=== PATIENT | male | born 1955 | race African-American/Black ===

== ENCOUNTER 2016-05-05 13:28 | Inpatient (IN) | payer OTHER ==
[2016-05-05] VITALS (7 sets, daily range): BP systolic 146–219; BP diastolic 79–135; PULSE 62–128; RESP 16–22; TEMP 97.2–98.2; O2SAT 96–100
[~2016-05-05] VITALS: Ht 180.3 cm; Wt 131.5 kg
[~2016-05-05 13:28] MED LIST: 1-ME1LIQ PO; ALDA100T PO; CEPH500T PO; CLOP75 PO; COZA100T PO; GLUCTAB PO; HYDR10SO PO; HYDR25TA35 PO; HYDR50TA15 PO; NAPR220T95 PO; OMEP20TA PO
[2016-05-05] MEDS ORDERED: AMLO5 PO (13:53)
[2016-05-05] MEDS ORDERED: HYDR25TA5 PO (13:53)
[2016-05-05] MEDS ORDERED: SPIR50TA PO (13:53)
[2016-05-05] MEDS ORDERED: METF500T PO (13:54)
--- NOTE | 2016-05-05 13:55 | PD ---
HPI Chief Complaint: Chest Pain Time Seen by Provider: 13:52 Travel History International Travel<30 days: No Contact w/Intl Traveler<30days: No Traveled to known affect area: No History of Present Illness HPI This report is in ERROR Please disregard this report and all prior copies ! This report is in ERROR Please disregard this report and all prior copies ! This report is in ERROR Please disregard this report and all prior copies ! PFSH Past Medical History Blood Disorders: No Cancer: No Cardiovascular Problems: Yes Congestive Heart Failure: Yes Diabetes: Yes Endocrine: Yes Genitourinary: No Hypertension: Yes Immune Disorder: No Musculoskeletal: No Neurologic: No Psychiatric: No Reproductive: No Respiratory: No Social History Alcohol Use: No Tobacco Use: No Substance Use: No Allergies-Medications (Allergen,Severity, Reaction): Coded Allergies: Penicillin (Verified Allergy, Mild, "I GO CRAZY", 09/01/15) Reported Meds & Prescriptions Reported Meds & Active Scripts Active Reported Plavix (Clopidogrel Bisulfate) 75 Mg Tab 75 Mg PO DAILY Metformin (Metformin HCl) 500 Mg Tab 500 Mg PO TIDPC With meals Spironolactone 50 Mg Tab Unknown Dose PO BIDPC Hydrochlorothiazide 25 Mg Tab 25 Mg PO DAILY Norvasc (Amlodipine Besylate) 5 Mg Tab Unknown Dose PO DAILY Review of Systems Except as stated in HPI: all other systems reviewed are Neg Physical Exam Narrative This report is in ERROR Please disregard this report and all prior copies ! This report is in ERROR Please disregard this report and all prior copies ! This report is in ERROR Please disregard this report and all prior copies ! Data Data Last Documented VS Vital Signs Date Time Temp Pulse Resp B/P Pulse Ox O2 Delivery O2 Flow Rate FiO2 05/05/16 14:00 97 Nasal Cannula 2 05/05/16 13:31 98.2 128 22 219/135 Orders Electrocardiogram (05/05/16 13:34) Complete Blood Count With Diff (05/05/16 13:34) Basic Metabolic Panel (Bmp) (05/05/16 13:34) Ckmb (Isoenzyme) Profile (05/05/16 13:34) Troponin I (05/05/16 13:34) Prothrombin Time / Inr (Pt) (05/05/16 13:46) Act Partial Throm Time (Ptt) (05/05/16 13:46) D-Dimer (05/05/16 13:46) Thyroid Stimulating Hormone (05/05/16 13:46) Chest, Single Ap (05/05/16 13:46) Aspirin (Aspirin) (05/05/16 14:00) B-Type Natriuretic Peptide (05/05/16 13:51) Ecg Monitoring (05/05/16 13:51) Bilateral Bp Monitoring (05/05/16 13:51) Iv Access Insert/Monitor (05/05/16 13:51) Oximetry (05/05/16 13:51) Oxygen Administration (05/05/16 13:51) Nitroglycerin Sl (Nitrostat Sl) (05/05/16 14:00) Heparin Inj (Heparin Inj) (05/05/16 13:57) Heparin Inj (Heparin Inj) (05/05/16 14:00) Heparin-Ns/Pf Inj (Heparin-Ns/Pf Inj) (05/05/16 14:06) Admit Order (Ed Use Only) (05/05/16 14:07) MDM Medical Decision Making Medical Screen Exam Complete: Yes Emergency Medical Condition: Yes Medical Record Reviewed: Yes Differential Diagnosis This report is in ERROR Please disregard this report and all prior copies ! This report is in ERROR Please disregard this report and all prior copies ! This report is in ERROR Please disregard this report and all prior copies ! Narrative Course This report is in ERROR Please disregard this report and all prior copies ! This report is in ERROR Please disregard this report and all prior copies ! This report is in ERROR Please disregard this report and all prior copies ! Geo Mullen May 05, 2016 13:55
[2016-05-05] MEDS ORDERED: HEPARIN SODIUM - IV 10,000 UNITS/10 ML VIAL ONE ×3 (13:57→15:54)
[2016-05-05] MEDS ORDERED: PLAV75TA29 PO (13:59)
[2016-05-05] MEDS ORDERED: HEPARIN SODIUM - IV 10,000 UNITS/10 ML VIAL IV ONE (14:00)
[2016-05-05] MEDS ORDERED: ASPIRIN 325 MG TAB PO ONE (14:00)
[2016-05-05] MEDS ORDERED: NITROGLYCERIN 0.4 MG SL 25 TABS/BTL SL ONE (14:00)
[2016-05-05] MEDS ORDERED: HEPARIN-NS/PF INJ 500 ML ONE (14:06)
--- NOTE | 2016-05-05 14:18 | RADRPT ---
EXAM DATE/TIME: 05/05/2016 14:02 [facility] COMPARISON: No previous studies available for comparison. INDICATIONS : STEMI ALERT. Chest pain. MEDICAL HISTORY : Diabetic SURGICAL HISTORY : Lumbar surgery. ENCOUNTER: Initial ACUITY: 1 day PAIN SCORE: 7/10 LOCATION: Bilateral chest FINDINGS: The cardiac silhouette is enlarged in transverse diameter. The lungs are free of acute parenchymal op acity. No effusions are identified. Osseous structures are intact. CONCLUSION: Cardiomegaly. No acute cardiopulmonary disease. Bobby Lamas MD on May 05, 2016 at 14:16 Board Certified Radiologist. This report was verified electronically.
[2016-05-05] MEDS ORDERED: IOHEXOL 350 MG/ML 100 ML BTL (for Cath Lab) OTHER ONE (14:20)
[2016-05-05] MEDS ORDERED: IOHEXOL 350 MG/ML 50 ML BTL (for Cath Lab) OTHER ONE (14:20)
[2016-05-05 14:28] LABS: AUTOMATED NEUTROPHIL # 4.8 TH/MM3 (1.8-7.7); BASOPHIL % 0.2 % (0.0-2.0); EOSINOPHIL # 0.1 TH/MM3 (0-0.4); EOSINOPHIL % 1.1 % (0.0-4.0); HEMATOCRIT 44.8 % (39.0-51.0); HEMO FLAGS DIFF FINAL; LYMPH % 22.8 % (9.0-44.0); LYMPHOCYTE # 1.6 TH/MM3 (1.0-4.8); MEAN CELL VOLUME 87.6 FL (80.0-100.0); MEAN CORPUSCULAR HEMOGLOBIN 29.1 PG (27.0-34.0); MEAN CORPUSCULAR HGB CONC 33.2 % (32.0-36.0); MONO % 5.8 % (0.0-8.0); NEUT % 70.1 % (16.0-70.0); PLATELET COUNT 225 TH/MM3 (150-450); RED BLOOD COUNT 5.12 MIL/MM3 (4.50-5.90); RED CELL DISTRIBUTION WIDTH 14.8 % (11.6-17.2); WHITE BLOOD COUNT 6.9 TH/MM3 (4.0-11.0)
--- NOTE | 2016-05-05 14:29 | PD ---
HPI Chief Complaint: Chest Pain Time Seen by Provider: 13:46 Travel History International Travel<30 days: No Contact w/Intl Traveler<30days: No Traveled to known affect area: No History of Present Illness HPI 61-year-old male came to the emergency room brought by his with history of chest pressure, syncopal episode, diaphoresis that's been going on since this morning. Patient says that he had the chest pain starting this morning along with shortness of breath. The chest pain was getting worse and at one point he passed out. Currently he has a chest pain like a pressure and it is 7 out of 10. Patient has history of coronary artery disease and says that he had a cardiac catheterization done 7 years ago. He says it was done by Dr. Morales. He is not sure whether he had a stent put in. Patient's blood pressure here is 180/95. Heart rate is in 120s. PFSH Past Medical History Narrative Medical List of his past medical history as reviewed from the nursing note. Blood Disorders: No Cancer: No Cardiovascular Problems: Yes Congestive Heart Failure: Yes Diabetes: Yes Patient Takes Glucophage: Yes Endocrine: Yes Genitourinary: No Hypertension: Yes Immune Disorder: No Musculoskeletal: No Neurologic: No Psychiatric: No Reproductive: No Respiratory: No Myocardial Infarction: Yes Past Surgical History Other Surgery: Yes (meniscus fix, back surgery) Social History Alcohol Use: No Tobacco Use: No Substance Use: No Allergies-Medications (Allergen,Severity, Reaction): Coded Allergies: Penicillin (Verified Allergy, Mild, "I GO CRAZY", 09/01/15) Comments List of his allergies reviewed from the nursing note. Reported Meds & Prescriptions Reported Meds & Active Scripts Active Reported Plavix (Clopidogrel Bisulfate) 75 Mg Tab 75 Mg PO DAILY Metformin (Metformin HCl) 500 Mg Tab 500 Mg PO TIDPC With meals Spironolactone 50 Mg Tab Unknown Dose PO BIDPC Hydrochlorothiazide 25 Mg Tab 25 Mg PO DAILY Norvasc (Amlodipine Besylate) 5 Mg Tab Unknown Dose PO DAILY Narrative Medication List of his home medications reviewed from the nursing note. Review of Systems Except as stated in HPI: all other systems reviewed are Neg Physical Exam Narrative GENERAL: Awake, alert, anxious, moderate distress, morbidly obese SKIN: Warm and dry. HEAD: Atraumatic. Normocephalic. EYES: Pupils equal and round. No scleral icterus. No injection or drainage. ENT: No nasal bleeding or discharge. Mucous membranes pink and moist. NECK: Trachea midline. No JVD. CARDIOVASCULAR: Regular rate and rhythm. Tachycardia. No murmur appreciated. RESPIRATORY: No accessory muscle use. Clear to auscultation. Breath sounds equal bilaterally. GASTROINTESTINAL: Abdomen soft, non-tender, nondistended. Hepatic and splenic margins not palpable. MUSCULOSKELETAL: No obvious deformities. No clubbing. No cyanosis. No edema. NEUROLOGICAL: Awake and alert. No obvious cranial nerve deficits. Motor grossly within normal limits. Normal speech. PSYCHIATRIC: Appropriate mood and affect; insight and judgment normal. Data Data Last Documented VS Vital Signs Date Time Temp Pulse Resp B/P Pulse Ox O2 Delivery O2 Flow Rate FiO2 05/05/16 14:00 97 Nasal Cannula 2 05/05/16 13:31 98.2 128 22 219/135 Orders Electrocardiogram (05/05/16 13:34) Complete Blood Count With Diff (05/05/16 13:34) Basic Metabolic Panel (Bmp) (05/05/16 13:34) Ckmb (Isoenzyme) Profile (05/05/16 13:34) Troponin I (05/05/16 13:34) Prothrombin Time / Inr (Pt) (05/05/16 13:46) Act Partial Throm Time (Ptt) (05/05/16 13:46) D-Dimer (05/05/16 13:46) Thyroid Stimulating Hormone (05/05/16 13:46) Chest, Single Ap (05/05/16 13:46) Aspirin (Aspirin) (05/05/16 14:00) B-Type Natriuretic Peptide (05/05/16 13:51) Ecg Monitoring (05/05/16 13:51) Bilateral Bp Monitoring (05/05/16 13:51) Iv Access Insert/Monitor (05/05/16 13:51) Oximetry (05/05/16 13:51) Oxygen Administration (05/05/16 13:51) Nitroglycerin Sl (Nitrostat Sl) (05/05/16 14:00) Heparin Inj (Heparin Inj) (05/05/16 13:57) Heparin Inj (Heparin Inj) (05/05/16 14:00) Heparin-Ns/Pf Inj (Heparin-Ns/Pf Inj) (05/05/16 14:06) Admit Order (Ed Use Only) (05/05/16 14:07) I-Stat Creatinine (05/05/16 13:46) I-Stat Profile (05/05/16 13:46) CKMB (05/05/16 13:35) CKMB% (05/05/16 13:35) Labs Laboratory Tests Test 05/05/16 13:35 White Blood Count 6.9 TH/MM3 Red Blood Count 5.12 MIL/MM3 Hemoglobin 14.9 GM/DL Bedside Hemoglobin 15.6 G/DL Hematocrit 44.8 % Bedside Hematocrit 46.0 % Mean Corpuscular Volume 87.6 FL Mean Corpuscular Hemoglobin 29.1 PG Mean Corpuscular Hemoglobin 33.2 % Concent Red Cell Distribution Width 14.8 % Platelet Count 225 TH/MM3 Mean Platelet Volume 8.6 FL Neutrophils (%) (Auto) 70.1 % Lymphocytes (%) (Auto) 22.8 % Monocytes (%) (Auto) 5.8 % Eosinophils (%) (Auto) 1.1 % Basophils (%) (Auto) 0.2 % Neutrophils # (Auto) 4.8 TH/MM3 Lymphocytes # (Auto) 1.6 TH/MM3 Monocytes # (Auto) 0.4 TH/MM3 Eosinophils # (Auto) 0.1 TH/MM3 Basophils # (Auto) 0.0 TH/MM3 CBC Comment DIFF FINAL Differential Comment Prothrombin Time 10.6 SEC Prothromb Time International 1.0 RATIO Ratio Activated Partial 26.1 SEC Thromboplast Time D-Dimer Quantitative (PE/DVT) 0.35 MG/L FEU Bedside Sodium 141 MMOL/L Sodium Level 141 MEQ/L Bedside Potassium 3.5 MMOL/L Potassium Level 3.6 MEQ/L Bedside Chloride 102 MMOL/L Chloride Level 105 MEQ/L Carbon Dioxide Level 28.7 MEQ/L Anion Gap 7 MEQ/L Bedside Blood Urea Nitrogen 13 MG/DL Blood Urea Nitrogen 13 MG/DL Creatinine 1.04 MG/DL Bedside Creatinine 0.9 MG/DL Estimat Glomerular Filtration 88 ML/MIN Rate Bedside Glucose 207 MG/DL Random Glucose 211 MG/DL Calcium Level 8.6 MG/DL Total Creatine Kinase 289 U/L Creatine Kinase MB 1.8 NG/ML Troponin I 0.05 NG/ML B-Type Natriuretic Peptide 105 PG/ML Thyroid Stimulating Hormone 1.340 uIU/ML 3rd Gen [facility] Medical Decision Making Medical Screen Exam Complete: Yes Emergency Medical Condition: Yes Medical Record Reviewed: Yes Interpretation(s) 12-lead was reviewed by me. Normal sinus rhythm, old anterior RI with ST elevations in V1 and V2 which is new since his last EKG which was from 2009. Heart rate of 115 bpm. Differential Diagnosis STEMI Narrative Course 2:25 PM given the changes noticed in the EKG and the chest pain being extremely typical for coronary artery disease I called a STEMI alert. I called for Dr. Morales since patient mentioned his name as his nanotechnology technician who had done the catheterization in 2009. Patient did mention that he did not see any nanotechnology technician since then and I mentioned this to Dr. Morales over the phone. Eventually he accepted the patient and asked for the patient to be sent up to the catheter lab. I was called by the catheter lab nurse 20 minutes ago and she let me note that according to the records they have, the catheter was done by Dr. Cruz and not Dr. Morales. They wanted the on-call STEMI doctor to be notified. Dr. Marcano was called and he mentioned that he was already aware of this change and he was heading to his the catheter lab. Patient meanwhile before leaving for the catheter lab had received 5000 units of heparin bolus and one aspirin. Critical Care Narrative Aggregate critical care time was 30 minutes. Time to perform other separately billable procedures was not included in the critical care time. My time did not include minutes spent treating any other patients simultaneously or on activities that did not directly contribute to the patient's treatment. The services I provided to this patient were to treat and/or prevent clinically significant deterioration that could result in: STEMI, hypertension I provided critical care services requiring my management, as noted below: Chart data review, documentation time, medication orders and management, vital sign assessments/reviewing monitor data, ordering and reviewing lab tests, ordering and interpreting/reviewing x-rays and diagnostic studies, care of the patient and discussion of the patient with the admitting physicians. Procedures EKG Prior to Arrival: Yes Physician Communication Physician Communication Dr. Jeet Maria Diagnosis Primary Impression: Subsequent ST elevation (STEMI) myocardial infarction of anterior wall Admitting Information Admitting Physician Requests: Admit Vitor Wilhelm MD May 05, 2016 14:29
[2016-05-05] MEDS ORDERED: MIDAZOLAM HCL 2 MG/2 ML VIAL ONE ×2 (14:30→16:29)
[2016-05-05] MEDS ORDERED: VERAPAMIL HCL 5 MG/2 ML VIAL ONE (14:31)
[2016-05-05 14:35] LABS: I-STAT POTASSIUM 3.5 MMOL/L (3.5-4.9)
[2016-05-05] MEDS ORDERED: hydrALAZINE HCL 20 MG/ML VIAL ONE (14:42)
[2016-05-05 14:51] LABS: APTT (PATIENT) 26.1 SEC (24.3-30.1); PROTHROMBIN TIME - PATIENT 10.6 SEC (9.8-11.6)
[2016-05-05 14:55] LABS: ANION GAP 7 MEQ/L (5-15); BICARBONATE 28.7 MEQ/L (21.0-32.0); BLOOD UREA NITROGEN 13 MG/DL (7-18); CHLORIDE 105 MEQ/L (98-107); GLOMERULAR FILTRATION RATE 88 ML/MIN (>89); POTASSIUM 3.6 MEQ/L (3.5-5.1); SODIUM (NA) 141 MEQ/L (136-145)
[2016-05-05 14:59] LABS: CREATINE KINASE 289 U/L (39-308)
[2016-05-05 15:11] LABS: CKMB 1.8 NG/ML (0.5-3.6)
[2016-05-05] MEDS ORDERED: ADENOSINE STRESS TEST INJ 90 MG/30 ML VIAL ONE (16:01)
[2016-05-05] MEDS ORDERED: ONDANSETRON HCL 4 MG/2 ML VIAL ONE (16:10)
[2016-05-05] MEDS ORDERED: MIDAZOLAM HCL 5 MG/5 ML VIAL ONE ×2 (16:15→16:30)
[2016-05-05] MEDS ORDERED: LABETALOL HCL 100 MG/20 ML VIAL ONE (16:30)
[2016-05-05] MEDS ORDERED: fentaNYL CITRATE 250 MCG/5 ML AMP ONE (16:31)
[2016-05-05] MEDS ORDERED: ATROPINE SULFATE 1 MG/10 ML SYRINGE ONE (16:40)
[2016-05-05 17:06] LABS: BLOOD GAS BASE EXCESS -2.1 mmol/L (-2-2); BLOOD GAS CARBOXYHEMOGLOBIN 1.2 % (0-4); BLOOD GAS HCO3 24 mmol/L (22-26); BLOOD GAS METHEMOGLOBIN 1.1 % (0-2); BLOOD GAS O2 HGB SATURATION 89 % (90-100); BLOOD GAS OXYGEN CONTENT 17.4 Vol % (12.0-20.0); BLOOD GAS PCO2 56 mmHg (38-42); BLOOD GAS PO2 70 mmHg (61-120); BLOOD GAS TOTAL HGB 13.9 G/DL (12.0-16.0); CRITICAL VALUE YES; TEMP CORR TO 98.6
[2016-05-05 17:07] LABS: DRAW SITE ALINE; FIO2 100 %; OXYGEN DEVICE VENTILATOR; STAT YES; VENT SETTINGS SEE COMMENTS
[2016-05-05] MEDS: SODIUM CHLOR 0.9% 1000 ML INJ 1,000 ML IV SCH (17:13)
[2016-05-05] MEDS ORDERED: MAGNESIUM SULFATE INJ 4 GM in SODIUM CHLORIDE 0.9% INJ 92 ML IV PRN (17:15)
[2016-05-05] MEDS ORDERED: MAGNESIUM SULFATE INJ 2 GM in SODIUM CHLORIDE 0.9% INJ 96 ML IV PRN (17:15)
[2016-05-05] MEDS ORDERED: POTASSIUM PHOSPHATE INJ 30 MMOL in SODIUM CHLOR 0.9% 250 ML INJ 250 ML IV PRN (17:15)
[2016-05-05] MEDS ORDERED: CHLORHEXIDINE GLUCONATE 2 % 1 PACK (2 CLOTHS) TOP PRN (17:15)
[2016-05-05] MEDS ORDERED: SODIUM PHOSPHATE INJ 30 MMOL in SODIUM CHLOR 0.9% 250 ML INJ 240 ML IV PRN (17:15)
[2016-05-05] MEDS ORDERED: MISCELLANEOUS NURSING INFORMATION XX SCH (17:15)
[2016-05-05] MEDS ORDERED: POTASSIUM CHLOR 40 MEQ PREMIX 100 ML IV PRN (17:15)
[2016-05-05] MEDS ORDERED: POTASSIUM PHOSPHATE MONOBASIC 500 MG TAB PO/TUBE PRN (17:15)
[2016-05-05] MEDS ORDERED: POTASSIUM PHOSPHATE MONOBASIC 500 MG TAB PO PRN (17:15)
[2016-05-05] MEDS ORDERED: POTASSIUM CL 40 MEQ/30 ML LIQ UDC PO/TUBE PRN ×2 (17:15)
[2016-05-05] MEDS ORDERED: MAGNESIUM OXIDE 400 MG TAB PO PRN (17:15)
[2016-05-05] MEDS ORDERED: POTASSIUM CHLOR 20 MEQ PREMIX 100 ML IV PRN (17:15)
[2016-05-05] MEDS ORDERED: SENNOSIDES 8.6 MG TAB PO PRN (17:15)
[2016-05-05] MEDS ORDERED: GLUCAGON 1 MG/ML VIAL OTHER PRN (17:15)
[2016-05-05] MEDS ORDERED: DEXTROSE 50% IN WATER 50 ML VIAL(D50) IV PUSH PRN (17:15)
[2016-05-05] MEDS ORDERED: MISC INFORMATION XX ONE ×2 (17:30)
[2016-05-05] MEDS ORDERED: SODIUM CHLORIDE 0.9% FLUSH 5 ML FLUSH IVF PRN ×2 (17:30)
--- NOTE | 2016-05-05 17:30 | PD.CONS ---
[facility] Service Critical Care Medicine Consult Requested By Dr. Marcano Reason for Consult Hypertensive crisis/acute hypoxemia Primary Care Physician Bobby Olivera MD History of Present Illness 61-year-old AA male. Date of admission 05/05/2016. Date of consultation 2016. Past medical history includes hypertensive heart disease, hypertension, diabetes mellitus type 2 and spinal stenosis. He presented to [facility] today with history of acute onset of diaphoresis, chest pain and syncope. Her documentation, Chest pain was 7 out of 10 without radiation. Later in the hospital physician, patient did have ST elevation anterior septal leads. I he had a cardiac catheterization in 2009 which revealed moderate coronary disease which documented 50-60% stenosis in the LAD diagonals 1 and 2. Recommended medical management at that time. Dr. Marcano was notified and proceed to the cardiac catheter lab. Patient sees heparin and one aspirin prior to cardiac catheterization. During heart catheterization,, patient became hypertensive, tachypneic, hypoxic and agitated including abdominal pain with nausea and vomiting. Patient was intubated by Dr. Simon and dispensed transferred to room 505a. Currently hemodynamic stable on a propofol drip. 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 No history of alcohol tobacco or IV drug use. Physical Exam Vital Signs Vital Signs Date Time Temp Pulse Resp B/P Pulse Ox O2 Delivery O2 Flow Rate FiO2 05/05/16 16:55 100 100 05/05/16 14:00 97 Nasal Cannula 2 05/05/16 13:31 98.2 128 22 219/135 96 Physical Exam GENERAL: 61-year-old AA male, critically ill currently in bed in no acute distress SKIN: Warm and dry. No rash HEAD: Atraumatic. Normocephalic. EYES: Pupils equal and round around 2 mm bilaterally and reactive. No scleral icterus. No injection or drainage. ENT: No nasal bleeding or discharge. Mucous membranes pink and moist. NECK: Trachea midline. No JVD. CARDIOVASCULAR: Distant due to body habitus. Regular rate and rhythm. S1, S2. No S4. Without murmur RESPIRATORY: Diminished breath sounds bilaterally due to body habitus. Breath sounds equal bilaterally. GASTROINTESTINAL: Abdomen obese, non-tender, protuberant. Hypoactive bowel sounds are appreciated MUSCULOSKELETAL: Extremities without significant peripheral edema. He has a femoral sheath in the right inguinal region No obvious deformities. NEUROLOGICAL: Sedated on the ventilator currently. Was arousable moving all 4 extremities spontaneously however became hypoxic Laboratory Laboratory Tests Test 05/05/16 05/05/16 13:35 16:55 White Blood Count 6.9 Red Blood Count 5.12 Hemoglobin 14.9 Bedside Hemoglobin 15.6 Hematocrit 44.8 Bedside Hematocrit 46.0 Mean Corpuscular Volume 87.6 Mean Corpuscular Hemoglobin 29.1 Mean Corpuscular Hemoglobin 33.2 Concent Red Cell Distribution Width 14.8 Platelet Count 225 Mean Platelet Volume 8.6 Neutrophils (%) (Auto) 70.1 Lymphocytes (%) (Auto) 22.8 Monocytes (%) (Auto) 5.8 Eosinophils (%) (Auto) 1.1 Basophils (%) (Auto) 0.2 Neutrophils # (Auto) 4.8 Lymphocytes # (Auto) 1.6 Monocytes # (Auto) 0.4 Eosinophils # (Auto) 0.1 Basophils # (Auto) 0.0 CBC Comment DIFF FINAL Differential Comment Prothrombin Time 10.6 Prothromb Time International 1.0 Ratio Activated Partial 26.1 Thromboplast Time D-Dimer Quantitative (PE/DVT) 0.35 Bedside Sodium 141 Sodium Level 141 Bedside Potassium 3.5 Potassium Level 3.6 Bedside Chloride 102 Chloride Level 105 Carbon Dioxide Level 28.7 Anion Gap 7 Bedside Blood Urea Nitrogen 13 Blood Urea Nitrogen 13 Creatinine 1.04 Bedside Creatinine 0.9 Estimat Glomerular Filtration 88 Rate Bedside Glucose 207 Random Glucose 211 Calcium Level 8.6 Total Creatine Kinase 289 Creatine Kinase MB 1.8 Troponin I 0.05 B-Type Natriuretic Peptide 105 Thyroid Stimulating Hormone 1.340 3rd Gen Blood Gas Puncture Site AILEEN Blood Gas Patient Temperature 98.6 Blood Gas HCO3 24 Blood Gas Base Excess -2.1 Blood Gas Oxygen Saturation 89 Arterial Blood pH 7.26 Arterial Blood Partial 56 Pressure CO2 Arterial Blood Partial 70 Pressure O2 Arterial Blood Oxygen Content 17.4 Arterial Blood 1.2 Carboxyhemoglobin Arterial Blood Methemoglobin 1.1 Blood Gas Hemoglobin 13.9 Oxygen Delivery Device VENTILATOR Blood Gas Ventilator Setting SEE COMMENTS Blood Gas Inspired Oxygen 100 Result Diagram: 05/05/16 1335 05/05/16 1335 Imaging Last Impressions Chest X-Ray 05/05/16 1346 Signed Impressions: Service Date/Time: Thursday, May 05, 2016 14:02 - CONCLUSION: Cardiomegaly. No acute cardiopulmonary disease. 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 Moy. No intervention performed. Known coronary artery artery disease to the first and second diagonals the LAD. Resume aspirin 81 mg daily and Plavix 75 mg daily. Start Lipitor 20 mg a night. Check lipid panel in a.m. Currently holding home medications of hydrochlorothiazide 25 mg daily, spironolactone 50 mg twice a day and Norvasc 5 mg by mouth in light of blood pressures currently in the 100s. Patient's baseline blood pressures in the 170s and do not want to induce ischemia. Resp: Acute hypoxemic respiratory failure ACV 14/700/5/100 Ventilator bundle As needed bronchodilator therapy Chest x-ray reveals cardiomegaly but no other acute cardio pulmonary findings GI: Patient is currently nothing by mouth OG tube will be placed Protonix for GI prophylaxis Colace for bowel regimen : Chaudhry will be placed for accurate I's and O's in a critically ill patient Endo: Diabetes mellitus type 2 Holding metformin 500 mg by mouth 3 times a day light of recent diet 48 hours. Sliding-scale insulin Accu-Cheks to maintain euglycemia. Low regimen every 6 hours Renal: Creatinine currently within normal limits. Currently normal saline 84 cc an hour. Monitor BMP in a.m. Heme: CBC currently within normal limits. Serial hemoglobins every 6 hours rule out RP bleed per cardiology request. ID: Monitor for infection FEN: Electrolyte protocol initiated. Replace as clinically indicated MSK: History of spinal stenosis/laminectomy/left total knee replacement and left ring finger amputation PT evaluate and treat Access - Utilize peripheral IV./Central line if indicated Prophylaxis - GI - Protonix - DVT - SCD/pharmacological prophylaxis possible RP bleed Critical Care: The total critical care time was 65 minutes. Time to perform other separately billable procedures was not included in the critical care time. Code Status Full code Discussed Condition With Dr. Marcano/cardiology. He discussed with family directly. 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 Care plan discussed. All questions answered. Brett Abrams MD May 05, 2016 17:30
[2016-05-05] MEDS: ARTIFICIAL TEARS OPTH SOLN 15 ML BTL EACH EYE SCH (18:00)
[2016-05-05] MEDS: INSULIN NovoLIN REGULAR SUPPLEMENTAL SCALE SQ SCH (18:00)
[2016-05-05 18:11] LABS: BLOOD GAS BASE EXCESS -1.3 mmol/L (-2-2); BLOOD GAS CARBOXYHEMOGLOBIN 1.4 % (0-4); BLOOD GAS HCO3 23 mmol/L (22-26); BLOOD GAS METHEMOGLOBIN 1.1 % (0-2); BLOOD GAS O2 HGB SATURATION 95 % (90-100); BLOOD GAS OXYGEN CONTENT 18.9 Vol % (12.0-20.0); BLOOD GAS PCO2 40 mmHg (38-42); BLOOD GAS PO2 102 mmHg (61-120); TEMP CORR TO 98.6
[2016-05-05 18:12] LABS: CRITICAL VALUE NO; DRAW SITE ALINE; FIO2 100 %; OXYGEN DEVICE VENTILATOR; STAT NO; VENT SETTINGS A/C700/16/PEEP5
[2016-05-05 20:48] LABS: HEMATOCRIT 40.9 % (39.0-51.0); REVIEW FLAG FINAL
[2016-05-05] MEDS ORDERED: SODIUM CHLORIDE 0.9% FLUSH 5 ML FLUSH IVF SCH ×2 (21:00)
[2016-05-05] MEDS: DOCUSATE SODIUM 100 MG CAP PO SCH (21:00)
[2016-05-05] MEDS: PROPOFOL 1000 MG/100 ML INJ 100 ML IV SCH ×2 (21:20→23:48)
[2016-05-05] MEDS: fentaNYL DRIP 250 ML IV SCH (21:21)
[2016-05-05] MEDS: SODIUM CHLORIDE 0.9% FLUSH 5 ML FLUSH IV FLUSH SCH (21:21)
--- NOTE | 2016-05-05 21:51 | RADRPT ---
EXAM DATE/TIME: 05/05/2016 17:23 [facility] COMPARISON: CHEST SINGLE AP, May 05, 2016, 14:02. INDICATIONS : Stemi alert. Intubation. MEDICAL HISTORY : None. SURGICAL HISTORY : None. ENCOUNTER: Initial ACUITY: 1 day PAIN SCORE: Non-responsive. LOCATION: Bilateral chest FINDINGS: Endotracheal tube tip in satisfactory position. Mild perihilar and basilar airspace disease. Heart si ze mildly enlarged. No pneumothorax. CONCLUSION: 1. Endotracheal tube in satisfactory position. Marek Bowers MD on May 05, 2016 at 21:50 Board Certified Radiologist. This report was verified electronically.
[2016-05-06] VITALS (19 sets, daily range): BP systolic 118–137; BP diastolic 69–84; PULSE 54–91; RESP 16–22; TEMP 97.5–98.8; O2SAT 97–100
[2016-05-06] MEDS: PROPOFOL 1000 MG/100 ML INJ 100 ML IV SCH ×4 (02:21→20:56)
[2016-05-06 03:45] LABS: AUTOMATED NEUTROPHIL # 3.8 TH/MM3 (1.8-7.7); BASOPHIL % 0.6 % (0.0-2.0); EOSINOPHIL # 0.1 TH/MM3 (0-0.4); EOSINOPHIL % 1.5 % (0.0-4.0); HEMATOCRIT 40.6 % (39.0-51.0); HEMO FLAGS DIFF FINAL; LYMPHOCYTE # 1.7 TH/MM3 (1.0-4.8); MEAN CELL VOLUME 87.5 FL (80.0-100.0); MEAN CORPUSCULAR HEMOGLOBIN 29.3 PG (27.0-34.0); MEAN CORPUSCULAR HGB CONC 33.5 % (32.0-36.0); MONO % 7.4 % (0.0-8.0); NEUT % 62.5 % (16.0-70.0); PLATELET COUNT 190 TH/MM3 (150-450); RED BLOOD COUNT 4.64 MIL/MM3 (4.50-5.90); RED CELL DISTRIBUTION WIDTH 14.9 % (11.6-17.2)
[2016-05-06 03:55] LABS: APTT (PATIENT) 25.1 SEC (24.3-30.1); PROTHROMBIN TIME - PATIENT 11.4 SEC (9.8-11.6)
[2016-05-06] MEDS: CHLORHEXIDINE GLUCONATE 2 % 1 PACK (2 CLOTHS) TOP SCH (04:00)
[2016-05-06 04:28] LABS: ALKALINE PHOSPHATASE 60 U/L (45-117); ALT (GPT) 17 U/L (12-78); ANION GAP 9 MEQ/L (5-15); AST (GOT) 15 U/L (15-37); BICARBONATE 25.9 MEQ/L (21.0-32.0); BLOOD UREA NITROGEN 13 MG/DL (7-18); CHLORIDE 108 MEQ/L (98-107); GLOMERULAR FILTRATION RATE 99 ML/MIN (>89); HDL CHOLESTEROL 48.9 MG/DL (40.0-60.0); LDL CHOLESTEROL 68 MG/DL (0-99); MAGNESIUM 1.6 MG/DL (1.5-2.5); POTASSIUM 3.1 MEQ/L (3.5-5.1); SODIUM (NA) 143 MEQ/L (136-145); TOTAL BILIRUBIN ADULT 0.3 MG/DL (0.2-1.0)
[2016-05-06] MEDS ORDERED: EPINEPHrine HCL (1:10,000) 1 MG/10 ML SYRINGE IV ONE (05:00)
[2016-05-06] MEDS: POTASSIUM CHLOR 20 MEQ PREMIX 100 ML IV PRN ×3 (05:04→09:00)
[2016-05-06] MEDS: SODIUM CHLOR 0.9% 1000 ML INJ 1,000 ML IV SCH ×2 (05:10→17:03)
[2016-05-06] MEDS: INSULIN NovoLIN REGULAR SUPPLEMENTAL SCALE SQ SCH ×4 (06:00→18:00)
[2016-05-06] MEDS: DOCUSATE SODIUM 100 MG CAP PO SCH ×2 (09:00→20:07)
[2016-05-06] MEDS: SODIUM CHLORIDE 0.9% FLUSH 5 ML FLUSH IV FLUSH SCH ×2 (09:00→20:07)
[2016-05-06] MEDS: ARTIFICIAL TEARS OPTH SOLN 15 ML BTL EACH EYE SCH ×3 (09:00→18:00)
[2016-05-06] MEDS: CLOPIDOGREL 75 MG TAB PO SCH (09:00)
[2016-05-06] MEDS: ATORVASTATIN 20 MG TAB PO SCH (09:00)
[2016-05-06] MEDS: PANTOPRAZOLE SODIUM 40 MG VIAL IV SCH (09:00)
[2016-05-06] MEDS: ASPIRIN 81 MG CHEW TAB CHEW SCH (09:00)
--- NOTE | 2016-05-06 09:03 | PD.CARD.PN ---
Subjective Subjective Remarks Stable over night on the vent, when sedation decreased moving all extremities Objective Medications Current Medications Medications (Trade) Dose Ordered Sig/Isabelle Route Start Time Stop Time Status Last Admin (NS 1000 ml Inj) 1,000 ml @ 84 mls/hr [id number] IV 05/05/16 17:13 05/06/16 05:10 (Tylenol) 650 mg Q6H PRN PO 05/05/16 17:15 (Protonix Inj) 40 mg DAILY IV 05/06/16 09:00 (Tears Naturale Opth Soln) 1 drop TID EACH EYE 05/05/16 18:00 05/05/16 18:00 (Zofran Inj) 4 mg Q6H PRN IV 05/05/16 17:15 (Colace) 100 mg BID PO 05/05/16 21:00 (Senokot) 17.2 mg Q12H PRN PO 05/05/16 17:15 Miscellaneous Information 1 Q361D XX 05/05/16 17:15 05/05/16 17:15 (Chlorhexidine 2% Cloth) 3 pack Taper DAILY@04 TOP 05/06/16 04:00 05/02/17 03:59 05/06/16 04:00 Chlorhexidine Gluconate 3 pack 3 pack UNSCH PRN TOP 05/05/16 17:15 Propofol 100 ml @ 0 mls/hr TITRATE IV 05/05/16 17:15 05/06/16 06:08 Fentanyl Citrate 250 ml @ 0 mls/hr TITRATE IV 05/05/16 17:15 05/05/16 21:21 Potassium Chloride 100 ml @ 50 mls/hr Q2H PRN IV 05/05/16 17:15 (KCl 20 Meq Premix Inj) 100 ml @ 50 mls/hr Q2H PRN IV 05/05/16 17:15 05/06/16 07:09 Potassium Chloride 40 meq 40 meq UNSCH PRN PO/TUBE 05/05/16 17:15 Potassium Chloride 100 ml @ 25 mls/hr UNSCH PRN IV 05/05/16 17:15 Potassium Chloride 100 ml @ 50 mls/hr Q2H PRN IV 05/05/16 17:15 (Magnesium Sulfate Inj/NS Inj) 100 ml @ 50 mls/hr UNSCH PRN IV 05/05/16 17:15 Magnesium Oxide 800 mg 800 mg UNSCH PRN PO 05/05/16 17:15 05/06/16 05:25 (Magnesium Sulfate Inj/NS Inj) 100 ml @ 50 mls/hr UNSCH PRN IV 05/05/16 17:15 Potassium Phosphate 2000 mg 2,000 mg Q4H PRN PO 05/05/16 17:15 (Sodium Phosphate Inj/NS 250 ml Inj) 250 ml @ 42 mls/hr UNSCH PRN IV 05/05/16 17:15 (KCl 40 Meq/30 ml Liq) 40 meq UNSCH PRN PO/TUBE 05/05/16 17:15 Potassium Phosphate 2000 mg 2,000 mg UNSCH PRN PO/TUBE 05/05/16 17:15 (Potassium Phosphate Inj/NS 250 ml Inj) 260 ml @ 42 mls/hr UNSCH PRN IV 05/05/16 17:15 (D50w (Vial) Inj) 25 ml UNSCH PRN IV PUSH 05/05/16 17:15 (Glucagon Inj) 1 mg UNSCH PRN OTHER 05/05/16 17:15 (NovoLIN R SUPPLEMENTAL SCALE) 1 Q6HR SQ 05/05/16 18:00 (Aspirin Chew) 81 mg DAILY CHEW 05/06/16 09:00 (Plavix) 75 mg DAILY PO 05/06/16 09:00 (Lipitor) 20 mg DAILY PO 05/06/16 09:00 Vital Signs / I&O Vital Signs Date Time Temp Pulse Resp B/P Pulse Ox O2 Delivery O2 Flow Rate FiO2 05/06/16 08:00 57 05/06/16 08:00 60 05/06/16 08:00 98.4 54 16 118/73 97 05/06/16 07:35 99 45 05/06/16 06:00 57 05/06/16 04:06 97 60 05/06/16 04:00 57 05/06/16 04:00 98.2 57 16 135/84 97 05/06/16 04:00 60 05/06/16 02:00 59 05/06/16 01:08 99 70 05/06/16 00:00 97.5 57 16 123/75 99 05/06/16 00:00 100 05/06/16 00:00 57 05/05/16 22:08 100 100 05/05/16 22:00 62 05/05/16 20:00 64 05/05/16 20:00 100 05/05/16 20:00 97.2 64 16 146/79 99 05/05/16 18:00 66 05/05/16 16:56 97 100 05/05/16 16:55 100 100 05/05/16 14:00 97 Nasal Cannula 2 05/05/16 13:31 98.2 128 22 219/135 96 I/O 05/05/16 05/05/16 05/05/16 05/06/16 05/06/16 05/06/16 07:00 15:00 23:00 07:00 15:00 23:00 Intake Total 452 ml 1176 ml Output Total 750 ml 250 ml Balance -298 ml 926 ml Intake IV Total 452 ml 1116 ml Other 60 ml Output Urine Total 750 ml 250 ml Physical Exam GENERAL: Sedated on the vent SKIN: Warm and dry. HEAD: Atraumatic. Normocephalic. EYES: Pupils equal and round. No scleral icterus. No injection or drainage. ENT: No nasal bleeding or discharge. Mucous membranes pink and moist. NECK: Trachea midline. No JVD. CARDIOVASCULAR: Regular rate and rhythm. RESPIRATORY: No accessory muscle use. Decreased breath sounds bilaterally GASTROINTESTINAL: Abdomen soft, non-tender, nondistended. Hepatic and splenic margins not palpable. MUSCULOSKELETAL: Extremities without clubbing, cyanosis, or edema. No obvious deformities. Right radial no hematoma. Right femoral no hematoma/bruit noted NEUROLOGICAL: Awake and alert. No obvious cranial nerve deficits. Motor grossly within normal limits. Five out of 5 muscle strength in the arms and legs. Normal speech. PSYCHIATRIC: Appropriate mood and affect; insight and judgment normal. Laboratory Laboratory Tests Test 05/05/16 05/05/16 05/05/16 05/05/16 13:35 16:55 18:00 18:01 White Blood Count 6.9 TH/MM3 Red Blood Count 5.12 MIL/MM3 Hemoglobin 14.9 GM/DL Bedside Hemoglobin 15.6 G/DL Hematocrit 44.8 % Bedside Hematocrit 46.0 % Mean Corpuscular Volume 87.6 FL Mean Corpuscular Hemoglobin 29.1 PG Mean Corpuscular Hemoglobin 33.2 % Concent Red Cell Distribution Width 14.8 % Platelet Count 225 TH/MM3 Mean Platelet Volume 8.6 FL Neutrophils (%) (Auto) 70.1 % Lymphocytes (%) (Auto) 22.8 % Monocytes (%) (Auto) 5.8 % Eosinophils (%) (Auto) 1.1 % Basophils (%) (Auto) 0.2 % Neutrophils # (Auto) 4.8 TH/MM3 Lymphocytes # (Auto) 1.6 TH/MM3 Monocytes # (Auto) 0.4 TH/MM3 Eosinophils # (Auto) 0.1 TH/MM3 Basophils # (Auto) 0.0 TH/MM3 CBC Comment DIFF FINAL Differential Comment Prothrombin Time 10.6 SEC Prothromb Time International 1.0 RATIO Ratio Activated Partial 26.1 SEC Thromboplast Time D-Dimer Quantitative (PE/DVT) 0.35 MG/L FEU Bedside Sodium 141 MMOL/L Sodium Level 141 MEQ/L Bedside Potassium 3.5 MMOL/L Potassium Level 3.6 MEQ/L Bedside Chloride 102 MMOL/L Chloride Level 105 MEQ/L Carbon Dioxide Level 28.7 MEQ/L Anion Gap 7 MEQ/L Bedside Blood Urea Nitrogen 13 MG/DL Blood Urea Nitrogen 13 MG/DL Creatinine 1.04 MG/DL Bedside Creatinine 0.9 MG/DL Estimat Glomerular Filtration 88 ML/MIN Rate Bedside Glucose 207 MG/DL Random Glucose 211 MG/DL Calcium Level 8.6 MG/DL Total Creatine Kinase 289 U/L Creatine Kinase MB 1.8 NG/ML Troponin I 0.05 NG/ML B-Type Natriuretic Peptide 105 PG/ML Thyroid Stimulating Hormone 1.340 uIU/ML 3rd Gen Blood Gas Puncture Site [facility] Blood Gas Patient Temperature 98.6 98.6 Blood Gas HCO3 24 mmol/L 23 mmol/L Blood Gas Base Excess -2.1 mmol/L -1.3 mmol/L Blood Gas Oxygen Saturation 89 % 95 % Arterial Blood pH 7.26 7.38 Arterial Blood Partial 56 mmHg 40 mmHg Pressure CO2 Arterial Blood Partial 70 mmHg 102 mmHg Pressure O2 Arterial Blood Oxygen Content 17.4 Vol % 18.9 Vol % Arterial Blood 1.2 % 1.4 % Carboxyhemoglobin Arterial Blood Methemoglobin 1.1 % 1.1 % Blood Gas Hemoglobin 13.9 G/DL 14.0 G/DL Oxygen Delivery Device VENTILATOR VENTILATOR Blood Gas Ventilator Setting SEE COMMENTS A/C700/16/[id number] Blood Gas Inspired Oxygen 100 % 100 % Nasal Screen MRSA (PCR) NEGATIVE Test 05/05/16 05/05/16 05/06/1617 18:20 20:37 01:08 03:26 Hemoglobin 13.8 GM/DL 13.6 GM/DL Hematocrit 40.9 % 40.6 % Troponin I 0.06 NG/ML 0.06 NG/ML White Blood Count 6.0 TH/MM3 Red Blood Count 4.64 MIL/MM3 Mean Corpuscular Volume 87.5 FL Mean Corpuscular Hemoglobin 29.3 PG Mean Corpuscular Hemoglobin 33.5 % Concent Red Cell Distribution Width 14.9 % Platelet Count 190 TH/MM3 Mean Platelet Volume 8.0 FL Neutrophils (%) (Auto) 62.5 % Lymphocytes (%) (Auto) 28.0 % Monocytes (%) (Auto) 7.4 % Eosinophils (%) (Auto) 1.5 % Basophils (%) (Auto) 0.6 % Neutrophils # (Auto) 3.8 TH/MM3 Lymphocytes # (Auto) 1.7 TH/MM3 Monocytes # (Auto) 0.4 TH/MM3 Eosinophils # (Auto) 0.1 TH/MM3 Basophils # (Auto) 0.0 TH/MM3 CBC Comment DIFF FINAL Differential Comment Prothrombin Time 11.4 SEC Prothromb Time International 1.0 RATIO Ratio Activated Partial 25.1 SEC Thromboplast Time Sodium Level 143 MEQ/L Potassium Level 3.1 MEQ/L Chloride Level 108 MEQ/L Carbon Dioxide Level 25.9 MEQ/L Anion Gap 9 MEQ/L Blood Urea Nitrogen 13 MG/DL Creatinine 0.94 MG/DL Estimat Glomerular Filtration 99 ML/MIN Rate Random Glucose 99 MG/DL Lactic Acid Level 2.2 mmol/L Calcium Level 8.1 MG/DL Phosphorus Level 3.6 MG/DL Magnesium Level 1.6 MG/DL Total Bilirubin 0.3 MG/DL Aspartate Amino Transf 15 U/L (AST/SGOT) Alanine Aminotransferase 17 U/L (ALT/SGPT) Alkaline Phosphatase 60 U/L Total Protein 5.7 GM/DL Albumin 3.1 GM/DL Triglycerides Level 124 MG/DL Cholesterol Level 142 MG/DL LDL Cholesterol 68 MG/DL HDL Cholesterol 48.9 MG/DL Cholesterol/HDL Ratio 2.90 RATIO Assessment and Plan Problem List: (1) Hypertensive emergency (2) Acute hypoxemic respiratory failure (3) Diabetes mellitus (4) CAD (coronary artery disease) Assessment and Plan 1) HTN emergency, concern for possible STEMI 2) Cardiac cath showing mild to moderate CAD 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
[2016-05-06 16:18] LABS: BLOOD GAS BASE EXCESS -3.2 mmol/L (-2-2); BLOOD GAS CARBOXYHEMOGLOBIN 1.1 % (0-4); BLOOD GAS HCO3 22 mmol/L (22-26); BLOOD GAS METHEMOGLOBIN 1.2 % (0-2); BLOOD GAS O2 HGB SATURATION 97 % (90-100); BLOOD GAS PCO2 41 mmHg (38-42); BLOOD GAS PO2 168 mmHg (61-120); BLOOD GAS TOTAL HGB 15.2 G/DL (12.0-16.0); CRITICAL VALUE NO; OXYGEN DEVICE VENTILATOR; TEMP CORR TO 98.6
[2016-05-06 16:19] LABS: DRAW SITE RT RADIAL; FIO2 100 %; NUMBER OF ARTERIAL PUNCTURES 1; STAT YES; ULNAR PULSE PRESENT; VENT SETTINGS A/C16/700/8PEEP
--- NOTE | 2016-05-06 16:42 | RADRPT ---
EXAM DATE/TIME: 05/06/2016 16:15 [facility] COMPARISON: CHEST SINGLE AP, May 05, 2016, 17:23. INDICATIONS : Respiratory failure. MEDICAL HISTORY : None. SURGICAL HISTORY : None. ENCOUNTER: Subsequent ACUITY: 2 days PAIN SCORE: Non-responsive. LOCATION: Bilateral chest FINDINGS: The ET tube and NG tube are well placed. The heart size is borderline enlarged. There is increased density at the left base with silhouetting of the left hemidiaphragm. The right lung appears grossly clear. CONCLUSION: 1. Left base consolidation or atelectasis. 2. Borderline cardiomegaly. Low Salas MD on May 06, 2016 at 16:37 Board Certified Radiologist. This report was verified electronically.
[2016-05-06 17:04] LABS: HEMATOCRIT 40.2 % (39.0-51.0); MEAN CORPUSCULAR HEMOGLOBIN 29.2 PG (27.0-34.0); MEAN CORPUSCULAR HGB CONC 33.2 % (32.0-36.0); PLATELET COUNT 184 TH/MM3 (150-450); RED BLOOD COUNT 4.56 MIL/MM3 (4.50-5.90); RED CELL DISTRIBUTION WIDTH 14.8 % (11.6-17.2); REVIEW FLAG FINAL; WHITE BLOOD COUNT 9.1 TH/MM3 (4.0-11.0)
--- NOTE | 2016-05-06 17:05 | HHI.CCPN ---
Subjective Remarks/Hospital Course 61-year-old AA male. Date of admission 05/05/2016. Date of consultation 2016. Past medical history includes hypertensive heart disease, hypertension, diabetes mellitus type 2 and spinal stenosis. He presented to [facility] today with history of acute onset of diaphoresis, chest pain and syncope. Her documentation, Chest pain was 7 out of 10 without radiation. Later in the hospital physician, patient did have ST elevation anterior septal leads. I he had a cardiac catheterization in 2009 which revealed moderate coronary disease which documented 50-60% stenosis in the LAD diagonals 1 and 2. Recommended medical management at that time. Dr. Marcano was notified and proceed to the cardiac catheter lab. Patient sees heparin and one aspirin prior to cardiac catheterization. During heart catheterization,, patient became hypertensive, tachypneic, hypoxic and agitated including abdominal pain with nausea and vomiting. Patient was intubated by Dr. Simon and dispensed transferred to room 505a. Currently hemodynamic stable on a propofol drip. Subjective 05/06: Patient required additional sedation overnight. Was moving all 4 extremity spontaneously and strongly. Potassium is replaced overnight along with magnesium. This afternoon approximate 4 PM, patient went into a sinus bradycardia in the 40s. RN cannot locate pulse and possibly went into a PEA arrest. Patient received CPR for approximately 2 minutes. ROSC return immediately. Received 1 mg of epinephrine IV. Blood pressure was 240 systolic. Saturations were above 90% the entire time. Dr. Marcano was made aware. No new recommendations at this time. Electrolytes currently pending. Patient is currently hemodynamic stable and an arterial line/left radial has been placed Objective Vital Signs Date Time Temp Pulse Resp B/P Pulse Ox O2 Delivery O2 Flow Rate FiO2 05/06/16 14:18 99 45 05/06/16 14:00 57 05/06/16 12:00 98.2 16 121/73 05/05/16 14:00 Nasal Cannula 2 Intake and Output 05/05/16 05/05/16 05/06/16 08:00 16:00 00:00 Intake Total 452 ml Output Total 750 ml Balance -298 ml Result Diagram: 05/06/16 0326 05/06/16 0326 Imaging Last Impressions Chest X-Ray 05/05/16 1346 Signed Impressions: Service Date/Time: Thursday, May 05, 2016 14:02 - CONCLUSION: Cardiomegaly. No acute cardiopulmonary disease. Bobby Lamas MD Objective Remarks GENERAL: 61-year-old AA male, critically ill currently in bed in no acute distress SKIN: Warm and dry. No rash HEAD: Atraumatic. Normocephalic. EYES: Pupils equal and round around 2 mm bilaterally and reactive. No scleral icterus. No injection or drainage. ENT: No nasal bleeding or discharge. Mucous membranes pink and moist. NECK: Trachea midline. No JVD. CARDIOVASCULAR: Distant due to body habitus. Regular rate and rhythm. S1, S2. No S4. Without murmur RESPIRATORY: Diminished breath sounds bilaterally due to body habitus. Breath sounds equal bilaterally. GASTROINTESTINAL: Abdomen obese, non-tender, protuberant. Hypoactive bowel sounds are appreciated MUSCULOSKELETAL: Extremities without significant peripheral edema. He has a femoral sheath in the right inguinal region No obvious deformities. NEUROLOGICAL: Sedated on the ventilator currently. Urinary Catheter: Yes Assessment to: Continue Chaudhry insert reason: Prolonged Immobilization Vascular Central Line Catheter: No Assessment to: Continue A/P Assessment and Plan Neuro/psych: Currently ordered for a Propofol drip and currently on fentanyl drip at 100 g an hour for sedation/analgesia while intubated Goal of RASS -2 Daily sedation vacation Patient was arousable and moving all 4 extremities spontaneously strongly yesterday on propofol weaned off. Was agitated overnight requiring additional sedation. Monitor neuro status closely post code. If unarousable check CT head tonight. CV: Coronary artery disease Nonischemic cardiomyopathy secondary to hypertensive heart disease Hypertensive emergency Status post cardiac catheterization by Dr. Moy. No intervention performed. Known coronary artery artery disease to the first and second diagonals the LAD. Resume aspirin 81 mg daily and Plavix 75 mg daily. Continue Lipitor 20 mg a night. 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 Currently holding home medications of hydrochlorothiazide 25 mg daily, spironolactone 50 mg twice a day and Norvasc 5 mg by mouth in light of blood pressures currently in the 100s. Patient's baseline blood pressures in the 170s and do not want to induce ischemia. Resp: Acute hypoxemic respiratory failure ACV 14/800/5/100 Ventilator bundle As needed bronchodilator therapy Chest x-ray post code reveals possible left lower lobe infiltrate. Cardio megaly. No other acute cardio pulmonic findings. Follow-up ABG revealed adequate oxygenation. GI: Hypoalbuminemia Patient is ordered Jevity 1.5 goal 55 cc an hour OG tube will be placed Protonix for GI prophylaxis Colace/Senokot twice a day for bowel regimen : Chaudhry will be placed for accurate I's and O's in a critically ill patient Endo: Diabetes mellitus type 2 Holding metformin 500 mg by mouth 3 times a day light of recent diet 48 hours. Sliding-scale insulin Accu-Cheks to maintain euglycemia. Low regimen every 6 hours Renal: Creatinine currently within normal limits. Currently on normal saline 84 cc an hour. Monitor BMP in a.m. Heme: CBC currently within normal limits. Serial hemoglobins every 6 hours rule out RP bleed per cardiology request. ID: Monitor for infection FEN: Hypokalemia Hypo-magnesium Received 80 mEq KCl IV and 800 mg Mag-Ox. Recheck now post code Electrolyte protocol initiated. Replace as clinically indicated MSK: History of spinal stenosis/laminectomy/left total knee replacement and left ring finger amputation PT evaluate and treat Access - Utilize peripheral IV./Central line if indicated Prophylaxis - GI - Protonix - DVT - SCD/pharmacological prophylaxis possible RP bleed Critical Care: The total critical care time was 35 minutes. Time to perform other separately billable procedures was not included in the critical care time. Discussed with , mother and extended family. Care plan discussed and all questions answered. Discussed with Dr. Marcano on the phone. No interventions at this time. Brett Abrams MD May 06, 2016 17:05 FEN: Electrolyte protocol initiated. Replace as clinically indicated MSK: History of spinal stenosis/laminectomy/left total knee replacement and left ring finger amputation PT evaluate and treat Access - Utilize peripheral IV./Central line if indicated Prophylaxis - GI - Protonix - DVT - SCD/pharmacological prophylaxis possible RP bleed Critical Care: The total critical care time was 65 minutes. Time to perform other separately billable procedures was not included in the critical care time. Brett Abrams MD May 06, 2016 17:05
[2016-05-06 17:38] LABS: BICARBONATE 23.7 MEQ/L (21.0-32.0); MAGNESIUM 1.6 MG/DL (1.5-2.5)
[2016-05-06 17:39] LABS: POTASSIUM 3.6 MEQ/L (3.5-5.1)
[2016-05-06] MEDS ORDERED: SODIUM CHLOR 0.9% 1000 ML INJ 1,000 ML IV ONE (17:45)
[2016-05-06] MEDS: MAGNESIUM SULFATE 1 GM PREMIX 100 ML IV SCH ×2 (18:00→20:06)
[2016-05-06] MEDS ORDERED: POTASSIUM CL 40 MEQ/30 ML LIQ UDC PO ONE (18:00)
[2016-05-06] MEDS: SENNOSIDES 8.6 MG TAB PO SCH (18:00)
--- NOTE | 2016-05-06 18:56 | RADRPT ---
EXAM DATE/TIME: 05/06/2016 17:54 [facility] COMPARISON: No previous studies available for comparison. INDICATIONS : Bilateral leg edema. MEDICAL HISTORY : Hypertension. Myocardial infarction. Congestive heart failure. Diabetes. SURGICAL HISTORY : Meniscus surgery. Back surgery. ENCOUNTER: Initial ACUITY: 1 day PAIN SCORE: Non-responsive LOCATION: Bilateral leg. TECHNIQUE: Venous ultrasound of the left and right leg was performed from the inguinal ligament to the proximal calf. Real-time, color Doppler and spectral tracing, compression and augmentation techniques were us ed. FINDINGS: RIGHT LEG: The right common femoral vein was not examined secondary to dressing from prior coronary artery angio gram. There is limited visualization of the popliteal and posterior tibial veins secondary to patient being uncooperative. There is normal compressibility of the deep venous system from the inguinal reg ion to the proximal calf. No echogenic clot is seen in the lumen of the femoral. There is a normal response of the venous system to proximal and distal augmentation and respiration. LEFT LEG: There is normal compressibility of the deep venous system from the inguinal region to the proximal ca lf. No echogenic clot is seen in the lumen of the common femoral, femoral, popliteal, and posterior tibial veins. There is a normal response of the venous system to proximal and distal augmentation an d respiration. CONCLUSION: No DVT is seen. No visualization is obtained at the right femoral vein site secondary to an overlying dressing and the right popliteal and posterior tibial veins could not be fully characterized. Low Salas MD on May 06, 2016 at 18:52 Board Certified Radiologist. This report was verified electronically.
[2016-05-06] MEDS: RESP: ALBUTEROL 2.5 MG/IPRATROPIUM 0.5 MG NEB (PRN) INH (19:37)
[2016-05-06] MEDS: ACETYLCYSTEINE 20% 6,000 MG/30 ML ORAL SOLN VIAL PO SCH (20:19)
[2016-05-06] MEDS ORDERED: ACETYLCYSTEINE 20% ORAL SOLN 4 ML VIAL PO SCH (21:00)
--- NOTE | 2016-05-06 23:02 | MB ---
cc: MAURIZIO HUERTA DO DATE OF CONSULTATION 05/06/16 CHIEF COMPLAINT Chest pain, syncopal episode with acute onset of diaphoresis HISTORY OF CHIEF COMPLAINT Low Short is a pleasant 61-year-old -[place] male who presented to [facility] on May 05, 2016 after having chest pain, a presyncopal episode and diaphoresis. He states that the chest pain was 7/10 without radiation. He also felt like he was getting lightheaded but never fully passed out and he was feeling diaphoretic. When seen in the emergency room by the ER physician there was a question of ST elevations anteriorly and as the patient was having chest pain a STEMI alert was called. The patient previously had a cardiac catheterization and he thought it was from Dr. Morales so Dr. Morales was originally called. The patient made his way up to the catheterization lab. I was called by Dr. Morales who states that Dr. Cruz had done the original cardiac catheterization and that was not his patient, as the senior automation engineer physician I then took over the case from Dr. Morales. PAST MEDICAL HISTORY 1. Hypertension. 2. Mild to moderate coronary artery disease by cardiac catheterization (2009). 3. Nonischemic cardiomyopathy secondary to hypertensive heart disease. 4. Diabetes mellitus type 2. PAST SURGICAL HISTORY 1. Cardiac catheterization (2009). 2. Laminectomy. 3. Left ring finger amputation. 4. Left total knee arthroplasty. ALLERGIES PENICILLIN. MEDICATIONS 1. Metformin 500 milligrams three times a day. 2. Spironolactone 25 milligrams twice a day. 3. Norvasc 5 milligrams daily. 4. Hydrochlorothiazide 25 milligrams daily. 5. Plavix 75 milligrams daily. FAMILY HISTORY Mother and father both had hypertension. 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 He denies tobacco, alcohol or drug abuse. REVIEW OF SYSTEMS 14 systems were reviewed in the emergency room records and above pertinent positives and negatives above, otherwise negative. PHYSICAL EXAMINATION VITAL SIGNS: Temperature 98.2, heart rate 128, blood pressure 219/135, respirations 22, pulse ox 96% on 2 liters. GENERAL: In general the patient appears in moderate distress due to pain and shortness of breath. HEENT: Extraocular muscles intact. Mucous membranes moist. NECK: Supple. No JVD at 45 degrees. No carotid bruits heard bilaterally. Carotid upstroke is brisk in nature. HEART: Heart is tachycardiac. Positive first and second heart sounds with no noted murmurs, gallops or rubs. LUNGS: Have decreased breath sounds at bilateral bases but no overt wheezes, rales or rhonchi. ABDOMEN: Soft, nontender, nondistended. No organomegaly noted. EXTREMITIES: Show trace edema bilaterally. Femoral and distal pulses intact bilaterally. NEUROLOGICALLY: No focal deficits. SKIN: Skin is warm, diaphoretic and intact. OSTEOPATHIC: Mild lordosis. No kyphoscoliosis or paraspinal tender points. LABORATORY FINDINGS Hemoglobin 14.9, hematocrit 44.8, platelets 225. D-dimer 0.35. Potassium 3.8, BUN 13, creatinine 1.04. Troponin 0.05. Electrocardiogram (May 05, 2016 at 13:41) sinus tachycardia, left atrial enlargement, possible old anterior septal myocardial infarction with no significant change from June 11, 2009. IMPRESSION 1. STEMI alert for continued chest pain with possible ST elevations anteriorly. 2. Possible hypertensive emergency. 3. Syncopal episode. 4. Mild to moderate coronary artery disease by cardiac catheterization (2009) 5. Nonischemic cardiomyopathy secondary to hypertensive heart disease. 6. Type 2 diabetes mellitus. RECOMMENDATIONS 1. Because of Mr. Short' symptoms and concern for possible ST elevations of the anterior leads of his EKG a STEMI alert was called and he will be brought to the cardiac catheterization lab. 2. He understands the risks, benefits and alternatives and signed consent as such. 3. 2D echo will be obtained to look at his overall left ventricular function, cardiac structure and possible valvulopathies. 4. Further recommendations will be made after coronary visualization. Thank you for allowing me to see Low Short. If there are any questions please do not hesitate to call. Maurizio Huerta DO VGP/EO /5:47 PM /10:31 PM MTDD
[2016-05-06] MEDS ORDERED: LORazepam 2 MG/ML VIAL IV PUSH PRN (23:45)
[2016-05-06] MEDS ORDERED: ATROPINE SULFATE 1 MG/10 ML SYRINGE ONE (23:48)
[2016-05-07] VITALS (19 sets, daily range): BP systolic 107–141; BP diastolic 65–79; PULSE 75–97; RESP 16–24; TEMP 97.9–100; O2SAT 95–100
[2016-05-07] MEDS ORDERED: IOHEXOL 350 MG/ML 10 ML VIAL (for RAD DIAG) IV ONE (00:11)
--- NOTE | 2016-05-07 00:24 | RADRPT ---
EXAM DATE/TIME: 05/07/2016 00:04 [facility] COMPARISON: No previous studies available for comparison. INDICATIONS : Respiratory distress. IV CONTRAST: 79 cc Omnipaque 350 (iohexol) IV RADIATION DOSE: 25.48 CTDIvol (mGy) MEDICAL HISTORY : Hypertension. Congestive heart failure. Diabetes mellitus type 2. SURGICAL HISTORY : None. ENCOUNTER: Subsequent ACUITY: 1 week PAIN SCALE: Non-responsive LOCATION: chest TECHNIQUE: Volumetric scanning of the chest was performed using a pulmonary embolism protocol MIP images were re constructed. Using automated exposure control and adjustment of the mA and/or kV according to patien t size, radiation dose was kept as low as reasonably achievable to obtain optimal diagnostic quality images. FINDINGS: PULMONARY ARTERIES: There is suboptimal contrast delivery to the pulmonary vessels with equal contrast enhancement in bot h the aorta and pulmonary arteries. No filling defects are seen in the pulmonary arteries through th e segmental level. LUNGS: Bilateral lobar consolidation with air bronchograms in the lower lungs. There is also patchy consoli dative infiltrates in the left perihilar region. PLEURAE: There is no pleural thickening or pleural effusion. MEDIASTINUM: There is good visualization of the great vessels of the middle mediastinum. No evidence of mediastin al or hilar adenopathy/mass. MISCELLANEOUS: Gastric tube tip is in the antrum. CONCLUSION: 1. Lobar consolidation bilaterally in the lower lobes. 2. Negative for pulmonary embolism. Michael Colbert MD on May 07, 2016 at 0:19 Board Certified Radiologist. This report was verified electronically.
[2016-05-07] MEDS: PROPOFOL 1000 MG/100 ML INJ 100 ML IV SCH ×6 (00:54→22:02)
[2016-05-07] MEDS: CHLORHEXIDINE GLUCONATE 2 % 1 PACK (2 CLOTHS) TOP SCH (02:21)
[2016-05-07 03:47] LABS: AUTOMATED NEUTROPHIL # 6.6 TH/MM3 (1.8-7.7); BASOPHIL % 0.3 % (0.0-2.0); EOSINOPHIL # 0.1 TH/MM3 (0-0.4); EOSINOPHIL % 0.7 % (0.0-4.0); HEMATOCRIT 39.9 % (39.0-51.0); HEMO FLAGS DIFF FINAL; LYMPH % 11.6 % (9.0-44.0); LYMPHOCYTE # 0.9 TH/MM3 (1.0-4.8); MEAN CELL VOLUME 88.5 FL (80.0-100.0); MEAN CORPUSCULAR HEMOGLOBIN 29.2 PG (27.0-34.0); MONO % 6.3 % (0.0-8.0); NEUT % 81.1 % (16.0-70.0); PLATELET COUNT 172 TH/MM3 (150-450); WHITE BLOOD COUNT 8.1 TH/MM3 (4.0-11.0)
[2016-05-07 04:13] LABS: APTT (PATIENT) 26.6 SEC (24.3-30.1); PROTHROMBIN TIME - PATIENT 11.1 SEC (9.8-11.6)
[2016-05-07 04:27] LABS: ALKALINE PHOSPHATASE 58 U/L (45-117); ALT (GPT) 17 U/L (12-78); ANION GAP 9 MEQ/L (5-15); AST (GOT) 16 U/L (15-37); BICARBONATE 22.6 MEQ/L (21.0-32.0); BLOOD UREA NITROGEN 16 MG/DL (7-18); CHLORIDE 110 MEQ/L (98-107); CREATINE KINASE 262 U/L (39-308); GLOMERULAR FILTRATION RATE 66 ML/MIN (>89); POTASSIUM 4.1 MEQ/L (3.5-5.1); SODIUM (NA) 142 MEQ/L (136-145); TOTAL BILIRUBIN ADULT 0.3 MG/DL (0.2-1.0)
[2016-05-07] MEDS: SENNOSIDES 8.6 MG TAB PO SCH ×2 (04:46→18:26)
[2016-05-07] MEDS: SODIUM CHLOR 0.9% 1000 ML INJ 1,000 ML IV SCH (04:46)
[2016-05-07] MEDS: INSULIN NovoLIN REGULAR SUPPLEMENTAL SCALE SQ SCH ×4 (04:47→18:00)
[2016-05-07] MEDS: fentaNYL DRIP 250 ML IV SCH ×2 (04:52→16:55)
[2016-05-07] MEDS: ARTIFICIAL TEARS OPTH SOLN 15 ML BTL EACH EYE SCH ×3 (09:00→18:26)
[2016-05-07] MEDS: ASPIRIN 81 MG CHEW TAB CHEW SCH (09:00)
[2016-05-07] MEDS: ACETYLCYSTEINE 20% 6,000 MG/30 ML ORAL SOLN VIAL PO SCH ×2 (09:00→19:44)
[2016-05-07] MEDS: DOCUSATE SODIUM 100 MG CAP PO SCH ×2 (09:25→19:45)
[2016-05-07] MEDS: CLOPIDOGREL 75 MG TAB PO SCH (09:25)
[2016-05-07] MEDS: PANTOPRAZOLE SODIUM 40 MG VIAL IV SCH (09:26)
[2016-05-07] MEDS: ATORVASTATIN 20 MG TAB PO SCH (09:27)
[2016-05-07] MEDS: SODIUM CHLORIDE 0.9% FLUSH 5 ML FLUSH IV FLUSH SCH ×2 (09:31→19:45)
[2016-05-07 09:50] LABS: HEMOGLOBIN A1b 2.1 %; HEMOGLOBIN Ao 83.2 %; HEMOGLOBIN LA1C 1.9 %; HEMOGLOBIN P3 4.2 %
--- NOTE | 2016-05-07 10:21 | PD.CARD.PN ---
Subjective Subjective Remarks Event noted, appears that he had a bradycardiac event with possible PEA, brief chest compressions with resolution Objective Medications Current Medications Medications (Trade) Dose Ordered Sig/Isabelle Route Start Time Stop Time Status Last Admin (NS 1000 ml Inj) 1,000 ml @ 84 mls/hr [id number] IV 05/05/16 17:13 05/07/16 04:46 (NS Flush) 2 ml UNSCH PRN IV FLUSH 05/05/16 17:15 (NS Flush) 2 ml BID IV FLUSH 05/05/16 21:00 05/07/16 09:31 (Tylenol) 650 mg Q6H PRN PO 05/05/16 17:15 (Protonix Inj) 40 mg DAILY IV 05/06/16 09:00 05/07/16 09:26 (Tears Naturale Opth Soln) 1 drop TID EACH EYE 05/05/16 18:00 05/06/16 18:00 (Zofran Inj) 4 mg Q6H PRN IV 05/05/16 17:15 (Colace) 100 mg BID PO 05/05/16 21:00 05/07/16 09:25 Miscellaneous Information 1 [id number] XX 05/05/16 17:15 05/05/16 17:15 (Chlorhexidine 2% Cloth) 3 pack Taper DAILY@04 TOP 05/06/16 04:00 05/02/17 03:59 05/07/16 02:21 Chlorhexidine Gluconate 3 pack 3 pack UNSCH PRN TOP 05/05/16 17:15 Propofol 100 ml @ 0 mls/hr TITRATE IV 05/05/16 17:15 05/07/16 09:31 Fentanyl Citrate 250 ml @ 0 mls/hr TITRATE IV 05/05/16 17:15 05/07/16 04:52 Potassium Chloride 100 ml @ 50 mls/hr Q2H PRN IV 05/05/16 17:15 (KCl 20 Meq Premix Inj) 100 ml @ 50 mls/hr Q2H PRN IV 05/05/16 17:15 05/06/16 09:00 Potassium Chloride 40 meq 40 meq UNSCH PRN PO/TUBE 05/05/16 17:15 Potassium Chloride 100 ml @ 25 mls/hr UNSCH PRN IV 05/05/16 17:15 Potassium Chloride 100 ml @ 50 mls/hr Q2H PRN IV 05/05/16 17:15 (Magnesium Sulfate Inj/NS Inj) 100 ml @ 50 mls/hr UNSCH PRN IV 05/05/16 17:15 Magnesium Oxide 800 mg 800 mg UNSCH PRN PO 05/05/16 17:15 05/06/16 05:25 (Magnesium Sulfate Inj/NS Inj) 100 ml @ 50 mls/hr UNSCH PRN IV 05/05/16 17:15 Potassium Phosphate 2000 mg 2,000 mg Q4H PRN PO 05/05/16 17:15 (Sodium Phosphate Inj/NS 250 ml Inj) 250 ml @ 42 mls/hr UNSCH PRN IV 05/05/16 17:15 (KCl 40 Meq/30 ml Liq) 40 meq UNSCH PRN PO/TUBE 05/05/16 17:15 Potassium Phosphate 2000 mg 2,000 mg UNSCH PRN PO/TUBE 05/05/16 17:15 (Potassium Phosphate Inj/NS 250 ml Inj) 260 ml @ 42 mls/hr UNSCH PRN IV 05/05/16 17:15 (D50w (Vial) Inj) 25 ml UNSCH PRN IV PUSH 05/05/16 17:15 (Glucagon Inj) 1 mg UNSCH PRN OTHER 05/05/16 17:15 (NovoLIN R SUPPLEMENTAL SCALE) 1 Q6HR SQ 05/05/16 18:00 (Aspirin Chew) 81 mg DAILY CHEW 05/06/16 09:00 05/07/16 09:00 (Plavix) 75 mg DAILY PO 05/06/16 09:00 05/07/16 09:25 (Lipitor) 20 mg DAILY PO 05/06/16 09:00 05/07/16 09:27 (Senokot) 17.2 mg Q12H PO 05/06/16 18:00 05/07/16 04:46 Acetylcysteine 3 mg 3 mg BID PO 05/06/16 21:00 05/06/16 20:19 (Cardene Inj/NS 250 ml Inj) 260 ml @ 0 mls/hr TITRATE IV 05/06/16 23:30 (Trandate Inj) 20 mg Q2HR PRN IV PUSH 05/06/16 23:30 (Ativan Inj) 2 mg Q4H PRN IV PUSH 05/06/16 23:45 05/07/16 00:54 (Morphine Inj) 4 mg Q3H PRN IV PUSH 05/06/16 23:45 Vital Signs / I&O Vital Signs Date Time Temp Pulse Resp B/P Pulse Ox O2 Delivery O2 Flow Rate FiO2 05/07/16 08:00 100.0 75 22 123/75 97 05/07/16 08:00 100 05/07/16 07:55 95 100 05/07/16 06:00 93 05/07/16 04:12 98 100 05/07/16 04:00 100 05/07/16 04:00 95 05/07/16 04:00 97.9 95 22 140/68 100 05/07/16 02:00 90 05/07/16 01:20 97 100 05/07/16 00:00 100 05/07/16 00:00 98.9 97 22 129/66 97 05/07/16 00:00 84 05/06/16 23:30 98 100 05/06/16 22:06 100 100 05/06/16 22:00 60 05/06/16 20:00 100 05/06/16 20:00 91 05/06/16 20:00 98.6 91 22 120/79 97 05/06/16 19:03 100 100 05/06/16 18:00 57 05/06/16 16:00 98.8 66 16 137/69 97 05/06/16 16:00 45 05/06/16 16:00 57 05/06/16 14:18 99 45 05/06/16 14:00 57 05/06/16 12:00 98.2 54 16 121/73 97 05/06/16 12:00 57 05/06/16 12:00 45 I/O 05/06/16 05/06/16 05/06/16 05/07/16 05/07/16 05/07/16 07:00 15:00 23:00 07:00 15:00 23:00 Intake Total 1176 ml 1375 ml 535 ml 1145 ml Output Total 250 ml 485 ml 750 ml 300 ml Balance 926 ml 890 ml -215 ml 845 ml Intake IV Total 1116 ml 1375 ml 470 ml 965 ml Tube Feeding 25 ml 140 ml Tube Irrigant 40 ml 40 ml Other 60 ml Output Urine Total 250 ml 485 ml 750 ml 300 ml Stool Total 0 ml 0 ml Physical Exam GENERAL: Sedated on the vent SKIN: Warm and dry. HEAD: Atraumatic. Normocephalic. EYES: Pupils equal and round. No scleral icterus. No injection or drainage. ENT: No nasal bleeding or discharge. Mucous membranes pink and moist. NECK: Trachea midline. No JVD. CARDIOVASCULAR: Regular rate and rhythm. RESPIRATORY: No accessory muscle use. Decreased breath sounds bilaterally GASTROINTESTINAL: Abdomen soft, non-tender, nondistended. Hepatic and splenic margins not palpable. MUSCULOSKELETAL: Extremities without clubbing, cyanosis, or edema. No obvious deformities. Right radial no hematoma. Right femoral no hematoma/bruit noted NEUROLOGICAL: Awake and alert. No obvious cranial nerve deficits. Motor grossly within normal limits. Five out of 5 muscle strength in the arms and legs. Normal speech. PSYCHIATRIC: Appropriate mood and affect; insight and judgment normal. Laboratory Laboratory Tests Test 05/06/16 05/06/16 05/06/16 05/07/16 16:04 16:50 22:35 03:30 Blood Gas Puncture Site RT RADIAL Blood Gas Patient Temperature 98.6 Blood Gas HCO3 22 mmol/L Blood Gas Base Excess -3.2 mmol/L Blood Gas Oxygen Saturation 97 % Arterial Blood pH 7.34 Arterial Blood Partial 41 mmHg Pressure CO2 Arterial Blood Partial 168 mmHg Pressure O2 Arterial Blood Oxygen Content 21.0 Vol % Arterial Blood 1.1 % Carboxyhemoglobin Arterial Blood Methemoglobin 1.2 % Blood Gas Hemoglobin 15.2 G/DL Oxygen Delivery Device VENTILATOR Blood Gas Ventilator Setting A/C16/700/8PEEP Blood Gas Inspired Oxygen 100 % White Blood Count 9.1 TH/MM3 8.1 TH/MM3 Red Blood Count 4.56 MIL/MM3 4.50 MIL/MM3 Hemoglobin 13.3 GM/DL 13.2 GM/DL Hematocrit 40.2 % 39.9 % Mean Corpuscular Volume 88.0 FL 88.5 FL Mean Corpuscular Hemoglobin 29.2 PG 29.2 PG Mean Corpuscular Hemoglobin 33.2 % 33.0 % Concent Red Cell Distribution Width 14.8 % 15.0 % Platelet Count 184 TH/MM3 172 TH/MM3 Mean Platelet Volume 8.7 FL 8.3 FL Sodium Level 143 MEQ/L 142 MEQ/L Potassium Level 3.6 MEQ/L 4.1 MEQ/L Chloride Level 109 MEQ/L 110 MEQ/L Carbon Dioxide Level 23.7 MEQ/L 22.6 MEQ/L Anion Gap 10 MEQ/L 9 MEQ/L Blood Urea Nitrogen 15 MG/DL 16 MG/DL Creatinine 1.32 MG/DL 1.33 MG/DL Estimat Glomerular Filtration 67 ML/MIN 66 ML/MIN Rate Random Glucose 166 MG/DL 145 MG/DL Lactic Acid Level 3.3 mmol/L 1.9 mmol/L 1.7 mmol/L Calcium Level 7.7 MG/DL 7.7 MG/DL Phosphorus Level 3.5 MG/DL 2.9 MG/DL Magnesium Level 1.6 MG/DL 2.0 MG/DL Troponin I 0.16 NG/ML 0.21 NG/ML 0.22 NG/ML Neutrophils (%) (Auto) 81.1 % Lymphocytes (%) (Auto) 11.6 % Monocytes (%) (Auto) 6.3 % Eosinophils (%) (Auto) 0.7 % Basophils (%) (Auto) 0.3 % Neutrophils # (Auto) 6.6 TH/MM3 Lymphocytes # (Auto) 0.9 TH/MM3 Monocytes # (Auto) 0.5 TH/MM3 Eosinophils # (Auto) 0.1 TH/MM3 Basophils # (Auto) 0.0 TH/MM3 CBC Comment DIFF FINAL Differential Comment Prothrombin Time 11.1 SEC Prothromb Time International 1.0 RATIO Ratio Activated Partial 26.6 SEC Thromboplast Time Fibrinogen 280 mg/dL Total Bilirubin 0.3 MG/DL Aspartate Amino Transf 16 U/L (AST/SGOT) Alanine Aminotransferase 17 U/L (ALT/SGPT) Alkaline Phosphatase 58 U/L Total Creatine Kinase 262 U/L Total Protein 5.7 GM/DL Albumin 3.0 GM/DL Assessment and Plan Problem List: (1) Hypertensive emergency (2) Acute hypoxemic respiratory failure (3) Diabetes mellitus (4) CAD (coronary artery disease) Assessment and Plan 1) HTN emergency, concern for possible STEMI, most like EKG changes from Emergent HTN 2) Cardiac cath showing mild to moderate CAD 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 possible hypokalemia? unsure of cause 7) Air bronchograms on CT, possible PNA/possible aspiration Maurizio Marcano DO May 07, 2016 10:21
--- NOTE | 2016-05-07 10:38 | EC ---
Study Study Date:05/06/2016 STUDY CONCLUSIONS SUMMARY - Left ventricle: The cavity size was normal. Wall thickness was normal. Systolic function was normal. The estimated ejection fraction was in the range of 55% to 60%. Wall motion was normal; there were no regional wall motion abnormalities. - Aortic valve: Valve area: 1.75cm^2(VTI). Valve area: 1.95cm^2 (Vmax). - Mitral valve: Valve area by continuity equation (using LVOT flow): 1.73cm^2. - Left atrium: The atrium was mildly dilated. If LV function is below 40, please consider prescribing an ACEI or ARB or document rationale for non-use. PROCEDURE DATA STUDY STATUS: Elective. Procedure: Transthoracic echocardiography. Image quality was poor. Scanning was performed from the parasternal, apical, and subcostal acoustic windows. Study completion: The patient tolerated the procedure well. Transthoracic echocardiography. M-mode, complete 2D, complete spectral Doppler, and color Doppler. Height: Height: 71in. Weight: Weight: 304.4lb. Body mass index: BMI: 42.5kg/m^2. Body surface area: BSA: 2.52m^2. Patient status: Inpatient. CARDIAC ANATOMY LEFT VENTRICLE: The cavity size was normal. Wall thickness was normal. Systolic function was normal. The estimated ejection fraction was in the range of 55% to 60%. Wall motion was normal; there were no regional wall motion abnormalities. AORTIC VALVE: Trileaflet; mildly thickened, mildly calcified leaflets. Doppler: Transvalvular velocity was within the normal range. There was no stenosis. No regurgitation. Valve area: 1.75cm^2(VTI). Indexed valve area: 0.69cm^2/m^2 (VTI). Valve area: 1.95cm^2 (Vmax). Indexed valve area: 0.77cm^2/m^2 (Vmax). Mean gradient: 5mm Hg (S). AORTA: Aortic root: The aortic root was normal in size. MITRAL VALVE: Mildly thickened leaflets, . Doppler: Transvalvular velocity was within the normal range. There was no evidence for stenosis. No regurgitation. Valve area by continuity equation (using LVOT flow): 1.73cm^2. Indexed valve area by continuity equation (using LVOT flow): 0.69cm^2/m^2. Mean gradient: 2mm Hg (D). LEFT ATRIUM: The atrium was mildly dilated. RIGHT VENTRICLE: The cavity size was normal. Wall thickness was normal. PULMONIC VALVE: Doppler: Transvalvular velocity was within the normal range. There was no evidence for stenosis. No regurgitation. TRICUSPID VALVE: Structurally normal valve. Doppler: Transvalvular velocity was within the normal range. No regurgitation. PULMONARY ARTERY: The main pulmonary artery was normal-sized. Systolic pressure was within the normal range. RIGHT ATRIUM: The atrium was normal in size. PERICARDIUM: There was no pericardial effusion. SYSTEMIC VEINS: Inferior vena cava: The vessel was normal in size. Patient weight: 304.4lb _Ejection fraction:_ 65-75% _Fractional shortening:_ 32% up to 5Kg 5-11.5Kg 11.6-22.9Kg 23-45Kg 45-57Kg Aortic Root 7-13 <17 13-22 17-27 17-27 LA diam 6-13 <23 24-38 33-47 37-40 RVID 10-17 7-15 7-15 7-18 8-17 LVIDd 12-22 <32 24-38 33-47 37-40 LVPW 2-4 3-6 5-7 6-8 7-8 IVS 2-4 3-6 5-7 6-8 7-8 BASIC MEASUREMENTS ADULT NORMAL Left ventricle LV internal dimension, ED, chordal *56.5 mm 43-52 level, PLAX LV internal dimension, ES, chordal *41.3 mm 23-38 level, PLAX Fractional shortening, chordal level, *27 % >29 PLAX LV posterior wall thickness, ED 11.9 mm IVS/LVPW ratio, ED 1 <1.3 Ventricular septum Septal thickness, ED 11.9 mm Aortic valve Leaflet separation 23 mm 15-26 Aorta Root diameter, ED 33 mm Left atrium Anterior-posterior dimension 42 mm Anterior-posterior dimension index 1.67 cm/m^2 <2.2 BASIC MEASUREMENTS ADULT NORMAL Aortic valve Leaflet separation 23 mm 15-26 DOPPLER MEASUREMENTS ADULT NORMAL Main pulmonary artery Pressure, S 26 mm Hg =30 Aortic valve Peak velocity, S 136 cm/s Mean velocity, S 109 cm/s VTI, S 33 cm Mean gradient, S 5 mm Hg Valve area, VTI 1.75 cm^2 Valve area index, VTI 0.69 cm^2/m^2 Valve area, Vmax 1.95 cm^2 Valve area index, Vmax 0.77 cm^2/m^2 Mitral valve Peak E-wave velocity 70.6 cm/s Peak A-wave velocity 73.1 cm/s Mean velocity, D 58.1 cm/s Deceleration time *299 ms 150-230 Mean gradient, D 2 mm Hg Peak E/A ratio 1 Valve area, LVOT continuity 1.73 cm^2 Valve area index, LVOT continuity 0.69 cm^2/m^2 Tricuspid valve Regurgitant peak velocity 211 cm/s Peak RV-RA gradient, S 18 mm Hg Maximal regurgitant velocity 211 cm/s Systemic veins Estimated CVP 5 mm Hg Right ventricle RV pressure, S 28 mm Hg <30 Pulmonic valve Peak velocity, S 75.9 cm/s LEGEND: Mean values are shown as u=mean value. Asterisk (*) parsons values outside specified normal range. Prepared and signed by Manuel Tello [id number]
--- NOTE | 2016-05-07 11:57 | MB ---
cc: MAURIZIO HUERTA DO DATE OF CONSULTATION 05/06/16 CHIEF COMPLAINT Chest pain, syncopal episode with acute onset of diaphoresis HISTORY OF CHIEF COMPLAINT Low Short is a pleasant 61-year-old -[place] male who presented to [facility] on May 05, 2016 after having chest pain, a presyncopal episode and diaphoresis. He states that the chest pain was 7/10 without radiation. He also felt like he was getting lightheaded but never fully passed out and he was feeling diaphoretic. When seen in the emergency room by the ER physician there was a question of ST elevations anteriorly and as the patient was having chest pain a STEMI alert was called. The patient previously had a cardiac catheterization and he thought it was from Dr. Morales so Dr. Morales was originally called. The patient made his way up to the catheterization lab. I was called by Dr. Morales who states that Dr. Cruz had done the original cardiac catheterization and that was not his patient, as the electrical subcontractor physician I then took over the case from Dr. Morales. PAST MEDICAL HISTORY 1. Hypertension. 2. Mild to moderate coronary artery disease by cardiac catheterization (2009). 3. Nonischemic cardiomyopathy secondary to hypertensive heart disease. 4. Diabetes mellitus type 2. PAST SURGICAL HISTORY 1. Cardiac catheterization (2009). 2. Laminectomy. 3. Left ring finger amputation. 4. Left total knee arthroplasty. ALLERGIES PENICILLIN. MEDICATIONS 1. Metformin 500 milligrams three times a day. 2. Spironolactone 25 milligrams twice a day. 3. Norvasc 5 milligrams daily. 4. Hydrochlorothiazide 25 milligrams daily. 5. Plavix 75 milligrams daily. FAMILY HISTORY Mother and father both had hypertension. 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 He denies tobacco, alcohol or drug abuse. REVIEW OF SYSTEMS 14 systems were reviewed in the emergency room records and above pertinent positives and negatives above, otherwise negative. PHYSICAL EXAMINATION VITAL SIGNS: Temperature 98.2, heart rate 128, blood pressure 219/135, respirations 22, pulse ox 96% on 2 liters. GENERAL: In general the patient appears in moderate distress due to pain and shortness of breath. HEENT: Extraocular muscles intact. Mucous membranes moist. NECK: Supple. No JVD at 45 degrees. No carotid bruits heard bilaterally. Carotid upstroke is brisk in nature. HEART: Heart is tachycardiac. Positive first and second heart sounds with no noted murmurs, gallops or rubs. LUNGS: Have decreased breath sounds at bilateral bases but no overt wheezes, rales or rhonchi. ABDOMEN: Soft, nontender, nondistended. No organomegaly noted. EXTREMITIES: Show trace edema bilaterally. Femoral and distal pulses intact bilaterally. NEUROLOGICALLY: No focal deficits. SKIN: Skin is warm, diaphoretic and intact. OSTEOPATHIC: Mild lordosis. No kyphoscoliosis or paraspinal tender points. LABORATORY FINDINGS Hemoglobin 14.9, hematocrit 44.8, platelets 225. D-dimer 0.35. Potassium 3.8, BUN 13, creatinine 1.04. Troponin 0.05. Electrocardiogram (May 05, 2016 at 13:41) sinus tachycardia, left atrial enlargement, possible old anterior septal myocardial infarction with no significant change from June 11, 2009. IMPRESSION 1. SEMI alert for continued chest pain with possible ST elevations anteriorly. 2. Possible hypertensive emergency. 3. Syncopal episode. 4. Mild to moderate coronary artery disease by cardiac catheterization (2009) 5. Nonischemic cardiomyopathy secondary to hypertensive heart disease. 6. Type 2 diabetes mellitus. RECOMMENDATIONS 1. Because of Mr. Short' symptoms and concern for possible ST elevations of the anterior leads of his EKG a STEMI alert was called and he will be brought to the cardiac catheterization lab. 2. He understands the risks, benefits and alternatives and signed consent as such. 3. 2D echo will be obtained to look at his overall left ventricular function, cardiac structure and possible valvulopathies. 4. Further recommendations will be made after coronary visualization. Thank you for allowing me to see Low Short. If there are any questions please do not hesitate to call. Maurizio Huerta DO VGP/EO /5:47 PM /10:31 PM
[2016-05-07] MEDS ORDERED: FUROSEMIDE 40 MG/4 ML VIAL IV PUSH ONE (16:30)
--- NOTE | 2016-05-07 16:49 | HHI.CCPN ---
Subjective Remarks/Hospital Course 61-year-old AA male. Date of admission 05/05/2016. Date of consultation 2016. Past medical history includes hypertensive heart disease, hypertension, diabetes mellitus type 2 and spinal stenosis. He presented to [facility] today with history of acute onset of diaphoresis, chest pain and syncope. Her documentation, Chest pain was 7 out of 10 without radiation. Later in the hospital physician, patient did have ST elevation anterior septal leads. I he had a cardiac catheterization in 2009 which revealed moderate coronary disease which documented 50-60% stenosis in the LAD diagonals 1 and 2. Recommended medical management at that time. Dr. Marcano was notified and proceed to the cardiac catheter lab. Patient sees heparin and one aspirin prior to cardiac catheterization. During heart catheterization,, patient became hypertensive, tachypneic, hypoxic and agitated including abdominal pain with nausea and vomiting. Patient was intubated by Dr. Simon and dispensed transferred to room 505a. Currently hemodynamic stable on a propofol drip. Subjective 05/06: Patient required additional sedation overnight. Was moving all 4 extremity spontaneously and strongly. Potassium is replaced overnight along with magnesium. This afternoon approximate 4 PM, patient went into a sinus bradycardia in the 40s. RN cannot locate pulse and possibly went into a PEA arrest. Patient received CPR for approximately 2 minutes. ROSC return immediately. Received 1 mg of epinephrine IV. Blood pressure was 240 systolic. Saturations were above 90% the entire time. Dr. Marcano was made aware. No new recommendations at this time. Electrolytes currently pending. Patient is currently hemodynamic stable and an arterial line/left radial has been placed 05/07: no improvement in delirium or mental status. spiking low grade fevers. 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 CT surgery consulted and declined to operate here: he will need referral once stabilized. fio2 requirements still high. CT chest also with evidence of bibasilar consolidation which may be aspiration pneumonitis vs. pneumonia now that we are 48h out from initial presentation and now spiking fevers. Objective Vital Signs Date Time Temp Pulse Resp B/P Pulse Ox O2 Delivery O2 Flow Rate FiO2 05/07/16 16:00 81 05/07/16 16:00 98.9 16 107/72 98 05/07/16 15:49 100 05/05/16 14:00 Nasal Cannula 2 Intake and Output 05/06/16 05/06/16 05/07/16 08:00 16:00 00:00 Intake Total 1176 ml 1375 ml 535 ml Output Total 250 ml 485 ml 750 ml Balance 926 ml 890 ml -215 ml Result Diagram: 05/07/16 0330 05/07/16 0330 Imaging Last Impressions Chest X-Ray 05/05/16 1346 Signed Impressions: Service Date/Time: Thursday, May 05, 2016 14:02 - CONCLUSION: Cardiomegaly. No acute cardiopulmonary disease. Bobby Lamas MD Objective Remarks GENERAL: 61-year-old AA male, morbidly obese, critically ill currently in bed in no acute distress SKIN: Warm and dry. No rash HEAD: Atraumatic. Normocephalic. EYES: Pupils equal and round around 2 mm bilaterally and reactive. No scleral icterus. No injection or drainage. ENT: No nasal bleeding or discharge. Mucous membranes pink and moist. NECK: Trachea midline. JVD difficult to assess due to body habitus. CARDIOVASCULAR: Distant due to body habitus. Regular rate and rhythm. S1, S2. Without murmur RESPIRATORY: Diminished breath sounds bilaterally due to body habitus. Breath sounds equal bilaterally. GASTROINTESTINAL: Abdomen obese, non-tender, protuberant. no guarding. MUSCULOSKELETAL: Extremities without significant peripheral edema. He has a femoral sheath in the right inguinal region No obvious deformities. NEUROLOGICAL: Sedated on the ventilator currently. RASS -3. agitated on sedation vacation. A/P Assessment and Plan Assessment: 61yM with h/o htn now with bradycardic arrest and found to have aberrant RCA off left coronary cusp. Likely respiratory failure is secondary to aspiration pneumonitis/pneumonia. given that he is 48h out from presentation and now spiking fevers and remains critically ill, I will start empiric coverage for aspiration pneumonia with Zosyn and jolly culture the patient. his wbc is normal. I will also attempt gentle diuresis since the patient remains hemodynamically stable to attempt to improve ventilatory requirements. for his severe agitation, we will start scheduled seroquel and prn haldol and we will attempt to use these to decrease his sedation requirements and attempt to wean to SBT in the AM. For now, he remains critically ill with multiple organ systems which are life-threatening. Neuro/psych: agitated delirium Currently ordered for a Propofol drip and currently on fentanyl drip at 250 g an hour for sedation/analgesia while intubated Goal of RASS -2 Daily sedation vacation Seroquel 100mg po q8h haldol 5mg iv q4h prn agitation. CV: Coronary artery disease Nonischemic cardiomyopathy secondary to hypertensive heart disease Hypertensive emergency Status post cardiac catheterization by Dr. Moy. No intervention performed. Known coronary artery artery disease to the first and second diagonals the LAD. Aberrant RCA off left coronary cups. Dr. Pendleton consulted: Resume aspirin 81 mg daily and Plavix 75 mg daily. Continue Lipitor 20 mg a night. 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 Currently holding home medications of hydrochlorothiazide 25 mg daily, spironolactone 50 mg twice a day and Norvasc 5 mg by mouth in light of blood pressures currently in the 100s. Patient's baseline blood pressures in the 170s and do not want to induce ischemia. Resp: Acute hypoxemic respiratory failure ACV 14/800/5/100 Ventilator bundle As needed bronchodilator therapy Chest x-ray post code reveals possible left lower lobe infiltrate. Cardio megaly. No other acute cardio pulmonic findings. wean fio2 for goal spo2 > 90%. --increase PEEP to 10. -- AM CXR GI: Hypoalbuminemia Patient is ordered Jevity 1.5 goal 55 cc an hour OG tube will be placed Protonix for GI prophylaxis Colace/Senokot twice a day for bowel regimen : Isidoro for accurate I's and O's in a critically ill patient Endo: Diabetes mellitus type 2 Holding metformin 500 mg by mouth 3 times a day light of recent diet 48 hours. Sliding-scale insulin Accu-Cheks to maintain euglycemia. Low regimen every 6 hours Renal: intravascular hypervolemia Acute kidney injury Creatinine currently within normal limits. d/c MIVF. Monitor BMP in a.m. Lasix 40mg iv x 1 Heme: CBC currently within normal limits. Serial hemoglobins every 6 hours rule out RP bleed per cardiology request. ID: Aspiration pneumonia Monitor for infection --start Zosyn 3.375gm iv q8h --blood and sputum cultures. FEN: Hypokalemia Hypo-magnesium Received 80 mEq KCl IV and 800 mg Mag-Ox. Recheck now post code Electrolyte protocol initiated. Replace as clinically indicated MSK: History of spinal stenosis/laminectomy/left total knee replacement and left ring finger amputation PT evaluate and treat Access - Utilize peripheral IV./Central line if indicated Prophylaxis - GI - Protonix - DVT - SCD/pharmacological prophylaxis possible RP bleed Critical Care: The total critical care time was 32 minutes. Time to perform other separately billable procedures was not included in the critical care time. Discussed with , mother and extended family. Care plan discussed and all questions answered. Discussed with Dr. Marcano on the phone. No interventions at this time. Eloy Aguila MD May 07, 2016 16:48
[2016-05-07] MEDS: QUEtiapine FUMARATE 100 MG TAB PO SCH ×2 (19:44→22:48)
[2016-05-07] MEDS: PIPERACIL-TAZO 3.375 GM PREMIX 50 ML IV SCH ×2 (19:44→22:48)
[2016-05-07] MEDS: HALOPERIDOL LACTATE 5 MG/ML AMP IV PUSH PRN (22:47)
[2016-05-07] MEDS: RESP: ALBUTEROL 2.5 MG/IPRATROPIUM 0.5 MG NEB (PRN) INH (23:09)
[2016-05-07] MEDS ORDERED: LORazepam 2 MG/ML VIAL IV SCH (23:15)
[2016-05-08] VITALS (20 sets, daily range): BP systolic 115–159; BP diastolic 57–91; PULSE 80–118; RESP 22; TEMP 99.4–103.2; O2SAT 93–99
[2016-05-08] MEDS: ACETAMINOPHEN 325 MG TAB PO PRN ×2 (00:50→12:05)
[2016-05-08] MEDS: INSULIN NovoLIN REGULAR SUPPLEMENTAL SCALE SQ SCH ×4 (00:51→18:30)
[2016-05-08] MEDS ORDERED: MIDAZOLAM 100 MG/NS 100 ML DRIP Premix IV SCH (01:15)
[2016-05-08] MEDS: LABETALOL HCL 100 MG/20 ML VIAL IV PUSH PRN ×4 (01:18→16:04)
[2016-05-08] MEDS: PROPOFOL 1000 MG/100 ML INJ 100 ML IV SCH ×3 (01:30→05:49)
[2016-05-08] MEDS: fentaNYL DRIP 250 ML IV SCH ×2 (01:30→05:49)
[2016-05-08] MEDS: RESP: ALBUTEROL 2.5 MG/IPRATROPIUM 0.5 MG NEB (PRN) INH ×2 (03:09→09:31)
[2016-05-08] MEDS: CHLORHEXIDINE GLUCONATE 2 % 1 PACK (2 CLOTHS) TOP SCH (04:00)
[2016-05-08] MEDS: PIPERACIL-TAZO 3.375 GM PREMIX 50 ML IV SCH ×4 (04:38→23:08)
[2016-05-08 04:54] LABS: HEMATOCRIT 41.1 % (39.0-51.0); MEAN CELL VOLUME 88.6 FL (80.0-100.0); MEAN CORPUSCULAR HEMOGLOBIN 29.4 PG (27.0-34.0); MEAN CORPUSCULAR HGB CONC 33.2 % (32.0-36.0); PLATELET COUNT 154 TH/MM3 (150-450); RED BLOOD COUNT 4.64 MIL/MM3 (4.50-5.90); REVIEW FLAG FINAL; WHITE BLOOD COUNT 9.2 TH/MM3 (4.0-11.0)
[2016-05-08 05:17] LABS: BICARBONATE 22.6 MEQ/L (21.0-32.0); POTASSIUM 4.1 MEQ/L (3.5-5.1)
--- NOTE | 2016-05-08 05:23 | RADRPT ---
EXAM DATE/TIME: 05/08/2016 04:44 [facility] COMPARISON: CHEST SINGLE AP, May 06, 2016, 16:15. INDICATIONS : Shortness of breath, possible pulmonary disease. MEDICAL HISTORY : Hypertension. Congestive heart failure. Diabetes mellitus type II. SURGICAL HISTORY : None. ENCOUNTER: Subsequent ACUITY: 1 week PAIN SCORE: Non-responsive. LOCATION: Bilateral chest FINDINGS: The support devices remain in place further no pneumothorax. The right lung remains clear and well-ae rated. There is no consolidation the left lung base which is stable. Heart size is stable. No new fin dings are demonstrated. CONCLUSION: No significant change. Tyrell Kennedy MD on May 08, 2016 at 5:21 Board Certified Radiologist. This report was verified electronically.
[2016-05-08] MEDS: SENNOSIDES 8.6 MG TAB PO SCH ×2 (05:47→18:30)
[2016-05-08] MEDS: QUEtiapine FUMARATE 100 MG TAB PO SCH ×3 (05:47→20:52)
[2016-05-08] MEDS: CLOPIDOGREL 75 MG TAB PO SCH (07:57)
[2016-05-08] MEDS: SODIUM CHLORIDE 0.9% FLUSH 5 ML FLUSH IV FLUSH SCH ×2 (07:58→20:43)
[2016-05-08] MEDS: DOCUSATE SODIUM 100 MG CAP PO SCH ×2 (07:58→20:51)
[2016-05-08] MEDS: ATORVASTATIN 20 MG TAB PO SCH (07:58)
[2016-05-08] MEDS: ASPIRIN 81 MG CHEW TAB CHEW SCH (07:58)
[2016-05-08] MEDS: PANTOPRAZOLE SODIUM 40 MG VIAL IV SCH (07:58)
[2016-05-08] MEDS: ARTIFICIAL TEARS OPTH SOLN 15 ML BTL EACH EYE SCH ×3 (07:59→18:31)
[2016-05-08] MEDS: ACETYLCYSTEINE 20% 6,000 MG/30 ML ORAL SOLN VIAL PO SCH ×2 (08:00→21:00)
--- NOTE | 2016-05-08 08:32 | MA ---
cc: MAURIZIO HUERTA DO DATE May 05, 2016 PROCEDURE Left heart catheterization, coronary angiogram. PREPROCEDURE DIAGNOSIS STEMI Alert, unstable angina, EKG changes, chest pain at rest. POSTPROCEDURE DIAGNOSIS Hypertensive episode/emergency, moderate coronary artery disease, abnormal SRCA off left coronary cusp. MEDICATIONS 1. Verapamil 2.5 mg. 2. Nitroglycerin 200 mcg. 3. Versed 1.5 mg. 4. Fentanyl 75 mcg. 5. Hydralazine 10 mg. 6. Heparin 10,000 units. 7. Zofran 4 mg. 8. During the intubation of the patient, he received Versed 5 mg. 9. Labetalol 20 mg. 10. Fentanyl 200 mcg. 11. Succinylcholine 200 mg. 12. Contrast 250 cc. FLUOROSCOPY 34.6 minutes ESTIMATED BLOOD LOSS 20 cc. PROCEDURAL SUMMARY Low Short is a pleasant 61-year-old male who presented to the emergency room and at that time had EKG changes concerning for ST-elevation with chest pain. STEMI Alert was called. The patient was brought to the lab on an emergent basis. The risks, benefits and alternatives were explained to him and he consented as such. PROCEDURE PERFORMED Right radial access was done using a modified Seldinger technique and placement of a 5/6 slender sheath. The port was aspirated and flushed with ease. JR-4 was used to cross the aortic valve and measurement of left ventricular pressures. LV gram was done which is difficult to determine but appears to have overall normal function with an ejection fraction of 50%. JR-4 was then pulled back across the aortic valve showing no gradient of aortic stenosis. The right coronary ostium was unable to be found in the right coronary cusp, and due to the emergent basis of his EKG changes anteriorly, it was felt that this should be abandoned for left coronary angiogram. At about this time the patient states that he was no longer having chest pain. JR-4 was then exchanged for a JL-3.5. This was used for left coronary angiogram. The left main appears to have no significant disease, it gives off an LAD and left circumflex. The LAD has diffuse 50% disease in the proximal to middle portion. The distal part of the LAD has diffuse 60% disease. The LAD gives off two major diagonals which have 40% stenosis of the ostia. The left circumflex has 30% in the middle portion. The circumflex gives off three to four obtuse marginals which all have mild disease throughout the proximal portions. The JL-3.5 was then exchanged for a 3DRC catheter. Nonselective angiogram from the right coronary cusp shows no ostium noted. At this time the patient was having significant radial spasm and I was unable to torque the catheters to allow for finding the right coronary ostium. At this time it was felt that femoral approach should be attempted. The right femoral artery was accessed using a modified Seldinger technique with a micropuncture needle and placement of a 6-Honduran sheath. The sheath was easily aspirated and flushed. An AL-1 catheter was then advanced over a J-wire to the ascending aorta with the thought of the right coronary artery being anomalous off the left coronary cusp. The right coronary artery appears to come off high anterior on the left coronary cusp about the left main. Nonselective angiography of it shows that it is a dominant vessel with a mid lesion of 40-50%. As the patient had ST changes anteriorly, it was felt that the mid-LAD lesion should be evaluated further with IFR. The AL catheter was then exchanged for an EBU guide and this was engaged in the left main. The patient was given 10,000 units of heparin. A BitePal FFR wire was then advanced to the mid to distal LAD. Multiple IFR measurements were taken at 0.93. At this point it was felt that the LAD could be considered for additional evaluation using adenosine as it is borderline normal vs. testing zone. As the adenosine was being mixed but before it was given to Mr. Short, he started shivering and dry heaving. He was not having chest pain at the time or shortness of breath. He just felt that something was wrong. There was a concern for possible pulmonary edema with his extensive hypertensive episodes on arrival to the emergency room. I asked Dr. Peguero from Critical Care to come down and evaluate him at that time. Decision was made that he should be intubated. He was given 5 mg of Versed by Dr. Peguero and this calmed down his shivering and dry heaving. At that time he was intubated by Dr. Peguero. It was felt at that time that, because of the current situation, that the patient should not receive adenosine and the FFR wire was removed. EBU catheter was then removed over a J-wire. A TR band was placed over the radial sheath with 12 cc of air and the radial sheath was removed. The femoral sheath was sewn in with the plan to take it out later in the ICU. The patient left the catheterization lab guarded but stable. IMPRESSION 1. Mild to moderate coronary artery disease which appears similar to the previous cardiac catheterization in 2009. 2. Anomalous RCA from the left coronary cusp which may take an intraarterial route between the pulmonary artery and aorta which needs to be further evaluated. 3. Hypertensive emergency causing chest pain and EKG changes. 4. Intubated for protection of airway. RECOMMENDATIONS 1. Mr. Short will go to the ICU to be watched by the critical care team. 2. EKG changes appear to be due to hypertensive episode on arrival to the emergency room. 3. 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 Further evaluation should be done with consideration of CT angiogram of his coronaries. 4. Further recommendations based on hospital course. Thank you for allowing me to see Low Short. If there are any questions, please do not hesitate to call. Maurizio Huerta DO VGP/SSB /9:42 PM /8:09 AM MTDD
--- NOTE | 2016-05-08 09:26 | PD.CARD.PN ---
Subjective Subjective Remarks No events over night, bradycardia with decreasing sedation Noted arrhythmia on telemetry, appears to be PACs that don't Objective Medications Current Medications Medications (Trade) Dose Ordered Sig/Isabelle Route Start Time Stop Time Status Last Admin (Tylenol) 650 mg Q6H PRN PO 05/05/16 17:15 05/08/16 00:50 (Protonix Inj) 40 mg DAILY IV 05/06/16 09:00 05/08/16 07:58 (Tears Naturale Opth Soln) 1 drop TID EACH EYE 05/05/16 18:00 05/08/16 07:59 (Zofran Inj) 4 mg Q6H PRN IV 05/05/16 17:15 (Colace) 100 mg BID PO 05/05/16 21:00 05/08/16 07:58 Miscellaneous Information 1 Q361D XX 05/05/16 17:15 05/05/16 17:15 (Chlorhexidine 2% Cloth) 3 pack Taper DAILY@04 TOP 05/06/16 04:00 05/02/17 03:59 05/08/16 04:00 Chlorhexidine Gluconate 3 pack 3 pack UNSCH PRN TOP 05/05/16 17:15 Propofol 100 ml @ 0 mls/hr TITRATE IV 05/05/16 17:15 05/08/16 05:49 Fentanyl Citrate 250 ml @ 0 mls/hr TITRATE IV 05/05/16 17:15 05/08/16 05:49 Potassium Chloride 100 ml @ 50 mls/hr Q2H PRN IV 05/05/16 17:15 (KCl 20 Meq Premix Inj) 100 ml @ 50 mls/hr Q2H PRN IV 05/05/16 17:15 05/06/16 09:00 Potassium Chloride 40 meq 40 meq UNSCH PRN PO/TUBE 05/05/16 17:15 Potassium Chloride 100 ml @ 25 mls/hr UNSCH PRN IV 05/05/16 17:15 Potassium Chloride 100 ml @ 50 mls/hr Q2H PRN IV 05/05/16 17:15 (Magnesium Sulfate Inj/NS Inj) 100 ml @ 50 mls/hr UNSCH PRN IV 05/05/16 17:15 Magnesium Oxide 800 mg 800 mg UNSCH PRN PO 05/05/16 17:15 05/06/16 05:25 (Magnesium Sulfate Inj/NS Inj) 100 ml @ 50 mls/hr UNSCH PRN IV 05/05/16 17:15 Potassium Phosphate 2000 mg 2,000 mg Q4H PRN PO 05/05/16 17:15 (Sodium Phosphate Inj/NS 250 ml Inj) 250 ml @ 42 mls/hr UNSCH PRN IV 05/05/16 17:15 (KCl 40 Meq/30 ml Liq) 40 meq UNSCH PRN PO/TUBE 05/05/16 17:15 Potassium Phosphate 2000 mg 2,000 mg UNSCH PRN PO/TUBE 05/05/16 17:15 (Potassium Phosphate Inj/NS 250 ml Inj) 260 ml @ 42 mls/hr UNSCH PRN IV 05/05/16 17:15 (D50w (Vial) Inj) 25 ml UNSCH PRN IV PUSH 05/05/16 17:15 (Glucagon Inj) 1 mg UNSCH PRN OTHER 05/05/16 17:15 (NovoLIN R SUPPLEMENTAL SCALE) 1 Q6HR SQ 05/05/16 18:00 05/08/16 00:51 (Aspirin Chew) 81 mg DAILY CHEW 05/06/16 09:00 05/08/16 07:58 (Plavix) 75 mg DAILY PO 05/06/16 09:00 05/08/16 07:57 (Lipitor) 20 mg DAILY PO 05/06/16 09:00 05/08/16 07:58 (Senokot) 17.2 mg Q12H PO 05/06/16 18:00 05/08/16 05:47 Acetylcysteine 3 mg 3 mg BID PO 05/06/16 21:00 05/08/16 08:00 (Cardene Inj/NS 250 ml Inj) 260 ml @ 0 mls/hr TITRATE IV 05/06/16 23:30 (Trandate Inj) 20 mg Q2HR PRN IV PUSH 05/06/16 23:30 05/08/16 01:18 Morphine Sulfate 4 mg 4 mg Q3H PRN IV PUSH 05/06/16 23:45 (Zosyn 3.375 Gm Premix) 50 ml @ 100 mls/hr Q6H IV 05/07/16 17:00 05/08/16 04:38 (SEROquel) 100 mg Q8HR PO 05/07/16 17:00 05/08/16 05:47 Haloperidol Lactate 5 mg 5 mg Q4H PRN IV PUSH 05/07/16 16:30 05/07/16 22:47 (Versed Inj) 100 ml @ 0 mls/hr TITRATE IV 05/08/16 01:15 05/08/16 01:19 Vital Signs / I&O Vital Signs Date Time Temp Pulse Resp B/P Pulse Ox O2 Delivery O2 Flow Rate FiO2 05/08/16 06:00 111 05/08/16 05:35 99 60 05/08/16 04:04 94 65 05/08/16 04:00 80 05/08/16 04:00 103.2 83 22 115/57 98 05/08/16 04:00 85 05/08/16 02:00 91 05/08/16 01:10 99 70 05/08/16 00:00 101.2 110 22 124/69 98 05/08/16 00:00 80 05/08/16 00:00 110 05/07/16 23:09 96 70 05/07/16 22:05 100 70 05/07/16 22:00 86 05/07/16 20:54 97 80 05/07/16 20:00 81 05/07/16 20:00 80 05/07/16 20:00 98.9 85 22 141/79 97 05/07/16 16:00 100 05/07/16 16:00 81 05/07/16 16:00 98.9 77 16 107/72 98 05/07/16 15:49 95 100 05/07/16 14:00 81 05/07/16 12:00 99.7 81 24 113/65 95 05/07/16 12:00 100 05/07/16 12:00 81 05/07/16 11:53 95 100 05/07/16 10:00 90 I/O 05/07/16 05/07/16 05/07/16 05/08/16 05/08/16 05/08/16 07:00 15:00 23:00 07:00 15:00 23:00 Intake Total 1145 ml 1411 ml 1215 ml 1121 ml Output Total 300 ml 275 ml 600 ml 350 ml Balance 845 ml 1136 ml 615 ml 771 ml Intake IV Total 965 ml 1411 ml 825 ml 610 ml Tube Feeding 140 ml 350 ml 471 ml Tube Irrigant 40 ml 40 ml 40 ml Output Urine Total 300 ml 275 ml 600 ml 350 ml Stool Total 0 ml 0 ml 0 ml Physical Exam GENERAL: Sedated on the vent SKIN: Warm and dry. HEAD: Atraumatic. Normocephalic. EYES: Pupils equal and round. No scleral icterus. No injection or drainage. ENT: No nasal bleeding or discharge. Mucous membranes pink and moist. NECK: Trachea midline. No JVD. CARDIOVASCULAR: Regular rate and rhythm. RESPIRATORY: No accessory muscle use. Decreased breath sounds bilaterally GASTROINTESTINAL: Abdomen soft, non-tender, nondistended. Hepatic and splenic margins not palpable. MUSCULOSKELETAL: Extremities without clubbing, cyanosis, or edema. No obvious deformities. Right radial no hematoma. Right femoral no hematoma/bruit noted NEUROLOGICAL: Awake and alert. No obvious cranial nerve deficits. Motor grossly within normal limits. Five out of 5 muscle strength in the arms and legs. Normal speech. PSYCHIATRIC: Appropriate mood and affect; insight and judgment normal. Laboratory Laboratory Tests Test 05/08/16 03:50 White Blood Count 9.2 TH/MM3 Red Blood Count 4.64 MIL/MM3 Hemoglobin 13.6 GM/DL Hematocrit 41.1 % Mean Corpuscular Volume 88.6 FL Mean Corpuscular Hemoglobin 29.4 PG Mean Corpuscular Hemoglobin 33.2 % Concent Red Cell Distribution Width 15.0 % Platelet Count 154 TH/MM3 Mean Platelet Volume 8.8 FL Sodium Level 141 MEQ/L Potassium Level 4.1 MEQ/L Chloride Level 108 MEQ/L Carbon Dioxide Level 22.6 MEQ/L Anion Gap 10 MEQ/L Blood Urea Nitrogen 20 MG/DL Creatinine 1.86 MG/DL Estimat Glomerular Filtration 45 ML/MIN Rate Random Glucose 140 MG/DL Calcium Level 7.9 MG/DL Assessment and Plan Problem List: (1) Hypertensive emergency (2) Acute hypoxemic respiratory failure (3) Diabetes mellitus (4) CAD (coronary artery disease) Assessment and Plan 1) HTN emergency, concern for possible STEMI on admission, most like EKG changes from Emergent HTN 2) Cardiac cath showing mild to moderate CAD 3) Anomalous RCA off Left Coronary Cusp, will need CTA of coronaries to define pathway of RCA to make sure not intra-arterial (between PA and Aorta) especially with chest pain/pre-syncopal episodes... but CT done shows that RCA most likely takes an intra-arterial route 4) Blood pressure controlled currently 5) Vent per critical care 6) Bradycardia/possible PEA, possible mucus plug leading to hypoxia? possible hypokalemia? possible squeeze of the RCA if intra-arterial? 7) Air bronchograms on CT, possible PNA/possible aspiration 8) Appears on telemetry to be NSR, occasional blocked PACs Maurziio Marcano DO May 08, 2016 09:26
[2016-05-08] MEDS: niCARdipine INJ 25 MG in SODIUM CHLOR 0.9% 250 ML INJ 250 ML IV SCH ×5 (09:47→23:08)
--- NOTE | 2016-05-08 17:58 | RADRPT ---
EXAM DATE/TIME: 05/08/2016 17:42 [facility] COMPARISON: No previous studies available for comparison. INDICATIONS : Altered mental status not waking up. RADIATION DOSE: 71.33 CTDIvol (mGy) MEDICAL HISTORY : Hypertension. Cardiovascular disease Da[place] SURGICAL HISTORY : None. ENCOUNTER: Initial ACUITY: 1 day PAIN SCALE: Non-responsive LOCATION: cranial TECHNIQUE: Multiple contiguous axial images were obtained of the head. Using automated exposure control and adj ustment of the mA and/or kV according to patient size, radiation dose was kept as low as reasonably a chievable to obtain optimal diagnostic quality images. FINDINGS: CEREBRUM: The ventricles are normal for age. No evidence of midline shift, mass lesion, hemorrhage or acute in farction. No extra-axial fluid collections are seen. POSTERIOR FOSSA: The cerebellum and brainstem are intact. The 4th ventricle is midline. The cerebellopontine angle i s unremarkable. EXTRACRANIAL: The visualized portion of the orbits is intact. There is mucosal thickening in the ethmoid air cells and small posterior air-fluid level left maxillary sinus SKULL: The calvaria is intact. No evidence of skull fracture. CONCLUSION: Intracranially negative. Ethmoid and left maxillary sinus disease includes air-fluid level left maxil mini sinus. Shahid Sin MD on May 08, 2016 at 17:53 Board Certified Radiologist. This report was verified electronically.
--- NOTE | 2016-05-08 20:49 | HHI.CCPN ---
Subjective Remarks/Hospital Course 61-year-old AA male. Date of admission 05/05/2016. Date of consultation 2016. Past medical history includes hypertensive heart disease, hypertension, diabetes mellitus type 2 and spinal stenosis. He presented to [facility] today with history of acute onset of diaphoresis, chest pain and syncope. Her documentation, Chest pain was 7 out of 10 without radiation. Later in the hospital physician, patient did have ST elevation anterior septal leads. I he had a cardiac catheterization in 2009 which revealed moderate coronary disease which documented 50-60% stenosis in the LAD diagonals 1 and 2. Recommended medical management at that time. Dr. Marcano was notified and proceed to the cardiac catheter lab. Patient sees heparin and one aspirin prior to cardiac catheterization. During heart catheterization,, patient became hypertensive, tachypneic, hypoxic and agitated including abdominal pain with nausea and vomiting. Patient was intubated by Dr. Simon and dispensed transferred to room 505a. Currently hemodynamic stable on a propofol drip. Subjective 05/06: Patient required additional sedation overnight. Was moving all 4 extremity spontaneously and strongly. Potassium is replaced overnight along with magnesium. This afternoon approximate 4 PM, patient went into a sinus bradycardia in the 40s. RN cannot locate pulse and possibly went into a PEA arrest. Patient received CPR for approximately 2 minutes. ROSC return immediately. Received 1 mg of epinephrine IV. Blood pressure was 240 systolic. Saturations were above 90% the entire time. Dr. Marcano was made aware. No new recommendations at this time. Electrolytes currently pending. Patient is currently hemodynamic stable and an arterial line/left radial has been placed 05/07: no improvement in delirium or mental status. spiking low grade fevers. 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 CT surgery consulted and declined to operate here: he will need referral once stabilized. fio2 requirements still high. CT chest also with evidence of bibasilar consolidation which may be aspiration pneumonitis vs. pneumonia now that we are 48h out from initial presentation and now spiking fevers. 05/08: delirium persists. continues to spike fevers. jolly cultured yesterday without results yet. holding sedation today. Objective Vital Signs Date Time Temp Pulse Resp B/P Pulse Ox O2 Delivery O2 Flow Rate FiO2 05/08/16 18:00 107 05/08/16 16:30 96 55 05/08/16 16:00 99.4 22 148/91 05/05/16 14:00 Nasal Cannula 2 Intake and Output 05/07/16 05/07/16 05/08/16 08:00 16:00 00:00 Intake Total 1145 ml 1411 ml 1215 ml Output Total 300 ml 275 ml 600 ml Balance 845 ml 1136 ml 615 ml Result Diagram: 05/08/16 0350 05/08/16 0350 Imaging Last Impressions Chest X-Ray 05/05/16 1346 Signed Impressions: Service Date/Time: Thursday, May 05, 2016 14:02 - CONCLUSION: Cardiomegaly. No acute cardiopulmonary disease. Bobyb Lamas MD Objective Remarks GENERAL: 61-year-old AA male, morbidly obese, critically ill currently in bed in no acute distress SKIN: Warm and dry. No rash HEAD: Atraumatic. Normocephalic. EYES: Pupils equal and round around 2 mm bilaterally and reactive. No scleral icterus. No injection or drainage. ENT: No nasal bleeding or discharge. Mucous membranes pink and moist. NECK: Trachea midline. JVD difficult to assess due to body habitus. CARDIOVASCULAR: Distant due to body habitus. Regular rate and rhythm. S1, S2. Without murmur RESPIRATORY: Diminished breath sounds bilaterally due to body habitus. Breath sounds equal bilaterally. GASTROINTESTINAL: Abdomen obese, non-tender, protuberant. no guarding. MUSCULOSKELETAL: Extremities without significant peripheral edema. NEUROLOGICAL: Sedated on the ventilator currently. RASS -3. only minimally responsive to deep painful stimuli. does move all extremities, though not to command. A/P Assessment and Plan Assessment: 61yM with h/o htn now with bradycardic arrest and found to have aberrant RCA off left coronary cusp. Likely respiratory failure is secondary to aspiration pneumonitis/pneumonia. fevers persist, although he remains with normal wbc. delirium persists now with 2 doses of seroquel. will plan to wean sedation and attempt to improve neuro exam. will obtain head CT later this afternoon if no improvement. only mild fio2 improvements on vent. SARAH likely multifactorial, including from contrast and shock state. not on pathway. For now, he remains critically ill with multiple organ systems which are life- threatening. Neuro/psych: agitated delirium metabolic encephalopathy wean prop and fentanyl, sedation holiday. Goal of RASS -2 Daily sedation vacation Seroquel 100mg po q8h haldol 5mg iv q4h prn agitation. head CT this afternoon if no improvements. CV: Coronary artery disease Nonischemic cardiomyopathy secondary to hypertensive heart disease Hypertensive emergency Status post cardiac catheterization by Dr. Moy. No intervention performed. Known coronary artery artery disease to the first and second diagonals the LAD. Aberrant RCA off left coronary cups. Dr. Pendleton consulted: need referral when stable. Resume aspirin 81 mg daily and Plavix 75 mg daily. Continue Lipitor 20 mg a night. Currently holding home medications of hydrochlorothiazide 25 mg daily, spironolactone 50 mg twice a day and Norvasc 5 mg by mouth in light of blood pressures Patient's baseline blood pressures in the 170s and do not want to induce ischemia. Cardene and labetalol as needed for sbp < 180. Resp: Acute hypoxemic respiratory failure Ventilator bundle As needed bronchodilator therapy Chest x-ray post code reveals possible left lower lobe infiltrate. Cardio megaly. No other acute cardio pulmonic findings. wean fio2 for goal spo2 > 90%. --keep PEEP at 10. -- does not meet SBT criteria today given mental status. GI: Hypoalbuminemia Patient is ordered Jevity 1.5 goal 55 cc an hour OG tube will be placed Protonix for GI prophylaxis Colace/Senokot twice a day for bowel regimen : Isidoro for accurate I's and O's in a critically ill patient Endo: Diabetes mellitus type 2 Holding metformin 500 mg by mouth 3 times a day light of recent diet 48 hours. Sliding-scale insulin Accu-Cheks to maintain euglycemia. increase to medium regimen every 6 hours Renal: intravascular hypervolemia Acute kidney injury Creatinine elevated slightly, likely multifactorial, including prerenal from shock and contrast nephropathy continue to hold mivf. Monitor BMP in a.m. will not pursue forced diuresis today given slight rise in cr. Heme: CBC currently within normal limits. daily cbc. ID: Aspiration pneumonia --continue Zosyn 3.375gm iv q8h --blood and sputum cultures NGTD. FEN: Hypokalemia Hypo-magnesium Electrolyte protocol initiated. Replace as clinically indicated MSK: History of spinal stenosis/laminectomy/left total knee replacement and left ring finger amputation PT evaluate and treat Access - Utilize peripheral IV./Central line if indicated Prophylaxis - GI - Protonix - DVT - SCD/hgb stable, will slowly re-introduce pharmacologic dvt prophy with q12h heparin SQ. Critical Care: The total critical care time was 33 minutes. Time to perform other separately billable procedures was not included in the critical care time. Discussed with Dr. Marcano at bedside. Eloy Aguila MD May 08, 2016 20:49
--- NOTE | 2016-05-08 20:58 | EKG ---
Date Performed: 05/06/2016 Time Performed: 17:39:01 PTAGE: 61 years EKG: Sinus rhythm WITH POSSIBLE BLOCKED PAC POSSIBLE ANTERIOR MYOCARDIAL INFARCTION , OF INDETERMINATE AGE ABNORMAL EC G PREVIOUS TRACING : 05/05/2016 21.04 Compared to the previous tracing, non-specific ST/T wave ch anges are no longer noted DOCTOR: Maurizio Marcano Interpretating Date/Time 05/08/2016 20:57:05
[2016-05-08] MEDS ORDERED: DEXTROSE 50% IN WATER 50 ML VIAL(D50) IV PUSH PRN (21:00)
[2016-05-08] MEDS: HEPARIN SODIUM - SQ 10,000 UNITS/ML VIAL SQ SCH (21:30)
--- NOTE | 2016-05-08 22:37 | EKG ---
Date Performed: 05/05/2016 Time Performed: 21:04:02 PTAGE: 61 years EKG: Sinus rhythm WITH FIRST DEGREE AV BLOCK NONSPECIFIC T-WAVE ABNORMALITY ABNORMAL ECG PREVIOUS TRACING : 05/05/2016 13.41 Compared to the previous tracing, rate has decreased DOCTOR: Maurizio Marcano Interpretating Date/Time 05/08/2016 22:36:35
--- NOTE | 2016-05-08 23:46 | EKG ---
Date Performed: 05/05/2016 Time Performed: 13:41:17 PTAGE: 61 years EKG: SINUS TACHYCARDIA LEFT ATRIAL ENLARGEMENT MARKED LEFT AXIS DEVIATION ANTEROSEPTAL MYOCARDIA L INFARCTION ABNORMAL ECG INTERPRETATION BASED ON A DEFAULT AGE OF 40 YEARS PREVIOUS TRACING : 06/11/2009 10.18 Compared to prior tracing no significant change DOCTOR: Maurizio Marcano Interpretating Date/Time 05/08/2016 23:44:51
[2016-05-09] VITALS (23 sets, daily range): BP systolic 133–177; BP diastolic 73–118; PULSE 91–109; RESP 22–25; TEMP 97.6–101.3; O2SAT 90–99
[2016-05-09] MEDS: niCARdipine INJ 25 MG in SODIUM CHLOR 0.9% 250 ML INJ 250 ML IV SCH ×3 (00:43→05:23)
[2016-05-09] MEDS: CHLORHEXIDINE GLUCONATE 2 % 1 PACK (2 CLOTHS) TOP SCH (04:00)
[2016-05-09] MEDS: PIPERACIL-TAZO 3.375 GM PREMIX 50 ML IV SCH ×4 (04:35→23:29)
[2016-05-09] MEDS: SENNOSIDES 8.6 MG TAB PO SCH ×2 (05:19→17:33)
[2016-05-09] MEDS: QUEtiapine FUMARATE 100 MG TAB PO SCH ×3 (05:19→20:12)
[2016-05-09] MEDS: INSULIN NovoLIN REGULAR SUPPLEMENTAL SCALE SQ SCH ×5 (05:28→23:39)
[2016-05-09 06:07] LABS: HEMATOCRIT 38.7 % (39.0-51.0); MEAN CELL VOLUME 88.1 FL (80.0-100.0); MEAN CORPUSCULAR HEMOGLOBIN 29.4 PG (27.0-34.0); MEAN CORPUSCULAR HGB CONC 33.4 % (32.0-36.0); PLATELET COUNT 118 TH/MM3 (150-450); RED CELL DISTRIBUTION WIDTH 14.9 % (11.6-17.2); REVIEW FLAG FINAL; WHITE BLOOD COUNT 10.8 TH/MM3 (4.0-11.0)
[2016-05-09 06:48] LABS: BICARBONATE 21.7 MEQ/L (21.0-32.0)
[2016-05-09 06:50] LABS: POTASSIUM 4.6 MEQ/L (3.5-5.1)
[2016-05-09] MEDS: HEPARIN SODIUM - SQ 10,000 UNITS/ML VIAL SQ SCH ×2 (07:39→20:11)
[2016-05-09] MEDS: ATORVASTATIN 20 MG TAB PO SCH (07:39)
[2016-05-09] MEDS: DOCUSATE SODIUM 100 MG CAP PO SCH ×2 (07:39→20:12)
[2016-05-09] MEDS: PANTOPRAZOLE SODIUM 40 MG VIAL IV SCH (07:39)
[2016-05-09] MEDS: CLOPIDOGREL 75 MG TAB PO SCH (07:40)
[2016-05-09] MEDS: ARTIFICIAL TEARS OPTH SOLN 15 ML BTL EACH EYE SCH ×3 (07:40→17:33)
[2016-05-09] MEDS: ACETYLCYSTEINE 20% 6,000 MG/30 ML ORAL SOLN VIAL PO SCH ×2 (07:40→20:11)
[2016-05-09] MEDS: ASPIRIN 81 MG CHEW TAB CHEW SCH (07:40)
[2016-05-09] MEDS: SODIUM CHLORIDE 0.9% FLUSH 5 ML FLUSH IV FLUSH SCH ×2 (07:42→19:57)
[2016-05-09] MEDS: ACETAMINOPHEN 325 MG TAB PO PRN (07:52)
--- NOTE | 2016-05-09 08:37 | MB ---
cc: NATALIA GOYAL MD DATE OF CONSULTATION: 05/08/2016 DATE OF : 1955 HISTORY OF PRESENT ILLNESS A 61-year-old male who apparently presented to the emergency room with history of acute onset diaphoresis, chest pain and syncope. The chest pain was 7/10. They called a STEMI Alert. He has prior history of heart catheterization in 2009 which revealed moderate coronary artery disease with documented 50-60% in the LAD, diagonals 1 and 2. Medical management at that time. The patient underwent heart catheterization for the STEMI Alert and found to have mild to moderate coronary artery disease similar to his cardiac cath in 2009. Incidentally found an anomalous RCA with left coronary cusp which may take an intra-arterial route between the pulmonary artery and aorta, needing to have further investigation. We were consulted to evaluate for this diagnosis. Also, hypertensive emergency causing the chest pain and EKG. During the heart catheterization he apparently became hypertensive, tachypneic, hypoxic and agitated. He required immediate intubation and transfer thereafter to room [facility] where he still remains intubated and lightly sedated. Per the at the bedside he does groan, does move his lower and upper extremities with noxious stimulation at this time. PAST MEDICAL HISTORY 1. Hypertension. 2. Coronary artery disease. 3. Non-ischemic cardiomyopathy secondary to hypertensive disease. 4. Diabetes mellitus type 2. PAST SURGICAL HISTORY 1. Laminectomy. 2. Left ring finger amputation. 3. Left total knee arthroplasty. 4. Cardiac cath 2009. ALLERGIES PENICILLIN. MEDICATIONS Home meds include: 1. Metformin. 2. Spironolactone. 3. Norvasc. 4. HCTZ. 5. Plavix 75 mg daily. FAMILY HISTORY Both parents had hypertension. 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 No history of alcohol or IV drug use. REVIEW OF SYSTEMS Unobtainable. PHYSICAL EXAMINATION VITAL SIGNS: Blood pressure at this time is 148/90, heart rate 90, temperature max 99.4. GENERAL: The patient is lightly sedated and intubated on a ventilator, PRVC mode at 55% FIO2. HEENT: Pupils are approximately 2-3 mm, midline, sluggish. He is orally intubated with a bite block in place. NECK: Supple. No JVD. HEART: Heart sounds S1, S2. Regular rate and rhythm. No audible rubs or gallops. LUNGS: Coarse bilateral breath sounds equal bilaterally. Trachea is midline. ABDOMEN: Obese, soft, nontender. No masses or organomegaly. : Chaudhry catheter in place. EXTREMITIES: No cyanosis, clubbing or edema. LABORATORY DATA Lab work shows hemoglobin 13, hematocrit 41, white cell count 9.2, platelet count 154. Sodium 141, potassium 4.1, BUN 20. Creatinine 1.86; on admission 1.33. Troponin 0.22. INR 1.08. MRSA screen negative. Micro shows negative blood cultures in 24 hours. Sputum is pending. Urine is pending. Current medications include: 1. Versed. 2. Zosyn. 3. Plavix; last dose this morning. 4. Aspirin. 5. Lipitor. 6. Propofol. IMPRESSION This is a 61-year-old male with STEMI Alert, prior history of coronary artery disease treated medically, now found per cath to have mild to moderate disease which appears to be similar to the previous cath in 2009. Per the cath the right coronary ostium was unable to be found in the right coronary cusp and due to the emergent basis of his EKG changes anteriorly, it was felt that this should be abandoned for left coronary angiogram. The LAD had diffuse to 50% disease in the proximal to middle portion. The distal had diffuse disease of 60%. The LAD gives off two major diagonals with a 40% stenosis of the ostium. The left circumflex has 30%. They went in through the groin after that. The right coronary artery appeared to come off high anterior on the left coronary cusp above the left main. There was a mid lesion of 40-50%. Again, we were consulted to evaluate for the anomalous RCA. At this time recommend the patient recover from his intubation to be safely extubated and then evaluated for possible unroofing of the RCA which would need to be evaluated at a later date at [facility] in [place]. Further planning as per Dr. Natalia Goyal. Dictated by: BECCA Guerra Natalia FITZGERALD/DESEAN /5:11 PM /8:34 AM
--- NOTE | 2016-05-09 10:53 | PD.CAR.PN ---
CVT Progress Note Subjective/Hospital Course: 61-year-old AA male. admit date 05/05/2016. Presented to [facility] today with history of acute onset of diaphoresis, chest pain and syncope. Her documentation, Chest pain was 7 out of 10 without radiation. Later in the hospital physician, patient did have ST elevation anterior septal leads. I he had a cardiac catheterization in 2009 which revealed moderate coronary disease which documented 50-60% stenosis in the LAD diagonals 1 and 2. Recommended medical management at that time. STEMI alert called , Dr. Marcano was notified and proceed to the cardiac catheter lab. Past medical history includes hypertensive heart disease, hypertension, diabetes mellitus type 2 and spinal stenosis. During heart catheterization,, patient became hypertensive, tachypneic, hypoxic and agitated including abdominal pain with nausea and vomiting. PT was intubated and transferred to [facility] 05/06 pt had sinus bradycardia in the 40s. RN cannot locate pulse and possibly went into a PEA arrest. Patient received CPR for approximately 2 minutes. ROSC return immediately. Received 1 mg of epinephrine IV. Blood pressure was 240 systolic. Saturations were above 90% the entire time. 05/07:. 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 05/08 consultation completed : will need referral to [facility], once stabilized and extubated 05/09 pt remains on vent, off sedation, localizes to pain, grimaces, pupils 2mm equal and sluggish remain on 50% fi02, +12 peep Objective: GENERAL: orally intubated on vent PRVC mode SKIN: Warm and dry. HEAD: Normocephalic. EYES: pupils 2mm equal and sluggish No scleral icterus. No injection or drainage. NECK: Supple, trachea midline. No JVD or lymphadenopathy. CARDIOVASCULAR: irregular rate and rhythm Regular rate and rhythm without murmurs, gallops, or rubs. RESPIRATORY: Breath sounds equal bilaterally. No accessory muscle use. GASTROINTESTINAL: obese , OG tube in place, on tube feeds Abdomen soft, + bowel sounds MUSCULOSKELETAL: No cyanosis, or edema. BACK: Nontender without obvious deformity. No CVA tenderness. Vital Signs Date Time Temp Pulse Resp B/P Pulse Ox O2 Delivery O2 Flow Rate FiO2 05/09/16 10:26 96 50 05/09/16 10:00 107 05/09/16 08:00 109 05/09/16 08:00 80 05/09/16 08:00 101.3 109 22 133/73 95 05/09/16 07:54 96 55 05/09/16 06:00 108 05/09/16 05:45 94 55 05/09/16 04:00 98.8 91 22 137/73 95 05/09/16 04:00 80 05/09/16 04:00 91 05/09/16 03:16 95 55 05/09/16 02:00 95 05/09/16 01:14 95 55 05/09/16 00:00 80 05/09/16 00:00 94 05/09/16 00:00 99.0 94 22 168/84 94 05/08/16 23:31 93 55 05/08/16 22:00 89 05/08/16 21:00 96 55 05/08/16 20:00 80 05/08/16 20:00 99.8 80 22 158/84 93 05/08/16 20:00 80 05/08/16 18:00 107 05/08/16 16:30 96 55 05/08/16 16:00 80 05/08/16 16:00 99.4 95 22 148/91 94 05/08/16 16:00 95 05/08/16 14:23 99.9 05/08/16 14:00 93 05/08/16 12:00 118 05/08/16 12:00 80 05/08/16 12:00 102.0 118 22 159/82 99 Labs: Laboratory Tests Test 05/09/16 05:40 White Blood Count 10.8 TH/MM3 (4.0-11.0) Red Blood Count 4.40 MIL/MM3 (4.50-5.90) Hemoglobin 12.9 GM/DL (13.0-17.0) Hematocrit 38.7 % (39.0-51.0) Mean Corpuscular Volume 88.1 FL (80.0-100.0) Mean Corpuscular Hemoglobin 29.4 PG (27.0-34.0) Mean Corpuscular Hemoglobin 33.4 % Concent (32.0-36.0) Red Cell Distribution Width 14.9 % (11.6-17.2) Platelet Count 118 TH/MM3 (150-450) Mean Platelet Volume 8.6 FL (7.0-11.0) Sodium Level 143 MEQ/L (136-145) Potassium Level 4.6 MEQ/L (3.5-5.1) Chloride Level 111 MEQ/L (98-107) Carbon Dioxide Level 21.7 MEQ/L (21.0-32.0) Anion Gap 10 MEQ/L (5-15) Blood Urea Nitrogen 21 MG/DL (7-18) Creatinine 1.58 MG/DL (0.60-1.30) Estimat Glomerular Filtration 54 ML/MIN (>89) Rate Random Glucose 233 MG/DL (74-106) Calcium Level 8.1 MG/DL (8.5-10.1) Result Diagram: 05/09/16 0540 05/09/16 0540 (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 Plan: will need to referral to [facility] once extubated and stable (2) Hypertensive emergency (3) Acute hypoxemic respiratory failure (4) Diabetes mellitus (5) CAD (coronary artery disease) Zoya Laura May 09, 2016 10:53
--- NOTE | 2016-05-09 11:08 | HHI.CCPN ---
Subjective Remarks/Hospital Course 61-year-old AA male. Date of admission 05/05/2016. Date of consultation 2016. Past medical history includes hypertensive heart disease, hypertension, diabetes mellitus type 2 and spinal stenosis. He presented to [facility] today with history of acute onset of diaphoresis, chest pain and syncope. Her documentation, Chest pain was 7 out of 10 without radiation. Later in the hospital physician, patient did have ST elevation anterior septal leads. I he had a cardiac catheterization in 2009 which revealed moderate coronary disease which documented 50-60% stenosis in the LAD diagonals 1 and 2. Recommended medical management at that time. Dr. Marcano was notified and proceed to the cardiac catheter lab. Patient sees heparin and one aspirin prior to cardiac catheterization. During heart catheterization,, patient became hypertensive, tachypneic, hypoxic and agitated including abdominal pain with nausea and vomiting. Patient was intubated by Dr. Simon and dispensed transferred to room 505a. Currently hemodynamic stable on a propofol drip. Subjective 05/06: Patient required additional sedation overnight. Was moving all 4 extremity spontaneously and strongly. Potassium is replaced overnight along with magnesium. This afternoon approximate 4 PM, patient went into a sinus bradycardia in the 40s. RN cannot locate pulse and possibly went into a PEA arrest. Patient received CPR for approximately 2 minutes. ROSC return immediately. Received 1 mg of epinephrine IV. Blood pressure was 240 systolic. Saturations were above 90% the entire time. Dr. Marcano was made aware. No new recommendations at this time. Electrolytes currently pending. Patient is currently hemodynamic stable and an arterial line/left radial has been placed 05/07: no improvement in delirium or mental status. spiking low grade fevers. 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 CT surgery consulted and declined to operate here: he will need referral once stabilized. fio2 requirements still high. CT chest also with evidence of bibasilar consolidation which may be aspiration pneumonitis vs. pneumonia now that we are 48h out from initial presentation and now spiking fevers. 05/08: delirium persists. continues to spike fevers. jolly cultured yesterday without results yet. holding sedation today. 05/09: delirium slightly improved. waking up on SAT, weakly following commands. cultures still NGTD. hypoxia slightly improved. Objective Vital Signs Date Time Temp Pulse Resp B/P Pulse Ox O2 Delivery O2 Flow Rate FiO2 1/24/17 10:26 96 50 05/09/16 10:00 107 05/09/16 08:00 101.3 22 133/73 05/05/16 14:00 Nasal Cannula 2 Intake and Output 05/08/16 05/08/16 05/09/16 08:00 16:00 00:00 Intake Total 1121 ml 1262 ml 1350 ml Output Total 350 ml 500 ml 800 ml Balance 771 ml 762 ml 550 ml Result Diagram: 05/09/16 0540 05/09/16 0540 Imaging Last Impressions Chest X-Ray 05/05/16 1346 Signed Impressions: Service Date/Time: Thursday, May 05, 2016 14:02 - CONCLUSION: Cardiomegaly. No acute cardiopulmonary disease. Bobby Lamas MD Objective Remarks GENERAL: 61-year-old AA male, morbidly obese, critically ill currently in bed SKIN: Warm and dry. No rash HEAD: Atraumatic. Normocephalic. EYES: Pupils equal and round around 2 mm bilaterally and reactive. No scleral icterus. No injection or drainage. ENT: No nasal bleeding or discharge. Mucous membranes pink and moist. NECK: Trachea midline. JVD difficult to assess due to body habitus. CARDIOVASCULAR: Distant due to body habitus. Regular rate and rhythm. S1, S2. Without murmur RESPIRATORY: Diminished breath sounds bilaterally due to body habitus. Breath sounds equal bilaterally. GASTROINTESTINAL: Abdomen obese, non-tender, protuberant. no guarding. MUSCULOSKELETAL: Extremities without significant peripheral edema. NEUROLOGICAL: Sedated on the ventilator currently. RASS -2. weakly follows commands. moves all extremities spontaneously. A/P Assessment and Plan Assessment: 61yM with h/o htn now with bradycardic arrest and found to have aberrant RCA off left coronary cusp. Likely respiratory failure is secondary to aspiration pneumonitis/pneumonia. fevers persist, although he remains with normal wbc. improving mentation slowly. SARAH likely multifactorial, including from contrast and shock state, slightly improved. not on pathway. For now, he remains critically ill with multiple organ systems which are life-threatening. Neuro/psych: agitated delirium metabolic encephalopathy wean prop and fentanyl, sedation holiday. Goal of RASS -2 Daily sedation vacation Seroquel 100mg po q8h haldol 5mg iv q4h prn agitation. head CT 05/08: negative acute. CV: Coronary artery disease Nonischemic cardiomyopathy secondary to hypertensive heart disease Hypertensive emergency Status post cardiac catheterization by Dr. Moy. No intervention performed. Known coronary artery artery disease to the first and second diagonals the LAD. Aberrant RCA off left coronary cups. Dr. Pendleton consulted: need referral when stable. Resume aspirin 81 mg daily and Plavix 75 mg daily. Continue Lipitor 20 mg a night. Currently holding home medications of hydrochlorothiazide 25 mg daily, spironolactone 50 mg twice a day restart Norvasc 10 mg by mouth in light of blood pressures Patient's baseline blood pressures in the 170s and do not want to induce ischemia. Cardene and labetalol as needed for sbp < 180. Resp: Acute hypoxemic respiratory failure Ventilator bundle As needed bronchodilator therapy Chest x-ray post code reveals possible left lower lobe infiltrate. Cardiomegaly. No other acute cardio pulmonic findings. wean fio2 for goal spo2 > 90%. --keep PEEP at 12, will consider weaning to 10 later today. -- does not meet SBT criteria today given high vent support. GI: Hypoalbuminemia Constipation Patient is ordered Jevity 1.5 goal 55 cc an hour OG tube Protonix for GI prophylaxis Colace/Senokot twice a day for bowel regimen, increase to add MiraLAX bid and lactulose daily. : Isidoro for accurate I's and O's in a critically ill patient Endo: Diabetes mellitus type 2 Holding metformin 500 mg by mouth 3 times a day light of recent diet 48 hours. Sliding-scale insulin Accu-Cheks to maintain euglycemia. medium regimen every 6 hours Renal: intravascular hypervolemia Acute kidney injury Creatinine elevated slightly, likely multifactorial, including prerenal from shock and contrast nephropathy continue to hold mivf. Monitor BMP in a.m. will again attempt forced diuresis with lasix 40mg iv x 1. Heme: CBC currently within normal limits. daily cbc. ID: Aspiration pneumonia --continue Zosyn 3.375gm iv q8h --blood and sputum cultures NGTD. FEN: Hypokalemia Hypo-magnesium Electrolyte protocol initiated. Replace as clinically indicated MSK: History of spinal stenosis/laminectomy/left total knee replacement and left ring finger amputation PT evaluate and treat Access - Utilize peripheral IV./Central line if indicated Prophylaxis - GI - Protonix - DVT - SCD/hgb stable, will slowly re-introduce pharmacologic dvt prophy with q12h heparin SQ. Critical Care: The total critical care time was 39 minutes. Time to perform other separately billable procedures was not included in the critical care time. Discussed with Dr. Marcano at bedside. Eloy Aguila MD May 09, 2016 11:08
[2016-05-09] MEDS: HALOPERIDOL LACTATE 5 MG/ML AMP IV PUSH PRN ×2 (11:49→16:11)
[2016-05-09] MEDS ORDERED: FUROSEMIDE 40 MG/4 ML VIAL IV PUSH ONE ×2 (11:50→17:00)
[2016-05-09] MEDS: POLYETHYLENE GLYCOL 17 GM PKG PO SCH ×2 (11:59→20:12)
[2016-05-09] MEDS: LACTULOSE SYRUP 20 GM/30 ML CUP PO SCH (11:59)
[2016-05-09] MEDS: LABETALOL HCL 100 MG/20 ML VIAL IV PUSH PRN ×3 (12:17→23:50)
[2016-05-09] MEDS: MORPHINE SULFATE 4 MG/ML INJ IV PUSH PRN (13:58)
--- NOTE | 2016-05-09 16:50 | EKG ---
Date Performed: 05/08/2016 Time Performed: 09:20:08 PTAGE: 61 years EKG: Sinus rhythm with 1st degree A-V block. Possible anterior infarct - age undetermined Lateral T wave changes Nghia red to prior tracing no significant change Abnormal ECG PREVIOUS TRACING 05/06/2016 @17.39.01 DOCTOR: Alycia Pool Interpretating Date/Time 05/09/2016 16:49:42
--- NOTE | 2016-05-09 17:23 | PD.CARD.PN ---
Subjective Subjective Remarks Currently on the vent, no sedation, reacting to pain somewhat Patient seen this morning Objective Medications Current Medications Medications (Trade) Dose Ordered Sig/Isabelle Route Start Time Stop Time Status Last Admin (NS Flush) 2 ml UNSCH PRN IV FLUSH 05/05/16 17:15 (NS Flush) 2 ml BID IV FLUSH 05/05/16 21:00 05/09/16 07:42 (Tylenol) 650 mg Q6H PRN PO 05/05/16 17:15 05/09/16 07:52 (Protonix Inj) 40 mg DAILY IV 05/06/16 09:00 05/09/16 07:39 (Tears Naturale Opth Soln) 1 drop TID EACH EYE 05/05/16 18:00 05/09/16 11:59 (Zofran Inj) 4 mg Q6H PRN IV 05/05/16 17:15 (Colace) 100 mg BID PO 05/05/16 21:00 05/09/16 07:39 Miscellaneous Information 1 Q361D XX 05/05/16 17:15 05/05/16 17:15 (Chlorhexidine 2% Cloth) 3 pack Taper DAILY@04 TOP 05/06/16 04:00 05/02/17 03:59 05/09/16 04:00 Chlorhexidine Gluconate 3 pack 3 pack UNSCH PRN TOP 05/05/16 17:15 Propofol 100 ml @ 0 mls/hr TITRATE IV 05/05/16 17:15 05/08/16 05:49 Fentanyl Citrate 250 ml @ 0 mls/hr TITRATE IV 05/05/16 17:15 05/08/16 05:49 Potassium Chloride 100 ml @ 50 mls/hr Q2H PRN IV 05/05/16 17:15 (KCl 20 Meq Premix Inj) 100 ml @ 50 mls/hr Q2H PRN IV 05/05/16 17:15 05/06/16 09:00 Potassium Chloride 40 meq 40 meq UNSCH PRN PO/TUBE 05/05/16 17:15 Potassium Chloride 100 ml @ 25 mls/hr UNSCH PRN IV 05/05/16 17:15 Potassium Chloride 100 ml @ 50 mls/hr Q2H PRN IV 05/05/16 17:15 (Magnesium Sulfate Inj/NS Inj) 100 ml @ 50 mls/hr UNSCH PRN IV 05/05/16 17:15 Magnesium Oxide 800 mg 800 mg UNSCH PRN PO 05/05/16 17:15 05/06/16 05:25 (Magnesium Sulfate Inj/NS Inj) 100 ml @ 50 mls/hr UNSCH PRN IV 05/05/16 17:15 Potassium Phosphate 2000 mg 2,000 mg Q4H PRN PO 05/05/16 17:15 (Sodium Phosphate Inj/NS 250 ml Inj) 250 ml @ 42 mls/hr UNSCH PRN IV 05/05/16 17:15 (KCl 40 Meq/30 ml Liq) 40 meq UNSCH PRN PO/TUBE 05/05/16 17:15 Potassium Phosphate 2000 mg 2,000 mg UNSCH PRN PO/TUBE 05/05/16 17:15 (Potassium Phosphate Inj/NS 250 ml Inj) 260 ml @ 42 mls/hr UNSCH PRN IV 05/05/16 17:15 (Glucagon Inj) 1 mg UNSCH PRN OTHER 05/05/16 17:15 (Aspirin Chew) 81 mg DAILY CHEW 05/06/16 09:00 05/09/16 07:40 (Plavix) 75 mg DAILY PO 05/06/16 09:00 05/09/16 07:40 (Lipitor) 20 mg DAILY PO 05/06/16 09:00 05/09/16 07:39 (Senokot) 17.2 mg Q12H PO 05/06/16 18:00 05/09/16 05:19 Acetylcysteine 3 mg 3 mg BID PO 05/06/16 21:00 05/09/16 07:40 (Cardene Inj/NS 250 ml Inj) 260 ml @ 0 mls/hr TITRATE IV 05/06/16 23:30 05/09/16 05:23 (Trandate Inj) 20 mg Q2HR PRN IV PUSH 05/06/16 23:30 05/09/16 16:49 Morphine Sulfate 4 mg 4 mg Q3H PRN IV PUSH 05/06/16 23:45 05/09/16 13:58 (Zosyn 3.375 Gm Premix) 50 ml @ 100 mls/hr Q6H IV 05/07/16 17:00 05/09/16 16:26 (SEROquel) 100 mg Q8HR PO 05/07/16 17:00 05/09/16 13:48 Haloperidol Lactate 5 mg 5 mg Q4H PRN IV PUSH 05/07/16 16:30 05/09/16 16:11 (Versed Inj) 100 ml @ 0 mls/hr TITRATE IV 05/08/16 01:15 05/08/16 01:19 (D50w (Vial) Inj) 25 ml UNSCH PRN IV PUSH 05/08/16 21:00 (NovoLIN R SUPPLEMENTAL SCALE) 1 Q6HR SQ 05/09/16 00:00 05/09/16 11:50 (Heparin Inj) 5,000 units Q12HR SQ 05/08/16 21:00 05/09/16 07:39 (Norvasc) 10 mg DAILY PO 05/09/16 11:04 05/09/16 11:59 (Miralax) 17 gm BID PO 05/09/16 11:04 05/09/16 11:59 (Lactulose Liq) 30 ml DAILY PO 05/09/16 11:04 05/09/16 11:59 Vital Signs / I&O Vital Signs Date Time Temp Pulse Resp B/P Pulse Ox O2 Delivery O2 Flow Rate FiO2 05/09/16 17:09 95 40 05/09/16 16:00 40 05/09/16 16:00 104 05/09/16 16:00 99.4 104 22 167/118 90 05/09/16 15:08 93 40 05/09/16 14:00 100 05/09/16 13:03 91 40 05/09/16 12:00 40 05/09/16 12:00 99.1 109 22 177/92 95 05/09/16 12:00 107 05/09/16 10:26 96 50 05/09/16 10:00 107 05/09/16 08:00 109 05/09/16 08:00 55 05/09/16 08:00 101.3 109 22 133/73 95 05/09/16 07:54 96 55 05/09/16 06:00 108 05/09/16 05:45 94 55 05/09/16 04:00 98.8 91 22 137/73 95 05/09/16 04:00 80 05/09/16 04:00 91 05/09/16 03:16 95 55 05/09/16 02:00 95 05/09/16 01:14 95 55 05/09/16 00:00 80 05/09/16 00:00 94 05/09/16 00:00 99.0 94 22 168/84 94 05/08/16 23:31 93 55 05/08/16 22:00 89 05/08/16 21:00 96 55 05/08/16 20:00 80 05/08/16 20:00 99.8 80 22 158/84 93 05/08/16 20:00 80 05/08/16 18:00 107 I/O 05/08/16 05/08/16 05/08/16 05/09/16 05/09/16 05/09/16 07:00 15:00 23:00 07:00 15:00 23:00 Intake Total 1121 ml 1262 ml 1350 ml 1530 ml 764 ml Output Total 350 ml 500 ml 800 ml 450 ml 1200 ml Balance 771 ml 762 ml 550 ml 1080 ml -436 ml Intake Oral 0 ml 0 ml IV Total 610 ml 576 ml 990 ml 1120 ml 160 ml Tube Feeding 471 ml 486 ml 300 ml 350 ml 504 ml Tube Irrigant 40 ml 200 ml Other 60 ml 60 ml 100 ml Output Urine Total 350 ml 500 ml 800 ml 450 ml 1200 ml Stool Total 0 ml 0 ml 0 ml 0 ml 0 ml Physical Exam GENERAL: Off sedation, withdraws from pain SKIN: Warm and dry. HEAD: Atraumatic. Normocephalic. EYES: Pupils equal and round. No scleral icterus. No injection or drainage. ENT: No nasal bleeding or discharge. Mucous membranes pink and moist. NECK: Trachea midline. No JVD. CARDIOVASCULAR: Regular rate and rhythm. RESPIRATORY: No accessory muscle use. Decreased breath sounds bilaterally GASTROINTESTINAL: Abdomen soft, non-tender, nondistended. Hepatic and splenic margins not palpable. MUSCULOSKELETAL: Extremities without clubbing, cyanosis, or edema. No obvious deformities. Right radial no hematoma. Right femoral no hematoma/bruit noted NEUROLOGICAL: Off sedation, withdraws from pain Laboratory Laboratory Tests Test 05/09/16 05:40 White Blood Count 10.8 TH/MM3 Red Blood Count 4.40 MIL/MM3 Hemoglobin 12.9 GM/DL Hematocrit 38.7 % Mean Corpuscular Volume 88.1 FL Mean Corpuscular Hemoglobin 29.4 PG Mean Corpuscular Hemoglobin 33.4 % Concent Red Cell Distribution Width 14.9 % Platelet Count 118 TH/MM3 Mean Platelet Volume 8.6 FL Sodium Level 143 MEQ/L Potassium Level 4.6 MEQ/L Chloride Level 111 MEQ/L Carbon Dioxide Level 21.7 MEQ/L Anion Gap 10 MEQ/L Blood Urea Nitrogen 21 MG/DL Creatinine 1.58 MG/DL Estimat Glomerular Filtration 54 ML/MIN Rate Random Glucose 233 MG/DL Calcium Level 8.1 MG/DL Assessment and Plan Problem List: (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 (2) Hypertensive emergency (3) Acute hypoxemic respiratory failure (4) Diabetes mellitus (5) CAD (coronary artery disease) Assessment and Plan 1) HTN emergency, concern for possible STEMI on admission, most like EKG changes from Emergent HTN 2) Cardiac cath showing mild to moderate CAD 3) Anomalous RCA off Left Coronary Cusp, will need CTA of coronaries to define pathway of RCA to make sure not intra-arterial (between PA and Aorta) especially with chest pain/pre-syncopal episodes... but CT done shows that RCA most likely takes an intra-arterial route 4) Blood pressure elevated, currently on Cardene drip 5) Vent per critical care 6) Bradycardia/possible PEA, possible mucus plug leading to hypoxia? possible hypokalemia? possible squeeze of the RCA if intra-arterial? 7) Air bronchograms on CT, possible PNA/possible aspiration 8) Appears on telemetry to be NSR, occasional blocked PACs 9) Sedation off, slow neurologic progression Maurizio Marcano DO May 09, 2016 17:23
[2016-05-09] MEDS: PROPOFOL 1000 MG/100 ML INJ 100 ML IV SCH ×3 (19:05→22:16)
[2016-05-09] MEDS: RESP: ALBUTEROL 2.5 MG/IPRATROPIUM 0.5 MG NEB (PRN) INH (20:03)
[2016-05-09 23:41] LABS: BICARBONATE 22.7 MEQ/L (21.0-32.0); POTASSIUM 4.8 MEQ/L (3.5-5.1)
[2016-05-10] VITALS (21 sets, daily range): BP systolic 133–176; BP diastolic 80–106; PULSE 96–100; RESP 22–25; TEMP 98.8–99.9; O2SAT 91–98
[2016-05-10] MEDS: PROPOFOL 1000 MG/100 ML INJ 100 ML IV SCH ×8 (01:35→22:34)
[2016-05-10] MEDS: RESP: ALBUTEROL 2.5 MG/IPRATROPIUM 0.5 MG NEB (PRN) INH ×3 (02:20→20:12)
[2016-05-10] MEDS: LABETALOL HCL 100 MG/20 ML VIAL IV PUSH PRN ×6 (02:30→23:14)
[2016-05-10] MEDS: CHLORHEXIDINE GLUCONATE 2 % 1 PACK (2 CLOTHS) TOP SCH (04:00)
[2016-05-10] MEDS: PIPERACIL-TAZO 3.375 GM PREMIX 50 ML IV SCH ×4 (05:22→22:35)
[2016-05-10] MEDS: SENNOSIDES 8.6 MG TAB PO SCH ×3 (05:22→21:43)
[2016-05-10] MEDS: QUEtiapine FUMARATE 100 MG TAB PO SCH ×3 (05:22→21:01)
[2016-05-10 05:27] LABS: HEMATOCRIT 39.9 % (39.0-51.0); MEAN CORPUSCULAR HGB CONC 32.2 % (32.0-36.0); PLATELET COUNT 131 TH/MM3 (150-450); RED BLOOD COUNT 4.44 MIL/MM3 (4.50-5.90); RED CELL DISTRIBUTION WIDTH 14.9 % (11.6-17.2); REVIEW FLAG FINAL
[2016-05-10 05:50] LABS: BICARBONATE 21.5 MEQ/L (21.0-32.0); POTASSIUM 4.1 MEQ/L (3.5-5.1)
[2016-05-10] MEDS: INSULIN NovoLIN REGULAR SUPPLEMENTAL SCALE SQ SCH ×4 (06:36→23:19)
--- NOTE | 2016-05-10 08:43 | HHI.CCPN ---
Subjective Remarks/Hospital Course 61-year-old AA male. Date of admission 05/05/2016. Date of consultation 2016. Past medical history includes hypertensive heart disease, hypertension, diabetes mellitus type 2 and spinal stenosis. He presented to [facility] today with history of acute onset of diaphoresis, chest pain and syncope. Her documentation, Chest pain was 7 out of 10 without radiation. Later in the hospital physician, patient did have ST elevation anterior septal leads. I he had a cardiac catheterization in 2009 which revealed moderate coronary disease which documented 50-60% stenosis in the LAD diagonals 1 and 2. Recommended medical management at that time. Dr. Marcano was notified and proceed to the cardiac catheter lab. Patient sees heparin and one aspirin prior to cardiac catheterization. During heart catheterization,, patient became hypertensive, tachypneic, hypoxic and agitated including abdominal pain with nausea and vomiting. Patient was intubated by Dr. Simon and dispensed transferred to room 505a. Currently hemodynamic stable on a propofol drip. Subjective 05/06: Patient required additional sedation overnight. Was moving all 4 extremity spontaneously and strongly. Potassium is replaced overnight along with magnesium. This afternoon approximate 4 PM, patient went into a sinus bradycardia in the 40s. RN cannot locate pulse and possibly went into a PEA arrest. Patient received CPR for approximately 2 minutes. ROSC return immediately. Received 1 mg of epinephrine IV. Blood pressure was 240 systolic. Saturations were above 90% the entire time. Dr. Marcano was made aware. No new recommendations at this time. Electrolytes currently pending. Patient is currently hemodynamic stable and an arterial line/left radial has been placed 05/07: no improvement in delirium or mental status. spiking low grade fevers. 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 CT surgery consulted and declined to operate here: he will need referral once stabilized. fio2 requirements still high. CT chest also with evidence of bibasilar consolidation which may be aspiration pneumonitis vs. pneumonia now that we are 48h out from initial presentation and now spiking fevers. 05/08: delirium persists. continues to spike fevers. jolly cultured yesterday without results yet. holding sedation today. 05/09: delirium slightly improved. waking up on SAT, weakly following commands. cultures still NGTD. hypoxia slightly improved. 05/10: delirium improving. weakly following commands still. cultures still NGTD. fevers persist, although fever curve appears to be improving. hypoxia continues to improve. still remains very critically ill. Objective Vital Signs Date Time Temp Pulse Resp B/P Pulse Ox O2 Delivery O2 Flow Rate FiO2 05/10/16 08:01 95 45 05/10/16 06:00 96 05/10/16 04:15 133/86 05/10/16 04:00 98.8 23 Intake and Output 05/09/16 05/09/16 05/10/16 08:00 16:00 00:00 Intake Total 1530 ml 764 ml 872 ml Output Total 450 ml 1200 ml 1750 ml Balance 1080 ml -436 ml -878 ml Result Diagram: 05/10/16 0340 05/10/16 0340 Other Results Microbiology Date/Time Procedure Status Source Growth 05/08/16 03:50 Urine Culture - Final Complete Urine Catheterized Urine NO GROWTH IN 48 HOURS. Imaging Last Impressions Chest X-Ray 05/05/16 1346 Signed Impressions: Service Date/Time: Thursday, May 05, 2016 14:02 - CONCLUSION: Cardiomegaly. No acute cardiopulmonary disease. Bobby Lamas MD Objective Remarks GENERAL: 61-year-old AA male, morbidly obese, critically ill currently in bed SKIN: Warm and dry. No rash HEAD: Atraumatic. Normocephalic. EYES: Pupils equal and round around 2 mm bilaterally and reactive. No scleral icterus. No injection or drainage. ENT: No nasal bleeding or discharge. Mucous membranes pink and moist. NECK: Trachea midline. JVD difficult to assess due to body habitus. CARDIOVASCULAR: Distant due to body habitus. Regular rate and rhythm. S1, S2. Without murmur RESPIRATORY: Diminished breath sounds bilaterally due to body habitus. Breath sounds equal bilaterally. GASTROINTESTINAL: Abdomen obese, non-tender, protuberant. no guarding. MUSCULOSKELETAL: Extremities without significant peripheral edema. NEUROLOGICAL: Sedated on the ventilator currently. RASS -2. weakly follows commands. moves all extremities spontaneously. A/P Assessment and Plan Assessment: 61yM with h/o htn now with bradycardic arrest and found to have aberrant RCA off left coronary cusp. Likely respiratory failure is secondary to aspiration pneumonitis/pneumonia. fevers persist, although he remains with normal wbc. improving mentation slowly. SARAH likely multifactorial, including from contrast and shock state, slightly improved. not on pathway. For now, he remains critically ill with multiple organ systems which are life-threatening. Neuro/psych: agitated delirium metabolic encephalopathy wean prop and fentanyl, sedation holiday. Goal of RASS -2 Daily sedation vacation Seroquel 100mg po q8h haldol 5mg iv q4h prn agitation. head CT 05/08: negative acute. CV: Coronary artery disease Nonischemic cardiomyopathy secondary to hypertensive heart disease Hypertensive emergency Status post cardiac catheterization by Dr. Moy. No intervention performed. Known coronary artery artery disease to the first and second diagonals the LAD. Aberrant RCA off left coronary cups. Dr. Pendleton consulted: need referral when stable. Resume aspirin 81 mg daily and Plavix 75 mg daily. Continue Lipitor 20 mg a night. Currently holding home medications of hydrochlorothiazide 25 mg daily, spironolactone 50 mg twice a day -- Norvasc 10 mg by mouth -- Patient's baseline blood pressures in the 170s and do not want to induce ischemia. Cardene and labetalol as needed for sbp < 180. Resp: Acute hypoxemic respiratory failure Ventilator bundle As needed bronchodilator therapy Chest x-ray post code reveals possible left lower lobe infiltrate. Cardiomegaly. No other acute cardio pulmonic findings. wean fio2 for goal spo2 > 90%. -- PEEP at 10. may be able to wean this further to 8 today. -- does not meet SBT criteria today given high vent support. GI: Hypoalbuminemia Constipation- resolved. Patient is ordered Jevity 1.5 goal 55 cc an hour OG tube Protonix for GI prophylaxis Colace/Senokot twice a day for bowel regimen, + BM yesterday with added lactulose and miralax. can hold bowel reg for diarrhea. : Chaudhry for accurate I's and O's in a critically ill patient Endo: Diabetes mellitus type 2 Holding metformin 500 mg by mouth 3 times a day light of recent diet 48 hours. Sliding-scale insulin Accu-Cheks to maintain euglycemia. medium regimen every 6 hours Renal: intravascular hypervolemia Acute kidney injury Creatinine elevated slightly, likely multifactorial, including prerenal from shock and contrast nephropathy continue to hold mivf. Monitor BMP in a.m. good diuresis yesterday. will continue with lasix 40mg iv q12h. afternoon bmp. Heme: CBC currently within normal limits. daily cbc. ID: Aspiration pneumonia --continue Zosyn 3.375gm iv q8h --blood and sputum cultures NGTD. -- fevers continue to be a problem. will order 4 extremity dopplers. blood cultures sent again. patient is clinically improving and non-toxic. will continue to monitor conservatively. FEN: Hypokalemia Hypo-magnesium Electrolyte protocol initiated. Replace as clinically indicated MSK: History of spinal stenosis/laminectomy/left total knee replacement and left ring finger amputation PT evaluate and treat Access - Utilize peripheral IV./Central line if indicated Prophylaxis - GI - Protonix - DVT - SCD/hgb stable, will slowly re-introduce pharmacologic dvt prophy with q12h heparin SQ. Critical Care: The total critical care time was 44 minutes. Time to perform other separately billable procedures was not included in the critical care time. Discussed with Dr. Marcano at bedside. Eloy Aguila MD May 10, 2016 08:43
[2016-05-10] MEDS ORDERED: FUROSEMIDE 40 MG/4 ML VIAL IV PUSH ONE (08:45)
[2016-05-10] MEDS: DOCUSATE SODIUM 100 MG CAP PO SCH ×2 (09:00→21:00)
[2016-05-10] MEDS: POLYETHYLENE GLYCOL 17 GM PKG PO SCH ×2 (09:00→21:00)
[2016-05-10] MEDS: LACTULOSE SYRUP 20 GM/30 ML CUP PO SCH (09:00)
[2016-05-10] MEDS: PANTOPRAZOLE SODIUM 40 MG VIAL IV SCH (09:13)
[2016-05-10] MEDS: HEPARIN SODIUM - SQ 10,000 UNITS/ML VIAL SQ SCH (09:14)
[2016-05-10] MEDS: ATORVASTATIN 20 MG TAB PO SCH (09:14)
[2016-05-10] MEDS: ASPIRIN 81 MG CHEW TAB CHEW SCH (09:14)
[2016-05-10] MEDS: CLOPIDOGREL 75 MG TAB PO SCH (09:15)
[2016-05-10] MEDS: SODIUM CHLORIDE 0.9% FLUSH 5 ML FLUSH IV FLUSH SCH ×2 (09:15→21:00)
[2016-05-10] MEDS: ACETYLCYSTEINE 20% 6,000 MG/30 ML ORAL SOLN VIAL PO SCH ×2 (09:35→21:00)
[2016-05-10] MEDS: ARTIFICIAL TEARS OPTH SOLN 15 ML BTL EACH EYE SCH ×3 (10:25→18:14)
--- NOTE | 2016-05-10 11:54 | RADRPT ---
EXAM DATE/TIME: 05/10/2016 09:20 [facility] COMPARISON: No previous studies available for comparison. INDICATIONS : Bilateral leg swelling. MEDICAL HISTORY : Myocardial infarction. Hypertension. Congestive heart failure. Diabetes. Morbid ly obese. SURGICAL HISTORY : Unable to assess. ENCOUNTER: Initial ACUITY: 1 day PAIN SCORE: Non-responsive LOCATION: Bilateral legs. TECHNIQUE: Venous ultrasound of the left and right leg was performed from the inguinal ligament t o the proximal calf. Real-time, color Doppler and spectral tracing, compression and augmentation rachael hniques were used. FINDINGS: RIGHT LEG: There is normal compressibility of the deep venous system from the inguinal region to the proximal calf. No echogenic clot is seen in the lumen of the common femoral, femoral, popliteal, . There is a normal response of the venous system to proximal and distal augmentation and respirati on. There is occlusive thrombus in the right posterior tibial vein LEFT LEG: There is normal compressibility of the deep venous system from the inguinal region to t he proximal calf. No echogenic clot is seen in the lumen of the common femoral, femoral, popliteal, and posterior tibial veins. There is a normal response of the venous system to proximal and distal a ugmentation and respiration. CONCLUSION: Occlusive thrombus right posterior tibial vein. Otherwise negative with negative left lower extremity Shahid Sin MD on May 10, 2016 at 11:51 Board Certified Radiologist. This report was verified electronically.
--- NOTE | 2016-05-10 11:56 | RADRPT ---
EXAM DATE/TIME: 05/10/2016 09:44 [facility] COMPARISON: CT PULMONARY ANGIOGRAM, May 07, 2016, 0:04. INDICATIONS : Bilateral arm swelling. MEDICAL HISTORY : Myocardial infarction. Congestive heart failure. Hypertension. Diabetes. Morbidly obese. SURGICAL HISTORY : Unable to assess. ENCOUNTER: Initial ACUITY: 1 day PAIN SCORE: Non-responsive LOCATION: Bilateral arms. FINDINGS: RIGHT UPPER EXTREMITY: There is spontaneous flow documented in the brachial, basilic, axillary, and subclavian veins. The v essels are compressible and augmentation response is documented. No filling defects are seen. The f low is phasic with respiration. Direction of flow in the jugular vein is caudal. Thrombus noted in the right cephalic vein LEFT UPPER EXTREMITY: There is spontaneous flow documented in the brachial, basilic, cephalic, axillary, and subclavian vei ns. The vessels are compressible and augmentation response is documented. No filling defects are se en. The flow is phasic with respiration. Direction of flow in the jugular vein is caudal. CONCLUSION: Occlusive thrombus in the right cephalic vein. Otherwise negative Shahid Sin MD on May 10, 2016 at 11:53 Board Certified Radiologist. This report was verified electronically.
--- NOTE | 2016-05-10 16:21 | PD.CARD.PN ---
Subjective Subjective Remarks No events over night noted Objective Medications Current Medications Medications (Trade) Dose Ordered Sig/Isabelle Route Start Time Stop Time Status Last Admin (NS Flush) 2 ml UNSCH PRN IV FLUSH 05/05/16 17:15 (NS Flush) 2 ml BID IV FLUSH 05/05/16 21:00 05/10/16 09:15 (Tylenol) 650 mg Q6H PRN PO 05/05/16 17:15 05/09/16 07:52 (Protonix Inj) 40 mg DAILY IV 05/06/16 09:00 05/10/16 09:13 (Tears Naturale Opth Soln) 1 drop TID EACH EYE 05/05/16 18:00 05/10/16 14:28 (Zofran Inj) 4 mg Q6H PRN IV 05/05/16 17:15 (Colace) 100 mg BID PO 05/05/16 21:00 05/09/16 20:12 Miscellaneous Information 1 Q361D XX 05/05/16 17:15 05/05/16 17:15 (Chlorhexidine 2% Cloth) 3 pack Taper DAILY@04 TOP 05/06/16 04:00 05/02/17 03:59 05/10/16 04:00 Chlorhexidine Gluconate 3 pack 3 pack UNSCH PRN TOP 05/05/16 17:15 Propofol 100 ml @ 0 mls/hr TITRATE IV 05/05/16 17:15 05/10/16 14:27 Fentanyl Citrate 250 ml @ 0 mls/hr TITRATE IV 05/05/16 17:15 05/08/16 05:49 Potassium Chloride 100 ml @ 50 mls/hr Q2H PRN IV 05/05/16 17:15 (KCl 20 Meq Premix Inj) 100 ml @ 50 mls/hr Q2H PRN IV 05/05/16 17:15 05/06/16 09:00 Potassium Chloride 40 meq 40 meq UNSCH PRN PO/TUBE 05/05/16 17:15 Potassium Chloride 100 ml @ 25 mls/hr UNSCH PRN IV 05/05/16 17:15 Potassium Chloride 100 ml @ 50 mls/hr Q2H PRN IV 05/05/16 17:15 (Magnesium Sulfate Inj/NS Inj) 100 ml @ 50 mls/hr UNSCH PRN IV 05/05/16 17:15 Magnesium Oxide 800 mg 800 mg UNSCH PRN PO 05/05/16 17:15 05/06/16 05:25 (Magnesium Sulfate Inj/NS Inj) 100 ml @ 50 mls/hr UNSCH PRN IV 05/05/16 17:15 Potassium Phosphate 2000 mg 2,000 mg Q4H PRN PO 05/05/16 17:15 (Sodium Phosphate Inj/NS 250 ml Inj) 250 ml @ 42 mls/hr UNSCH PRN IV 05/05/16 17:15 (KCl 40 Meq/30 ml Liq) 40 meq UNSCH PRN PO/TUBE 05/05/16 17:15 Potassium Phosphate 2000 mg 2,000 mg UNSCH PRN PO/TUBE 05/05/16 17:15 (Potassium Phosphate Inj/NS 250 ml Inj) 260 ml @ 42 mls/hr UNSCH PRN IV 05/05/16 17:15 (Glucagon Inj) 1 mg UNSCH PRN OTHER 05/05/16 17:15 (Aspirin Chew) 81 mg DAILY CHEW 05/06/16 09:00 05/10/16 09:14 (Plavix) 75 mg DAILY PO 05/06/16 09:00 05/10/16 09:15 (Lipitor) 20 mg DAILY PO 05/06/16 09:00 05/10/16 09:14 (Senokot) 17.2 mg Q12H PO 05/06/16 18:00 05/10/16 05:22 Acetylcysteine 3 mg 3 mg BID PO 05/06/16 21:00 05/10/16 09:35 (Cardene Inj/NS 250 ml Inj) 260 ml @ 0 mls/hr TITRATE IV 05/06/16 23:30 05/09/16 05:23 (Trandate Inj) 20 mg Q2HR PRN IV PUSH 05/06/16 23:30 05/10/16 10:49 Morphine Sulfate 4 mg 4 mg Q3H PRN IV PUSH 05/06/16 23:45 05/09/16 13:58 (Zosyn 3.375 Gm Premix) 50 ml @ 100 mls/hr Q6H IV 05/07/16 17:00 05/10/16 11:12 (SEROquel) 100 mg Q8HR PO 05/07/16 17:00 05/10/16 14:27 Haloperidol Lactate 5 mg 5 mg Q4H PRN IV PUSH 05/07/16 16:30 05/09/16 16:11 (Versed Inj) 100 ml @ 0 mls/hr TITRATE IV 05/08/16 01:15 05/08/16 01:19 (D50w (Vial) Inj) 25 ml UNSCH PRN IV PUSH 05/08/16 21:00 (NovoLIN R SUPPLEMENTAL SCALE) 1 Q6HR SQ 05/09/16 00:00 05/10/16 12:46 (Heparin Inj) 5,000 units Q12HR SQ 05/08/16 21:00 05/10/16 09:14 (Norvasc) 10 mg DAILY PO 05/09/16 11:04 05/10/16 09:14 (Miralax) 17 gm BID PO 05/09/16 11:04 05/09/16 20:12 (Lactulose Liq) 30 ml DAILY PO 05/09/16 11:04 05/09/16 11:59 Vital Signs / I&O Vital Signs Date Time Temp Pulse Resp B/P Pulse Ox O2 Delivery O2 Flow Rate FiO2 05/10/16 15:45 96 45 05/10/16 14:00 45 05/10/16 14:00 100 05/10/16 14:00 99.9 97 22 150/90 95 05/10/16 12:00 97 05/10/16 11:17 95 45 05/10/16 10:00 100 05/10/16 08:01 95 45 05/10/16 08:00 99.9 97 25 166/94 94 05/10/16 08:00 45 05/10/16 08:00 96 05/10/16 06:00 96 05/10/16 04:15 133/86 05/10/16 04:10 94 45 05/10/16 04:00 98.8 99 23 176/106 91 05/10/16 04:00 40 05/10/16 04:00 99 05/10/16 02:00 97 05/10/16 01:15 97 40 05/10/16 00:00 96 05/10/16 00:00 40 05/10/16 00:00 99.1 96 22 144/80 94 05/09/16 22:30 93 40 05/09/16 22:00 100 05/09/16 20:25 93 40 05/09/16 20:03 94 40 05/09/16 20:00 100 05/09/16 20:00 40 05/09/16 20:00 99.0 100 25 149/93 99 05/09/16 18:00 100 05/09/16 17:09 95 40 I/O 05/09/16 05/09/16 05/09/16 05/10/16 05/10/16 05/10/16 07:00 15:00 23:00 07:00 15:00 23:00 Intake Total 1530 ml 764 ml 872 ml 912 ml Output Total 450 ml 1200 ml 1750 ml 550 ml Balance 1080 ml -436 ml -878 ml 362 ml Intake Oral 0 ml 0 ml 0 ml IV Total 1120 ml 160 ml 331 ml 430 ml Tube Feeding 350 ml 504 ml 481 ml 422 ml Other 60 ml 100 ml 60 ml 60 ml Output Urine Total 450 ml 1200 ml 1750 ml 550 ml Stool Total 0 ml 0 ml # Bowel Movements 1 1 Physical Exam GENERAL: Sedation restarted, low level SKIN: Warm and dry. HEAD: Atraumatic. Normocephalic. EYES: Pupils equal and round. No scleral icterus. No injection or drainage. ENT: No nasal bleeding or discharge. Mucous membranes pink and moist. NECK: Trachea midline. No JVD. CARDIOVASCULAR: Regular rate and rhythm. RESPIRATORY: No accessory muscle use. Decreased breath sounds bilaterally GASTROINTESTINAL: Abdomen soft, non-tender, nondistended. Hepatic and splenic margins not palpable. MUSCULOSKELETAL: Extremities without clubbing, cyanosis, or edema. No obvious deformities. Right radial no hematoma. Right femoral no hematoma/bruit noted NEUROLOGICAL: Sedation restarted, low level Laboratory Laboratory Tests Test 05/09/16 05/10/16 22:28 03:40 Sodium Level 146 MEQ/L 145 MEQ/L Potassium Level 4.8 MEQ/L 4.1 MEQ/L Chloride Level 113 MEQ/L 110 MEQ/L Carbon Dioxide Level 22.7 MEQ/L 21.5 MEQ/L Anion Gap 10 MEQ/L 14 MEQ/L Blood Urea Nitrogen 22 MG/DL 24 MG/DL Creatinine 1.70 MG/DL 1.59 MG/DL Estimat Glomerular Filtration 50 ML/MIN 54 ML/MIN Rate Random Glucose 225 MG/DL 190 MG/DL Calcium Level 8.1 MG/DL 8.5 MG/DL White Blood Count 11.0 TH/MM3 Red Blood Count 4.44 MIL/MM3 Hemoglobin 12.9 GM/DL Hematocrit 39.9 % Mean Corpuscular Volume 90.0 FL Mean Corpuscular Hemoglobin 29.0 PG Mean Corpuscular Hemoglobin 32.2 % Concent Red Cell Distribution Width 14.9 % Platelet Count 131 TH/MM3 Mean Platelet Volume 9.0 FL Assessment and Plan Problem List: (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 (2) Hypertensive emergency (3) Acute hypoxemic respiratory failure (4) Diabetes mellitus (5) CAD (coronary artery disease) Assessment and Plan 1) HTN emergency, concern for possible STEMI on admission, most like EKG changes from Emergent HTN 2) Cardiac cath showing mild to moderate CAD 3) Anomalous RCA off Left Coronary Cusp, will need CTA of coronaries to define pathway of RCA to make sure not intra-arterial (between PA and Aorta) especially with chest pain/pre-syncopal episodes... but CT done shows that RCA most likely takes an intra-arterial route 4) Blood pressure elevated, currently on Cardene drip 5) Vent per critical care 6) Bradycardia/possible PEA, possible mucus plug leading to hypoxia? possible hypokalemia? possible squeeze of the RCA if intra-arterial? 7) Air bronchograms on CT, possible PNA/possible aspiration 8) Appears on telemetry to be NSR, occasional blocked PACs 9) Sedation off, neurologically started to follow commands, back on sedation currently 10) DVT, on heparin gtt Maurizio Marcano DO May 10, 2016 16:21
[2016-05-10 17:35] LABS: BICARBONATE 24.6 MEQ/L (21.0-32.0); POTASSIUM 4.7 MEQ/L (3.5-5.1)
[2016-05-10] MEDS: ENOXAPARIN SODIUM 150 MG/ML SYRINGE SQ SCH (21:00)
[2016-05-11] VITALS (19 sets, daily range): BP systolic 122–175; BP diastolic 58–98; PULSE 73–108; RESP 22–23; TEMP 97.2–99.1; O2SAT 88–100
[2016-05-11] MEDS: NIFEdipine 10 MG CAP PO SCH ×4 (01:48→18:35)
[2016-05-11] MEDS: CHLORHEXIDINE GLUCONATE 2 % 1 PACK (2 CLOTHS) TOP SCH (04:00)
[2016-05-11] MEDS: PIPERACIL-TAZO 3.375 GM PREMIX 50 ML IV SCH ×4 (04:01→22:43)
[2016-05-11] MEDS: PROPOFOL 1000 MG/100 ML INJ 100 ML IV SCH ×8 (04:01→22:42)
[2016-05-11] MEDS: QUEtiapine FUMARATE 100 MG TAB PO SCH ×2 (05:15→22:41)
--- NOTE | 2016-05-11 05:18 | RADRPT ---
EXAM DATE/TIME: 05/11/2016 03:53 [facility] COMPARISON: CHEST SINGLE AP, May 08, 2016, 4:44. INDICATIONS : Shortness of breath, possible pulmonary disease. MEDICAL HISTORY : Hypertension. Congestive heart failure. Diabetes mellitus type II. SURGICAL HISTORY : None. ENCOUNTER: Subsequent ACUITY: 1 week PAIN SCORE: Non-responsive. LOCATION: Bilateral chest FINDINGS: The support devices remain in place. There are some scattered bibasilar infiltrates. The left lung ba se is stable. There is a mild increase in the right lower lung infiltrate. The heart size is enlarged but stable. There is no pneumothorax. CONCLUSION: Mild scattered bibasilar infiltrates. Tyrell Kennedy MD on May 11, 2016 at 5:16 Board Certified Radiologist. This report was verified electronically.
[2016-05-11] MEDS: INSULIN NovoLIN REGULAR SUPPLEMENTAL SCALE SQ SCH ×3 (05:21→18:20)
[2016-05-11 06:10] LABS: HEMATOCRIT 35.9 % (39.0-51.0); MEAN CELL VOLUME 88.6 FL (80.0-100.0); MEAN CORPUSCULAR HEMOGLOBIN 29.1 PG (27.0-34.0); MEAN CORPUSCULAR HGB CONC 32.9 % (32.0-36.0); PLATELET COUNT 163 TH/MM3 (150-450); RED BLOOD COUNT 4.05 MIL/MM3 (4.50-5.90); RED CELL DISTRIBUTION WIDTH 14.9 % (11.6-17.2); REVIEW FLAG FINAL; WHITE BLOOD COUNT 7.7 TH/MM3 (4.0-11.0)
[2016-05-11 06:38] LABS: POTASSIUM 3.7 MEQ/L (3.5-5.1)
[2016-05-11] MEDS: ENOXAPARIN SODIUM 150 MG/ML SYRINGE SQ SCH ×2 (08:00→20:39)
[2016-05-11] MEDS: LACTULOSE SYRUP 20 GM/30 ML CUP PO SCH ×2 (09:00→09:27)
[2016-05-11] MEDS: POLYETHYLENE GLYCOL 17 GM PKG PO SCH ×2 (09:00→09:28)
[2016-05-11] MEDS: DOCUSATE SODIUM 100 MG CAP PO SCH ×2 (09:00→09:27)
[2016-05-11] MEDS: PANTOPRAZOLE SODIUM 40 MG VIAL IV SCH (09:27)
[2016-05-11] MEDS: ATORVASTATIN 20 MG TAB PO SCH (09:27)
[2016-05-11] MEDS: ASPIRIN 81 MG CHEW TAB CHEW SCH (09:27)
--- NOTE | 2016-05-11 09:28 | PD.CARD.PN ---
Subjective Subjective Remarks Stable on the vent, no events over night Objective Medications Current Medications Medications (Trade) Dose Ordered Sig/Isabelle Route Start Time Stop Time Status Last Admin (NS Flush) 2 ml UNSCH PRN IV FLUSH 05/05/16 17:15 (NS Flush) 2 ml BID IV FLUSH 05/05/16 21:00 05/10/16 09:15 (Tylenol) 650 mg Q6H PRN PO 05/05/16 17:15 05/09/16 07:52 (Protonix Inj) 40 mg DAILY IV 05/06/16 09:00 05/10/16 09:13 (Tears Naturale Opth Soln) 1 drop TID EACH EYE 05/05/16 18:00 05/10/16 18:14 (Zofran Inj) 4 mg Q6H PRN IV 05/05/16 17:15 (Colace) 100 mg BID PO 05/05/16 21:00 05/09/16 20:12 Miscellaneous Information 1 Q361D XX 05/05/16 17:15 05/05/16 17:15 (Chlorhexidine 2% Cloth) Taper DAILY@04 TOP 05/06/16 04:00 05/02/17 03:59 05/11/16 04:00 Chlorhexidine Gluconate 3 pack 3 pack UNSCH PRN TOP 05/05/16 17:15 Propofol 100 ml @ 0 mls/hr TITRATE IV 05/05/16 17:15 05/11/16 08:15 Fentanyl Citrate 250 ml @ 0 mls/hr TITRATE IV 05/05/16 17:15 05/08/16 05:49 Potassium Chloride 100 ml @ 50 mls/hr Q2H PRN IV 05/05/16 17:15 (KCl 20 Meq Premix Inj) 100 ml @ 50 mls/hr Q2H PRN IV 05/05/16 17:15 05/06/16 09:00 Potassium Chloride 40 meq 40 meq UNSCH PRN PO/TUBE 05/05/16 17:15 Potassium Chloride 100 ml @ 25 mls/hr UNSCH PRN IV 05/05/16 17:15 Potassium Chloride 100 ml @ 50 mls/hr Q2H PRN IV 05/05/16 17:15 (Magnesium Sulfate Inj/NS Inj) 100 ml @ 50 mls/hr UNSCH PRN IV 05/05/16 17:15 Magnesium Oxide 800 mg 800 mg UNSCH PRN PO 05/05/16 17:15 05/06/16 05:25 (Magnesium Sulfate Inj/NS Inj) 100 ml @ 50 mls/hr UNSCH PRN IV 05/05/16 17:15 Potassium Phosphate 2000 mg 2,000 mg Q4H PRN PO 05/05/16 17:15 (Sodium Phosphate Inj/NS 250 ml Inj) 250 ml @ 42 mls/hr UNSCH PRN IV 05/05/16 17:15 (KCl 40 Meq/30 ml Liq) 40 meq UNSCH PRN PO/TUBE 05/05/16 17:15 Potassium Phosphate 2000 mg 2,000 mg UNSCH PRN PO/TUBE 05/05/16 17:15 (Potassium Phosphate Inj/NS 250 ml Inj) 260 ml @ 42 mls/hr UNSCH PRN IV 05/05/16 17:15 (Glucagon Inj) 1 mg UNSCH PRN OTHER 05/05/16 17:15 (Aspirin Chew) 81 mg DAILY CHEW 05/06/16 09:00 05/10/16 09:14 (Plavix) 75 mg DAILY PO 05/06/16 09:00 05/10/16 09:15 (Lipitor) 20 mg DAILY PO 05/06/16 09:00 05/10/16 09:14 (Senokot) 17.2 mg Q12H PO 05/06/16 18:00 05/10/16 05:22 Acetylcysteine 3 mg 3 mg BID PO 05/06/16 21:00 05/10/16 09:35 (Cardene Inj/NS 250 ml Inj) 260 ml @ 0 mls/hr TITRATE IV 05/06/16 23:30 05/09/16 05:23 (Trandate Inj) 20 mg Q2HR PRN IV PUSH 05/06/16 23:30 05/10/16 23:14 Morphine Sulfate 4 mg 4 mg Q3H PRN IV PUSH 05/06/16 23:45 05/09/16 13:58 (Zosyn 3.375 Gm Premix) 50 ml @ 100 mls/hr Q6H IV 05/07/16 17:00 05/11/16 04:01 (SEROquel) 100 mg Q8HR PO 05/07/16 17:00 05/11/16 05:15 Haloperidol Lactate 5 mg 5 mg Q4H PRN IV PUSH 05/07/16 16:30 05/09/16 16:11 (Versed Inj) 100 ml @ 0 mls/hr TITRATE IV 05/08/16 01:15 05/08/16 01:19 (D50w (Vial) Inj) 25 ml UNSCH PRN IV PUSH 05/08/16 21:00 (NovoLIN R SUPPLEMENTAL SCALE) 1 Q6HR SQ 05/09/16 00:00 05/11/16 05:21 (Miralax) 17 gm BID PO 05/09/16 11:04 05/09/16 20:12 (Lactulose Liq) 30 ml DAILY PO 05/09/16 11:04 05/09/16 11:59 (Lovenox Inj) 150 mg Q12H SQ 05/10/16 20:00 05/10/16 21:00 (Procardia) 10 mg Q6HR PO 05/11/16 01:00 05/11/16 05:15 Vital Signs / I&O Vital Signs Date Time Temp Pulse Resp B/P Pulse Ox O2 Delivery O2 Flow Rate FiO2 05/11/16 08:00 99 05/11/16 08:00 45 05/11/16 08:00 99.1 99 22 148/86 91 05/11/16 07:34 100 40 05/11/16 06:00 45 05/11/16 06:00 100 05/11/16 04:06 92 45 05/11/16 04:00 98.9 103 22 128/58 88 05/11/16 04:00 103 05/11/16 02:00 101 05/11/16 01:08 93 45 05/11/16 00:00 99.0 101 22 175/96 95 05/11/16 00:00 45 05/11/16 00:00 101 05/10/16 23:10 95 45 05/10/16 22:09 93 45 05/10/16 22:00 100 05/10/16 20:09 98 45 05/10/16 20:00 100 05/10/16 20:00 99.2 100 22 165/92 95 05/10/16 20:00 45 05/10/16 18:37 100 05/10/16 16:00 45 1/25/17 16:00 100 05/10/16 16:00 99.4 100 24 154/86 93 05/10/16 15:45 96 45 05/10/16 14:00 45 05/10/16 14:00 100 05/10/16 14:00 99.9 97 22 150/90 95 05/10/16 12:00 97 05/10/16 11:17 95 45 05/10/16 10:00 100 I/O 05/10/16 05/10/16 05/10/16 05/11/16 05/11/16 05/11/16 07:00 15:00 23:00 07:00 15:00 23:00 Intake Total 912 ml 1017 ml 855 ml 788 ml Output Total 550 ml 2100 ml 1100 ml 400 ml Balance 362 ml -1083 ml -245 ml 388 ml Intake Oral 0 ml 0 ml 0 ml 0 ml IV Total 430 ml 465 ml 360 ml 350 ml Tube Feeding 422 ml 492 ml 435 ml 378 ml Other 60 ml 60 ml 60 ml 60 ml Output Urine Total 550 ml 2100 ml 1100 ml 400 ml # Bowel Movements 1 1 0 0 Physical Exam GENERAL: Sedation restarted, low level SKIN: Warm and dry. HEAD: Atraumatic. Normocephalic. EYES: Pupils equal and round. No scleral icterus. No injection or drainage. ENT: No nasal bleeding or discharge. Mucous membranes pink and moist. NECK: Trachea midline. No JVD. CARDIOVASCULAR: Regular rate and rhythm. RESPIRATORY: No accessory muscle use. Decreased breath sounds bilaterally GASTROINTESTINAL: Abdomen soft, non-tender, nondistended. Hepatic and splenic margins not palpable. MUSCULOSKELETAL: Extremities without clubbing, cyanosis, or edema. No obvious deformities. Right radial no hematoma. Right femoral no hematoma/bruit noted NEUROLOGICAL: Sedation restarted, low level Laboratory Laboratory Tests Test 05/10/16 05/11/16 15:30 05:34 Sodium Level 145 MEQ/L 147 MEQ/L Potassium Level 4.7 MEQ/L 3.7 MEQ/L Chloride Level 110 MEQ/L 111 MEQ/L Carbon Dioxide Level 24.6 MEQ/L 28.0 MEQ/L Anion Gap 10 MEQ/L 8 MEQ/L Blood Urea Nitrogen 25 MG/DL 25 MG/DL Creatinine 1.37 MG/DL 1.29 MG/DL Estimat Glomerular Filtration 64 ML/MIN 69 ML/MIN Rate Random Glucose 219 MG/DL 195 MG/DL Calcium Level 8.2 MG/DL 8.4 MG/DL White Blood Count 7.7 TH/MM3 Red Blood Count 4.05 MIL/MM3 Hemoglobin 11.8 GM/DL Hematocrit 35.9 % Mean Corpuscular Volume 88.6 FL Mean Corpuscular Hemoglobin 29.1 PG Mean Corpuscular Hemoglobin 32.9 % Concent Red Cell Distribution Width 14.9 % Platelet Count 163 TH/MM3 Mean Platelet Volume 8.7 FL Assessment and Plan Problem List: (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 (2) Hypertensive emergency (3) Acute hypoxemic respiratory failure (4) Diabetes mellitus (5) CAD (coronary artery disease) Assessment and Plan 1) HTN emergency, concern for possible STEMI on admission, most like EKG changes from Emergent HTN 2) Cardiac cath showing mild to moderate CAD 3) Anomalous RCA off Left Coronary Cusp, will need CTA of coronaries to define pathway of RCA to make sure not intra-arterial (between PA and Aorta) especially with chest pain/pre-syncopal episodes... but CT done shows that RCA most likely takes an intra-arterial route 4) Blood pressure elevated, Norvasc changed to Procardia... if still elevated can increase to 20mgQ8 5) Vent per critical care 6) Bradycardia/possible PEA, possible mucus plug leading to hypoxia? possible hypokalemia? possible squeeze of the RCA if intra-arterial? 7) Air bronchograms on CT, possible PNA/possible aspiration 8) Appears on telemetry to be NSR, occasional blocked PACs 9) Sedation off, neurologically started to follow commands, back on sedation currently 10) DVT, on heparin gtt Maurizio Marcano DO May 11, 2016 09:28
[2016-05-11] MEDS: ARTIFICIAL TEARS OPTH SOLN 15 ML BTL EACH EYE SCH ×3 (09:29→18:35)
[2016-05-11] MEDS: SODIUM CHLORIDE 0.9% FLUSH 5 ML FLUSH IV FLUSH SCH ×2 (09:29→20:40)
[2016-05-11] MEDS: RESP: ALBUTEROL 2.5 MG/IPRATROPIUM 0.5 MG NEB (PRN) INH ×2 (10:53→19:34)
[2016-05-11] MEDS: CLOPIDOGREL 75 MG TAB PO SCH (12:30)
--- NOTE | 2016-05-11 14:31 | HHI.CCPN ---
Subjective Remarks/Hospital Course 61-year-old AA male. Date of admission 05/05/2016. Date of consultation 2016. Past medical history includes hypertensive heart disease, hypertension, diabetes mellitus type 2 and spinal stenosis. He presented to [facility] today with history of acute onset of diaphoresis, chest pain and syncope. Her documentation, Chest pain was 7 out of 10 without radiation. Later in the hospital physician, patient did have ST elevation anterior septal leads. I he had a cardiac catheterization in 2009 which revealed moderate coronary disease which documented 50-60% stenosis in the LAD diagonals 1 and 2. Recommended medical management at that time. Dr. Marcano was notified and proceed to the cardiac catheter lab. Patient sees heparin and one aspirin prior to cardiac catheterization. During heart catheterization,, patient became hypertensive, tachypneic, hypoxic and agitated including abdominal pain with nausea and vomiting. Patient was intubated by Dr. Simon and dispensed transferred to room 505a. Currently hemodynamic stable on a propofol drip. 05/06: Patient required additional sedation overnight. Was moving all 4 extremity spontaneously and strongly. Potassium is replaced overnight along with magnesium. This afternoon approximate 4 PM, patient went into a sinus bradycardia in the 40s. RN cannot locate pulse and possibly went into a PEA arrest. Patient received CPR for approximately 2 minutes. ROSC return immediately. Received 1 mg of epinephrine IV. Blood pressure was 240 systolic. Saturations were above 90% the entire time. Dr. Marcano was made aware. No new recommendations at this time. Electrolytes currently pending. Patient is currently hemodynamic stable and an arterial line/left radial has been placed 05/07: no improvement in delirium or mental status. spiking low grade fevers. 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 CT surgery consulted and declined to operate here: he will need referral once stabilized. fio2 requirements still high. CT chest also with evidence of bibasilar consolidation which may be aspiration pneumonitis vs. pneumonia now that we are 48h out from initial presentation and now spiking fevers. 05/08: delirium persists. continues to spike fevers. jolly cultured yesterday without results yet. holding sedation today. 05/09: delirium slightly improved. waking up on SAT, weakly following commands. cultures still NGTD. hypoxia slightly improved. 05/10: delirium improving. weakly following commands still. cultures still NGTD. fevers persist, although fever curve appears to be improving. hypoxia continues to improve. still remains very critically ill. Subjective 05/11: Tmax 99.9. Currently 99.1. Tolerating tube feeding. One bowel movement. Continues to have difficulty weaning ventilator. Objective Vital Signs Date Time Temp Pulse Resp B/P Pulse Ox O2 Delivery O2 Flow Rate FiO2 05/11/16 12:00 45 05/11/16 12:00 99 05/11/16 12:00 99.1 22 160/97 94 Intake and Output 05/10/16 05/10/16 05/11/16 08:00 16:00 00:00 Intake Total 912 ml 1017 ml 855 ml Output Total 550 ml 2100 ml 1100 ml Balance 362 ml -1083 ml -245 ml Result Diagram: 05/11/16 0534 05/11/16 0534 Other Results Microbiology Date/Time Procedure Status Source Growth 05/08/16 04:32 Aerobic Blood Culture - Preliminary Resulted Blood Peripheral NO GROWTH IN 3 DAYS 05/08/16 04:32 Anaerobic Blood Culture - Preliminary Resulted Blood Peripheral NO GROWTH IN 3 DAYS 05/08/16 03:50 Urine Culture - Final Complete Urine Catheterized Urine NO GROWTH IN 48 HOURS. 05/08/16 03:50 Gram Stain - Final Complete Sputum Endotracheal 05/08/16 03:50 Sputum Culture - Final Complete Sputum Endotracheal RARE GROWTH NORMAL RESPIRATORY JOSESITO Imaging Last Impressions Chest X-Ray 05/11/16 0600 Signed Impressions: Service Date/Time: April 03:53 - CONCLUSION: Mild scattered bibasilar infiltrates. Tyrell Kennedy MD Upper Extremity Ultrasound 05/10/16 0000 Signed Impressions: Service Date/Time: Tuesday, May 10, 2016 09:44 - CONCLUSION: Occlusive thrombus in the right cephalic vein. Otherwise negative Shahid Sin MD Lower Extremity Ultrasound 05/10/16 0000 Signed Impressions: Service Date/Time: Tuesday, May 10, 2016 09:20 - CONCLUSION: Occlusive thrombus right posterior tibial vein. Otherwise negative with negative left lower extremity Shahid Sin MD Head CT 05/08/16 0000 Signed Impressions: Service Date/Time: Sunday, May 08, 2016 17:42 - CONCLUSION: Intracranially negative. Ethmoid and left maxillary sinus disease includes air-fluid level left maxillary sinus. Shahid Sin MD CT Angiography 05/06/16 0000 Signed Impressions: Service Date/Time: Saturday, May 07, 2016 00:04 - CONCLUSION: 1. Lobar consolidation bilaterally in the lower lobes. 2. Negative for pulmonary embolism. Michael Colbert MD Objective Remarks GENERAL: 61-year-old AA male, morbidly obese, critically ill currently in bed SKIN: Warm and dry. No rash HEAD: Atraumatic. Normocephalic. EYES: Pupils equal and round around 2 mm bilaterally and reactive. No scleral icterus. No injection or drainage. ENT: No nasal bleeding or discharge. Mucous membranes pink and moist. NECK: Trachea midline. JVD difficult to assess due to body habitus. CARDIOVASCULAR: Distant due to body habitus. Regular rate and rhythm. S1, S2. Without murmur RESPIRATORY: Diminished breath sounds bilaterally due to body habitus. Breath sounds equal bilaterally. GASTROINTESTINAL: Abdomen obese, non-tender, protuberant. no guarding. MUSCULOSKELETAL: Extremities without significant peripheral edema. NEUROLOGICAL: Sedated on the ventilator currently. RASS -2. weakly follows commands. moves all extremities spontaneously. Urinary Catheter: Yes Assessment to: Continue Chaudhry insert reason: Prolonged Immobilization Vascular Central Line Catheter: No Assessment to: Continue A/P Assessment and Plan Neuro/Psych: Acute toxic metabolic encephalopathy Currently on propofol/fentanyl drips for sedation/analgesia while intubated Goal of RASS -2 Daily sedation vacation Seroquel 50mg po q8h Added oxycodone liquid 5 every 6 and attempt to wean haldol 5mg iv q4h prn agitation. head CT 05/08: negative acute. Check EEG CV: Coronary artery disease Nonischemic cardiomyopathy secondary to hypertensive heart disease Hypertensive emergency Aberrant RCA off LCC Status post cardiac catheterization by Dr. Moy. No intervention performed. Known coronary artery artery disease to the first and second diagonals the LAD. Aberrant RCA off left coronary cups. Dr. Pendleton consulted: need referral when stable. Resume aspirin 81 mg daily and Plavix 75 mg daily. Continue Lipitor 20 mg a night. Currently holding home medications of hydrochlorothiazide 25 mg daily, spironolactone 50 mg twice a day --Nifedipine 10 mg 3 times a day. Off Cardene drip Pulm: Acute hypoxemic respiratory failure Likely underlying STU PRVC 22/550/0.8/845 Ventilator bundle Bronchodilator therapy as needed -- does not meet SBT criteria today given high vent support. Follow-up chest x-ray in a.m. GI: Hypoalbuminemia Constipation- resolved. Patient is ordered Jevity 1.5 goal 55 cc an hour OG tube Protonix for GI prophylaxis Colace/Senokot twice a day for bowel regimen, : Chaudhry for accurate I's and O's in a critically ill patient Endo: Diabetes mellitus type 2 Holding metformin 500 mg by mouth 3 times a day light of recent diet 48 hours. Sliding-scale insulin Accu-Cheks to maintain euglycemia. medium regimen every 6 hours Renal: Acute kidney injury - resolving Creatinine elevated slightly, likely multifactorial, including prerenal from shock and contrast nephropathy continue to hold mivf. Monitor BMP in a.m. good diuresis yesterday. Carefully diuresis Lasix 20 IV every 12 Heme: Right cephalic superficial thrombus/right PT DVT Normocytic anemia CBC daily. Monitor trends. No active bleeding. Lovenox 150 mg subcutaneous twice a day ID: Aspiration pneumonia --continue Zosyn 3.375gm iv q8h Pertinent cultures 05/07 - blood cultures 2 - negative 05/08 - sputum - negative 05/08 - urine - negative 05/08 - blood cultures - negative FEN: Hypernatremia Hypokalemia Electrolyte protocol initiated. Replace as clinically indicated MSK: History of spinal stenosis/laminectomy/left total knee replacement and left ring finger amputation PT evaluate and treat Access - Utilize peripheral IV./Central line if indicated Prophylaxis - GI - Protonix - DVT - SCD/hgb stable, will slowly re-introduce pharmacologic dvt prophy with q12h heparin SQ. Critical Care: The total critical care time was 36 minutes. Time to perform other separately billable procedures was not included in the critical care time. Brett Abrams MD May 11, 2016 14:31
[2016-05-11] MEDS ORDERED: PILL SPLITTER OTHER PRN (15:15)
[2016-05-11] MEDS ORDERED: POTASSIUM CHLORIDE 20 MEQ PWD PACKET PO ONE (15:30)
[2016-05-11] MEDS: oxyCODONE HCL ORAL CONC 20 MG/ML SYRINGE PO SCH ×2 (15:56→22:41)
[2016-05-11] MEDS: SENNOSIDES 8.6 MG TAB PO SCH (18:00)
[2016-05-12] VITALS (17 sets, daily range): BP systolic 125–184; BP diastolic 66–110; PULSE 76–108; RESP 16–25; TEMP 98.4–99; O2SAT 93–98
[2016-05-12] MEDS: PROPOFOL 1000 MG/100 ML INJ 100 ML IV SCH ×12 (00:22→22:26)
[2016-05-12] MEDS: LABETALOL HCL 100 MG/20 ML VIAL IV PUSH PRN ×2 (00:22→05:37)
[2016-05-12] MEDS: NIFEdipine 10 MG CAP PO SCH ×5 (00:22→23:51)
[2016-05-12] MEDS: INSULIN NovoLIN REGULAR SUPPLEMENTAL SCALE SQ SCH ×5 (00:33→23:51)
[2016-05-12] MEDS: CHLORHEXIDINE GLUCONATE 2 % 1 PACK (2 CLOTHS) TOP SCH (04:00)
[2016-05-12] MEDS: oxyCODONE HCL ORAL CONC 20 MG/ML SYRINGE PO SCH ×4 (04:16→22:11)
[2016-05-12] MEDS: PIPERACIL-TAZO 3.375 GM PREMIX 50 ML IV SCH ×4 (04:17→22:12)
--- NOTE | 2016-05-12 05:04 | RADRPT ---
EXAM DATE/TIME: 05/12/2016 03:30 [facility] COMPARISON: CHEST SINGLE AP, May 11, 2016, 3:53. INDICATIONS : Shortness of breath. MEDICAL HISTORY : Hypertension. Congestive heart failure. Diabetes mellitus type II. SURGICAL HISTORY : None. ENCOUNTER: Subsequent ACUITY: 1 week PAIN SCORE: Non-responsive. LOCATION: Bilateral chest FINDINGS: Endotracheal tube and NG tube again seen. Bilateral effusions are suspected and cardiomegaly with [place] ateral consolidation increased bilaterally. CONCLUSION: Worsening appearance of the chest. Ronald Tinsley MD on May 12, 2016 at 5:02 Board Certified Radiologist. This report was verified electronically.
[2016-05-12] MEDS: QUEtiapine FUMARATE 100 MG TAB PO SCH ×3 (05:37→22:11)
[2016-05-12] MEDS: SENNOSIDES 8.6 MG TAB PO SCH ×2 (05:37→18:19)
--- NOTE | 2016-05-12 06:03 | MG ---
cc: NENA GAMING M.D. Lab No: Date: 05/11/2016 Age: Sex: M Race: REQUESTING PHYSICIAN Dr. Abrams, Dr. Garrett INDICATIONS EEG was obtained on this 61-year-old patient being evaluated for encephalopathy. The patient is status post PE arrest, agitated. MEDICATIONS 1. Nifedipine. 2. Trandate. 3. Plavix sleepy. 4. Lipitor. 5. Diprivan. The patient is intubated and off Diprivan was turned off at the start of the EEG. The patient is not following commands. The EEG shows sleep features. There is possible slower rhythms on the right in comparison to the left. There are some sleep spindles and beta activity. There are theta and delta rhythms. The background appears poorly reactive. As the EEG study goes on, some artifact starts appearing, probably due to the fact that the Diprivan is wearing off. Then the background is more obviously showing theta and delta rhythms and the lack of alpha activity. Photic stimulation showed some possible minimal driving response. INTERPRETATION This EEG is abnormal with diffuse slowing, possibly right more than left. Clinical and imaging correlation. No epileptiform features present. MD DELGADO Hagan/JAMIL /7:36 PM /5:57 AM
[2016-05-12 07:28] LABS: BICARBONATE 29.1 MEQ/L (21.0-32.0); MAGNESIUM 2.4 MG/DL (1.5-2.5); POTASSIUM 4.5 MEQ/L (3.5-5.1)
[2016-05-12 07:33] LABS: HEMATOCRIT 39.8 % (39.0-51.0); MEAN CORPUSCULAR HGB CONC 34.1 % (32.0-36.0); PLATELET COUNT 169 TH/MM3 (150-450); RED BLOOD COUNT 4.52 MIL/MM3 (4.50-5.90); REVIEW FLAG FINAL; WHITE BLOOD COUNT 8.3 TH/MM3 (4.0-11.0)
[2016-05-12] MEDS: DOCUSATE SODIUM 100 MG CAP PO SCH ×2 (08:07→19:49)
[2016-05-12] MEDS: ATORVASTATIN 20 MG TAB PO SCH (08:07)
[2016-05-12] MEDS: ASPIRIN 81 MG CHEW TAB CHEW SCH (08:07)
[2016-05-12] MEDS: CLOPIDOGREL 75 MG TAB PO SCH (08:07)
[2016-05-12] MEDS: ENOXAPARIN SODIUM 150 MG/ML SYRINGE SQ SCH ×2 (08:07→19:49)
[2016-05-12] MEDS: SODIUM CHLORIDE 0.9% FLUSH 5 ML FLUSH IV FLUSH SCH ×2 (08:08→19:49)
[2016-05-12] MEDS: ARTIFICIAL TEARS OPTH SOLN 15 ML BTL EACH EYE SCH ×3 (08:08→18:00)
[2016-05-12] MEDS: PANTOPRAZOLE SODIUM 40 MG VIAL IV SCH (08:08)
[2016-05-12] MEDS ORDERED: FUROSEMIDE 20 MG/2 ML VIAL IV PUSH SCH (09:00)
--- NOTE | 2016-05-12 12:36 | HHI.CCPN ---
Subjective Remarks/Hospital Course 61-year-old AA male. Date of admission 05/05/2016. Date of consultation 2016. Past medical history includes hypertensive heart disease, hypertension, diabetes mellitus type 2 and spinal stenosis. He presented to [facility] today with history of acute onset of diaphoresis, chest pain and syncope. Her documentation, Chest pain was 7 out of 10 without radiation. Later in the hospital physician, patient did have ST elevation anterior septal leads. I he had a cardiac catheterization in 2009 which revealed moderate coronary disease which documented 50-60% stenosis in the LAD diagonals 1 and 2. Recommended medical management at that time. Dr. Marcano was notified and proceed to the cardiac catheter lab. Patient sees heparin and one aspirin prior to cardiac catheterization. During heart catheterization,, patient became hypertensive, tachypneic, hypoxic and agitated including abdominal pain with nausea and vomiting. Patient was intubated by Dr. Simon and dispensed transferred to room 505a. Currently hemodynamic stable on a propofol drip. 05/06: Patient required additional sedation overnight. Was moving all 4 extremity spontaneously and strongly. Potassium is replaced overnight along with magnesium. This afternoon approximate 4 PM, patient went into a sinus bradycardia in the 40s. RN cannot locate pulse and possibly went into a PEA arrest. Patient received CPR for approximately 2 minutes. ROSC return immediately. Received 1 mg of epinephrine IV. Blood pressure was 240 systolic. Saturations were above 90% the entire time. Dr. Marcano was made aware. No new recommendations at this time. Electrolytes currently pending. Patient is currently hemodynamic stable and an arterial line/left radial has been placed 05/07: no improvement in delirium or mental status. spiking low grade fevers. 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 CT surgery consulted and declined to operate here: he will need referral once stabilized. fio2 requirements still high. CT chest also with evidence of bibasilar consolidation which may be aspiration pneumonitis vs. pneumonia now that we are 48h out from initial presentation and now spiking fevers. 05/08: delirium persists. continues to spike fevers. jolly cultured yesterday without results yet. holding sedation today. 05/09: delirium slightly improved. waking up on SAT, weakly following commands. cultures still NGTD. hypoxia slightly improved. 05/10: delirium improving. weakly following commands still. cultures still NGTD. fevers persist, although fever curve appears to be improving. hypoxia continues to improve. still remains very critically ill. 05/11: Tmax 99.9. Currently 99.1. Tolerating tube feeding. One bowel movement. Continues to have difficulty weaning ventilator. Subjective 05/12: Currently afebrile. Tolerating tube feeding. Positive BM. Increased FiO2 from 45-60%. +1 L. Arousable on sedation vacation and weakly follows commands. Objective Vital Signs Date Time Temp Pulse Resp B/P Pulse Ox O2 Delivery O2 Flow Rate FiO2 05/12/16 10:05 95 60 05/12/16 10:00 101 05/12/16 04:00 98.7 22 167/107 Intake and Output 05/11/16 05/11/16 05/12/16 08:00 16:00 00:00 Intake Total 788 ml 819 ml 1324 ml Output Total 400 ml 600 ml 600 ml Balance 388 ml 219 ml 724 ml Result Diagram: 05/12/16 0549 05/12/16 0549 Other Results Microbiology Date/Time Procedure Status Source Growth 05/08/16 04:32 Aerobic Blood Culture - Preliminary Resulted Blood Peripheral NO GROWTH IN 4 DAYS 05/08/16 04:32 Anaerobic Blood Culture - Preliminary Resulted Blood Peripheral NO GROWTH IN 4 DAYS 05/08/16 03:50 Urine Culture - Final Complete Urine Catheterized Urine NO GROWTH IN 48 HOURS. 05/08/16 03:50 Gram Stain - Final Complete Sputum Endotracheal 05/08/16 03:50 Sputum Culture - Final Complete Sputum Endotracheal RARE GROWTH NORMAL RESPIRATORY JOSESITO 05/07/16 19:05 Aerobic Blood Culture - Final Complete Blood Peripheral NO GROWTH IN 5 DAYS 05/07/16 19:05 Anaerobic Blood Culture - Final Complete Blood Peripheral NO GROWTH IN 5 DAYS Imaging Last Impressions Chest X-Ray 05/12/16 0600 Signed Impressions: Service Date/Time: Thursday, May 12, 2016 03:30 - CONCLUSION: Worsening appearance of the chest. Ronald Tinsley MD Upper Extremity Ultrasound 05/10/16 0000 Signed Impressions: Service Date/Time: Tuesday, May 10, 2016 09:44 - CONCLUSION: Occlusive thrombus in the right cephalic vein. Otherwise negative Shahid Sin MD Lower Extremity Ultrasound 05/10/16 0000 Signed Impressions: Service Date/Time: Tuesday, May 10, 2016 09:20 - CONCLUSION: Occlusive thrombus right posterior tibial vein. Otherwise negative with negative left lower extremity Shahid Sin MD Head CT 05/08/16 0000 Signed Impressions: Service Date/Time: Sunday, May 08, 2016 17:42 - CONCLUSION: Intracranially negative. Ethmoid and left maxillary sinus disease includes air-fluid level left maxillary sinus. Shahid Sin MD CT Angiography 05/06/16 0000 Signed Impressions: Service Date/Time: Saturday, May 07, 2016 00:04 - CONCLUSION: 1. Lobar consolidation bilaterally in the lower lobes. 2. Negative for pulmonary embolism. Michael Colbert MD Objective Remarks GENERAL: 61-year-old AA male, morbidly obese, critically ill currently in bed SKIN: Warm and dry. No rash HEAD: Atraumatic. Normocephalic. EYES: Pupils equal and round around 2 mm bilaterally and reactive. No scleral icterus. No injection or drainage. ENT: No nasal bleeding or discharge. Mucous membranes pink and moist. NECK: Trachea midline. JVD difficult to assess due to body habitus. CARDIOVASCULAR: Distant due to body habitus. Regular rate and rhythm. S1, S2. Without murmur RESPIRATORY: Diminished breath sounds bilaterally due to body habitus. Breath sounds equal bilaterally. GASTROINTESTINAL: Abdomen obese, non-tender, protuberant. no guarding. MUSCULOSKELETAL: Extremities without significant peripheral edema. NEUROLOGICAL: Sedated on the ventilator currently. RASS -2. weakly follows commands. moves all extremities spontaneously. A/P Assessment and Plan Neuro/Psych: Acute toxic metabolic encephalopathy Currently on propofol/fentanyl drips for sedation/analgesia while intubated Goal of RASS -2 Daily sedation vacation Seroquel 50mg po q8h 05/11 added oxycodone liquid 5 milligrams every 6 in attempt to wean Haldol 5mg iv q4h prn agitation. Head CT 05/08: negative acute. EEG 05/12 revealed generalized slowing right greater than left. Clinical correlation recommended. No epileptiform activity. CV: Coronary artery disease Nonischemic cardiomyopathy secondary to hypertensive heart disease Hypertensive emergency Aberrant RCA off LCC Status post cardiac catheterization by Dr. Moy. No intervention performed. Known coronary artery artery disease to the first and second diagonals the LAD. Aberrant RCA off left coronary cups. Dr. Pendleton consulted: need referral when stable. Resume aspirin 81 mg daily and Plavix 75 mg daily. Continue Lipitor 20 mg a night. Currently holding home medications of hydrochlorothiazide 25 mg daily, spironolactone 50 mg twice a day --Nifedipine 10 mg 3 times a day. Off Cardene drip Pulm: Acute hypoxemic respiratory failure Likely underlying STU PRVC 22/550/0.8/8/60 Ventilator bundle Bronchodilator therapy as needed -- does not meet SBT criteria today given high vent support. Follow-up chest x-ray in a.m. 05/05. Appeared worsening on 05/12 GI: Hypoalbuminemia Constipation- resolved. Patient is ordered Jevity 1.5 goal 55 cc an hour OG tube Protonix for GI prophylaxis Colace/Senokot twice a day for bowel regimen, : Chaudhry for accurate I's and O's in a critically ill patient Endo: Diabetes mellitus type 2 Holding metformin 500 mg by mouth 3 times a day light of recent diet 48 hours. Sliding-scale insulin Accu-Cheks to maintain euglycemia. Medium regimen every 6 hours Renal: Acute kidney injury - resolving Creatinine elevated slightly, likely multifactorial, including prerenal from shock and contrast nephropathy continue to hold mivf. Monitor BMP in a.m. Carefully diurese with Lasix 40 IV every 12 Heme: Right cephalic superficial thrombus/right PT DVT Normocytic anemia CBC daily. Monitor trends. No active bleeding. Lovenox 150 mg subcutaneous twice a day ID: Aspiration pneumonia --continue Zosyn 3.375gm iv q8h Pertinent cultures 05/07 - blood cultures 2 - negative 05/08 - sputum - negative 05/08 - urine - negative 05/08 - blood cultures - negative FEN: Hypernatremia Electrolyte protocol initiated. Replace as clinically indicated MSK: History of spinal stenosis/laminectomy/left total knee replacement and left ring finger amputation PT evaluate and treat Access - Utilize peripheral IV./Central line if indicated Prophylaxis - GI - Protonix - DVT - SCD/Lovenox Critical Care: The total critical care time was 36 minutes. Time to perform other separately billable procedures was not included in the critical care time. Brett Abrams MD May 12, 2016 12:36 Brett Abrams MD May 12, 2016 12:36
--- NOTE | 2016-05-12 16:20 | PD.CARD.PN ---
Subjective Subjective Remarks No events over night, difficult weaning vent Objective Medications Current Medications Medications (Trade) Dose Ordered Sig/Isabelle Route Start Time Stop Time Status Last Admin (NS Flush) 2 ml UNSCH PRN IV FLUSH 05/05/16 17:15 (NS Flush) 2 ml BID IV FLUSH 05/05/16 21:00 05/12/16 08:08 (Tylenol) 650 mg Q6H PRN PO 05/05/16 17:15 05/09/16 07:52 (Protonix Inj) 40 mg DAILY IV 05/06/16 09:00 05/12/16 08:08 (Tears Naturale Opth Soln) 1 drop TID EACH EYE 05/05/16 18:00 05/12/16 08:08 (Zofran Inj) 4 mg Q6H PRN IV 05/05/16 17:15 (Colace) 100 mg BID PO 05/05/16 21:00 05/12/16 08:07 Miscellaneous Information 1 Q361D XX 05/05/16 17:15 05/05/16 17:15 (Chlorhexidine 2% Cloth) Taper DAILY@04 TOP 05/06/16 04:00 05/02/17 03:59 05/12/16 04:00 Chlorhexidine Gluconate 3 pack 3 pack UNSCH PRN TOP 05/05/16 17:15 Propofol 100 ml @ 0 mls/hr TITRATE IV 05/05/16 17:15 05/12/16 13:08 Fentanyl Citrate 250 ml @ 0 mls/hr TITRATE IV 05/05/16 17:15 05/08/16 05:49 Potassium Chloride 100 ml @ 50 mls/hr Q2H PRN IV 05/05/16 17:15 (KCl 20 Meq Premix Inj) 100 ml @ 50 mls/hr Q2H PRN IV 05/05/16 17:15 05/06/16 09:00 Potassium Chloride 40 meq 40 meq UNSCH PRN PO/TUBE 05/05/16 17:15 Potassium Chloride 100 ml @ 25 mls/hr UNSCH PRN IV 05/05/16 17:15 Potassium Chloride 100 ml @ 50 mls/hr Q2H PRN IV 05/05/16 17:15 (Magnesium Sulfate Inj/NS Inj) 100 ml @ 50 mls/hr UNSCH PRN IV 05/05/16 17:15 Magnesium Oxide 800 mg 800 mg UNSCH PRN PO 05/05/16 17:15 05/06/16 05:25 (Magnesium Sulfate Inj/NS Inj) 100 ml @ 50 mls/hr UNSCH PRN IV 05/05/16 17:15 Potassium Phosphate 2000 mg 2,000 mg Q4H PRN PO 05/05/16 17:15 (Sodium Phosphate Inj/NS 250 ml Inj) 250 ml @ 42 mls/hr UNSCH PRN IV 05/05/16 17:15 (KCl 40 Meq/30 ml Liq) 40 meq UNSCH PRN PO/TUBE 05/05/16 17:15 Potassium Phosphate 2000 mg 2,000 mg UNSCH PRN PO/TUBE 05/05/16 17:15 (Potassium Phosphate Inj/NS 250 ml Inj) 260 ml @ 42 mls/hr UNSCH PRN IV 05/05/16 17:15 (Glucagon Inj) 1 mg UNSCH PRN OTHER 05/05/16 17:15 (Aspirin Chew) 81 mg DAILY CHEW 05/06/16 09:00 05/12/16 08:07 (Plavix) 75 mg DAILY PO 05/06/16 09:00 05/12/16 08:07 (Lipitor) 20 mg DAILY PO 05/06/16 09:00 05/12/16 08:07 Sennosides 17.2 mg 17.2 mg Q12H PO 05/06/16 18:00 05/12/16 05:37 (Cardene Inj/NS 250 ml Inj) 260 ml @ 0 mls/hr TITRATE IV 05/06/16 23:30 05/09/16 05:23 (Trandate Inj) 20 mg Q2HR PRN IV PUSH 05/06/16 23:30 05/12/16 05:37 Morphine Sulfate 4 mg 4 mg Q3H PRN IV PUSH 05/06/16 23:45 05/09/16 13:58 (Zosyn 3.375 Gm Premix) 50 ml @ 100 mls/hr Q6H IV 05/07/16 17:00 05/12/16 11:18 Haloperidol Lactate 5 mg 5 mg Q4H PRN IV PUSH 05/07/16 16:30 05/09/16 16:11 (Versed Inj) 100 ml @ 0 mls/hr TITRATE IV 05/08/16 01:15 05/08/16 01:19 (D50w (Vial) Inj) 25 ml UNSCH PRN IV PUSH 05/08/16 21:00 (NovoLIN R SUPPLEMENTAL SCALE) 1 Q6HR SQ 05/09/16 00:00 05/12/16 13:08 (Lovenox Inj) 150 mg Q12H SQ 05/10/16 20:00 05/12/16 08:07 (Procardia) 10 mg Q6HR PO 05/11/16 01:00 05/12/16 11:17 (SEROquel) 50 mg Q8HR PO 05/11/16 22:00 05/12/16 05:37 (Roxicodone Intensol Liq) 5 mg Q6H PO 05/11/16 16:00 05/12/16 11:18 (Pill Splitter) 1 ea UNSCH PRN OTHER 05/11/16 15:15 (Lasix Inj) 40 mg BID@09,18 IV PUSH 05/12/16 18:00 Vital Signs / I&O Vital Signs Date Time Temp Pulse Resp B/P Pulse Ox O2 Delivery O2 Flow Rate FiO2 05/12/16 14:00 90 05/12/16 12:41 95 60 05/12/16 12:00 102 05/12/16 12:00 98.6 104 17 125/75 94 05/12/16 12:00 60 05/12/16 10:05 95 60 05/12/16 10:00 101 05/12/16 08:00 98.5 108 18 129/73 93 05/12/16 08:00 60 05/12/16 08:00 106 05/12/16 06:00 103 05/12/16 04:34 94 45 05/12/16 04:00 60 05/12/16 04:00 103 05/12/16 04:00 98.7 103 22 167/107 94 05/12/16 02:00 103 05/12/16 01:41 94 70 05/12/16 00:00 55 05/12/16 00:00 98.4 104 25 184/110 94 05/12/16 00:00 104 05/11/16 22:00 104 05/11/16 20:00 55 05/11/16 20:00 97.2 108 23 167/98 95 05/11/16 20:00 108 05/11/16 19:16 93 100 05/11/16 18:28 104 05/11/16 18:12 98.8 73 22 122/75 94 05/11/16 17:06 22 05/11/16 16:37 93 45 I/O 05/11/16 05/11/16 05/11/16 05/12/16 05/12/16 05/12/16 07:00 15:00 23:00 07:00 15:00 23:00 Intake Total 788 ml 819 ml 1324 ml 630 ml Output Total 400 ml 600 ml 600 ml 450 ml Balance 388 ml 219 ml 724 ml 180 ml Intake Oral 0 ml 0 ml 0 ml 0 ml IV Total 350 ml 350 ml 593 ml 334 ml Tube Feeding 378 ml 379 ml 671 ml 236 ml Tube Irrigant 60 ml 60 ml Other 60 ml 90 ml Output Urine Total 400 ml 600 ml 600 ml 450 ml # Bowel Movements 0 1 0 0 Physical Exam GENERAL: Sedation restarted, low level SKIN: Warm and dry. HEAD: Atraumatic. Normocephalic. EYES: Pupils equal and round. No scleral icterus. No injection or drainage. ENT: No nasal bleeding or discharge. Mucous membranes pink and moist. NECK: Trachea midline. No JVD. CARDIOVASCULAR: Regular rate and rhythm. RESPIRATORY: No accessory muscle use. Decreased breath sounds bilaterally GASTROINTESTINAL: Abdomen soft, non-tender, nondistended. Hepatic and splenic margins not palpable. MUSCULOSKELETAL: Extremities without clubbing, cyanosis, or edema. No obvious deformities. Right radial no hematoma. Right femoral no hematoma/bruit noted NEUROLOGICAL: Sedation restarted, low level Laboratory Laboratory Tests Test 05/12/16 05:49 White Blood Count 8.3 TH/MM3 Red Blood Count 4.52 MIL/MM3 Hemoglobin 13.6 GM/DL Hematocrit 39.8 % Mean Corpuscular Volume 88.0 FL Mean Corpuscular Hemoglobin 30.0 PG Mean Corpuscular Hemoglobin 34.1 % Concent Red Cell Distribution Width 15.0 % Platelet Count 169 TH/MM3 Mean Platelet Volume 9.2 FL Hematology Comments Sodium Level 146 MEQ/L Potassium Level 4.5 MEQ/L Chloride Level 108 MEQ/L Carbon Dioxide Level 29.1 MEQ/L Anion Gap 9 MEQ/L Blood Urea Nitrogen 27 MG/DL Creatinine 1.30 MG/DL Estimat Glomerular Filtration 68 ML/MIN Rate Random Glucose 173 MG/DL Calcium Level 8.5 MG/DL Phosphorus Level 3.7 MG/DL Magnesium Level 2.4 MG/DL Assessment and Plan Problem List: (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 (2) Hypertensive emergency (3) Acute hypoxemic respiratory failure (4) Diabetes mellitus (5) CAD (coronary artery disease) Assessment and Plan 1) HTN emergency, concern for possible STEMI on admission, most like EKG changes from Emergent HTN 2) Cardiac cath showing mild to moderate CAD 3) Anomalous RCA off Left Coronary Cusp, will need CTA of coronaries to define pathway of RCA to make sure not intra-arterial (between PA and Aorta) especially with chest pain/pre-syncopal episodes... but CT done shows that RCA most likely takes an intra-arterial route 4) Blood pressure elevated, Norvasc changed to Procardia... if still elevated can increase to 20mgQ8, currently controlled 5) Vent per critical care 6) Bradycardia/possible PEA, possible mucus plug leading to hypoxia? possible hypokalemia? possible squeeze of the RCA if intra-arterial? 7) Air bronchograms on CT, possible PNA/possible aspiration 8) Appears on telemetry to be NSR, occasional blocked PACs 9) Sedation off, neurologically started to follow commands, back on sedation currently 10) DVT, on heparin gtt Maurizio Marcano DO May 12, 2016 16:20
[2016-05-12] MEDS: FUROSEMIDE 40 MG/4 ML VIAL IV PUSH SCH (18:20)
[2016-05-13] VITALS (21 sets, daily range): BP systolic 115–194; BP diastolic 69–107; PULSE 72–120; RESP 20–28; TEMP 98.7–102.1; O2SAT 92–100
[2016-05-13] MEDS: PROPOFOL 1000 MG/100 ML INJ 100 ML IV SCH ×5 (00:04→07:59)
[2016-05-13] MEDS: CHLORHEXIDINE GLUCONATE 2 % 1 PACK (2 CLOTHS) TOP SCH (01:47)
[2016-05-13] MEDS: PIPERACIL-TAZO 3.375 GM PREMIX 50 ML IV SCH ×4 (03:41→23:22)
[2016-05-13] MEDS: oxyCODONE HCL ORAL CONC 20 MG/ML SYRINGE PO SCH ×4 (03:41→20:21)
[2016-05-13 04:09] LABS: HEMATOCRIT 33.6 % (39.0-51.0); MEAN CELL VOLUME 87.7 FL (80.0-100.0); MEAN CORPUSCULAR HEMOGLOBIN 29.8 PG (27.0-34.0); PLATELET COUNT 208 TH/MM3 (150-450); RED BLOOD COUNT 3.83 MIL/MM3 (4.50-5.90); RED CELL DISTRIBUTION WIDTH 14.7 % (11.6-17.2); REVIEW FLAG FINAL; WHITE BLOOD COUNT 7.1 TH/MM3 (4.0-11.0)
[2016-05-13 04:30] LABS: BICARBONATE 28.2 MEQ/L (21.0-32.0); POTASSIUM 3.3 MEQ/L (3.5-5.1)
--- NOTE | 2016-05-13 04:30 | RADRPT ---
EXAM DATE/TIME: 05/13/2016 02:46 [facility] COMPARISON: CHEST SINGLE AP, May 12, 2016, 3:30. INDICATIONS : Shortness of breath, possible pulmonary disease. MEDICAL HISTORY : Hypertension. Congestive heart failure. Diabetes mellitus type II. SURGICAL HISTORY : None. ENCOUNTER: Subsequent ACUITY: 1 week PAIN SCORE: Non-responsive. LOCATION: Bilateral chest FINDINGS: There are bilateral effusions, cardiomegaly and lower lobe consolidation. Endotracheal tube tip at th e superior margin of the clavicles. NG tube courses beneath the diaphragm. EKG leads are present. CONCLUSION: No significant change has occurred. Ronald Tinsley MD on May 13, 2016 at 4:28 Board Certified Radiologist. This report was verified electronically.
[2016-05-13] MEDS: INSULIN NovoLIN REGULAR SUPPLEMENTAL SCALE SQ SCH ×4 (05:17→23:25)
[2016-05-13] MEDS: NIFEdipine 10 MG CAP PO SCH ×4 (05:17→23:22)
[2016-05-13] MEDS: QUEtiapine FUMARATE 100 MG TAB PO SCH ×3 (05:17→20:22)
[2016-05-13] MEDS: SENNOSIDES 8.6 MG TAB PO SCH ×2 (05:17→18:00)
[2016-05-13] MEDS ORDERED: DEXMEDETOMIDINE 200 MCG/50 ML NS IV SCH (09:00)
[2016-05-13] MEDS: ASPIRIN 81 MG CHEW TAB CHEW SCH (09:00)
[2016-05-13] MEDS: PANTOPRAZOLE SODIUM 40 MG VIAL IV SCH (09:00)
[2016-05-13] MEDS: DOCUSATE SODIUM 100 MG CAP PO SCH ×2 (09:00→20:20)
[2016-05-13] MEDS: ATORVASTATIN 20 MG TAB PO SCH (09:01)
[2016-05-13] MEDS: ENOXAPARIN SODIUM 150 MG/ML SYRINGE SQ SCH ×2 (09:01→20:20)
[2016-05-13] MEDS: CLOPIDOGREL 75 MG TAB PO SCH (09:01)
[2016-05-13] MEDS: FUROSEMIDE 40 MG/4 ML VIAL IV PUSH SCH ×2 (09:02→18:18)
[2016-05-13] MEDS: SODIUM CHLORIDE 0.9% FLUSH 5 ML FLUSH IV FLUSH SCH ×2 (09:02→20:20)
[2016-05-13] MEDS: ARTIFICIAL TEARS OPTH SOLN 15 ML BTL EACH EYE SCH ×3 (09:03→18:17)
[2016-05-13] MEDS ORDERED: FUROSEMIDE 20 MG/2 ML VIAL IV PUSH ONE (09:30)
[2016-05-13] MEDS ORDERED: POTASSIUM CL 40 MEQ/30 ML LIQ UDC PO ONE (09:30)
--- NOTE | 2016-05-13 09:52 | HHI.CCPN ---
Subjective Remarks/Hospital Course 61-year-old AA male. Date of admission 05/05/2016. Date of consultation 2016. Past medical history includes hypertensive heart disease, hypertension, diabetes mellitus type 2 and spinal stenosis. He presented to [facility] today with history of acute onset of diaphoresis, chest pain and syncope. Her documentation, Chest pain was 7 out of 10 without radiation. Later in the hospital physician, patient did have ST elevation anterior septal leads. I he had a cardiac catheterization in 2009 which revealed moderate coronary disease which documented 50-60% stenosis in the LAD diagonals 1 and 2. Recommended medical management at that time. Dr. Marcano was notified and proceed to the cardiac catheter lab. Patient sees heparin and one aspirin prior to cardiac catheterization. During heart catheterization,, patient became hypertensive, tachypneic, hypoxic and agitated including abdominal pain with nausea and vomiting. Patient was intubated by Dr. Simon and dispensed transferred to room 505a. Currently hemodynamic stable on a propofol drip. 05/06: Patient required additional sedation overnight. Was moving all 4 extremity spontaneously and strongly. Potassium is replaced overnight along with magnesium. This afternoon approximate 4 PM, patient went into a sinus bradycardia in the 40s. RN cannot locate pulse and possibly went into a PEA arrest. Patient received CPR for approximately 2 minutes. ROSC return immediately. Received 1 mg of epinephrine IV. Blood pressure was 240 systolic. Saturations were above 90% the entire time. Dr. Marcano was made aware. No new recommendations at this time. Electrolytes currently pending. Patient is currently hemodynamic stable and an arterial line/left radial has been placed 05/07: no improvement in delirium or mental status. spiking low grade fevers. 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 CT surgery consulted and declined to operate here: he will need referral once stabilized. fio2 requirements still high. CT chest also with evidence of bibasilar consolidation which may be aspiration pneumonitis vs. pneumonia now that we are 48h out from initial presentation and now spiking fevers. 05/08: delirium persists. continues to spike fevers. jolly cultured yesterday without results yet. holding sedation today. 05/09: delirium slightly improved. waking up on SAT, weakly following commands. cultures still NGTD. hypoxia slightly improved. 05/10: delirium improving. weakly following commands still. cultures still NGTD. fevers persist, although fever curve appears to be improving. hypoxia continues to improve. still remains very critically ill. 05/11: Tmax 99.9. Currently 99.1. Tolerating tube feeding. One bowel movement. Continues to have difficulty weaning ventilator. Subjective 05/12: Currently afebrile. Tolerating tube feeding. Positive BM. Increased FiO2 from 45-60%. +1 L. Arousable on sedation vacation and weakly follows commands. 05/13: Remains intubated, sedated. FiO2 now reduced to 45% (was 55% today am). Start weaning trials after starting Precedex. To control BP May use Cardene, given anomalous RCA Objective Vital Signs Date Time Temp Pulse Resp B/P Pulse Ox O2 Delivery O2 Flow Rate FiO2 05/13/16 08:30 45 05/13/16 08:00 99.9 72 22 118/71 96 Intake and Output 05/12/16 05/12/16 05/13/16 08:00 16:00 00:00 Intake Total 630 ml 1378 ml 775 ml Output Total 450 ml 1000 ml 1500 ml Balance 180 ml 378 ml -725 ml Result Diagram: 05/13/16 0343 05/13/16 0343 Imaging Last Impressions Chest X-Ray 05/12/16 0600 Signed Impressions: Service Date/Time: Thursday, May 12, 2016 03:30 - CONCLUSION: Worsening appearance of the chest. Ronald Tinsley MD Upper Extremity Ultrasound 05/10/16 0000 Signed Impressions: Service Date/Time: Tuesday, May 10, 2016 09:44 - CONCLUSION: Occlusive thrombus in the right cephalic vein. Otherwise negative Shahid Sin MD Lower Extremity Ultrasound 05/10/16 0000 Signed Impressions: Service Date/Time: Tuesday, May 10, 2016 09:20 - CONCLUSION: Occlusive thrombus right posterior tibial vein. Otherwise negative with negative left lower extremity Shahid Sin MD Head CT 05/08/16 0000 Signed Impressions: Service Date/Time: Sunday, May 08, 2016 17:42 - CONCLUSION: Intracranially negative. Ethmoid and left maxillary sinus disease includes air-fluid level left maxillary sinus. Shahid Sin MD CT Angiography 05/06/16 0000 Signed Impressions: Service Date/Time: Saturday, May 07, 2016 00:04 - CONCLUSION: 1. Lobar consolidation bilaterally in the lower lobes. 2. Negative for pulmonary embolism. Michael Colbert MD Objective Remarks GENERAL: 61-year-old AA male, morbidly obese, critically ill currently in bed SKIN: Warm and dry. No rash HEAD: Atraumatic. Normocephalic. EYES: Pupils equal and round around 2 mm bilaterally and reactive. No scleral icterus. No injection or drainage. ENT: No nasal bleeding or discharge. Mucous membranes pink and moist. NECK: Trachea midline. JVD difficult to assess due to body habitus. CARDIOVASCULAR: Distant due to body habitus. Regular rate and rhythm. S1, S2. Without murmur RESPIRATORY: Diminished breath sounds bilaterally due to body habitus. Breath sounds equal bilaterally. GASTROINTESTINAL: Abdomen obese, non-tender, protuberant. no guarding. MUSCULOSKELETAL: Extremities without significant peripheral edema. NEUROLOGICAL: Sedated on the ventilator currently. RASS -2. weakly follows commands. moves all extremities spontaneously. Urinary Catheter: Yes Assessment to: Continue A/P Assessment and Plan Neuro/Psych: Acute toxic metabolic encephalopathy Currently on propofol/fentanyl drips for sedation/analgesia while intubated. Goal of RASS -2 Start Precedex to facilitate ventilator weaning Daily sedation vacation Seroquel 50mg po q8h. Haldol 5mg iv q4h prn agitation. 05/11 added oxycodone liquid 5 milligrams every 6 in attempt to wean Head CT 05/08: negative acute. EEG 05/12 revealed generalized slowing right greater than left. No epileptiform activity. CV: Aberrant RCA off LCC Diastolic heart failure Coronary artery disease Nonischemic cardiomyopathy secondary to hypertensive heart disease Hypertensive emergency Status post cardiac catheterization by Dr. Moy. No intervention performed. Known coronary artery artery disease to the first and second diagonals the LAD. Aberrant RCA off left coronary cups. Dr. Pendleton consulted: need referral when stable for RCA unroofing Aspirin 81 mg daily and Plavix 75 mg daily. Continue Lipitor 20 mg a night. Currently holding home medications of hydrochlorothiazide 25 mg daily, spironolactone 50 mg twice a day --Nifedipine 10 mg 3 times a day. May need Cardene drip to control hypertension with weaning Pulm: Acute hypoxemic respiratory failure Likely underlying STU Bilateral pleural effusion PRVC 22/550/0.8/8/60 Ventilator bundle Bronchodilator therapy as needed Resume SBT after reducing FiO2 to 45% and PEEP to 8 Follow-up chest x-ray in a.m. 05/05. Appeared worsening on 05/12, stable today GI: Hypoalbuminemia Constipation- resolved. Patient is ordered Jevity 1.5 goal 55 cc an hour. OG tube Protonix for GI prophylaxis Colace/Senokot twice a day for bowel regimen, : Chaudhry for accurate I's and O's in a critically ill patient Endo: Diabetes mellitus type 2 Holding metformin Sliding-scale insulin Accu-Cheks to maintain euglycemia. Medium regimen every 6 hours Renal: Acute kidney injury - resolving Creatinine elevated slightly, likely multifactorial, including prerenal from shock and contrast nephropathy continue to hold mivf. Monitor BMP in a.m. Carefully diurese with Lasix 40 IV every 12, additional 40 mg 1 today Heme: Right cephalic superficial thrombus/right PT DVT Normocytic anemia CBC daily. Monitor trends. No active bleeding. Lovenox 150 mg subcutaneous twice a day ID: Aspiration pneumonia --continue Zosyn 3.375gm iv q8h Pertinent cultures 05/07 - blood cultures 2 - negative 05/08 - sputum - negative 05/08 - urine - negative 05/08 - blood cultures - negative FEN: Hypernatremia Electrolyte protocol initiated. Replace as clinically indicated MSK: History of spinal stenosis/laminectomy/left total knee replacement and left ring finger amputation PT evaluate and treat Access - Utilize peripheral IV./Central line if indicated Prophylaxis - GI - Protonix - DVT - SCD/Lovenox Critical Care: The total critical care time was 35 minutes. Time to perform other separately billable procedures was not included in the critical care time. Tahmina Kelsey MD May 13, 2016 09:51
[2016-05-13] MEDS: DEXMEDETOMIDINE INJ 1,000 MCG in SODIUM CHLOR 0.9% 250 ML INJ 240 ML IV SCH ×2 (11:34→23:27)
--- NOTE | 2016-05-13 11:52 | PD.CARD.PN ---
Subjective Subjective Remarks episode on NSVT Critically ill Sedated Intubated Objective Medications Current Medications Medications (Trade) Dose Ordered Sig/Isabelle Route Start Time Stop Time Status Last Admin (NS Flush) 2 ml UNSCH PRN IV FLUSH 05/05/16 17:15 (NS Flush) 2 ml BID IV FLUSH 05/05/16 21:00 05/13/16 09:02 (Tylenol) 650 mg Q6H PRN PO 05/05/16 17:15 05/09/16 07:52 (Protonix Inj) 40 mg DAILY IV 05/06/16 09:00 05/13/16 09:00 (Tears Naturale Opth Soln) 1 drop TID EACH EYE 05/05/16 18:00 05/13/16 09:03 (Zofran Inj) 4 mg Q6H PRN IV 05/05/16 17:15 (Colace) 100 mg BID PO 05/05/16 21:00 05/12/16 19:49 Miscellaneous Information 1 Q361D XX 05/05/16 17:15 05/05/16 17:15 (Chlorhexidine 2% Cloth) Taper DAILY@04 TOP 05/06/16 04:00 05/02/17 03:59 05/12/16 04:00 Chlorhexidine Gluconate 3 pack 3 pack UNSCH PRN TOP 05/05/16 17:15 Propofol 100 ml @ 0 mls/hr TITRATE IV 05/05/16 17:15 05/13/16 07:59 Fentanyl Citrate 250 ml @ 0 mls/hr TITRATE IV 05/05/16 17:15 05/08/16 05:49 Potassium Chloride 100 ml @ 50 mls/hr Q2H PRN IV 05/05/16 17:15 (KCl 20 Meq Premix Inj) 100 ml @ 50 mls/hr Q2H PRN IV 05/05/16 17:15 05/06/16 09:00 Potassium Chloride 40 meq 40 meq UNSCH PRN PO/TUBE 05/05/16 17:15 05/13/16 04:42 Potassium Chloride 100 ml @ 25 mls/hr UNSCH PRN IV 05/05/16 17:15 Potassium Chloride 100 ml @ 50 mls/hr Q2H PRN IV 05/05/16 17:15 (Magnesium Sulfate Inj/NS Inj) 100 ml @ 50 mls/hr UNSCH PRN IV 05/05/16 17:15 Magnesium Oxide 800 mg 800 mg UNSCH PRN PO 05/05/16 17:15 05/06/16 05:25 (Magnesium Sulfate Inj/NS Inj) 100 ml @ 50 mls/hr UNSCH PRN IV 05/05/16 17:15 Potassium Phosphate 2000 mg 2,000 mg Q4H PRN PO 05/05/16 17:15 (Sodium Phosphate Inj/NS 250 ml Inj) 250 ml @ 42 mls/hr UNSCH PRN IV 05/05/16 17:15 (KCl 40 Meq/30 ml Liq) 40 meq UNSCH PRN PO/TUBE 05/05/16 17:15 Potassium Phosphate 2000 mg 2,000 mg UNSCH PRN PO/TUBE 05/05/16 17:15 (Potassium Phosphate Inj/NS 250 ml Inj) 260 ml @ 42 mls/hr UNSCH PRN IV 05/05/16 17:15 (Glucagon Inj) 1 mg UNSCH PRN OTHER 05/05/16 17:15 (Aspirin Chew) 81 mg DAILY CHEW 05/06/16 09:00 05/13/16 09:00 (Plavix) 75 mg DAILY PO 05/06/16 09:00 05/13/16 09:01 (Lipitor) 20 mg DAILY PO 05/06/16 09:00 05/13/16 09:01 Sennosides 17.2 mg 17.2 mg Q12H PO 05/06/16 18:00 05/12/16 18:19 (Cardene Inj/NS 250 ml Inj) 260 ml @ 0 mls/hr TITRATE IV 05/06/16 23:30 05/09/16 05:23 (Trandate Inj) 20 mg Q2HR PRN IV PUSH 05/06/16 23:30 05/12/16 05:37 Morphine Sulfate 4 mg 4 mg Q3H PRN IV PUSH 05/06/16 23:45 05/09/16 13:58 (Zosyn 3.375 Gm Premix) 50 ml @ 100 mls/hr Q6H IV 05/07/16 17:00 05/13/16 10:12 (Haldol Inj) 5 mg Q4H PRN IV PUSH 05/07/16 16:30 05/09/16 16:11 (D50w (Vial) Inj) 25 ml UNSCH PRN IV PUSH 05/08/16 21:00 (NovoLIN R SUPPLEMENTAL SCALE) 1 Q6HR SQ 05/09/16 00:00 05/13/16 11:35 (Lovenox Inj) 150 mg Q12H SQ 05/10/16 20:00 05/13/16 09:01 (Procardia) 10 mg Q6HR PO 05/11/16 01:00 05/13/16 11:34 (SEROquel) 50 mg Q8HR PO 05/11/16 22:00 05/13/16 05:17 (Roxicodone Intensol Liq) 5 mg Q6H PO 05/11/16 16:00 05/13/16 09:01 (Pill Splitter) 1 ea UNSCH PRN OTHER 05/11/16 15:15 Furosemide 40 mg 40 mg BID@09,18 IV PUSH 05/12/16 18:00 05/13/16 09:02 (Precedex Inj/NS 250 ml Inj) 250 ml @ 0 mls/hr TITRATE IV 05/13/16 09:08 05/13/16 11:34 Vital Signs / I&O Vital Signs Date Time Temp Pulse Resp B/P Pulse Ox O2 Delivery O2 Flow Rate FiO2 05/13/16 10:15 45 05/13/16 10:00 109 05/13/16 08:30 45 05/13/16 08:00 99.9 72 22 118/71 96 05/13/16 08:00 72 05/13/16 07:36 97 45 05/13/16 06:00 76 05/13/16 04:39 96 55 05/13/16 04:00 98.7 75 22 115/69 96 05/13/16 04:00 55 05/13/16 04:00 75 05/13/16 02:00 108 05/13/16 01:29 98 55 05/13/16 00:00 55 05/13/16 00:00 80 05/13/16 00:00 98.9 80 22 161/92 99 05/12/16 22:00 76 05/12/16 20:23 98 55 05/12/16 20:00 76 05/12/16 20:00 55 05/12/16 20:00 99.0 76 22 125/66 98 05/12/16 18:00 92 05/12/16 16:00 60 05/12/16 16:00 95 05/12/16 16:00 98.4 108 16 139/81 95 05/12/16 14:00 90 05/12/16 12:41 95 60 05/12/16 12:18 16 05/12/16 12:00 102 05/12/16 12:00 98.6 104 17 125/75 94 05/12/16 12:00 60 I/O 05/12/16 05/12/16 05/12/16 05/13/16 05/13/16 05/13/16 07:00 15:00 23:00 07:00 15:00 23:00 Intake Total 630 ml 1378 ml 775 ml 992 ml Output Total 450 ml 1000 ml 1500 ml 400 ml Balance 180 ml 378 ml -725 ml 592 ml Intake Oral 0 ml IV Total 334 ml 646 ml 348 ml 468 ml Tube Feeding 236 ml 732 ml 367 ml 404 ml Tube Irrigant 60 ml 60 ml 120 ml Output Urine Total 450 ml 1000 ml 1500 ml 400 ml # Bowel Movements 0 0 0 1 Physical Exam GENERAL: Sedated , intubated SKIN: Warm and dry. HEAD: Normocephalic. NECK: ET tube in place. Supple, trachea midline. No JVD or lymphadenopathy. CARDIOVASCULAR: Regular rate and rhythm without murmurs, gallops, or rubs. RESPIRATORY: Breath sounds equal bilaterally. No accessory muscle use. GASTROINTESTINAL: Abdomen soft, non-tender, nondistended. EXTREMITIES: No cyanosis Laboratory Laboratory Tests Test 05/13/16 03:43 White Blood Count 7.1 TH/MM3 Red Blood Count 3.83 MIL/MM3 Hemoglobin 11.4 GM/DL Hematocrit 33.6 % Mean Corpuscular Volume 87.7 FL Mean Corpuscular Hemoglobin 29.8 PG Mean Corpuscular Hemoglobin 34.0 % Concent Red Cell Distribution Width 14.7 % Platelet Count 208 TH/MM3 Mean Platelet Volume 8.9 FL Sodium Level 145 MEQ/L Potassium Level 3.3 MEQ/L Chloride Level 108 MEQ/L Carbon Dioxide Level 28.2 MEQ/L Anion Gap 9 MEQ/L Blood Urea Nitrogen 29 MG/DL Creatinine 1.42 MG/DL Estimat Glomerular Filtration 62 ML/MIN Rate Random Glucose 237 MG/DL Calcium Level 8.4 MG/DL Phosphorus Level 2.9 MG/DL Magnesium Level 2.0 MG/DL Imaging Last Impressions Chest X-Ray 05/13/16 0600 Signed Impressions: Service Date/Time: Friday, May 13, 2016 02:46 - CONCLUSION: No significant change has occurred. Ronald Tinsley MD Upper Extremity Ultrasound 05/10/16 0000 Signed Impressions: Service Date/Time: Tuesday, May 10, 2016 09:44 - CONCLUSION: Occlusive thrombus in the right cephalic vein. Otherwise negative Shahid Sin MD Lower Extremity Ultrasound 05/10/16 0000 Signed Impressions: Service Date/Time: Tuesday, May 10, 2016 09:20 - CONCLUSION: Occlusive thrombus right posterior tibial vein. Otherwise negative with negative left lower extremity Shahid Sin MD Head CT 05/08/16 0000 Signed Impressions: Service Date/Time: Sunday, May 08, 2016 17:42 - CONCLUSION: Intracranially negative. Ethmoid and left maxillary sinus disease includes air-fluid level left maxillary sinus. Shahid Sin MD CT Angiography 05/06/16 0000 Signed Impressions: Service Date/Time: Saturday, May 07, 2016 00:04 - CONCLUSION: 1. Lobar consolidation bilaterally in the lower lobes. 2. Negative for pulmonary embolism. 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 Assessment and Plan: Cont aggressive medical management for CAD Start Lopressor and optimize as tolerated by HR and BP (2) Hypertensive emergency (3) Acute hypoxemic respiratory failure (4) Diabetes mellitus (5) CAD (coronary artery disease) Musa Jones MD May 13, 2016 11:52
[2016-05-13] MEDS ORDERED: METOPROLOL TARTRATE 25 MG TAB PO SCH (12:00)
[2016-05-13 12:30] LABS: BLOOD GAS BASE EXCESS 3.4 mmol/L (-2-2); BLOOD GAS CARBOXYHEMOGLOBIN 1.6 % (0-4); BLOOD GAS HCO3 28 mmol/L (22-26); BLOOD GAS METHEMOGLOBIN 1.1 % (0-2); BLOOD GAS O2 HGB SATURATION 91 % (90-100); BLOOD GAS OXYGEN CONTENT 15.7 Vol % (12.0-20.0); BLOOD GAS PCO2 42 mmHg (38-42); BLOOD GAS PO2 69 mmHg (61-120); BLOOD GAS TOTAL HGB 12.3 G/DL (12.0-16.0); TEMP CORR TO 98.6
[2016-05-13 12:31] LABS: CRITICAL VALUE NO; DRAW SITE LT RADIAL; FIO2 45 %; NUMBER OF ARTERIAL PUNCTURES 1; OXYGEN DEVICE VENTILATOR; STAT NO; ULNAR PULSE PRESENT; VENT SETTINGS CPAP/PS5/PEEP5
[2016-05-13] MEDS: LABETALOL HCL 100 MG/20 ML VIAL IV PUSH PRN ×3 (12:34→16:49)
[2016-05-13] MEDS ORDERED: RESP: RACEPINEPHRINE 2.25% 0.5 ML NEB ONE (13:15)
[2016-05-13] MEDS: RESP: ALBUTEROL 2.5 MG/IPRATROPIUM 0.5 MG NEB (PRN) INH ×2 (13:35→20:47)
[2016-05-13] MEDS: niCARdipine INJ 25 MG in SODIUM CHLOR 0.9% 250 ML INJ 250 ML IV SCH ×5 (16:13→23:26)
[2016-05-13] MEDS ORDERED: hydrALAZINE HCL 20 MG/ML VIAL IV PUSH PRN (16:15)
[2016-05-13] MEDS: cloNIDine HCL 0.2 MG TAB PO SCH ×2 (16:15→20:21)
[2016-05-13] MEDS: HALOPERIDOL LACTATE 5 MG/ML AMP IV PUSH PRN (16:49)
[2016-05-13] MEDS: ACETAMINOPHEN 1000 MG/100 ML VIAL IV PRN (19:23)
[2016-05-13] MEDS: METOPROLOL TARTRATE 25 MG TAB PO SCH (20:21)
[2016-05-14] VITALS (17 sets, daily range): BP systolic 130–170; BP diastolic 79–110; PULSE 65–114; RESP 18–24; TEMP 99.4–101.3; O2SAT 96–100
[2016-05-14] MEDS: niCARdipine INJ 25 MG in SODIUM CHLOR 0.9% 250 ML INJ 250 ML IV SCH ×2 (02:08→04:43)
[2016-05-14] MEDS: CHLORHEXIDINE GLUCONATE 2 % 1 PACK (2 CLOTHS) TOP SCH (04:00)
[2016-05-14] MEDS: oxyCODONE HCL ORAL CONC 20 MG/ML SYRINGE PO SCH ×4 (04:00→20:39)
[2016-05-14 04:36] LABS: AUTOMATED NEUTROPHIL # 8.9 TH/MM3 (1.8-7.7); BASOPHIL # 0.1 TH/MM3 (0-0.2); BASOPHIL % 0.9 % (0.0-2.0); EOSINOPHIL # 0.1 TH/MM3 (0-0.4); HEMO FLAGS DIFF FINAL; LYMPH % 9.7 % (9.0-44.0); LYMPHOCYTE # 1.1 TH/MM3 (1.0-4.8); MEAN CELL VOLUME 87.9 FL (80.0-100.0); MEAN CORPUSCULAR HEMOGLOBIN 28.7 PG (27.0-34.0); MEAN CORPUSCULAR HGB CONC 32.6 % (32.0-36.0); MONO % 10.7 % (0.0-8.0); NEUT % 77.7 % (16.0-70.0); PLATELET COUNT 257 TH/MM3 (150-450); RED BLOOD COUNT 4.21 MIL/MM3 (4.50-5.90); RED CELL DISTRIBUTION WIDTH 14.4 % (11.6-17.2); WHITE BLOOD COUNT 11.4 TH/MM3 (4.0-11.0)
[2016-05-14] MEDS: METOPROLOL TARTRATE 25 MG TAB PO SCH ×3 (04:39→20:38)
[2016-05-14] MEDS: PIPERACIL-TAZO 3.375 GM PREMIX 50 ML IV SCH ×4 (04:39→23:09)
[2016-05-14] MEDS: NIFEdipine 10 MG CAP PO SCH (04:39)
[2016-05-14] MEDS: SENNOSIDES 8.6 MG TAB PO SCH ×2 (04:39→16:58)
[2016-05-14] MEDS: cloNIDine HCL 0.2 MG TAB PO SCH ×3 (04:39→20:38)
[2016-05-14] MEDS: QUEtiapine FUMARATE 100 MG TAB PO SCH (04:40)
--- NOTE | 2016-05-14 04:44 | RADRPT ---
EXAM DATE/TIME: 05/14/2016 03:04 [facility] COMPARISON: CHEST SINGLE AP, May 13, 2016, 2:46. INDICATIONS : Shortness of breath, possible pulmonary disease. MEDICAL HISTORY : Hypertension. Congestive heart failure. Diabetes mellitus type II. SURGICAL HISTORY : None. ENCOUNTER: Subsequent ACUITY: 1 week PAIN SCORE: Non-responsive. LOCATION: Bilateral chest FINDINGS: Slight improved aeration. No definite effusions on the current study. Cardiomegaly and aortic calcifi cation. Minimal left basilar airspace disease suspected. CONCLUSION: Improved appearance of the chest. Ronald Tinsley MD on May 14, 2016 at 4:42 Board Certified Radiologist. This report was verified electronically.
[2016-05-14 04:57] LABS: ALT (GPT) 76 U/L (12-78); ANION GAP 7 MEQ/L (5-15); AST (GOT) 77 U/L (15-37); BICARBONATE 29.8 MEQ/L (21.0-32.0); BLOOD UREA NITROGEN 32 MG/DL (7-18); CHLORIDE 109 MEQ/L (98-107); GLOMERULAR FILTRATION RATE 69 ML/MIN (>89); POTASSIUM 3.5 MEQ/L (3.5-5.1); SODIUM (NA) 146 MEQ/L (136-145)
[2016-05-14 04:59] LABS: ALKALINE PHOSPHATASE 90 U/L (45-117); TOTAL BILIRUBIN ADULT 0.5 MG/DL (0.2-1.0)
[2016-05-14] MEDS: INSULIN NovoLIN REGULAR SUPPLEMENTAL SCALE SQ SCH ×4 (06:00→23:47)
[2016-05-14] MEDS: RESP: ALBUTEROL 2.5 MG/IPRATROPIUM 0.5 MG NEB (PRN) INH (07:38)
[2016-05-14] MEDS ORDERED: LORazepam 2 MG/ML VIAL IV PUSH PRN (08:30)
--- NOTE | 2016-05-14 08:33 | HHI.CCPN ---
Subjective Remarks/Hospital Course 61-year-old AA male. Date of admission 05/05/2016. Date of consultation 2016. Past medical history includes hypertensive heart disease, hypertension, diabetes mellitus type 2 and spinal stenosis. He presented to [place] [facility] today with history of acute onset of diaphoresis, chest pain and syncope. Her documentation, Chest pain was 7 out of 10 without radiation. Later in the hospital physician, patient did have ST elevation anterior septal leads. I he had a cardiac catheterization in 2009 which revealed moderate coronary disease which documented 50-60% stenosis in the LAD diagonals 1 and 2. Recommended medical management at that time. Dr. Marcano was notified and proceed to the cardiac catheter lab. Patient sees heparin and one aspirin prior to cardiac catheterization. During heart catheterization,, patient became hypertensive, tachypneic, hypoxic and agitated including abdominal pain with nausea and vomiting. Patient was intubated by Dr. Simon and dispensed transferred to room 505a. Currently hemodynamic stable on a propofol drip. 05/06: Patient required additional sedation overnight. Was moving all 4 extremity spontaneously and strongly. Potassium is replaced overnight along with magnesium. This afternoon approximate 4 PM, patient went into a sinus bradycardia in the 40s. RN cannot locate pulse and possibly went into a PEA arrest. Patient received CPR for approximately 2 minutes. ROSC return immediately. Received 1 mg of epinephrine IV. Blood pressure was 240 systolic. Saturations were above 90% the entire time. Dr. Marcano was made aware. No new recommendations at this time. Electrolytes currently pending. Patient is currently hemodynamic stable and an arterial line/left radial has been placed 05/07: no improvement in delirium or mental status. spiking low grade fevers. 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 CT surgery consulted and declined to operate here: he will need referral once stabilized. fio2 requirements still high. CT chest also with evidence of bibasilar consolidation which may be aspiration pneumonitis vs. pneumonia now that we are 48h out from initial presentation and now spiking fevers. 05/08: delirium persists. continues to spike fevers. jolly cultured yesterday without results yet. holding sedation today. 05/09: delirium slightly improved. waking up on SAT, weakly following commands. cultures still NGTD. hypoxia slightly improved. 05/10: delirium improving. weakly following commands still. cultures still NGTD. fevers persist, although fever curve appears to be improving. hypoxia continues to improve. still remains very critically ill. 05/11: Tmax 99.9. Currently 99.1. Tolerating tube feeding. One bowel movement. Continues to have difficulty weaning ventilator. Subjective 05/12: Currently afebrile. Tolerating tube feeding. Positive BM. Increased FiO2 from 45-60%. +1 L. Arousable on sedation vacation and weakly follows commands. 05/13: Remains intubated, sedated. FiO2 now reduced to 45% (was 55% today am). Start weaning trials after starting Precedex. To control BP May use Cardene, given anomalous RCA 05/14: Extubated yesterday, remained on BiPAP overnight. Intermittently agitated. Following commands to me today, while on BiPAP. Remains on Cardene infusion for uncontrolled hypertension. Urine output 4.7 L in 24 hours Objective Vital Signs Date Time Temp Pulse Resp B/P Pulse Ox O2 Delivery O2 Flow Rate FiO2 05/14/16 06:00 65 05/14/16 04:12 98 35 05/14/16 04:00 99.6 24 133/79 05/13/16 22:00 Bi-Pap Intake and Output 05/13/16 05/13/16 05/14/16 08:00 16:00 00:00 Intake Total 992 ml 772 ml 1020 ml Output Total 400 ml 1750 ml 1900 ml Balance 592 ml -978 ml -880 ml Result Diagram: 05/14/16 0356 05/14/16 0356 Other Results Laboratory Tests Test 05/13/16 12:20 Blood Gas Puncture Site LT RADIAL Blood Gas Patient Temperature 98.6 Blood Gas HCO3 28 mmol/L (22-26) Blood Gas Base Excess 3.4 mmol/L (-2-2) Blood Gas Oxygen Saturation 91 % (90-100) Arterial Blood pH 7.43 (7.380-7.420) Arterial Blood Partial 42 mmHg (38-42) Pressure CO2 Arterial Blood Partial 69 mmHg Pressure O2 (61-120) Arterial Blood Oxygen Content 15.7 Vol % (12.0-20.0) Arterial Blood 1.6 % (0-4) Carboxyhemoglobin Arterial Blood Methemoglobin 1.1 % (0-2) Blood Gas Hemoglobin 12.3 G/DL (12.0-16.0) Oxygen Delivery Device VENTILATOR Blood Gas Ventilator Setting CPAP/PS5/PEEP5 Blood Gas Inspired Oxygen 45 % Imaging Last Impressions Chest X-Ray 05/12/16 0600 Signed Impressions: Service Date/Time: Thursday, May 12, 2016 03:30 - CONCLUSION: Worsening appearance of the chest. Ronald Tinsley MD Upper Extremity Ultrasound 05/10/16 0000 Signed Impressions: Service Date/Time: Tuesday, May 10, 2016 09:44 - CONCLUSION: Occlusive thrombus in the right cephalic vein. Otherwise negative Shahid Sin MD Lower Extremity Ultrasound 05/10/16 0000 Signed Impressions: Service Date/Time: Tuesday, May 10, 2016 09:20 - CONCLUSION: Occlusive thrombus right posterior tibial vein. Otherwise negative with negative left lower extremity Shahid Sin MD Head CT 05/08/16 0000 Signed Impressions: Service Date/Time: Sunday, May 08, 2016 17:42 - CONCLUSION: Intracranially negative. Ethmoid and left maxillary sinus disease includes air-fluid level left maxillary sinus. Shahid Sin MD CT Angiography 05/06/16 0000 Signed Impressions: Service Date/Time: Saturday, May 07, 2016 00:04 - CONCLUSION: 1. Lobar consolidation bilaterally in the lower lobes. 2. Negative for pulmonary embolism. Michael Colbert MD Objective Remarks GENERAL: 61-year-old AA male, morbidly obese, critically ill currently on BiPAP SKIN: Warm and dry. No rash HEAD: Atraumatic. Normocephalic. EYES: Pupils equal and round around 2 mm bilaterally and reactive. No scleral icterus. No injection or drainage. ENT: No nasal bleeding or discharge. Mucous membranes pink and moist. NECK: Trachea midline. JVD difficult to assess due to body habitus. CARDIOVASCULAR: Distant due to body habitus. Regular rate and rhythm. S1, S2. Without murmur RESPIRATORY: Diminished breath sounds bilaterally due to body habitus. Breath sounds equal bilaterally. GASTROINTESTINAL: Abdomen obese, non-tender, protuberant. no guarding. MUSCULOSKELETAL: Extremities without significant peripheral edema. NEUROLOGICAL: Drowsy on BiPAP, currently on Precedex 0.2 g per KG per hour. follows commands. moves all extremities spontaneously. A/P Assessment and Plan Neuro/Psych: Acute toxic metabolic encephalopathy Wean to DC Precedex Discontinue Seroquel and Haldol due to nonsustained V. tach Ativan IV 0.5 mg every 3 hours when necessary for agitation, morphine IV for pain and agitation 05/11 added oxycodone liquid 5 milligrams every 6 in attempt to wean Head CT 05/08: negative acute. EEG 05/12 revealed generalized slowing right greater than left. No epileptiform activity. CV: Aberrant RCA off LCC Nonsustained V. tach Diastolic heart failure Coronary artery disease Nonischemic cardiomyopathy secondary to hypertensive heart disease Hypertensive emergency Status post cardiac catheterization by Dr. Moy. No intervention performed. Known coronary artery artery disease to the first and second diagonals the LAD. Aberrant RCA off left coronary cups. Dr. Pendleton consulted: need referral when stable for RCA unroofing Aspirin 81 mg daily and Plavix 75 mg daily. Continue Lipitor 20 mg a night. Currently holding home medications of hydrochlorothiazide 25 mg daily, spironolactone 50 mg twice a day Continue Cardene infusion to keep systolic blood pressure less than 160 Nifedipine 10 mg 4 times a day-changed to Procardia XL 90 mg daily on 05/14/16. Continue metoprolol 25 mg by mouth every 8 hours, continue clonidine 0.2 mg by mouth every 8 hours Continue IV Lasix 40 mg every 12 Pulm: Acute hypoxemic respiratory failure-extubated 05/13/16 Likely underlying STU Bilateral pleural effusion Extubated yesterday 05/13/16 Use BiPAP when necessary and daily at bedtime Bronchodilator therapy continue easy Pap, a cappella and incentive spirometry Aggressive pulmonary toilet Chest x-ray today shows improving aeration in infiltrates GI: Hypoalbuminemia Constipation- resolved. Nothing by mouth except meds until cleared by speech/swallow eval Protonix for GI prophylaxis Colace/Senokot twice a day for bowel regimen, : Chaudhry for accurate I's and O's in a critically ill patient Continue IV Lasix 40 mg every 12, with scheduled potassium Endo: Diabetes mellitus type 2 Holding metformin Sliding-scale insulin Accu-Cheks to maintain euglycemia. Medium regimen every 6 hours Renal: Acute kidney injury - resolving Creatinine elevated slightly, likely multifactorial, including prerenal from shock and contrast nephropathy Monitor BMP in a.m. Carefully diurese with Lasix 40 IV every 12 Heme: Right cephalic superficial thrombus/right PT DVT Normocytic anemia CBC daily. Monitor trends. No active bleeding. Lovenox 150 mg subcutaneous twice a day ID: Aspiration pneumonia --continue Zosyn 3.375gm iv q8h Pertinent cultures 05/07 - blood cultures 2 - negative 05/08 - sputum - negative 05/08 - urine - negative 05/08 - blood cultures - negative FEN: Hypernatremia Electrolyte protocol initiated. Replace as clinically indicated MSK: History of spinal stenosis/laminectomy/left total knee replacement and left ring finger amputation PT evaluate and treat Access - Utilize peripheral IV./Central line if indicated Prophylaxis - GI - Protonix - DVT - SCD/Lovenox Critical Care: The total critical care time was 35 minutes. Time to perform other separately billable procedures was not included in the critical care time. PT OOB to chair today Tahmina Kelsey MD May 14, 2016 08:32
[2016-05-14] MEDS: PANTOPRAZOLE SODIUM 40 MG VIAL IV SCH (08:34)
[2016-05-14] MEDS: FUROSEMIDE 40 MG/4 ML VIAL IV PUSH SCH ×2 (08:34→17:27)
[2016-05-14] MEDS: ARTIFICIAL TEARS OPTH SOLN 15 ML BTL EACH EYE SCH ×3 (08:35→18:00)
[2016-05-14] MEDS: ENOXAPARIN SODIUM 150 MG/ML SYRINGE SQ SCH ×2 (08:35→20:00)
[2016-05-14] MEDS: SODIUM CHLORIDE 0.9% FLUSH 5 ML FLUSH IV FLUSH SCH ×2 (08:35→20:37)
[2016-05-14] MEDS: DOCUSATE SODIUM 100 MG CAP PO SCH ×2 (08:45→20:37)
[2016-05-14] MEDS: ASPIRIN 81 MG CHEW TAB CHEW SCH (08:46)
[2016-05-14] MEDS: CLOPIDOGREL 75 MG TAB PO SCH (08:46)
[2016-05-14] MEDS: ATORVASTATIN 20 MG TAB PO SCH (08:46)
[2016-05-14] MEDS: NIFEdipine 90 MG SUSTAINED RELEASE TAB PO SCH (09:19)
[2016-05-14] MEDS: ACETAMINOPHEN 325 MG TAB PO PRN (23:10)
[2016-05-15] VITALS (15 sets, daily range): BP systolic 92–177; BP diastolic 52–96; PULSE 80–138; RESP 20–32; TEMP 98.4–99.9; O2SAT 94–100
[2016-05-15] MEDS: niCARdipine INJ 25 MG in SODIUM CHLOR 0.9% 250 ML INJ 250 ML IV SCH ×4 (00:23→08:31)
[2016-05-15] MEDS: MORPHINE SULFATE 4 MG/ML INJ IV PUSH PRN ×3 (02:40→15:56)
[2016-05-15] MEDS: oxyCODONE HCL ORAL CONC 20 MG/ML SYRINGE PO SCH ×4 (03:41→20:54)
[2016-05-15] MEDS: CHLORHEXIDINE GLUCONATE 2 % 1 PACK (2 CLOTHS) TOP SCH (03:41)
[2016-05-15] MEDS: PIPERACIL-TAZO 3.375 GM PREMIX 50 ML IV SCH ×3 (04:26→15:56)
--- NOTE | 2016-05-15 04:38 | RADRPT ---
EXAM DATE/TIME: 05/15/2016 02:48 [place] COMPARISON: CHEST SINGLE AP, May 14, 2016, 3:04. INDICATIONS : Shortness of breath, possible pulmonary disease. MEDICAL HISTORY : Hypertension. Congestive heart failure. Diabetes mellitus type II. SURGICAL HISTORY : None. ENCOUNTER: Subsequent ACUITY: 1 week PAIN SCORE: Non-responsive. LOCATION: Bilateral chest FINDINGS: Mild perihilar infiltrates are slightly worse compared to yesterday. No large effusion. No pneumothor ax. Mild cardiomegaly is stable. CONCLUSION: Mild bilateral perihilar infiltrates worsening and mild cardiomegaly. Low Johnson MD on May 15, 2016 at 4:35 Board Certified Radiologist. This report was verified electronically.
[2016-05-15] MEDS: METOPROLOL TARTRATE 25 MG TAB PO SCH ×3 (05:27→22:00)
[2016-05-15] MEDS: cloNIDine HCL 0.2 MG TAB PO SCH ×3 (05:27→22:00)
[2016-05-15] MEDS: INSULIN NovoLIN REGULAR SUPPLEMENTAL SCALE SQ SCH ×3 (05:28→17:22)
[2016-05-15] MEDS: SENNOSIDES 8.6 MG TAB PO SCH ×2 (05:28→17:22)
[2016-05-15 06:50] LABS: BASOPHIL # 0.1 TH/MM3 (0-0.2); BASOPHIL % 0.6 % (0.0-2.0); EOSINOPHIL # 0.1 TH/MM3 (0-0.4); EOSINOPHIL % 1.1 % (0.0-4.0); HEMATOCRIT 33.9 % (39.0-51.0); HEMO FLAGS DIFF FINAL; LYMPH % 16.4 % (9.0-44.0); MEAN CELL VOLUME 88.9 FL (80.0-100.0); MEAN CORPUSCULAR HEMOGLOBIN 28.6 PG (27.0-34.0); MEAN CORPUSCULAR HGB CONC 32.2 % (32.0-36.0); MONO % 9.2 % (0.0-8.0); NEUT % 72.7 % (16.0-70.0); PLATELET COUNT 290 TH/MM3 (150-450); RED BLOOD COUNT 3.82 MIL/MM3 (4.50-5.90); RED CELL DISTRIBUTION WIDTH 14.3 % (11.6-17.2); WHITE BLOOD COUNT 12.4 TH/MM3 (4.0-11.0)
[2016-05-15 07:11] LABS: ALKALINE PHOSPHATASE 83 U/L (45-117); ALT (GPT) 90 U/L (12-78); ANION GAP 7 MEQ/L (5-15); AST (GOT) 93 U/L (15-37); BICARBONATE 30.9 MEQ/L (21.0-32.0); BLOOD UREA NITROGEN 27 MG/DL (7-18); CHLORIDE 110 MEQ/L (98-107); GLOMERULAR FILTRATION RATE 73 ML/MIN (>89); MAGNESIUM 2.1 MG/DL (1.5-2.5); POTASSIUM 3.1 MEQ/L (3.5-5.1); SODIUM (NA) 148 MEQ/L (136-145); TOTAL BILIRUBIN ADULT 0.6 MG/DL (0.2-1.0)
[2016-05-15] MEDS: NIFEdipine 90 MG SUSTAINED RELEASE TAB PO SCH (08:30)
[2016-05-15] MEDS: ENOXAPARIN SODIUM 150 MG/ML SYRINGE SQ SCH ×2 (08:30→20:42)
[2016-05-15] MEDS: DOCUSATE SODIUM 100 MG CAP PO SCH ×2 (08:30→20:42)
[2016-05-15] MEDS: SODIUM CHLORIDE 0.9% FLUSH 5 ML FLUSH IV FLUSH SCH ×2 (08:30→20:42)
[2016-05-15] MEDS: CLOPIDOGREL 75 MG TAB PO SCH (08:30)
[2016-05-15] MEDS: FUROSEMIDE 40 MG/4 ML VIAL IV PUSH SCH (08:30)
[2016-05-15] MEDS: ASPIRIN 81 MG CHEW TAB CHEW SCH (08:30)
[2016-05-15] MEDS: ARTIFICIAL TEARS OPTH SOLN 15 ML BTL EACH EYE SCH ×3 (08:31→18:00)
[2016-05-15] MEDS: PANTOPRAZOLE SODIUM 40 MG VIAL IV SCH (08:31)
[2016-05-15] MEDS: ATORVASTATIN 20 MG TAB PO SCH (08:32)
[2016-05-15] MEDS: POTASSIUM CHLOR 40 MEQ PREMIX 100 ML IV PRN ×2 (08:45→11:54)
--- NOTE | 2016-05-15 09:41 | PD.CARD.PN ---
Subjective Subjective Remarks Awake and alert on NC, no chest pain, no shortness of breath Objective Medications Current Medications Medications (Trade) Dose Ordered Sig/Isabelle Route Start Time Stop Time Status Last Admin (NS Flush) 2 ml UNSCH PRN IV FLUSH 05/05/16 17:15 (NS Flush) 2 ml BID IV FLUSH 05/05/16 21:00 05/15/16 08:30 (Tylenol) 650 mg Q6H PRN PO 05/05/16 17:15 05/14/16 23:10 (Protonix Inj) 40 mg DAILY IV 05/06/16 09:00 05/15/16 08:31 (Tears Naturale Opth Soln) 1 drop TID EACH EYE 05/05/16 18:00 05/15/16 08:31 (Zofran Inj) 4 mg Q6H PRN IV 05/05/16 17:15 (Colace) 100 mg BID PO 05/05/16 21:00 05/15/16 08:30 Miscellaneous Information 1 Q361D XX 05/05/16 17:15 05/05/16 17:15 (Chlorhexidine 2% Cloth) Taper DAILY@04 TOP 05/06/16 04:00 05/02/17 03:59 05/15/16 03:41 Chlorhexidine Gluconate 3 pack 3 pack UNSCH PRN TOP 05/05/16 17:15 Potassium Chloride 100 ml @ 50 mls/hr Q2H PRN IV 05/05/16 17:15 05/15/16 08:45 (KCl 20 Meq Premix Inj) 100 ml @ 50 mls/hr Q2H PRN IV 05/05/16 17:15 05/06/16 09:00 Potassium Chloride 40 meq 40 meq UNSCH PRN PO/TUBE 05/05/16 17:15 05/13/16 04:42 Potassium Chloride 100 ml @ 25 mls/hr UNSCH PRN IV 05/05/16 17:15 Potassium Chloride 100 ml @ 50 mls/hr Q2H PRN IV 05/05/16 17:15 05/14/16 09:19 (Magnesium Sulfate Inj/NS Inj) 100 ml @ 50 mls/hr UNSCH PRN IV 05/05/16 17:15 Magnesium Oxide 800 mg 800 mg UNSCH PRN PO 05/05/16 17:15 05/06/16 05:25 (Magnesium Sulfate Inj/NS Inj) 100 ml @ 50 mls/hr UNSCH PRN IV 05/05/16 17:15 Potassium Phosphate 2000 mg 2,000 mg Q4H PRN PO 05/05/16 17:15 (Sodium Phosphate Inj/NS 250 ml Inj) 250 ml @ 42 mls/hr UNSCH PRN IV 05/05/16 17:15 (KCl 40 Meq/30 ml Liq) 40 meq UNSCH PRN PO/TUBE 05/05/16 17:15 Potassium Phosphate 2000 mg 2,000 mg UNSCH PRN PO/TUBE 05/05/16 17:15 (Potassium Phosphate Inj/NS 250 ml Inj) 260 ml @ 42 mls/hr UNSCH PRN IV 05/05/16 17:15 (Glucagon Inj) 1 mg UNSCH PRN OTHER 05/05/16 17:15 (Aspirin Chew) 81 mg DAILY CHEW 05/06/16 09:00 05/15/16 08:30 (Plavix) 75 mg DAILY PO 05/06/16 09:00 05/15/16 08:30 (Lipitor) 20 mg DAILY PO 05/06/16 09:00 05/15/16 08:32 Sennosides 17.2 mg 17.2 mg Q12H PO 05/06/16 18:00 05/12/16 18:19 (Cardene Inj/NS 250 ml Inj) 260 ml @ 0 mls/hr TITRATE IV 05/06/16 23:30 05/15/16 08:31 (Trandate Inj) 20 mg Q2HR PRN IV PUSH 05/06/16 23:30 05/13/16 16:49 Morphine Sulfate 4 mg 4 mg Q3H PRN IV PUSH 05/06/16 23:45 05/15/16 02:40 (Zosyn 3.375 Gm Premix) 50 ml @ 100 mls/hr Q6H IV 05/07/16 17:00 05/15/16 04:26 (D50w (Vial) Inj) 25 ml UNSCH PRN IV PUSH 05/08/16 21:00 (NovoLIN R SUPPLEMENTAL SCALE) 1 Q6HR SQ 05/09/16 00:00 05/15/16 05:28 (Lovenox Inj) 150 mg Q12H SQ 05/10/16 20:00 05/15/16 08:30 (Roxicodone Intensol Liq) 5 mg Q6H PO 05/11/16 16:00 05/15/16 08:30 (Pill Splitter) 1 ea UNSCH PRN OTHER 05/11/16 15:15 (Lasix Inj) 40 mg BID@09,18 IV PUSH 05/12/16 18:00 05/15/16 08:30 (Apresoline Inj) 20 mg Q4H PRN IV PUSH 05/13/16 16:15 (Lopressor) 25 mg Q8HR PO 05/13/16 22:00 05/15/16 05:27 (Catapres) 0.2 mg Q8HR PO 05/13/16 16:15 05/15/16 05:27 (Ofirmev Inj) 1,000 mg Q6H PRN IV 05/13/16 18:30 05/13/16 19:23 (Ativan Inj) 0.5 mg Q2H PRN IV PUSH 05/14/16 08:30 (Procardia Xl) 90 mg DAILY PO 05/14/16 09:00 05/15/16 08:30 Vital Signs / I&O Vital Signs Date Time Temp Pulse Resp B/P Pulse Ox O2 Delivery O2 Flow Rate FiO2 05/15/16 08:20 94 Nasal Cannula 3.00 05/15/16 07:00 100 Nasal Cannula 4.00 05/15/16 06:00 112 05/15/16 04:00 110 05/15/16 04:00 99.0 109 20 109/70 95 05/15/16 02:00 112 05/15/16 02:00 112 20 177/84 94 05/15/16 00:00 99.1 108 20 160/91 97 05/15/16 00:00 108 05/14/16 23:00 97 Nasal Cannula 4.00 05/14/16 22:00 100.8 104 20 170/110 98 05/14/16 22:00 110 05/14/16 21:02 98 35 05/14/16 20:00 114 05/14/16 19:00 100 Bi-Pap 35 05/14/16 18:00 104 05/14/16 16:00 100.1 104 20 165/105 97 05/14/16 16:00 104 05/14/16 14:00 112 05/14/16 12:00 101.3 109 18 151/96 96 05/14/16 12:00 109 05/14/16 10:00 111 I/O 05/14/16 05/14/16 05/14/16 05/15/16 05/15/16 05/15/16 07:00 15:00 23:00 07:00 15:00 23:00 Intake Total 1189 ml 1180 ml 841 ml 1091 ml Output Total 1050 ml 1750 ml 1900 ml 1300 ml Balance 139 ml -570 ml -1059 ml -209 ml Intake Oral 480 ml 420 ml 360 ml IV Total 1189 ml 700 ml 421 ml 731 ml Output Urine Total 1050 ml 1750 ml 1900 ml 1300 ml # Bowel Movements 0 4 1 0 Physical Exam GENERAL: Awake and alert on NC SKIN: Warm and dry. HEAD: Atraumatic. Normocephalic. EYES: Pupils equal and round. No scleral icterus. No injection or drainage. ENT: No nasal bleeding or discharge. Mucous membranes pink and moist. NECK: Trachea midline. No JVD. CARDIOVASCULAR: Regular rhythm. Mildly tachycardic RESPIRATORY: No accessory muscle use. Decreased breath sounds bilaterally GASTROINTESTINAL: Abdomen soft, non-tender, nondistended. Hepatic and splenic margins not palpable. MUSCULOSKELETAL: Extremities without clubbing, cyanosis, or edema. No obvious deformities. Right radial no hematoma. Right femoral no hematoma/bruit noted NEUROLOGICAL: No focal deficits Laboratory Laboratory Tests Test 05/15/16 05:36 White Blood Count 12.4 TH/MM3 Red Blood Count 3.82 MIL/MM3 Hemoglobin 10.9 GM/DL Hematocrit 33.9 % Mean Corpuscular Volume 88.9 FL Mean Corpuscular Hemoglobin 28.6 PG Mean Corpuscular Hemoglobin 32.2 % Concent Red Cell Distribution Width 14.3 % Platelet Count 290 TH/MM3 Mean Platelet Volume 8.7 FL Neutrophils (%) (Auto) 72.7 % Lymphocytes (%) (Auto) 16.4 % Monocytes (%) (Auto) 9.2 % Eosinophils (%) (Auto) 1.1 % Basophils (%) (Auto) 0.6 % Neutrophils # (Auto) 9.0 TH/MM3 Lymphocytes # (Auto) 2.0 TH/MM3 Monocytes # (Auto) 1.1 TH/MM3 Eosinophils # (Auto) 0.1 TH/MM3 Basophils # (Auto) 0.1 TH/MM3 CBC Comment DIFF FINAL Differential Comment Sodium Level 148 MEQ/L Potassium Level 3.1 MEQ/L Chloride Level 110 MEQ/L Carbon Dioxide Level 30.9 MEQ/L Anion Gap 7 MEQ/L Blood Urea Nitrogen 27 MG/DL Creatinine 1.23 MG/DL Estimat Glomerular Filtration 73 ML/MIN Rate Random Glucose 172 MG/DL Calcium Level 8.5 MG/DL Magnesium Level 2.1 MG/DL Total Bilirubin 0.6 MG/DL Aspartate Amino Transf 93 U/L (AST/SGOT) Alanine Aminotransferase 90 U/L (ALT/SGPT) Alkaline Phosphatase 83 U/L Total Protein 7.0 GM/DL Albumin 2.5 GM/DL Assessment and Plan Problem List: (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 (2) Hypertensive emergency (3) Acute hypoxemic respiratory failure (4) Diabetes mellitus (5) CAD (coronary artery disease) (6) NSVT (nonsustained ventricular tachycardia) Assessment and Plan 1) HTN emergency, concern for possible STEMI on admission, most like EKG changes from Emergent HTN 2) Cardiac cath showing mild to moderate CAD 3) Anomalous RCA off Left Coronary Cusp, will need CTA of coronaries to define pathway of RCA to make sure not intra-arterial (between PA and Aorta) especially with chest pain/pre-syncopal episodes... but CT done shows that RCA most likely takes an intra-arterial route 4) Blood pressure elevated, Norvasc changed to Procardia... currently controlled... try to keep SBP lowered due to intra-arterial anomalous RCA route 5) DVT, on heparin gtt 6) NSVT, potassium noted to be low, will replace 7) Will discuss with CT Surgery about possible transfer for unroofing of RCA Maurizio Marcano DO May 15, 2016 09:41
[2016-05-15] MEDS: RESP: ALBUTEROL 2.5 MG/IPRATROPIUM 0.5 MG NEB (SCH) NEB ×3 (10:30→22:00)
--- NOTE | 2016-05-15 10:48 | HHI.CCPN ---
Subjective Remarks/Hospital Course 61-year-old AA male. Date of admission 05/05/2016. Date of consultation 2016. Past medical history includes hypertensive heart disease, hypertension, diabetes mellitus type 2 and spinal stenosis. He presented to [facility] today with history of acute onset of diaphoresis, chest pain and syncope. Her documentation, Chest pain was 7 out of 10 without radiation. Later in the hospital physician, patient did have ST elevation anterior septal leads. I he had a cardiac catheterization in 2009 which revealed moderate coronary disease which documented 50-60% stenosis in the LAD diagonals 1 and 2. Recommended medical management at that time. Dr. Marcano was notified and proceed to the cardiac catheter lab. Patient sees heparin and one aspirin prior to cardiac catheterization. During heart catheterization,, patient became hypertensive, tachypneic, hypoxic and agitated including abdominal pain with nausea and vomiting. Patient was intubated by Dr. Simon and dispensed transferred to room 505a. Currently hemodynamic stable on a propofol drip. 05/06: Patient required additional sedation overnight. Was moving all 4 extremity spontaneously and strongly. Potassium is replaced overnight along with magnesium. This afternoon approximate 4 PM, patient went into a sinus bradycardia in the 40s. RN cannot locate pulse and possibly went into a PEA arrest. Patient received CPR for approximately 2 minutes. ROSC return immediately. Received 1 mg of epinephrine IV. Blood pressure was 240 systolic. Saturations were above 90% the entire time. Dr. Marcano was made aware. No new recommendations at this time. Electrolytes currently pending. Patient is currently hemodynamic stable and an arterial line/left radial has been placed 05/07: no improvement in delirium or mental status. spiking low grade fevers. 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 CT surgery consulted and declined to operate here: he will need referral once stabilized. fio2 requirements still high. CT chest also with evidence of bibasilar consolidation which may be aspiration pneumonitis vs. pneumonia now that we are 48h out from initial presentation and now spiking fevers. 05/08: delirium persists. continues to spike fevers. jolly cultured yesterday without results yet. holding sedation today. 05/09: delirium slightly improved. waking up on SAT, weakly following commands. cultures still NGTD. hypoxia slightly improved. 05/10: delirium improving. weakly following commands still. cultures still NGTD. fevers persist, although fever curve appears to be improving. hypoxia continues to improve. still remains very critically ill. 05/11: Tmax 99.9. Currently 99.1. Tolerating tube feeding. One bowel movement. Continues to have difficulty weaning ventilator. Subjective 05/12: Currently afebrile. Tolerating tube feeding. Positive BM. Increased FiO2 from 45-60%. +1 L. Arousable on sedation vacation and weakly follows commands. 05/13: Remains intubated, sedated. FiO2 now reduced to 45% (was 55% today am). Start weaning trials after starting Precedex. To control BP May use Cardene, given anomalous RCA 05/14: Extubated yesterday, remained on BiPAP overnight. Intermittently agitated. Following commands to me today, while on BiPAP. Remains on Cardene infusion for uncontrolled hypertension. Urine output 4.7 L in 24 hours 05/15: On 3 L nasal cannula. Fever trending down, breathing more comfortably. Able to communicate. Discussed with Dr. Marcano. Dr. Pendleton will be available tomorrow, will probably need transfer to [facility] for RCA unroofing Objective Vital Signs Date Time Temp Pulse Resp B/P Pulse Ox O2 Delivery O2 Flow Rate FiO2 05/15/16 08:20 94 Nasal Cannula 3.00 05/15/16 06:00 112 05/15/16 04:00 99.0 20 109/70 05/14/16 21:02 35 Intake and Output 05/14/16 05/14/16 05/15/16 08:00 16:00 00:00 Intake Total 1189 ml 1180 ml 841 ml Output Total 1050 ml 1750 ml 1900 ml Balance 139 ml -570 ml -1059 ml Result Diagram: 05/15/16 0536 05/15/16 0536 Other Results Microbiology Date/Time Procedure Status Source Growth 05/13/16 18:40 Urine Culture - Final Complete Urine Catheterized Urine NO GROWTH IN 48 HOURS. Imaging Last Impressions Chest X-Ray 05/12/16 0600 Signed Impressions: Service Date/Time: Thursday, May 12, 2016 03:30 - CONCLUSION: Worsening appearance of the chest. Ronald Tinsley MD Upper Extremity Ultrasound 05/10/16 0000 Signed Impressions: Service Date/Time: Tuesday, May 10, 2016 09:44 - CONCLUSION: Occlusive thrombus in the right cephalic vein. Otherwise negative Shahid Sin MD Lower Extremity Ultrasound 05/10/16 0000 Signed Impressions: Service Date/Time: Tuesday, May 10, 2016 09:20 - CONCLUSION: Occlusive thrombus right posterior tibial vein. Otherwise negative with negative left lower extremity Shahid Sin MD Head CT 05/08/16 0000 Signed Impressions: Service Date/Time: Sunday, May 08, 2016 17:42 - CONCLUSION: Intracranially negative. Ethmoid and left maxillary sinus disease includes air-fluid level left maxillary sinus. Shahid Sin MD CT Angiography 05/06/16 0000 Signed Impressions: Service Date/Time: Saturday, May 07, 2016 00:04 - CONCLUSION: 1. Lobar consolidation bilaterally in the lower lobes. 2. Negative for pulmonary embolism. Michael Colbert MD Objective Remarks GENERAL: 61-year-old AA male, morbidly obese, on NC SKIN: Warm and dry. No rash HEAD: Atraumatic. Normocephalic. EYES: Pupils equal and round around 2 mm bilaterally and reactive. No scleral icterus. No injection or drainage. ENT: No nasal bleeding or discharge. Mucous membranes pink and moist. NECK: Trachea midline. JVD difficult to assess due to body habitus. CARDIOVASCULAR: Distant due to body habitus. Regular rate and rhythm. S1, S2. Without murmur RESPIRATORY: Diminished breath sounds bilaterally due to body habitus. Breath sounds equal bilaterally. GASTROINTESTINAL: Abdomen obese, non-tender, protuberant. no guarding. MUSCULOSKELETAL: Extremities without significant peripheral edema. NEUROLOGICAL: Alert awake, more communicative today, no focal deficits Urinary Catheter: Yes Assessment to: Continue A/P Assessment and Plan Neuro/Psych: Acute toxic metabolic encephalopathy-resolved Off Seroquel and Haldol due to nonsustained V. tach Ativan IV 0.5 mg every 3 hours when necessary for agitation, morphine IV for pain and agitation Oxycodone liquid 5 milligrams every [address] 05/08: negative acute. EEG 05/12 revealed generalized slowing right greater than left. No epileptiform activity. CV: Aberrant RCA off LCC Nonsustained V. tach single episode Diastolic heart failure Coronary artery disease Nonischemic cardiomyopathy secondary to hypertensive heart disease Hypertensive emergency Status post cardiac catheterization by Dr. Moy. No intervention performed. Known coronary artery artery disease to the first and second diagonals the LAD. Aberrant RCA off left coronary cups. Dr. Pendleton will be back tomorrow and Dr. Marcano will discuss transfer to fo RCA unroofing Aspirin 81 mg daily and Plavix 75 mg daily. (Plavix DC d today by Dr. Marcano in anticipation of probable unroofing surgery) Continue Lipitor 20 mg a night. DC Cardene infusion to keep systolic blood pressure less than 160 Continue Procardia XL 90 mg. Continue metoprolol 25 mg by mouth every 8 hours, continue clonidine 0.2 mg by mouth every 8 hours On IV Lasix 40 mg every 12. Change to Lasix 20 mg po BID (Holding home medications of hydrochlorothiazide 25 mg daily, spironolactone 50 mg twice a day) Pulm: Acute hypoxemic respiratory failure-extubated 05/13/16 Likely underlying STU Bilateral pleural effusion Extubated 05/13/16. Use BiPAP when necessary and daily at bedtime Bronchodilator therapy continue easy Pap, a cappella and incentive spirometry Aggressive pulmonary toilet Chest x-ray today shows improving aeration in infiltrates GI: Hypoalbuminemia Constipation- resolved. Diet per speech recommendation-1800 ADA Protonix for GI prophylaxis Colace/Senokot twice a day for bowel regimen, : Chaudhry for accurate I's and O's in a critically ill patient Lasix as above, with scheduled potassium Endo: Diabetes mellitus type 2 Holding metformin Sliding-scale insulin Accu-Cheks to maintain euglycemia. Medium regimen every 6 hours Renal: Acute kidney injury - resolving Creatinine elevation, likely multifactorial, including prerenal from shock and contrast nephropathy Monitor BMP in a.m. Heme: Right cephalic superficial thrombus/right PT DVT Normocytic anemia CBC daily. Monitor trends. No active bleeding. Lovenox 150 mg subcutaneous twice a day ID: Aspiration pneumonia --continue Zosyn 3.375gm iv [id number] 10-12 days Pertinent cultures 05/07 - blood cultures 2 - negative 05/08 - sputum - negative 05/08 - urine - negative 05/08 - blood cultures - negative 05/13 - blood cx negative 05/13 - urine cx negative FEN: Hypernatremia Electrolyte protocol initiated. Replace as clinically indicated MSK: History of spinal stenosis/laminectomy/left total knee replacement and left ring finger amputation PT evaluate and treat Access - Utilize peripheral IV./Central line if indicated Prophylaxis - GI - Protonix - DVT - SCD/Lovenox therapeutic Critical Care: Level 3. [facility] Dr. Lopez to assume care in am PT OOB to chair daily Tahmina Kelsey MD May 15, 2016 10:48
[2016-05-15] MEDS: ACETAMINOPHEN 325 MG TAB PO PRN (11:55)
[2016-05-15] MEDS: LABETALOL HCL 100 MG/20 ML VIAL IV PUSH PRN (14:41)
[2016-05-15] MEDS ORDERED: FUROSEMIDE 20 MG TAB PO SCH (18:00)
[2016-05-15] MEDS ORDERED: AMIODARONE INJ 150 MG in DEXTROSE 5% IN WATER 100ML INJ 97 ML IV ONE ×2 (22:15)
[2016-05-15] MEDS ORDERED: ALBUMIN HUMAN 5% 25 GM/500 ML BOTTLE IV ONE (22:15)
[2016-05-15] MEDS: AMIODARONE INJ 450 MG in DEXTROSE 5% IN WATE(EXCEL) INJ 241 ML IV SCH ×2 (22:33)
[2016-05-16] VITALS (21 sets, daily range): BP systolic 88–123; BP diastolic 53–91; PULSE 84–138; RESP 23–34; TEMP 98–99.3; O2SAT 97–100
[2016-05-16] MEDS: INSULIN NovoLIN REGULAR SUPPLEMENTAL SCALE SQ SCH ×4 (00:12→17:53)
[2016-05-16] MEDS: PIPERACIL-TAZO 3.375 GM PREMIX 50 ML IV SCH ×2 (00:13→05:19)
[2016-05-16] MEDS: oxyCODONE HCL ORAL CONC 20 MG/ML SYRINGE PO SCH (04:00)
[2016-05-16] MEDS: CHLORHEXIDINE GLUCONATE 2 % 1 PACK (2 CLOTHS) TOP SCH (04:00)
[2016-05-16] MEDS: RESP: ALBUTEROL 2.5 MG/IPRATROPIUM 0.5 MG NEB (SCH) NEB ×4 (04:00→19:56)
[2016-05-16 04:22] LABS: AUTOMATED NEUTROPHIL # 16.6 TH/MM3 (1.8-7.7); BASOPHIL # 0.1 TH/MM3 (0-0.2); BASOPHIL % 0.4 % (0.0-2.0); EOSINOPHIL % 0.1 % (0.0-4.0); HEMATOCRIT 24.4 % (39.0-51.0); LYMPH % 11.3 % (9.0-44.0); LYMPHOCYTE # 2.3 TH/MM3 (1.0-4.8); MEAN CELL VOLUME 92.2 FL (80.0-100.0); MEAN CORPUSCULAR HEMOGLOBIN 29.4 PG (27.0-34.0); MEAN CORPUSCULAR HGB CONC 31.9 % (32.0-36.0); MONO % 7.7 % (0.0-8.0); NEUT % 80.5 % (16.0-70.0); PLATELET COUNT 298 TH/MM3 (150-450); RED BLOOD COUNT 2.64 MIL/MM3 (4.50-5.90); RED CELL DISTRIBUTION WIDTH 14.4 % (11.6-17.2); WHITE BLOOD COUNT 20.6 TH/MM3 (4.0-11.0)
[2016-05-16] MEDS: METOPROLOL TARTRATE 25 MG TAB PO SCH (04:32)
[2016-05-16] MEDS: cloNIDine HCL 0.2 MG TAB PO SCH (04:32)
[2016-05-16 04:58] LABS: HEMO FLAGS AUTO DIFF
[2016-05-16 05:00] LABS: ALKALINE PHOSPHATASE 52 U/L (45-117); ALT (GPT) 189 U/L (12-78); ANION GAP 16 MEQ/L (5-15); AST (GOT) 334 U/L (15-37); BICARBONATE 20.6 MEQ/L (21.0-32.0); BLOOD UREA NITROGEN 45 MG/DL (7-18); CHLORIDE 109 MEQ/L (98-107); GLOMERULAR FILTRATION RATE 32 ML/MIN (>89); MAGNESIUM 2.2 MG/DL (1.5-2.5); POTASSIUM 4.5 MEQ/L (3.5-5.1); SODIUM (NA) 146 MEQ/L (136-145)
[2016-05-16] MEDS: SENNOSIDES 8.6 MG TAB PO SCH ×2 (05:20→17:55)
[2016-05-16] MEDS: AMIODARONE INJ 450 MG in DEXTROSE 5% IN WATE(EXCEL) INJ 241 ML IV SCH ×2 (05:40)
--- NOTE | 2016-05-16 06:18 | RADRPT ---
EXAM DATE/TIME: 05/16/2016 04:40 [place] COMPARISON: CHEST SINGLE AP, May 15, 2016, 2:48. INDICATIONS : Respiratory distress. MEDICAL HISTORY : Hypertension. Congestive heart failure. Diabetes mellitus type II. SURGICAL HISTORY : None. ENCOUNTER: Subsequent ACUITY: 1 week PAIN SCORE: Non-responsive. LOCATION: Bilateral chest FINDINGS: Decreased bilateral perihilar infiltrates. Tiny left pleural effusion suspected, probably not signifi cantly changed. No pneumothorax. Mild cardiomegaly is stable. CONCLUSION: Stable to slightly improved as above. Low Johnson MD on May 16, 2016 at 6:16 Board Certified Radiologist. This report was verified electronically.
[2016-05-16] MEDS ORDERED: SODIUM CHLORID 0.9% 500 ML INJ 500 ML IV ONE (06:45)
[2016-05-16 06:57] LABS: BLOOD GAS BASE EXCESS -5.9 mmol/L (-2-2); BLOOD GAS HCO3 18 mmol/L (22-26); BLOOD GAS METHEMOGLOBIN 1.3 % (0-2); BLOOD GAS O2 HGB SATURATION 95 % (90-100); BLOOD GAS OXYGEN CONTENT 9.4 Vol % (12.0-20.0); BLOOD GAS PCO2 26 mmHg (38-42); BLOOD GAS PO2 107 mmHg (61-120); BLOOD GAS TOTAL HGB 6.9 G/DL (12.0-16.0); TEMP CORR TO 98.6
[2016-05-16 06:58] LABS: CRITICAL VALUE YES; DRAW SITE LT RADIAL; FIO2 35 %; NUMBER OF ARTERIAL PUNCTURES 2; OXYGEN DEVICE BiPAP; STAT YES; ULNAR PULSE PRESENT
[2016-05-16] MEDS ORDERED: VANCOMYCIN INJ 2,250 MG in SODIUM CHLORID 0.9% 500 ML INJ 500 ML IV ONE (07:00)
--- NOTE | 2016-05-16 07:00 | HHI.CCPN ---
Subjective Remarks/Hospital Course 61-year-old AA male. Date of admission 05/05/2016. Date of consultation 2016. Past medical history includes hypertensive heart disease, hypertension, diabetes mellitus type 2 and spinal stenosis. He presented to [facility] today with history of acute onset of diaphoresis, chest pain and syncope. Her documentation, Chest pain was 7 out of 10 without radiation. Later in the hospital physician, patient did have ST elevation anterior septal leads. I he had a cardiac catheterization in 2009 which revealed moderate coronary disease which documented 50-60% stenosis in the LAD diagonals 1 and 2. Recommended medical management at that time. Dr. Marcano was notified and proceed to the cardiac catheter lab. Patient sees heparin and one aspirin prior to cardiac catheterization. During heart catheterization,, patient became hypertensive, tachypneic, hypoxic and agitated including abdominal pain with nausea and vomiting. Patient was intubated by Dr. Simon and dispensed transferred to room 505a. Currently hemodynamic stable on a propofol drip. 05/06: Patient required additional sedation overnight. Was moving all 4 extremity spontaneously and strongly. Potassium is replaced overnight along with magnesium. This afternoon approximate 4 PM, patient went into a sinus bradycardia in the 40s. RN cannot locate pulse and possibly went into a PEA arrest. Patient received CPR for approximately 2 minutes. ROSC return immediately. Received 1 mg of epinephrine IV. Blood pressure was 240 systolic. Saturations were above 90% the entire time. Dr. Marcano was made aware. No new recommendations at this time. Electrolytes currently pending. Patient is currently hemodynamic stable and an arterial line/left radial has been placed 05/07: no improvement in delirium or mental status. spiking low grade fevers. 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 CT surgery consulted and declined to operate here: he will need referral once stabilized. fio2 requirements still high. CT chest also with evidence of bibasilar consolidation which may be aspiration pneumonitis vs. pneumonia now that we are 48h out from initial presentation and now spiking fevers. 05/08: delirium persists. continues to spike fevers. jolly cultured yesterday without results yet. holding sedation today. 05/09: delirium slightly improved. waking up on SAT, weakly following commands. cultures still NGTD. hypoxia slightly improved. 05/10: delirium improving. weakly following commands still. cultures still NGTD. fevers persist, although fever curve appears to be improving. hypoxia continues to improve. still remains very critically ill. 05/11: Tmax 99.9. Currently 99.1. Tolerating tube feeding. One bowel movement. Continues to have difficulty weaning ventilator. Subjective 05/12: Currently afebrile. Tolerating tube feeding. Positive BM. Increased FiO2 from 45-60%. +1 L. Arousable on sedation vacation and weakly follows commands. 05/13: Remains intubated, sedated. FiO2 now reduced to 45% (was 55% today am). Start weaning trials after starting Precedex. To control BP May use Cardene, given anomalous RCA 05/14: Extubated yesterday, remained on BiPAP overnight. Intermittently agitated. Following commands to me today, while on BiPAP. Remains on Cardene infusion for uncontrolled hypertension. Urine output 4.7 L in 24 hours 05/15: On 3 L nasal cannula. Fever trending down, breathing more comfortably. Able to communicate. Discussed with Dr. Marcano. Dr. Pendleton will be available tomorrow, will probably need transfer to [email or web address] for RCA unroofing 05/16: Acutely hypotensive overnight with tachycardia. MAP was 55 with greater than 130s. Received 3.5 L of normal saline bolus with improvement in blood pressure and heart rate. Lethargic on BiPAP. ABG pending, HB dropped from 10.9 to 7.8. No obvious source of bleeding. STAT 2U PRBC. STAT CT head and CT abd pelvis. R/O ICH or RP bleed. Patient received only 5mg Nicci at 2100 yesterday, no other sedation. Last dose of Lovenox was at 211, held now Objective Vital Signs Date Time Temp Pulse Resp B/P Pulse Ox O2 Delivery O2 Flow Rate FiO2 05/16/16 06:00 100 05/16/16 04:13 100 35 05/16/16 04:00 98.0 25 88/53 05/15/16 20:59 Nasal Cannula 3.00 Intake and Output 05/15/16 05/15/16 05/16/16 08:00 16:00 00:00 Intake Total 1091 ml 840 ml 1575 ml Output Total 1300 ml 2000 ml 650 ml Balance -209 ml -1160 ml 925 ml Result Diagram: 05/16/16 0358 05/16/16 0358 Other Results Microbiology Date/Time Procedure Status Source Growth 05/13/16 18:40 Urine Culture - Final Complete Urine Catheterized Urine NO GROWTH IN 48 HOURS. Imaging Last Impressions Chest X-Ray 05/12/16 0600 Signed Impressions: Service Date/Time: Thursday, May 12, 2016 03:30 - CONCLUSION: Worsening appearance of the chest. Ronald Tinsley MD Upper Extremity Ultrasound 05/10/16 0000 Signed Impressions: Service Date/Time: Tuesday, May 10, 2016 09:44 - CONCLUSION: Occlusive thrombus in the right cephalic vein. Otherwise negative Shahid Sin MD Lower Extremity Ultrasound 05/10/16 0000 Signed Impressions: Service Date/Time: Tuesday, May 10, 2016 09:20 - CONCLUSION: Occlusive thrombus right posterior tibial vein. Otherwise negative with negative left lower extremity Shahid Sin MD Head CT 05/08/16 0000 Signed Impressions: Service Date/Time: Sunday, May 08, 2016 17:42 - CONCLUSION: Intracranially negative. Ethmoid and left maxillary sinus disease includes air-fluid level left maxillary sinus. Shahid Sin MD CT Angiography 05/06/16 0000 Signed Impressions: Service Date/Time: Saturday, May 07, 2016 00:04 - CONCLUSION: 1. Lobar consolidation bilaterally in the lower lobes. 2. Negative for pulmonary embolism. Michael Colbert MD Objective Remarks GENERAL: 61-year-old AA male, morbidly obese, on BiPAP, very lethargic SKIN: Warm and dry. No rash HEAD: Atraumatic. Normocephalic. EYES: Pupils equal and round around 2 mm bilaterally and slightly reactive. No scleral icterus. No injection or drainage. ENT: No nasal bleeding or discharge. Mucous membranes pink. BiPAP mask limits exam NECK: Trachea midline. JVD difficult to assess due to body habitus. CARDIOVASCULAR: Distant due to body habitus. Regular rate and rhythm. S1, S2. Without murmur RESPIRATORY: Diminished breath sounds bilaterally due to body habitus. Breath sounds equal bilaterally. GASTROINTESTINAL: Abdomen obese, non-tender, protuberant. no guarding. MUSCULOSKELETAL: Extremities without significant peripheral edema. NEUROLOGICAL: Patient is lethargic, pupils are equal and reactive. Only sluggish withdrawal to pain Urinary Catheter: Yes Assessment to: Continue A/P Assessment and Plan Neuro/Psych: Acute toxic metabolic encephalopathy DC Ativan, Morphine and Roxycodone due to acute change in mental status CT of the head to rule out intracranial hemorrhage as the patient is on therapeutic Lovenox-protamine 75 mg IV stat ordered Off Seroquel and Haldol due to nonsustained V. tach Head CT 05/08: negative acute. EEG 05/12 revealed generalized slowing right greater than left. No epileptiform activity. CV: Acute hypotension and tachycardia most likely secondary to blood loss anemia Aberrant RCA off LCC Nonsustained V. tach single episode Diastolic heart failure Coronary artery disease Nonischemic cardiomyopathy secondary to hypertensive heart disease Hypertensive emergency Patient is volume responsive, received 3.5 L normal saline 2 units PRBC and protamine ordered CT abdomen and pelvis and CT head pending Status post cardiac catheterization by Dr. Moy. No intervention performed. Known coronary artery artery disease to the first and second diagonals the LAD. Aberrant RCA off left coronary cups. Transfer to fo RCA unroofing once clinically stable Aspirin 81 mg daily-hold due to anemia. (Plavix DC d 05/15/[address] Marcano in anticipation of probable unroofing surgery) Hold Lipitor 20 mg a night. Hold Procardia XL 90 mg,metoprolol 25 mg by mouth every 8 hours, clonidine 0.2 mg by mouth every 8 hours ALL held due to hypotension shock Hold Lasix 20 mg po BID (Holding home medications of hydrochlorothiazide 25 mg daily, spironolactone 50 mg twice a day) Pulm: Acute hypoxemic respiratory failure-extubated 05/13/16 Likely underlying STU Bilateral pleural effusion Extubated 05/13/16. On BIPAP If mental status not improving will need intubations for airway protection Bronchodilator therapy continue easy Pap, a cappella and incentive spirometry Aggressive pulmonary toilet Chest x-ray shows improving aeration in infiltrates GI: Hypoalbuminemia Constipation- resolved. NPO due to acute change in mental status Continue Protonix for GI prophylaxis Colace/Senokot twice a day for bowel regimen, : Chaudhry for accurate I's and O's in a critically ill patient Lasix as above, with scheduled potassium Endo: Diabetes mellitus type 2 Holding metformin Sliding-scale insulin Accu-Cheks to maintain euglycemia. Medium regimen every 6 hours Renal: Acute kidney injury Acute kidney injury most likely secondary to ATN/hypotension Continue aggressive hydration, received total 4 L boluses and continue maintenance fluid at 75 ml per hour Creatinine elevation, likely multifactorial, including prerenal from shock and contrast nephropathy Monitor CMP Heme: Acute blood loss anemia with shock Right cephalic superficial thrombus/right PT DVT Normocytic anemia Transfuse 2 units PRBC stat Attempt reversal of Lovenox with 75 mg IV protamine slow infusion (D/W with Dr. grimes) Discontinue therapeutic Lovenox. Consult hematology for recommendations CBC daily. Monitor trends. No active bleeding. Lovenox 150 mg subcutaneous twice a day-DCd 05/16/16 ID: Aspiration pneumonia --DC Zosyn and start cefepime and Flagyl on 05/16/16. A single dose of vancomycin given --Repeat jolly cultures. No fever today Pertinent cultures 05/07 - blood cultures 2 - negative 05/08 - sputum - negative 05/08 - urine - negative 05/08 - blood cultures - negative 05/13 - blood cx negative 05/13 - urine cx negative FEN: Electrolyte protocol. Replace as clinically indicated MSK: History of spinal stenosis/laminectomy/left total knee replacement and left ring finger amputation PT evaluate and treat Access - Utilize peripheral IV/Central line if indicated Prophylaxis - GI - Protonix - DVT -DC Lovenox. Consider IVC filter. Await hematology recommendations Critical Care: CCT 90 MIN Tahmina Kelsey MD May 16, 2016 07:00
[2016-05-16 07:05] LABS: BANDS 6 % (0-6); METAMYELOCYTES 1 % (0-1); MYELOCYTES 1 % (0-0); NEUTROPHIL # MANUAL DIFF 18.3 TH/MM3 (1.8-7.7); PLATELET ESTIMATE SMEAR NORMAL (NORMAL); PLATELET MORPHOLOGY NORMAL (NORMAL); POLYS (SEG NEUTROPHILS) 81 % (16-70); SCAN/DIFF FINAL DIFF MANUAL; WBC DIFF SAMPLE 100
[2016-05-16 07:07] LABS: KERATOCYTES OCC (NORMAL)
[2016-05-16] MEDS ORDERED: PROTAMINE SULFATE 50 MG/5 ML VIAL IV PUSH STA (07:18)
--- NOTE | 2016-05-16 08:00 | PD.ID.CON ---
History of Present Illness Service Infectious disease Consult Requested By Dr. Tahmina Kelsey Reason for Consult Evaluation and management of possible sepsis. Primary Care Physician Bobby Olivera MD Diagnoses: History of Present Illness Most of the history was obtained by review of medical records. Mr. Short is a 61-year-old male who was admitted on May 05, 2016. Patient's past medical history significant for hypertensive heart disease, hypertension, type 2 diabetes and spinal stenosis. Patient presented to [facility] on the day of admission with history of acute onset of diaphoresis chest pain and syncope. Due to ST elevation in the anterior septal leads Dr. Marcano was notified and patient was taken for cardiac catheter. Patient received heparin and one aspirin prior to cardiac catheterization. During cardiac catheterization patient became hypertensive, tachypnea, hypoxic and agitated and ordered abdominal pain with nausea and vomiting. Patient seen by critical care Dr. Simon and transferred to [facility]. On May 06, 2016 patient went into sinus bradycardia with heart rate in the 40s and RN could not locate the pulse and there was possible PEA arrest. Patient received CPR for approximately 2 minutes with return of pulse spontaneously. During ICU stay patient's hemodynamics remained stable. Patient continued to be delirious and on May 07 started spiking low-grade fevers. 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 Cardiothoracic surgery was consulted and it was determined that patient should be transferred to [facility] after being stabilized. CT chest also showed evidence of bibasilar consolidation concerning for aspiration pneumonitis. Hsu cultures were obtained and patient started on Zosyn IV for aspiration pneumonia. Patient had high-grade fevers on May 13. Vision is delirious and there was concern for seizures but EEG was not suggestive of that. Due to ongoing delirium patient is currently on BiPAP. On May 16 patient became acutely hypotensive with tachycardia. Patient received 3.5 L of normal saline bolus with improvement in blood pressure and heart rate. There is also a drop in his hemoglobin noted with no obvious source of bleeding. Patient received 2 units PRBC. Intensive as ordered a stat CT of the head as well as CT abdomen pelvis to rule out intracranial bleed as well as retroperitoneal bleed. Lovenox and sedatives are on hold now. Infectious disease is consulted for evaluation and management of possible sepsis , aspiration pneumonia. Review of Systems ROS Limitations: Altered Mental Status (on BiPAP) Past Family Social History Allergies: Coded Allergies: Penicillin (Verified Allergy, Mild, "I GO CRAZY", 09/01/15) Past Medical History Hypertension Coronary artery disease Nonischemic cardiopathy secondary to hypertensive heart disease Diabetes mellitus type 2 Past Surgical History Laminectomy Left ring finger amputation Left total knee arthroplasty Cardiac catheterization 2009 Reported Medications Reported Meds & Active Scripts Active Reported Plavix (Clopidogrel Bisulfate) 75 Mg Tab 75 Mg PO DAILY Metformin (Metformin HCl) 500 Mg Tab 500 Mg PO TIDPC With meals Spironolactone 50 Mg Tab Unknown Dose PO BIDPC Hydrochlorothiazide 25 Mg Tab 25 Mg PO DAILY Norvasc (Amlodipine Besylate) 5 Mg Tab Unknown Dose PO DAILY Active Ordered Medications Current Medications Medications (Trade) Dose Ordered Sig/Isabelle Route Start Time Stop Time Status Last Admin (NS Flush) 2 ml UNSCH PRN IV FLUSH 05/05/16 17:15 (NS Flush) 2 ml BID IV FLUSH 05/05/16 21:00 05/16/16 09:44 (Tylenol) 650 mg Q6H PRN PO 05/05/16 17:15 05/15/16 11:55 (Tears Naturale Opth Soln) 1 drop TID EACH EYE 05/05/16 18:00 05/16/16 09:44 (Zofran Inj) 4 mg Q6H PRN IV 05/05/16 17:15 (Colace) 100 mg BID PO 05/05/16 21:00 05/15/16 20:42 Miscellaneous Information 1 Q361D XX 05/05/16 17:15 05/05/16 17:15 (Chlorhexidine 2% Cloth) Taper DAILY@04 TOP 05/06/16 04:00 05/02/17 03:59 05/15/16 03:41 Chlorhexidine Gluconate 3 pack 3 pack UNSCH PRN TOP 05/05/16 17:15 Potassium Chloride 100 ml @ 50 mls/hr Q2H PRN IV 05/05/16 17:15 05/15/16 11:54 (KCl 20 Meq Premix Inj) 100 ml @ 50 mls/hr Q2H PRN IV 05/05/16 17:15 05/06/16 09:00 Potassium Chloride 40 meq 40 meq UNSCH PRN PO/TUBE 05/05/16 17:15 05/13/16 04:42 Potassium Chloride 100 ml @ 25 mls/hr UNSCH PRN IV 05/05/16 17:15 Potassium Chloride 100 ml @ 50 mls/hr Q2H PRN IV 05/05/16 17:15 05/14/16 09:19 (Magnesium Sulfate Inj/NS Inj) 100 ml @ 50 mls/hr UNSCH PRN IV 05/05/16 17:15 Magnesium Oxide 800 mg 800 mg UNSCH PRN PO 05/05/16 17:15 05/06/16 05:25 (Magnesium Sulfate Inj/NS Inj) 100 ml @ 50 mls/hr UNSCH PRN IV 05/05/16 17:15 Potassium Phosphate 2000 mg 2,000 mg Q4H PRN PO 05/05/16 17:15 (Sodium Phosphate Inj/NS 250 ml Inj) 250 ml @ 42 mls/hr UNSCH PRN IV 05/05/16 17:15 (KCl 40 Meq/30 ml Liq) 40 meq UNSCH PRN PO/TUBE 05/05/16 17:15 Potassium Phosphate 2000 mg 2,000 mg UNSCH PRN PO/TUBE 05/05/16 17:15 (Potassium Phosphate Inj/NS 250 ml Inj) 260 ml @ 42 mls/hr UNSCH PRN IV 05/05/16 17:15 (Glucagon Inj) 1 mg UNSCH PRN OTHER 05/05/16 17:15 (Aspirin Chew) 81 mg DAILY CHEW 05/06/16 09:00 Hold 05/15/16 08:30 (Lipitor) 20 mg DAILY PO 05/06/16 09:00 Hold 05/15/16 08:32 (Senokot) 17.2 mg Q12H PO 05/06/16 18:00 05/16/16 05:20 (Trandate Inj) 20 mg Q2HR PRN IV PUSH 05/06/16 23:30 05/15/16 14:41 (D50w (Vial) Inj) 25 ml UNSCH PRN IV PUSH 05/08/16 21:00 (NovoLIN R SUPPLEMENTAL SCALE) 1 Q6HR SQ 05/09/16 00:00 05/16/16 05:20 (Pill Splitter) 1 ea UNSCH PRN OTHER 05/11/16 15:15 (Apresoline Inj) 20 mg Q4H PRN IV PUSH 05/13/16 16:15 (Lopressor) 25 mg Q8HR PO 05/13/16 22:00 Hold 05/15/16 14:44 (Ofirmev Inj) 1,000 mg Q6H PRN IV 05/13/16 18:30 05/13/16 19:23 (Procardia Xl) 90 mg DAILY PO 05/14/16 09:00 Hold 05/15/16 08:30 Furosemide 20 mg 20 mg BID@09,18 PO 05/15/16 18:00 Hold 05/15/16 17:22 Sodium Chloride 1,000 ml @ 75 mls/hr [id number] IV 05/16/16 07:00 05/16/16 09:45 Cefepime HCl 2000 mg/Sodium Chloride 100 ml @ 200 mls/hr Q12H IV 05/16/16 08:00 05/16/16 09:43 (Flagyl 500 Mg Inj) 100 ml @ 100 mls/hr Q8H IV 05/16/16 08:00 05/16/16 09:45 Family History Mother and father both with hypertension. 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 No history of alcohol tobacco or IV drug use. Physical Exam Vital Signs Vital Signs Date Time Temp Pulse Resp B/P Pulse Ox O2 Delivery O2 Flow Rate FiO2 05/16/16 06:00 100 05/16/16 04:13 100 35 05/16/16 04:00 98.0 101 25 88/53 100 05/16/16 04:00 101 05/16/16 02:00 102 05/16/16 00:46 97 35 05/16/16 00:00 138 05/16/16 00:00 98.0 138 34 88/58 97 05/15/16 22:05 99 35 05/15/16 22:00 138 05/15/16 20:59 95 Nasal Cannula 3.00 05/15/16 20:00 135 05/15/16 20:00 98.4 135 32 92/52 100 05/15/16 19:00 Nasal Cannula 3.00 35 05/15/16 18:00 90 05/15/16 16:00 116 05/15/16 16:00 98.6 116 27 173/83 95 05/15/16 14:00 117 05/15/16 12:00 113 05/15/16 12:00 98.8 113 22 163/96 100 05/15/16 10:00 80 05/15/16 08:20 94 Nasal Cannula 3.00 Physical Exam GENERAL: Obese AAM patient, in no apparent distress. SKIN: No rashes, ecchymoses or lesions. Cool and dry. HEAD: Atraumatic. Normocephalic. No temporal or scalp tenderness. EYES: Pupils equal round and reactive. Extraocular motions intact. No scleral icterus. No injection or drainage. ENT: Large neck, no LNpathy. BiPAP mask on. NECK: Trachea midline. Supple, nontender, no meningeal signs. CARDIOVASCULAR: HS audible. RESPIRATORY: Breath sounds equal bilaterally decreased in the bases. GASTROINTESTINAL: Abdomen soft, non-tender, nondistended. Obese MUSCULOSKELETAL: Extremities without clubbing, cyanosis, or edema. NEUROLOGICAL: Lethargic, Could not be aroused. Psych: could not be assessed IV line sites with no e/o infection. Laboratory Laboratory Tests Test 05/15/16 05/16/16 05/16/16 19:10 03:58 06:47 Potassium Level 4.2 4.5 White Blood Count 20.6 Red Blood Count 2.64 Hemoglobin 7.8 Hematocrit 24.4 Mean Corpuscular Volume 92.2 Mean Corpuscular Hemoglobin 29.4 Mean Corpuscular Hemoglobin 31.9 Concent Red Cell Distribution Width 14.4 Platelet Count 298 Mean Platelet Volume 8.9 Neutrophils (%) (Auto) 80.5 Lymphocytes (%) (Auto) 11.3 Monocytes (%) (Auto) 7.7 Eosinophils (%) (Auto) 0.1 Basophils (%) (Auto) 0.4 Neutrophils # (Auto) 16.6 Lymphocytes # (Auto) 2.3 Monocytes # (Auto) 1.6 Eosinophils # (Auto) 0.0 Basophils # (Auto) 0.1 CBC Comment AUTO DIFF Differential Total Cells 100 Counted Neutrophils % (Manual) 81 Band Neutrophils % 6 Lymphocytes % 6 Monocytes % 5 Neutrophils # (Manual) 18.3 Metamyelocytes 1 Myelocytes 1 Differential Comment FINAL DIFF MANUAL Platelet Estimate NORMAL Platelet Morphology Comment NORMAL Keratocytes OCC Sodium Level 146 Chloride Level 109 Carbon Dioxide Level 20.6 Anion Gap 16 Blood Urea Nitrogen 45 Creatinine 2.48 Estimat Glomerular Filtration 32 Rate Random Glucose 199 Calcium Level 8.1 Magnesium Level 2.2 Total Bilirubin 1.0 Aspartate Amino Transf 334 (AST/SGOT) Alanine Aminotransferase 189 (ALT/SGPT) Alkaline Phosphatase 52 Total Protein 5.7 Albumin 2.5 Blood Gas Puncture Site LT RADIAL Blood Gas Patient Temperature 98.6 Blood Gas HCO3 18 Blood Gas Base Excess -5.9 Blood Gas Oxygen Saturation 95 Arterial Blood pH 7.44 Arterial Blood Partial 26 Pressure CO2 Arterial Blood Partial 107 Pressure O2 Arterial Blood Oxygen Content 9.4 Arterial Blood 2.0 Carboxyhemoglobin Arterial Blood Methemoglobin 1.3 Blood Gas Hemoglobin 6.9 Oxygen Delivery Device BiPAP Blood Gas Ventilator Setting 12/5 Blood Gas Inspired Oxygen 35 Date/Time Procedure Status Source Growth 05/13/16 20:57 Aerobic Blood Culture - Preliminary Resulted Blood Peripheral NO GROWTH IN 2 DAYS 05/13/16 20:57 Anaerobic Blood Culture - Preliminary Resulted Blood Peripheral NO GROWTH IN 2 DAYS 05/13/16 18:40 Urine Culture - Final Complete Urine Catheterized Urine NO GROWTH IN 48 HOURS. Result Diagram: 05/16/16 0358 05/16/16 0358 Imaging Last Impressions Chest X-Ray 05/16/16 0600 Signed Impressions: Service Date/Time: Monday, May 16, 2016 04:40 - CONCLUSION: Stable to slightly improved as above. Low Johnson MD Head CT 05/16/16 0000 Signed Impressions: Service Date/Time: Monday, May 16, 2016 08:30 - CONCLUSION: Suspected bilateral basal ganglia calcifications are unchanged. No evidence of hemorrhage, edema, mass or mass effect. Stephen Quintanilla MD Upper Extremity Ultrasound 05/10/16 0000 Signed Impressions: Service Date/Time: Tuesday, May 10, 2016 09:44 - CONCLUSION: Occlusive thrombus in the right cephalic vein. Otherwise negative Shahid Sin MD Lower Extremity Ultrasound 05/10/16 0000 Signed Impressions: Service Date/Time: Tuesday, May 10, 2016 09:20 - CONCLUSION: Occlusive thrombus right posterior tibial vein. Otherwise negative with negative left lower extremity Shahid Sin MD CT Angiography 05/06/16 0000 Signed Impressions: Service Date/Time: Saturday, May 07, 2016 00:04 - CONCLUSION: 1. Lobar consolidation bilaterally in the lower lobes. 2. Negative for pulmonary embolism. Michael Colbert MD Assessment and Plan Assessment and Plan SIRS possible Sepsis (fever, tachycardia, hypotension). Given CT findings and clinical picture Retroperitoneal hematoma with reactive changes and hemorrhagic shock related hypotension are more likely. Aspiration Pneumonia Acute metabolic encephalopathy Acute resp failure on BiPAP, component of STU Acute kidney injury: prerenal from hemodynamic changes, chronic HTN related. DM2 uncontrolled: stress as additional factor. CAD non ischemic cardiomyopathy Anemia: acute due to Retroperitoneal bleed. Receiving blood transfusions. Recs: Continue Cefepime IV Continue Flagyl IV for now Follow cultures Follow clinically CT A/P images reviewed by me. d/w Tracy Portillo MD May 16, 2016 08:00
[2016-05-16] MEDS: DOCUSATE SODIUM 100 MG CAP PO SCH ×2 (09:00→21:00)
--- NOTE | 2016-05-16 09:06 | RADRPT ---
EXAM DATE/TIME: 05/16/2016 08:30 [facility] COMPARISON: Prior study of 05/08/16 used for comparison. INDICATIONS : Altered mental status. RADIATION DOSE: 46.69 CTDIvol (mGy) MEDICAL HISTORY : Cardiovascular disease. Hypertension. Diabetes mellitus type 2. SURGICAL HISTORY : None. ENCOUNTER: Subsequent ACUITY: 1 week PAIN SCALE: Non-responsive LOCATION: cranial TECHNIQUE: Multiple contiguous axial images were obtained of the head. Using automated exposure control and adj ustment of the mA and/or kV according to patient size, radiation dose was kept as low as reasonably a chievable to obtain optimal diagnostic quality images. FINDINGS: Noncontrast head CT demonstrates that there are subtle areas of higher density in the basal ganglia bilaterally which I suspect are calcifications. They were also present on 05/08. No subarachnoid or subdural hematoma is identified. There is no mass or mass effect. The ventricles are nor mal in size. There is some fluid in both mastoid air cells. The paranasal sinuses are clear. CONCLUSION: Suspected bilateral basal ganglia calcifications are unchanged. No evidence of hemorrhage, edema, ma ss or mass effect. Stephen Quintanilla MD on May 16, 2016 at 8:47 Board Certified Radiologist. This report was verified electronically.
--- NOTE | 2016-05-16 09:22 | PD.CARD.PN ---
Subjective Subjective Remarks Events over night noted, minimally responsive, seen in CT scan Objective Medications Current Medications Medications (Trade) Dose Ordered Sig/Isabelle Route Start Time Stop Time Status Last Admin (NS Flush) 2 ml UNSCH PRN IV FLUSH 05/05/16 17:15 (NS Flush) 2 ml BID IV FLUSH 05/05/16 21:00 05/15/16 20:42 (Tylenol) 650 mg Q6H PRN PO 05/05/16 17:15 05/15/16 11:55 (Tears Naturale Opth Soln) 1 drop TID EACH EYE 05/05/16 18:00 05/15/16 18:00 (Zofran Inj) 4 mg Q6H PRN IV 05/05/16 17:15 (Colace) 100 mg BID PO 05/05/16 21:00 05/15/16 20:42 Miscellaneous Information 1 Q361D XX 05/05/16 17:15 05/05/16 17:15 (Chlorhexidine 2% Cloth) Taper DAILY@04 TOP 05/06/16 04:00 05/02/17 03:59 05/15/16 03:41 Chlorhexidine Gluconate 3 pack 3 pack UNSCH PRN TOP 05/05/16 17:15 Potassium Chloride 100 ml @ 50 mls/hr Q2H PRN IV 05/05/16 17:15 05/15/16 11:54 (KCl 20 Meq Premix Inj) 100 ml @ 50 mls/hr Q2H PRN IV 05/05/16 17:15 05/06/16 09:00 Potassium Chloride 40 meq 40 meq UNSCH PRN PO/TUBE 05/05/16 17:15 05/13/16 04:42 Potassium Chloride 100 ml @ 25 mls/hr UNSCH PRN IV 05/05/16 17:15 Potassium Chloride 100 ml @ 50 mls/hr Q2H PRN IV 05/05/16 17:15 05/14/16 09:19 (Magnesium Sulfate Inj/NS Inj) 100 ml @ 50 mls/hr UNSCH PRN IV 05/05/16 17:15 Magnesium Oxide 800 mg 800 mg UNSCH PRN PO 05/05/16 17:15 05/06/16 05:25 (Magnesium Sulfate Inj/NS Inj) 100 ml @ 50 mls/hr UNSCH PRN IV 05/05/16 17:15 Potassium Phosphate 2000 mg 2,000 mg Q4H PRN PO 05/05/16 17:15 (Sodium Phosphate Inj/NS 250 ml Inj) 250 ml @ 42 mls/hr UNSCH PRN IV 05/05/16 17:15 (KCl 40 Meq/30 ml Liq) 40 meq UNSCH PRN PO/TUBE 05/05/16 17:15 Potassium Phosphate 2000 mg 2,000 mg UNSCH PRN PO/TUBE 05/05/16 17:15 (Potassium Phosphate Inj/NS 250 ml Inj) 260 ml @ 42 mls/hr UNSCH PRN IV 05/05/16 17:15 (Glucagon Inj) 1 mg UNSCH PRN OTHER 05/05/16 17:15 (Aspirin Chew) 81 mg DAILY CHEW 05/06/16 09:00 Hold 05/15/16 08:30 (Lipitor) 20 mg DAILY PO 05/06/16 09:00 Hold 05/15/16 08:32 (Senokot) 17.2 mg Q12H PO 05/06/16 18:00 05/16/16 05:20 (Trandate Inj) 20 mg Q2HR PRN IV PUSH 05/06/16 23:30 05/15/16 14:41 (D50w (Vial) Inj) 25 ml UNSCH PRN IV PUSH 05/08/16 21:00 (NovoLIN R SUPPLEMENTAL SCALE) 1 Q6HR SQ 05/09/16 00:00 05/16/16 05:20 (Pill Splitter) 1 ea UNSCH PRN OTHER 05/11/16 15:15 (Apresoline Inj) 20 mg Q4H PRN IV PUSH 05/13/16 16:15 (Lopressor) 25 mg Q8HR PO 05/13/16 22:00 Hold 05/15/16 14:44 (Ofirmev Inj) 1,000 mg Q6H PRN IV 05/13/16 18:30 05/13/16 19:23 (Procardia Xl) 90 mg DAILY PO 05/14/16 09:00 Hold 05/15/16 08:30 Furosemide 20 mg 20 mg BID@09,18 PO 05/15/16 18:00 Hold 05/15/16 17:22 Sodium Chloride 1,000 ml @ 75 mls/hr [id number] IV 05/16/16 07:00 Cefepime HCl 2000 mg/Sodium Chloride 100 ml @ 200 mls/hr Q12H IV 05/16/16 08:00 (Flagyl 500 Mg Inj) 100 ml @ 100 mls/hr Q8H IV 05/16/16 08:00 Vital Signs / I&O Vital Signs Date Time Temp Pulse Resp B/P Pulse Ox O2 Delivery O2 Flow Rate FiO2 05/16/16 06:00 100 05/16/16 04:13 100 35 05/16/16 04:00 98.0 101 25 88/53 100 05/16/16 04:00 101 05/16/16 02:00 102 05/16/16 00:46 97 35 05/16/16 00:00 138 05/16/16 00:00 98.0 138 34 88/58 97 05/15/16 22:05 99 35 05/15/16 22:00 138 05/15/16 20:59 95 Nasal Cannula 3.00 05/15/16 20:00 135 05/15/16 20:00 98.4 135 32 92/52 100 05/15/16 19:00 Nasal Cannula 3.00 35 05/15/16 18:00 90 05/15/16 16:00 116 05/15/16 16:00 98.6 116 27 173/83 95 05/15/16 14:00 117 05/15/16 12:00 113 05/15/16 12:00 98.8 113 22 163/96 100 05/15/16 10:00 80 I/O 05/15/16 05/15/16 05/15/16 05/16/16 05/16/16 05/16/16 07:00 15:00 23:00 07:00 15:00 23:00 Intake Total 1091 ml 840 ml 1575 ml 2300 ml Output Total 1300 ml 2000 ml 650 ml 50 ml Balance -209 ml -1160 ml 925 ml 2250 ml Intake Oral 360 ml 240 ml 480 ml IV Total 731 ml 600 ml 1095 ml 2300 ml Output Urine Total 1300 ml 2000 ml 650 ml 50 ml Stool Total 0 ml 0 ml # Bowel Movements 0 0 Physical Exam GENERAL: Minimally responsive SKIN: Warm and dry. HEAD: Atraumatic. Normocephalic. EYES: Pupils equal and round. No scleral icterus. No injection or drainage. ENT: No nasal bleeding or discharge. Mucous membranes pink and moist. NECK: Trachea midline. No JVD. CARDIOVASCULAR: Regular rhythm. Tachycardic RESPIRATORY: No accessory muscle use. Decreased breath sounds bilaterally GASTROINTESTINAL: Abdomen soft, non-tender, nondistended. Hepatic and splenic margins not palpable. MUSCULOSKELETAL: Extremities without clubbing, cyanosis, or edema. No obvious deformities. Right radial no hematoma. Right femoral no hematoma/bruit noted NEUROLOGICAL: Lethargic Laboratory Laboratory Tests Test 05/15/16 05/16/16 05/16/16 05/16/16 19:10 03:58 06:47 07:40 Potassium Level 4.2 MEQ/L 4.5 MEQ/L White Blood Count 20.6 TH/MM3 Red Blood Count 2.64 MIL/MM3 Hemoglobin 7.8 GM/DL Hematocrit 24.4 % Mean Corpuscular Volume 92.2 FL Mean Corpuscular Hemoglobin 29.4 PG Mean Corpuscular Hemoglobin 31.9 % Concent Red Cell Distribution Width 14.4 % Platelet Count 298 TH/MM3 Mean Platelet Volume 8.9 FL Neutrophils (%) (Auto) 80.5 % Lymphocytes (%) (Auto) 11.3 % Monocytes (%) (Auto) 7.7 % Eosinophils (%) (Auto) 0.1 % Basophils (%) (Auto) 0.4 % Neutrophils # (Auto) 16.6 TH/MM3 Lymphocytes # (Auto) 2.3 TH/MM3 Monocytes # (Auto) 1.6 TH/MM3 Eosinophils # (Auto) 0.0 TH/MM3 Basophils # (Auto) 0.1 TH/MM3 CBC Comment AUTO DIFF Differential Total Cells 100 Counted Neutrophils % (Manual) 81 % Band Neutrophils % 6 % Lymphocytes % 6 % Monocytes % 5 % Neutrophils # (Manual) 18.3 TH/MM3 Metamyelocytes 1 % Myelocytes 1 % Differential Comment FINAL DIFF MANUAL Platelet Estimate NORMAL Platelet Morphology Comment NORMAL Keratocytes OCC Sodium Level 146 MEQ/L Chloride Level 109 MEQ/L Carbon Dioxide Level 20.6 MEQ/L Anion Gap 16 MEQ/L Blood Urea Nitrogen 45 MG/DL Creatinine 2.48 MG/DL Estimat Glomerular Filtration 32 ML/MIN Rate Random Glucose 199 MG/DL Calcium Level 8.1 MG/DL Magnesium Level 2.2 MG/DL Total Bilirubin 1.0 MG/DL Aspartate Amino Transf 334 U/L (AST/SGOT) Alanine Aminotransferase 189 U/L (ALT/SGPT) Alkaline Phosphatase 52 U/L Total Protein 5.7 GM/DL Albumin 2.5 GM/DL Blood Gas Puncture Site LT RADIAL Blood Gas Patient Temperature 98.6 Blood Gas HCO3 18 mmol/L Blood Gas Base Excess -5.9 mmol/L Blood Gas Oxygen Saturation 95 % Arterial Blood pH 7.44 Arterial Blood Partial 26 mmHg Pressure CO2 Arterial Blood Partial 107 mmHg Pressure O2 Arterial Blood Oxygen Content 9.4 Vol % Arterial Blood 2.0 % Carboxyhemoglobin Arterial Blood Methemoglobin 1.3 % Blood Gas Hemoglobin 6.9 G/DL Oxygen Delivery Device BiPAP Blood Gas Ventilator Setting 12/5 Blood Gas Inspired Oxygen 35 % Blood Type B POSITIVE Test 05/16/16 08:10 Blood Type B POSITIVE Assessment and Plan Problem List: (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 (2) Hypertensive emergency (3) Acute hypoxemic respiratory failure (4) Diabetes mellitus (5) CAD (coronary artery disease) (6) NSVT (nonsustained ventricular tachycardia) Assessment and Plan 1) Cardiac cath showing mild to moderate CAD 2) Anomalous RCA off Left Coronary Cusp, will need CTA of coronaries to define pathway of RCA to make sure not intra-arterial (between PA and Aorta) especially with chest pain/pre-syncopal episodes... but CT done shows that RCA most likely takes an intra-arterial route, discussed with radiology 3) Blood pressure elevated throughout hospital course, Norvasc changed to Procardia...try to keep SBP lowered due to intra-arterial anomalous RCA route 4) Occlusive thrombus noted in right PT and right cephalic veins 5) NSVT, potassium noted to be low, replaced 6) Will discuss with CT Surgery about possible transfer for unroofing of RCA once stable 7) Acute blood loss, CT not officially read, but appears to be a left retro- peritoneal bleed, Lovenox held Maurizio Marcano DO May 16, 2016 09:22
--- NOTE | 2016-05-16 09:33 | RADRPT ---
EXAM DATE/TIME: 05/16/2016 08:39 [facility] COMPARISON: No previous studies available for comparison. INDICATIONS : Tachycardia, chest pain, anticoagulant hematocrit drop. ORAL CONTRAST: No oral contrast ingested. RADIATION DOSE: 29.95 CTDIvol (mGy) MEDICAL HISTORY : Cardiovascular disease. Diabetes mellitus type 2. Hypertension. SURGICAL HISTORY : None. ENCOUNTER: Initial ACUITY: 1 day PAIN SCALE: Non-responsive LOCATION: Abdomen. TECHNIQUE: Volumetric scanning of the abdomen and pelvis was performed. Using automated exposure control and ad justment of the mA and/or kV according to patient size, radiation dose was kept as low as reasonably achievable to obtain optimal diagnostic quality images. FINDINGS: CT scan of the abdomen and pelvis was performed without contrast. In the left retroperitoneum, there is a large multi-loculated retroperitoneal hemorrhage. The area measures 9.1 x 9.3 cm across. It a nteriorly displaces the left kidney. It has mixed densities suggesting significant hemorrhage mostly lateral to the psoas muscle. There is some increased size to the right psoas muscle with mixed dens ity suggesting a right psoas hemorrhage as well. In the region of the left external iliac artery, there is a small 2 cm focal hemorrhagic collection a s the vessel enters the pelvis. I don't believe this communicates with the rest of the large left re troperitoneal hemorrhage. There is a mass within the mesentery with mixed density. I suspect that it is a large interperitonea l hemorrhage. That area measures 10.7 x 3.3 cm across. The patient had the catheterization but I see of the internal iliacs and abdominal aorta, there is no evidence of any surrounding hemorrhage. There is some fluid around the liver. The liver, gallbladder, right kidney and adrenal glands are un remarkable. The pancreas is unremarkable. Bone windows are negative. There is some atelectasis in the left lower lobe. The heart is enlarged. CONCLUSION: There are large areas of hemorrhage including the left retroperitoneum and psoas muscle, within the m esentery and a smaller area in the right psoas muscle. They don't appear to be related to the abdomi nal aorta or the internal iliac arteries. There is a small focal collection hemorrhage adjacent to t he left external iliac artery as it enters the pelvis, but I don't believe that is related to the lar ge amount of hemorrhage seen elsewhere. The areas of hemorrhage are large and multi-focal. Stehpen Quintanilla MD on May 16, 2016 at 9:12 Board Certified Radiologist. This report was verified electronically.
[2016-05-16] MEDS: CEFEPIME INJ 2,000 MG in SODIUM CHLORIDE 0.9% INJ 100 ML IV SCH ×2 (09:43→21:00)
[2016-05-16] MEDS: SODIUM CHLORIDE 0.9% FLUSH 5 ML FLUSH IV FLUSH SCH ×2 (09:44→21:01)
[2016-05-16] MEDS: ARTIFICIAL TEARS OPTH SOLN 15 ML BTL EACH EYE SCH ×3 (09:44→17:56)
[2016-05-16] MEDS: metroNIDAZOLE 500 MG INJ 100 ML IV SCH ×2 (09:45→16:26)
[2016-05-16] MEDS: SODIUM CHLOR 0.9% 1000 ML INJ 1,000 ML IV SCH ×2 (09:45→21:03)
[2016-05-16] MEDS ORDERED: FLUMAZENIL 0.5 MG/5 ML VIAL IV PUSH ONE (10:30)
[2016-05-16] MEDS ORDERED: NALOXONE HCL 0.4 MG/ML AMP IV PUSH ONE (10:30)
--- NOTE | 2016-05-16 15:18 | MG ---
cc: MIHAELA BATRES M.D. Lab No: [id number] Date: 05/16/2016 Age: Sex: M TECHNIQUE 17-channel EEG. DESCRIPTION The background rhythm shows generalized slowing in the delta frequency at roughly 3-5 Hz. The amplitude is roughly 10-20 microvolts. There are no lateralizing features seen. There are no epileptiform discharges present. Occasional muscle artifact is identified. Activation was not done. INTERPRETATION Abnormal study on the basis of generalized slowing consistent with a severe encephalopathy. No epileptiform features seen. MD YONIS Price/DESEAN /3:07 PM /3:15 PM
--- NOTE | 2016-05-16 16:25 | RADRPT ---
EXAM DATE/TIME: 05/16/2016 15:46 [facility] COMPARISON: CT BRAIN W/O,CONTRAST, May 16, 2016, 8:30. CT ABDOMEN & PELVIS W/O CONTRAST, May 16, 2016, 8 :39. INDICATIONS : Altered mental status. Hemorrhage. MEDICAL HISTORY : Hypertension. Diabetes. SURGICAL HISTORY : Cardiac cath. Lumbar surgery. ENCOUNTER: Subsequent ACUITY: 2 day PAIN SCORE: Nonresponsive. LOCATION: cranial TECHNIQUE: Multiplanar, multisequence MRI of the brain was performed without contrast. FINDINGS: The craniocervical junction and midline structures are unremarkable. There is no evidence of acute co rtical infarction, acute hemorrhage, mass effect or midline shift. There are focal areas of infarctio n in a symmetric fashion involving the globus pallidus bilaterally. There punctate is restricted diff usion in the payan radiata bilaterally which may reflect small areas of punctate white matter infarc t all measuring less than 1 cm in diameter with more focal areas on the right and 3 on the left. Post erior fossa structures are unremarkable. CONCLUSION: 1. Small punctate areas of white matter infarction without cortical extension or hemorrhage. There is no significant mass effect. 2. Bilateral basal ganglia infarcts measuring 1 cm Bobby Lamas MD on May 16, 2016 at 16:17 Board Certified Radiologist. This report was verified electronically.
[2016-05-16 16:40] LABS: AUTOMATED NEUTROPHIL # 16.7 TH/MM3 (1.8-7.7); BASOPHIL # 0.1 TH/MM3 (0-0.2); BASOPHIL % 0.3 % (0.0-2.0); LYMPH % 12.8 % (9.0-44.0); LYMPHOCYTE # 2.6 TH/MM3 (1.0-4.8); MEAN CELL VOLUME 86.9 FL (80.0-100.0); MEAN CORPUSCULAR HEMOGLOBIN 28.5 PG (27.0-34.0); MEAN CORPUSCULAR HGB CONC 32.7 % (32.0-36.0); MONO % 5.7 % (0.0-8.0); NEUT % 81.2 % (16.0-70.0); PLATELET COUNT 317 TH/MM3 (150-450); RED CELL DISTRIBUTION WIDTH 16.1 % (11.6-17.2); WHITE BLOOD COUNT 20.6 TH/MM3 (4.0-11.0)
[2016-05-16 16:42] LABS: HEMO FLAGS AUTO DIFF
[2016-05-16] MEDS ORDERED: ETOMIDATE 20 MG/10 ML VIAL ONE (16:44)
[2016-05-16] MEDS ORDERED: ROCURONIUM INJ 50 MG/5 ML VIAL ONE (16:44)
[2016-05-16] MEDS ORDERED: MIDAZOLAM HCL 5 MG/ML VIAL (1 ML) ONE ×2 (16:44→16:45)
[2016-05-16 16:47] LABS: APTT (PATIENT) 34.9 SEC (24.3-30.1); INTERNATIONAL NORMALIZED RATIO 1.3 RATIO; PROTHROMBIN TIME - PATIENT 14.5 SEC (9.8-11.6)
--- NOTE | 2016-05-16 17:04 | PD.PROCEDR ---
Procedure Note Procedure After the risks and benefits were discussed the following procedure was performed: INTUBATION: The patient was put in optimal position for the procedure. Rapid sequence intubation was initiated by me using 20 milligrams of etomidate IV, 5 mg IV Versed and 50 milligrams of Rocuronium IV. DL with Mac 4 blade Grade 1 view with Cricoid pressure, single attempt. The patient was intubated with a 8.0 cuffed endotracheal tube. Tube placement was confirmed by visualization of the tube and balloon passing through the cords, capnometry and subsequent chest x-ray. Breath sounds were equal and well aerated bilaterally postintubation. No breath sounds over stomach. Patient tolerated procedure well. Tahmina Kelsey MD May 16, 2016 17:04
[2016-05-16 17:11] LABS: ALKALINE PHOSPHATASE 55 U/L (45-117); ALT (GPT) 1086 U/L (12-78); ANION GAP 14 MEQ/L (5-15); AST (GOT) 2953 U/L (15-37); BICARBONATE 21.3 MEQ/L (21.0-32.0); BLOOD UREA NITROGEN 68 MG/DL (7-18); CHLORIDE 110 MEQ/L (98-107); GLOMERULAR FILTRATION RATE 19 ML/MIN (>89); POTASSIUM 4.4 MEQ/L (3.5-5.1); SODIUM (NA) 145 MEQ/L (136-145); TOTAL BILIRUBIN ADULT 0.7 MG/DL (0.2-1.0)
[2016-05-16 17:12] LABS: BANDS 6 % (0-6); BASOPHILS 1 % (0-2); METAMYELOCYTES 2 % (0-1); NEUTROPHIL # MANUAL DIFF 17.1 TH/MM3 (1.8-7.7); PLATELET ESTIMATE SMEAR NORMAL (NORMAL); PLATELET MORPHOLOGY NORMAL (NORMAL); POLYS (SEG NEUTROPHILS) 75 % (16-70); SCAN/DIFF FINAL DIFF MANUAL; WBC DIFF SAMPLE 100
--- NOTE | 2016-05-16 17:53 | RADRPT ---
EXAM DATE/TIME: 05/16/2016 17:13 [facility] COMPARISON: CHEST SINGLE AP, May 16, 2016, 4:40. INDICATIONS : Post intubation. MEDICAL HISTORY : Hypertension. Congestive heart failure. Diabetes mellitus type II. SURGICAL HISTORY : None. ENCOUNTER: Initial ACUITY: 1 day PAIN SCORE: Non-responsive. LOCATION: Bilateral chest FINDINGS: Endotracheal tube is present with tip 2 cm above the kendal. A nasogastric tube tip terminates in the stomach with sidehole in the distal esophagus. Lungs are symmetrically aerated and grossly clear. Ca rdiomediastinal contours are satisfactory for technique and projection. CONCLUSION: NG tube should ideally be advanced an additional 7-8 cm. ET tube in good position. Low Blood MD Board Certified Radiologist. This report was verified electronically.
[2016-05-16 18:11] LABS: BLOOD GAS BASE EXCESS -5.7 mmol/L (-2-2); BLOOD GAS CARBOXYHEMOGLOBIN 1.8 % (0-4); BLOOD GAS HCO3 18 mmol/L (22-26); BLOOD GAS METHEMOGLOBIN 1.3 % (0-2); BLOOD GAS O2 HGB SATURATION 92 % (90-100); BLOOD GAS OXYGEN CONTENT 11.5 Vol % (12.0-20.0); BLOOD GAS PCO2 31 mmHg (38-42); BLOOD GAS PO2 79 mmHg (61-120); BLOOD GAS TOTAL HGB 8.9 G/DL (12.0-16.0); CRITICAL VALUE NO; OXYGEN DEVICE VENTILATOR; TEMP CORR TO 98.6
[2016-05-16 18:12] LABS: DRAW SITE RT RADIAL; FIO2 60 %; NUMBER OF ARTERIAL PUNCTURES 1; STAT NO; ULNAR PULSE PRESENT
[2016-05-16] MEDS: PROPOFOL 1000 MG/100 ML INJ 100 ML IV SCH (21:01)
--- NOTE | 2016-05-16 21:01 | MB ---
cc: DAVID SANDERS DATE OF CONSULTATION: 05/16/2016 Date of : 1955 REASON FOR CONSULTATION Patient with diagnosis of occlusive thrombus in the right posterior tibial vein, who was on anticoagulation and now has intra-abdominal bleed. Consulted for further recommendations regarding anticoagulation. CHIEF COMPLAINT: The patient is acutely ill. He is in the Intensive Care Unit. HISTORY OF PRESENT ILLNESS: Mr. Short is a 61-year-old male who has a history of coronary artery disease, hypertension, diabetes type 2 and spinal stenosis. He was brought to the [facility] emergency department with acute onset diaphoresis, chest pain and syncope. He had ST elevation in the anterior septal leads and the patient underwent cardiac catheterization. During his cardiac catheterization he became hypotensive, tachypneic, and hypoxic. He subsequently became bradycardic with a heart rate in the 40s and had PEA. He received CPR for 2 minutes with return of his pulse. He remained altered and was spiking low grade fevers. 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 CT surgery has seen the patient and there are plans to transfer this patient to [facility]. During the course of his hospitalization a Doppler ultrasound was completed on 05/10/2016 which showed an occlusive thrombus in the right posterior tibial vein. The patient was started on full-dose Lovenox, however, he had an acute drop in hemoglobin and he was transfused 2 units of packed red blood cells. He underwent CT scan of his brain as well as CT of the abdomen and pelvis. The CT scan of the abdomen and pelvis showed a large area of hemorrhage involving the left retroperitoneum and psoas muscle within the mesentery and small area in the right psoas muscle. The areas of hemorrhage are large and multifocal. There was also a small focal collection of hemorrhage adjacent to the left external iliac artery. The patient had an MRI of the brain which showed small punctate areas of white matter infarction without cortical extension or hemorrhage. There was no significant mass effect. There are bilateral basal ganglia infarcts measuring 1 cm. The patient was given protamine to reverse the effects of the Lovenox. I have been consulted to make recommendations in this patient who has lower extremity thrombosis. REVIEW OF SYSTEMS The patient is currently encephalopathic, unable to obtain review of systems. PAST MEDICAL HISTORY 1. Hypertension 2. Coronary artery disease 3. Nonischemic cardiomyopathy secondary to hypertensive heart disease. 4. Diabetes type 2. PAST SURGICAL HISTORY 1. Laminectomy 2. Left ring finger amputation 3. Left total knee arthroplasty 4. Cardiac cath in 2009. MEDICATIONS 1. Plavix 75 mg daily. 2. Metformin 500 mg p.o. t.i.d. 3. Spirolactone 50 milligrams one tablet p.o. b.i.d. 4. Hydrochlorothiazide 25 mg 1 tablet p.o. daily. 5. Norvasc 5 mg one tablet daily. 6. His Plavix and aspirin have been stopped. 7. He is currently on cefepime two grams IV q12 hours. 8. Flagyl q8 hours IV. 9. DuoNeb 10. Hydralazine 20 mg q.4 h p.r.n. 11. Sliding scale insulin. 12. Labetalol 20 mg IV q.2 h p.r.n. 13. Senna. 14. Docusate. 15. Artificial tears. 16. Zofran 4 mg IV q.6 h p.r.n. ALLERGIES He is allergic to penicillin. FAMILY HISTORY AND SOCIAL HISTORY Unable to be obtained due to the patient's mental status, he is currently encephalopathic LABORATORY DATA WBC is 20.6. Hemoglobin is 8.8, MCV 86.9, platelet count is 317. Serum chemistries showed sodium 145, potassium 4.4, chloride 110, anion gap is 14, BUN is 68, creatinine is 3.88, AST is 2953, ALT is 1086, alk phos is 55, ammonia is 32, total protein is 6.1, albumin is 2.5. His coags show PT of 14.5, INR is 1.3 and PTT 34.9. IMAGING STUDIES Reviewed in the EMR ASSESSMENT/PLAN This is a 61-year-old male with a history of coronary artery disease, hypertension, type 2 diabetes and spinal stenosis who now has an acute ST elevation [place]. He is acutely ill with multi-system organ failure. 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 The patient has been seen by cardiothoracic surgery and the plans are to transfer him to [facility]. I have been consulted to evaluate this patient who had lower extremity posterior tibial thrombosis who was on anticoagulation and then developed intraperitoneal hemorrhage. 1. Left lower extremity superficial thrombosis involving the right posterior tibial vein. The patient was on anticoagulation with Lovenox. He had an acute drop in his hemoglobin and there are large areas of hemorrhage involving the left peritoneum psoas muscle, the mesentery as well as area adjacent to the left external iliac artery. Lovenox has been reversed with protamine. Anticoagulation has been stopped. At this time I would not recommend any further anticoagulation since this patient is at a high-risk of bleeding. The patient was previously on aspirin and plavix and these have been discontinued. I believe that this bleeding has occurred in the setting of being on Lovenox, asprin, plavix and depletion of coagulation factors in the setting of fulminant Hepatic failure. At this time, I would not recommend placing an IVC filter since this is a distal superficial thrombosis. We will closely monitor him. Should his lower extremity edema worsens, we will repeat ultrasound and will make a decision whether an IVC is needed. I have discussed this case with Dr. Kelsey. 2. Acute anemia due to intra-abdominal bleeding. I would recommend checking CBC, q12 hours, transfuse to keep hemoglobin greater than 8. Check daily coags. 3. Acute respiratory failure, currently on BiPAP. 4. Acute kidney injury. 5. Transaminitis and Fulminant liver failure. 6. Diabetes type 2. 7. Septic shock. He is currently on antibiotics. 8. Acute metabolic encephalopathy. Thank you for allowing me to participate in the care of this patient. I will continue to follow this patient along. MD BECCA Aguiar/GALILEO /7:44 PM /8:40 PM ADRIEL
[2016-05-16] MEDS: CHLORHEXIDINE 0.12% (ORAL KIT) 15 ML CUP MT SCH (21:02)
[2016-05-16] MEDS ORDERED: SODIUM CHLOR 0.9% 1000 ML INJ 3,000 ML IV ONE (22:45)
[2016-05-17] VITALS (22 sets, daily range): BP systolic 70–136; BP diastolic 31–71; PULSE 60–146; RESP 25–31; TEMP 98.6–102.5; O2SAT 94–100
[2016-05-17] MEDS: PROPOFOL 1000 MG/100 ML INJ 100 ML IV SCH ×3 (00:09→11:10)
[2016-05-17] MEDS: metroNIDAZOLE 500 MG INJ 100 ML IV SCH ×2 (00:11→08:03)
[2016-05-17] MEDS: INSULIN NovoLIN REGULAR SUPPLEMENTAL SCALE SQ SCH ×4 (00:11→18:00)
[2016-05-17 02:55] LABS: AUTOMATED NEUTROPHIL # 19.8 TH/MM3 (1.8-7.7); BASOPHIL # 0.1 TH/MM3 (0-0.2); BASOPHIL % 0.5 % (0.0-2.0); EOSINOPHIL # 0.1 TH/MM3 (0-0.4); EOSINOPHIL % 0.2 % (0.0-4.0); HEMATOCRIT 27.9 % (39.0-51.0); LYMPH % 9.6 % (9.0-44.0); LYMPHOCYTE # 2.4 TH/MM3 (1.0-4.8); MEAN CELL VOLUME 91.1 FL (80.0-100.0); MEAN CORPUSCULAR HEMOGLOBIN 28.5 PG (27.0-34.0); MEAN CORPUSCULAR HGB CONC 31.3 % (32.0-36.0); MONO % 10.9 % (0.0-8.0); NEUT % 78.8 % (16.0-70.0); PLATELET COUNT 273 TH/MM3 (150-450); RED BLOOD COUNT 3.06 MIL/MM3 (4.50-5.90); RED CELL DISTRIBUTION WIDTH 16.8 % (11.6-17.2); WHITE BLOOD COUNT 25.2 TH/MM3 (4.0-11.0)
[2016-05-17 02:59] LABS: HEMO FLAGS AUTO DIFF
[2016-05-17 03:29] LABS: BANDS 14 % (0-6); CORRECTED NUCLEATED RBC 1 /100 WBC (0-0); METAMYELOCYTES 6 % (0-1); NEUTROPHIL # MANUAL DIFF 21.4 TH/MM3 (1.8-7.7); POLYS (SEG NEUTROPHILS) 65 % (16-70); WBC DIFF SAMPLE 100
[2016-05-17 03:30] LABS: PLATELET ESTIMATE SMEAR NORMAL (NORMAL); PLATELET MORPHOLOGY NORMAL (NORMAL); SCAN/DIFF FINAL DIFF MANUAL
[2016-05-17 03:31] LABS: TOXIC GRANULATION 1+ (NORMAL)
[2016-05-17] MEDS ORDERED: METOPROLOL TARTRATE 5 MG/5 ML VIAL IV PUSH ONE (03:45)
[2016-05-17 03:54] LABS: INTERNATIONAL NORMALIZED RATIO 1.2 RATIO; PROTHROMBIN TIME - PATIENT 13.9 SEC (9.8-11.6)
[2016-05-17] MEDS: RESP: ALBUTEROL 2.5 MG/IPRATROPIUM 0.5 MG NEB (SCH) NEB ×4 (03:56→21:24)
[2016-05-17] MEDS: CHLORHEXIDINE GLUCONATE 2 % 1 PACK (2 CLOTHS) TOP SCH (04:00)
[2016-05-17 04:12] LABS: MAGNESIUM 2.3 MG/DL (1.5-2.5); POTASSIUM 4.2 MEQ/L (3.5-5.1); TOTAL BILIRUBIN ADULT 0.6 MG/DL (0.2-1.0)
[2016-05-17 04:16] LABS: CALCIUM-PROTEIN CORRECTED 8.2 MG/DL (8.5-10.1)
[2016-05-17] MEDS ORDERED: SODIUM BICARBONATE 8.4% INJ 50 MEQ/50 ML SYR IV ONE (05:00)
[2016-05-17] MEDS ORDERED: EPINEPHrine HCL (1:10,000) 1 MG/10 ML SYRINGE IV ONE (05:00)
[2016-05-17] MEDS: SENNOSIDES 8.6 MG TAB PO SCH ×2 (05:28→18:00)
--- NOTE | 2016-05-17 06:34 | RADRPT ---
EXAM DATE/TIME: 05/17/2016 04:05 [facility] COMPARISON: No previous studies available for comparison. INDICATIONS : Shortness of breath. MEDICAL HISTORY : Hypertension. Congestive heart failure. Diabetes mellitus type II. SURGICAL HISTORY : None. ENCOUNTER: Subsequent ACUITY: 1 week PAIN SCORE: Non-responsive. LOCATION: Bilateral chest FINDINGS: Small lung volumes with trace basilar atelectasis. No large effusion seen. No pneumothorax. Endotracheal tube tip is about 4 cm above the kendal. Nasogastric tube courses into the stomach. CONCLUSION: No significant change. Minimal basilar atelectasis. Low Johnson MD on May 17, 2016 at 6:30 Board Certified Radiologist. This report was verified electronically.
[2016-05-17] MEDS ORDERED: SODIUM CHLOR 0.9% 1000 ML INJ 1,000 ML IV ONE (06:45)
--- NOTE | 2016-05-17 07:22 | HHI.CCPN ---
Subjective Remarks/Hospital Course 61-year-old AA male. Date of admission 05/05/2016. Date of consultation 2016. Past medical history includes hypertensive heart disease, hypertension, diabetes mellitus type 2 and spinal stenosis. He presented to [facility] today with history of acute onset of diaphoresis, chest pain and syncope. Her documentation, Chest pain was 7 out of 10 without radiation. Later in the hospital physician, patient did have ST elevation anterior septal leads. I he had a cardiac catheterization in 2009 which revealed moderate coronary disease which documented 50-60% stenosis in the LAD diagonals 1 and 2. Recommended medical management at that time. Dr. Marcano was notified and proceed to the cardiac catheter lab. Patient sees heparin and one aspirin prior to cardiac catheterization. During heart catheterization,, patient became hypertensive, tachypneic, hypoxic and agitated including abdominal pain with nausea and vomiting. Patient was intubated by Dr. Simon and dispensed transferred to room 505a. Currently hemodynamic stable on a propofol drip. 05/06: Patient required additional sedation overnight. Was moving all 4 extremity spontaneously and strongly. Potassium is replaced overnight along with magnesium. This afternoon approximate 4 PM, patient went into a sinus bradycardia in the 40s. RN cannot locate pulse and possibly went into a PEA arrest. Patient received CPR for approximately 2 minutes. ROSC return immediately. Received 1 mg of epinephrine IV. Blood pressure was 240 systolic. Saturations were above 90% the entire time. Dr. Marcano was made aware. No new recommendations at this time. Electrolytes currently pending. Patient is currently hemodynamic stable and an arterial line/left radial has been placed 05/07: no improvement in delirium or mental status. spiking low grade fevers. 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 CT surgery consulted and declined to operate here: he will need referral once stabilized. fio2 requirements still high. CT chest also with evidence of bibasilar consolidation which may be aspiration pneumonitis vs. pneumonia now that we are 48h out from initial presentation and now spiking fevers. 05/08: delirium persists. continues to spike fevers. jolly cultured yesterday without results yet. holding sedation today. 05/09: delirium slightly improved. waking up on SAT, weakly following commands. cultures still NGTD. hypoxia slightly improved. 05/10: delirium improving. weakly following commands still. cultures still NGTD. fevers persist, although fever curve appears to be improving. hypoxia continues to improve. still remains very critically ill. 05/11: Tmax 99.9. Currently 99.1. Tolerating tube feeding. One bowel movement. Continues to have difficulty weaning ventilator. Subjective 05/12: Currently afebrile. Tolerating tube feeding. Positive BM. Increased FiO2 from 45-60%. +1 L. Arousable on sedation vacation and weakly follows commands. 05/13: Remains intubated, sedated. FiO2 now reduced to 45% (was 55% today am). Start weaning trials after starting Precedex. To control BP May use Cardene, given anomalous RCA 05/14: Extubated yesterday, remained on BiPAP overnight. Intermittently agitated. Following commands to me today, while on BiPAP. Remains on Cardene infusion for uncontrolled hypertension. Urine output 4.7 L in 24 hours 05/15: On 3 L nasal cannula. Fever trending down, breathing more comfortably. Able to communicate. Discussed with Dr. Marcano. Dr. Pendleton will be available tomorrow, will probably need transfer to [facility] for RCA unroofing 05/16: Acutely hypotensive overnight with tachycardia. MAP was 55 with greater than 130s. Received 3.5 L of normal saline bolus with improvement in blood pressure and heart rate. Lethargic on BiPAP. ABG pending, HB dropped from 10.9 to 7.8. No obvious source of bleeding. STAT 2U PRBC. STAT CT head and CT abd pelvis. R/O ICH or RP bleed. Patient received only 5mg Nicci at 2100 yesterday, no other sedation. Last dose of Lovenox was at 211, held now 05/17: Developed Hemorrhagic shock from large retroperitoneal hemorrhage night to 05/15/16. Stabilized after 3 units of PRBC and protamine. Hemoglobin 8.7 today. Remain encephalopathy and unresponsive yesterday. MRI 05/16/16 shows small punctate white matter infarcts, bilateral basal ganglia infarcts. Urology consult pending. Antiplatelet drugs on hold. Now with anuria from ATN secondary to shock. Nephrology consult pending Objective Vital Signs Date Time Temp Pulse Resp B/P Pulse Ox O2 Delivery O2 Flow Rate FiO2 05/17/16 06:00 129 05/17/16 04:00 98.9 25 115/63 100 05/17/16 04:00 60 05/16/16 19:00 Mechanical Ventilator 05/15/16 20:59 3.00 Intake and Output 05/16/16 05/16/16 05/17/16 08:00 16:00 00:00 Intake Total 2300 ml 3395 ml 180 ml Output Total 50 ml 400 ml 325 ml Balance 2250 ml 2995 ml -145 ml Result Diagram: 05/17/16 0240 05/17/16 0323 Other Results Laboratory Tests Test 05/16/16 18:06 Blood Gas Puncture Site RT RADIAL Blood Gas Patient Temperature 98.6 Blood Gas HCO3 18 mmol/L (22-26) Blood Gas Base Excess -5.7 mmol/L (-2-2) Blood Gas Oxygen Saturation 92 % (90-100) Arterial Blood pH 7.39 (7.380-7.420) Arterial Blood Partial 31 mmHg (38-42) Pressure CO2 Arterial Blood Partial 79 mmHg Pressure O2 (61-120) Arterial Blood Oxygen Content 11.5 Vol % (12.0-20.0) Arterial Blood 1.8 % (0-4) Carboxyhemoglobin Arterial Blood Methemoglobin 1.3 % (0-2) Blood Gas Hemoglobin 8.9 G/DL (12.0-16.0) Oxygen Delivery Device VENTILATOR Blood Gas Ventilator Setting A/C 650/16/12 PEEP Blood Gas Inspired Oxygen 60 % Imaging Last Impressions Chest X-Ray 05/12/16 0600 Signed Impressions: Service Date/Time: Thursday, May 12, 2016 03:30 - CONCLUSION: Worsening appearance of the chest. Ronald Tinsley MD Upper Extremity Ultrasound 05/10/16 0000 Signed Impressions: Service Date/Time: Tuesday, May 10, 2016 09:44 - CONCLUSION: Occlusive thrombus in the right cephalic vein. Otherwise negative Shahid Sin MD Lower Extremity Ultrasound 05/10/16 0000 Signed Impressions: Service Date/Time: Tuesday, May 10, 2016 09:20 - CONCLUSION: Occlusive thrombus right posterior tibial vein. Otherwise negative with negative left lower extremity Shahid Sin MD Head CT 05/08/16 0000 Signed Impressions: Service Date/Time: Sunday, May 08, 2016 17:42 - CONCLUSION: Intracranially negative. Ethmoid and left maxillary sinus disease includes air-fluid level left maxillary sinus. Shahid Sin MD CT Angiography 05/06/16 0000 Signed Impressions: Service Date/Time: Saturday, May 07, 2016 00:04 - CONCLUSION: 1. Lobar consolidation bilaterally in the lower lobes. 2. Negative for pulmonary embolism. Michael Colbert MD Objective Remarks GENERAL: 61-year-old AA male, morbidly obese, intubated sedated with propofol, critically ill SKIN: Warm and dry. No rash HEAD: Atraumatic. Normocephalic. EYES: Pupils equal and round around 2-3 mm bilaterally and slightly reactive. No scleral icterus. No injection or drainage. ENT: No nasal bleeding or discharge. Mucous membranes pink. NECK: Trachea midline. JVD difficult to assess due to body habitus. CARDIOVASCULAR: Distant due to body habitus. Regular rate and rhythm. S1, S2. Without murmur RESPIRATORY: Diminished breath sounds bilaterally due to body habitus. Breath sounds equal bilaterally. On ACV GASTROINTESTINAL: Abdomen obese, non-tender, protuberant. no guarding. MUSCULOSKELETAL: Extremities without significant peripheral edema. NEUROLOGICAL: Patient is on 20 mcg/kg/m of propofol. On sedation hold slightly withdraws upper and lower extremity to deep pain. No eye opening, no spontaneous movements A/P Assessment and Plan Neuro/Psych: Bilateral basal ganglia infarcts, small punctate white matter infarcts on MRI Acute toxic metabolic encephalopathy Propofol for ventilator synchrony. Daily sedation vacation Neurology consult is pending at this time MRI of the brain done 05/16/16 shows small punctate white matter infarcts, bilateral basal ganglia infarcts Off Seroquel and Haldol due to nonsustained V. tach Head CT 05/08, 05/16: negative acute. EEG 05/12 revealed generalized slowing right greater than left. No epileptiform activity. EEG 05/16: No seizure, severe encephalopathy CV: Hemorrhagic shock due to left retroperitoneal hemorrhage-shock resolved Aberrant RCA off LCC Nonsustained V. tach single episode Diastolic heart failure Coronary artery disease Nonischemic cardiomyopathy secondary to hypertensive heart disease Hypertensive emergency On 05/16/16 patient received 4 L normal saline boluses, 3 units PRBC Currently blood pressure is stable but patient remains tachycardic Received 5 mg IV metoprolol, resume metoprolol at 5 mg IV every 6 hours with holding parameters Status post cardiac catheterization by Dr. Moy. No intervention performed. Known coronary artery artery disease to the first and second diagonals the LAD. Aberrant RCA off left coronary cups. Transfer to fo RCA unroofing once clinically stable Aspirin 81 mg on hold due to RP hemorrhage. (Plavix DC d 05/15/[address] Marcano in anticipation of probable unroofing surgery) Hold Lipitor 20 mg a night. Hold Procardia XL 90 mg,metoprolol 25 mg by mouth every 8 hours, clonidine 0.2 mg by mouth every 8 hours ALL held due to hypotension shock Holding Lasix 20 mg po BID (Holding home medications of hydrochlorothiazide 25 mg daily, spironolactone 50 mg twice a day) Pulm: Acute hypoxemic respiratory failure-extubated 05/13/16, re intubated 05/16/16 for airway protection Likely underlying STU Extubated 05/13/16. Reintubated 05/16/16 for airway protection due to severe encephalopathy Start daily sedation vacation, C Pap trial. Mental status will not permit extubation Chest x-ray shows bibasilar atelectasis Empiric antibiotics, sputum culture pending GI: Acute large left retroperitoneal hemorrhage Hypoalbuminemia Constipation- resolved. Start tube feeds with Nepro Supportive care with blood transfusion and correction of coagulopathy Continue Protonix for GI prophylaxis Colace/Senokot twice a day for bowel regimen, /Renal: Acute kidney failure due to ATN Anuria Chaudhry for accurate I's and O's in a critically ill patient Nephrology consult pending No response to fluid challenge, placed on Bumex 2 mg 1 and Bumex infusion No indication for emergency dialysis at this time Endo: Diabetes mellitus type 2 Sliding-scale insulin Accu-Cheks to maintain euglycemia. Medium regimen every 6 hours Holding metformin Heme: Acute blood loss anemia with shock Large left retroperitoneal hemorrhage Right cephalic superficial thrombus/right PT DVT Normocytic anemia Transfused 3 units PRBC stat on 05/16/16 Therapeutic Lovenox discontinued, aspirin placed on hold 75 mg IV protamine slow infusion (D/W with Dr. grimes) on 05/16/16. Coagulation profile is acceptable Hematology consulted, recommends against anticoagulation and IVC filter CBC daily. Monitor trends. No active bleeding. Was on Lovenox 150 mg subcutaneous twice a day-DCd 05/16/16 ID: Aspiration pneumonia --Started cefepime and Flagyl on 05/16/16. A single dose of vancomycin given --Repeat jolly cultures. No fever today Pertinent cultures 05/07 - blood cultures 2 - negative 05/08 - sputum - negative 05/08 - urine - negative 05/08 - blood cultures - negative 05/13 - blood cx negative 05/13 - urine cx negative 05/16 - sputum P 05/16 - urine P 131 - blood cultures P MSK: History of spinal stenosis/laminectomy/left total knee replacement and left ring finger amputation PT evaluate and treat Access - Utilize peripheral IV/Central line if indicated Prophylaxis - GI - Protonix - DVT -DC Lovenox. SCD on L leg - Check venous doppler Critical Care: CCT 60 MIN Tahmina Kelsey MD May 17, 2016 07:22
[2016-05-17] MEDS ORDERED: BUMETANIDE INJ 1 MG/4 ML VIAL IV PUSH ONE (07:30)
[2016-05-17] MEDS: ALBUMIN HUMAN 25% 25 GM/100 ML BAGP IV SCH ×2 (07:41→20:13)
[2016-05-17] MEDS: SODIUM CHLORIDE 0.9% FLUSH 5 ML FLUSH IV FLUSH SCH ×2 (07:41→20:12)
[2016-05-17] MEDS: CHLORHEXIDINE 0.12% (ORAL KIT) 15 ML CUP MT SCH ×2 (08:00→20:00)
[2016-05-17] MEDS: METOPROLOL TARTRATE 5 MG/5 ML VIAL IV PUSH SCH ×3 (08:03→18:59)
[2016-05-17] MEDS: DOCUSATE SODIUM 100 MG CAP PO SCH ×2 (09:00→20:13)
[2016-05-17] MEDS: ARTIFICIAL TEARS OPTH SOLN 15 ML BTL EACH EYE SCH ×2 (09:00→13:00)
[2016-05-17] MEDS ORDERED: BUMETANIDE INJ 100 ML IV SCH (09:30)
--- NOTE | 2016-05-17 09:43 | PD.CARD.PN ---
Subjective Subjective Remarks Events over night noted, currently stable on vent Objective Medications Current Medications Medications (Trade) Dose Ordered Sig/Isabelle Route Start Time Stop Time Status Last Admin (NS Flush) 2 ml UNSCH PRN IV FLUSH 05/05/16 17:15 (NS Flush) 2 ml BID IV FLUSH 05/05/16 21:00 05/17/16 07:41 (Tylenol) 650 mg Q6H PRN PO 05/05/16 17:15 05/15/16 11:55 (Tears Naturale Opth Soln) 1 drop TID EACH EYE 05/05/16 18:00 05/16/16 17:56 (Zofran Inj) 4 mg Q6H PRN IV 05/05/16 17:15 (Colace) 100 mg BID PO 05/05/16 21:00 05/16/16 21:00 Miscellaneous Information 1 Q361D XX 05/05/16 17:15 05/05/16 17:15 (Chlorhexidine 2% Cloth) Taper DAILY@04 TOP 05/06/16 04:00 05/02/17 03:59 05/17/16 04:00 (Chlorhexidine 2% Cloth) 3 pack UNSCH PRN TOP 05/05/16 17:15 (Glucagon Inj) 1 mg UNSCH PRN OTHER 05/05/16 17:15 (Aspirin Chew) 81 mg DAILY CHEW 05/06/16 09:00 Hold 05/15/16 08:30 (Lipitor) 20 mg DAILY PO 05/06/16 09:00 Hold 05/15/16 08:32 (Senokot) 17.2 mg Q12H PO 05/06/16 18:00 05/17/16 05:28 (Trandate Inj) 20 mg Q2HR PRN IV PUSH 05/06/16 23:30 05/15/16 14:41 (D50w (Vial) Inj) 25 ml UNSCH PRN IV PUSH 05/08/16 21:00 (NovoLIN R SUPPLEMENTAL SCALE) 1 Q6HR SQ 05/09/16 00:00 05/17/16 00:11 (Pill Splitter) 1 ea UNSCH PRN OTHER 05/11/16 15:15 (Apresoline Inj) 20 mg Q4H PRN IV PUSH 05/13/16 16:15 (Lopressor) 25 mg Q8HR PO 05/13/16 22:00 Hold 05/15/16 14:44 (Ofirmev Inj) 1,000 mg Q6H PRN IV 05/13/16 18:30 05/13/16 19:23 (Procardia Xl) 90 mg DAILY PO 05/14/16 09:00 Hold 05/15/16 08:30 Furosemide 20 mg 20 mg BID@09,18 PO 05/15/16 18:00 Hold 05/15/16 17:22 Cefepime HCl 2000 mg/Sodium Chloride 100 ml @ 200 mls/hr Q12H IV 05/16/16 08:00 05/16/16 21:00 (Flagyl 500 Mg Inj) 100 ml @ 100 mls/hr Q8H IV 05/16/16 08:00 05/17/16 08:03 Chlorhexidine Gluconate 15 ml 15 ml BID@08,20 MT 05/16/16 20:00 05/16/16 21:02 (Diprivan 1000 Mg/100ml Inj) 100 ml @ 0 mls/hr TITRATE IV 05/16/16 17:00 05/17/16 05:28 (Lopressor Inj) 5 mg Q6H IV PUSH 05/17/16 07:00 05/17/16 08:03 Albumin Human 25 gm 25 gm Q12H IV 05/17/16 08:00 05/17/16 07:41 (Bumex Inj) 100 ml @ 2 mls/hr CONTINUOUS IV 05/17/16 09:30 Vital Signs / I&O Vital Signs Date Time Temp Pulse Resp B/P Pulse Ox O2 Delivery O2 Flow Rate FiO2 05/17/16 07:58 99.6 05/17/16 07:34 100 50 05/17/16 07:00 100 Mechanical Ventilator 50 05/17/16 06:00 129 05/17/16 04:00 98.9 123 25 115/63 100 05/17/16 04:00 123 05/17/16 04:00 60 05/17/16 03:50 100 50 05/17/16 02:00 125 05/17/16 00:35 100 60 05/17/16 00:00 87 05/17/16 00:00 98.6 87 30 108/52 100 05/17/16 00:00 60 05/16/16 22:06 100 60 05/16/16 22:00 104 05/16/16 20:02 99 60 05/16/16 20:00 60 05/16/16 20:00 98.6 84 29 123/91 100 05/16/16 20:00 84 05/16/16 19:00 94 Mechanical Ventilator 60 05/16/16 18:00 109 05/16/16 18:00 60 05/16/16 17:21 100 100 05/16/16 16:00 99.3 105 24 116/58 100 05/16/16 16:00 90 05/16/16 14:00 90 05/16/16 12:00 99.3 88 24 114/65 99 05/16/16 12:00 88 05/16/16 11:46 100 35 05/16/16 10:45 98.3 133 30 113/64 99 05/16/16 10:00 107 05/16/16 09:40 98.9 108 28 99 I/O 05/16/16 05/16/16 05/16/16 05/17/16 05/17/16 05/17/16 07:00 15:00 23:00 07:00 15:00 23:00 Intake Total 2300 ml 3395 ml 180 ml 3100 ml Output Total 50 ml 400 ml 325 ml 0 ml Balance 2250 ml 2995 ml -145 ml 3100 ml Intake Oral 0 ml IV Total 2300 ml 2312 ml 180 ml 3100 ml Packed Cells 1083 ml Output Urine Total 50 ml 400 ml 300 ml 0 ml Stool Total 0 ml 0 ml 0 ml Gastric Drainage Total 25 ml # Bowel Movements 1 Physical Exam GENERAL: Sedated on the vent SKIN: Warm and dry. HEAD: Atraumatic. Normocephalic. EYES: Pupils equal and round. No scleral icterus. No injection or drainage. ENT: No nasal bleeding or discharge. Mucous membranes pink and moist. NECK: Trachea midline. No JVD. CARDIOVASCULAR: Regular rhythm. Tachycardic RESPIRATORY: No accessory muscle use. Decreased breath sounds bilaterally GASTROINTESTINAL: Abdomen soft, non-tender, nondistended. Hepatic and splenic margins not palpable. MUSCULOSKELETAL: Extremities without clubbing, cyanosis, or edema. No obvious deformities. Right radial no hematoma. Right femoral no hematoma/bruit noted NEUROLOGICAL: Sedated on the vent Laboratory Laboratory Tests Test 05/16/16 05/16/16 05/16/16 2/1/17 09:50 16:25 18:06 02:40 Crossmatch Leukocyte-Reduced Red Blood Cells Blood Bank Comment White Blood Count 20.6 TH/MM3 25.2 TH/MM3 Red Blood Count 3.10 MIL/MM3 3.06 MIL/MM3 Hemoglobin 8.8 GM/DL 8.7 GM/DL Hematocrit 27.0 % 27.9 % Mean Corpuscular Volume 86.9 FL 91.1 FL Mean Corpuscular Hemoglobin 28.5 PG 28.5 PG Mean Corpuscular Hemoglobin 32.7 % 31.3 % Concent Red Cell Distribution Width 16.1 % 16.8 % Platelet Count 317 TH/MM3 273 TH/MM3 Mean Platelet Volume 9.4 FL 9.4 FL Neutrophils (%) (Auto) 81.2 % 78.8 % Lymphocytes (%) (Auto) 12.8 % 9.6 % Monocytes (%) (Auto) 5.7 % 10.9 % Eosinophils (%) (Auto) 0.0 % 0.2 % Basophils (%) (Auto) 0.3 % 0.5 % Neutrophils # (Auto) 16.7 TH/MM3 19.8 TH/MM3 Lymphocytes # (Auto) 2.6 TH/MM3 2.4 TH/MM3 Monocytes # (Auto) 1.2 TH/MM3 2.7 TH/MM3 Eosinophils # (Auto) 0.0 TH/MM3 0.1 TH/MM3 Basophils # (Auto) 0.1 TH/MM3 0.1 TH/MM3 CBC Comment AUTO DIFF AUTO DIFF Differential Total Cells 100 100 Counted Neutrophils % (Manual) 75 % 65 % Band Neutrophils % 6 % 14 % Lymphocytes % 11 % 11 % Monocytes % 5 % 4 % Basophils % 1 % Neutrophils # (Manual) 17.1 TH/MM3 21.4 TH/MM3 Metamyelocytes 2 % 6 % Differential Comment FINAL DIFF FINAL DIFF MANUAL MANUAL Platelet Estimate NORMAL NORMAL Platelet Morphology Comment NORMAL NORMAL Prothrombin Time 14.5 SEC Prothromb Time International 1.3 RATIO Ratio Activated Partial 34.9 SEC Thromboplast Time Sodium Level 145 MEQ/L Potassium Level 4.4 MEQ/L Chloride Level 110 MEQ/L Carbon Dioxide Level 21.3 MEQ/L Anion Gap 14 MEQ/L Blood Urea Nitrogen 68 MG/DL Creatinine 3.88 MG/DL Estimat Glomerular Filtration 19 ML/MIN Rate Random Glucose 243 MG/DL Calcium Level 7.6 MG/DL Total Bilirubin 0.7 MG/DL Aspartate Amino Transf 2953 U/L (AST/SGOT) Alanine Aminotransferase 1086 U/L (ALT/SGPT) Alkaline Phosphatase 55 U/L Ammonia 32 MCMOL/L Total Protein 6.1 GM/DL Albumin 2.5 GM/DL Blood Gas Puncture Site RT RADIAL Blood Gas Patient Temperature 98.6 Blood Gas HCO3 18 mmol/L Blood Gas Base Excess -5.7 mmol/L Blood Gas Oxygen Saturation 92 % Arterial Blood pH 7.39 Arterial Blood Partial 31 mmHg Pressure CO2 Arterial Blood Partial 79 mmHg Pressure O2 Arterial Blood Oxygen Content 11.5 Vol % Arterial Blood 1.8 % Carboxyhemoglobin Arterial Blood Methemoglobin 1.3 % Blood Gas Hemoglobin 8.9 G/DL Oxygen Delivery Device VENTILATOR Blood Gas Ventilator Setting A/C 650/16/12 PEEP Blood Gas Inspired Oxygen 60 % Nucleated Red Blood Cells 1 /100 WBC Toxic Granulation 1+ Test 05/17/16 05/17/16 03:23 03:35 Sodium Level 148 MEQ/L Potassium Level 4.2 MEQ/L Chloride Level 112 MEQ/L Carbon Dioxide Level 22.0 MEQ/L Anion Gap 14 MEQ/L Blood Urea Nitrogen 78 MG/DL Creatinine 4.80 MG/DL Estimat Glomerular Filtration 15 ML/MIN Rate Random Glucose 179 MG/DL Calcium Level 7.3 MG/DL Protein Corrected Calcium 8.2 MG/DL Magnesium Level 2.3 MG/DL Total Bilirubin 0.6 MG/DL Aspartate Amino Transf 1869 U/L (AST/SGOT) Alanine Aminotransferase 998 U/L (ALT/SGPT) Alkaline Phosphatase 48 U/L Total Protein 5.4 GM/DL Albumin 2.2 GM/DL Prothrombin Time 13.9 SEC Prothromb Time International 1.2 RATIO Ratio Assessment and Plan Problem List: (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 (2) Hypertensive emergency (3) Acute hypoxemic respiratory failure (4) Diabetes mellitus (5) CAD (coronary artery disease) (6) NSVT (nonsustained ventricular tachycardia) (7) Retroperitoneal bleed Assessment and Plan 1) Cardiac cath showing mild to moderate CAD 2) Anomalous RCA off Left Coronary Cusp, will need CTA of coronaries to define pathway of RCA between PA and Aorta especially with chest pain/pre-syncopal episodes... but CT done shows that RCA most likely takes an intra-arterial route , discussed with radiology 3) Occlusive thrombus noted in right PT and right cephalic veins 4) Will discuss with CT Surgery about possible transfer for unroofing of RCA once stable 5) Retroperitoneal bleeds, Lovenox held... watch H/H 6) ATN from hypotension, await nephrology consult Maurizio Mracano DO May 17, 2016 09:43
[2016-05-17] MEDS: CEFEPIME INJ 2,000 MG in SODIUM CHLORIDE 0.9% INJ 100 ML IV SCH (09:55)
[2016-05-17] MEDS ORDERED: HEPARIN SODIUM - IV 10,000 UNITS/10 ML VIAL ONE (10:50)
--- NOTE | 2016-05-17 10:56 | PD.PROCEDR ---
Central Line Procedure REASON FOR PROCEDURE Central venous access PROCEDURE PERFORMED Central line placement: LIJ central line, US guided CONSENT Informed consent for procedure was obtained. The risks and benefits of the procedure were discussed to include but limited to bleeding, clot formation, infection, and even . ANESTHESIA Local injection of 1% Lidocaine DESCRIPTION OF THE PROCEDURE The patient was placed in supine, mild Trendelenburg position. The area was exposed and cleansed with ChloraPrep, times two. Large sterile drape was used to cover the patient, with the site exposed, under sterile conditions including cap, face mask, sterile gown, and sterile gloves. On single attempt, the introducer needle was inserted with negative pressure in syringe and venous flash was obtained. The guide wire was then advanced without any restriction and the needle was removed. The dilator was used without any complications. Using Seldinger technique the 20 CM triple lumen ABX coated catheter was advanced over the guide wire to a depth of 19 centimeters. The guide wire was removed. All ports were aspirated with dark venous blood return and flushed easily with sterile saline. All ports were capped. Antibiotic disc was placed around central line at puncture site. The central line was secured to the skin with two interrupted 2.0 silk sutures. The area was bandaged with sterile see- through central line bandage. RADIOLOGICAL DATA Ultrasound guidance was used to locate LIJ. Doppler/color flow was used to confirm venous flow. COMPLICATIONS: No apparent complications ESTIMATED BLOOD LOSS: Less than 1 cc. Tahmina Kelsey MD May 17, 2016 10:56
--- NOTE | 2016-05-17 11:01 | PD.PROCEDR ---
Central Line Procedure REASON FOR PROCEDURE Central venous access PROCEDURE PERFORMED [facility]: [facility] CONSENT Informed consent for procedure was obtained and time out performed. The risks and benefits of the procedure were discussed to include but limited to bleeding , clot formation, infection, and even . ANESTHESIA Local injection of 1% Lidocaine DESCRIPTION OF THE PROCEDURE The patient was placed in supine, mild Trendelenburg position. The area was exposed and cleansed with ChloraPrep, times two. Large sterile drape was used to cover the patient, with the site exposed, under sterile conditions including cap, face mask, sterile gown, and sterile gloves. On single attempt, the introducer needle was inserted with negative pressure in syringe and venous flash was obtained. The guide wire was then advanced without any restriction and the needle was removed. The dilator was used without any complications. Using Seldinger technique the 20CM 14 f two lumen vascular catheter was advanced over the guide wire to a depth of 17 centimeters. The guide wire was removed. All ports were aspirated with dark venous blood return and flushed easily with sterile saline. All ports were capped. Antibiotic disc was placed around central line at puncture site. The central line was secured to the skin with two interrupted 2.0 silk sutures. The area was bandaged with sterile see- through central line bandage. RADIOLOGICAL DATA Ultrasound guidance was used to locate RIJ. Doppler/color flow was used to confirm venous flow. COMPLICATIONS: No apparent complications ESTIMATED BLOOD LOSS: Less than 2 cc. Tahmina Kelsey MD May 17, 2016 11:01
--- NOTE | 2016-05-17 11:21 | PD.CONS ---
HPI Service Nephrology Consult Requested By Dr. Kelsey Reason for Consult Acute renal failure Primary Care Physician Bobby Olivera MD History of Present Illness Patient is 61 year-old -Serbian male M with history of diabetes, hypertension, morbid obesity who has the being admitted with shortness of breath and coronary syndrome he underwent CT angiogram of the chest and heart catheterization he has hypertensive emergency which required intubation and patient has complications including retroperitoneal bleed and has been hypotensive and developed acute renal failure with oliguria, despite giving him diuretics his urine output remains poor, he is intubated on ventilator requiring more oxygen Review of Systems ROS Limitations: Clinical Condition Past Family Social History Allergies: Coded Allergies: Penicillin (Verified Allergy, Mild, "I GO CRAZY", 09/01/15) Past Medical History Hypertension Coronary artery disease 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 Diabetes mellitus type 2 Past Surgical History Cardiac catheterization 2009 Laminectomy Left ring finger amputation Left total knee arthroplasty Reported Medications Reported Meds & Active Scripts Active Reported Plavix (Clopidogrel Bisulfate) 75 Mg Tab 75 Mg PO DAILY Metformin (Metformin HCl) 500 Mg Tab 500 Mg PO TIDPC With meals Spironolactone 50 Mg Tab Unknown Dose PO BIDPC Hydrochlorothiazide 25 Mg Tab 25 Mg PO DAILY Norvasc (Amlodipine Besylate) 5 Mg Tab Unknown Dose PO DAILY Active Ordered Medications Current Medications Medications (Trade) Dose Ordered Sig/Isabelle Route Start Time Stop Time Status Last Admin (NS Flush) 2 ml UNSCH PRN IV FLUSH 05/05/16 17:15 (NS Flush) 2 ml BID IV FLUSH 05/05/16 21:00 05/17/16 07:41 (Tylenol) 650 mg Q6H PRN PO 05/05/16 17:15 05/15/16 11:55 (Tears Naturale Opth Soln) 1 drop TID EACH EYE 05/05/16 18:00 05/16/16 17:56 (Zofran Inj) 4 mg Q6H PRN IV 05/05/16 17:15 (Colace) 100 mg BID PO 05/05/16 21:00 05/16/16 21:00 Miscellaneous Information 1 Q361D XX 05/05/16 17:15 05/05/16 17:15 (Chlorhexidine 2% Cloth) Taper DAILY@04 TOP 05/06/16 04:00 05/02/17 03:59 05/17/16 04:00 (Chlorhexidine 2% Cloth) 3 pack UNSCH PRN TOP 05/05/16 17:15 (Glucagon Inj) 1 mg UNSCH PRN OTHER 05/05/16 17:15 (Aspirin Chew) 81 mg DAILY CHEW 05/06/16 09:00 Hold 05/15/16 08:30 (Lipitor) 20 mg DAILY PO 05/06/16 09:00 Hold 05/15/16 08:32 (Senokot) 17.2 mg Q12H PO 05/06/16 18:00 05/17/16 05:28 (Trandate Inj) 20 mg Q2HR PRN IV PUSH 05/06/16 23:30 05/15/16 14:41 (D50w (Vial) Inj) 25 ml UNSCH PRN IV PUSH 05/08/16 21:00 (NovoLIN R SUPPLEMENTAL SCALE) 1 Q6HR SQ 05/09/16 00:00 05/17/16 00:11 (Pill Splitter) 1 ea UNSCH PRN OTHER 05/11/16 15:15 (Apresoline Inj) 20 mg Q4H PRN IV PUSH 05/13/16 16:15 (Lopressor) 25 mg Q8HR PO 05/13/16 22:00 Hold 05/15/16 14:44 (Ofirmev Inj) 1,000 mg Q6H PRN IV 05/13/16 18:30 05/13/16 19:23 (Procardia Xl) 90 mg DAILY PO 05/14/16 09:00 Hold 05/15/16 08:30 Furosemide 20 mg 20 mg BID@09,18 PO 05/15/16 18:00 Hold 05/15/16 17:22 Cefepime HCl 2000 mg/Sodium Chloride 100 ml @ 200 mls/hr Q12H IV 05/16/16 08:00 05/17/16 09:55 (Flagyl 500 Mg Inj) 100 ml @ 100 mls/hr Q8H IV 05/16/16 08:00 05/17/16 08:03 Chlorhexidine Gluconate 15 ml 15 ml BID@08,20 MT 05/16/16 20:00 05/16/16 21:02 (Diprivan 1000 Mg/100ml Inj) 100 ml @ 0 mls/hr TITRATE IV 05/16/16 17:00 05/17/16 05:28 (Lopressor Inj) 5 mg Q6H IV PUSH 05/17/16 07:00 05/17/16 08:03 Albumin Human 25 gm 25 gm Q12H IV 05/17/16 08:00 05/17/16 07:41 (Bumex Inj) 100 ml @ 2 mls/hr CONTINUOUS IV 05/17/16 09:30 Family History Noncontributory Social History Denies smoking or alcohol Physical Exam Vital Signs Vital Signs Date Time Temp Pulse Resp B/P Pulse Ox O2 Delivery O2 Flow Rate FiO2 05/17/16 07:58 99.6 05/17/16 07:34 100 50 05/17/16 07:00 100 Mechanical Ventilator 50 05/17/16 06:00 129 05/17/16 04:00 98.9 123 25 115/63 100 05/17/16 04:00 123 05/17/16 04:00 60 05/17/16 03:50 100 50 05/17/16 02:00 125 05/17/16 00:35 100 60 05/17/16 00:00 87 05/17/16 00:00 98.6 87 30 108/52 100 05/17/16 00:00 60 05/16/16 22:06 100 60 05/16/16 22:00 104 05/16/16 20:02 99 60 05/16/16 20:00 60 05/16/16 20:00 98.6 84 29 123/91 100 05/16/16 20:00 84 05/16/16 19:00 94 Mechanical Ventilator 60 05/16/16 18:00 109 05/16/16 18:00 60 05/16/16 17:21 100 100 05/16/16 16:00 99.3 105 24 116/58 100 05/16/16 16:00 90 05/16/16 14:00 90 05/16/16 12:00 99.3 88 24 114/65 99 05/16/16 12:00 88 05/16/16 11:46 100 35 Physical Exam GENERAL: Well-nourished, well-developed morbidly obese patient. SKIN: Warm and dry. HEAD: Normocephalic. EYES: No scleral icterus. No injection or drainage. NECK: Supple, trachea midline. No JVD or lymphadenopathy. CARDIOVASCULAR: Regular rate and rhythm without murmurs, gallops, or rubs. RESPIRATORY: Breath sounds equal bilaterally. No accessory muscle use. GASTROINTESTINAL: Abdomen soft, non-tender, distended. EXTREMITIES: No cyanosis, 2+ edema. NEUROLOGICAL: Intubated under sedation Laboratory Laboratory Tests Test 05/16/16 05/16/16 05/17/16 05/17/16 16:25 18:06 02:40 03:23 White Blood Count 20.6 25.2 Red Blood Count 3.10 3.06 Hemoglobin 8.8 8.7 Hematocrit 27.0 27.9 Mean Corpuscular Volume 86.9 91.1 Mean Corpuscular Hemoglobin 28.5 28.5 Mean Corpuscular Hemoglobin 32.7 31.3 Concent Red Cell Distribution Width 16.1 16.8 Platelet Count 317 273 Mean Platelet Volume 9.4 9.4 Neutrophils (%) (Auto) 81.2 78.8 Lymphocytes (%) (Auto) 12.8 9.6 Monocytes (%) (Auto) 5.7 10.9 Eosinophils (%) (Auto) 0.0 0.2 Basophils (%) (Auto) 0.3 0.5 Neutrophils # (Auto) 16.7 19.8 Lymphocytes # (Auto) 2.6 2.4 Monocytes # (Auto) 1.2 2.7 Eosinophils # (Auto) 0.0 0.1 Basophils # (Auto) 0.1 0.1 CBC Comment AUTO DIFF AUTO DIFF Differential Total Cells 100 100 Counted Neutrophils % (Manual) 75 65 Band Neutrophils % 6 14 Lymphocytes % 11 11 Monocytes % 5 4 Basophils % 1 Neutrophils # (Manual) 17.1 21.4 Metamyelocytes 2 6 Differential Comment FINAL DIFF FINAL DIFF MANUAL MANUAL Platelet Estimate NORMAL NORMAL Platelet Morphology Comment NORMAL NORMAL Prothrombin Time 14.5 Prothromb Time International 1.3 Ratio Activated Partial 34.9 Thromboplast Time Sodium Level 145 148 Potassium Level 4.4 4.2 Chloride Level 110 112 Carbon Dioxide Level 21.3 22.0 Anion Gap 14 14 Blood Urea Nitrogen 68 78 Creatinine 3.88 4.80 Estimat Glomerular Filtration 19 15 Rate Random Glucose 243 179 Calcium Level 7.6 7.3 Total Bilirubin 0.7 0.6 Aspartate Amino Transf 2953 1869 (AST/SGOT) Alanine Aminotransferase 1086 998 (ALT/SGPT) Alkaline Phosphatase 55 48 Ammonia 32 Total Protein 6.1 5.4 Albumin 2.5 2.2 Blood Gas Puncture Site RT RADIAL Blood Gas Patient Temperature 98.6 Blood Gas HCO3 18 Blood Gas Base Excess -5.7 Blood Gas Oxygen Saturation 92 Arterial Blood pH 7.39 Arterial Blood Partial 31 Pressure CO2 Arterial Blood Partial 79 Pressure O2 Arterial Blood Oxygen Content 11.5 Arterial Blood 1.8 Carboxyhemoglobin Arterial Blood Methemoglobin 1.3 Blood Gas Hemoglobin 8.9 Oxygen Delivery Device VENTILATOR Blood Gas Ventilator Setting A/C 650/16/12 PEEP Blood Gas Inspired Oxygen 60 Nucleated Red Blood Cells 1 Toxic Granulation 1+ Protein Corrected Calcium 8.2 Magnesium Level 2.3 Test 05/17/16 03:35 Prothrombin Time 13.9 Prothromb Time International 1.2 Ratio Date/Time Procedure Status Source Growth 05/16/16 17:20 Gram Stain - Final Resulted Sputum Endotracheal 05/16/16 17:20 Sputum Culture Resulted Sputum Endotracheal Pending 05/16/16 16:25 Aerobic Blood Culture Received Blood Peripheral Pending 05/16/16 16:25 Anaerobic Blood Culture Received Blood Peripheral Pending 05/16/16 07:40 Urine Culture Received Urine Catheterized Urine Pending 05/13/16 20:57 Aerobic Blood Culture - Preliminary Resulted Blood Peripheral NO GROWTH IN 4 DAYS 05/13/16 20:57 Anaerobic Blood Culture - Preliminary Resulted Blood Peripheral NO GROWTH IN 4 DAYS 05/13/16 18:40 Urine Culture - Final Complete Urine Catheterized Urine NO GROWTH IN 48 HOURS. Result Diagram: 05/17/16 0240 05/17/16 0323 Imaging Last Impressions Chest X-Ray 05/17/16 0600 Signed Impressions: Service Date/Time: Tuesday, May 17, 2016 04:05 - CONCLUSION: No significant change. Minimal basilar atelectasis. Low Johnson MD Head CT 05/16/16 0000 Signed Impressions: Service Date/Time: Monday, May 16, 2016 08:30 - CONCLUSION: Suspected bilateral basal ganglia calcifications are unchanged. No evidence of hemorrhage, edema, mass or mass effect. Stephen Quintanilla MD Brain MRI 05/16/16 0000 Signed Impressions: Service Date/Time: Monday, May 16, 2016 15:46 - CONCLUSION: 1. Small punctate areas of white matter infarction without cortical extension or hemorrhage. There is no significant mass effect. 2. Bilateral basal ganglia infarcts measuring 1 cm Bobby Lamas MD Abdomen/Pelvis CT 05/16/16 0000 Signed Impressions: Service Date/Time: Monday, May 16, 2016 08:39 - CONCLUSION: There are large areas of hemorrhage including the left retroperitoneum and psoas muscle, within the mesentery and a smaller area in the right psoas muscle. They don't appear to be related to the abdominal aorta or the internal iliac arteries. There is a small focal collection hemorrhage adjacent to the left external iliac artery as it enters the pelvis, but I don't believe that is related to the large amount of hemorrhage seen elsewhere. The areas of hemorrhage are large and multi-focal. Stephen Quintanilla MD Upper Extremity Ultrasound 05/10/16 0000 Signed Impressions: Service Date/Time: Tuesday, May 10, 2016 09:44 - CONCLUSION: Occlusive thrombus in the right cephalic vein. Otherwise negative Shahid Sin MD Lower Extremity Ultrasound 05/10/16 0000 Signed Impressions: Service Date/Time: Tuesday, May 10, 2016 09:20 - CONCLUSION: Occlusive thrombus right posterior tibial vein. Otherwise negative with negative left lower extremity Shahid Sin MD CT Angiography 05/06/16 0000 Signed Impressions: Service Date/Time: Saturday, May 07, 2016 00:04 - CONCLUSION: 1. Lobar consolidation bilaterally in the lower lobes. 2. Negative for pulmonary embolism. Michael Colbert MD Assessment and Plan Problem List: (1) Acute renal failure Plan: Patient is well oliguric acute renal failure and has low urine output despite diuretics, he has received dye studies and he has retroperitoneal bleed due to hypotension contributing to worse acute tubular necrosis admission creatinine was 0.9 and it does trended upwards to 4.8 today He will require hemodialysis and a Vas-Cath has been inserted Case is discussed with Dr. 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 Plan: Cardiology following (4) Acute hypoxemic respiratory failure Plan: On ventilator (5) Hypertensive emergency Plan: Patient has hypotension at time (6) Diabetes mellitus Plan: Continue monitor blood glucose (7) CAD (coronary artery disease) (8) Subsequent ST elevation (STEMI) myocardial infarction of anterior wall Problem Qualifiers (1) Acute renal failure: Qualified Code: N17.0 - Acute renal failure with tubular necrosis Linda Mcintosh MD May 17, 2016 11:21
--- NOTE | 2016-05-17 12:03 | RADRPT ---
EXAM DATE/TIME: 05/17/2016 11:14 This report includes an Addendum and supersedes previous reports for this exam. [facility] COMPARISON: CHEST SINGLE AP, May 17, 2016, 4:05. INDICATIONS : Evaluate central line and vascath placement. MEDICAL HISTORY : Hypertension. Diabetes mellitus type II. Cardiovascular disease. SURGICAL HISTORY : None. ENCOUNTER: Subsequent ACUITY: 1 week PAIN SCORE: Non-responsive. LOCATION: chest FINDINGS: A single view of the chest demonstrates endotracheal tube in satisfactory position. NG tube traverses esophagus. Right Vas-Cath present extending into right atrium. No pneumothorax. Basal airspace disea se. CONCLUSION: 1. Right Vas-Cath present. Tip not visualized but appears to pass into right atrium. Basal airspace d isease. Marek Bowers MD on May 17, 2016 at 11:59 Board Certified Radiologist. This report was verified electronically. ADDENDUM: There is also a left central line which is seen in satisfactory position traversing the left brachioc ephalic vein and just into the superior vena cava. Marek Bowers MD on May 17, 2016 at 12:27 Board Certified Radiologist. This report was verified electronically.
[2016-05-17] MEDS ORDERED: SODIUM CHLOR 0.9% 1000 ML INJ 1,000 ML IV PRN (12:13)
[2016-05-17] MEDS ORDERED: NITROGLYCERIN 0.4 MG SL 25 TABS/BTL SL PRN (12:15)
[2016-05-17] MEDS ORDERED: diphenhydrAMINE HCL 25 MG CAP PO PRN (12:15)
[2016-05-17] MEDS ORDERED: cloNIDine HCL 0.1 MG TAB PO PRN (12:15)
[2016-05-17] MEDS ORDERED: GELATIN 12 MM/7 MM FOAM TOP PRN (12:15)
[2016-05-17] MEDS ORDERED: ONDANSETRON HCL 4 MG/2 ML VIAL IV PRN (12:15)
[2016-05-17] MEDS ORDERED: ACETAMINOPHEN 325 MG TAB PO PRN (12:15)
[2016-05-17] MEDS ORDERED: HEPARIN SODIUM - IV 10,000 UNITS/10 ML VIAL IVF PRN (12:15)
[2016-05-17] MEDS: SODIUM CHLOR 0.9% 1000 ML INJ 1,000 ML IV PRN ×2 (12:27→12:28)
[2016-05-17] MEDS: GENTAMICIN SULFATE (DIALYSIS USE ONLY) 20 MG/2 ML VIAL IV PRN (12:28)
[2016-05-17] MEDS: HEPARIN SODIUM - IV 10,000 UNITS/10 ML VIAL PRN (12:28)
[2016-05-17] MEDS: SODIUM CHLORIDE 0.9% FLUSH 5 ML FLUSH IVF PRN (12:29)
--- NOTE | 2016-05-17 13:08 | HHI.IDPN ---
Subjective Subjective Remarks Mr. Short is a 61-year-old male who was admitted on May 05, 2016. Patient's past medical history significant for hypertensive heart disease, hypertension, type 2 diabetes and spinal stenosis. Patient presented to [facility] on the day of admission with history of acute onset of diaphoresis chest pain and syncope. Patient now has retroperitoneal hematoma, IC bleed. ID following for possible sepsis. Overnight events reviewed. Intubated for resp distress and AMS. Now on Hemodialysis 1st session just started Low grade temp 99.7 F No rash No diarrhea Antibiotics Cefepime IV Flagyl IV Lines Line sites with no e/o infection Past Medical History reviewed Allergies: Coded Allergies: Penicillin (Verified Allergy, Mild, "I GO CRAZY", 09/01/15) Objective . Vital Signs Date Time Temp Pulse Resp B/P Pulse Ox O2 Delivery O2 Flow Rate FiO2 05/17/16 11:12 94 50 05/17/16 10:00 134 05/17/16 08:00 125 05/17/16 08:00 99.7 125 27 116/71 100 05/17/16 08:00 50 05/17/16 07:58 99.6 05/17/16 07:34 100 50 05/17/16 07:00 100 Mechanical Ventilator 50 05/17/16 06:00 129 05/17/16 04:00 98.9 123 25 115/63 100 05/17/16 04:00 123 05/17/16 04:00 60 05/17/16 03:50 100 50 05/17/16 02:00 125 05/17/16 00:35 100 60 05/17/16 00:00 87 05/17/16 00:00 98.6 87 30 108/52 100 05/17/16 00:00 60 05/16/16 22:06 100 60 05/16/16 22:00 104 05/16/16 20:02 99 60 05/16/16 20:00 60 05/16/16 20:00 98.6 84 29 123/91 100 05/16/16 20:00 84 05/16/16 19:00 94 Mechanical Ventilator 60 05/16/16 18:00 109 05/16/16 18:00 60 05/16/16 17:21 100 100 05/16/16 16:00 99.3 105 24 116/58 100 05/16/16 16:00 90 05/16/16 14:00 90 05/16/16 05/16/16 05/17/16 15:00 23:00 07:00 Intake Total 3395 ml 180 ml 3100 ml Output Total 400 ml 325 ml 0 ml Balance 2995 ml -145 ml 3100 ml Intake Oral 0 ml IV Total 2312 ml 180 ml 3100 ml Packed Cells 1083 ml Output Urine Total 400 ml 300 ml 0 ml Stool Total 0 ml 0 ml Gastric Drainage Total 25 ml # Bowel Movements 1 . Laboratory Tests Test 05/16/16 05/16/16 05/17/16 03:58 16:25 02:40 White Blood Count 20.6 TH/MM3 20.6 TH/MM3 25.2 TH/MM3 Red Blood Count 2.64 MIL/MM3 3.10 MIL/MM3 3.06 MIL/MM3 Hemoglobin 7.8 GM/DL 8.8 GM/DL 8.7 GM/DL Hematocrit 24.4 % 27.0 % 27.9 % Mean Corpuscular Volume 92.2 FL 86.9 FL 91.1 FL Mean Corpuscular Hemoglobin 29.4 PG 28.5 PG 28.5 PG Mean Corpuscular Hemoglobin 31.9 % 32.7 % 31.3 % Concent Red Cell Distribution Width 14.4 % 16.1 % 16.8 % Platelet Count 298 TH/MM3 317 TH/MM3 273 TH/MM3 Mean Platelet Volume 8.9 FL 9.4 FL 9.4 FL Neutrophils (%) (Auto) 80.5 % 81.2 % 78.8 % Lymphocytes (%) (Auto) 11.3 % 12.8 % 9.6 % Monocytes (%) (Auto) 7.7 % 5.7 % 10.9 % Eosinophils (%) (Auto) 0.1 % 0.0 % 0.2 % Basophils (%) (Auto) 0.4 % 0.3 % 0.5 % Neutrophils # (Auto) 16.6 TH/MM3 16.7 TH/MM3 19.8 TH/MM3 Lymphocytes # (Auto) 2.3 TH/MM3 2.6 TH/MM3 2.4 TH/MM3 Monocytes # (Auto) 1.6 TH/MM3 1.2 TH/MM3 2.7 TH/MM3 Eosinophils # (Auto) 0.0 TH/MM3 0.0 TH/MM3 0.1 TH/MM3 Basophils # (Auto) 0.1 TH/MM3 0.1 TH/MM3 0.1 TH/MM3 CBC Comment AUTO DIFF AUTO DIFF AUTO DIFF Differential Total Cells 100 100 100 Counted Neutrophils % (Manual) 81 % 75 % 65 % Band Neutrophils % 6 % 6 % 14 % Lymphocytes % 6 % 11 % 11 % Monocytes % 5 % 5 % 4 % Neutrophils # (Manual) 18.3 TH/MM3 17.1 TH/MM3 21.4 TH/MM3 Metamyelocytes 1 % 2 % 6 % Myelocytes 1 % Differential Comment FINAL DIFF FINAL DIFF FINAL DIFF MANUAL MANUAL MANUAL Platelet Estimate NORMAL NORMAL NORMAL Platelet Morphology Comment NORMAL NORMAL NORMAL Keratocytes OCC Basophils % 1 % Nucleated Red Blood Cells 1 /100 WBC Toxic Granulation 1+ Laboratory Tests Test 05/15/16 05/16/16 05/16/16 05/17/16 19:10 03:58 16:25 03:23 Potassium Level 4.2 MEQ/L 4.5 MEQ/L 4.4 MEQ/L 4.2 MEQ/L Sodium Level 146 MEQ/L 145 MEQ/L 148 MEQ/L Chloride Level 109 MEQ/L 110 MEQ/L 112 MEQ/L Carbon Dioxide Level 20.6 MEQ/L 21.3 MEQ/L 22.0 MEQ/L Anion Gap 16 MEQ/L 14 MEQ/L 14 MEQ/L Blood Urea Nitrogen 45 MG/DL 68 MG/DL 78 MG/DL Creatinine 2.48 MG/DL 3.88 MG/DL 4.80 MG/DL Estimat Glomerular Filtration 32 ML/MIN 19 ML/MIN 15 ML/MIN Rate Random Glucose 199 MG/DL 243 MG/DL 179 MG/DL Calcium Level 8.1 MG/DL 7.6 MG/DL 7.3 MG/DL Magnesium Level 2.2 MG/DL 2.3 MG/DL Total Bilirubin 1.0 MG/DL 0.7 MG/DL 0.6 MG/DL Aspartate Amino Transf 334 U/L 2953 U/L 1869 U/L (AST/SGOT) Alanine Aminotransferase 189 U/L 1086 U/L 998 U/L (ALT/SGPT) Alkaline Phosphatase 52 U/L 55 U/L 48 U/L Total Protein 5.7 GM/DL 6.1 GM/DL 5.4 GM/DL Albumin 2.5 GM/DL 2.5 GM/DL 2.2 GM/DL Ammonia 32 MCMOL/L Protein Corrected Calcium 8.2 MG/DL Microbiology Date/Time Procedure Status Source Growth 05/16/16 07:40 Urine Culture - Preliminary Resulted Urine Catheterized Urine NO GROWTH IN 24 HOURS. 05/16/16 16:20 Aerobic Blood Culture - Preliminary Resulted Blood Peripheral NO GROWTH IN 1 DAY 05/16/16 16:20 Anaerobic Blood Culture - Preliminary Resulted Blood Peripheral NO GROWTH IN 1 DAY 05/16/16 16:25 Aerobic Blood Culture - Preliminary Resulted Blood Peripheral NO GROWTH IN 1 DAY 05/16/16 16:25 Anaerobic Blood Culture - Preliminary Resulted Blood Peripheral NO GROWTH IN 1 DAY 05/16/16 17:20 Gram Stain - Final Resulted Sputum Endotracheal 05/16/16 17:20 Sputum Culture Resulted Sputum Endotracheal Pending Imaging Last Impressions Chest X-Ray 05/17/16 0600 Signed Impressions: Service Date/Time: Tuesday, May 17, 2016 04:05 - CONCLUSION: No significant change. Minimal basilar atelectasis. Low Johnson MD Head CT 05/16/16 0000 Signed Impressions: Service Date/Time: Monday, May 16, 2016 08:30 - CONCLUSION: Suspected bilateral basal ganglia calcifications are unchanged. No evidence of hemorrhage, edema, mass or mass effect. Stephen Quintanilla MD Brain MRI 05/16/16 0000 Signed Impressions: Service Date/Time: Monday, May 16, 2016 15:46 - CONCLUSION: 1. Small punctate areas of white matter infarction without cortical extension or hemorrhage. There is no significant mass effect. 2. Bilateral basal ganglia infarcts measuring 1 cm Bobby Lamas MD Abdomen/Pelvis CT 05/16/16 0000 Signed Impressions: Service Date/Time: Monday, May 16, 2016 08:39 - CONCLUSION: There are large areas of hemorrhage including the left retroperitoneum and psoas muscle, within the mesentery and a smaller area in the right psoas muscle. They don't appear to be related to the abdominal aorta or the internal iliac arteries. There is a small focal collection hemorrhage adjacent to the left external iliac artery as it enters the pelvis, but I don't believe that is related to the large amount of hemorrhage seen elsewhere. The areas of hemorrhage are large and multi-focal. Stephen Quintanilla MD Upper Extremity Ultrasound 05/10/16 0000 Signed Impressions: Service Date/Time: Tuesday, May 10, 2016 09:44 - CONCLUSION: Occlusive thrombus in the right cephalic vein. Otherwise negative Shahid Sin MD Lower Extremity Ultrasound 05/10/16 0000 Signed Impressions: Service Date/Time: Tuesday, May 10, 2016 09:20 - CONCLUSION: Occlusive thrombus right posterior tibial vein. Otherwise negative with negative left lower extremity Shahid Sin MD CT Angiography 05/06/16 0000 Signed Impressions: Service Date/Time: Saturday, May 07, 2016 00:04 - CONCLUSION: 1. Lobar consolidation bilaterally in the lower lobes. 2. Negative for pulmonary embolism. Michael Colbert MD Physical Exam GENERAL: Obese AAM patient, in no apparent distress. SKIN: No rashes, ecchymoses or lesions. Cool and dry. HEAD: Atraumatic. Normocephalic. No temporal or scalp tenderness. EYES: Pupils equal round and reactive. Extraocular motions intact. No scleral icterus. No injection or drainage. ENT: Large neck, Intubated NECK: Trachea midline. Supple, nontender, no meningeal signs. CARDIOVASCULAR: HS audible. RESPIRATORY: Breath sounds equal bilaterally decreased in the bases. GASTROINTESTINAL: Abdomen soft, non-tender, nondistended. Obese MUSCULOSKELETAL: Extremities without clubbing, cyanosis, or edema. NEUROLOGICAL: Sedated Psych: could not be assessed IV line sites with no e/o infection. Assessment & Plan Remarks SIRS possible Sepsis (fever, tachycardia, hypotension). Given CT findings and clinical picture Retroperitoneal hematoma with reactive changes and hemorrhagic shock related hypotension are more likely. Aspiration Pneumonia Acute metabolic encephalopathy Acute resp failure on BiPAP, component of STU Acute kidney injury: prerenal from hemodynamic changes, chronic HTN related. DM2 uncontrolled: stress as additional factor. CAD non ischemic cardiomyopathy Anemia: acute due to Retroperitoneal bleed. Receiving blood transfusions. Recs: Continue Cefepime IV (dose changed to HD dose by me) Continue Flagyl change to oral. Follow cultures Follow clinically CT A/P images reviewed by me. d/w Tracy Carter MD May 17, 2016 13:08
[2016-05-17] MEDS ORDERED: DILTIAZEM HCL 25 MG/5 ML VIAL IVP ONE (13:45)
[2016-05-17] MEDS ORDERED: TERBUTALINE INJ 1 MG/ML AMP SQ PRN (13:45)
[2016-05-17] MEDS: metroNIDAZOLE 500 MG TAB PO/NG SCH ×2 (14:00→21:59)
[2016-05-17] MEDS ORDERED: DILTIAZEM INJ 125 MG in SODIUM CHLORIDE 0.9% INJ 100 ML IV SCH (14:00)
[2016-05-17] MEDS ORDERED: CALCIUM CHLORIDE 10% SOLN 1 GRAM/10 ML SYR ONE ×2 (17:02→17:57)
[2016-05-17] MEDS ORDERED: SODIUM BICARBONATE 8.4% INJ 50 ML ONE ×2 (17:02→17:42)
[2016-05-17] MEDS ORDERED: EPINEPHrine HCL (1:10,000) 1 MG/10 ML SYRINGE ONE (17:03)
[2016-05-17] MEDS ORDERED: DOPamine INJ PREMIX 500 ML ONE (17:03)
[2016-05-17] MEDS ORDERED: EPINEPHrine 2 MG/D5W 250 ML IV SCH ×4 (17:04→19:30)
[2016-05-17 17:28] LABS: ANION GAP 12 MEQ/L (5-15); BICARBONATE 22.1 MEQ/L (21.0-32.0); BLOOD UREA NITROGEN 70 MG/DL (7-18); CHLORIDE 110 MEQ/L (98-107); GLOMERULAR FILTRATION RATE 14 ML/MIN (>89); POTASSIUM 4.5 MEQ/L (3.5-5.1); SODIUM (NA) 144 MEQ/L (136-145)
[2016-05-17 17:34] LABS: BLOOD GAS BASE EXCESS -12.8 mmol/L (-2-2); BLOOD GAS CARBOXYHEMOGLOBIN 1.1 % (0-4); BLOOD GAS HCO3 14 mmol/L (22-26); BLOOD GAS METHEMOGLOBIN 1.9 % (0-2); BLOOD GAS O2 HGB SATURATION 95 % (90-100); BLOOD GAS OXYGEN CONTENT 9.9 Vol % (12.0-20.0); BLOOD GAS PCO2 41 mmHg (38-42); BLOOD GAS PO2 144 mmHg (61-120); BLOOD GAS TOTAL HGB 7.2 G/DL (12.0-16.0); CRITICAL VALUE YES; DRAW SITE ART LINE; FIO2 100 %; OXYGEN DEVICE VENTILATOR; STAT YES; TEMP CORR TO 98.6; VENT SETTINGS AC/16/650/PEEP8
[2016-05-17 17:35] LABS: ALKALINE PHOSPHATASE 72 U/L (45-117); ALT (GPT) 1074 U/L (12-78); AST (GOT) 1379 U/L (15-37); TOTAL BILIRUBIN ADULT 0.9 MG/DL (0.2-1.0)
[2016-05-17] MEDS ORDERED: SODIUM BICARBONATE 8.4% INJ 50 MEQ/50 ML SYR ONE (17:44)
--- NOTE | 2016-05-17 17:45 | PD.PROCEDR ---
Procedure Note Procedure REASON FOR PROCEDURE Invasive blood pressure monitoring PROCEDURE PERFORMED Right femoral artery line CONSENT Emergency procedure ARTERIAL LINE PROCEDURE The patient was placed in supine, The area was exposed and cleansed with ChloraPrep, times two. The site exposed, under sterile conditions including cap , face mask, sterile gown, and sterile gloves. On single attempt, the introducer needle was inserted with negative pressure in syringe and arterial flash was obtained. The guide wire was then advanced without any restriction and the needle was removed. The dilator was used without any complications. Using Seldinger technique the arterial catheter was advanced over the guide wire and guide wire was removed. Good arterial wave form observed. Arterial line was secured to the skin with two interrupted 2.0 silk sutures. The area was bandaged with sterile see-through central line bandage. RADIOLOGICAL DATA Ultrasound guidance was used to locate R femoral artery COMPLICATIONS: No apparent complications ESTIMATED BLOOD LOSS: Less than 5 cc. Tahmina Kelsey MD May 17, 2016 17:45
[2016-05-17 17:48] LABS: AUTOMATED NEUTROPHIL # 26.7 TH/MM3 (1.8-7.7); BASOPHIL # 0.2 TH/MM3 (0-0.2); BASOPHIL % 0.7 % (0.0-2.0); EOSINOPHIL % 0.1 % (0.0-4.0); LYMPH % 19.9 % (9.0-44.0); LYMPHOCYTE # 7.1 TH/MM3 (1.0-4.8); MEAN CELL VOLUME 88.7 FL (80.0-100.0); MEAN CORPUSCULAR HEMOGLOBIN 28.5 PG (27.0-34.0); MEAN CORPUSCULAR HGB CONC 32.2 % (32.0-36.0); MONO % 4.6 % (0.0-8.0); NEUT % 74.7 % (16.0-70.0); PLATELET COUNT 342 TH/MM3 (150-450); RED CELL DISTRIBUTION WIDTH 16.1 % (11.6-17.2); WHITE BLOOD COUNT 35.7 TH/MM3 (4.0-11.0)
[2016-05-17 17:57] LABS: APTT (PATIENT) 39.5 SEC (24.3-30.1); INTERNATIONAL NORMALIZED RATIO 1.3 RATIO; PROTHROMBIN TIME - PATIENT 14.8 SEC (9.8-11.6)
[2016-05-17 17:58] LABS: BLOOD GAS CARBOXYHEMOGLOBIN 1.4 % (0-4); BLOOD GAS HCO3 19 mmol/L (22-26); BLOOD GAS METHEMOGLOBIN 1.7 % (0-2); BLOOD GAS O2 HGB SATURATION 86 % (90-100); BLOOD GAS OXYGEN CONTENT 8.2 Vol % (12.0-20.0); BLOOD GAS PCO2 40 mmHg (38-42); BLOOD GAS PO2 69 mmHg (61-120); BLOOD GAS TOTAL HGB 6.7 G/DL (12.0-16.0); CRITICAL VALUE YES; FIO2 100 %; OXYGEN DEVICE VENTILATOR; TEMP CORR TO 98.6; VENT SETTINGS AC/20/650/PEEP8
[2016-05-17 17:59] LABS: DRAW SITE ART LINE; STAT YES
[2016-05-17] MEDS ORDERED: MIDAZOLAM HCL 5 MG/ML VIAL (1 ML) ONE (17:59)
[2016-05-17] MEDS ORDERED: SODIUM BICARBONATE 8.4% INJ 100 MEQ in DEXTROSE 5% IN WATE 1000ML INJ 1,000 ML IV SCH ×2 (18:00)
[2016-05-17 18:03] LABS: HEMO FLAGS AUTO DIFF
[2016-05-17 18:05] LABS: HEMATOCRIT 21.2 % (39.0-51.0)
--- NOTE | 2016-05-17 18:18 | PD.ONC.PN ---
Subjective Subjective Remarks Afebrile overnight. Pt currently intubated, supported with vasopressive medications. He was noted to be bradycardic in the 40's and hypotensive with a MAP of low 60's. He is currently getting 3 units of PRBC's infused. His hgb dropped by 1 gram per dL in the past [address] Kelsey at bedside. There is concern for more bleeding. Objective Data Date Time Temp Pulse Resp B/P Pulse Ox O2 Delivery O2 Flow Rate FiO2 05/17/16 14:57 97 50 05/17/16 12:00 50 05/17/16 12:00 140 05/17/16 12:00 99.0 140 31 123/60 95 05/17/16 11:12 94 50 05/17/16 10:00 134 05/17/16 08:00 125 05/17/16 08:00 99.7 125 27 116/71 100 05/17/16 08:00 50 05/17/16 07:58 99.6 05/17/16 07:34 100 50 05/17/16 07:00 100 Mechanical Ventilator 50 05/17/16 06:00 129 05/17/16 04:00 98.9 123 25 115/63 100 05/17/16 04:00 123 05/17/16 04:00 60 05/17/16 03:50 100 50 05/17/16 02:00 125 05/17/16 00:35 100 60 05/17/16 00:00 87 05/17/16 00:00 98.6 87 30 108/52 100 05/17/16 00:00 60 05/16/16 22:06 100 60 05/16/16 22:00 104 05/16/16 20:02 99 60 05/16/16 20:00 60 05/16/16 20:00 98.6 84 29 123/91 100 05/16/16 20:00 84 05/16/16 19:00 94 Mechanical Ventilator 60 05/16/16 18:00 109 05/16/16 18:00 60 05/17/16 05/17/16 05/17/16 07:00 15:00 23:00 Intake Total 3100 ml Output Total 0 ml 3000 ml Balance 3100 ml -3000 ml Result Diagram: 05/17/16 1600 05/17/16 1600 Laboratory Results Laboratory Tests Test 05/16/16 05/17/16 05/17/16 05/17/16 18:06 02:40 03:23 03:35 Blood Gas Puncture Site RT RADIAL Blood Gas Patient Temperature 98.6 Blood Gas HCO3 18 mmol/L Blood Gas Base Excess -5.7 mmol/L Blood Gas Oxygen Saturation 92 % Arterial Blood pH 7.39 Arterial Blood Partial 31 mmHg Pressure CO2 Arterial Blood Partial 79 mmHg Pressure O2 Arterial Blood Oxygen Content 11.5 Vol % Arterial Blood 1.8 % Carboxyhemoglobin Arterial Blood Methemoglobin 1.3 % Blood Gas Hemoglobin 8.9 G/DL Oxygen Delivery Device VENTILATOR Blood Gas Ventilator Setting A/C 650/16/12 PEEP Blood Gas Inspired Oxygen 60 % White Blood Count 25.2 TH/MM3 Red Blood Count 3.06 MIL/MM3 Hemoglobin 8.7 GM/DL Hematocrit 27.9 % Mean Corpuscular Volume 91.1 FL Mean Corpuscular Hemoglobin 28.5 PG Mean Corpuscular Hemoglobin 31.3 % Concent Red Cell Distribution Width 16.8 % Platelet Count 273 TH/MM3 Mean Platelet Volume 9.4 FL Neutrophils (%) (Auto) 78.8 % Lymphocytes (%) (Auto) 9.6 % Monocytes (%) (Auto) 10.9 % Eosinophils (%) (Auto) 0.2 % Basophils (%) (Auto) 0.5 % Neutrophils # (Auto) 19.8 TH/MM3 Lymphocytes # (Auto) 2.4 TH/MM3 Monocytes # (Auto) 2.7 TH/MM3 Eosinophils # (Auto) 0.1 TH/MM3 Basophils # (Auto) 0.1 TH/MM3 CBC Comment AUTO DIFF Differential Total Cells 100 Counted Neutrophils % (Manual) 65 % Band Neutrophils % 14 % Lymphocytes % 11 % Monocytes % 4 % Neutrophils # (Manual) 21.4 TH/MM3 Metamyelocytes 6 % Nucleated Red Blood Cells 1 /100 WBC Differential Comment FINAL DIFF MANUAL Toxic Granulation 1+ Platelet Estimate NORMAL Platelet Morphology Comment NORMAL Sodium Level 148 MEQ/L Potassium Level 4.2 MEQ/L Chloride Level 112 MEQ/L Carbon Dioxide Level 22.0 MEQ/L Anion Gap 14 MEQ/L Blood Urea Nitrogen 78 MG/DL Creatinine 4.80 MG/DL Estimat Glomerular Filtration 15 ML/MIN Rate Random Glucose 179 MG/DL Calcium Level 7.3 MG/DL Protein Corrected Calcium 8.2 MG/DL Magnesium Level 2.3 MG/DL Total Bilirubin 0.6 MG/DL Aspartate Amino Transf 1869 U/L (AST/SGOT) Alanine Aminotransferase 998 U/L (ALT/SGPT) Alkaline Phosphatase 48 U/L Total Protein 5.4 GM/DL Albumin 2.2 GM/DL Prothrombin Time 13.9 SEC Prothromb Time International 1.2 RATIO Ratio Test 05/17/16 05/17/16 05/17/16 16:00 17:20 17:31 Hemoglobin 7.2 GM/DL Sodium Level 144 MEQ/L Potassium Level 4.5 MEQ/L Chloride Level 110 MEQ/L Carbon Dioxide Level 22.1 MEQ/L Anion Gap 12 MEQ/L Blood Urea Nitrogen 70 MG/DL Creatinine 5.05 MG/DL Estimat Glomerular Filtration 14 ML/MIN Rate Random Glucose 212 MG/DL Calcium Level 7.5 MG/DL Total Bilirubin 0.9 MG/DL Aspartate Amino Transf 1379 U/L (AST/SGOT) Alanine Aminotransferase 1074 U/L (ALT/SGPT) Alkaline Phosphatase 72 U/L Total Protein 5.7 GM/DL Albumin 2.5 GM/DL Blood Gas Puncture Site ART LINE Blood Gas Patient Temperature 98.6 Blood Gas HCO3 14 mmol/L Blood Gas Base Excess -12.8 mmol/L Blood Gas Oxygen Saturation 95 % Arterial Blood pH 7.17 Arterial Blood Partial 41 mmHg Pressure CO2 Arterial Blood Partial 144 mmHg Pressure O2 Arterial Blood Oxygen Content 9.9 Vol % Arterial Blood 1.1 % Carboxyhemoglobin Arterial Blood Methemoglobin 1.9 % Blood Gas Hemoglobin 7.2 G/DL Oxygen Delivery Device VENTILATOR Blood Gas Ventilator Setting AC/16/650/PEEP8 Blood Gas Inspired Oxygen 100 % Blood Type B POSITIVE Crossmatch Leukocyte-Reduced Red Blood Cells Blood Bank Comment Culture Results Microbiology Date/Time Procedure Status Source Growth 05/16/16 07:40 Urine Culture - Preliminary Resulted Urine Catheterized Urine NO GROWTH IN 24 HOURS. 05/16/16 16:20 Aerobic Blood Culture - Preliminary Resulted Blood Peripheral NO GROWTH IN 1 DAY 05/16/16 16:20 Anaerobic Blood Culture - Preliminary Resulted Blood Peripheral NO GROWTH IN 1 DAY 05/16/16 16:25 Aerobic Blood Culture - Preliminary Resulted Blood Peripheral NO GROWTH IN 1 DAY 05/16/16 16:25 Anaerobic Blood Culture - Preliminary Resulted Blood Peripheral NO GROWTH IN 1 DAY 05/16/16 17:20 Gram Stain - Final Resulted Sputum Endotracheal 05/16/16 17:20 Sputum Culture - Preliminary Resulted Gram Negative Oswaldo Imaging Studies Last 24 hours Impressions Chest X-Ray 05/17/16 0600 Signed Impressions: Service Date/Time: Tuesday, May 17, 2016 04:05 - CONCLUSION: No significant change. Minimal basilar atelectasis. Low Johnson MD Chest X-Ray 05/17/16 0000 Signed Impressions: Service Date/Time: Tuesday, May 17, 2016 11:14 - CONCLUSION: 1. Right Vas-Cath present. Tip not visualized but appears to pass into right atrium. Basal airspace disease. Marek Bowers MD ADDENDUM: There is also a left central line which is seen in satisfactory position traversing the left brachiocephalic vein and just into the superior vena cava. Marek Bowers MD Administered Medications Medications (Trade) Dose Ordered Sig/Isabelle Route PRN Reason Start Time Stop Time Status Last Admin Dose Admin IV Flush (NS Flush) 2 ml BID IV FLUSH 05/05/16 21:00 05/17/16 07:41 Acetaminophen (Tylenol) 650 mg Q6H PRN PO PAIN 1-10 AND/OR FEVER >101F 05/05/16 17:15 05/15/16 11:55 Artificial Tears (Tears Naturale Opth Soln) 1 drop TID EACH EYE 05/05/16 18:00 05/17/16 09:00 Docusate Sodium (Colace) 100 mg BID PO 05/05/16 21:00 05/17/16 09:00 Miscellaneous Information 1 Q361D XX 05/05/16 17:15 05/05/16 17:15 Chlorhexidine Gluconate (Chlorhexidine 2% Cloth) Taper DAILY@04 TOP 05/06/16 04:00 05/02/17 03:59 05/17/16 04:00 Aspirin (Aspirin Chew) 81 mg DAILY CHEW 05/06/16 09:00 Hold 05/15/16 08:30 Atorvastatin Calcium (Lipitor) 20 mg DAILY PO 05/06/16 09:00 Hold 05/15/16 08:32 Sennosides (Senokot) 17.2 mg Q12H PO 05/06/16 18:00 05/17/16 05:28 Labetalol HCl (Trandate Inj) 20 mg Q2HR PRN IV PUSH SBP greater 160 mm Hg 05/06/16 23:30 05/15/16 14:41 Insulin Human Regular (NovoLIN R SUPPLEMENTAL SCALE) 1 Q6HR SQ 05/09/16 00:00 05/17/16 12:45 Metoprolol Tartrate (Lopressor) 25 mg Q8HR PO 05/13/16 22:00 Hold 05/15/16 14:44 Acetaminophen (Ofirmev Inj) 1,000 mg Q6H PRN IV fever 05/13/16 18:30 05/13/16 19:23 Nifedipine (Procardia Xl) 90 mg DAILY PO 05/14/16 09:00 Hold 05/15/16 08:30 Furosemide (Lasix) 20 mg BID@09,18 PO 05/15/16 18:00 Hold 05/15/16 17:22 Chlorhexidine Gluconate 15 ml 15 ml BID@08,20 MT 05/16/16 20:00 05/16/16 21:02 Propofol (Diprivan 1000 Mg/100ml Inj) 100 ml @ 0 mls/hr TITRATE IV 05/16/16 17:00 05/17/16 11:10 Metoprolol Tartrate (Lopressor Inj) 5 mg Q6H IV PUSH 05/17/16 07:00 05/17/16 12:44 Albumin Human 25 gm 25 gm Q12H IV 05/17/16 08:00 05/17/16 07:41 Sodium Chloride 1,000 ml @ 0 mls/hr Q0M PRN IV For Prime & Rinse Back 05/17/16 12:13 05/17/16 12:27 Sodium Chloride (NS 1000 ml Inj) 1,000 ml @ 200 mls/hr Q5H PRN IV WITH DIALYSIS 05/17/16 12:13 05/17/16 12:28 IV Flush (NS Flush) 5 ml UNSCH PRN IVF WITH DIALYSIS 05/17/16 12:15 05/17/16 12:29 Heparin Sodium (Porcine) (Heparin Inj) UNSCH PRN .XX WITH DIALYSIS 05/17/16 12:15 05/17/16 12:28 Gentamicin Sulfate (Gentamicin (Dialysis) Inj) 20 mg UNSCH PRN IV WITH DIALYSIS 05/17/16 12:15 05/17/16 12:28 Objective Remarks GENERAL: Older male, lying in bed on the ventilator. He is acutely ill and is currently receiving PRBC's, fluids, on levophed. SKIN: Warm and dry. HEAD: Normocephalic. EYES: No injection or drainage. NECK: Supple, trachea midline. No JVD or lymphadenopathy. CARDIOVASCULAR: +S1/S2. RESPIRATORY: Mechanically ventilated. GASTROINTESTINAL: Abdomen soft, non-tender, nondistended. EXTREMITIES: 2+ edema. SCD's in place. NEUROLOGICAL: Difficult to assess. Pt intubated. Sedation recently stopped post hypotensive episode. Assessment/Plan Problem List: (1) Retroperitoneal bleed Status: Acute Plan: -- Lg areas of hemorrhage involving the left peritoneum psoas muscle, the mesentery as well as area adjacent to the left external iliac artery. -- Concern that pt continues to bleed. (2) Anemia Status: Acute Plan: -- Due to intra-abdominal bleeding. -- Check CBC q12h. -- Transfuse to keep Hgb greater than 8. -- Daily coags. (3) Superficial thrombosis of right lower extremity Status: Acute Plan: -- No IVC filter since this is superficial. -- No anticoagulation due to high risk of bleeding. Assessment 62 y/o male who presented to the ED with chest pain and was found to be in acute STEMI. Plan 1. Continue CBC q12h. 2. Agree with likelihood of acute bleeding. Recommend transfuse to keep Hgb greater than 8. 3. Once he is stable we can determine if he would be a candidate for IVC filter. 4. Daily coags. 5. Supportive care. Attending Statement The exam, history, and the medical decision-making described in the above note were completed with the assistance of the mid-level provider. I reviewed and agree with the findings presented. I attest that I had a [id number] encounter with the patient on the same day, and personally performed and documented my assessment and findings in the medical record. Transfuse pRBC. continue supportive care. check daily coags and fibrinogen. check CBC q8h. Problem Qualifiers (1) Anemia: Jessica Canas May 17, 2016 18:18 Carmelo Veras MD May 18, 2016 00:11
[2016-05-17 18:49] LABS: BANDS 3 % (0-6); CORRECTED NUCLEATED RBC 4 /100 WBC (0-0); METAMYELOCYTES 3 % (0-1); MYELOCYTES 1 % (0-0); NEUTROPHIL # MANUAL DIFF 28.6 TH/MM3 (1.8-7.7); POLYS (SEG NEUTROPHILS) 73 % (16-70); WBC DIFF SAMPLE 100
[2016-05-17 18:50] LABS: OVALOCYTES 1+ (NORMAL); PLATELET ESTIMATE SMEAR NORMAL (NORMAL); PLATELET MORPHOLOGY NORMAL (NORMAL); SCAN/DIFF FINAL DIFF MANUAL
[2016-05-17] MEDS ORDERED: CALCIUM CHLORIDE INJ 2 GM in DEXTROSE 5% IN WATER 100ML INJ 100 ML IV ONE ×2 (20:00)
[2016-05-17] MEDS: DOPamine 800 MG/D5W PREMIX 500 ML IV SCH (21:57)
[2016-05-17] MEDS: MIDAZOLAM 100 MG/NS 100 ML DRIP Premix IV SCH (21:58)
[2016-05-17] MEDS: NOREPINEPHRINE 4 MG/D5W 250 ML IV SCH (23:16)
[2016-05-18] VITALS (20 sets, daily range): BP systolic 128–162; BP diastolic 70–93; PULSE 108–135; RESP 24–34; TEMP 99.1–103; O2SAT 93–98
[2016-05-18] MEDS: INSULIN NovoLIN REGULAR SUPPLEMENTAL SCALE SQ SCH ×4 (00:20→18:30)
[2016-05-18] MEDS: METOPROLOL TARTRATE 5 MG/5 ML VIAL IV PUSH SCH ×2 (01:00→07:00)
[2016-05-18] MEDS: NOREPINEPHRINE 4 MG/D5W 250 ML IV SCH (01:23)
[2016-05-18] MEDS: DOPamine 800 MG/D5W PREMIX 500 ML IV SCH (02:20)
[2016-05-18 03:15] LABS: AUTOMATED NEUTROPHIL # 23.9 TH/MM3 (1.8-7.7); BASOPHIL # 0.3 TH/MM3 (0-0.2); EOSINOPHIL % 0.1 % (0.0-4.0); HEMATOCRIT 27.6 % (39.0-51.0); LYMPH % 8.9 % (9.0-44.0); LYMPHOCYTE # 2.5 TH/MM3 (1.0-4.8); MEAN CELL VOLUME 85.5 FL (80.0-100.0); MEAN CORPUSCULAR HEMOGLOBIN 28.2 PG (27.0-34.0); MONO % 5.3 % (0.0-8.0); NEUT % 84.7 % (16.0-70.0); PLATELET COUNT 330 TH/MM3 (150-450); RED BLOOD COUNT 3.23 MIL/MM3 (4.50-5.90); RED CELL DISTRIBUTION WIDTH 16.6 % (11.6-17.2); WHITE BLOOD COUNT 28.3 TH/MM3 (4.0-11.0)
[2016-05-18 03:24] LABS: HEMO FLAGS AUTO DIFF
[2016-05-18] MEDS: RESP: ALBUTEROL 2.5 MG/IPRATROPIUM 0.5 MG NEB (SCH) NEB ×4 (04:00→20:09)
[2016-05-18] MEDS: CHLORHEXIDINE GLUCONATE 2 % 1 PACK (2 CLOTHS) TOP SCH (04:00)
[2016-05-18 04:18] LABS: ALKALINE PHOSPHATASE 77 U/L (45-117); ALT (GPT) 1472 U/L (12-78); ANION GAP 15 MEQ/L (5-15); AST (GOT) 2711 U/L (15-37); BICARBONATE 22.1 MEQ/L (21.0-32.0); BLOOD UREA NITROGEN 85 MG/DL (7-18); CHLORIDE 105 MEQ/L (98-107); GLOMERULAR FILTRATION RATE 12 ML/MIN (>89); POTASSIUM 4.6 MEQ/L (3.5-5.1); SODIUM (NA) 142 MEQ/L (136-145)
--- NOTE | 2016-05-18 05:28 | RADRPT ---
EXAM DATE/TIME: 05/18/2016 02:51 [facility] COMPARISON: CHEST SINGLE AP, May 17, 2016, 11:14. INDICATIONS : Shortness of breath, possible pulmonary disease. MEDICAL HISTORY : Hypertension. Diabetes mellitus type II. Cardiovascular disease. SURGICAL HISTORY : None. ENCOUNTER: Subsequent ACUITY: 2 weeks PAIN SCORE: Non-responsive. LOCATION: Bilateral chest FINDINGS: Effusions and basilar consolidation have decreased considerably. However, there is some new consolida tion in the right upper lobe. No pneumothorax seen. Heart size stable, mildly enlarged. Endotracheal tube tip is about 4 cm above the kendal. There is a nasogastric tube coursing into the s tomach. There is a left internal jugular central venous catheter with tip in the superior vena cava, new. Right IJ cordis remains in place, tip at atriocaval junction. CONCLUSION: 1. Decreasing basilar consolidation and effusions. 2. Developing infiltrate in the right upper lobe. 3. New left IJ central venous catheter with tip in the superior vena cava. No pneumothorax. Other maria siabel es and tubes unchanged as above. Low Johnson MD on May 18, 2016 at 5:24 Board Certified Radiologist. This report was verified electronically.
[2016-05-18] MEDS: SENNOSIDES 8.6 MG TAB PO SCH ×2 (06:09→18:30)
[2016-05-18] MEDS: metroNIDAZOLE 500 MG TAB PO/NG SCH (06:09)
[2016-05-18] MEDS ORDERED: DOPAMINE IV SCH (07:00)
[2016-05-18] MEDS ORDERED: SODIUM CHLORID 0.9% IV SCH (07:00)
[2016-05-18] MEDS: SODIUM BICARBONATE 8.4% INJ 100 MEQ in WATER STERILE FOR INJ 1,000 ML IV SCH ×2 (07:00→20:31)
[2016-05-18] MEDS: NOREPINEPHRINE INJ 4 MG in SODIUM CHLOR 0.9% 250 ML INJ 246 ML IV SCH ×6 (07:00→20:31)
[2016-05-18] MEDS ORDERED: VANCOMYCIN INJ 1,200 MG in SODIUM CHLOR 0.9% 250 ML INJ 250 ML IV SCH (07:00)
[2016-05-18 07:01] LABS: BANDS 9 % (0-6); CORRECTED NUCLEATED RBC 3 /100 WBC (0-0); METAMYELOCYTES 1 % (0-1); MYELOCYTES 4 % (0-0); NEUTROPHIL # MANUAL DIFF 25.8 TH/MM3 (1.8-7.7); PLATELET ESTIMATE SMEAR NORMAL (NORMAL); POLYS (SEG NEUTROPHILS) 77 % (16-70); WBC DIFF SAMPLE 100
[2016-05-18 07:02] LABS: PLATELET MORPHOLOGY NORMAL (NORMAL); SCAN/DIFF FINAL DIFF MANUAL
[2016-05-18] MEDS: ALBUMIN HUMAN 25% 25 GM/100 ML BAGP IV SCH ×2 (08:00→20:30)
[2016-05-18] MEDS ORDERED: VANCOMYCIN INJ 1,750 MG in SODIUM CHLORID 0.9% 500 ML INJ 500 ML IV STA (08:00)
[2016-05-18] MEDS ORDERED: MISCELLANEOUS PHARMACY INFORMATION XX PRN (08:15)
[2016-05-18] MEDS ORDERED: ASP: Other exception documentation: ( ) XX PRN (08:15)
--- NOTE | 2016-05-18 08:19 | HHI.IDPN ---
Subjective Subjective Remarks Mr. Short is a 61-year-old male who was admitted on May 05, 2016. Patient's past medical history significant for hypertensive heart disease, hypertension, type 2 diabetes and spinal stenosis. Patient presented to [facility] on the day of admission with history of acute onset of diaphoresis chest pain and syncope. Post Cardiac cath a few days later patient now has retroperitoneal hematoma, IC bleed. ID following for possible sepsis. Overnight events reviewed. Bradycardia yesterday. Fevers Temp 103 F Line changed yday. Left IJ, Right IJ Vascath sites ok. Right femoral arterial line (placed in code). No rash No diarrhea On high doses of Levophed and Vasopressin. Undergoing HD. Oliguric Antibiotics Cefepime IV Flagyl IV Lines Line sites with no e/o infection Past Medical History reviewed Allergies: Coded Allergies: Penicillin (Verified Allergy, Mild, "I GO CRAZY", 09/01/15) Objective . Vital Signs Date Time Temp Pulse Resp B/P Pulse Ox O2 Delivery O2 Flow Rate FiO2 05/18/16 06:00 119 05/18/16 04:02 93 100 05/18/16 04:00 124 05/18/16 04:00 101.2 124 24 133/75 97 153/82 05/18/16 04:00 100 05/18/16 02:00 129 05/18/16 01:06 93 100 05/18/16 00:00 103.0 135 32 162/70 94 147/81 05/18/16 00:00 100 05/18/16 00:00 135 05/17/16 22:08 95 100 05/17/16 22:00 140 05/17/16 20:00 100 05/17/16 20:00 102.5 122 28 136/69 96 05/17/16 20:00 132 05/17/16 19:25 96 100 05/17/16 19:00 99 Mechanical Ventilator 100 05/17/16 19:00 127 05/17/16 18:00 121 05/17/16 17:30 100 05/17/16 17:00 70/31 05/17/16 17:00 60 05/17/16 16:00 50 05/17/16 16:00 98.7 122 27 99/56 99 05/17/16 16:00 122 05/17/16 14:57 97 50 05/17/16 14:00 146 05/17/16 12:00 50 05/17/16 12:00 140 05/17/16 12:00 99.0 140 31 123/60 95 05/17/16 11:12 94 50 05/17/16 10:00 134 05/17/16 05/17/16 05/18/16 15:00 23:00 07:00 Intake Total 4510 ml 1864 ml Output Total 3000 ml 100 ml 175 ml Balance -3000 ml 4410 ml 1689 ml IV Total 3110 ml 1864 ml Albumin 100 ml Packed Cells 750 ml FFP 550 ml Output Urine Total 100 ml 175 ml Hemodialysis 3000 ml . Laboratory Tests Test 05/16/16 05/17/16 05/17/16 05/17/16 16:25 02:40 16:00 17:20 White Blood Count 20.6 TH/MM3 25.2 TH/MM3 35.7 TH/MM3 Red Blood Count 3.10 MIL/MM3 3.06 MIL/MM3 2.40 MIL/MM3 Hemoglobin 8.8 GM/DL 8.7 GM/DL 7.2 GM/DL 6.8 GM/DL Hematocrit 27.0 % 27.9 % 21.2 % Mean Corpuscular Volume 86.9 FL 91.1 FL 88.7 FL Mean Corpuscular Hemoglobin 28.5 PG 28.5 PG 28.5 PG Mean Corpuscular Hemoglobin 32.7 % 31.3 % 32.2 % Concent Red Cell Distribution Width 16.1 % 16.8 % 16.1 % Platelet Count 317 TH/MM3 273 TH/MM3 342 TH/MM3 Mean Platelet Volume 9.4 FL 9.4 FL 9.1 FL Neutrophils (%) (Auto) 81.2 % 78.8 % 74.7 % Lymphocytes (%) (Auto) 12.8 % 9.6 % 19.9 % Monocytes (%) (Auto) 5.7 % 10.9 % 4.6 % Eosinophils (%) (Auto) 0.0 % 0.2 % 0.1 % Basophils (%) (Auto) 0.3 % 0.5 % 0.7 % Neutrophils # (Auto) 16.7 TH/MM3 19.8 TH/MM3 26.7 TH/MM3 Lymphocytes # (Auto) 2.6 TH/MM3 2.4 TH/MM3 7.1 TH/MM3 Monocytes # (Auto) 1.2 TH/MM3 2.7 TH/MM3 1.6 TH/MM3 Eosinophils # (Auto) 0.0 TH/MM3 0.1 TH/MM3 0.0 TH/MM3 Basophils # (Auto) 0.1 TH/MM3 0.1 TH/MM3 0.2 TH/MM3 CBC Comment AUTO DIFF AUTO DIFF AUTO DIFF Differential Total Cells 100 100 100 Counted Neutrophils % (Manual) 75 % 65 % 73 % Band Neutrophils % 6 % 14 % 3 % Lymphocytes % 11 % 11 % 12 % Monocytes % 5 % 4 % 8 % Basophils % 1 % Neutrophils # (Manual) 17.1 TH/MM3 21.4 TH/MM3 28.6 TH/MM3 Metamyelocytes 2 % 6 % 3 % Differential Comment FINAL DIFF FINAL DIFF FINAL DIFF MANUAL MANUAL MANUAL Platelet Estimate NORMAL NORMAL NORMAL Platelet Morphology Comment NORMAL NORMAL NORMAL Nucleated Red Blood Cells 1 /100 WBC 4 /100 WBC Toxic Granulation 1+ Myelocytes 1 % Ovalocytes 1+ Test 05/18/16 03:08 White Blood Count 28.3 TH/MM3 Red Blood Count 3.23 MIL/MM3 Hemoglobin 9.1 GM/DL Hematocrit 27.6 % Mean Corpuscular Volume 85.5 FL Mean Corpuscular Hemoglobin 28.2 PG Mean Corpuscular Hemoglobin 33.0 % Concent Red Cell Distribution Width 16.6 % Platelet Count 330 TH/MM3 Mean Platelet Volume 8.8 FL Neutrophils (%) (Auto) 84.7 % Lymphocytes (%) (Auto) 8.9 % Monocytes (%) (Auto) 5.3 % Eosinophils (%) (Auto) 0.1 % Basophils (%) (Auto) 1.0 % Neutrophils # (Auto) 23.9 TH/MM3 Lymphocytes # (Auto) 2.5 TH/MM3 Monocytes # (Auto) 1.5 TH/MM3 Eosinophils # (Auto) 0.0 TH/MM3 Basophils # (Auto) 0.3 TH/MM3 CBC Comment AUTO DIFF Differential Total Cells 100 Counted Neutrophils % (Manual) 77 % Band Neutrophils % 9 % Lymphocytes % 5 % Monocytes % 4 % Neutrophils # (Manual) 25.8 TH/MM3 Metamyelocytes 1 % Myelocytes 4 % Nucleated Red Blood Cells 3 /100 WBC Differential Comment FINAL DIFF MANUAL Platelet Estimate NORMAL Platelet Morphology Comment NORMAL Laboratory Tests Test 05/16/16 05/17/16 05/17/16 05/17/16 16:25 03:23 16:00 17:20 Sodium Level 145 MEQ/L 148 MEQ/L 144 MEQ/L Potassium Level 4.4 MEQ/L 4.2 MEQ/L 4.5 MEQ/L Chloride Level 110 MEQ/L 112 MEQ/L 110 MEQ/L Carbon Dioxide Level 21.3 MEQ/L 22.0 MEQ/L 22.1 MEQ/L Anion Gap 14 MEQ/L 14 MEQ/L 12 MEQ/L Blood Urea Nitrogen 68 MG/DL 78 MG/DL 70 MG/DL Creatinine 3.88 MG/DL 4.80 MG/DL 5.05 MG/DL Estimat Glomerular Filtration 19 ML/MIN 15 ML/MIN 14 ML/MIN Rate Random Glucose 243 MG/DL 179 MG/DL 212 MG/DL Calcium Level 7.6 MG/DL 7.3 MG/DL 7.5 MG/DL Total Bilirubin 0.7 MG/DL 0.6 MG/DL 0.9 MG/DL Aspartate Amino Transf 2953 U/L 1869 U/L 1379 U/L (AST/SGOT) Alanine Aminotransferase 1086 U/L 998 U/L 1074 U/L (ALT/SGPT) Alkaline Phosphatase 55 U/L 48 U/L 72 U/L Ammonia 32 MCMOL/L Total Protein 6.1 GM/DL 5.4 GM/DL 5.7 GM/DL Albumin 2.5 GM/DL 2.2 GM/DL 2.5 GM/DL Protein Corrected Calcium 8.2 MG/DL Magnesium Level 2.3 MG/DL Troponin I 0.28 NG/ML Test 05/18/16 05/18/16 03:08 06:45 Sodium Level 142 MEQ/L Potassium Level 4.6 MEQ/L Chloride Level 105 MEQ/L Carbon Dioxide Level 22.1 MEQ/L Anion Gap 15 MEQ/L Blood Urea Nitrogen 85 MG/DL Creatinine 5.96 MG/DL Estimat Glomerular Filtration 12 ML/MIN Rate Random Glucose 442 MG/DL Calcium Level 8.5 MG/DL Magnesium Level 2.0 MG/DL Total Bilirubin 1.0 MG/DL Aspartate Amino Transf 2711 U/L (AST/SGOT) Alanine Aminotransferase 1472 U/L (ALT/SGPT) Alkaline Phosphatase 77 U/L Total Protein 5.8 GM/DL Albumin 2.5 GM/DL Lactic Acid Level 1.9 mmol/L Microbiology Date/Time Procedure Status Source Growth 05/16/16 07:40 Urine Culture - Preliminary Resulted Urine Catheterized Urine NO GROWTH IN 24 HOURS. 05/16/16 16:20 Aerobic Blood Culture - Preliminary Resulted Blood Peripheral NO GROWTH IN 1 DAY 05/16/16 16:20 Anaerobic Blood Culture - Preliminary Resulted Blood Peripheral NO GROWTH IN 1 DAY 05/16/16 16:25 Aerobic Blood Culture - Preliminary Resulted Blood Peripheral NO GROWTH IN 1 DAY 05/16/16 16:25 Anaerobic Blood Culture - Preliminary Resulted Blood Peripheral NO GROWTH IN 1 DAY 05/16/16 17:20 Gram Stain - Final Resulted Sputum Endotracheal 05/16/16 17:20 Sputum Culture - Preliminary Resulted Gram Negative [facility] Last Impressions Chest X-Ray 05/17/16 0600 Signed Impressions: Service Date/Time: Tuesday, May 17, 2016 04:05 - CONCLUSION: No significant change. Minimal basilar atelectasis. Low Johnson MD Head CT 05/16/16 0000 Signed Impressions: Service Date/Time: Monday, May 16, 2016 08:30 - CONCLUSION: Suspected bilateral basal ganglia calcifications are unchanged. No evidence of hemorrhage, edema, mass or mass effect. Stephen Quintanilla MD Brain MRI 05/16/16 0000 Signed Impressions: Service Date/Time: Monday, May 16, 2016 15:46 - CONCLUSION: 1. Small punctate areas of white matter infarction without cortical extension or hemorrhage. There is no significant mass effect. 2. Bilateral basal ganglia infarcts measuring 1 cm Bobby Lamas MD Abdomen/Pelvis CT 05/16/16 0000 Signed Impressions: Service Date/Time: Monday, May 16, 2016 08:39 - CONCLUSION: There are large areas of hemorrhage including the left retroperitoneum and psoas muscle, within the mesentery and a smaller area in the right psoas muscle. They don't appear to be related to the abdominal aorta or the internal iliac arteries. There is a small focal collection hemorrhage adjacent to the left external iliac artery as it enters the pelvis, but I don't believe that is related to the large amount of hemorrhage seen elsewhere. The areas of hemorrhage are large and multi-focal. Stephen Quintanilla MD Upper Extremity Ultrasound 05/10/16 0000 Signed Impressions: Service Date/Time: Tuesday, May 10, 2016 09:44 - CONCLUSION: Occlusive thrombus in the right cephalic vein. Otherwise negative Shahid Sin MD Lower Extremity Ultrasound 05/10/16 0000 Signed Impressions: Service Date/Time: Tuesday, May 10, 2016 09:20 - CONCLUSION: Occlusive thrombus right posterior tibial vein. Otherwise negative with negative left lower extremity Shahid Sin MD CT Angiography 05/06/16 0000 Signed Impressions: Service Date/Time: Saturday, May 07, 2016 00:04 - CONCLUSION: 1. Lobar consolidation bilaterally in the lower lobes. 2. Negative for pulmonary embolism. Michael Colbert MD Physical Exam GENERAL: Obese AAM patient, in no apparent distress. SKIN: No rashes, ecchymoses or lesions. Cool and dry. HEAD: Atraumatic. Normocephalic. No temporal or scalp tenderness. EYES: Pupils equal round and reactive. Extraocular motions intact. No scleral icterus. No injection or drainage. ENT: Large neck, Intubated NECK: Trachea midline. Supple, nontender, no meningeal signs. CARDIOVASCULAR: HS audible. RESPIRATORY: Breath sounds equal bilaterally decreased in the bases. GASTROINTESTINAL: Abdomen soft, non-tender, nondistended. Obese MUSCULOSKELETAL: Extremities without clubbing, cyanosis, or edema. NEUROLOGICAL: Sedated Psych: could not be assessed IV line sites with no e/o infection. Assessment & Plan Remarks SIRS possible Sepsis (fever, tachycardia, hypotension). Given CT findings and clinical picture Retroperitoneal hematoma with reactive changes and hemorrhagic shock related hypotension are more likely. Aspiration Pneumonia: GNR Pneumonia. Possible Central line associated Blood Stream Infection. Acute metabolic encephalopathy Acute resp failure on BiPAP, component of TSU Acute kidney injury: prerenal from hemodynamic changes, chronic HTN related. DM2 uncontrolled: stress as additional factor. CAD non ischemic cardiomyopathy Anemia: acute due to Retroperitoneal bleed. Receiving blood transfusions. Recs: DC Cefepime IV DC Flagyl oral. Start Meropenem IV (ASP: Worsening septic shock on broad spectrum antibiotics) 1st dose stat Stat one dose Vanco IV (then redose based on levels) Start Micafungin IV (on BSA and lines placed in code in femoral area, high risk for fungemia and fungal central line infection) Follow cultures Follow clinically d/w RN and Tracy Portillo MD May 18, 2016 08:19
--- NOTE | 2016-05-18 08:37 | HHI.NPPN ---
Subjective History of Present Illness 61 year old with ARF, CHF, Respiratory failure Objective Data Data 05/17/16 05/18/16 19:00 07:00 Intake Total 6374 ml Output Total 3000 ml 275 ml Balance -3000 ml 6099 ml IV Total 4974 ml Albumin 100 ml Packed Cells 750 ml FFP 550 ml Output Urine Total 275 ml Hemodialysis 3000 ml Vital Signs Date Time Temp Pulse Resp B/P Pulse Ox O2 Delivery O2 Flow Rate FiO2 05/18/16 06:00 119 05/18/16 04:02 93 100 05/18/16 04:00 124 05/18/16 04:00 101.2 124 24 133/75 97 153/82 05/18/16 04:00 100 05/18/16 02:00 129 05/18/16 01:06 93 100 05/18/16 00:00 103.0 135 32 162/70 94 147/81 05/18/16 00:00 100 05/18/16 00:00 135 05/17/16 22:08 95 100 05/17/16 22:00 140 05/17/16 20:00 100 05/17/16 20:00 102.5 122 28 136/69 96 05/17/16 20:00 132 05/17/16 19:25 96 100 05/17/16 19:00 99 Mechanical Ventilator 100 05/17/16 19:00 127 05/17/16 18:00 121 05/17/16 17:30 100 05/17/16 17:00 70/31 05/17/16 17:00 60 05/17/16 16:00 50 05/17/16 16:00 98.7 122 27 99/56 99 05/17/16 16:00 122 05/17/16 14:57 97 50 05/17/16 14:00 146 05/17/16 12:00 50 05/17/16 12:00 140 05/17/16 12:00 99.0 140 31 123/60 95 05/17/16 11:12 94 50 05/17/16 10:00 134 -: 05/18/16 0308 05/18/16 0308 Physical Exam General Appearance: Well Developed, Obese Neck Neck Exam: Neck Supple Pulmonary Resp Exam: Decreased Bases Cardiology CV Exam: Tachycardia Gastrointestinal/Abdomen GI Exam: Soft, Non-Tender, Distended Extremeties Extremities Exam: Moderate Edema Assessment/Plan Problem List: (1) Acute renal failure Plan: Patient is well oliguric acute renal failure ATN Seen during hemodialysis 3K/HCO3, 3 L Off today continue supportive care FiO2 100% Continue HD for tomorrow. 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 Plan: Cardiology following (4) Acute hypoxemic respiratory failure Plan: On ventilator (5) Hypertensive emergency Plan: Patient BP stable (6) Diabetes mellitus Plan: Continue monitor blood glucose (7) CAD (coronary artery disease) (8) Subsequent ST elevation (STEMI) myocardial infarction of anterior wall Problem Qualifiers (1) Acute renal failure: Qualified Code: N17.0 - Acute renal failure with tubular necrosis Linda Mcintosh MD May 18, 2016 08:37
--- NOTE | 2016-05-18 08:43 | HHI.CCPN ---
Subjective Remarks/Hospital Course 61-year-old AA male. Date of admission 05/05/2016. Date of consultation 2016. Past medical history includes hypertensive heart disease, hypertension, diabetes mellitus type 2 and spinal stenosis. He presented to [facility] today with history of acute onset of diaphoresis, chest pain and syncope. Her documentation, Chest pain was 7 out of 10 without radiation. Later in the hospital physician, patient did have ST elevation anterior septal leads. I he had a cardiac catheterization in 2009 which revealed moderate coronary disease which documented 50-60% stenosis in the LAD diagonals 1 and 2. Recommended medical management at that time. Dr. Marcano was notified and proceed to the cardiac catheter lab. Patient sees heparin and one aspirin prior to cardiac catheterization. During heart catheterization,, patient became hypertensive, tachypneic, hypoxic and agitated including abdominal pain with nausea and vomiting. Patient was intubated by Dr. Simon and dispensed transferred to room 505a. Currently hemodynamic stable on a propofol drip. 05/06: Patient required additional sedation overnight. Was moving all 4 extremity spontaneously and strongly. Potassium is replaced overnight along with magnesium. This afternoon approximate 4 PM, patient went into a sinus bradycardia in the 40s. RN cannot locate pulse and possibly went into a PEA arrest. Patient received CPR for approximately 2 minutes. ROSC return immediately. Received 1 mg of epinephrine IV. Blood pressure was 240 systolic. Saturations were above 90% the entire time. Dr. Marcano was made aware. No new recommendations at this time. Electrolytes currently pending. Patient is currently hemodynamic stable and an arterial line/left radial has been placed 05/07: no improvement in delirium or mental status. spiking low grade fevers. 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 CT surgery consulted and declined to operate here: he will need referral once stabilized. fio2 requirements still high. CT chest also with evidence of bibasilar consolidation which may be aspiration pneumonitis vs. pneumonia now that we are 48h out from initial presentation and now spiking fevers. 05/08: delirium persists. continues to spike fevers. jolly cultured yesterday without results yet. holding sedation today. 05/09: delirium slightly improved. waking up on SAT, weakly following commands. cultures still NGTD. hypoxia slightly improved. 05/10: delirium improving. weakly following commands still. cultures still NGTD. fevers persist, although fever curve appears to be improving. hypoxia continues to improve. still remains very critically ill. 05/11: Tmax 99.9. Currently 99.1. Tolerating tube feeding. One bowel movement. Continues to have difficulty weaning ventilator. Subjective 05/12: Currently afebrile. Tolerating tube feeding. Positive BM. Increased FiO2 from 45-60%. +1 L. Arousable on sedation vacation and weakly follows commands. 05/13: Remains intubated, sedated. FiO2 now reduced to 45% (was 55% today am). Start weaning trials after starting Precedex. To control BP May use Cardene, given anomalous RCA 05/14: Extubated yesterday, remained on BiPAP overnight. Intermittently agitated. Following commands to me today, while on BiPAP. Remains on Cardene infusion for uncontrolled hypertension. Urine output 4.7 L in 24 hours 05/15: On 3 L nasal cannula. Fever trending down, breathing more comfortably. Able to communicate. Discussed with Dr. Marcano. Dr. Pendleton will be available tomorrow, will probably need transfer to [facility] for RCA unroofing 05/16: Acutely hypotensive overnight with tachycardia. MAP was 55 with greater than 130s. Received 3.5 L of normal saline bolus with improvement in blood pressure and heart rate. Lethargic on BiPAP. ABG pending, HB dropped from 10.9 to 7.8. No obvious source of bleeding. STAT 2U PRBC. STAT CT head and CT abd pelvis. R/O ICH or RP bleed. Patient received only 5mg Nicci at 2100 yesterday, no other sedation. Last dose of Lovenox was at 211, held now 05/17: Developed Hemorrhagic shock from large retroperitoneal hemorrhage night to 05/15/16. Stabilized after 3 units of PRBC and protamine. Hemoglobin 8.7 today. Remain encephalopathy and unresponsive yesterday. MRI 05/16/16 shows small punctate white matter infarcts, bilateral basal ganglia infarcts. Urology consult pending. Antiplatelet drugs on hold. Now with anuria from ATN secondary to shock. Nephrology consult pending 05/18: Developed sudden onset bradycardia in 40s, with acute hypotension yesterday evening around 5 PM. ACLS protocol initiated (did not arrest or lose pulse). Received multiple epinephrine, bicarbonate calcium and fluid boluses. Patient was placed on dopamine 20 mics per KG per minute, Levophed 20 mics per KG per minute, epinephrine 2.5 mics per minute and eventually stabilized with systolic blood pressure reading 120s. Hemoglobin on ABG was 7 and emergently transfused 3 units PRBC and 2 units FFP. Lab hemoglobin came back at 6.8. Patient also was profoundly acidemic with pH of 7.16. Patient received total 3 A of bicarbonate and bicarbonate infusion was started, minute ventilation was also increased. Today patient appears to have slightly more stabilized but he remains on 24 mics of Levophed and 20 mics of dopamine. Tmax 103. ID following ingesting antibiotics, single dose of vancomycin given and ID will start Zyvox Objective Vital Signs Date Time Temp Pulse Resp B/P Pulse Ox O2 Delivery O2 Flow Rate FiO2 05/18/16 08:23 97 100 05/18/16 06:00 119 05/18/16 04:00 101.2 24 133/75 153/82 05/17/16 19:00 Mechanical Ventilator 05/15/16 20:59 3.00 Intake and Output 05/17/16 05/17/16 05/18/16 08:00 16:00 00:00 Intake Total 3100 ml 4510 ml Output Total 0 ml 3000 ml 100 ml Balance 3100 ml -3000 ml 4410 ml Result Diagram: 05/18/16 0308 05/18/16 0308 Other Results Laboratory Tests Test 05/17/16 05/17/16 17:20 17:47 Blood Gas Puncture Site ART LINE ART LINE Blood Gas Patient Temperature 98.6 98.6 Blood Gas HCO3 14 mmol/L 19 mmol/L (22-26) (22-26) Blood Gas Base Excess -12.8 mmol/L -6.0 mmol/L (-2-2) (-2-2) Blood Gas Oxygen Saturation 95 % (90-100) 86 % (90-100) Arterial Blood pH 7.17 7.31 (7.380-7.420) (7.380-7.420) Arterial Blood Partial 41 mmHg (38-42) 40 mmHg (38-42) Pressure CO2 Arterial Blood Partial 144 mmHg 69 mmHg Pressure O2 (61-120) (61-120) Arterial Blood Oxygen Content 9.9 Vol % 8.2 Vol % (12.0-20.0) (12.0-20.0) Arterial Blood 1.1 % (0-4) 1.4 % (0-4) Carboxyhemoglobin Arterial Blood Methemoglobin 1.9 % (0-2) 1.7 % (0-2) Blood Gas Hemoglobin 7.2 G/DL 6.7 G/DL (12.0-16.0) (12.0-16.0) Oxygen Delivery Device VENTILATOR VENTILATOR Blood Gas Ventilator Setting AC/16/650/PEEP8 AC/20/650/PEEP8 Blood Gas Inspired Oxygen 100 % 100 % Imaging Last Impressions Chest X-Ray 05/12/16 0600 Signed Impressions: Service Date/Time: Thursday, May 12, 2016 03:30 - CONCLUSION: Worsening appearance of the chest. Ronald Tinsley MD Upper Extremity Ultrasound 05/10/16 0000 Signed Impressions: Service Date/Time: Tuesday, May 10, 2016 09:44 - CONCLUSION: Occlusive thrombus in the right cephalic vein. Otherwise negative Shahid Sin MD Lower Extremity Ultrasound 05/10/16 0000 Signed Impressions: Service Date/Time: Tuesday, May 10, 2016 09:20 - CONCLUSION: Occlusive thrombus right posterior tibial vein. Otherwise negative with negative left lower extremity Shahid Sin MD Head CT 05/08/16 0000 Signed Impressions: Service Date/Time: Sunday, May 08, 2016 17:42 - CONCLUSION: Intracranially negative. Ethmoid and left maxillary sinus disease includes air-fluid level left maxillary sinus. Shahid Sin MD CT Angiography 05/06/16 0000 Signed Impressions: Service Date/Time: Saturday, May 07, 2016 00:04 - CONCLUSION: 1. Lobar consolidation bilaterally in the lower lobes. 2. Negative for pulmonary embolism. Michael Colbert MD Objective Remarks GENERAL: 61-year-old AA male, morbidly obese, intubated sedated with versed, critically ill SKIN: Warm and dry. No rash HEAD: Atraumatic. Normocephalic. EYES: Pupils equal and round around 2-3 mm bilaterally and slightly reactive. No scleral icterus. No injection or drainage. ENT: No nasal bleeding or discharge. Orotracheally intubated NECK: Trachea midline. JVD difficult to assess due to body habitus. Left IJ triple-lumen, right IJ Vas-Cath CARDIOVASCULAR: Distant due to body habitus. Regular rate and rhythm. S1, S2. Without murmur RESPIRATORY: Diminished breath sounds bilaterally due to body habitus. Breath sounds equal bilaterally. On ACV GASTROINTESTINAL: Abdomen obese, non-tender, protuberant, distended. no guarding. MUSCULOSKELETAL: Extremities without significant peripheral edema. Right femoral arterial line NEUROLOGICAL: Patient is sedated on Versed infusion. Pupils are sluggishly reactive. No withdrawal to pain today. Urinary Catheter: Yes Assessment to: Continue Vascular Central Line Catheter: Yes Assessment to: Continue A/P Assessment and Plan Neuro/Psych: Bilateral basal ganglia infarcts, small punctate white matter infarcts on MRI Acute toxic metabolic encephalopathy Versed for ventilator synchrony. Daily sedation vacation Neurology consulted Dr. Felix MRI of the brain done 05/16/16 shows small punctate white matter infarcts, bilateral basal ganglia infarcts Off Seroquel and Haldol due to nonsustained V. tach Head CT 05/08, 05/16: negative acute. EEG 05/12 revealed generalized slowing right greater than left. No epileptiform activity. EEG 05/16: No seizure, severe encephalopathy CV: Hemorrhagic shock due to left retroperitoneal hemorrhage-shock resolved Severe bradycardia and hypotension 05/17/16 most likely secondary to recurrent bleed Aberrant RCA off LCC Nonsustained V. tach single episode Diastolic heart failure Coronary artery disease Nonischemic cardiomyopathy secondary to hypertensive heart disease Hypertensive emergency On 05/17/16: Developed sudden onset bradycardia in 40s, with acute hypotension yesterday evening around 5 PM. ACLS protocol initiated Received multiple epinephrine, bicarbonate calcium and fluid boluses. Placed on dopamine 20 mics per KG per minute, Levophed 20 mics per KG per minute, epinephrine 2.5 mics per minute and eventually stabilized with systolic blood pressure reading 120s. Hemoglobin came back at 6.8-3U prbc and 2U FFP given . Patient also was profoundly acidemic with pH of 7.16, received total 3 A of bicarbonate and bicarbonate infusion was started, minute ventilation was also increased. On 05/16/16 patient received 4 L normal saline boluses, 3 units PRBC Currently remains on 24 mcg/m of Levophed, 20 g per KG per minute of dopamine Discontinue all antihypertensives and beta blockers Status post cardiac catheterization by Dr. Moy. No intervention performed. Known coronary artery artery disease to the first and second diagonals the LAD. Aberrant RCA off left coronary cups. Transfer to fo RCA unroofing once clinically stable Aspirin 81 mg on hold due to RP hemorrhage. (Plavix DC d 05/15/[address] Marcano in anticipation of probable unroofing surgery) Hold Lipitor 20 mg a night. Hold Procardia XL 90 mg,metoprolol 25 mg by mouth every 8 hours, clonidine 0.2 mg by mouth every 8 hours ALL held due to hypotension shock Holding Lasix 20 mg po BID (Holding home medications of hydrochlorothiazide 25 mg daily, spironolactone 50 mg twice a day) Pulm: Acute hypoxemic respiratory failure-extubated 05/13/16, re intubated 05/16/16 for airway protection Likely underlying STU Extubated 05/13/16. Reintubated 05/16/16 for airway protection due to severe encephalopathy No spontaneous breathing trials due to severe shock and severe encephalopathy Chest x-ray shows new infiltrate right upper lobe Sputum culture with gram-negative rods. ID changed antibiotics to meropenem and Zyvox after 1 dose of vancomycin GI: Acute large left retroperitoneal hemorrhage Hypoalbuminemia Constipation- resolved. Hold tube feeds with Nepro Supportive care with blood transfusion and correction of coagulopathy Continue Protonix for GI prophylaxis Colace/Senokot twice a day for bowel regimen, /Renal: Acute kidney failure due to ATN Anuria Chaudhry for accurate I's and O's in a critically ill patient Nephrology consulted, HD started 05/17/16 DCd Bumex infusion Endo: Diabetes mellitus type 2 Sliding-scale insulin Accu-Cheks to maintain euglycemia. Medium regimen every 6 hours Holding metformin Heme: Acute blood loss anemia with shock Large left retroperitoneal hemorrhage Right cephalic superficial thrombus/right PT DVT Normocytic anemia Transfused 3 units PRBC stat on 05/16/16 Transfused 3 units PRBC and 2 units FFP on to 117 Therapeutic Lovenox discontinued, aspirin placed on hold 75 mg IV protamine slow infusion (D/W with Dr. grimes) on 05/16/16. Continues to bleed consult IR for possible embolization Hematology consulted, recommends against anticoagulation and IVC filter CBC daily. Monitor trends. No active bleeding. Was on Lovenox 150 mg subcutaneous twice a day-DCd 05/16/16 ID: Aspiration pneumonia/GNR in sputum --2/2 Sputum culture with gram-negative rods. ID changed antibiotics to meropenem and Zyvox after 1 dose of vancomycin --(Started cefepime and Flagyl on 05/16/16. A single dose of vancomycin given. Cefepime DCd) --Tmax 103 Pertinent cultures 05/07 - blood cultures 2 - negative 05/08 - sputum - negative 05/08 - urine - negative 05/08 - blood cultures - negative 05/13 - blood cx negative 05/13 - urine cx negative 05/16 - sputum GNR 05/16 - urine neg 131 - blood cultures neg MSK: History of spinal stenosis/laminectomy/left total knee replacement and left ring finger amputation PT evaluate and treat Access - Utilize peripheral IV/Central line if indicated Prophylaxis - GI - Protonix - DVT -DCd Lovenox. SCD on L leg - Check venous doppler if clinically indicated Critical Care: CCT 80 MIN Tahmina Kelsey MD May 18, 2016 08:43
[2016-05-18] MEDS: MICAFUNGIN INJ 150 MG in SODIUM CHLORIDE 0.9% INJ 100 ML IV SCH (08:45)
[2016-05-18] MEDS: CHLORHEXIDINE 0.12% (ORAL KIT) 15 ML CUP MT SCH ×2 (08:46→20:30)
[2016-05-18] MEDS ORDERED: CEFEPIME INJ 1,000 MG in SODIUM CHLORIDE 0.9% INJ 100 ML IV SCH (09:00)
[2016-05-18] MEDS ORDERED: MEROPENEM INJ 500 MG in SODIUM CHLORIDE 0.9% INJ 100 ML IV SCH (09:00)
[2016-05-18 09:09] LABS: BLOOD GAS BASE EXCESS -3.1 mmol/L (-2-2); BLOOD GAS CARBOXYHEMOGLOBIN 1.2 % (0-4); BLOOD GAS HCO3 21 mmol/L (22-26); BLOOD GAS METHEMOGLOBIN 0.8 % (0-2); BLOOD GAS O2 HGB SATURATION 97 % (90-100); BLOOD GAS OXYGEN CONTENT 13.3 Vol % (12.0-20.0); BLOOD GAS PCO2 34 mmHg (38-42); BLOOD GAS PO2 127 mmHg (61-120); BLOOD GAS TOTAL HGB 9.6 G/DL (12.0-16.0); CRITICAL VALUE NO; DRAW SITE ART LINE; FIO2 100 %; OXYGEN DEVICE VENTILATOR; STAT NO; TEMP CORR TO 98.6; VENT SETTINGS 600/20/PEEP8
[2016-05-18 10:31] LABS: APTT (PATIENT) 32.9 SEC (24.3-30.1); INTERNATIONAL NORMALIZED RATIO 1.4 RATIO; PROTHROMBIN TIME - PATIENT 15.4 SEC (9.8-11.6)
[2016-05-18 10:46] LABS: AUTOMATED NEUTROPHIL # 23.7 TH/MM3 (1.8-7.7); BASOPHIL # 0.3 TH/MM3 (0-0.2); BASOPHIL % 1.2 % (0.0-2.0); HEMATOCRIT 26.9 % (39.0-51.0); LYMPH % 6.4 % (9.0-44.0); LYMPHOCYTE # 1.7 TH/MM3 (1.0-4.8); MEAN CELL VOLUME 85.2 FL (80.0-100.0); MEAN CORPUSCULAR HEMOGLOBIN 28.4 PG (27.0-34.0); MEAN CORPUSCULAR HGB CONC 33.4 % (32.0-36.0); MONO % 4.6 % (0.0-8.0); NEUT % 87.8 % (16.0-70.0); PLATELET COUNT 278 TH/MM3 (150-450); RED BLOOD COUNT 3.16 MIL/MM3 (4.50-5.90); RED CELL DISTRIBUTION WIDTH 16.7 % (11.6-17.2)
[2016-05-18 10:47] LABS: HEMO FLAGS AUTO DIFF
--- NOTE | 2016-05-18 11:20 | PD.CARD.PN ---
Subjective Subjective Remarks Events over night noted, currently critical but stable, pressors being decreased Objective Medications Current Medications Medications (Trade) Dose Ordered Sig/Isabelle Route Start Time Stop Time Status Last Admin (NS Flush) 2 ml UNSCH PRN IV FLUSH 05/05/16 17:15 (NS Flush) 2 ml BID IV FLUSH 05/05/16 21:00 05/17/16 20:12 (Tylenol) 650 mg Q6H PRN PO 05/05/16 17:15 05/15/16 11:55 (Tears Naturale Opth Soln) 1 drop TID EACH EYE 05/05/16 18:00 05/17/16 13:00 (Zofran Inj) 4 mg Q6H PRN IV 05/05/16 17:15 (Colace) 100 mg BID PO 05/05/16 21:00 05/17/16 09:00 Miscellaneous Information 1 [id number] XX 05/05/16 17:15 05/05/16 17:15 (Chlorhexidine 2% Cloth) Taper DAILY@04 TOP 05/06/16 04:00 05/02/17 03:59 05/17/16 04:00 (Chlorhexidine 2% Cloth) 3 pack UNSCH PRN TOP 05/05/16 17:15 (Glucagon Inj) 1 mg UNSCH PRN OTHER 05/05/16 17:15 (Aspirin Chew) 81 mg DAILY CHEW 05/06/16 09:00 Hold 05/15/16 08:30 (Lipitor) 20 mg DAILY PO 05/06/16 09:00 Hold 05/15/16 08:32 (Senokot) 17.2 mg Q12H PO 05/06/16 18:00 05/18/16 06:09 (D50w (Vial) Inj) 25 ml UNSCH PRN IV PUSH 05/08/16 21:00 (NovoLIN R SUPPLEMENTAL SCALE) 1 Q6HR SQ 05/09/16 00:00 05/18/16 06:09 (Pill Splitter) 1 ea UNSCH PRN OTHER 05/11/16 15:15 (Lopressor) 25 mg Q8HR PO 05/13/16 22:00 Hold 05/15/16 14:44 (Ofirmev Inj) 1,000 mg Q6H PRN IV 05/13/16 18:30 05/13/16 19:23 (Procardia Xl) 90 mg DAILY PO 05/14/16 09:00 Hold 05/15/16 08:30 (Lasix) 20 mg BID@09,18 PO 05/15/16 18:00 Hold 05/15/16 17:22 (Peridex 0.12% Liq) 15 ml BID@08,20 MT 05/16/16 20:00 05/18/16 08:46 Albumin Human 25 gm 25 gm Q12H IV 05/17/16 08:00 05/18/16 08:00 (NS 1000 ml Inj) 1,000 ml @ 0 mls/hr Q0M PRN IV 05/17/16 12:13 05/17/16 12:27 Heparin Sodium (Porcine) 8000 units 8,000 units UNSCH PRN IVF 05/17/16 12:15 Sodium Chloride 1,000 ml @ 200 mls/hr Q5H PRN IV 05/17/16 12:13 05/17/16 12:28 (NS 1000 ml Inj) 1,000 ml @ 0 mls/hr Q0M PRN IV 05/17/16 12:13 (Mannitol Inj) 12.5 gm UNSCH PRN IV 05/17/16 12:15 (Albumin 25% Inj) 25 gm UNSCH PRN IV 05/17/16 12:15 (NS Flush) 5 ml UNSCH PRN IVF 05/17/16 12:15 05/17/16 12:29 (Heparin Inj) UNSCH PRN .XX 05/17/16 12:15 05/17/16 12:28 (Gentamicin (Dialysis) Inj) 20 mg UNSCH PRN IV 05/17/16 12:15 05/17/16 12:28 (Zofran Inj) 4 mg UNSCH PRN IV 05/17/16 12:15 (Tylenol) 650 mg UNSCH PRN PO 05/17/16 12:15 (Benadryl) 25 mg UNSCH PRN PO 05/17/16 12:15 (Gelfoam 12 Mm/7 Mm Top) 1 foam UNSCH PRN TOP 05/17/16 12:15 (Epogen Inj) 10,000 units UNSCH PRN IV 05/17/16 12:15 Terbutaline Sulfate 1 mg 1 mg UNSCH PRN SQ 05/17/16 13:45 Midazolam HCl 100 ml @ 0 mls/hr TITRATE IV 05/17/16 21:45 05/17/16 21:58 Dopamine HCl 800 mg/Sodium Chloride 505 ml @ 0 mls/hr TITRATE IV 05/18/16 07:00 05/18/16 07:00 Norepinephrine Bitartrate 4 mg/ Sodium Chloride 250 ml @ 0 mls/hr TITRATE IV 05/18/16 07:00 05/18/16 09:37 Sodium Bicarbonate 100 meq/Sterile Water 1,100 ml @ 75 mls/hr [id number] IV 05/18/16 07:00 05/18/16 07:00 Micafungin Sodium 150 mg/Sodium Chloride 100 ml @ 100 mls/hr Q24H IV 05/18/16 08:00 05/18/16 08:45 (Merrem Inj/NS Inj) 100 ml @ 200 mls/hr Q12H IV 05/18/16 21:00 Vital Signs / I&O Vital Signs Date Time Temp Pulse Resp B/P Pulse Ox O2 Delivery O2 Flow Rate FiO2 05/18/16 10:46 96 80 05/18/16 10:35 98 100 05/18/16 08:23 97 100 05/18/16 06:00 119 05/18/16 04:02 93 100 05/18/16 04:00 124 05/18/16 04:00 101.2 124 24 133/75 97 153/82 05/18/16 04:00 100 05/18/16 02:00 129 05/18/16 01:06 93 100 05/18/16 00:00 103.0 135 32 162/70 94 147/81 05/18/16 00:00 100 05/18/16 00:00 135 05/17/16 22:08 95 100 05/17/16 22:00 140 05/17/16 20:00 100 05/17/16 20:00 102.5 122 28 136/69 96 05/17/16 20:00 132 05/17/16 19:25 96 100 05/17/16 19:00 99 Mechanical Ventilator 100 05/17/16 19:00 127 05/17/16 18:00 121 05/17/16 17:30 100 05/17/16 17:00 70/31 05/17/16 17:00 60 05/17/16 16:00 50 05/17/16 16:00 98.7 122 27 99/56 99 05/17/16 16:00 122 05/17/16 14:57 97 50 05/17/16 14:00 146 05/17/16 12:00 50 05/17/16 12:00 140 05/17/16 12:00 99.0 140 31 123/60 95 I/O 05/17/16 05/17/16 05/17/16 05/18/16 05/18/16 05/18/16 07:00 15:00 23:00 07:00 15:00 23:00 Intake Total 3100 ml 4510 ml 1864 ml Output Total 0 ml 3000 ml 100 ml 175 ml 3000 ml Balance 3100 ml -3000 ml 4410 ml 1689 ml -3000 ml IV Total 3100 ml 3110 ml 1864 ml Albumin 100 ml Packed Cells 750 ml FFP 550 ml Output Urine Total 0 ml 100 ml 175 ml Stool Total 0 ml Hemodialysis 3000 ml 3000 ml Physical Exam GENERAL: Sedated on the vent SKIN: Warm and dry. HEAD: Atraumatic. Normocephalic. EYES: Pupils equal and round. No scleral icterus. No injection or drainage. ENT: No nasal bleeding or discharge. Mucous membranes pink and moist. NECK: Trachea midline. No JVD. CARDIOVASCULAR: Regular rhythm. Tachycardic RESPIRATORY: No accessory muscle use. Decreased breath sounds bilaterally GASTROINTESTINAL: Abdomen soft, non-tender, nondistended. Hepatic and splenic margins not palpable. MUSCULOSKELETAL: Extremities without clubbing, cyanosis, or edema. No obvious deformities. Right radial no hematoma. Right femoral no hematoma/bruit noted NEUROLOGICAL: Sedated on the vent Laboratory Laboratory Tests Test 05/17/16 05/17/16 05/17/16 05/17/16 16:00 17:20 17:31 17:45 Hemoglobin 7.2 GM/DL 6.8 GM/DL Sodium Level 144 MEQ/L Potassium Level 4.5 MEQ/L Chloride Level 110 MEQ/L Carbon Dioxide Level 22.1 MEQ/L Anion Gap 12 MEQ/L Blood Urea Nitrogen 70 MG/DL Creatinine 5.05 MG/DL Estimat Glomerular Filtration 14 ML/MIN Rate Random Glucose 212 MG/DL Calcium Level 7.5 MG/DL Total Bilirubin 0.9 MG/DL Aspartate Amino Transf 1379 U/L (AST/SGOT) Alanine Aminotransferase 1074 U/L (ALT/SGPT) Alkaline Phosphatase 72 U/L Total Protein 5.7 GM/DL Albumin 2.5 GM/DL White Blood Count 35.7 TH/MM3 Red Blood Count 2.40 MIL/MM3 Hematocrit 21.2 % Mean Corpuscular Volume 88.7 FL Mean Corpuscular Hemoglobin 28.5 PG Mean Corpuscular Hemoglobin 32.2 % Concent Red Cell Distribution Width 16.1 % Platelet Count 342 TH/MM3 Mean Platelet Volume 9.1 FL Neutrophils (%) (Auto) 74.7 % Lymphocytes (%) (Auto) 19.9 % Monocytes (%) (Auto) 4.6 % Eosinophils (%) (Auto) 0.1 % Basophils (%) (Auto) 0.7 % Neutrophils # (Auto) 26.7 TH/MM3 Lymphocytes # (Auto) 7.1 TH/MM3 Monocytes # (Auto) 1.6 TH/MM3 Eosinophils # (Auto) 0.0 TH/MM3 Basophils # (Auto) 0.2 TH/MM3 CBC Comment AUTO DIFF Differential Total Cells 100 Counted Neutrophils % (Manual) 73 % Band Neutrophils % 3 % Lymphocytes % 12 % Monocytes % 8 % Neutrophils # (Manual) 28.6 TH/MM3 Metamyelocytes 3 % Myelocytes 1 % Nucleated Red Blood Cells 4 /100 WBC Differential Comment FINAL DIFF MANUAL Platelet Estimate NORMAL Platelet Morphology Comment NORMAL Ovalocytes 1+ Prothrombin Time 14.8 SEC Prothromb Time International 1.3 RATIO Ratio Activated Partial 39.5 SEC Thromboplast Time Blood Gas Puncture Site ART LINE Blood Gas Patient Temperature 98.6 Blood Gas HCO3 14 mmol/L Blood Gas Base Excess -12.8 mmol/L Blood Gas Oxygen Saturation 95 % Arterial Blood pH 7.17 Arterial Blood Partial 41 mmHg Pressure CO2 Arterial Blood Partial 144 mmHg Pressure O2 Arterial Blood Oxygen Content 9.9 Vol % Arterial Blood 1.1 % Carboxyhemoglobin Arterial Blood Methemoglobin 1.9 % Blood Gas Hemoglobin 7.2 G/DL Oxygen Delivery Device VENTILATOR Blood Gas Ventilator Setting AC/16/650/PEEP8 Blood Gas Inspired Oxygen 100 % Troponin I 0.28 NG/ML Blood Type B POSITIVE Crossmatch Leukocyte-Reduced Red Blood Cells Blood Bank Comment Test 05/17/16 05/17/16 05/18/16 05/18/16 17:47 18:02 03:08 06:45 Blood Gas Puncture Site ART LINE Blood Gas Patient Temperature 98.6 Blood Gas HCO3 19 mmol/L Blood Gas Base Excess -6.0 mmol/L Blood Gas Oxygen Saturation 86 % Arterial Blood pH 7.31 Arterial Blood Partial 40 mmHg Pressure CO2 Arterial Blood Partial 69 mmHg Pressure O2 Arterial Blood Oxygen Content 8.2 Vol % Arterial Blood 1.4 % Carboxyhemoglobin Arterial Blood Methemoglobin 1.7 % Blood Gas Hemoglobin 6.7 G/DL Oxygen Delivery Device VENTILATOR Blood Gas Ventilator Setting AC/20/650/PEEP8 Blood Gas Inspired Oxygen 100 % Crossmatch Leukocyte-Reduced Red Blood Cells Blood Bank Comment White Blood Count 28.3 TH/MM3 Red Blood Count 3.23 MIL/MM3 Hemoglobin 9.1 GM/DL Hematocrit 27.6 % Mean Corpuscular Volume 85.5 FL Mean Corpuscular Hemoglobin 28.2 PG Mean Corpuscular Hemoglobin 33.0 % Concent Red Cell Distribution Width 16.6 % Platelet Count 330 TH/MM3 Mean Platelet Volume 8.8 FL Neutrophils (%) (Auto) 84.7 % Lymphocytes (%) (Auto) 8.9 % Monocytes (%) (Auto) 5.3 % Eosinophils (%) (Auto) 0.1 % Basophils (%) (Auto) 1.0 % Neutrophils # (Auto) 23.9 TH/MM3 Lymphocytes # (Auto) 2.5 TH/MM3 Monocytes # (Auto) 1.5 TH/MM3 Eosinophils # (Auto) 0.0 TH/MM3 Basophils # (Auto) 0.3 TH/MM3 CBC Comment AUTO DIFF Differential Total Cells 100 Counted Neutrophils % (Manual) 77 % Band Neutrophils % 9 % Lymphocytes % 5 % Monocytes % 4 % Neutrophils # (Manual) 25.8 TH/MM3 Metamyelocytes 1 % Myelocytes 4 % Nucleated Red Blood Cells 3 /100 WBC Differential Comment FINAL DIFF MANUAL Platelet Estimate NORMAL Platelet Morphology Comment NORMAL Sodium Level 142 MEQ/L Potassium Level 4.6 MEQ/L Chloride Level 105 MEQ/L Carbon Dioxide Level 22.1 MEQ/L Anion Gap 15 MEQ/L Blood Urea Nitrogen 85 MG/DL Creatinine 5.96 MG/DL Estimat Glomerular Filtration 12 ML/MIN Rate Random Glucose 442 MG/DL Calcium Level 8.5 MG/DL Magnesium Level 2.0 MG/DL Total Bilirubin 1.0 MG/DL Aspartate Amino Transf 2711 U/L (AST/SGOT) Alanine Aminotransferase 1472 U/L (ALT/SGPT) Alkaline Phosphatase 77 U/L Total Protein 5.8 GM/DL Albumin 2.5 GM/DL Lactic Acid Level 1.9 mmol/L Test 05/18/16 05/18/16 05/18/16 09:00 09:36 10:32 Blood Gas Puncture Site ART LINE Blood Gas Patient Temperature 98.6 Blood Gas HCO3 21 mmol/L Blood Gas Base Excess -3.1 mmol/L Blood Gas Oxygen Saturation 97 % Arterial Blood pH 7.40 Arterial Blood Partial 34 mmHg Pressure CO2 Arterial Blood Partial 127 mmHg Pressure O2 Arterial Blood Oxygen Content 13.3 Vol % Arterial Blood 1.2 % Carboxyhemoglobin Arterial Blood Methemoglobin 0.8 % Blood Gas Hemoglobin 9.6 G/DL Oxygen Delivery Device VENTILATOR Blood Gas Ventilator Setting 600/20/PEEP8 Blood Gas Inspired Oxygen 100 % Prothrombin Time 15.4 SEC Prothromb Time International 1.4 RATIO Ratio Activated Partial 32.9 SEC Thromboplast Time Fibrinogen 432 mg/dL White Blood Count 27.0 TH/MM3 Red Blood Count 3.16 MIL/MM3 Hemoglobin 9.0 GM/DL Hematocrit 26.9 % Mean Corpuscular Volume 85.2 FL Mean Corpuscular Hemoglobin 28.4 PG Mean Corpuscular Hemoglobin 33.4 % Concent Red Cell Distribution Width 16.7 % Platelet Count 278 TH/MM3 Mean Platelet Volume 8.5 FL Neutrophils (%) (Auto) 87.8 % Lymphocytes (%) (Auto) 6.4 % Monocytes (%) (Auto) 4.6 % Eosinophils (%) (Auto) 0.0 % Basophils (%) (Auto) 1.2 % Neutrophils # (Auto) 23.7 TH/MM3 Lymphocytes # (Auto) 1.7 TH/MM3 Monocytes # (Auto) 1.2 TH/MM3 Eosinophils # (Auto) 0.0 TH/MM3 Basophils # (Auto) 0.3 TH/MM3 CBC Comment AUTO DIFF Assessment and Plan Problem List: (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 (2) Hypertensive emergency (3) Acute hypoxemic respiratory failure (4) Diabetes mellitus (5) CAD (coronary artery disease) (6) NSVT (nonsustained ventricular tachycardia) (7) Retroperitoneal bleed Assessment and Plan 1) Cardiac cath showing mild to moderate CAD 2) Anomalous RCA off Left Coronary Cusp, will need CTA of coronaries to define pathway of RCA between PA and Aorta especially with chest pain/pre-syncopal episodes... but CT done shows that RCA most likely takes an intra-arterial route , discussed with radiology 3) Occlusive thrombus noted in right PT and right cephalic veins 4) Will discuss with CT Surgery about possible transfer for unroofing of RCA once stable 5) Retroperitoneal bleeds most likely from ASA/Plavix/Lovenox, Lovenox held... watch H/H... 3 units given last night, Hgb currently stable 6) ATN from hypotension, started on HD 7) Pressors continue to be weaned after hemorrhagic shock Maurizio Marcano DO May 18, 2016 11:20
[2016-05-18 11:44] LABS: BANDS 9 % (0-6); BASOPHILS 1 % (0-2); CORRECTED NUCLEATED RBC 2 /100 WBC (0-0); MYELOCYTES 2 % (0-0); POLYS (SEG NEUTROPHILS) 78 % (16-70); WBC DIFF SAMPLE 100
[2016-05-18 11:45] LABS: PLATELET ESTIMATE SMEAR NORMAL (NORMAL)
[2016-05-18 11:46] LABS: PLATELET MORPHOLOGY NORMAL (NORMAL); SCAN/DIFF FINAL DIFF MANUAL
[2016-05-18] MEDS: ARTIFICIAL TEARS OPTH SOLN 15 ML BTL EACH EYE SCH ×3 (12:05→18:31)
[2016-05-18] MEDS: DOCUSATE SODIUM 100 MG CAP PO SCH ×2 (12:06→20:30)
[2016-05-18] MEDS: SODIUM CHLORIDE 0.9% FLUSH 5 ML FLUSH IV FLUSH SCH ×2 (12:06→20:30)
--- NOTE | 2016-05-18 13:56 | RADRPT ---
EXAM DATE/TIME: 05/18/2016 13:17 [facility] COMPARISON: No previous studies available for comparison. INDICATIONS : Right leg swelling. MEDICAL HISTORY : Myocardial infarction. Congestive heart failure. Hypertension. Diabetes. SURGICAL HISTORY : Back surgery. Meniscus fix. ENCOUNTER: Subsequent ACUITY: 1 day PAIN SCORE: Non-responsive LOCATION: Right leg. TECHNIQUE: Venous ultrasound of the leg was performed from the inguinal ligament to the proximal calf. Real-pablo e, color Doppler and spectral tracing, compression and augmentation techniques were used. FINDINGS: There is normal compressibility of the deep venous system from the inguinal region to the proximal ca lf. No echogenic clot is seen in the lumen of the common femoral, femoral and popliteal veins. Ther e is nonocclusive thrombus in the posterior tibial vein. CONCLUSION: Nonocclusive thrombus in the right posterior tibial vein. Remaining veins are otherwise patent. Carlitos Aguirre MD on May 18, 2016 at 13:53 Board Certified Radiologist. This report was verified electronically.
[2016-05-18] MEDS: MIDAZOLAM 100 MG/NS 100 ML DRIP Premix IV SCH (14:28)
--- NOTE | 2016-05-18 15:02 | PD.ONC.PN ---
Subjective Subjective Remarks Tmax 103.0 overnight. Pt resting in bed mechanically ventilated. Pt's son at bedside. Per RN he stabilized somewhat overnight after receiving 3 units PRBC's yesterday evening. He continues to be critically ill supported with vasopressive medications. Objective Data Date Time Temp Pulse Resp B/P Pulse Ox O2 Delivery O2 Flow Rate FiO2 05/18/16 12:51 95 70 05/18/16 10:46 96 80 05/18/16 10:35 98 100 05/18/16 08:23 97 100 05/18/16 07:00 99 Mechanical Ventilator 100 05/18/16 06:00 119 05/18/16 04:02 93 100 05/18/16 04:00 124 05/18/16 04:00 101.2 124 24 133/75 97 153/82 05/18/16 04:00 100 05/18/16 02:00 129 05/18/16 01:06 93 100 05/18/16 00:00 103.0 135 32 162/70 94 147/81 05/18/16 00:00 100 05/18/16 00:00 135 05/17/16 22:08 95 100 05/17/16 22:00 140 05/17/16 20:00 100 05/17/16 20:00 102.5 122 28 136/69 96 05/17/16 20:00 132 05/17/16 19:25 96 100 05/17/16 19:00 99 Mechanical Ventilator 100 05/17/16 19:00 127 05/17/16 18:00 121 05/17/16 17:30 100 05/17/16 17:00 70/31 05/17/16 17:00 60 05/17/16 16:00 50 05/17/16 16:00 98.7 122 27 99/56 99 05/17/16 16:00 122 05/17/16 14:57 97 50 05/18/16 05/18/16 05/18/16 07:00 15:00 23:00 Intake Total 1864 ml Output Total 175 ml 3000 ml Balance 1689 ml -3000 ml Result Diagram: 05/18/16 1032 05/18/16 0308 Laboratory Results Laboratory Tests Test 05/17/16 05/17/16 05/17/16 05/17/16 16:00 17:20 17:31 17:45 Hemoglobin 7.2 GM/DL 6.8 GM/DL Sodium Level 144 MEQ/L Potassium Level 4.5 MEQ/L Chloride Level 110 MEQ/L Carbon Dioxide Level 22.1 MEQ/L Anion Gap 12 MEQ/L Blood Urea Nitrogen 70 MG/DL Creatinine 5.05 MG/DL Estimat Glomerular Filtration 14 ML/MIN Rate Random Glucose 212 MG/DL Calcium Level 7.5 MG/DL Total Bilirubin 0.9 MG/DL Aspartate Amino Transf 1379 U/L (AST/SGOT) Alanine Aminotransferase 1074 U/L (ALT/SGPT) Alkaline Phosphatase 72 U/L Total Protein 5.7 GM/DL Albumin 2.5 GM/DL White Blood Count 35.7 TH/MM3 Red Blood Count 2.40 MIL/MM3 Hematocrit 21.2 % Mean Corpuscular Volume 88.7 FL Mean Corpuscular Hemoglobin 28.5 PG Mean Corpuscular Hemoglobin 32.2 % Concent Red Cell Distribution Width 16.1 % Platelet Count 342 TH/MM3 Mean Platelet Volume 9.1 FL Neutrophils (%) (Auto) 74.7 % Lymphocytes (%) (Auto) 19.9 % Monocytes (%) (Auto) 4.6 % Eosinophils (%) (Auto) 0.1 % Basophils (%) (Auto) 0.7 % Neutrophils # (Auto) 26.7 TH/MM3 Lymphocytes # (Auto) 7.1 TH/MM3 Monocytes # (Auto) 1.6 TH/MM3 Eosinophils # (Auto) 0.0 TH/MM3 Basophils # (Auto) 0.2 TH/MM3 CBC Comment AUTO DIFF Differential Total Cells 100 Counted Neutrophils % (Manual) 73 % Band Neutrophils % 3 % Lymphocytes % 12 % Monocytes % 8 % Neutrophils # (Manual) 28.6 TH/MM3 Metamyelocytes 3 % Myelocytes 1 % Nucleated Red Blood Cells 4 /100 WBC Differential Comment FINAL DIFF MANUAL Platelet Estimate NORMAL Platelet Morphology Comment NORMAL Ovalocytes 1+ Prothrombin Time 14.8 SEC Prothromb Time International 1.3 RATIO Ratio Activated Partial 39.5 SEC Thromboplast Time Blood Gas Puncture Site ART LINE Blood Gas Patient Temperature 98.6 Blood Gas HCO3 14 mmol/L Blood Gas Base Excess -12.8 mmol/L Blood Gas Oxygen Saturation 95 % Arterial Blood pH 7.17 Arterial Blood Partial 41 mmHg Pressure CO2 Arterial Blood Partial 144 mmHg Pressure O2 Arterial Blood Oxygen Content 9.9 Vol % Arterial Blood 1.1 % Carboxyhemoglobin Arterial Blood Methemoglobin 1.9 % Blood Gas Hemoglobin 7.2 G/DL Oxygen Delivery Device VENTILATOR Blood Gas Ventilator Setting AC/16/650/PEEP8 Blood Gas Inspired Oxygen 100 % Troponin I 0.28 NG/ML Blood Type B POSITIVE Crossmatch Leukocyte-Reduced Red Blood Cells Blood Bank Comment Test 05/17/16 05/17/16 05/18/16 05/18/16 17:47 18:02 03:08 06:45 Blood Gas Puncture Site ART LINE Blood Gas Patient Temperature 98.6 Blood Gas HCO3 19 mmol/L Blood Gas Base Excess -6.0 mmol/L Blood Gas Oxygen Saturation 86 % Arterial Blood pH 7.31 Arterial Blood Partial 40 mmHg Pressure CO2 Arterial Blood Partial 69 mmHg Pressure O2 Arterial Blood Oxygen Content 8.2 Vol % Arterial Blood 1.4 % Carboxyhemoglobin Arterial Blood Methemoglobin 1.7 % Blood Gas Hemoglobin 6.7 G/DL Oxygen Delivery Device VENTILATOR Blood Gas Ventilator Setting AC/20/650/PEEP8 Blood Gas Inspired Oxygen 100 % Crossmatch Leukocyte-Reduced Red Blood Cells Blood Bank Comment White Blood Count 28.3 TH/MM3 Red Blood Count 3.23 MIL/MM3 Hemoglobin 9.1 GM/DL Hematocrit 27.6 % Mean Corpuscular Volume 85.5 FL Mean Corpuscular Hemoglobin 28.2 PG Mean Corpuscular Hemoglobin 33.0 % Concent Red Cell Distribution Width 16.6 % Platelet Count 330 TH/MM3 Mean Platelet Volume 8.8 FL Neutrophils (%) (Auto) 84.7 % Lymphocytes (%) (Auto) 8.9 % Monocytes (%) (Auto) 5.3 % Eosinophils (%) (Auto) 0.1 % Basophils (%) (Auto) 1.0 % Neutrophils # (Auto) 23.9 TH/MM3 Lymphocytes # (Auto) 2.5 TH/MM3 Monocytes # (Auto) 1.5 TH/MM3 Eosinophils # (Auto) 0.0 TH/MM3 Basophils # (Auto) 0.3 TH/MM3 CBC Comment AUTO DIFF Differential Total Cells 100 Counted Neutrophils % (Manual) 77 % Band Neutrophils % 9 % Lymphocytes % 5 % Monocytes % 4 % Neutrophils # (Manual) 25.8 TH/MM3 Metamyelocytes 1 % Myelocytes 4 % Nucleated Red Blood Cells 3 /100 WBC Differential Comment FINAL DIFF MANUAL Platelet Estimate NORMAL Platelet Morphology Comment NORMAL Sodium Level 142 MEQ/L Potassium Level 4.6 MEQ/L Chloride Level 105 MEQ/L Carbon Dioxide Level 22.1 MEQ/L Anion Gap 15 MEQ/L Blood Urea Nitrogen 85 MG/DL Creatinine 5.96 MG/DL Estimat Glomerular Filtration 12 ML/MIN Rate Random Glucose 442 MG/DL Calcium Level 8.5 MG/DL Magnesium Level 2.0 MG/DL Total Bilirubin 1.0 MG/DL Aspartate Amino Transf 2711 U/L (AST/SGOT) Alanine Aminotransferase 1472 U/L (ALT/SGPT) Alkaline Phosphatase 77 U/L Total Protein 5.8 GM/DL Albumin 2.5 GM/DL Lactic Acid Level 1.9 mmol/L Test 05/18/16 05/18/16 05/18/16 09:00 09:36 10:32 Blood Gas Puncture Site ART LINE Blood Gas Patient Temperature 98.6 Blood Gas HCO3 21 mmol/L Blood Gas Base Excess -3.1 mmol/L Blood Gas Oxygen Saturation 97 % Arterial Blood pH 7.40 Arterial Blood Partial 34 mmHg Pressure CO2 Arterial Blood Partial 127 mmHg Pressure O2 Arterial Blood Oxygen Content 13.3 Vol % Arterial Blood 1.2 % Carboxyhemoglobin Arterial Blood Methemoglobin 0.8 % Blood Gas Hemoglobin 9.6 G/DL Oxygen Delivery Device VENTILATOR Blood Gas Ventilator Setting 600/20/PEEP8 Blood Gas Inspired Oxygen 100 % Prothrombin Time 15.4 SEC Prothromb Time International 1.4 RATIO Ratio Activated Partial 32.9 SEC Thromboplast Time Fibrinogen 432 mg/dL White Blood Count 27.0 TH/MM3 Red Blood Count 3.16 MIL/MM3 Hemoglobin 9.0 GM/DL Hematocrit 26.9 % Mean Corpuscular Volume 85.2 FL Mean Corpuscular Hemoglobin 28.4 PG Mean Corpuscular Hemoglobin 33.4 % Concent Red Cell Distribution Width 16.7 % Platelet Count 278 TH/MM3 Mean Platelet Volume 8.5 FL Neutrophils (%) (Auto) 87.8 % Lymphocytes (%) (Auto) 6.4 % Monocytes (%) (Auto) 4.6 % Eosinophils (%) (Auto) 0.0 % Basophils (%) (Auto) 1.2 % Neutrophils # (Auto) 23.7 TH/MM3 Lymphocytes # (Auto) 1.7 TH/MM3 Monocytes # (Auto) 1.2 TH/MM3 Eosinophils # (Auto) 0.0 TH/MM3 Basophils # (Auto) 0.3 TH/MM3 CBC Comment AUTO DIFF Differential Total Cells 100 Counted Neutrophils % (Manual) 78 % Band Neutrophils % 9 % Lymphocytes % 7 % Monocytes % 3 % Basophils % 1 % Neutrophils # (Manual) 24.0 TH/MM3 Myelocytes 2 % Nucleated Red Blood Cells 2 /100 WBC Differential Comment FINAL DIFF MANUAL Platelet Estimate NORMAL Platelet Morphology Comment NORMAL Culture Results Microbiology Date/Time Procedure Status Source Growth 05/16/16 07:40 Urine Culture - Final Complete Urine Catheterized Urine NO GROWTH IN 48 HOURS. 05/16/16 16:20 Aerobic Blood Culture - Preliminary Resulted Blood Peripheral NO GROWTH IN 2 DAYS 05/16/16 16:20 Anaerobic Blood Culture - Preliminary Resulted Blood Peripheral NO GROWTH IN 2 DAYS 05/16/16 16:25 Aerobic Blood Culture - Preliminary Resulted Blood Peripheral NO GROWTH IN 2 DAYS 05/16/16 16:25 Anaerobic Blood Culture - Preliminary Resulted Blood Peripheral NO GROWTH IN 2 DAYS 05/16/16 17:20 Gram Stain - Final Complete Sputum Endotracheal 05/16/16 17:20 Sputum Culture - Final Complete Enterobacter Aerogenes 05/18/16 07:50 Aerobic Blood Culture Received Blood Peripheral Pending 05/18/16 07:50 Anaerobic Blood Culture Received Blood Peripheral Pending Imaging Studies Last 24 hours Impressions Chest X-Ray 05/18/16 0600 Signed Impressions: Service Date/Time: May 02:51 - CONCLUSION: 1. Decreasing basilar consolidation and effusions. 2. Developing infiltrate in the right upper lobe. 3. New left IJ central venous catheter with tip in the superior vena cava. No pneumothorax. Other lines and tubes unchanged as above. Low Johnson MD Lower Extremity Ultrasound 05/18/16 0000 Signed Impressions: Service Date/Time: May 13:17 - CONCLUSION: Nonocclusive thrombus in the right posterior tibial vein. Remaining veins are otherwise patent. Carlitos Aguirre MD Administered Medications Medications (Trade) Dose Ordered Sig/Isabelle Route PRN Reason Start Time Stop Time Status Last Admin Dose Admin IV Flush (NS Flush) 2 ml BID IV FLUSH 05/05/16 21:00 05/18/16 12:06 Acetaminophen (Tylenol) 650 mg Q6H PRN PO PAIN 1-10 AND/OR FEVER >101F 05/05/16 17:15 05/15/16 11:55 Artificial Tears (Tears Naturale Opth Soln) 1 drop TID EACH EYE 05/05/16 18:00 05/18/16 12:30 Docusate Sodium (Colace) 100 mg BID PO 05/05/16 21:00 05/18/16 12:06 Miscellaneous Information 1 [id number] XX 05/05/16 17:15 05/05/16 17:15 Chlorhexidine Gluconate (Chlorhexidine 2% Cloth) Taper DAILY@04 TOP 05/06/16 04:00 05/02/17 03:59 05/17/16 04:00 Aspirin (Aspirin Chew) 81 mg DAILY CHEW 05/06/16 09:00 Hold 05/15/16 08:30 Atorvastatin Calcium (Lipitor) 20 mg DAILY PO 05/06/16 09:00 Hold 05/15/16 08:32 Sennosides (Senokot) 17.2 mg Q12H PO 05/06/16 18:00 05/18/16 06:09 Insulin Human Regular (NovoLIN R SUPPLEMENTAL SCALE) 1 Q6HR SQ 05/09/16 00:00 05/18/16 12:05 Metoprolol Tartrate (Lopressor) 25 mg Q8HR PO 05/13/16 22:00 Hold 05/15/16 14:44 Acetaminophen (Ofirmev Inj) 1,000 mg Q6H PRN IV fever 05/13/16 18:30 05/13/16 19:23 Nifedipine (Procardia Xl) 90 mg DAILY PO 05/14/16 09:00 Hold 05/15/16 08:30 Furosemide (Lasix) 20 mg BID@09,18 PO 05/15/16 18:00 Hold 05/15/16 17:22 Chlorhexidine Gluconate (Peridex 0.12% Liq) 15 ml BID@08,20 MT 05/16/16 20:00 05/18/16 08:46 Albumin Human 25 gm 25 gm Q12H IV 05/17/16 08:00 05/18/16 08:00 Sodium Chloride 1,000 ml @ 0 mls/hr Q0M PRN IV For Prime & Rinse Back 05/17/16 12:13 05/17/16 12:27 Sodium Chloride (NS 1000 ml Inj) 1,000 ml @ 200 mls/hr Q5H PRN IV WITH DIALYSIS 05/17/16 12:13 05/17/16 12:28 IV Flush (NS Flush) 5 ml UNSCH PRN IVF WITH DIALYSIS 05/17/16 12:15 05/17/16 12:29 Heparin Sodium (Porcine) (Heparin Inj) UNSCH PRN .XX WITH DIALYSIS 05/17/16 12:15 05/17/16 12:28 Gentamicin Sulfate 20 mg 20 mg UNSCH PRN IV WITH DIALYSIS 05/17/16 12:15 05/17/16 12:28 Midazolam HCl 100 ml @ 0 mls/hr TITRATE IV 05/17/16 21:45 05/18/16 14:28 Dopamine HCl 800 mg/Sodium Chloride 505 ml @ 0 mls/hr TITRATE IV 05/18/16 07:00 05/18/16 07:00 Norepinephrine Bitartrate 4 mg/ Sodium Chloride 250 ml @ 0 mls/hr TITRATE IV 05/18/16 07:00 05/18/16 13:12 Sodium Bicarbonate 100 meq/Sterile Water 1,100 ml @ 75 mls/hr [id number] IV 05/18/16 07:00 05/18/16 07:00 Micafungin Sodium/ Sodium Chloride (Mycamine Inj/NS Inj) 100 ml @ 100 mls/hr Q24H IV 05/18/16 08:00 05/18/16 08:45 Objective Remarks GENERAL: Well-nourished, well-developed patient. GENERAL: Older obese male. Critically ill in the ICU on mechanical ventilation and vasopressive medications. SKIN: Warm and dry. HEAD: Normocephalic. EYES: No injection or drainage. NECK: Supple, trachea midline. No JVD or lymphadenopathy. CARDIOVASCULAR: +S1/S2. RESPIRATORY: Mechanically ventilated. GASTROINTESTINAL: Abdomen soft, non-tender, nondistended. EXTREMITIES: 2+ edema. SCD's in place. R leg slightly more edematous. NEUROLOGICAL: Pt sedated on versed. Unable to assess. Assessment/Plan Problem List: (1) Retroperitoneal bleed Status: Acute Plan: -- Lg areas of hemorrhage involving the left peritoneum psoas muscle, the mesentery as well as area adjacent to the left external iliac artery. -- Hgb stable overnight after receiving 3 units PRBC's. (2) Anemia Status: Acute Plan: -- Due to intra-abdominal bleeding. -- Check CBC q8h. -- Transfuse to keep Hgb greater than 8. -- Daily coags. (3) Superficial thrombosis of right lower extremity Status: Acute Plan: -- US on 05/18 shows nonocclusive clot to R posterior tibial vein -- No IVC filter since this is superficial. -- No anticoagulation due to high risk of bleeding. Assessment 62 y/o male who presented to the ED with chest pain and was found to be in acute STEMI. Plan 1. CBC q8h. Transfuse to keep hgb greater than 8. 2. Daily coags and fibrinogen. 3. Pt remains critically ill. Continue supportive medications/ treatments. 4. We can discuss possibility of IVC filter once he has stabilized. Attending Statement The exam, history, and the medical decision-making described in the above note were completed with the assistance of the mid-level provider. I reviewed and agree with the findings presented. I attest that I had a [id number] encounter with the patient on the same day, and personally performed and documented my assessment and findings in the medical record. Patient with multiorgan failure. RLE swelling is stable. Repeat U/S shows improvement in the RLE thrombus --now it's non-occlusive thrombus. Hold off on IVC filter placement. Discussed with patient's family. Overall prognosis is poor. Discussed with RN Problem Qualifiers (1) Anemia: Jessica Canas May 18, 2016 15:02 Carmelo Veras MD May 18, 2016 20:33
[2016-05-18] MEDS: MEROPENEM INJ 500 MG in SODIUM CHLORIDE 0.9% INJ 100 ML IV SCH (20:30)
[2016-05-18] MEDS: fentaNYL 2,500 MCG/NS 250 ML IV SCH (20:32)
--- NOTE | 2016-05-18 22:13 | MB ---
cc: MIHAELA BATRES M.D. DATE OF CONSULTATION: 05/18/2016 REASON FOR CONSULTATION Stroke. HISTORY OF PRESENT ILLNESS Mr. Short is a 61-year-old -Serbian man who presented to the hospital on 05/05/16 with diaphoresis, chest pain and syncope. A STEMI alert was called as the patient had ST elevation. 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 The patient was intubated for respiratory insufficiency and airway protection. He also had an echocardiogram showing an ejection fraction of 55-60%, normal wall motion, mildly dilated left atrium, right ventricle cavity size normal, pulmonic valve was normal, tricuspid valve normal, pulmonary artery was normal, right atrial size was normal, the aorta was normal. The patient's course was also complicated with renal failure. Also found to have a retroperitoneal bleed. Due to a persistent depressed mental status, he was evaluated with a CT scan of the brain on 05/16/16 showing bilateral basal ganglia calcifications, no hemorrhage. He had an MRI of the brain performed and this is reviewed showing evidence of bilateral basal ganglia infarctions, small punctate areas in the white matter bilaterally consistent with acute infarcts, no hemorrhage is identified. NEUROLOGIC EXAMINATION VITAL SIGNS: His blood pressure is 151/89, pulse is 113, temperature is 99.5 degrees. Higher cortical functions: Currently sedated, nonresponsive. Cranial nerves: The pupils are miotic at 1 mm symmetric, minimally reactive. The extraocular movements are minimal to doll's eyes maneuver. Gag is intact. There is no facial asymmetry. On motor exam there is no posturing. No focal deficit noted. IMPRESSION Bilateral strokes in the basal ganglia and white matter probably embolic in nature. He does have a retroperitoneal hematoma and is therefore not a candidate for full anticoagulation at this time. I would like to get a carotid ultrasound to rule out any potentially significant stenotic lesions. MD YONIS Price/SHARI /8:43 PM /9:56 PM
[2016-05-19] VITALS (19 sets, daily range): BP systolic 101–131; BP diastolic 66–82; PULSE 98–111; RESP 20–27; TEMP 99.2–100.3; O2SAT 92–100
[2016-05-19] MEDS: NOREPINEPHRINE INJ 4 MG in SODIUM CHLOR 0.9% 250 ML INJ 246 ML IV SCH ×3 (00:32→17:18)
[2016-05-19] MEDS: INSULIN NovoLIN REGULAR SUPPLEMENTAL SCALE SQ SCH ×5 (00:32→23:46)
[2016-05-19 02:06] LABS: HEMATOCRIT 24.3 % (39.0-51.0); MEAN CELL VOLUME 84.7 FL (80.0-100.0); MEAN CORPUSCULAR HEMOGLOBIN 29.1 PG (27.0-34.0); MEAN CORPUSCULAR HGB CONC 34.3 % (32.0-36.0); PLATELET COUNT 274 TH/MM3 (150-450); RED BLOOD COUNT 2.86 MIL/MM3 (4.50-5.90); RED CELL DISTRIBUTION WIDTH 16.5 % (11.6-17.2); REVIEW FLAG FINAL; WHITE BLOOD COUNT 23.3 TH/MM3 (4.0-11.0)
[2016-05-19] MEDS: RESP: ALBUTEROL 2.5 MG/IPRATROPIUM 0.5 MG NEB (SCH) NEB ×3 (03:34→23:51)
[2016-05-19] MEDS: CHLORHEXIDINE GLUCONATE 2 % 1 PACK (2 CLOTHS) TOP SCH (04:00)
[2016-05-19 04:01] LABS: HEMATOCRIT 24.8 % (39.0-51.0); MEAN CELL VOLUME 85.3 FL (80.0-100.0); MEAN CORPUSCULAR HEMOGLOBIN 28.8 PG (27.0-34.0); MEAN CORPUSCULAR HGB CONC 33.8 % (32.0-36.0); PLATELET COUNT 273 TH/MM3 (150-450); RED CELL DISTRIBUTION WIDTH 16.7 % (11.6-17.2); REVIEW FLAG FINAL; WHITE BLOOD COUNT 23.4 TH/MM3 (4.0-11.0)
[2016-05-19 04:07] LABS: INTERNATIONAL NORMALIZED RATIO 1.3 RATIO; PROTHROMBIN TIME - PATIENT 14.8 SEC (9.8-11.6)
[2016-05-19] MEDS: SENNOSIDES 8.6 MG TAB PO SCH ×2 (05:25→17:03)
[2016-05-19] MEDS: ACETAMINOPHEN 1000 MG/100 ML VIAL IV PRN (05:31)
--- NOTE | 2016-05-19 07:03 | EKG ---
Date Performed: 05/17/2016 Time Performed: 17:03:14 PTAGE: 61 years EKG: Atrial fibrillation with slow ventricular response. Possible septal infarct - age undetermi nicol Lateral ST-T changes may be due to myocardial ischemia Generalized low QRS voltages Abnormal ECG NO PREVIOUS TRACING DOCTOR: Leonardo De Oliveira Interpretating Date/Time 05/19/2016 07:00:58
--- NOTE | 2016-05-19 08:31 | HHI.IDPN ---
Subjective Subjective Remarks Mr. Short is a 61-year-old male who was admitted on May 05, 2016. Patient's past medical history significant for hypertensive heart disease, hypertension, type 2 diabetes and spinal stenosis. Patient presented to [facility] on the day of admission with history of acute onset of diaphoresis chest pain and syncope. Patient now has retroperitoneal hematoma, IC bleed. ID following for possible sepsis. Overnight events reviewed. Low grade fevers. WBC still high but stable. Underwent HD yday. UO only 30 cc. On Levophed 8 mics weaned down from 3 pressors. On Fentanyl for sedation. No rash No diarrhea Antibiotics Meropenem IV Micafungin IV Vanco last dose 1750 cc on 05/18/2016. Lines Line sites with no e/o infection Past Medical History reviewed Allergies: Coded Allergies: Penicillin (Verified Allergy, Mild, "I GO CRAZY", 09/01/15) Objective . Vital Signs Date Time Temp Pulse Resp B/P Pulse Ox O2 Delivery O2 Flow Rate FiO2 05/19/16 07:49 98 50 05/19/16 06:00 100 05/19/16 04:50 99 60 05/19/16 04:00 100.3 100 20 114/71 98 129/78 05/19/16 04:00 100 05/19/16 04:00 60 05/19/16 02:00 103 05/19/16 01:22 98 70 05/19/16 00:00 111 05/19/16 00:00 100.3 111 27 118/75 98 130/82 05/19/16 00:00 70 05/18/16 22:00 115 05/18/16 20:13 98 70 05/18/16 20:00 99.1 115 33 147/85 98 155/93 05/18/16 20:00 115 05/18/16 20:00 70 05/18/16 18:00 108 05/18/16 16:00 113 05/18/16 16:00 70 05/18/16 16:00 99.5 113 34 151/89 97 151/87 05/18/16 15:54 94 70 05/18/16 14:00 117 05/18/16 12:51 95 70 05/18/16 12:00 116 05/18/16 12:00 80 05/18/16 12:00 99.6 115 25 140/84 96 151/85 05/18/16 10:46 96 80 05/18/16 10:35 98 100 05/18/16 10:00 116 05/18/16 05/18/16 05/19/16 15:00 23:00 07:00 Intake Total 2363 ml 1176 ml 1185 ml Output Total 3030 ml 20 ml 10 ml Balance -667 ml 1156 ml 1175 ml IV Total 2363 ml 1076 ml 1125 ml Albumin 100 ml Other 60 ml Output Urine Total 30 ml 20 ml 10 ml Hemodialysis 3000 ml # Bowel Movements 0 0 . Laboratory Tests Test 05/17/16 05/17/16 05/18/16 05/18/16 16:00 17:20 03:08 10:32 Hemoglobin 7.2 GM/DL 6.8 GM/DL 9.1 GM/DL 9.0 GM/DL White Blood Count 35.7 TH/MM3 28.3 TH/MM3 27.0 TH/MM3 Red Blood Count 2.40 MIL/MM3 3.23 MIL/MM3 3.16 MIL/MM3 Hematocrit 21.2 % 27.6 % 26.9 % Mean Corpuscular Volume 88.7 FL 85.5 FL 85.2 FL Mean Corpuscular Hemoglobin 28.5 PG 28.2 PG 28.4 PG Mean Corpuscular Hemoglobin 32.2 % 33.0 % 33.4 % Concent Red Cell Distribution Width 16.1 % 16.6 % 16.7 % Platelet Count 342 TH/MM3 330 TH/MM3 278 TH/MM3 Mean Platelet Volume 9.1 FL 8.8 FL 8.5 FL Neutrophils (%) (Auto) 74.7 % 84.7 % 87.8 % Lymphocytes (%) (Auto) 19.9 % 8.9 % 6.4 % Monocytes (%) (Auto) 4.6 % 5.3 % 4.6 % Eosinophils (%) (Auto) 0.1 % 0.1 % 0.0 % Basophils (%) (Auto) 0.7 % 1.0 % 1.2 % Neutrophils # (Auto) 26.7 TH/MM3 23.9 TH/MM3 23.7 TH/MM3 Lymphocytes # (Auto) 7.1 TH/MM3 2.5 TH/MM3 1.7 TH/MM3 Monocytes # (Auto) 1.6 TH/MM3 1.5 TH/MM3 1.2 TH/MM3 Eosinophils # (Auto) 0.0 TH/MM3 0.0 TH/MM3 0.0 TH/MM3 Basophils # (Auto) 0.2 TH/MM3 0.3 TH/MM3 0.3 TH/MM3 CBC Comment AUTO DIFF AUTO DIFF AUTO DIFF Differential Total Cells 100 100 100 Counted Neutrophils % (Manual) 73 % 77 % 78 % Band Neutrophils % 3 % 9 % 9 % Lymphocytes % 12 % 5 % 7 % Monocytes % 8 % 4 % 3 % Neutrophils # (Manual) 28.6 TH/MM3 25.8 TH/MM3 24.0 TH/MM3 Metamyelocytes 3 % 1 % Myelocytes 1 % 4 % 2 % Nucleated Red Blood Cells 4 /100 WBC 3 /100 WBC 2 /100 WBC Differential Comment FINAL DIFF FINAL DIFF FINAL DIFF MANUAL MANUAL MANUAL Platelet Estimate NORMAL NORMAL NORMAL Platelet Morphology Comment NORMAL NORMAL NORMAL Ovalocytes 1+ Basophils % 1 % Test 05/19/16 05/19/16 01:30 03:15 White Blood Count 23.3 TH/MM3 23.4 TH/MM3 Red Blood Count 2.86 MIL/MM3 2.90 MIL/MM3 Hemoglobin 8.3 GM/DL 8.4 GM/DL Hematocrit 24.3 % 24.8 % Mean Corpuscular Volume 84.7 FL 85.3 FL Mean Corpuscular Hemoglobin 29.1 PG 28.8 PG Mean Corpuscular Hemoglobin 34.3 % 33.8 % Concent Red Cell Distribution Width 16.5 % 16.7 % Platelet Count 274 TH/MM3 273 TH/MM3 Mean Platelet Volume 8.8 FL 8.9 FL Laboratory Tests Test 05/17/16 05/17/16 05/18/16 05/18/16 16:00 17:20 03:08 06:45 Sodium Level 144 MEQ/L 142 MEQ/L Potassium Level 4.5 MEQ/L 4.6 MEQ/L Chloride Level 110 MEQ/L 105 MEQ/L Carbon Dioxide Level 22.1 MEQ/L 22.1 MEQ/L Anion Gap 12 MEQ/L 15 MEQ/L Blood Urea Nitrogen 70 MG/DL 85 MG/DL Creatinine 5.05 MG/DL 5.96 MG/DL Estimat Glomerular Filtration 14 ML/MIN 12 ML/MIN Rate Random Glucose 212 MG/DL 442 MG/DL Calcium Level 7.5 MG/DL 8.5 MG/DL Total Bilirubin 0.9 MG/DL 1.0 MG/DL Aspartate Amino Transf 1379 U/L 2711 U/L (AST/SGOT) Alanine Aminotransferase 1074 U/L 1472 U/L (ALT/SGPT) Alkaline Phosphatase 72 U/L 77 U/L Total Protein 5.7 GM/DL 5.8 GM/DL Albumin 2.5 GM/DL 2.5 GM/DL Troponin I 0.28 NG/ML Magnesium Level 2.0 MG/DL Lactic Acid Level 1.9 mmol/L Microbiology Date/Time Procedure Status Source Growth 05/16/16 16:20 Aerobic Blood Culture - Preliminary Resulted Blood Peripheral NO GROWTH IN 2 DAYS 05/16/16 16:20 Anaerobic Blood Culture - Preliminary Resulted Blood Peripheral NO GROWTH IN 2 DAYS 05/16/16 16:25 Aerobic Blood Culture - Preliminary Resulted Blood Peripheral NO GROWTH IN 2 DAYS 05/16/16 16:25 Anaerobic Blood Culture - Preliminary Resulted Blood Peripheral NO GROWTH IN 2 DAYS 05/16/16 17:20 Gram Stain - Final Complete Sputum Endotracheal 05/16/16 17:20 Sputum Culture - Final Complete Enterobacter Aerogenes 05/18/16 07:50 Aerobic Blood Culture Received Blood Peripheral Pending 05/18/16 07:50 Anaerobic Blood Culture Received Blood Peripheral Pending Imaging Last Impressions Chest X-Ray 05/17/16 0600 Signed Impressions: Service Date/Time: Tuesday, May 17, 2016 04:05 - CONCLUSION: No significant change. Minimal basilar atelectasis. Low Johnson MD Head CT 05/16/16 0000 Signed Impressions: Service Date/Time: Monday, May 16, 2016 08:30 - CONCLUSION: Suspected bilateral basal ganglia calcifications are unchanged. No evidence of hemorrhage, edema, mass or mass effect. Stephen Quintanilla MD Brain MRI 05/16/16 0000 Signed Impressions: Service Date/Time: Monday, May 16, 2016 15:46 - CONCLUSION: 1. Small punctate areas of white matter infarction without cortical extension or hemorrhage. There is no significant mass effect. 2. Bilateral basal ganglia infarcts measuring 1 cm Bobby Lamas MD Abdomen/Pelvis CT 05/16/16 0000 Signed Impressions: Service Date/Time: Monday, May 16, 2016 08:39 - CONCLUSION: There are large areas of hemorrhage including the left retroperitoneum and psoas muscle, within the mesentery and a smaller area in the right psoas muscle. They don't appear to be related to the abdominal aorta or the internal iliac arteries. There is a small focal collection hemorrhage adjacent to the left external iliac artery as it enters the pelvis, but I don't believe that is related to the large amount of hemorrhage seen elsewhere. The areas of hemorrhage are large and multi-focal. Stephen Quintanilla MD Upper Extremity Ultrasound 05/10/16 0000 Signed Impressions: Service Date/Time: Tuesday, May 10, 2016 09:44 - CONCLUSION: Occlusive thrombus in the right cephalic vein. Otherwise negative hSahid Sin MD Lower Extremity Ultrasound 05/10/16 0000 Signed Impressions: Service Date/Time: Tuesday, May 10, 2016 09:20 - CONCLUSION: Occlusive thrombus right posterior tibial vein. Otherwise negative with negative left lower extremity Shahid Sin MD CT Angiography 05/06/16 0000 Signed Impressions: Service Date/Time: Saturday, May 07, 2016 00:04 - CONCLUSION: 1. Lobar consolidation bilaterally in the lower lobes. 2. Negative for pulmonary embolism. Michael Colbert MD Physical Exam GENERAL: Obese AAM patient, in no apparent distress. SKIN: No rashes, ecchymoses or lesions. Cool and dry. HEAD: Atraumatic. Normocephalic. No temporal or scalp tenderness. EYES: Pupils equal round and reactive. Extraocular motions intact. No scleral icterus. No injection or drainage. ENT: Large neck, Intubated NECK: Trachea midline. Supple, nontender, no meningeal signs. CARDIOVASCULAR: HS audible. RESPIRATORY: Breath sounds equal bilaterally decreased in the bases. GASTROINTESTINAL: Abdomen soft, non-tender, nondistended. Obese MUSCULOSKELETAL: Extremities without clubbing, cyanosis, or edema. NEUROLOGICAL: Sedated Psych: could not be assessed IV line sites with no e/o infection. Assessment & Plan Remarks SIRS possible Sepsis (fever, tachycardia, hypotension). Given CT findings and clinical picture Retroperitoneal hematoma with reactive changes and hemorrhagic shock related hypotension are more likely. Aspiration Pneumonia: Enterobacter cloacae Pneumonia. Possible Central line associated Blood Stream Infection. Acute metabolic encephalopathy Acute resp failure on BiPAP, component of STU Acute kidney injury: prerenal from hemodynamic changes, chronic HTN related. DM2 uncontrolled: stress as additional factor. CAD non ischemic cardiomyopathy Anemia: acute due to Retroperitoneal bleed. Receiving blood transfusions. Recs: Continue Meropenem IV (ASP: Worsening septic shock on broad spectrum antibiotics ) 1st dose stat s/p 1750 mg Vanco IV on 05/18/16. Will redose based on levels if need be. Continue Micafungin IV (on BSA and lines placed in code in femoral area, high risk for fungemia and fungal central line infection) Follow cultures Follow clinically d/w RN to cover for me this weekend. Tracy Mariee MD May 19, 2016 08:31
[2016-05-19] MEDS: ALBUMIN HUMAN 25% 25 GM/100 ML BAGP IV SCH ×2 (09:15→21:29)
[2016-05-19] MEDS: DOCUSATE SODIUM 100 MG CAP PO SCH ×2 (09:15→21:30)
[2016-05-19] MEDS: MEROPENEM INJ 500 MG in SODIUM CHLORIDE 0.9% INJ 100 ML IV SCH ×2 (09:15→21:30)
[2016-05-19] MEDS: fentaNYL 2,500 MCG/NS 250 ML IV SCH ×2 (09:15→21:30)
[2016-05-19] MEDS: MICAFUNGIN INJ 150 MG in SODIUM CHLORIDE 0.9% INJ 100 ML IV SCH (09:15)
[2016-05-19] MEDS: CHLORHEXIDINE 0.12% (ORAL KIT) 15 ML CUP MT SCH ×2 (09:16→20:01)
[2016-05-19] MEDS: ARTIFICIAL TEARS OPTH SOLN 15 ML BTL EACH EYE SCH ×3 (09:16→17:03)
[2016-05-19] MEDS: SODIUM CHLORIDE 0.9% FLUSH 5 ML FLUSH IV FLUSH SCH ×2 (09:17→21:30)
--- NOTE | 2016-05-19 09:32 | PD.CARD.PN ---
Subjective Subjective Remarks No events over night, Dopamine off, Levophed decreased Objective Medications Current Medications Medications (Trade) Dose Ordered Sig/Isabelle Route Start Time Stop Time Status Last Admin (NS Flush) 2 ml UNSCH PRN IV FLUSH 05/05/16 17:15 (NS Flush) 2 ml BID IV FLUSH 05/05/16 21:00 05/19/16 09:17 (Tylenol) 650 mg Q6H PRN PO 05/05/16 17:15 05/15/16 11:55 (Tears Naturale Opth Soln) 1 drop TID EACH EYE 05/05/16 18:00 05/19/16 09:16 (Zofran Inj) 4 mg Q6H PRN IV 05/05/16 17:15 (Colace) 100 mg BID PO 05/05/16 21:00 05/19/16 09:15 Miscellaneous Information 1 Q361D XX 05/05/16 17:15 05/05/16 17:15 (Chlorhexidine 2% Cloth) Taper DAILY@04 TOP 05/06/16 04:00 05/02/17 03:59 05/17/16 04:00 (Chlorhexidine 2% Cloth) 3 pack UNSCH PRN TOP 05/05/16 17:15 (Glucagon Inj) 1 mg UNSCH PRN OTHER 05/05/16 17:15 (Aspirin Chew) 81 mg DAILY CHEW 05/06/16 09:00 Hold 05/15/16 08:30 (Lipitor) 20 mg DAILY PO 05/06/16 09:00 Hold 05/15/16 08:32 (Senokot) 17.2 mg Q12H PO 05/06/16 18:00 05/19/16 05:25 (D50w (Vial) Inj) 25 ml UNSCH PRN IV PUSH 05/08/16 21:00 (NovoLIN R SUPPLEMENTAL SCALE) 1 Q6HR SQ 05/09/16 00:00 05/19/16 05:37 (Pill Splitter) 1 ea UNSCH PRN OTHER 05/11/16 15:15 (Lopressor) 25 mg Q8HR PO 05/13/16 22:00 Hold 05/15/16 14:44 (Ofirmev Inj) 1,000 mg Q6H PRN IV 05/13/16 18:30 05/19/16 05:31 (Procardia Xl) 90 mg DAILY PO 05/14/16 09:00 Hold 05/15/16 08:30 (Lasix) 20 mg BID@09,18 PO 05/15/16 18:00 Hold 05/15/16 17:22 (Peridex 0.12% Liq) 15 ml BID@08,20 MT 05/16/16 20:00 05/19/16 09:16 Albumin Human 25 gm 25 gm Q12H IV 05/17/16 08:00 05/19/16 09:15 (NS 1000 ml Inj) 1,000 ml @ 0 mls/hr Q0M PRN IV 05/17/16 12:13 05/17/16 12:27 Heparin Sodium (Porcine) 8000 units 8,000 units UNSCH PRN IVF 05/17/16 12:15 Sodium Chloride 1,000 ml @ 200 mls/hr Q5H PRN IV 05/17/16 12:13 05/17/16 12:28 (NS 1000 ml Inj) 1,000 ml @ 0 mls/hr Q0M PRN IV 05/17/16 12:13 (Mannitol Inj) 12.5 gm UNSCH PRN IV 05/17/16 12:15 (Albumin 25% Inj) 25 gm UNSCH PRN IV 05/17/16 12:15 (NS Flush) 5 ml UNSCH PRN IVF 05/17/16 12:15 05/17/16 12:29 (Heparin Inj) UNSCH PRN .XX 05/17/16 12:15 05/17/16 12:28 (Gentamicin (Dialysis) Inj) 20 mg UNSCH PRN IV 05/17/16 12:15 05/17/16 12:28 (Zofran Inj) 4 mg UNSCH PRN IV 05/17/16 12:15 (Tylenol) 650 mg UNSCH PRN PO 05/17/16 12:15 (Benadryl) 25 mg UNSCH PRN PO 05/17/16 12:15 (Gelfoam 12 Mm/7 Mm Top) 1 foam UNSCH PRN TOP 05/17/16 12:15 (Epogen Inj) 10,000 units UNSCH PRN IV 05/17/16 12:15 Terbutaline Sulfate 1 mg 1 mg UNSCH PRN SQ 05/17/16 13:45 Midazolam HCl 100 ml @ 0 mls/hr TITRATE IV 05/17/16 21:45 05/18/16 14:28 Dopamine HCl 800 mg/Sodium Chloride 505 ml @ 0 mls/hr TITRATE IV 05/18/16 07:00 05/18/16 07:00 Norepinephrine Bitartrate 4 mg/ Sodium Chloride 250 ml @ 0 mls/hr TITRATE IV 05/18/16 07:00 05/19/16 04:57 Sodium Bicarbonate 100 meq/Sterile Water 1,100 ml @ 75 mls/hr [id number] IV 05/18/16 07:00 05/18/16 20:31 Micafungin Sodium 150 mg/Sodium Chloride 100 ml @ 100 mls/hr Q24H IV 05/18/16 08:00 05/19/16 09:15 Meropenem 500 mg/ Sodium Chloride 100 ml @ 200 mls/hr Q12H IV 05/18/16 21:00 05/19/16 09:15 (fentaNYL DRIP) 250 ml @ 0 mls/hr TITRATE IV 05/18/16 20:00 05/19/16 09:15 Vital Signs / I&O Vital Signs Date Time Temp Pulse Resp B/P Pulse Ox O2 Delivery O2 Flow Rate FiO2 05/19/16 07:49 98 50 05/19/16 06:00 100 05/19/16 04:50 99 60 05/19/16 04:00 100.3 100 20 114/71 98 129/78 05/19/16 04:00 100 05/19/16 04:00 60 05/19/16 02:00 103 05/19/16 01:22 98 70 05/19/16 00:00 111 05/19/16 00:00 100.3 111 27 118/75 98 130/82 05/19/16 00:00 70 05/18/16 22:00 115 05/18/16 20:13 98 70 05/18/16 20:00 99.1 115 33 147/85 98 155/93 05/18/16 20:00 115 05/18/16 20:00 70 05/18/16 18:00 108 05/18/16 16:00 113 05/18/16 16:00 70 05/18/16 16:00 99.5 113 34 151/89 97 151/87 05/18/16 15:54 94 70 05/18/16 14:00 117 05/18/16 12:51 95 70 05/18/16 12:00 116 05/18/16 12:00 80 05/18/16 12:00 99.6 115 25 140/84 96 151/85 05/18/16 10:46 96 80 05/18/16 10:35 98 100 05/18/16 10:00 116 I/O 05/18/16 05/18/16 05/18/16 05/19/16 05/19/16 05/19/16 07:00 15:00 23:00 07:00 15:00 23:00 Intake Total 1864 ml 2363 ml 1176 ml 1185 ml Output Total 175 ml 3030 ml 20 ml 10 ml Balance 1689 ml -667 ml 1156 ml 1175 ml IV Total 1864 ml 2363 ml 1076 ml 1125 ml Albumin 100 ml Other 60 ml Output Urine Total 175 ml 30 ml 20 ml 10 ml Hemodialysis 3000 ml # Bowel Movements 0 0 Physical Exam GENERAL: Sedated on the vent SKIN: Warm and dry. HEAD: Atraumatic. Normocephalic. EYES: Pupils equal and round. No scleral icterus. No injection or drainage. ENT: No nasal bleeding or discharge. Mucous membranes pink and moist. NECK: Trachea midline. No JVD. CARDIOVASCULAR: Regular rhythm. Tachycardic RESPIRATORY: No accessory muscle use. Decreased breath sounds bilaterally GASTROINTESTINAL: Abdomen soft, non-tender, nondistended. Hepatic and splenic margins not palpable. MUSCULOSKELETAL: Extremities without clubbing, cyanosis, or edema. No obvious deformities. NEUROLOGICAL: Sedated on the vent Laboratory Laboratory Tests Test 05/18/16 05/18/16 05/19/16 05/19/16 09:36 10:32 01:30 03:15 Prothrombin Time 15.4 SEC 14.8 SEC Prothromb Time International 1.4 RATIO 1.3 RATIO Ratio Activated Partial 32.9 SEC 32.0 SEC Thromboplast Time Fibrinogen 432 mg/dL 408 mg/dL White Blood Count 27.0 TH/MM3 23.3 TH/MM3 23.4 TH/MM3 Red Blood Count 3.16 MIL/MM3 2.86 MIL/MM3 2.90 MIL/MM3 Hemoglobin 9.0 GM/DL 8.3 GM/DL 8.4 GM/DL Hematocrit 26.9 % 24.3 % 24.8 % Mean Corpuscular Volume 85.2 FL 84.7 FL 85.3 FL Mean Corpuscular Hemoglobin 28.4 PG 29.1 PG 28.8 PG Mean Corpuscular Hemoglobin 33.4 % 34.3 % 33.8 % Concent Red Cell Distribution Width 16.7 % 16.5 % 16.7 % Platelet Count 278 TH/MM3 274 TH/MM3 273 TH/MM3 Mean Platelet Volume 8.5 FL 8.8 FL 8.9 FL Neutrophils (%) (Auto) 87.8 % Lymphocytes (%) (Auto) 6.4 % Monocytes (%) (Auto) 4.6 % Eosinophils (%) (Auto) 0.0 % Basophils (%) (Auto) 1.2 % Neutrophils # (Auto) 23.7 TH/MM3 Lymphocytes # (Auto) 1.7 TH/MM3 Monocytes # (Auto) 1.2 TH/MM3 Eosinophils # (Auto) 0.0 TH/MM3 Basophils # (Auto) 0.3 TH/MM3 CBC Comment AUTO DIFF Differential Total Cells 100 Counted Neutrophils % (Manual) 78 % Band Neutrophils % 9 % Lymphocytes % 7 % Monocytes % 3 % Basophils % 1 % Neutrophils # (Manual) 24.0 TH/MM3 Myelocytes 2 % Nucleated Red Blood Cells 2 /100 WBC Differential Comment FINAL DIFF MANUAL Platelet Estimate NORMAL Platelet Morphology Comment NORMAL Assessment and Plan Problem List: (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 (2) Hypertensive emergency (3) Acute hypoxemic respiratory failure (4) Diabetes mellitus (5) CAD (coronary artery disease) (6) NSVT (nonsustained ventricular tachycardia) (7) Retroperitoneal bleed Assessment and Plan 1) Cardiac cath showing mild to moderate CAD 2) Anomalous RCA off Left Coronary Cusp, will need CTA of coronaries to define pathway of RCA between PA and Aorta especially with chest pain/pre-syncopal episodes... but CT done shows that RCA most likely takes an intra-arterial route , discussed with radiology 3) Occlusive thrombus noted in right PT and right cephalic veins 4) Will discuss with CT Surgery about possible transfer for unroofing of RCA once stable 5) Retroperitoneal bleeds most likely from ASA/Plavix/Lovenox, not felt to be due to cardiac cath as it's left-sided, Lovenox held... watch H/H... Hgb currently stable 6) ATN from hypotension, started on HD 7) Pressors continue to be weaned after hemorrhagic shock 8) Multi-organ failure due to hemorrhagic shock Maurizio Marcano DO May 19, 2016 09:32
--- NOTE | 2016-05-19 11:47 | HHI.NPPN ---
Subjective History of Present Illness 61 year old with ARF, CHF, Respiratory failure Objective Data Data 05/18/16 05/19/16 19:00 07:00 Intake Total 2363 ml 2361 ml Output Total 3030 ml 30 ml Balance -667 ml 2331 ml IV Total 2363 ml 2201 ml Albumin 100 ml Other 60 ml Output Urine Total 30 ml 30 ml Hemodialysis 3000 ml # Bowel Movements 0 Vital Signs Date Time Temp Pulse Resp B/P Pulse Ox O2 Delivery O2 Flow Rate FiO2 05/19/16 10:08 97 50 05/19/16 07:49 98 50 05/19/16 06:00 100 05/19/16 04:50 99 60 05/19/16 04:00 100.3 100 20 114/71 98 129/78 05/19/16 04:00 100 05/19/16 04:00 60 05/19/16 02:00 103 05/19/16 01:22 98 70 05/19/16 00:00 111 05/19/16 00:00 100.3 111 27 118/75 98 130/82 05/19/16 00:00 70 05/18/16 22:00 115 05/18/16 20:13 98 70 05/18/16 20:00 99.1 115 33 147/85 98 155/93 05/18/16 20:00 115 05/18/16 20:00 70 05/18/16 18:00 108 05/18/16 16:00 113 05/18/16 16:00 70 05/18/16 16:00 99.5 113 34 151/89 97 151/87 05/18/16 15:54 94 70 05/18/16 14:00 117 05/18/16 12:51 95 70 05/18/16 12:00 116 05/18/16 12:00 80 05/18/16 12:00 99.6 115 25 140/84 96 151/85 -: 05/19/16 0315 05/18/16 0308 Physical Exam General Appearance: Well Developed, Obese Neck Neck Exam: Neck Supple Pulmonary Resp Exam: Decreased Bases Cardiology CV Exam: Tachycardia Gastrointestinal/Abdomen GI Exam: Soft, Non-Tender, Distended Extremeties Extremities Exam: Moderate Edema Assessment/Plan Problem List: (1) Acute renal failure Plan: Patient is well oliguric acute renal failure and it does trended upwards to creatinine of 5.9 today He is going to have 3rd session of dialysis (2) Retroperitoneal bleed Plan: continue to observe (3) 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 Plan: Cardiology following (4) Acute hypoxemic respiratory failure Plan: On ventilator (5) Hypertensive emergency Plan: BP improved (6) Diabetes mellitus Plan: Continue monitor blood glucose (7) CAD (coronary artery disease) (8) Subsequent ST elevation (STEMI) myocardial infarction of anterior wall Problem Qualifiers (1) Acute renal failure: Qualified Code: N17.0 - Acute renal failure with tubular necrosis Linda Mcintosh MD May 19, 2016 11:46
[2016-05-19] MEDS: SODIUM BICARBONATE 8.4% INJ 100 MEQ in WATER STERILE FOR INJ 1,000 ML IV SCH (11:59)
--- NOTE | 2016-05-19 12:19 | PD.ONC.PN ---
Subjective Subjective Remarks Tmax 100.3 overnight. Pt lying in bed. He remains sedated and mechanically ventilated. Per the RN they have been able to completely stop the dopamine and they are weaning down the levophed. No bleeding. Objective Data Date Time Temp Pulse Resp B/P Pulse Ox O2 Delivery O2 Flow Rate FiO2 05/19/16 10:08 97 50 05/19/16 07:49 98 50 05/19/16 06:00 100 05/19/16 04:50 99 60 05/19/16 04:00 100.3 100 20 114/71 98 129/78 05/19/16 04:00 100 05/19/16 04:00 60 05/19/16 02:00 103 05/19/16 01:22 98 70 05/19/16 00:00 111 05/19/16 00:00 100.3 111 27 118/75 98 130/82 05/19/16 00:00 70 05/18/16 22:00 115 05/18/16 20:13 98 70 05/18/16 20:00 99.1 115 33 147/85 98 155/93 05/18/16 20:00 115 05/18/16 20:00 70 05/18/16 18:00 108 05/18/16 16:00 113 05/18/16 16:00 70 05/18/16 16:00 99.5 113 34 151/89 97 151/87 05/18/16 15:54 94 70 05/18/16 14:00 117 05/18/16 12:51 95 70 Result Diagram: 05/19/16 0315 05/18/16 0308 Laboratory Results Laboratory Tests Test 05/19/16 05/19/16 01:30 03:15 White Blood Count 23.3 TH/MM3 23.4 TH/MM3 Red Blood Count 2.86 MIL/MM3 2.90 MIL/MM3 Hemoglobin 8.3 GM/DL 8.4 GM/DL Hematocrit 24.3 % 24.8 % Mean Corpuscular Volume 84.7 FL 85.3 FL Mean Corpuscular Hemoglobin 29.1 PG 28.8 PG Mean Corpuscular Hemoglobin 34.3 % 33.8 % Concent Red Cell Distribution Width 16.5 % 16.7 % Platelet Count 274 TH/MM3 273 TH/MM3 Mean Platelet Volume 8.8 FL 8.9 FL Prothrombin Time 14.8 SEC Prothromb Time International 1.3 RATIO Ratio Activated Partial 32.0 SEC Thromboplast Time Fibrinogen 408 mg/dL Culture Results Microbiology Date/Time Procedure Status Source Growth 05/16/16 16:20 Aerobic Blood Culture - Preliminary Resulted Blood Peripheral NO GROWTH IN 3 DAYS 05/16/16 16:20 Anaerobic Blood Culture - Preliminary Resulted Blood Peripheral NO GROWTH IN 3 DAYS 05/16/16 16:25 Aerobic Blood Culture - Preliminary Resulted Blood Peripheral NO GROWTH IN 3 DAYS 05/16/16 16:25 Anaerobic Blood Culture - Preliminary Resulted Blood Peripheral NO GROWTH IN 3 DAYS 05/16/16 17:20 Gram Stain - Final Complete Sputum Endotracheal 05/16/16 17:20 Sputum Culture - Final Complete Enterobacter Aerogenes 05/18/16 07:50 Aerobic Blood Culture - Preliminary Resulted Blood Peripheral NO GROWTH IN 1 DAY 05/18/16 07:50 Anaerobic Blood Culture - Preliminary Resulted Blood Peripheral NO GROWTH IN 1 DAY Imaging Studies Last 48 hours Impressions Chest X-Ray 05/18/16 0600 Signed Impressions: Service Date/Time: May 02:51 - CONCLUSION: 1. Decreasing basilar consolidation and effusions. 2. Developing infiltrate in the right upper lobe. 3. New left IJ central venous catheter with tip in the superior vena cava. No pneumothorax. Other lines and tubes unchanged as above. Low Johnson MD Lower Extremity Ultrasound 05/18/16 0000 Signed Impressions: Service Date/Time: May 13:17 - CONCLUSION: Nonocclusive thrombus in the right posterior tibial vein. Remaining veins are otherwise patent. Carlitos Aguirre MD Administered Medications Medications (Trade) Dose Ordered Sig/Isabelle Route PRN Reason Start Time Stop Time Status Last Admin Dose Admin IV Flush (NS Flush) 2 ml BID IV FLUSH 05/05/16 21:00 05/19/16 09:17 Acetaminophen (Tylenol) 650 mg Q6H PRN PO PAIN 1-10 AND/OR FEVER >101F 05/05/16 17:15 05/15/16 11:55 Artificial Tears (Tears Naturale Opth Soln) 1 drop TID EACH EYE 05/05/16 18:00 05/19/16 09:16 Docusate Sodium (Colace) 100 mg BID PO 05/05/16 21:00 05/19/16 09:15 Miscellaneous Information 1 Q361D XX 05/05/16 17:15 05/05/16 17:15 Chlorhexidine Gluconate (Chlorhexidine 2% Cloth) Taper DAILY@04 TOP 05/06/16 04:00 05/02/17 03:59 05/17/16 04:00 Aspirin (Aspirin Chew) 81 mg DAILY CHEW 05/06/16 09:00 Hold 05/15/16 08:30 Atorvastatin Calcium (Lipitor) 20 mg DAILY PO 05/06/16 09:00 Hold 05/15/16 08:32 Sennosides (Senokot) 17.2 mg Q12H PO 05/06/16 18:00 05/19/16 05:25 Insulin Human Regular (NovoLIN R SUPPLEMENTAL SCALE) 1 Q6HR SQ 05/09/16 00:00 05/19/16 05:37 Metoprolol Tartrate (Lopressor) 25 mg Q8HR PO 05/13/16 22:00 Hold 05/15/16 14:44 Acetaminophen (Ofirmev Inj) 1,000 mg Q6H PRN IV fever 05/13/16 18:30 05/19/16 05:31 Nifedipine (Procardia Xl) 90 mg DAILY PO 05/14/16 09:00 Hold 05/15/16 08:30 Furosemide (Lasix) 20 mg BID@09,18 PO 05/15/16 18:00 Hold 05/15/16 17:22 Chlorhexidine Gluconate (Peridex 0.12% Liq) 15 ml BID@08,20 MT 05/16/16 20:00 05/19/16 09:16 Albumin Human 25 gm 25 gm Q12H IV 05/17/16 08:00 05/19/16 09:15 Sodium Chloride 1,000 ml @ 0 mls/hr Q0M PRN IV For Prime & Rinse Back 05/17/16 12:13 05/17/16 12:27 Sodium Chloride (NS 1000 ml Inj) 1,000 ml @ 200 mls/hr Q5H PRN IV WITH DIALYSIS 05/17/16 12:13 05/17/16 12:28 IV Flush (NS Flush) 5 ml UNSCH PRN IVF WITH DIALYSIS 05/17/16 12:15 05/17/16 12:29 Heparin Sodium (Porcine) (Heparin Inj) UNSCH PRN .XX WITH DIALYSIS 05/17/16 12:15 05/17/16 12:28 Gentamicin Sulfate 20 mg 20 mg UNSCH PRN IV WITH DIALYSIS 05/17/16 12:15 05/17/16 12:28 Midazolam HCl 100 ml @ 0 mls/hr TITRATE IV 05/17/16 21:45 05/18/16 14:28 Dopamine HCl 800 mg/Sodium Chloride 505 ml @ 0 mls/hr TITRATE IV 05/18/16 07:00 05/18/16 07:00 Norepinephrine Bitartrate 4 mg/ Sodium Chloride 250 ml @ 0 mls/hr TITRATE IV 05/18/16 07:00 05/19/16 04:57 Sodium Bicarbonate 100 meq/Sterile Water 1,100 ml @ 75 mls/hr [id number] IV 05/18/16 07:00 05/19/16 11:59 Micafungin Sodium 150 mg/Sodium Chloride 100 ml @ 100 mls/hr Q24H IV 05/18/16 08:00 05/19/16 09:15 Meropenem 500 mg/ Sodium Chloride 100 ml @ 200 mls/hr Q12H IV 05/18/16 21:00 05/19/16 09:15 Fentanyl Citrate (fentaNYL DRIP) 250 ml @ 0 mls/hr TITRATE IV 05/18/16 20:00 05/19/16 09:15 Objective Remarks GENERAL: Older obese male. Critically ill in the ICU on mechanical ventilation and vasopressive medications. SKIN: Warm and dry. No oozing from lines. HEAD: Normocephalic. EYES: No injection or drainage. NECK: Supple, trachea midline. CARDIOVASCULAR: +S1/S2. RESPIRATORY: Mechanically ventilated. Lungs clear anteriorly. GASTROINTESTINAL: Abdomen protuberant. EXTREMITIES: 2+ edema. SCD's in place. R leg more edematous. NEUROLOGICAL: Pt sedated on versed and fentanyl. Per RN he does not follow commands when sedation paused. Assessment/Plan Problem List: (1) Retroperitoneal bleed Status: Acute Plan: -- Lg areas of hemorrhage involving the left peritoneum psoas muscle, the mesentery as well as area adjacent to the left external iliac artery. -- Hgb stable -- CBC q8h to assess for bleed through today. (2) Anemia Status: Acute Plan: -- Due to intra-abdominal bleeding. -- Check CBC q8h. -- Transfuse to keep Hgb greater than 8. -- Daily coags. (3) Superficial thrombosis of right lower extremity Status: Acute Plan: -- US on 05/18 shows nonocclusive clot to R posterior tibial vein -- No IVC filter since this is superficial. -- No anticoagulation due to high risk of bleeding. Assessment 62 y/o male who presented to the ED with chest pain and was found to be in acute STEMI. Plan 1. Will continue CBC Q12h for today; hgb has been stable. 2. Daily coags and fibrinogen. 3. Pt remains critically ill. Overall poor prognosis. 4. Hold off on IVC filter at this time. Problem Qualifiers (1) Anemia: Jessica Canas May 19, 2016 12:19
[2016-05-19 14:18] LABS: HEMATOCRIT 22.5 % (39.0-51.0); MEAN CELL VOLUME 86.8 FL (80.0-100.0); MEAN CORPUSCULAR HEMOGLOBIN 28.4 PG (27.0-34.0); MEAN CORPUSCULAR HGB CONC 32.7 % (32.0-36.0); PLATELET COUNT 230 TH/MM3 (150-450); RED BLOOD COUNT 2.59 MIL/MM3 (4.50-5.90); RED CELL DISTRIBUTION WIDTH 16.4 % (11.6-17.2); REVIEW FLAG FINAL; WHITE BLOOD COUNT 20.3 TH/MM3 (4.0-11.0)
[2016-05-19] MEDS: GENTAMICIN SULFATE (DIALYSIS USE ONLY) 20 MG/2 ML VIAL IV PRN (16:08)
[2016-05-19] MEDS: HEPARIN SODIUM - IV 10,000 UNITS/10 ML VIAL PRN (16:08)
[2016-05-19] MEDS: MIDAZOLAM 100 MG/NS 100 ML DRIP Premix IV SCH (17:02)
--- NOTE | 2016-05-19 17:28 | HHI.PR ---
Review/Management Diagnosis bilateral basal ganglia strokes--embolic vs hypotensive Diagnosis/Plan: Subjective Subjective Comments No acute events reported bp more stable Active Medications Current Medications Medications (Trade) Dose Ordered Sig/Isabelle Route Start Time Stop Time Status Last Admin (NS Flush) 2 ml UNSCH PRN IV FLUSH 05/05/16 17:15 (NS Flush) 2 ml BID IV FLUSH 05/05/16 21:00 05/19/16 09:17 (Tylenol) 650 mg Q6H PRN PO 05/05/16 17:15 05/15/16 11:55 (Tears Naturale Opth Soln) 1 drop TID EACH EYE 05/05/16 18:00 05/19/16 17:03 (Zofran Inj) 4 mg Q6H PRN IV 05/05/16 17:15 (Colace) 100 mg BID PO 05/05/16 21:00 05/19/16 09:15 Miscellaneous Information 1 Q361D XX 05/05/16 17:15 05/05/16 17:15 (Chlorhexidine 2% Cloth) Taper DAILY@04 TOP 05/06/16 04:00 05/02/17 03:59 05/17/16 04:00 (Chlorhexidine 2% Cloth) 3 pack UNSCH PRN TOP 05/05/16 17:15 (Glucagon Inj) 1 mg UNSCH PRN OTHER 05/05/16 17:15 (Aspirin Chew) 81 mg DAILY CHEW 05/06/16 09:00 Hold 05/15/16 08:30 (Lipitor) 20 mg DAILY PO 05/06/16 09:00 Hold 05/15/16 08:32 (Senokot) 17.2 mg Q12H PO 05/06/16 18:00 05/19/16 17:03 (D50w (Vial) Inj) 25 ml UNSCH PRN IV PUSH 05/08/16 21:00 (NovoLIN R SUPPLEMENTAL SCALE) 1 Q6HR SQ 05/09/16 00:00 05/19/16 17:04 (Pill Splitter) 1 ea UNSCH PRN OTHER 05/11/16 15:15 (Lopressor) 25 mg Q8HR PO 05/13/16 22:00 Hold 05/15/16 14:44 (Ofirmev Inj) 1,000 mg Q6H PRN IV 05/13/16 18:30 05/19/16 05:31 (Procardia Xl) 90 mg DAILY PO 05/14/16 09:00 Hold 05/15/16 08:30 (Lasix) 20 mg BID@09,18 PO 05/15/16 18:00 Hold 05/15/16 17:22 (Peridex 0.12% Liq) 15 ml BID@08,20 MT 05/16/16 20:00 05/19/16 09:16 Albumin Human 25 gm 25 gm Q12H IV 05/17/16 08:00 05/19/16 09:15 (NS 1000 ml Inj) 1,000 ml @ 0 mls/hr Q0M PRN IV 05/17/16 12:13 05/17/16 12:27 Heparin Sodium (Porcine) 8000 units 8,000 units UNSCH PRN IVF 05/17/16 12:15 Sodium Chloride 1,000 ml @ 200 mls/hr Q5H PRN IV 05/17/16 12:13 05/17/16 12:28 (NS 1000 ml Inj) 1,000 ml @ 0 mls/hr Q0M PRN IV 05/17/16 12:13 (Mannitol Inj) 12.5 gm UNSCH PRN IV 05/17/16 12:15 (Albumin 25% Inj) 25 gm UNSCH PRN IV 05/17/16 12:15 (NS Flush) 5 ml UNSCH PRN IVF 05/17/16 12:15 05/17/16 12:29 (Heparin Inj) UNSCH PRN .XX 05/17/16 12:15 05/19/16 16:08 (Gentamicin (Dialysis) Inj) 20 mg UNSCH PRN IV 05/17/16 12:15 05/19/16 16:08 (Zofran Inj) 4 mg UNSCH PRN IV 05/17/16 12:15 (Tylenol) 650 mg UNSCH PRN PO 05/17/16 12:15 (Benadryl) 25 mg UNSCH PRN PO 05/17/16 12:15 (Gelfoam 12 Mm/7 Mm Top) 1 foam UNSCH PRN TOP 05/17/16 12:15 (Epogen Inj) 10,000 units UNSCH PRN IV 05/17/16 12:15 Terbutaline Sulfate 1 mg 1 mg UNSCH PRN SQ 05/17/16 13:45 Midazolam HCl 100 ml @ 0 mls/hr TITRATE IV 05/17/16 21:45 05/19/16 17:02 Dopamine HCl 800 mg/Sodium Chloride 505 ml @ 0 mls/hr TITRATE IV 05/18/16 07:00 05/18/16 07:00 Norepinephrine Bitartrate 4 mg/ Sodium Chloride 250 ml @ 0 mls/hr TITRATE IV 05/18/16 07:00 05/19/16 17:18 Sodium Bicarbonate 100 meq/Sterile Water 1,100 ml @ 75 mls/hr [id number] IV 05/18/16 07:00 05/19/16 11:59 Micafungin Sodium 150 mg/Sodium Chloride 100 ml @ 100 mls/hr Q24H IV 05/18/16 08:00 05/19/16 09:15 Meropenem 500 mg/ Sodium Chloride 100 ml @ 200 mls/hr Q12H IV 05/18/16 21:00 05/19/16 09:15 (fentaNYL DRIP) 250 ml @ 0 mls/hr TITRATE IV 05/18/16 20:00 05/19/16 09:15 Allergies Allergies Coded Allergies Penicillin (Verified Allergy, Mild, "I GO CRAZY", 09/01/15) Exam I&O / VS 05/18/16 05/18/16 05/19/16 15:00 23:00 07:00 Intake Total 2363 ml 1176 ml 1185 ml Output Total 3030 ml 20 ml 10 ml Balance -667 ml 1156 ml 1175 ml IV Total 2363 ml 1076 ml 1125 ml Albumin 100 ml Other 60 ml Output Urine Total 30 ml 20 ml 10 ml Hemodialysis 3000 ml # Bowel Movements 0 0 Vital Signs Date Time Temp Pulse Resp B/P Pulse Ox O2 Delivery O2 Flow Rate FiO2 05/19/16 16:00 50 05/19/16 16:00 110 05/19/16 16:00 99.5 110 20 108/66 97 111/71 05/19/16 14:00 101 05/19/16 12:00 99.2 101 20 111/71 100 122/73 05/19/16 12:00 101 05/19/16 12:00 50 05/19/16 10:08 97 50 05/19/16 10:00 103 05/19/16 08:00 99.6 98 20 114/75 98 131/77 05/19/16 08:00 98 05/19/16 08:00 50 05/19/16 07:49 98 50 05/19/16 06:00 100 05/19/16 04:50 99 60 05/19/16 04:00 100.3 100 20 114/71 98 129/78 05/19/16 04:00 100 05/19/16 04:00 60 05/19/16 02:00 103 05/19/16 01:22 98 70 05/19/16 00:00 111 05/19/16 00:00 100.3 111 27 118/75 98 130/82 05/19/16 00:00 70 05/18/16 22:00 115 05/18/16 20:13 98 70 05/18/16 20:00 99.1 115 33 147/85 98 155/93 05/18/16 20:00 115 05/18/16 20:00 70 05/18/16 18:00 108 Exam Comments sedated, nonresponsive perrl no spontaneous limb movement, no posturing Objective Micro and Labs Laboratory Tests Test 05/19/16 05/19/16 05/19/16 01:30 03:15 13:15 White Blood Count 23.3 23.4 20.3 Red Blood Count 2.86 2.90 2.59 Hemoglobin 8.3 8.4 7.4 Hematocrit 24.3 24.8 22.5 Mean Corpuscular Volume 84.7 85.3 86.8 Mean Corpuscular Hemoglobin 29.1 28.8 28.4 Mean Corpuscular Hemoglobin 34.3 33.8 32.7 Concent Red Cell Distribution Width 16.5 16.7 16.4 Platelet Count 274 273 230 Mean Platelet Volume 8.8 8.9 8.7 Prothrombin Time 14.8 Prothromb Time International 1.3 Ratio Activated Partial 32.0 Thromboplast Time Fibrinogen 408 Date/Time Procedure Status Source Growth 05/18/16 07:50 Aerobic Blood Culture - Preliminary Resulted Blood Peripheral NO GROWTH IN 1 DAY 05/18/16 07:50 Anaerobic Blood Culture - Preliminary Resulted Blood Peripheral NO GROWTH IN 1 DAY 05/16/16 17:20 Gram Stain - Final Complete Sputum Endotracheal 05/16/16 17:20 Sputum Culture - Final Complete Enterobacter Aerogenes 05/16/16 07:40 Urine Culture - Final Complete Urine Catheterized Urine NO GROWTH IN 48 HOURS. Jatinder Felix PhD May 19, 2016 17:28
--- NOTE | 2016-05-19 17:33 | HHI.CCPN ---
Subjective Remarks/Hospital Course 61-year-old AA male. Date of admission 05/05/2016. Date of consultation 2016. Past medical history includes hypertensive heart disease, hypertension, diabetes mellitus type 2 and spinal stenosis. He presented to [facility] today with history of acute onset of diaphoresis, chest pain and syncope. Her documentation, Chest pain was 7 out of 10 without radiation. Later in the hospital physician, patient did have ST elevation anterior septal leads. I he had a cardiac catheterization in 2009 which revealed moderate coronary disease which documented 50-60% stenosis in the LAD diagonals 1 and 2. Recommended medical management at that time. Dr. Marcano was notified and proceed to the cardiac catheter lab. Patient sees heparin and one aspirin prior to cardiac catheterization. During heart catheterization,, patient became hypertensive, tachypneic, hypoxic and agitated including abdominal pain with nausea and vomiting. Patient was intubated by Dr. Simon and dispensed transferred to room 505a. Currently hemodynamic stable on a propofol drip. 05/06: Patient required additional sedation overnight. Was moving all 4 extremity spontaneously and strongly. Potassium is replaced overnight along with magnesium. This afternoon approximate 4 PM, patient went into a sinus bradycardia in the 40s. RN cannot locate pulse and possibly went into a PEA arrest. Patient received CPR for approximately 2 minutes. ROSC return immediately. Received 1 mg of epinephrine IV. Blood pressure was 240 systolic. Saturations were above 90% the entire time. Dr. Marcano was made aware. No new recommendations at this time. Electrolytes currently pending. Patient is currently hemodynamic stable and an arterial line/left radial has been placed 05/07: no improvement in delirium or mental status. spiking low grade fevers. 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 CT surgery consulted and declined to operate here: he will need referral once stabilized. fio2 requirements still high. CT chest also with evidence of bibasilar consolidation which may be aspiration pneumonitis vs. pneumonia now that we are 48h out from initial presentation and now spiking fevers. 05/08: delirium persists. continues to spike fevers. jolly cultured yesterday without results yet. holding sedation today. 05/09: delirium slightly improved. waking up on SAT, weakly following commands. cultures still NGTD. hypoxia slightly improved. 05/10: delirium improving. weakly following commands still. cultures still NGTD. fevers persist, although fever curve appears to be improving. hypoxia continues to improve. still remains very critically ill. 05/11: Tmax 99.9. Currently 99.1. Tolerating tube feeding. One bowel movement. Continues to have difficulty weaning ventilator. 05/12: Currently afebrile. Tolerating tube feeding. Positive BM. Increased FiO2 from 45-60%. +1 L. Arousable on sedation vacation and weakly follows commands. 05/13: Remains intubated, sedated. FiO2 now reduced to 45% (was 55% today am). Start weaning trials after starting Precedex. To control BP May use Cardene, given anomalous RCA 05/14: Extubated yesterday, remained on BiPAP overnight. Intermittently agitated. Following commands to me today, while on BiPAP. Remains on Cardene infusion for uncontrolled hypertension. Urine output 4.7 L in 24 hours 05/15: On 3 L nasal cannula. Fever trending down, breathing more comfortably. Able to communicate. Discussed with Dr. Marcano. Dr. Pendleton will be available tomorrow, will probably need transfer to [facility] for RCA unroofing 05/16: Acutely hypotensive overnight with tachycardia. MAP was 55 with greater than 130s. Received 3.5 L of normal saline bolus with improvement in blood pressure and heart rate. Lethargic on BiPAP. ABG pending, HB dropped from 10.9 to 7.8. No obvious source of bleeding. STAT 2U PRBC. STAT CT head and CT abd pelvis. R/O ICH or RP bleed. Patient received only 5mg Nicci at 2100 yesterday, no other sedation. Last dose of Lovenox was at 211, held now 05/17: Developed Hemorrhagic shock from large retroperitoneal hemorrhage night to 05/15/16. Stabilized after 3 units of PRBC and protamine. Hemoglobin 8.7 today. Remain encephalopathy and unresponsive yesterday. MRI 05/16/16 shows small punctate white matter infarcts, bilateral basal ganglia infarcts. Urology consult pending. Antiplatelet drugs on hold. Now with anuria from ATN secondary to shock. Nephrology consult pending 05/18: Developed sudden onset bradycardia in 40s, with acute hypotension yesterday evening around 5 PM. ACLS protocol initiated (did not arrest or lose pulse). Received multiple epinephrine, bicarbonate calcium and fluid boluses. Patient was placed on dopamine 20 mics per KG per minute, Levophed 20 mics per KG per minute, epinephrine 2.5 mics per minute and eventually stabilized with systolic blood pressure reading 120s. Hemoglobin on ABG was 7 and emergently transfused 3 units PRBC and 2 units FFP. Lab hemoglobin came back at 6.8. Patient also was profoundly acidemic with pH of 7.16. Patient received total 3 A of bicarbonate and bicarbonate infusion was started, minute ventilation was also increased. Subjective 05/19: MAXIMUM TEMPERATURE 100.3. Currently 99.5. No bowel movement. Tube feeds were restarted. FiO2 50%. PEEP at 8. Objective Vital Signs Date Time Temp Pulse Resp B/P Pulse Ox O2 Delivery O2 Flow Rate FiO2 05/19/16 16:00 50 05/19/16 16:00 110 05/19/16 16:00 99.5 20 108/66 97 111/71 05/18/16 07:00 Mechanical Ventilator 05/15/16 20:59 3.00 Intake and Output 05/18/16 05/18/16 05/19/16 08:00 16:00 00:00 Intake Total 1864 ml 2363 ml 1176 ml Output Total 175 ml 3030 ml 20 ml Balance 1689 ml -667 ml 1156 ml Result Diagram: 05/19/16 1315 05/18/16 0308 Other Results Microbiology Date/Time Procedure Status Source Growth 05/18/16 07:50 Aerobic Blood Culture - Preliminary Resulted Blood Peripheral NO GROWTH IN 1 DAY 05/18/16 07:50 Anaerobic Blood Culture - Preliminary Resulted Blood Peripheral NO GROWTH IN 1 DAY 05/16/16 17:20 Gram Stain - Final Complete Sputum Endotracheal 05/16/16 17:20 Sputum Culture - Final Complete Enterobacter Aerogenes 05/16/16 07:40 Urine Culture - Final Complete Urine Catheterized Urine NO GROWTH IN 48 HOURS. Imaging Last Impressions Chest X-Ray 05/18/16 0600 Signed Impressions: Service Date/Time: May 02:51 - CONCLUSION: 1. Decreasing basilar consolidation and effusions. 2. Developing infiltrate in the right upper lobe. 3. New left IJ central venous catheter with tip in the superior vena cava. No pneumothorax. Other lines and tubes unchanged as above. Low Johnson MD Lower Extremity Ultrasound 05/18/16 0000 Signed Impressions: Service Date/Time: May 13:17 - CONCLUSION: Nonocclusive thrombus in the right posterior tibial vein. Remaining veins are otherwise patent. Carlitos Aguirre MD Head CT 05/16/16 0000 Signed Impressions: Service Date/Time: Monday, May 16, 2016 08:30 - CONCLUSION: Suspected bilateral basal ganglia calcifications are unchanged. No evidence of hemorrhage, edema, mass or mass effect. Stephen Quintanilla MD Brain MRI 05/16/16 0000 Signed Impressions: Service Date/Time: Monday, May 16, 2016 15:46 - CONCLUSION: 1. Small punctate areas of white matter infarction without cortical extension or hemorrhage. There is no significant mass effect. 2. Bilateral basal ganglia infarcts measuring 1 cm Bobby Lamas MD Abdomen/Pelvis CT 05/16/16 0000 Signed Impressions: Service Date/Time: Monday, May 16, 2016 08:39 - CONCLUSION: There are large areas of hemorrhage including the left retroperitoneum and psoas muscle, within the mesentery and a smaller area in the right psoas muscle. They don't appear to be related to the abdominal aorta or the internal iliac arteries. There is a small focal collection hemorrhage adjacent to the left external iliac artery as it enters the pelvis, but I don't believe that is related to the large amount of hemorrhage seen elsewhere. The areas of hemorrhage are large and multi-focal. Stephen Quintanilla MD Upper Extremity Ultrasound 05/10/16 0000 Signed Impressions: Service Date/Time: Tuesday, May 10, 2016 09:44 - CONCLUSION: Occlusive thrombus in the right cephalic vein. Otherwise negative Shahid Sin MD CT Angiography 05/06/16 0000 Signed Impressions: Service Date/Time: Saturday, May 07, 2016 00:04 - CONCLUSION: 1. Lobar consolidation bilaterally in the lower lobes. 2. Negative for pulmonary embolism. Michael Colbert MD Objective Remarks GENERAL: 61-year-old AA male, morbidly obese, intubated sedated with versed, critically ill SKIN: Warm and dry. No rash HEAD: Atraumatic. Normocephalic. EYES: Pupils equal and round around 2-3 mm bilaterally and slightly reactive. No scleral icterus. No injection or drainage. ENT: No nasal bleeding or discharge. Orotracheally intubated NECK: Trachea midline. JVD difficult to assess due to body habitus. Left IJ triple-lumen, right IJ Vas-Cath CARDIOVASCULAR: Distant due to body habitus. Regular rate and rhythm. S1, S2. Without murmur RESPIRATORY: Diminished breath sounds bilaterally due to body habitus. Breath sounds equal bilaterally. On ACV GASTROINTESTINAL: Abdomen obese, non-tender, protuberant, distended. no guarding. MUSCULOSKELETAL: Extremities without significant peripheral edema. Right femoral arterial line NEUROLOGICAL: Patient is sedated on Versed infusion. Pupils are sluggishly reactive. No withdrawal to pain today. A/P Assessment and Plan Neuro/Psych: Bilateral basal ganglia infarcts, small punctate white matter infarcts on MRI Acute toxic metabolic encephalopathy Versed at 2 mg an hour/fentanyl at 150 g a minute hour for sedation/analgesia while intubated Goal of RASS -2 Daily sedation vacation Neurology consulted Dr. Felix MRI of the brain done 05/16/16 shows small punctate white matter infarcts, bilateral basal ganglia infarcts Off Seroquel and Haldol due to nonsustained V. tach Head CT 05/08, 05/16: negative acute. EEG 05/12 revealed generalized slowing right greater than left. No epileptiform activity. EEG 05/16: No seizure, severe encephalopathy CV: Hemorrhagic shock due to left retroperitoneal hemorrhage-shock resolved Severe bradycardia and hypotension 05/17/16 most likely secondary to recurrent bleed Aberrant RCA off LCC Nonsustained V. tach single episode Diastolic heart failure Coronary artery disease Nonischemic cardiomyopathy secondary to hypertensive heart disease Hypertensive emergency On 05/17/16: Developed sudden onset bradycardia in 40s, with acute hypotension yesterday evening around 5 PM. ACLS protocol initiated Received multiple epinephrine, bicarbonate calcium and fluid boluses. Placed on dopamine 20 mics per KG per minute, Levophed 20 mics per KG per minute, epinephrine 2.5 mics per minute and eventually stabilized with systolic blood pressure reading 120s. Hemoglobin came back at 6.8-3U prbc and 2U FFP given . Patient also was profoundly acidemic with pH of 7.16, received total 3 A of bicarbonate and bicarbonate infusion was started, minute ventilation was also increased. On 05/16/16 patient received 4 L normal saline boluses, 3 units PRBC Currently remains on 2 mcg/kg per minute of Levophed Discontinue all antihypertensives and beta blockers Status post cardiac catheterization by Dr. Moy. No intervention performed. Known coronary artery artery disease to the first and second diagonals the LAD. Aberrant RCA off left coronary cups. Transfer to fo RCA unroofing once clinically stable Aspirin 81 mg on hold due to RP hemorrhage. (Plavix DC d 05/15/[address] Marcano in anticipation of probable unroofing surgery) Hold Lipitor 20 mg a night. Hold Procardia XL 90 mg,metoprolol 25 mg by mouth every 8 hours, clonidine 0.2 mg by mouth every 8 hours ALL held due to hypotension shock Holding Lasix 20 mg po BID (Holding home medications of hydrochlorothiazide 25 mg daily, spironolactone 50 mg twice a day) Pulm: Acute hypoxemic respiratory failure-extubated 05/13/16, re intubated 05/16/16 for airway protection Likely underlying STU Extubated 05/13/16. Reintubated 05/16/16 for airway protection due to severe encephalopathy No spontaneous breathing trials today due to severe shock and severe encephalopathy. Reassess in a.m. Chest x-ray shows new infiltrate right upper lobe ACV 20/600/8/50 Ventilator bundle Bronchodilator therapy every 6 hours and as needed. Follow up chest x-ray/ABG in a.m. GI: Acute large left retroperitoneal hemorrhage Hypoalbuminemia Constipation- resolved. Resume Nepro at 50 cc an hour Supportive care with blood transfusion and correction of coagulopathy Continue Protonix for GI prophylaxis Colace/Senokot twice a day for bowel regimen, /Renal: Acute kidney failure due to ATN Anuria Chaudhry for accurate I's and O's in a critically ill patient Nephrology consulted, HD started 05/17/16 Currently on bicarbonate drip at 75 cc an hour Endo: Diabetes mellitus type 2 Hyperglycemia Sliding-scale insulin Accu-Cheks to maintain euglycemia. Medium regimen every 6 hours per last blood sugar 201 Heme: Acute blood loss anemia with shock Large left retroperitoneal hemorrhage Right cephalic superficial thrombus/right PT DVT Normocytic anemia Transfused 3 units PRBC stat on 05/16/16 Transfused 3 units PRBC and 2 units FFP Transfuse 1 unit PRBCs today. Check hemoglobin at 1999 Therapeutic Lovenox discontinued, aspirin placed on hold 75 mg IV protamine slow infusion (D/W with Dr. grimes) on 05/16/16. Continues to bleed consult IR for possible embolization Hematology consulted, recommends against anticoagulation and IVC filter CBC daily. Monitor trends. No active bleeding. Was on Lovenox 150 mg subcutaneous twice a day-DCd 05/16/16 ID: Aspiration pneumonia/Enterobacter aerogenes in sputum --2/2 Sputum culture with Enterobacter. ID changed antibiotics to meropenem, micafungin and vancomycin --(Started cefepime and Flagyl on 05/16/16. A single dose of vancomycin given. Cefepime DCd) --Tmax 100.5 Pertinent cultures 05/07 - blood cultures 2 - negative 05/08 - sputum - negative 05/08 - urine - negative 05/08 - blood cultures - negative 05/13 - blood cx negative 05/13 - urine cx negative 05/16 - sputum Enterobacter aerogenes 05/16 - urine neg 131 - blood cultures neg MSK: History of spinal stenosis/laminectomy/left total knee replacement and left ring finger amputation PT evaluate and treat Access - Prophylaxis - GI - Protonix - DVT -DCd Lovenox. SCD on L leg - Check venous doppler if clinically indicated Critical Care: The total critical care time was 55 minutes. Time to perform other separately billable procedures was not included in the critical care time. Brett Abrams MD May 19, 2016 17:33
[2016-05-19] MEDS ORDERED: MIDAZOLAM HCL 5 MG/5 ML VIAL IV PUSH ONE (19:15)
[2016-05-19] MEDS ORDERED: ROCURONIUM INJ 100 MG/10 ML VIAL IV ONE (19:15)
[2016-05-19] MEDS ORDERED: MIDAZOLAM HCL 5 MG/ML VIAL (1 ML) ONE (19:28)
--- NOTE | 2016-05-19 19:50 | PD.PROCEDR ---
Procedure Note Procedure Procedure: Fiberoptic Bronchoscopy Diagnosis/Indication: Respiratory failure, unable to wean off the ventilator Consent: Informed consent obtained and a time out performed Anesthesia: Continuos sedation with propofol. Sedated with 10 mg iv Versed and on versed/fentanyl gtt for sedation. Neuromuscular paralysis with rocuronium 50mg IV once Description of the Procedure: The patient was sedated and mechanically ventilated, was placed on 100% FIO2 and a volume control mode of ventilation. The fiberoptic bronchoscopy was inserted via endotracheal tube The endobronchial anatomy and mucosa was normal, large amount of thick yellow secretions removed from RUL after copious lavage with 30 cc sterile water. BAL sent. The remainder of RML, RLL, KATE and LLL were evaluated and without significant secretions. The patient tolerated the procedure well with no hemodynamic instability or hypoxia. There were no immediate complications noted. EBL for bronchoscopy have was negligible. Brett Abrams MD May 19, 2016 19:50
[2016-05-19 19:53] LABS: BLOOD GAS BASE EXCESS 2.2 mmol/L (-2-2); BLOOD GAS HCO3 27 mmol/L (22-26); BLOOD GAS METHEMOGLOBIN 1.3 % (0-2); BLOOD GAS O2 HGB SATURATION 94 % (90-100); BLOOD GAS OXYGEN CONTENT 10.7 Vol % (12.0-20.0); BLOOD GAS PCO2 43 mmHg (38-42); BLOOD GAS PO2 92 mmHg (61-120); BLOOD GAS TOTAL HGB 8.1 G/DL (12.0-16.0); TEMP CORR TO 98.6
[2016-05-19 19:54] LABS: CRITICAL VALUE NO; FIO2 100 %; OXYGEN DEVICE VENTILATOR
[2016-05-19 19:55] LABS: DRAW SITE ART LINE; STAT NO; VENT SETTINGS SEE COMMENTS
--- NOTE | 2016-05-19 19:59 | RADRPT ---
EXAM DATE/TIME: 05/19/2016 19:00 [facility] COMPARISON: CHEST SINGLE AP, May 17, 2016, 11:14. CHEST SINGLE AP, May 18, 2016, 2:51. INDICATIONS : Shortness of breath MEDICAL HISTORY : Hypertension. Diabetes mellitus type II. Cardiovascular disease. SURGICAL HISTORY : None. ENCOUNTER: Subsequent ACUITY: 1 week PAIN SCORE: Non-responsive. LOCATION: Bilateral chest FINDINGS: Worsening right upper lobe opacity characteristic of collapsed lung. Lines and tubes are present not significantly changed. There is perivascular haziness mainly on the left side not changed may represe nt pulmonary edema. CONCLUSION: No change in pulmonary edema and worsening right upper lung opacity characteristic of collapsed lung and possibility of mucous plugging should be entertained. Rose Mary Frances MD on May 19, 2016 at 19:55 Board Certified Radiologist. This report was verified electronically.
--- NOTE | 2016-05-19 20:49 | RADRPT ---
EXAM DATE/TIME: 05/19/2016 19:52 [facility] COMPARISON: CHEST SINGLE AP, May 18, 2016, 2:51. CHEST SINGLE AP, May 19, 2016, 19:00. INDICATIONS : Status Post Bronchoscopy. MEDICAL HISTORY : Hypertension. Diabetes mellitus type II. Cardiovascular disease. SURGICAL HISTORY : None. ENCOUNTER: Initial ACUITY: 1 day PAIN SCORE: Non-responsive. LOCATION: Bilateral chest FINDINGS: Lines and tubes are present not significantly changed. There is significant improvement in aeration o f right upper lobe with mild haziness remaining. Perivascular haziness most likely pulmonary edema is again seen appears questionably slightly worse with worsening bibasilar opacities. CONCLUSION: Significant improvement in aeration right upper lobe and basically complete resolution of previously seen collapse. There is however worsening perivascular opacities and bibasilar opacities since the pr ior study. Rose Mary Frances MD on May 19, 2016 at 20:45 Board Certified Radiologist. This report was verified electronically.
[2016-05-19] MEDS: RESP: ALBUTEROL 2.5 MG/IPRATROPIUM 0.5 MG NEB (PRN) INH (21:14)
[2016-05-19] MEDS ORDERED: RESP: ALBUTEROL 2.5 MG/IPRATROPIUM 0.5 MG NEB (SCH) NEB (22:00)
[2016-05-19] MEDS ORDERED: RESP: SODIUM CHLORIDE 3% 4 ML NEB NEB SCH (22:00)
[2016-05-19 22:47] LABS: BRONCHOALVEOLAR LAVAGE RBC 66 /MM3; BRONCHOALVEOLAR LAVAGE WBC 1790 /MM3; LAVAGE TOTAL WBC COUNT 12.5 MILLION (4.7-7.1)
[2016-05-19 22:53] LABS: HEMATOCRIT 23.3 % (39.0-51.0); MEAN CORPUSCULAR HEMOGLOBIN 28.9 PG (27.0-34.0); PLATELET COUNT 212 TH/MM3 (150-450); RED BLOOD COUNT 2.74 MIL/MM3 (4.50-5.90); REVIEW FLAG FINAL; WHITE BLOOD COUNT 17.7 TH/MM3 (4.0-11.0)
[2016-05-19 22:59] LABS: BRONCHOAVEOLAR LYMPHOCYTES 0 %; BRONCHOAVEOLAR NEUTROPHILS 100 %
[2016-05-19] MEDS: RESP: SODIUM CHLORIDE 3% 4 ML NEB NEB SCH (23:51)
[2016-05-20] VITALS (20 sets, daily range): BP systolic 109–133; BP diastolic 68–87; PULSE 102–109; RESP 20–21; TEMP 97.6–100.9; O2SAT 92–100
[2016-05-20] MEDS ORDERED: SODIUM CHLOR 0.9% 250 ML INJ 250 ML IV ONE
[2016-05-20] MEDS: SODIUM BICARBONATE 8.4% INJ 100 MEQ in WATER STERILE FOR INJ 1,000 ML IV SCH (02:50)
[2016-05-20] MEDS: CHLORHEXIDINE GLUCONATE 2 % 1 PACK (2 CLOTHS) TOP SCH (02:50)
[2016-05-20] MEDS: RESP: ALBUTEROL 2.5 MG/IPRATROPIUM 0.5 MG NEB (SCH) NEB ×5 (03:18→19:59)
[2016-05-20] MEDS: RESP: SODIUM CHLORIDE 3% 4 ML NEB NEB SCH ×5 (03:19→19:58)
--- NOTE | 2016-05-20 04:12 | RADRPT ---
EXAM DATE/TIME: 05/20/2016 02:52 [facility] COMPARISON: CHEST SINGLE AP, May 19, 2016, 19:52. INDICATIONS : Shortness of breath, possible pulmonary disease. MEDICAL HISTORY : Hypertension. Diabetes mellitus type II. Cardiovascular disease. SURGICAL HISTORY : None. ENCOUNTER: Subsequent ACUITY: 1 week PAIN SCORE: Non-responsive. LOCATION: Bilateral chest FINDINGS: Portable AP view of the chest demonstrates a normal-sized cardiac silhouette. Right IJ line, left IJ line, ETT, and nasogastric tube remain present. Lungs are underinflated and there is bibasilar opacit y. No pneumothorax is visualized. CONCLUSION: Stable chest x-ray with underinflation and bibasilar opacity which could represent effusion, consoli dation, and/or atelectasis. Low Narvaez MD on May 20, 2016 at 4:10 Board Certified Radiologist. This report was verified electronically.
[2016-05-20 05:10] LABS: AUTOMATED NEUTROPHIL # 14.4 TH/MM3 (1.8-7.7); BASOPHIL # 0.1 TH/MM3 (0-0.2); BASOPHIL % 0.5 % (0.0-2.0); EOSINOPHIL # 0.3 TH/MM3 (0-0.4); EOSINOPHIL % 1.8 % (0.0-4.0); HEMATOCRIT 25.5 % (39.0-51.0); LYMPHOCYTE # 1.4 TH/MM3 (1.0-4.8); MEAN CELL VOLUME 86.2 FL (80.0-100.0); MEAN CORPUSCULAR HEMOGLOBIN 28.9 PG (27.0-34.0); MEAN CORPUSCULAR HGB CONC 33.5 % (32.0-36.0); MONO % 5.5 % (0.0-8.0); NEUT % 84.2 % (16.0-70.0); PLATELET COUNT 200 TH/MM3 (150-450); RED BLOOD COUNT 2.95 MIL/MM3 (4.50-5.90); RED CELL DISTRIBUTION WIDTH 16.1 % (11.6-17.2); WHITE BLOOD COUNT 17.1 TH/MM3 (4.0-11.0)
[2016-05-20 05:12] LABS: HEMO FLAGS AUTO DIFF
[2016-05-20 05:29] LABS: APTT (PATIENT) 31.1 SEC (24.3-30.1); INTERNATIONAL NORMALIZED RATIO 1.1 RATIO; PROTHROMBIN TIME - PATIENT 12.6 SEC (9.8-11.6)
[2016-05-20 05:41] LABS: BLOOD GAS BASE EXCESS 1.1 mmol/L (-2-2); BLOOD GAS CARBOXYHEMOGLOBIN 1.3 % (0-4); BLOOD GAS HCO3 26 mmol/L (22-26); BLOOD GAS METHEMOGLOBIN 1.1 % (0-2); BLOOD GAS O2 HGB SATURATION 96 % (90-100); BLOOD GAS PCO2 51 mmHg (38-42); BLOOD GAS PO2 121 mmHg (61-120); TEMP CORR TO 98.6
[2016-05-20 05:43] LABS: CRITICAL VALUE YES
[2016-05-20 05:44] LABS: OXYGEN DEVICE VENTILATOR
[2016-05-20 05:44] LABS: ALKALINE PHOSPHATASE 70 U/L (45-117); ALT (GPT) 952 U/L (12-78); ANION GAP 12 MEQ/L (5-15); AST (GOT) 1113 U/L (15-37); BICARBONATE 28.5 MEQ/L (21.0-32.0); BLOOD UREA NITROGEN 72 MG/DL (7-18); CHLORIDE 102 MEQ/L (98-107); GLOMERULAR FILTRATION RATE 11 ML/MIN (>89); POTASSIUM 4.2 MEQ/L (3.5-5.1); SODIUM (NA) 142 MEQ/L (136-145)
[2016-05-20 05:45] LABS: DRAW SITE ART LINE; FIO2 100 %; STAT NO; VENT SETTINGS SEE COMMENTS
[2016-05-20] MEDS: INSULIN NovoLIN REGULAR SUPPLEMENTAL SCALE SQ SCH ×3 (06:00→17:50)
[2016-05-20] MEDS: SENNOSIDES 8.6 MG TAB PO SCH ×2 (06:13→18:01)
[2016-05-20] MEDS: ALBUMIN HUMAN 25% 25 GM/100 ML BAGP IV SCH ×2 (08:05→20:49)
[2016-05-20] MEDS: MICAFUNGIN INJ 150 MG in SODIUM CHLORIDE 0.9% INJ 100 ML IV SCH (08:05)
[2016-05-20] MEDS: CHLORHEXIDINE 0.12% (ORAL KIT) 15 ML CUP MT SCH ×2 (08:06→20:49)
[2016-05-20] MEDS: SODIUM CHLORIDE 0.9% FLUSH 5 ML FLUSH IV FLUSH SCH ×2 (08:06→20:49)
[2016-05-20] MEDS: DOCUSATE SODIUM 100 MG CAP PO SCH ×2 (08:06→20:49)
[2016-05-20] MEDS: MEROPENEM INJ 500 MG in SODIUM CHLORIDE 0.9% INJ 100 ML IV SCH ×2 (08:06→20:49)
[2016-05-20] MEDS: ARTIFICIAL TEARS OPTH SOLN 15 ML BTL EACH EYE SCH ×3 (08:07→17:49)
[2016-05-20] MEDS: fentaNYL 2,500 MCG/NS 250 ML IV SCH (09:22)
[2016-05-20 10:49] LABS: BANDS 10 % (0-6); BASOPHILS 1 % (0-2); EOSINOPHILS 2 % (0-4); METAMYELOCYTES 2 % (0-1); MYELOCYTES 1 % (0-0); NEUTROPHIL # MANUAL DIFF 13.2 TH/MM3 (1.8-7.7); POLYS (SEG NEUTROPHILS) 64 % (16-70); WBC DIFF SAMPLE 100
[2016-05-20 10:50] LABS: PLATELET ESTIMATE SMEAR NORMAL (NORMAL); PLATELET MORPHOLOGY NORMAL (NORMAL); POLYCHROMASIA 2.7 % (0.0-1.9); SCAN/DIFF FINAL DIFF MANUAL
--- NOTE | 2016-05-20 11:45 | HHI.NPPN ---
Subjective History of Present Illness 61 year old with ARF, CHF, Respiratory failure Additional Remarks Patient intubated, tolerated HD yesterday Objective Data Data 05/19/16 05/20/16 19:00 07:00 Intake Total 2050 ml 2356 ml Output Total 3020 ml 30 ml Balance -970 ml 2326 ml IV Total 1990 ml 1556 ml Albumin 60 ml 100 ml Packed Cells 580 ml Other 120 ml Output Urine Total 20 ml 30 ml Hemodialysis 3000 ml # Bowel Movements 1 0 Vital Signs Date Time Temp Pulse Resp B/P Pulse Ox O2 Delivery O2 Flow Rate FiO2 05/20/16 11:30 93 85 05/20/16 10:00 105 05/20/16 08:00 108 05/20/16 08:00 85 05/20/16 08:00 100.9 108 20 114/72 97 118/74 05/20/16 07:36 96 90 05/20/16 06:24 92 100 05/20/16 06:01 95 90 05/20/16 06:00 108 05/20/16 04:40 97 100 05/20/16 04:00 99.3 109 20 109/68 97 123/76 05/20/16 04:00 109 05/20/16 04:00 100 05/20/16 02:00 109 05/20/16 01:09 97 100 05/20/16 00:00 103 05/20/16 00:00 99.7 103 20 113/68 97 117/77 05/20/16 00:00 100 05/19/16 22:00 102 05/19/16 21:14 92 100 05/19/16 20:00 100 05/19/16 20:00 109 05/19/16 20:00 99.7 109 20 101/67 98 108/72 05/19/16 19:49 95 100 05/19/16 18:50 96 100 05/19/16 16:00 50 05/19/16 16:00 110 05/19/16 16:00 99.5 110 20 108/66 97 111/71 05/19/16 14:47 96 50 05/19/16 14:00 101 05/19/16 12:00 99.2 101 20 111/71 100 122/73 05/19/16 12:00 101 05/19/16 12:00 50 -: 05/20/16 0455 05/20/16 0455 Microbiology 05/19/16 Gram Stain - Final, Resulted 05/19/16 Bronchial Culture, Resulted Pending 05/19/16 Acid Fast Stain, Received Pending 05/19/16 Mycobacterial Culture, Received Pending 05/19/16 Fungal Smear - Final, Resulted NO FUNGAL ELEMENTS SEEN. 05/19/16 Fungal Culture, Resulted Pending Physical Exam General Appearance: Well Developed, Obese Neck Neck Exam: Neck Supple Pulmonary Resp Exam: Decreased Bases Cardiology CV Exam: Tachycardia Gastrointestinal/Abdomen GI Exam: Soft, Non-Tender, Distended Extremeties Extremities Exam: Moderate Edema Assessment/Plan Problem List: (1) Acute renal failure Plan: Patient is well oliguric acute renal failure and remains essentially anuric. HD done yesterday with 3L UF, plan next HD Sunday. Continue renal dosing medications and antibiotics. 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 Plan: Cardiology following (4) Acute hypoxemic respiratory failure Plan: On ventilator (5) Hypertensive emergency Plan: BP improved (6) Diabetes mellitus Plan: Continue monitor blood glucose (7) CAD (coronary artery disease) Plan: Presented with STEMI, follow with cardiology (8) Subsequent ST elevation (STEMI) myocardial infarction of anterior wall Plan: Planned transfer to [facility] when stable. No intervention performed here. Problem Qualifiers (1) Acute renal failure: Qualified Code: N17.0 - Acute renal failure with tubular necrosis (2) Diabetes mellitus: Qualified Code: E13.8 - Diabetes mellitus of other type with complication, unspecified care home insulin use status Mahin Kim MD May 20, 2016 11:45
--- NOTE | 2016-05-20 13:18 | HHI.CCPN ---
Subjective Remarks/Hospital Course 61-year-old AA male. Date of admission 05/05/2016. Date of consultation 2016. Past medical history includes hypertensive heart disease, hypertension, diabetes mellitus type 2 and spinal stenosis. He presented to [facility] today with history of acute onset of diaphoresis, chest pain and syncope. Her documentation, Chest pain was 7 out of 10 without radiation. Later in the hospital physician, patient did have ST elevation anterior septal leads. I he had a cardiac catheterization in 2009 which revealed moderate coronary disease which documented 50-60% stenosis in the LAD diagonals 1 and 2. Recommended medical management at that time. Dr. Marcano was notified and proceed to the cardiac catheter lab. Patient sees heparin and one aspirin prior to cardiac catheterization. During heart catheterization,, patient became hypertensive, tachypneic, hypoxic and agitated including abdominal pain with nausea and vomiting. Patient was intubated by Dr. Simon and dispensed transferred to room 505a. Currently hemodynamic stable on a propofol drip. 05/06: Patient required additional sedation overnight. Was moving all 4 extremity spontaneously and strongly. Potassium is replaced overnight along with magnesium. This afternoon approximate 4 PM, patient went into a sinus bradycardia in the 40s. RN cannot locate pulse and possibly went into a PEA arrest. Patient received CPR for approximately 2 minutes. ROSC return immediately. Received 1 mg of epinephrine IV. Blood pressure was 240 systolic. Saturations were above 90% the entire time. Dr. Marcano was made aware. No new recommendations at this time. Electrolytes currently pending. Patient is currently hemodynamic stable and an arterial line/left radial has been placed 05/07: no improvement in delirium or mental status. spiking low grade fevers. 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 CT surgery consulted and declined to operate here: he will need referral once stabilized. fio2 requirements still high. CT chest also with evidence of bibasilar consolidation which may be aspiration pneumonitis vs. pneumonia now that we are 48h out from initial presentation and now spiking fevers. 05/08: delirium persists. continues to spike fevers. jolly cultured yesterday without results yet. holding sedation today. 05/09: delirium slightly improved. waking up on SAT, weakly following commands. cultures still NGTD. hypoxia slightly improved. 05/10: delirium improving. weakly following commands still. cultures still NGTD. fevers persist, although fever curve appears to be improving. hypoxia continues to improve. still remains very critically ill. 05/11: Tmax 99.9. Currently 99.1. Tolerating tube feeding. One bowel movement. Continues to have difficulty weaning ventilator. 05/12: Currently afebrile. Tolerating tube feeding. Positive BM. Increased FiO2 from 45-60%. +1 L. Arousable on sedation vacation and weakly follows commands. 05/13: Remains intubated, sedated. FiO2 now reduced to 45% (was 55% today am). Start weaning trials after starting Precedex. To control BP May use Cardene, given anomalous RCA 05/14: Extubated yesterday, remained on BiPAP overnight. Intermittently agitated. Following commands to me today, while on BiPAP. Remains on Cardene infusion for uncontrolled hypertension. Urine output 4.7 L in 24 hours 05/15: On 3 L nasal cannula. Fever trending down, breathing more comfortably. Able to communicate. Discussed with Dr. Marcano. Dr. Pendleton will be available tomorrow, will probably need transfer to [facility] for RCA unroofing 05/16: Acutely hypotensive overnight with tachycardia. MAP was 55 with greater than 130s. Received 3.5 L of normal saline bolus with improvement in blood pressure and heart rate. Lethargic on BiPAP. ABG pending, HB dropped from 10.9 to 7.8. No obvious source of bleeding. STAT 2U PRBC. STAT CT head and CT abd pelvis. R/O ICH or RP bleed. Patient received only 5mg Nicci at 2100 yesterday, no other sedation. Last dose of Lovenox was at 211, held now 05/17: Developed Hemorrhagic shock from large retroperitoneal hemorrhage night to 05/15/16. Stabilized after 3 units of PRBC and protamine. Hemoglobin 8.7 today. Remain encephalopathy and unresponsive yesterday. MRI 05/16/16 shows small punctate white matter infarcts, bilateral basal ganglia infarcts. Urology consult pending. Antiplatelet drugs on hold. Now with anuria from ATN secondary to shock. Nephrology consult pending 05/18: Developed sudden onset bradycardia in 40s, with acute hypotension yesterday evening around 5 PM. ACLS protocol initiated (did not arrest or lose pulse). Received multiple epinephrine, bicarbonate calcium and fluid boluses. Patient was placed on dopamine 20 mics per KG per minute, Levophed 20 mics per KG per minute, epinephrine 2.5 mics per minute and eventually stabilized with systolic blood pressure reading 120s. Hemoglobin on ABG was 7 and emergently transfused 3 units PRBC and 2 units FFP. Lab hemoglobin came back at 6.8. Patient also was profoundly acidemic with pH of 7.16. Patient received total 3 A of bicarbonate and bicarbonate infusion was started, minute ventilation was also increased. 05/19: MAXIMUM TEMPERATURE 100.3. Currently 99.5. No bowel movement. Tube feeds were restarted. FiO2 50%. PEEP at 8. Subjective 05/20: MAXIMUM TEMPERATURE 100.9. Positive BM. Tube feeds were restarted today. PT plateau. FiO2 down to 85%. Semiemergent bronchoscopy yesterday for right upper lobe airway obstruction. Resolved Objective Vital Signs Date Time Temp Pulse Resp B/P Pulse Ox O2 Delivery O2 Flow Rate FiO2 05/20/16 12:00 85 05/20/16 12:00 103 05/20/16 12:00 97.9 20 133/86 93 121/77 05/18/16 07:00 Mechanical Ventilator Intake and Output 05/19/16 05/19/16 05/20/16 08:00 16:00 00:00 Intake Total 1185 ml 2050 ml 1168 ml Output Total 10 ml 20 ml 3020 ml Balance 1175 ml 2030 ml -1852 ml Result Diagram: 05/20/16 0455 05/20/16 0455 Other Results Microbiology Date/Time Procedure Status Source Growth 05/19/16 19:42 Gram Stain - Final Resulted Bronchial Washings Right Upper Lobe 05/19/16 19:42 Bronchial Culture Resulted Bronchial Washings Right Upper Lobe Pending 05/19/16 19:42 Fungal Smear - Final Resulted Bronchial Washings Right Upper Lobe NO FUNGAL ELEMENTS SEEN. 05/19/16 19:42 Fungal Culture Resulted Bronchial Washings Right Upper Lobe Pending 05/19/16 19:42 Acid Fast Stain Received Bronchial Washings Right Upper Lobe Pending 05/19/16 19:42 Mycobacterial Culture Received Bronchial Washings Right Upper Lobe Pending 05/18/16 07:50 Aerobic Blood Culture - Preliminary Resulted Blood Peripheral NO GROWTH IN 2 DAYS 05/18/16 07:50 Anaerobic Blood Culture - Preliminary Resulted Blood Peripheral NO GROWTH IN 2 DAYS 05/16/16 07:40 Urine Culture - Final Complete Urine Catheterized Urine NO GROWTH IN 48 HOURS. Imaging Last Impressions Chest X-Ray 05/20/16 0600 Signed Impressions: Service Date/Time: Friday, May 20, 2016 02:52 - CONCLUSION: Stable chest x-ray with underinflation and bibasilar opacity which could represent effusion , consolidation, and/or atelectasis. Low Narvaez MD Lower Extremity Ultrasound 05/18/16 0000 Signed Impressions: Service Date/Time: May 13:17 - CONCLUSION: Nonocclusive thrombus in the right posterior tibial vein. Remaining veins are otherwise patent. Carlitos Aguirre MD Head CT 05/16/16 0000 Signed Impressions: Service Date/Time: Monday, May 16, 2016 08:30 - CONCLUSION: Suspected bilateral basal ganglia calcifications are unchanged. No evidence of hemorrhage, edema, mass or mass effect. Stephen Quintanilla MD Brain MRI 05/16/16 0000 Signed Impressions: Service Date/Time: Monday, May 16, 2016 15:46 - CONCLUSION: 1. Small punctate areas of white matter infarction without cortical extension or hemorrhage. There is no significant mass effect. 2. Bilateral basal ganglia infarcts measuring 1 cm Bobby Lamas MD Abdomen/Pelvis CT 05/16/16 0000 Signed Impressions: Service Date/Time: Monday, May 16, 2016 08:39 - CONCLUSION: There are large areas of hemorrhage including the left retroperitoneum and psoas muscle, within the mesentery and a smaller area in the right psoas muscle. They don't appear to be related to the abdominal aorta or the internal iliac arteries. There is a small focal collection hemorrhage adjacent to the left external iliac artery as it enters the pelvis, but I don't believe that is related to the large amount of hemorrhage seen elsewhere. The areas of hemorrhage are large and multi-focal. Stephen Quintanilla MD Upper Extremity Ultrasound 05/10/16 0000 Signed Impressions: Service Date/Time: Tuesday, May 10, 2016 09:44 - CONCLUSION: Occlusive thrombus in the right cephalic vein. Otherwise negative Shahid Sin MD CT Angiography 05/06/16 0000 Signed Impressions: Service Date/Time: Saturday, May 07, 2016 00:04 - CONCLUSION: 1. Lobar consolidation bilaterally in the lower lobes. 2. Negative for pulmonary embolism. Michael Colbert MD Objective Remarks GENERAL: 61-year-old AA male, morbidly obese, intubated sedated with versed, critically ill SKIN: Warm and dry. No rash HEAD: Atraumatic. Normocephalic. EYES: Pupils equal and round around 2-3 mm bilaterally and slightly reactive. No scleral icterus. No injection or drainage. ENT: No nasal bleeding or discharge. Orotracheally intubated NECK: Trachea midline. JVD difficult to assess due to body habitus. Left IJ triple-lumen, right IJ Vas-Cath CARDIOVASCULAR: Distant due to body habitus. Regular rate and rhythm. S1, S2. Without murmur RESPIRATORY: Diminished breath sounds bilaterally due to body habitus. Breath sounds equal bilaterally. On ACV GASTROINTESTINAL: Abdomen obese, non-tender, protuberant, distended. no guarding. MUSCULOSKELETAL: Extremities without significant peripheral edema. Right femoral arterial line NEUROLOGICAL: Patient is sedated on Versed infusion. Pupils are sluggishly reactive. No withdrawal to pain today. A/P Assessment and Plan Neuro/Psych: Bilateral basal ganglia infarcts, small punctate white matter infarcts on MRI Acute toxic metabolic encephalopathy Versed at 2 mg an hour/fentanyl at 150 g a minute hour for sedation/analgesia while intubated Goal of RASS -2 Daily sedation vacation Neurology consulted Dr. Felix MRI of the brain done 05/16/16 shows small punctate white matter infarcts, bilateral basal ganglia infarcts Off Seroquel and Haldol due to nonsustained V. tach Head CT 05/08, 05/16: negative acute. EEG 05/12 revealed generalized slowing right greater than left. No epileptiform activity. EEG 05/16: No seizure, severe encephalopathy CV: Hemorrhagic shock due to left retroperitoneal hemorrhage-shock resolved Severe bradycardia and hypotension 05/17/16 most likely secondary to recurrent bleed Aberrant RCA off LCC Nonsustained V. tach single episode Diastolic heart failure Coronary artery disease Nonischemic cardiomyopathy secondary to hypertensive heart disease Hypertensive emergency On 05/17/16: Developed sudden onset bradycardia in 40s, with acute hypotension yesterday evening around 5 PM. ACLS protocol initiated received multiple epinephrine, bicarbonate calcium and fluid boluses. Placed on dopamine 20 mics per KG per minute, Levophed 20 mics per KG per minute, epinephrine 2.5 mics per minute and eventually stabilized with systolic blood pressure reading 120s. Hemoglobin came back at 6.8-3U prbc and 2U FFP given . Patient also was profoundly acidemic with pH of 7.16, received total 3 A of bicarbonate and bicarbonate infusion was started, minute ventilation was also increased. On 05/16/16 patient received 4 L normal saline boluses, 3 units PRBC Currently off of Levophed Discontinue all antihypertensives and beta blockers Status post cardiac catheterization by Dr. Moy. No intervention performed. Known coronary artery artery disease to the first and second diagonals the LAD. Aberrant RCA off left coronary cups. Transfer to fo RCA unroofing once clinically stable Aspirin 81 mg on hold due to RP hemorrhage. (Plavix DC d 05/15/[address] Marcano in anticipation of probable unroofing surgery) Hold Lipitor 20 mg a night. Hold Procardia XL 90 mg,metoprolol 25 mg by mouth every 8 hours, clonidine 0.2 mg by mouth every 8 hours ALL held due to hypotension shock Holding Lasix 20 mg po BID (Holding home medications of hydrochlorothiazide 25 mg daily, spironolactone 50 mg twice a day) Pulm: Acute hypoxemic respiratory failure-extubated 05/13/16, re intubated 05/16/16 for airway protection Likely underlying STU Right upper lobe mucus plugging Extubated 05/13/16. Reintubated 05/16/16 for airway protection due to severe encephalopathy No spontaneous breathing trials today due to severe shock and severe encephalopathy. Reassess in a.m. Chest x-ray shows new infiltrate right upper lobe ACV 20/600/12/85 Ventilator bundle Bronchodilator therapy every 6 hours and as needed. Follow up chest x-ray/ABG in a.m. GI: Acute large left retroperitoneal hemorrhage Hypoalbuminemia Constipation- resolved. Resume Nepro at 50 cc an hour Supportive care with blood transfusion and correction of coagulopathy Continue Protonix for GI prophylaxis Colace/Senokot twice a day for bowel regimen, /Renal: Acute kidney failure due to ATN Anuria Isidoro for accurate I's and O's in a critically ill patient Nephrology consulted, HD started 05/17/16 Currently on bicarbonate drip at 75 cc an hour Endo: Diabetes mellitus type 2 Hyperglycemia Sliding-scale insulin Accu-Cheks to maintain euglycemia. Medium regimen every 6 hours per last blood sugar 201 Heme: Acute blood loss anemia with shock Large left retroperitoneal hemorrhage Right cephalic superficial thrombus/right PT DVT Normocytic anemia Transfused 3 units PRBC stat on 05/16/16 Transfused 3 units PRBC and 2 units FFP Transfuse 1 unit PRBCs today. Check hemoglobin at 2000 Therapeutic Lovenox discontinued, aspirin placed on hold 75 mg IV protamine slow infusion (D/W with Dr. grimes) on 05/16/16. Continues to bleed consult IR for possible embolization Hematology consulted, recommends against anticoagulation and IVC filter CBC daily. Monitor trends. No active bleeding. Was on Lovenox 150 mg subcutaneous twice a day-DCd 05/16/16 ID: Aspiration pneumonia/Enterobacter aerogenes in sputum --2/2 Sputum culture with Enterobacter. ID changed antibiotics to meropenem, micafungin and vancomycin --(Started cefepime and Flagyl on 05/16/16. A single dose of vancomycin given. Cefepime DCd) --Tmax 100.5 Pertinent cultures 05/07 - blood cultures 2 - negative 05/08 - sputum - negative 05/08 - urine - negative 05/08 - blood cultures - negative 05/13 - blood cx negative 05/13 - urine cx negative 05/16 - sputum Enterobacter aerogenes 05/16 - urine neg 131 - blood cultures neg MSK: History of spinal stenosis/laminectomy/left total knee replacement and left ring finger amputation PT evaluate and treat Access - Prophylaxis - GI - Protonix - DVT -DCd Lovenox. SCD on L leg - Check venous doppler if clinically indicated Critical Care: The total critical care time was 35 minutes. Time to perform other separately billable procedures was not included in the critical care time. Brett Abrams MD May 20, 2016 13:17
[2016-05-20] MEDS: SODIUM CHLOR 0.9% 1000 ML INJ 1,000 ML IV SCH ×2 (13:45→20:50)
[2016-05-20 16:56] LABS: MEAN CELL VOLUME 87.5 FL (80.0-100.0); MEAN CORPUSCULAR HEMOGLOBIN 29.5 PG (27.0-34.0); MEAN CORPUSCULAR HGB CONC 33.7 % (32.0-36.0); PLATELET COUNT 168 TH/MM3 (150-450); RED BLOOD COUNT 2.86 MIL/MM3 (4.50-5.90); RED CELL DISTRIBUTION WIDTH 16.3 % (11.6-17.2); REVIEW FLAG FINAL; WHITE BLOOD COUNT 14.2 TH/MM3 (4.0-11.0)
[2016-05-20] MEDS: MIDAZOLAM 100 MG/NS 100 ML DRIP Premix IV SCH (20:51)
[2016-05-21] VITALS (20 sets, daily range): BP systolic 117–159; BP diastolic 74–90; PULSE 90–109; RESP 14–21; TEMP 99.1–100.3; O2SAT 95–100
[2016-05-21] MEDS: RESP: ALBUTEROL 2.5 MG/IPRATROPIUM 0.5 MG NEB (SCH) NEB ×6 (00:04→20:11)
[2016-05-21] MEDS: RESP: SODIUM CHLORIDE 3% 4 ML NEB NEB SCH ×6 (00:04→20:11)
[2016-05-21] MEDS: fentaNYL 2,500 MCG/NS 250 ML IV SCH ×2 (00:53→16:08)
[2016-05-21] MEDS: CHLORHEXIDINE GLUCONATE 2 % 1 PACK (2 CLOTHS) TOP SCH (04:00)
--- NOTE | 2016-05-21 04:03 | RADRPT ---
EXAM DATE/TIME: 05/21/2016 03:03 [facility] COMPARISON: CHEST SINGLE AP, May 20, 2016, 2:52. INDICATIONS : Shortness of breath, possible pulmonary disease. MEDICAL HISTORY : Hypertension. Diabetes mellitus type II. Cardiovascular disease. SURGICAL HISTORY : None. ENCOUNTER: Subsequent ACUITY: 2 weeks PAIN SCORE: Non-responsive. LOCATION: Bilateral chest FINDINGS: Portable AP view of the chest demonstrates cardiac silhouette size at the upper limits for normal. Le ft internal jugular line, right internal jugular line, ETT, and nasogastric tube remain present. Lung s are underinflated with bibasilar pleural-parenchymal opacities, stable from the prior study. No pne umothorax is visualized. CONCLUSION: Stable chest x-ray with likely bilateral pleural effusions with associated volume loss and/or airspac e consolidation. Low Narvaez MD on May 21, 2016 at 4:00 Board Certified Radiologist. This report was verified electronically.
[2016-05-21] MEDS: SENNOSIDES 8.6 MG TAB PO SCH ×2 (04:29→17:18)
[2016-05-21] MEDS: INSULIN NovoLIN REGULAR SUPPLEMENTAL SCALE SQ SCH ×5 (04:30→17:18)
[2016-05-21 05:38] LABS: APTT (PATIENT) 31.7 SEC (24.3-30.1); INTERNATIONAL NORMALIZED RATIO 1.1 RATIO; PROTHROMBIN TIME - PATIENT 12.2 SEC (9.8-11.6)
[2016-05-21] MEDS: CHLORHEXIDINE 0.12% (ORAL KIT) 15 ML CUP MT SCH ×2 (07:34→20:26)
[2016-05-21] MEDS: MICAFUNGIN INJ 150 MG in SODIUM CHLORIDE 0.9% INJ 100 ML IV SCH (07:34)
[2016-05-21] MEDS: ALBUMIN HUMAN 25% 25 GM/100 ML BAGP IV SCH (07:35)
[2016-05-21] MEDS: MEROPENEM INJ 500 MG in SODIUM CHLORIDE 0.9% INJ 100 ML IV SCH ×2 (08:29→20:26)
[2016-05-21] MEDS: DOCUSATE SODIUM 100 MG CAP PO SCH ×2 (08:30→20:27)
[2016-05-21] MEDS: SODIUM CHLORIDE 0.9% FLUSH 5 ML FLUSH IV FLUSH SCH ×2 (08:30→20:26)
[2016-05-21] MEDS: ARTIFICIAL TEARS OPTH SOLN 15 ML BTL EACH EYE SCH ×3 (08:30→17:18)
--- NOTE | 2016-05-21 11:19 | HHI.NPPN ---
Subjective History of Present Illness 61 year old with ARF, CHF, Respiratory failure Additional Remarks Patient intubated, tolerated HD Sunday Objective Data Data 05/20/16 05/21/16 19:00 07:00 Intake Total 880 ml 1750 ml Output Total 45 ml Balance 880 ml 1705 ml Intake Oral 0 ml IV Total 820 ml 1415 ml Tube Feeding 335 ml Tube Irrigant 60 ml Output Urine Total 45 ml # Bowel Movements 1 1 Vital Signs Date Time Temp Pulse Resp B/P Pulse Ox O2 Delivery O2 Flow Rate FiO2 05/21/16 10:00 90 05/21/16 08:03 95 70 05/21/16 08:00 99.7 93 20 132/82 95 139/79 05/21/16 08:00 93 05/21/16 08:00 65 05/21/16 06:00 104 05/21/16 04:05 98 70 05/21/16 04:00 103 05/21/16 04:00 99.1 103 14 133/74 99 05/21/16 04:00 85 05/21/16 02:00 96 05/21/16 00:04 98 85 05/21/16 00:00 85 05/21/16 00:00 99.1 103 20 133/84 98 05/21/16 00:00 103 05/20/16 22:00 103 05/20/16 20:03 96 85 05/20/16 20:00 85 05/20/16 20:00 102 05/20/16 20:00 98.3 102 21 127/87 100 119/72 05/20/16 18:00 106 05/20/16 16:00 97.6 103 20 128/86 96 119/80 05/20/16 16:00 103 05/20/16 16:00 85 05/20/16 15:25 96 85 05/20/16 14:00 102 05/20/16 12:00 85 05/20/16 12:00 103 05/20/16 12:00 97.9 103 20 133/86 93 121/77 05/20/16 11:30 93 85 -: 05/20/16 1545 05/20/16 0455 Physical Exam General Appearance: Well Developed, Obese Neck Neck Exam: Neck Supple Pulmonary Resp Exam: Decreased Bases Cardiology CV Exam: Tachycardia Gastrointestinal/Abdomen GI Exam: Soft, Non-Tender, Distended Extremeties Extremities Exam: Moderate Edema Assessment/Plan Problem List: (1) Acute renal failure Plan: Patient is well oliguric acute renal failure and remains essentially anuric. HD done yesterday with 3L [facility], plan next HD tomorrow. Continue MWF HD for now No new labs today - will check in AM Continue renal dosing medications and antibiotics. 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 Plan: Cardiology following (4) Acute hypoxemic respiratory failure Plan: On ventilator (5) Hypertensive emergency Plan: BP improved (6) Diabetes mellitus Plan: Continue monitor blood glucose (7) CAD (coronary artery disease) Plan: Presented with STEMI, follow with cardiology (8) Subsequent ST elevation (STEMI) myocardial infarction of anterior wall Plan: Planned transfer to [facility] when stable. No intervention performed here. Problem Qualifiers (1) Acute renal failure: Qualified Code: N17.0 - Acute renal failure with tubular necrosis (2) Diabetes mellitus: Qualified Code: E13.8 - Diabetes mellitus of other type with complication, unspecified mcfp insulin use status (3) CAD (coronary artery disease): Qualified Code: I25.10 - Coronary artery disease, angina presence unspecified, unspecified vessel or lesion type, unspecified whether [place] or transplanted heart Mahin Kim MD May 21, 2016 11:19
--- NOTE | 2016-05-21 14:37 | HHI.CCPN ---
Subjective Remarks/Hospital Course 61-year-old AA male. Date of admission 05/05/2016. Date of consultation 2016. Past medical history includes hypertensive heart disease, hypertension, diabetes mellitus type 2 and spinal stenosis. He presented to [facility] today with history of acute onset of diaphoresis, chest pain and syncope. Her documentation, Chest pain was 7 out of 10 without radiation. Later in the hospital physician, patient did have ST elevation anterior septal leads. I he had a cardiac catheterization in 2009 which revealed moderate coronary disease which documented 50-60% stenosis in the LAD diagonals 1 and 2. Recommended medical management at that time. Dr. Marcano was notified and proceed to the cardiac catheter lab. Patient sees heparin and one aspirin prior to cardiac catheterization. During heart catheterization,, patient became hypertensive, tachypneic, hypoxic and agitated including abdominal pain with nausea and vomiting. Patient was intubated by Dr. Simon and dispensed transferred to room 505a. Currently hemodynamic stable on a propofol drip. 05/06: Patient required additional sedation overnight. Was moving all 4 extremity spontaneously and strongly. Potassium is replaced overnight along with magnesium. This afternoon approximate 4 PM, patient went into a sinus bradycardia in the 40s. RN cannot locate pulse and possibly went into a PEA arrest. Patient received CPR for approximately 2 minutes. ROSC return immediately. Received 1 mg of epinephrine IV. Blood pressure was 240 systolic. Saturations were above 90% the entire time. Dr. Marcano was made aware. No new recommendations at this time. Electrolytes currently pending. Patient is currently hemodynamic stable and an arterial line/left radial has been placed 05/07: no improvement in delirium or mental status. spiking low grade fevers. 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 CT surgery consulted and declined to operate here: he will need referral once stabilized. fio2 requirements still high. CT chest also with evidence of bibasilar consolidation which may be aspiration pneumonitis vs. pneumonia now that we are 48h out from initial presentation and now spiking fevers. 05/08: delirium persists. continues to spike fevers. jolly cultured yesterday without results yet. holding sedation today. 05/09: delirium slightly improved. waking up on SAT, weakly following commands. cultures still NGTD. hypoxia slightly improved. 05/10: delirium improving. weakly following commands still. cultures still NGTD. fevers persist, although fever curve appears to be improving. hypoxia continues to improve. still remains very critically ill. 05/11: Tmax 99.9. Currently 99.1. Tolerating tube feeding. One bowel movement. Continues to have difficulty weaning ventilator. 05/12: Currently afebrile. Tolerating tube feeding. Positive BM. Increased FiO2 from 45-60%. +1 L. Arousable on sedation vacation and weakly follows commands. 05/13: Remains intubated, sedated. FiO2 now reduced to 45% (was 55% today am). Start weaning trials after starting Precedex. To control BP May use Cardene, given anomalous RCA 05/14: Extubated yesterday, remained on BiPAP overnight. Intermittently agitated. Following commands to me today, while on BiPAP. Remains on Cardene infusion for uncontrolled hypertension. Urine output 4.7 L in 24 hours 05/15: On 3 L nasal cannula. Fever trending down, breathing more comfortably. Able to communicate. Discussed with Dr. Marcano. Dr. Pendleton will be available tomorrow, will probably need transfer to [facility] for RCA unroofing 05/16: Acutely hypotensive overnight with tachycardia. MAP was 55 with greater than 130s. Received 3.5 L of normal saline bolus with improvement in blood pressure and heart rate. Lethargic on BiPAP. ABG pending, HB dropped from 10.9 to 7.8. No obvious source of bleeding. STAT 2U PRBC. STAT CT head and CT abd pelvis. R/O ICH or RP bleed. Patient received only 5mg Nicci at 2100 yesterday, no other sedation. Last dose of Lovenox was at 211, held now 05/17: Developed Hemorrhagic shock from large retroperitoneal hemorrhage night to 05/15/16. Stabilized after 3 units of PRBC and protamine. Hemoglobin 8.7 today. Remain encephalopathy and unresponsive yesterday. MRI 05/16/16 shows small punctate white matter infarcts, bilateral basal ganglia infarcts. Urology consult pending. Antiplatelet drugs on hold. Now with anuria from ATN secondary to shock. Nephrology consult pending 05/18: Developed sudden onset bradycardia in 40s, with acute hypotension yesterday evening around 5 PM. ACLS protocol initiated (did not arrest or lose pulse). Received multiple epinephrine, bicarbonate calcium and fluid boluses. Patient was placed on dopamine 20 mics per KG per minute, Levophed 20 mics per KG per minute, epinephrine 2.5 mics per minute and eventually stabilized with systolic blood pressure reading 120s. Hemoglobin on ABG was 7 and emergently transfused 3 units PRBC and 2 units FFP. Lab hemoglobin came back at 6.8. Patient also was profoundly acidemic with pH of 7.16. Patient received total 3 A of bicarbonate and bicarbonate infusion was started, minute ventilation was also increased. 05/19: MAXIMUM TEMPERATURE 100.3. Currently 99.5. No bowel movement. Tube feeds were restarted. FiO2 50%. PEEP at 8. 05/20: MAXIMUM TEMPERATURE 100.9. Positive BM. Tube feeds were restarted today. PT plateau. FiO2 down to 85%. Semiemergent bronchoscopy yesterday for right upper lobe airway obstruction. Resolved Subjective 05/21: MAXIMUM TEMPERATURE 100.7. Currently 99.6. Somewhat tachycardic. 2 bowel movements overnight. Tolerating tube feeds at 30 cc an hour. Had episode of emesis overnight. Objective Vital Signs Date Time Temp Pulse Resp B/P Pulse Ox O2 Delivery O2 Flow Rate FiO2 05/21/16 12:00 99.6 105 20 117/75 96 135/78 05/21/16 12:00 60 05/18/16 07:00 Mechanical Ventilator Intake and Output 05/20/16 05/20/16 05/21/16 08:00 16:00 00:00 Intake Total 1188 ml 880 ml 1118 ml Output Total 10 ml 30 ml Balance 1178 ml 880 ml 1088 ml Result Diagram: 05/20/16 1545 05/20/16 0455 Other Results Microbiology Date/Time Procedure Status Source Growth 05/19/16 19:42 Gram Stain - Final Complete Bronchial Washings Right Upper Lobe 05/19/16 19:42 Bronchial Culture - Final Complete Bronchial Washings Right Upper Lobe RARE GROWTH NORMAL RESPIRATORY JOSESITO 05/19/16 19:42 Fungal Smear - Final Resulted Bronchial Washings Right Upper Lobe NO FUNGAL ELEMENTS SEEN. 05/19/16 19:42 Fungal Culture Resulted Bronchial Washings Right Upper Lobe Pending 05/19/16 19:42 Acid Fast Stain Received Bronchial Washings Right Upper Lobe Pending 05/19/16 19:42 Mycobacterial Culture Received Bronchial Washings Right Upper Lobe Pending 05/18/16 07:50 Aerobic Blood Culture - Preliminary Resulted Blood Peripheral NO GROWTH IN 3 DAYS 05/18/16 07:50 Anaerobic Blood Culture - Preliminary Resulted Blood Peripheral NO GROWTH IN 3 DAYS 05/16/16 16:25 Aerobic Blood Culture - Final Complete Blood Peripheral NO GROWTH IN 5 DAYS 05/16/16 16:25 Anaerobic Blood Culture - Final Complete Blood Peripheral NO GROWTH IN 5 DAYS Imaging Last Impressions Chest X-Ray 05/21/16 0000 Signed Impressions: Service Date/Time: Saturday, May 21, 2016 03:03 - CONCLUSION: Stable chest x-ray with likely bilateral pleural effusions with associated volume loss and/ or airspace consolidation. Low Narvaez MD Lower Extremity Ultrasound 05/18/16 0000 Signed Impressions: Service Date/Time: May 13:17 - CONCLUSION: Nonocclusive thrombus in the right posterior tibial vein. Remaining veins are otherwise patent. Carlitos Aguirre MD Head CT 05/16/16 0000 Signed Impressions: Service Date/Time: Monday, May 16, 2016 08:30 - CONCLUSION: Suspected bilateral basal ganglia calcifications are unchanged. No evidence of hemorrhage, edema, mass or mass effect. Stephen Quintanilla MD Brain MRI 05/16/16 0000 Signed Impressions: Service Date/Time: Monday, May 16, 2016 15:46 - CONCLUSION: 1. Small punctate areas of white matter infarction without cortical extension or hemorrhage. There is no significant mass effect. 2. Bilateral basal ganglia infarcts measuring 1 cm Bobby Lamas MD Abdomen/Pelvis CT 05/16/16 0000 Signed Impressions: Service Date/Time: Monday, May 16, 2016 08:39 - CONCLUSION: There are large areas of hemorrhage including the left retroperitoneum and psoas muscle, within the mesentery and a smaller area in the right psoas muscle. They don't appear to be related to the abdominal aorta or the internal iliac arteries. There is a small focal collection hemorrhage adjacent to the left external iliac artery as it enters the pelvis, but I don't believe that is related to the large amount of hemorrhage seen elsewhere. The areas of hemorrhage are large and multi-focal. Stephen Quintanilla MD Upper Extremity Ultrasound 05/10/16 0000 Signed Impressions: Service Date/Time: Tuesday, May 10, 2016 09:44 - CONCLUSION: Occlusive thrombus in the right cephalic vein. Otherwise negative Shahid Sin MD CT Angiography 05/06/16 0000 Signed Impressions: Service Date/Time: Saturday, May 07, 2016 00:04 - CONCLUSION: 1. Lobar consolidation bilaterally in the lower lobes. 2. Negative for pulmonary embolism. Michael Colbert MD Objective Remarks GENERAL: 61-year-old AA male, morbidly obese, intubated sedated with versed and fentanyl drips, critically ill SKIN: Warm and dry. No rash HEAD: Atraumatic. Normocephalic. EYES: Pupils equal and round around 2-3 mm bilaterally and slightly reactive. No scleral icterus. No injection or drainage. ENT: No nasal bleeding or discharge. Orotracheally intubated NECK: Trachea midline. JVD difficult to assess due to body habitus. Left IJ triple-lumen, right IJ Vas-Cath CARDIOVASCULAR: Distant due to body habitus. Regular rate and rhythm. S1, S2. Without murmur RESPIRATORY: Diminished breath sounds bilaterally due to body habitus. Breath sounds equal bilaterally. On ACV GASTROINTESTINAL: Abdomen obese, non-tender, protuberant, distended. no guarding. MUSCULOSKELETAL: Extremities without significant peripheral edema. Right femoral arterial line NEUROLOGICAL: Patient is sedated on Versed infusion. Pupils are sluggishly reactive. Slight bilateral lower extremity withdrawal to pain today. Urinary Catheter: Yes Assessment to: Continue Chaudhry insert reason: Prolonged Immobilization Vascular Central Line Catheter: Yes Assessment to: Continue A/P Assessment and Plan Neuro/Psych: Bilateral basal ganglia infarcts, small punctate white matter infarcts on MRI Acute toxic metabolic encephalopathy Versed at 3 mg an hour/fentanyl at 150 g a minute hour for sedation/analgesia while intubated Goal of RASS -2 Daily sedation vacation Neurology consulted Dr. Felix MRI of the brain done 05/16/16 shows small punctate white matter infarcts, bilateral basal ganglia infarcts Off Seroquel and Haldol due to nonsustained V. tach Head CT 05/08, 05/16: negative acute. EEG 05/12 revealed generalized slowing right greater than left. No epileptiform activity. EEG 05/16: No seizure, severe encephalopathy Once patient is more stable from a respiratory standpoint will wean off sedation to evaluate neurological status CV: Hemorrhagic shock due to left retroperitoneal hemorrhage-shock resolved Severe bradycardia and hypotension 05/17/16 most likely secondary to recurrent bleed Aberrant RCA off LCC Nonsustained V. tach single episode Diastolic heart failure Coronary artery disease Nonischemic cardiomyopathy secondary to hypertensive heart disease Hypertensive emergency On 05/17/16: Developed sudden onset bradycardia in 40s, with acute hypotension yesterday evening around 5 PM. ACLS protocol initiated received multiple epinephrine, bicarbonate calcium and fluid boluses. Placed on dopamine 20 mics per KG per minute, Levophed 20 mics per KG per minute, epinephrine 2.5 mics per minute and eventually stabilized with systolic blood pressure reading 120s. Hemoglobin came back at 6.8-3U prbc and 2U FFP given . Patient also was profoundly acidemic with pH of 7.16, received total 3 A of bicarbonate and bicarbonate infusion was started, minute ventilation was also increased. On 05/16/16 patient received 4 L normal saline boluses, 3 units PRBC Currently off of Levophed Discontinue all antihypertensives and beta blockers Status post cardiac catheterization by Dr. Moy. No intervention performed. Known coronary artery artery disease to the first and second diagonals the LAD. Aberrant RCA off left coronary cups. Transfer to fo RCA unroofing once clinically stable Aspirin 81 mg on hold due to RP hemorrhage. (Plavix DC d 05/15/[address] Marcano in anticipation of probable unroofing surgery) Hold Lipitor 20 mg a night. Hold Procardia XL 90 mg,metoprolol 25 mg by mouth every 8 hours, clonidine 0.2 mg by mouth every 8 hours ALL held due to hypotension shock Holding Lasix 20 mg po BID (Holding home medications of hydrochlorothiazide 25 mg daily, spironolactone 50 mg twice a day) Pulm: Acute hypoxemic respiratory failure-extubated 05/13/16, re intubated 05/16/16 for airway protection Likely underlying STU Right upper lobe mucus plugging Extubated 05/13/16. Reintubated 05/16/16 for airway protection due to severe encephalopathy No spontaneous breathing trials today due to severe shock and severe encephalopathy. Reassess in a.m. Chest x-ray shows new infiltrate right upper lobe ACV 20/600/12/85 Ventilator bundle Bronchodilator therapy every 4 hours and as needed. Follow up chest x-ray in a.m. GI: Acute large left retroperitoneal hemorrhage Hypoalbuminemia Constipation- resolved. Resume Nepro at 50 cc an hour currently at 30 cc an hour Supportive care with blood transfusion and correction of coagulopathy Continue Protonix for GI prophylaxis Colace/Senokot twice a day for bowel regimen, /Renal: Acute kidney failure due to ATN Anuria Chaudhry for accurate I's and O's in a critically ill patient Nephrology consulted, HD started 05/17/16 Plan for hemodialysis tomorrow. Endo: Diabetes mellitus type 2 Hyperglycemia Sliding-scale insulin Accu-Cheks to maintain euglycemia. Medium regimen every 6 hours per last blood sugar 201 Heme: Acute blood loss anemia with shock Large left retroperitoneal hemorrhage Right cephalic superficial thrombus/right PT DVT Normocytic anemia Leukocytosis Transfused 3 units PRBC stat on 05/16/16 Transfused 3 units PRBC and 2 units FFP Transfuse 1 unit PRBCs 05/19. Therapeutic Lovenox discontinued, aspirin placed on hold 75 mg IV protamine slow infusion (D/W with Dr. grimes) on 05/16/16. If patient continues to bleed consult IR for possible embolization Hematology consulted, recommends against anticoagulation and IVC filter CBC daily. Monitor trends. No active bleeding. Was on Lovenox 150 mg subcutaneous twice a day-DCd 05/16/16 ID: Aspiration pneumonia/Enterobacter aerogenes in sputum --05/18 Sputum culture with Enterobacter. ID changed antibiotics to meropenem, micafungin and vancomycin --(Started cefepime and Flagyl on 05/16/16. A single dose of vancomycin given. Cefepime DCd) Pertinent cultures 05/07 - blood cultures 2 - negative 05/08 - sputum - negative 05/08 - urine - negative 05/08 - blood cultures - negative 05/13 - blood cx negative 05/13 - urine cx negative 05/16 - sputum Enterobacter aerogenes 05/16 - urine neg 131 - blood cultures neg MSK: History of spinal stenosis/laminectomy/left total knee replacement and left ring finger amputation PT evaluate and treat Access - Left IJ CVL 05/17. Right IJ venous catheter 05/17. Right femoral art line 05/17 Prophylaxis - GI - Protonix - DVT -DCd Lovenox. SCD on L leg - Check venous doppler if clinically indicated Critical Care: The total critical care time was 35 minutes. Time to perform other separately billable procedures was not included in the critical care time. Brett Abrams MD May 21, 2016 14:37
[2016-05-21 15:18] LABS: HEMATOCRIT 26.6 % (39.0-51.0); MEAN CELL VOLUME 87.5 FL (80.0-100.0); MEAN CORPUSCULAR HEMOGLOBIN 28.7 PG (27.0-34.0); MEAN CORPUSCULAR HGB CONC 32.8 % (32.0-36.0); PLATELET COUNT 184 TH/MM3 (150-450); RED BLOOD COUNT 3.04 MIL/MM3 (4.50-5.90); RED CELL DISTRIBUTION WIDTH 16.4 % (11.6-17.2); REVIEW FLAG FINAL; WHITE BLOOD COUNT 12.3 TH/MM3 (4.0-11.0)
[2016-05-21 15:45] LABS: BICARBONATE 27.1 MEQ/L (21.0-32.0); POTASSIUM 4.8 MEQ/L (3.5-5.1)
[2016-05-21 16:03] LABS: CALCIUM-PROTEIN CORRECTED 8.1 MG/DL (8.5-10.1)
[2016-05-21] MEDS: ONDANSETRON HCL 4 MG/2 ML VIAL IV PRN (20:27)
[2016-05-22] VITALS (18 sets, daily range): BP systolic 121–138; BP diastolic 72–91; PULSE 104–123; RESP 16–20; TEMP 98.5–99.2; O2SAT 97–100
[2016-05-22] MEDS: RESP: ALBUTEROL 2.5 MG/IPRATROPIUM 0.5 MG NEB (SCH) NEB ×7 (00:01→23:52)
[2016-05-22] MEDS: RESP: SODIUM CHLORIDE 3% 4 ML NEB NEB SCH ×7 (00:01→23:54)
[2016-05-22] MEDS: INSULIN NovoLIN REGULAR SUPPLEMENTAL SCALE SQ SCH ×4 (00:42→17:08)
[2016-05-22] MEDS: CHLORHEXIDINE GLUCONATE 2 % 1 PACK (2 CLOTHS) TOP SCH (04:00)
--- NOTE | 2016-05-22 04:24 | RADRPT ---
EXAM DATE/TIME: 05/22/2016 03:45 [facility] COMPARISON: CHEST SINGLE AP, May 21, 2016, 3:03. INDICATIONS : Respiratory failure. MEDICAL HISTORY : Myocardial infarction. Congestive heart failure. Hypertension. Diabetes. SURGICAL HISTORY : Back surgery. Meniscus repair. ENCOUNTER: Subsequent ACUITY: 3 weeks PAIN SCORE: Non-responsive. LOCATION: Bilateral chest FINDINGS: Cardiomegaly and bilateral basilar airspace disease and probable effusions again seen. Endotracheal t ube, left jugular line and enteric tube again present. Right jugular line tip overlies the SVC. CONCLUSION: No significant change has occurred. Ronald Tinsley MD on May 22, 2016 at 4:22 Board Certified Radiologist. This report was verified electronically.
[2016-05-22] MEDS: SENNOSIDES 8.6 MG TAB PO SCH ×2 (04:33→17:08)
[2016-05-22] MEDS: fentaNYL 2,500 MCG/NS 250 ML IV SCH ×2 (05:29→16:06)
[2016-05-22] MEDS: MIDAZOLAM 100 MG/NS 100 ML DRIP Premix IV SCH (05:30)
[2016-05-22 05:59] LABS: AUTOMATED NEUTROPHIL # 11.1 TH/MM3 (1.8-7.7); BASOPHIL % 0.2 % (0.0-2.0); EOSINOPHIL # 0.3 TH/MM3 (0-0.4); EOSINOPHIL % 2.1 % (0.0-4.0); HEMATOCRIT 26.9 % (39.0-51.0); LYMPH % 4.8 % (9.0-44.0); LYMPHOCYTE # 0.6 TH/MM3 (1.0-4.8); MEAN CELL VOLUME 88.2 FL (80.0-100.0); MEAN CORPUSCULAR HEMOGLOBIN 29.1 PG (27.0-34.0); MONO % 8.8 % (0.0-8.0); NEUT % 84.1 % (16.0-70.0); PLATELET COUNT 208 TH/MM3 (150-450); RED BLOOD COUNT 3.05 MIL/MM3 (4.50-5.90); RED CELL DISTRIBUTION WIDTH 16.2 % (11.6-17.2); WHITE BLOOD COUNT 13.2 TH/MM3 (4.0-11.0)
[2016-05-22 06:29] LABS: BICARBONATE 24.7 MEQ/L (21.0-32.0)
[2016-05-22 06:37] LABS: HEMO FLAGS AUTO DIFF
[2016-05-22 08:05] LABS: BANDS 4 % (0-6); EOSINOPHILS 1 % (0-4); MYELOCYTES 3 % (0-0); NEUTROPHIL # MANUAL DIFF 12.1 TH/MM3 (1.8-7.7); PLATELET ESTIMATE SMEAR NORMAL (NORMAL); PLATELET MORPHOLOGY NORMAL (NORMAL); POLYS (SEG NEUTROPHILS) 85 % (16-70); SCAN/DIFF FINAL DIFF MANUAL; WBC DIFF SAMPLE 100
--- NOTE | 2016-05-22 08:21 | HHI.IDPN ---
Subjective Subjective Remarks Mr. Short is a 61-year-old male who was admitted on May 05, 2016. Patient's past medical history significant for hypertensive heart disease, hypertension, type 2 diabetes and spinal stenosis. Patient presented to [facility] on the day of admission with history of acute onset of diaphoresis chest pain and syncope. Patient now has retroperitoneal hematoma, IC bleed. ID following for possible sepsis. Overnight events reviewed. Low grade fevers. Tmax 100.3 F. Undergoes HD. UO still low. Not on pressors. No rash No diarrhea Antibiotics Meropenem IV Micafungin IV Vanco last dose 1750 cc on 05/18/2016. Lines Line sites with no e/o infection Past Medical History reviewed Allergies: Coded Allergies: Penicillin (Verified Allergy, Mild, "I GO CRAZY", 09/01/15) Objective . Vital Signs Date Time Temp Pulse Resp B/P Pulse Ox O2 Delivery O2 Flow Rate FiO2 05/22/16 08:00 55 05/22/16 08:00 99.2 110 20 138/91 100 133/79 05/22/16 07:48 100 55 05/22/16 06:00 110 05/22/16 04:10 100 55 05/22/16 04:00 55 05/22/16 04:00 99.0 110 20 134/86 100 05/22/16 04:00 110 05/22/16 02:00 104 05/22/16 00:00 99.2 107 20 138/81 100 05/22/16 00:00 55 05/22/16 00:00 107 05/21/16 23:58 100 55 05/21/16 22:00 109 05/21/16 20:09 100 55 05/21/16 20:00 108 05/21/16 20:00 55 05/21/16 20:00 99.4 108 19 159/90 100 05/21/16 18:00 103 05/21/16 17:59 97 55 05/21/16 16:00 55 05/21/16 16:00 100.3 108 21 143/88 97 143/82 05/21/16 16:00 108 05/21/16 14:49 98 55 05/21/16 14:00 109 05/21/16 12:00 99.6 105 20 117/75 96 135/78 05/21/16 12:00 60 05/21/16 12:00 105 05/21/16 11:16 100 60 05/21/16 10:00 90 05/21/16 05/21/16 05/22/16 15:00 23:00 07:00 Intake Total 1320 ml 779 ml 911 ml Output Total 20 ml 10 ml 20 ml Balance 1300 ml 769 ml 891 ml Intake Oral 0 ml 0 ml IV Total 1042 ml 779 ml 825 ml Tube Feeding 218 ml 0 ml 86 ml Tube Irrigant 60 ml Output Urine Total 20 ml 10 ml 20 ml # Bowel Movements 1 0 0 . Laboratory Tests Test 05/20/16 05/21/16 05/22/16 15:45 14:50 05:30 White Blood Count 14.2 TH/MM3 12.3 TH/MM3 13.2 TH/MM3 Red Blood Count 2.86 MIL/MM3 3.04 MIL/MM3 3.05 MIL/MM3 Hemoglobin 8.4 GM/DL 8.7 GM/DL 8.9 GM/DL Hematocrit 25.0 % 26.6 % 26.9 % Mean Corpuscular Volume 87.5 FL 87.5 FL 88.2 FL Mean Corpuscular Hemoglobin 29.5 PG 28.7 PG 29.1 PG Mean Corpuscular Hemoglobin 33.7 % 32.8 % 33.0 % Concent Red Cell Distribution Width 16.3 % 16.4 % 16.2 % Platelet Count 168 TH/MM3 184 TH/MM3 208 TH/MM3 Mean Platelet Volume 8.7 FL 8.9 FL 8.8 FL Neutrophils (%) (Auto) 84.1 % Lymphocytes (%) (Auto) 4.8 % Monocytes (%) (Auto) 8.8 % Eosinophils (%) (Auto) 2.1 % Basophils (%) (Auto) 0.2 % Neutrophils # (Auto) 11.1 TH/MM3 Lymphocytes # (Auto) 0.6 TH/MM3 Monocytes # (Auto) 1.2 TH/MM3 Eosinophils # (Auto) 0.3 TH/MM3 Basophils # (Auto) 0.0 TH/MM3 CBC Comment AUTO DIFF Differential Total Cells 100 Counted Neutrophils % (Manual) 85 % Band Neutrophils % 4 % Lymphocytes % 4 % Monocytes % 3 % Eosinophils % 1 % Neutrophils # (Manual) 12.1 TH/MM3 Myelocytes 3 % Differential Comment FINAL DIFF MANUAL Platelet Estimate NORMAL Platelet Morphology Comment NORMAL Basophilic Stippling FAINT Red Cell Morphology Comment NORMAL Laboratory Tests Test 05/21/16 05/22/16 14:50 05:30 Sodium Level 141 MEQ/L 142 MEQ/L Potassium Level 4.8 MEQ/L 5.0 MEQ/L Chloride Level 102 MEQ/L 102 MEQ/L Carbon Dioxide Level 27.1 MEQ/L 24.7 MEQ/L Anion Gap 12 MEQ/L 15 MEQ/L Blood Urea Nitrogen 104 MG/DL 119 MG/DL Creatinine 7.87 MG/DL 8.43 MG/DL Estimat Glomerular Filtration 9 ML/MIN 8 ML/MIN Rate Random Glucose 165 MG/DL 152 MG/DL Calcium Level 7.4 MG/DL 7.3 MG/DL Protein Corrected Calcium 8.1 MG/DL Total Protein 5.9 GM/DL Lactic Acid Level 1.0 mmol/L Phosphorus Level 9.7 MG/DL Albumin 2.6 GM/DL Microbiology Date/Time Procedure Status Source Growth 05/19/16 19:42 Gram Stain - Final Complete Bronchial Washings Right Upper Lobe 05/19/16 19:42 Bronchial Culture - Final Complete Bronchial Washings Right Upper Lobe RARE GROWTH NORMAL RESPIRATORY JOSESITO 05/19/16 19:42 Acid Fast Stain - Final Resulted Bronchial Washings Right Upper Lobe NO ACID FAST BACILLI SEEN 05/19/16 19:42 Mycobacterial Culture Resulted Bronchial Washings Right Upper Lobe Pending 05/19/16 19:42 Fungal Smear - Final Resulted Bronchial Washings Right Upper Lobe NO FUNGAL ELEMENTS SEEN. 05/19/16 19:42 Fungal Culture Resulted Bronchial Washings Right Upper Lobe Pending Imaging Last Impressions Chest X-Ray 05/17/16 0600 Signed Impressions: Service Date/Time: Tuesday, May 17, 2016 04:05 - CONCLUSION: No significant change. Minimal basilar atelectasis. Low Johnson MD Head CT 05/16/16 0000 Signed Impressions: Service Date/Time: Monday, May 16, 2016 08:30 - CONCLUSION: Suspected bilateral basal ganglia calcifications are unchanged. No evidence of hemorrhage, edema, mass or mass effect. Stephen Quintanilla MD Brain MRI 05/16/16 0000 Signed Impressions: Service Date/Time: Monday, May 16, 2016 15:46 - CONCLUSION: 1. Small punctate areas of white matter infarction without cortical extension or hemorrhage. There is no significant mass effect. 2. Bilateral basal ganglia infarcts measuring 1 cm Bobby Lamas MD Abdomen/Pelvis CT 05/16/16 0000 Signed Impressions: Service Date/Time: Monday, May 16, 2016 08:39 - CONCLUSION: There are large areas of hemorrhage including the left retroperitoneum and psoas muscle, within the mesentery and a smaller area in the right psoas muscle. They don't appear to be related to the abdominal aorta or the internal iliac arteries. There is a small focal collection hemorrhage adjacent to the left external iliac artery as it enters the pelvis, but I don't believe that is related to the large amount of hemorrhage seen elsewhere. The areas of hemorrhage are large and multi-focal. Stephen Quintanilla MD Upper Extremity Ultrasound 05/10/16 0000 Signed Impressions: Service Date/Time: Tuesday, May 10, 2016 09:44 - CONCLUSION: Occlusive thrombus in the right cephalic vein. Otherwise negative Shahid Sin MD Lower Extremity Ultrasound 05/10/16 0000 Signed Impressions: Service Date/Time: Tuesday, May 10, 2016 09:20 - CONCLUSION: Occlusive thrombus right posterior tibial vein. Otherwise negative with negative left lower extremity Shahid Sin MD CT Angiography 05/06/16 0000 Signed Impressions: Service Date/Time: Saturday, May 07, 2016 00:04 - CONCLUSION: 1. Lobar consolidation bilaterally in the lower lobes. 2. Negative for pulmonary embolism. Michael Colbert MD Physical Exam GENERAL: Obese AAM patient, in no apparent distress. SKIN: No rashes, ecchymoses or lesions. Cool and dry. HEAD: Atraumatic. Normocephalic. No temporal or scalp tenderness. EYES: Pupils equal round and reactive. Extraocular motions intact. No scleral icterus. No injection or drainage. ENT: Large neck, Intubated NECK: Trachea midline. Supple, nontender, no meningeal signs. CARDIOVASCULAR: HS audible. RESPIRATORY: Breath sounds equal bilaterally decreased in the bases. GASTROINTESTINAL: Abdomen soft, non-tender, nondistended. Obese MUSCULOSKELETAL: Extremities without clubbing, cyanosis, or edema. NEUROLOGICAL: Sedated Psych: could not be assessed IV line sites with no e/o infection. Assessment & Plan Remarks SIRS possible Sepsis (fever, tachycardia, hypotension). Given CT findings and clinical picture Retroperitoneal hematoma with reactive changes and hemorrhagic shock related hypotension are more likely. Aspiration Pneumonia: Enterobacter cloacae Pneumonia. Possible Central line associated Blood Stream Infection. Acute metabolic encephalopathy Acute resp failure on BiPAP, component of STU Acute kidney injury: prerenal from hemodynamic changes, chronic HTN related. DM2 uncontrolled: stress as additional factor. CAD non ischemic cardiomyopathy Anemia: acute due to Retroperitoneal bleed. Receiving blood transfusions. Recs: DC Meropenem IV DC Micafungin IV Start Cefepime IV (covers Enterobacter aerogenes) Start Flagyl oral/NGT (vomiting/aspiration in last 2 days.) Follow cultures Follow clinically d/w RN Tracy Mariee MD May 22, 2016 08:21 Tracy Mariee MD May 22, 2016 08:21
[2016-05-22] MEDS: DOCUSATE SODIUM 100 MG CAP PO SCH ×2 (08:35→19:59)
[2016-05-22] MEDS: ARTIFICIAL TEARS OPTH SOLN 15 ML BTL EACH EYE SCH ×3 (08:36→17:59)
[2016-05-22] MEDS: SODIUM CHLORIDE 0.9% FLUSH 5 ML FLUSH IV FLUSH SCH ×2 (08:37→20:00)
[2016-05-22] MEDS: CHLORHEXIDINE 0.12% (ORAL KIT) 15 ML CUP MT SCH ×2 (08:37→20:00)
[2016-05-22] MEDS: metroNIDAZOLE 500 MG TAB PO SCH ×3 (08:45→20:02)
--- NOTE | 2016-05-22 08:51 | PD.CARD.PN ---
Subjective Subjective Remarks No events over night noted, off pressors Objective Medications Current Medications Medications (Trade) Dose Ordered Sig/Isabelle Route Start Time Stop Time Status Last Admin (NS Flush) 2 ml UNSCH PRN IV FLUSH 05/05/16 17:15 (NS Flush) 2 ml BID IV FLUSH 05/05/16 21:00 05/22/16 08:37 (Tears Naturale Opth Soln) 1 drop TID EACH EYE 05/05/16 18:00 05/22/16 08:36 (Zofran Inj) 4 mg Q6H PRN IV 05/05/16 17:15 05/21/16 20:27 (Colace) 100 mg BID PO 05/05/16 21:00 05/22/16 08:35 Miscellaneous Information 1 Q361D XX 05/05/16 17:15 05/05/16 17:15 (Chlorhexidine 2% Cloth) Taper DAILY@04 TOP 05/06/16 04:00 05/02/17 03:59 05/22/16 04:00 (Chlorhexidine 2% Cloth) 3 pack UNSCH PRN TOP 05/05/16 17:15 (Glucagon Inj) 1 mg UNSCH PRN OTHER 05/05/16 17:15 (Aspirin Chew) 81 mg DAILY CHEW 05/06/16 09:00 Hold 05/15/16 08:30 (Lipitor) 20 mg DAILY PO 05/06/16 09:00 Hold 05/15/16 08:32 (Senokot) 17.2 mg Q12H PO 05/06/16 18:00 05/21/16 17:18 (D50w (Vial) Inj) 25 ml UNSCH PRN IV PUSH 05/08/16 21:00 (NovoLIN R SUPPLEMENTAL SCALE) 1 Q6HR SQ 05/09/16 00:00 05/22/16 05:29 (Pill Splitter) 1 ea UNSCH PRN OTHER 05/11/16 15:15 (Lopressor) 25 mg Q8HR PO 05/13/16 22:00 Hold 05/15/16 14:44 (Procardia Xl) 90 mg DAILY PO 05/14/16 09:00 Hold 05/15/16 08:30 (Lasix) 20 mg BID@09,18 PO 05/15/16 18:00 Hold 05/15/16 17:22 Chlorhexidine Gluconate 15 ml 15 ml BID@08,20 MT 05/16/16 20:00 05/22/16 08:37 (NS 1000 ml Inj) 1,000 ml @ 0 mls/hr Q0M PRN IV 05/17/16 12:13 05/17/16 12:27 Heparin Sodium (Porcine) 8000 units 8,000 units UNSCH PRN IVF 05/17/16 12:15 Sodium Chloride 1,000 ml @ 200 mls/hr Q5H PRN IV 05/17/16 12:13 05/17/16 12:28 (NS 1000 ml Inj) 1,000 ml @ 0 mls/hr Q0M PRN IV 05/17/16 12:13 (Mannitol Inj) 12.5 gm UNSCH PRN IV 05/17/16 12:15 (Albumin 25% Inj) 25 gm UNSCH PRN IV 05/17/16 12:15 (NS Flush) 5 ml UNSCH PRN IVF 05/17/16 12:15 05/17/16 12:29 (Heparin Inj) UNSCH PRN .XX 05/17/16 12:15 05/19/16 16:08 (Gentamicin (Dialysis) Inj) 20 mg UNSCH PRN IV 05/17/16 12:15 05/19/16 16:08 (Zofran Inj) 4 mg UNSCH PRN IV 05/17/16 12:15 (Benadryl) 25 mg UNSCH PRN PO 05/17/16 12:15 (Gelfoam 12 Mm/7 Mm Top) 1 foam UNSCH PRN TOP 05/17/16 12:15 (Epogen Inj) 10,000 units UNSCH PRN IV 05/17/16 12:15 Terbutaline Sulfate 1 mg 1 mg UNSCH PRN SQ 05/17/16 13:45 Midazolam HCl 100 ml @ 0 mls/hr TITRATE IV 05/17/16 21:45 05/22/16 05:30 Norepinephrine Bitartrate 4 mg/ Sodium Chloride 250 ml @ 0 mls/hr TITRATE IV 05/18/16 07:00 05/19/16 17:18 Fentanyl Citrate 250 ml @ 0 mls/hr TITRATE IV 05/18/16 20:00 05/22/16 05:29 (Maxipime Inj/NS Inj) 100 ml @ 200 mls/hr Q8H IV 05/22/16 09:00 05/22/16 08:45 (Flagyl) 500 mg Q8HR PO 05/22/16 09:00 05/22/16 08:45 Vital Signs / I&O Vital Signs Date Time Temp Pulse Resp B/P Pulse Ox O2 Delivery O2 Flow Rate FiO2 05/22/16 08:00 55 05/22/16 08:00 99.2 110 20 138/91 100 133/79 05/22/16 07:48 100 55 05/22/16 06:00 110 05/22/16 04:10 100 55 05/22/16 04:00 55 05/22/16 04:00 99.0 110 20 134/86 100 05/22/16 04:00 110 05/22/16 02:00 104 05/22/16 00:00 99.2 107 20 138/81 100 05/22/16 00:00 55 05/22/16 00:00 107 05/21/16 23:58 100 55 05/21/16 22:00 109 05/21/16 20:09 100 55 05/21/16 20:00 108 05/21/16 20:00 55 05/21/16 20:00 99.4 108 19 159/90 100 05/21/16 18:00 103 05/21/16 17:59 97 55 05/21/16 16:00 55 05/21/16 16:00 100.3 108 21 143/88 97 143/82 05/21/16 16:00 108 05/21/16 14:49 98 55 05/21/16 14:00 109 05/21/16 12:00 99.6 105 20 117/75 96 135/78 05/21/16 12:00 60 05/21/16 12:00 105 05/21/16 11:16 100 60 05/21/16 10:00 90 I/O 05/21/16 05/21/16 05/21/16 05/22/16 05/22/16 05/22/16 07:00 15:00 23:00 07:00 15:00 23:00 Intake Total 632 ml 1320 ml 779 ml 911 ml Output Total 15 ml 20 ml 10 ml 20 ml 60.0 ml Balance 617 ml 1300 ml 769 ml 891 ml -60.0 ml Intake Oral 0 ml 0 ml 0 ml IV Total 554 ml 1042 ml 779 ml 825 ml Tube Feeding 78 ml 218 ml 0 ml 86 ml Tube Irrigant 60 ml Output Urine Total 15 ml 20 ml 10 ml 20 ml Tube Feeding Residual Discard 60.0 ml # Bowel Movements 1 1 0 0 Physical Exam GENERAL: Sedated on the vent SKIN: Warm and dry. HEAD: Atraumatic. Normocephalic. EYES: Pupils equal and round. No scleral icterus. No injection or drainage. ENT: No nasal bleeding or discharge. Mucous membranes pink and moist. NECK: Trachea midline. No JVD. CARDIOVASCULAR: Regular rhythm. Tachycardic RESPIRATORY: No accessory muscle use. Decreased breath sounds bilaterally GASTROINTESTINAL: Abdomen soft, non-tender, nondistended. Hepatic and splenic margins not palpable. MUSCULOSKELETAL: Extremities without clubbing, cyanosis, or edema. No obvious deformities. NEUROLOGICAL: Sedated on the vent Laboratory Laboratory Tests Test 05/21/16 05/22/16 14:50 05:30 White Blood Count 12.3 TH/MM3 13.2 TH/MM3 Red Blood Count 3.04 MIL/MM3 3.05 MIL/MM3 Hemoglobin 8.7 GM/DL 8.9 GM/DL Hematocrit 26.6 % 26.9 % Mean Corpuscular Volume 87.5 FL 88.2 FL Mean Corpuscular Hemoglobin 28.7 PG 29.1 PG Mean Corpuscular Hemoglobin 32.8 % 33.0 % Concent Red Cell Distribution Width 16.4 % 16.2 % Platelet Count 184 TH/MM3 208 TH/MM3 Mean Platelet Volume 8.9 FL 8.8 FL Sodium Level 141 MEQ/L 142 MEQ/L Potassium Level 4.8 MEQ/L 5.0 MEQ/L Chloride Level 102 MEQ/L 102 MEQ/L Carbon Dioxide Level 27.1 MEQ/L 24.7 MEQ/L Anion Gap 12 MEQ/L 15 MEQ/L Blood Urea Nitrogen 104 MG/DL 119 MG/DL Creatinine 7.87 MG/DL 8.43 MG/DL Estimat Glomerular Filtration 9 ML/MIN 8 ML/MIN Rate Random Glucose 165 MG/DL 152 MG/DL Calcium Level 7.4 MG/DL 7.3 MG/DL Protein Corrected Calcium 8.1 MG/DL Total Protein 5.9 GM/DL Neutrophils (%) (Auto) 84.1 % Lymphocytes (%) (Auto) 4.8 % Monocytes (%) (Auto) 8.8 % Eosinophils (%) (Auto) 2.1 % Basophils (%) (Auto) 0.2 % Neutrophils # (Auto) 11.1 TH/MM3 Lymphocytes # (Auto) 0.6 TH/MM3 Monocytes # (Auto) 1.2 TH/MM3 Eosinophils # (Auto) 0.3 TH/MM3 Basophils # (Auto) 0.0 TH/MM3 CBC Comment AUTO DIFF Differential Total Cells 100 Counted Neutrophils % (Manual) 85 % Band Neutrophils % 4 % Lymphocytes % 4 % Monocytes % 3 % Eosinophils % 1 % Neutrophils # (Manual) 12.1 TH/MM3 Myelocytes 3 % Differential Comment FINAL DIFF MANUAL Platelet Estimate NORMAL Platelet Morphology Comment NORMAL Basophilic Stippling FAINT Red Cell Morphology Comment NORMAL Lactic Acid Level 1.0 mmol/L Phosphorus Level 9.7 MG/DL Albumin 2.6 GM/DL Assessment and Plan Problem List: (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 (2) Hypertensive emergency (3) Acute hypoxemic respiratory failure (4) Diabetes mellitus (5) CAD (coronary artery disease) (6) NSVT (nonsustained ventricular tachycardia) (7) Retroperitoneal bleed Assessment and Plan 1) Cardiac cath showing mild to moderate CAD 2) Anomalous RCA off Left Coronary Cusp, will need CTA of coronaries to define pathway of RCA between PA and Aorta especially with chest pain/pre-syncopal episodes... but CT done shows that RCA most likely takes an intra-arterial route , discussed with radiology 3) Occlusive thrombus noted in right PT and right cephalic veins 4) Will discuss with CT Surgery about possible transfer for unroofing of RCA once stable and neurologic status confirmed 5) Retroperitoneal bleeds most likely from ASA/Plavix/Lovenox, not felt to be due to cardiac cath as it's left-sided, Lovenox held... watch H/H... Hgb currently stable 6) ATN from hypotension, started on HD 7) Pressors off, blood pressure stable, continue to wean vent FIO2 as possible Problem Qualifiers (1) Diabetes mellitus: Qualified Code: E13.8 - Diabetes mellitus of other type with complication, unspecified care home insulin use status (2) CAD (coronary artery disease): Qualified Code: I25.10 - Coronary artery disease, angina presence unspecified, unspecified vessel or lesion type, unspecified whether [place] or transplanted heart Maurizio Marcano DO May 22, 2016 08:51
[2016-05-22] MEDS ORDERED: CEFEPIME INJ 2,000 MG in SODIUM CHLORIDE 0.9% INJ 100 ML IV SCH (09:00)
--- NOTE | 2016-05-22 09:13 | PD.ONC.PN ---
Subjective Subjective Remarks Tmax 99.2 overnight. Pt lying supine in bed mechanically ventilated. He remains sedated on fentanyl and versed. Per RN when sedation is weaned he becomes hypertensive and bucks the vent. He does not follow commands. He was recently started on TF but this is on hold at this time as he has not been tolerating. No bleeding noted. Objective Data Date Time Temp Pulse Resp B/P Pulse Ox O2 Delivery O2 Flow Rate FiO2 05/22/16 08:00 55 05/22/16 08:00 99.2 110 20 138/91 100 133/79 05/22/16 07:48 100 55 05/22/16 06:00 110 05/22/16 04:10 100 55 05/22/16 04:00 55 05/22/16 04:00 99.0 110 20 134/86 100 05/22/16 04:00 110 05/22/16 02:00 104 05/22/16 00:00 99.2 107 20 138/81 100 05/22/16 00:00 55 05/22/16 00:00 107 05/21/16 23:58 100 55 05/21/16 22:00 109 05/21/16 20:09 100 55 05/21/16 20:00 108 05/21/16 20:00 55 05/21/16 20:00 99.4 108 19 159/90 100 05/21/16 18:00 103 05/21/16 17:59 97 55 05/21/16 16:00 55 05/21/16 16:00 100.3 108 21 143/88 97 143/82 05/21/16 16:00 108 05/21/16 14:49 98 55 05/21/16 14:00 109 05/21/16 12:00 99.6 105 20 117/75 96 135/78 05/21/16 12:00 60 05/21/16 12:00 105 05/21/16 11:16 100 60 05/21/16 10:00 90 05/22/16 05/22/16 05/22/16 07:00 15:00 23:00 Intake Total 911 ml Output Total 20 ml 60.0 ml Balance 891 ml -60.0 ml Result Diagram: 05/22/1630 05/22/1630 Laboratory Results Laboratory Tests Test 05/21/16 05/22/16 14:50 05:30 White Blood Count 12.3 TH/MM3 13.2 TH/MM3 Red Blood Count 3.04 MIL/MM3 3.05 MIL/MM3 Hemoglobin 8.7 GM/DL 8.9 GM/DL Hematocrit 26.6 % 26.9 % Mean Corpuscular Volume 87.5 FL 88.2 FL Mean Corpuscular Hemoglobin 28.7 PG 29.1 PG Mean Corpuscular Hemoglobin 32.8 % 33.0 % Concent Red Cell Distribution Width 16.4 % 16.2 % Platelet Count 184 TH/MM3 208 TH/MM3 Mean Platelet Volume 8.9 FL 8.8 FL Sodium Level 141 MEQ/L 142 MEQ/L Potassium Level 4.8 MEQ/L 5.0 MEQ/L Chloride Level 102 MEQ/L 102 MEQ/L Carbon Dioxide Level 27.1 MEQ/L 24.7 MEQ/L Anion Gap 12 MEQ/L 15 MEQ/L Blood Urea Nitrogen 104 MG/DL 119 MG/DL Creatinine 7.87 MG/DL 8.43 MG/DL Estimat Glomerular Filtration 9 ML/MIN 8 ML/MIN Rate Random Glucose 165 MG/DL 152 MG/DL Calcium Level 7.4 MG/DL 7.3 MG/DL Protein Corrected Calcium 8.1 MG/DL Total Protein 5.9 GM/DL Neutrophils (%) (Auto) 84.1 % Lymphocytes (%) (Auto) 4.8 % Monocytes (%) (Auto) 8.8 % Eosinophils (%) (Auto) 2.1 % Basophils (%) (Auto) 0.2 % Neutrophils # (Auto) 11.1 TH/MM3 Lymphocytes # (Auto) 0.6 TH/MM3 Monocytes # (Auto) 1.2 TH/MM3 Eosinophils # (Auto) 0.3 TH/MM3 Basophils # (Auto) 0.0 TH/MM3 CBC Comment AUTO DIFF Differential Total Cells 100 Counted Neutrophils % (Manual) 85 % Band Neutrophils % 4 % Lymphocytes % 4 % Monocytes % 3 % Eosinophils % 1 % Neutrophils # (Manual) 12.1 TH/MM3 Myelocytes 3 % Differential Comment FINAL DIFF MANUAL Platelet Estimate NORMAL Platelet Morphology Comment NORMAL Basophilic Stippling FAINT Red Cell Morphology Comment NORMAL Lactic Acid Level 1.0 mmol/L Phosphorus Level 9.7 MG/DL Albumin 2.6 GM/DL Culture Results Microbiology Date/Time Procedure Status Source Growth 05/19/16 19:42 Gram Stain - Final Complete Bronchial Washings Right Upper Lobe 05/19/16 19:42 Bronchial Culture - Final Complete Bronchial Washings Right Upper Lobe RARE GROWTH NORMAL RESPIRATORY JOSESITO 05/19/16 19:42 Acid Fast Stain - Final Resulted Bronchial Washings Right Upper Lobe NO ACID FAST BACILLI SEEN 05/19/16 19:42 Mycobacterial Culture Resulted Bronchial Washings Right Upper Lobe Pending 05/19/16 19:42 Fungal Smear - Final Resulted Bronchial Washings Right Upper Lobe NO FUNGAL ELEMENTS SEEN. 05/19/16 19:42 Fungal Culture Resulted Bronchial Washings Right Upper Lobe Pending Imaging Studies Last 24 hours Impressions Chest X-Ray 05/22/16 0600 Signed Impressions: Service Date/Time: Sunday, May 22, 2016 03:45 - CONCLUSION: No significant change has occurred. Ronald Tinsley MD Administered Medications Medications (Trade) Dose Ordered Sig/Isabelle Route PRN Reason Start Time Stop Time Status Last Admin Dose Admin IV Flush (NS Flush) 2 ml BID IV FLUSH 05/05/16 21:00 05/22/16 08:37 Artificial Tears (Tears Naturale Opth Soln) 1 drop TID EACH EYE 05/05/16 18:00 05/22/16 08:36 Ondansetron HCl (Zofran Inj) 4 mg Q6H PRN IV NAUSEA OR VOMITING 05/05/16 17:15 05/21/16 20:27 Docusate Sodium (Colace) 100 mg BID PO 05/05/16 21:00 05/22/16 08:35 Miscellaneous Information 1 Q361D XX 05/05/16 17:15 05/05/16 17:15 Chlorhexidine Gluconate (Chlorhexidine 2% Cloth) Taper DAILY@04 TOP 05/06/16 04:00 05/02/17 03:59 05/22/16 04:00 Aspirin (Aspirin Chew) 81 mg DAILY CHEW 05/06/16 09:00 Hold 05/15/16 08:30 Atorvastatin Calcium (Lipitor) 20 mg DAILY PO 05/06/16 09:00 Hold 05/15/16 08:32 Sennosides (Senokot) 17.2 mg Q12H PO 05/06/16 18:00 05/21/16 17:18 Insulin Human Regular (NovoLIN R SUPPLEMENTAL SCALE) 1 Q6HR SQ 05/09/16 00:00 05/22/16 05:29 Metoprolol Tartrate (Lopressor) 25 mg Q8HR PO 05/13/16 22:00 Hold 05/15/16 14:44 Nifedipine (Procardia Xl) 90 mg DAILY PO 05/14/16 09:00 Hold 05/15/16 08:30 Furosemide (Lasix) 20 mg BID@09,18 PO 05/15/16 18:00 Hold 05/15/16 17:22 Chlorhexidine Gluconate 15 ml 15 ml BID@08,20 MT 05/16/16 20:00 05/22/16 08:37 Sodium Chloride 1,000 ml @ 0 mls/hr Q0M PRN IV For Prime & Rinse Back 05/17/16 12:13 05/17/16 12:27 Sodium Chloride (NS 1000 ml Inj) 1,000 ml @ 200 mls/hr Q5H PRN IV WITH DIALYSIS 05/17/16 12:13 05/17/16 12:28 IV Flush (NS Flush) 5 ml UNSCH PRN IVF WITH DIALYSIS 05/17/16 12:15 05/17/16 12:29 Heparin Sodium (Porcine) (Heparin Inj) UNSCH PRN .XX WITH DIALYSIS 05/17/16 12:15 05/19/16 16:08 Gentamicin Sulfate 20 mg 20 mg UNSCH PRN IV WITH DIALYSIS 05/17/16 12:15 05/19/16 16:08 Midazolam HCl 100 ml @ 0 mls/hr TITRATE IV 05/17/16 21:45 05/22/16 05:30 Norepinephrine Bitartrate 4 mg/ Sodium Chloride 250 ml @ 0 mls/hr TITRATE IV 05/18/16 07:00 05/19/16 17:18 Fentanyl Citrate 250 ml @ 0 mls/hr TITRATE IV 05/18/16 20:00 05/22/16 05:29 Cefepime HCl/ Sodium Chloride (Maxipime Inj/NS Inj) 100 ml @ 200 mls/hr Q8H IV 05/22/16 09:00 05/22/16 08:45 Metronidazole (Flagyl) 500 mg Q8HR PO 05/22/16 09:00 05/22/16 08:45 Objective Remarks GENERAL: Older obese male. Critically ill in the ICU on mechanical ventilation. SKIN: Warm and dry. No oozing from lines. HEAD: Normocephalic. NECK: Supple, trachea midline. CARDIOVASCULAR: +S1/S2. Slightly tachycardic at 109. RESPIRATORY: Mechanically ventilated. Lungs clear anteriorly. On 55% FiO2. GASTROINTESTINAL: Abdomen protuberant. NG tube in place. EXTREMITIES: Generalized edema. NEUROLOGICAL: Pt sedated on versed and fentanyl. Per RN he does not follow commands when sedation paused. Assessment/Plan Problem List: (1) Retroperitoneal bleed Status: Acute Plan: -- Lg areas of hemorrhage involving the left peritoneum psoas muscle, the mesentery as well as area adjacent to the left external iliac artery. -- Hgb stable -- Daily CBC (2) Anemia Status: Acute Plan: -- Transfuse to keep Hgb greater than 8. -- Due to intra-abdominal bleeding. -- Daily CBC and coags. (3) Superficial thrombosis of right lower extremity Status: Acute Plan: -- US on 05/18 shows nonocclusive clot to R posterior tibial vein -- No IVC filter since this is superficial. -- No anticoagulation due to high risk of bleeding. Assessment 62 y/o male who presented to the ED with chest pain and was found to be in acute STEMI. Plan 1. Hgb has been stable; no evidence of bleeding. Will check daily CBC at this point. 2. Once stable we may get a repeat CT abdomen to assess previous retroperitoneal bleed. 3. Supportive care. 4. No IVC filter at this time. Attending Statement The exam, history, and the medical decision-making described in the above note were completed with the assistance of the mid-level provider. I reviewed and agree with the findings presented. I attest that I had a [id number] encounter with the patient on the same day, and personally performed and documented my assessment and findings in the medical record. Hb stable. Repeat CT scan of abdomen once stable. continue supportive care. Problem Qualifiers (1) Anemia: Jessica Canas May 22, 2016 09:13 Carmelo Veras MD May 22, 2016 23:53
--- NOTE | 2016-05-22 13:48 | HHI.CCPN ---
Subjective Remarks/Hospital Course 61-year-old AA male. Date of admission 05/05/2016. Date of consultation 2016. Past medical history includes hypertensive heart disease, hypertension, diabetes mellitus type 2 and spinal stenosis. He presented to [facility] today with history of acute onset of diaphoresis, chest pain and syncope. Her documentation, Chest pain was 7 out of 10 without radiation. Later in the hospital physician, patient did have ST elevation anterior septal leads. I he had a cardiac catheterization in 2009 which revealed moderate coronary disease which documented 50-60% stenosis in the LAD diagonals 1 and 2. Recommended medical management at that time. Dr. Marcano was notified and proceed to the cardiac catheter lab. Patient sees heparin and one aspirin prior to cardiac catheterization. During heart catheterization,, patient became hypertensive, tachypneic, hypoxic and agitated including abdominal pain with nausea and vomiting. Patient was intubated by Dr. Simon and dispensed transferred to room 505a. Currently hemodynamic stable on a propofol drip. 05/06: Patient required additional sedation overnight. Was moving all 4 extremity spontaneously and strongly. Potassium is replaced overnight along with magnesium. This afternoon approximate 4 PM, patient went into a sinus bradycardia in the 40s. RN cannot locate pulse and possibly went into a PEA arrest. Patient received CPR for approximately 2 minutes. ROSC return immediately. Received 1 mg of epinephrine IV. Blood pressure was 240 systolic. Saturations were above 90% the entire time. Dr. Marcano was made aware. No new recommendations at this time. Electrolytes currently pending. Patient is currently hemodynamic stable and an arterial line/left radial has been placed 05/07: no improvement in delirium or mental status. spiking low grade fevers. 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 CT surgery consulted and declined to operate here: he will need referral once stabilized. fio2 requirements still high. CT chest also with evidence of bibasilar consolidation which may be aspiration pneumonitis vs. pneumonia now that we are 48h out from initial presentation and now spiking fevers. 05/08: delirium persists. continues to spike fevers. jolly cultured yesterday without results yet. holding sedation today. 05/09: delirium slightly improved. waking up on SAT, weakly following commands. cultures still NGTD. hypoxia slightly improved. 05/10: delirium improving. weakly following commands still. cultures still NGTD. fevers persist, although fever curve appears to be improving. hypoxia continues to improve. still remains very critically ill. 05/11: Tmax 99.9. Currently 99.1. Tolerating tube feeding. One bowel movement. Continues to have difficulty weaning ventilator. 05/12: Currently afebrile. Tolerating tube feeding. Positive BM. Increased FiO2 from 45-60%. +1 L. Arousable on sedation vacation and weakly follows commands. 05/13: Remains intubated, sedated. FiO2 now reduced to 45% (was 55% today am). Start weaning trials after starting Precedex. To control BP May use Cardene, given anomalous RCA 05/14: Extubated yesterday, remained on BiPAP overnight. Intermittently agitated. Following commands to me today, while on BiPAP. Remains on Cardene infusion for uncontrolled hypertension. Urine output 4.7 L in 24 hours 05/15: On 3 L nasal cannula. Fever trending down, breathing more comfortably. Able to communicate. Discussed with Dr. Marcano. Dr. Pendleton will be available tomorrow, will probably need transfer to [facility] for RCA unroofing 05/16: Acutely hypotensive overnight with tachycardia. MAP was 55 with greater than 130s. Received 3.5 L of normal saline bolus with improvement in blood pressure and heart rate. Lethargic on BiPAP. ABG pending, HB dropped from 10.9 to 7.8. No obvious source of bleeding. STAT 2U PRBC. STAT CT head and CT abd pelvis. R/O ICH or RP bleed. Patient received only 5mg Nicci at 2100 yesterday, no other sedation. Last dose of Lovenox was at 211, held now 05/17: Developed Hemorrhagic shock from large retroperitoneal hemorrhage night to 05/15/16. Stabilized after 3 units of PRBC and protamine. Hemoglobin 8.7 today. Remain encephalopathy and unresponsive yesterday. MRI 05/16/16 shows small punctate white matter infarcts, bilateral basal ganglia infarcts. Urology consult pending. Antiplatelet drugs on hold. Now with anuria from ATN secondary to shock. Nephrology consult pending 05/18: Developed sudden onset bradycardia in 40s, with acute hypotension yesterday evening around 5 PM. ACLS protocol initiated (did not arrest or lose pulse). Received multiple epinephrine, bicarbonate calcium and fluid boluses. Patient was placed on dopamine 20 mics per KG per minute, Levophed 20 mics per KG per minute, epinephrine 2.5 mics per minute and eventually stabilized with systolic blood pressure reading 120s. Hemoglobin on ABG was 7 and emergently transfused 3 units PRBC and 2 units FFP. Lab hemoglobin came back at 6.8. Patient also was profoundly acidemic with pH of 7.16. Patient received total 3 A of bicarbonate and bicarbonate infusion was started, minute ventilation was also increased. 05/19: MAXIMUM TEMPERATURE 100.3. Currently 99.5. No bowel movement. Tube feeds were restarted. FiO2 50%. PEEP at 8. 05/20: MAXIMUM TEMPERATURE 100.9. Positive BM. Tube feeds were restarted today. PT plateau. FiO2 down to 85%. Semiemergent bronchoscopy yesterday for right upper lobe airway obstruction. Resolved Subjective 05/21: MAXIMUM TEMPERATURE 100.7. Currently 99.6. Somewhat tachycardic. 2 bowel movements overnight. Tolerating tube feeds at 30 cc an hour. Had episode of emesis overnight. 05/22: Remains sedated, orally intubated on mechanical ventilation Objective Vital Signs Date Time Temp Pulse Resp B/P Pulse Ox O2 Delivery O2 Flow Rate FiO2 05/22/16 12:00 98.5 109 20 129/84 100 126/75 05/22/16 12:00 55 05/18/16 07:00 Mechanical Ventilator Intake and Output 05/21/16 05/21/16 05/22/16 08:00 16:00 00:00 Intake Total 632 ml 1320 ml 779 ml Output Total 15 ml 20 ml 10 ml Balance 617 ml 1300 ml 769 ml Result Diagram: 05/22/16 0530 05/22/16 0530 Other Results Microbiology Date/Time Procedure Status Source Growth 05/19/16 19:42 Gram Stain - Final Complete Bronchial Washings Right Upper Lobe 05/19/16 19:42 Bronchial Culture - Final Complete Bronchial Washings Right Upper Lobe RARE GROWTH NORMAL RESPIRATORY [facility]ES[facility]O Imaging Last Impressions Chest X-Ray 05/21/16 0000 Signed Impressions: Service Date/Time: Saturday, May 21, 2016 03:03 - CONCLUSION: Stable chest x-ray with likely bilateral pleural effusions with associated volume loss and/ or airspace consolidation. Low Narvaez MD Lower Extremity Ultrasound 05/18/16 0000 Signed Impressions: Service Date/Time: May 13:17 - CONCLUSION: Nonocclusive thrombus in the right posterior tibial vein. Remaining veins are otherwise patent. Carlitos Aguirre MD Head CT 05/16/16 0000 Signed Impressions: Service Date/Time: Monday, May 16, 2016 08:30 - CONCLUSION: Suspected bilateral basal ganglia calcifications are unchanged. No evidence of hemorrhage, edema, mass or mass effect. Stephen Quintanilla MD Brain MRI 05/16/16 0000 Signed Impressions: Service Date/Time: Monday, May 16, 2016 15:46 - CONCLUSION: 1. Small punctate areas of white matter infarction without cortical extension or hemorrhage. There is no significant mass effect. 2. Bilateral basal ganglia infarcts measuring 1 cm Bobby Lamas MD Abdomen/Pelvis CT 05/16/16 0000 Signed Impressions: Service Date/Time: Monday, May 16, 2016 08:39 - CONCLUSION: There are large areas of hemorrhage including the left retroperitoneum and psoas muscle, within the mesentery and a smaller area in the right psoas muscle. They don't appear to be related to the abdominal aorta or the internal iliac arteries. There is a small focal collection hemorrhage adjacent to the left external iliac artery as it enters the pelvis, but I don't believe that is related to the large amount of hemorrhage seen elsewhere. The areas of hemorrhage are large and multi-focal. Stephen Quintanilla MD Upper Extremity Ultrasound 05/10/16 0000 Signed Impressions: Service Date/Time: Tuesday, May 10, 2016 09:44 - CONCLUSION: Occlusive thrombus in the right cephalic vein. Otherwise negative Shahid Sin MD CT Angiography 05/06/16 0000 Signed Impressions: Service Date/Time: Saturday, May 07, 2016 00:04 - CONCLUSION: 1. Lobar consolidation bilaterally in the lower lobes. 2. Negative for pulmonary embolism. Michael Colbert MD Objective Remarks GENERAL: 61-year-old AA male, morbidly obese, intubated sedated with versed and fentanyl drips, critically ill SKIN: Warm and dry. No rash HEAD: Atraumatic. Normocephalic. EYES: Pupils equal and round around 2-3 mm bilaterally and slightly reactive. No scleral icterus. No injection or drainage. ENT: No nasal bleeding or discharge. Orotracheally intubated NECK: Trachea midline. JVD difficult to assess due to body habitus. Left IJ triple-lumen, right IJ Vas-Cath CARDIOVASCULAR: Distant due to body habitus. Regular rate and rhythm. S1, S2. Without murmur RESPIRATORY: Diminished breath sounds bilaterally due to body habitus. Breath sounds equal bilaterally. On ACV GASTROINTESTINAL: Abdomen obese, non-tender, protuberant, distended. no guarding. MUSCULOSKELETAL: Extremities without significant peripheral edema. Right femoral arterial line NEUROLOGICAL: Patient is sedated on Versed infusion. Pupils are sluggishly reactive. Slight bilateral lower extremity withdrawal to pain today. A/P Assessment and Plan Neuro/Psych: Bilateral basal ganglia infarcts, small punctate white matter infarcts on MRI Acute toxic metabolic encephalopathy Versed at 3 mg an hour/fentanyl at 150 g a minute hour for sedation/analgesia while intubated Goal of RASS -2 Daily sedation vacation Neurology consulted Dr. Felix MRI of the brain done 05/16/16 shows small punctate white matter infarcts, bilateral basal ganglia infarcts Off Seroquel and Haldol due to nonsustained V. tach Head CT 05/08, 05/16: negative acute. EEG 05/12 revealed generalized slowing right greater than left. No epileptiform activity. EEG 05/16: No seizure, severe encephalopathy Once patient is more stable from a respiratory standpoint will wean off sedation to evaluate neurological status CV: Hemorrhagic shock due to left retroperitoneal hemorrhage-shock resolved Severe bradycardia and hypotension 05/17/16 most likely secondary to recurrent bleed Aberrant RCA off LCC Nonsustained V. tach single episode Diastolic heart failure Coronary artery disease Nonischemic cardiomyopathy secondary to hypertensive heart disease Hypertensive emergency On 05/17/16: Developed sudden onset bradycardia in 40s, with acute hypotension around 5 PM. ACLS protocol initiated received multiple epinephrine, bicarbonate calcium and fluid boluses. Placed on dopamine 20 mics per KG per minute, Levophed 20 mics per KG per minute, epinephrine 2.5 mics per minute and eventually stabilized with systolic blood pressure reading 120s. Hemoglobin came back at 6.8-3U prbc and 2U FFP given . Patient also was profoundly acidemic with pH of 7.16, received total 3 A of bicarbonate and bicarbonate infusion was started, minute ventilation was also increased. On 05/16/16 patient received 4 L normal saline boluses, 3 units PRBC Currently off of Levophed Discontinue all antihypertensives and beta blockers Status post cardiac catheterization by Dr. Moy. No intervention performed. Known coronary artery artery disease to the first and second diagonals the LAD. Aberrant RCA off left coronary cups. Transfer to fo RCA unroofing once clinically stable Aspirin 81 mg on hold due to RP hemorrhage. (Plavix DC d 05/15/[address] Marcano in anticipation of probable unroofing surgery) Hold Lipitor 20 mg a night. Hold Procardia XL 90 mg,metoprolol 25 mg by mouth every 8 hours, clonidine 0.2 mg by mouth every 8 hours ALL held due to hypotension shock Holding Lasix 20 mg po BID (Holding home medications of hydrochlorothiazide 25 mg daily, spironolactone 50 mg twice a day) Pulm: Acute hypoxemic respiratory failure-extubated 05/13/16, re intubated 05/16/16 for airway protection Likely underlying STU Right upper lobe mucus plugging Extubated 05/13/16. Reintubated 05/16/16 for airway protection due to severe encephalopathy daily C Pap trials as tolerated Chest x-ray shows new infiltrate right upper lobe ACV 20/600/12/85 Ventilator bundle Bronchodilator therapy every 4 hours and as needed. GI: Acute large left retroperitoneal hemorrhage Hypoalbuminemia Constipation- resolved. Resume Nepro at 50 cc an hour currently at 30 cc an hour Supportive care with blood transfusion and correction of coagulopathy Continue Protonix for GI prophylaxis Colace/Senokot twice a day for bowel regimen, /Renal: Acute kidney failure due to ATN Anuria Chaudhry for accurate I's and O's in a critically ill patient Nephrology consulted, HD started 05/17/16 Dialyzed on 05/22 Endo: Diabetes mellitus type 2 Hyperglycemia Sliding-scale insulin Accu-Cheks to maintain euglycemia. Medium regimen every 6 hours Heme: Acute blood loss anemia with shock Large left retroperitoneal hemorrhage Right cephalic superficial thrombus/right PT DVT Normocytic anemia Leukocytosis Transfused 3 units PRBC stat on 05/16/16 Transfused 3 units PRBC and 2 units FFP Transfuse 1 unit PRBCs 05/19. Therapeutic Lovenox discontinued, aspirin placed on hold 75 mg IV protamine slow infusion (D/W with Dr. grimes) on 05/16/16. If patient continues to bleed consult IR for possible embolization Hematology consulted, recommends against anticoagulation and IVC filter CBC daily. Monitor trends. No active bleeding. Was on Lovenox 150 mg subcutaneous twice a day-DCd 05/16/16 ID: Aspiration pneumonia/Enterobacter aerogenes in sputum --2 Sputum culture with Enterobacter. ID changed antibiotics from meropenem, micafungin to cefepime and Flagyl. Off vancomycin Pertinent cultures 05/07 - blood cultures 2 - negative 05/08 - sputum - negative 05/08 - urine - negative 05/08 - blood cultures - negative 05/13 - blood cx negative 05/13 - urine cx negative 05/16 - sputum Enterobacter aerogenes 05/16 - urine neg 131 - blood cultures neg MSK: History of spinal stenosis/laminectomy/left total knee replacement and left ring finger amputation PT evaluate and treat Access - Left IJ CVL 05/17. Right IJ venous catheter 05/17. Right femoral art line 05/17 Prophylaxis - GI - Protonix - DVT -DCd Lovenox. SCD on L leg - Check venous doppler if clinically indicated Critical Care: The total critical care time was 35 minutes. Time to perform other separately billable procedures was not included in the critical care time. Sj Mariee MD May 22, 2016 13:48
--- NOTE | 2016-05-22 16:28 | HHI.NPPN ---
Subjective History of Present Illness 61 year old with ARF, CHF, Respiratory failure Additional Remarks Patient remain intubated and sedated. Objective Data Data 05/21/16 05/22/16 19:00 07:00 Intake Total 1320 ml 1690 ml Output Total 20 ml 30 ml Balance 1300 ml 1660 ml Intake Oral 0 ml IV Total 1042 ml 1604 ml Tube Feeding 218 ml 86 ml Tube Irrigant 60 ml Output Urine Total 20 ml 30 ml # Bowel Movements 1 0 Vital Signs Date Time Temp Pulse Resp B/P Pulse Ox O2 Delivery O2 Flow Rate FiO2 05/22/16 16:00 123 05/22/16 16:00 98.7 123 20 121/74 100 122/72 05/22/16 16:00 55 05/22/16 14:00 112 05/22/16 12:00 98.5 109 20 129/84 100 126/75 05/22/16 12:00 55 05/22/16 12:00 109 05/22/16 10:21 100 55 05/22/16 10:00 108 05/22/16 08:00 111 05/22/16 08:00 55 05/22/16 08:00 99.2 110 20 138/91 100 133/79 05/22/16 07:48 100 55 05/22/16 06:00 110 05/22/16 04:10 100 55 05/22/16 04:00 55 05/22/16 04:00 99.0 110 20 134/86 100 05/22/16 04:00 110 05/22/16 02:00 104 05/22/16 00:00 99.2 107 20 138/81 100 05/22/16 00:00 55 05/22/16 00:00 107 05/21/16 23:58 100 55 05/21/16 22:00 109 05/21/16 20:09 100 55 05/21/16 20:00 108 05/21/16 20:00 55 05/21/16 20:00 99.4 108 19 159/90 100 05/21/16 18:00 103 05/21/16 17:59 97 55 -: 05/22/16 0530 05/22/16 0530 Physical Exam General Appearance: Obese Appearance Remarks Intubated and sedated. Neck Neck Exam: Neck Supple Pulmonary Resp Exam: Rhonchi, Decreased Bases, Diminished Breath Sounds, Poor Inspiratory Effort Cardiology CV Exam: Tachycardia Gastrointestinal/Abdomen GI Exam: Soft, Non-Tender, Distended Extremeties Extremities Exam: Moderate Edema, Pitting Edema, Dependent Edema Neurologic Neuro Exam: Sedated Assessment/Plan Problem List: (1) Acute renal failure Plan: Patient has oliguric acute renal failure and remains essentially anuric. Continue MWF HD for now. BUN and Creatinine remain elevated. Follow urine out put and BMP. HD as needed. 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 Plan: Cardiology following (4) Acute hypoxemic respiratory failure Plan: On ventilator (5) Hypertensive emergency Plan: BP improved (6) Diabetes mellitus Plan: Continue monitor blood glucose (7) CAD (coronary artery disease) Plan: Presented with STEMI, follow with cardiology (8) Subsequent ST elevation (STEMI) myocardial infarction of anterior wall Plan: Planned transfer to when stable. No intervention performed here. Problem Qualifiers (1) Acute renal failure: Qualified Code: N17.0 - Acute renal failure with tubular necrosis (2) Diabetes mellitus: Qualified Code: E13.8 - Diabetes mellitus of other type with complication, unspecified alf insulin use status (3) CAD (coronary artery disease): Qualified Code: I25.10 - Coronary artery disease, angina presence unspecified, unspecified vessel or lesion type, unspecified whether [place] or transplanted heart Renee Bhat MD May 22, 2016 16:28
[2016-05-22] MEDS: HEPARIN SODIUM - IV 10,000 UNITS/10 ML VIAL PRN (16:57)
[2016-05-22] MEDS: EPOETIN ALFA 10,000 UNITS/ML VIAL IV PRN (16:57)
[2016-05-22] MEDS: GENTAMICIN SULFATE (DIALYSIS USE ONLY) 20 MG/2 ML VIAL IV PRN (16:58)
[2016-05-22] MEDS: CEFEPIME INJ 2,000 MG in SODIUM CHLORIDE 0.9% INJ 100 ML IV SCH (19:59)
[2016-05-23] VITALS (16 sets, daily range): BP systolic 117–167; BP diastolic 69–110; PULSE 110–124; RESP 20–27; TEMP 98–100.3; O2SAT 93–98
[2016-05-23] MEDS: INSULIN NovoLIN REGULAR SUPPLEMENTAL SCALE SQ SCH ×4 (00:13→18:00)
[2016-05-23] MEDS: MIDAZOLAM 100 MG/NS 100 ML DRIP Premix IV SCH (00:27)
[2016-05-23] MEDS: fentaNYL 2,500 MCG/NS 250 ML IV SCH (00:27)
[2016-05-23] MEDS: RESP: ALBUTEROL 2.5 MG/IPRATROPIUM 0.5 MG NEB (SCH) NEB ×6 (03:38→23:55)
[2016-05-23] MEDS: RESP: SODIUM CHLORIDE 3% 4 ML NEB NEB SCH ×6 (03:38→23:55)
[2016-05-23] MEDS: CHLORHEXIDINE GLUCONATE 2 % 1 PACK (2 CLOTHS) TOP SCH (04:00)
[2016-05-23] MEDS: metroNIDAZOLE 500 MG TAB PO SCH ×3 (05:59→19:42)
[2016-05-23] MEDS: SENNOSIDES 8.6 MG TAB PO SCH ×2 (05:59→18:00)
[2016-05-23 06:59] LABS: ALKALINE PHOSPHATASE 94 U/L (45-117); ALT (GPT) 356 U/L (12-78); ANION GAP 14 MEQ/L (5-15); AST (GOT) 182 U/L (15-37); BICARBONATE 25.4 MEQ/L (21.0-32.0); BLOOD UREA NITROGEN 101 MG/DL (7-18); CHLORIDE 103 MEQ/L (98-107); GLOMERULAR FILTRATION RATE 9 ML/MIN (>89); POTASSIUM 4.7 MEQ/L (3.5-5.1); SODIUM (NA) 142 MEQ/L (136-145); TOTAL BILIRUBIN ADULT 1.1 MG/DL (0.2-1.0)
[2016-05-23 07:17] LABS: AUTOMATED NEUTROPHIL # 11.2 TH/MM3 (1.8-7.7); BASOPHIL % 0.3 % (0.0-2.0); EOSINOPHIL # 0.3 TH/MM3 (0-0.4); EOSINOPHIL % 2.2 % (0.0-4.0); HEMATOCRIT 27.3 % (39.0-51.0); LYMPH % 4.7 % (9.0-44.0); LYMPHOCYTE # 0.6 TH/MM3 (1.0-4.8); MEAN CELL VOLUME 88.1 FL (80.0-100.0); MEAN CORPUSCULAR HEMOGLOBIN 29.4 PG (27.0-34.0); MEAN CORPUSCULAR HGB CONC 33.4 % (32.0-36.0); MONO % 10.8 % (0.0-8.0); PLATELET COUNT 254 TH/MM3 (150-450); RED BLOOD COUNT 3.09 MIL/MM3 (4.50-5.90); RED CELL DISTRIBUTION WIDTH 16.5 % (11.6-17.2); WHITE BLOOD COUNT 13.7 TH/MM3 (4.0-11.0)
[2016-05-23 07:24] LABS: HEMO FLAGS AUTO DIFF
[2016-05-23 08:10] LABS: BANDS 3 % (0-6); EOSINOPHILS 1 % (0-4); NEUTROPHIL # MANUAL DIFF 11.8 TH/MM3 (1.8-7.7); POLYS (SEG NEUTROPHILS) 83 % (16-70); SCAN/DIFF FINAL DIFF MANUAL; WBC DIFF SAMPLE 100
[2016-05-23 08:12] LABS: PLATELET ESTIMATE SMEAR NORMAL (NORMAL); PLATELET MORPHOLOGY NORMAL (NORMAL)
--- NOTE | 2016-05-23 09:32 | HHI.IDPN ---
Subjective Subjective Remarks Mr. Short is a 61-year-old male who was admitted on May 05, 2016. Patient's past medical history significant for hypertensive heart disease, hypertension, type 2 diabetes and spinal stenosis. Patient presented to [facility] on the day of admission with history of acute onset of diaphoresis chest pain and syncope. Patient now has retroperitoneal hematoma, IC bleed. ID following for possible sepsis. Overnight events reviewed. Low grade fevers. Tmax 100.2 F. Undergoes HD. UO still low. Not on pressors. No rash No diarrhea Antibiotics Cefepime IV Flagyl Lines Line sites with no e/o infection Past Medical History reviewed Allergies: Coded Allergies: Penicillin (Verified Allergy, Mild, "I GO CRAZY", 09/01/15) Objective . Vital Signs Date Time Temp Pulse Resp B/P Pulse Ox O2 Delivery O2 Flow Rate FiO2 05/23/16 08:30 95 55 05/23/16 06:00 118 05/23/16 04:12 96 55 05/23/16 04:00 55 05/23/16 04:00 123 05/23/16 04:00 99.2 123 20 131/95 94 139/78 05/23/16 02:00 120 05/23/16 01:09 96 55 05/23/16 00:00 100.2 121 20 126/76 97 117/69 05/23/16 00:00 121 05/23/16 00:00 55 05/22/16 22:02 97 55 05/22/16 22:00 122 05/22/16 20:00 122 05/22/16 20:00 55 05/22/16 20:00 99.1 122 16 124/84 99 128/76 05/22/16 19:16 98 55 05/22/16 19:16 98 55 05/22/16 18:00 123 05/22/16 16:44 100 55 05/22/16 16:00 123 05/22/16 16:00 98.7 123 20 121/74 100 122/72 05/22/16 16:00 55 05/22/16 14:00 112 05/22/16 12:00 98.5 109 20 129/84 100 126/75 05/22/16 12:00 55 05/22/16 12:00 109 05/22/16 10:21 100 55 05/22/16 10:00 108 05/22/16 05/22/16 05/23/16 15:00 23:00 07:00 Intake Total 1155 ml 1161 ml 1020 ml Output Total 80.0 ml 4030 ml 25 ml Balance 1075.0 ml -2869 ml 995 ml Intake Oral 0 ml IV Total 1008 ml 947 ml 700 ml Tube Feeding 87 ml 94 ml 200 ml Other 60 ml 120 ml 120 ml Output Urine Total 20 ml 30 ml 25 ml Tube Feeding Residual Discard 60.0 ml Hemodialysis 4000 ml # Bowel Movements 1 0 0 . Laboratory Tests Test 05/21/16 05/22/16 05/23/16 14:50 05:30 05:45 White Blood Count 12.3 TH/MM3 13.2 TH/MM3 13.7 TH/MM3 Red Blood Count 3.04 MIL/MM3 3.05 MIL/MM3 3.09 MIL/MM3 Hemoglobin 8.7 GM/DL 8.9 GM/DL 9.1 GM/DL Hematocrit 26.6 % 26.9 % 27.3 % Mean Corpuscular Volume 87.5 FL 88.2 FL 88.1 FL Mean Corpuscular Hemoglobin 28.7 PG 29.1 PG 29.4 PG Mean Corpuscular Hemoglobin 32.8 % 33.0 % 33.4 % Concent Red Cell Distribution Width 16.4 % 16.2 % 16.5 % Platelet Count 184 TH/MM3 208 TH/MM3 254 TH/MM3 Mean Platelet Volume 8.9 FL 8.8 FL 9.0 FL Neutrophils (%) (Auto) 84.1 % 82.0 % Lymphocytes (%) (Auto) 4.8 % 4.7 % Monocytes (%) (Auto) 8.8 % 10.8 % Eosinophils (%) (Auto) 2.1 % 2.2 % Basophils (%) (Auto) 0.2 % 0.3 % Neutrophils # (Auto) 11.1 TH/MM3 11.2 TH/MM3 Lymphocytes # (Auto) 0.6 TH/MM3 0.6 TH/MM3 Monocytes # (Auto) 1.2 TH/MM3 1.5 TH/MM3 Eosinophils # (Auto) 0.3 TH/MM3 0.3 TH/MM3 Basophils # (Auto) 0.0 TH/MM3 0.0 TH/MM3 CBC Comment AUTO DIFF AUTO DIFF Differential Total Cells 100 100 Counted Neutrophils % (Manual) 85 % 83 % Band Neutrophils % 4 % 3 % Lymphocytes % 4 % 4 % Monocytes % 3 % 9 % Eosinophils % 1 % 1 % Neutrophils # (Manual) 12.1 TH/MM3 11.8 TH/MM3 Myelocytes 3 % Differential Comment FINAL DIFF FINAL DIFF MANUAL MANUAL Platelet Estimate NORMAL NORMAL Platelet Morphology Comment NORMAL NORMAL Basophilic Stippling FAINT MOD Red Cell Morphology Comment NORMAL Laboratory Tests Test 05/21/16 05/22/16 05/23/16 14:50 05:30 05:45 Sodium Level 141 MEQ/L 142 MEQ/L 142 MEQ/L Potassium Level 4.8 MEQ/L 5.0 MEQ/L 4.7 MEQ/L Chloride Level 102 MEQ/L 102 MEQ/L 103 MEQ/L Carbon Dioxide Level 27.1 MEQ/L 24.7 MEQ/L 25.4 MEQ/L Anion Gap 12 MEQ/L 15 MEQ/L 14 MEQ/L Blood Urea Nitrogen 104 MG/DL 119 MG/DL 101 MG/DL Creatinine 7.87 MG/DL 8.43 MG/DL 7.28 MG/DL Estimat Glomerular Filtration 9 ML/MIN 8 ML/MIN 9 ML/MIN Rate Random Glucose 165 MG/DL 152 MG/DL 174 MG/DL Calcium Level 7.4 MG/DL 7.3 MG/DL 7.6 MG/DL Protein Corrected Calcium 8.1 MG/DL Total Protein 5.9 GM/DL 5.7 GM/DL Lactic Acid Level 1.0 mmol/L Phosphorus Level 9.7 MG/DL Albumin 2.6 GM/DL 2.4 GM/DL Total Bilirubin 1.1 MG/DL Aspartate Amino Transf 182 U/L (AST/SGOT) Alanine Aminotransferase 356 U/L (ALT/SGPT) Alkaline Phosphatase 94 U/L Imaging Last Impressions Chest X-Ray 05/17/16 0600 Signed Impressions: Service Date/Time: Tuesday, May 17, 2016 04:05 - CONCLUSION: No significant change. Minimal basilar atelectasis. Low Johnson MD Head CT 05/16/16 0000 Signed Impressions: Service Date/Time: Monday, May 16, 2016 08:30 - CONCLUSION: Suspected bilateral basal ganglia calcifications are unchanged. No evidence of hemorrhage, edema, mass or mass effect. Stephen Quintanilla MD Brain MRI 05/16/16 0000 Signed Impressions: Service Date/Time: Monday, May 16, 2016 15:46 - CONCLUSION: 1. Small punctate areas of white matter infarction without cortical extension or hemorrhage. There is no significant mass effect. 2. Bilateral basal ganglia infarcts measuring 1 cm Bobby Lamas MD Abdomen/Pelvis CT 05/16/16 0000 Signed Impressions: Service Date/Time: Monday, May 16, 2016 08:39 - CONCLUSION: There are large areas of hemorrhage including the left retroperitoneum and psoas muscle, within the mesentery and a smaller area in the right psoas muscle. They don't appear to be related to the abdominal aorta or the internal iliac arteries. There is a small focal collection hemorrhage adjacent to the left external iliac artery as it enters the pelvis, but I don't believe that is related to the large amount of hemorrhage seen elsewhere. The areas of hemorrhage are large and multi-focal. Stephen Quintanilla MD Upper Extremity Ultrasound 05/10/16 0000 Signed Impressions: Service Date/Time: Tuesday, May 10, 2016 09:44 - CONCLUSION: Occlusive thrombus in the right cephalic vein. Otherwise negative Shahid Sin MD Lower Extremity Ultrasound 05/10/16 0000 Signed Impressions: Service Date/Time: Tuesday, May 10, 2016 09:20 - CONCLUSION: Occlusive thrombus right posterior tibial vein. Otherwise negative with negative left lower extremity Shahid Sin MD CT Angiography 05/06/16 0000 Signed Impressions: Service Date/Time: Saturday, May 07, 2016 00:04 - CONCLUSION: 1. Lobar consolidation bilaterally in the lower lobes. 2. Negative for pulmonary embolism. Michael Colbert MD Physical Exam GENERAL: Obese AAM patient, in no apparent distress. SKIN: No rashes, ecchymoses or lesions. Cool and dry. HEAD: Atraumatic. Normocephalic. No temporal or scalp tenderness. EYES: Pupils equal round and reactive. Extraocular motions intact. No scleral icterus. No injection or drainage. ENT: Large neck, Intubated NECK: Trachea midline. Supple, nontender, no meningeal signs. CARDIOVASCULAR: HS audible. RESPIRATORY: Breath sounds equal bilaterally decreased in the bases. GASTROINTESTINAL: Abdomen soft, non-tender, nondistended. Obese MUSCULOSKELETAL: Extremities without clubbing, cyanosis, or edema. NEUROLOGICAL: Sedated Psych: could not be assessed IV line sites with no e/o infection. Assessment & Plan Remarks SIRS possible Sepsis (fever, tachycardia, hypotension). Given CT findings and clinical picture Retroperitoneal hematoma with reactive changes and hemorrhagic shock related hypotension are more likely. Aspiration Pneumonia: Enterobacter cloacae Pneumonia. Possible Central line associated Blood Stream Infection. Acute metabolic encephalopathy Acute resp failure on BiPAP, component of STU Acute kidney injury: prerenal from hemodynamic changes, chronic HTN related. DM2 uncontrolled: stress as additional factor. CAD non ischemic cardiomyopathy Anemia: acute due to Retroperitoneal bleed. Receiving blood transfusions. Recs: Continue Cefepime IV (covers Enterobacter aerogenes) Continue Flagyl oral/NGT (vomiting/aspiration recently) Follow cultures Follow clinically d/w Tracy Carter MD May 23, 2016 09:32
[2016-05-23] MEDS: SODIUM CHLORIDE 0.9% FLUSH 5 ML FLUSH IV FLUSH SCH ×2 (09:58→19:43)
[2016-05-23] MEDS: DOCUSATE SODIUM 100 MG CAP PO SCH ×2 (09:58→19:42)
[2016-05-23] MEDS: ARTIFICIAL TEARS OPTH SOLN 15 ML BTL EACH EYE SCH ×3 (09:58→18:00)
[2016-05-23] MEDS: CEFEPIME INJ 2,000 MG in SODIUM CHLORIDE 0.9% INJ 100 ML IV SCH ×2 (09:58→19:42)
--- NOTE | 2016-05-23 09:58 | PD.CARD.PN ---
Subjective Subjective Remarks No events noted over night Objective Medications Current Medications Medications (Trade) Dose Ordered Sig/Isabelle Route Start Time Stop Time Status Last Admin (Tears Naturale Opth Soln) 1 drop TID EACH EYE 05/05/16 18:00 05/22/16 17:59 (Zofran Inj) 4 mg Q6H PRN IV 05/05/16 17:15 05/21/16 20:27 (Colace) 100 mg BID PO 05/05/16 21:00 05/22/16 19:59 Miscellaneous Information 1 Q361D XX 05/05/16 17:15 05/05/16 17:15 (Chlorhexidine 2% Cloth) Taper DAILY@04 TOP 05/06/16 04:00 05/02/17 03:59 05/22/16 04:00 (Chlorhexidine 2% Cloth) 3 pack UNSCH PRN TOP 05/05/16 17:15 (Glucagon Inj) 1 mg UNSCH PRN OTHER 05/05/16 17:15 (Aspirin Chew) 81 mg DAILY CHEW 05/06/16 09:00 Hold 05/15/16 08:30 (Lipitor) 20 mg DAILY PO 05/06/16 09:00 Hold 05/15/16 08:32 (Senokot) 17.2 mg Q12H PO 05/06/16 18:00 05/23/16 05:59 (D50w (Vial) Inj) 25 ml UNSCH PRN IV PUSH 05/08/16 21:00 (NovoLIN R SUPPLEMENTAL SCALE) 1 Q6HR SQ 05/09/16 00:00 05/23/16 05:59 (Pill Splitter) 1 ea UNSCH PRN OTHER 05/11/16 15:15 (Lopressor) 25 mg Q8HR PO 05/13/16 22:00 Hold 05/15/16 14:44 (Procardia Xl) 90 mg DAILY PO 05/14/16 09:00 Hold 05/15/16 08:30 (Lasix) 20 mg BID@09,18 PO 05/15/16 18:00 Hold 05/15/16 17:22 Chlorhexidine Gluconate 15 ml 15 ml BID@08,20 MT 05/16/16 20:00 05/22/16 20:00 (NS 1000 ml Inj) 1,000 ml @ 0 mls/hr Q0M PRN IV 05/17/16 12:13 05/17/16 12:27 Heparin Sodium (Porcine) 8000 units 8,000 units UNSCH PRN IVF 05/17/16 12:15 Sodium Chloride 1,000 ml @ 200 mls/hr Q5H PRN IV 05/17/16 12:13 05/17/16 12:28 (NS 1000 ml Inj) 1,000 ml @ 0 mls/hr Q0M PRN IV 05/17/16 12:13 (Mannitol Inj) 12.5 gm UNSCH PRN IV 05/17/16 12:15 (Albumin 25% Inj) 25 gm UNSCH PRN IV 05/17/16 12:15 (NS Flush) 5 ml UNSCH PRN IVF 05/17/16 12:15 05/17/16 12:29 (Heparin Inj) UNSCH PRN .XX 05/17/16 12:15 05/22/16 16:57 (Gentamicin (Dialysis) Inj) 20 mg UNSCH PRN IV 05/17/16 12:15 05/22/16 16:58 (Zofran Inj) 4 mg UNSCH PRN IV 05/17/16 12:15 (Benadryl) 25 mg UNSCH PRN PO 05/17/16 12:15 (Gelfoam 12 Mm/7 Mm Top) 1 foam UNSCH PRN TOP 05/17/16 12:15 (Epogen Inj) 10,000 units UNSCH PRN IV 05/17/16 12:15 05/22/16 16:57 Terbutaline Sulfate 1 mg 1 mg UNSCH PRN SQ 05/17/16 13:45 Midazolam HCl 100 ml @ 0 mls/hr TITRATE IV 05/17/16 21:45 05/23/16 00:27 Norepinephrine Bitartrate 4 mg/ Sodium Chloride 250 ml @ 0 mls/hr TITRATE IV 05/18/16 07:00 05/19/16 17:18 (fentaNYL DRIP) 250 ml @ 0 mls/hr TITRATE IV 05/18/16 20:00 05/23/16 00:27 Metronidazole 500 mg 500 mg Q8HR PO 05/22/16 09:00 05/23/16 05:59 (Maxipime Inj/NS Inj) 100 ml @ 200 mls/hr Q12H IV 05/22/16 21:00 05/22/16 19:59 Vital Signs / I&O Vital Signs Date Time Temp Pulse Resp B/P Pulse Ox O2 Delivery O2 Flow Rate FiO2 05/23/16 08:30 95 55 05/23/16 06:00 118 05/23/16 04:12 96 55 05/23/16 04:00 55 05/23/16 04:00 123 05/23/16 04:00 99.2 123 20 131/95 94 139/78 05/23/16 02:00 120 05/23/16 01:09 96 55 05/23/16 00:00 100.2 121 20 126/76 97 117/69 05/23/16 00:00 121 05/23/16 00:00 55 05/22/16 22:02 97 55 05/22/16 22:00 122 05/22/16 20:00 122 05/22/16 20:00 55 05/22/16 20:00 99.1 122 16 124/84 99 128/76 05/22/16 19:16 98 55 05/22/16 19:16 98 55 05/22/16 18:00 123 05/22/16 16:44 100 55 05/22/16 16:00 123 05/22/16 16:00 98.7 123 20 121/74 100 122/72 05/22/16 16:00 55 05/22/16 14:00 112 05/22/16 12:00 98.5 109 20 129/84 100 126/75 05/22/16 12:00 55 05/22/16 12:00 109 05/22/16 10:21 100 55 05/22/16 10:00 108 I/O 05/22/16 05/22/16 05/22/16 05/23/16 05/23/16 05/23/16 07:00 15:00 23:00 07:00 15:00 23:00 Intake Total 911 ml 1155 ml 1161 ml 1020 ml Output Total 20 ml 80.0 ml 4030 ml 25 ml 386 ml Balance 891 ml 1075.0 ml -2869 ml 995 ml -386 ml Intake Oral 0 ml 0 ml IV Total 825 ml 1008 ml 947 ml 700 ml Tube Feeding 86 ml 87 ml 94 ml 200 ml Other 60 ml 120 ml 120 ml Output Urine Total 20 ml 20 ml 30 ml 25 ml Tube Feeding Residual Discard 60.0 ml Peritoneal Fluid 386 ml Hemodialysis 4000 ml # Bowel Movements 0 1 0 0 Physical Exam GENERAL: Sedated on the vent SKIN: Warm and dry. HEAD: Atraumatic. Normocephalic. EYES: Pupils equal and round. No scleral icterus. No injection or drainage. ENT: No nasal bleeding or discharge. Mucous membranes pink and moist. NECK: Trachea midline. No JVD. CARDIOVASCULAR: Regular rhythm. Tachycardic RESPIRATORY: No accessory muscle use. Decreased breath sounds bilaterally GASTROINTESTINAL: Abdomen soft, non-tender, nondistended. Hepatic and splenic margins not palpable. MUSCULOSKELETAL: Extremities without clubbing, cyanosis, or edema. No obvious deformities. NEUROLOGICAL: Sedated on the vent Laboratory Laboratory Tests Test 05/23/16 05:45 White Blood Count 13.7 TH/MM3 Red Blood Count 3.09 MIL/MM3 Hemoglobin 9.1 GM/DL Hematocrit 27.3 % Mean Corpuscular Volume 88.1 FL Mean Corpuscular Hemoglobin 29.4 PG Mean Corpuscular Hemoglobin 33.4 % Concent Red Cell Distribution Width 16.5 % Platelet Count 254 TH/MM3 Mean Platelet Volume 9.0 FL Neutrophils (%) (Auto) 82.0 % Lymphocytes (%) (Auto) 4.7 % Monocytes (%) (Auto) 10.8 % Eosinophils (%) (Auto) 2.2 % Basophils (%) (Auto) 0.3 % Neutrophils # (Auto) 11.2 TH/MM3 Lymphocytes # (Auto) 0.6 TH/MM3 Monocytes # (Auto) 1.5 TH/MM3 Eosinophils # (Auto) 0.3 TH/MM3 Basophils # (Auto) 0.0 TH/MM3 CBC Comment AUTO DIFF Differential Total Cells 100 Counted Neutrophils % (Manual) 83 % Band Neutrophils % 3 % Lymphocytes % 4 % Monocytes % 9 % Eosinophils % 1 % Neutrophils # (Manual) 11.8 TH/MM3 Differential Comment FINAL DIFF MANUAL Platelet Estimate NORMAL Platelet Morphology Comment NORMAL Basophilic Stippling MOD Sodium Level 142 MEQ/L Potassium Level 4.7 MEQ/L Chloride Level 103 MEQ/L Carbon Dioxide Level 25.4 MEQ/L Anion Gap 14 MEQ/L Blood Urea Nitrogen 101 MG/DL Creatinine 7.28 MG/DL Estimat Glomerular Filtration 9 ML/MIN Rate Random Glucose 174 MG/DL Calcium Level 7.6 MG/DL Total Bilirubin 1.1 MG/DL Aspartate Amino Transf 182 U/L (AST/SGOT) Alanine Aminotransferase 356 U/L (ALT/SGPT) Alkaline Phosphatase 94 U/L Total Protein 5.7 GM/DL Albumin 2.4 GM/DL Assessment and Plan Problem List: (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 (2) Hypertensive emergency (3) Acute hypoxemic respiratory failure (4) Diabetes mellitus (5) CAD (coronary artery disease) (6) NSVT (nonsustained ventricular tachycardia) (7) Retroperitoneal bleed Assessment and Plan 1) Cardiac cath showing mild to moderate CAD 2) Anomalous RCA off Left Coronary Cusp, will need CTA of coronaries to define pathway of RCA between PA and Aorta especially with chest pain/pre-syncopal episodes... but CT done shows that RCA most likely takes an intra-arterial route , discussed with radiology 3) Occlusive thrombus noted in right PT and right cephalic veins 4) Will discuss with CT Surgery about possible transfer for unroofing of RCA once stable and neurologic status confirmed 5) Retroperitoneal bleeds most likely from ASA/Plavix/Lovenox, not felt to be due to cardiac cath as it's left-sided, Lovenox held... watch H/H... Hgb currently stable 6) ATN from hypotension, started on HD 7) Pressors off, blood pressure stable, continue to wean vent FIO2 as possible 8) Off of all cardiac medications at this time, due to previous hemorrhagic shock Problem Qualifiers (1) Diabetes mellitus: Qualified Code: E13.8 - Diabetes mellitus of other type with complication, unspecified retirement insulin use status (2) CAD (coronary artery disease): Qualified Code: I25.10 - Coronary artery disease, angina presence unspecified, unspecified vessel or lesion type, unspecified whether [place] or transplanted heart Maurizio Marcano DO May 23, 2016 09:58
[2016-05-23] MEDS: CHLORHEXIDINE 0.12% (ORAL KIT) 15 ML CUP MT SCH ×2 (09:59→19:43)
--- NOTE | 2016-05-23 15:28 | HHI.NPPN ---
Subjective History of Present Illness 61 year old with ARF, CHF, Respiratory failure Additional Remarks Patient remain intubated and sedated, clinically same. Objective Data Data 05/22/16 05/23/16 19:00 07:00 Intake Total 1155 ml 2181 ml Output Total 4080.0 ml 55 ml Balance -2925.0 ml 2126 ml Intake Oral 0 ml IV Total 1008 ml 1647 ml Tube Feeding 87 ml 294 ml Other 60 ml 240 ml Output Urine Total 20 ml 55 ml Tube Feeding Residual Discard 60.0 ml Hemodialysis 4000 ml # Bowel Movements 1 0 Vital Signs Date Time Temp Pulse Resp B/P Pulse Ox O2 Delivery O2 Flow Rate FiO2 05/23/16 12:00 98 55 05/23/16 08:30 95 55 05/23/16 06:00 118 05/23/16 04:12 96 55 05/23/16 04:00 55 05/23/16 04:00 123 05/23/16 04:00 99.2 123 20 131/95 94 139/78 05/23/16 02:00 120 05/23/16 01:09 96 55 05/23/16 00:00 100.2 121 20 126/76 97 117/69 05/23/16 00:00 121 05/23/16 00:00 55 05/22/16 22:02 97 55 05/22/16 22:00 122 05/22/16 20:00 122 05/22/16 20:00 55 05/22/16 20:00 99.1 122 16 124/84 99 128/76 05/22/16 19:16 98 55 05/22/16 19:16 98 55 05/22/16 18:00 123 05/22/16 16:44 100 55 05/22/16 16:00 123 05/22/16 16:00 98.7 123 20 121/74 100 122/72 05/22/16 16:00 55 -: 05/23/16 0545 05/23/16 0545 Physical Exam General Appearance: Obese Appearance Remarks Intubated and sedated. Neck Neck Exam: Neck Supple Pulmonary Resp Exam: Rhonchi, Decreased Bases, Diminished Breath Sounds, Poor Inspiratory Effort Cardiology CV Exam: Tachycardia Gastrointestinal/Abdomen GI Exam: Soft, Non-Tender, Distended Extremeties Extremities Exam: Moderate Edema, Pitting Edema, Dependent Edema Neurologic Neuro Exam: Sedated Assessment/Plan Problem List: (1) Acute renal failure Plan: Patient has oliguric acute renal failure and remains essentially anuric. Continue MWF HD for now. BUN and Creatinine remain elevated. HD done yesterday. Still need to remove more fluid with HD tomorrow. Urine out put is minimal. 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 Plan: Cardiology following (4) Acute hypoxemic respiratory failure Plan: On ventilator (5) Hypertensive emergency Plan: BP improved (6) Diabetes mellitus Plan: Continue monitor blood glucose (7) CAD (coronary artery disease) Plan: Presented with STEMI, follow with cardiology (8) Subsequent ST elevation (STEMI) myocardial infarction of anterior wall Plan: Planned transfer to when stable. No intervention performed here. Problem Qualifiers (1) Acute renal failure: Qualified Code: N17.0 - Acute renal failure with tubular necrosis (2) Diabetes mellitus: Qualified Code: E13.8 - Diabetes mellitus of other type with complication, unspecified care home insulin use status (3) CAD (coronary artery disease): Qualified Code: I25.10 - Coronary artery disease, angina presence unspecified, unspecified vessel or lesion type, unspecified whether caht[place] or transplanted heart Renee Bhat MD May 23, 2016 15:28
--- NOTE | 2016-05-23 15:50 | HHI.CCPN ---
Subjective Remarks/Hospital Course 61-year-old AA male. Date of admission 05/05/2016. Date of consultation 2016. Past medical history includes hypertensive heart disease, hypertension, diabetes mellitus type 2 and spinal stenosis. He presented to [facility] today with history of acute onset of diaphoresis, chest pain and syncope. Her documentation, Chest pain was 7 out of 10 without radiation. Later in the hospital physician, patient did have ST elevation anterior septal leads. I he had a cardiac catheterization in 2009 which revealed moderate coronary disease which documented 50-60% stenosis in the LAD diagonals 1 and 2. Recommended medical management at that time. Dr. Marcano was notified and proceed to the cardiac catheter lab. Patient sees heparin and one aspirin prior to cardiac catheterization. During heart catheterization,, patient became hypertensive, tachypneic, hypoxic and agitated including abdominal pain with nausea and vomiting. Patient was intubated by Dr. Simon and dispensed transferred to room 505a. Currently hemodynamic stable on a propofol drip. 05/06: Patient required additional sedation overnight. Was moving all 4 extremity spontaneously and strongly. Potassium is replaced overnight along with magnesium. This afternoon approximate 4 PM, patient went into a sinus bradycardia in the 40s. RN cannot locate pulse and possibly went into a PEA arrest. Patient received CPR for approximately 2 minutes. ROSC return immediately. Received 1 mg of epinephrine IV. Blood pressure was 240 systolic. Saturations were above 90% the entire time. Dr. Marcano was made aware. No new recommendations at this time. Electrolytes currently pending. Patient is currently hemodynamic stable and an arterial line/left radial has been placed 05/07: no improvement in delirium or mental status. spiking low grade fevers. 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 CT surgery consulted and declined to operate here: he will need referral once stabilized. fio2 requirements still high. CT chest also with evidence of bibasilar consolidation which may be aspiration pneumonitis vs. pneumonia now that we are 48h out from initial presentation and now spiking fevers. 05/08: delirium persists. continues to spike fevers. jolly cultured yesterday without results yet. holding sedation today. 05/09: delirium slightly improved. waking up on SAT, weakly following commands. cultures still NGTD. hypoxia slightly improved. 05/10: delirium improving. weakly following commands still. cultures still NGTD. fevers persist, although fever curve appears to be improving. hypoxia continues to improve. still remains very critically ill. 05/11: Tmax 99.9. Currently 99.1. Tolerating tube feeding. One bowel movement. Continues to have difficulty weaning ventilator. 05/12: Currently afebrile. Tolerating tube feeding. Positive BM. Increased FiO2 from 45-60%. +1 L. Arousable on sedation vacation and weakly follows commands. 05/13: Remains intubated, sedated. FiO2 now reduced to 45% (was 55% today am). Start weaning trials after starting Precedex. To control BP May use Cardene, given anomalous RCA 05/14: Extubated yesterday, remained on BiPAP overnight. Intermittently agitated. Following commands to me today, while on BiPAP. Remains on Cardene infusion for uncontrolled hypertension. Urine output 4.7 L in 24 hours 05/15: On 3 L nasal cannula. Fever trending down, breathing more comfortably. Able to communicate. Discussed with Dr. Marcano. Dr. Pendleton will be available tomorrow, will probably need transfer to [facility] for RCA unroofing 05/16: Acutely hypotensive overnight with tachycardia. MAP was 55 with greater than 130s. Received 3.5 L of normal saline bolus with improvement in blood pressure and heart rate. Lethargic on BiPAP. ABG pending, HB dropped from 10.9 to 7.8. No obvious source of bleeding. STAT 2U PRBC. STAT CT head and CT abd pelvis. R/O ICH or RP bleed. Patient received only 5mg Nicci at 2100 yesterday, no other sedation. Last dose of Lovenox was at 211, held now 05/17: Developed Hemorrhagic shock from large retroperitoneal hemorrhage night to 05/15/16. Stabilized after 3 units of PRBC and protamine. Hemoglobin 8.7 today. Remain encephalopathy and unresponsive yesterday. MRI 05/16/16 shows small punctate white matter infarcts, bilateral basal ganglia infarcts. Urology consult pending. Antiplatelet drugs on hold. Now with anuria from ATN secondary to shock. Nephrology consult pending 05/18: Developed sudden onset bradycardia in 40s, with acute hypotension yesterday evening around 5 PM. ACLS protocol initiated (did not arrest or lose pulse). Received multiple epinephrine, bicarbonate calcium and fluid boluses. Patient was placed on dopamine 20 mics per KG per minute, Levophed 20 mics per KG per minute, epinephrine 2.5 mics per minute and eventually stabilized with systolic blood pressure reading 120s. Hemoglobin on ABG was 7 and emergently transfused 3 units PRBC and 2 units FFP. Lab hemoglobin came back at 6.8. Patient also was profoundly acidemic with pH of 7.16. Patient received total 3 A of bicarbonate and bicarbonate infusion was started, minute ventilation was also increased. 05/19: MAXIMUM TEMPERATURE 100.3. Currently 99.5. No bowel movement. Tube feeds were restarted. FiO2 50%. PEEP at 8. 05/20: MAXIMUM TEMPERATURE 100.9. Positive BM. Tube feeds were restarted today. PT plateau. FiO2 down to 85%. Semiemergent bronchoscopy yesterday for right upper lobe airway obstruction. Resolved 05/21: MAXIMUM TEMPERATURE 100.7. Currently 99.6. Somewhat tachycardic. 2 bowel movements overnight. Tolerating tube feeds at 30 cc an hour. Had episode of emesis overnight. 05/22: Remains sedated, orally intubated on mechanical ventilation. 05/23: Remains sedated, orally intubated on mechanical ventilation. Dialyzed yesterday. Objective Vital Signs Date Time Temp Pulse Resp B/P Pulse Ox O2 Delivery O2 Flow Rate FiO2 05/23/16 12:00 98 55 05/23/16 06:00 118 05/23/16 04:00 99.2 20 131/95 139/78 Intake and Output 05/22/16 05/22/16 05/23/16 08:00 16:00 00:00 Intake Total 911 ml 1155 ml 1161 ml Output Total 80.0 ml 20 ml 4030 ml Balance 831.0 ml 1135 ml -2869 ml Result Diagram: 05/23/16 0545 05/23/16 0545 Imaging Last Impressions Chest X-Ray 05/21/16 0000 Signed Impressions: Service Date/Time: Saturday, May 21, 2016 03:03 - CONCLUSION: Stable chest x-ray with likely bilateral pleural effusions with associated volume loss and/ or airspace consolidation. Low Narvaez MD Lower Extremity Ultrasound 05/18/16 0000 Signed Impressions: Service Date/Time: May 13:17 - CONCLUSION: Nonocclusive thrombus in the right posterior tibial vein. Remaining veins are otherwise patent. Carlitos Aguirre MD Head CT 05/16/16 0000 Signed Impressions: Service Date/Time: Monday, May 16, 2016 08:30 - CONCLUSION: Suspected bilateral basal ganglia calcifications are unchanged. No evidence of hemorrhage, edema, mass or mass effect. Stephen Quintanilla MD Brain MRI 05/16/16 Signed Impressions: Service Date/Time: Monday, May 16, 2016 15:46 - CONCLUSION: 1. Small punctate areas of white matter infarction without cortical extension or hemorrhage. There is no significant mass effect. 2. Bilateral basal ganglia infarcts measuring 1 cm Bobby Lamas MD Abdomen/Pelvis CT 05/16/16 Signed Impressions: Service Date/Time: Monday, May 16, 2016 08:39 - CONCLUSION: There are large areas of hemorrhage including the left retroperitoneum and psoas muscle, within the mesentery and a smaller area in the right psoas muscle. They don't appear to be related to the abdominal aorta or the internal iliac arteries. There is a small focal collection hemorrhage adjacent to the left external iliac artery as it enters the pelvis, but I don't believe that is related to the large amount of hemorrhage seen elsewhere. The areas of hemorrhage are large and multi-focal. Stephen Quintanilla MD Upper Extremity Ultrasound 05/10/16 0000 Signed Impressions: Service Date/Time: Tuesday, May 10, 2016 09:44 - CONCLUSION: Occlusive thrombus in the right cephalic vein. Otherwise negative Shahid Sin MD CT Angiography 05/06/16 0000 Signed Impressions: Service Date/Time: Saturday, May 07, 2016 00:04 - CONCLUSION: 1. Lobar consolidation bilaterally in the lower lobes. 2. Negative for pulmonary embolism. Michael Colbert MD Objective Remarks GENERAL: 61-year-old AA male, morbidly obese, intubated, critically ill SKIN: Warm and dry. No rash HEAD: Atraumatic. Normocephalic. EYES: Pupils equal and round around 2-3 mm bilaterally and slightly reactive. No scleral icterus. No injection or drainage. ENT: No nasal bleeding or discharge. Orotracheally intubated NECK: Trachea midline. JVD difficult to assess due to body habitus. Left IJ triple-lumen, right IJ Vas-Cath CARDIOVASCULAR: Distant due to body habitus. Regular rate and rhythm. S1, S2. Without murmur RESPIRATORY: Diminished breath sounds bilaterally due to body habitus. Breath sounds equal bilaterally. On ACV GASTROINTESTINAL: Abdomen obese, non-tender, protuberant, distended. no guarding. MUSCULOSKELETAL: Extremities without significant peripheral edema. Right femoral arterial line NEUROLOGICAL: Patient is encephalopathic, off sedation since morning of 05/23. Pupils are sluggishly reactive. Slight bilateral lower extremity withdrawal to pain A/P Assessment and Plan Neuro/Psych: Bilateral basal ganglia infarcts, small punctate white matter infarcts on MRI Acute toxic metabolic encephalopathy Versed/ Fentanyl for sedation/analgesia while intubated. Goal of RASS -2 Daily sedation vacation Neurology consulted Dr. Felix MRI of the brain done 05/16/16 shows small punctate white matter infarcts, bilateral basal ganglia infarcts Off Seroquel and Haldol due to nonsustained V. tach Head CT 05/08, 05/16: negative acute. EEG 05/12 revealed generalized slowing right greater than left. No epileptiform activity. EEG 05/16: No seizure, severe encephalopathy. CV: Hemorrhagic shock due to left retroperitoneal hemorrhage-shock resolved Severe bradycardia and hypotension 05/17/16 most likely secondary to recurrent bleed Aberrant RCA off LCC Nonsustained V. tach single episode Diastolic heart failure Coronary artery disease Nonischemic cardiomyopathy secondary to hypertensive heart disease Hypertensive emergency On 05/17/16: Developed sudden onset bradycardia in 40s, with acute hypotension around 5 PM. ACLS protocol initiated received multiple epinephrine, bicarbonate calcium and fluid boluses. Placed on dopamine 20 mics per KG per minute, Levophed 20 mics per KG per minute, epinephrine 2.5 mics per minute and eventually stabilized with systolic blood pressure reading 120s. Hemoglobin came back at 6.8-3U prbc and 2U FFP given . Patient also was profoundly acidemic with pH of 7.16, received total 3 A of bicarbonate and bicarbonate infusion was started, minute ventilation was also increased. On 05/16/16 patient received 4 L normal saline boluses, 3 units PRBC Currently off of Levophed Off all antihypertensives and beta blockers Status post cardiac catheterization by Dr. Moy. No intervention performed. Known coronary artery artery disease to the first and second diagonals the LAD. Aberrant RCA off left coronary cups. Transfer to fo RCA unroofing once clinically stable Aspirin 81 mg on hold due to RP hemorrhage. (Plavix DC d 05/15/[address] Marcano in anticipation of probable unroofing surgery) Hold Lipitor 20 mg a night. Hold Procardia XL 90 mg,metoprolol 25 mg by mouth every 8 hours, clonidine 0.2 mg by mouth every 8 hours ALL held due to hypotension shock Holding Lasix 20 mg po BID. On dialysis for fluid removal. (Holding home medications of hydrochlorothiazide 25 mg daily, spironolactone 50 mg twice a day) Pulm: Acute hypoxemic respiratory failure-extubated 05/13/16, re intubated 05/16/16 for airway protection Likely underlying STU Right upper lobe mucus plugging Extubated 05/13/16. Reintubated 05/16/16 for airway protection due to severe encephalopathy daily C Pap trials as tolerated Chest x-ray shows new infiltrate right upper lobe ACV 20/600/PEEP decreased to10/FiO2 decreased to 45% Ventilator bundle Bronchodilator therapy every 4 hours and as needed. GI: Acute large left retroperitoneal hemorrhage Hypoalbuminemia Constipation- resolved. Continue Nepro at 50 cc an hour Supportive care with blood transfusion and correction of coagulopathy Continue Protonix for GI prophylaxis Colace/Senokot twice a day for bowel regimen, /Renal: Acute kidney failure due to ATN Anuria Chaudhry for accurate I's and O's in a critically ill patient Nephrology consulted, HD started 05/17/16 Dialyzed on 05/22 Endo: Diabetes mellitus type 2 Hyperglycemia Sliding-scale insulin Accu-Cheks to maintain euglycemia. Medium regimen every 6 hours Heme: Acute blood loss anemia with shock Large left retroperitoneal hemorrhage Right cephalic superficial thrombus/right PT DVT Normocytic anemia Leukocytosis Transfused 3 units PRBC stat on 05/16/16 Transfused 3 units PRBC and 2 units FFP Transfuse 1 unit PRBCs 05/19. Therapeutic Lovenox discontinued, aspirin placed on hold 75 mg IV protamine slow infusion (D/W with Dr. grimes) on 05/16/16. If patient continues to bleed consult IR for possible embolization Hematology consulted, recommends against anticoagulation and IVC filter CBC daily. Monitor trends. No active bleeding. Was on Lovenox 150 mg subcutaneous twice a day-DCd 05/16/16 ID: Aspiration pneumonia/Enterobacter aerogenes in sputum --05/18 Sputum culture with Enterobacter. ID changed antibiotics from meropenem, micafungin to cefepime and Flagyl. Off vancomycin Pertinent cultures 05/07 - blood cultures 2 - negative 05/08 - sputum - negative 05/08 - urine - negative 05/08 - blood cultures - negative 05/13 - blood cx negative 05/13 - urine cx negative 05/16 - sputum Enterobacter aerogenes 05/16 - urine neg 131 - blood cultures neg MSK: History of spinal stenosis/laminectomy/left total knee replacement and left ring finger amputation PT evaluate and treat Access - Left IJ CVL 05/17. Right IJ venous catheter 05/17. Right femoral art line 05/17 Prophylaxis - GI - Protonix - DVT -DCd Lovenox. SCD on L leg - Check venous doppler if clinically indicated D/W Dr. Marcano, D/W patient's at bedside and updated re plan of care and she voiced understanding. Critical Care: The total critical care time was 45 minutes. Time to perform other separately billable procedures was not included in the critical care time. Sj Mariee MD May 23, 2016 15:50
[2016-05-23] MEDS: METOPROLOL TARTRATE 25 MG TAB PO SCH (21:45)
[2016-05-23] MEDS: NIFEdipine 10 MG CAP PO SCH (21:45)
[2016-05-23] MEDS ORDERED: NITROGLYCERIN 2% OINT 1 GM PACKET TOPICAL PRN (22:00)
[2016-05-24] VITALS (18 sets, daily range): BP systolic 143–170; BP diastolic 79–110; PULSE 91–121; RESP 20; TEMP 98.4–100.3; O2SAT 93–100
[2016-05-24] MEDS: INSULIN NovoLIN REGULAR SUPPLEMENTAL SCALE SQ SCH ×5 (00:59→23:52)
[2016-05-24] MEDS: SODIUM CHLORIDE 0.9% FLUSH 5 ML FLUSH IV FLUSH PRN (00:59)
[2016-05-24] MEDS: hydrALAZINE HCL 20 MG/ML VIAL IV PUSH PRN (00:59)
[2016-05-24] MEDS: LABETALOL HCL 100 MG/20 ML VIAL IV PUSH PRN ×4 (02:42→19:44)
[2016-05-24] MEDS: RESP: ALBUTEROL 2.5 MG/IPRATROPIUM 0.5 MG NEB (SCH) NEB ×6 (02:55→23:23)
[2016-05-24] MEDS: RESP: SODIUM CHLORIDE 3% 4 ML NEB NEB SCH ×6 (02:55→23:23)
[2016-05-24] MEDS: CHLORHEXIDINE GLUCONATE 2 % 1 PACK (2 CLOTHS) TOP SCH (04:00)
[2016-05-24] MEDS: metroNIDAZOLE 500 MG TAB PO SCH ×3 (04:08→19:43)
[2016-05-24] MEDS: METOPROLOL TARTRATE 25 MG TAB PO SCH ×3 (04:08→19:46)
[2016-05-24] MEDS: SENNOSIDES 8.6 MG TAB PO SCH ×2 (04:08→18:00)
[2016-05-24] MEDS: NIFEdipine 10 MG CAP PO SCH ×3 (04:09→19:46)
[2016-05-24] MEDS: CHLORHEXIDINE 0.12% (ORAL KIT) 15 ML CUP MT SCH ×2 (08:00→19:44)
[2016-05-24] MEDS: ARTIFICIAL TEARS OPTH SOLN 15 ML BTL EACH EYE SCH ×3 (09:00→18:00)
[2016-05-24] MEDS: DOCUSATE SODIUM 100 MG CAP PO SCH ×2 (09:00→19:43)
[2016-05-24] MEDS: SODIUM CHLORIDE 0.9% FLUSH 5 ML FLUSH IV FLUSH SCH ×2 (09:00→19:43)
[2016-05-24] MEDS: CEFEPIME INJ 2,000 MG in SODIUM CHLORIDE 0.9% INJ 100 ML IV SCH ×2 (09:00→19:43)
--- NOTE | 2016-05-24 11:04 | HHI.CCPN ---
Subjective Remarks/Hospital Course 61-year-old AA male. Date of admission 05/05/2016. Date of consultation 2016. Past medical history includes hypertensive heart disease, hypertension, diabetes mellitus type 2 and spinal stenosis. He presented to [facility] today with history of acute onset of diaphoresis, chest pain and syncope. Her documentation, Chest pain was 7 out of 10 without radiation. Later in the hospital physician, patient did have ST elevation anterior septal leads. I he had a cardiac catheterization in 2009 which revealed moderate coronary disease which documented 50-60% stenosis in the LAD diagonals 1 and 2. Recommended medical management at that time. Dr. Marcano was notified and proceed to the cardiac catheter lab. Patient sees heparin and one aspirin prior to cardiac catheterization. During heart catheterization,, patient became hypertensive, tachypneic, hypoxic and agitated including abdominal pain with nausea and vomiting. Patient was intubated by Dr. Simon and dispensed transferred to room 505a. Currently hemodynamic stable on a propofol drip. 05/06: Patient required additional sedation overnight. Was moving all 4 extremity spontaneously and strongly. Potassium is replaced overnight along with magnesium. This afternoon approximate 4 PM, patient went into a sinus bradycardia in the 40s. RN cannot locate pulse and possibly went into a PEA arrest. Patient received CPR for approximately 2 minutes. ROSC return immediately. Received 1 mg of epinephrine IV. Blood pressure was 240 systolic. Saturations were above 90% the entire time. Dr. Marcano was made aware. No new recommendations at this time. Electrolytes currently pending. Patient is currently hemodynamic stable and an arterial line/left radial has been placed 05/07: no improvement in delirium or mental status. spiking low grade fevers. 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 CT surgery consulted and declined to operate here: he will need referral once stabilized. fio2 requirements still high. CT chest also with evidence of bibasilar consolidation which may be aspiration pneumonitis vs. pneumonia now that we are 48h out from initial presentation and now spiking fevers. 05/08: delirium persists. continues to spike fevers. jolly cultured yesterday without results yet. holding sedation today. 05/09: delirium slightly improved. waking up on SAT, weakly following commands. cultures still NGTD. hypoxia slightly improved. 05/10: delirium improving. weakly following commands still. cultures still NGTD. fevers persist, although fever curve appears to be improving. hypoxia continues to improve. still remains very critically ill. 05/11: Tmax 99.9. Currently 99.1. Tolerating tube feeding. One bowel movement. Continues to have difficulty weaning ventilator. 05/12: Currently afebrile. Tolerating tube feeding. Positive BM. Increased FiO2 from 45-60%. +1 L. Arousable on sedation vacation and weakly follows commands. 05/13: Remains intubated, sedated. FiO2 now reduced to 45% (was 55% today am). Start weaning trials after starting Precedex. To control BP May use Cardene, given anomalous RCA 05/14: Extubated yesterday, remained on BiPAP overnight. Intermittently agitated. Following commands to me today, while on BiPAP. Remains on Cardene infusion for uncontrolled hypertension. Urine output 4.7 L in 24 hours 05/15: On 3 L nasal cannula. Fever trending down, breathing more comfortably. Able to communicate. Discussed with Dr. Marcano. Dr. Pendleton will be available tomorrow, will probably need transfer to [facility] for RCA unroofing 05/16: Acutely hypotensive overnight with tachycardia. MAP was 55 with greater than 130s. Received 3.5 L of normal saline bolus with improvement in blood pressure and heart rate. Lethargic on BiPAP. ABG pending, HB dropped from 10.9 to 7.8. No obvious source of bleeding. STAT 2U PRBC. STAT CT head and CT abd pelvis. R/O ICH or RP bleed. Patient received only 5mg Nicci at 2100 yesterday, no other sedation. Last dose of Lovenox was at 211, held now 05/17: Developed Hemorrhagic shock from large retroperitoneal hemorrhage night to 05/15/16. Stabilized after 3 units of PRBC and protamine. Hemoglobin 8.7 today. Remain encephalopathy and unresponsive yesterday. MRI 05/16/16 shows small punctate white matter infarcts, bilateral basal ganglia infarcts. Urology consult pending. Antiplatelet drugs on hold. Now with anuria from ATN secondary to shock. Nephrology consult pending 05/18: Developed sudden onset bradycardia in 40s, with acute hypotension yesterday evening around 5 PM. ACLS protocol initiated (did not arrest or lose pulse). Received multiple epinephrine, bicarbonate calcium and fluid boluses. Patient was placed on dopamine 20 mics per KG per minute, Levophed 20 mics per KG per minute, epinephrine 2.5 mics per minute and eventually stabilized with systolic blood pressure reading 120s. Hemoglobin on ABG was 7 and emergently transfused 3 units PRBC and 2 units FFP. Lab hemoglobin came back at 6.8. Patient also was profoundly acidemic with pH of 7.16. Patient received total 3 A of bicarbonate and bicarbonate infusion was started, minute ventilation was also increased. 05/19: MAXIMUM TEMPERATURE 100.3. Currently 99.5. No bowel movement. Tube feeds were restarted. FiO2 50%. PEEP at 8. 05/20: MAXIMUM TEMPERATURE 100.9. Positive BM. Tube feeds were restarted today. PT plateau. FiO2 down to 85%. Semiemergent bronchoscopy yesterday for right upper lobe airway obstruction. Resolved 05/21: MAXIMUM TEMPERATURE 100.7. Currently 99.6. Somewhat tachycardic. 2 bowel movements overnight. Tolerating tube feeds at 30 cc an hour. Had episode of emesis overnight. 05/22: Remains sedated, orally intubated on mechanical ventilation. 05/23: Remains sedated, orally intubated on mechanical ventilation. Dialyzed yesterday. 05/24: Remains sedated, orally intubated on mechanical ventilation. Tolerating tube feeds. Awaiting dialysis Objective Vital Signs Date Time Temp Pulse Resp B/P Pulse Ox O2 Delivery O2 Flow Rate FiO2 05/24/16 07:24 95 40 05/24/16 06:00 117 05/24/16 04:00 100.0 20 165/95 143/85 Intake and Output 05/23/16 05/23/16 05/24/16 08:00 16:00 00:00 Intake Total 1020 ml 910 ml 2595 ml Output Total 25 ml 486 ml 60 ml Balance 995 ml 424 ml 2535 ml Result Diagram: 05/23/16 0545 05/23/16 0545 Imaging Last Impressions Chest X-Ray 05/21/16 0000 Signed Impressions: Service Date/Time: Saturday, May 21, 2016 03:03 - CONCLUSION: Stable chest x-ray with likely bilateral pleural effusions with associated volume loss and/ or airspace consolidation. Low Narvaez MD Lower Extremity Ultrasound 05/18/16 0000 Signed Impressions: Service Date/Time: May 13:17 - CONCLUSION: Nonocclusive thrombus in the right posterior tibial vein. Remaining veins are otherwise patent. Carlitos Aguirre MD Head CT 05/16/16 0000 Signed Impressions: Service Date/Time: Monday, May 16, 2016 08:30 - CONCLUSION: Suspected bilateral basal ganglia calcifications are unchanged. No evidence of hemorrhage, edema, mass or mass effect. Stephen Quintanilla MD Brain MRI 05/16/16 0000 Signed Impressions: Service Date/Time: Monday, May 16, 2016 15:46 - CONCLUSION: 1. Small punctate areas of white matter infarction without cortical extension or hemorrhage. There is no significant mass effect. 2. Bilateral basal ganglia infarcts measuring 1 cm Bobby Lamas MD Abdomen/Pelvis CT 05/16/16 0000 Signed Impressions: Service Date/Time: Monday, May 16, 2016 08:39 - CONCLUSION: There are large areas of hemorrhage including the left retroperitoneum and psoas muscle, within the mesentery and a smaller area in the right psoas muscle. They don't appear to be related to the abdominal aorta or the internal iliac arteries. There is a small focal collection hemorrhage adjacent to the left external iliac artery as it enters the pelvis, but I don't believe that is related to the large amount of hemorrhage seen elsewhere. The areas of hemorrhage are large and multi-focal. Stephen Quintanilla MD Upper Extremity Ultrasound 05/10/16 0000 Signed Impressions: Service Date/Time: Tuesday, May 10, 2016 09:44 - CONCLUSION: Occlusive thrombus in the right cephalic vein. Otherwise negative Shahid Sin MD CT Angiography 05/06/16 0000 Signed Impressions: Service Date/Time: Saturday, May 07, 2016 00:04 - CONCLUSION: 1. Lobar consolidation bilaterally in the lower lobes. 2. Negative for pulmonary embolism. Michael Colbert MD Objective Remarks GENERAL: 61-year-old AA male, morbidly obese, intubated, critically ill SKIN: Warm and dry. No rash HEAD: Atraumatic. Normocephalic. EYES: Pupils equal and round around 2-3 mm bilaterally and slightly reactive. No scleral icterus. No injection or drainage. ENT: No nasal bleeding or discharge. Orotracheally intubated NECK: Trachea midline. JVD difficult to assess due to body habitus. Left IJ triple-lumen, right IJ Vas-Cath CARDIOVASCULAR: Distant due to body habitus. Regular rate and rhythm. S1, S2. Without murmur RESPIRATORY: Diminished breath sounds bilaterally due to body habitus. Breath sounds equal bilaterally. On ACV GASTROINTESTINAL: Abdomen obese, non-tender, protuberant, distended. no guarding. MUSCULOSKELETAL: Extremities without significant peripheral edema. Right femoral arterial line NEUROLOGICAL: Patient is encephalopathic, off sedation since morning of 05/23. Pupils are sluggishly reactive. Slight bilateral lower extremity withdrawal to pain A/P Assessment and Plan Neuro/Psych: Bilateral basal ganglia infarcts, small punctate white matter infarcts on MRI Acute toxic metabolic encephalopathy Versed/ Fentanyl for sedation/analgesia while intubated if needed. Goal of RASS -2 Daily sedation vacation Neurology consulted Dr. Felix MRI of the brain done 05/16/16 shows small punctate white matter infarcts, bilateral basal ganglia infarcts Off Seroquel and Haldol due to nonsustained V. tach Head CT 05/08, 05/16: negative acute. EEG 05/12 revealed generalized slowing right greater than left. No epileptiform activity. EEG 05/16: No seizure, severe encephalopathy. CV: Hemorrhagic shock due to left retroperitoneal hemorrhage-shock resolved Severe bradycardia and hypotension 05/17/16 most likely secondary to recurrent bleed Aberrant RCA off LCC Nonsustained V. tach single episode Diastolic heart failure Coronary artery disease Nonischemic cardiomyopathy secondary to hypertensive heart disease Hypertensive emergency On 05/17/16: Developed sudden onset bradycardia in 40s, with acute hypotension around 5 PM. ACLS protocol initiated received multiple epinephrine, bicarbonate calcium and fluid boluses. Placed on dopamine 20 mics per KG per minute, Levophed 20 mics per KG per minute, epinephrine 2.5 mics per minute and eventually stabilized with systolic blood pressure reading 120s. Hemoglobin came back at 6.8-3U prbc and 2U FFP given . Patient also was profoundly acidemic with pH of 7.16, received total 3 A of bicarbonate and bicarbonate infusion was started, minute ventilation was also increased. On 05/16/16 patient received 4 L normal saline boluses, 3 units PRBC Currently off of Levophed Off all antihypertensives and beta blockers Status post cardiac catheterization by Dr. Moy. No intervention performed. Known coronary artery artery disease to the first and second diagonals the LAD. Aberrant RCA off left coronary cups. Transfer to fo RCA unroofing once clinically stable Aspirin 81 mg on hold due to RP hemorrhage. (Plavix DC d 05/15/[address] Marcano in anticipation of probable unroofing surgery) Hold Lipitor 20 mg a night. Hold Procardia XL 90 mg,metoprolol 25 mg by mouth every 8 hours, clonidine 0.2 mg by mouth every 8 hours ALL held due to hypotension shock Holding Lasix 20 mg po BID. On dialysis for fluid removal. (Holding home medications of hydrochlorothiazide 25 mg daily, spironolactone 50 mg twice a day) Pulm: Acute hypoxemic respiratory failure-extubated 05/13/16, re intubated 05/16/16 for airway protection Likely underlying STU Right upper lobe mucus plugging Extubated 05/13/16. Reintubated 05/16/16 for airway protection due to severe encephalopathy daily C Pap trials as tolerated Chest x-ray shows new infiltrate right upper lobe ACV 20/600/PEEP decreased to10/FiO2 decreased to 45% Ventilator bundle Bronchodilator therapy every 4 hours and as needed. GI: Acute large left retroperitoneal hemorrhage Hypoalbuminemia Constipation- resolved. Continue Nepro at 50 cc an hour Supportive care with blood transfusion and correction of coagulopathy Continue Protonix for GI prophylaxis Colace/Senokot twice a day for bowel regimen, /Renal: Acute kidney failure due to ATN Anuria Chaudhry for accurate I's and O's in a critically ill patient Nephrology consulted, HD started 05/17/16 Dialyzed on 05/22 Endo: Diabetes mellitus type 2 Hyperglycemia Sliding-scale insulin Accu-Cheks to maintain euglycemia. Medium regimen every 6 hours Heme: Acute blood loss anemia with shock Large left retroperitoneal hemorrhage Right cephalic superficial thrombus/right PT DVT Normocytic anemia Leukocytosis Transfused 3 units PRBC stat on 05/16/16 Transfused 3 units PRBC and 2 units FFP Transfuse 1 unit PRBCs 05/19. Therapeutic Lovenox discontinued, aspirin placed on hold 75 mg IV protamine slow infusion (D/W with Dr. grimes) on 05/16/16. If patient continues to bleed consult IR for possible embolization Hematology consulted, recommends against anticoagulation and IVC filter CBC daily. Monitor trends. No active bleeding. Was on Lovenox 150 mg subcutaneous twice a day-DCd 05/16/16 ID: Aspiration pneumonia/Enterobacter aerogenes in sputum --05/18 Sputum culture with Enterobacter. ID changed antibiotics from meropenem, micafungin to cefepime and Flagyl. Off vancomycin Pertinent cultures 05/07 - blood cultures 2 - negative 05/08 - sputum - negative 05/08 - urine - negative 05/08 - blood cultures - negative 05/13 - blood cx negative 05/13 - urine cx negative 05/16 - sputum Enterobacter aerogenes 05/16 - urine neg 131 - blood cultures neg MSK: History of spinal stenosis/laminectomy/left total knee replacement and left ring finger amputation PT evaluate and treat Access - Left IJ CVL 05/17. Right IJ venous catheter 05/17. Right femoral art line 05/17 Prophylaxis - GI - Protonix - DVT -DCd Lovenox. SCD on L leg - Check venous doppler if clinically indicated on 05/23 I D/W Dr. Marcano, D/W patient's at bedside and updated re plan of care and she voiced understanding. Critical Care: The total critical care time was 45 minutes. Time to perform other separately billable procedures was not included in the critical care time. Sj Mariee MD May 24, 2016 11:04
--- NOTE | 2016-05-24 12:33 | PD.ONC.PN ---
Subjective Subjective Remarks Tmax 100.3 overnight. Remains intubated, sedated. Objective Data Date Time Temp Pulse Resp B/P Pulse Ox O2 Delivery O2 Flow Rate FiO2 05/24/16 11:35 100 40 05/24/16 07:24 95 40 05/24/16 06:00 117 05/24/16 04:38 99 40 05/24/16 04:00 118 05/24/16 04:00 40 05/24/16 04:00 100.0 117 20 165/95 97 143/85 05/24/16 02:00 120 05/24/16 00:31 94 40 05/24/16 00:00 116 05/24/16 00:00 100.3 114 20 165/95 94 168/87 05/24/16 00:00 40 05/23/16 22:00 124 05/23/16 20:00 117 05/23/16 20:00 40 05/23/16 20:00 100.0 117 20 167/86 93 155/110 05/23/16 19:36 96 40 05/23/16 18:00 123 05/23/16 16:50 95 40 05/23/16 16:00 98.0 110 20 144/94 94 145/99 05/23/16 16:00 122 05/23/16 16:00 55 05/23/16 14:00 123 05/24/16 05/24/16 05/24/16 07:00 15:00 23:00 Intake Total 976 ml Output Total 40 ml Balance 936 ml Result Diagram: 05/23/16 0545 05/23/16 0545 Administered Medications Medications (Trade) Dose Ordered Sig/Isabelle Route PRN Reason Start Time Stop Time Status Last Admin Dose Admin IV Flush (NS Flush) 2 ml UNSCH PRN IV FLUSH FLUSH AFTER USING IV ACCESS 05/05/16 17:15 05/24/16 00:59 IV Flush (NS Flush) 2 ml BID IV FLUSH 05/05/16 21:00 05/24/16 09:00 Artificial Tears (Tears Naturale Opth Soln) 1 drop TID EACH EYE 05/05/16 18:00 05/24/16 09:00 Ondansetron HCl (Zofran Inj) 4 mg Q6H PRN IV NAUSEA OR VOMITING 05/05/16 17:15 05/21/16 20:27 Docusate Sodium (Colace) 100 mg BID PO 05/05/16 21:00 05/23/16 19:42 Miscellaneous Information 1 Q361D XX 05/05/16 17:15 05/05/16 17:15 Chlorhexidine Gluconate (Chlorhexidine 2% Cloth) Taper DAILY@04 TOP 05/06/16 04:00 05/02/17 03:59 05/22/16 04:00 Aspirin (Aspirin Chew) 81 mg DAILY CHEW 05/06/16 09:00 Hold 05/15/16 08:30 Atorvastatin Calcium (Lipitor) 20 mg DAILY PO 05/06/16 09:00 Hold 05/15/16 08:32 Sennosides (Senokot) 17.2 mg Q12H PO 05/06/16 18:00 05/24/16 04:08 Insulin Human Regular (NovoLIN R SUPPLEMENTAL SCALE) 1 Q6HR SQ 05/09/16 00:00 05/24/16 04:10 Metoprolol Tartrate (Lopressor) 25 mg Q8HR PO 05/13/16 22:00 Hold 05/15/16 14:44 Nifedipine (Procardia Xl) 90 mg DAILY PO 05/14/16 09:00 Hold 05/15/16 08:30 Furosemide (Lasix) 20 mg BID@09,18 PO 05/15/16 18:00 Hold 05/15/16 17:22 Chlorhexidine Gluconate 15 ml 15 ml BID@08,20 MT 05/16/16 20:00 05/24/16 08:00 Sodium Chloride 1,000 ml @ 0 mls/hr Q0M PRN IV For Prime & Rinse Back 05/17/16 12:13 05/17/16 12:27 Sodium Chloride (NS 1000 ml Inj) 1,000 ml @ 200 mls/hr Q5H PRN IV WITH DIALYSIS 05/17/16 12:13 05/17/16 12:28 IV Flush (NS Flush) 5 ml UNSCH PRN IVF WITH DIALYSIS 05/17/16 12:15 05/17/16 12:29 Heparin Sodium (Porcine) (Heparin Inj) UNSCH PRN .XX WITH DIALYSIS 05/17/16 12:15 05/22/16 16:57 Gentamicin Sulfate (Gentamicin (Dialysis) Inj) 20 mg UNSCH PRN IV WITH DIALYSIS 05/17/16 12:15 05/22/16 16:58 Epoetin Adonay 91291 units 10,000 units UNSCH PRN IV WITH DIALYSIS 05/17/16 12:15 05/22/16 16:57 Midazolam HCl 100 ml @ 0 mls/hr TITRATE IV 05/17/16 21:45 05/23/16 00:27 Norepinephrine Bitartrate 4 mg/ Sodium Chloride 250 ml @ 0 mls/hr TITRATE IV 05/18/16 07:00 05/19/16 17:18 Fentanyl Citrate (fentaNYL DRIP) 250 ml @ 0 mls/hr TITRATE IV 05/18/16 20:00 05/23/16 00:27 Metronidazole 500 mg 500 mg Q8HR PO 05/22/16 09:00 05/24/16 04:08 Cefepime HCl/ Sodium Chloride (Maxipime Inj/NS Inj) 100 ml @ 200 mls/hr Q12H IV 05/22/16 21:00 05/24/16 09:00 Labetalol HCl (Trandate Inj) 10 mg Q1HR PRN IV PUSH SBP>160, DBP>90, HR>65 05/23/16 21:15 05/24/16 11:01 Nifedipine (Procardia) 10 mg Q8HR PO 05/23/16 22:00 05/24/16 04:09 Metoprolol Tartrate (Lopressor) 25 mg Q8HR PO 05/23/16 22:00 05/24/16 04:08 Hydralazine HCl (Apresoline Inj) 20 mg Q4H PRN IV PUSH SBP>160, DBP>90 05/23/16 21:15 05/24/16 00:59 Objective Remarks GENERAL: Intubated sedated chronically ill appearing male SKIN: Warm and dry. No oozing from lines. HEAD: Normocephalic. NECK: Supple, trachea midline. CARDIOVASCULAR: +S1/S2. RESPIRATORY: anterior ye clear. on mechanical ventilation GASTROINTESTINAL: Abdomen distended. EXTREMITIES: Generalized edema. NEUROLOGICAL: intubated, sedated. Assessment/Plan Problem List: (1) Retroperitoneal bleed Status: Acute Plan: -- Lg areas of hemorrhage involving the left peritoneum psoas muscle, the mesentery as well as area adjacent to the left external iliac artery -- Daily CBC (2) Anemia Status: Acute Plan: -- Transfuse to keep Hgb greater than 8. -- Due to intra-abdominal bleeding. (3) Superficial thrombosis of right lower extremity Status: Acute Plan: -- US on 05/18 shows nonocclusive clot to R posterior tibial vein -- No IVC filter since this is superficial. -- No anticoagulation due to high risk of bleeding. Assessment 62 y/o male who presented to the ED with chest pain and was found to be in acute STEMI. Plan 1. monitor CBC-await H/H today 2. supportive care Attending Statement The exam, history, and the medical decision-making described in the above note were completed with the assistance of the mid-level provider. I reviewed and agree with the findings presented. I attest that I had a [id number] encounter with the patient on the same day, and personally performed and documented my assessment and findings in the medical record. Hb stable. LE swelling stable. Repeat doppler U/S in am to make sure thrombus is stable. Problem Qualifiers (1) Anemia: Cindy Perrin May 24, 2016 12:32 Carmelo Veras MD May 24, 2016 21:50
[2016-05-24] MEDS: SODIUM CHLOR 0.9% 1000 ML INJ 1,000 ML IV PRN (13:07)
[2016-05-24] MEDS: HEPARIN SODIUM - IV 10,000 UNITS/10 ML VIAL PRN (13:08)
[2016-05-24] MEDS: EPOETIN ALFA 10,000 UNITS/ML VIAL IV PRN (13:08)
[2016-05-24] MEDS: GENTAMICIN SULFATE (DIALYSIS USE ONLY) 20 MG/2 ML VIAL IV PRN (13:08)
--- NOTE | 2016-05-24 14:52 | PD.CARD.PN ---
Subjective Subjective Remarks No events over night Objective Medications Current Medications Medications (Trade) Dose Ordered Sig/Isabelle Route Start Time Stop Time Status Last Admin (NS Flush) 2 ml UNSCH PRN IV FLUSH 05/05/16 17:15 05/24/16 00:59 (NS Flush) 2 ml BID IV FLUSH 05/05/16 21:00 05/24/16 09:00 (Tears Naturale Opth Soln) 1 drop TID EACH EYE 05/05/16 18:00 05/24/16 13:00 (Zofran Inj) 4 mg Q6H PRN IV 05/05/16 17:15 05/21/16 20:27 (Colace) 100 mg BID PO 05/05/16 21:00 05/23/16 19:42 Miscellaneous Information 1 Q361D XX 05/05/16 17:15 05/05/16 17:15 (Chlorhexidine 2% Cloth) Taper DAILY@04 TOP 05/06/16 04:00 05/02/17 03:59 05/22/16 04:00 (Chlorhexidine 2% Cloth) 3 pack UNSCH PRN TOP 05/05/16 17:15 (Glucagon Inj) 1 mg UNSCH PRN OTHER 05/05/16 17:15 (Aspirin Chew) 81 mg DAILY CHEW 05/06/16 09:00 Hold 05/15/16 08:30 (Lipitor) 20 mg DAILY PO 05/06/16 09:00 Hold 05/15/16 08:32 (Senokot) 17.2 mg Q12H PO 05/06/16 18:00 05/24/16 04:08 (D50w (Vial) Inj) 25 ml UNSCH PRN IV PUSH 05/08/16 21:00 (NovoLIN R SUPPLEMENTAL SCALE) 1 Q6HR SQ 05/09/16 00:00 05/24/16 04:10 (Pill Splitter) 1 ea UNSCH PRN OTHER 05/11/16 15:15 (Lopressor) 25 mg Q8HR PO 05/13/16 22:00 Hold 05/15/16 14:44 (Procardia Xl) 90 mg DAILY PO 05/14/16 09:00 Hold 05/15/16 08:30 (Lasix) 20 mg BID@,18 PO 05/15/16 18:00 Hold 05/15/16 17:22 Chlorhexidine Gluconate 15 ml 15 ml BID@08,20 MT 05/16/16 20:00 05/24/16 08:00 (NS 1000 ml Inj) 1,000 ml @ 0 mls/hr Q0M PRN IV 05/17/16 12:13 05/24/16 13:07 Heparin Sodium (Porcine) 8000 units 8,000 units UNSCH PRN IVF 05/17/16 12:15 Sodium Chloride 1,000 ml @ 200 mls/hr Q5H PRN IV 05/17/16 12:13 05/17/16 12:28 (NS 1000 ml Inj) 1,000 ml @ 0 mls/hr Q0M PRN IV 05/17/16 12:13 (Mannitol Inj) 12.5 gm UNSCH PRN IV 05/17/16 12:15 (Albumin 25% Inj) 25 gm UNSCH PRN IV 05/17/16 12:15 (NS Flush) 5 ml UNSCH PRN IVF 05/17/16 12:15 05/17/16 12:29 (Heparin Inj) UNSCH PRN .XX 05/17/16 12:15 05/24/16 13:08 (Gentamicin (Dialysis) Inj) 20 mg UNSCH PRN IV 05/17/16 12:15 05/24/16 13:08 (Zofran Inj) 4 mg UNSCH PRN IV 05/17/16 12:15 (Benadryl) 25 mg UNSCH PRN PO 05/17/16 12:15 (Gelfoam 12 Mm/7 Mm Top) 1 foam UNSCH PRN TOP 05/17/16 12:15 (Epogen Inj) 10,000 units UNSCH PRN IV 05/17/16 12:15 05/24/16 13:08 Terbutaline Sulfate 1 mg 1 mg UNSCH PRN SQ 05/17/16 13:45 Midazolam HCl 100 ml @ 0 mls/hr TITRATE IV 05/17/16 21:45 05/23/16 00:27 Norepinephrine Bitartrate 4 mg/ Sodium Chloride 250 ml @ 0 mls/hr TITRATE IV 05/18/16 07:00 05/19/16 17:18 (fentaNYL DRIP) 250 ml @ 0 mls/hr TITRATE IV 05/18/16 20:00 05/23/16 00:27 Metronidazole 500 mg 500 mg Q8HR PO 05/22/16 09:00 05/24/16 04:08 (Maxipime Inj/NS Inj) 100 ml @ 200 mls/hr Q12H IV 05/22/16 21:00 05/24/16 09:00 (Trandate Inj) 10 mg Q1HR PRN IV PUSH 05/23/16 21:15 05/24/16 11:01 (Procardia) 10 mg Q8HR PO 05/23/16 22:00 05/24/16 04:09 (Nitroglycerin 2% Oint) 2 inch Q6HR PRN TOPICAL 05/23/16 22:00 (Lopressor) 25 mg Q8HR PO 05/23/16 22:00 05/24/16 04:08 (Apresoline Inj) 20 mg Q4H PRN IV PUSH 05/23/16 21:15 05/24/16 00:59 Vital Signs / I&O Vital Signs Date Time Temp Pulse Resp B/P Pulse Ox O2 Delivery O2 Flow Rate FiO2 05/24/16 11:35 100 40 05/24/16 08:00 40 05/24/16 08:00 116 05/24/16 07:24 95 40 05/24/16 06:00 117 05/24/16 04:38 99 40 05/24/16 04:00 118 05/24/16 04:00 40 05/24/16 04:00 100.0 117 20 165/95 97 143/85 05/24/16 02:00 120 05/24/16 00:31 94 40 05/24/16 00:00 116 05/24/16 00:00 100.3 114 20 165/95 94 168/87 05/24/16 00:00 40 05/23/16 22:00 124 05/23/16 20:00 117 05/23/16 20:00 40 05/23/16 20:00 100.0 117 20 167/86 93 155/110 05/23/16 19:36 96 40 05/23/16 18:00 123 05/23/16 16:50 95 40 05/23/16 16:00 98.0 110 20 144/94 94 145/99 05/23/16 16:00 122 05/23/16 16:00 55 I/O 05/23/16 05/23/16 05/23/16 05/24/16 05/24/16 05/24/16 07:00 15:00 23:00 07:00 15:00 23:00 Intake Total 1020 ml 910 ml 2595 ml 976 ml Output Total 25 ml 486 ml 60 ml 40 ml Balance 995 ml 424 ml 2535 ml 936 ml Intake Oral 0 ml IV Total 700 ml 650 ml 1639 ml 517 ml Tube Feeding 200 ml 200 ml 836 ml 339 ml Other 120 ml 60 ml 120 ml 120 ml Output Urine Total 25 ml 100 ml 60 ml 40 ml Peritoneal Fluid 386 ml # Bowel Movements 0 0 1 Physical Exam GENERAL: Sedated on the vent SKIN: Warm and dry. HEAD: Atraumatic. Normocephalic. EYES: Pupils equal and round. No scleral icterus. No injection or drainage. ENT: No nasal bleeding or discharge. Mucous membranes pink and moist. NECK: Trachea midline. No JVD. CARDIOVASCULAR: Regular rhythm. Tachycardic RESPIRATORY: No accessory muscle use. Decreased breath sounds bilaterally GASTROINTESTINAL: Abdomen soft, non-tender, nondistended. Hepatic and splenic margins not palpable. MUSCULOSKELETAL: Extremities without clubbing, cyanosis, or edema. No obvious deformities. 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 (2) Hypertensive emergency (3) Acute hypoxemic respiratory failure (4) Diabetes mellitus (5) CAD (coronary artery disease) (6) NSVT (nonsustained ventricular tachycardia) (7) Retroperitoneal bleed Assessment and Plan 1) Cardiac cath showing mild to moderate CAD 2) Anomalous RCA off Left Coronary Cusp, will need CTA of coronaries to define pathway of RCA between PA and Aorta especially with chest pain/pre-syncopal episodes... but CT done shows that RCA most likely takes an intra-arterial route , discussed with radiology 3) Occlusive thrombus noted in right PT and right cephalic veins 4) Will discuss with CT Surgery about possible transfer for unroofing of RCA once stable and neurologic status confirmed 5) Retroperitoneal bleeds most likely from ASA/Plavix/Lovenox, not felt to be due to cardiac cath as it's left-sided, Lovenox held... watch H/H... Hgb currently stable 6) ATN from hypotension, started on HD 7) Pressors off, blood pressure stable, continue to wean vent FIO2 as possible 8) Off of all cardiac medications at this time, due to previous hemorrhagic shock 9) Awaiting neurologic status Problem Qualifiers (1) Diabetes mellitus: Qualified Code: E13.8 - Diabetes mellitus of other type with complication, unspecified long-term insulin use status (2) CAD (coronary artery disease): Qualified Code: I25.10 - Coronary artery disease, angina presence unspecified, unspecified vessel or lesion type, unspecified whether [place] or transplanted heart Maurizio Marcano DO May 24, 2016 14:52
--- NOTE | 2016-05-24 16:21 | HHI.NPPN ---
Subjective History of Present Illness 61 year old with ARF, CHF, Respiratory failure Additional Remarks Patient remain intubated and sedated, seen during HD. Objective Data Data 05/23/16 05/24/16 19:00 07:00 Intake Total 910 ml 3571 ml Output Total 486 ml 100 ml Balance 424 ml 3471 ml Intake Oral 0 ml IV Total 650 ml 2156 ml Tube Feeding 200 ml 1175 ml Other 60 ml 240 ml Output Urine Total 100 ml 100 ml Peritoneal Fluid 386 ml # Bowel Movements 1 Vital Signs Date Time Temp Pulse Resp B/P Pulse Ox O2 Delivery O2 Flow Rate FiO2 05/24/16 15:59 100 40 05/24/16 14:00 92 05/24/16 12:00 98.4 118 20 153/101 97 143/85 05/24/16 12:00 116 05/24/16 12:00 40 05/24/16 11:35 100 40 05/24/16 10:00 119 05/24/16 08:00 40 05/24/16 08:00 98.7 116 20 168/97 97 143/85 05/24/16 08:00 116 05/24/16 07:24 95 40 05/24/16 06:00 117 05/24/16 04:38 99 40 05/24/16 04:00 118 05/24/16 04:00 40 05/24/16 04:00 100.0 117 20 165/95 97 143/85 05/24/16 02:00 120 05/24/16 00:31 94 40 05/24/16 00:00 116 05/24/16 00:00 100.3 114 20 165/95 94 168/87 05/24/16 00:00 40 05/23/16 22:00 124 05/23/16 20:00 117 05/23/16 20:00 40 05/23/16 20:00 100.0 117 20 167/86 93 155/110 05/23/16 19:36 96 40 05/23/16 18:00 123 05/23/16 16:50 95 40 -: 05/23/16 0545 05/23/16 0545 Physical Exam General Appearance: Obese Appearance Remarks Intubated and sedated. Neck Neck Exam: Neck Supple Pulmonary Resp Exam: Rhonchi, Decreased Bases, Diminished Breath Sounds, Poor Inspiratory Effort Cardiology CV Exam: Tachycardia Gastrointestinal/Abdomen GI Exam: Soft, Non-Tender, Distended Extremeties Extremities Exam: Moderate Edema, Pitting Edema, Dependent Edema Neurologic Neuro Exam: Sedated Assessment/Plan Problem List: (1) Acute renal failure Plan: Patient has oliguric acute renal failure and remains essentially anuric. Continue MWF HD for now. BUN and Creatinine remain elevated. HD now, removing 5 liters. BP[ was elevated and tolerating so far. No signs of renal recovery. Weaning as per CCM. 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 Plan: Cardiology following (4) Acute hypoxemic respiratory failure Plan: On ventilator (5) Hypertensive emergency Plan: BP improved (6) Diabetes mellitus Plan: Continue monitor blood glucose (7) CAD (coronary artery disease) Plan: Presented with STEMI, follow with cardiology (8) Subsequent ST elevation (STEMI) myocardial infarction of anterior wall Plan: Planned transfer to when stable. No intervention performed here. Problem Qualifiers (1) Acute renal failure: Qualified Code: N17.0 - Acute renal failure with tubular necrosis (2) Diabetes mellitus: Qualified Code: E13.8 - Diabetes mellitus of other type with complication, unspecified group home insulin use status (3) CAD (coronary artery disease): Qualified Code: I25.10 - Coronary artery disease, angina presence unspecified, unspecified vessel or lesion type, unspecified whether [place] or transplanted heart Renee Bhat MD May 24, 2016 16:21
[2016-05-24 21:59] LABS: AUTOMATED NEUTROPHIL # 11.5 TH/MM3 (1.8-7.7); BASOPHIL # 0.1 TH/MM3 (0-0.2); BASOPHIL % 0.5 % (0.0-2.0); EOSINOPHIL # 0.3 TH/MM3 (0-0.4); HEMATOCRIT 28.4 % (39.0-51.0); LYMPH % 5.6 % (9.0-44.0); LYMPHOCYTE # 0.8 TH/MM3 (1.0-4.8); MEAN CELL VOLUME 86.9 FL (80.0-100.0); MEAN CORPUSCULAR HEMOGLOBIN 28.8 PG (27.0-34.0); MEAN CORPUSCULAR HGB CONC 33.2 % (32.0-36.0); MONO % 11.3 % (0.0-8.0); NEUT % 80.6 % (16.0-70.0); PLATELET COUNT 313 TH/MM3 (150-450); RED BLOOD COUNT 3.27 MIL/MM3 (4.50-5.90); RED CELL DISTRIBUTION WIDTH 16.4 % (11.6-17.2); WHITE BLOOD COUNT 14.3 TH/MM3 (4.0-11.0)
[2016-05-24 22:02] LABS: HEMO FLAGS AUTO DIFF
[2016-05-24 22:25] LABS: BICARBONATE 25.6 MEQ/L (21.0-32.0); CALCIUM-PROTEIN CORRECTED 7.9 MG/DL (8.5-10.1); TOTAL BILIRUBIN ADULT 0.9 MG/DL (0.2-1.0)
[2016-05-24 22:28] LABS: POTASSIUM 4.1 MEQ/L (3.5-5.1)
[2016-05-24 22:44] LABS: BANDS 4 % (0-6); EOSINOPHILS 1 % (0-4); METAMYELOCYTES 2 % (0-1); MYELOCYTES 1 % (0-0); NEUTROPHIL # MANUAL DIFF 12.3 TH/MM3 (1.8-7.7); POLYS (SEG NEUTROPHILS) 79 % (16-70); WBC DIFF SAMPLE 100
[2016-05-24 22:45] LABS: ACANTHOCYTES OCC (NORMAL); OVALOCYTES 1+ (NORMAL); PLATELET ESTIMATE SMEAR NORMAL (NORMAL); PLATELET MORPHOLOGY NORMAL (NORMAL); SCAN/DIFF FINAL DIFF MANUAL
[2016-05-25] VITALS (20 sets, daily range): BP systolic 118–170; BP diastolic 66–109; PULSE 84–127; RESP 20–28; TEMP 98.7–99.9; O2SAT 98–100
[2016-05-25] MEDS: LABETALOL HCL 100 MG/20 ML VIAL IV PUSH PRN ×2 (00:49→02:43)
[2016-05-25] MEDS: CHLORHEXIDINE GLUCONATE 2 % 1 PACK (2 CLOTHS) TOP SCH (02:43)
[2016-05-25] MEDS: RESP: SODIUM CHLORIDE 3% 4 ML NEB NEB SCH ×6 (04:04→22:54)
[2016-05-25] MEDS: RESP: ALBUTEROL 2.5 MG/IPRATROPIUM 0.5 MG NEB (SCH) NEB ×6 (04:04→22:54)
[2016-05-25] MEDS: NIFEdipine 10 MG CAP PO SCH ×3 (04:15→22:16)
[2016-05-25] MEDS: SENNOSIDES 8.6 MG TAB PO SCH ×2 (04:15→17:04)
[2016-05-25] MEDS: metroNIDAZOLE 500 MG TAB PO SCH ×3 (04:15→21:55)
[2016-05-25] MEDS: METOPROLOL TARTRATE 25 MG TAB PO SCH ×3 (04:15→22:16)
[2016-05-25] MEDS: INSULIN NovoLIN REGULAR SUPPLEMENTAL SCALE SQ SCH ×3 (04:16→18:00)
[2016-05-25] MEDS: CHLORHEXIDINE 0.12% (ORAL KIT) 15 ML CUP MT SCH ×2 (08:00→20:00)
[2016-05-25 08:47] LABS: AUTOMATED NEUTROPHIL # 12.4 TH/MM3 (1.8-7.7); BASOPHIL # 0.1 TH/MM3 (0-0.2); BASOPHIL % 0.5 % (0.0-2.0); EOSINOPHIL # 0.3 TH/MM3 (0-0.4); HEMATOCRIT 30.5 % (39.0-51.0); LYMPH % 5.9 % (9.0-44.0); LYMPHOCYTE # 0.9 TH/MM3 (1.0-4.8); MEAN CELL VOLUME 87.9 FL (80.0-100.0); MEAN CORPUSCULAR HEMOGLOBIN 28.5 PG (27.0-34.0); MEAN CORPUSCULAR HGB CONC 32.4 % (32.0-36.0); MONO % 12.4 % (0.0-8.0); NEUT % 79.2 % (16.0-70.0); PLATELET COUNT 343 TH/MM3 (150-450); RED BLOOD COUNT 3.47 MIL/MM3 (4.50-5.90); RED CELL DISTRIBUTION WIDTH 16.4 % (11.6-17.2); WHITE BLOOD COUNT 15.7 TH/MM3 (4.0-11.0)
--- NOTE | 2016-05-25 08:48 | RADRPT ---
EXAM DATE/TIME: 05/25/2016 07:33 [facility] COMPARISON: CHEST SINGLE AP, May 22, 2016, 3:45. INDICATIONS: Evaluate for pneumonia MEDICAL HISTORY: Myocardial infarction. Congestive heart failure. Hypertension. Diabetes. SURGICAL HISTORY: Back surgery. Meniscus repair ENCOUNTER: Subsequent ACUITY: 3 weeks PAIN SCORE: Non-responsive. LOCATION: Bilateral chest FINDINGS: The endotracheal tube has its tip approximately 4 cm above the kendal. A nasogastric tube has its ti p below the diaphragm. A right internal jugular vas cath has its tip in the superior vena cava. A l eft internal jugular central line has its tip in the superior vena cava also. There is no pneumothor ax. The heart is enlarged. Mild pulmonary vascular congestion is noted. CONCLUSION: 1. Multiple tubes and lines are stable. 2. Cardiomegaly. 3. Mild pulmonary vascular congestion Yifan Chowdary MD on May 25, 2016 at 8:29 Board Certified Radiologist. This report was verified electronically.
[2016-05-25] MEDS: SODIUM CHLORIDE 0.9% FLUSH 5 ML FLUSH IV FLUSH SCH ×2 (09:00→21:54)
[2016-05-25] MEDS: DOCUSATE SODIUM 100 MG CAP PO SCH ×2 (09:00→21:54)
[2016-05-25] MEDS: CEFEPIME INJ 2,000 MG in SODIUM CHLORIDE 0.9% INJ 100 ML IV SCH ×2 (09:00→21:54)
[2016-05-25] MEDS: ARTIFICIAL TEARS OPTH SOLN 15 ML BTL EACH EYE SCH ×3 (09:00→17:04)
[2016-05-25 09:04] LABS: HEMO FLAGS AUTO DIFF
[2016-05-25 09:09] LABS: ALKALINE PHOSPHATASE 189 U/L (45-117); ALT (GPT) 230 U/L (12-78); ANION GAP 14 MEQ/L (5-15); AST (GOT) 197 U/L (15-37); BICARBONATE 24.2 MEQ/L (21.0-32.0); BLOOD UREA NITROGEN 122 MG/DL (7-18); CHLORIDE 102 MEQ/L (98-107); GLOMERULAR FILTRATION RATE 9 ML/MIN (>89); SODIUM (NA) 140 MEQ/L (136-145); TOTAL BILIRUBIN ADULT 0.8 MG/DL (0.2-1.0)
[2016-05-25 09:10] LABS: POTASSIUM 4.4 MEQ/L (3.5-5.1)
[2016-05-25 09:36] LABS: BANDS 8 % (0-6); BASOPHILS 1 % (0-2); EOSINOPHILS 2 % (0-4); MYELOCYTES 3 % (0-0); NEUTROPHIL # MANUAL DIFF 12.4 TH/MM3 (1.8-7.7); PLASMA CELLS 1 % (0-0); POLYS (SEG NEUTROPHILS) 68 % (16-70); WBC DIFF SAMPLE 100
[2016-05-25 09:38] LABS: KERATOCYTES OCC (NORMAL); PLATELET ESTIMATE SMEAR NORMAL (NORMAL); PLATELET MORPHOLOGY NORMAL (NORMAL); SCAN/DIFF FINAL DIFF MANUAL
--- NOTE | 2016-05-25 09:56 | RADRPT ---
EXAM DATE/TIME: 05/25/2016 08:56 [facility] COMPARISON: US ARM BILATERAL VENOUS DOPPLER, May 10, 2016, 9:44. INDICATIONS : Bilateral arm swelling. MEDICAL HISTORY : Myocardial infarction. Congestive heart failure. Hypertension. Diabetes. SURGICAL HISTORY : Back surgery. Meniscus fix. ENCOUNTER: Initial ACUITY: 1 day PAIN SCORE: Non-responsive LOCATION: Bilateral arms. FINDINGS: RIGHT UPPER EXTREMITY: There is occlusive thrombus in the right distal cephalic vein at the level of the mid forearm. No oth er vessels are patent and compressible. This includes the brachial, basilic, axillary and subclavian veins. LEFT UPPER EXTREMITY: There is nonocclusive thrombus in left mid and distal basilic vein CONCLUSION: 1. Occlusive thrombus in the right distal cephalic vein. 2. Nonocclusive thrombus in the left mid and distal basilic veins. Sammy Duran MD on May 25, 2016 at 9:53 Board Certified Radiologist. This report was verified electronically.
--- NOTE | 2016-05-25 11:08 | HHI.NPPN ---
Subjective History of Present Illness 61 year old with ARF, CHF, Respiratory failure Additional Remarks Patient remain intubated and sedated, and has high BP, clinically same. Objective Data Data 05/24/16 05/25/16 19:00 07:00 Intake Total 200 ml 2746 ml Output Total 5050 ml 150 ml Balance -4850 ml 2596 ml Intake Oral 0 ml IV Total 200 ml 1083 ml Tube Feeding 0 ml 1423 ml Other 0 ml 240 ml Output Urine Total 50 ml 150 ml Hemodialysis 5000 ml # Bowel Movements 0 2 Vital Signs Date Time Temp Pulse Resp B/P Pulse Ox O2 Delivery O2 Flow Rate FiO2 05/25/16 08:28 100 35 05/25/16 08:00 99.4 122 20 169/109 05/25/16 08:00 124 05/25/16 08:00 40 05/25/16 06:00 120 05/25/16 04:04 100 35 05/25/16 04:00 127 05/25/16 04:00 99.8 127 20 163/96 100 05/25/16 04:00 40 05/25/16 02:00 123 05/25/16 01:06 100 35 05/25/16 00:00 99.9 123 28 169/97 100 170/94 05/25/16 00:00 40 05/25/16 00:00 124 05/24/16 22:00 121 05/24/16 20:00 100 35 05/24/16 20:00 40 05/24/16 20:00 99.5 91 20 159/83 100 158/79 05/24/16 20:00 91 05/24/16 18:00 92 05/24/16 16:00 100.0 117 20 170/87 93 155/110 05/24/16 16:00 116 05/24/16 16:00 40 05/24/16 15:59 100 40 05/24/16 14:00 92 05/24/16 12:00 98.4 118 20 153/101 97 143/85 05/24/16 12:00 116 05/24/16 12:00 40 05/24/16 11:35 100 40 -: 05/25/16 0810 05/25/16 0810 Physical Exam General Appearance: Obese Appearance Remarks Intubated and sedated. Neck Neck Exam: Neck Supple Pulmonary Resp Exam: Rhonchi, Decreased Bases, Diminished Breath Sounds, Poor Inspiratory Effort Cardiology CV Exam: Tachycardia Gastrointestinal/Abdomen GI Exam: Soft, Non-Tender, Distended Extremeties Extremities Exam: Moderate Edema, Pitting Edema, Dependent Edema Neurologic Neuro Exam: Sedated Assessment/Plan Problem List: (1) Acute renal failure Plan: Patient has oliguric acute renal failure and remains essentially anuric. Continue MWF HD for now. BUN and Creatinine remain elevated. HD done yesterday and 5 liters removed. BP still remain elevated , will increase Nifedipine . Also start Labetalol instead on Metoprolol. HD will be in AM, remove fluid as tolerated. 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 Plan: Cardiology following (4) Acute hypoxemic respiratory failure Plan: On ventilator (5) Hypertensive emergency Plan: BP improved (6) Diabetes mellitus Plan: Continue monitor blood glucose (7) CAD (coronary artery disease) Plan: Presented with STEMI, follow with cardiology (8) Subsequent ST elevation (STEMI) myocardial infarction of anterior wall Plan: Planned transfer to when stable. No intervention performed here. Problem Qualifiers (1) Acute renal failure: Qualified Code: N17.0 - Acute renal failure with tubular necrosis (2) Diabetes mellitus: Qualified Code: E13.8 - Diabetes mellitus of other type with complication, unspecified oyst[place] insulin use status (3) CAD (coronary artery disease): Qualified Code: I25.10 - Coronary artery disease, angina presence unspecified, unspecified vessel or lesion type, unspecified whether [place] or transplanted heart Renee Bhat MD May 25, 2016 11:08
[2016-05-25] MEDS: LABETALOL HCL 200 MG TAB PO SCH ×2 (11:15→21:56)
--- NOTE | 2016-05-25 13:38 | PD.ONC.PN ---
Subjective Subjective Remarks Tmax 100F overnight. Patient remains intubated, has been off sedation and non- responsive per nurse. No bleeding. Objective Data Date Time Temp Pulse Resp B/P Pulse Ox O2 Delivery O2 Flow Rate FiO2 05/25/16 11:39 98 35 05/25/16 10:00 122 05/25/16 08:28 100 35 05/25/16 08:00 99.4 122 20 169/109 05/25/16 08:00 124 05/25/16 08:00 40 05/25/16 06:00 120 05/25/16 04:04 100 35 05/25/16 04:00 127 05/25/16 04:00 99.8 127 20 163/96 100 05/25/16 04:00 40 05/25/16 02:00 123 05/25/16 01:06 100 35 05/25/16 00:00 99.9 123 28 169/97 100 170/94 05/25/16 00:00 40 05/25/16 00:00 124 05/24/16 22:00 121 05/24/16 20:00 100 35 05/24/16 20:00 40 05/24/16 20:00 99.5 91 20 159/83 100 158/79 05/24/16 20:00 91 05/24/16 18:00 92 05/24/16 16:00 100.0 117 20 170/87 93 155/110 05/24/16 16:00 116 05/24/16 16:00 40 05/24/16 15:59 100 40 05/24/16 14:00 92 05/25/16 05/25/16 05/25/16 07:00 15:00 23:00 Intake Total 630 ml Output Total 70 ml Balance 560 ml Result Diagram: 05/25/16 0810 05/25/16 0810 Laboratory Results Laboratory Tests Test 05/24/16 05/25/16 20:55 08:10 White Blood Count 14.3 TH/MM3 15.7 TH/MM3 Red Blood Count 3.27 MIL/MM3 3.47 MIL/MM3 Hemoglobin 9.4 GM/DL 9.9 GM/DL Hematocrit 28.4 % 30.5 % Mean Corpuscular Volume 86.9 FL 87.9 FL Mean Corpuscular Hemoglobin 28.8 PG 28.5 PG Mean Corpuscular Hemoglobin 33.2 % 32.4 % Concent Red Cell Distribution Width 16.4 % 16.4 % Platelet Count 313 TH/MM3 343 TH/MM3 Mean Platelet Volume 8.9 FL 8.7 FL Neutrophils (%) (Auto) 80.6 % 79.2 % Lymphocytes (%) (Auto) 5.6 % 5.9 % Monocytes (%) (Auto) 11.3 % 12.4 % Eosinophils (%) (Auto) 2.0 % 2.0 % Basophils (%) (Auto) 0.5 % 0.5 % Neutrophils # (Auto) 11.5 TH/MM3 12.4 TH/MM3 Lymphocytes # (Auto) 0.8 TH/MM3 0.9 TH/MM3 Monocytes # (Auto) 1.6 TH/MM3 1.9 TH/MM3 Eosinophils # (Auto) 0.3 TH/MM3 0.3 TH/MM3 Basophils # (Auto) 0.1 TH/MM3 0.1 TH/MM3 CBC Comment AUTO DIFF AUTO DIFF Differential Total Cells 100 100 Counted Neutrophils % (Manual) 79 % 68 % Band Neutrophils % 4 % 8 % Lymphocytes % 6 % 6 % Monocytes % 7 % 11 % Eosinophils % 1 % 2 % Neutrophils # (Manual) 12.3 TH/MM3 12.4 TH/MM3 Metamyelocytes 2 % Myelocytes 1 % 3 % Differential Comment FINAL DIFF FINAL DIFF MANUAL MANUAL Platelet Estimate NORMAL NORMAL Platelet Morphology Comment NORMAL NORMAL Ovalocytes 1+ Acanthocytes OCC Sodium Level 142 MEQ/L 140 MEQ/L Potassium Level 4.1 MEQ/L 4.4 MEQ/L Chloride Level 102 MEQ/L 102 MEQ/L Carbon Dioxide Level 25.6 MEQ/L 24.2 MEQ/L Anion Gap 14 MEQ/L 14 MEQ/L Blood Urea Nitrogen 105 MG/DL 122 MG/DL Creatinine 7.09 MG/DL 7.84 MG/DL Estimat Glomerular Filtration 10 ML/MIN 9 ML/MIN Rate Random Glucose 237 MG/DL 230 MG/DL Calcium Level 7.3 MG/DL 7.5 MG/DL Protein Corrected Calcium 7.9 MG/DL Total Bilirubin 0.9 MG/DL 0.8 MG/DL Aspartate Amino Transf 214 U/L 197 U/L (AST/SGOT) Alanine Aminotransferase 258 U/L 230 U/L (ALT/SGPT) Alkaline Phosphatase 185 U/L 189 U/L Total Protein 5.9 GM/DL 6.1 GM/DL Albumin 2.2 GM/DL 2.2 GM/DL Basophils % 1 % Plasma Cells 1 % Keratocytes OCC Imaging Studies Last 24 hours Impressions Upper Extremity Ultrasound 05/25/16 0000 Signed Impressions: Service Date/Time: May 08:56 - CONCLUSION: 1. Occlusive thrombus in the right distal cephalic vein. 2. Nonocclusive thrombus in the left mid and distal basilic veins. Sammy Duran MD Chest X-Ray 05/25/16 0000 Signed Impressions: Service Date/Time: May 07:33 - CONCLUSION: 1. Multiple tubes and lines are stable. 2. Cardiomegaly. 3. Mild pulmonary vascular congestion Yifan Chowdary MD Administered Medications Medications (Trade) Dose Ordered Sig/Isabelle Route PRN Reason Start Time Stop Time Status Last Admin Dose Admin IV Flush (NS Flush) 2 ml UNSCH PRN IV FLUSH FLUSH AFTER USING IV ACCESS 05/05/16 17:15 05/24/16 00:59 IV Flush (NS Flush) 2 ml BID IV FLUSH 05/05/16 21:00 05/24/16 19:43 Artificial Tears (Tears Naturale Opth Soln) 1 drop TID EACH EYE 05/05/16 18:00 05/25/16 09:00 Ondansetron HCl (Zofran Inj) 4 mg Q6H PRN IV NAUSEA OR VOMITING 05/05/16 17:15 05/21/16 20:27 Docusate Sodium (Colace) 100 mg BID PO 05/05/16 21:00 05/24/16 19:43 Miscellaneous Information 1 Q361D XX 05/05/16 17:15 05/05/16 17:15 Chlorhexidine Gluconate (Chlorhexidine 2% Cloth) 3 pack Taper DAILY@04 TOP 05/06/16 04:00 05/02/17 03:59 05/25/16 02:43 Aspirin (Aspirin Chew) 81 mg DAILY CHEW 05/06/16 09:00 Hold 05/15/16 08:30 Atorvastatin Calcium (Lipitor) 20 mg DAILY PO 05/06/16 09:00 Hold 05/15/16 08:32 Sennosides (Senokot) 17.2 mg Q12H PO 05/06/16 18:00 05/25/16 04:15 Insulin Human Regular (NovoLIN R SUPPLEMENTAL SCALE) 1 Q6HR SQ 05/09/16 00:00 05/25/16 12:00 Furosemide (Lasix) 20 mg BID@09,18 PO 05/15/16 18:00 Hold 05/15/16 17:22 Chlorhexidine Gluconate 15 ml 15 ml BID@08,20 MT 05/16/16 20:00 05/24/16 19:44 Sodium Chloride 1,000 ml @ 0 mls/hr Q0M PRN IV For Prime & Rinse Back 05/17/16 12:13 05/24/16 13:07 Sodium Chloride (NS 1000 ml Inj) 1,000 ml @ 200 mls/hr Q5H PRN IV WITH DIALYSIS 05/17/16 12:13 05/17/16 12:28 IV Flush (NS Flush) 5 ml UNSCH PRN IVF WITH DIALYSIS 05/17/16 12:15 05/17/16 12:29 Heparin Sodium (Porcine) (Heparin Inj) UNSCH PRN .XX WITH DIALYSIS 05/17/16 12:15 05/24/16 13:08 Gentamicin Sulfate (Gentamicin (Dialysis) Inj) 20 mg UNSCH PRN IV WITH DIALYSIS 05/17/16 12:15 05/24/16 13:08 Epoetin Adonay 21417 units 10,000 units UNSCH PRN IV WITH DIALYSIS 05/17/16 12:15 05/24/16 13:08 Midazolam HCl 100 ml @ 0 mls/hr TITRATE IV 05/17/16 21:45 05/23/16 00:27 Norepinephrine Bitartrate 4 mg/ Sodium Chloride 250 ml @ 0 mls/hr TITRATE IV 05/18/16 07:00 05/19/16 17:18 Fentanyl Citrate (fentaNYL DRIP) 250 ml @ 0 mls/hr TITRATE IV 05/18/16 20:00 05/23/16 00:27 Metronidazole 500 mg 500 mg Q8HR PO 05/22/16 09:00 05/25/16 04:15 Cefepime HCl/ Sodium Chloride (Maxipime Inj/NS Inj) 100 ml @ 200 mls/hr Q12H IV 05/22/16 21:00 05/25/16 09:00 Labetalol HCl (Trandate Inj) 10 mg Q1HR PRN IV PUSH SBP>160, DBP>90, HR>65 05/23/16 21:15 05/25/16 02:43 Metoprolol Tartrate (Lopressor) 25 mg Q8HR PO 05/23/16 22:00 05/25/16 04:15 Hydralazine HCl (Apresoline Inj) 20 mg Q4H PRN IV PUSH SBP>160, DBP>90 05/23/16 21:15 05/24/16 00:59 Objective Remarks GENERAL: Obese male, intubated, unresponsive. at bedside. SKIN: Warm and dry. lines without bleeding. HEAD: Normocephalic. NECK: Supple, trachea midline. CARDIOVASCULAR: +S1/S2. RESPIRATORY: OT intubated on mechanical ventilation. anterior ye clear. GASTROINTESTINAL: Abdomen distended. EXTREMITIES: Generalized edema. NEUROLOGICAL: intubated. off sedation. does not withdraw from pain. does not open eyes. Assessment/Plan Problem List: (1) Retroperitoneal bleed Status: Acute Plan: -- Lg areas of hemorrhage involving the left peritoneum psoas muscle, the mesentery as well as area adjacent to the left external iliac artery -- Daily CBC (2) Anemia Status: Acute Plan: -- Transfuse to keep Hgb greater than 8. -- Due to intra-abdominal bleeding. (3) Superficial thrombosis of right lower extremity Status: Acute Plan: -- US on 05/18 shows nonocclusive clot to R posterior tibial vein -- No IVC filter since this is superficial. -- No anticoagulation due to high risk of bleeding. Assessment 62 y/o male who presented to the ED with chest pain and was found to be in acute STEMI. Plan 1. hemoglobin stable-monitor CBC 2. supportive care Attending Statement The exam, history, and the medical decision-making described in the above note were completed with the assistance of the mid-level provider. I reviewed and agree with the findings presented. I attest that I had a [id number] encounter with the patient on the same day, and personally performed and documented my assessment and findings in the medical record. Problem Qualifiers (1) Anemia: Cindy Perrin May 25, 2016 13:38 Carmelo Veras MD May 29, 2016 23:56
--- NOTE | 2016-05-25 15:39 | HHI.CCPN ---
Subjective Remarks/Hospital Course 61-year-old AA male. Date of admission 05/05/2016. Date of consultation 2016. Past medical history includes hypertensive heart disease, hypertension, diabetes mellitus type 2 and spinal stenosis. He presented to [facility] today with history of acute onset of diaphoresis, chest pain and syncope. Her documentation, Chest pain was 7 out of 10 without radiation. Later in the hospital physician, patient did have ST elevation anterior septal leads. I he had a cardiac catheterization in 2009 which revealed moderate coronary disease which documented 50-60% stenosis in the LAD diagonals 1 and 2. Recommended medical management at that time. Dr. Marcano was notified and proceed to the cardiac catheter lab. Patient sees heparin and one aspirin prior to cardiac catheterization. During heart catheterization,, patient became hypertensive, tachypneic, hypoxic and agitated including abdominal pain with nausea and vomiting. Patient was intubated by Dr. Simon and dispensed transferred to room 505a. Currently hemodynamic stable on a propofol drip. 05/06: Patient required additional sedation overnight. Was moving all 4 extremity spontaneously and strongly. Potassium is replaced overnight along with magnesium. This afternoon approximate 4 PM, patient went into a sinus bradycardia in the 40s. RN cannot locate pulse and possibly went into a PEA arrest. Patient received CPR for approximately 2 minutes. ROSC return immediately. Received 1 mg of epinephrine IV. Blood pressure was 240 systolic. Saturations were above 90% the entire time. Dr. Marcano was made aware. No new recommendations at this time. Electrolytes currently pending. Patient is currently hemodynamic stable and an arterial line/left radial has been placed 05/07: no improvement in delirium or mental status. spiking low grade fevers. 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 CT surgery consulted and declined to operate here: he will need referral once stabilized. fio2 requirements still high. CT chest also with evidence of bibasilar consolidation which may be aspiration pneumonitis vs. pneumonia now that we are 48h out from initial presentation and now spiking fevers. 05/08: delirium persists. continues to spike fevers. jolly cultured yesterday without results yet. holding sedation today. 05/09: delirium slightly improved. waking up on SAT, weakly following commands. cultures still NGTD. hypoxia slightly improved. 05/10: delirium improving. weakly following commands still. cultures still NGTD. fevers persist, although fever curve appears to be improving. hypoxia continues to improve. still remains very critically ill. 05/11: Tmax 99.9. Currently 99.1. Tolerating tube feeding. One bowel movement. Continues to have difficulty weaning ventilator. 05/12: Currently afebrile. Tolerating tube feeding. Positive BM. Increased FiO2 from 45-60%. +1 L. Arousable on sedation vacation and weakly follows commands. 05/13: Remains intubated, sedated. FiO2 now reduced to 45% (was 55% today am). Start weaning trials after starting Precedex. To control BP May use Cardene, given anomalous RCA 05/14: Extubated yesterday, remained on BiPAP overnight. Intermittently agitated. Following commands to me today, while on BiPAP. Remains on Cardene infusion for uncontrolled hypertension. Urine output 4.7 L in 24 hours 05/15: On 3 L nasal cannula. Fever trending down, breathing more comfortably. Able to communicate. Discussed with Dr. Marcano. Dr. Pendleton will be available tomorrow, will probably need transfer to [facility] for RCA unroofing 05/16: Acutely hypotensive overnight with tachycardia. MAP was 55 with greater than 130s. Received 3.5 L of normal saline bolus with improvement in blood pressure and heart rate. Lethargic on BiPAP. ABG pending, HB dropped from 10.9 to 7.8. No obvious source of bleeding. STAT 2U PRBC. STAT CT head and CT abd pelvis. R/O ICH or RP bleed. Patient received only 5mg Nicci at 2100 yesterday, no other sedation. Last dose of Lovenox was at 211, held now 05/17: Developed Hemorrhagic shock from large retroperitoneal hemorrhage night to 05/15/16. Stabilized after 3 units of PRBC and protamine. Hemoglobin 8.7 today. Remain encephalopathy and unresponsive yesterday. MRI 05/16/16 shows small punctate white matter infarcts, bilateral basal ganglia infarcts. Urology consult pending. Antiplatelet drugs on hold. Now with anuria from ATN secondary to shock. Nephrology consult pending 05/18: Developed sudden onset bradycardia in 40s, with acute hypotension yesterday evening around 5 PM. ACLS protocol initiated (did not arrest or lose pulse). Received multiple epinephrine, bicarbonate calcium and fluid boluses. Patient was placed on dopamine 20 mics per KG per minute, Levophed 20 mics per KG per minute, epinephrine 2.5 mics per minute and eventually stabilized with systolic blood pressure reading 120s. Hemoglobin on ABG was 7 and emergently transfused 3 units PRBC and 2 units FFP. Lab hemoglobin came back at 6.8. Patient also was profoundly acidemic with pH of 7.16. Patient received total 3 A of bicarbonate and bicarbonate infusion was started, minute ventilation was also increased. 2: MAXIMUM TEMPERATURE 100.3. Currently 99.5. No bowel movement. Tube feeds were restarted. FiO2 50%. PEEP at 8. 2: MAXIMUM TEMPERATURE 100.9. Positive BM. Tube feeds were restarted today. PT plateau. FiO2 down to 85%. Semiemergent bronchoscopy yesterday for right upper lobe airway obstruction. Resolved 05/21: MAXIMUM TEMPERATURE 100.7. Currently 99.6. Somewhat tachycardic. 2 bowel movements overnight. Tolerating tube feeds at 30 cc an hour. Had episode of emesis overnight. 05/22: Remains sedated, orally intubated on mechanical ventilation. 05/23: Remains sedated, orally intubated on mechanical ventilation. Dialyzed yesterday. 05/24: Remains sedated/encephalopathic, orally intubated on mechanical ventilation. Tolerating tube feeds. Awaiting dialysis 05/25: Remains encephalopathic, orally intubated on mechanical ventilation. Off sedation for 2 days now. PEEP decreased to to +7 Objective Vital Signs Date Time Temp Pulse Resp B/P Pulse Ox O2 Delivery O2 Flow Rate FiO2 05/25/16 11:39 98 35 05/25/16 10:00 122 05/25/16 08:00 99.4 20 169/109 Intake and Output 05/24/16 05/24/16 05/25/16 08:00 16:00 00:00 Intake Total 976 ml 200 ml 2116 ml Output Total 40 ml 5050 ml 80 ml Balance 936 ml -4850 ml 2036 ml Result Diagram: 05/25/16 0810 05/25/16 0810 Imaging Last Impressions Chest X-Ray 05/21/16 0000 Signed Impressions: Service Date/Time: Saturday, May 21, 2016 03:03 - CONCLUSION: Stable chest x-ray with likely bilateral pleural effusions with associated volume loss and/ or airspace consolidation. Low Narvaez MD Lower Extremity Ultrasound 05/18/16 0000 Signed Impressions: Service Date/Time: May 13:17 - CONCLUSION: Nonocclusive thrombus in the right posterior tibial vein. Remaining veins are otherwise patent. Carlitos Aguirre MD Head CT 05/16/16 0000 Signed Impressions: Service Date/Time: Monday, May 16, 2016 08:30 - CONCLUSION: Suspected bilateral basal ganglia calcifications are unchanged. No evidence of hemorrhage, edema, mass or mass effect. Stephen Quintanilla MD Brain MRI 05/16/16 0000 Signed Impressions: Service Date/Time: Monday, May 16, 2016 15:46 - CONCLUSION: 1. Small punctate areas of white matter infarction without cortical extension or hemorrhage. There is no significant mass effect. 2. Bilateral basal ganglia infarcts measuring 1 cm Bobby Lamas MD Abdomen/Pelvis CT 05/16/16 0000 Signed Impressions: Service Date/Time: Monday, May 16, 2016 08:39 - CONCLUSION: There are large areas of hemorrhage including the left retroperitoneum and psoas muscle, within the mesentery and a smaller area in the right psoas muscle. They don't appear to be related to the abdominal aorta or the internal iliac arteries. There is a small focal collection hemorrhage adjacent to the left external iliac artery as it enters the pelvis, but I don't believe that is related to the large amount of hemorrhage seen elsewhere. The areas of hemorrhage are large and multi-focal. Stephen Quintanilla MD Upper Extremity Ultrasound 05/10/16 0000 Signed Impressions: Service Date/Time: Tuesday, May 10, 2016 09:44 - CONCLUSION: Occlusive thrombus in the right cephalic vein. Otherwise negative Shahid Sin MD CT Angiography 05/06/16 0000 Signed Impressions: Service Date/Time: Saturday, May 07, 2016 00:04 - CONCLUSION: 1. Lobar consolidation bilaterally in the lower lobes. 2. Negative for pulmonary embolism. Michael Colbert MD Objective Remarks GENERAL: 61-year-old AA male, morbidly obese, intubated, critically ill SKIN: Warm and dry. No rash HEAD: Atraumatic. Normocephalic. EYES: Pupils equal and round around 2-3 mm bilaterally and slightly reactive. No scleral icterus. No injection or drainage. ENT: No nasal bleeding or discharge. Orotracheally intubated NECK: Trachea midline. JVD difficult to assess due to body habitus. Left IJ triple-lumen, right IJ Vas-Cath CARDIOVASCULAR: Distant due to body habitus. Regular rate and rhythm. S1, S2. Without murmur RESPIRATORY: Diminished breath sounds bilaterally due to body habitus. Breath sounds equal bilaterally. On ACV GASTROINTESTINAL: Abdomen obese, non-tender, protuberant, distended. no guarding. MUSCULOSKELETAL: Extremities without significant peripheral edema. Right femoral arterial line NEUROLOGICAL: Patient is encephalopathic, off sedation since morning of 05/23. Pupils are sluggishly reactive. Slight bilateral lower extremity withdrawal to pain A/P Assessment and Plan Neuro/Psych: Bilateral basal ganglia infarcts, small punctate white matter infarcts on MRI Acute toxic metabolic encephalopathy Versed/ Fentanyl off since 2 days, patient remains encephalopathic. Neurology Dr. Felix MRI of the brain done 05/16/16 shows small punctate white matter infarcts, bilateral basal ganglia infarcts Off Seroquel and Haldol due to nonsustained V. tach Head CT 05/08, 05/16: negative acute. EEG 05/12 revealed generalized slowing right greater than left. No epileptiform activity. EEG 05/16: No seizure, severe encephalopathy. CV: Hemorrhagic shock due to left retroperitoneal hemorrhage-shock resolved Severe bradycardia and hypotension 05/17/16 most likely secondary to recurrent bleed Aberrant RCA off LCC Nonsustained V. tach single episode Diastolic heart failure Coronary artery disease Nonischemic cardiomyopathy secondary to hypertensive heart disease Hypertensive emergency On 05/17/16: Developed sudden onset bradycardia in 40s, with acute hypotension around 5 PM. ACLS protocol initiated received multiple epinephrine, bicarbonate calcium and fluid boluses. Placed on dopamine 20 mics per KG per minute, Levophed 20 mics per KG per minute, epinephrine 2.5 mics per minute and eventually stabilized with systolic blood pressure reading 120s. Hemoglobin came back at 6.8-3U prbc and 2U FFP given . Patient also was profoundly acidemic with pH of 7.16, received total 3 A of bicarbonate and bicarbonate infusion was started, minute ventilation was also increased. On 05/16/16 patient received 4 L normal saline boluses, 3 units PRBC Currently off of Levophed Off all antihypertensives and beta blockers Status post cardiac catheterization by Dr. Moy. No intervention performed. Known coronary artery artery disease to the first and second diagonals the LAD. Aberrant RCA off left coronary cups. Transfer to fo RCA unroofing once clinically stable Aspirin 81 mg on hold due to RP hemorrhage. (Plavix DC d 05/15/[address] Marcano in anticipation of probable unroofing surgery) Hold Lipitor 20 mg a night. Hold Procardia XL 90 mg,metoprolol 25 mg by mouth every 8 hours, clonidine 0.2 mg by mouth every 8 hours ALL held due to hypotension shock Holding Lasix 20 mg po BID. On dialysis for fluid removal. (Holding home medications of hydrochlorothiazide 25 mg daily, spironolactone 50 mg twice a day) Pulm: Acute hypoxemic respiratory failure-extubated 05/13/16, re intubated 05/16/16 for airway protection Likely underlying STU Right upper lobe mucus plugging Extubated 05/13/16. Reintubated 05/16/16 for airway protection due to severe encephalopathy daily C Pap trials as tolerated Chest x-ray shows new infiltrate right upper lobe ACV 20/600/PEEP decreased to+7/FiO2 decreased to 35% Ventilator bundle Bronchodilator therapy every 4 hours and as needed. GI: Acute large left retroperitoneal hemorrhage Hypoalbuminemia Constipation- resolved. Continue Nepro at 50 cc an hour Supportive care with blood transfusion and correction of coagulopathy Continue Protonix for GI prophylaxis Colace/Senokot twice a day for bowel regimen, /Renal: Acute kidney failure due to ATN Anuria Chaudhry for accurate I's and O's in a critically ill patient Nephrology consulted, HD started 05/17/16 Dialyzed on 05/22 Endo: Diabetes mellitus type 2 Hyperglycemia Sliding-scale insulin Accu-Cheks to maintain euglycemia. Medium regimen every 6 hours Heme: Acute blood loss anemia with shock Large left retroperitoneal hemorrhage Right cephalic superficial thrombus/right PT DVT Normocytic anemia Leukocytosis Transfused 3 units PRBC stat on 05/16/16 Transfused 3 units PRBC and 2 units FFP Transfuse 1 unit PRBCs 05/19. Therapeutic Lovenox discontinued, aspirin placed on hold 75 mg IV protamine slow infusion (D/W with Dr. grimes) on 05/16/16. If patient continues to bleed consult IR for possible embolization Hematology consulted, recommends against anticoagulation and IVC filter CBC daily. Monitor trends. No active bleeding. Was on Lovenox 150 mg subcutaneous twice a day-DCd 05/16/16 ID: Aspiration pneumonia/Enterobacter aerogenes in sputum --2 Sputum culture with Enterobacter. ID changed antibiotics from meropenem, micafungin to cefepime and Flagyl. Off vancomycin Pertinent cultures 05/07 - blood cultures 2 - negative 05/08 - sputum - negative 05/08 - urine - negative 05/08 - blood cultures - negative 05/13 - blood cx negative 05/13 - urine cx negative 05/16 - sputum Enterobacter aerogenes 05/16 - urine neg 131 - blood cultures neg MSK: History of spinal stenosis/laminectomy/left total knee replacement and left ring finger amputation PT evaluate and treat Access - Left IJ CVL 05/17. Right IJ venous catheter 05/17. Right femoral art line 05/17 Prophylaxis - GI - Protonix - DVT -DCd Lovenox. SCD on L leg - Check venous doppler if clinically indicated D/W patient's at bedside and updated re plan of care and she voiced understanding. Explained that Patient may require tracheostomy Critical Care: The total critical care time was 45 minutes. Time to perform other separately billable procedures was not included in the critical care time. Sj Mariee MD May 25, 2016 15:39
[2016-05-26] VITALS (17 sets, daily range): BP systolic 115–162; BP diastolic 64–89; PULSE 71–93; RESP 20–27; TEMP 98.9–99.8; O2SAT 96–100
[2016-05-26] MEDS: ONDANSETRON HCL 4 MG/2 ML VIAL IV PRN (01:34)
[2016-05-26] MEDS: RESP: SODIUM CHLORIDE 3% 4 ML NEB NEB SCH ×6 (03:33→23:09)
[2016-05-26] MEDS: RESP: ALBUTEROL 2.5 MG/IPRATROPIUM 0.5 MG NEB (SCH) NEB ×6 (03:33→23:09)
[2016-05-26] MEDS: CHLORHEXIDINE GLUCONATE 2 % 1 PACK (2 CLOTHS) TOP SCH (04:00)
[2016-05-26] MEDS: SENNOSIDES 8.6 MG TAB PO SCH ×2 (05:37→18:00)
[2016-05-26] MEDS: metroNIDAZOLE 500 MG TAB PO SCH ×3 (05:37→22:28)
[2016-05-26] MEDS: METOPROLOL TARTRATE 25 MG TAB PO SCH (05:37)
[2016-05-26] MEDS: NIFEdipine 10 MG CAP PO SCH ×3 (05:38→22:28)
[2016-05-26] MEDS: INSULIN NovoLIN REGULAR SUPPLEMENTAL SCALE SQ SCH ×4 (06:00→18:00)
[2016-05-26 07:31] LABS: AUTOMATED NEUTROPHIL # 12.2 TH/MM3 (1.8-7.7); BASOPHIL # 0.2 TH/MM3 (0-0.2); EOSINOPHIL # 0.2 TH/MM3 (0-0.4); EOSINOPHIL % 1.4 % (0.0-4.0); LYMPH % 6.5 % (9.0-44.0); MEAN CELL VOLUME 87.3 FL (80.0-100.0); MEAN CORPUSCULAR HEMOGLOBIN 29.1 PG (27.0-34.0); MEAN CORPUSCULAR HGB CONC 33.3 % (32.0-36.0); MONO % 11.9 % (0.0-8.0); NEUT % 79.2 % (16.0-70.0); PLATELET COUNT 338 TH/MM3 (150-450); RED BLOOD COUNT 3.32 MIL/MM3 (4.50-5.90); RED CELL DISTRIBUTION WIDTH 16.7 % (11.6-17.2); WHITE BLOOD COUNT 15.4 TH/MM3 (4.0-11.0)
[2016-05-26 07:43] LABS: HEMO FLAGS AUTO DIFF
[2016-05-26 07:46] LABS: ALKALINE PHOSPHATASE 159 U/L (45-117); ALT (GPT) 184 U/L (12-78); ANION GAP 15 MEQ/L (5-15); AST (GOT) 118 U/L (15-37); BICARBONATE 25.2 MEQ/L (21.0-32.0); BLOOD UREA NITROGEN 144 MG/DL (7-18); CHLORIDE 101 MEQ/L (98-107); GLOMERULAR FILTRATION RATE 7 ML/MIN (>89); SODIUM (NA) 141 MEQ/L (136-145); TOTAL BILIRUBIN ADULT 0.8 MG/DL (0.2-1.0)
[2016-05-26 07:47] LABS: POTASSIUM 4.4 MEQ/L (3.5-5.1)
[2016-05-26] MEDS: CHLORHEXIDINE 0.12% (ORAL KIT) 15 ML CUP MT SCH ×2 (08:00→20:01)
[2016-05-26] MEDS: SODIUM CHLOR 0.9% 1000 ML INJ 1,000 ML IV PRN (08:12)
[2016-05-26] MEDS: EPOETIN ALFA 10,000 UNITS/ML VIAL IV PRN (08:13)
[2016-05-26] MEDS: HEPARIN SODIUM - IV 10,000 UNITS/10 ML VIAL PRN (08:13)
[2016-05-26] MEDS: GENTAMICIN SULFATE (DIALYSIS USE ONLY) 20 MG/2 ML VIAL IV PRN (08:13)
--- NOTE | 2016-05-26 08:25 | HHI.CCPN ---
Subjective Remarks/Hospital Course 61-year-old AA male. Date of admission 05/05/2016. Date of consultation 2016. Past medical history includes hypertensive heart disease, hypertension, diabetes mellitus type 2 and spinal stenosis. He presented to [facility] today with history of acute onset of diaphoresis, chest pain and syncope. Her documentation, Chest pain was 7 out of 10 without radiation. Later in the hospital physician, patient did have ST elevation anterior septal leads. I he had a cardiac catheterization in 2009 which revealed moderate coronary disease which documented 50-60% stenosis in the LAD diagonals 1 and 2. Recommended medical management at that time. Dr. Marcano was notified and proceed to the cardiac catheter lab. Patient sees heparin and one aspirin prior to cardiac catheterization. During heart catheterization,, patient became hypertensive, tachypneic, hypoxic and agitated including abdominal pain with nausea and vomiting. Patient was intubated by Dr. Simon and dispensed transferred to room 505a. Currently hemodynamic stable on a propofol drip. 05/06: Patient required additional sedation overnight. Was moving all 4 extremity spontaneously and strongly. Potassium is replaced overnight along with magnesium. This afternoon approximate 4 PM, patient went into a sinus bradycardia in the 40s. RN cannot locate pulse and possibly went into a PEA arrest. Patient received CPR for approximately 2 minutes. ROSC return immediately. Received 1 mg of epinephrine IV. Blood pressure was 240 systolic. Saturations were above 90% the entire time. Dr. Marcano was made aware. No new recommendations at this time. Electrolytes currently pending. Patient is currently hemodynamic stable and an arterial line/left radial has been placed 05/07: no improvement in delirium or mental status. spiking low grade fevers. 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 CT surgery consulted and declined to operate here: he will need referral once stabilized. fio2 requirements still high. CT chest also with evidence of bibasilar consolidation which may be aspiration pneumonitis vs. pneumonia now that we are 48h out from initial presentation and now spiking fevers. 05/08: delirium persists. continues to spike fevers. jolly cultured yesterday without results yet. holding sedation today. 05/09: delirium slightly improved. waking up on SAT, weakly following commands. cultures still NGTD. hypoxia slightly improved. 05/10: delirium improving. weakly following commands still. cultures still NGTD. fevers persist, although fever curve appears to be improving. hypoxia continues to improve. still remains very critically ill. 05/11: Tmax 99.9. Currently 99.1. Tolerating tube feeding. One bowel movement. Continues to have difficulty weaning ventilator. 05/12: Currently afebrile. Tolerating tube feeding. Positive BM. Increased FiO2 from 45-60%. +1 L. Arousable on sedation vacation and weakly follows commands. 05/13: Remains intubated, sedated. FiO2 now reduced to 45% (was 55% today am). Start weaning trials after starting Precedex. To control BP May use Cardene, given anomalous RCA 05/14: Extubated yesterday, remained on BiPAP overnight. Intermittently agitated. Following commands to me today, while on BiPAP. Remains on Cardene infusion for uncontrolled hypertension. Urine output 4.7 L in 24 hours 05/15: On 3 L nasal cannula. Fever trending down, breathing more comfortably. Able to communicate. Discussed with Dr. Marcano. Dr. Pendleton will be available tomorrow, will probably need transfer to [facility] for RCA unroofing 05/16: Acutely hypotensive overnight with tachycardia. MAP was 55 with greater than 130s. Received 3.5 L of normal saline bolus with improvement in blood pressure and heart rate. Lethargic on BiPAP. ABG pending, HB dropped from 10.9 to 7.8. No obvious source of bleeding. STAT 2U PRBC. STAT CT head and CT abd pelvis. R/O ICH or RP bleed. Patient received only 5mg Nicci at 2100 yesterday, no other sedation. Last dose of Lovenox was at 211, held now 05/17: Developed Hemorrhagic shock from large retroperitoneal hemorrhage night to 05/15/16. Stabilized after 3 units of PRBC and protamine. Hemoglobin 8.7 today. Remain encephalopathy and unresponsive yesterday. MRI 05/16/16 shows small punctate white matter infarcts, bilateral basal ganglia infarcts. Urology consult pending. Antiplatelet drugs on hold. Now with anuria from ATN secondary to shock. Nephrology consult pending 05/18: Developed sudden onset bradycardia in 40s, with acute hypotension yesterday evening around 5 PM. ACLS protocol initiated (did not arrest or lose pulse). Received multiple epinephrine, bicarbonate calcium and fluid boluses. Patient was placed on dopamine 20 mics per KG per minute, Levophed 20 mics per KG per minute, epinephrine 2.5 mics per minute and eventually stabilized with systolic blood pressure reading 120s. Hemoglobin on ABG was 7 and emergently transfused 3 units PRBC and 2 units FFP. Lab hemoglobin came back at 6.8. Patient also was profoundly acidemic with pH of 7.16. Patient received total 3 A of bicarbonate and bicarbonate infusion was started, minute ventilation was also increased. 2: MAXIMUM TEMPERATURE 100.3. Currently 99.5. No bowel movement. Tube feeds were restarted. FiO2 50%. PEEP at 8. 05/20: MAXIMUM TEMPERATURE 100.9. Positive BM. Tube feeds were restarted today. PT plateau. FiO2 down to 85%. Semiemergent bronchoscopy yesterday for right upper lobe airway obstruction. Resolved 05/21: MAXIMUM TEMPERATURE 100.7. Currently 99.6. Somewhat tachycardic. 2 bowel movements overnight. Tolerating tube feeds at 30 cc an hour. Had episode of emesis overnight. 05/22: Remains sedated, orally intubated on mechanical ventilation. 05/23: Remains sedated, orally intubated on mechanical ventilation. Dialyzed yesterday. 05/24: Remains sedated/encephalopathic, orally intubated on mechanical ventilation. Tolerating tube feeds. Awaiting dialysis 05/25: Remains encephalopathic, orally intubated on mechanical ventilation. Off sedation for 2 days now. PEEP decreased to to +7 /10 No acute events overnight. For HD today. Afebrile. On PRVC/AC 20, TV 550, PEEP: 6, IT: 1.2 and FIO2 35%. On no sedation. Tolerating tube feeds. Objective Vital Signs Date Time Temp Pulse Resp B/P Pulse Ox O2 Delivery O2 Flow Rate FiO2 05/26/16 06:18 80 05/26/16 04:02 100 55 05/26/16 04:00 99.0 21 154/89 Intake and Output 05/25/16 05/25/16 05/26/16 08:00 16:00 00:00 Intake Total 630 ml 725 ml 1112 ml Output Total 70 ml 65 ml 100 ml Balance 560 ml 660 ml 1012 ml Result Diagram: 05/26/16 0546 05/26/16 0546 Other Results Laboratory Tests Test 05/25/16 05/25/16 05/26/16 08:10 17:30 05:46 White Blood Count 15.7 TH/MM3 15.4 TH/MM3 Red Blood Count 3.47 MIL/MM3 3.32 MIL/MM3 Hemoglobin 9.9 GM/DL 9.6 GM/DL Hematocrit 30.5 % 29.0 % Mean Corpuscular Volume 87.9 FL 87.3 FL Mean Corpuscular Hemoglobin 28.5 PG 29.1 PG Mean Corpuscular Hemoglobin 32.4 % 33.3 % Concent Red Cell Distribution Width 16.4 % 16.7 % Platelet Count 343 TH/MM3 338 TH/MM3 Mean Platelet Volume 8.7 FL 8.8 FL Neutrophils (%) (Auto) 79.2 % 79.2 % Lymphocytes (%) (Auto) 5.9 % 6.5 % Monocytes (%) (Auto) 12.4 % 11.9 % Eosinophils (%) (Auto) 2.0 % 1.4 % Basophils (%) (Auto) 0.5 % 1.0 % Neutrophils # (Auto) 12.4 TH/MM3 12.2 TH/MM3 Lymphocytes # (Auto) 0.9 TH/MM3 1.0 TH/MM3 Monocytes # (Auto) 1.9 TH/MM3 1.8 TH/MM3 Eosinophils # (Auto) 0.3 TH/MM3 0.2 TH/MM3 Basophils # (Auto) 0.1 TH/MM3 0.2 TH/MM3 CBC Comment AUTO DIFF AUTO DIFF Differential Total Cells 100 Counted Neutrophils % (Manual) 68 % Band Neutrophils % 8 % Lymphocytes % 6 % Monocytes % 11 % Eosinophils % 2 % Basophils % 1 % Neutrophils # (Manual) 12.4 TH/MM3 Myelocytes 3 % Differential Comment FINAL DIFF MANUAL Plasma Cells 1 % Platelet Estimate NORMAL Platelet Morphology Comment NORMAL Keratocytes OCC Sodium Level 140 MEQ/L 141 MEQ/L Potassium Level 4.4 MEQ/L 4.4 MEQ/L Chloride Level 102 MEQ/L 101 MEQ/L Carbon Dioxide Level 24.2 MEQ/L 25.2 MEQ/L Anion Gap 14 MEQ/L 15 MEQ/L Blood Urea Nitrogen 122 MG/DL 144 MG/DL Creatinine 7.84 MG/DL 8.90 MG/DL Estimat Glomerular Filtration 9 ML/MIN 7 ML/MIN Rate Random Glucose 230 MG/DL 245 MG/DL Calcium Level 7.5 MG/DL 7.6 MG/DL Total Bilirubin 0.8 MG/DL 0.8 MG/DL Aspartate Amino Transf 197 U/L 118 U/L (AST/SGOT) Alanine Aminotransferase 230 U/L 184 U/L (ALT/SGPT) Alkaline Phosphatase 189 U/L 159 U/L Total Protein 6.1 GM/DL 6.0 GM/DL Albumin 2.2 GM/DL 2.2 GM/DL Magnesium Level 2.4 MG/DL Imaging Last Impressions Upper Extremity Ultrasound 05/25/16 0000 Signed Impressions: Service Date/Time: May 08:56 - CONCLUSION: 1. Occlusive thrombus in the right distal cephalic vein. 2. Nonocclusive thrombus in the left mid and distal basilic veins. Sammy Duran MD Chest X-Ray 05/25/16 0000 Signed Impressions: Service Date/Time: May 07:33 - CONCLUSION: 1. Multiple tubes and lines are stable. 2. Cardiomegaly. 3. Mild pulmonary vascular congestion Yifan Chowdary MD Lower Extremity Ultrasound 05/18/16 0000 Signed Impressions: Service Date/Time: May 13:17 - CONCLUSION: Nonocclusive thrombus in the right posterior tibial vein. Remaining veins are otherwise patent. Carlitos Aguirre MD Head CT 05/16/16 0000 Signed Impressions: Service Date/Time: Monday, May 16, 2016 08:30 - CONCLUSION: Suspected bilateral basal ganglia calcifications are unchanged. No evidence of hemorrhage, edema, mass or mass effect. Stephen Quintanilla MD Brain MRI 05/16/16 0000 Signed Impressions: Service Date/Time: Monday, May 16, 2016 15:46 - CONCLUSION: 1. Small punctate areas of white matter infarction without cortical extension or hemorrhage. There is no significant mass effect. 2. Bilateral basal ganglia infarcts measuring 1 cm Bobby Lamas MD Abdomen/Pelvis CT 05/16/16 0000 Signed Impressions: Service Date/Time: Monday, May 16, 2016 08:39 - CONCLUSION: There are large areas of hemorrhage including the left retroperitoneum and psoas muscle, within the mesentery and a smaller area in the right psoas muscle. They don't appear to be related to the abdominal aorta or the internal iliac arteries. There is a small focal collection hemorrhage adjacent to the left external iliac artery as it enters the pelvis, but I don't believe that is related to the large amount of hemorrhage seen elsewhere. The areas of hemorrhage are large and multi-focal. Stephen Quintanilla MD CT Angiography 05/06/16 0000 Signed Impressions: Service Date/Time: Saturday, May 07, 2016 00:04 - CONCLUSION: 1. Lobar consolidation bilaterally in the lower lobes. 2. Negative for pulmonary embolism. Michael Colbert MD Objective Remarks GENERAL: 61-year-old AA male, morbidly obese, intubated, critically ill SKIN: Warm and dry. No rash HEAD: Atraumatic. Normocephalic. EYES: Pupils equal and round around 2-3 mm bilaterally and slightly reactive. No scleral icterus. No injection or drainage. ENT: No nasal bleeding or discharge. Orotracheally intubated NECK: Trachea midline. JVD difficult to assess due to body habitus. Left IJ triple-lumen, right IJ Vas-Cath CARDIOVASCULAR: Distant due to body habitus. Regular rate and rhythm. S1, S2. Without murmur RESPIRATORY: Diminished breath sounds bilaterally due to body habitus. Breath sounds equal bilaterally. On ACV GASTROINTESTINAL: Abdomen obese, non-tender, protuberant, distended. no guarding. MUSCULOSKELETAL: Extremities without significant peripheral edema. Right femoral arterial line NEUROLOGICAL: Patient is encephalopathic, off sedation since morning of 05/23. Pupils are sluggishly reactive. Slight bilateral lower extremity withdrawal to pain A/P Assessment and Plan Neuro/Psych: Bilateral basal ganglia infarcts, small punctate white matter infarcts on MRI Acute toxic metabolic encephalopathy Patient remains encephalopathic. Has been off sedation > 2 days Neuro follow up. Neurology Dr. Felix MRI of the brain done 05/16/16 shows small punctate white matter infarcts, bilateral basal ganglia infarcts Off Seroquel and Haldol due to nonsustained V. tach Head CT 05/08, 05/16: negative acute. EEG 05/12 revealed generalized slowing right greater than left. No epileptiform activity. EEG 05/16: No seizure, severe encephalopathy. CV: Hemorrhagic shock due to left retroperitoneal hemorrhage-shock resolved Severe bradycardia and hypotension 05/17/16 most likely secondary to recurrent bleed Aberrant RCA off LCC Nonsustained V. tach single episode Diastolic heart failure Coronary artery disease Nonischemic cardiomyopathy secondary to hypertensive heart disease Hypertensive emergency Monitor HR and BP keep MAP>65mmHg On Procardia 30mg Q8, Labetalol 200mg 12, d/c Lopressor Status post cardiac catheterization by Dr. Moy. No intervention performed. Known coronary artery artery disease to the first and second diagonals the LAD. Aberrant RCA off left coronary cups. Transfer to fo RCA unroofing once clinically stable Aspirin 81 mg on hold due to RP hemorrhage. (Plavix DC d 05/15/[address] Marcano in anticipation of probable unroofing surgery) Pulm: Acute hypoxemic respiratory failure-extubated 05/13/16, re intubated 05/16/16 for airway protection Likely underlying STU Right upper lobe mucus plugging On PRVC/AC RR 20, TV 550, IT 1.2, PEEP:6, FIO2 35% Extubated 05/13/16. Reintubated 05/16/16 for airway protection due to severe encephalopathy Continue with vent support keep sat >92% Ventilator bundle Bronchodilator therapy every 4 hours and as needed. SBT daily as reinaldo GI: s/p large left retroperitoneal hemorrhage Hypoalbuminemia Elevated LFT's Continue Nepro at 50 cc an hour Continue Protonix for GI prophylaxis Colace/Senokot twice a day for bowel regimen, Monitor LFT's..trending down /Renal: Acute kidney failure due to ATN Anuria Chaudhry for accurate I's and O's in a critically ill patient HD started 05/17/16 for HD today Endo: Diabetes mellitus type 2 Hyperglycemia Sliding-scale insulin Accu-Cheks to maintain euglycemia. Medium regimen every 6 hours Heme: s/p Acute blood loss anemia with shock Large left retroperitoneal hemorrhage Right cephalic superficial thrombus/right PT DVT Normocytic anemia Leukocytosis Monitor CBC, Heme is following Hematology consulted, recommends against anticoagulation and IVC filter Transfused 3 units PRBC stat on 05/16/16 Transfused 3 units PRBC and 2 units FFP Transfuse 1 unit PRBCs 2/3. Therapeutic Lovenox discontinued, aspirin placed on hold 75 mg IV protamine slow infusion (D/W with Dr. grimes) on 05/16/16. If patient continues to bleed consult IR for possible embolization Was on Lovenox 150 mg subcutaneous twice a day-DCd 05/16/16 ID: Aspiration pneumonia/Enterobacter aerogenes in sputum --2/ Sputum culture with Enterobacter. Continue with abx per ID (cefepime and Flagyl) Monitor for signs of infections ( Fever, WBC). Pertinent cultures 05/07 - blood cultures 2 - negative 05/08 - sputum - negative 05/08 - urine - negative 05/08 - blood cultures - negative 05/13 - blood cx negative 05/13 - urine cx negative 05/16 - sputum Enterobacter aerogenes 05/16 - urine neg 131 - blood cultures neg MSK: History of spinal stenosis/laminectomy/left total knee replacement and left ring finger amputation PT evaluate and treat Access - Left IJ CVL 05/17. Right IJ venous catheter 05/17. Prophylaxis - GI - Protonix - DVT -DCd Lovenox. SCD on L leg - Doppler US UE: Occlusive thrombus in the right distal cephalic vein. Nonocclusive thrombus in the left mid and distal basilic veins. -Not on AC due to high risk of bleeding Per Dr. Mariee- D/W patient's at bedside and updated re plan of care and she voiced understanding. Explained that Patient may require tracheostomy Critical Care: The total critical care time was 30 minutes. Time to perform other separately billable procedures was not included in the critical care time. Adryan Augustine MD May 26, 2016 08:25
[2016-05-26] MEDS: LABETALOL HCL 200 MG TAB PO SCH ×3 (09:00→20:01)
[2016-05-26] MEDS: SODIUM CHLORIDE 0.9% FLUSH 5 ML FLUSH IV FLUSH SCH ×2 (09:00→20:02)
[2016-05-26] MEDS: DOCUSATE SODIUM 100 MG CAP PO SCH ×2 (09:00→20:02)
[2016-05-26] MEDS: CEFEPIME INJ 2,000 MG in SODIUM CHLORIDE 0.9% INJ 100 ML IV SCH ×2 (09:00→11:44)
[2016-05-26] MEDS: ARTIFICIAL TEARS OPTH SOLN 15 ML BTL EACH EYE SCH ×3 (09:00→18:00)
[2016-05-26 09:21] LABS: BANDS 1 % (0-6); BASOPHILS 1 % (0-2); EOSINOPHILS 2 % (0-4); METAMYELOCYTES 1 % (0-1); NEUTROPHIL # MANUAL DIFF 12.8 TH/MM3 (1.8-7.7); POLYS (SEG NEUTROPHILS) 81 % (16-70); WBC DIFF SAMPLE 100
[2016-05-26 09:22] LABS: ACANTHOCYTES OCC (NORMAL); PLATELET ESTIMATE SMEAR NORMAL (NORMAL); PLATELET MORPHOLOGY NORMAL (NORMAL); SCAN/DIFF FINAL DIFF MANUAL
--- NOTE | 2016-05-26 09:28 | PD.ONC.PN ---
Subjective Subjective Remarks Afebrile overnight. Patient currently getting hemodialysis. He remains mechanically ventilated. Per RN, he does not respond to verbal commands. There is a neurology consult in place. No bleeding. Objective Data Date Time Temp Pulse Resp B/P Pulse Ox O2 Delivery O2 Flow Rate FiO2 05/26/16 08:48 100 35 05/26/16 06:18 80 05/26/16 04:02 100 55 05/26/16 04:00 81 05/26/16 04:00 99.0 78 21 154/89 100 05/26/16 04:00 35 05/26/16 02:00 78 05/26/16 01:06 98 55 05/26/16 00:01 98.9 77 20 115/67 100 05/26/16 00:01 77 05/26/16 00:00 35 05/25/16 22:00 87 05/25/16 20:05 98.7 120 22 139/80 100 Arterial Line 05/25/16 20:00 40 05/25/16 20:00 120 05/25/16 19:45 100 35 05/25/16 18:00 114 05/25/16 16:00 85 05/25/16 16:00 40 05/25/16 16:00 99.6 85 20 118/66 05/25/16 15:56 99 35 05/25/16 15:54 35 05/25/16 15:51 98 35 05/25/16 15:49 100 35 05/25/16 14:00 84 05/25/16 12:00 40 05/25/16 11:39 98 35 05/25/16 10:00 122 05/26/16 05/26/16 05/26/16 07:00 15:00 23:00 Intake Total 546 ml Output Total 100 ml Balance 446 ml Result Diagram: 05/26/16 0546 05/26/16 0546 Laboratory Results Laboratory Tests Test 05/25/16 05/26/16 17:30 05:46 Magnesium Level 2.4 MG/DL White Blood Count 15.4 TH/MM3 Red Blood Count 3.32 MIL/MM3 Hemoglobin 9.6 GM/DL Hematocrit 29.0 % Mean Corpuscular Volume 87.3 FL Mean Corpuscular Hemoglobin 29.1 PG Mean Corpuscular Hemoglobin 33.3 % Concent Red Cell Distribution Width 16.7 % Platelet Count 338 TH/MM3 Mean Platelet Volume 8.8 FL Neutrophils (%) (Auto) 79.2 % Lymphocytes (%) (Auto) 6.5 % Monocytes (%) (Auto) 11.9 % Eosinophils (%) (Auto) 1.4 % Basophils (%) (Auto) 1.0 % Neutrophils # (Auto) 12.2 TH/MM3 Lymphocytes # (Auto) 1.0 TH/MM3 Monocytes # (Auto) 1.8 TH/MM3 Eosinophils # (Auto) 0.2 TH/MM3 Basophils # (Auto) 0.2 TH/MM3 CBC Comment AUTO DIFF Sodium Level 141 MEQ/L Potassium Level 4.4 MEQ/L Chloride Level 101 MEQ/L Carbon Dioxide Level 25.2 MEQ/L Anion Gap 15 MEQ/L Blood Urea Nitrogen 144 MG/DL Creatinine 8.90 MG/DL Estimat Glomerular Filtration 7 ML/MIN Rate Random Glucose 245 MG/DL Calcium Level 7.6 MG/DL Total Bilirubin 0.8 MG/DL Aspartate Amino Transf 118 U/L (AST/SGOT) Alanine Aminotransferase 184 U/L (ALT/SGPT) Alkaline Phosphatase 159 U/L Total Protein 6.0 GM/DL Albumin 2.2 GM/DL Administered Medications Medications (Trade) Dose Ordered Sig/Isabelle Route PRN Reason Start Time Stop Time Status Last Admin Dose Admin IV Flush (NS Flush) 2 ml UNSCH PRN IV FLUSH FLUSH AFTER USING IV ACCESS 05/05/16 17:15 05/24/16 00:59 IV Flush (NS Flush) 2 ml BID IV FLUSH 05/05/16 21:00 05/25/16 21:54 Artificial Tears (Tears Naturale Opth Soln) 1 drop TID EACH EYE 05/05/16 18:00 05/25/16 17:04 Ondansetron HCl (Zofran Inj) 4 mg Q6H PRN IV NAUSEA OR VOMITING 05/05/16 17:15 05/26/16 01:34 Docusate Sodium (Colace) 100 mg BID PO 05/05/16 21:00 05/25/16 21:54 Miscellaneous Information 1 Q361D XX 05/05/16 17:15 05/05/16 17:15 Chlorhexidine Gluconate (Chlorhexidine 2% Cloth) 3 pack Taper DAILY@04 TOP 05/06/16 04:00 05/02/17 03:59 05/26/16 04:00 Aspirin (Aspirin Chew) 81 mg DAILY CHEW 05/06/16 09:00 Hold 05/15/16 08:30 Atorvastatin Calcium (Lipitor) 20 mg DAILY PO 05/06/16 09:00 Hold 05/15/16 08:32 Sennosides (Senokot) 17.2 mg Q12H PO 05/06/16 18:00 05/26/16 05:37 Insulin Human Regular (NovoLIN R SUPPLEMENTAL SCALE) 1 Q6HR SQ 05/09/16 00:00 05/26/16 06:00 Furosemide (Lasix) 20 mg BID@09,18 PO 05/15/16 18:00 Hold 05/15/16 17:22 Chlorhexidine Gluconate 15 ml 15 ml BID@08,20 MT 05/16/16 20:00 05/25/16 20:00 Sodium Chloride 1,000 ml @ 0 mls/hr Q0M PRN IV For Prime & Rinse Back 05/17/16 12:13 05/26/16 08:12 Sodium Chloride (NS 1000 ml Inj) 1,000 ml @ 200 mls/hr Q5H PRN IV WITH DIALYSIS 05/17/16 12:13 05/17/16 12:28 IV Flush (NS Flush) 5 ml UNSCH PRN IVF WITH DIALYSIS 05/17/16 12:15 05/17/16 12:29 Heparin Sodium (Porcine) (Heparin Inj) UNSCH PRN .XX WITH DIALYSIS 05/17/16 12:15 05/26/16 08:13 Gentamicin Sulfate (Gentamicin (Dialysis) Inj) 20 mg UNSCH PRN IV WITH DIALYSIS 05/17/16 12:15 05/26/16 08:13 Epoetin Adonay 36875 units 10,000 units UNSCH PRN IV WITH DIALYSIS 05/17/16 12:15 05/26/16 08:13 Midazolam HCl 100 ml @ 0 mls/hr TITRATE IV 05/17/16 21:45 05/23/16 00:27 Norepinephrine Bitartrate 4 mg/ Sodium Chloride 250 ml @ 0 mls/hr TITRATE IV 05/18/16 07:00 05/19/16 17:18 Fentanyl Citrate (fentaNYL DRIP) 250 ml @ 0 mls/hr TITRATE IV 05/18/16 20:00 05/23/16 00:27 Metronidazole 500 mg 500 mg Q8HR PO 05/22/16 09:00 05/26/16 05:37 Cefepime HCl/ Sodium Chloride (Maxipime Inj/NS Inj) 100 ml @ 200 mls/hr Q12H IV 05/22/16 21:00 05/25/16 21:54 Labetalol HCl (Trandate Inj) 10 mg Q1HR PRN IV PUSH SBP>160, DBP>90, HR>65 05/23/16 21:15 05/25/16 02:43 Hydralazine HCl (Apresoline Inj) 20 mg Q4H PRN IV PUSH SBP>160, DBP>90 05/23/16 21:15 05/24/16 00:59 Nifedipine (Procardia) 30 mg Q8HR PO 05/25/16 14:00 05/26/16 05:38 Labetalol HCl (Trandate) 200 mg Q12HR PO 05/25/16 11:15 05/25/16 21:56 Objective Remarks GENERAL: Obese male, intubated, unresponsive. SKIN: Warm and dry. No oozing from lines. HEAD: Normocephalic. NECK: Supple, trachea midline. CARDIOVASCULAR: +S1/S2. RESPIRATORY: OT intubated on mechanical ventilation. Clear anteriorly. GASTROINTESTINAL: Abdomen distended. EXTREMITIES: Generalized edema. NEUROLOGICAL: Intubated on no sedation. He is not responding to commands. He coughs when suctioned. Assessment/Plan Problem List: (1) Retroperitoneal bleed Status: Acute Plan: -- Lg areas of hemorrhage involving the left peritoneum psoas muscle, the mesentery as well as area adjacent to the left external iliac artery -- Daily CBC -- Repeat CT Abdomen once stable (2) Anemia Status: Acute Plan: -- Transfuse to keep Hgb greater than 8. -- Due to intra-abdominal bleeding. (3) Superficial thrombosis of right lower extremity Status: Acute Plan: -- Repeat U/S today -- US on 05/18 shows nonocclusive clot to R posterior tibial vein -- No IVC filter since this is superficial. -- No anticoagulation due to high risk of bleeding. (4) Occlusive thrombus Status: Acute Plan: -- US on 05/25/16 shows occlusive thrombus to R distal cephalic vein -- This is superficial -- No treatment at this time Assessment 62 y/o male who presented to the ED with chest pain and was found to be in acute STEMI. Plan 1. Daily CBC 2. Repeat US of BLE to assess thrombus. 3. Reassess retroperitoneal bleed once stable 4. Supportive care Problem Qualifiers (1) Anemia: Jessica Canas May 26, 2016 09:28
--- NOTE | 2016-05-26 11:00 | HHI.NPPN ---
Subjective History of Present Illness 61 year old with ARF, CHF, Respiratory failure Additional Remarks Patient remain intubated and now off sedation, on HD. Objective Data Data 05/25/16 05/26/16 19:00 07:00 Intake Total 725 ml 1658 ml Output Total 65 ml 200 ml Balance 660 ml 1458 ml IV Total 250 ml 328 ml Tube Feeding 375 ml 1230 ml Other 100 ml 100 ml Output Urine Total 65 ml 200 ml # Bowel Movements 1 3 Vital Signs Date Time Temp Pulse Resp B/P Pulse Ox O2 Delivery O2 Flow Rate FiO2 05/26/16 08:48 100 35 05/26/16 06:18 80 05/26/16 04:02 100 55 05/26/16 04:00 81 05/26/16 04:00 99.0 78 21 154/89 100 05/26/16 04:00 35 05/26/16 02:00 78 05/26/16 01:06 98 55 05/26/16 00:01 98.9 77 20 115/67 100 05/26/16 00:01 77 05/26/16 00:00 35 05/25/16 22:00 87 05/25/16 20:05 98.7 120 22 139/80 100 Arterial Line 05/25/16 20:00 40 05/25/16 20:00 120 05/25/16 19:45 100 35 05/25/16 18:00 114 05/25/16 16:00 85 05/25/16 16:00 40 05/25/16 16:00 99.6 85 20 118/66 05/25/16 15:56 99 35 05/25/16 15:54 35 05/25/16 15:51 98 35 05/25/16 15:49 100 35 05/25/16 14:00 84 05/25/16 12:00 40 05/25/16 11:39 98 35 -: 05/26/16 0546 05/26/16 0546 Physical Exam General Appearance: Obese Appearance Remarks Intubated and off sedation. Neck Neck Exam: Neck Supple Pulmonary Resp Exam: Rhonchi, Decreased Bases, Diminished Breath Sounds, Poor Inspiratory Effort Cardiology CV Exam: Tachycardia Gastrointestinal/Abdomen GI Exam: Soft, Non-Tender, Distended Extremeties Extremities Exam: Moderate Edema, Pitting Edema, Dependent Edema Neurologic Neuro Exam: Unresponsive Assessment/Plan Problem List: (1) Acute renal failure Plan: Patient has oliguric acute renal failure and remains essentially anuric. Continue MWF HD for now. BUN and Creatinine remain elevated. HD done yesterday and 5 liters removed. On Labetalol also. HD now removing 5 liters. Neurology consulted for no improvement in mental status. 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 Plan: Cardiology following (4) Acute hypoxemic respiratory failure Plan: On ventilator (5) Hypertensive emergency Plan: BP improved (6) Diabetes mellitus Plan: Continue monitor blood glucose (7) CAD (coronary artery disease) Plan: Presented with STEMI, follow with cardiology (8) Subsequent ST elevation (STEMI) myocardial infarction of anterior wall Plan: Planned transfer to when stable. No intervention performed here. Problem Qualifiers (1) Acute renal failure: Qualified Code: N17.0 - Acute renal failure with tubular necrosis (2) Diabetes mellitus: Qualified Code: E13.8 - Diabetes mellitus of other type with complication, unspecified moth exterminator insulin use status (3) CAD (coronary artery disease): Qualified Code: I25.10 - Coronary artery disease, angina presence unspecified, unspecified vessel or lesion type, unspecified whether [place] or transplanted heart Renee Bhat MD May 26, 2016 11:00
--- NOTE | 2016-05-26 14:06 | PD.CARD.PN ---
Subjective Subjective Remarks No events over night Objective Medications Current Medications Medications (Trade) Dose Ordered Sig/Isabelle Route Start Time Stop Time Status Last Admin (NS Flush) 2 ml UNSCH PRN IV FLUSH 05/05/16 17:15 05/24/16 00:59 (NS Flush) 2 ml BID IV FLUSH 05/05/16 21:00 05/25/16 21:54 (Tears Naturale Opth Soln) 1 drop TID EACH EYE 05/05/16 18:00 05/26/16 09:00 (Zofran Inj) 4 mg Q6H PRN IV 05/05/16 17:15 05/26/16 01:34 (Colace) 100 mg BID PO 05/05/16 21:00 05/25/16 21:54 Miscellaneous Information 1 Q361D XX 05/05/16 17:15 05/05/16 17:15 (Chlorhexidine 2% Cloth) 3 pack Taper DAILY@04 TOP 05/06/16 04:00 05/02/17 03:59 05/26/16 04:00 (Chlorhexidine 2% Cloth) 3 pack UNSCH PRN TOP 05/05/16 17:15 (Glucagon Inj) 1 mg UNSCH PRN OTHER 05/05/16 17:15 (Aspirin Chew) 81 mg DAILY CHEW 05/06/16 09:00 Hold 05/15/16 08:30 (Lipitor) 20 mg DAILY PO 05/06/16 09:00 Hold 05/15/16 08:32 (Senokot) 17.2 mg Q12H PO 05/06/16 18:00 05/26/16 05:37 (D50w (Vial) Inj) 25 ml UNSCH PRN IV PUSH 05/08/16 21:00 (NovoLIN R SUPPLEMENTAL SCALE) 1 Q6HR SQ 05/09/16 00:00 05/26/16 06:00 (Pill Splitter) 1 ea UNSCH PRN OTHER 05/11/16 15:15 (Lasix) 20 mg BID@09,18 PO 05/15/16 18:00 Hold 05/15/16 17:22 Chlorhexidine Gluconate 15 ml 15 ml BID@08,20 MT 05/16/16 20:00 05/26/16 08:00 (NS 1000 ml Inj) 1,000 ml @ 0 mls/hr Q0M PRN IV 05/17/16 12:13 05/26/16 08:12 Heparin Sodium (Porcine) 8000 units 8,000 units UNSCH PRN IVF 05/17/16 12:15 Sodium Chloride 1,000 ml @ 200 mls/hr Q5H PRN IV 05/17/16 12:13 05/17/16 12:28 (NS 1000 ml Inj) 1,000 ml @ 0 mls/hr Q0M PRN IV 05/17/16 12:13 (Mannitol Inj) 12.5 gm UNSCH PRN IV 05/17/16 12:15 (Albumin 25% Inj) 25 gm UNSCH PRN IV 05/17/16 12:15 (NS Flush) 5 ml UNSCH PRN IVF 05/17/16 12:15 05/17/16 12:29 (Heparin Inj) UNSCH PRN .XX 05/17/16 12:15 05/26/16 08:13 (Gentamicin (Dialysis) Inj) 20 mg UNSCH PRN IV 05/17/16 12:15 05/26/16 08:13 (Zofran Inj) 4 mg UNSCH PRN IV 05/17/16 12:15 (Benadryl) 25 mg UNSCH PRN PO 05/17/16 12:15 (Gelfoam 12 Mm/7 Mm Top) 1 foam UNSCH PRN TOP 05/17/16 12:15 (Epogen Inj) 10,000 units UNSCH PRN IV 05/17/16 12:15 05/26/16 08:13 Terbutaline Sulfate 1 mg 1 mg UNSCH PRN SQ 05/17/16 13:45 Midazolam HCl 100 ml @ 0 mls/hr TITRATE IV 05/17/16 21:45 05/23/16 00:27 Norepinephrine Bitartrate 4 mg/ Sodium Chloride 250 ml @ 0 mls/hr TITRATE IV 05/18/16 07:00 05/19/16 17:18 (fentaNYL DRIP) 250 ml @ 0 mls/hr TITRATE IV 05/18/16 20:00 05/23/16 00:27 Metronidazole 500 mg 500 mg Q8HR PO 05/22/16 09:00 05/26/16 11:43 (Maxipime Inj/NS Inj) 100 ml @ 200 mls/hr Q12H IV 05/22/16 21:00 05/26/16 11:44 (Trandate Inj) 10 mg Q1HR PRN IV PUSH 05/23/16 21:15 05/25/16 02:43 (Nitroglycerin 2% Oint) 2 inch Q6HR PRN TOPICAL 05/23/16 22:00 (Apresoline Inj) 20 mg Q4H PRN IV PUSH 05/23/16 21:15 05/24/16 00:59 (Procardia) 30 mg Q8HR PO 05/25/16 14:00 05/26/16 11:42 (Trandate) 200 mg Q12HR PO 05/25/16 11:15 05/26/16 11:43 Vital Signs / I&O Vital Signs Date Time Temp Pulse Resp B/P Pulse Ox O2 Delivery O2 Flow Rate FiO2 05/26/16 12:17 99.3 87 21 162/74 100 05/26/16 12:14 87 05/26/16 12:13 35 05/26/16 11:52 96 35 05/26/16 08:48 100 35 05/26/16 06:18 80 05/26/16 04:02 100 55 05/26/16 04:00 81 05/26/16 04:00 99.0 78 21 154/89 100 05/26/16 04:00 35 05/26/16 02:00 78 05/26/16 01:06 98 55 05/26/16 00:01 98.9 77 20 115/67 100 05/26/16 00:01 77 05/26/16 00:00 35 05/25/16 22:00 87 05/25/16 20:05 98.7 120 22 139/80 100 Arterial Line 05/25/16 20:00 40 05/25/16 20:00 120 05/25/16 19:45 100 35 05/25/16 18:00 114 05/25/16 16:00 85 05/25/16 16:00 40 05/25/16 16:00 99.6 85 20 118/66 05/25/16 15:56 99 35 05/25/16 15:54 35 05/25/16 15:51 98 35 05/25/16 15:49 100 35 I/O 05/25/16 05/25/16 05/25/16 05/26/1610/17 2/10/17 07:00 15:00 23:00 07:00 15:00 23:00 Intake Total 630 ml 725 ml 1112 ml 546 ml Output Total 70 ml 65 ml 100 ml 100 ml 5000 ml Balance 560 ml 660 ml 1012 ml 446 ml -5000 ml IV Total 79 ml 250 ml 224 ml 104 ml Tube Feeding 431 ml 375 ml 888 ml 342 ml Other 120 ml 100 ml 100 ml Output Urine Total 70 ml 65 ml 100 ml 100 ml Hemodialysis 5000 ml # Bowel Movements 2 1 1 2 Physical Exam GENERAL: On vent, no sedation SKIN: Warm and dry. HEAD: Atraumatic. Normocephalic. EYES: Pupils equal and round. No scleral icterus. No injection or drainage. ENT: No nasal bleeding or discharge. Mucous membranes pink and moist. NECK: Trachea midline. No JVD. CARDIOVASCULAR: Regular rhythm. Tachycardic RESPIRATORY: No accessory muscle use. Decreased breath sounds bilaterally GASTROINTESTINAL: Abdomen soft, non-tender, nondistended. Hepatic and splenic margins not palpable. MUSCULOSKELETAL: Extremities without clubbing, cyanosis, or edema. No obvious deformities. NEUROLOGICAL: On vent, no sedation Laboratory Laboratory Tests Test 05/25/16 05/26/16 17:30 05:46 Magnesium Level 2.4 MG/DL White Blood Count 15.4 TH/MM3 Red Blood Count 3.32 MIL/MM3 Hemoglobin 9.6 GM/DL Hematocrit 29.0 % Mean Corpuscular Volume 87.3 FL Mean Corpuscular Hemoglobin 29.1 PG Mean Corpuscular Hemoglobin 33.3 % Concent Red Cell Distribution Width 16.7 % Platelet Count 338 TH/MM3 Mean Platelet Volume 8.8 FL Neutrophils (%) (Auto) 79.2 % Lymphocytes (%) (Auto) 6.5 % Monocytes (%) (Auto) 11.9 % Eosinophils (%) (Auto) 1.4 % Basophils (%) (Auto) 1.0 % Neutrophils # (Auto) 12.2 TH/MM3 Lymphocytes # (Auto) 1.0 TH/MM3 Monocytes # (Auto) 1.8 TH/MM3 Eosinophils # (Auto) 0.2 TH/MM3 Basophils # (Auto) 0.2 TH/MM3 CBC Comment AUTO DIFF Differential Total Cells 100 Counted Neutrophils % (Manual) 81 % Band Neutrophils % 1 % Lymphocytes % 7 % Monocytes % 7 % Eosinophils % 2 % Basophils % 1 % Neutrophils # (Manual) 12.8 TH/MM3 Metamyelocytes 1 % Differential Comment FINAL DIFF MANUAL Platelet Estimate NORMAL Platelet Morphology Comment NORMAL Acanthocytes OCC Sodium Level 141 MEQ/L Potassium Level 4.4 MEQ/L Chloride Level 101 MEQ/L Carbon Dioxide Level 25.2 MEQ/L Anion Gap 15 MEQ/L Blood Urea Nitrogen 144 MG/DL Creatinine 8.90 MG/DL Estimat Glomerular Filtration 7 ML/MIN Rate Random Glucose 245 MG/DL Calcium Level 7.6 MG/DL Total Bilirubin 0.8 MG/DL Aspartate Amino Transf 118 U/L (AST/SGOT) Alanine Aminotransferase 184 U/L (ALT/SGPT) Alkaline Phosphatase 159 U/L Total Protein 6.0 GM/DL Albumin 2.2 GM/DL Assessment and Plan Problem List: (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 (2) Hypertensive emergency (3) Acute hypoxemic respiratory failure (4) Diabetes mellitus (5) CAD (coronary artery disease) (6) NSVT (nonsustained ventricular tachycardia) (7) Retroperitoneal bleed Assessment and Plan 1) Cardiac cath showing mild to moderate CAD 2) Anomalous RCA off Left Coronary Cusp, will need CTA of coronaries to define pathway of RCA between PA and Aorta especially with chest pain/pre-syncopal episodes... but CT done shows that RCA most likely takes an intra-arterial route , discussed with radiology 3) Occlusive thrombus noted in right PT and right cephalic veins 4) Will discuss with CT Surgery about possible transfer for unroofing of RCA once stable and neurologic status confirmed 5) Retroperitoneal bleeds most likely from ASA/Plavix/Lovenox, not felt to be due to cardiac cath as it's left-sided, Lovenox held... watch H/H... Hgb currently stable 6) ATN from hypotension, started on HD 7) Pressors off, blood pressure stable, continue to wean vent FIO2 as possible 8) Off of all cardiac medications at this time, due to previous hemorrhagic shock 9) Awaiting neurologic status, will see PRN, call with questions Problem Qualifiers (1) Diabetes mellitus: Qualified Code: E13.8 - Diabetes mellitus of other type with complication, unspecified long term care administrator insulin use status (2) CAD (coronary artery disease): Qualified Code: I25.10 - Coronary artery disease, angina presence unspecified, unspecified vessel or lesion type, unspecified whether [place] or transplanted heart Maurizio Marcano DO May 26, 2016 14:06
--- NOTE | 2016-05-26 15:59 | RADRPT ---
EXAM DATE/TIME: 05/26/2016 13:51 [facility] COMPARISON: US LEG BILATERAL VENOUS DOPPLER, May 10, 2016, 9:20. INDICATIONS : Bilateral leg swelling. MEDICAL HISTORY : Myocardial infarction. Congestive heart failure. Hypertension. Diabetes. SURGICAL HISTORY : Back surgery. Meniscus repair. ENCOUNTER: Subsequent ACUITY: 2 weeks PAIN SCORE: Non-responsive LOCATION: Bilateral legs. TECHNIQUE: Venous ultrasound of the left and right leg was performed from the inguinal ligament to the proximal calf. Real-time, color Doppler and spectral tracing, compression and augmentation techniques were us ed. FINDINGS: RIGHT LEG: There is previous thrombosis in the right posterior tibial vein extending just above the knee. LEFT LEG: There is normal compressibility of the deep venous system from the inguinal region to the proximal ca lf. No echogenic clot is seen in the lumen of the common femoral, femoral, popliteal, and posterior tibial veins. There is a normal response of the venous system to proximal and distal augmentation an d respiration. CONCLUSION: New thrombosed right posterior tibial vein. Jonathon Peters MD FACR on May 26, 2016 at 15:56 Board Certified Radiologist. This report was verified electronically.
--- NOTE | 2016-05-26 19:44 | HHI.PR ---
Review/Management Diagnosis bilateral basal ganglia strokes--embolic vs hypotensive Plan repeat MRI brain tomorrow to r/o new cva since he is still obtunded Diagnosis/Plan: Subjective Subjective Comments Pt still very obtunded off sedation Active Medications Current Medications Medications (Trade) Dose Ordered Sig/[place] Route Start Time Stop Time Status Last Admin (NS Flush) 2 ml UNSCH PRN IV FLUSH 05/05/16 17:15 05/24/16 00:59 (NS Flush) 2 ml BID IV FLUSH 05/05/16 21:00 05/25/16 21:54 (Tears Naturale Opth Soln) 1 drop TID EACH EYE 05/05/16 18:00 05/26/16 18:00 (Zofran Inj) 4 mg Q6H PRN IV 05/05/16 17:15 05/26/16 01:34 (Colace) 100 mg BID PO 05/05/16 21:00 05/25/16 21:54 Miscellaneous Information 1 Q361D XX 05/05/16 17:15 05/05/16 17:15 (Chlorhexidine 2% Cloth) 3 pack Taper DAILY@04 TOP 05/06/16 04:00 05/02/17 03:59 05/26/16 04:00 (Chlorhexidine 2% Cloth) 3 pack UNSCH PRN TOP 05/05/16 17:15 (Glucagon Inj) 1 mg UNSCH PRN OTHER 05/05/16 17:15 (Aspirin Chew) 81 mg DAILY CHEW 05/06/16 09:00 Hold 05/15/16 08:30 (Lipitor) 20 mg DAILY PO 05/06/16 09:00 Hold 05/15/16 08:32 (Senokot) 17.2 mg Q12H PO 05/06/16 18:00 05/26/16 05:37 (D50w (Vial) Inj) 25 ml UNSCH PRN IV PUSH 05/08/16 21:00 (NovoLIN R SUPPLEMENTAL SCALE) 1 Q6HR SQ 05/09/16 00:00 05/26/16 18:00 (Pill Splitter) 1 ea UNSCH PRN OTHER 05/11/16 15:15 (Lasix) 20 mg BID@09,18 PO 05/15/16 18:00 Hold 05/15/16 17:22 Chlorhexidine Gluconate 15 ml 15 ml BID@08,20 MT 05/16/16 20:00 05/26/16 08:00 (NS 1000 ml Inj) 1,000 ml @ 0 mls/hr Q0M PRN IV 05/17/16 12:13 05/26/16 08:12 Heparin Sodium (Porcine) 8000 units 8,000 units UNSCH PRN IVF 05/17/16 12:15 Sodium Chloride 1,000 ml @ 200 mls/hr Q5H PRN IV 05/17/16 12:13 05/17/16 12:28 (NS 1000 ml Inj) 1,000 ml @ 0 mls/hr Q0M PRN IV 05/17/16 12:13 (Mannitol Inj) 12.5 gm UNSCH PRN IV 05/17/16 12:15 (Albumin 25% Inj) 25 gm UNSCH PRN IV 05/17/16 12:15 (NS Flush) 5 ml UNSCH PRN IVF 05/17/16 12:15 05/17/16 12:29 (Heparin Inj) UNSCH PRN .XX 05/17/16 12:15 05/26/16 08:13 (Gentamicin (Dialysis) Inj) 20 mg UNSCH PRN IV 05/17/16 12:15 05/26/16 08:13 (Zofran Inj) 4 mg UNSCH PRN IV 05/17/16 12:15 (Benadryl) 25 mg UNSCH PRN PO 05/17/16 12:15 (Gelfoam 12 Mm/7 Mm Top) 1 foam UNSCH PRN TOP 05/17/16 12:15 (Epogen Inj) 10,000 units UNSCH PRN IV 05/17/16 12:15 05/26/16 08:13 Terbutaline Sulfate 1 mg 1 mg UNSCH PRN SQ 05/17/16 13:45 Midazolam HCl 100 ml @ 0 mls/hr TITRATE IV 05/17/16 21:45 05/23/16 00:27 Norepinephrine Bitartrate 4 mg/ Sodium Chloride 250 ml @ 0 mls/hr TITRATE IV 05/18/16 07:00 05/19/16 17:18 (fentaNYL DRIP) 250 ml @ 0 mls/hr TITRATE IV 05/18/16 20:00 05/23/16 00:27 Metronidazole 500 mg 500 mg Q8HR PO 05/22/16 09:00 05/26/16 11:43 (Maxipime Inj/NS Inj) 100 ml @ 200 mls/hr Q12H IV 05/22/16 21:00 05/26/16 11:44 (Trandate Inj) 10 mg Q1HR PRN IV PUSH 05/23/16 21:15 05/25/16 02:43 (Nitroglycerin 2% Oint) 2 inch Q6HR PRN TOPICAL 05/23/16 22:00 (Apresoline Inj) 20 mg Q4H PRN IV PUSH 05/23/16 21:15 05/24/16 00:59 (Procardia) 30 mg Q8HR PO 05/25/16 14:00 05/26/16 11:42 (Trandate) 200 mg Q12HR PO 05/25/16 11:15 05/26/16 11:43 Allergies Allergies Coded Allergies Penicillin (Verified Allergy, Mild, "I GO CRAZY", 09/01/15) Exam I&O / VS 05/25/16 05/25/16 05/26/16 15:00 23:00 07:00 Intake Total 725 ml 1112 ml 546 ml Output Total 65 ml 100 ml 100 ml Balance 660 ml 1012 ml 446 ml IV Total 250 ml 224 ml 104 ml Tube Feeding 375 ml 888 ml 342 ml Other 100 ml 100 ml Output Urine Total 65 ml 100 ml 100 ml # Bowel Movements 1 1 2 Vital Signs Date Time Temp Pulse Resp B/P Pulse Ox O2 Delivery O2 Flow Rate FiO2 05/26/16 18:37 90 05/26/16 16:00 71 05/26/16 16:00 99.0 92 21 134/64 100 05/26/16 16:00 35 05/26/16 15:58 98 35 05/26/16 14:58 97 35 05/26/16 12:17 99.3 87 21 162/74 100 05/26/16 12:14 87 05/26/16 12:13 35 05/26/16 11:52 96 35 05/26/16 08:48 100 35 05/26/16 06:18 80 05/26/16 04:02 100 55 05/26/16 04:00 81 05/26/16 04:00 99.0 78 21 154/89 100 05/26/16 04:00 35 05/26/16 02:00 78 05/26/16 01:06 98 55 05/26/16 00:01 98.9 77 20 115/67 100 05/26/16 00:01 77 05/26/16 00:00 35 05/25/16 22:00 87 05/25/16 20:05 98.7 120 22 139/80 100 Arterial Line 05/25/16 20:00 40 05/25/16 20:00 120 05/25/16 19:45 100 35 Exam Comments minimally responsive perrl, has a left gaze which is conjugate no spontaneous limb movement, no posturing Objective Micro and Labs Laboratory Tests Test 05/26/16 05:46 White Blood Count 15.4 Red Blood Count 3.32 Hemoglobin 9.6 Hematocrit 29.0 Mean Corpuscular Volume 87.3 Mean Corpuscular Hemoglobin 29.1 Mean Corpuscular Hemoglobin 33.3 Concent Red Cell Distribution Width 16.7 Platelet Count 338 Mean Platelet Volume 8.8 Neutrophils (%) (Auto) 79.2 Lymphocytes (%) (Auto) 6.5 Monocytes (%) (Auto) 11.9 Eosinophils (%) (Auto) 1.4 Basophils (%) (Auto) 1.0 Neutrophils # (Auto) 12.2 Lymphocytes # (Auto) 1.0 Monocytes # (Auto) 1.8 Eosinophils # (Auto) 0.2 Basophils # (Auto) 0.2 CBC Comment AUTO DIFF Differential Total Cells 100 Counted Neutrophils % (Manual) 81 Band Neutrophils % 1 Lymphocytes % 7 Monocytes % 7 Eosinophils % 2 Basophils % 1 Neutrophils # (Manual) 12.8 Metamyelocytes 1 Differential Comment FINAL DIFF MANUAL Platelet Estimate NORMAL Platelet Morphology Comment NORMAL Acanthocytes OCC Sodium Level 141 Potassium Level 4.4 Chloride Level 101 Carbon Dioxide Level 25.2 Anion Gap 15 Blood Urea Nitrogen 144 Creatinine 8.90 Estimat Glomerular Filtration 7 Rate Random Glucose 245 Calcium Level 7.6 Total Bilirubin 0.8 Aspartate Amino Transf 118 (AST/SGOT) Alanine Aminotransferase 184 (ALT/SGPT) Alkaline Phosphatase 159 Total Protein 6.0 Albumin 2.2 Jatinder Felix PhD May 26, 2016 19:44
--- NOTE | 2016-05-26 20:08 | HHI.IDPN ---
Subjective Subjective Remarks Mr. Short is a 61-year-old male who was admitted on May 05, 2016. Patient's past medical history significant for hypertensive heart disease, hypertension, type 2 diabetes and spinal stenosis. Patient presented to [facility] on the day of admission with history of acute onset of diaphoresis chest pain and syncope. Patient now has retroperitoneal hematoma, IC bleed. ID following for possible sepsis. Overnight events reviewed. Low grade fevers. Tmax 99.9 Undergoes HD. UO still low. Not on pressors. No rash No diarrhea Antibiotics Cefepime IV Flagyl Lines Line sites with no e/o infection Past Medical History reviewed Allergies: Coded Allergies: Penicillin (Verified Allergy, Mild, "I GO CRAZY", 09/01/15) Objective . Vital Signs Date Time Temp Pulse Resp B/P Pulse Ox O2 Delivery O2 Flow Rate FiO2 05/26/16 18:37 90 05/26/16 16:00 71 05/26/16 16:00 99.0 92 21 134/64 100 05/26/16 16:00 35 05/26/16 15:58 98 35 05/26/16 14:58 97 35 05/26/16 12:17 99.3 87 21 162/74 100 05/26/16 12:14 87 05/26/16 12:13 35 05/26/16 11:52 96 35 05/26/16 08:48 100 35 05/26/16 06:18 80 05/26/16 04:02 100 55 05/26/16 04:00 81 05/26/16 04:00 99.0 78 21 154/89 100 05/26/16 04:00 35 05/26/16 02:00 78 05/26/16 01:06 98 55 05/26/16 00:01 98.9 77 20 115/67 100 05/26/16 00:01 77 05/26/16 00:00 35 05/25/16 22:00 87 05/25/16 05/25/16 05/26/16 15:00 23:00 07:00 Intake Total 725 ml 1112 ml 546 ml Output Total 65 ml 100 ml 100 ml Balance 660 ml 1012 ml 446 ml IV Total 250 ml 224 ml 104 ml Tube Feeding 375 ml 888 ml 342 ml Other 100 ml 100 ml Output Urine Total 65 ml 100 ml 100 ml # Bowel Movements 1 1 2 . Laboratory Tests Test 05/24/16 05/25/16 05/26/16 20:55 08:10 05:46 White Blood Count 14.3 TH/MM3 15.7 TH/MM3 15.4 TH/MM3 Red Blood Count 3.27 MIL/MM3 3.47 MIL/MM3 3.32 MIL/MM3 Hemoglobin 9.4 GM/DL 9.9 GM/DL 9.6 GM/DL Hematocrit 28.4 % 30.5 % 29.0 % Mean Corpuscular Volume 86.9 FL 87.9 FL 87.3 FL Mean Corpuscular Hemoglobin 28.8 PG 28.5 PG 29.1 PG Mean Corpuscular Hemoglobin 33.2 % 32.4 % 33.3 % Concent Red Cell Distribution Width 16.4 % 16.4 % 16.7 % Platelet Count 313 TH/MM3 343 TH/MM3 338 TH/MM3 Mean Platelet Volume 8.9 FL 8.7 FL 8.8 FL Neutrophils (%) (Auto) 80.6 % 79.2 % 79.2 % Lymphocytes (%) (Auto) 5.6 % 5.9 % 6.5 % Monocytes (%) (Auto) 11.3 % 12.4 % 11.9 % Eosinophils (%) (Auto) 2.0 % 2.0 % 1.4 % Basophils (%) (Auto) 0.5 % 0.5 % 1.0 % Neutrophils # (Auto) 11.5 TH/MM3 12.4 TH/MM3 12.2 TH/MM3 Lymphocytes # (Auto) 0.8 TH/MM3 0.9 TH/MM3 1.0 TH/MM3 Monocytes # (Auto) 1.6 TH/MM3 1.9 TH/MM3 1.8 TH/MM3 Eosinophils # (Auto) 0.3 TH/MM3 0.3 TH/MM3 0.2 TH/MM3 Basophils # (Auto) 0.1 TH/MM3 0.1 TH/MM3 0.2 TH/MM3 CBC Comment AUTO DIFF AUTO DIFF AUTO DIFF Differential Total Cells 100 100 100 Counted Neutrophils % (Manual) 79 % 68 % 81 % Band Neutrophils % 4 % 8 % 1 % Lymphocytes % 6 % 6 % 7 % Monocytes % 7 % 11 % 7 % Eosinophils % 1 % 2 % 2 % Neutrophils # (Manual) 12.3 TH/MM3 12.4 TH/MM3 12.8 TH/MM3 Metamyelocytes 2 % 1 % Myelocytes 1 % 3 % Differential Comment FINAL DIFF FINAL DIFF FINAL DIFF MANUAL MANUAL MANUAL Platelet Estimate NORMAL NORMAL NORMAL Platelet Morphology Comment NORMAL NORMAL NORMAL Ovalocytes 1+ Acanthocytes OCC OCC Basophils % 1 % 1 % Plasma Cells 1 % Keratocytes OCC Laboratory Tests Test 05/24/16 05/25/16 05/25/16 05/26/16 20:55 08:10 17:30 05:46 Sodium Level 142 MEQ/L 140 MEQ/L 141 MEQ/L Potassium Level 4.1 MEQ/L 4.4 MEQ/L 4.4 MEQ/L Chloride Level 102 MEQ/L 102 MEQ/L 101 MEQ/L Carbon Dioxide Level 25.6 MEQ/L 24.2 MEQ/L 25.2 MEQ/L Anion Gap 14 MEQ/L 14 MEQ/L 15 MEQ/L Blood Urea Nitrogen 105 MG/DL 122 MG/DL 144 MG/DL Creatinine 7.09 MG/DL 7.84 MG/DL 8.90 MG/DL Estimat Glomerular Filtration 10 ML/MIN 9 ML/MIN 7 ML/MIN Rate Random Glucose 237 MG/DL 230 MG/DL 245 MG/DL Calcium Level 7.3 MG/DL 7.5 MG/DL 7.6 MG/DL Protein Corrected Calcium 7.9 MG/DL Total Bilirubin 0.9 MG/DL 0.8 MG/DL 0.8 MG/DL Aspartate Amino Transf 214 U/L 197 U/L 118 U/L (AST/SGOT) Alanine Aminotransferase 258 U/L 230 U/L 184 U/L (ALT/SGPT) Alkaline Phosphatase 185 U/L 189 U/L 159 U/L Total Protein 5.9 GM/DL 6.1 GM/DL 6.0 GM/DL Albumin 2.2 GM/DL 2.2 GM/DL 2.2 GM/DL Magnesium Level 2.4 MG/DL Imaging Last Impressions Chest X-Ray 05/17/16 0600 Signed Impressions: Service Date/Time: Tuesday, May 17, 2016 04:05 - CONCLUSION: No significant change. Minimal basilar atelectasis. Low Johnson MD Head CT 05/16/16 0000 Signed Impressions: Service Date/Time: Monday, May 16, 2016 08:30 - CONCLUSION: Suspected bilateral basal ganglia calcifications are unchanged. No evidence of hemorrhage, edema, mass or mass effect. Stephen Quintanilla MD Brain MRI 05/16/16 0000 Signed Impressions: Service Date/Time: Monday, May 16, 2016 15:46 - CONCLUSION: 1. Small punctate areas of white matter infarction without cortical extension or hemorrhage. There is no significant mass effect. 2. Bilateral basal ganglia infarcts measuring 1 cm Bobby Lamas MD Abdomen/Pelvis CT 05/16/16 0000 Signed Impressions: Service Date/Time: Monday, May 16, 2016 08:39 - CONCLUSION: There are large areas of hemorrhage including the left retroperitoneum and psoas muscle, within the mesentery and a smaller area in the right psoas muscle. They don't appear to be related to the abdominal aorta or the internal iliac arteries. There is a small focal collection hemorrhage adjacent to the left external iliac artery as it enters the pelvis, but I don't believe that is related to the large amount of hemorrhage seen elsewhere. The areas of hemorrhage are large and multi-focal. Stephen Quintanilla MD Upper Extremity Ultrasound 05/10/16 0000 Signed Impressions: Service Date/Time: Tuesday, May 10, 2016 09:44 - CONCLUSION: Occlusive thrombus in the right cephalic vein. Otherwise negative Shahid Sin MD Lower Extremity Ultrasound 05/10/16 0000 Signed Impressions: Service Date/Time: Tuesday, May 10, 2016 09:20 - CONCLUSION: Occlusive thrombus right posterior tibial vein. Otherwise negative with negative left lower extremity Shahid Sin MD CT Angiography 05/06/16 0000 Signed Impressions: Service Date/Time: Saturday, May 07, 2016 00:04 - CONCLUSION: 1. Lobar consolidation bilaterally in the lower lobes. 2. Negative for pulmonary embolism. Michael Colbert MD Physical Exam GENERAL: Obese AAM patient, in no apparent distress. SKIN: No rashes, ecchymoses or lesions. Cool and dry. HEAD: Atraumatic. Normocephalic. No temporal or scalp tenderness. EYES: Pupils equal round and reactive. Extraocular motions intact. No scleral icterus. No injection or drainage. ENT: Large neck, Intubated NECK: Trachea midline. Supple, nontender, no meningeal signs. CARDIOVASCULAR: HS audible. RESPIRATORY: Breath sounds equal bilaterally decreased in the bases. GASTROINTESTINAL: Abdomen soft, non-tender, nondistended. Obese MUSCULOSKELETAL: Extremities without clubbing, cyanosis, or edema. NEUROLOGICAL: Sedated Psych: could not be assessed IV line sites with no e/o infection. Assessment & Plan Remarks Aspiration Pneumonia: Enterobacter cloacae Pneumonia. Possible Central line associated Blood Stream Infection. Acute metabolic encephalopathy Acute resp failure on BiPAP, component of STU Acute kidney injury: prerenal from hemodynamic changes, chronic HTN related. DM2 uncontrolled: stress as additional factor. CAD non ischemic cardiomyopathy Anemia: acute due to Retroperitoneal bleed. Receiving blood transfusions. Recs: Continue Cefepime IV (covers Enterobacter aerogenes) Continue Flagyl oral/NGT (vomiting/aspiration recently) Follow cultures Follow clinically d/w RN covering for me this weekend. Tracy Mariee MD May 26, 2016 20:08
[2016-05-27] VITALS (19 sets, daily range): BP systolic 134–175; BP diastolic 65–106; PULSE 89–122; RESP 20–27; TEMP 90–99.8; O2SAT 93–100
[2016-05-27] MEDS: INSULIN NovoLIN REGULAR SUPPLEMENTAL SCALE SQ SCH ×4 (01:04→18:00)
[2016-05-27] MEDS: CHLORHEXIDINE GLUCONATE 2 % 1 PACK (2 CLOTHS) TOP SCH (03:19)
[2016-05-27] MEDS: hydrALAZINE HCL 20 MG/ML VIAL IV PUSH PRN (03:19)
[2016-05-27] MEDS: SODIUM CHLORIDE 0.9% FLUSH 5 ML FLUSH IV FLUSH SCH ×2 (03:19→20:25)
[2016-05-27] MEDS: RESP: ALBUTEROL 2.5 MG/IPRATROPIUM 0.5 MG NEB (SCH) NEB ×6 (03:24→23:25)
[2016-05-27] MEDS: RESP: SODIUM CHLORIDE 3% 4 ML NEB NEB SCH ×6 (03:25→23:25)
--- NOTE | 2016-05-27 04:32 | RADRPT ---
EXAM DATE/TIME: 05/27/2016 02:19 [facility] COMPARISON: CHEST SINGLE AP, May 25, 2016, 7:33. INDICATIONS : Shortness of breath, possible pulmonary disease. MEDICAL HISTORY : Myocardial infarction. Congestive heart failure. Hypertension. SURGICAL HISTORY : None. ENCOUNTER: Subsequent ACUITY: 3 weeks PAIN SCORE: Non-responsive. LOCATION: Bilateral chest FINDINGS: Mild left base consolidation again noted, not significantly changed. No large effusion seen. No pneum othorax. Mild cardiomegaly is stable. Endotracheal tube tip unchanged, about 4 cm above the kendal. There is a left internal jugular centra l venous catheter with tip in the superior vena cava and a nasogastric tube coursing into the stomach . Right IJ cordis with tip in the right atrium also unchanged. CONCLUSION: No significant change mild left base consolidation or the lines/tubes as above.. Low Johnson MD on May 27, 2016 at 4:29 Board Certified Radiologist. This report was verified electronically.
[2016-05-27] MEDS: LABETALOL HCL 100 MG/20 ML VIAL IV PUSH PRN ×2 (05:30→20:26)
[2016-05-27] MEDS: SENNOSIDES 8.6 MG TAB PO SCH (05:46)
[2016-05-27] MEDS: metroNIDAZOLE 500 MG TAB PO SCH ×3 (05:46→22:32)
[2016-05-27] MEDS: NIFEdipine 10 MG CAP PO SCH ×3 (05:46→22:32)
[2016-05-27 06:30] LABS: AUTOMATED NEUTROPHIL # 13.5 TH/MM3 (1.8-7.7); BASOPHIL # 0.1 TH/MM3 (0-0.2); BASOPHIL % 0.5 % (0.0-2.0); EOSINOPHIL # 0.3 TH/MM3 (0-0.4); EOSINOPHIL % 1.6 % (0.0-4.0); HEMATOCRIT 31.5 % (39.0-51.0); MEAN CELL VOLUME 87.7 FL (80.0-100.0); MEAN CORPUSCULAR HEMOGLOBIN 28.9 PG (27.0-34.0); MONO % 10.6 % (0.0-8.0); NEUT % 81.3 % (16.0-70.0); PLATELET COUNT 350 TH/MM3 (150-450); RED BLOOD COUNT 3.59 MIL/MM3 (4.50-5.90); RED CELL DISTRIBUTION WIDTH 16.9 % (11.6-17.2); WHITE BLOOD COUNT 16.6 TH/MM3 (4.0-11.0)
[2016-05-27 06:37] LABS: HEMO FLAGS AUTO DIFF
[2016-05-27 07:19] LABS: ALKALINE PHOSPHATASE 198 U/L (45-117); ALT (GPT) 155 U/L (12-78); ANION GAP 17 MEQ/L (5-15); AST (GOT) 109 U/L (15-37); BICARBONATE 25.5 MEQ/L (21.0-32.0); BLOOD UREA NITROGEN 123 MG/DL (7-18); CHLORIDE 100 MEQ/L (98-107); GLOMERULAR FILTRATION RATE 9 ML/MIN (>89); POTASSIUM 4.2 MEQ/L (3.5-5.1); SODIUM (NA) 142 MEQ/L (136-145); TOTAL BILIRUBIN ADULT 0.8 MG/DL (0.2-1.0)
[2016-05-27 07:44] LABS: BANDS 7 % (0-6); BASOPHILS 1 % (0-2); EOSINOPHILS 1 % (0-4); METAMYELOCYTES 2 % (0-1); MYELOCYTES 3 % (0-0); NEUTROPHIL # MANUAL DIFF 14.4 TH/MM3 (1.8-7.7); POLYS (SEG NEUTROPHILS) 75 % (16-70); WBC DIFF SAMPLE 100
[2016-05-27 07:46] LABS: PLATELET ESTIMATE SMEAR NORMAL (NORMAL); PLATELET MORPHOLOGY NORMAL (NORMAL); SCAN/DIFF FINAL DIFF MANUAL
[2016-05-27] MEDS: CHLORHEXIDINE 0.12% (ORAL KIT) 15 ML CUP MT SCH ×2 (08:00→20:25)
[2016-05-27] MEDS: CEFEPIME INJ 2,000 MG in SODIUM CHLORIDE 0.9% INJ 100 ML IV SCH (08:38)
[2016-05-27] MEDS: LABETALOL HCL 200 MG TAB PO SCH ×2 (08:40→22:32)
[2016-05-27] MEDS: DOCUSATE SODIUM 100 MG CAP PO SCH ×2 (08:42→20:25)
[2016-05-27] MEDS: ARTIFICIAL TEARS OPTH SOLN 15 ML BTL EACH EYE SCH ×3 (09:00→18:00)
--- NOTE | 2016-05-27 09:29 | HHI.PR ---
Subjective Remarks sr Objective Vital Signs Date Time Temp Pulse Resp B/P Pulse Ox O2 Delivery O2 Flow Rate FiO2 05/27/16 07:39 93 35 05/27/16 06:00 95 05/27/16 04:01 99 35 05/27/16 04:00 103 05/27/16 04:00 35 05/27/16 04:00 99.4 103 25 175/86 98 05/27/16 02:00 93 05/27/16 01:02 100 35 05/27/16 00:00 99.5 93 22 134/65 100 05/27/16 00:00 35 05/27/16 00:00 93 05/26/16 22:00 93 05/26/16 20:11 100 35 05/26/16 20:00 99.8 93 27 149/77 100 05/26/16 20:00 35 05/26/16 20:00 93 05/26/16 18:37 90 05/26/16 16:00 71 05/26/16 16:00 99.0 92 21 134/64 100 05/26/16 16:00 35 05/26/16 15:58 98 35 05/26/16 14:58 97 35 05/26/16 12:17 99.3 87 21 162/74 100 05/26/16 12:14 87 05/26/16 12:13 35 05/26/16 11:52 96 35 I/O 05/26/16 05/26/16 05/26/16 05/27/16 05/27/16 05/27/16 07:00 15:00 23:00 07:00 15:00 23:00 Intake Total 546 ml 561 ml 1265 ml 451 ml Output Total 100 ml 5125 ml 50 ml 75 ml Balance 446 ml -4564 ml 1215 ml 376 ml IV Total 104 ml 133 ml 208 ml 29 ml Tube Feeding 342 ml 328 ml 997 ml 362 ml Tube Irrigant 60 ml 60 ml Other 100 ml 100 ml Output Urine Total 100 ml 125 ml 50 ml 75 ml Hemodialysis 5000 ml # Bowel Movements 2 0 0 2 Result Diagram: 05/27/1630 05/27/16 0530 Objective Remarks seems to look around but does not collow commands or rxt to threat no rxt pain Assessment and Plan Assessment and Plan bilat mult cva cardioembolic mri repeat pend he should be on anticoagulation if possible as was on plavix at time of cva bilaterally Bobby Huang MD May 27, 2016 09:29
--- NOTE | 2016-05-27 11:40 | HHI.NPPN ---
Subjective History of Present Illness 61 year old with ARF, CHF, Respiratory failure Additional Remarks Patient remain intubated and clinically same, remain unresponsive. Objective Data Data 05/26/16 05/27/16 19:00 07:00 Intake Total 561 ml 1716 ml Output Total 5125 ml 125 ml Balance -4564 ml 1591 ml IV Total 133 ml 237 ml Tube Feeding 328 ml 1359 ml Tube Irrigant 120 ml Other 100 ml Output Urine Total 125 ml 125 ml Hemodialysis 5000 ml # Bowel Movements 0 2 Vital Signs Date Time Temp Pulse Resp B/P Pulse Ox O2 Delivery O2 Flow Rate FiO2 05/27/16 10:56 98 35 05/27/16 08:00 35 05/27/16 07:39 93 35 05/27/16 06:00 95 05/27/16 04:01 99 35 05/27/16 04:00 103 05/27/16 04:00 35 05/27/16 04:00 99.4 103 25 175/86 98 05/27/16 02:00 93 05/27/16 01:02 100 35 05/27/16 00:00 99.5 93 22 134/65 100 05/27/16 00:00 35 05/27/16 00:00 93 05/26/16 22:00 93 05/26/16 20:11 100 35 05/26/16 20:00 99.8 93 27 149/77 100 05/26/16 20:00 35 05/26/16 20:00 93 05/26/16 18:37 90 05/26/16 16:00 71 05/26/16 16:00 99.0 92 21 134/64 100 05/26/16 16:00 35 05/26/16 15:58 98 35 05/26/16 14:58 97 35 05/26/16 12:17 99.3 87 21 162/74 100 05/26/16 12:14 87 05/26/16 12:13 35 05/26/16 11:52 96 35 -: 05/27/16 0530 05/27/16 0530 Physical Exam General Appearance: Obese Appearance Remarks Intubated and off sedation. Neck Neck Exam: Neck Supple Pulmonary Resp Exam: Rhonchi, Decreased Bases, Diminished Breath Sounds, Poor Inspiratory Effort Cardiology CV Exam: Tachycardia Gastrointestinal/Abdomen GI Exam: Soft, Non-Tender, Distended Extremeties Extremities Exam: Moderate Edema, Pitting Edema, Dependent Edema Neurologic Neuro Exam: Unresponsive Assessment/Plan Problem List: (1) Acute renal failure Plan: Patient has oliguric acute renal failure and remains essentially anuric. Continue MWF BUN and Creatinine remain elevated. HD done yesterday and 5 liters removed. BP is better. Weaning as tolerated. HD as needed. 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 Plan: Cardiology following (4) Acute hypoxemic respiratory failure Plan: On ventilator (5) Hypertensive emergency Plan: BP improved (6) Diabetes mellitus Plan: Continue monitor blood glucose (7) CAD (coronary artery disease) Plan: Presented with STEMI, follow with cardiology (8) Subsequent ST elevation (STEMI) myocardial infarction of anterior wall Plan: Planned transfer to when stable. No intervention performed here. Problem Qualifiers (1) Acute renal failure: Qualified Code: N17.0 - Acute renal failure with tubular necrosis (2) Diabetes mellitus: Qualified Code: E13.8 - Diabetes mellitus of other type with complication, unspecified halfway insulin use status (3) CAD (coronary artery disease): Qualified Code: I25.10 - Coronary artery disease, angina presence unspecified, unspecified vessel or lesion type, unspecified whether [place] or transplanted heart Renee Bhat MD May 27, 2016 11:40
--- NOTE | 2016-05-27 12:54 | RADRPT ---
EXAM DATE/TIME: 05/27/2016 12:17 [facility] COMPARISON: MRI BRAIN W/O CONTRAST, May 16, 2016, 15:46. INDICATIONS : CVA. MEDICAL HISTORY : Diabetes mellitus type 2. Hypertension. SURGICAL HISTORY : Discectomy, lumbar. Cardiac cath. ENCOUNTER: Subsequent ACUITY: 3 weeks PAIN SCORE: 0/10 LOCATION: cranial TECHNIQUE: Multiplanar, multisequence MRI of the brain was performed without contrast. FINDINGS: CEREBRUM: The ventricles are normal for age. No evidence of midline shift, mass lesion or hemorrhage. No extr aaxial fluid collections are seen. The pituitary gland and suprasellar cistern are normal in configu ration. WHITE MATTER: Scattered T2 bright signal abnormalities are seen bilaterally. POSTERIOR FOSSA: The cerebellum and brainstem are intact. The 4th ventricle is midline. The cerebellopontine angle is unremarkable. The cerebellar tonsils are normal in position. DIFFUSION IMAGING: Multi-focal areas of restricted diffusion are seen. EXTRACRANIAL: The visualized portions of the orbits and paranasal sinuses are unremarkable. CONCLUSION: Multifocal bilateral T2 signal abnormalities in restricted diffusion concerning for bilateral lacunar infarcts. Carlitos Aguirre MD on May 27, 2016 at 12:51 Board Certified Radiologist. This report was verified electronically.
--- NOTE | 2016-05-27 17:28 | HHI.CCPN ---
Subjective Remarks/Hospital Course 61-year-old AA male. Date of admission 05/05/2016. Date of consultation 2016. Past medical history includes hypertensive heart disease, hypertension, diabetes mellitus type 2 and spinal stenosis. He presented to [facility] today with history of acute onset of diaphoresis, chest pain and syncope. Her documentation, Chest pain was 7 out of 10 without radiation. Later in the hospital physician, patient did have ST elevation anterior septal leads. I he had a cardiac catheterization in 2009 which revealed moderate coronary disease which documented 50-60% stenosis in the LAD diagonals 1 and 2. Recommended medical management at that time. Dr. Marcano was notified and proceed to the cardiac catheter lab. Patient sees heparin and one aspirin prior to cardiac catheterization. During heart catheterization,, patient became hypertensive, tachypneic, hypoxic and agitated including abdominal pain with nausea and vomiting. Patient was intubated by Dr. Simon and dispensed transferred to room 505a. Currently hemodynamic stable on a propofol drip. 05/06: Patient required additional sedation overnight. Was moving all 4 extremity spontaneously and strongly. Potassium is replaced overnight along with magnesium. This afternoon approximate 4 PM, patient went into a sinus bradycardia in the 40s. RN cannot locate pulse and possibly went into a PEA arrest. Patient received CPR for approximately 2 minutes. ROSC return immediately. Received 1 mg of epinephrine IV. Blood pressure was 240 systolic. Saturations were above 90% the entire time. Dr. Marcano was made aware. No new recommendations at this time. Electrolytes currently pending. Patient is currently hemodynamic stable and an arterial line/left radial has been placed 05/07: no improvement in delirium or mental status. spiking low grade fevers. 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 CT surgery consulted and declined to operate here: he will need referral once stabilized. fio2 requirements still high. CT chest also with evidence of bibasilar consolidation which may be aspiration pneumonitis vs. pneumonia now that we are 48h out from initial presentation and now spiking fevers. 05/08: delirium persists. continues to spike fevers. jolly cultured yesterday without results yet. holding sedation today. 05/09: delirium slightly improved. waking up on SAT, weakly following commands. cultures still NGTD. hypoxia slightly improved. 05/10: delirium improving. weakly following commands still. cultures still NGTD. fevers persist, although fever curve appears to be improving. hypoxia continues to improve. still remains very critically ill. 05/11: Tmax 99.9. Currently 99.1. Tolerating tube feeding. One bowel movement. Continues to have difficulty weaning ventilator. 05/12: Currently afebrile. Tolerating tube feeding. Positive BM. Increased FiO2 from 45-60%. +1 L. Arousable on sedation vacation and weakly follows commands. 05/13: Remains intubated, sedated. FiO2 now reduced to 45% (was 55% today am). Start weaning trials after starting Precedex. To control BP May use Cardene, given anomalous RCA 05/14: Extubated yesterday, remained on BiPAP overnight. Intermittently agitated. Following commands to me today, while on BiPAP. Remains on Cardene infusion for uncontrolled hypertension. Urine output 4.7 L in 24 hours 05/15: On 3 L nasal cannula. Fever trending down, breathing more comfortably. Able to communicate. Discussed with Dr. Marcano. Dr. Pendleton will be available tomorrow, will probably need transfer to [facility] for RCA unroofing 05/16: Acutely hypotensive overnight with tachycardia. MAP was 55 with greater than 130s. Received 3.5 L of normal saline bolus with improvement in blood pressure and heart rate. Lethargic on BiPAP. ABG pending, HB dropped from 10.9 to 7.8. No obvious source of bleeding. STAT 2U PRBC. STAT CT head and CT abd pelvis. R/O ICH or RP bleed. Patient received only 5mg Nicci at 2100 yesterday, no other sedation. Last dose of Lovenox was at 211, held now 05/17: Developed Hemorrhagic shock from large retroperitoneal hemorrhage night to 05/15/16. Stabilized after 3 units of PRBC and protamine. Hemoglobin 8.7 today. Remain encephalopathy and unresponsive yesterday. MRI 05/16/16 shows small punctate white matter infarcts, bilateral basal ganglia infarcts. Urology consult pending. Antiplatelet drugs on hold. Now with anuria from ATN secondary to shock. Nephrology consult pending 05/18: Developed sudden onset bradycardia in 40s, with acute hypotension yesterday evening around 5 PM. ACLS protocol initiated (did not arrest or lose pulse). Received multiple epinephrine, bicarbonate calcium and fluid boluses. Patient was placed on dopamine 20 mics per KG per minute, Levophed 20 mics per KG per minute, epinephrine 2.5 mics per minute and eventually stabilized with systolic blood pressure reading 120s. Hemoglobin on ABG was 7 and emergently transfused 3 units PRBC and 2 units FFP. Lab hemoglobin came back at 6.8. Patient also was profoundly acidemic with pH of 7.16. Patient received total 3 A of bicarbonate and bicarbonate infusion was started, minute ventilation was also increased. 2: MAXIMUM TEMPERATURE 100.3. Currently 99.5. No bowel movement. Tube feeds were restarted. FiO2 50%. PEEP at 8. 05/20: MAXIMUM TEMPERATURE 100.9. Positive BM. Tube feeds were restarted today. PT plateau. FiO2 down to 85%. Semiemergent bronchoscopy yesterday for right upper lobe airway obstruction. Resolved 05/21: MAXIMUM TEMPERATURE 100.7. Currently 99.6. Somewhat tachycardic. 2 bowel movements overnight. Tolerating tube feeds at 30 cc an hour. Had episode of emesis overnight. 05/22: Remains sedated, orally intubated on mechanical ventilation. 05/23: Remains sedated, orally intubated on mechanical ventilation. Dialyzed yesterday. 05/24: Remains sedated/encephalopathic, orally intubated on mechanical ventilation. Tolerating tube feeds. Awaiting dialysis 05/25: Remains encephalopathic, orally intubated on mechanical ventilation. Off sedation for 2 days now. PEEP decreased to to +7 /10 No acute events overnight. For HD today. Afebrile. On PRVC/AC 20, TV 550, PEEP: 6, IT: 1.2 and FIO2 35%. On no sedation. Tolerating tube feeds. Subjective 05/27: Tmax 99.8. Currently 99.1. FiO2 down to 35%. Tolerating tube feeding. Positive BM. MRI brain reveals bilateral lacunar infarcts. Will likely need trach. Objective Vital Signs Date Time Temp Pulse Resp B/P Pulse Ox O2 Delivery O2 Flow Rate FiO2 05/27/16 16:00 90.0 103 20 154/82 96 05/27/16 13:57 35 Intake and Output 05/26/16 05/26/16 05/27/16 08:00 16:00 00:00 Intake Total 546 ml 561 ml 1265 ml Output Total 100 ml 5125 ml 50 ml Balance 446 ml -4564 ml 1215 ml Result Diagram: 05/27/16 0530 05/27/16 0530 Imaging Last Impressions Chest X-Ray 05/27/16 0000 Signed Impressions: Service Date/Time: Friday, May 27, 2016 02:19 - CONCLUSION: No significant change mild left base consolidation or the lines/tubes as above.. Low Johnson MD Brain MRI 05/27/16 0000 Signed Impressions: Service Date/Time: Friday, May 27, 2016 12:17 - CONCLUSION: Multifocal bilateral T2 signal abnormalities in restricted diffusion concerning for bilateral lacunar infarcts. Carlitos Aguirre MD Lower Extremity Ultrasound 05/26/16 0000 Signed Impressions: Service Date/Time: Thursday, May 26, 2016 13:51 - CONCLUSION: New thrombosed right posterior tibial vein. Jonathon Peters MD FACR Upper Extremity Ultrasound 05/25/16 0000 Signed Impressions: Service Date/Time: May 08:56 - CONCLUSION: 1. Occlusive thrombus in the right distal cephalic vein. 2. Nonocclusive thrombus in the left mid and distal basilic veins. Sammy Duran MD Head CT 05/16/16 0000 Signed Impressions: Service Date/Time: Monday, May 16, 2016 08:30 - CONCLUSION: Suspected bilateral basal ganglia calcifications are unchanged. No evidence of hemorrhage, edema, mass or mass effect. Stephen Quintanilla MD Abdomen/Pelvis CT 05/16/16 0000 Signed Impressions: Service Date/Time: Monday, May 16, 2016 08:39 - CONCLUSION: There are large areas of hemorrhage including the left retroperitoneum and psoas muscle, within the mesentery and a smaller area in the right psoas muscle. They don't appear to be related to the abdominal aorta or the internal iliac arteries. There is a small focal collection hemorrhage adjacent to the left external iliac artery as it enters the pelvis, but I don't believe that is related to the large amount of hemorrhage seen elsewhere. The areas of hemorrhage are large and multi-focal. Stephen Quintanilla MD CT Angiography 05/06/16 0000 Signed Impressions: Service Date/Time: Saturday, May 07, 2016 00:04 - CONCLUSION: 1. Lobar consolidation bilaterally in the lower lobes. 2. Negative for pulmonary embolism. Michael Colbert MD Objective Remarks GENERAL: 61-year-old AA male, morbidly obese, intubated, critically ill SKIN: Warm and dry. No rash HEAD: Atraumatic. Normocephalic. EYES: Pupils equal and round around 2-3 mm bilaterally and slightly reactive. No scleral icterus. No injection or drainage. ENT: No nasal bleeding or discharge. Orotracheally intubated NECK: Trachea midline. JVD difficult to assess due to body habitus. Left IJ triple-lumen, right IJ Vas-Cath CARDIOVASCULAR: Distant due to body habitus. Regular rate and rhythm. S1, S2. Without murmur RESPIRATORY: Diminished breath sounds bilaterally due to body habitus. Breath sounds equal bilaterally. On ACV GASTROINTESTINAL: Abdomen obese, non-tender, protuberant, distended. no guarding. MUSCULOSKELETAL: Extremities with trace. Right femoral arterial line NEUROLOGICAL: Patient is encephalopathic, off sedation since morning of 05/23. Pupils are sluggishly reactive. Slight bilateral lower extremity withdrawal to pain A/P Assessment and Plan Neuro/Psych: Bilateral basal ganglia infarcts, small punctate white matter infarcts on MRI Acute toxic metabolic encephalopathy Patient remains encephalopathic. Has been off sedation > [address] Felix. Noted anticoagulation when clinically stable. MRI of the brain done 05/16/16 shows small punctate white matter infarcts, bilateral basal ganglia infarcts Repeat MRI brain 05/27 similar Off Seroquel and Haldol due to nonsustained V. tach Head CT 05/08, 05/16: negative acute. EEG 05/12 revealed generalized slowing right greater than left. No epileptiform activity. EEG 05/16: No seizure, severe encephalopathy. CV: Hemorrhagic shock due to left retroperitoneal hemorrhage-shock resolved Severe bradycardia and hypotension 05/17/16 most likely secondary to recurrent bleed Aberrant RCA off LCC Nonsustained V. tach single episode Diastolic heart failure Coronary artery disease Nonischemic cardiomyopathy secondary to hypertensive heart disease Hypertensive emergency Monitor HR and BP keep MAP>65mmHg On Procardia 30mg Q8, Labetalol 400 every 8, d/c Lopressor At hydralazine 25 every 8 As needed hydralazine/labetalol and Nitropaste Status post cardiac catheterization by Dr. Moy. No intervention performed. Known coronary artery artery disease to the first and second diagonals the LAD. Aberrant RCA off left coronary cups. Transfer to fo RCA unroofing once clinically stable Aspirin 81 mg on hold due to RP hemorrhage. (Plavix DC d 05/15/[address] Marcano in anticipation of probable unroofing surgery) Lipitor 20 mg by mouth daily held in light of elevated liver function tests Pulm: Acute hypoxemic respiratory failure-extubated 05/13/16, re intubated 05/16/16 for airway protection Likely underlying STU Right upper lobe mucus plugging On PRVC/AC RR 20, TV 550, IT 1.2, PEEP:6, FIO2 35% Extubated 05/13/16. Reintubated 05/16/16 for airway protection due to severe encephalopathy Continue with vent support keep sat >92% Ventilator bundle Bronchodilator therapy every 4 hours and as needed. SBT daily as reinaldo GI: s/p large left retroperitoneal hemorrhage Hypoalbuminemia Elevated LFT's Continue Nepro at 50 cc an hour Continue Protonix for GI prophylaxis Colace/Senokot twice a day for bowel regimen, Monitor LFT's..trending down /Renal: Acute kidney failure due to ATN Anuria Chaudhry for accurate I's and O's in a critically ill patient HD started 05/17/16 -3 L Endo: Diabetes mellitus type 2 Hyperglycemia Sliding-scale insulin Accu-Cheks to maintain euglycemia. Medium regimen every 6 hours Heme: s/p Acute blood loss anemia with shock Large left retroperitoneal hemorrhage Right cephalic superficial thrombus left basilic thrombus/right PT THROMBUS Normocytic anemia Leukocytosis Monitor CBC, Heme is following Hematology consulted, recommends against anticoagulation and IVC filter Transfused 3 units PRBC stat on 05/16/16 Transfused 3 units PRBC and 2 units FFP Transfuse 1 unit PRBCs 2/3. Therapeutic Lovenox discontinued, aspirin placed on hold 75 mg IV protamine slow infusion (D/W with Dr. grimes) on 05/16/16. If patient continues to bleed consult IR for possible embolization Was on Lovenox 150 mg subcutaneous twice a day-DCd 05/16/16 ID: Aspiration pneumonia/Enterobacter aerogenes in sputum --2/2 Sputum culture with Enterobacter. Continue with abx per ID (cefepime and Flagyl) Monitor for signs of infections ( Fever, WBC). Pertinent cultures 05/07 - blood cultures 2 - negative 05/08 - sputum - negative 05/08 - urine - negative 05/08 - blood cultures - negative 05/13 - blood cx negative 05/13 - urine cx negative 05/16 - sputum Enterobacter aerogenes 05/16 - urine neg 131 - blood cultures neg 05/18 - blood cultures- negative 05/19 - bronchoscopy - negative MSK: History of spinal stenosis/laminectomy/left total knee replacement and left ring finger amputation PT evaluate and treat Access - Left IJ CVL 05/17. Right IJ venous catheter 05/17. Prophylaxis - GI - Protonix - DVT -DCd Lovenox. SCD on L leg - Doppler US UE: Occlusive thrombus in the right distal cephalic vein. Nonocclusive thrombus in the left mid and distal basilic veins. -Not on AC due to high risk of bleeding D/W patient's at bedside and updated re plan of care and she voiced understanding. Patient will likely need tracheostomy Critical Care: The total critical care time was 35 minutes. Time to perform other separately billable procedures was not included in the critical care time. Brett Abrams MD May 27, 2016 17:28
[2016-05-27] MEDS ORDERED: hydrALAZINE HCL 25 MG TAB PO SCH (17:30)
[2016-05-27] MEDS: CEFEPIME 1000 MG/NS 100 ML IV SCH ×2 (20:25)
[2016-05-27] MEDS: METOCLOPRAMIDE HCL 10 MG/2 ML VIAL IV PUSH SCH (20:26)
[2016-05-27] MEDS ORDERED: LABETALOL HCL 200 MG TAB PO SCH (22:00)
[2016-05-28] VITALS (18 sets, daily range): BP systolic 124–167; BP diastolic 68–101; PULSE 75–115; RESP 18–27; TEMP 98.4–99; O2SAT 91–100
[2016-05-28] MEDS: INSULIN NovoLIN REGULAR SUPPLEMENTAL SCALE SQ SCH ×5 (02:02→23:38)
[2016-05-28] MEDS: LABETALOL HCL 100 MG/20 ML VIAL IV PUSH PRN ×4 (02:03→10:02)
[2016-05-28] MEDS: RESP: SODIUM CHLORIDE 3% 4 ML NEB NEB SCH ×5 (03:39→23:12)
[2016-05-28] MEDS: RESP: ALBUTEROL 2.5 MG/IPRATROPIUM 0.5 MG NEB (SCH) NEB ×6 (03:39→23:12)
[2016-05-28] MEDS: CHLORHEXIDINE GLUCONATE 2 % 1 PACK (2 CLOTHS) TOP SCH (04:00)
[2016-05-28] MEDS: NIFEdipine 10 MG CAP PO SCH ×3 (05:29→21:12)
[2016-05-28] MEDS: LABETALOL HCL 200 MG TAB PO SCH ×3 (05:29→21:11)
[2016-05-28] MEDS: METOCLOPRAMIDE HCL 10 MG/2 ML VIAL IV PUSH SCH ×3 (05:29→21:11)
[2016-05-28] MEDS: metroNIDAZOLE 500 MG TAB PO SCH ×3 (05:29→21:11)
[2016-05-28] MEDS: CEFEPIME 1000 MG/NS 100 ML IV SCH ×4 (07:54→21:10)
[2016-05-28] MEDS: ARTIFICIAL TEARS OPTH SOLN 15 ML BTL EACH EYE SCH ×3 (07:55→17:30)
[2016-05-28] MEDS: SODIUM CHLORIDE 0.9% FLUSH 5 ML FLUSH IV FLUSH SCH ×2 (07:55→21:11)
[2016-05-28] MEDS: CHLORHEXIDINE 0.12% (ORAL KIT) 15 ML CUP MT SCH ×2 (07:58→21:10)
[2016-05-28] MEDS: DOCUSATE SODIUM 100 MG CAP PO SCH ×2 (07:58→21:11)
--- NOTE | 2016-05-28 08:29 | HHI.PR ---
Subjective Remarks sr Objective Vital Signs Date Time Temp Pulse Resp B/P Pulse Ox O2 Delivery O2 Flow Rate FiO2 05/28/16 07:39 98 35 05/28/16 06:00 81 05/28/16 04:03 100 35 05/28/16 04:00 115 05/28/16 04:00 35 05/28/16 04:00 98.7 115 24 167/101 97 05/28/16 02:00 102 05/28/16 01:02 98 35 05/28/16 00:00 35 05/28/16 00:00 99.0 99 26 138/77 96 05/28/16 00:00 99 05/27/16 22:38 97 35 05/27/16 22:00 118 05/27/16 20:38 98 35 05/27/16 20:00 98.6 122 27 152/106 97 05/27/16 20:00 35 05/27/16 20:00 122 05/27/16 17:55 96 35 05/27/16 16:00 90.0 103 20 154/82 96 05/27/16 16:00 35 05/27/16 13:57 98 35 05/27/16 12:55 99 35 05/27/16 12:00 35 05/27/16 12:00 99.8 89 20 156/91 98 05/27/16 10:56 98 35 I/O 05/27/16 05/27/16 05/27/16 05/28/16 05/28/16 05/28/16 07:00 15:00 23:00 07:00 15:00 23:00 Intake Total 451 ml 580 ml 666 ml 425 ml Output Total 75 ml 75 ml 125 ml 150 ml Balance 376 ml 505 ml 541 ml 275 ml IV Total 29 ml 130 ml 144 ml 35 ml Tube Feeding 362 ml 350 ml 462 ml 330 ml Tube Irrigant 60 ml 100 ml 60 ml 60 ml Output Urine Total 75 ml 75 ml 125 ml 150 ml # Bowel Movements 2 1 2 2 Result Diagram: 05/27/1652905/27/1630 Objective Remarks seems to look around but does not follow commands or rxt to threat no rxt pain no change Assessment and Plan Assessment and Plan bilat mult cva cardioembolic mri repeat may have a few more ok neurowise for anticoagulation he should be on anticoagulation if possible as was on plavix at time of cva bilaterally dr figueredo am he had mult tiny many infarcts a shower Bobby Huang MD May 28, 2016 08:29
[2016-05-28] MEDS: hydrALAZINE HCL 20 MG/ML VIAL IV PUSH PRN ×2 (09:41→10:45)
--- NOTE | 2016-05-28 13:05 | HHI.NPPN ---
Subjective History of Present Illness 61 year old with ARF, CHF, Respiratory failure Additional Remarks Patient remain intubated and off sedation, remain unresponsive, on CPAP. Objective Data Data 05/27/16 05/28/16 19:00 07:00 Intake Total 580 ml 1091 ml Output Total 75 ml 275 ml Balance 505 ml 816 ml IV Total 130 ml 179 ml Tube Feeding 350 ml 792 ml Tube Irrigant 100 ml 120 ml Output Urine Total 75 ml 275 ml # Bowel Movements 1 4 Vital Signs Date Time Temp Pulse Resp B/P Pulse Ox O2 Delivery O2 Flow Rate FiO2 05/28/16 12:00 99.0 88 22 164/82 97 05/28/16 11:29 98 35 05/28/16 08:28 35 05/28/16 08:28 98 35 05/28/16 08:00 99.0 75 21 158/87 98 05/28/16 08:00 35 05/28/16 07:39 98 35 05/28/16 06:00 81 05/28/16 04:03 100 35 05/28/16 04:00 115 05/28/16 04:00 35 05/28/16 04:00 98.7 115 24 167/101 97 05/28/16 02:00 102 05/28/16 01:02 98 35 05/28/16 00:00 35 05/28/16 00:00 99.0 99 26 138/77 96 05/28/16 00:00 99 05/27/16 22:38 97 35 05/27/16 22:00 118 05/27/16 20:38 98 35 05/27/16 20:00 98.6 122 27 152/106 97 05/27/16 20:00 35 05/27/16 20:00 122 05/27/16 17:55 96 35 05/27/16 16:00 90.0 103 20 154/82 96 05/27/16 16:00 35 05/27/16 13:57 98 35 -: 05/27/16 0530 05/27/16 0530 Microbiology 05/27/16 Aerobic Blood Culture - Preliminary, Resulted NO GROWTH IN 1 DAY 05/27/16 Anaerobic Blood Culture - Preliminary, Resulted NO GROWTH IN 1 DAY 05/27/16 Gram Stain - Final, Resulted 05/27/16 Sputum Culture, Resulted Pending 05/27/16 Aerobic Blood Culture - Preliminary, Resulted NO GROWTH IN 1 DAY 05/27/16 Anaerobic Blood Culture - Preliminary, Resulted NO GROWTH IN 1 DAY Physical Exam General Appearance: Obese Appearance Remarks Intubated and off sedation. Neck Neck Exam: Neck Supple Pulmonary Resp Exam: Rhonchi, Decreased Bases, Diminished Breath Sounds, Poor Inspiratory Effort Cardiology CV Exam: Tachycardia Gastrointestinal/Abdomen GI Exam: Soft, Non-Tender, Distended Extremeties Extremities Exam: Moderate Edema, Pitting Edema, Dependent Edema Neurologic Neuro Exam: Unresponsive Assessment/Plan Problem List: (1) Acute renal failure Plan: Patient has oliguric acute renal failure and remains essentially anuric. Continue MWF BUN and Creatinine remain elevated. HD done yesterday and 5 liters removed. BP is better. Weaning as tolerated. On CPAP, HD will be in AM. 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 Plan: Cardiology following (4) Acute hypoxemic respiratory failure Plan: On ventilator (5) Hypertensive emergency Plan: BP improved (6) Diabetes mellitus Plan: Continue monitor blood glucose (7) CAD (coronary artery disease) Plan: Presented with STEMI, follow with cardiology (8) Subsequent ST elevation (STEMI) myocardial infarction of anterior wall Plan: Planned transfer to [facility] when stable. No intervention performed here. Problem Qualifiers (1) Acute renal failure: Qualified Code: N17.0 - Acute renal failure with tubular necrosis (2) Diabetes mellitus: Qualified Code: E13.8 - Diabetes mellitus of other type with complication, unspecified intermediate insulin use status (3) CAD (coronary artery disease): Qualified Code: I25.10 - Coronary artery disease, angina presence unspecified, unspecified vessel or lesion type, unspecified whether [place] or transplanted heart Renee Bhat MD May 28, 2016 13:05
[2016-05-28] MEDS ORDERED: ALTEPLASE RECOMBINANT 2 MG VIAL IV FLUSH ONE (13:30)
[2016-05-28 13:38] LABS: AUTOMATED NEUTROPHIL # 14.7 TH/MM3 (1.8-7.7); BASOPHIL # 0.1 TH/MM3 (0-0.2); BASOPHIL % 0.7 % (0.0-2.0); EOSINOPHIL # 0.3 TH/MM3 (0-0.4); EOSINOPHIL % 1.8 % (0.0-4.0); HEMATOCRIT 30.5 % (39.0-51.0); LYMPH % 5.1 % (9.0-44.0); LYMPHOCYTE # 0.9 TH/MM3 (1.0-4.8); MEAN CELL VOLUME 87.3 FL (80.0-100.0); MEAN CORPUSCULAR HEMOGLOBIN 28.6 PG (27.0-34.0); MEAN CORPUSCULAR HGB CONC 32.7 % (32.0-36.0); MONO % 7.5 % (0.0-8.0); NEUT % 84.9 % (16.0-70.0); PLATELET COUNT 354 TH/MM3 (150-450); RED CELL DISTRIBUTION WIDTH 16.9 % (11.6-17.2); WHITE BLOOD COUNT 17.3 TH/MM3 (4.0-11.0)
[2016-05-28 13:41] LABS: HEMO FLAGS AUTO DIFF
[2016-05-28 14:07] LABS: METAMYELOCYTES 2 % (0-1); MYELOCYTES 1 % (0-0); NEUTROPHIL # MANUAL DIFF 15.7 TH/MM3 (1.8-7.7); POLYS (SEG NEUTROPHILS) 88 % (16-70); SCAN/DIFF FINAL DIFF MANUAL; WBC DIFF SAMPLE 100
[2016-05-28 14:08] LABS: ACANTHOCYTES OCC (NORMAL); PLATELET ESTIMATE SMEAR NORMAL (NORMAL); PLATELET MORPHOLOGY NORMAL (NORMAL)
[2016-05-28 14:27] LABS: BICARBONATE 23.6 MEQ/L (21.0-32.0); MAGNESIUM 2.6 MG/DL (1.5-2.5); POTASSIUM 4.5 MEQ/L (3.5-5.1)
--- NOTE | 2016-05-28 16:44 | HHI.CCPN ---
Subjective Remarks/Hospital Course 61-year-old AA male. Date of admission 05/05/2016. Date of consultation 2016. Past medical history includes hypertensive heart disease, hypertension, diabetes mellitus type 2 and spinal stenosis. He presented to [facility] today with history of acute onset of diaphoresis, chest pain and syncope. Her documentation, Chest pain was 7 out of 10 without radiation. Later in the hospital physician, patient did have ST elevation anterior septal leads. I he had a cardiac catheterization in 2009 which revealed moderate coronary disease which documented 50-60% stenosis in the LAD diagonals 1 and 2. Recommended medical management at that time. Dr. Marcano was notified and proceed to the cardiac catheter lab. Patient sees heparin and one aspirin prior to cardiac catheterization. During heart catheterization,, patient became hypertensive, tachypneic, hypoxic and agitated including abdominal pain with nausea and vomiting. Patient was intubated by Dr. Simon and dispensed transferred to room 505a. Currently hemodynamic stable on a propofol drip. 05/06: Patient required additional sedation overnight. Was moving all 4 extremity spontaneously and strongly. Potassium is replaced overnight along with magnesium. This afternoon approximate 4 PM, patient went into a sinus bradycardia in the 40s. RN cannot locate pulse and possibly went into a PEA arrest. Patient received CPR for approximately 2 minutes. ROSC return immediately. Received 1 mg of epinephrine IV. Blood pressure was 240 systolic. Saturations were above 90% the entire time. Dr. Marcano was made aware. No new recommendations at this time. Electrolytes currently pending. Patient is currently hemodynamic stable and an arterial line/left radial has been placed 05/07: no improvement in delirium or mental status. spiking low grade fevers. 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 CT surgery consulted and declined to operate here: he will need referral once stabilized. fio2 requirements still high. CT chest also with evidence of bibasilar consolidation which may be aspiration pneumonitis vs. pneumonia now that we are 48h out from initial presentation and now spiking fevers. 05/08: delirium persists. continues to spike fevers. jolly cultured yesterday without results yet. holding sedation today. 05/09: delirium slightly improved. waking up on SAT, weakly following commands. cultures still NGTD. hypoxia slightly improved. 05/10: delirium improving. weakly following commands still. cultures still NGTD. fevers persist, although fever curve appears to be improving. hypoxia continues to improve. still remains very critically ill. 05/11: Tmax 99.9. Currently 99.1. Tolerating tube feeding. One bowel movement. Continues to have difficulty weaning ventilator. 05/12: Currently afebrile. Tolerating tube feeding. Positive BM. Increased FiO2 from 45-60%. +1 L. Arousable on sedation vacation and weakly follows commands. 05/13: Remains intubated, sedated. FiO2 now reduced to 45% (was 55% today am). Start weaning trials after starting Precedex. To control BP May use Cardene, given anomalous RCA 05/14: Extubated yesterday, remained on BiPAP overnight. Intermittently agitated. Following commands to me today, while on BiPAP. Remains on Cardene infusion for uncontrolled hypertension. Urine output 4.7 L in 24 hours 05/15: On 3 L nasal cannula. Fever trending down, breathing more comfortably. Able to communicate. Discussed with Dr. Marcano. Dr. Pendleton will be available tomorrow, will probably need transfer to [facility] for RCA unroofing 05/16: Acutely hypotensive overnight with tachycardia. MAP was 55 with greater than 130s. Received 3.5 L of normal saline bolus with improvement in blood pressure and heart rate. Lethargic on BiPAP. ABG pending, HB dropped from 10.9 to 7.8. No obvious source of bleeding. STAT 2U PRBC. STAT CT head and CT abd pelvis. R/O ICH or RP bleed. Patient received only 5mg Nicci at 2100 yesterday, no other sedation. Last dose of Lovenox was at 211, held now 05/17: Developed Hemorrhagic shock from large retroperitoneal hemorrhage night to 05/15/16. Stabilized after 3 units of PRBC and protamine. Hemoglobin 8.7 today. Remain encephalopathy and unresponsive yesterday. MRI 05/16/16 shows small punctate white matter infarcts, bilateral basal ganglia infarcts. Urology consult pending. Antiplatelet drugs on hold. Now with anuria from ATN secondary to shock. Nephrology consult pending 05/18: Developed sudden onset bradycardia in 40s, with acute hypotension yesterday evening around 5 PM. ACLS protocol initiated (did not arrest or lose pulse). Received multiple epinephrine, bicarbonate calcium and fluid boluses. Patient was placed on dopamine 20 mics per KG per minute, Levophed 20 mics per KG per minute, epinephrine 2.5 mics per minute and eventually stabilized with systolic blood pressure reading 120s. Hemoglobin on ABG was 7 and emergently transfused 3 units PRBC and 2 units FFP. Lab hemoglobin came back at 6.8. Patient also was profoundly acidemic with pH of 7.16. Patient received total 3 A of bicarbonate and bicarbonate infusion was started, minute ventilation was also increased. 2: MAXIMUM TEMPERATURE 100.3. Currently 99.5. No bowel movement. Tube feeds were restarted. FiO2 50%. PEEP at 8. 2: MAXIMUM TEMPERATURE 100.9. Positive BM. Tube feeds were restarted today. PT plateau. FiO2 down to 85%. Semiemergent bronchoscopy yesterday for right upper lobe airway obstruction. Resolved 05/21: MAXIMUM TEMPERATURE 100.7. Currently 99.6. Somewhat tachycardic. 2 bowel movements overnight. Tolerating tube feeds at 30 cc an hour. Had episode of emesis overnight. 05/22: Remains sedated, orally intubated on mechanical ventilation. 05/23: Remains sedated, orally intubated on mechanical ventilation. Dialyzed yesterday. 05/24: Remains sedated/encephalopathic, orally intubated on mechanical ventilation. Tolerating tube feeds. Awaiting dialysis 05/25: Remains encephalopathic, orally intubated on mechanical ventilation. Off sedation for 2 days now. PEEP decreased to to +7 10 No acute events overnight. For HD today. Afebrile. On PRVC/AC 20, TV 550, PEEP: 6, IT: 1.2 and FIO2 35%. On no sedation. Tolerating tube feeds. Subjective 05/27: Tmax 99.8. Currently 99.1. FiO2 down to 35%. Tolerating tube feeding. Positive BM. MRI brain reveals bilateral lacunar infarcts. Will likely need trach. 05/28: Afebrile. The patient continues on CPAP trials 28/09 FiO2 of 35%, maintaining O2 sat at 97%. Objective Vital Signs Date Time Temp Pulse Resp B/P Pulse Ox O2 Delivery O2 Flow Rate FiO2 05/28/16 14:44 96 35 05/28/16 12:00 99.0 88 22 164/82 Intake and Output 05/27/16 05/27/16 05/28/16 08:00 16:00 00:00 Intake Total 451 ml 580 ml 666 ml Output Total 75 ml 75 ml 125 ml Balance 376 ml 505 ml 541 ml Result Diagram: 05/28/16 1300 05/28/16 1300 Imaging Last Impressions Chest X-Ray 05/27/16 0000 Signed Impressions: Service Date/Time: Friday, May 27, 2016 02:19 - CONCLUSION: No significant change mild left base consolidation or the lines/tubes as above.. Low Johnson MD Brain MRI 05/27/16 0000 Signed Impressions: Service Date/Time: Friday, May 27, 2016 12:17 - CONCLUSION: Multifocal bilateral T2 signal abnormalities in restricted diffusion concerning for bilateral lacunar infarcts. Carlitos Aguirre MD Lower Extremity Ultrasound 05/26/16 0000 Signed Impressions: Service Date/Time: Thursday, May 26, 2016 13:51 - CONCLUSION: New thrombosed right posterior tibial vein. Jonathon Peters MD FACR Upper Extremity Ultrasound 05/25/16 0000 Signed Impressions: Service Date/Time: May 08:56 - CONCLUSION: 1. Occlusive thrombus in the right distal cephalic vein. 2. Nonocclusive thrombus in the left mid and distal basilic veins. Sammy Duran MD Head CT 05/16/16 0000 Signed Impressions: Service Date/Time: Monday, May 16, 2016 08:30 - CONCLUSION: Suspected bilateral basal ganglia calcifications are unchanged. No evidence of hemorrhage, edema, mass or mass effect. Stephen Quintanilla MD Abdomen/Pelvis CT 05/16/16 0000 Signed Impressions: Service Date/Time: Monday, May 16, 2016 08:39 - CONCLUSION: There are large areas of hemorrhage including the left retroperitoneum and psoas muscle, within the mesentery and a smaller area in the right psoas muscle. They don't appear to be related to the abdominal aorta or the internal iliac arteries. There is a small focal collection hemorrhage adjacent to the left external iliac artery as it enters the pelvis, but I don't believe that is related to the large amount of hemorrhage seen elsewhere. The areas of hemorrhage are large and multi-focal. Stephen Quintanilla MD CT Angiography 05/06/16 0000 Signed Impressions: Service Date/Time: Saturday, May 07, 2016 00:04 - CONCLUSION: 1. Lobar consolidation bilaterally in the lower lobes. 2. Negative for pulmonary embolism. Michael Colbert MD Objective Remarks GENERAL: 61-year-old AA male, morbidly obese, intubated, critically ill SKIN: Warm and dry. No rash HEAD: Atraumatic. Normocephalic. EYES: Pupils equal and round around 2-3 mm bilaterally and slightly reactive. No scleral icterus. No injection or drainage. ENT: No nasal bleeding or discharge. Orotracheally intubated NECK: Trachea midline. JVD difficult to assess due to body habitus. Left IJ triple-lumen, right IJ Vas-Cath CARDIOVASCULAR: Distant due to body habitus. Regular rate and rhythm. S1, S2. Without murmur RESPIRATORY: Diminished breath sounds bilaterally due to body habitus. Breath sounds equal bilaterally. On ACV GASTROINTESTINAL: Abdomen obese, non-tender, protuberant, distended. no guarding. MUSCULOSKELETAL: Extremities with trace. NEUROLOGICAL: Patient is encephalopathic, off sedation since morning of 05/23. Pupils are sluggishly reactive. Bilateral lower extremity withdrawal to pain Urinary Catheter: Yes Chaudhry insert reason: Measure Accurate Output A/P Assessment and Plan Neuro/Psych: Bilateral basal ganglia infarcts, small punctate white matter infarcts on MRI Acute toxic metabolic encephalopathy Patient remains encephalopathic. Has been off sedation > [address] Felix. Noted anticoagulation will begin today per Dr. Gallardo' s recommendation, will start Prophylaxis Heparin BID and obtain serial CBC MRI of the brain done 05/16/16 shows small punctate white matter infarcts, bilateral basal ganglia infarcts Repeat MRI brain 05/27 similar Off Seroquel and Haldol due to nonsustained V. tach Head CT 05/08, 05/16: negative acute. EEG 05/12 revealed generalized slowing right greater than left. No epileptiform activity. EEG 05/16: No seizure, severe encephalopathy. CV: Hemorrhagic shock due to left retroperitoneal hemorrhage-shock resolved Severe bradycardia and hypotension 05/17/16 most likely secondary to recurrent bleed Aberrant RCA off LCC Nonsustained V. tach single episode Diastolic heart failure Coronary artery disease Nonischemic cardiomyopathy secondary to hypertensive heart disease Hypertensive emergency Monitor HR and BP keep MAP>65mmHg On Procardia 30mg Q8, Labetalol 400 every 8, d/c Lopressor At hydralazine 25 every 8 As needed hydralazine/labetalol and Nitropaste Status post cardiac catheterization by Dr. Moy. No intervention performed. Known coronary artery artery disease to the first and second diagonals the LAD. Aberrant RCA off left coronary cups. Transfer to fo RCA unroofing once clinically stable Aspirin 81 mg on hold due to RP hemorrhage. (Plavix DC d 05/15/[address] Marcano in anticipation of probable unroofing surgery) Lipitor 20 mg by mouth daily held in light of elevated liver function tests Pulm: Acute hypoxemic respiratory failure-extubated 05/13/16, re intubated 05/16/16 for airway protection Likely underlying STU Right upper lobe mucus plugging On PRVC/AC RR 20, TV 550, IT 1.2, PEEP:6, FIO2 35% Extubated 05/13/16. Reintubated 05/16/16 for airway protection due to severe encephalopathy Continue with vent support keep sat >92% Ventilator bundle Bronchodilator therapy every 4 hours and as needed. SBT daily as tolerated GI: s/p large left retroperitoneal hemorrhage 05/15 Hypoalbuminemia Elevated LFT's Continue Nepro at 50 cc an hour Continue Protonix for GI prophylaxis Colace/Senokot twice a day for bowel regimen, Monitor LFT's..trending down /Renal: Acute kidney failure due to ATN Anuria Chaudhry for accurate I's and O's in a critically ill patient HD started 05/17/16 -3 L Endo: Diabetes mellitus type 2 Hyperglycemia Sliding-scale insulin Accu-Cheks to maintain euglycemia. Medium regimen every 6 hours Heme: s/p Acute blood loss anemia with shock Large left retroperitoneal hemorrhage Right cephalic superficial thrombus left basilic thrombus/right PT THROMBUS Normocytic anemia Leukocytosis Monitor CBC, Heme is following Hematology consulted, recommends against anticoagulation and IVC filter Transfused 3 units PRBC stat on 05/16/16 Transfused 3 units PRBC and 2 units FFP Transfuse 1 unit PRBCs 05/19. Therapeutic Lovenox discontinued, aspirin placed on hold 75 mg IV protamine slow infusion (D/W with Dr. grimes) on 05/16/16. If patient continues to bleed consult IR for possible embolization Was on Lovenox 150 mg subcutaneous twice a day-DCd 05/16/16 Resume DVT prophylaxis heparin twice a day, with serial CBCs ID: Aspiration pneumonia/Enterobacter aerogenes in sputum --05/18 Sputum culture with Enterobacter. Continue with abx per ID (cefepime and Flagyl) Monitor for signs of infections ( Fever, WBC). Pertinent cultures 05/07 - blood cultures 2 - negative 05/08 - sputum - negative 05/08 - urine - negative 05/08 - blood cultures - negative 05/13 - blood cx negative 05/13 - urine cx negative 05/16 - sputum Enterobacter aerogenes 05/16 - urine neg 131 - blood cultures neg 05/18 - blood cultures- negative 05/19 - bronchoscopy - negative MSK: History of spinal stenosis/laminectomy/left total knee replacement and left ring finger amputation PT evaluate and treat Access - Left IJ CVL 05/17. Right IJ venous catheter 05/17. Prophylaxis - GI - Protonix - DVT - ProphylaxisHeparin 5000 BID begun 05/28, SCD on L leg - Doppler US UE: Occlusive thrombus in the right distal cephalic vein. Nonocclusive thrombus in the left mid and distal basilic veins. -Not on therapeutic anticoagulation due to high risk of bleeding D/W patient's and ON SITE MANAGER at bedside and updated re plan of care and she voiced understanding. Critical Care: This patient remains critically ill with one or more organ systems which are or may become a threat to life. I have spent in excess of 37 minutes discontinuously in the care and management of this patient. This time is exclusive of procedures, and includes, but is not limited to, evaluation of the patient, review of the medical record, discussions with family, consultants, nursing staff, or respiratory therapy, and documentation in the medical record. Physician Kim Amaro MD May 28, 2016 16:44
[2016-05-28] MEDS: HEPARIN SODIUM - SQ 10,000 UNITS/ML VIAL SQ SCH (21:11)
[2016-05-28 22:02] LABS: HEMATOCRIT 29.8 % (39.0-51.0); REVIEW FLAG FINAL
[2016-05-29] VITALS (19 sets, daily range): BP systolic 141–181; BP diastolic 78–93; PULSE 79–120; RESP 18–25; TEMP 99–99.7; O2SAT 95–100
[2016-05-29] MEDS: RESP: ALBUTEROL 2.5 MG/IPRATROPIUM 0.5 MG NEB (SCH) NEB ×6 (03:07→23:15)
[2016-05-29] MEDS: RESP: SODIUM CHLORIDE 3% 4 ML NEB NEB SCH ×6 (03:07→23:15)
[2016-05-29] MEDS: CHLORHEXIDINE GLUCONATE 2 % 1 PACK (2 CLOTHS) TOP SCH (04:00)
[2016-05-29 04:20] LABS: HEMATOCRIT 29.5 % (39.0-51.0); MEAN CELL VOLUME 87.6 FL (80.0-100.0); MEAN CORPUSCULAR HEMOGLOBIN 28.6 PG (27.0-34.0); MEAN CORPUSCULAR HGB CONC 32.6 % (32.0-36.0); PLATELET COUNT 323 TH/MM3 (150-450); RED BLOOD COUNT 3.36 MIL/MM3 (4.50-5.90); RED CELL DISTRIBUTION WIDTH 16.9 % (11.6-17.2); REVIEW FLAG FINAL
[2016-05-29 04:38] LABS: BICARBONATE 21.8 MEQ/L (21.0-32.0); MAGNESIUM 2.7 MG/DL (1.5-2.5); POTASSIUM 4.8 MEQ/L (3.5-5.1)
[2016-05-29] MEDS: NIFEdipine 10 MG CAP PO SCH ×3 (06:00→21:42)
[2016-05-29] MEDS: metroNIDAZOLE 500 MG TAB PO SCH ×3 (06:14→21:42)
[2016-05-29] MEDS: LABETALOL HCL 200 MG TAB PO SCH ×3 (06:14→21:42)
[2016-05-29] MEDS: METOCLOPRAMIDE HCL 10 MG/2 ML VIAL IV PUSH SCH ×3 (06:15→21:42)
[2016-05-29] MEDS: INSULIN NovoLIN REGULAR SUPPLEMENTAL SCALE SQ SCH ×4 (06:15→20:28)
[2016-05-29] MEDS: HEPARIN SODIUM - IV 10,000 UNITS/10 ML VIAL PRN (08:17)
[2016-05-29] MEDS: SODIUM CHLOR 0.9% 1000 ML INJ 1,000 ML IV PRN (08:17)
[2016-05-29] MEDS: GENTAMICIN SULFATE (DIALYSIS USE ONLY) 20 MG/2 ML VIAL IV PRN (08:17)
[2016-05-29] MEDS: EPOETIN ALFA 10,000 UNITS/ML VIAL IV PRN (08:18)
[2016-05-29] MEDS: DOCUSATE SODIUM 100 MG CAP PO SCH ×2 (08:58→20:27)
[2016-05-29] MEDS: HEPARIN SODIUM - SQ 10,000 UNITS/ML VIAL SQ SCH (08:59)
[2016-05-29] MEDS: ARTIFICIAL TEARS OPTH SOLN 15 ML BTL EACH EYE SCH ×3 (08:59→17:48)
[2016-05-29] MEDS: SODIUM CHLORIDE 0.9% FLUSH 5 ML FLUSH IV FLUSH SCH ×2 (08:59→20:27)
[2016-05-29] MEDS: CHLORHEXIDINE 0.12% (ORAL KIT) 15 ML CUP MT SCH ×2 (08:59→20:25)
[2016-05-29] MEDS: CEFEPIME 1000 MG/NS 100 ML IV SCH ×4 (08:59→20:26)
--- NOTE | 2016-05-29 10:43 | HHI.NPPN ---
Subjective History of Present Illness 61 year old with ARF, CHF, Respiratory failure Additional Remarks Patient remain intubated and off sedation, remain unresponsive Objective Data Data 05/28/16 05/29/16 19:00 07:00 Intake Total 670 ml 1184 ml Output Total 150 ml 375 ml Balance 520 ml 809 ml IV Total 140 ml 198 ml Tube Feeding 430 ml 866 ml Tube Irrigant 100 ml 120 ml Output Urine Total 150 ml 375 ml # Bowel Movements 3 2 Vital Signs Date Time Temp Pulse Resp B/P Pulse Ox O2 Delivery O2 Flow Rate FiO2 05/29/16 08:00 99.4 79 24 141/78 97 05/29/16 08:00 35 05/29/16 08:00 79 05/29/16 07:30 95 35 05/29/16 07:30 35 05/29/16 06:00 100 05/29/16 04:02 99 35 05/29/16 04:00 35 05/29/16 04:00 99.1 100 22 181/93 99 05/29/16 04:00 100 05/29/16 02:00 101 05/29/16 01:04 98 35 05/29/16 00:00 97 05/29/16 00:00 35 05/29/16 00:00 99.0 97 25 150/84 97 05/28/16 22:01 97 35 05/28/16 22:00 97 05/28/16 20:00 98.7 115 27 156/86 95 05/28/16 20:00 115 05/28/16 20:00 35 05/28/16 19:10 99 35 05/28/16 17:51 97 35 05/28/16 16:00 35 05/28/16 16:00 98.4 78 18 124/68 91 05/28/16 14:44 96 35 05/28/16 12:00 99.0 88 22 164/82 97 05/28/16 12:00 35 05/28/16 11:29 98 35 -: 05/29/16 0350 05/29/16 0350 Physical Exam General Appearance: Obese Neck Neck Exam: Neck Supple Pulmonary Resp Exam: Rhonchi, Decreased Bases, Diminished Breath Sounds, Poor Inspiratory Effort Cardiology CV Exam: Tachycardia Gastrointestinal/Abdomen GI Exam: Soft, Non-Tender, Distended Extremeties Extremities Exam: Moderate Edema, Pitting Edema, Dependent Edema Neurologic Neuro Exam: Unresponsive Assessment/Plan Problem List: (1) Acute renal failure Plan: Patient has oliguric acute renal failure and remains essentially anuric. Continue MWF BUN and Creatinine remain elevated. HD progress noted UF 5 L on 2K/HCO3 Weaning as tolerated. 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 Plan: Cardiology following (4) Acute hypoxemic respiratory failure Plan: On ventilator (5) Hypertensive emergency Plan: BP improved (6) Diabetes mellitus Plan: Continue monitor blood glucose (7) CAD (coronary artery disease) Plan: Presented with STEMI, follow with cardiology (8) Subsequent ST elevation (STEMI) myocardial infarction of anterior wall Plan: Planned transfer to when stable. No intervention performed here. Problem Qualifiers (1) Acute renal failure: Qualified Code: N17.0 - Acute renal failure with tubular necrosis (2) Diabetes mellitus: Qualified Code: E13.8 - Diabetes mellitus of other type with complication, unspecified intermodal customer service insulin use status (3) CAD (coronary artery disease): Qualified Code: I25.10 - Coronary artery disease, angina presence unspecified, unspecified vessel or lesion type, unspecified whether [place] or transplanted heart Linda Mcintosh MD May 29, 2016 10:43
[2016-05-29] MEDS: hydrALAZINE HCL 20 MG/ML VIAL IV PUSH PRN ×2 (12:24→16:18)
[2016-05-29 12:49] LABS: HEMATOCRIT 31.3 % (39.0-51.0); REVIEW FLAG FINAL
--- NOTE | 2016-05-29 12:53 | PD.ONC.PN ---
Subjective Subjective Remarks Afebrile overnight. Remains intubated, sedated. No bleeding. Objective Data Date Time Temp Pulse Resp B/P Pulse Ox O2 Delivery O2 Flow Rate FiO2 05/29/16 12:00 99.5 84 18 176/90 95 05/29/16 12:00 35 05/29/16 11:12 35 05/29/16 11:12 99 35 05/29/16 08:00 99.4 79 24 141/78 97 05/29/16 08:00 35 05/29/16 08:00 79 05/29/16 07:30 95 35 05/29/16 07:30 35 05/29/16 06:00 100 05/29/16 04:02 99 35 05/29/16 04:00 35 05/29/16 04:00 99.1 100 22 181/93 99 05/29/16 04:00 100 05/29/16 02:00 101 05/29/16 01:04 98 35 05/29/16 00:00 97 05/29/16 00:00 35 05/29/16 00:00 99.0 97 25 150/84 97 05/28/16 22:01 97 35 05/28/16 22:00 97 05/28/16 20:00 98.7 115 27 156/86 95 05/28/16 20:00 115 05/28/16 20:00 35 05/28/16 19:10 99 35 05/28/16 17:51 97 35 05/28/16 16:00 35 05/28/16 16:00 98.4 78 18 124/68 91 05/28/16 14:44 96 35 05/29/16 05/29/16 05/29/16 06:59 14:59 22:59 Intake Total 588 ml Output Total 200 ml 5000 ml Balance 388 ml -5000 ml Result Diagram: 05/29/16 03505/29/16 035 Laboratory Results Laboratory Tests Test 05/28/16 05/28/16 05/29/16 13:00 21:05 03:50 White Blood Count 17.3 TH/MM3 17.0 TH/MM3 Red Blood Count 3.50 MIL/MM3 3.36 MIL/MM3 Hemoglobin 10.0 GM/DL 9.7 GM/DL 9.6 GM/DL Hematocrit 30.5 % 29.8 % 29.5 % Mean Corpuscular Volume 87.3 FL 87.6 FL Mean Corpuscular Hemoglobin 28.6 PG 28.6 PG Mean Corpuscular Hemoglobin 32.7 % 32.6 % Concent Red Cell Distribution Width 16.9 % 16.9 % Platelet Count 354 TH/MM3 323 TH/MM3 Mean Platelet Volume 8.7 FL 8.4 FL Neutrophils (%) (Auto) 84.9 % Lymphocytes (%) (Auto) 5.1 % Monocytes (%) (Auto) 7.5 % Eosinophils (%) (Auto) 1.8 % Basophils (%) (Auto) 0.7 % Neutrophils # (Auto) 14.7 TH/MM3 Lymphocytes # (Auto) 0.9 TH/MM3 Monocytes # (Auto) 1.3 TH/MM3 Eosinophils # (Auto) 0.3 TH/MM3 Basophils # (Auto) 0.1 TH/MM3 CBC Comment AUTO DIFF Differential Total Cells 100 Counted Neutrophils % (Manual) 88 % Lymphocytes % 6 % Monocytes % 3 % Neutrophils # (Manual) 15.7 TH/MM3 Metamyelocytes 2 % Myelocytes 1 % Differential Comment FINAL DIFF MANUAL Platelet Estimate NORMAL Platelet Morphology Comment NORMAL Acanthocytes OCC Sodium Level 141 MEQ/L 142 MEQ/L Potassium Level 4.5 MEQ/L 4.8 MEQ/L Chloride Level 102 MEQ/L 102 MEQ/L Carbon Dioxide Level 23.6 MEQ/L 21.8 MEQ/L Anion Gap 15 MEQ/L 18 MEQ/L Blood Urea Nitrogen 161 MG/DL 177 MG/DL Creatinine 9.01 MG/DL 9.56 MG/DL Estimat Glomerular Filtration 7 ML/MIN 7 ML/MIN Rate Random Glucose 259 MG/DL 239 MG/DL Calcium Level 7.7 MG/DL 7.6 MG/DL Phosphorus Level 8.8 MG/DL 9.5 MG/DL Magnesium Level 2.6 MG/DL 2.7 MG/DL Culture Results Microbiology Date/Time Procedure Status Source Growth 05/27/16 18:30 Aerobic Blood Culture - Preliminary Resulted Blood Peripheral NO GROWTH IN 2 DAYS 05/27/16 18:30 Anaerobic Blood Culture - Preliminary Resulted Blood Peripheral NO GROWTH IN 2 DAYS 05/27/16 18:30 Gram Stain - Final Complete Sputum Endotracheal 05/27/16 18:30 Sputum Culture - Final Complete Enterobacter Aerogenes 05/27/16 19:45 Aerobic Blood Culture - Preliminary Resulted Blood Peripheral NO GROWTH IN 2 DAYS 05/27/16 19:45 Anaerobic Blood Culture - Preliminary Resulted Blood Peripheral NO GROWTH IN 2 DAYS Administered Medications Medications (Trade) Dose Ordered Sig/Isabelle Route PRN Reason Start Time Stop Time Status Last Admin Dose Admin IV Flush (NS Flush) 2 ml UNSCH PRN IV FLUSH FLUSH AFTER USING IV ACCESS 05/05/16 17:15 05/24/16 00:59 IV Flush (NS Flush) 2 ml BID IV FLUSH 05/05/16 21:00 05/29/16 08:59 Artificial Tears (Tears Naturale Opth Soln) 1 drop TID EACH EYE 05/05/16 18:00 05/29/16 12:24 Ondansetron HCl (Zofran Inj) 4 mg Q6H PRN IV NAUSEA OR VOMITING 05/05/16 17:15 05/26/16 01:34 Docusate Sodium (Colace) 100 mg BID PO 05/05/16 21:00 05/29/16 08:58 Miscellaneous Information 1 Q361D XX 05/05/16 17:15 05/05/16 17:15 Chlorhexidine Gluconate (Chlorhexidine 2% Cloth) 3 pack Taper DAILY@04 TOP 05/06/16 04:00 05/02/17 03:59 05/29/16 04:00 Aspirin (Aspirin Chew) 81 mg DAILY CHEW 05/06/16 09:00 Hold 05/15/16 08:30 Atorvastatin Calcium (Lipitor) 20 mg DAILY PO 05/06/16 09:00 Hold 05/15/16 08:32 Sennosides (Senokot) 17.2 mg Q12H PO 05/06/16 18:00 Hold 05/26/16 05:37 Insulin Human Regular (NovoLIN R SUPPLEMENTAL SCALE) 1 Q6HR SQ 05/09/16 00:00 05/29/16 12:23 Furosemide (Lasix) 20 mg BID@09,18 PO 05/15/16 18:00 Hold 05/15/16 17:22 Chlorhexidine Gluconate 15 ml 15 ml BID@08,20 MT 05/16/16 20:00 05/29/16 08:59 Sodium Chloride 1,000 ml @ 0 mls/hr Q0M PRN IV For Prime & Rinse Back 05/17/16 12:13 05/29/16 08:17 Sodium Chloride (NS 1000 ml Inj) 1,000 ml @ 200 mls/hr Q5H PRN IV WITH DIALYSIS 05/17/16 12:13 05/17/16 12:28 IV Flush (NS Flush) 5 ml UNSCH PRN IVF WITH DIALYSIS 05/17/16 12:15 05/17/16 12:29 Heparin Sodium (Porcine) (Heparin Inj) UNSCH PRN .XX WITH DIALYSIS 05/17/16 12:15 05/29/16 08:17 Gentamicin Sulfate (Gentamicin (Dialysis) Inj) 20 mg UNSCH PRN IV WITH DIALYSIS 05/17/16 12:15 05/29/16 08:17 Epoetin Adonay 41158 units 10,000 units UNSCH PRN IV WITH DIALYSIS 05/17/16 12:15 05/29/16 08:18 Midazolam HCl 100 ml @ 0 mls/hr TITRATE IV 05/17/16 21:45 05/23/16 00:27 Fentanyl Citrate (fentaNYL DRIP) 250 ml @ 0 mls/hr TITRATE IV 05/18/16 20:00 05/23/16 00:27 Metronidazole (Flagyl) 500 mg Q8HR PO 05/22/16 09:00 05/29/16 06:14 Nifedipine 30 mg 30 mg Q8HR PO 05/25/16 14:00 05/29/16 06:00 Cefepime HCl/ Sodium Chloride (Maxipime Inj/NS Inj) 100 ml @ 200 mls/hr Q12H IV 05/27/16 21:00 05/28/16 21:10 Hydralazine HCl (Apresoline Inj) 10 mg Q1HR PRN IV PUSH SBP>160, DBP>90 05/27/16 18:00 05/29/16 12:24 Labetalol HCl (Trandate Inj) 10 mg Q1HR PRN IV PUSH SBP>160, DBP>90, HR>65 05/27/16 17:30 05/28/16 10:02 Metoclopramide HCl (Reglan Inj) 5 mg Q8HR IV PUSH 05/27/16 22:00 05/29/16 06:15 Labetalol HCl (Trandate) 200 mg Q8HR PO 05/27/16 22:00 05/29/16 06:14 Heparin Sodium (Porcine) (Heparin Inj) 5,000 units Q12HR SQ 05/28/16 21:00 05/29/16 08:59 Objective Remarks GENERAL: Intubated, male, lying in bed, OT intubated. SKIN: Warm and dry. HEAD: Normocephalic. NECK: Supple, trachea midline. CARDIOVASCULAR: +S1/S2. RESPIRATORY: OT intubated on mechanical ventilation. occasional rhonchi, anterior ye GASTROINTESTINAL: Abdomen distended. EXTREMITIES: + anasarca. NEUROLOGICAL: intubated. does not open eyes or withdraw from pain. Assessment/Plan Problem List: (1) Occlusive thrombus Status: Acute Plan: -- US on 05/25/16 shows occlusive thrombus to R distal cephalic vein -- US on 05/18 and 05/26 shows clot to R posterior tibial vein, I spoke with Dr. Peters and he indicated there has been propagation of the clot between 05/18 and (2) Retroperitoneal bleed Status: Acute Plan: -- Lg areas of hemorrhage involving the left peritoneum psoas muscle, the mesentery as well as area adjacent to the left external iliac artery found on CT 05/16 -- Daily CBC -- Repeat CT Abdomen once stable (3) Anemia Status: Acute Plan: -- Transfuse to keep Hgb greater than 8. -- Due to intra-abdominal bleeding. Assessment 62 y/o male who presented to the ED with chest pain and was found to be in acute STEMI. Plan 1. monitor CBC 2. supportive care 3. will start heparin gtt, monitor H/H closely Attending Statement The exam, history, and the medical decision-making described in the above note were completed with the assistance of the mid-level provider. I reviewed and agree with the findings presented. I attest that I had a [id number] encounter with the patient on the same day, and personally performed and documented my assessment and findings in the medical record. remains critically ill. Worsening lower extremity thrombi. High risk for full anticoagulation with history of retroperitoneal bleed. Has multiorgan failure including hepatic failure. Will stop Heparin GTT. Continue prophylactic dose heparin. Will consider IVC filter due to worsening thrombi. Problem Qualifiers (1) Anemia: Cindy Perrin May 29, 2016 12:53 Carmelo Veras MD May 30, 2016 00:13
[2016-05-29] MEDS ORDERED: HEPARIN-D5W INJ 250 ML IV SCH (16:00)
[2016-05-29 16:26] LABS: HEMATOCRIT 30.8 % (39.0-51.0); MEAN CELL VOLUME 87.3 FL (80.0-100.0); MEAN CORPUSCULAR HEMOGLOBIN 28.9 PG (27.0-34.0); MEAN CORPUSCULAR HGB CONC 33.1 % (32.0-36.0); PLATELET COUNT 327 TH/MM3 (150-450); RED BLOOD COUNT 3.52 MIL/MM3 (4.50-5.90); RED CELL DISTRIBUTION WIDTH 17.1 % (11.6-17.2); REVIEW FLAG FINAL; WHITE BLOOD COUNT 16.5 TH/MM3 (4.0-11.0)
[2016-05-29 16:43] LABS: APTT (PATIENT) 29.6 SEC (24.3-30.1); INTERNATIONAL NORMALIZED RATIO 1.3 RATIO
--- NOTE | 2016-05-29 17:48 | HHI.CCPN ---
Subjective Remarks/Hospital Course 61-year-old AA male. Date of admission 05/05/2016. Date of consultation 2016. Past medical history includes hypertensive heart disease, hypertension, diabetes mellitus type 2 and spinal stenosis. He presented to [facility] today with history of acute onset of diaphoresis, chest pain and syncope. Her documentation, Chest pain was 7 out of 10 without radiation. Later in the hospital physician, patient did have ST elevation anterior septal leads. I he had a cardiac catheterization in 2009 which revealed moderate coronary disease which documented 50-60% stenosis in the LAD diagonals 1 and 2. Recommended medical management at that time. Dr. Marcano was notified and proceed to the cardiac catheter lab. Patient sees heparin and one aspirin prior to cardiac catheterization. During heart catheterization,, patient became hypertensive, tachypneic, hypoxic and agitated including abdominal pain with nausea and vomiting. Patient was intubated by Dr. Simon and dispensed transferred to room 505a. Currently hemodynamic stable on a propofol drip. 05/06: Patient required additional sedation overnight. Was moving all 4 extremity spontaneously and strongly. Potassium is replaced overnight along with magnesium. This afternoon approximate 4 PM, patient went into a sinus bradycardia in the 40s. RN cannot locate pulse and possibly went into a PEA arrest. Patient received CPR for approximately 2 minutes. ROSC return immediately. Received 1 mg of epinephrine IV. Blood pressure was 240 systolic. Saturations were above 90% the entire time. Dr. Marcano was made aware. No new recommendations at this time. Electrolytes currently pending. Patient is currently hemodynamic stable and an arterial line/left radial has been placed 05/07: no improvement in delirium or mental status. spiking low grade fevers. 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 CT surgery consulted and declined to operate here: he will need referral once stabilized. fio2 requirements still high. CT chest also with evidence of bibasilar consolidation which may be aspiration pneumonitis vs. pneumonia now that we are 48h out from initial presentation and now spiking fevers. 05/08: delirium persists. continues to spike fevers. jolly cultured yesterday without results yet. holding sedation today. 05/09: delirium slightly improved. waking up on SAT, weakly following commands. cultures still NGTD. hypoxia slightly improved. 05/10: delirium improving. weakly following commands still. cultures still NGTD. fevers persist, although fever curve appears to be improving. hypoxia continues to improve. still remains very critically ill. 05/11: Tmax 99.9. Currently 99.1. Tolerating tube feeding. One bowel movement. Continues to have difficulty weaning ventilator. 05/12: Currently afebrile. Tolerating tube feeding. Positive BM. Increased FiO2 from 45-60%. +1 L. Arousable on sedation vacation and weakly follows commands. 05/13: Remains intubated, sedated. FiO2 now reduced to 45% (was 55% today am). Start weaning trials after starting Precedex. To control BP May use Cardene, given anomalous RCA 05/14: Extubated yesterday, remained on BiPAP overnight. Intermittently agitated. Following commands to me today, while on BiPAP. Remains on Cardene infusion for uncontrolled hypertension. Urine output 4.7 L in 24 hours 05/15: On 3 L nasal cannula. Fever trending down, breathing more comfortably. Able to communicate. Discussed with Dr. Marcano. Dr. Pendleton will be available tomorrow, will probably need transfer to [facility] for RCA unroofing 05/16: Acutely hypotensive overnight with tachycardia. MAP was 55 with greater than 130s. Received 3.5 L of normal saline bolus with improvement in blood pressure and heart rate. Lethargic on BiPAP. ABG pending, HB dropped from 10.9 to 7.8. No obvious source of bleeding. STAT 2U PRBC. STAT CT head and CT abd pelvis. R/O ICH or RP bleed. Patient received only 5mg Nicci at 2100 yesterday, no other sedation. Last dose of Lovenox was at 211, held now 05/17: Developed Hemorrhagic shock from large retroperitoneal hemorrhage night to 05/15/16. Stabilized after 3 units of PRBC and protamine. Hemoglobin 8.7 today. Remain encephalopathy and unresponsive yesterday. MRI 05/16/16 shows small punctate white matter infarcts, bilateral basal ganglia infarcts. Urology consult pending. Antiplatelet drugs on hold. Now with anuria from ATN secondary to shock. Nephrology consult pending 05/18: Developed sudden onset bradycardia in 40s, with acute hypotension yesterday evening around 5 PM. ACLS protocol initiated (did not arrest or lose pulse). Received multiple epinephrine, bicarbonate calcium and fluid boluses. Patient was placed on dopamine 20 mics per KG per minute, Levophed 20 mics per KG per minute, epinephrine 2.5 mics per minute and eventually stabilized with systolic blood pressure reading 120s. Hemoglobin on ABG was 7 and emergently transfused 3 units PRBC and 2 units FFP. Lab hemoglobin came back at 6.8. Patient also was profoundly acidemic with pH of 7.16. Patient received total 3 A of bicarbonate and bicarbonate infusion was started, minute ventilation was also increased. 2: MAXIMUM TEMPERATURE 100.3. Currently 99.5. No bowel movement. Tube feeds were restarted. FiO2 50%. PEEP at 8. 05/20: MAXIMUM TEMPERATURE 100.9. Positive BM. Tube feeds were restarted today. PT plateau. FiO2 down to 85%. Semiemergent bronchoscopy yesterday for right upper lobe airway obstruction. Resolved 05/21: MAXIMUM TEMPERATURE 100.7. Currently 99.6. Somewhat tachycardic. 2 bowel movements overnight. Tolerating tube feeds at 30 cc an hour. Had episode of emesis overnight. 05/22: Remains sedated, orally intubated on mechanical ventilation. 05/23: Remains sedated, orally intubated on mechanical ventilation. Dialyzed yesterday. 05/24: Remains sedated/encephalopathic, orally intubated on mechanical ventilation. Tolerating tube feeds. Awaiting dialysis 05/25: Remains encephalopathic, orally intubated on mechanical ventilation. Off sedation for 2 days now. PEEP decreased to to +7 10 No acute events overnight. For HD today. Afebrile. On PRVC/AC 20, TV 550, PEEP: 6, IT: 1.2 and FIO2 35%. On no sedation. Tolerating tube feeds. Subjective 05/27: Tmax 99.8. Currently 99.1. FiO2 down to 35%. Tolerating tube feeding. Positive BM. MRI brain reveals bilateral lacunar infarcts. Will likely need trach. 05/28: Afebrile. The patient continues on CPAP trials 15/6 FiO2 of 35%, maintaining O2 sat at 97%. 05/29: The patient continues on CPAP trials. The patient underwent hemodialysis today. The patient is noted to be a medium dose sliding scale insulin with persistent hyperglycemia will increase to high-dose insulin sliding scale. Per hematology the patient was placed on heparin infusion initially, then discontinued. Objective Vital Signs Date Time Temp Pulse Resp B/P Pulse Ox O2 Delivery O2 Flow Rate FiO2 05/29/16 16:00 35 05/29/16 16:00 99.5 113 24 143/84 97 Intake and Output 05/28/16 05/28/16 05/29/16 08:00 16:00 00:00 Intake Total 425 ml 670 ml 596 ml Output Total 150 ml 150 ml 175 ml Balance 275 ml 520 ml 421 ml Result Diagram: 05/29/16 1540 05/29/16 0350 Other Results Microbiology Date/Time Procedure Status Source Growth 05/27/16 18:30 Gram Stain - Final Complete Sputum Endotracheal 05/27/16 18:30 Sputum Culture - Final Complete Enterobacter Aerogenes Imaging Last Impressions Chest X-Ray 05/27/16 0000 Signed Impressions: Service Date/Time: Friday, May 27, 2016 02:19 - CONCLUSION: No significant change mild left base consolidation or the lines/tubes as above.. Low Johnson MD Brain MRI 05/27/16 0000 Signed Impressions: Service Date/Time: Friday, May 27, 2016 12:17 - CONCLUSION: Multifocal bilateral T2 signal abnormalities in restricted diffusion concerning for bilateral lacunar infarcts. Carlitos Aguirre MD Lower Extremity Ultrasound 05/26/16 0000 Signed Impressions: Service Date/Time: Thursday, May 26, 2016 13:51 - CONCLUSION: New thrombosed right posterior tibial vein. Jonathon Peters MD FACR Upper Extremity Ultrasound 05/25/16 0000 Signed Impressions: Service Date/Time: May 08:56 - CONCLUSION: 1. Occlusive thrombus in the right distal cephalic vein. 2. Nonocclusive thrombus in the left mid and distal basilic veins. Sammy Duran MD Head CT 05/16/16 0000 Signed Impressions: Service Date/Time: Monday, May 16, 2016 08:30 - CONCLUSION: Suspected bilateral basal ganglia calcifications are unchanged. No evidence of hemorrhage, edema, mass or mass effect. Stephen Quintanilla MD Abdomen/Pelvis CT 05/16/16 0000 Signed Impressions: Service Date/Time: Monday, May 16, 2016 08:39 - CONCLUSION: There are large areas of hemorrhage including the left retroperitoneum and psoas muscle, within the mesentery and a smaller area in the right psoas muscle. They don't appear to be related to the abdominal aorta or the internal iliac arteries. There is a small focal collection hemorrhage adjacent to the left external iliac artery as it enters the pelvis, but I don't believe that is related to the large amount of hemorrhage seen elsewhere. The areas of hemorrhage are large and multi-focal. Stephen Quintanilla MD CT Angiography 05/06/16 0000 Signed Impressions: Service Date/Time: Saturday, May 07, 2016 00:04 - CONCLUSION: 1. Lobar consolidation bilaterally in the lower lobes. 2. Negative for pulmonary embolism. Michael Colbert MD Objective Remarks GENERAL: 61-year-old AA male, morbidly obese, intubated, critically ill SKIN: Warm and dry. No rash HEAD: Atraumatic. Normocephalic. EYES: Pupils equal and round around 2-3 mm bilaterally and slightly reactive. No scleral icterus. No injection or drainage. ENT: No nasal bleeding or discharge. Orotracheally intubated NECK: Trachea midline. JVD difficult to assess due to body habitus. Left IJ triple-lumen, right IJ Vas-Cath CARDIOVASCULAR: Distant due to body habitus. Regular rate and rhythm. S1, S2. Without murmur RESPIRATORY: Diminished breath sounds bilaterally due to body habitus. Breath sounds equal bilaterally. On ACV GASTROINTESTINAL: Abdomen obese, non-tender, protuberant, distended. no guarding. Normoactive bowel sounds MUSCULOSKELETAL: Extremities with 1+ edema NEUROLOGICAL: Patient is encephalopathic, off sedation since morning of 05/23. Pupils are sluggishly reactive. Bilateral lower extremity withdrawal to pain A/P Assessment and Plan Neuro/Psych: Bilateral basal ganglia infarcts, small punctate white matter infarcts on MRI Acute toxic metabolic encephalopathy Patient remains encephalopathic. Has been off sedation > [address] Felix. Therapeutic anticoagulation , initiated today by Hematology . MRI of the brain done 05/16/16 shows small punctate white matter infarcts, bilateral basal ganglia infarcts Repeat MRI brain 05/27 similar Off Seroquel and Haldol due to nonsustained V. tach Head CT 05/08, 05/16: negative acute. EEG 05/12 revealed generalized slowing right greater than left. No epileptiform activity. EEG 05/16: No seizure, severe encephalopathy. Sedation vacation unchanged neuro status CV: Hemorrhagic shock due to left retroperitoneal hemorrhage-shock resolved Severe bradycardia and hypotension 05/17/16 most likely secondary to recurrent bleed Aberrant RCA off LCC Nonsustained V. tach single episode Diastolic heart failure Coronary artery disease Nonischemic cardiomyopathy secondary to hypertensive heart disease Hypertensive emergency Monitor HR and BP keep MAP>65mmHg On Procardia 30mg Q8, Labetalol 400 every 8, d/c Lopressor At hydralazine 25 every 8 As needed hydralazine/labetalol and Nitropaste Status post cardiac catheterization by Dr. Moy. No intervention performed. Known coronary artery artery disease to the first and second diagonals the LAD. Aberrant RCA off left coronary cups. Transfer to fo RCA unroofing once clinically stable Aspirin 81 mg on hold due to RP hemorrhage. (Plavix DC d 05/15/[address] Marcano in anticipation of probable unroofing surgery) Lipitor 20 mg by mouth daily held in light of elevated liver function tests Pulm: Acute hypoxemic respiratory failure-extubated 05/13/16, re intubated 05/16/16 for airway protection Likely underlying STU Right upper lobe mucus plugging On PRVC/AC RR 20, TV 550, IT 1.2, PEEP:6, FIO2 35% Extubated 05/13/16. Reintubated 05/16/16 for airway protection due to severe encephalopathy Continue with vent support keep sat >92% Ventilator bundle Bronchodilator therapy every 4 hours and as needed. SBT daily as tolerated Plan for tracheostomy GI: s/p large left retroperitoneal hemorrhage 05/15 Hypoalbuminemia Elevated LFT's Continue Nepro at 50 cc an hour, minimal residual Continue Protonix for GI prophylaxis Colace/Senokot twice a day for bowel regimen Monitor LFT's /Renal: Acute kidney failure due to ATN Anuria Isidoro for accurate I's and O's in a critically ill patient HD started 05/17/16 , Sunday 5L off today Endo: Diabetes mellitus type 2 Hyperglycemia Sliding-scale insulin Accu-Cheks to maintain euglycemia. Blood glucose level 230's. Changed to high-dose regimen every 6 hours Heme: s/p Acute blood loss anemia with shock Large left retroperitoneal hemorrhage Right cephalic superficial thrombus left basilic thrombus/right PT THROMBUS Normocytic anemia Leukocytosis Monitor CBC, Heme is following Hematology consulted Transfused 3 units PRBC stat on 05/16/16 Transfused 3 units PRBC and 2 units FFP Transfuse 1 unit PRBCs 05/19. Therapeutic Lovenox discontinued, aspirin placed on hold 75 mg IV protamine slow infusion (D/W with Dr. grimes) on 05/16/16. If patient continues to bleed consult IR for possible embolization Was on Lovenox 150 mg subcutaneous twice a day-DCd 05/16/16 Heparin infusion initiated per Hematology ID: Aspiration pneumonia/Enterobacter aerogenes in sputum --2/2 Sputum culture with Enterobacter. Continue with abx per ID (cefepime and Flagyl) Monitor for signs of infections ( Fever, WBC). Pertinent cultures 05/07 - blood cultures 2 - negative 05/08 - sputum - negative 05/08 - urine - negative 05/08 - blood cultures - negative 05/13 - blood cx negative 05/13 - urine cx negative 05/16 - sputum Enterobacter aerogenes 05/16 - urine neg 131 - blood cultures neg 05/18 - blood cultures- negative 05/19 - bronchoscopy - Yeast MSK: History of spinal stenosis/laminectomy/left total knee replacement and left ring finger amputation PT evaluate and treat Access - Left IJ CVL 05/17. Right IJ venous catheter 05/17. Prophylaxis - GI - Protonix - DVT -Heparin infusion (per Hematology), SCD on L leg - Doppler US UE: Occlusive thrombus in the right distal cephalic vein. Nonocclusive thrombus in the left mid and distal basilic veins. D/W patient's and [employer] at bedside. Critical Care: This patient remains critically ill with one or more organ systems which are or may become a threat to life. I have spent in excess of 30 minutes discontinuously in the care and management of this patient. This time is exclusive of procedures, and includes, but is not limited to, evaluation of the patient, review of the medical record, discussions with family, consultants, nursing staff, or respiratory therapy, and documentation in the medical record. Physician Kim Amaro MD May 29, 2016 17:48
[2016-05-29] MEDS ORDERED: GLUCAGON 1 MG/ML VIAL OTHER PRN (18:15)
[2016-05-29 23:10] LABS: HEMATOCRIT 30.5 % (39.0-51.0); REVIEW FLAG FINAL
[2016-05-30] VITALS (19 sets, daily range): BP systolic 147–171; BP diastolic 78–98; PULSE 82–116; RESP 22–25; TEMP 98.7–100.1; O2SAT 95–100
[2016-05-30 00:11] LABS: APTT (PATIENT) 51.1 SEC (24.3-30.1)
[2016-05-30] MEDS: RESP: ALBUTEROL 2.5 MG/IPRATROPIUM 0.5 MG NEB (SCH) NEB ×6 (03:37→23:12)
[2016-05-30] MEDS: RESP: SODIUM CHLORIDE 3% 4 ML NEB NEB SCH ×6 (03:37→23:12)
[2016-05-30] MEDS: CHLORHEXIDINE GLUCONATE 2 % 1 PACK (2 CLOTHS) TOP SCH (03:49)
[2016-05-30] MEDS: metroNIDAZOLE 500 MG TAB PO SCH (05:48)
[2016-05-30] MEDS: LABETALOL HCL 200 MG TAB PO SCH ×3 (05:48→20:52)
[2016-05-30] MEDS: METOCLOPRAMIDE HCL 10 MG/2 ML VIAL IV PUSH SCH ×3 (05:49→20:52)
[2016-05-30] MEDS: NIFEdipine 10 MG CAP PO SCH ×3 (05:49→20:52)
[2016-05-30] MEDS: INSULIN NovoLIN REGULAR SUPPLEMENTAL SCALE SQ SCH ×4 (06:09→20:52)
[2016-05-30 06:12] LABS: BASOPHIL # 0.1 TH/MM3 (0-0.2); BASOPHIL % 0.5 % (0.0-2.0); EOSINOPHIL # 0.2 TH/MM3 (0-0.4); EOSINOPHIL % 1.4 % (0.0-4.0); HEMATOCRIT 31.6 % (39.0-51.0); LYMPH % 6.9 % (9.0-44.0); LYMPHOCYTE # 1.2 TH/MM3 (1.0-4.8); MEAN CELL VOLUME 87.2 FL (80.0-100.0); MEAN CORPUSCULAR HEMOGLOBIN 28.8 PG (27.0-34.0); MEAN CORPUSCULAR HGB CONC 33.1 % (32.0-36.0); MONO % 8.4 % (0.0-8.0); NEUT % 82.8 % (16.0-70.0); PLATELET COUNT 334 TH/MM3 (150-450); RED BLOOD COUNT 3.63 MIL/MM3 (4.50-5.90); RED CELL DISTRIBUTION WIDTH 16.6 % (11.6-17.2); WHITE BLOOD COUNT 16.9 TH/MM3 (4.0-11.0)
[2016-05-30 06:27] LABS: APTT (PATIENT) 27.8 SEC (24.3-30.1)
[2016-05-30 06:31] LABS: BICARBONATE 23.2 MEQ/L (21.0-32.0); MAGNESIUM 2.6 MG/DL (1.5-2.5); POTASSIUM 4.6 MEQ/L (3.5-5.1)
[2016-05-30 06:32] LABS: HEMO FLAGS AUTO DIFF
[2016-05-30 07:45] LABS: SCAN/DIFF AUTO DIFF CONFIRMED
[2016-05-30 07:46] LABS: ACANTHOCYTES OCC (NORMAL); PLATELET ESTIMATE SMEAR NORMAL (NORMAL); PLATELET MORPHOLOGY NORMAL (NORMAL)
[2016-05-30] MEDS: CHLORHEXIDINE 0.12% (ORAL KIT) 15 ML CUP MT SCH ×2 (07:57→19:49)
[2016-05-30] MEDS: DOCUSATE SODIUM 100 MG CAP PO SCH ×2 (08:35→20:50)
[2016-05-30] MEDS: ARTIFICIAL TEARS OPTH SOLN 15 ML BTL EACH EYE SCH ×3 (08:36→17:22)
[2016-05-30] MEDS: HEPARIN SODIUM - SQ 10,000 UNITS/ML VIAL SQ SCH ×2 (08:36→20:50)
[2016-05-30] MEDS: SODIUM CHLORIDE 0.9% FLUSH 5 ML FLUSH IV FLUSH SCH ×2 (08:36→20:50)
[2016-05-30] MEDS: CEFEPIME 1000 MG/NS 100 ML IV SCH ×2 (08:36)
--- NOTE | 2016-05-30 09:44 | HHI.NPPN ---
Subjective History of Present Illness 61 year old with ARF, CHF, Respiratory failure Additional Remarks Patient remain intubated and off sedation, remain unresponsive Objective Data Data 05/29/16 05/30/16 19:00 07:00 Intake Total 525 ml 1367 ml Output Total 5150 ml 275 ml Balance -4625 ml 1092 ml IV Total 75 ml 368 ml Tube Feeding 390 ml 879 ml Tube Irrigant 60 ml 120 ml Output Urine Total 150 ml 275 ml Hemodialysis 5000 ml # Bowel Movements 1 3 Vital Signs Date Time Temp Pulse Resp B/P Pulse Ox O2 Delivery O2 Flow Rate FiO2 05/30/16 08:00 102 05/30/16 08:00 40 05/30/16 08:00 98.7 102 25 147/82 100 05/30/16 07:27 100 40 05/30/16 07:27 40 05/30/16 06:00 104 05/30/16 04:06 100 40 05/30/16 04:00 35 05/30/16 04:00 100.1 104 23 169/87 100 05/30/16 04:00 104 05/30/16 02:00 100 05/30/16 01:02 100 40 05/30/16 00:00 35 05/30/16 00:00 99.8 113 23 148/78 100 05/30/16 00:00 113 05/29/16 22:00 120 05/29/16 20:00 35 05/29/16 20:00 99.7 119 25 157/84 100 05/29/16 20:00 119 05/29/16 19:55 100 40 05/29/16 18:00 90 05/29/16 16:00 35 05/29/16 16:00 99.5 113 24 143/84 97 05/29/16 16:00 113 05/29/16 15:33 95 40 05/29/16 14:00 85 05/29/16 13:01 165/80 05/29/16 12:00 85 05/29/16 12:00 99.5 84 18 176/90 95 05/29/16 12:00 35 05/29/16 11:12 35 05/29/16 11:12 99 35 05/29/16 10:00 81 -: 05/30/16 0550 05/30/16 0550 Physical Exam General Appearance: Obese Neck Neck Exam: Neck Supple Pulmonary Resp Exam: Rhonchi, Decreased Bases, Diminished Breath Sounds, Poor Inspiratory Effort Cardiology CV Exam: Tachycardia Gastrointestinal/Abdomen GI Exam: Soft, Non-Tender, Distended Extremeties Extremities Exam: Moderate Edema, Pitting Edema, Dependent Edema Neurologic Neuro Exam: Unresponsive Assessment/Plan Problem List: (1) Acute renal failure Plan: Patient has oliguric acute renal failure and remains essentially oliguric. Continue MWF BUN and Creatinine remain elevated. 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 Plan: Cardiology following (4) Acute hypoxemic respiratory failure Plan: On ventilator (5) Hypertensive emergency Plan: BP improved (6) Diabetes mellitus Plan: Continue monitor blood glucose (7) CAD (coronary artery disease) Plan: Presented with STEMI, follow with cardiology (8) Subsequent ST elevation (STEMI) myocardial infarction of anterior wall Plan: Planned transfer to when stable. No intervention performed here. 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
--- NOTE | 2016-05-30 11:33 | HHI.IDPN ---
Subjective Subjective Remarks Mr. Short is a 61-year-old male who was admitted on May 05, 2016. Patient's past medical history significant for hypertensive heart disease, hypertension, type 2 diabetes and spinal stenosis. Patient presented to [facility] on the day of admission with history of acute onset of diaphoresis chest pain and syncope. Patient now has retroperitoneal hematoma, IC bleed. ID following for possible sepsis. Overnight events reviewed. On HD. UO low. Not on pressors. No rash No diarrhea Doing good on CPAP trials but not waking up. May need trach and PEG. Patient has frequent BMs but semiformed not diarrhea. On tube feeds. Antibiotics Cefepime IV Flagyl Lines Line sites with no e/o infection Past Medical History reviewed Allergies: Coded Allergies: Penicillin (Verified Allergy, Mild, "I GO CRAZY", 09/01/15) Objective . Vital Signs Date Time Temp Pulse Resp B/P Pulse Ox O2 Delivery O2 Flow Rate FiO2 05/30/16 11:21 100 40 05/30/16 08:00 102 05/30/16 08:00 40 05/30/16 08:00 98.7 102 25 147/82 100 05/30/16 07:27 100 40 05/30/16 07:27 40 05/30/16 06:00 104 05/30/16 04:06 100 40 05/30/16 04:00 35 05/30/16 04:00 100.1 104 23 169/87 100 05/30/16 04:00 104 05/30/16 02:00 100 05/30/16 01:02 100 40 05/30/16 00:00 35 05/30/16 00:00 99.8 113 23 148/78 100 05/30/16 00:00 113 05/29/16 22:00 120 05/29/16 20:00 35 05/29/16 20:00 99.7 119 25 157/84 100 05/29/16 20:00 119 05/29/16 19:55 100 40 05/29/16 18:00 90 05/29/16 16:00 35 05/29/16 16:00 99.5 113 24 143/84 97 05/29/16 16:00 113 05/29/16 15:33 95 40 05/29/16 14:00 85 05/29/16 13:01 165/80 05/29/16 12:00 85 05/29/16 12:00 99.5 84 18 176/90 95 05/29/16 12:00 35 05/29/16 05/29/16 05/30/16 15:00 23:00 07:00 Intake Total 525 ml 610 ml 757 ml Output Total 5150 ml 125 ml 150 ml Balance -4625 ml 485 ml 607 ml IV Total 75 ml 178 ml 190 ml Tube Feeding 390 ml 372 ml 507 ml Tube Irrigant 60 ml 60 ml 60 ml Output Urine Total 150 ml 125 ml 150 ml Hemodialysis 5000 ml # Bowel Movements 1 1 2 . Laboratory Tests Test 05/28/16 05/28/16 05/29/16 05/29/16 13:00 21:05 03:50 12:30 White Blood Count 17.3 TH/MM3 17.0 TH/MM3 Red Blood Count 3.50 MIL/MM3 3.36 MIL/MM3 Hemoglobin 10.0 GM/DL 9.7 GM/DL 9.6 GM/DL 10.3 GM/DL Hematocrit 30.5 % 29.8 % 29.5 % 31.3 % Mean Corpuscular Volume 87.3 FL 87.6 FL Mean Corpuscular Hemoglobin 28.6 PG 28.6 PG Mean Corpuscular Hemoglobin 32.7 % 32.6 % Concent Red Cell Distribution Width 16.9 % 16.9 % Platelet Count 354 TH/MM3 323 TH/MM3 Mean Platelet Volume 8.7 FL 8.4 FL Neutrophils (%) (Auto) 84.9 % Lymphocytes (%) (Auto) 5.1 % Monocytes (%) (Auto) 7.5 % Eosinophils (%) (Auto) 1.8 % Basophils (%) (Auto) 0.7 % Neutrophils # (Auto) 14.7 TH/MM3 Lymphocytes # (Auto) 0.9 TH/MM3 Monocytes # (Auto) 1.3 TH/MM3 Eosinophils # (Auto) 0.3 TH/MM3 Basophils # (Auto) 0.1 TH/MM3 CBC Comment AUTO DIFF Differential Total Cells 100 Counted Neutrophils % (Manual) 88 % Lymphocytes % 6 % Monocytes % 3 % Neutrophils # (Manual) 15.7 TH/MM3 Metamyelocytes 2 % Myelocytes 1 % Differential Comment FINAL DIFF MANUAL Platelet Estimate NORMAL Platelet Morphology Comment NORMAL Acanthocytes OCC Test 05/29/16 05/29/16 05/30/16 15:40 22:30 05:50 White Blood Count 16.5 TH/MM3 16.9 TH/MM3 Red Blood Count 3.52 MIL/MM3 3.63 MIL/MM3 Hemoglobin 10.2 GM/DL 9.9 GM/DL 10.4 GM/DL Hematocrit 30.8 % 30.5 % 31.6 % Mean Corpuscular Volume 87.3 FL 87.2 FL Mean Corpuscular Hemoglobin 28.9 PG 28.8 PG Mean Corpuscular Hemoglobin 33.1 % 33.1 % Concent Red Cell Distribution Width 17.1 % 16.6 % Platelet Count 327 TH/MM3 334 TH/MM3 Mean Platelet Volume 8.5 FL 8.3 FL Neutrophils (%) (Auto) 82.8 % Lymphocytes (%) (Auto) 6.9 % Monocytes (%) (Auto) 8.4 % Eosinophils (%) (Auto) 1.4 % Basophils (%) (Auto) 0.5 % Neutrophils # (Auto) 14.0 TH/MM3 Lymphocytes # (Auto) 1.2 TH/MM3 Monocytes # (Auto) 1.4 TH/MM3 Eosinophils # (Auto) 0.2 TH/MM3 Basophils # (Auto) 0.1 TH/MM3 CBC Comment AUTO DIFF Differential Comment AUTO DIFF CONFIRMED Platelet Estimate NORMAL Platelet Morphology Comment NORMAL Basophilic Stippling FAINT Acanthocytes OCC Laboratory Tests Test 05/28/16 05/29/16 05/30/16 13:00 03:50 05:50 Sodium Level 141 MEQ/L 142 MEQ/L 141 MEQ/L Potassium Level 4.5 MEQ/L 4.8 MEQ/L 4.6 MEQ/L Chloride Level 102 MEQ/L 102 MEQ/L 101 MEQ/L Carbon Dioxide Level 23.6 MEQ/L 21.8 MEQ/L 23.2 MEQ/L Anion Gap 15 MEQ/L 18 MEQ/L 17 MEQ/L Blood Urea Nitrogen 161 MG/DL 177 MG/DL 145 MG/DL Creatinine 9.01 MG/DL 9.56 MG/DL 8.01 MG/DL Estimat Glomerular Filtration 7 ML/MIN 7 ML/MIN 8 ML/MIN Rate Random Glucose 259 MG/DL 239 MG/DL 227 MG/DL Calcium Level 7.7 MG/DL 7.6 MG/DL 7.7 MG/DL Phosphorus Level 8.8 MG/DL 9.5 MG/DL 8.8 MG/DL Magnesium Level 2.6 MG/DL 2.7 MG/DL 2.6 MG/DL Microbiology Date/Time Procedure Status Source Growth 05/27/16 18:30 Aerobic Blood Culture - Preliminary Resulted Blood Peripheral NO GROWTH IN 3 DAYS 05/27/16 18:30 Anaerobic Blood Culture - Preliminary Resulted Blood Peripheral NO GROWTH IN 3 DAYS 05/27/16 18:30 Gram Stain - Final Complete Sputum Endotracheal 05/27/16 18:30 Sputum Culture - Final Complete Enterobacter Aerogenes 05/27/16 19:45 Aerobic Blood Culture - Preliminary Resulted Blood Peripheral NO GROWTH IN 3 DAYS 05/27/16 19:45 Anaerobic Blood Culture - Preliminary Resulted Blood Peripheral NO GROWTH IN 3 DAYS Imaging Last Impressions Chest X-Ray 05/17/16 0600 Signed Impressions: Service Date/Time: Tuesday, May 17, 2016 04:05 - CONCLUSION: No significant change. Minimal basilar atelectasis. Low Johnson MD Head CT 05/16/16 0000 Signed Impressions: Service Date/Time: Monday, May 16, 2016 08:30 - CONCLUSION: Suspected bilateral basal ganglia calcifications are unchanged. No evidence of hemorrhage, edema, mass or mass effect. Stephen Quintanilla MD Brain MRI 05/16/16 0000 Signed Impressions: Service Date/Time: Monday, May 16, 2016 15:46 - CONCLUSION: 1. Small punctate areas of white matter infarction without cortical extension or hemorrhage. There is no significant mass effect. 2. Bilateral basal ganglia infarcts measuring 1 cm Bobby Lamas MD Abdomen/Pelvis CT 05/16/16 0000 Signed Impressions: Service Date/Time: Monday, May 16, 2016 08:39 - CONCLUSION: There are large areas of hemorrhage including the left retroperitoneum and psoas muscle, within the mesentery and a smaller area in the right psoas muscle. They don't appear to be related to the abdominal aorta or the internal iliac arteries. There is a small focal collection hemorrhage adjacent to the left external iliac artery as it enters the pelvis, but I don't believe that is related to the large amount of hemorrhage seen elsewhere. The areas of hemorrhage are large and multi-focal. Stephen Quintanilla MD Upper Extremity Ultrasound 05/10/16 0000 Signed Impressions: Service Date/Time: Tuesday, May 10, 2016 09:44 - CONCLUSION: Occlusive thrombus in the right cephalic vein. Otherwise negative Shahid Sin MD Lower Extremity Ultrasound 05/10/16 0000 Signed Impressions: Service Date/Time: Tuesday, May 10, 2016 09:20 - CONCLUSION: Occlusive thrombus right posterior tibial vein. Otherwise negative with negative left lower extremity Shahid Sin MD CT Angiography 05/06/16 0000 Signed Impressions: Service Date/Time: Saturday, May 07, 2016 00:04 - CONCLUSION: 1. Lobar consolidation bilaterally in the lower lobes. 2. Negative for pulmonary embolism. Michael Colbert MD Physical Exam GENERAL: Obese AAM patient, in no apparent distress. SKIN: No rashes, ecchymoses or lesions. Cool and dry. HEAD: Atraumatic. Normocephalic. No temporal or scalp tenderness. EYES: Pupils equal round and reactive. Extraocular motions intact. No scleral icterus. No injection or drainage. ENT: Large neck, Intubated NECK: Trachea midline. Supple, nontender, no meningeal signs. CARDIOVASCULAR: HS audible. RESPIRATORY: Breath sounds equal bilaterally decreased in the bases. GASTROINTESTINAL: Abdomen soft, non-tender, nondistended. Obese MUSCULOSKELETAL: Extremities without clubbing, cyanosis, or edema. NEUROLOGICAL: Sedated Psych: could not be assessed IV line sites with no e/o infection. Assessment & Plan Remarks Aspiration Pneumonia: Enterobacter cloacae Pneumonia. Possible Central line associated Blood Stream Infection. Acute metabolic encephalopathy Acute resp failure on BiPAP, component of STU Acute kidney injury: prerenal from hemodynamic changes, chronic HTN related. DM2 uncontrolled: stress as additional factor. CAD non ischemic cardiomyopathy Anemia: acute due to Retroperitoneal bleed. Receiving blood transfusions. Recs: DC Cefepime IV and Flagyl Follow clinically off antibiotics. Follow WBC off antibiotics. 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 If any change in clinical condition please call back. Will sign off.\\ d/w . Tracy Mariee MD May 30, 2016 11:32
--- NOTE | 2016-05-30 11:49 | PD.ONC.PN ---
Subjective Subjective Remarks remains critically ill. family bedside no evidence of bleeding. Hb stable LE swelling stable d/w rn Objective Data Date Time Temp Pulse Resp B/P Pulse Ox O2 Delivery O2 Flow Rate FiO2 05/30/16 11:21 100 40 05/30/16 08:00 102 05/30/16 08:00 40 05/30/16 08:00 98.7 102 25 147/82 100 05/30/16 07:27 100 40 05/30/16 07:27 40 05/30/16 06:00 104 05/30/16 04:06 100 40 05/30/16 04:00 35 05/30/16 04:00 100.1 104 23 169/87 100 05/30/16 04:00 104 05/30/16 02:00 100 05/30/16 01:02 100 40 05/30/16 00:00 35 05/30/16 00:00 99.8 113 23 148/78 100 05/30/16 00:00 113 05/29/16 22:00 120 05/29/16 20:00 35 05/29/16 20:00 99.7 119 25 157/84 100 05/29/16 20:00 119 05/29/16 19:55 100 40 05/29/16 18:00 90 05/29/16 16:00 35 05/29/16 16:00 99.5 113 24 143/84 97 05/29/16 16:00 113 05/29/16 15:33 95 40 05/29/16 14:00 85 05/29/16 13:01 165/80 05/29/16 12:00 85 05/29/16 12:00 99.5 84 18 176/90 95 05/29/16 12:00 35 05/30/16 05/30/16 05/30/16 07:00 15:00 23:00 Intake Total 757 ml Output Total 150 ml Balance 607 ml Result Diagram: 05/30/16 0550 05/30/16 0550 Laboratory Results Laboratory Tests Test 05/29/16 05/29/16 05/29/16 05/29/16 12:30 15:40 22:30 22:45 Hemoglobin 10.3 GM/DL 10.2 GM/DL 9.9 GM/DL Hematocrit 31.3 % 30.8 % 30.5 % White Blood Count 16.5 TH/MM3 Red Blood Count 3.52 MIL/MM3 Mean Corpuscular Volume 87.3 FL Mean Corpuscular Hemoglobin 28.9 PG Mean Corpuscular Hemoglobin 33.1 % Concent Red Cell Distribution Width 17.1 % Platelet Count 327 TH/MM3 Mean Platelet Volume 8.5 FL Prothrombin Time 14.0 SEC Prothromb Time International 1.3 RATIO Ratio Activated Partial 29.6 SEC 51.1 SEC Thromboplast Time Test 05/30/16 05:50 White Blood Count 16.9 TH/MM3 Red Blood Count 3.63 MIL/MM3 Hemoglobin 10.4 GM/DL Hematocrit 31.6 % Mean Corpuscular Volume 87.2 FL Mean Corpuscular Hemoglobin 28.8 PG Mean Corpuscular Hemoglobin 33.1 % Concent Red Cell Distribution Width 16.6 % Platelet Count 334 TH/MM3 Mean Platelet Volume 8.3 FL Neutrophils (%) (Auto) 82.8 % Lymphocytes (%) (Auto) 6.9 % Monocytes (%) (Auto) 8.4 % Eosinophils (%) (Auto) 1.4 % Basophils (%) (Auto) 0.5 % Neutrophils # (Auto) 14.0 TH/MM3 Lymphocytes # (Auto) 1.2 TH/MM3 Monocytes # (Auto) 1.4 TH/MM3 Eosinophils # (Auto) 0.2 TH/MM3 Basophils # (Auto) 0.1 TH/MM3 CBC Comment AUTO DIFF Differential Comment AUTO DIFF CONFIRMED Platelet Estimate NORMAL Platelet Morphology Comment NORMAL Basophilic Stippling FAINT Acanthocytes OCC Activated Partial 27.8 SEC Thromboplast Time Sodium Level 141 MEQ/L Potassium Level 4.6 MEQ/L Chloride Level 101 MEQ/L Carbon Dioxide Level 23.2 MEQ/L Anion Gap 17 MEQ/L Blood Urea Nitrogen 145 MG/DL Creatinine 8.01 MG/DL Estimat Glomerular Filtration 8 ML/MIN Rate Random Glucose 227 MG/DL Calcium Level 7.7 MG/DL Phosphorus Level 8.8 MG/DL Magnesium Level 2.6 MG/DL Culture Results Microbiology Date/Time Procedure Status Source Growth 05/27/16 18:30 Aerobic Blood Culture - Preliminary Resulted Blood Peripheral NO GROWTH IN 3 DAYS 05/27/16 18:30 Anaerobic Blood Culture - Preliminary Resulted Blood Peripheral NO GROWTH IN 3 DAYS 05/27/16 18:30 Gram Stain - Final Complete Sputum Endotracheal 05/27/16 18:30 Sputum Culture - Final Complete Enterobacter Aerogenes 2/11/17 19:45 Aerobic Blood Culture - Preliminary Resulted Blood Peripheral NO GROWTH IN 3 DAYS 05/27/16 19:45 Anaerobic Blood Culture - Preliminary Resulted Blood Peripheral NO GROWTH IN 3 DAYS Administered Medications Medications (Trade) Dose Ordered Sig/Isabelle Route PRN Reason Start Time Stop Time Status Last Admin Dose Admin IV Flush (NS Flush) 2 ml UNSCH PRN IV FLUSH FLUSH AFTER USING IV ACCESS 05/05/16 17:15 05/24/16 00:59 IV Flush (NS Flush) 2 ml BID IV FLUSH 05/05/16 21:00 05/30/16 08:36 Artificial Tears (Tears Naturale Opth Soln) 1 drop TID EACH EYE 05/05/16 18:00 05/30/16 08:36 Ondansetron HCl (Zofran Inj) 4 mg Q6H PRN IV NAUSEA OR VOMITING 05/05/16 17:15 05/26/16 01:34 Docusate Sodium (Colace) 100 mg BID PO 05/05/16 21:00 05/30/16 08:35 Miscellaneous Information 1 Q361D XX 05/05/16 17:15 05/05/16 17:15 Chlorhexidine Gluconate (Chlorhexidine 2% Cloth) Taper DAILY@04 TOP 05/06/16 04:00 05/02/17 03:59 05/30/16 03:49 Aspirin (Aspirin Chew) 81 mg DAILY CHEW 05/06/16 09:00 Hold 05/15/16 08:30 Atorvastatin Calcium (Lipitor) 20 mg DAILY PO 05/06/16 09:00 Hold 05/15/16 08:32 Sennosides (Senokot) 17.2 mg Q12H PO 05/06/16 18:00 Hold 05/26/16 05:37 Furosemide (Lasix) 20 mg BID@09,18 PO 05/15/16 18:00 Hold 05/15/16 17:22 Chlorhexidine Gluconate 15 ml 15 ml BID@08,20 MT 05/16/16 20:00 05/30/16 07:57 Sodium Chloride 1,000 ml @ 0 mls/hr Q0M PRN IV For Prime & Rinse Back 05/17/16 12:13 05/29/16 08:17 Sodium Chloride (NS 1000 ml Inj) 1,000 ml @ 200 mls/hr Q5H PRN IV WITH DIALYSIS 05/17/16 12:13 05/17/16 12:28 IV Flush (NS Flush) 5 ml UNSCH PRN IVF WITH DIALYSIS 05/17/16 12:15 05/17/16 12:29 Heparin Sodium (Porcine) (Heparin Inj) UNSCH PRN .XX WITH DIALYSIS 05/17/16 12:15 05/29/16 08:17 Gentamicin Sulfate (Gentamicin (Dialysis) Inj) 20 mg UNSCH PRN IV WITH DIALYSIS 05/17/16 12:15 05/29/16 08:17 Epoetin Adonay 65952 units 10,000 units UNSCH PRN IV WITH DIALYSIS 05/17/16 12:15 05/29/16 08:18 Midazolam HCl 100 ml @ 0 mls/hr TITRATE IV 05/17/16 21:45 05/23/16 00:27 Fentanyl Citrate (fentaNYL DRIP) 250 ml @ 0 mls/hr TITRATE IV 05/18/16 20:00 05/23/16 00:27 Nifedipine (Procardia) 30 mg Q8HR PO 05/25/16 14:00 05/30/16 05:49 Hydralazine HCl (Apresoline Inj) 10 mg Q1HR PRN IV PUSH SBP>160, DBP>90 05/27/16 18:00 05/29/16 16:18 Labetalol HCl (Trandate Inj) 10 mg Q1HR PRN IV PUSH SBP>160, DBP>90, HR>65 05/27/16 17:30 05/28/16 10:02 Metoclopramide HCl (Reglan Inj) 5 mg Q8HR IV PUSH 05/27/16 22:00 05/30/16 05:49 Labetalol HCl (Trandate) 200 mg Q8HR PO 05/27/16 22:00 05/30/16 05:48 Heparin Sodium (Porcine) (Heparin Inj) 5,000 units Q12HR SQ 05/30/16 09:00 05/30/16 08:36 Objective Remarks GENERAL: critically ill. intubated SKIN: Warm and dry. NECK: Supple, trachea midline. No JVD or lymphadenopathy. LYMPHATIC: No adenopathy. CARDIOVASCULAR: Regular rate and rhythm without murmurs. RESPIRATORY: Breath sounds equal bilaterally. No accessory muscle use. GASTROINTESTINAL: Abdomen distended due to obesity EXTREMITIES: No cyanosis, b/l le edema. . Assessment/Plan Problem List: (1) Occlusive thrombus Status: Acute Plan: -- US on 05/25/16 shows occlusive thrombus to R distal cephalic vein -- US on 05/18 and 05/26 shows clot to R posterior tibial vein, I spoke with Dr. Peters and he indicated there has been propagation of the clot between 05/18 and (2) Retroperitoneal bleed Status: Acute Plan: -- Lg areas of hemorrhage involving the left peritoneum psoas muscle, the mesentery as well as area adjacent to the left external iliac artery found on CT 05/16 -- Daily CBC -- Repeat CT Abdomen once stable (3) Anemia Status: Acute Plan: -- Transfuse to keep Hgb greater than 8. -- Due to intra-abdominal bleeding. Assessment 62 y/o male who presented to the ED with chest pain and was found to be in acute STEMI. Plan - Heparin GTT stopped due to high risk for bleeding. Patient had multiorgan failure and recent retroperitoneal bleed with Hb drop - Continue Prophylactic Heparin injection - Will reassess LE thrombi with repeat Doppler if swelling worsens. - Consider IVC filter Problem Qualifiers (1) Anemia: Carmelo Veras MD May 30, 2016 11:49
[2016-05-30] MEDS: LABETALOL HCL 100 MG/20 ML VIAL IV PUSH PRN (18:44)
--- NOTE | 2016-05-30 19:25 | HHI.CCPN ---
Subjective Remarks/Hospital Course 61-year-old AA male. Date of admission 05/05/2016. Date of consultation 2016. Past medical history includes hypertensive heart disease, hypertension, diabetes mellitus type 2 and spinal stenosis. He presented to [place] [facility] today with history of acute onset of diaphoresis, chest pain and syncope. Her documentation, Chest pain was 7 out of 10 without radiation. Later in the hospital physician, patient did have ST elevation anterior septal leads. I he had a cardiac catheterization in 2009 which revealed moderate coronary disease which documented 50-60% stenosis in the LAD diagonals 1 and 2. Recommended medical management at that time. Dr. Marcano was notified and proceed to the cardiac catheter lab. Patient sees heparin and one aspirin prior to cardiac catheterization. During heart catheterization,, patient became hypertensive, tachypneic, hypoxic and agitated including abdominal pain with nausea and vomiting. Patient was intubated by Dr. Simon and dispensed transferred to room 505a. Currently hemodynamic stable on a propofol drip. 05/06: Patient required additional sedation overnight. Was moving all 4 extremity spontaneously and strongly. Potassium is replaced overnight along with magnesium. This afternoon approximate 4 PM, patient went into a sinus bradycardia in the 40s. RN cannot locate pulse and possibly went into a PEA arrest. Patient received CPR for approximately 2 minutes. ROSC return immediately. Received 1 mg of epinephrine IV. Blood pressure was 240 systolic. Saturations were above 90% the entire time. Dr. Marcano was made aware. No new recommendations at this time. Electrolytes currently pending. Patient is currently hemodynamic stable and an arterial line/left radial has been placed 05/07: no improvement in delirium or mental status. spiking low grade fevers. 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 CT surgery consulted and declined to operate here: he will need referral once stabilized. fio2 requirements still high. CT chest also with evidence of bibasilar consolidation which may be aspiration pneumonitis vs. pneumonia now that we are 48h out from initial presentation and now spiking fevers. 05/08: delirium persists. continues to spike fevers. jolly cultured yesterday without results yet. holding sedation today. 05/09: delirium slightly improved. waking up on SAT, weakly following commands. cultures still NGTD. hypoxia slightly improved. 05/10: delirium improving. weakly following commands still. cultures still NGTD. fevers persist, although fever curve appears to be improving. hypoxia continues to improve. still remains very critically ill. 05/11: Tmax 99.9. Currently 99.1. Tolerating tube feeding. One bowel movement. Continues to have difficulty weaning ventilator. 05/12: Currently afebrile. Tolerating tube feeding. Positive BM. Increased FiO2 from 45-60%. +1 L. Arousable on sedation vacation and weakly follows commands. 05/13: Remains intubated, sedated. FiO2 now reduced to 45% (was 55% today am). Start weaning trials after starting Precedex. To control BP May use Cardene, given anomalous RCA 05/14: Extubated yesterday, remained on BiPAP overnight. Intermittently agitated. Following commands to me today, while on BiPAP. Remains on Cardene infusion for uncontrolled hypertension. Urine output 4.7 L in 24 hours 05/15: On 3 L nasal cannula. Fever trending down, breathing more comfortably. Able to communicate. Discussed with Dr. Marcano. Dr. Pendleton will be available tomorrow, will probably need transfer to [facility] for RCA unroofing 05/16: Acutely hypotensive overnight with tachycardia. MAP was 55 with greater than 130s. Received 3.5 L of normal saline bolus with improvement in blood pressure and heart rate. Lethargic on BiPAP. ABG pending, HB dropped from 10.9 to 7.8. No obvious source of bleeding. STAT 2U PRBC. STAT CT head and CT abd pelvis. R/O ICH or RP bleed. Patient received only 5mg Nicci at 2100 yesterday, no other sedation. Last dose of Lovenox was at 211, held now 05/17: Developed Hemorrhagic shock from large retroperitoneal hemorrhage night to 05/15/16. Stabilized after 3 units of PRBC and protamine. Hemoglobin 8.7 today. Remain encephalopathy and unresponsive yesterday. MRI 05/16/16 shows small punctate white matter infarcts, bilateral basal ganglia infarcts. Urology consult pending. Antiplatelet drugs on hold. Now with anuria from ATN secondary to shock. Nephrology consult pending 05/18: Developed sudden onset bradycardia in 40s, with acute hypotension yesterday evening around 5 PM. ACLS protocol initiated (did not arrest or lose pulse). Received multiple epinephrine, bicarbonate calcium and fluid boluses. Patient was placed on dopamine 20 mics per KG per minute, Levophed 20 mics per KG per minute, epinephrine 2.5 mics per minute and eventually stabilized with systolic blood pressure reading 120s. Hemoglobin on ABG was 7 and emergently transfused 3 units PRBC and 2 units FFP. Lab hemoglobin came back at 6.8. Patient also was profoundly acidemic with pH of 7.16. Patient received total 3 A of bicarbonate and bicarbonate infusion was started, minute ventilation was also increased. 2: MAXIMUM TEMPERATURE 100.3. Currently 99.5. No bowel movement. Tube feeds were restarted. FiO2 50%. PEEP at 8. 05/20: MAXIMUM TEMPERATURE 100.9. Positive BM. Tube feeds were restarted today. PT plateau. FiO2 down to 85%. Semiemergent bronchoscopy yesterday for right upper lobe airway obstruction. Resolved 05/21: MAXIMUM TEMPERATURE 100.7. Currently 99.6. Somewhat tachycardic. 2 bowel movements overnight. Tolerating tube feeds at 30 cc an hour. Had episode of emesis overnight. 05/22: Remains sedated, orally intubated on mechanical ventilation. 05/23: Remains sedated, orally intubated on mechanical ventilation. Dialyzed yesterday. 05/24: Remains sedated/encephalopathic, orally intubated on mechanical ventilation. Tolerating tube feeds. Awaiting dialysis 05/25: Remains encephalopathic, orally intubated on mechanical ventilation. Off sedation for 2 days now. PEEP decreased to to +7 /10 No acute events overnight. For HD today. Afebrile. On PRVC/AC 20, TV 550, PEEP: 6, IT: 1.2 and FIO2 35%. On no sedation. Tolerating tube feeds. Subjective 05/27: Tmax 99.8. Currently 99.1. FiO2 down to 35%. Tolerating tube feeding. Positive BM. MRI brain reveals bilateral lacunar infarcts. Will likely need trach. 05/28: Afebrile. The patient continues on CPAP trials / FiO2 of 35%, maintaining O2 sat at 97%. 05/29: The patient continues on CPAP trials. The patient underwent hemodialysis today. The patient is noted to be a medium dose sliding scale insulin with persistent hyperglycemia will increase to high-dose insulin sliding scale. Per hematology the patient was placed on heparin infusion. 05/30 Tmax 100.1. S/P initiation of therapeutic anticoagulation ,serial hemoglobin stable, continue to monitor every 12 hours. Patient continues to fail CPAP trials, plan for tracheostomy, Discussed with patient spouse, she desires a trach and PEG, at this time. Objective Vital Signs Date Time Temp Pulse Resp B/P Pulse Ox O2 Delivery O2 Flow Rate FiO2 05/30/16 18:00 116 05/30/16 16:19 100 40 05/30/16 16:00 99.6 24 147/80 Intake and Output 05/29/16 05/29/16 05/30/16 08:00 16:00 00:00 Intake Total 588 ml 525 ml 610 ml Output Total 200 ml 5150 ml 125 ml Balance 388 ml -4625 ml 485 ml Result Diagram: 05/30/16 0550 05/30/16 0550 Imaging Last Impressions Chest X-Ray 05/27/16 0000 Signed Impressions: Service Date/Time: Friday, May 27, 2016 02:19 - CONCLUSION: No significant change mild left base consolidation or the lines/tubes as above.. Low Johnson MD Brain MRI 05/27/16 0000 Signed Impressions: Service Date/Time: Friday, May 27, 2016 12:17 - CONCLUSION: Multifocal bilateral T2 signal abnormalities in restricted diffusion concerning for bilateral lacunar infarcts. Carlitos Aguirre MD Lower Extremity Ultrasound 05/26/16 0000 Signed Impressions: Service Date/Time: Thursday, May 26, 2016 13:51 - CONCLUSION: New thrombosed right posterior tibial vein. Jonathon Peters MD FACR Upper Extremity Ultrasound 05/25/16 0000 Signed Impressions: Service Date/Time: May 08:56 - CONCLUSION: 1. Occlusive thrombus in the right distal cephalic vein. 2. Nonocclusive thrombus in the left mid and distal basilic veins. Sammy Duran MD Head CT 05/16/16 0000 Signed Impressions: Service Date/Time: Monday, May 16, 2016 08:30 - CONCLUSION: Suspected bilateral basal ganglia calcifications are unchanged. No evidence of hemorrhage, edema, mass or mass effect. Stephen Quintanilla MD Abdomen/Pelvis CT 05/16/16 0000 Signed Impressions: Service Date/Time: Monday, May 16, 2016 08:39 - CONCLUSION: There are large areas of hemorrhage including the left retroperitoneum and psoas muscle, within the mesentery and a smaller area in the right psoas muscle. They don't appear to be related to the abdominal aorta or the internal iliac arteries. There is a small focal collection hemorrhage adjacent to the left external iliac artery as it enters the pelvis, but I don't believe that is related to the large amount of hemorrhage seen elsewhere. The areas of hemorrhage are large and multi-focal. Stephen Quintanilla MD CT Angiography 05/06/16 0000 Signed Impressions: Service Date/Time: Saturday, May 07, 2016 00:04 - CONCLUSION: 1. Lobar consolidation bilaterally in the lower lobes. 2. Negative for pulmonary embolism. Michael Colbert MD Objective Remarks GENERAL: 61-year-old AA male, morbidly obese, intubated, critically ill SKIN: Warm and dry. No rash HEAD: Atraumatic. Normocephalic. EYES: Pupils equal and round around 2-3 mm bilaterally and slightly reactive. No scleral icterus. No injection or drainage. ENT: No nasal bleeding or discharge. Orotracheally intubated NECK: Trachea midline. JVD difficult to assess due to body habitus. Left IJ triple-lumen, right IJ Vas-Cath CARDIOVASCULAR: Distant due to body habitus. Regular rate and rhythm. S1, S2. Without murmur RESPIRATORY: Diminished breath sounds bilaterally due to body habitus. Breath sounds equal bilaterally. On ACV GASTROINTESTINAL: Abdomen obese, non-tender, protuberant, distended. no guarding. Normoactive bowel sounds MUSCULOSKELETAL: Extremities with 1+ edema NEUROLOGICAL: Patient is encephalopathic, off sedation since morning of 05/23. Pupils are sluggishly reactive. Bilateral lower extremity withdrawal to pain A/P Assessment and Plan Neuro/Psych: Bilateral basal ganglia infarcts, small punctate white matter infarcts on MRI Acute toxic metabolic encephalopathy Patient remains encephalopathic. Has been off sedation > [address] Felix. Heparin infusion discontinued by hematology MRI of the brain done 05/16/16 shows small punctate white matter infarcts, bilateral basal ganglia infarcts Repeat MRI brain 05/27 similar Off Seroquel and Haldol due to nonsustained V. tach Head CT 05/08, 05/16: negative acute. EEG 05/12 revealed generalized slowing right greater than left. No epileptiform activity. EEG 05/16: No seizure, severe encephalopathy. Sedation vacation unchanged neuro status CV: Hemorrhagic shock due to left retroperitoneal hemorrhage-shock resolved Severe bradycardia and hypotension 05/17/16 most likely secondary to recurrent bleed Aberrant RCA off LCC Nonsustained V. tach single episode Diastolic heart failure Coronary artery disease Nonischemic cardiomyopathy secondary to hypertensive heart disease Hypertensive emergency Monitor HR and BP keep MAP>65mmHg On Procardia 30mg Q8, Labetalol 400 every 8, d/c Lopressor At hydralazine 25 every 8hrs As needed hydralazine/labetalol and Nitropaste Status post cardiac catheterization by Dr. Moy. No intervention performed. Known coronary artery artery disease to the first and second diagonals the LAD. Aberrant RCA off left coronary cups. Transfer to fo RCA unroofing once clinically stable Aspirin 81 mg on hold due to RP hemorrhage. (Plavix DC d 05/15/[address] Marcano in anticipation of probable unroofing surgery) Lipitor 20 mg by mouth daily held in light of elevated liver function tests Pulm: Acute hypoxemic respiratory failure-extubated 05/13/16, re intubated 05/16/16 for airway protection Likely underlying STU Right upper lobe mucus plugging On PRVC/AC RR 20, TV 550, IT 1.2, PEEP:6, FIO2 35% Extubated 05/13/16. Reintubated 05/16/16 for airway protection due to severe encephalopathy Continue with vent support keep sat >92% Ventilator bundle Bronchodilator therapy every 4 hours and as needed. SBT daily as tolerated Plan for possible tracheostomy- GI: s/p large left retroperitoneal hemorrhage 05/15 Hypoalbuminemia Elevated LFT's Continue Nepro at 50 cc an hour Continue Protonix for GI prophylaxis Colace/Senokot twice a day for bowel regimen, BM x 1 today Monitor LFT's /Renal: Acute kidney failure due to ATN Anuria Isidoro for accurate I's and O's in a critically ill patient HD started 05/17/16 , Sunday Endo: Diabetes mellitus type 2 Hyperglycemia Sliding-scale insulin Accu-Cheks to maintain euglycemia. Blood glucose level 230's.High-dose regimen every 6 hours Heme: s/p Acute blood loss anemia with shock Large left retroperitoneal hemorrhage Right cephalic superficial thrombus left basilic thrombus/right PT THROMBUS Normocytic anemia Leukocytosis Monitor CBC, Heme is following Hematology on board, initiated therapeutic anticoagulation 05/29, and discontinued Transfused 3 units PRBC stat on 05/16/16 Transfused 3 units PRBC and 2 units FFP Transfuse 1 unit PRBCs 05/19. Therapeutic Lovenox discontinued, aspirin placed on hold 75 mg IV protamine slow infusion (D/W with Dr. grimes) on 05/16/16. If patient continues to bleed consult IR for possible embolization Was on Lovenox 150 mg subcutaneous twice a day-DCd 05/16/16 Serial CBCs q 12 hrs ID: Aspiration pneumonia/Enterobacter aerogenes in sputum Leukocytosis --2 Sputum culture with Enterobacter. Continue with abx per ID Dr. Mariee Monitor for signs of infection Pertinent cultures 05/07 - blood cultures 2 - negative 05/08 - sputum - negative 05/08 - urine - negative 05/08 - blood cultures - negative 05/13 - blood cx negative 05/13 - urine cx negative 05/16 - sputum Enterobacter aerogenes 05/16 - urine neg 131 - blood cultures neg 05/18 - blood cultures- negative 05/19 - bronchoscopy - Yeast MSK: History of spinal stenosis/laminectomy/left total knee replacement and left ring finger amputation PT evaluate and treat Access - Left IJ CVL 05/17. Right IJ venous catheter 05/17. Prophylaxis - GI - Protonix - DVT -Will resume Heparin BIDand monitor H&H , SCD on L leg - Doppler US UE: Occlusive thrombus in the right distal cephalic vein. Nonocclusive thrombus in the left mid and distal basilic veins. 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 Critical Care: This patient remains critically ill with one or more organ systems which are or may become a threat to life. I have spent in excess of 33 minutes discontinuously in the care and management of this patient. This time is exclusive of procedures, and includes, but is not limited to, evaluation of the patient, review of the medical record, discussions with family, consultants, nursing staff, or respiratory therapy, and documentation in the medical record. Physician Kim Amaro MD May 30, 2016 19:25
[2016-05-31] VITALS (15 sets, daily range): BP systolic 133–175; BP diastolic 58–96; PULSE 79–123; RESP 20–22; TEMP 99–101.7; O2SAT 96–100
[2016-05-31 00:02] LABS: HEMATOCRIT 30.1 % (39.0-51.0); REVIEW FLAG FINAL
[2016-05-31] MEDS: RESP: SODIUM CHLORIDE 3% 4 ML NEB NEB SCH ×5 (03:33→19:28)
[2016-05-31] MEDS: RESP: ALBUTEROL 2.5 MG/IPRATROPIUM 0.5 MG NEB (SCH) NEB ×3 (03:33→11:35)
[2016-05-31] MEDS: CHLORHEXIDINE GLUCONATE 2 % 1 PACK (2 CLOTHS) TOP SCH (04:00)
[2016-05-31] MEDS: NIFEdipine 10 MG CAP PO SCH ×3 (05:05→20:50)
[2016-05-31] MEDS: LABETALOL HCL 200 MG TAB PO SCH ×3 (05:06→20:48)
[2016-05-31] MEDS: METOCLOPRAMIDE HCL 10 MG/2 ML VIAL IV PUSH SCH ×3 (05:06→20:49)
[2016-05-31 05:53] LABS: BLOOD GAS BASE EXCESS -3.4 mmol/L (-2-2); BLOOD GAS CARBOXYHEMOGLOBIN 2.3 % (0-4); BLOOD GAS HCO3 20 mmol/L (22-26); BLOOD GAS METHEMOGLOBIN 1.3 % (0-2); BLOOD GAS O2 HGB SATURATION 92 % (90-100); BLOOD GAS OXYGEN CONTENT 13.7 Vol % (12.0-20.0); BLOOD GAS PCO2 31 mmHg (38-42); BLOOD GAS PO2 86 mmHg (61-120); BLOOD GAS TOTAL HGB 10.5 G/DL (12.0-16.0); CRITICAL VALUE NO; OXYGEN DEVICE VENTILATOR; TEMP CORR TO 98.6
[2016-05-31 05:54] LABS: DRAW SITE LT RADIAL; FIO2 35 %; NUMBER OF ARTERIAL PUNCTURES 1; STAT NO; ULNAR PULSE PRESENT
[2016-05-31] MEDS: INSULIN NovoLIN REGULAR SUPPLEMENTAL SCALE SQ SCH ×4 (07:00→20:50)
[2016-05-31 07:16] LABS: HEMATOCRIT 30.5 % (39.0-51.0); REVIEW FLAG FINAL
[2016-05-31 07:39] LABS: BICARBONATE 23.6 MEQ/L (21.0-32.0); MAGNESIUM 2.7 MG/DL (1.5-2.5); POTASSIUM 5.1 MEQ/L (3.5-5.1)
[2016-05-31] MEDS: SODIUM CHLOR 0.9% 1000 ML INJ 1,000 ML IV PRN ×2 (08:10→08:11)
[2016-05-31] MEDS: HEPARIN SODIUM - IV 10,000 UNITS/10 ML VIAL PRN (08:11)
[2016-05-31] MEDS: EPOETIN ALFA 10,000 UNITS/ML VIAL IV PRN (08:12)
[2016-05-31] MEDS: GENTAMICIN SULFATE (DIALYSIS USE ONLY) 20 MG/2 ML VIAL IV PRN (08:12)
[2016-05-31] MEDS: SODIUM CHLORIDE 0.9% FLUSH 5 ML FLUSH IVF PRN (08:12)
[2016-05-31] MEDS: DOCUSATE SODIUM 100 MG CAP PO SCH ×2 (08:39→20:50)
[2016-05-31] MEDS: SODIUM CHLORIDE 0.9% FLUSH 5 ML FLUSH IV FLUSH SCH ×2 (08:39→20:51)
[2016-05-31] MEDS: HEPARIN SODIUM - SQ 10,000 UNITS/ML VIAL SQ SCH ×2 (08:39→20:58)
[2016-05-31] MEDS: CHLORHEXIDINE 0.12% (ORAL KIT) 15 ML CUP MT SCH ×2 (08:39→20:48)
[2016-05-31] MEDS: ARTIFICIAL TEARS OPTH SOLN 15 ML BTL EACH EYE SCH ×3 (08:39→17:18)
--- NOTE | 2016-05-31 09:30 | HHI.NPPN ---
Subjective History of Present Illness 61 year old with ARF, CHF, Respiratory failure Additional Remarks Patient remain intubated and off sedation, remain unresponsive Objective Data Data 05/30/16 05/31/16 19:00 07:00 Intake Total 591 ml 469 ml Output Total 250 ml 500 ml Balance 341 ml -31 ml IV Total 137 ml 79 ml Tube Feeding 394 ml 270 ml Tube Irrigant 60 ml 120 ml Output Urine Total 250 ml 500 ml # Bowel Movements 1 Vital Signs Date Time Temp Pulse Resp B/P Pulse Ox O2 Delivery O2 Flow Rate FiO2 05/31/16 07:26 99 35 05/31/16 06:00 84 05/31/16 04:10 99 35 05/31/16 04:00 100.0 79 20 175/96 97 05/31/16 04:00 40 05/31/16 04:00 79 05/31/16 02:00 109 05/31/16 01:04 100 35 05/31/16 00:00 97 05/31/16 00:00 99.9 97 20 144/90 96 05/31/16 00:00 40 05/30/16 22:00 82 05/30/16 21:00 114 171/98 05/30/16 20:00 99.7 114 23 171/95 95 05/30/16 20:00 114 05/30/16 20:00 40 05/30/16 19:17 99 40 05/30/16 18:00 116 05/30/16 16:19 100 40 05/30/16 16:00 40 05/30/16 16:00 99.6 109 24 147/80 98 05/30/16 16:00 109 05/30/16 14:00 102 05/30/16 12:00 40 05/30/16 12:00 102 05/30/16 12:00 99.2 102 22 165/86 100 05/30/16 11:21 100 40 05/30/16 10:00 104 -: 05/31/16 0515 05/31/16 0515 Physical Exam General Appearance: Obese Neck Neck Exam: Neck Supple Pulmonary Resp Exam: Rhonchi, Decreased Bases, Diminished Breath Sounds, Poor Inspiratory Effort Cardiology CV Exam: Tachycardia Gastrointestinal/Abdomen GI Exam: Soft, Non-Tender, Distended Extremeties Extremities Exam: Moderate Edema, Pitting Edema, Dependent Edema Neurologic Neuro Exam: Unresponsive Assessment/Plan Problem List: (1) Acute renal failure Plan: Patient has oliguric acute renal failure and remains essentially oliguric. Continue MWF BUN and Creatinine remain elevated. 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 Plan: Cardiology following (4) Acute hypoxemic respiratory failure Plan: On ventilator (5) Hypertensive emergency Plan: BP improved (6) Diabetes mellitus Plan: Continue monitor blood glucose (7) CAD (coronary artery disease) Plan: Presented with STEMI, follow with cardiology (8) Subsequent ST elevation (STEMI) myocardial infarction of anterior wall Plan: Planned transfer to when stable. No intervention performed here. Problem Qualifiers (1) Acute renal failure: Qualified Code: N17.0 - Acute renal failure with tubular necrosis (2) Diabetes mellitus: Qualified Code: E13.8 - Diabetes mellitus of other type with complication, unspecified long-term insulin use status (3) CAD (coronary artery disease): Qualified Code: I25.10 - Coronary artery disease, angina presence unspecified, unspecified vessel or lesion type, unspecified whether mentasta or transplanted heart Linda Mcintosh MD May 31, 2016 09:30
[2016-05-31] MEDS: ACETAMINOPHEN 650 MG/20.3 ML UDC TUBE PRN (13:40)
--- NOTE | 2016-05-31 14:29 | HHI.CCPN ---
Subjective Remarks/Hospital Course 61-year-old AA male. Date of admission 05/05/2016. Date of consultation 2016. Past medical history includes hypertensive heart disease, hypertension, diabetes mellitus type 2 and spinal stenosis. He presented to [facility] today with history of acute onset of diaphoresis, chest pain and syncope. Her documentation, Chest pain was 7 out of 10 without radiation. Later in the hospital physician, patient did have ST elevation anterior septal leads. I he had a cardiac catheterization in 2009 which revealed moderate coronary disease which documented 50-60% stenosis in the LAD diagonals 1 and 2. Recommended medical management at that time. Dr. Marcano was notified and proceed to the cardiac catheter lab. Patient sees heparin and one aspirin prior to cardiac catheterization. During heart catheterization,, patient became hypertensive, tachypneic, hypoxic and agitated including abdominal pain with nausea and vomiting. Patient was intubated by Dr. Simon and dispensed transferred to room 505a. Currently hemodynamic stable on a propofol drip. 05/06: Patient required additional sedation overnight. Was moving all 4 extremity spontaneously and strongly. Potassium is replaced overnight along with magnesium. This afternoon approximate 4 PM, patient went into a sinus bradycardia in the 40s. RN cannot locate pulse and possibly went into a PEA arrest. Patient received CPR for approximately 2 minutes. ROSC return immediately. Received 1 mg of epinephrine IV. Blood pressure was 240 systolic. Saturations were above 90% the entire time. Dr. Marcano was made aware. No new recommendations at this time. Electrolytes currently pending. Patient is currently hemodynamic stable and an arterial line/left radial has been placed 05/07: no improvement in delirium or mental status. spiking low grade fevers. 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 CT surgery consulted and declined to operate here: he will need referral once stabilized. fio2 requirements still high. CT chest also with evidence of bibasilar consolidation which may be aspiration pneumonitis vs. pneumonia now that we are 48h out from initial presentation and now spiking fevers. 05/08: delirium persists. continues to spike fevers. jolly cultured yesterday without results yet. holding sedation today. 05/09: delirium slightly improved. waking up on SAT, weakly following commands. cultures still NGTD. hypoxia slightly improved. 05/10: delirium improving. weakly following commands still. cultures still NGTD. fevers persist, although fever curve appears to be improving. hypoxia continues to improve. still remains very critically ill. 05/11: Tmax 99.9. Currently 99.1. Tolerating tube feeding. One bowel movement. Continues to have difficulty weaning ventilator. 05/12: Currently afebrile. Tolerating tube feeding. Positive BM. Increased FiO2 from 45-60%. +1 L. Arousable on sedation vacation and weakly follows commands. 05/13: Remains intubated, sedated. FiO2 now reduced to 45% (was 55% today am). Start weaning trials after starting Precedex. To control BP May use Cardene, given anomalous RCA 05/14: Extubated yesterday, remained on BiPAP overnight. Intermittently agitated. Following commands to me today, while on BiPAP. Remains on Cardene infusion for uncontrolled hypertension. Urine output 4.7 L in 24 hours 05/15: On 3 L nasal cannula. Fever trending down, breathing more comfortably. Able to communicate. Discussed with Dr. Marcano. Dr. Pendleton will be available tomorrow, will probably need transfer to [facility] for RCA unroofing 05/16: Acutely hypotensive overnight with tachycardia. MAP was 55 with greater than 130s. Received 3.5 L of normal saline bolus with improvement in blood pressure and heart rate. Lethargic on BiPAP. ABG pending, HB dropped from 10.9 to 7.8. No obvious source of bleeding. STAT 2U PRBC. STAT CT head and CT abd pelvis. R/O ICH or RP bleed. Patient received only 5mg Nicci at 2100 yesterday, no other sedation. Last dose of Lovenox was at 211, held now 05/17: Developed Hemorrhagic shock from large retroperitoneal hemorrhage night to 05/15/16. Stabilized after 3 units of PRBC and protamine. Hemoglobin 8.7 today. Remain encephalopathy and unresponsive yesterday. MRI 05/16/16 shows small punctate white matter infarcts, bilateral basal ganglia infarcts. Urology consult pending. Antiplatelet drugs on hold. Now with anuria from ATN secondary to shock. Nephrology consult pending 05/18: Developed sudden onset bradycardia in 40s, with acute hypotension yesterday evening around 5 PM. ACLS protocol initiated (did not arrest or lose pulse). Received multiple epinephrine, bicarbonate calcium and fluid boluses. Patient was placed on dopamine 20 mics per KG per minute, Levophed 20 mics per KG per minute, epinephrine 2.5 mics per minute and eventually stabilized with systolic blood pressure reading 120s. Hemoglobin on ABG was 7 and emergently transfused 3 units PRBC and 2 units FFP. Lab hemoglobin came back at 6.8. Patient also was profoundly acidemic with pH of 7.16. Patient received total 3 A of bicarbonate and bicarbonate infusion was started, minute ventilation was also increased. 2: MAXIMUM TEMPERATURE 100.3. Currently 99.5. No bowel movement. Tube feeds were restarted. FiO2 50%. PEEP at 8. 05/20: MAXIMUM TEMPERATURE 100.9. Positive BM. Tube feeds were restarted today. PT plateau. FiO2 down to 85%. Semiemergent bronchoscopy yesterday for right upper lobe airway obstruction. Resolved 05/21: MAXIMUM TEMPERATURE 100.7. Currently 99.6. Somewhat tachycardic. 2 bowel movements overnight. Tolerating tube feeds at 30 cc an hour. Had episode of emesis overnight. 05/22: Remains sedated, orally intubated on mechanical ventilation. 05/23: Remains sedated, orally intubated on mechanical ventilation. Dialyzed yesterday. 05/24: Remains sedated/encephalopathic, orally intubated on mechanical ventilation. Tolerating tube feeds. Awaiting dialysis 05/25: Remains encephalopathic, orally intubated on mechanical ventilation. Off sedation for 2 days now. PEEP decreased to to +7 /10 No acute events overnight. For HD today. Afebrile. On PRVC/AC 20, TV 550, PEEP: 6, IT: 1.2 and FIO2 35%. On no sedation. Tolerating tube feeds. Subjective 05/27: Tmax 99.8. Currently 99.1. FiO2 down to 35%. Tolerating tube feeding. Positive BM. MRI brain reveals bilateral lacunar infarcts. Will likely need trach. 05/28: Afebrile. The patient continues on CPAP trials / FiO2 of 35%, maintaining O2 sat at 97%. 05/29: The patient continues on CPAP trials. The patient underwent hemodialysis today. The patient is noted to be a medium dose sliding scale insulin with persistent hyperglycemia will increase to high-dose insulin sliding scale. Per hematology the patient was placed on heparin infusion. 05/30 Tmax 100.1. S/P initiation of therapeutic anticoagulation ,serial hemoglobin stable, continue to monitor every 12 hours. Patient continues to fail CPAP trials, plan for tracheostomy, Discussed with patient spouse, she desires a trach and PEG, at this time. 05/31 Tmax 100.1. Maintaining CPAP trials occasionally 3-4 hours. Discussed with family risk and benefits of tracheostomy. Discussed with family MRI results, EEG results. Family requests continue aggressive support. Plan for percutaneous tracheostomy . GI consulted for PEG placement. Objective Vital Signs Date Time Temp Pulse Resp B/P Pulse Ox O2 Delivery O2 Flow Rate FiO2 05/31/16 11:37 96 35 05/31/16 06:00 84 05/31/16 04:00 100.0 20 175/96 Intake and Output 05/30/16 05/30/16 05/31/16 08:00 16:00 00:00 Intake Total 757 ml 591 ml 270 ml Output Total 150 ml 250 ml 250 ml Balance 607 ml 341 ml 20 ml Result Diagram: 05/31/16 0515 05/31/16 0515 Other Results Laboratory Tests Test 05/31/16 05:50 Blood Gas Puncture Site LT RADIAL Blood Gas Patient Temperature 98.6 Blood Gas HCO3 20 mmol/L (22-26) Blood Gas Base Excess -3.4 mmol/L (-2-2) Blood Gas Oxygen Saturation 92 % (90-100) Arterial Blood pH 7.43 (7.380-7.420) Arterial Blood Partial 31 mmHg (38-42) Pressure CO2 Arterial Blood Partial 86 mmHg Pressure O2 (61-120) Arterial Blood Oxygen Content 13.7 Vol % (12.0-20.0) Arterial Blood 2.3 % (0-4) Carboxyhemoglobin Arterial Blood Methemoglobin 1.3 % (0-2) Blood Gas Hemoglobin 10.5 G/DL (12.0-16.0) Oxygen Delivery Device VENTILATOR Blood Gas Ventilator Setting Blood Gas Inspired Oxygen 35 % Imaging Last Impressions Chest X-Ray 05/27/16 0000 Signed Impressions: Service Date/Time: Friday, May 27, 2016 02:19 - CONCLUSION: No significant change mild left base consolidation or the lines/tubes as above.. Low Johnson MD Brain MRI 05/27/16 0000 Signed Impressions: Service Date/Time: Friday, May 27, 2016 12:17 - CONCLUSION: Multifocal bilateral T2 signal abnormalities in restricted diffusion concerning for bilateral lacunar infarcts. Carlitos Aguirre MD Lower Extremity Ultrasound 05/26/16 0000 Signed Impressions: Service Date/Time: Thursday, May 26, 2016 13:51 - CONCLUSION: New thrombosed right posterior tibial vein. Jonathon Peters MD FACR Upper Extremity Ultrasound 05/25/16 0000 Signed Impressions: Service Date/Time: May 08:56 - CONCLUSION: 1. Occlusive thrombus in the right distal cephalic vein. 2. Nonocclusive thrombus in the left mid and distal basilic veins. Sammy Duran MD Head CT 05/16/16 0000 Signed Impressions: Service Date/Time: Monday, May 16, 2016 08:30 - CONCLUSION: Suspected bilateral basal ganglia calcifications are unchanged. No evidence of hemorrhage, edema, mass or mass effect. Stephen Quintanilla MD Abdomen/Pelvis CT 05/16/16 0000 Signed Impressions: Service Date/Time: Monday, May 16, 2016 08:39 - CONCLUSION: There are large areas of hemorrhage including the left retroperitoneum and psoas muscle, within the mesentery and a smaller area in the right psoas muscle. They don't appear to be related to the abdominal aorta or the internal iliac arteries. There is a small focal collection hemorrhage adjacent to the left external iliac artery as it enters the pelvis, but I don't believe that is related to the large amount of hemorrhage seen elsewhere. The areas of hemorrhage are large and multi-focal. Stephen Quintanilla MD CT Angiography 05/06/16 0000 Signed Impressions: Service Date/Time: Saturday, May 07, 2016 00:04 - CONCLUSION: 1. Lobar consolidation bilaterally in the lower lobes. 2. Negative for pulmonary embolism. Michael Colbert MD Objective Remarks GENERAL: 61-year-old AA male, morbidly obese, intubated, critically ill SKIN: Warm and dry. No rash HEAD: Atraumatic. Normocephalic. EYES: Pupils equal and round around 2-3 mm bilaterally and slightly reactive. No scleral icterus. No injection or drainage. ENT: No nasal bleeding or discharge. Orotracheally intubated NECK: Trachea midline. JVD difficult to assess due to body habitus. Left IJ triple-lumen, right IJ Vas-Cath CARDIOVASCULAR: Distant due to body habitus. Regular rate and rhythm. S1, S2. Without murmur RESPIRATORY: Diminished breath sounds bilaterally due to body habitus. Breath sounds equal bilaterally. On ACV GASTROINTESTINAL: Abdomen obese, non-tender, protuberant, distended. no guarding. Normoactive bowel sounds MUSCULOSKELETAL: Extremities with 1+ edema NEUROLOGICAL: Patient is encephalopathic, off sedation since morning of 05/23. Pupils are sluggishly reactive. Bilateral lower extremity withdrawal to pain. Corneal reflex, gag reflex Procedures Percutaneous Tracheostomy in am A/P Assessment and Plan Neuro/Psych: Bilateral basal ganglia infarcts, small punctate white matter infarcts on MRI Acute toxic metabolic encephalopathy Patient remains encephalopathic. Has been off sedation > [address] Felix, following MRI of the brain done 05/16/16 shows small punctate white matter infarcts, bilateral basal ganglia infarcts Repeat MRI brain 05/27 similar Off Seroquel and Haldol due to nonsustained V. tach Head CT 05/08, 05/16: negative acute. EEG 05/12 revealed generalized slowing right greater than left. No epileptiform activity. EEG 05/16: No seizure, severe encephalopathy. Sedation vacation unchanged neuro status CV: Hemorrhagic shock due to left retroperitoneal hemorrhage-shock resolved Severe bradycardia and hypotension 05/17/16 most likely secondary to recurrent bleed Aberrant RCA off LCC Nonsustained V. tach single episode Diastolic heart failure Coronary artery disease Nonischemic cardiomyopathy secondary to hypertensive heart disease Hypertensive emergency Monitor HR and BP keep MAP>65mmHg On Procardia 30mg Q8, Labetalol 400 every 8, d/c Lopressor Hydralazine 25 every 8hrs As needed hydralazine/labetalol and Nitropaste Status post cardiac catheterization by Dr. Moy. No intervention performed. Known coronary artery artery disease to the first and second diagonals the LAD. Aberrant RCA off left coronary cups. Transfer to fo RCA unroofing once clinically stable Aspirin 81 mg on hold due to RP hemorrhage. (Plavix DC d 05/15/[address] Marcano in anticipation of probable unroofing surgery) Lipitor 20 mg by mouth daily held in light of elevated liver function tests 05/30 Short run 8-9 beats V-tach last evening with resolution, no intervention Pulm: Acute hypoxemic respiratory failure-extubated 05/13/16, re intubated 05/16/16 for airway protection Likely underlying STU Right upper lobe mucus plugging On PRVC/AC RR 20, TV 550, IT 1.2, PEEP:6, FIO2 35% Extubated 05/13/16. Reintubated 05/16/16 for airway protection due to severe encephalopathy Continue with vent support keep sat >92% Ventilator bundle Bronchodilator therapy every 4 hours and as needed. SBT daily as tolerated Plan for percutaneous tracheostomy tomorrow, risk and benefits explained to patient's family, consultants obtained GI: S/P large left retroperitoneal hemorrhage 05/15 Hypoalbuminemia Elevated LFT's Continue Nepro at 50 cc an hour Continue Protonix for GI prophylaxis Colace/Senokot twice a day for bowel regimen Monitor LFT's /Renal: Acute kidney failure due to ATN Anuria Chaudhry for accurate I's and O's in a critically ill patient HD started 05/17/16 , Sunday Endo: Diabetes mellitus type 2 Hyperglycemia Sliding-scale insulin Accu-Cheks to maintain euglycemia. High-dose regimen every 6 hours Heme: s/p Acute blood loss anemia with shock Large left retroperitoneal hemorrhage Right cephalic superficial thrombus left basilic thrombus/right PT THROMBUS Normocytic anemia Leukocytosis Monitor CBC, Heme is following Hematology on board, initiated therapeutic anticoagulation 05/29 Hold Heparin 6 hours prior to tracheostomy procedure Transfused 3 units PRBC stat on 05/16/16 Transfused 3 units PRBC and 2 units FFP Transfuse 1 unit PRBCs 05/19. Therapeutic Lovenox discontinued, aspirin placed on hold 75 mg IV protamine slow infusion (D/W with Dr. grimes) on 05/16/16. If patient continues to bleed consult IR for possible embolization Was on Lovenox 150 mg subcutaneous twice a day-DCd 05/16/16 Serial CBCs q 12 hrs ID: Aspiration pneumonia/Enterobacter aerogenes in sputum Leukocytosis --2/2 Sputum culture with Enterobacter. Continue with abx per ID Dr. Mariee Monitor for signs of infection Pertinent cultures 05/07 - blood cultures 2 - negative 05/08 - sputum - negative 05/08 - urine - negative 05/08 - blood cultures - negative 05/13 - blood cx negative 05/13 - urine cx negative 05/16 - sputum Enterobacter aerogenes 05/16 - urine neg 131 - blood cultures neg 05/18 - blood cultures- negative 05/19 - bronchoscopy - Yeast MSK: History of spinal stenosis/laminectomy/left total knee replacement and left ring finger amputation PT evaluate and treat Access - Left IJ CVL 05/17. Right IJ venous catheter 05/17. Prophylaxis - GI - Protonix - DVT -Heparin 5000 SQ BID, SCD on L leg - Doppler US UE: Occlusive thrombus in the right distal cephalic vein. Nonocclusive thrombus in the left mid and distal basilic veins. D/W patient's and CARD TABLE ATTENDANT at bedside. Critical Care: This patient remains critically ill with one or more organ systems which are or may become a threat to life. I have spent in excess of 42 minutes discontinuously in the care and management of this patient. This time is exclusive of procedures, and includes, but is not limited to, evaluation of the patient, review of the medical record, discussions with family, consultants, nursing staff, or respiratory therapy, and documentation in the medical record. Physician Kim Amaro MD May 31, 2016 14:29
[2016-05-31 16:39] LABS: BICARBONATE 25.8 MEQ/L (21.0-32.0); MAGNESIUM 2.3 MG/DL (1.5-2.5)
[2016-05-31 16:40] LABS: POTASSIUM 4.4 MEQ/L (3.5-5.1)
[2016-05-31] MEDS ORDERED: METOPROLOL TARTRATE 5 MG/5 ML VIAL ONE (17:27)
[2016-05-31] MEDS ORDERED: METOPROLOL TARTRATE 5 MG/5 ML VIAL IV PUSH ONE (17:45)
[2016-05-31 21:59] LABS: HEMATOCRIT 30.8 % (39.0-51.0); REVIEW FLAG FINAL
[2016-05-31 22:02] LABS: BACTERIA, URINE OCC /hpf; BLOOD, URINE LARGE (NEG); GLUCOSE,URINE NEG (NEG); KETONE, URINE NEG (NEG); MUCUS URINE FEW /lpf (OCC); NITRITE,URINE NEG (NEG); SQUAMOUS EPITHELIAL CELL URINE 1 /hpf (0-5)
[2016-05-31 22:03] LABS: COMMENT (UR) CATH-CULTURE IND; CULTURE IF INDICATED CATH CULTURE IND; URINE COLOR LIGHT-RED (YELLW/STRAW)
--- NOTE | 2016-05-31 22:40 | PD.ONC.PN ---
Subjective Subjective Remarks intubated and critically ill no bleeding leg swelling stable d/w rn Objective Data Date Time Temp Pulse Resp B/P Pulse Ox O2 Delivery O2 Flow Rate FiO2 05/31/16 19:28 99 35 05/31/16 18:05 99 35 05/31/16 16:00 40 05/31/16 16:00 100.5 87 22 133/71 100 05/31/16 12:00 40 05/31/16 12:00 100.1 92 22 156/96 99 05/31/16 11:37 96 35 05/31/16 08:00 99.0 81 21 157/58 98 05/31/16 08:00 40 05/31/16 07:26 99 35 05/31/16 06:00 84 05/31/16 04:10 99 35 05/31/16 04:00 100.0 79 20 175/96 97 05/31/16 04:00 40 05/31/16 04:00 79 05/31/16 02:00 109 05/31/16 01:04 100 35 05/31/16 00:00 97 05/31/16 00:00 99.9 97 20 144/90 96 05/31/16 00:00 40 05/31/16 05/31/16 05/31/16 07:00 15:00 23:00 Intake Total 199 ml 480 ml Output Total 250 ml 150 ml Balance -51 ml 330 ml Result Diagram: 05/31/16204905/31/16 1400 Laboratory Results Laboratory Tests Test 05/30/16 05/31/16 05/31/16 05/31/16 23:00 05:15 05:50 14:00 Hemoglobin 9.7 GM/DL 9.8 GM/DL Hematocrit 30.1 % 30.5 % Sodium Level 140 MEQ/L 142 MEQ/L Potassium Level 5.1 MEQ/L 4.4 MEQ/L Chloride Level 98 MEQ/L 101 MEQ/L Carbon Dioxide Level 23.6 MEQ/L 25.8 MEQ/L Anion Gap 18 MEQ/L 15 MEQ/L Blood Urea Nitrogen 163 MG/DL 117 MG/DL Creatinine 8.81 MG/DL 6.56 MG/DL Estimat Glomerular Filtration 8 ML/MIN 11 ML/MIN Rate Random Glucose 134 MG/DL 198 MG/DL Calcium Level 7.5 MG/DL 7.8 MG/DL Phosphorus Level 10.7 MG/DL 8.2 MG/DL Magnesium Level 2.7 MG/DL 2.3 MG/DL Blood Gas Puncture Site LT RADIAL Blood Gas Patient Temperature 98.6 Blood Gas HCO3 20 mmol/L Blood Gas Base Excess -3.4 mmol/L Blood Gas Oxygen Saturation 92 % Arterial Blood pH 7.43 Arterial Blood Partial 31 mmHg Pressure CO2 Arterial Blood Partial 86 mmHg Pressure O2 Arterial Blood Oxygen Content 13.7 Vol % Arterial Blood 2.3 % Carboxyhemoglobin Arterial Blood Methemoglobin 1.3 % Blood Gas Hemoglobin 10.5 G/DL Oxygen Delivery Device VENTILATOR Blood Gas Ventilator Setting Blood Gas Inspired Oxygen 35 % Test 05/31/16 05/31/16 17:46 20:50 Urine Color LIGHT-RED Urine Turbidity HAZY Urine pH 6.0 Urine Specific [place] 1.023 Urine Protein 300 mg/dL Urine Glucose (UA) NEG mg/dL Urine Ketones NEG mg/dL Urine Occult Blood LARGE Urine Nitrite NEG Urine Bilirubin NEG Urine Urobilinogen LESS THAN 2.0 MG/DL Urine Leukocyte Esterase LARGE Urine RBC 21 /hpf Urine WBC 27 /hpf Urine WBC Clumps RARE Urine Squamous Epithelial 1 /hpf Cells Urine Bacteria OCC /hpf Urine Mucus FEW /lpf Urine Yeast (Budding) MOD Microscopic Urinalysis Comment CATH-CULTURE IND Hemoglobin 9.9 GM/DL Hematocrit 30.8 % Culture Results Microbiology Date/Time Procedure Status Source Growth 05/31/16 17:46 Aerobic Blood Culture Received Blood Peripheral Pending 05/31/16 17:46 Anaerobic Blood Culture Received Blood Peripheral Pending 05/31/16 17:46 Gram Stain Received Sputum Endotracheal Pending 05/31/16 17:46 Sputum Culture Received Sputum Endotracheal Pending 05/31/16 17:46 Urine Culture Received Urine Catheterized Urine Pending Administered Medications Medications (Trade) Dose Ordered Sig/Isabelle Route PRN Reason Start Time Stop Time Status Last Admin Dose Admin IV Flush (NS Flush) 2 ml UNSCH PRN IV FLUSH FLUSH AFTER USING IV ACCESS 05/05/16 17:15 05/24/16 00:59 IV Flush (NS Flush) 2 ml BID IV FLUSH 05/05/16 21:00 05/31/16 20:51 Artificial Tears (Tears Naturale Opth Soln) 1 drop TID EACH EYE 05/05/16 18:00 05/31/16 17:18 Ondansetron HCl (Zofran Inj) 4 mg Q6H PRN IV NAUSEA OR VOMITING 05/05/16 17:15 05/26/16 01:34 Docusate Sodium (Colace) 100 mg BID PO 05/05/16 21:00 05/30/16 08:35 Miscellaneous Information 1 Q361D XX 05/05/16 17:15 05/05/16 17:15 Chlorhexidine Gluconate (Chlorhexidine 2% Cloth) Taper DAILY@04 TOP 05/06/16 04:00 05/02/17 03:59 05/30/16 03:49 Aspirin (Aspirin Chew) 81 mg DAILY CHEW 05/06/16 09:00 Hold 05/15/16 08:30 Atorvastatin Calcium (Lipitor) 20 mg DAILY PO 05/06/16 09:00 Hold 05/15/16 08:32 Sennosides (Senokot) 17.2 mg Q12H PO 05/06/16 18:00 Hold 05/26/16 05:37 Furosemide (Lasix) 20 mg BID@09,18 PO 05/15/16 18:00 Hold 05/15/16 17:22 Chlorhexidine Gluconate 15 ml 15 ml BID@08,20 MT 05/16/16 20:00 05/31/16 20:48 Sodium Chloride 1,000 ml @ 0 mls/hr Q0M PRN IV For Prime & Rinse Back 05/17/16 12:13 05/31/16 08:10 Sodium Chloride (NS 1000 ml Inj) 1,000 ml @ 200 mls/hr Q5H PRN IV WITH DIALYSIS 05/17/16 12:13 05/31/16 08:11 IV Flush (NS Flush) 5 ml UNSCH PRN IVF WITH DIALYSIS 05/17/16 12:15 05/31/16 08:12 Heparin Sodium (Porcine) (Heparin Inj) UNSCH PRN .XX WITH DIALYSIS 05/17/16 12:15 05/31/16 08:11 Gentamicin Sulfate (Gentamicin (Dialysis) Inj) 20 mg UNSCH PRN IV WITH DIALYSIS 05/17/16 12:15 05/31/16 08:12 Epoetin Adonay 10371 units 10,000 units UNSCH PRN IV WITH DIALYSIS 05/17/16 12:15 05/31/16 08:12 Midazolam HCl 100 ml @ 0 mls/hr TITRATE IV 05/17/16 21:45 05/23/16 00:27 Fentanyl Citrate (fentaNYL DRIP) 250 ml @ 0 mls/hr TITRATE IV 05/18/16 20:00 05/23/16 00:27 Nifedipine (Procardia) 30 mg Q8HR PO 05/25/16 14:00 05/31/16 20:50 Hydralazine HCl (Apresoline Inj) 10 mg Q1HR PRN IV PUSH SBP>160, DBP>90 05/27/16 18:00 05/29/16 16:18 Labetalol HCl (Trandate Inj) 10 mg Q1HR PRN IV PUSH SBP>160, DBP>90, HR>65 05/27/16 17:30 05/30/16 18:44 Metoclopramide HCl (Reglan Inj) 5 mg Q8HR IV PUSH 05/27/16 22:00 05/31/16 20:49 Labetalol HCl (Trandate) 200 mg Q8HR PO 05/27/16 22:00 05/31/16 20:48 Heparin Sodium (Porcine) (Heparin Inj) 5,000 units Q12HR SQ 05/30/16 09:00 05/31/16 20:58 Acetaminophen (Tylenol 650 Mg/ 20 ml Liq) 650 mg Q6H PRN TUBE TEMP > 100.5 05/31/16 13:30 05/31/16 13:40 Objective Remarks GENERAL: critically ill SKIN: Warm and dry. LYMPHATIC: No adenopathy. CARDIOVASCULAR: Regular rate and rhythm without murmurs. RESPIRATORY: Breath sounds equal bilaterally. GASTROINTESTINAL: Abdomen distended /obese EXTREMITIES: b/l le edema Assessment/Plan Problem List: (1) Occlusive thrombus Status: Acute Plan: -- US on 05/25/16 shows occlusive thrombus to R distal cephalic vein -- US on 05/18 and 05/26 shows clot to R posterior tibial vein, I spoke with Dr. Peters and he indicated there has been propagation of the clot between 05/18 and (2) Retroperitoneal bleed Status: Acute Plan: -- Lg areas of hemorrhage involving the left peritoneum psoas muscle, the mesentery as well as area adjacent to the left external iliac artery found on CT 05/16 -- Daily CBC -- Repeat CT Abdomen once stable (3) Anemia Status: Acute Plan: -- Transfuse to keep Hgb greater than 8. -- Due to intra-abdominal bleeding. Assessment 62 y/o male who presented to the ED with chest pain and was found to be in acute STEMI. Plan - multiorgan failure and recent retroperitoneal bleed with Hb drop. intubated and sedated. poor prognosis - Continue Prophylactic Heparin injection - Will reassess LE thrombi with repeat Doppler if swelling worsens. - Consider IVC filter if thrombi worsens Problem Qualifiers (1) Anemia: Carmelo Veras MD May 31, 2016 22:40
[2016-06-01] VITALS (23 sets, daily range): BP systolic 117–162; BP diastolic 73–89; PULSE 82–121; RESP 22–23; TEMP 99.4–101.1; O2SAT 91–100
[2016-06-01] MEDS: RESP: SODIUM CHLORIDE 3% 4 ML NEB NEB SCH ×7 (00:22→22:59)
[2016-06-01] MEDS: ACETAMINOPHEN 650 MG/20.3 ML UDC TUBE PRN (03:44)
[2016-06-01] MEDS: LABETALOL HCL 100 MG/20 ML VIAL IV PUSH PRN (03:45)
[2016-06-01] MEDS: CHLORHEXIDINE GLUCONATE 2 % 1 PACK (2 CLOTHS) TOP SCH (04:00)
[2016-06-01 04:45] LABS: HEMATOCRIT 30.8 % (39.0-51.0); REVIEW FLAG FINAL
[2016-06-01] MEDS: METOCLOPRAMIDE HCL 10 MG/2 ML VIAL IV PUSH SCH ×3 (05:26→22:03)
[2016-06-01] MEDS: LABETALOL HCL 200 MG TAB PO SCH ×3 (05:26→22:03)
[2016-06-01] MEDS: NIFEdipine 10 MG CAP PO SCH ×3 (05:26→22:00)
[2016-06-01] MEDS: INSULIN NovoLIN REGULAR SUPPLEMENTAL SCALE SQ SCH ×4 (07:00→20:20)
[2016-06-01] MEDS: SODIUM CHLORIDE 0.9% FLUSH 5 ML FLUSH IV FLUSH SCH ×2 (07:51→20:19)
[2016-06-01] MEDS: CHLORHEXIDINE 0.12% (ORAL KIT) 15 ML CUP MT SCH ×2 (07:51→20:20)
[2016-06-01] MEDS: HEPARIN SODIUM - SQ 10,000 UNITS/ML VIAL SQ SCH ×2 (07:52→20:20)
[2016-06-01] MEDS: DOCUSATE SODIUM 100 MG CAP PO SCH ×3 (07:52→20:23)
[2016-06-01] MEDS: ARTIFICIAL TEARS OPTH SOLN 15 ML BTL EACH EYE SCH ×3 (07:52→17:49)
--- NOTE | 2016-06-01 09:23 | HHI.NPPN ---
Subjective History of Present Illness 61 year old with ARF, CHF, Respiratory failure Additional Remarks Patient remain intubated and off sedation, remain unresponsive Objective Data Data 05/31/16 06/01/16 19:00 07:00 Intake Total 480 ml 346 ml Output Total 150 ml 200 ml Balance 330 ml 146 ml IV Total 40 ml 77 ml Tube Feeding 440 ml 269 ml Output Urine Total 150 ml 200 ml # Bowel Movements 2 3 Vital Signs Date Time Temp Pulse Resp B/P Pulse Ox O2 Delivery O2 Flow Rate FiO2 06/01/16 08:15 98 35 06/01/16 08:00 35 06/01/16 08:00 118 06/01/16 08:00 99.4 118 22 136/81 98 06/01/16 06:00 86 06/01/16 04:09 98 35 06/01/16 04:00 101.1 86 22 159/82 98 06/01/16 04:00 35 06/01/16 04:00 86 06/01/16 02:00 121 06/01/16 01:12 99 35 06/01/16 00:23 99 35 06/01/16 00:00 100.7 119 22 145/86 99 06/01/16 00:00 35 06/01/16 00:00 119 05/31/16 22:00 87 05/31/16 20:00 101.7 123 20 146/90 99 05/31/16 20:00 123 05/31/16 20:00 35 05/31/16 19:28 99 35 05/31/16 18:05 99 35 05/31/16 16:00 40 05/31/16 16:00 100.5 87 22 133/71 100 05/31/16 12:00 40 05/31/16 12:00 100.1 92 22 156/96 99 05/31/16 11:37 96 35 -: 06/01/16 0339 05/31/16 1400 Microbiology 05/31/16 Aerobic Blood Culture, Received Pending 05/31/16 Anaerobic Blood Culture, Received Pending 05/31/16 Gram Stain - Final, Resulted 05/31/16 Sputum Culture, Resulted Pending 05/31/16 Urine Culture, Received Pending Physical Exam General Appearance: Obese Neck Neck Exam: Neck Supple Pulmonary Resp Exam: Rhonchi, Decreased Bases, Diminished Breath Sounds, Poor Inspiratory Effort Cardiology CV Exam: Tachycardia Gastrointestinal/Abdomen GI Exam: Soft, Non-Tender, Distended Extremeties Extremities Exam: Moderate Edema, Pitting Edema, Dependent Edema Neurologic Neuro Exam: Unresponsive Assessment/Plan Problem List: (1) Acute renal failure Plan: Patient has oliguric acute renal failure and remains essentially oliguric. Continue MWF BUN and Creatinine remain elevated. 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 Plan: Cardiology following (4) Acute hypoxemic respiratory failure Plan: On ventilator (5) Hypertensive emergency Plan: BP improved (6) Diabetes mellitus Plan: Continue monitor blood glucose (7) CAD (coronary artery disease) Plan: Presented with STEMI, follow with cardiology (8) Subsequent ST elevation (STEMI) myocardial infarction of anterior wall Plan: Planned transfer to when stable. No intervention performed here. Problem Qualifiers (1) Acute renal failure: Qualified Code: N17.0 - Acute renal failure with tubular necrosis (2) Diabetes mellitus: Qualified Code: E13.8 - Diabetes mellitus of other type with complication, unspecified long term acute care registered nurse insulin use status (3) CAD (coronary artery disease): Qualified Code: I25.10 - Coronary artery disease, angina presence unspecified, unspecified vessel or lesion type, unspecified whether chenega or transplanted heart Linda Mcintosh MD Jun 01, 2016 09:23
--- NOTE | 2016-06-01 12:12 | PD.CONS ---
HPI History of Present Illness This is a 61 year old male patient who is currently in the ICU being treated for bilateral basal ganglia infarcts with small punctate white matter infarcts on MRI, acute toxic metabolic encephalopathy, hemorrhagic shock secondary to left retroperitoneal bleed, coronary artery disease, nonischemic cardiomyopathy , hypertension 10, acute respiratory failure, acute kidney failure, anemia, occlusive thrombus in right distal cephalic vein, nonocclusive thrombus in left mid and distal basophilic veins, aspiration pneumonia, leukocytosis. He is unable to provide any history and therefore the history has been obtained from the EMR. On 05/06, he went into a PEA arrest and received ACLS protocol before having a return of spontaneous circulation. He is being followed by critical care, nephrology, hematology. He was extubated on 05/13 but reintubated on 05/16 for airway protection secondary to severe encephalopathy. He just underwent a tracheostomy placement earlier today. GI has been consulted for PEG tube placement. The dietitian as following and has recommended Nepro at 50 cc an hour. Called Demarco Short to discuss EGD with PEG tube placement, procedure, risks, benefits but there was no answer and therefore I left message for her to return call. (Sol Ortiz) PFSH Past Medical History Coronary artery disease Diabetes History of NC Hypertension Hypogonadism Chronic back pain Osteoarthritis Morbid obesity Past Surgical History Cardiac catheterization (Sol Ortiz) Coded Allergies: Penicillin (Verified Allergy, Mild, "I GO CRAZY", 09/01/15) Medications Allergies Coded Allergies Type Severity Reaction Last Updated Verified Penicillin Allergy Mild "I GO CRAZY" 09/01/15 Yes Active Scripts Medications Dose Route/Sig Days Date Category Dose Instructions Plavix (Clopidogrel Bisulfate) 75 Mg Tab 75 Mg PO DAILY 05/05/16 Reported Metformin (Metformin HCl) 500 Mg Tab 500 Mg PO TIDPC 05/05/16 Reported With meals Spironolactone 50 Mg Tab Unknown Dose PO BIDPC 05/05/16 Reported Hydrochlorothiazide 25 Mg Tab 25 Mg PO DAILY 05/05/16 Reported Norvasc (Amlodipine Besylate) 5 Mg Tab Unknown Dose PO DAILY 05/05/16 Reported Family History Unable to obtain Social History Unable to obtain (Sol Ortiz) Review of Systems ROS Unable to obtain (Sol Ortiz) GI Exam Vitals I&O Vital Signs Date Time Temp Pulse Resp B/P Pulse Ox O2 Delivery O2 Flow Rate FiO2 06/01/16 12:03 95 100 06/01/16 10:00 119 06/01/16 08:15 98 35 06/01/16 08:00 35 06/01/16 08:00 118 06/01/16 08:00 99.4 118 22 136/81 98 06/01/16 06:00 86 06/01/16 04:09 98 35 06/01/16 04:00 101.1 86 22 159/82 98 06/01/16 04:00 35 06/01/16 04:00 86 06/01/16 02:00 121 06/01/16 01:12 99 35 06/01/16 00:23 99 35 06/01/16 00:00 100.7 119 22 145/86 99 06/01/16 00:00 35 06/01/16 00:00 119 05/31/16 22:00 87 05/31/16 20:00 101.7 123 20 146/90 99 05/31/16 20:00 123 05/31/16 20:00 35 05/31/16 19:28 99 35 05/31/16 18:05 99 35 05/31/16 16:00 40 05/31/16 16:00 100.5 87 22 133/71 100 I/O 05/31/16 05/31/16 05/31/16 06/01/16 06/01/16 06/01/16 07:00 15:00 23:00 07:00 15:00 23:00 Intake Total 199 ml 480 ml 183 ml 163 ml Output Total 250 ml 150 ml 100 ml 100 ml Balance -51 ml 330 ml 83 ml 63 ml IV Total 43 ml 40 ml 34 ml 43 ml Tube Feeding 96 ml 440 ml 149 ml 120 ml Tube Irrigant 60 ml Output Urine Total 250 ml 150 ml 100 ml 100 ml # Bowel Movements 0 2 1 2 Imaging Last Impressions Chest X-Ray 05/27/16 0000 Signed Impressions: Service Date/Time: Friday, May 27, 2016 02:19 - CONCLUSION: No significant change mild left base consolidation or the lines/tubes as above.. Low Johnson MD Brain MRI 05/27/16 0000 Signed Impressions: Service Date/Time: Friday, May 27, 2016 12:17 - CONCLUSION: Multifocal bilateral T2 signal abnormalities in restricted diffusion concerning for bilateral lacunar infarcts. Carlitos Aguirre MD Lower Extremity Ultrasound 05/26/16 0000 Signed Impressions: Service Date/Time: Thursday, May 26, 2016 13:51 - CONCLUSION: New thrombosed right posterior tibial vein. Jonathon Peters MD FACR Upper Extremity Ultrasound 05/25/16 0000 Signed Impressions: Service Date/Time: May 08:56 - CONCLUSION: 1. Occlusive thrombus in the right distal cephalic vein. 2. Nonocclusive thrombus in the left mid and distal basilic veins. Sammy Duran MD Head CT 05/16/16 0000 Signed Impressions: Service Date/Time: Monday, May 16, 2016 08:30 - CONCLUSION: Suspected bilateral basal ganglia calcifications are unchanged. No evidence of hemorrhage, edema, mass or mass effect. Stephen Quintanilla MD Abdomen/Pelvis CT 05/16/16 0000 Signed Impressions: Service Date/Time: Monday, May 16, 2016 08:39 - CONCLUSION: There are large areas of hemorrhage including the left retroperitoneum and psoas muscle, within the mesentery and a smaller area in the right psoas muscle. They don't appear to be related to the abdominal aorta or the internal iliac arteries. There is a small focal collection hemorrhage adjacent to the left external iliac artery as it enters the pelvis, but I don't believe that is related to the large amount of hemorrhage seen elsewhere. The areas of hemorrhage are large and multi-focal. Stephen Quintanilla MD CT Angiography 05/06/16 0000 Signed Impressions: Service Date/Time: Saturday, May 07, 2016 00:04 - CONCLUSION: 1. Lobar consolidation bilaterally in the lower lobes. 2. Negative for pulmonary embolism. Michael Colbert MD Laboratory Test 05/31/16 05/31/16 05/31/16 06/01/16 14:00 17:46 20:50 03:39 Sodium Level 142 MEQ/L Potassium Level 4.4 MEQ/L Chloride Level 101 MEQ/L Carbon Dioxide Level 25.8 MEQ/L Anion Gap 15 MEQ/L Blood Urea Nitrogen 117 MG/DL Creatinine 6.56 MG/DL Estimat Glomerular Filtration 11 ML/MIN Rate Random Glucose 198 MG/DL Calcium Level 7.8 MG/DL Phosphorus Level 8.2 MG/DL Magnesium Level 2.3 MG/DL Urine Color LIGHT-RED Urine Turbidity HAZY Urine pH 6.0 Urine Specific [place] 1.023 Urine Protein 300 mg/dL Urine Glucose (UA) NEG mg/dL Urine Ketones NEG mg/dL Urine Occult Blood LARGE Urine Nitrite NEG Urine Bilirubin NEG Urine Urobilinogen LESS THAN 2.0 MG/DL Urine Leukocyte Esterase LARGE Urine RBC 21 /hpf Urine WBC 27 /hpf Urine WBC Clumps RARE Urine Squamous Epithelial 1 /hpf Cells Urine Bacteria OCC /hpf Urine Mucus FEW /lpf Urine Yeast (Budding) MOD Microscopic Urinalysis Comment CATH-CULTURE IND Hemoglobin 9.9 GM/DL 9.9 GM/DL Hematocrit 30.8 % 30.8 % Date/Time Procedure Status Source Growth 05/31/16 17:46 Urine Culture Received Urine Catheterized Urine Pending 05/31/16 17:46 Gram Stain - Final Resulted Sputum Endotracheal 05/31/16 17:46 Sputum Culture Resulted Sputum Endotracheal Pending 05/31/16 17:46 Aerobic Blood Culture - Preliminary Resulted Blood Peripheral NO GROWTH IN 1 DAY 05/31/16 17:46 Anaerobic Blood Culture - Preliminary Resulted Blood Peripheral NO GROWTH IN 1 DAY 05/27/16 19:45 Aerobic Blood Culture - Final Complete Blood Peripheral NO GROWTH IN 5 DAYS 05/27/16 19:45 Anaerobic Blood Culture - Final Complete Blood Peripheral NO GROWTH IN 5 DAYS Physical Examination HEENT: Normocephalic; atraumatic; no jaundice CHEST: Rhonchi throughout. Trach to vent. CARDIAC: ST ABDOMEN: Soft, obese, nondistended, nontender; no hepatosplenomegaly; bowel sounds are present in all four quadrants. EXTREMITIES: Generalized edema. SKIN: Normal; no rash; no jaundice. SCIENCE CONSULTANT: Sedated on vent. (Sol Ortiz) Assessment and Plan Plan ASSESSMENT: - Dysphagia, FEN. Pt in ICU being treated for multiple medical problems, bilateral basal ganglia infarcts with small punctate white matter infarcts on MRI, acute toxic metabolic encephalopathy, hemorrhagic shock secondary to left retroperitoneal bleed, coronary artery disease, nonischemic cardiomyopathy, hypertension 10, acute respiratory failure, acute kidney failure, anemia, occlusive thrombus in right distal cephalic vein, nonocclusive thrombus in left mid and distal basophilic veins, aspiration pneumonia, leukocytosis, PEA arrest. S/P tracheostomy placement earlier today. GI has been consulted for PEG tube placement. Internist Medical Doctor Md recommends Nepro at 50 cc an hour. Called Demarco Short to discuss EGD with PEG tube placement, procedure, risks, benefits but there was no answer and therefore I left message for her to return call. PLAN: - Plan for egd with peg tube placement in am - Obtain consents - NPO after MN - Hold heparin after MN - Internist Medical Doctor Md recommends Nepro at 50cc/hr - Supportive care - Further recommendations to follow based on results of above - Pt seen and examined by Dr. Wayne and myself and this note is written (Sol Ortiz) Physician Comments seen, examined agree with above discussed with family bedside due to large body habitus, peg may not be technically possible to be inserted by endoscopy, we will try in am if unsuccessful we will consult IR (Loreta Wayne MD) Sol Ortiz Jun 01, 2016 12:12 Loreta Wanye MD Jun 01, 2016 17:40
[2016-06-01] MEDS ORDERED: MIDAZOLAM HCL 5 MG/ML VIAL (1 ML) ONE (13:20)
[2016-06-01] MEDS ORDERED: PROPOFOL 1000 MG/100 ML INJ 100 ML ONE (13:20)
--- NOTE | 2016-06-01 15:08 | RADRPT ---
EXAM DATE/TIME: 06/01/2016 14:20 [facility] COMPARISON: CHEST SINGLE AP, May 25, 2016, 7:33. CHEST SINGLE AP, May 27, 2016, 2:19. INDICATIONS : Post tracheostomy. MEDICAL HISTORY : Myocardial infarction. Congestive heart failure. Hypertension. diabetes. SURGICAL HISTORY : None. ENCOUNTER: Initial ACUITY: 3 days PAIN SCORE: Non-responsive. LOCATION: Bilateral chest FINDINGS: The heart is normal in size. The tracheostomy is in good position. No pneumothorax is identified. The lungs are clear. The left jugular line and right jugular introducer in good position. CONCLUSION: 1. Tracheostomy in good position. No pneumothorax. Mahin Peters MD on June 01, 2016 at 15:06 Board Certified Radiologist. This report was verified electronically.
--- NOTE | 2016-06-01 15:38 | PD.ONC.PN ---
Subjective Subjective Remarks Tmax 101.1 overnight. Pt supine in bed. Per RN he has just had a tracheostomy. No bleeding. at bedside. Objective Data Date Time Temp Pulse Resp B/P Pulse Ox O2 Delivery O2 Flow Rate FiO2 06/01/16 14:22 92 60 06/01/16 13:35 100 100 06/01/16 12:03 95 100 06/01/16 12:00 99.4 82 23 162/89 99 06/01/16 12:00 35 06/01/16 12:00 82 06/01/16 10:00 119 06/01/16 08:15 98 35 06/01/16 08:00 35 06/01/16 08:00 118 06/01/16 08:00 99.4 118 22 136/81 98 06/01/16 06:00 86 06/01/16 04:09 98 35 06/01/16 04:00 101.1 86 22 159/82 98 06/01/16 04:00 35 06/01/16 04:00 86 06/01/16 02:00 121 06/01/16 01:12 99 35 06/01/16 00:23 99 35 06/01/16 00:00 100.7 119 22 145/86 99 06/01/16 00:00 35 06/01/16 00:00 119 05/31/16 22:00 87 05/31/16 20:00 101.7 123 20 146/90 99 05/31/16 20:00 123 05/31/16 20:00 35 05/31/16 19:28 99 35 05/31/16 18:05 99 35 05/31/16 16:00 40 05/31/16 16:00 100.5 87 22 133/71 100 06/01/16 06/01/16 06/01/16 07:00 15:00 23:00 Intake Total 163 ml Output Total 100 ml Balance 63 ml Result Diagram: 06/01/16 0339 05/31/16 1400 Laboratory Results Laboratory Tests Test 05/31/16 05/31/16 06/01/16 17:46 20:50 03:39 Urine Color LIGHT-RED Urine Turbidity HAZY Urine pH 6.0 Urine Specific [place] 1.023 Urine Protein 300 mg/dL Urine Glucose (UA) NEG mg/dL Urine Ketones NEG mg/dL Urine Occult Blood LARGE Urine Nitrite NEG Urine Bilirubin NEG Urine Urobilinogen LESS THAN 2.0 MG/DL Urine Leukocyte Esterase LARGE Urine RBC 21 /hpf Urine WBC 27 /hpf Urine WBC Clumps RARE Urine Squamous Epithelial 1 /hpf Cells Urine Bacteria OCC /hpf Urine Mucus FEW /lpf Urine Yeast (Budding) MOD Microscopic Urinalysis Comment CATH-CULTURE IND Hemoglobin 9.9 GM/DL 9.9 GM/DL Hematocrit 30.8 % 30.8 % Culture Results Microbiology Date/Time Procedure Status Source Growth 05/31/16 17:46 Aerobic Blood Culture - Preliminary Resulted Blood Peripheral NO GROWTH IN 1 DAY 05/31/16 17:46 Anaerobic Blood Culture - Preliminary Resulted Blood Peripheral NO GROWTH IN 1 DAY 05/31/16 17:46 Gram Stain - Final Resulted Sputum Endotracheal 05/31/16 17:46 Sputum Culture - Preliminary Resulted Gram Negative Oswaldo 05/31/16 17:46 Urine Culture - Preliminary Resulted Urine Catheterized Urine IMMATURE GROWTH - REINCUBATE Imaging Studies Last 24 hours Impressions Chest X-Ray 06/01/16 0000 Signed Impressions: Service Date/Time: May 14:20 - CONCLUSION: 1. Tracheostomy in good position. No pneumothorax. Maihn Peters MD Administered Medications Medications (Trade) Dose Ordered Sig/Isabelle Route PRN Reason Start Time Stop Time Status Last Admin Dose Admin IV Flush (NS Flush) 2 ml UNSCH PRN IV FLUSH FLUSH AFTER USING IV ACCESS 05/05/16 17:15 05/24/16 00:59 IV Flush (NS Flush) 2 ml BID IV FLUSH 05/05/16 21:00 06/01/16 07:51 Artificial Tears (Tears Naturale Opth Soln) 1 drop TID EACH EYE 05/05/16 18:00 06/01/16 11:14 Ondansetron HCl (Zofran Inj) 4 mg Q6H PRN IV NAUSEA OR VOMITING 05/05/16 17:15 05/26/16 01:34 Docusate Sodium (Colace) 100 mg BID PO 05/05/16 21:00 05/30/16 08:35 Miscellaneous Information 1 Q361D XX 05/05/16 17:15 05/05/16 17:15 Chlorhexidine Gluconate (Chlorhexidine 2% Cloth) Taper DAILY@04 TOP 05/06/16 04:00 05/02/17 03:59 06/01/16 04:00 Aspirin (Aspirin Chew) 81 mg DAILY CHEW 05/06/16 09:00 Hold 05/15/16 08:30 Atorvastatin Calcium (Lipitor) 20 mg DAILY PO 05/06/16 09:00 Hold 05/15/16 08:32 Sennosides (Senokot) 17.2 mg Q12H PO 05/06/16 18:00 Hold 05/26/16 05:37 Furosemide (Lasix) 20 mg BID@09,18 PO 05/15/16 18:00 Hold 05/15/16 17:22 Chlorhexidine Gluconate 15 ml 15 ml BID@08,20 MT 05/16/16 20:00 06/01/16 07:51 Sodium Chloride 1,000 ml @ 0 mls/hr Q0M PRN IV For Prime & Rinse Back 05/17/16 12:13 05/31/16 08:10 Sodium Chloride (NS 1000 ml Inj) 1,000 ml @ 200 mls/hr Q5H PRN IV WITH DIALYSIS 05/17/16 12:13 05/31/16 08:11 IV Flush (NS Flush) 5 ml UNSCH PRN IVF WITH DIALYSIS 05/17/16 12:15 05/31/16 08:12 Heparin Sodium (Porcine) (Heparin Inj) UNSCH PRN .XX WITH DIALYSIS 05/17/16 12:15 05/31/16 08:11 Gentamicin Sulfate (Gentamicin (Dialysis) Inj) 20 mg UNSCH PRN IV WITH DIALYSIS 05/17/16 12:15 05/31/16 08:12 Epoetin Adonay 13580 units 10,000 units UNSCH PRN IV WITH DIALYSIS 05/17/16 12:15 05/31/16 08:12 Midazolam HCl 100 ml @ 0 mls/hr TITRATE IV 05/17/16 21:45 05/23/16 00:27 Fentanyl Citrate (fentaNYL DRIP) 250 ml @ 0 mls/hr TITRATE IV 05/18/16 20:00 05/23/16 00:27 Nifedipine (Procardia) 30 mg Q8HR PO 05/25/16 14:00 06/01/16 14:00 Hydralazine HCl (Apresoline Inj) 10 mg Q1HR PRN IV PUSH SBP>160, DBP>90 05/27/16 18:00 05/29/16 16:18 Labetalol HCl (Trandate Inj) 10 mg Q1HR PRN IV PUSH SBP>160, DBP>90, HR>65 05/27/16 17:30 06/01/16 03:45 Metoclopramide HCl (Reglan Inj) 5 mg Q8HR IV PUSH 05/27/16 22:00 06/01/16 15:16 Labetalol HCl (Trandate) 200 mg Q8HR PO 05/27/16 22:00 06/01/16 15:16 Heparin Sodium (Porcine) (Heparin Inj) 5,000 units Q12HR SQ 05/30/16 09:00 Future Hold 05/31/16 20:58 Acetaminophen (Tylenol 650 Mg/ 20 ml Liq) 650 mg Q6H PRN TUBE TEMP > 100.5 05/31/16 13:30 06/01/16 03:44 Objective Remarks GENERAL: Supine in bed. Mechanically ventilated. SKIN: Warm and dry. HEAD: Normocephalic. NECK: Tracheostomy in place. No bleeding. CARDIOVASCULAR: +S1/S2. RESPIRATORY: Scattered rhonchi. 35% Fio2. GASTROINTESTINAL: Abdomen distended. Per RN TF has been off for procedure. EXTREMITIES: +Anasarca. NEUROLOGICAL: Sedation has been off. Pt not responsive to pain or opening eyes. Assessment/Plan Problem List: (1) Occlusive thrombus Status: Acute Plan: -- US on 05/25/16 shows occlusive thrombus to R distal cephalic vein -- US on 05/18 and 05/26 shows clot to R posterior tibial vein. Per Dr. Peters there has been propagation of the clot between 05/18 and 05/26. (2) Retroperitoneal bleed Status: Acute Plan: -- Lg areas of hemorrhage involving the left peritoneum psoas muscle, the mesentery as well as area adjacent to the left external iliac artery found on CT 05/16 -- Daily CBC -- Repeat CT Abdomen once stable (3) Anemia Status: Acute Plan: -- Transfuse to keep Hgb greater than 8. -- Due to intra-abdominal bleeding. Assessment 62 y/o male who presented to the ED with chest pain and was found to be in acute STEMI. Plan 1. Pt had tracheostomy placed today. No bleeding. Hgb has been stable. 2. Will monitor DVT to legs. Will plan to repeat US in a few days. 3. If worsened he may benefit from IVC filter to prevent PE. 4. Continue SQ heparin 5000 units BID and monitor for bleeding. Attending Statement The exam, history, and the medical decision-making described in the above note were completed with the assistance of the mid-level provider. I reviewed and agree with the findings presented. I attest that I had a [id number] encounter with the patient on the same day, and personally performed and documented my assessment and findings in the medical record. Problem Qualifiers (1) Anemia: Jessica Canas Jun 01, 2016 15:38 Carmelo Veras MD Jun 01, 2016 23:29
--- NOTE | 2016-06-01 16:48 | PD.PROCEDR ---
Procedure Note Procedure Procedure: Fiberoptic Bronchoscopy Diagnosis/Indication: Respiratory failure, encephalopathy Consent: Informed consent obtained and a time out performed Anesthesia: Continued sedation with propofol. Total 100 g of fentanyl given for pain control, 10 mg IV Versed. Neuromuscular paralysis with rocuronium Description of the Procedure: The patient was sedated and mechanically ventilated, was placed on 100% FIO2 and a volume control mode of ventilation. The fiberoptic bronchoscopy was inserted via endotracheal tube and the trachea, right and left mainstem bronchi, were evaluated. The endobronchial anatomy was normal. ETT was withdrawn slowly to 17.0 CM. Insertion of introducer needle, guidewire, followed by serial Blue Rhino dilation and tracheostomy placement was directly visualized on video bronchoscopy. (see separate tracheostomy procedure note by Dr. Espinosa). After tracheostomy placement, position was confirmed by introducing the bronchoscope through the new trach and visualizing the main kendal. After suturing in the tracheostomy tube, I reinserted bronchoscope through the tracheostomy again and suctioned out excess blood and secretion. The patient tolerated the procedure well with no hemodynamic instability or hypoxia. There were no immediate complications noted. EBL for bronchoscopy have was negligible. A chest x-ray has been ordered. I personally performed the procedure. Tahmina Kelsey MD Jun 01, 2016 16:48
[2016-06-01] MEDS: RESP: ALBUTEROL 2.5 MG/IPRATROPIUM 0.5 MG NEB (PRN) INH (16:51)
--- NOTE | 2016-06-01 16:51 | PD.PROCEDR ---
Procedure Note Procedure Percutaneous Dilation Tracheostomy Tube Placement Diagnosis: Severe encephalopathy, ventilator dependency Indications: Failure to wean Anesthesia: [facility] Neuromuscular Blockade: Rocuronium 100 mg Anesthesia was provided by the bedside RN Description of the Procedure: The patient was sedated and paralyzed. The patient was positioned in the supine position with a chest roll. The patient's neck was slightly extended. Landmarks were palpated and the anatomy of the anterior neck was deemed normal. A time out procedure was performed. The patient was placed on a volume control mode of ventilation, on 100% FiO2. The patient was prepped and draped sterilely. A bronchoscope was inserted into the endotracheal tube for endoscopic guidance ( see separate bronchoscopy procedure note). After negative aspiration, 1% lidocaine with 1:100k epinephrine was injected subcutaneously in the midline neck using a 21g needle for local anesthesia. An approximately 2cm skin incision was made using a #15 blade. The cricoid cartilage, thyroid tissue, and tracheal rings were palpated in the midline. Under direct bronchoscopic guidance , the cuff of the endotracheal tube was deflated and the endotracheal tube was retracted to a level above the level of the skin incision. At this point, a 15g introducer needle/catheter was advanced midline under negative aspiration with saline filled syringe until bubbles were seen and the needle and catheter were visualized in the lumen of the trachea. The needle was withdrawn leaving the catheter in place. A 0.052 in diameter J-shaped guidewire was advanced through the catheter into the lumen of the trachea, under direct bronchoscopic visualization. Using a modified Seldinger technique, a 14 Fr, 4.5 cm introducer dilator was used, followed by a Blue Rhino Percutaneous Tracheostomy Dilator, and finally a 28 Fr tracheostomy loading catheter with 8.0 Cuffed Shiley tracheostomy tube. The loading catheter and guidewire were removed and the tracheostomy tube was confirmed in the lumen of the trachea with bronchoscopy, end-tidal CO2, and returning volumes on the ventilator. The tracheostomy was sewn to the skin with interrupted 2.0 Prolene sutures, and a tracheostomy tie was applied to the skin. There were no immediate complications. There was minimal EBL. A chest x-ray has been ordered. Drawer Maker: Maximilian Simon MD I personally performed the procedure. Kim Espinosa MD Jun 01, 2016 16:51
--- NOTE | 2016-06-01 17:03 | HHI.CCPN ---
Subjective Remarks/Hospital Course 61-year-old AA male. Date of admission 05/05/2016. Date of consultation 2016. Past medical history includes hypertensive heart disease, hypertension, diabetes mellitus type 2 and spinal stenosis. He presented to [facility] today with history of acute onset of diaphoresis, chest pain and syncope. Her documentation, Chest pain was 7 out of 10 without radiation. Later in the hospital physician, patient did have ST elevation anterior septal leads. I he had a cardiac catheterization in 2009 which revealed moderate coronary disease which documented 50-60% stenosis in the LAD diagonals 1 and 2. Recommended medical management at that time. Dr. Marcano was notified and proceed to the cardiac catheter lab. Patient sees heparin and one aspirin prior to cardiac catheterization. During heart catheterization,, patient became hypertensive, tachypneic, hypoxic and agitated including abdominal pain with nausea and vomiting. Patient was intubated by Dr. Simon and dispensed transferred to room 505a. Currently hemodynamic stable on a propofol drip. 05/06: Patient required additional sedation overnight. Was moving all 4 extremity spontaneously and strongly. Potassium is replaced overnight along with magnesium. This afternoon approximate 4 PM, patient went into a sinus bradycardia in the 40s. RN cannot locate pulse and possibly went into a PEA arrest. Patient received CPR for approximately 2 minutes. ROSC return immediately. Received 1 mg of epinephrine IV. Blood pressure was 240 systolic. Saturations were above 90% the entire time. Dr. Marcano was made aware. No new recommendations at this time. Electrolytes currently pending. Patient is currently hemodynamic stable and an arterial line/left radial has been placed 05/07: no improvement in delirium or mental status. spiking low grade fevers. 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 CT surgery consulted and declined to operate here: he will need referral once stabilized. fio2 requirements still high. CT chest also with evidence of bibasilar consolidation which may be aspiration pneumonitis vs. pneumonia now that we are 48h out from initial presentation and now spiking fevers. 05/08: delirium persists. continues to spike fevers. jolly cultured yesterday without results yet. holding sedation today. 05/09: delirium slightly improved. waking up on SAT, weakly following commands. cultures still NGTD. hypoxia slightly improved. 05/10: delirium improving. weakly following commands still. cultures still NGTD. fevers persist, although fever curve appears to be improving. hypoxia continues to improve. still remains very critically ill. 05/11: Tmax 99.9. Currently 99.1. Tolerating tube feeding. One bowel movement. Continues to have difficulty weaning ventilator. 05/12: Currently afebrile. Tolerating tube feeding. Positive BM. Increased FiO2 from 45-60%. +1 L. Arousable on sedation vacation and weakly follows commands. 05/13: Remains intubated, sedated. FiO2 now reduced to 45% (was 55% today am). Start weaning trials after starting Precedex. To control BP May use Cardene, given anomalous RCA 05/14: Extubated yesterday, remained on BiPAP overnight. Intermittently agitated. Following commands to me today, while on BiPAP. Remains on Cardene infusion for uncontrolled hypertension. Urine output 4.7 L in 24 hours 05/15: On 3 L nasal cannula. Fever trending down, breathing more comfortably. Able to communicate. Discussed with Dr. Marcano. Dr. Pendleton will be available tomorrow, will probably need transfer to [facility] for RCA unroofing 05/16: Acutely hypotensive overnight with tachycardia. MAP was 55 with greater than 130s. Received 3.5 L of normal saline bolus with improvement in blood pressure and heart rate. Lethargic on BiPAP. ABG pending, HB dropped from 10.9 to 7.8. No obvious source of bleeding. STAT 2U PRBC. STAT CT head and CT abd pelvis. R/O ICH or RP bleed. Patient received only 5mg Nicci at 2100 yesterday, no other sedation. Last dose of Lovenox was at 211, held now 05/17: Developed Hemorrhagic shock from large retroperitoneal hemorrhage night to 05/15/16. Stabilized after 3 units of PRBC and protamine. Hemoglobin 8.7 today. Remain encephalopathy and unresponsive yesterday. MRI 05/16/16 shows small punctate white matter infarcts, bilateral basal ganglia infarcts. Urology consult pending. Antiplatelet drugs on hold. Now with anuria from ATN secondary to shock. Nephrology consult pending 05/18: Developed sudden onset bradycardia in 40s, with acute hypotension yesterday evening around 5 PM. ACLS protocol initiated (did not arrest or lose pulse). Received multiple epinephrine, bicarbonate calcium and fluid boluses. Patient was placed on dopamine 20 mics per KG per minute, Levophed 20 mics per KG per minute, epinephrine 2.5 mics per minute and eventually stabilized with systolic blood pressure reading 120s. Hemoglobin on ABG was 7 and emergently transfused 3 units PRBC and 2 units FFP. Lab hemoglobin came back at 6.8. Patient also was profoundly acidemic with pH of 7.16. Patient received total 3 A of bicarbonate and bicarbonate infusion was started, minute ventilation was also increased. 2: MAXIMUM TEMPERATURE 100.3. Currently 99.5. No bowel movement. Tube feeds were restarted. FiO2 50%. PEEP at 8. 05/20: MAXIMUM TEMPERATURE 100.9. Positive BM. Tube feeds were restarted today. PT plateau. FiO2 down to 85%. Semiemergent bronchoscopy yesterday for right upper lobe airway obstruction. Resolved 05/21: MAXIMUM TEMPERATURE 100.7. Currently 99.6. Somewhat tachycardic. 2 bowel movements overnight. Tolerating tube feeds at 30 cc an hour. Had episode of emesis overnight. 05/22: Remains sedated, orally intubated on mechanical ventilation. 05/23: Remains sedated, orally intubated on mechanical ventilation. Dialyzed yesterday. 05/24: Remains sedated/encephalopathic, orally intubated on mechanical ventilation. Tolerating tube feeds. Awaiting dialysis 05/25: Remains encephalopathic, orally intubated on mechanical ventilation. Off sedation for 2 days now. PEEP decreased to to +7 10 No acute events overnight. For HD today. Afebrile. On PRVC/AC 20, TV 550, PEEP: 6, IT: 1.2 and FIO2 35%. On no sedation. Tolerating tube feeds. Subjective 05/27: Tmax 99.8. Currently 99.1. FiO2 down to 35%. Tolerating tube feeding. Positive BM. MRI brain reveals bilateral lacunar infarcts. Will likely need trach 05/28: Afebrile. The patient continues on CPAP trials 28/09 FiO2 of 35%, maintaining O2 sat at 97%. 05/29: The patient continues on CPAP trials. The patient underwent hemodialysis today. The patient is noted to be a medium dose sliding scale insulin with persistent hyperglycemia will increase to high-dose insulin sliding scale. Per hematology the patient was placed on heparin infusion initially, then discontinued.. 05/30 Tmax 100.1. S/P initiation of therapeutic anticoagulation ,serial hemoglobin stable, continue to monitor every 12 hours. Patient continues to fail CPAP trials, plan for tracheostomy, Discussed with patient spouse, she desires a trach and PEG, at this time. 05/31 Tmax 100.1. Maintaining CPAP trials occasionally 3-4 hours. Discussed with family risk and benefits of tracheostomy. Discussed with family MRI results, EEG results. Family requests continue aggressive support. Plan for percutaneous tracheostomy . GI consulted for PEG placement. 06/01 Percutaneous tracheostomy performed today. Plan for patient to go to IR for new Vas-Cath placement per nephrology. Objective Vital Signs Date Time Temp Pulse Resp B/P Pulse Ox O2 Delivery O2 Flow Rate FiO2 06/01/16 16:00 99.4 85 22 117/73 91 06/01/16 16:00 35 Intake and Output 05/31/16 05/31/16 06/01/16 08:00 16:00 00:00 Intake Total 199 ml 480 ml 183 ml Output Total 250 ml 150 ml 100 ml Balance -51 ml 330 ml 83 ml Result Diagram: 06/01/16 0339 05/31/16 1400 Imaging Last Impressions Chest X-Ray 06/01/16 0000 Signed Impressions: Service Date/Time: May 14:20 - CONCLUSION: 1. Tracheostomy in good position. No pneumothorax. Mahin Peters MD Brain MRI 05/27/16 0000 Signed Impressions: Service Date/Time: Friday, May 27, 2016 12:17 - CONCLUSION: Multifocal bilateral T2 signal abnormalities in restricted diffusion concerning for bilateral lacunar infarcts. Carlitos Aguirre MD Lower Extremity Ultrasound 05/26/16 0000 Signed Impressions: Service Date/Time: Thursday, May 26, 2016 13:51 - CONCLUSION: New thrombosed right posterior tibial vein. Jonathon Peters MD FACR Upper Extremity Ultrasound 05/25/16 0000 Signed Impressions: Service Date/Time: May 08:56 - CONCLUSION: 1. Occlusive thrombus in the right distal cephalic vein. 2. Nonocclusive thrombus in the left mid and distal basilic veins. Sammy Duran MD Head CT 05/16/16 0000 Signed Impressions: Service Date/Time: Monday, May 16, 2016 08:30 - CONCLUSION: Suspected bilateral basal ganglia calcifications are unchanged. No evidence of hemorrhage, edema, mass or mass effect. Stephen Quintanilla MD Abdomen/Pelvis CT 05/16/16 0000 Signed Impressions: Service Date/Time: Monday, May 16, 2016 08:39 - CONCLUSION: There are large areas of hemorrhage including the left retroperitoneum and psoas muscle, within the mesentery and a smaller area in the right psoas muscle. They don't appear to be related to the abdominal aorta or the internal iliac arteries. There is a small focal collection hemorrhage adjacent to the left external iliac artery as it enters the pelvis, but I don't believe that is related to the large amount of hemorrhage seen elsewhere. The areas of hemorrhage are large and multi-focal. Stephen Quintanilla MD CT Angiography 05/06/16 0000 Signed Impressions: Service Date/Time: Saturday, May 07, 2016 00:04 - CONCLUSION: 1. Lobar consolidation bilaterally in the lower lobes. 2. Negative for pulmonary embolism. Michael Colbert MD Last Impressions Chest X-Ray 05/27/16 0000 Signed Impressions: Service Date/Time: Friday, May 27, 2016 02:19 - CONCLUSION: No significant change mild left base consolidation or the lines/tubes as above.. Low Johnson MD Brain MRI 05/27/16 0000 Signed Impressions: Service Date/Time: Friday, May 27, 2016 12:17 - CONCLUSION: Multifocal bilateral T2 signal abnormalities in restricted diffusion concerning for bilateral lacunar infarcts. Carlitos Aguirre MD Lower Extremity Ultrasound 05/26/16 0000 Signed Impressions: Service Date/Time: Thursday, May 26, 2016 13:51 - CONCLUSION: New thrombosed right posterior tibial vein. Jonathon Peters MD FACR Upper Extremity Ultrasound 05/25/16 0000 Signed Impressions: Service Date/Time: May 08:56 - CONCLUSION: 1. Occlusive thrombus in the right distal cephalic vein. 2. Nonocclusive thrombus in the left mid and distal basilic veins. Sammy Duran MD Head CT 05/16/16 0000 Signed Impressions: Service Date/Time: Monday, May 16, 2016 08:30 - CONCLUSION: Suspected bilateral basal ganglia calcifications are unchanged. No evidence of hemorrhage, edema, mass or mass effect. Stephen Quintanilla MD Abdomen/Pelvis CT 05/16/16 0000 Signed Impressions: Service Date/Time: Monday, May 16, 2016 08:39 - CONCLUSION: There are large areas of hemorrhage including the left retroperitoneum and psoas muscle, within the mesentery and a smaller area in the right psoas muscle. They don't appear to be related to the abdominal aorta or the internal iliac arteries. There is a small focal collection hemorrhage adjacent to the left external iliac artery as it enters the pelvis, but I don't believe that is related to the large amount of hemorrhage seen elsewhere. The areas of hemorrhage are large and multi-focal. Stephen Quintanilla MD CT Angiography 05/06/16 0000 Signed Impressions: Service Date/Time: Saturday, May 07, 2016 00:04 - CONCLUSION: 1. Lobar consolidation bilaterally in the lower lobes. 2. Negative for pulmonary embolism. Michael Colbert MD Objective Remarks GENERAL: 61-year-old AA male, morbidly obese, intubated, critically ill SKIN: Warm and dry. No rash HEAD: Atraumatic. Normocephalic. EYES: Pupils equal and round around 2-3 mm bilaterally and slightly reactive. No scleral icterus. No injection or drainage. ENT: No nasal bleeding or discharge. Orotracheally intubated NECK: Trachea midline. JVD difficult to assess due to body habitus. Left IJ triple-lumen, right IJ Vas-Cath CARDIOVASCULAR: Distant due to body habitus. Regular rate and rhythm. S1, S2. Without murmur RESPIRATORY: Diminished breath sounds bilaterally due to body habitus. Breath sounds equal bilaterally. On ACV GASTROINTESTINAL: Abdomen obese, non-tender, protuberant, distended. no guarding. Normoactive bowel sounds MUSCULOSKELETAL: Extremities with 1+ edema NEUROLOGICAL: Patient is encephalopathic, off sedation since morning of 05/23. Pupils are sluggishly reactive. Bilateral lower extremity withdrawal to pain. Corneal reflex, gag reflex Procedures Percutaneous Tracheostomy in am Urinary Catheter: Yes Chaudhry insert reason: Prolonged Immobilization A/P Assessment and Plan Neuro/Psych: Bilateral basal ganglia infarcts, small punctate white matter infarcts on MRI Acute toxic metabolic encephalopathy Patient remains encephalopathic. Has been off sedation > [address] Felix, following MRI of the brain done 05/16/16 shows small punctate white matter infarcts, bilateral basal ganglia infarcts Repeat MRI brain 05/27 similar Off Seroquel and Haldol due to nonsustained V. tach Head CT 05/08, 05/16: negative acute. EEG 05/12 revealed generalized slowing right greater than left. No epileptiform activity. EEG 05/16: No seizure, severe encephalopathy. CV: Hemorrhagic shock due to left retroperitoneal hemorrhage-shock resolved Severe bradycardia and hypotension 05/17/16 most likely secondary to recurrent bleed Aberrant RCA off LCC Nonsustained V. tach single episode Diastolic heart failure Coronary artery disease Nonischemic cardiomyopathy secondary to hypertensive heart disease Hypertensive emergency Monitor HR and BP keep MAP>65mmHg On Procardia 30mg Q8, Labetalol 400 every 8, d/c Lopressor Hydralazine 25 every 8hrs As needed hydralazine/labetalol and Nitropaste Status post cardiac catheterization by Dr. Moy. No intervention performed. Known coronary artery artery disease to the first and second diagonals the LAD. Aberrant RCA off left coronary cups. Transfer to fo RCA unroofing once clinically stable Aspirin 81 mg on hold due to RP hemorrhage. (Plavix DC d 05/15/[address] Marcano in anticipation of probable unroofing surgery) Lipitor 20 mg by mouth daily held in light of elevated liver function tests 05/30 Short run 8-9 beats V-tach last evening with resolution, no intervention Pulm: Acute hypoxemic respiratory failure-extubated 05/13/16, re intubated 05/16/16 for airway protection Likely underlying STU Right upper lobe mucus plugging On PRVC/AC RR 20, TV 550, IT 1.2, PEEP:6, FIO2 35% Extubated 05/13/16. Reintubated 05/16/16 for airway protection due to severe encephalopathy Continue with vent support keep sat >92% Ventilator bundle Bronchodilator therapy every 4 hours and as needed. SBT daily as tolerated S/P percutaneous tracheostomy. 8.0 [facility]: S/P large left retroperitoneal hemorrhage 05/15 Hypoalbuminemia Elevated LFT's Continue Nepro at 50 cc an hour Continue Protonix for GI prophylaxis Colace/Senokot twice a day for bowel regimen Monitor LFT's PEG placement pending, possibly Sun or Mon /Renal: Acute kidney failure due to ATN Anuria Chaudhry for accurate I's and O's in a critically ill patient HD started 05/17/16 , Sunday Scheduled Vas Cath change today Endo: Diabetes mellitus type 2 Hyperglycemia Sliding-scale insulin Accu-Cheks to maintain euglycemia. High-dose regimen every 6 hours Heme: s/p Acute blood loss anemia with shock Large left retroperitoneal hemorrhage Right cephalic superficial thrombus left basilic thrombus/right PT THROMBUS Normocytic anemia Leukocytosis Monitor CBC, Heme is following Hematology on board, initiated therapeutic anticoagulation 05/29 Hold Heparin 6 hours prior to tracheostomy procedure Transfused 3 units PRBC stat on 05/16/16 Transfused 3 units PRBC and 2 units FFP Transfuse 1 unit PRBCs 05/19. Therapeutic Lovenox discontinued, aspirin placed on hold 75 mg IV protamine slow infusion (D/W with Dr. grimes) on 05/16/16. If patient continues to bleed consult IR for possible embolization Was on Lovenox 150 mg subcutaneous twice a day-DCd 05/16/16 Serial CBCs q 12 hrs completed HGb stable ID: Aspiration pneumonia/Enterobacter aerogenes in sputum Leukocytosis --2/2 Sputum culture with Enterobacter. Continue with abx per ID Dr. Mariee Monitor for signs of infection Pertinent cultures 05/07 - blood cultures 2 - negative 05/08 - sputum - negative 05/08 - urine - negative 05/08 - blood cultures - negative 05/13 - blood cx negative 05/13 - urine cx negative 05/16 - sputum Enterobacter aerogenes 05/16 - urine neg 131 - blood cultures neg 05/18 - blood cultures- negative 05/19 - bronchoscopy - Yeast MSK: History of spinal stenosis/laminectomy/left total knee replacement and left ring finger amputation PT evaluate and treat Access - Left IJ CVL 05/17. Right IJ venous catheter 05/17 (Vas Cath). Prophylaxis - GI - Protonix - DVT -Heparin 5000 SQ BID, SCD on L leg - Doppler US UE: Occlusive thrombus in the right distal cephalic vein. Nonocclusive thrombus in the left mid and distal basilic veins. D/W patient's and INFANT CHILDCARE PROVIDER at bedside. Critical Care: This patient remains critically ill with one or more organ systems which are or may become a threat to life. I have spent in excess of 33 minutes discontinuously in the care and management of this patient. This time is exclusive of procedures, and includes, but is not limited to, evaluation of the patient, review of the medical record, discussions with family, consultants, nursing staff, or respiratory therapy, and documentation in the medical record. Physician Kim Amaro MD Jun 01, 2016 17:03
[2016-06-01 20:03] LABS: HEMATOCRIT 29.7 % (39.0-51.0); REVIEW FLAG FINAL
[2016-06-02] VITALS (19 sets, daily range): BP systolic 130–159; BP diastolic 78–101; PULSE 84–128; RESP 19–25; TEMP 98.3–100.2; O2SAT 92–100
[2016-06-02] MEDS: LABETALOL HCL 100 MG/20 ML VIAL IV PUSH PRN ×4 (03:16→22:59)
[2016-06-02] MEDS: RESP: SODIUM CHLORIDE 3% 4 ML NEB NEB SCH ×2 (03:20→07:41)
[2016-06-02] MEDS: CHLORHEXIDINE GLUCONATE 2 % 1 PACK (2 CLOTHS) TOP SCH (04:00)
[2016-06-02] MEDS: LABETALOL HCL 200 MG TAB PO SCH ×3 (05:35→21:13)
[2016-06-02] MEDS: METOCLOPRAMIDE HCL 10 MG/2 ML VIAL IV PUSH SCH ×3 (05:35→21:13)
[2016-06-02] MEDS: NIFEdipine 10 MG CAP PO SCH ×3 (05:35→22:59)
[2016-06-02 05:54] LABS: HEMATOCRIT 31.2 % (39.0-51.0); REVIEW FLAG FINAL
[2016-06-02] MEDS: RESP: ALBUTEROL 2.5 MG/IPRATROPIUM 0.5 MG NEB (PRN) INH ×2 (06:02→07:41)
[2016-06-02] MEDS: INSULIN NovoLIN REGULAR SUPPLEMENTAL SCALE SQ SCH ×4 (07:00→19:30)
[2016-06-02] MEDS ORDERED: GLUCAGON 1 MG/ML VIAL OTHER PRN (07:15)
[2016-06-02] MEDS ORDERED: DEXTROSE 50% IN WATER 50 ML VIAL(D50) IV PUSH PRN (07:15)
--- NOTE | 2016-06-02 07:18 | HHI.CCPN ---
Subjective Remarks/Hospital Course 61-year-old AA male. Date of admission 05/05/2016. Date of consultation 2016. Past medical history includes hypertensive heart disease, hypertension, diabetes mellitus type 2 and spinal stenosis. He presented to [facility] [place] today with history of acute onset of diaphoresis, chest pain and syncope. Her documentation, Chest pain was 7 out of 10 without radiation. Later in the hospital physician, patient did have ST elevation anterior septal leads. I he had a cardiac catheterization in 2009 which revealed moderate coronary disease which documented 50-60% stenosis in the LAD diagonals 1 and 2. Recommended medical management at that time. Dr. Marcano was notified and proceed to the cardiac catheter lab. Patient sees heparin and one aspirin prior to cardiac catheterization. During heart catheterization,, patient became hypertensive, tachypneic, hypoxic and agitated including abdominal pain with nausea and vomiting. Patient was intubated by Dr. Simon and dispensed transferred to room 505a. Currently hemodynamic stable on a propofol drip. 05/06: Patient required additional sedation overnight. Was moving all 4 extremity spontaneously and strongly. Potassium is replaced overnight along with magnesium. This afternoon approximate 4 PM, patient went into a sinus bradycardia in the 40s. RN cannot locate pulse and possibly went into a PEA arrest. Patient received CPR for approximately 2 minutes. ROSC return immediately. Received 1 mg of epinephrine IV. Blood pressure was 240 systolic. Saturations were above 90% the entire time. Dr. Marcano was made aware. No new recommendations at this time. Electrolytes currently pending. Patient is currently hemodynamic stable and an arterial line/left radial has been placed 05/07: no improvement in delirium or mental status. spiking low grade fevers. 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 CT surgery consulted and declined to operate here: he will need referral once stabilized. fio2 requirements still high. CT chest also with evidence of bibasilar consolidation which may be aspiration pneumonitis vs. pneumonia now that we are 48h out from initial presentation and now spiking fevers. 05/08: delirium persists. continues to spike fevers. jolly cultured yesterday without results yet. holding sedation today. 05/09: delirium slightly improved. waking up on SAT, weakly following commands. cultures still NGTD. hypoxia slightly improved. 05/10: delirium improving. weakly following commands still. cultures still NGTD. fevers persist, although fever curve appears to be improving. hypoxia continues to improve. still remains very critically ill. 05/11: Tmax 99.9. Currently 99.1. Tolerating tube feeding. One bowel movement. Continues to have difficulty weaning ventilator. 05/12: Currently afebrile. Tolerating tube feeding. Positive BM. Increased FiO2 from 45-60%. +1 L. Arousable on sedation vacation and weakly follows commands. 05/13: Remains intubated, sedated. FiO2 now reduced to 45% (was 55% today am). Start weaning trials after starting Precedex. To control BP May use Cardene, given anomalous RCA 05/14: Extubated yesterday, remained on BiPAP overnight. Intermittently agitated. Following commands to me today, while on BiPAP. Remains on Cardene infusion for uncontrolled hypertension. Urine output 4.7 L in 24 hours 05/15: On 3 L nasal cannula. Fever trending down, breathing more comfortably. Able to communicate. Discussed with Dr. Marcano. Dr. Pendleton will be available tomorrow, will probably need transfer to [facility] for RCA unroofing 05/16: Acutely hypotensive overnight with tachycardia. MAP was 55 with greater than 130s. Received 3.5 L of normal saline bolus with improvement in blood pressure and heart rate. Lethargic on BiPAP. ABG pending, HB dropped from 10.9 to 7.8. No obvious source of bleeding. STAT 2U PRBC. STAT CT head and CT abd pelvis. R/O ICH or RP bleed. Patient received only 5mg Nicci at 2100 yesterday, no other sedation. Last dose of Lovenox was at 211, held now 05/17: Developed Hemorrhagic shock from large retroperitoneal hemorrhage night to 05/15/16. Stabilized after 3 units of PRBC and protamine. Hemoglobin 8.7 today. Remain encephalopathy and unresponsive yesterday. MRI 05/16/16 shows small punctate white matter infarcts, bilateral basal ganglia infarcts. Urology consult pending. Antiplatelet drugs on hold. Now with anuria from ATN secondary to shock. Nephrology consult pending 05/18: Developed sudden onset bradycardia in 40s, with acute hypotension yesterday evening around 5 PM. ACLS protocol initiated (did not arrest or lose pulse). Received multiple epinephrine, bicarbonate calcium and fluid boluses. Patient was placed on dopamine 20 mics per KG per minute, Levophed 20 mics per KG per minute, epinephrine 2.5 mics per minute and eventually stabilized with systolic blood pressure reading 120s. Hemoglobin on ABG was 7 and emergently transfused 3 units PRBC and 2 units FFP. Lab hemoglobin came back at 6.8. Patient also was profoundly acidemic with pH of 7.16. Patient received total 3 A of bicarbonate and bicarbonate infusion was started, minute ventilation was also increased. 2: MAXIMUM TEMPERATURE 100.3. Currently 99.5. No bowel movement. Tube feeds were restarted. FiO2 50%. PEEP at 8. 05/20: MAXIMUM TEMPERATURE 100.9. Positive BM. Tube feeds were restarted today. PT plateau. FiO2 down to 85%. Semiemergent bronchoscopy yesterday for right upper lobe airway obstruction. Resolved 05/21: MAXIMUM TEMPERATURE 100.7. Currently 99.6. Somewhat tachycardic. 2 bowel movements overnight. Tolerating tube feeds at 30 cc an hour. Had episode of emesis overnight. 05/22: Remains sedated, orally intubated on mechanical ventilation. 05/23: Remains sedated, orally intubated on mechanical ventilation. Dialyzed yesterday. 05/24: Remains sedated/encephalopathic, orally intubated on mechanical ventilation. Tolerating tube feeds. Awaiting dialysis 05/25: Remains encephalopathic, orally intubated on mechanical ventilation. Off sedation for 2 days now. PEEP decreased to to +7 10 No acute events overnight. For HD today. Afebrile. On PRVC/AC 20, TV 550, PEEP: 6, IT: 1.2 and FIO2 35%. On no sedation. Tolerating tube feeds. Subjective 05/27: Tmax 99.8. Currently 99.1. FiO2 down to 35%. Tolerating tube feeding. Positive BM. MRI brain reveals bilateral lacunar infarcts. Will likely need trach 05/28: Afebrile. The patient continues on CPAP trials 28/09 FiO2 of 35%, maintaining O2 sat at 97%. 05/29: The patient continues on CPAP trials. The patient underwent hemodialysis today. The patient is noted to be a medium dose sliding scale insulin with persistent hyperglycemia will increase to high-dose insulin sliding scale. Per hematology the patient was placed on heparin infusion initially, then discontinued.. 05/30 Tmax 100.1. S/P initiation of therapeutic anticoagulation ,serial hemoglobin stable, continue to monitor every 12 hours. Patient continues to fail CPAP trials, plan for tracheostomy, Discussed with patient spouse, she desires a trach and PEG, at this time. 05/31 Tmax 100.1. Maintaining CPAP trials occasionally 3-4 hours. Discussed with family risk and benefits of tracheostomy. Discussed with family MRI results, EEG results. Family requests continue aggressive support. Plan for percutaneous tracheostomy . GI consulted for PEG placement. 06/01 Percutaneous tracheostomy performed today. Plan for patient to go to IR for new Vas-Cath placement per nephrology. 06/02 Patient s/p trach yesterday. For PEG tube placement and HD today today. On no sedation. T: 100.2 Objective Vital Signs Date Time Temp Pulse Resp B/P Pulse Ox O2 Delivery O2 Flow Rate FiO2 06/02/16 06:00 104 06/02/16 04:04 95 45 06/02/16 04:00 100.2 23 159/91 Intake and Output 06/01/16 06/01/16 06/02/16 08:00 16:00 00:00 Intake Total 163 ml 110 ml 123 ml Output Total 100 ml 125 ml 100 ml Balance 63 ml -15 ml 23 ml Result Diagram: 06/02/16 0500 05/31/16 1400 Other Results Laboratory Tests Test 06/01/16 06/02/16 19:27 05:00 Hemoglobin 9.8 GM/DL 10.0 GM/DL Hematocrit 29.7 % 31.2 % Imaging Last Impressions Chest X-Ray 06/01/16 0000 Signed Impressions: Service Date/Time: May 14:20 - CONCLUSION: 1. Tracheostomy in good position. No pneumothorax. Mahin Peters MD Brain MRI 05/27/16 0000 Signed Impressions: Service Date/Time: Friday, May 27, 2016 12:17 - CONCLUSION: Multifocal bilateral T2 signal abnormalities in restricted diffusion concerning for bilateral lacunar infarcts. Carlitos Aguirre MD Lower Extremity Ultrasound 05/26/16 0000 Signed Impressions: Service Date/Time: Thursday, May 26, 2016 13:51 - CONCLUSION: New thrombosed right posterior tibial vein. Jonathon Peters MD FACR Upper Extremity Ultrasound 05/25/16 0000 Signed Impressions: Service Date/Time: May 08:56 - CONCLUSION: 1. Occlusive thrombus in the right distal cephalic vein. 2. Nonocclusive thrombus in the left mid and distal basilic veins. Sammy Duran MD Head CT 05/16/16 0000 Signed Impressions: Service Date/Time: Monday, May 16, 2016 08:30 - CONCLUSION: Suspected bilateral basal ganglia calcifications are unchanged. No evidence of hemorrhage, edema, mass or mass effect. Stephen Quintanilla MD Abdomen/Pelvis CT 05/16/16 0000 Signed Impressions: Service Date/Time: Monday, May 16, 2016 08:39 - CONCLUSION: There are large areas of hemorrhage including the left retroperitoneum and psoas muscle, within the mesentery and a smaller area in the right psoas muscle. They don't appear to be related to the abdominal aorta or the internal iliac arteries. There is a small focal collection hemorrhage adjacent to the left external iliac artery as it enters the pelvis, but I don't believe that is related to the large amount of hemorrhage seen elsewhere. The areas of hemorrhage are large and multi-focal. Stephen Quintanilla MD CT Angiography 05/06/16 0000 Signed Impressions: Service Date/Time: Saturday, May 07, 2016 00:04 - CONCLUSION: 1. Lobar consolidation bilaterally in the lower lobes. 2. Negative for pulmonary embolism. Michael Colbert MD Last Impressions Chest X-Ray 05/27/16 0000 Signed Impressions: Service Date/Time: Friday, May 27, 2016 02:19 - CONCLUSION: No significant change mild left base consolidation or the lines/tubes as above.. Low Johnson MD Brain MRI 05/27/16 0000 Signed Impressions: Service Date/Time: Friday, May 27, 2016 12:17 - CONCLUSION: Multifocal bilateral T2 signal abnormalities in restricted diffusion concerning for bilateral lacunar infarcts. Carlitos Aguirre MD Lower Extremity Ultrasound 05/26/16 0000 Signed Impressions: Service Date/Time: Thursday, May 26, 2016 13:51 - CONCLUSION: New thrombosed right posterior tibial vein. Jonathon Peters MD FACR Upper Extremity Ultrasound 05/25/16 0000 Signed Impressions: Service Date/Time: May 08:56 - CONCLUSION: 1. Occlusive thrombus in the right distal cephalic vein. 2. Nonocclusive thrombus in the left mid and distal basilic veins. Sammy Duran MD Head CT 05/16/16 0000 Signed Impressions: Service Date/Time: Monday, May 16, 2016 08:30 - CONCLUSION: Suspected bilateral basal ganglia calcifications are unchanged. No evidence of hemorrhage, edema, mass or mass effect. Stephen Quintanilla MD Abdomen/Pelvis CT 05/16/16 0000 Signed Impressions: Service Date/Time: Monday, May 16, 2016 08:39 - CONCLUSION: There are large areas of hemorrhage including the left retroperitoneum and psoas muscle, within the mesentery and a smaller area in the right psoas muscle. They don't appear to be related to the abdominal aorta or the internal iliac arteries. There is a small focal collection hemorrhage adjacent to the left external iliac artery as it enters the pelvis, but I don't believe that is related to the large amount of hemorrhage seen elsewhere. The areas of hemorrhage are large and multi-focal. Stephen Quintanilla MD CT Angiography 05/06/16 0000 Signed Impressions: Service Date/Time: Saturday, May 07, 2016 00:04 - CONCLUSION: 1. Lobar consolidation bilaterally in the lower lobes. 2. Negative for pulmonary embolism. Michael Colbert MD Objective Remarks GENERAL: 61-year-old AA male, morbidly obese on ventilator via trach SKIN: Warm and dry. No rash HEAD: Atraumatic. Normocephalic. EYES: Pupils equal and round around 2-3 mm bilaterally and slightly reactive. No scleral icterus. No injection or drainage. ENT: No nasal bleeding or discharge. Orotracheally intubated NECK: Trachea midline. JVD difficult to assess due to body habitus. CARDIOVASCULAR: Distant due to body habitus. Regular rate and rhythm. S1, S2. Without murmur RESPIRATORY: Diminished breath sounds bilaterally due to body habitus. Breath sounds equal bilaterally. On ACV GASTROINTESTINAL: Abdomen obese, non-tender, protuberant, distended. no guarding. Normoactive bowel sounds MUSCULOSKELETAL: Extremities with 1+ edema NEUROLOGICAL: Patient is encephalopathic, off sedation since morning of 05/23. Pupils are sluggishly reactive. Bilateral lower extremity withdrawal to pain. Corneal reflex, gag reflex A/P Assessment and Plan Neuro/Psych: Bilateral basal ganglia infarcts, small punctate white matter infarcts on MRI Acute toxic metabolic encephalopathy Patient remains encephalopathic. Has been off sedation > [address] Felix, following MRI of the brain done 05/16/16 shows small punctate white matter infarcts, bilateral basal ganglia infarcts Repeat MRI brain 05/27 similar Off Seroquel and Haldol due to nonsustained V. tach Head CT 05/08, 05/16: negative acute. EEG 05/12 revealed generalized slowing right greater than left. No epileptiform activity. EEG 05/16: No seizure, severe encephalopathy. CV: Hemorrhagic shock due to left retroperitoneal hemorrhage-shock resolved Severe bradycardia and hypotension 05/17/16 most likely secondary to recurrent bleed Aberrant RCA off LCC Nonsustained V. tach single episode Diastolic heart failure Coronary artery disease Nonischemic cardiomyopathy secondary to hypertensive heart disease Hypertensive emergency Monitor HR and BP keep MAP>65mmHg On Procardia 30mg Q8, Labetalol 200 every 8, place on Hydralazine 25mg Q 8hrs Status post cardiac catheterization by Dr. Moy. No intervention performed. Known coronary artery artery disease to the first and second diagonals the LAD. Aberrant RCA off left coronary cups. Transfer to fo RCA unroofing once clinically stable Aspirin 81 mg on hold due to RP hemorrhage. (Plavix DC d 05/15/[address] Marcano in anticipation of probable unroofing surgery) Lipitor 20 mg by mouth daily held in light of elevated liver function tests 05/30 Short run 8-9 beats V-tach last evening with resolution, no intervention Pulm: Acute hypoxemic respiratory failure-extubated 05/13/16, re intubated 05/16/16 for airway protection Likely underlying STU Right upper lobe mucus plugging On PRVC/AC RR 20, TV 630, IT 1.2, PEEP:5, FIO2 60%. Decrease FIO2 50%, check ABG S/P percutaneous tracheostomy. 8.0 Yasmine 06/01 Continue with vent support keep sat >92% Ventilator bundle, SBT daily as tolerated Bronchodilator therapy every 4 hours and as needed. Pulm toilet, trach care GI: S/P large left retroperitoneal hemorrhage 05/15 Hypoalbuminemia Elevated LFT's TF (Nepro at 50 cc an hour) on hold for PEG placement today Continue Protonix for GI prophylaxis Colace/Senokot twice a day for bowel regimen /Renal: Acute kidney failure due to ATN Anuria Chaudhry for accurate I's and O's in a critically ill patient HD started 05/17/16 , Sunday Renal- Dr. Mcintosh Endo: Diabetes mellitus type 2 Hyperglycemia Change SSI medium scale with accuchecks Q6 Heme: s/p Acute blood loss anemia with shock Large left retroperitoneal hemorrhage Right cephalic superficial thrombus left basilic thrombus/right PT THROMBUS Normocytic anemia Leukocytosis Monitor CBC, Heme is following. On Epogen with HD Hematology on board, initiated therapeutic anticoagulation 05/29 Heparin SQ held prior to tracheostomy procedure remains on hold for PEG placement today Transfused 3 units PRBC stat on 05/16/16 Transfused 3 units PRBC and 2 units FFP Transfuse 1 unit PRBCs 05/19. Therapeutic Lovenox discontinued, aspirin placed on hold 75 mg IV protamine slow infusion (D/W with Dr. mcintosh) on 05/16/16. If patient continues to bleed consult IR for possible embolization Was on Lovenox 150 mg subcutaneous twice a day-DCd 05/16/16 ID: Aspiration pneumonia/Enterobacter aerogenes in sputum Leukocytosis --Off abx per ID Dr. Mariee Monitor for signs of infection( Fever, WBC) panculture today for new onset fever(Blood, sputum, urine) Pertinent cultures 05/07 - blood cultures 2 - negative 05/08 - sputum - negative 05/08 - urine - negative 05/08 - blood cultures - negative 05/13 - blood cx negative 05/13 - urine cx negative 05/16 - sputum Enterobacter aerogenes 05/16 - urine neg 131 - blood cultures neg 05/18 - blood cultures- negative 05/19 - bronchoscopy - Yeast 05/27 Sputum Enterobacter 05/31: GNR MSK: History of spinal stenosis/laminectomy/left total knee replacement and left ring finger amputation PT evaluate and treat Access - Left IJ CVL 05/17. Right IJ venous catheter 05/17 (Vas Cath). Prophylaxis - GI - Protonix - DVT -Heparin 5000 SQ BID on hold, SCD on L leg - Doppler US UE: Occlusive thrombus in the right distal cephalic vein. Nonocclusive thrombus in the left mid and distal basilic veins. Check labs today CCT 30 mins Adryan Augustine MD Jun 02, 2016 07:18
[2016-06-02] MEDS: hydrALAZINE HCL 25 MG TAB PO SCH ×3 (07:30→22:59)
[2016-06-02] MEDS: SODIUM CHLOR 0.9% 1000 ML INJ 1,000 ML IV PRN (08:06)
[2016-06-02] MEDS: HEPARIN SODIUM - IV 10,000 UNITS/10 ML VIAL PRN (08:07)
[2016-06-02] MEDS: GENTAMICIN SULFATE (DIALYSIS USE ONLY) 20 MG/2 ML VIAL IV PRN (08:07)
[2016-06-02] MEDS: EPOETIN ALFA 10,000 UNITS/ML VIAL IV PRN (08:07)
[2016-06-02] MEDS: CHLORHEXIDINE 0.12% (ORAL KIT) 15 ML CUP MT SCH ×2 (08:36→21:12)
[2016-06-02] MEDS: SODIUM CHLORIDE 0.9% FLUSH 5 ML FLUSH IV FLUSH SCH ×2 (08:37→21:12)
[2016-06-02] MEDS: ARTIFICIAL TEARS OPTH SOLN 15 ML BTL EACH EYE SCH ×3 (08:37→17:15)
[2016-06-02] MEDS: DOCUSATE SODIUM 100 MG CAP PO SCH ×2 (08:37→21:00)
--- NOTE | 2016-06-02 09:38 | PD.ONC.PN ---
Subjective Subjective Remarks Tmax 100.2 overnight. Currently undergoing hemodialysis. Per RN he is having a PEG placement today as well as going to specials to have his Vascath changed out. Minimal oozing from tracheostomy site. Objective Data Date Time Temp Pulse Resp B/P Pulse Ox O2 Delivery O2 Flow Rate FiO2 06/02/16 08:00 60 06/02/16 08:00 119 06/02/16 08:00 98.3 119 19 148/101 96 06/02/16 07:42 95 45 06/02/16 06:00 104 06/02/16 04:04 95 45 06/02/16 04:00 45 06/02/16 04:00 100.2 116 23 159/91 96 06/02/16 04:00 116 06/02/16 02:00 119 06/02/16 01:12 96 45 06/02/16 00:00 45 06/02/16 00:00 100.2 84 22 130/78 92 06/02/16 00:00 84 06/01/16 23:08 98 45 06/01/16 22:00 85 06/01/16 20:00 99.6 110 22 136/88 94 06/01/16 20:00 45 06/01/16 20:00 110 06/01/16 19:48 98 45 06/01/16 18:11 96 45 06/01/16 18:00 86 06/01/16 16:52 92 35 06/01/16 16:00 99.4 85 22 117/73 91 06/01/16 16:00 85 06/01/16 16:00 35 06/01/16 14:22 92 60 06/01/16 14:00 120 06/01/16 13:35 100 100 06/01/16 12:03 95 100 06/01/16 12:00 99.4 82 23 162/89 99 06/01/16 12:00 35 06/01/16 12:00 82 06/01/16 10:00 119 06/02/16 06/02/16 06/02/16 07:00 15:00 23:00 Intake Total 61 ml Output Total 100 ml Balance -39 ml Result Diagram: 06/02/16 0500 05/31/16 1400 Laboratory Results Laboratory Tests Test 06/01/16 06/02/16 19:27 05:00 Hemoglobin 9.8 GM/DL 10.0 GM/DL Hematocrit 29.7 % 31.2 % Culture Results Microbiology Date/Time Procedure Status Source Growth 05/31/16 17:46 Aerobic Blood Culture - Preliminary Resulted Blood Peripheral NO GROWTH IN 1 DAY 05/31/16 17:46 Anaerobic Blood Culture - Preliminary Resulted Blood Peripheral NO GROWTH IN 1 DAY 05/31/16 17:46 Gram Stain - Final Complete Sputum Endotracheal 05/31/16 17:46 Sputum Culture - Final Complete Enterobacter Aerogenes 05/31/16 17:46 Urine Culture - Preliminary Resulted Urine Catheterized Urine IMMATURE GROWTH - REINCUBATE Administered Medications Medications (Trade) Dose Ordered Sig/Isabelle Route PRN Reason Start Time Stop Time Status Last Admin Dose Admin IV Flush (NS Flush) 2 ml UNSCH PRN IV FLUSH FLUSH AFTER USING IV ACCESS 05/05/16 17:15 05/24/16 00:59 IV Flush (NS Flush) 2 ml BID IV FLUSH 05/05/16 21:00 06/02/16 08:37 Artificial Tears (Tears Naturale Opth Soln) 1 drop TID EACH EYE 05/05/16 18:00 06/02/16 08:37 Ondansetron HCl (Zofran Inj) 4 mg Q6H PRN IV NAUSEA OR VOMITING 05/05/16 17:15 05/26/16 01:34 Docusate Sodium (Colace) 100 mg BID PO 05/05/16 21:00 05/30/16 08:35 Miscellaneous Information 1 Q361D XX 05/05/16 17:15 05/05/16 17:15 Chlorhexidine Gluconate (Chlorhexidine 2% Cloth) Taper DAILY@04 TOP 05/06/16 04:00 05/02/17 03:59 06/01/16 04:00 Aspirin (Aspirin Chew) 81 mg DAILY CHEW 05/06/16 09:00 Hold 05/15/16 08:30 Atorvastatin Calcium (Lipitor) 20 mg DAILY PO 05/06/16 09:00 Hold 05/15/16 08:32 Sennosides (Senokot) 17.2 mg Q12H PO 05/06/16 18:00 Hold 05/26/16 05:37 Furosemide (Lasix) 20 mg BID@18 PO 05/15/16 18:00 Hold 05/15/16 17:22 Chlorhexidine Gluconate 15 ml 15 ml BID@08,20 MT 05/16/16 20:00 06/02/16 08:36 Sodium Chloride 1,000 ml @ 0 mls/hr Q0M PRN IV For Prime & Rinse Back 05/17/16 12:13 06/02/16 08:06 Sodium Chloride (NS 1000 ml Inj) 1,000 ml @ 200 mls/hr Q5H PRN IV WITH DIALYSIS 05/17/16 12:13 05/31/16 08:11 IV Flush (NS Flush) 5 ml UNSCH PRN IVF WITH DIALYSIS 05/17/16 12:15 05/31/16 08:12 Heparin Sodium (Porcine) (Heparin Inj) UNSCH PRN .XX WITH DIALYSIS 05/17/16 12:15 06/02/16 08:07 Gentamicin Sulfate (Gentamicin (Dialysis) Inj) 20 mg UNSCH PRN IV WITH DIALYSIS 05/17/16 12:15 06/02/16 08:07 Epoetin Adonay 32479 units 10,000 units UNSCH PRN IV WITH DIALYSIS 05/17/16 12:15 06/02/16 08:07 Midazolam HCl 100 ml @ 0 mls/hr TITRATE IV 05/17/16 21:45 05/23/16 00:27 Fentanyl Citrate (fentaNYL DRIP) 250 ml @ 0 mls/hr TITRATE IV 05/18/16 20:00 05/23/16 00:27 Nifedipine (Procardia) 30 mg Q8HR PO 05/25/16 14:00 06/02/16 05:35 Hydralazine HCl (Apresoline Inj) 10 mg Q1HR PRN IV PUSH SBP>160, DBP>90 05/27/16 18:00 05/29/16 16:18 Labetalol HCl (Trandate Inj) 10 mg Q1HR PRN IV PUSH SBP>160, DBP>90, HR>65 05/27/16 17:30 06/02/16 05:36 Metoclopramide HCl (Reglan Inj) 5 mg Q8HR IV PUSH 05/27/16 22:00 06/02/16 05:35 Labetalol HCl (Trandate) 200 mg Q8HR PO 05/27/16 22:00 06/02/16 05:35 Heparin Sodium (Porcine) (Heparin Inj) 5,000 units Q12HR SQ 05/30/16 09:00 Hold 05/31/16 20:58 Acetaminophen (Tylenol 650 Mg/ 20 ml Liq) 650 mg Q6H PRN TUBE TEMP > 100.5 05/31/16 13:30 06/01/16 03:44 Objective Remarks GENERAL: Supine in bed. Mechanically ventilated. SKIN: Warm and dry. HEAD: Normocephalic. NECK: Tracheostomy in place. No bleeding. CARDIOVASCULAR: +S1/S2. RESPIRATORY: Scattered rhonchi. 35% Fio2. GASTROINTESTINAL: Abdomen distended. NG tube to L nare. EXTREMITIES: +Anasarca. NEUROLOGICAL: Sedation has been off. Pt not responsive to pain or opening eyes. Assessment/Plan Problem List: (1) Occlusive thrombus Status: Acute Plan: -- US on 05/25/16 shows occlusive thrombus to R distal cephalic vein -- US on 05/18 and 05/26 shows clot to R posterior tibial vein. Per Dr. Peters there has been propagation of the clot between 05/18 and 05/26. (2) Retroperitoneal bleed Status: Acute Plan: -- Lg areas of hemorrhage involving the left peritoneum psoas muscle, the mesentery as well as area adjacent to the left external iliac artery found on CT 05/16 -- Daily CBC -- Repeat CT Abdomen once stable (3) Anemia Status: Acute Plan: -- Transfuse to keep Hgb greater than 8. -- Worsening anemia concerning for recurrent bleed to retroperitoneum. Assessment 62 y/o male who presented to the ED with chest pain and was found to be in acute STEMI. Plan 1. Mild oozing from tracheostomy site. 2. Repeat US to legs in a few days to assess clot; he may benefit from IVC filter. 3. Hold SQ heparin today while he undergoes invasive procedures. 4. Restart prophylactic heparin tonight if no bleeding. 5. Supportive care. Attending Statement The exam, history, and the medical decision-making described in the above note were completed with the assistance of the mid-level provider. I reviewed and agree with the findings presented. I attest that I had a [id number] encounter with the patient on the same day, and personally performed and documented my assessment and findings in the medical record. Problem Qualifiers (1) Anemia: Jessica Canas Jun 02, 2016 09:38 Carmelo Veras MD Jun 02, 2016 22:27
[2016-06-02 10:02] LABS: AUTOMATED NEUTROPHIL # 14.6 TH/MM3 (1.8-7.7); BASOPHIL # 0.1 TH/MM3 (0-0.2); BASOPHIL % 0.5 % (0.0-2.0); EOSINOPHIL # 0.1 TH/MM3 (0-0.4); EOSINOPHIL % 0.8 % (0.0-4.0); HEMATOCRIT 32.8 % (39.0-51.0); HEMO FLAGS DIFF FINAL; LYMPH % 4.9 % (9.0-44.0); LYMPHOCYTE # 0.8 TH/MM3 (1.0-4.8); MEAN CELL VOLUME 88.4 FL (80.0-100.0); MEAN CORPUSCULAR HEMOGLOBIN 29.1 PG (27.0-34.0); MEAN CORPUSCULAR HGB CONC 32.9 % (32.0-36.0); MONO % 7.3 % (0.0-8.0); NEUT % 86.5 % (16.0-70.0); PLATELET COUNT 322 TH/MM3 (150-450); RED BLOOD COUNT 3.71 MIL/MM3 (4.50-5.90); WHITE BLOOD COUNT 16.9 TH/MM3 (4.0-11.0)
--- NOTE | 2016-06-02 10:30 | HHI.NPPN ---
Subjective History of Present Illness 61 year old with ARF, CHF, Respiratory failure Additional Remarks Patient remain s/p Trach and off sedation, remain unresponsive Objective Data Data 06/01/16 06/02/16 19:00 07:00 Intake Total 110 ml 184 ml Output Total 125 ml 200 ml Balance -15 ml -16 ml IV Total 110 ml 134 ml Tube Irrigant 50 ml Output Urine Total 125 ml 200 ml # Bowel Movements 1 2 Vital Signs Date Time Temp Pulse Resp B/P Pulse Ox O2 Delivery O2 Flow Rate FiO2 06/02/16 08:00 60 06/02/16 08:00 119 06/02/16 08:00 98.3 119 19 148/101 96 06/02/16 07:42 95 45 06/02/16 06:00 104 06/02/16 04:04 95 45 06/02/16 04:00 45 06/02/16 04:00 100.2 116 23 159/91 96 06/02/16 04:00 116 06/02/16 02:00 119 06/02/16 01:12 96 45 06/02/16 00:00 45 06/02/16 00:00 100.2 84 22 130/78 92 06/02/16 00:00 84 06/01/16 23:08 98 45 06/01/16 22:00 85 06/01/16 20:00 99.6 110 22 136/88 94 06/01/16 20:00 45 06/01/16 20:00 110 06/01/16 19:48 98 45 06/01/16 18:11 96 45 06/01/16 18:00 86 06/01/16 16:52 92 35 06/01/16 16:00 99.4 85 22 117/73 91 06/01/16 16:00 85 06/01/16 16:00 35 06/01/16 14:22 92 60 06/01/16 14:00 120 06/01/16 13:35 100 100 06/01/16 12:03 95 100 06/01/16 12:00 99.4 82 23 162/89 99 06/01/16 12:00 35 06/01/16 12:00 82 -: 06/02/16 0854 05/31/16 1400 Microbiology 06/02/16 Aerobic Blood Culture, Received Pending 06/02/16 Anaerobic Blood Culture, Received Pending 06/02/16 Aerobic Blood Culture, Received Pending 06/02/16 Anaerobic Blood Culture, Received Pending 06/02/16 Gram Stain, Received Pending 06/02/16 Sputum Culture, Received Pending Physical Exam General Appearance: Obese Neck Neck Exam: Neck Supple Pulmonary Resp Exam: Rhonchi, Decreased Bases, Diminished Breath Sounds, Poor Inspiratory Effort Cardiology CV Exam: Tachycardia Gastrointestinal/Abdomen GI Exam: Soft, Non-Tender, Distended Extremeties Extremities Exam: Moderate Edema, Pitting Edema, Dependent Edema Neurologic Neuro Exam: Unresponsive Assessment/Plan Problem List: (1) Acute renal failure Plan: Patient has oliguric acute renal failure and remains essentially oliguric. Continue MWF BUN and Creatinine remain elevated. 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 Plan: Cardiology following (4) Acute hypoxemic respiratory failure Plan: On ventilator (5) Hypertensive emergency Plan: BP improved (6) Diabetes mellitus Plan: Continue monitor blood glucose (7) CAD (coronary artery disease) Plan: Presented with STEMI, follow with cardiology (8) Subsequent ST elevation (STEMI) myocardial infarction of anterior wall Plan: Planned transfer to [facility] when stable. No intervention performed here. 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
[2016-06-02 10:34] LABS: BACTERIA, URINE MOD /hpf; BLOOD, URINE LARGE (NEG); GLUCOSE,URINE NEG (NEG); GRANULAR CAST, URINE 4 /lpf; HYALINE CAST, URINE 9 /lpf (RARE); KETONE, URINE NEG (NEG); NITRITE,URINE NEG (NEG); PH, URINE 6.5 (5.0-8.5); SQUAMOUS EPITHELIAL CELL URINE 1 /hpf (0-5); TRANSITIONAL EPI CELLS, URINE <1 /hpf
[2016-06-02 10:44] LABS: COMMENT (UR) CATH-CULTURE IND; CULTURE IF INDICATED CATH CULTURE IND; URINE COLOR YELLOW (YELLW/STRAW)
[2016-06-02] MEDS: RESP: ALBUTEROL 2.5 MG/IPRATROPIUM 0.5 MG NEB (SCH) NEB ×3 (11:01→22:00)
[2016-06-02 11:54] LABS: BLOOD GAS CARBOXYHEMOGLOBIN 2.1 % (0-4); BLOOD GAS HCO3 23 mmol/L (22-26); BLOOD GAS METHEMOGLOBIN 1.3 % (0-2); BLOOD GAS O2 HGB SATURATION 95 % (90-100); BLOOD GAS OXYGEN CONTENT 15.5 Vol % (12.0-20.0); BLOOD GAS PCO2 34 mmHg (38-42); BLOOD GAS PO2 128 mmHg (61-120); BLOOD GAS TOTAL HGB 11.4 G/DL (12.0-16.0); CRITICAL VALUE NO; TEMP CORR TO 98.6
[2016-06-02 11:55] LABS: DRAW SITE RT RADIAL; FIO2 45 %; NUMBER OF ARTERIAL PUNCTURES 1; OXYGEN DEVICE SEE COMMENTS; STAT NO
[2016-06-02 12:34] LABS: BICARBONATE 25.9 MEQ/L (21.0-32.0); POTASSIUM 4.3 MEQ/L (3.5-5.1)
[2016-06-02] MEDS ORDERED: MIDAZOLAM HCL 2 MG/2 ML VIAL ONE (13:24)
[2016-06-02] MEDS ORDERED: IOHEXOL 350 MG/ML 50 ML BTL (for RAD DIAG) G-TUBE ONE (14:17)
[2016-06-02] MEDS ORDERED: HEPARIN SODIUM - IV 10,000 UNITS/10 ML VIAL IVF PRN (14:30)
--- NOTE | 2016-06-02 14:33 | PD.RAD ---
Post Procedure Progress Note Pre Procedure Diagnosis: (1) Unable to eat (2) Line sepsis associated with dialysis catheter Post Procedure Diagnosis: (1) Unable to eat (2) Line sepsis associated with dialysis catheter Procedure Date: Jun 02, 2016 Supervising Radiologist: Isidro Flor Proceduralist/Assist: Prabha Huang, RT(R)(CV), Alberta Bustos RT(R) Anesthesia: Local Plan of Activity Patient to Unit: Critical Care Patient Condition: Poor See PACS Report for procedural detail/treatment Feeding Tube Gastrostomy Placement Amharic: 18 Central Venous Access Device Procedure 1 Left Subclavian Hemodialysis Catheter Non-Tunneled (Modified 27 cm cuff-tip permcath (cuff removed)) Placement dual lumen Amharic: 16 Isidro Flor MD Jun 02, 2016 14:33
--- NOTE | 2016-06-02 15:58 | RADRPT ---
EXAM DATE/TIME: 06/02/2016 12:31 [facility] COMPARISON: No previous studies available for comparison. INDICATIONS : Patient presents as STEMI in need of G-tube placement. MEDICAL HISTORY : HTN, CHF, Diabetes, CAD, [place] SURGICAL HISTORY : Meniscus surgery, Back surgery ENCOUNTER: Initial ACUITY: 1 month PAIN SCORE: Nonresponsive. FLUORO TIME: 5.5 minutes SEDATION TIME: 40 minutes CONTRAST: 20 cc Omnipaque (iohexol) 350 MEDICATION(S): 1.) 100 mcg fentanyl (Sublimaze) IV 2.) 2 mg midazolam (Versed) IV 3.) 1 mg glucagon (Gluca-Gen) IV DEVICE(S): 1.) 18 Fr gastrostomy tube PROCEDURE : 1. Limited abdominal ultrasound. 2. Fluoroscopically guided gastrostomy tube placement. 3. Conscious sedation with continuous EKG and oximetry monitoring. The risks, benefits and alternatives to the procedure were explained and verbal and written consent w as obtained. The site was prepped in sterile fashion. Full sterile technique was used, including ca p, mask, sterile gloves and gown and a large sterile sheet. Hand hygiene and 2% chlorhexidine and/or betadine/alcohol prep was utilized per protocol for cutaneous antisepsis. The skin and subcutaneous tissues were infiltrated with local anesthetic solution. Ultrasound was used to jagjit the position of the liver. The stomach was insufflated with room air. Th ree percutaneous fasteners were placed to secure the anterior gastric wall. A small incision was made between the fasteners. The stomach was accessed with an 18 gauge needle. A n 0.035 wire was advanced into the small bowel. The tract was dilated. The gastrostomy tube was int roduced through a peel-away sheath. The position was confirmed with an injection of contrast. Conscious sedation was performed with the prescribed dosages and duration as above. The patient teto ated the procedure well and there were no complications. EKG and oximetry remained stable throughout the procedure. The patient was sent to post anesthesia recovery in stable condition. CONCLUSION: Uncomplicated gastrostomy tube placement as above. Isidro Flor MD on June 02, 2016 at 15:56 Board Certified Radiologist. This report was verified electronically.
--- NOTE | 2016-06-02 15:58 | RADRPT ---
EXAM DATE/TIME: 06/02/2016 12:31 [facility] COMPARISON: No previous studies available for comparison. INDICATIONS : Patient presents as STEMI in need of non-tunnelled dialysis catheter placement. MEDICAL HISTORY : HTN, CHF, Diabetes, CAD, [place] SURGICAL HISTORY : Meniscus surgery, Back surgery ENCOUNTER: Initial ACUITY: 1 month PAIN SCORE: Nonresponsive. FLUORO TIME: 5.5 minutes SEDATION TIME: 40minutes ACCESS: Left subclavian vein MEDICATION(S): 1.) 2 mg midazolam (Versed) IV 2.) 100 mcg fentanyl (Sublimaze) IV DEVICE(S): 1.) 15 Ni[place]an dual lumen 27 cm Groves II Plus catheter (modified with cuff removal) PROCEDURE : 1. Ultrasound guided venipuncture. 2. Fluoroscopic guidance. 3. Central line placement. The risks, benefits and alternatives to the procedure were explained and verbal and written consent w as obtained. The site was prepped in sterile fashion. Full sterile technique was used, including ca p, mask, sterile gloves and gown and a large sterile sheet. Hand hygiene and 2% chlorhexidine prep w as utilized per protocol for cutaneous antisepsis with appropriate dry time for site. The skin and subcutaneous tissues were infiltrated with local anesthetic solution. A suitable site a aston the vein was selected with ultrasound and fluoroscopic guidance. A small incision was made. Th e vein was accessed under direct ultrasound visualization using the micropuncture technique. The mary ropuncture set was exchanged for a 0.035 wire. The tract was dilated. The catheter was advanced int o position under direct fluoroscopic visualization. Please note, due to the left subclavian access, the distance of the central venous system was longer than the longest Vas-Cath catheter available (24 cm). Therefore, a 27 cm cuff to tip PermCath catheter was modified, the cuff was removed and used as a temporary device. The catheter was fixed in place with suture and a sterile dressing was applied. The patient tolerated the procedure well and there were no complications. CONCLUSION: 1. Uncomplicated line placement as above. 2. Patient currently has a modified left subclavian PermCath catheter that is being utilized as a tem porary access. Isidro Flor MD on June 02, 2016 at 15:53 Board Certified Radiologist. This report was verified electronically.
[2016-06-02] MEDS: HEPARIN SODIUM - SQ 10,000 UNITS/ML VIAL SQ SCH (21:12)
[2016-06-03] VITALS (18 sets, daily range): BP systolic 101–155; BP diastolic 60–90; PULSE 82–125; RESP 18–22; TEMP 97.8–99.9; O2SAT 98–100
[2016-06-03] MEDS: INSULIN NovoLIN REGULAR SUPPLEMENTAL SCALE SQ SCH ×4 (02:20→19:51)
[2016-06-03] MEDS: CHLORHEXIDINE GLUCONATE 2 % 1 PACK (2 CLOTHS) TOP SCH (03:11)
[2016-06-03] MEDS: LABETALOL HCL 100 MG/20 ML VIAL IV PUSH PRN ×2 (03:11→19:51)
[2016-06-03] MEDS: RESP: ALBUTEROL 2.5 MG/IPRATROPIUM 0.5 MG NEB (SCH) NEB ×4 (03:18→20:29)
[2016-06-03] MEDS: LABETALOL HCL 200 MG TAB PO SCH ×3 (05:20→22:25)
[2016-06-03] MEDS: METOCLOPRAMIDE HCL 10 MG/2 ML VIAL IV PUSH SCH ×3 (05:20→22:25)
[2016-06-03] MEDS: hydrALAZINE HCL 25 MG TAB PO SCH ×3 (05:20→22:25)
[2016-06-03] MEDS: NIFEdipine 10 MG CAP PO SCH ×3 (05:23→22:25)
[2016-06-03 05:38] LABS: AUTOMATED NEUTROPHIL # 14.3 TH/MM3 (1.8-7.7); BASOPHIL # 0.1 TH/MM3 (0-0.2); BASOPHIL % 0.4 % (0.0-2.0); EOSINOPHIL # 0.1 TH/MM3 (0-0.4); EOSINOPHIL % 0.6 % (0.0-4.0); HEMATOCRIT 29.9 % (39.0-51.0); HEMO FLAGS DIFF FINAL; LYMPH % 7.7 % (9.0-44.0); LYMPHOCYTE # 1.3 TH/MM3 (1.0-4.8); MEAN CELL VOLUME 89.1 FL (80.0-100.0); MEAN CORPUSCULAR HEMOGLOBIN 28.5 PG (27.0-34.0); MONO % 8.6 % (0.0-8.0); NEUT % 82.7 % (16.0-70.0); PLATELET COUNT 269 TH/MM3 (150-450); RED BLOOD COUNT 3.36 MIL/MM3 (4.50-5.90); RED CELL DISTRIBUTION WIDTH 16.7 % (11.6-17.2); WHITE BLOOD COUNT 17.3 TH/MM3 (4.0-11.0)
[2016-06-03 06:19] LABS: POTASSIUM 4.4 MEQ/L (3.5-5.1)
[2016-06-03] MEDS: DOCUSATE SODIUM 100 MG CAP PO SCH ×2 (08:00→19:50)
[2016-06-03] MEDS: CHLORHEXIDINE 0.12% (ORAL KIT) 15 ML CUP MT SCH ×2 (08:01→19:50)
[2016-06-03] MEDS: ARTIFICIAL TEARS OPTH SOLN 15 ML BTL EACH EYE SCH ×3 (08:01→18:16)
[2016-06-03] MEDS: SODIUM CHLORIDE 0.9% FLUSH 5 ML FLUSH IV FLUSH SCH ×2 (08:02→19:50)
--- NOTE | 2016-06-03 08:03 | HHI.CCPN ---
Subjective Remarks/Hospital Course 61-year-old AA male. Date of admission 05/05/2016. Date of consultation 2016. Past medical history includes hypertensive heart disease, hypertension, diabetes mellitus type 2 and spinal stenosis. He presented to [facility] [place] today with history of acute onset of diaphoresis, chest pain and syncope. Her documentation, Chest pain was 7 out of 10 without radiation. Later in the hospital physician, patient did have ST elevation anterior septal leads. I he had a cardiac catheterization in 2009 which revealed moderate coronary disease which documented 50-60% stenosis in the LAD diagonals 1 and 2. Recommended medical management at that time. Dr. Marcano was notified and proceed to the cardiac catheter lab. Patient sees heparin and one aspirin prior to cardiac catheterization. During heart catheterization,, patient became hypertensive, tachypneic, hypoxic and agitated including abdominal pain with nausea and vomiting. Patient was intubated by Dr. Simon and dispensed transferred to room 505a. Currently hemodynamic stable on a propofol drip. 05/06: Patient required additional sedation overnight. Was moving all 4 extremity spontaneously and strongly. Potassium is replaced overnight along with magnesium. This afternoon approximate 4 PM, patient went into a sinus bradycardia in the 40s. RN cannot locate pulse and possibly went into a PEA arrest. Patient received CPR for approximately 2 minutes. ROSC return immediately. Received 1 mg of epinephrine IV. Blood pressure was 240 systolic. Saturations were above 90% the entire time. Dr. Marcano was made aware. No new recommendations at this time. Electrolytes currently pending. Patient is currently hemodynamic stable and an arterial line/left radial has been placed 05/07: no improvement in delirium or mental status. spiking low grade fevers. 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 CT surgery consulted and declined to operate here: he will need referral once stabilized. fio2 requirements still high. CT chest also with evidence of bibasilar consolidation which may be aspiration pneumonitis vs. pneumonia now that we are 48h out from initial presentation and now spiking fevers. 05/08: delirium persists. continues to spike fevers. jolly cultured yesterday without results yet. holding sedation today. 05/09: delirium slightly improved. waking up on SAT, weakly following commands. cultures still NGTD. hypoxia slightly improved. 05/10: delirium improving. weakly following commands still. cultures still NGTD. fevers persist, although fever curve appears to be improving. hypoxia continues to improve. still remains very critically ill. 05/11: Tmax 99.9. Currently 99.1. Tolerating tube feeding. One bowel movement. Continues to have difficulty weaning ventilator. 05/12: Currently afebrile. Tolerating tube feeding. Positive BM. Increased FiO2 from 45-60%. +1 L. Arousable on sedation vacation and weakly follows commands. 05/13: Remains intubated, sedated. FiO2 now reduced to 45% (was 55% today am). Start weaning trials after starting Precedex. To control BP May use Cardene, given anomalous RCA 05/14: Extubated yesterday, remained on BiPAP overnight. Intermittently agitated. Following commands to me today, while on BiPAP. Remains on Cardene infusion for uncontrolled hypertension. Urine output 4.7 L in 24 hours 05/15: On 3 L nasal cannula. Fever trending down, breathing more comfortably. Able to communicate. Discussed with Dr. Marcano. Dr. Pendleton will be available tomorrow, will probably need transfer to [facility] for RCA unroofing 05/16: Acutely hypotensive overnight with tachycardia. MAP was 55 with greater than 130s. Received 3.5 L of normal saline bolus with improvement in blood pressure and heart rate. Lethargic on BiPAP. ABG pending, HB dropped from 10.9 to 7.8. No obvious source of bleeding. STAT 2U PRBC. STAT CT head and CT abd pelvis. R/O ICH or RP bleed. Patient received only 5mg Nicci at 2100 yesterday, no other sedation. Last dose of Lovenox was at 211, held now 05/17: Developed Hemorrhagic shock from large retroperitoneal hemorrhage night to 05/15/16. Stabilized after 3 units of PRBC and protamine. Hemoglobin 8.7 today. Remain encephalopathy and unresponsive yesterday. MRI 05/16/16 shows small punctate white matter infarcts, bilateral basal ganglia infarcts. Urology consult pending. Antiplatelet drugs on hold. Now with anuria from ATN secondary to shock. Nephrology consult pending 05/18: Developed sudden onset bradycardia in 40s, with acute hypotension yesterday evening around 5 PM. ACLS protocol initiated (did not arrest or lose pulse). Received multiple epinephrine, bicarbonate calcium and fluid boluses. Patient was placed on dopamine 20 mics per KG per minute, Levophed 20 mics per KG per minute, epinephrine 2.5 mics per minute and eventually stabilized with systolic blood pressure reading 120s. Hemoglobin on ABG was 7 and emergently transfused 3 units PRBC and 2 units FFP. Lab hemoglobin came back at 6.8. Patient also was profoundly acidemic with pH of 7.16. Patient received total 3 A of bicarbonate and bicarbonate infusion was started, minute ventilation was also increased. 2: MAXIMUM TEMPERATURE 100.3. Currently 99.5. No bowel movement. Tube feeds were restarted. FiO2 50%. PEEP at 8. 05/20: MAXIMUM TEMPERATURE 100.9. Positive BM. Tube feeds were restarted today. PT plateau. FiO2 down to 85%. Semiemergent bronchoscopy yesterday for right upper lobe airway obstruction. Resolved 05/21: MAXIMUM TEMPERATURE 100.7. Currently 99.6. Somewhat tachycardic. 2 bowel movements overnight. Tolerating tube feeds at 30 cc an hour. Had episode of emesis overnight. 05/22: Remains sedated, orally intubated on mechanical ventilation. 05/23: Remains sedated, orally intubated on mechanical ventilation. Dialyzed yesterday. 05/24: Remains sedated/encephalopathic, orally intubated on mechanical ventilation. Tolerating tube feeds. Awaiting dialysis 05/25: Remains encephalopathic, orally intubated on mechanical ventilation. Off sedation for 2 days now. PEEP decreased to to +7 10 No acute events overnight. For HD today. Afebrile. On PRVC/AC 20, TV 550, PEEP: 6, IT: 1.2 and FIO2 35%. On no sedation. Tolerating tube feeds. Subjective 05/27: Tmax 99.8. Currently 99.1. FiO2 down to 35%. Tolerating tube feeding. Positive BM. MRI brain reveals bilateral lacunar infarcts. Will likely need trach 05/28: Afebrile. The patient continues on CPAP trials 28/09 FiO2 of 35%, maintaining O2 sat at 97%. 05/29: The patient continues on CPAP trials. The patient underwent hemodialysis today. The patient is noted to be a medium dose sliding scale insulin with persistent hyperglycemia will increase to high-dose insulin sliding scale. Per hematology the patient was placed on heparin infusion initially, then discontinued.. 05/30 Tmax 100.1. S/P initiation of therapeutic anticoagulation ,serial hemoglobin stable, continue to monitor every 12 hours. Patient continues to fail CPAP trials, plan for tracheostomy, Discussed with patient spouse, she desires a trach and PEG, at this time. 05/31 Tmax 100.1. Maintaining CPAP trials occasionally 3-4 hours. Discussed with family risk and benefits of tracheostomy. Discussed with family MRI results, EEG results. Family requests continue aggressive support. Plan for percutaneous tracheostomy . GI consulted for PEG placement. 06/01 Percutaneous tracheostomy performed today. Plan for patient to go to IR for new Vas-Cath placement per nephrology. 06/02 Patient s/p trach yesterday. For PEG tube placement and HD today today. On no sedation. T: 100.2 06/03 Patient s/p PEG tube placement and HD yesterday with removal 5L. Afebrile. Remains off sedation. Objective Vital Signs Date Time Temp Pulse Resp B/P Pulse Ox O2 Delivery O2 Flow Rate FiO2 06/03/16 06:00 113 06/03/16 04:14 100 45 06/03/16 04:00 99.1 18 155/89 Intake and Output 06/02/16 06/02/16 06/03/16 08:00 16:00 00:00 Intake Total 61 ml 34 ml 0 ml Output Total 100 ml 5100 ml 75 ml Balance -39 ml -5066 ml -75 ml Result Diagram: 06/03/16 0515 06/03/16 0515 Other Results Laboratory Tests Test 06/02/16 06/02/16 06/02/16 06/02/16 08:54 09:30 11:44 12:00 White Blood Count 16.9 TH/MM3 Red Blood Count 3.71 MIL/MM3 Hemoglobin 10.8 GM/DL Hematocrit 32.8 % Mean Corpuscular Volume 88.4 FL Mean Corpuscular Hemoglobin 29.1 PG Mean Corpuscular Hemoglobin 32.9 % Concent Red Cell Distribution Width 17.0 % Platelet Count 322 TH/MM3 Mean Platelet Volume 8.9 FL Neutrophils (%) (Auto) 86.5 % Lymphocytes (%) (Auto) 4.9 % Monocytes (%) (Auto) 7.3 % Eosinophils (%) (Auto) 0.8 % Basophils (%) (Auto) 0.5 % Neutrophils # (Auto) 14.6 TH/MM3 Lymphocytes # (Auto) 0.8 TH/MM3 Monocytes # (Auto) 1.2 TH/MM3 Eosinophils # (Auto) 0.1 TH/MM3 Basophils # (Auto) 0.1 TH/MM3 CBC Comment DIFF FINAL Differential Comment Urine Color YELLOW Urine Turbidity HAZY Urine pH 6.5 Urine Specific [place] 1.015 Urine Protein 300 mg/dL Urine Glucose (UA) NEG mg/dL Urine Ketones NEG mg/dL Urine Occult Blood LARGE Urine Nitrite NEG Urine Bilirubin NEG Urine Urobilinogen LESS THAN 2.0 MG/DL Urine Leukocyte Esterase LARGE Urine RBC 63 /hpf Urine WBC /hpf Urine WBC Clumps RARE Urine Squamous Epithelial 1 /hpf Cells Urine Transitional Epithelial <1 /hpf Cells Urine Bacteria MOD /hpf Urine Hyaline Casts 9 /lpf Urine Granular Casts 4 /lpf Urine Yeast (Budding) MOD Microscopic Urinalysis Comment CATH-CULTURE IND Blood Gas Puncture Site RT RADIAL Blood Gas Patient Temperature 98.6 Blood Gas HCO3 23 mmol/L Blood Gas Base Excess -1.0 mmol/L Blood Gas Oxygen Saturation 95 % Arterial Blood pH 7.44 Arterial Blood Partial 34 mmHg Pressure CO2 Arterial Blood Partial 128 mmHg Pressure O2 Arterial Blood Oxygen Content 15.5 Vol % Arterial Blood 2.1 % Carboxyhemoglobin Arterial Blood Methemoglobin 1.3 % Blood Gas Hemoglobin 11.4 G/DL Oxygen Delivery Device SEE COMMENTS Blood Gas Inspired Oxygen 45 % Sodium Level 141 MEQ/L Potassium Level 4.3 MEQ/L Chloride Level 101 MEQ/L Carbon Dioxide Level 25.9 MEQ/L Anion Gap 14 MEQ/L Blood Urea Nitrogen 103 MG/DL Creatinine 6.26 MG/DL Estimat Glomerular Filtration 11 ML/MIN Rate Random Glucose 156 MG/DL Calcium Level 8.1 MG/DL Test 06/03/16 05:15 White Blood Count 17.3 TH/MM3 Red Blood Count 3.36 MIL/MM3 Hemoglobin 9.6 GM/DL Hematocrit 29.9 % Mean Corpuscular Volume 89.1 FL Mean Corpuscular Hemoglobin 28.5 PG Mean Corpuscular Hemoglobin 32.0 % Concent Red Cell Distribution Width 16.7 % Platelet Count 269 TH/MM3 Mean Platelet Volume 8.5 FL Neutrophils (%) (Auto) 82.7 % Lymphocytes (%) (Auto) 7.7 % Monocytes (%) (Auto) 8.6 % Eosinophils (%) (Auto) 0.6 % Basophils (%) (Auto) 0.4 % Neutrophils # (Auto) 14.3 TH/MM3 Lymphocytes # (Auto) 1.3 TH/MM3 Monocytes # (Auto) 1.5 TH/MM3 Eosinophils # (Auto) 0.1 TH/MM3 Basophils # (Auto) 0.1 TH/MM3 CBC Comment DIFF FINAL Differential Comment Sodium Level 142 MEQ/L Potassium Level 4.4 MEQ/L Chloride Level 102 MEQ/L Carbon Dioxide Level 25.0 MEQ/L Anion Gap 15 MEQ/L Blood Urea Nitrogen 120 MG/DL Creatinine 7.28 MG/DL Estimat Glomerular Filtration 9 ML/MIN Rate Random Glucose 149 MG/DL Calcium Level 7.6 MG/DL Imaging Last Impressions Gastrostomy Tube Placement 06/02/16 0000 Signed Impressions: Service Date/Time: Thursday, June 02, 2016 12:31 - CONCLUSION: Uncomplicated gastrostomy tube placement as above. Isidro Flor MD Catheter Placement X-Ray 06/02/16 0000 Signed Impressions: Service Date/Time: Thursday, June 02, 2016 12:31 - CONCLUSION: 1. Uncomplicated line placement as above. 2. Patient currently has a modified left subclavian PermCath catheter that is being utilized as a temporary access. Isidro Flor MD Chest X-Ray 06/01/16 0000 Signed Impressions: Service Date/Time: May 14:20 - CONCLUSION: 1. Tracheostomy in good position. No pneumothorax. Mahin Peters MD Brain MRI 05/27/16 0000 Signed Impressions: Service Date/Time: Friday, May 27, 2016 12:17 - CONCLUSION: Multifocal bilateral T2 signal abnormalities in restricted diffusion concerning for bilateral lacunar infarcts. Carlitos Aguirre MD Lower Extremity Ultrasound 05/26/16 0000 Signed Impressions: Service Date/Time: Thursday, May 26, 2016 13:51 - CONCLUSION: New thrombosed right posterior tibial vein. Jonathon Peters MD FACR Upper Extremity Ultrasound 05/25/16 0000 Signed Impressions: Service Date/Time: May 08:56 - CONCLUSION: 1. Occlusive thrombus in the right distal cephalic vein. 2. Nonocclusive thrombus in the left mid and distal basilic veins. Sammy Durna MD Head CT 05/16/16 0000 Signed Impressions: Service Date/Time: Monday, May 16, 2016 08:30 - CONCLUSION: Suspected bilateral basal ganglia calcifications are unchanged. No evidence of hemorrhage, edema, mass or mass effect. Stephen Quintanilla MD Abdomen/Pelvis CT 05/16/16 0000 Signed Impressions: Service Date/Time: Monday, May 16, 2016 08:39 - CONCLUSION: There are large areas of hemorrhage including the left retroperitoneum and psoas muscle, within the mesentery and a smaller area in the right psoas muscle. They don't appear to be related to the abdominal aorta or the internal iliac arteries. There is a small focal collection hemorrhage adjacent to the left external iliac artery as it enters the pelvis, but I don't believe that is related to the large amount of hemorrhage seen elsewhere. The areas of hemorrhage are large and multi-focal. Stephen Quintanilla MD CT Angiography 05/06/16 0000 Signed Impressions: Service Date/Time: Saturday, May 07, 2016 00:04 - CONCLUSION: 1. Lobar consolidation bilaterally in the lower lobes. 2. Negative for pulmonary embolism. Michael Colbert MD Objective Remarks GENERAL: 61-year-old AA male, morbidly obese on ventilator via trach SKIN: Warm and dry. No rash HEAD: Atraumatic. Normocephalic. EYES: Pupils equal and round around 2-3 mm bilaterally and slightly reactive. No scleral icterus. No injection or drainage. ENT: No nasal bleeding or discharge. Orotracheally intubated NECK: Trachea midline. JVD difficult to assess due to body habitus. CARDIOVASCULAR: Tachycardic nl S1, S2. Without murmur RESPIRATORY: Diminished breath sounds bilaterally due to body habitus. Breath sounds equal bilaterally. On ACV GASTROINTESTINAL: Abdomen obese, non-tender, protuberant, distended. no guarding. Normoactive bowel sounds MUSCULOSKELETAL: Extremities with 1+ edema NEUROLOGICAL: Patient is encephalopathic, off sedation since morning of 05/23. Pupils are sluggishly reactive. Bilateral lower extremity withdrawal to pain. Corneal reflex, gag reflex A/P Assessment and Plan Neuro/Psych: Bilateral basal ganglia infarcts, small punctate white matter infarcts on MRI Acute toxic metabolic encephalopathy Patient remains encephalopathic. Has been off sedation > [address] Felix, following MRI of the brain done 05/16/16 shows small punctate white matter infarcts, bilateral basal ganglia infarcts Repeat MRI brain 05/27 similar Off Seroquel and Haldol due to nonsustained V. tach Head CT 05/08, 05/16: negative acute. EEG 05/12 revealed generalized slowing right greater than left. No epileptiform activity. EEG 05/16: No seizure, severe encephalopathy. CV: Hemorrhagic shock due to left retroperitoneal hemorrhage-shock resolved Severe bradycardia and hypotension 05/17/16 most likely secondary to recurrent bleed Aberrant RCA off LCC Nonsustained V. tach single episode Diastolic heart failure Coronary artery disease Nonischemic cardiomyopathy secondary to hypertensive heart disease Hypertensive emergency Monitor HR and BP keep MAP>65mmHg On Procardia 30mg Q8, Labetalol 200 every 8, Increase Hydralazine 50mg Q 8hrs Status post cardiac catheterization by Dr. Moy. No intervention performed. Known coronary artery artery disease to the first and second diagonals the LAD. Aberrant RCA off left coronary cups. Transfer to fo RCA unroofing once clinically stable Aspirin 81 mg on hold due to RP hemorrhage. (Plavix DC d 05/15/[address] Marcano in anticipation of probable unroofing surgery) Lipitor 20 mg by mouth daily held in light of elevated liver function tests 05/30 Short run 8-9 beats V-tach last evening with resolution, no intervention Pulm: Acute hypoxemic respiratory failure-extubated 05/13/16, re intubated 05/16/16 for airway protection Likely underlying STU Right upper lobe mucus plugging On PRVC/AC RR 20, TV 630, IT 1.2, PEEP:5, FIO2 45% S/P percutaneous tracheostomy. 8.0 Shiley 06/01 Continue with vent support keep sat >92% Ventilator bundle, SBT daily as tolerated Bronchodilator therapy every 4 hours and as needed. Pulm toilet, trach care GI: S/P large left retroperitoneal hemorrhage 05/15 Hypoalbuminemia Elevated LFT's Resume TF (Nepro at goal rate 50 cc an hour) Continue Protonix for GI prophylaxis Colace/Senokot twice a day for bowel regimen /Renal: Acute kidney failure due to ATN Anuria Chaudhry for accurate I's and O's in a critically ill patient HD started 05/17/16 , Sunday. s/p HD yesterday with removal 5L. Renal- Dr. Mcintosh Endo: Diabetes mellitus type 2 Hyperglycemia SSI medium scale with accuchecks Q6 Heme: s/p Acute blood loss anemia with shock Large left retroperitoneal hemorrhage Right cephalic superficial thrombus left basilic thrombus/right PT THROMBUS Normocytic anemia Leukocytosis Monitor CBC, Heme is following. On Epogen with HD Hematology on board, initiated therapeutic anticoagulation 05/29 Transfused 3 units PRBC stat on 05/16/16 Transfused 3 units PRBC and 2 units FFP Transfuse 1 unit PRBCs 05/19. Therapeutic Lovenox discontinued, aspirin placed on hold 75 mg IV protamine slow infusion (D/W with Dr. mcintosh) on 05/16/16. If patient continues to bleed consult IR for possible embolization Was on Lovenox 150 mg subcutaneous twice a day-DCd 05/16/16 ID: Aspiration pneumonia/Enterobacter aerogenes in sputum Leukocytosis --Off abx per ID Dr. Mariee Monitor for signs of infection( Fever, WBC) follow up on cxs from 06/02 Pertinent cultures 05/07 - blood cultures 2 - negative 05/08 - sputum - negative 05/08 - urine - negative 05/08 - blood cultures - negative 05/13 - blood cx negative 05/13 - urine cx negative 05/16 - sputum Enterobacter aerogenes 05/16 - urine neg 131 - blood cultures neg 05/18 - blood cultures- negative 05/19 - bronchoscopy - Yeast 05/27 Sputum Enterobacter MSK: History of spinal stenosis/laminectomy/left total knee replacement and left ring finger amputation PT evaluate and treat Access - Left IJ CVL 05/17. Left subclavian vascath placed 06/02 -d/c central line and place peripheral IV;'s Prophylaxis - GI - Protonix - DVT -Heparin 5000 SQ BID, SCD on L leg - Doppler US UE: Occlusive thrombus in the right distal cephalic vein. Nonocclusive thrombus in the left mid and distal basilic veins. CCT 30 mins Adryan Augustine MD Jun 03, 2016 08:03
[2016-06-03] MEDS: HEPARIN SODIUM - SQ 10,000 UNITS/ML VIAL SQ SCH ×2 (08:07→19:51)
--- NOTE | 2016-06-03 11:38 | HHI.NPPN ---
Subjective History of Present Illness 61 year old with ARF, CHF, Respiratory failure Additional Remarks Patient remain s/p Trach and off sedation, remain unresponsive Objective Data Data 06/02/16 06/03/16 19:00 07:00 Intake Total 34 ml 0 ml Output Total 5100 ml 150 ml Balance -5066 ml -150 ml Intake Oral 0 ml IV Total 34 ml 0 ml Tube Feeding 0 ml Output Urine Total 100 ml 150 ml Hemodialysis 5000 ml # Bowel Movements 2 3 Vital Signs Date Time Temp Pulse Resp B/P Pulse Ox O2 Delivery O2 Flow Rate FiO2 06/03/16 10:00 113 06/03/16 08:00 45 06/03/16 08:00 99.6 82 18 134/78 99 06/03/16 08:00 82 06/03/16 07:36 45 06/03/16 07:36 100 45 06/03/16 06:00 113 06/03/16 04:14 100 45 06/03/16 04:00 99.1 116 18 155/89 100 06/03/16 04:00 116 06/03/16 04:00 45 06/03/16 02:00 117 06/03/16 01:12 100 45 06/03/16 00:00 98.8 114 22 101/60 98 06/03/16 00:00 114 06/03/16 00:00 45 06/02/16 22:00 118 06/02/16 20:36 99 45 06/02/16 20:00 128 06/02/16 20:00 60 06/02/16 20:00 99.5 128 25 145/88 98 06/02/16 18:00 126 06/02/16 16:00 45 06/02/16 16:00 99.3 125 22 146/87 96 06/02/16 16:00 99.3 125 22 146/87 96 06/02/16 16:00 125 06/02/16 16:00 125 06/02/16 16:00 60 06/02/16 15:36 95 45 06/02/16 14:31 98 45 06/02/16 12:35 100 06/02/16 12:00 125 06/02/16 12:00 60 06/02/16 12:00 98.5 125 22 134/91 100 -: 06/03/16 0515 06/03/16 0515 Microbiology 06/02/16 Wound Culture, Received Pending Physical Exam General Appearance: Obese Neck Neck Exam: Neck Supple Pulmonary Resp Exam: Rhonchi, Decreased Bases, Diminished Breath Sounds, Poor Inspiratory Effort Cardiology CV Exam: Tachycardia Gastrointestinal/Abdomen GI Exam: Soft, Non-Tender, Distended Extremeties Extremities Exam: Moderate Edema, Pitting Edema, Dependent Edema Neurologic Neuro Exam: Unresponsive Assessment/Plan Problem List: (1) Acute renal failure Plan: Patient has oliguric acute renal failure and remains essentially oliguric. Continue MWF BUN and Creatinine remain elevated. 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 Plan: Cardiology following (4) Acute hypoxemic respiratory failure Plan: On ventilator (5) Hypertensive emergency Plan: BP improved (6) Diabetes mellitus Plan: Continue monitor blood glucose (7) CAD (coronary artery disease) Plan: Presented with STEMI, follow with cardiology (8) Subsequent ST elevation (STEMI) myocardial infarction of anterior wall Plan: Planned transfer to when stable. No intervention performed here. Problem Qualifiers (1) Acute renal failure: Qualified Code: N17.0 - Acute renal failure with tubular necrosis (2) Diabetes mellitus: Qualified Code: E13.8 - Diabetes mellitus of other type with complication, unspecified jail insulin use status (3) CAD (coronary artery disease): Qualified Code: I25.10 - Coronary artery disease, angina presence unspecified, unspecified vessel or lesion type, unspecified whether [place] or transplanted heart Linda Mcintosh MD Jun 03, 2016 11:38
[2016-06-03] MEDS: SODIUM CHLOR 0.9% 1000 ML INJ 1,000 ML IV PRN (12:57)
[2016-06-03] MEDS: HEPARIN SODIUM - IV 10,000 UNITS/10 ML VIAL PRN (12:58)
[2016-06-03] MEDS: GENTAMICIN SULFATE (DIALYSIS USE ONLY) 20 MG/2 ML VIAL IV PRN (12:58)
[2016-06-04] VITALS (18 sets, daily range): BP systolic 112–145; BP diastolic 65–93; PULSE 82–120; RESP 20–24; TEMP 98.3–99.8; O2SAT 92–100
[2016-06-04] MEDS: CHLORHEXIDINE GLUCONATE 2 % 1 PACK (2 CLOTHS) TOP SCH (01:54)
[2016-06-04] MEDS: INSULIN NovoLIN REGULAR SUPPLEMENTAL SCALE SQ SCH ×4 (01:54→19:56)
[2016-06-04] MEDS: RESP: ALBUTEROL 2.5 MG/IPRATROPIUM 0.5 MG NEB (SCH) NEB ×4 (03:21→20:37)
[2016-06-04] MEDS: NIFEdipine 10 MG CAP PO SCH ×3 (04:43→22:01)
[2016-06-04] MEDS: hydrALAZINE HCL 25 MG TAB PO SCH ×3 (04:43→22:01)
[2016-06-04] MEDS: LABETALOL HCL 200 MG TAB PO SCH ×3 (04:43→22:01)
[2016-06-04] MEDS: METOCLOPRAMIDE HCL 10 MG/2 ML VIAL IV PUSH SCH ×3 (04:43→22:01)
[2016-06-04 07:42] LABS: AUTOMATED NEUTROPHIL # 13.8 TH/MM3 (1.8-7.7); BASOPHIL # 0.1 TH/MM3 (0-0.2); BASOPHIL % 0.8 % (0.0-2.0); EOSINOPHIL # 0.2 TH/MM3 (0-0.4); EOSINOPHIL % 1.2 % (0.0-4.0); HEMATOCRIT 30.7 % (39.0-51.0); HEMO FLAGS DIFF FINAL; LYMPH % 5.4 % (9.0-44.0); LYMPHOCYTE # 0.9 TH/MM3 (1.0-4.8); MEAN CELL VOLUME 89.5 FL (80.0-100.0); MEAN CORPUSCULAR HEMOGLOBIN 28.2 PG (27.0-34.0); MEAN CORPUSCULAR HGB CONC 31.5 % (32.0-36.0); MONO % 7.9 % (0.0-8.0); NEUT % 84.7 % (16.0-70.0); PLATELET COUNT 270 TH/MM3 (150-450); RED BLOOD COUNT 3.43 MIL/MM3 (4.50-5.90); RED CELL DISTRIBUTION WIDTH 16.4 % (11.6-17.2); WHITE BLOOD COUNT 16.2 TH/MM3 (4.0-11.0)
[2016-06-04] MEDS: CHLORHEXIDINE 0.12% (ORAL KIT) 15 ML CUP MT SCH ×2 (08:00→19:56)
[2016-06-04 08:21] LABS: BICARBONATE 25.3 MEQ/L (21.0-32.0); POTASSIUM 4.3 MEQ/L (3.5-5.1)
[2016-06-04] MEDS: HEPARIN SODIUM - SQ 10,000 UNITS/ML VIAL SQ SCH ×2 (08:33→19:58)
[2016-06-04] MEDS: DOCUSATE SODIUM 100 MG CAP PO SCH ×2 (08:34→19:57)
[2016-06-04] MEDS: SODIUM CHLORIDE 0.9% FLUSH 5 ML FLUSH IV FLUSH SCH ×2 (09:00→19:57)
[2016-06-04] MEDS: ARTIFICIAL TEARS OPTH SOLN 15 ML BTL EACH EYE SCH ×3 (11:13→16:57)
--- NOTE | 2016-06-04 11:15 | HHI.GIFU ---
Subjective Remarks Sedated on the ventilator. Tolerating TF. No distress (Sol Ortiz) Objective Vitals I&O Vital Signs Date Time Temp Pulse Resp B/P Pulse Ox O2 Delivery O2 Flow Rate FiO2 06/04/16 11:04 40 06/04/16 10:00 85 06/04/16 08:00 45 06/04/16 08:00 98.3 101 20 133/67 98 06/04/16 08:00 85 06/04/16 07:29 99 45 06/04/16 07:29 45 06/04/16 06:00 85 06/04/16 04:10 100 45 06/04/16 04:00 99.0 120 22 145/86 98 06/04/16 04:00 120 06/04/16 04:00 45 06/04/16 02:00 82 06/04/16 01:16 98 45 06/04/16 00:00 118 06/04/16 00:00 98.6 118 22 112/65 96 06/04/16 00:00 45 06/03/16 22:00 123 06/03/16 20:30 100 45 06/03/16 20:00 99.1 125 22 153/90 99 06/03/16 20:00 125 06/03/16 20:00 45 06/03/16 18:00 87 06/03/16 16:38 99 45 06/03/16 16:00 45 06/03/16 16:00 97.8 84 20 150/79 100 06/03/16 16:00 84 06/03/16 14:00 91 06/03/16 12:05 100 45 06/03/16 12:00 99.9 116 18 138/85 100 06/03/16 12:00 116 06/03/16 12:00 45 I/O 06/03/16 06/03/16 06/03/16 06/04/16 06/04/16 06/04/16 07:00 15:00 23:00 07:00 15:00 23:00 Intake Total 0 ml 57 ml 203 ml 237 ml Output Total 75 ml 3150 ml 50 ml 75 ml Balance -75 ml -3093 ml 153 ml 162 ml Intake Oral 0 ml 0 ml 0 ml IV Total 0 ml 0 ml 0 ml Tube Feeding 0 ml 57 ml 203 ml 237 ml Output Urine Total 75 ml 150 ml 50 ml 75 ml Hemodialysis 3000 ml # Bowel Movements 2 0 1 Laboratory Laboratory Tests Test 06/04/16 07:25 White Blood Count 16.2 Red Blood Count 3.43 Hemoglobin 9.7 Hematocrit 30.7 Mean Corpuscular Volume 89.5 Mean Corpuscular Hemoglobin 28.2 Mean Corpuscular Hemoglobin 31.5 Concent Red Cell Distribution Width 16.4 Platelet Count 270 Mean Platelet Volume 8.2 Neutrophils (%) (Auto) 84.7 Lymphocytes (%) (Auto) 5.4 Monocytes (%) (Auto) 7.9 Eosinophils (%) (Auto) 1.2 Basophils (%) (Auto) 0.8 Neutrophils # (Auto) 13.8 Lymphocytes # (Auto) 0.9 Monocytes # (Auto) 1.3 Eosinophils # (Auto) 0.2 Basophils # (Auto) 0.1 CBC Comment DIFF FINAL Differential Comment Sodium Level 142 Potassium Level 4.3 Chloride Level 102 Carbon Dioxide Level 25.3 Anion Gap 15 Blood Urea Nitrogen 118 Creatinine 6.78 Estimat Glomerular Filtration 10 Rate Random Glucose 214 Calcium Level 7.7 Date/Time Procedure Status Source Growth 06/02/16 23:20 Wound Culture Received Catheter Tip Vas Cath Pending 06/02/16 09:30 Urine Culture - Preliminary Resulted Urine Catheterized Urine Yeast Species 06/02/16 09:30 Gram Stain - Final Resulted Sputum Endotracheal 06/02/16 09:30 Sputum Culture - Preliminary Resulted Gram Negative Oswaldo 06/02/16 09:25 Aerobic Blood Culture - Preliminary Resulted Blood Peripheral NO GROWTH IN 1 DAY 06/02/16 09:25 Anaerobic Blood Culture - Preliminary Resulted Blood Peripheral NO GROWTH IN 1 DAY 05/31/16 17:46 Urine Culture - Final Complete Urine Catheterized Urine Bridget Glabrata Imaging Last Impressions Gastrostomy Tube Placement 06/02/16 0000 Signed Impressions: Service Date/Time: Thursday, June 02, 2016 12:31 - CONCLUSION: Uncomplicated gastrostomy tube placement as above. Isidro Flor MD Catheter Placement X-Ray 06/02/16 0000 Signed Impressions: Service Date/Time: Thursday, June 02, 2016 12:31 - CONCLUSION: 1. Uncomplicated line placement as above. 2. Patient currently has a modified left subclavian PermCath catheter that is being utilized as a temporary access. Isidro Flor MD Chest X-Ray 06/01/16 0000 Signed Impressions: Service Date/Time: May 14:20 - CONCLUSION: 1. Tracheostomy in good position. No pneumothorax. Mahin Peters MD Brain MRI 05/27/16 0000 Signed Impressions: Service Date/Time: Friday, May 27, 2016 12:17 - CONCLUSION: Multifocal bilateral T2 signal abnormalities in restricted diffusion concerning for bilateral lacunar infarcts. Carlitos Aguirre MD Lower Extremity Ultrasound 05/26/16 0000 Signed Impressions: Service Date/Time: Thursday, May 26, 2016 13:51 - CONCLUSION: New thrombosed right posterior tibial vein. Jonathon Peters MD FACR Upper Extremity Ultrasound 05/25/16 0000 Signed Impressions: Service Date/Time: May 08:56 - CONCLUSION: 1. Occlusive thrombus in the right distal cephalic vein. 2. Nonocclusive thrombus in the left mid and distal basilic veins. Sammy Duran MD Head CT 05/16/16 0000 Signed Impressions: Service Date/Time: Monday, May 16, 2016 08:30 - CONCLUSION: Suspected bilateral basal ganglia calcifications are unchanged. No evidence of hemorrhage, edema, mass or mass effect. Stephen Quintanilla MD Abdomen/Pelvis CT 05/16/16 0000 Signed Impressions: Service Date/Time: Monday, May 16, 2016 08:39 - CONCLUSION: There are large areas of hemorrhage including the left retroperitoneum and psoas muscle, within the mesentery and a smaller area in the right psoas muscle. They don't appear to be related to the abdominal aorta or the internal iliac arteries. There is a small focal collection hemorrhage adjacent to the left external iliac artery as it enters the pelvis, but I don't believe that is related to the large amount of hemorrhage seen elsewhere. The areas of hemorrhage are large and multi-focal. Stephen Quintanilla MD CT Angiography 05/06/16 0000 Signed Impressions: Service Date/Time: Saturday, May 07, 2016 00:04 - CONCLUSION: 1. Lobar consolidation bilaterally in the lower lobes. 2. Negative for pulmonary embolism. Michael Colbert MD Physical Exam HEENT: Normocephalic; atraumatic; no jaundice CHEST: Rhonchi throughout. Trach to vent. CARDIAC: ST ABDOMEN: Soft, obese, nondistended, nontender; no hepatosplenomegaly; bowel sounds are present in all four quadrants. G tube site without redness, swelling EXTREMITIES: Generalized edema. SKIN: Normal; no rash; no jaundice. DROSS PULLER: Sedated on vent. (Sol Ortiz) Assessment and Plan Plan ASSESSMENT: - Dysphagia, FEN. Pt in ICU being treated for multiple medical problems, bilateral basal ganglia infarcts with small punctate white matter infarcts on MRI, acute toxic metabolic encephalopathy, hemorrhagic shock secondary to left retroperitoneal bleed, coronary artery disease, nonischemic cardiomyopathy, hypertension 10, acute respiratory failure, acute kidney failure, anemia, occlusive thrombus in right distal cephalic vein, nonocclusive thrombus in left mid and distal basophilic veins, aspiration pneumonia, leukocytosis, PEA arrest. S/P tracheostomy placement earlier today. GI has been consulted for PEG tube placement. IR was consulted for placement secondary to body habitus and this was done on Sunday. Site without redness, swelling, drainage and he is tolerating TF. Freight Forwarder recommends Nepro at 50 cc an hour. PLAN: - S/P Gastrostomy placement by IR - Nepro at 50cc/hr - GI will sign off, please reconsult as needed - Pt seen and examined by Dr. Wayne and myself and this note is written (Sol Ortiz) Physician Comments agree with above (Loreta Wayne MD) Sol Ortiz Jun 04, 2016 11:15 Loreta Wayne MD Jun 04, 2016 13:13
--- NOTE | 2016-06-04 13:41 | HHI.CCPN ---
Subjective Remarks/Hospital Course 61-year-old AA male. Date of admission 05/05/2016. Date of consultation 2016. Past medical history includes hypertensive heart disease, hypertension, diabetes mellitus type 2 and spinal stenosis. He presented to [place] [facility] today with history of acute onset of diaphoresis, chest pain and syncope. Her documentation, Chest pain was 7 out of 10 without radiation. Later in the hospital physician, patient did have ST elevation anterior septal leads. I he had a cardiac catheterization in 2009 which revealed moderate coronary disease which documented 50-60% stenosis in the LAD diagonals 1 and 2. Recommended medical management at that time. Dr. Marcano was notified and proceed to the cardiac catheter lab. Patient sees heparin and one aspirin prior to cardiac catheterization. During heart catheterization,, patient became hypertensive, tachypneic, hypoxic and agitated including abdominal pain with nausea and vomiting. Patient was intubated by Dr. Simon and dispensed transferred to room 505a. Currently hemodynamic stable on a propofol drip. 05/06: Patient required additional sedation overnight. Was moving all 4 extremity spontaneously and strongly. Potassium is replaced overnight along with magnesium. This afternoon approximate 4 PM, patient went into a sinus bradycardia in the 40s. RN cannot locate pulse and possibly went into a PEA arrest. Patient received CPR for approximately 2 minutes. ROSC return immediately. Received 1 mg of epinephrine IV. Blood pressure was 240 systolic. Saturations were above 90% the entire time. Dr. Marcano was made aware. No new recommendations at this time. Electrolytes currently pending. Patient is currently hemodynamic stable and an arterial line/left radial has been placed 05/07: no improvement in delirium or mental status. spiking low grade fevers. 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 CT surgery consulted and declined to operate here: he will need referral once stabilized. fio2 requirements still high. CT chest also with evidence of bibasilar consolidation which may be aspiration pneumonitis vs. pneumonia now that we are 48h out from initial presentation and now spiking fevers. 05/08: delirium persists. continues to spike fevers. jolly cultured yesterday without results yet. holding sedation today. 05/09: delirium slightly improved. waking up on SAT, weakly following commands. cultures still NGTD. hypoxia slightly improved. 05/10: delirium improving. weakly following commands still. cultures still NGTD. fevers persist, although fever curve appears to be improving. hypoxia continues to improve. still remains very critically ill. 05/11: Tmax 99.9. Currently 99.1. Tolerating tube feeding. One bowel movement. Continues to have difficulty weaning ventilator. 05/12: Currently afebrile. Tolerating tube feeding. Positive BM. Increased FiO2 from 45-60%. +1 L. Arousable on sedation vacation and weakly follows commands. 05/13: Remains intubated, sedated. FiO2 now reduced to 45% (was 55% today am). Start weaning trials after starting Precedex. To control BP May use Cardene, given anomalous RCA 05/14: Extubated yesterday, remained on BiPAP overnight. Intermittently agitated. Following commands to me today, while on BiPAP. Remains on Cardene infusion for uncontrolled hypertension. Urine output 4.7 L in 24 hours 05/15: On 3 L nasal cannula. Fever trending down, breathing more comfortably. Able to communicate. Discussed with Dr. Marcano. Dr. Pendleton will be available tomorrow, will probably need transfer to [facility] for RCA unroofing 05/16: Acutely hypotensive overnight with tachycardia. MAP was 55 with greater than 130s. Received 3.5 L of normal saline bolus with improvement in blood pressure and heart rate. Lethargic on BiPAP. ABG pending, HB dropped from 10.9 to 7.8. No obvious source of bleeding. STAT 2U PRBC. STAT CT head and CT abd pelvis. R/O ICH or RP bleed. Patient received only 5mg Nicci at 2100 yesterday, no other sedation. Last dose of Lovenox was at 211, held now 05/17: Developed Hemorrhagic shock from large retroperitoneal hemorrhage night to 05/15/16. Stabilized after 3 units of PRBC and protamine. Hemoglobin 8.7 today. Remain encephalopathy and unresponsive yesterday. MRI 05/16/16 shows small punctate white matter infarcts, bilateral basal ganglia infarcts. Urology consult pending. Antiplatelet drugs on hold. Now with anuria from ATN secondary to shock. Nephrology consult pending 05/18: Developed sudden onset bradycardia in 40s, with acute hypotension yesterday evening around 5 PM. ACLS protocol initiated (did not arrest or lose pulse). Received multiple epinephrine, bicarbonate calcium and fluid boluses. Patient was placed on dopamine 20 mics per KG per minute, Levophed 20 mics per KG per minute, epinephrine 2.5 mics per minute and eventually stabilized with systolic blood pressure reading 120s. Hemoglobin on ABG was 7 and emergently transfused 3 units PRBC and 2 units FFP. Lab hemoglobin came back at 6.8. Patient also was profoundly acidemic with pH of 7.16. Patient received total 3 A of bicarbonate and bicarbonate infusion was started, minute ventilation was also increased. 2: MAXIMUM TEMPERATURE 100.3. Currently 99.5. No bowel movement. Tube feeds were restarted. FiO2 50%. PEEP at 8. 05/20: MAXIMUM TEMPERATURE 100.9. Positive BM. Tube feeds were restarted today. PT plateau. FiO2 down to 85%. Semiemergent bronchoscopy yesterday for right upper lobe airway obstruction. Resolved 05/21: MAXIMUM TEMPERATURE 100.7. Currently 99.6. Somewhat tachycardic. 2 bowel movements overnight. Tolerating tube feeds at 30 cc an hour. Had episode of emesis overnight. 05/22: Remains sedated, orally intubated on mechanical ventilation. 05/23: Remains sedated, orally intubated on mechanical ventilation. Dialyzed yesterday. 05/24: Remains sedated/encephalopathic, orally intubated on mechanical ventilation. Tolerating tube feeds. Awaiting dialysis 05/25: Remains encephalopathic, orally intubated on mechanical ventilation. Off sedation for 2 days now. PEEP decreased to to +7 10 No acute events overnight. For HD today. Afebrile. On PRVC/AC 20, TV 550, PEEP: 6, IT: 1.2 and FIO2 35%. On no sedation. Tolerating tube feeds. Subjective 05/27: Tmax 99.8. Currently 99.1. FiO2 down to 35%. Tolerating tube feeding. Positive BM. MRI brain reveals bilateral lacunar infarcts. Will likely need trach 05/28: Afebrile. The patient continues on CPAP trials 28/09 FiO2 of 35%, maintaining O2 sat at 97%. 05/29: The patient continues on CPAP trials. The patient underwent hemodialysis today. The patient is noted to be a medium dose sliding scale insulin with persistent hyperglycemia will increase to high-dose insulin sliding scale. Per hematology the patient was placed on heparin infusion initially, then discontinued.. 05/30 Tmax 100.1. S/P initiation of therapeutic anticoagulation ,serial hemoglobin stable, continue to monitor every 12 hours. Patient continues to fail CPAP trials, plan for tracheostomy, Discussed with patient spouse, she desires a trach and PEG, at this time. 05/31 Tmax 100.1. Maintaining CPAP trials occasionally 3-4 hours. Discussed with family risk and benefits of tracheostomy. Discussed with family MRI results, EEG results. Family requests continue aggressive support. Plan for percutaneous tracheostomy . GI consulted for PEG placement. 06/01 Percutaneous tracheostomy performed today. Plan for patient to go to IR for new Vas-Cath placement per nephrology. 06/02 Patient s/p trach yesterday. For PEG tube placement and HD today today. On no sedation. T: 100.2 06/03 Patient s/p PEG tube placement and HD yesterday with removal 5L. Afebrile. Remains off sedation. 06/04 no acute events overnight. Tolerating C Pap. Will place on T piece 2-4 hours. No change in neuro exam Objective Vital Signs Date Time Temp Pulse Resp B/P Pulse Ox O2 Delivery O2 Flow Rate FiO2 06/04/16 12:00 98.8 116 24 135/82 96 06/04/16 11:08 40 Intake and Output 06/03/16 06/03/16 06/04/16 08:00 16:00 00:00 Intake Total 0 ml 57 ml 203 ml Output Total 75 ml 3150 ml 50 ml Balance -75 ml -3093 ml 153 ml Result Diagram: 06/04/16 0725 06/04/16 0725 Other Results Microbiology Date/Time Procedure Status Source Growth 06/02/16 09:30 Gram Stain - Final Complete Sputum Endotracheal 06/02/16 09:30 Sputum Culture - Final Complete Enterobacter Aerogenes Imaging Last Impressions Gastrostomy Tube Placement 06/02/16 0000 Signed Impressions: Service Date/Time: Thursday, June 02, 2016 12:31 - CONCLUSION: Uncomplicated gastrostomy tube placement as above. Isidro Flor MD Catheter Placement X-Ray 06/02/16 0000 Signed Impressions: Service Date/Time: Thursday, June 02, 2016 12:31 - CONCLUSION: 1. Uncomplicated line placement as above. 2. Patient currently has a modified left subclavian PermCath catheter that is being utilized as a temporary access. Isidro Flor MD Chest X-Ray 06/01/16 0000 Signed Impressions: Service Date/Time: May 14:20 - CONCLUSION: 1. Tracheostomy in good position. No pneumothorax. Mahin Peters MD Brain MRI 05/27/16 0000 Signed Impressions: Service Date/Time: Friday, May 27, 2016 12:17 - CONCLUSION: Multifocal bilateral T2 signal abnormalities in restricted diffusion concerning for bilateral lacunar infarcts. Carlitos Aguirre MD Lower Extremity Ultrasound 05/26/16 0000 Signed Impressions: Service Date/Time: Thursday, May 26, 2016 13:51 - CONCLUSION: New thrombosed right posterior tibial vein. Jonathon Peters MD FACR Upper Extremity Ultrasound 05/25/16 0000 Signed Impressions: Service Date/Time: May 08:56 - CONCLUSION: 1. Occlusive thrombus in the right distal cephalic vein. 2. Nonocclusive thrombus in the left mid and distal basilic veins. Sammy Duran MD Head CT 05/16/16 0000 Signed Impressions: Service Date/Time: Monday, May 16, 2016 08:30 - CONCLUSION: Suspected bilateral basal ganglia calcifications are unchanged. No evidence of hemorrhage, edema, mass or mass effect. Stephen Quintanilla MD Abdomen/Pelvis CT 05/16/16 0000 Signed Impressions: Service Date/Time: Monday, May 16, 2016 08:39 - CONCLUSION: There are large areas of hemorrhage including the left retroperitoneum and psoas muscle, within the mesentery and a smaller area in the right psoas muscle. They don't appear to be related to the abdominal aorta or the internal iliac arteries. There is a small focal collection hemorrhage adjacent to the left external iliac artery as it enters the pelvis, but I don't believe that is related to the large amount of hemorrhage seen elsewhere. The areas of hemorrhage are large and multi-focal. Stephen Quintanilla MD CT Angiography 05/06/16 0000 Signed Impressions: Service Date/Time: Saturday, May 07, 2016 00:04 - CONCLUSION: 1. Lobar consolidation bilaterally in the lower lobes. 2. Negative for pulmonary embolism. Michael Colbert MD Objective Remarks GENERAL: 61-year-old AA male, morbidly obese on ventilator via trach, comatose SKIN: Warm and dry. No rash HEAD: Atraumatic. Normocephalic. EYES: Pupils equal and round around 2-3 mm bilaterally and slightly reactive. No scleral icterus. No injection or drainage. ENT: No nasal bleeding or discharge. NECK: JVD difficult to assess due to body habitus. s/p Trach, no bleeding from site CARDIOVASCULAR: Tachycardic nl S1, S2. Without murmur RESPIRATORY: Diminished breath sounds bilaterally due to body habitus. Breath sounds equal bilaterally. GASTROINTESTINAL: Abdomen obese, non-tender, protuberant, distended. no guarding. Peg tube in place MUSCULOSKELETAL: Extremities with 1+ edema NEUROLOGICAL: Patient remains comatose, off sedation since morning of 05/23. Pupils are sluggishly reactive. Bilateral lower extremity mildly withdrawal to pain. +ve Corneal reflex, gag reflex A/P Assessment and Plan Neuro/Psych: Bilateral basal ganglia infarcts, small punctate white matter infarcts on MRI Toxic metabolic encephalopathy Patient remains comatose. Has been off sedation > [address] Felix, following MRI of the brain done 05/16/16 shows small punctate white matter infarcts, bilateral basal ganglia infarcts Repeat MRI brain 05/27 similar Off Seroquel and Haldol due to nonsustained V. tach Head CT 05/08, 05/16: negative acute. EEG 05/12 revealed generalized slowing right greater than left. No epileptiform activity. EEG 05/16: No seizure, severe encephalopathy. CV: Hemorrhagic shock due to left retroperitoneal hemorrhage-shock resolved Severe bradycardia and hypotension 05/17/16 most likely secondary to recurrent bleed Aberrant RCA off LCC Nonsustained V. tach single episode Diastolic heart failure Coronary artery disease Nonischemic cardiomyopathy secondary to hypertensive heart disease Hypertensive emergency On Procardia 30mg Q8, Labetalol 200 every 8, Hydralazine 50mg Q 8hrs Status post cardiac catheterization by Dr. Moy. No intervention performed. Known coronary artery artery disease to the first and second diagonals the LAD. Aberrant RCA off left coronary cups. Transfer to fo RCA for unroofing -on hold due no improvement in neuro status Aspirin 81 mg on hold due to RP hemorrhage. (Plavix DC d 05/15/[address] Marcano at that time in anticipation of probable unroofing surgery) Lipitor 20 mg by mouth daily held in light of elevated liver function tests 05/30 Short run 8-9 beats V-tach last evening with resolution, no intervention Pulm: Acute hypoxemic respiratory failure-extubated 05/13/16, re intubated 05/16/16 for airway protection Likely underlying STU Right upper lobe mucus plugging Tolerating CPAP, TP 2-4 hours starting today 06/04/16 S/P percutaneous tracheostomy. 8.0 Shiley 06/01 Ventilator bundle, SBT daily as tolerated Bronchodilator therapy every 4 hours and as needed. Pulm toilet, trach care GI: S/P large left retroperitoneal hemorrhage 05/15 Hypoalbuminemia Elevated LFT's Resume TF when approved by GI. s/p PEG(Nepro at goal rate 50 cc an hour) Continue Protonix for GI prophylaxis Colace/Senokot twice a day for bowel regimen /Renal: Acute kidney failure due to ATN Anuria Chaudrhy for accurate I's and O's in a critically ill patient HD started 05/17/16 , Sunday. Renal- Dr. Mcintosh Endo: Diabetes mellitus type 2 Hyperglycemia SSI medium scale with accuchecks Q6 Heme: s/p Acute blood loss anemia with shock Large left retroperitoneal hemorrhage Right cephalic superficial thrombus left basilic thrombus/right PT THROMBUS Normocytic anemia Leukocytosis Monitor CBC, Heme is following. On Epogen with HD Hematology on board, initiated therapeutic anticoagulation 05/29 Transfused 3 units PRBC stat on 05/16/16 Transfused 3 units PRBC and 2 units FFP Transfuse 1 unit PRBCs 05/19. Therapeutic Lovenox discontinued, aspirin placed on hold 75 mg IV protamine slow infusion (D/W with Dr. mcintosh) on 05/16/16. Was on Lovenox 150 mg subcutaneous twice a day-DCd 05/16/16 ID: Aspiration pneumonia/Enterobacter aerogenes in sputum Leukocytosis --Off abx per ID Dr. Mariee Monitor for signs of infection( Fever, WBC) follow up on cxs from 06/02 Pertinent cultures 05/07 - blood cultures 2 - negative 05/08 - sputum - negative 05/08 - urine - negative 05/08 - blood cultures - negative 05/13 - blood cx negative 05/13 - urine cx negative 05/16 - sputum Enterobacter aerogenes 05/16 - urine neg 131 - blood cultures neg 05/18 - blood cultures- negative 05/19 - bronchoscopy - Yeast 05/27 Sputum Enterobacter MSK: History of spinal stenosis/laminectomy/left total knee replacement and left ring finger amputation PT evaluate and treat Access - Left IJ CVL 05/17. Left subclavian vascath placed 06/02 -d/c central line and place peripheral IV;'s Prophylaxis - GI - Protonix - DVT -Heparin 5000 SQ BID, SCD on L leg - Doppler US UE: Occlusive thrombus in the right distal cephalic vein. Nonocclusive thrombus in the left mid and distal basilic veins. CCT 30 mins Tahmina Kelsey MD Jun 04, 2016 13:41
--- NOTE | 2016-06-04 13:53 | HHI.NPPN ---
Subjective History of Present Illness 61 year old with ARF, CHF, Respiratory failure Additional Remarks Patient s/p Trach and off sedation, remain unresponsive Objective Data Data 06/03/16 06/04/16 19:00 07:00 Intake Total 57 ml 440 ml Output Total 3150 ml 125 ml Balance -3093 ml 315 ml Intake Oral 0 ml IV Total 0 ml Tube Feeding 57 ml 440 ml Output Urine Total 150 ml 125 ml Hemodialysis 3000 ml # Bowel Movements 1 Vital Signs Date Time Temp Pulse Resp B/P Pulse Ox O2 Delivery O2 Flow Rate FiO2 06/04/16 12:00 98.8 116 24 135/82 96 06/04/16 12:00 85 06/04/16 11:08 40 06/04/16 11:04 40 06/04/16 10:00 85 06/04/16 08:00 45 06/04/16 08:00 98.3 101 20 133/67 98 06/04/16 08:00 85 06/04/16 07:29 99 45 06/04/16 07:29 45 06/04/16 06:00 85 06/04/16 04:10 100 45 06/04/16 04:00 99.0 120 22 145/86 98 06/04/16 04:00 120 06/04/16 04:00 45 06/04/16 02:00 82 06/04/16 01:16 98 45 06/04/16 00:00 118 06/04/16 00:00 98.6 118 22 112/65 96 06/04/16 00:00 45 06/03/16 22:00 123 06/03/16 20:30 100 45 06/03/16 20:00 99.1 125 22 153/90 99 06/03/16 20:00 125 06/03/16 20:00 45 06/03/16 18:00 87 06/03/16 16:38 99 45 06/03/16 16:00 45 06/03/16 16:00 97.8 84 20 150/79 100 06/03/16 16:00 84 06/03/16 14:00 91 -: 06/04/16 0725 06/04/16 0725 Physical Exam General Appearance: Obese Neck Neck Exam: Neck Supple Pulmonary Resp Exam: Rhonchi, Decreased Bases, Diminished Breath Sounds, Poor Inspiratory Effort Cardiology CV Exam: Tachycardia Gastrointestinal/Abdomen GI Exam: Soft, Non-Tender, Distended Extremeties Extremities Exam: Moderate Edema, Pitting Edema, Dependent Edema Neurologic Neuro Exam: Unresponsive Assessment/Plan Problem List: (1) Acute renal failure Plan: Patient has oliguric acute renal failure and remains essentially oliguric. 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 Plan: Cardiology following (4) Acute hypoxemic respiratory failure Plan: On ventilator (5) Hypertensive emergency Plan: BP improved (6) Diabetes mellitus Plan: Continue monitor blood glucose (7) CAD (coronary artery disease) Plan: Presented with STEMI, follow with cardiology (8) Subsequent ST elevation (STEMI) myocardial infarction of anterior wall Plan: Planned transfer to when stable. No intervention performed here. Problem Qualifiers (1) Acute renal failure: Qualified Code: N17.0 - Acute renal failure with tubular necrosis (2) Diabetes mellitus: Qualified Code: E13.8 - Diabetes mellitus of other type with complication, unspecified [facility] insulin use status (3) CAD (coronary artery disease): Qualified Code: I25.10 - Coronary artery disease, angina presence unspecified, unspecified vessel or lesion type, unspecified whether [place] or transplanted heart Linda Mcintosh MD Jun 04, 2016 13:53
[2016-06-05] VITALS (20 sets, daily range): BP systolic 115–192; BP diastolic 71–86; PULSE 82–117; RESP 18–28; TEMP 98.1–101; O2SAT 92–100
[2016-06-05] MEDS: INSULIN NovoLIN REGULAR SUPPLEMENTAL SCALE SQ SCH ×4 (01:20→20:31)
[2016-06-05] MEDS: CHLORHEXIDINE GLUCONATE 2 % 1 PACK (2 CLOTHS) TOP SCH (04:00)
[2016-06-05] MEDS: RESP: ALBUTEROL 2.5 MG/IPRATROPIUM 0.5 MG NEB (SCH) NEB ×4 (04:06→20:05)
[2016-06-05] MEDS: LABETALOL HCL 200 MG TAB PO SCH ×3 (06:04→20:29)
[2016-06-05] MEDS: hydrALAZINE HCL 25 MG TAB PO SCH ×3 (06:04→20:29)
[2016-06-05] MEDS: NIFEdipine 10 MG CAP PO SCH ×3 (06:04→20:29)
[2016-06-05] MEDS: METOCLOPRAMIDE HCL 10 MG/2 ML VIAL IV PUSH SCH ×3 (06:04→20:30)
[2016-06-05] MEDS: SODIUM CHLORIDE 0.9% FLUSH 5 ML FLUSH IV FLUSH SCH ×2 (07:46→20:31)
[2016-06-05] MEDS: ARTIFICIAL TEARS OPTH SOLN 15 ML BTL EACH EYE SCH ×3 (07:46→18:00)
[2016-06-05] MEDS: DOCUSATE SODIUM 100 MG CAP PO SCH ×2 (07:46→20:31)
[2016-06-05] MEDS: HEPARIN SODIUM - SQ 10,000 UNITS/ML VIAL SQ SCH ×2 (07:46→20:28)
[2016-06-05] MEDS: CHLORHEXIDINE 0.12% (ORAL KIT) 15 ML CUP MT SCH ×2 (07:47→20:31)
[2016-06-05] MEDS: SODIUM CHLOR 0.9% 1000 ML INJ 1,000 ML IV PRN (08:12)
[2016-06-05] MEDS: HEPARIN SODIUM - IV 10,000 UNITS/10 ML VIAL PRN (08:12)
[2016-06-05] MEDS: EPOETIN ALFA 10,000 UNITS/ML VIAL IV PRN (08:13)
[2016-06-05] MEDS: GENTAMICIN SULFATE (DIALYSIS USE ONLY) 20 MG/2 ML VIAL IV PRN (08:13)
--- NOTE | 2016-06-05 08:22 | HHI.CCPN ---
Subjective Remarks/Hospital Course 61-year-old AA male. Date of admission 05/05/2016. Date of consultation 2016. Past medical history includes hypertensive heart disease, hypertension, diabetes mellitus type 2 and spinal stenosis. He presented to [facility] today with history of acute onset of diaphoresis, chest pain and syncope. Her documentation, Chest pain was 7 out of 10 without radiation. Later in the hospital physician, patient did have ST elevation anterior septal leads. I he had a cardiac catheterization in 2009 which revealed moderate coronary disease which documented 50-60% stenosis in the LAD diagonals 1 and 2. Recommended medical management at that time. Dr. Marcano was notified and proceed to the cardiac catheter lab. Patient sees heparin and one aspirin prior to cardiac catheterization. During heart catheterization,, patient became hypertensive, tachypneic, hypoxic and agitated including abdominal pain with nausea and vomiting. Patient was intubated by Dr. Simon and dispensed transferred to room 505a. Currently hemodynamic stable on a propofol drip. 05/06: Patient required additional sedation overnight. Was moving all 4 extremity spontaneously and strongly. Potassium is replaced overnight along with magnesium. This afternoon approximate 4 PM, patient went into a sinus bradycardia in the 40s. RN cannot locate pulse and possibly went into a PEA arrest. Patient received CPR for approximately 2 minutes. ROSC return immediately. Received 1 mg of epinephrine IV. Blood pressure was 240 systolic. Saturations were above 90% the entire time. Dr. Marcano was made aware. No new recommendations at this time. Electrolytes currently pending. Patient is currently hemodynamic stable and an arterial line/left radial has been placed 05/07: no improvement in delirium or mental status. spiking low grade fevers. 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 CT surgery consulted and declined to operate here: he will need referral once stabilized. fio2 requirements still high. CT chest also with evidence of bibasilar consolidation which may be aspiration pneumonitis vs. pneumonia now that we are 48h out from initial presentation and now spiking fevers. 05/08: delirium persists. continues to spike fevers. jolly cultured yesterday without results yet. holding sedation today. 05/09: delirium slightly improved. waking up on SAT, weakly following commands. cultures still NGTD. hypoxia slightly improved. 05/10: delirium improving. weakly following commands still. cultures still NGTD. fevers persist, although fever curve appears to be improving. hypoxia continues to improve. still remains very critically ill. 05/11: Tmax 99.9. Currently 99.1. Tolerating tube feeding. One bowel movement. Continues to have difficulty weaning ventilator. 05/12: Currently afebrile. Tolerating tube feeding. Positive BM. Increased FiO2 from 45-60%. +1 L. Arousable on sedation vacation and weakly follows commands. 05/13: Remains intubated, sedated. FiO2 now reduced to 45% (was 55% today am). Start weaning trials after starting Precedex. To control BP May use Cardene, given anomalous RCA 05/14: Extubated yesterday, remained on BiPAP overnight. Intermittently agitated. Following commands to me today, while on BiPAP. Remains on Cardene infusion for uncontrolled hypertension. Urine output 4.7 L in 24 hours 05/15: On 3 L nasal cannula. Fever trending down, breathing more comfortably. Able to communicate. Discussed with Dr. Marcano. Dr. Pendleton will be available tomorrow, will probably need transfer to [facility] for RCA unroofing 05/16: Acutely hypotensive overnight with tachycardia. MAP was 55 with greater than 130s. Received 3.5 L of normal saline bolus with improvement in blood pressure and heart rate. Lethargic on BiPAP. ABG pending, HB dropped from 10.9 to 7.8. No obvious source of bleeding. STAT 2U PRBC. STAT CT head and CT abd pelvis. R/O ICH or RP bleed. Patient received only 5mg Nicci at 2100 yesterday, no other sedation. Last dose of Lovenox was at 211, held now 05/17: Developed Hemorrhagic shock from large retroperitoneal hemorrhage night to 05/15/16. Stabilized after 3 units of PRBC and protamine. Hemoglobin 8.7 today. Remain encephalopathy and unresponsive yesterday. MRI 05/16/16 shows small punctate white matter infarcts, bilateral basal ganglia infarcts. Urology consult pending. Antiplatelet drugs on hold. Now with anuria from ATN secondary to shock. Nephrology consult pending 05/18: Developed sudden onset bradycardia in 40s, with acute hypotension yesterday evening around 5 PM. ACLS protocol initiated (did not arrest or lose pulse). Received multiple epinephrine, bicarbonate calcium and fluid boluses. Patient was placed on dopamine 20 mics per KG per minute, Levophed 20 mics per KG per minute, epinephrine 2.5 mics per minute and eventually stabilized with systolic blood pressure reading 120s. Hemoglobin on ABG was 7 and emergently transfused 3 units PRBC and 2 units FFP. Lab hemoglobin came back at 6.8. Patient also was profoundly acidemic with pH of 7.16. Patient received total 3 A of bicarbonate and bicarbonate infusion was started, minute ventilation was also increased. 2: MAXIMUM TEMPERATURE 100.3. Currently 99.5. No bowel movement. Tube feeds were restarted. FiO2 50%. PEEP at 8. 05/20: MAXIMUM TEMPERATURE 100.9. Positive BM. Tube feeds were restarted today. PT plateau. FiO2 down to 85%. Semiemergent bronchoscopy yesterday for right upper lobe airway obstruction. Resolved 05/21: MAXIMUM TEMPERATURE 100.7. Currently 99.6. Somewhat tachycardic. 2 bowel movements overnight. Tolerating tube feeds at 30 cc an hour. Had episode of emesis overnight. 05/22: Remains sedated, orally intubated on mechanical ventilation. 05/23: Remains sedated, orally intubated on mechanical ventilation. Dialyzed yesterday. 05/24: Remains sedated/encephalopathic, orally intubated on mechanical ventilation. Tolerating tube feeds. Awaiting dialysis 05/25: Remains encephalopathic, orally intubated on mechanical ventilation. Off sedation for 2 days now. PEEP decreased to to +7 10 No acute events overnight. For HD today. Afebrile. On PRVC/AC 20, TV 550, PEEP: 6, IT: 1.2 and FIO2 35%. On no sedation. Tolerating tube feeds. Subjective 05/27: Tmax 99.8. Currently 99.1. FiO2 down to 35%. Tolerating tube feeding. Positive BM. MRI brain reveals bilateral lacunar infarcts. Will likely need trach 05/28: Afebrile. The patient continues on CPAP trials 28/09 FiO2 of 35%, maintaining O2 sat at 97%. 05/29: The patient continues on CPAP trials. The patient underwent hemodialysis today. The patient is noted to be a medium dose sliding scale insulin with persistent hyperglycemia will increase to high-dose insulin sliding scale. Per hematology the patient was placed on heparin infusion initially, then discontinued.. 05/30 Tmax 100.1. S/P initiation of therapeutic anticoagulation ,serial hemoglobin stable, continue to monitor every 12 hours. Patient continues to fail CPAP trials, plan for tracheostomy, Discussed with patient spouse, she desires a trach and PEG, at this time. 05/31 Tmax 100.1. Maintaining CPAP trials occasionally 3-4 hours. Discussed with family risk and benefits of tracheostomy. Discussed with family MRI results, EEG results. Family requests continue aggressive support. Plan for percutaneous tracheostomy . GI consulted for PEG placement. 06/01 Percutaneous tracheostomy performed today. Plan for patient to go to IR for new Vas-Cath placement per nephrology. 06/02 Patient s/p trach yesterday. For PEG tube placement and HD today today. On no sedation. T: 100.2 06/03 Patient s/p PEG tube placement and HD yesterday with removal 5L. Afebrile. Remains off sedation. 06/04 no acute events overnight. Tolerating C Pap. Will place on T piece 2-4 hours. No change in neuro exam 06/05 No acute events overnight. Tolerated CPAP/TP's trials for 4 hrs yesterday. Afebrile. For HD today Objective Vital Signs Date Time Temp Pulse Resp B/P Pulse Ox O2 Delivery O2 Flow Rate FiO2 06/05/16 07:28 40 06/05/16 07:28 95 06/05/16 06:00 84 06/05/16 04:00 99.0 28 152/85 Intake and Output 06/04/16 06/04/16 06/05/16 08:00 16:00 00:00 Intake Total 237 ml 562 ml 345 ml Output Total 75 ml 50 ml 125 ml Balance 162 ml 512 ml 220 ml Result Diagram: 06/04/16 0725 06/04/16 0725 Imaging Last Impressions Gastrostomy Tube Placement 06/02/16 0000 Signed Impressions: Service Date/Time: Thursday, June 02, 2016 12:31 - CONCLUSION: Uncomplicated gastrostomy tube placement as above. Isidro Flor MD Catheter Placement X-Ray 06/02/16 0000 Signed Impressions: Service Date/Time: Thursday, June 02, 2016 12:31 - CONCLUSION: 1. Uncomplicated line placement as above. 2. Patient currently has a modified left subclavian PermCath catheter that is being utilized as a temporary access. Isidro Flor MD Chest X-Ray 06/01/16 0000 Signed Impressions: Service Date/Time: May 14:20 - CONCLUSION: 1. Tracheostomy in good position. No pneumothorax. Mahin Peters MD Brain MRI 05/27/16 0000 Signed Impressions: Service Date/Time: Friday, May 27, 2016 12:17 - CONCLUSION: Multifocal bilateral T2 signal abnormalities in restricted diffusion concerning for bilateral lacunar infarcts. Carlitos Aguirre MD Lower Extremity Ultrasound 05/26/16 0000 Signed Impressions: Service Date/Time: Thursday, May 26, 2016 13:51 - CONCLUSION: New thrombosed right posterior tibial vein. Jonathon Peters MD FACR Upper Extremity Ultrasound 05/25/16 0000 Signed Impressions: Service Date/Time: May 08:56 - CONCLUSION: 1. Occlusive thrombus in the right distal cephalic vein. 2. Nonocclusive thrombus in the left mid and distal basilic veins. Sammy Duran MD Head CT 05/16/16 0000 Signed Impressions: Service Date/Time: Monday, May 16, 2016 08:30 - CONCLUSION: Suspected bilateral basal ganglia calcifications are unchanged. No evidence of hemorrhage, edema, mass or mass effect. Stephen Quintanilla MD Abdomen/Pelvis CT 05/16/16 0000 Signed Impressions: Service Date/Time: Monday, May 16, 2016 08:39 - CONCLUSION: There are large areas of hemorrhage including the left retroperitoneum and psoas muscle, within the mesentery and a smaller area in the right psoas muscle. They don't appear to be related to the abdominal aorta or the internal iliac arteries. There is a small focal collection hemorrhage adjacent to the left external iliac artery as it enters the pelvis, but I don't believe that is related to the large amount of hemorrhage seen elsewhere. The areas of hemorrhage are large and multi-focal. Stephen Quintanilla MD CT Angiography 05/06/16 0000 Signed Impressions: Service Date/Time: Saturday, May 07, 2016 00:04 - CONCLUSION: 1. Lobar consolidation bilaterally in the lower lobes. 2. Negative for pulmonary embolism. Michael Colbert MD Objective Remarks GENERAL: 61-year-old AA male, morbidly obese on ventilator via trach, comatose SKIN: Warm and dry. No rash HEAD: Atraumatic. Normocephalic. EYES: Pupils equal and round around 2-3 mm bilaterally and slightly reactive. No scleral icterus. No injection or drainage. ENT: No nasal bleeding or discharge. NECK: JVD difficult to assess due to body habitus. s/p Trach, no bleeding from site CARDIOVASCULAR: Tachycardic nl S1, S2. Without murmur RESPIRATORY: Diminished breath sounds bilaterally due to body habitus. Breath sounds equal bilaterally. GASTROINTESTINAL: Abdomen obese, non-tender, protuberant, distended. no guarding. Peg tube in place MUSCULOSKELETAL: Extremities with 1+ edema NEUROLOGICAL: Patient remains comatose, off sedation since morning of 05/23. Pupils are sluggishly reactive. Bilateral lower extremity mildly withdrawal to pain. +ve Corneal reflex, gag reflex A/P Assessment and Plan Neuro/Psych: Bilateral basal ganglia infarcts, small punctate white matter infarcts on MRI Toxic metabolic encephalopathy Patient remains comatose. Has been off sedation > [address] Felix, following MRI of the brain done 05/16/16 shows small punctate white matter infarcts, bilateral basal ganglia infarcts Repeat MRI brain 05/27 similar Off Seroquel and Haldol due to nonsustained V. tach Head CT 05/08, 05/16: negative acute. EEG 05/12 revealed generalized slowing right greater than left. No epileptiform activity. EEG 05/16: No seizure, severe encephalopathy. CV: Hemorrhagic shock due to left retroperitoneal hemorrhage-shock resolved Severe bradycardia and hypotension 05/17/16 most likely secondary to recurrent bleed Aberrant RCA off LCC Nonsustained V. tach single episode Diastolic heart failure Coronary artery disease Nonischemic cardiomyopathy secondary to hypertensive heart disease Hypertensive emergency On Procardia 30mg Q8, Labetalol 200 every 8, Hydralazine 50mg Q 8hrs Status post cardiac catheterization by Dr. Moy. No intervention performed. Known coronary artery artery disease to the first and second diagonals the LAD. Aberrant RCA off left coronary cups. Transfer to fo RCA for unroofing -on hold due no improvement in neuro status Aspirin 81 mg on hold due to RP hemorrhage. (Plavix DC d 05/15/[address] Marcano at that time in anticipation of probable unroofing surgery) Lipitor 20 mg by mouth daily held in light of elevated liver function tests 05/30 Short run 8-9 beats V-tach last evening with resolution, no intervention Pulm: Acute hypoxemic respiratory failure-extubated 05/13/16, re intubated 05/16/16 for airway protection Likely underlying STU Right upper lobe mucus plugging Contineu with vent support keep sat >92% S/P percutaneous tracheostomy. 8.0 Shiley 06/01 Ventilator bundle, SBT/TP's daily as tolerated Bronchodilator therapy every 4 hours and as needed. Pulm toilet, trach care GI: S/P large left retroperitoneal hemorrhage 05/15 Hypoalbuminemia Elevated LFT's Continue TF via PEG(Nepro at 50 cc an hour) Continue Protonix for GI prophylaxis Colace/Senokot twice a day for bowel regimen /Renal: Acute kidney failure due to ATN Anuria Chaudhry for accurate I's and O's in a critically ill patient HD started 05/17/16 , Sunday. Renal- Dr. Mcintosh Endo: Diabetes mellitus type 2 Hyperglycemia SSI medium scale with accuchecks Q6 Heme: s/p Acute blood loss anemia with shock Large left retroperitoneal hemorrhage Right cephalic superficial thrombus left basilic thrombus/right PT THROMBUS Normocytic anemia Leukocytosis Monitor CBC, Heme is following. On Epogen with HD Hematology on board, Transfused 3 units PRBC stat on 05/16/16 Transfused 3 units PRBC and 2 units FFP Transfuse 1 unit PRBCs 05/19. Therapeutic Lovenox discontinued, aspirin placed on hold 75 mg IV protamine slow infusion (D/W with Dr. mcintosh) on 05/16/16. Was on Lovenox 150 mg subcutaneous twice a day-DCd 05/16/16 ID: Aspiration pneumonia/Enterobacter aerogenes in sputum Leukocytosis --Off abx per ID Dr. Mariee Monitor for signs of infection( Fever, WBC) follow up on cxs from 06/02 -Replace Chaudhry and send UA Pertinent cultures 05/07 - blood cultures 2 - negative 05/08 - sputum - negative 05/08 - urine - negative 05/08 - blood cultures - negative 05/13 - blood cx negative 05/13 - urine cx negative 05/16 - sputum Enterobacter aerogenes 05/16 - urine neg 131 - blood cultures neg 05/18 - blood cultures- negative 05/19 - bronchoscopy - Yeast 05/27 Sputum Enterobacter 06/02 Sputum: Enterobacter Urine cx: C. Glabrata MSK: History of spinal stenosis/laminectomy/left total knee replacement and left ring finger amputation PT evaluate and treat Access - Left subclavian vascath placed 06/02, peripheral IV;'s Prophylaxis - GI - Protonix - DVT -Heparin 5000 SQ BID, SCD on L leg - Doppler US UE: Occlusive thrombus in the right distal cephalic vein. Nonocclusive thrombus in the left mid and distal basilic veins. -Repeat US upper and lower DVT CCT 30 mins Adryan Augustine MD Jun 05, 2016 08:22
--- NOTE | 2016-06-05 10:02 | HHI.NPPN ---
Subjective History of Present Illness 61 year old with ARF, CHF, Respiratory failure Additional Remarks Patient s/p Trach and off sedation, remain unresponsive Objective Data Data 06/04/16 06/05/16 19:00 07:00 Intake Total 562 ml 695 ml Output Total 50 ml 225 ml Balance 512 ml 470 ml Intake Oral 0 ml IV Total 75 ml 0 ml Tube Feeding 287 ml 695 ml Other 200 ml Output Urine Total 50 ml 225 ml # Bowel Movements 2 Vital Signs Date Time Temp Pulse Resp B/P Pulse Ox O2 Delivery O2 Flow Rate FiO2 06/05/16 08:00 84 06/05/16 08:00 98.1 84 22 142/76 99 06/05/16 08:00 40 06/05/16 07:28 40 06/05/16 07:28 95 40 06/05/16 06:00 84 06/05/16 04:07 98 40 06/05/16 04:00 117 06/05/16 04:00 99.0 117 28 152/85 100 06/05/16 04:00 40 06/05/16 02:00 82 06/05/16 01:25 99 40 06/05/16 00:00 98.6 83 23 128/76 98 06/05/16 00:00 83 06/05/16 00:00 40 06/04/16 22:25 92 40 06/04/16 22:00 109 06/04/16 20:00 115 06/04/16 20:00 40 06/04/16 20:00 99.8 115 22 136/89 98 06/04/16 19:36 99 40 06/04/16 18:00 85 06/04/16 16:08 99 40 06/04/16 16:00 40 06/04/16 16:00 99.3 100 20 141/93 96 06/04/16 16:00 85 06/04/16 14:00 85 06/04/16 12:00 98.8 116 24 135/82 96 06/04/16 12:00 85 06/04/16 11:08 40 06/04/16 11:04 40 -: 06/04/16 0725 06/04/16 0725 Physical Exam General Appearance: Obese Neck Neck Exam: Neck Supple Pulmonary Resp Exam: Rhonchi, Decreased Bases, Diminished Breath Sounds, Poor Inspiratory Effort Cardiology CV Exam: Tachycardia Gastrointestinal/Abdomen GI Exam: Soft, Non-Tender, Distended Extremeties Extremities Exam: Moderate Edema, Pitting Edema, Dependent Edema Neurologic Neuro Exam: Unresponsive Assessment/Plan Problem List: (1) Acute renal failure Plan: Patient has oliguric acute renal failure and remains essentially oliguric. 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 Plan: Cardiology following (4) Acute hypoxemic respiratory failure Plan: On ventilator (5) Hypertensive emergency Plan: BP improved (6) Diabetes mellitus Plan: Continue monitor blood glucose (7) CAD (coronary artery disease) Plan: Presented with STEMI, follow with cardiology (8) Subsequent ST elevation (STEMI) myocardial infarction of anterior wall Plan: Planned transfer to [facility] when stable. No intervention performed here. Problem Qualifiers (1) Acute renal failure: Qualified Code: N17.0 - Acute renal failure with tubular necrosis (2) Diabetes mellitus: Qualified Code: E13.8 - Diabetes mellitus of other type with complication, unspecified [facility] insulin use status (3) CAD (coronary artery disease): Qualified Code: I25.10 - Coronary artery disease, angina presence unspecified, unspecified vessel or lesion type, unspecified whether [place] or transplanted heart Linda Mcintosh MD Jun 05, 2016 10:02
--- NOTE | 2016-06-05 11:53 | RADRPT ---
EXAM DATE/TIME: 06/05/2016 10:52 [facility] COMPARISON: No previous studies available for comparison. INDICATIONS : Left leg swelling. MEDICAL HISTORY : Myocardial infarction. Congestive heart failure. Hypertension. Diabetes. SURGICAL HISTORY : Back surgery. Meniscus repair. ENCOUNTER: Subsequent ACUITY: 3 weeks PAIN SCORE: Non-responsive LOCATION: Left leg. TECHNIQUE: Venous ultrasound of the leg was performed from the inguinal ligament to the proximal calf. Real-pablo e, color Doppler and spectral tracing, compression and augmentation techniques were used. FINDINGS: There is normal compressibility of the deep venous system from the inguinal region to the proximal ca lf. No echogenic clot is seen in the lumen of the common femoral, femoral, popliteal, and posterior tibial veins. There is a normal response of the venous system to proximal and distal augmentation an d respiration. CONCLUSION: Normal examination. No evidence of DVT Shahid Sin MD on June 05, 2016 at 11:50 Board Certified Radiologist. This report was verified electronically.
--- NOTE | 2016-06-05 11:55 | RADRPT ---
EXAM DATE/TIME: 06/05/2016 11:01 [facility] COMPARISON: No previous studies available for comparison. INDICATIONS : Bilateral arm swelling. MEDICAL HISTORY : Myocardial infarction. Congestive heart failure. Hypertension. Diabetes. SURGICAL HISTORY : Back surgery. Meniscus repair. ENCOUNTER: Subsequent ACUITY: 3 weeks PAIN SCORE: Non-responsive LOCATION: Bilateral arms. FINDINGS: There is occlusive thrombus in the right cephalic mid vein and left basilic vein extending towards th e distal aspect. Remainder the examination is negative. CONCLUSION: Occlusive thrombus right cephalic vein and left basilic vein Shahid Sin MD on June 05, 2016 at 11:52 Board Certified Radiologist. This report was verified electronically.
[2016-06-05 17:10] LABS: AUTOMATED NEUTROPHIL # 15.6 TH/MM3 (1.8-7.7); BASOPHIL # 0.1 TH/MM3 (0-0.2); BASOPHIL % 0.4 % (0.0-2.0); EOSINOPHIL # 0.1 TH/MM3 (0-0.4); EOSINOPHIL % 0.6 % (0.0-4.0); HEMATOCRIT 31.1 % (39.0-51.0); HEMO FLAGS DIFF FINAL; LYMPH % 5.2 % (9.0-44.0); LYMPHOCYTE # 0.9 TH/MM3 (1.0-4.8); MEAN CELL VOLUME 90.1 FL (80.0-100.0); MEAN CORPUSCULAR HEMOGLOBIN 28.9 PG (27.0-34.0); MONO % 5.3 % (0.0-8.0); NEUT % 88.5 % (16.0-70.0); PLATELET COUNT 253 TH/MM3 (150-450); RED BLOOD COUNT 3.45 MIL/MM3 (4.50-5.90); RED CELL DISTRIBUTION WIDTH 16.9 % (11.6-17.2); WHITE BLOOD COUNT 17.7 TH/MM3 (4.0-11.0)
--- NOTE | 2016-06-05 17:25 | RADRPT ---
EXAM DATE/TIME: 06/05/2016 16:05 [place] COMPARISON: US LEG BILATERAL VENOUS DOPPLER, May 26, 2016, 13:51. US LEG LEFT VENOUS DOPPLER, June 05, 2016, 10:52. INDICATIONS : Right leg swelling. MEDICAL HISTORY : Hypertension. Congestive heart failure. Diabetes. SURGICAL HISTORY : Back surgery. Meniscus fix. ENCOUNTER: [facility] ACUITY: 1 day PAIN SCORE: Non-responsive LOCATION: Right leg TECHNIQUE: Venous ultrasound of the leg was performed from the inguinal ligament to the proximal calf. Real-pablo e, color Doppler and spectral tracing, compression and augmentation techniques were used. FINDINGS: There is normal compressibility of the deep venous system from the inguinal region to the proximal ca lf. No echogenic clot is seen in the lumen of the common femoral, femoral, popliteal, and posterior tibial veins. There is a normal response of the venous system to proximal and distal augmentation an d respiration. CONCLUSION: Normal examination. No evidence of DVT Shahid Sin MD on June 05, 2016 at 17:21 Board Certified Radiologist. This report was verified electronically.
[2016-06-05 17:46] LABS: ALKALINE PHOSPHATASE 198 U/L (45-117); ALT (GPT) 187 U/L (12-78); ANION GAP 17 MEQ/L (5-15); AST (GOT) 233 U/L (15-37); BICARBONATE 22.7 MEQ/L (21.0-32.0); CHLORIDE 101 MEQ/L (98-107); GLOMERULAR FILTRATION RATE 11 ML/MIN (>89); POTASSIUM 5.2 MEQ/L (3.5-5.1); SODIUM (NA) 141 MEQ/L (136-145); TOTAL BILIRUBIN ADULT 0.6 MG/DL (0.2-1.0)
[2016-06-05 17:47] LABS: BLOOD UREA NITROGEN 107 MG/DL (7-18)
[2016-06-05] MEDS: ACETAMINOPHEN 650 MG/20.3 ML UDC TUBE PRN (20:30)
--- NOTE | 2016-06-05 22:21 | PD.ONC.PN ---
Subjective Subjective Remarks remains critically ill. No bleeding, Leg swelling about the same CPAP/TP trials ongoing d/w rn Objective Data Date Time Temp Pulse Resp B/P Pulse Ox O2 Delivery O2 Flow Rate FiO2 06/05/16 20:05 100 50 06/05/16 20:00 101.0 90 22 192/86 100 06/05/16 18:00 117 06/05/16 16:33 92 50 06/05/16 16:00 40 06/05/16 16:00 98.2 98 18 115/71 100 06/05/16 16:00 91 06/05/16 14:21 94 40 06/05/16 14:00 117 06/05/16 13:00 99 40 06/05/16 13:00 40 06/05/16 12:00 40 06/05/16 12:00 91 06/05/16 12:00 99.1 91 20 131/72 100 06/05/16 10:19 97 40 06/05/16 10:00 117 06/05/16 08:00 84 06/05/16 08:00 98.1 84 22 142/76 99 06/05/16 08:00 40 06/05/16 07:28 40 06/05/16 07:28 95 40 06/05/16 06:00 84 06/05/16 04:07 98 40 06/05/16 04:00 117 06/05/16 04:00 99.0 117 28 152/85 100 06/05/16 04:00 40 06/05/16 02:00 82 06/05/16 01:25 99 40 06/05/16 00:00 98.6 83 23 128/76 98 06/05/16 00:00 83 06/05/16 00:00 40 06/04/16 22:25 92 40 06/05/16 06/05/16 06/05/16 07:00 15:00 23:00 Intake Total 350 ml 508 ml Output Total 100 ml 3075 ml Balance 250 ml -2567 ml Result Diagram: 06/05/16 1615 06/05/16 1615 Laboratory Results Laboratory Tests Test 06/05/16 16:15 White Blood Count 17.7 TH/MM3 Red Blood Count 3.45 MIL/MM3 Hemoglobin 9.9 GM/DL Hematocrit 31.1 % Mean Corpuscular Volume 90.1 FL Mean Corpuscular Hemoglobin 28.9 PG Mean Corpuscular Hemoglobin 32.0 % Concent Red Cell Distribution Width 16.9 % Platelet Count 253 TH/MM3 Mean Platelet Volume 8.6 FL Neutrophils (%) (Auto) 88.5 % Lymphocytes (%) (Auto) 5.2 % Monocytes (%) (Auto) 5.3 % Eosinophils (%) (Auto) 0.6 % Basophils (%) (Auto) 0.4 % Neutrophils # (Auto) 15.6 TH/MM3 Lymphocytes # (Auto) 0.9 TH/MM3 Monocytes # (Auto) 0.9 TH/MM3 Eosinophils # (Auto) 0.1 TH/MM3 Basophils # (Auto) 0.1 TH/MM3 CBC Comment DIFF FINAL Differential Comment Sodium Level 141 MEQ/L Potassium Level 5.2 MEQ/L Chloride Level 101 MEQ/L Carbon Dioxide Level 22.7 MEQ/L Anion Gap 17 MEQ/L Blood Urea Nitrogen 107 MG/DL Creatinine 6.51 MG/DL Estimat Glomerular Filtration 11 ML/MIN Rate Random Glucose 223 MG/DL Calcium Level 7.6 MG/DL Total Bilirubin 0.6 MG/DL Aspartate Amino Transf 233 U/L (AST/SGOT) Alanine Aminotransferase 187 U/L (ALT/SGPT) Alkaline Phosphatase 198 U/L Total Protein 6.5 GM/DL Albumin 2.4 GM/DL Culture Results Microbiology Date/Time Procedure Status Source Growth 06/02/16 23:20 Wound Culture - Final Complete Catheter Tip Vas Cath Imaging Studies Last 24 hours Impressions Upper Extremity Ultrasound 06/05/16 0000 Signed Impressions: Service Date/Time: Sunday, June 05, 2016 11:01 - CONCLUSION: Occlusive thrombus right cephalic vein and left basilic vein Shahid Sin MD Lower Extremity Ultrasound 06/05/16 0000 Signed Impressions: Service Date/Time: Sunday, June 05, 2016 16:05 - CONCLUSION: Normal examination. No evidence of DVT Shahid Sin MD Lower Extremity Ultrasound 06/05/16 0000 Signed Impressions: Service Date/Time: Sunday, June 05, 2016 10:52 - CONCLUSION: Normal examination. No evidence of DVT Shahid Sin MD Administered Medications Medications (Trade) Dose Ordered Sig/Isabelel Route PRN Reason Start Time Stop Time Status Last Admin Dose Admin IV Flush (NS Flush) 2 ml UNSCH PRN IV FLUSH FLUSH AFTER USING IV ACCESS 05/05/16 17:15 05/24/16 00:59 IV Flush (NS Flush) 2 ml BID IV FLUSH 05/05/16 21:00 06/05/16 07:46 Artificial Tears (Tears Naturale Opth Soln) 1 drop TID EACH EYE 05/05/16 18:00 06/05/16 18:00 Ondansetron HCl (Zofran Inj) 4 mg Q6H PRN IV NAUSEA OR VOMITING 05/05/16 17:15 05/26/16 01:34 Docusate Sodium (Colace) 100 mg BID PO 05/05/16 21:00 06/04/16 08:34 Miscellaneous Information 1 Q361D XX 05/05/16 17:15 05/05/16 17:15 Chlorhexidine Gluconate (Chlorhexidine 2% Cloth) Taper DAILY@04 TOP 05/06/16 04:00 05/02/17 03:59 06/05/16 04:00 Aspirin (Aspirin Chew) 81 mg DAILY CHEW 05/06/16 09:00 Hold 05/15/16 08:30 Atorvastatin Calcium (Lipitor) 20 mg DAILY PO 05/06/16 09:00 Hold 05/15/16 08:32 Sennosides (Senokot) 17.2 mg Q12H PO 05/06/16 18:00 Hold 05/26/16 05:37 Furosemide (Lasix) 20 mg BID@09,18 PO 05/15/16 18:00 Hold 05/15/16 17:22 Chlorhexidine Gluconate 15 ml 15 ml BID@08,20 MT 05/16/16 20:00 06/05/16 20:31 Sodium Chloride 1,000 ml @ 0 mls/hr Q0M PRN IV For Prime & Rinse Back 05/17/16 12:13 06/05/16 08:12 Sodium Chloride 1,000 ml @ 200 mls/hr Q5H PRN IV WITH DIALYSIS 05/17/16 12:13 05/31/16 08:11 Sodium Chloride (NS 1000 ml Inj) 1,000 ml @ 0 mls/hr Q0M PRN IV WITH DIALYSIS 05/17/16 12:13 06/03/16 12:58 IV Flush (NS Flush) 5 ml UNSCH PRN IVF WITH DIALYSIS 05/17/16 12:15 05/31/16 08:12 Heparin Sodium (Porcine) (Heparin Inj) UNSCH PRN .XX WITH DIALYSIS 05/17/16 12:15 06/05/16 08:12 Gentamicin Sulfate (Gentamicin (Dialysis) Inj) 20 mg UNSCH PRN IV WITH DIALYSIS 05/17/16 12:15 06/05/16 08:13 Epoetin Adonay 45606 units 10,000 units UNSCH PRN IV WITH DIALYSIS 05/17/16 12:15 06/05/16 08:13 Midazolam HCl 100 ml @ 0 mls/hr TITRATE IV 05/17/16 21:45 05/23/16 00:27 Fentanyl Citrate (fentaNYL DRIP) 250 ml @ 0 mls/hr TITRATE IV 05/18/16 20:00 05/23/16 00:27 Nifedipine (Procardia) 30 mg Q8HR PO 05/25/16 14:00 06/05/16 20:29 Hydralazine HCl (Apresoline Inj) 10 mg Q1HR PRN IV PUSH SBP>160, DBP>90 05/27/16 18:00 05/29/16 16:18 Labetalol HCl (Trandate Inj) 10 mg Q1HR PRN IV PUSH SBP>160, DBP>90, HR>65 05/27/16 17:30 06/03/16 19:51 Metoclopramide HCl (Reglan Inj) 5 mg Q8HR IV PUSH 05/27/16 22:00 06/05/16 20:30 Labetalol HCl (Trandate) 200 mg Q8HR PO 05/27/16 22:00 06/05/16 20:29 Acetaminophen (Tylenol 650 Mg/ 20 ml Liq) 650 mg Q6H PRN TUBE TEMP > 100.5 05/31/16 13:30 06/05/16 20:30 Glucagon (Glucagon Inj) 1 mg UNSCH PRN OTHER HYPOGLYCEMIA-SEE COMMENTS 06/02/16 07:15 06/02/16 14:00 Insulin Human Regular (NovoLIN R SUPPLEMENTAL SCALE) 1 Q6H SQ 06/02/16 07:30 06/05/16 20:31 Heparin Sodium (Porcine) (Heparin Inj) 5,000 units Q12HR SQ 06/02/16 21:00 06/05/16 20:28 Hydralazine HCl (Apresoline) 50 mg Q8HR PO 06/03/16 14:00 06/05/16 20:29 Objective Remarks GENERAL: acutely ill SKIN: Warm and dry. LYMPHATIC: No adenopathy. CARDIOVASCULAR: Regular rate and rhythm without murmurs. RESPIRATORY: Breath sounds equal bilaterally. No accessory muscle use. GASTROINTESTINAL: Abdomen soft, non-tender, distended due to obesity EXTREMITIES: No cyanosis, edematous lower extremities Assessment/Plan Problem List: (1) Occlusive thrombus Status: Acute Plan: -- US on 05/25/16 shows occlusive thrombus to R distal cephalic vein -- US on 05/18 and 05/26 shows clot to R posterior tibial vein. Per Dr. Peters there has been propagation of the clot between 05/18 and 05/26. (2) Retroperitoneal bleed Status: Acute Plan: -- Lg areas of hemorrhage involving the left peritoneum psoas muscle, the mesentery as well as area adjacent to the left external iliac artery found on CT 05/16 -- Daily CBC -- Repeat CT Abdomen once stable (3) Anemia Status: Acute Plan: -- Transfuse to keep Hgb greater than 8. -- Worsening anemia concerning for recurrent bleed to retroperitoneum. Assessment 62 y/o male who presented to the ED with chest pain and was found to be in acute STEMI. Plan 1. LE swelling stable. No bleeding 2. Continue prophylactic Heparin 3. If LE swelling worsens will repeat dopplers. 4. Anemia stable Problem Qualifiers (1) Anemia: Carmelo Veras MD Jun 05, 2016 22:21
[2016-06-06] VITALS (22 sets, daily range): BP systolic 149–183; BP diastolic 71–86; PULSE 75–115; RESP 20–24; TEMP 98.9–100.8; O2SAT 93–100
[2016-06-06] MEDS: INSULIN NovoLIN REGULAR SUPPLEMENTAL SCALE SQ SCH ×4 (02:07→19:30)
[2016-06-06] MEDS: RESP: ALBUTEROL 2.5 MG/IPRATROPIUM 0.5 MG NEB (SCH) NEB ×2 (03:17→07:49)
[2016-06-06] MEDS: CHLORHEXIDINE GLUCONATE 2 % 1 PACK (2 CLOTHS) TOP SCH (04:00)
[2016-06-06] MEDS: LABETALOL HCL 200 MG TAB PO SCH ×3 (05:15→20:17)
[2016-06-06] MEDS: NIFEdipine 10 MG CAP PO SCH (05:15)
[2016-06-06] MEDS: hydrALAZINE HCL 25 MG TAB PO SCH ×3 (05:15→20:16)
[2016-06-06] MEDS: METOCLOPRAMIDE HCL 10 MG/2 ML VIAL IV PUSH SCH ×3 (05:15→20:17)
[2016-06-06 06:48] LABS: ALKALINE PHOSPHATASE 217 U/L (45-117); ALT (GPT) 209 U/L (12-78); ANION GAP 18 MEQ/L (5-15); AST (GOT) 272 U/L (15-37); BICARBONATE 22.7 MEQ/L (21.0-32.0); CHLORIDE 99 MEQ/L (98-107); GLOMERULAR FILTRATION RATE 9 ML/MIN (>89); POTASSIUM 5.2 MEQ/L (3.5-5.1); SODIUM (NA) 140 MEQ/L (136-145); TOTAL BILIRUBIN ADULT 0.6 MG/DL (0.2-1.0)
[2016-06-06 07:20] LABS: BLOOD UREA NITROGEN 117 MG/DL (7-18)
[2016-06-06] MEDS: CHLORHEXIDINE 0.12% (ORAL KIT) 15 ML CUP MT SCH ×2 (08:00→20:16)
[2016-06-06 08:08] LABS: AUTOMATED NEUTROPHIL # 11.3 TH/MM3 (1.8-7.7); BASOPHIL # 0.1 TH/MM3 (0-0.2); BASOPHIL % 0.4 % (0.0-2.0); EOSINOPHIL # 0.2 TH/MM3 (0-0.4); EOSINOPHIL % 1.5 % (0.0-4.0); HEMATOCRIT 30.4 % (39.0-51.0); HEMO FLAGS DIFF FINAL; LYMPH % 7.2 % (9.0-44.0); MEAN CELL VOLUME 88.2 FL (80.0-100.0); MEAN CORPUSCULAR HEMOGLOBIN 28.8 PG (27.0-34.0); MEAN CORPUSCULAR HGB CONC 32.7 % (32.0-36.0); MONO % 8.2 % (0.0-8.0); NEUT % 82.7 % (16.0-70.0); PLATELET COUNT 243 TH/MM3 (150-450); RED BLOOD COUNT 3.45 MIL/MM3 (4.50-5.90); RED CELL DISTRIBUTION WIDTH 16.8 % (11.6-17.2); WHITE BLOOD COUNT 13.6 TH/MM3 (4.0-11.0)
--- NOTE | 2016-06-06 08:17 | HHI.CCPN ---
Subjective Remarks/Hospital Course 61-year-old AA male. Date of admission 05/05/2016. Date of consultation 2016. Past medical history includes hypertensive heart disease, hypertension, diabetes mellitus type 2 and spinal stenosis. He presented to [place] today with history of acute onset of diaphoresis, chest pain and syncope. Her documentation, Chest pain was 7 out of 10 without radiation. Later in the hospital physician, patient did have ST elevation anterior septal leads. I he had a cardiac catheterization in 2009 which revealed moderate coronary disease which documented 50-60% stenosis in the LAD diagonals 1 and 2. Recommended medical management at that time. Dr. Marcano was notified and proceed to the cardiac catheter lab. Patient sees heparin and one aspirin prior to cardiac catheterization. During heart catheterization,, patient became hypertensive, tachypneic, hypoxic and agitated including abdominal pain with nausea and vomiting. Patient was intubated by Dr. Simon and dispensed transferred to room 505a. Currently hemodynamic stable on a propofol drip. 05/06: Patient required additional sedation overnight. Was moving all 4 extremity spontaneously and strongly. Potassium is replaced overnight along with magnesium. This afternoon approximate 4 PM, patient went into a sinus bradycardia in the 40s. RN cannot locate pulse and possibly went into a PEA arrest. Patient received CPR for approximately 2 minutes. ROSC return immediately. Received 1 mg of epinephrine IV. Blood pressure was 240 systolic. Saturations were above 90% the entire time. Dr. Marcano was made aware. No new recommendations at this time. Electrolytes currently pending. Patient is currently hemodynamic stable and an arterial line/left radial has been placed 05/07: no improvement in delirium or mental status. spiking low grade fevers. 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 CT surgery consulted and declined to operate here: he will need referral once stabilized. fio2 requirements still high. CT chest also with evidence of bibasilar consolidation which may be aspiration pneumonitis vs. pneumonia now that we are 48h out from initial presentation and now spiking fevers. 05/08: delirium persists. continues to spike fevers. jolly cultured yesterday without results yet. holding sedation today. 05/09: delirium slightly improved. waking up on SAT, weakly following commands. cultures still NGTD. hypoxia slightly improved. 05/10: delirium improving. weakly following commands still. cultures still NGTD. fevers persist, although fever curve appears to be improving. hypoxia continues to improve. still remains very critically ill. 05/11: Tmax 99.9. Currently 99.1. Tolerating tube feeding. One bowel movement. Continues to have difficulty weaning ventilator. 05/12: Currently afebrile. Tolerating tube feeding. Positive BM. Increased FiO2 from 45-60%. +1 L. Arousable on sedation vacation and weakly follows commands. 05/13: Remains intubated, sedated. FiO2 now reduced to 45% (was 55% today am). Start weaning trials after starting Precedex. To control BP May use Cardene, given anomalous RCA 05/14: Extubated yesterday, remained on BiPAP overnight. Intermittently agitated. Following commands to me today, while on BiPAP. Remains on Cardene infusion for uncontrolled hypertension. Urine output 4.7 L in 24 hours 05/15: On 3 L nasal cannula. Fever trending down, breathing more comfortably. Able to communicate. Discussed with Dr. Marcano. Dr. Pendleton will be available tomorrow, will probably need transfer to [facility] for RCA unroofing 05/16: Acutely hypotensive overnight with tachycardia. MAP was 55 with greater than 130s. Received 3.5 L of normal saline bolus with improvement in blood pressure and heart rate. Lethargic on BiPAP. ABG pending, HB dropped from 10.9 to 7.8. No obvious source of bleeding. STAT 2U PRBC. STAT CT head and CT abd pelvis. R/O ICH or RP bleed. Patient received only 5mg Nicci at 2100 yesterday, no other sedation. Last dose of Lovenox was at 211, held now 05/17: Developed Hemorrhagic shock from large retroperitoneal hemorrhage night to 05/15/16. Stabilized after 3 units of PRBC and protamine. Hemoglobin 8.7 today. Remain encephalopathy and unresponsive yesterday. MRI 05/16/16 shows small punctate white matter infarcts, bilateral basal ganglia infarcts. Urology consult pending. Antiplatelet drugs on hold. Now with anuria from ATN secondary to shock. Nephrology consult pending 05/18: Developed sudden onset bradycardia in 40s, with acute hypotension yesterday evening around 5 PM. ACLS protocol initiated (did not arrest or lose pulse). Received multiple epinephrine, bicarbonate calcium and fluid boluses. Patient was placed on dopamine 20 mics per KG per minute, Levophed 20 mics per KG per minute, epinephrine 2.5 mics per minute and eventually stabilized with systolic blood pressure reading 120s. Hemoglobin on ABG was 7 and emergently transfused 3 units PRBC and 2 units FFP. Lab hemoglobin came back at 6.8. Patient also was profoundly acidemic with pH of 7.16. Patient received total 3 A of bicarbonate and bicarbonate infusion was started, minute ventilation was also increased. 2: MAXIMUM TEMPERATURE 100.3. Currently 99.5. No bowel movement. Tube feeds were restarted. FiO2 50%. PEEP at 8. 05/20: MAXIMUM TEMPERATURE 100.9. Positive BM. Tube feeds were restarted today. PT plateau. FiO2 down to 85%. Semiemergent bronchoscopy yesterday for right upper lobe airway obstruction. Resolved 05/21: MAXIMUM TEMPERATURE 100.7. Currently 99.6. Somewhat tachycardic. 2 bowel movements overnight. Tolerating tube feeds at 30 cc an hour. Had episode of emesis overnight. 05/22: Remains sedated, orally intubated on mechanical ventilation. 05/23: Remains sedated, orally intubated on mechanical ventilation. Dialyzed yesterday. 05/24: Remains sedated/encephalopathic, orally intubated on mechanical ventilation. Tolerating tube feeds. Awaiting dialysis 05/25: Remains encephalopathic, orally intubated on mechanical ventilation. Off sedation for 2 days now. PEEP decreased to to +7 10 No acute events overnight. For HD today. Afebrile. On PRVC/AC 20, TV 550, PEEP: 6, IT: 1.2 and FIO2 35%. On no sedation. Tolerating tube feeds. Subjective 05/27: Tmax 99.8. Currently 99.1. FiO2 down to 35%. Tolerating tube feeding. Positive BM. MRI brain reveals bilateral lacunar infarcts. Will likely need trach 05/28: Afebrile. The patient continues on CPAP trials 28/09 FiO2 of 35%, maintaining O2 sat at 97%. 05/29: The patient continues on CPAP trials. The patient underwent hemodialysis today. The patient is noted to be a medium dose sliding scale insulin with persistent hyperglycemia will increase to high-dose insulin sliding scale. Per hematology the patient was placed on heparin infusion initially, then discontinued.. 05/30 Tmax 100.1. S/P initiation of therapeutic anticoagulation ,serial hemoglobin stable, continue to monitor every 12 hours. Patient continues to fail CPAP trials, plan for tracheostomy, Discussed with patient spouse, she desires a trach and PEG, at this time. 05/31 Tmax 100.1. Maintaining CPAP trials occasionally 3-4 hours. Discussed with family risk and benefits of tracheostomy. Discussed with family MRI results, EEG results. Family requests continue aggressive support. Plan for percutaneous tracheostomy . GI consulted for PEG placement. 06/01 Percutaneous tracheostomy performed today. Plan for patient to go to IR for new Vas-Cath placement per nephrology. 06/02 Patient s/p trach yesterday. For PEG tube placement and HD today today. On no sedation. T: 100.2 06/03 Patient s/p PEG tube placement and HD yesterday with removal 5L. Afebrile. Remains off sedation. 06/04 no acute events overnight. Tolerating C Pap. Will place on T piece 2-4 hours. No change in neuro exam 06/05 No acute events overnight. Tolerated CPAP/TP's trials for 4 hrs yesterday. Afebrile. For HD today 06/06 Patient is on ventilator via trach spiked fever with T: 101.0 last night. s /p HD yesterday with removal 3L. Objective Vital Signs Date Time Temp Pulse Resp B/P Pulse Ox O2 Delivery O2 Flow Rate FiO2 06/06/16 07:52 40 06/06/16 07:52 98 06/06/16 06:00 82 06/06/16 04:00 99.0 24 183/86 Intake and Output 06/05/16 06/05/16 06/06/16 08:00 16:00 00:00 Intake Total 350 ml 508 ml 300 ml Output Total 100 ml 3075 ml 175 ml Balance 250 ml -2567 ml 125 ml Result Diagram: 06/05/16 1615 06/06/16 0525 Other Results Laboratory Tests Test 06/05/16 06/06/16 16:15 05:25 White Blood Count 17.7 TH/MM3 Red Blood Count 3.45 MIL/MM3 Hemoglobin 9.9 GM/DL Hematocrit 31.1 % Mean Corpuscular Volume 90.1 FL Mean Corpuscular Hemoglobin 28.9 PG Mean Corpuscular Hemoglobin 32.0 % Concent Red Cell Distribution Width 16.9 % Platelet Count 253 TH/MM3 Mean Platelet Volume 8.6 FL Neutrophils (%) (Auto) 88.5 % Lymphocytes (%) (Auto) 5.2 % Monocytes (%) (Auto) 5.3 % Eosinophils (%) (Auto) 0.6 % Basophils (%) (Auto) 0.4 % Neutrophils # (Auto) 15.6 TH/MM3 Lymphocytes # (Auto) 0.9 TH/MM3 Monocytes # (Auto) 0.9 TH/MM3 Eosinophils # (Auto) 0.1 TH/MM3 Basophils # (Auto) 0.1 TH/MM3 CBC Comment DIFF FINAL Differential Comment Sodium Level 141 MEQ/L 140 MEQ/L Potassium Level 5.2 MEQ/L 5.2 MEQ/L Chloride Level 101 MEQ/L 99 MEQ/L Carbon Dioxide Level 22.7 MEQ/L 22.7 MEQ/L Anion Gap 17 MEQ/L 18 MEQ/L Blood Urea Nitrogen 107 MG/DL 117 MG/DL Creatinine 6.51 MG/DL 7.31 MG/DL Estimat Glomerular Filtration 11 ML/MIN 9 ML/MIN Rate Random Glucose 223 MG/DL 199 MG/DL Calcium Level 7.6 MG/DL 7.6 MG/DL Total Bilirubin 0.6 MG/DL 0.6 MG/DL Aspartate Amino Transf 233 U/L 272 U/L (AST/SGOT) Alanine Aminotransferase 187 U/L 209 U/L (ALT/SGPT) Alkaline Phosphatase 198 U/L 217 U/L Total Protein 6.5 GM/DL 6.5 GM/DL Albumin 2.4 GM/DL 2.3 GM/DL Imaging Last Impressions Gastrostomy Tube Placement 06/02/16 0000 Signed Impressions: Service Date/Time: Thursday, June 02, 2016 12:31 - CONCLUSION: Uncomplicated gastrostomy tube placement as above. Isidro Flor MD Catheter Placement X-Ray 06/02/16 0000 Signed Impressions: Service Date/Time: Thursday, June 02, 2016 12:31 - CONCLUSION: 1. Uncomplicated line placement as above. 2. Patient currently has a modified left subclavian PermCath catheter that is being utilized as a temporary access. Isidro Flor MD Chest X-Ray 06/01/16 0000 Signed Impressions: Service Date/Time: May 14:20 - CONCLUSION: 1. Tracheostomy in good position. No pneumothorax. Mahin Peters MD Brain MRI 05/27/16 0000 Signed Impressions: Service Date/Time: Friday, May 27, 2016 12:17 - CONCLUSION: Multifocal bilateral T2 signal abnormalities in restricted diffusion concerning for bilateral lacunar infarcts. Carlitos Aguirre MD Lower Extremity Ultrasound 05/26/16 0000 Signed Impressions: Service Date/Time: Thursday, May 26, 2016 13:51 - CONCLUSION: New thrombosed right posterior tibial vein. Jonathon Peters MD FACR Upper Extremity Ultrasound 05/25/16 0000 Signed Impressions: Service Date/Time: May 08:56 - CONCLUSION: 1. Occlusive thrombus in the right distal cephalic vein. 2. Nonocclusive thrombus in the left mid and distal basilic veins. Sammy Duran MD Head CT 05/16/16 0000 Signed Impressions: Service Date/Time: Monday, May 16, 2016 08:30 - CONCLUSION: Suspected bilateral basal ganglia calcifications are unchanged. No evidence of hemorrhage, edema, mass or mass effect. Stephen Quintanilla MD Abdomen/Pelvis CT 05/16/16 0000 Signed Impressions: Service Date/Time: Monday, May 16, 2016 08:39 - CONCLUSION: There are large areas of hemorrhage including the left retroperitoneum and psoas muscle, within the mesentery and a smaller area in the right psoas muscle. They don't appear to be related to the abdominal aorta or the internal iliac arteries. There is a small focal collection hemorrhage adjacent to the left external iliac artery as it enters the pelvis, but I don't believe that is related to the large amount of hemorrhage seen elsewhere. The areas of hemorrhage are large and multi-focal. Stephen Quintanilla MD CT Angiography 05/06/16 0000 Signed Impressions: Service Date/Time: Saturday, May 07, 2016 00:04 - CONCLUSION: 1. Lobar consolidation bilaterally in the lower lobes. 2. Negative for pulmonary embolism. Michael Colbert MD Objective Remarks GENERAL: 61-year-old AA male, morbidly obese on ventilator via trach, comatose SKIN: Warm and dry. No rash HEAD: Atraumatic. Normocephalic. EYES: Pupils equal and round around 2-3 mm bilaterally and slightly reactive. No scleral icterus. No injection or drainage. ENT: No nasal bleeding or discharge. NECK: JVD difficult to assess due to body habitus. s/p Trach, no bleeding from site CARDIOVASCULAR: Tachycardic nl S1, S2. Without murmur RESPIRATORY: Diminished breath sounds bilaterally due to body habitus. Breath sounds equal bilaterally. GASTROINTESTINAL: Abdomen obese, non-tender, protuberant, distended. no guarding. Peg tube in place MUSCULOSKELETAL: Extremities with 1+ edema NEUROLOGICAL: Patient remains comatose, off sedation since morning of 05/23. Pupils are sluggishly reactive. Bilateral lower extremity mildly withdrawal to pain. +ve Corneal reflex, gag reflex A/P Assessment and Plan Neuro/Psych: Bilateral basal ganglia infarcts, small punctate white matter infarcts on MRI Toxic metabolic encephalopathy Patient remains comatose. Has been off sedation > [address] Felix, following MRI of the brain done 05/16/16 shows small punctate white matter infarcts, bilateral basal ganglia infarcts Repeat MRI brain 05/27 similar Off Seroquel and Haldol due to nonsustained V. tach Head CT 05/08, 05/16: negative acute. EEG 05/12 revealed generalized slowing right greater than left. No epileptiform activity. EEG 05/16: No seizure, severe encephalopathy. CV: Hemorrhagic shock due to left retroperitoneal hemorrhage-shock resolved Severe bradycardia and hypotension 05/17/16 most likely secondary to recurrent bleed Aberrant RCA off LCC Nonsustained V. tach single episode Diastolic heart failure Coronary artery disease Nonischemic cardiomyopathy secondary to hypertensive heart disease Hypertensive emergency On Labetalol 200 every 8, Hydralazine 50mg Q 8hrs, add Cardizem 60mg QID Status post cardiac catheterization by Dr. Moy. No intervention performed. Known coronary artery artery disease to the first and second diagonals the LAD. Aberrant RCA off left coronary cups. Transfer to fo RCA for unroofing -on hold due no improvement in neuro status Aspirin 81 mg on hold due to RP hemorrhage. (Plavix DC d 05/15/[address] Marcano at that time in anticipation of probable unroofing surgery) Lipitor 20 mg by mouth daily held in light of elevated liver function tests 05/30 Short run 8-9 beats V-tach last evening with resolution, no intervention Pulm: Acute hypoxemic respiratory failure-extubated 05/13/16, re intubated 05/16/16 for airway protection Likely underlying STU Right upper lobe mucus plugging Continue with vent support keep sat >92%. check CXR S/P percutaneous tracheostomy. 8.0 Yasmine 06/01 Ventilator bundle, SBT/TP's daily as tolerated Bronchodilator therapy every 4 hours and as needed. Pulm toilet, trach care GI: S/P large left retroperitoneal hemorrhage 05/15 Hypoalbuminemia Elevated LFT's Monitor LFT's, check US liver Continue TF via PEG(Nepro at 50 cc an hour) Continue Protonix for GI prophylaxis Colace/Senokot twice a day for bowel regimen /Renal: Acute kidney failure due to ATN Anuria Chaudhry for accurate I's and O's in a critically ill patient HD started 05/17/16 , Sunday. Renal- Dr. Mcintosh. s/p HD yesterday with removal 3L. Will discuss with renal re permacath placement patient will likely need HD terminologist. Endo: Diabetes mellitus type 2 Hyperglycemia SSI medium scale with accuchecks Q6 Heme: s/p Acute blood loss anemia with shock Large left retroperitoneal hemorrhage Right cephalic superficial thrombus left basilic thrombus/right PT THROMBUS Normocytic anemia Leukocytosis Monitor CBC, Heme is following. On Epogen with HD Hematology on board, Transfused 3 units PRBC stat on 05/16/16 Transfused 3 units PRBC and 2 units FFP Transfuse 1 unit PRBCs 05/19. Therapeutic Lovenox discontinued, aspirin placed on hold 75 mg IV protamine slow infusion (D/W with Dr. mcintosh) on 05/16/16. Was on Lovenox 150 mg subcutaneous twice a day-DCd 05/16/16 ID: Aspiration pneumonia/Enterobacter aerogenes in sputum Leukocytosis --Place on Aztreonam, ID Dr. Mariee . Monitor for signs of infection( Fever, WBC ) follow up on cxs from 06/02 -Replace Chaudhry and send UA, check BC x2 sets, sputum cx and CXR -Patient s/p Cefepime and Flagyl course. Pertinent cultures 05/07 - blood cultures 2 - negative 05/08 - sputum - negative 05/08 - urine - negative 05/08 - blood cultures - negative 05/13 - blood cx negative 05/13 - urine cx negative 05/16 - sputum Enterobacter aerogenes 05/16 - urine neg 131 - blood cultures neg 05/18 - blood cultures- negative 05/19 - bronchoscopy - Yeast 05/27 Sputum Enterobacter 06/02 Sputum: Enterobacter Urine cx: C. Glabrata MSK: History of spinal stenosis/laminectomy/left total knee replacement and left ring finger amputation PT evaluate and treat Access - Peripheral IV;'s Prophylaxis - GI - Protonix - DVT -Heparin 5000 SQ BID, SCD on L leg -06/05 Doppler US LE: No DVT -06/05 Doppler US UE: Right cephalic and left basilic occlusive thrombus- on SQ heparin per Heme. - Doppler US UE: Occlusive thrombus in the right distal cephalic vein. Nonocclusive thrombus in the left mid and distal basilic veins. CCT 30 mins Adryan Augustine MD Jun 06, 2016 08:17
[2016-06-06] MEDS ORDERED: PIPERACIL-TAZO 3.375 GM PREMIX 50 ML IV SCH (09:00)
[2016-06-06] MEDS: DOCUSATE SODIUM 100 MG CAP PO SCH ×2 (09:00→20:16)
[2016-06-06] MEDS: SODIUM CHLOR 0.9% 1000 ML INJ 1,000 ML IV PRN ×2 (09:02→09:03)
[2016-06-06] MEDS: HEPARIN SODIUM - IV 10,000 UNITS/10 ML VIAL PRN (09:03)
[2016-06-06] MEDS: GENTAMICIN SULFATE (DIALYSIS USE ONLY) 20 MG/2 ML VIAL IV PRN (09:03)
[2016-06-06] MEDS: SODIUM CHLORIDE 0.9% FLUSH 5 ML FLUSH IVF PRN (09:03)
--- NOTE | 2016-06-06 09:26 | RADRPT ---
EXAM DATE/TIME: 06/06/2016 08:23 [facility] COMPARISON: CHEST SINGLE AP, June 01, 2016, 14:20. INDICATIONS : Respiratory Failure MEDICAL HISTORY : Myocardial infarction. Congestive heart failure. Hypertension. diabetes SURGICAL HISTORY : Lumbar ENCOUNTER: Subsequent ACUITY: 1 month PAIN SCORE: Non-responsive. LOCATION: Bilateral chest FINDINGS: Tracheostomy is stable in satisfactory position. A left subclavian dialysis catheter is present. Ther e has been interval removal of a left neck central line and a right neck sheath. There is no evidence of pneumothorax or other complication of line placements or changes. Aeration is slightly improved w ith improved lung volumes and decrease in basilar parenchymal opacities. Cardiomediastinal contours a re grossly stable. CONCLUSION: Improving aeration. Satisfactory dialysis catheter positioning. Low Blood MD on June 06, 2016 at 9:23 Board Certified Radiologist. This report was verified electronically.
[2016-06-06] MEDS: ARTIFICIAL TEARS OPTH SOLN 15 ML BTL EACH EYE SCH ×3 (09:28→17:45)
[2016-06-06] MEDS: SODIUM CHLORIDE 0.9% FLUSH 5 ML FLUSH IV FLUSH SCH ×2 (09:28→20:15)
[2016-06-06] MEDS: AZTREONAM INJ 1,000 MG in SODIUM CHLORIDE 0.9% INJ 100 ML IV SCH ×3 (09:29→20:17)
[2016-06-06] MEDS: HEPARIN SODIUM - SQ 10,000 UNITS/ML VIAL SQ SCH ×2 (09:29→20:17)
[2016-06-06 10:44] LABS: BACTERIA, URINE MOD /hpf; BLOOD, URINE LARGE (NEG); GLUCOSE,URINE TRACE mg/dL (NEG); KETONE, URINE NEG (NEG); NITRITE,URINE NEG (NEG); PH, URINE 6.5 (5.0-8.5); TRANSITIONAL EPI CELLS, URINE 1 /hpf
[2016-06-06 10:47] LABS: COMMENT (UR) CATH-CULTURE IND; CULTURE IF INDICATED CATH CULTURE IND; URINE COLOR DARK-YELLOW (YELLW/STRAW)
--- NOTE | 2016-06-06 11:01 | HHI.NPPN ---
Subjective History of Present Illness 61 year old with ARF, CHF, Respiratory failure Additional Remarks Patient s/p Trach and off sedation, remain unresponsive Objective Data Data 06/05/16 06/06/16 19:00 07:00 Intake Total 508 ml 605 ml Output Total 3075 ml 225 ml Balance -2567 ml 380 ml Intake Oral 0 ml 0 ml IV Total 0 ml 0 ml Tube Feeding 508 ml 605 ml Output Urine Total 75 ml 225 ml Hemodialysis 3000 ml # Bowel Movements 1 3 Vital Signs Date Time Temp Pulse Resp B/P Pulse Ox O2 Delivery O2 Flow Rate FiO2 06/06/16 09:55 99 40 06/06/16 08:00 98.9 115 20 167/77 95 06/06/16 08:00 114 06/06/16 07:52 40 06/06/16 07:52 98 40 06/06/16 06:00 82 06/06/16 04:12 95 50 06/06/16 04:00 114 06/06/16 04:00 50 06/06/16 04:00 99.0 114 24 183/86 94 06/06/16 02:00 113 06/06/16 01:30 98 50 06/06/16 00:39 100 50 06/06/16 00:00 113 06/06/16 00:00 99.1 113 22 149/74 100 06/06/16 00:00 50 06/05/16 22:00 110 06/05/16 20:05 100 50 06/05/16 20:00 50 06/05/16 20:00 111 06/05/16 20:00 101.0 90 22 192/86 100 06/05/16 18:00 117 06/05/16 16:33 92 50 06/05/16 16:00 40 06/05/16 16:00 98.2 98 18 115/71 100 06/05/16 16:00 91 06/05/16 14:21 94 40 06/05/16 14:00 117 06/05/16 13:00 99 40 06/05/16 13:00 40 06/05/16 12:00 40 06/05/16 12:00 91 06/05/16 12:00 99.1 91 20 131/72 100 -: 06/06/16 0737 06/06/16 0525 Microbiology 06/06/16 Gram Stain, Received Pending 06/06/16 Sputum Culture, Received Pending 06/06/16 Urine Culture, Received Pending 06/06/16 Aerobic Blood Culture, Received Pending 06/06/16 Anaerobic Blood Culture, Received Pending Physical Exam General Appearance: Obese Neck Neck Exam: Neck Supple Pulmonary Resp Exam: Rhonchi, Decreased Bases, Diminished Breath Sounds, Poor Inspiratory Effort Cardiology CV Exam: Tachycardia Gastrointestinal/Abdomen GI Exam: Soft, Non-Tender, Distended Extremeties Extremities Exam: Moderate Edema, Pitting Edema, Dependent Edema Neurologic Neuro Exam: Unresponsive Assessment/Plan Problem List: (1) Acute renal failure Plan: Patient has oliguric acute renal failure and remains essentially oliguric. Continue with HD BUN and Creatinine remain elevated multiple CVA Anoxic Encephalopathy S/P Trach HD progress noted UF 3 L blood flow better (2) Retroperitoneal bleed Plan: continue to observe (3) 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 Plan: Cardiology following (4) Acute hypoxemic respiratory failure Plan: On ventilator (5) Hypertensive emergency Plan: BP improved (6) Diabetes mellitus Plan: Continue monitor blood glucose (7) CAD (coronary artery disease) Plan: Presented with STEMI, follow with cardiology (8) Subsequent ST elevation (STEMI) myocardial infarction of anterior wall Plan: Planned transfer to [facility] when stable. No intervention performed here. Problem Qualifiers (1) Acute renal failure: Qualified Code: N17.0 - Acute renal failure with tubular necrosis (2) Diabetes mellitus: Qualified Code: E13.8 - Diabetes mellitus of other type with complication, unspecified jail insulin use status (3) CAD (coronary artery disease): Qualified Code: I25.10 - Coronary artery disease, angina presence unspecified, unspecified vessel or lesion type, unspecified whether [place] or transplanted heart Linda Mcintosh MD Jun 06, 2016 11:01
--- NOTE | 2016-06-06 11:26 | HHI.IDPN ---
Subjective Subjective Remarks Mr. Short is a 61-year-old male who was admitted on May 05, 2016. Patient's past medical history significant for hypertensive heart disease, hypertension, type 2 diabetes and spinal stenosis. Patient presented to [facility] on the day of admission with history of acute onset of diaphoresis chest pain and syncope. Patient now has retroperitoneal hematoma, IC bleed. ID following for possible sepsis. Overnight events reviewed. On HD. UO low. Not on pressors. No rash No diarrhea Doing good on CPAP trials but not waking up. Off sedation many days. Patient has frequent BMs but semiformed not diarrhea. On tube feeds. Chaudhry changed 06/05/16 Antibiotics Azactam IV Lines Line sites with no e/o infection Past Medical History reviewed Allergies: Coded Allergies: Penicillin (Verified Allergy, Mild, "I GO CRAZY", 09/01/15) Objective . Vital Signs Date Time Temp Pulse Resp B/P Pulse Ox O2 Delivery O2 Flow Rate FiO2 06/06/16 10:00 82 06/06/16 09:55 99 40 06/06/16 08:00 98.9 115 20 167/77 95 06/06/16 08:00 114 06/06/16 07:52 40 06/06/16 07:52 98 40 06/06/16 06:00 82 06/06/16 04:12 95 50 06/06/16 04:00 114 06/06/16 04:00 50 06/06/16 04:00 99.0 114 24 183/86 94 06/06/16 02:00 113 06/06/16 01:30 98 50 06/06/16 00:39 100 50 06/06/16 00:00 113 06/06/16 00:00 99.1 113 22 149/74 100 06/06/16 00:00 50 06/05/16 22:00 110 06/05/16 20:05 100 50 06/05/16 20:00 50 06/05/16 20:00 111 06/05/16 20:00 101.0 90 22 192/86 100 06/05/16 18:00 117 06/05/16 16:33 92 50 06/05/16 16:00 40 06/05/16 16:00 98.2 98 18 115/71 100 06/05/16 16:00 91 06/05/16 14:21 94 40 06/05/16 14:00 117 06/05/16 13:00 99 40 06/05/16 13:00 40 06/05/16 12:00 40 06/05/16 12:00 91 06/05/16 12:00 99.1 91 20 131/72 100 06/05/16 06/05/16 06/06/16 15:00 23:00 07:00 Intake Total 508 ml 300 ml 305 ml Output Total 3075 ml 175 ml 50 ml Balance -2567 ml 125 ml 255 ml Intake Oral 0 ml 0 ml IV Total 0 ml 0 ml Tube Feeding 508 ml 300 ml 305 ml Output Urine Total 75 ml 175 ml 50 ml Hemodialysis 3000 ml # Bowel Movements 1 3 . Laboratory Tests Test 06/05/16 06/06/16 16:15 07:37 White Blood Count 17.7 TH/MM3 13.6 TH/MM3 Red Blood Count 3.45 MIL/MM3 3.45 MIL/MM3 Hemoglobin 9.9 GM/DL 9.9 GM/DL Hematocrit 31.1 % 30.4 % Mean Corpuscular Volume 90.1 FL 88.2 FL Mean Corpuscular Hemoglobin 28.9 PG 28.8 PG Mean Corpuscular Hemoglobin 32.0 % 32.7 % Concent Red Cell Distribution Width 16.9 % 16.8 % Platelet Count 253 TH/MM3 243 TH/MM3 Mean Platelet Volume 8.6 FL 8.5 FL Neutrophils (%) (Auto) 88.5 % 82.7 % Lymphocytes (%) (Auto) 5.2 % 7.2 % Monocytes (%) (Auto) 5.3 % 8.2 % Eosinophils (%) (Auto) 0.6 % 1.5 % Basophils (%) (Auto) 0.4 % 0.4 % Neutrophils # (Auto) 15.6 TH/MM3 11.3 TH/MM3 Lymphocytes # (Auto) 0.9 TH/MM3 1.0 TH/MM3 Monocytes # (Auto) 0.9 TH/MM3 1.1 TH/MM3 Eosinophils # (Auto) 0.1 TH/MM3 0.2 TH/MM3 Basophils # (Auto) 0.1 TH/MM3 0.1 TH/MM3 CBC Comment DIFF FINAL DIFF FINAL Differential Comment Laboratory Tests Test 06/05/16 06/06/16 16:15 05:25 Sodium Level 141 MEQ/L 140 MEQ/L Potassium Level 5.2 MEQ/L 5.2 MEQ/L Chloride Level 101 MEQ/L 99 MEQ/L Carbon Dioxide Level 22.7 MEQ/L 22.7 MEQ/L Anion Gap 17 MEQ/L 18 MEQ/L Blood Urea Nitrogen 107 MG/DL 117 MG/DL Creatinine 6.51 MG/DL 7.31 MG/DL Estimat Glomerular Filtration 11 ML/MIN 9 ML/MIN Rate Random Glucose 223 MG/DL 199 MG/DL Calcium Level 7.6 MG/DL 7.6 MG/DL Total Bilirubin 0.6 MG/DL 0.6 MG/DL Aspartate Amino Transf 233 U/L 272 U/L (AST/SGOT) Alanine Aminotransferase 187 U/L 209 U/L (ALT/SGPT) Alkaline Phosphatase 198 U/L 217 U/L Total Protein 6.5 GM/DL 6.5 GM/DL Albumin 2.4 GM/DL 2.3 GM/DL Microbiology Date/Time Procedure Status Source Growth 06/06/16 09:38 Gram Stain Received Sputum Endotracheal Pending 06/06/16 09:38 Sputum Culture Received Sputum Endotracheal Pending 06/06/16 09:38 Urine Culture Received Urine Catheterized Urine Pending 06/06/16 10:30 Aerobic Blood Culture Received Blood Peripheral Pending 06/06/16 10:30 Anaerobic Blood Culture Received Blood Peripheral Pending Imaging Last Impressions Chest X-Ray 05/17/16 0600 Signed Impressions: Service Date/Time: Tuesday, May 17, 2016 04:05 - CONCLUSION: No significant change. Minimal basilar atelectasis. Low Johnson MD Head CT 05/16/16 0000 Signed Impressions: Service Date/Time: Monday, May 16, 2016 08:30 - CONCLUSION: Suspected bilateral basal ganglia calcifications are unchanged. No evidence of hemorrhage, edema, mass or mass effect. Stephen Quintanilla MD Brain MRI 05/16/16 0000 Signed Impressions: Service Date/Time: Monday, May 16, 2016 15:46 - CONCLUSION: 1. Small punctate areas of white matter infarction without cortical extension or hemorrhage. There is no significant mass effect. 2. Bilateral basal ganglia infarcts measuring 1 cm Bobby Lamas MD Abdomen/Pelvis CT 05/16/16 0000 Signed Impressions: Service Date/Time: Monday, May 16, 2016 08:39 - CONCLUSION: There are large areas of hemorrhage including the left retroperitoneum and psoas muscle, within the mesentery and a smaller area in the right psoas muscle. They don't appear to be related to the abdominal aorta or the internal iliac arteries. There is a small focal collection hemorrhage adjacent to the left external iliac artery as it enters the pelvis, but I don't believe that is related to the large amount of hemorrhage seen elsewhere. The areas of hemorrhage are large and multi-focal. Stephen Quintanilla MD Upper Extremity Ultrasound 05/10/16 0000 Signed Impressions: Service Date/Time: Tuesday, May 10, 2016 09:44 - CONCLUSION: Occlusive thrombus in the right cephalic vein. Otherwise negative Shahid Sin MD Lower Extremity Ultrasound 05/10/16 0000 Signed Impressions: Service Date/Time: Tuesday, May 10, 2016 09:20 - CONCLUSION: Occlusive thrombus right posterior tibial vein. Otherwise negative with negative left lower extremity Shahid Sin MD CT Angiography 05/06/16 0000 Signed Impressions: Service Date/Time: Saturday, May 07, 2016 00:04 - CONCLUSION: 1. Lobar consolidation bilaterally in the lower lobes. 2. Negative for pulmonary embolism. Michael Colbert MD Physical Exam GENERAL: Obese AAM patient, in no apparent distress. SKIN: No rashes, ecchymoses or lesions. Cool and dry. HEAD: Atraumatic. Normocephalic. No temporal or scalp tenderness. EYES: Pupils equal round and reactive. Extraocular motions intact. No scleral icterus. No injection or drainage. ENT: Large neck, Intubated NECK: Trachea midline. Supple, nontender, no meningeal signs. CARDIOVASCULAR: HS audible. RESPIRATORY: Breath sounds equal bilaterally decreased in the bases. GASTROINTESTINAL: Abdomen soft, non-tender, nondistended. Obese MUSCULOSKELETAL: Extremities with wrinkling of skin noted. Still has edema. NEUROLOGICAL: Off sedation and no response. Psych: could not be assessed IV line sites with no e/o infection. Assessment & Plan Remarks Enterobacter cloacae Pneumonia. Possible Cath associated UTI. Possible Central line associated Blood Stream Infection. Acute metabolic encephalopathy Acute resp failure on BiPAP, component of STU Acute kidney injury: prerenal from hemodynamic changes, chronic HTN related. DM2 uncontrolled: stress as additional factor. CAD non ischemic cardiomyopathy Anemia: acute due to Retroperitoneal bleed. Receiving blood transfusions. Recs: Continue IV Azactam. Blood cultures x 1 from HD line. Follow cultures Follow clinically. d/w . Tracy Mariee MD Jun 06, 2016 11:26
--- NOTE | 2016-06-06 11:35 | PD.ONC.PN ---
Subjective Subjective Remarks Tmax 101F overnight. On mechanical ventilation via trach. receiving dialysis Objective Data Date Time Temp Pulse Resp B/P Pulse Ox O2 Delivery O2 Flow Rate FiO2 06/06/16 10:00 82 06/06/16 09:55 99 40 06/06/16 08:00 98.9 115 20 167/77 95 06/06/16 08:00 114 06/06/16 07:52 40 06/06/16 07:52 98 40 06/06/16 06:00 82 06/06/16 04:12 95 50 06/06/16 04:00 114 06/06/16 04:00 50 06/06/16 04:00 99.0 114 24 183/86 94 06/06/16 02:00 113 06/06/16 01:30 98 50 06/06/16 00:39 100 50 06/06/16 00:00 113 06/06/16 00:00 99.1 113 22 149/74 100 06/06/16 00:00 50 06/05/16 22:00 110 06/05/16 20:05 100 50 06/05/16 20:00 50 06/05/16 20:00 111 06/05/16 20:00 101.0 90 22 192/86 100 06/05/16 18:00 117 06/05/16 16:33 92 50 06/05/16 16:00 40 06/05/16 16:00 98.2 98 18 115/71 100 06/05/16 16:00 91 06/05/16 14:21 94 40 06/05/16 14:00 117 06/05/16 13:00 99 40 06/05/16 13:00 40 06/05/16 12:00 40 06/05/16 12:00 91 06/05/16 12:00 99.1 91 20 131/72 100 06/06/16 06/06/16 06/06/16 07:00 15:00 23:00 Intake Total 305 ml Output Total 50 ml Balance 255 ml Result Diagram: 06/06/16 0737 06/06/16 0525 Laboratory Results Laboratory Tests Test 06/05/16 06/06/16 06/06/16 06/06/16 16:15 05:25 07:37 09:38 White Blood Count 17.7 TH/MM3 13.6 TH/MM3 Red Blood Count 3.45 MIL/MM3 3.45 MIL/MM3 Hemoglobin 9.9 GM/DL 9.9 GM/DL Hematocrit 31.1 % 30.4 % Mean Corpuscular Volume 90.1 FL 88.2 FL Mean Corpuscular Hemoglobin 28.9 PG 28.8 PG Mean Corpuscular Hemoglobin 32.0 % 32.7 % Concent Red Cell Distribution Width 16.9 % 16.8 % Platelet Count 253 TH/MM3 243 TH/MM3 Mean Platelet Volume 8.6 FL 8.5 FL Neutrophils (%) (Auto) 88.5 % 82.7 % Lymphocytes (%) (Auto) 5.2 % 7.2 % Monocytes (%) (Auto) 5.3 % 8.2 % Eosinophils (%) (Auto) 0.6 % 1.5 % Basophils (%) (Auto) 0.4 % 0.4 % Neutrophils # (Auto) 15.6 TH/MM3 11.3 TH/MM3 Lymphocytes # (Auto) 0.9 TH/MM3 1.0 TH/MM3 Monocytes # (Auto) 0.9 TH/MM3 1.1 TH/MM3 Eosinophils # (Auto) 0.1 TH/MM3 0.2 TH/MM3 Basophils # (Auto) 0.1 TH/MM3 0.1 TH/MM3 CBC Comment DIFF FINAL DIFF FINAL Differential Comment Sodium Level 141 MEQ/L 140 MEQ/L Potassium Level 5.2 MEQ/L 5.2 MEQ/L Chloride Level 101 MEQ/L 99 MEQ/L Carbon Dioxide Level 22.7 MEQ/L 22.7 MEQ/L Anion Gap 17 MEQ/L 18 MEQ/L Blood Urea Nitrogen 107 MG/DL 117 MG/DL Creatinine 6.51 MG/DL 7.31 MG/DL Estimat Glomerular Filtration 11 ML/MIN 9 ML/MIN Rate Random Glucose 223 MG/DL 199 MG/DL Calcium Level 7.6 MG/DL 7.6 MG/DL Total Bilirubin 0.6 MG/DL 0.6 MG/DL Aspartate Amino Transf 233 U/L 272 U/L (AST/SGOT) Alanine Aminotransferase 187 U/L 209 U/L (ALT/SGPT) Alkaline Phosphatase 198 U/L 217 U/L Total Protein 6.5 GM/DL 6.5 GM/DL Albumin 2.4 GM/DL 2.3 GM/DL Urine Color DARK-YELLOW Urine Turbidity CLOUDY Urine pH 6.5 Urine Specific [place] 1.020 Urine Protein 300 mg/dL Urine Glucose (UA) TRACE mg/dL Urine Ketones NEG mg/dL Urine Occult Blood LARGE Urine Nitrite NEG Urine Bilirubin NEG Urine Urobilinogen LESS THAN 2.0 MG/DL Urine Leukocyte Esterase LARGE Urine RBC /hpf Urine WBC /hpf Urine WBC Clumps MANY Urine Transitional Epithelial 1 /hpf Cells Urine Bacteria MOD /hpf Urine Yeast (Budding) OCC Microscopic Urinalysis Comment CATH-CULTURE IND Culture Results Microbiology Date/Time Procedure Status Source Growth 06/06/16 09:38 Gram Stain Received Sputum Endotracheal Pending 06/06/16 09:38 Sputum Culture Received Sputum Endotracheal Pending 06/06/16 09:38 Urine Culture Received Urine Catheterized Urine Pending 06/06/16 10:30 Aerobic Blood Culture Received Blood Peripheral Pending 06/06/16 10:30 Anaerobic Blood Culture Received Blood Peripheral Pending Imaging Studies Last 24 hours Impressions Chest X-Ray 06/06/16 0000 Signed Impressions: Service Date/Time: Monday, June 06, 2016 08:23 - CONCLUSION: Improving aeration. Satisfactory dialysis catheter positioning. Low Blood MD Administered Medications Medications (Trade) Dose Ordered Sig/Isabelle Route PRN Reason Start Time Stop Time Status Last Admin Dose Admin IV Flush (NS Flush) 2 ml UNSCH PRN IV FLUSH FLUSH AFTER USING IV ACCESS 05/05/16 17:15 05/24/16 00:59 IV Flush (NS Flush) 2 ml BID IV FLUSH 05/05/16 21:00 06/06/16 09:28 Artificial Tears (Tears Naturale Opth Soln) 1 drop TID EACH EYE 05/05/16 18:00 06/06/16 09:28 Ondansetron HCl (Zofran Inj) 4 mg Q6H PRN IV NAUSEA OR VOMITING 05/05/16 17:15 05/26/16 01:34 Docusate Sodium (Colace) 100 mg BID PO 05/05/16 21:00 06/04/16 08:34 Miscellaneous Information 1 Q361D XX 05/05/16 17:15 05/05/16 17:15 Chlorhexidine Gluconate (Chlorhexidine 2% Cloth) Taper DAILY@04 TOP 05/06/16 04:00 05/02/17 03:59 06/05/16 04:00 Aspirin (Aspirin Chew) 81 mg DAILY CHEW 05/06/16 09:00 Hold 05/15/16 08:30 Atorvastatin Calcium (Lipitor) 20 mg DAILY PO 05/06/16 09:00 Hold 05/15/16 08:32 Sennosides (Senokot) 17.2 mg Q12H PO 05/06/16 18:00 Hold 05/26/16 05:37 Furosemide (Lasix) 20 mg BID@09,18 PO 05/15/16 18:00 Hold 05/15/16 17:22 Chlorhexidine Gluconate 15 ml 15 ml BID@08,20 MT 05/16/16 20:00 06/06/16 08:00 Sodium Chloride 1,000 ml @ 0 mls/hr Q0M PRN IV For Prime & Rinse Back 05/17/16 12:13 06/06/16 09:02 Sodium Chloride 1,000 ml @ 200 mls/hr Q5H PRN IV WITH DIALYSIS 05/17/16 12:13 06/06/16 09:03 Sodium Chloride (NS 1000 ml Inj) 1,000 ml @ 0 mls/hr Q0M PRN IV WITH DIALYSIS 05/17/16 12:13 06/03/16 12:58 IV Flush (NS Flush) 5 ml UNSCH PRN IVF WITH DIALYSIS 05/17/16 12:15 06/06/16 09:03 Heparin Sodium (Porcine) (Heparin Inj) UNSCH PRN .XX WITH DIALYSIS 05/17/16 12:15 06/06/16 09:03 Gentamicin Sulfate (Gentamicin (Dialysis) Inj) 20 mg UNSCH PRN IV WITH DIALYSIS 05/17/16 12:15 06/06/16 09:03 Epoetin Adonay 89933 units 10,000 units UNSCH PRN IV WITH DIALYSIS 05/17/16 12:15 06/05/16 08:13 Midazolam HCl 100 ml @ 0 mls/hr TITRATE IV 05/17/16 21:45 05/23/16 00:27 Fentanyl Citrate (fentaNYL DRIP) 250 ml @ 0 mls/hr TITRATE IV 05/18/16 20:00 05/23/16 00:27 Hydralazine HCl (Apresoline Inj) 10 mg Q1HR PRN IV PUSH SBP>160, DBP>90 05/27/16 18:00 05/29/16 16:18 Labetalol HCl (Trandate Inj) 10 mg Q1HR PRN IV PUSH SBP>160, DBP>90, HR>65 05/27/16 17:30 06/03/16 19:51 Metoclopramide HCl (Reglan Inj) 5 mg Q8HR IV PUSH 05/27/16 22:00 06/05/16 20:30 Labetalol HCl (Trandate) 200 mg Q8HR PO 05/27/16 22:00 06/06/16 05:15 Acetaminophen (Tylenol 650 Mg/ 20 ml Liq) 650 mg Q6H PRN TUBE TEMP > 100.5 05/31/16 13:30 06/05/16 20:30 Glucagon (Glucagon Inj) 1 mg UNSCH PRN OTHER HYPOGLYCEMIA-SEE COMMENTS 06/02/16 07:15 06/02/16 14:00 Insulin Human Regular (NovoLIN R SUPPLEMENTAL SCALE) 1 Q6H SQ 06/02/16 07:30 06/06/16 02:07 Heparin Sodium (Porcine) (Heparin Inj) 5,000 units Q12HR SQ 06/02/16 21:00 06/06/16 09:29 Hydralazine HCl 50 mg 50 mg Q8HR PO 06/03/16 14:00 06/06/16 05:15 Aztreonam/Sodium Chloride (Azactam Inj/NS Inj) 100 ml @ 200 mls/hr Q6H IV 06/06/16 10:00 06/06/16 09:29 Objective Remarks GENERAL: Middle aged male, supine in bed, receiving dialysis. SKIN: Warm and dry. HEAD: Normocephalic. NECK: Tracheostomy site clean. CARDIOVASCULAR: +S1/S2. RESPIRATORY: anterior ye with occasional rhonchi. on mechanical ventilation. GASTROINTESTINAL: Abdomen distended. EXTREMITIES: edema improved but still persistent. +anasarca NEUROLOGICAL: no withdraw from pain. Does not open eyes. Assessment/Plan Problem List: (1) Occlusive thrombus Status: Acute Plan: -- US on 05/25/16 shows occlusive thrombus to R distal cephalic vein -- US on 05/18 and 05/26 shows clot to R posterior tibial vein. Per Dr. Peters there has been propagation of the clot between 05/18 and 05/26. --US on 06/05 shows no LE DVT (2) Retroperitoneal bleed Status: Acute Plan: -- Lg areas of hemorrhage involving the left peritoneum psoas muscle, the mesentery as well as area adjacent to the left external iliac artery found on CT 05/16 -- Daily CBC -- Repeat CT Abdomen once stable (3) Anemia Status: Acute Plan: -- Transfuse to keep Hgb greater than 8. -- Worsening anemia concerning for recurrent bleed to retroperitoneum. Assessment 62 y/o male who presented to the ED with chest pain and was found to be in acute STEMI. Plan 1. repeat U/S showed no DVT. agree with prophylactic dose only and close follow up of H/H 2. monitor CBC Attending Statement The exam, history, and the medical decision-making described in the above note were completed with the assistance of the mid-level provider. I reviewed and agree with the findings presented. I attest that I had a [id number] encounter with the patient on the same day, and personally performed and documented my assessment and findings in the medical record. Problem Qualifiers (1) Anemia: Cindy Perrin Jun 06, 2016 11:35 Carmelo Veras MD Jun 06, 2016 18:56
[2016-06-06] MEDS: DILTIAZEM HCL 60 MG TAB PO SCH ×3 (13:49→20:16)
[2016-06-06] MEDS: RESP: ALBUTEROL 2.5 MG/IPRATROPIUM 0.5 MG NEB (PRN) INH (15:07)
--- NOTE | 2016-06-06 16:10 | RADRPT ---
EXAM DATE/TIME: 06/06/2016 14:18 [place] COMPARISON: No previous studies available for comparison. INDICATIONS : Abnormal labs. MEDICAL HISTORY : Myocardial infarction. Congestive heart failure. Hypertension. Diabetes. Acute kidney failure. Mejia ry artey diease. Spinal stenosis. Acute hypoxemic respiratory failure. SURGICAL HISTORY : Back surgery. Meniscus repair. Left total knee replacement. Left ring finger amputation. Gastrostomy tube placement. ENCOUNTER: Initial ACUITY: 1 day PAIN SCORE: Nonresponsive. LOCATION: Right upper quadrant MEASUREMENTS: LIVER: 18.1 cm length COMMON DUCT: 5 mm RIGHT KIDNEY: 12.0 x 5.5 x 8.1 cm SPLEEN: Not visualized. FINDINGS: LIVER: Mildly echogenic without focal lesion or ductal dilatation. Hepatopedal flow. COMMON DUCT: No intraluminal mass or stone visualized. GALLBLADDER: Contains no stones, demonstrates no wall thickening or pericholecystic fluid. There may be some mini mal sludge present. PANCREAS: The visualized portions are within normal limits. RIGHT KIDNEY: No hydronephrosis, stone or mass. SPLEEN: spleen not seen. CONCLUSION: 1. Liver slightly echogenic which can be seen with fatty infiltration. 2. Spleen not visualized. 3. There may be some minimal gallbladder sludge but no cholelithiasis or wall thickening. Carlitos Aguirre MD on June 06, 2016 at 16:07 Board Certified Radiologist. This report was verified electronically.
[2016-06-07] VITALS (17 sets, daily range): BP systolic 129–172; BP diastolic 61–99; PULSE 69–106; RESP 18–24; TEMP 98.4–99.4; O2SAT 99–100
[2016-06-07] MEDS: INSULIN NovoLIN REGULAR SUPPLEMENTAL SCALE SQ SCH ×4 (01:30→18:26)
[2016-06-07] MEDS: AZTREONAM INJ 1,000 MG in SODIUM CHLORIDE 0.9% INJ 100 ML IV SCH ×4 (03:53→19:46)
[2016-06-07] MEDS: CHLORHEXIDINE GLUCONATE 2 % 1 PACK (2 CLOTHS) TOP SCH (03:54)
[2016-06-07] MEDS: LABETALOL HCL 200 MG TAB PO SCH ×3 (05:43→19:47)
[2016-06-07] MEDS: hydrALAZINE HCL 25 MG TAB PO SCH ×3 (05:43→19:47)
[2016-06-07] MEDS: METOCLOPRAMIDE HCL 10 MG/2 ML VIAL IV PUSH SCH ×3 (05:43→19:48)
[2016-06-07 06:17] LABS: AUTOMATED NEUTROPHIL # 13.2 TH/MM3 (1.8-7.7); BASOPHIL # 0.1 TH/MM3 (0-0.2); BASOPHIL % 0.5 % (0.0-2.0); EOSINOPHIL # 0.1 TH/MM3 (0-0.4); EOSINOPHIL % 0.9 % (0.0-4.0); HEMATOCRIT 30.5 % (39.0-51.0); HEMO FLAGS DIFF FINAL; LYMPH % 6.8 % (9.0-44.0); LYMPHOCYTE # 1.1 TH/MM3 (1.0-4.8); MEAN CELL VOLUME 88.4 FL (80.0-100.0); MEAN CORPUSCULAR HEMOGLOBIN 28.7 PG (27.0-34.0); MEAN CORPUSCULAR HGB CONC 32.5 % (32.0-36.0); NEUT % 83.8 % (16.0-70.0); PLATELET COUNT 239 TH/MM3 (150-450); RED BLOOD COUNT 3.45 MIL/MM3 (4.50-5.90); WHITE BLOOD COUNT 15.8 TH/MM3 (4.0-11.0)
[2016-06-07 07:06] LABS: ALKALINE PHOSPHATASE 188 U/L (45-117); ALT (GPT) 218 U/L (12-78); ANION GAP 14 MEQ/L (5-15); AST (GOT) 224 U/L (15-37); BICARBONATE 26.1 MEQ/L (21.0-32.0); BLOOD UREA NITROGEN 88 MG/DL (7-18); CHLORIDE 99 MEQ/L (98-107); GLOMERULAR FILTRATION RATE 12 ML/MIN (>89); POTASSIUM 3.9 MEQ/L (3.5-5.1); SODIUM (NA) 139 MEQ/L (136-145); TOTAL BILIRUBIN ADULT 0.7 MG/DL (0.2-1.0)
[2016-06-07] MEDS: DILTIAZEM HCL 60 MG TAB PO SCH ×4 (07:56→19:48)
[2016-06-07] MEDS: HEPARIN SODIUM - SQ 10,000 UNITS/ML VIAL SQ SCH ×2 (07:56→19:47)
[2016-06-07] MEDS: CHLORHEXIDINE 0.12% (ORAL KIT) 15 ML CUP MT SCH ×2 (07:57→19:46)
[2016-06-07] MEDS: SODIUM CHLORIDE 0.9% FLUSH 5 ML FLUSH IVF PRN (07:57)
[2016-06-07] MEDS: SODIUM CHLORIDE 0.9% FLUSH 5 ML FLUSH IV FLUSH PRN (07:57)
[2016-06-07] MEDS: DOCUSATE SODIUM 100 MG CAP PO SCH ×2 (07:57→19:46)
[2016-06-07] MEDS: SODIUM CHLORIDE 0.9% FLUSH 5 ML FLUSH IV FLUSH SCH ×2 (07:57→19:48)
[2016-06-07] MEDS: ARTIFICIAL TEARS OPTH SOLN 15 ML BTL EACH EYE SCH ×3 (07:58→17:33)
--- NOTE | 2016-06-07 09:00 | HHI.NPPN ---
Subjective History of Present Illness 61 year old with ARF, CHF, Respiratory failure Additional Remarks Patient s/p Trach and off sedation, remain unresponsive Objective Data Data 06/06/16 06/07/16 19:00 07:00 Intake Total 150 ml 987 ml Output Total 3100 ml 125 ml Balance -2950 ml 862 ml Intake Oral 0 ml 0 ml IV Total 50 ml 462 ml Tube Feeding 100 ml 465 ml Other 60 ml Output Urine Total 100 ml 125 ml Hemodialysis 3000 ml # Bowel Movements 0 1 Vital Signs Date Time Temp Pulse Resp B/P Pulse Ox O2 Delivery O2 Flow Rate FiO2 06/07/16 08:13 100 35 06/07/16 08:13 35 06/07/16 06:00 101 06/07/16 04:09 99 35 06/07/16 04:00 35 06/07/16 04:00 104 06/07/16 04:00 98.8 104 22 172/78 99 06/07/16 02:00 106 06/07/16 01:12 100 40 06/07/16 00:00 99.0 78 22 160/72 100 06/07/16 00:00 78 06/07/16 00:00 40 06/06/16 22:15 99 40 06/06/16 22:00 75 06/06/16 20:00 100.8 110 22 150/71 100 06/06/16 20:00 40 06/06/16 20:00 110 06/06/16 19:30 100 40 06/06/16 18:00 82 06/06/16 16:41 98 40 06/06/16 16:00 98.9 81 20 153/72 95 06/06/16 16:00 114 06/06/16 15:04 99 40 06/06/16 14:00 82 06/06/16 13:17 93 40 06/06/16 12:00 114 06/06/16 10:00 82 06/06/16 09:55 99 40 -: 06/07/16 0440 06/07/16 0440 Microbiology 06/06/16 Gram Stain - Final, Resulted 06/06/16 Sputum Culture, Resulted Pending 06/06/16 Urine Culture, Received Pending 06/06/16 Aerobic Blood Culture, Received Pending 06/06/16 Anaerobic Blood Culture, Received Pending Physical Exam General Appearance: Obese Neck Neck Exam: Neck Supple Pulmonary Resp Exam: Rhonchi, Decreased Bases, Diminished Breath Sounds, Poor Inspiratory Effort Cardiology CV Exam: Tachycardia Gastrointestinal/Abdomen GI Exam: Soft, Non-Tender, Distended Extremeties Extremities Exam: Moderate Edema, Pitting Edema, Dependent Edema Neurologic Neuro Exam: Unresponsive Assessment/Plan Problem List: (1) Acute renal failure Plan: Patient has oliguric acute renal failure and remains essentially oliguric. 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 Plan: Cardiology following (4) Acute hypoxemic respiratory failure Plan: On ventilator (5) Hypertensive emergency Plan: BP improved (6) Diabetes mellitus Plan: Continue monitor blood glucose (7) CAD (coronary artery disease) Plan: Presented with STEMI, follow with cardiology (8) Subsequent ST elevation (STEMI) myocardial infarction of anterior wall Plan: Planned transfer to when stable. No intervention performed here. 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
--- NOTE | 2016-06-07 09:00 | HHI.CCPN ---
Subjective Remarks/Hospital Course 61-year-old AA male. Date of admission 05/05/2016. Date of consultation 2016. Past medical history includes hypertensive heart disease, hypertension, diabetes mellitus type 2 and spinal stenosis. He presented to [place] [facility] today with history of acute onset of diaphoresis, chest pain and syncope. Her documentation, Chest pain was 7 out of 10 without radiation. Later in the hospital physician, patient did have ST elevation anterior septal leads. I he had a cardiac catheterization in 2009 which revealed moderate coronary disease which documented 50-60% stenosis in the LAD diagonals 1 and 2. Recommended medical management at that time. Dr. Marcano was notified and proceed to the cardiac catheter lab. Patient sees heparin and one aspirin prior to cardiac catheterization. During heart catheterization,, patient became hypertensive, tachypneic, hypoxic and agitated including abdominal pain with nausea and vomiting. Patient was intubated by Dr. Simon and dispensed transferred to room 505a. Currently hemodynamic stable on a propofol drip. 05/06: Patient required additional sedation overnight. Was moving all 4 extremity spontaneously and strongly. Potassium is replaced overnight along with magnesium. This afternoon approximate 4 PM, patient went into a sinus bradycardia in the 40s. RN cannot locate pulse and possibly went into a PEA arrest. Patient received CPR for approximately 2 minutes. ROSC return immediately. Received 1 mg of epinephrine IV. Blood pressure was 240 systolic. Saturations were above 90% the entire time. Dr. Marcano was made aware. No new recommendations at this time. Electrolytes currently pending. Patient is currently hemodynamic stable and an arterial line/left radial has been placed 05/07: no improvement in delirium or mental status. spiking low grade fevers. 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 CT surgery consulted and declined to operate here: he will need referral once stabilized. fio2 requirements still high. CT chest also with evidence of bibasilar consolidation which may be aspiration pneumonitis vs. pneumonia now that we are 48h out from initial presentation and now spiking fevers. 05/08: delirium persists. continues to spike fevers. jolly cultured yesterday without results yet. holding sedation today. 05/09: delirium slightly improved. waking up on SAT, weakly following commands. cultures still NGTD. hypoxia slightly improved. 05/10: delirium improving. weakly following commands still. cultures still NGTD. fevers persist, although fever curve appears to be improving. hypoxia continues to improve. still remains very critically ill. 05/11: Tmax 99.9. Currently 99.1. Tolerating tube feeding. One bowel movement. Continues to have difficulty weaning ventilator. 05/12: Currently afebrile. Tolerating tube feeding. Positive BM. Increased FiO2 from 45-60%. +1 L. Arousable on sedation vacation and weakly follows commands. 05/13: Remains intubated, sedated. FiO2 now reduced to 45% (was 55% today am). Start weaning trials after starting Precedex. To control BP May use Cardene, given anomalous RCA 05/14: Extubated yesterday, remained on BiPAP overnight. Intermittently agitated. Following commands to me today, while on BiPAP. Remains on Cardene infusion for uncontrolled hypertension. Urine output 4.7 L in 24 hours 05/15: On 3 L nasal cannula. Fever trending down, breathing more comfortably. Able to communicate. Discussed with Dr. Marcano. Dr. Pendleton will be available tomorrow, will probably need transfer to [facility] for RCA unroofing 05/16: Acutely hypotensive overnight with tachycardia. MAP was 55 with greater than 130s. Received 3.5 L of normal saline bolus with improvement in blood pressure and heart rate. Lethargic on BiPAP. ABG pending, HB dropped from 10.9 to 7.8. No obvious source of bleeding. STAT 2U PRBC. STAT CT head and CT abd pelvis. R/O ICH or RP bleed. Patient received only 5mg Nicci at 2100 yesterday, no other sedation. Last dose of Lovenox was at 211, held now 05/17: Developed Hemorrhagic shock from large retroperitoneal hemorrhage night to 05/15/16. Stabilized after 3 units of PRBC and protamine. Hemoglobin 8.7 today. Remain encephalopathy and unresponsive yesterday. MRI 05/16/16 shows small punctate white matter infarcts, bilateral basal ganglia infarcts. Urology consult pending. Antiplatelet drugs on hold. Now with anuria from ATN secondary to shock. Nephrology consult pending 05/18: Developed sudden onset bradycardia in 40s, with acute hypotension yesterday evening around 5 PM. ACLS protocol initiated (did not arrest or lose pulse). Received multiple epinephrine, bicarbonate calcium and fluid boluses. Patient was placed on dopamine 20 mics per KG per minute, Levophed 20 mics per KG per minute, epinephrine 2.5 mics per minute and eventually stabilized with systolic blood pressure reading 120s. Hemoglobin on ABG was 7 and emergently transfused 3 units PRBC and 2 units FFP. Lab hemoglobin came back at 6.8. Patient also was profoundly acidemic with pH of 7.16. Patient received total 3 A of bicarbonate and bicarbonate infusion was started, minute ventilation was also increased. 2: MAXIMUM TEMPERATURE 100.3. Currently 99.5. No bowel movement. Tube feeds were restarted. FiO2 50%. PEEP at 8. 05/20: MAXIMUM TEMPERATURE 100.9. Positive BM. Tube feeds were restarted today. PT plateau. FiO2 down to 85%. Semiemergent bronchoscopy yesterday for right upper lobe airway obstruction. Resolved 05/21: MAXIMUM TEMPERATURE 100.7. Currently 99.6. Somewhat tachycardic. 2 bowel movements overnight. Tolerating tube feeds at 30 cc an hour. Had episode of emesis overnight. 05/22: Remains sedated, orally intubated on mechanical ventilation. 05/23: Remains sedated, orally intubated on mechanical ventilation. Dialyzed yesterday. 05/24: Remains sedated/encephalopathic, orally intubated on mechanical ventilation. Tolerating tube feeds. Awaiting dialysis 05/25: Remains encephalopathic, orally intubated on mechanical ventilation. Off sedation for 2 days now. PEEP decreased to to +7 10 No acute events overnight. For HD today. Afebrile. On PRVC/AC 20, TV 550, PEEP: 6, IT: 1.2 and FIO2 35%. On no sedation. Tolerating tube feeds. Subjective 05/27: Tmax 99.8. Currently 99.1. FiO2 down to 35%. Tolerating tube feeding. Positive BM. MRI brain reveals bilateral lacunar infarcts. Will likely need trach 05/28: Afebrile. The patient continues on CPAP trials 28/09 FiO2 of 35%, maintaining O2 sat at 97%. 05/29: The patient continues on CPAP trials. The patient underwent hemodialysis today. The patient is noted to be a medium dose sliding scale insulin with persistent hyperglycemia will increase to high-dose insulin sliding scale. Per hematology the patient was placed on heparin infusion initially, then discontinued.. 05/30 Tmax 100.1. S/P initiation of therapeutic anticoagulation ,serial hemoglobin stable, continue to monitor every 12 hours. Patient continues to fail CPAP trials, plan for tracheostomy, Discussed with patient spouse, she desires a trach and PEG, at this time. 05/31 Tmax 100.1. Maintaining CPAP trials occasionally 3-4 hours. Discussed with family risk and benefits of tracheostomy. Discussed with family MRI results, EEG results. Family requests continue aggressive support. Plan for percutaneous tracheostomy . GI consulted for PEG placement. 06/01 Percutaneous tracheostomy performed today. Plan for patient to go to IR for new Vas-Cath placement per nephrology. 06/02 Patient s/p trach yesterday. For PEG tube placement and HD today today. On no sedation. T: 100.2 06/03 Patient s/p PEG tube placement and HD yesterday with removal 5L. Afebrile. Remains off sedation. 06/04 no acute events overnight. Tolerating C Pap. Will place on T piece 2-4 hours. No change in neuro exam 06/05 No acute events overnight. Tolerated CPAP/TP's trials for 4 hrs yesterday. Afebrile. For HD today 06/06 Patient is on ventilator via trach spiked fever with T: 101.0 last night. s /p HD yesterday with removal 3L. 06/07 Patient s/p HD yesterday with removal 3L. T: 100.8 last night. On ventilator via trach remains encephalopathic. Objective Vital Signs Date Time Temp Pulse Resp B/P Pulse Ox O2 Delivery O2 Flow Rate FiO2 06/07/16 08:13 100 35 06/07/16 06:00 101 06/07/16 04:00 98.8 22 172/78 Intake and Output 06/06/16 06/06/16 06/07/16 08:00 16:00 00:00 Intake Total 305 ml 150 ml 482 ml Output Total 50 ml 3100 ml 75 ml Balance 255 ml -2950 ml 407 ml Result Diagram: 06/07/16 0440 06/07/16 0440 Other Results Laboratory Tests Test 06/06/16 06/07/16 09:38 04:40 Urine Color DARK-YELLOW Urine Turbidity CLOUDY Urine pH 6.5 Urine Specific [place] 1.020 Urine Protein 300 mg/dL Urine Glucose (UA) TRACE mg/dL Urine Ketones NEG mg/dL Urine Occult Blood LARGE Urine Nitrite NEG Urine Bilirubin NEG Urine Urobilinogen LESS THAN 2.0 MG/DL Urine Leukocyte Esterase LARGE Urine RBC /hpf Urine WBC /hpf Urine WBC Clumps MANY Urine Transitional Epithelial 1 /hpf Cells Urine Bacteria MOD /hpf Urine Yeast (Budding) OCC Microscopic Urinalysis Comment CATH-CULTURE IND White Blood Count 15.8 TH/MM3 Red Blood Count 3.45 MIL/MM3 Hemoglobin 9.9 GM/DL Hematocrit 30.5 % Mean Corpuscular Volume 88.4 FL Mean Corpuscular Hemoglobin 28.7 PG Mean Corpuscular Hemoglobin 32.5 % Concent Red Cell Distribution Width 17.0 % Platelet Count 239 TH/MM3 Mean Platelet Volume 8.8 FL Neutrophils (%) (Auto) 83.8 % Lymphocytes (%) (Auto) 6.8 % Monocytes (%) (Auto) 8.0 % Eosinophils (%) (Auto) 0.9 % Basophils (%) (Auto) 0.5 % Neutrophils # (Auto) 13.2 TH/MM3 Lymphocytes # (Auto) 1.1 TH/MM3 Monocytes # (Auto) 1.3 TH/MM3 Eosinophils # (Auto) 0.1 TH/MM3 Basophils # (Auto) 0.1 TH/MM3 CBC Comment DIFF FINAL Differential Comment Sodium Level 139 MEQ/L Potassium Level 3.9 MEQ/L Chloride Level 99 MEQ/L Carbon Dioxide Level 26.1 MEQ/L Anion Gap 14 MEQ/L Blood Urea Nitrogen 88 MG/DL Creatinine 5.73 MG/DL Estimat Glomerular Filtration 12 ML/MIN Rate Random Glucose 213 MG/DL Calcium Level 7.9 MG/DL Total Bilirubin 0.7 MG/DL Aspartate Amino Transf 224 U/L (AST/SGOT) Alanine Aminotransferase 218 U/L (ALT/SGPT) Alkaline Phosphatase 188 U/L Total Protein 7.1 GM/DL Albumin 2.4 GM/DL Imaging Last Impressions Liver Ultrasound 06/06/16 0000 Signed Impressions: Service Date/Time: Monday, June 06, 2016 14:18 - CONCLUSION: 1. Liver slightly echogenic which can be seen with fatty infiltration. 2. Spleen not visualized. 3. There may be some minimal gallbladder sludge but no cholelithiasis or wall thickening. Carlitos Aguirre MD Chest X-Ray 06/06/16 0000 Signed Impressions: Service Date/Time: Monday, June 06, 2016 08:23 - CONCLUSION: Improving aeration. Satisfactory dialysis catheter positioning. Low Blood MD Upper Extremity Ultrasound 06/05/16 0000 Signed Impressions: Service Date/Time: Sunday, June 05, 2016 11:01 - CONCLUSION: Occlusive thrombus right cephalic vein and left basilic vein Shahid Sin MD Lower Extremity Ultrasound 06/05/16 Signed Impressions: Service Date/Time: Sunday, June 05, 2016 16:05 - CONCLUSION: Normal examination. No evidence of DVT Shahid Sin MD Gastrostomy Tube Placement 06/02/16 Signed Impressions: Service Date/Time: Thursday, June 02, 2016 12:31 - CONCLUSION: Uncomplicated gastrostomy tube placement as above. Isidro Flor MD Catheter Placement X-Ray 06/02/16 Signed Impressions: Service Date/Time: Thursday, June 02, 2016 12:31 - CONCLUSION: 1. Uncomplicated line placement as above. 2. Patient currently has a modified left subclavian PermCath catheter that is being utilized as a temporary access. Isidro Flor MD Brain MRI 05/27/16 0000 Signed Impressions: Service Date/Time: Friday, May 27, 2016 12:17 - CONCLUSION: Multifocal bilateral T2 signal abnormalities in restricted diffusion concerning for bilateral lacunar infarcts. Carlitos Aguirre MD Head CT 05/16/16 Signed Impressions: Service Date/Time: Monday, May 16, 2016 08:30 - CONCLUSION: Suspected bilateral basal ganglia calcifications are unchanged. No evidence of hemorrhage, edema, mass or mass effect. Stephen Quintanilla MD Abdomen/Pelvis CT 05/16/16 0000 Signed Impressions: Service Date/Time: Monday, May 16, 2016 08:39 - CONCLUSION: There are large areas of hemorrhage including the left retroperitoneum and psoas muscle, within the mesentery and a smaller area in the right psoas muscle. They don't appear to be related to the abdominal aorta or the internal iliac arteries. There is a small focal collection hemorrhage adjacent to the left external iliac artery as it enters the pelvis, but I don't believe that is related to the large amount of hemorrhage seen elsewhere. The areas of hemorrhage are large and multi-focal. Stephen Quintanilla MD CT Angiography 05/06/16 0000 Signed Impressions: Service Date/Time: Saturday, May 07, 2016 00:04 - CONCLUSION: 1. Lobar consolidation bilaterally in the lower lobes. 2. Negative for pulmonary embolism. Michael Colbert MD Objective Remarks GENERAL: 61-year-old AA male, morbidly obese on ventilator via trach, comatose SKIN: Warm and dry. No rash HEAD: Atraumatic. Normocephalic. EYES: Pupils equal and round around 2-3 mm bilaterally and slightly reactive. No scleral icterus. No injection or drainage. ENT: No nasal bleeding or discharge. NECK: JVD difficult to assess due to body habitus. s/p Trach, no bleeding from site CARDIOVASCULAR: Tachycardic nl S1, S2. Without murmur RESPIRATORY: Diminished breath sounds bilaterally due to body habitus. Breath sounds equal bilaterally. GASTROINTESTINAL: Abdomen obese, non-tender, protuberant, distended. no guarding. Peg tube in place MUSCULOSKELETAL: Extremities with 1+ edema NEUROLOGICAL: Patient remains comatose, off sedation since morning of 05/23. Pupils are sluggishly reactive. Bilateral lower extremity mildly withdrawal to pain. +ve Corneal reflex, gag reflex A/P Assessment and Plan Neuro/Psych: Bilateral basal ganglia infarcts, small punctate white matter infarcts on MRI Toxic metabolic encephalopathy Patient remains comatose. Has been off sedation > [address] Felix, following MRI of the brain done 05/16/16 shows small punctate white matter infarcts, bilateral basal ganglia infarcts Repeat MRI brain 05/27 similar Off Seroquel and Haldol due to nonsustained V. tach Head CT 05/08, 05/16: negative acute. EEG 05/12 revealed generalized slowing right greater than left. No epileptiform activity. EEG 05/16: No seizure, severe encephalopathy. CV: Hemorrhagic shock due to left retroperitoneal hemorrhage-shock resolved Severe bradycardia and hypotension 05/17/16 most likely secondary to recurrent bleed Aberrant RCA off LCC Nonsustained V. tach single episode Diastolic heart failure Coronary artery disease Nonischemic cardiomyopathy secondary to hypertensive heart disease Hypertensive emergency On Labetalol 200 every 8, Hydralazine 50mg Q 8hrs, Cardizem 60mg QID Status post cardiac catheterization by Dr. Moy. No intervention performed. Known coronary artery artery disease to the first and second diagonals the LAD. Aberrant RCA off left coronary cups. Transfer to fo RCA for unroofing -on hold due no improvement in neuro status Aspirin 81 mg on hold due to RP hemorrhage. (Plavix DC d 05/15/[address] Marcano at that time in anticipation of probable unroofing surgery) Lipitor 20 mg by mouth daily held in light of elevated liver function tests 05/30 Short run 8-9 beats V-tach last evening with resolution, no intervention Pulm: Acute hypoxemic respiratory failure-extubated 05/13/16, re intubated 05/16/16 for airway protection Likely underlying STU Right upper lobe mucus plugging Continue with vent support keep sat >92%. check CXR S/P percutaneous tracheostomy. 8.0 Shiley 06/01 Ventilator bundle, SBT/TP's daily as tolerated Bronchodilator therapy every 4 hours and as needed. Pulm toilet, trach care CXR 06/06: Improved aeration of lungs. GI: S/P large left retroperitoneal hemorrhage 05/15 Hypoalbuminemia Elevated LFT's Monitor LFT's, US liver: Liver slightly echogenic which can be seen with fatty infiltration. There may be some minimal gallbladder sludge but no cholelithiasis or wall thickening. Continue TF via PEG(Nepro at 50 cc an hour) Continue Protonix for GI prophylaxis Colace/Senokot twice a day for bowel regimen /Renal: Acute kidney failure due to ATN Anuria Chaudhry for accurate I's and O's in a critically ill patient HD started 05/17/16 , Sunday. Renal- Dr. Mcintosh. s/p HD yesterday with removal 3L. Will discuss with renal re permacath placement as patient will likely need HD prison. Endo: Diabetes mellitus type 2 Hyperglycemia SSI medium scale with accuchecks Q6 Heme: s/p Acute blood loss anemia with shock Large left retroperitoneal hemorrhage Right cephalic superficial thrombus left basilic thrombus/right PT THROMBUS Normocytic anemia Leukocytosis Monitor CBC, Heme is following. On Epogen with HD Hematology on board, Transfused 3 units PRBC stat on 05/16/16 Transfused 3 units PRBC and 2 units FFP Transfuse 1 unit PRBCs 05/19. Therapeutic Lovenox discontinued, aspirin placed on hold 75 mg IV protamine slow infusion (D/W with Dr. mcintosh) on 05/16/16. Was on Lovenox 150 mg subcutaneous twice a day-DCd 05/16/16 ID: Aspiration pneumonia/Enterobacter aerogenes in sputum Leukocytosis --On Aztreonam, ID Dr. Mariee . Monitor for signs of infection( Fever, WBC) -Pancultured 06/06 ( Blood, sputum, urine) -Patient s/p Cefepime and Flagyl course. Pertinent cultures 05/07 - blood cultures 2 - negative 05/08 - sputum - negative 05/08 - urine - negative 05/08 - blood cultures - negative 05/13 - blood cx negative 05/13 - urine cx negative 05/16 - sputum Enterobacter aerogenes 05/16 - urine neg 131 - blood cultures neg 05/18 - blood cultures- negative 05/19 - bronchoscopy - Yeast 05/27 Sputum Enterobacter 06/02 Sputum: Enterobacter Urine cx: C. Glabrata MSK: History of spinal stenosis/laminectomy/left total knee replacement and left ring finger amputation PT evaluate and treat Access - Peripheral IV;'s Prophylaxis - GI - Protonix - DVT -Heparin 5000 SQ BID, SCD on L leg -06/05 Doppler US LE: No DVT -06/05 Doppler US UE: Right cephalic and left basilic occlusive thrombus- on SQ heparin per Heme. -05/25 Doppler US UE: Occlusive thrombus in the right distal cephalic vein. Nonocclusive thrombus in the left mid and distal basilic veins. Level 3 Adryan Augustine MD Jun 07, 2016 09:00
--- NOTE | 2016-06-07 14:24 | PD.ONC.PN ---
Subjective Subjective Remarks remains on vent no bleeding Leg swelling stable Objective Data Date Time Temp Pulse Resp B/P Pulse Ox O2 Delivery O2 Flow Rate FiO2 06/07/16 12:00 101 06/07/16 12:00 35 06/07/16 12:00 99.4 101 24 155/72 99 06/07/16 11:46 99 35 06/07/16 10:00 99 06/07/16 08:13 100 35 06/07/16 08:13 35 06/07/16 08:00 99.3 103 24 147/99 100 06/07/16 08:00 103 06/07/16 08:00 35 06/07/16 06:00 101 06/07/16 04:09 99 35 06/07/16 04:00 35 06/07/16 04:00 104 06/07/16 04:00 98.8 104 22 172/78 99 06/07/16 02:00 106 06/07/16 01:12 100 40 06/07/16 00:00 99.0 78 22 160/72 100 06/07/16 00:00 78 06/07/16 00:00 40 06/06/16 22:15 99 40 06/06/16 22:00 75 06/06/16 20:00 100.8 110 22 150/71 100 06/06/16 20:00 40 06/06/16 20:00 110 06/06/16 19:30 100 40 06/06/16 18:00 82 06/06/16 16:41 98 40 06/06/16 16:00 98.9 81 20 153/72 95 06/06/16 16:00 114 06/06/16 15:04 99 40 06/07/16 06/07/16 06/07/16 07:00 15:00 23:00 Intake Total 505 ml Output Total 50 ml Balance 455 ml Result Diagram: 06/07/1643906/07/16439 Laboratory Results Laboratory Tests Test 06/07/16 04:40 White Blood Count 15.8 TH/MM3 Red Blood Count 3.45 MIL/MM3 Hemoglobin 9.9 GM/DL Hematocrit 30.5 % Mean Corpuscular Volume 88.4 FL Mean Corpuscular Hemoglobin 28.7 PG Mean Corpuscular Hemoglobin 32.5 % Concent Red Cell Distribution Width 17.0 % Platelet Count 239 TH/MM3 Mean Platelet Volume 8.8 FL Neutrophils (%) (Auto) 83.8 % Lymphocytes (%) (Auto) 6.8 % Monocytes (%) (Auto) 8.0 % Eosinophils (%) (Auto) 0.9 % Basophils (%) (Auto) 0.5 % Neutrophils # (Auto) 13.2 TH/MM3 Lymphocytes # (Auto) 1.1 TH/MM3 Monocytes # (Auto) 1.3 TH/MM3 Eosinophils # (Auto) 0.1 TH/MM3 Basophils # (Auto) 0.1 TH/MM3 CBC Comment DIFF FINAL Differential Comment Sodium Level 139 MEQ/L Potassium Level 3.9 MEQ/L Chloride Level 99 MEQ/L Carbon Dioxide Level 26.1 MEQ/L Anion Gap 14 MEQ/L Blood Urea Nitrogen 88 MG/DL Creatinine 5.73 MG/DL Estimat Glomerular Filtration 12 ML/MIN Rate Random Glucose 213 MG/DL Calcium Level 7.9 MG/DL Total Bilirubin 0.7 MG/DL Aspartate Amino Transf 224 U/L (AST/SGOT) Alanine Aminotransferase 218 U/L (ALT/SGPT) Alkaline Phosphatase 188 U/L Total Protein 7.1 GM/DL Albumin 2.4 GM/DL Culture Results Microbiology Date/Time Procedure Status Source Growth 06/06/16 09:38 Gram Stain - Final Resulted Sputum Endotracheal 06/06/16 09:38 Sputum Culture - Preliminary Resulted Gram Negative Oswaldo 06/06/16 09:38 Urine Culture - Preliminary Resulted Urine Catheterized Urine IMMATURE GROWTH - REINCUBATE 06/06/16 10:30 Aerobic Blood Culture - Preliminary Resulted Blood Peripheral NO GROWTH IN 1 DAY 06/06/16 10:30 Anaerobic Blood Culture - Preliminary Resulted Blood Peripheral NO GROWTH IN 1 DAY Administered Medications Medications (Trade) Dose Ordered Sig/Isabelle Route PRN Reason Start Time Stop Time Status Last Admin Dose Admin IV Flush (NS Flush) 2 ml UNSCH PRN IV FLUSH FLUSH AFTER USING IV ACCESS 05/05/16 17:15 06/07/16 07:57 IV Flush (NS Flush) 2 ml BID IV FLUSH 05/05/16 21:00 06/07/16 07:57 Artificial Tears (Tears Naturale Opth Soln) 1 drop TID EACH EYE 05/05/16 18:00 06/07/16 12:39 Ondansetron HCl (Zofran Inj) 4 mg Q6H PRN IV NAUSEA OR VOMITING 05/05/16 17:15 05/26/16 01:34 Docusate Sodium (Colace) 100 mg BID PO 05/05/16 21:00 06/07/16 07:57 Miscellaneous Information 1 Q361D XX 05/05/16 17:15 05/05/16 17:15 Chlorhexidine Gluconate (Chlorhexidine 2% Cloth) Taper DAILY@04 TOP 05/06/16 04:00 05/02/17 03:59 06/05/16 04:00 Aspirin (Aspirin Chew) 81 mg DAILY CHEW 05/06/16 09:00 Hold 05/15/16 08:30 Atorvastatin Calcium (Lipitor) 20 mg DAILY PO 05/06/16 09:00 Hold 05/15/16 08:32 Sennosides (Senokot) 17.2 mg Q12H PO 05/06/16 18:00 Hold 05/26/16 05:37 Furosemide (Lasix) 20 mg BID@09,18 PO 05/15/16 18:00 Hold 05/15/16 17:22 Chlorhexidine Gluconate 15 ml 15 ml BID@08,20 MT 05/16/16 20:00 06/07/16 07:57 Sodium Chloride 1,000 ml @ 0 mls/hr Q0M PRN IV For Prime & Rinse Back 05/17/16 12:13 06/06/16 09:02 Sodium Chloride 1,000 ml @ 200 mls/hr Q5H PRN IV WITH DIALYSIS 05/17/16 12:13 06/06/16 09:03 Sodium Chloride (NS 1000 ml Inj) 1,000 ml @ 0 mls/hr Q0M PRN IV WITH DIALYSIS 05/17/16 12:13 06/03/16 12:58 IV Flush (NS Flush) 5 ml UNSCH PRN IVF WITH DIALYSIS 05/17/16 12:15 06/06/16 09:03 Heparin Sodium (Porcine) (Heparin Inj) UNSCH PRN .XX WITH DIALYSIS 05/17/16 12:15 06/06/16 09:03 Gentamicin Sulfate (Gentamicin (Dialysis) Inj) 20 mg UNSCH PRN IV WITH DIALYSIS 05/17/16 12:15 06/06/16 09:03 Epoetin Adonay 30062 units 10,000 units UNSCH PRN IV WITH DIALYSIS 05/17/16 12:15 06/05/16 08:13 Midazolam HCl 100 ml @ 0 mls/hr TITRATE IV 05/17/16 21:45 05/23/16 00:27 Fentanyl Citrate (fentaNYL DRIP) 250 ml @ 0 mls/hr TITRATE IV 05/18/16 20:00 05/23/16 00:27 Hydralazine HCl (Apresoline Inj) 10 mg Q1HR PRN IV PUSH SBP>160, DBP>90 05/27/16 18:00 05/29/16 16:18 Labetalol HCl (Trandate Inj) 10 mg Q1HR PRN IV PUSH SBP>160, DBP>90, HR>65 05/27/16 17:30 06/03/16 19:51 Metoclopramide HCl (Reglan Inj) 5 mg Q8HR IV PUSH 05/27/16 22:00 06/07/16 12:39 Labetalol HCl (Trandate) 200 mg Q8HR PO 05/27/16 22:00 06/07/16 12:40 Acetaminophen (Tylenol 650 Mg/ 20 ml Liq) 650 mg Q6H PRN TUBE TEMP > 100.5 05/31/16 13:30 06/05/16 20:30 Glucagon (Glucagon Inj) 1 mg UNSCH PRN OTHER HYPOGLYCEMIA-SEE COMMENTS 06/02/16 07:15 06/02/16 14:00 Insulin Human Regular (NovoLIN R SUPPLEMENTAL SCALE) 1 Q6H SQ 06/02/16 07:30 06/07/16 12:40 Heparin Sodium (Porcine) (Heparin Inj) 5,000 units Q12HR SQ 06/02/16 21:00 06/07/16 07:56 IV Flush (NS Flush) UNSCH PRN IVF SEE PROTOCOL 06/02/16 14:30 06/07/16 07:57 Hydralazine HCl (Apresoline) 50 mg Q8HR PO 06/03/16 14:00 06/07/16 12:39 Diltiazem HCl 60 mg 60 mg QID PO 06/06/16 13:00 06/07/16 12:40 Aztreonam/Sodium Chloride (Azactam Inj/NS Inj) 100 ml @ 200 mls/hr Q6H IV 06/06/16 10:00 06/07/16 07:56 Objective Remarks GENERAL: critically ill NECK: Supple, trachea midline. No JVD or lymphadenopathy. LYMPHATIC: No adenopathy. CARDIOVASCULAR: Regular rate and rhythm without murmurs. RESPIRATORY: ctab GASTROINTESTINAL: Abdomen soft, bs decreased EXTREMITIES: No cyanosis, edematous. R>L MUSCULOSKELETAL: Adequate muscle tone. Assessment/Plan Problem List: (1) Occlusive thrombus Status: Acute Plan: -- US on 05/25/16 shows occlusive thrombus to R distal cephalic vein -- US on 05/18 and 05/26 shows clot to R posterior tibial vein. Per Dr. Peters there has been propagation of the clot between 05/18 and 05/26. --US on 06/05 shows no LE DVT (2) Retroperitoneal bleed Status: Acute Plan: -- Lg areas of hemorrhage involving the left peritoneum psoas muscle, the mesentery as well as area adjacent to the left external iliac artery found on CT 05/16 -- Daily CBC -- Repeat CT Abdomen once stable (3) Anemia Status: Acute Plan: -- Transfuse to keep Hgb greater than 8. -- Worsening anemia concerning for recurrent bleed to retroperitoneum. Assessment 62 y/o male who presented to the ED with chest pain and was found to be in acute STEMI. Plan - Continue prophylactic heparin - Monitor Hb. - repeat U/S LE or UE if swelling worsens Problem Qualifiers (1) Anemia: Carmelo Veras MD Jun 07, 2016 14:24
--- NOTE | 2016-06-07 18:06 | HHI.IDPN ---
Subjective Subjective Remarks Mr. Short is a 61-year-old male who was admitted on May 05, 2016. Patient's past medical history significant for hypertensive heart disease, hypertension, type 2 diabetes and spinal stenosis. Patient presented to [facility] on the day of admission with history of acute onset of diaphoresis chest pain and syncope. Patient now has retroperitoneal hematoma, IC bleed. ID following for possible sepsis. Delayed entry patient seen ~ 10 am. Overnight events reviewed. Occ low grade fever 100.4 F On HD. UO low. Not on pressors. No rash No diarrhea Not waking up. Off sedation many days. Yawns and mouthing noted but no other meaningful response. Antibiotics Azactam IV Lines Line sites with no e/o infection Past Medical History reviewed Allergies: Coded Allergies: Penicillin (Verified Allergy, Mild, "I GO CRAZY", 09/01/15) Objective . Vital Signs Date Time Temp Pulse Resp B/P Pulse Ox O2 Delivery O2 Flow Rate FiO2 06/07/16 16:22 100 35 06/07/16 16:00 35 06/07/16 16:00 69 06/07/16 16:00 98.9 69 18 129/61 99 06/07/16 12:00 101 06/07/16 12:00 35 06/07/16 12:00 99.4 101 24 155/72 99 06/07/16 11:46 99 35 06/07/16 10:00 99 06/07/16 08:13 100 35 06/07/16 08:13 35 06/07/16 08:00 99.3 103 24 147/99 100 06/07/16 08:00 103 06/07/16 08:00 35 06/07/16 06:00 101 06/07/16 04:09 99 35 06/07/16 04:00 35 06/07/16 04:00 104 06/07/16 04:00 98.8 104 22 172/78 99 06/07/16 02:00 106 06/07/16 01:12 100 40 06/07/16 00:00 99.0 78 22 160/72 100 06/07/16 00:00 78 06/07/16 00:00 40 06/06/16 22:15 99 40 06/06/16 22:00 75 06/06/16 20:00 100.8 110 22 150/71 100 06/06/16 20:00 40 06/06/16 20:00 110 06/06/16 19:30 100 40 06/06/16 06/06/16 06/07/16 15:00 23:00 07:00 Intake Total 150 ml 482 ml 505 ml Output Total 3100 ml 75 ml 50 ml Balance -2950 ml 407 ml 455 ml Intake Oral 0 ml 0 ml 0 ml IV Total 50 ml 332 ml 130 ml Tube Feeding 100 ml 150 ml 315 ml Other 60 ml Output Urine Total 100 ml 75 ml 50 ml Hemodialysis 3000 ml # Bowel Movements 0 1 0 . Laboratory Tests Test 06/06/16 06/07/16 07:37 04:40 White Blood Count 13.6 TH/MM3 15.8 TH/MM3 Red Blood Count 3.45 MIL/MM3 3.45 MIL/MM3 Hemoglobin 9.9 GM/DL 9.9 GM/DL Hematocrit 30.4 % 30.5 % Mean Corpuscular Volume 88.2 FL 88.4 FL Mean Corpuscular Hemoglobin 28.8 PG 28.7 PG Mean Corpuscular Hemoglobin 32.7 % 32.5 % Concent Red Cell Distribution Width 16.8 % 17.0 % Platelet Count 243 TH/MM3 239 TH/MM3 Mean Platelet Volume 8.5 FL 8.8 FL Neutrophils (%) (Auto) 82.7 % 83.8 % Lymphocytes (%) (Auto) 7.2 % 6.8 % Monocytes (%) (Auto) 8.2 % 8.0 % Eosinophils (%) (Auto) 1.5 % 0.9 % Basophils (%) (Auto) 0.4 % 0.5 % Neutrophils # (Auto) 11.3 TH/MM3 13.2 TH/MM3 Lymphocytes # (Auto) 1.0 TH/MM3 1.1 TH/MM3 Monocytes # (Auto) 1.1 TH/MM3 1.3 TH/MM3 Eosinophils # (Auto) 0.2 TH/MM3 0.1 TH/MM3 Basophils # (Auto) 0.1 TH/MM3 0.1 TH/MM3 CBC Comment DIFF FINAL DIFF FINAL Differential Comment Laboratory Tests Test 06/06/16 06/07/16 05:25 04:40 Sodium Level 140 MEQ/L 139 MEQ/L Potassium Level 5.2 MEQ/L 3.9 MEQ/L Chloride Level 99 MEQ/L 99 MEQ/L Carbon Dioxide Level 22.7 MEQ/L 26.1 MEQ/L Anion Gap 18 MEQ/L 14 MEQ/L Blood Urea Nitrogen 117 MG/DL 88 MG/DL Creatinine 7.31 MG/DL 5.73 MG/DL Estimat Glomerular Filtration 9 ML/MIN 12 ML/MIN Rate Random Glucose 199 MG/DL 213 MG/DL Calcium Level 7.6 MG/DL 7.9 MG/DL Total Bilirubin 0.6 MG/DL 0.7 MG/DL Aspartate Amino Transf 272 U/L 224 U/L (AST/SGOT) Alanine Aminotransferase 209 U/L 218 U/L (ALT/SGPT) Alkaline Phosphatase 217 U/L 188 U/L Total Protein 6.5 GM/DL 7.1 GM/DL Albumin 2.3 GM/DL 2.4 GM/DL Microbiology Date/Time Procedure Status Source Growth 06/06/16 09:38 Gram Stain - Final Resulted Sputum Endotracheal 06/06/16 09:38 Sputum Culture - Preliminary Resulted Gram Negative Oswaldo 06/06/16 09:38 Urine Culture - Preliminary Resulted Urine Catheterized Urine IMMATURE GROWTH - REINCUBATE 06/06/16 10:30 Aerobic Blood Culture - Preliminary Resulted Blood Peripheral NO GROWTH IN 1 DAY 06/06/16 10:30 Anaerobic Blood Culture - Preliminary Resulted Blood Peripheral NO GROWTH IN 1 DAY Imaging Last Impressions Chest X-Ray 05/17/16 0600 Signed Impressions: Service Date/Time: Tuesday, May 17, 2016 04:05 - CONCLUSION: No significant change. Minimal basilar atelectasis. Low Johnson MD Head CT 05/16/16 0000 Signed Impressions: Service Date/Time: Monday, May 16, 2016 08:30 - CONCLUSION: Suspected bilateral basal ganglia calcifications are unchanged. No evidence of hemorrhage, edema, mass or mass effect. Stephen Quintanilla MD Brain MRI 05/16/16 0000 Signed Impressions: Service Date/Time: Monday, May 16, 2016 15:46 - CONCLUSION: 1. Small punctate areas of white matter infarction without cortical extension or hemorrhage. There is no significant mass effect. 2. Bilateral basal ganglia infarcts measuring 1 cm Bobby Lamas MD Abdomen/Pelvis CT 05/16/16 0000 Signed Impressions: Service Date/Time: Monday, May 16, 2016 08:39 - CONCLUSION: There are large areas of hemorrhage including the left retroperitoneum and psoas muscle, within the mesentery and a smaller area in the right psoas muscle. They don't appear to be related to the abdominal aorta or the internal iliac arteries. There is a small focal collection hemorrhage adjacent to the left external iliac artery as it enters the pelvis, but I don't believe that is related to the large amount of hemorrhage seen elsewhere. The areas of hemorrhage are large and multi-focal. Stephen Quintanilla MD Upper Extremity Ultrasound 05/10/16 0000 Signed Impressions: Service Date/Time: Tuesday, May 10, 2016 09:44 - CONCLUSION: Occlusive thrombus in the right cephalic vein. Otherwise negative Shahid Sin MD Lower Extremity Ultrasound 05/10/16 0000 Signed Impressions: Service Date/Time: Tuesday, May 10, 2016 09:20 - CONCLUSION: Occlusive thrombus right posterior tibial vein. Otherwise negative with negative left lower extremity Shahid Sin MD CT Angiography 05/06/16 0000 Signed Impressions: Service Date/Time: Saturday, May 07, 2016 00:04 - CONCLUSION: 1. Lobar consolidation bilaterally in the lower lobes. 2. Negative for pulmonary embolism. Michael Colbert MD Physical Exam GENERAL: Obese AAM patient, in no apparent distress. SKIN: No rashes, ecchymoses or lesions. Cool and dry. HEAD: Atraumatic. Normocephalic. No temporal or scalp tenderness. EYES: Pupils equal round and reactive. Extraocular motions intact. No scleral icterus. No injection or drainage. ENT: Large neck NECK: Trachea midline. Supple, nontender, no meningeal signs. CARDIOVASCULAR: HS audible. RESPIRATORY: Breath sounds equal bilaterally decreased in the bases. GASTROINTESTINAL: Abdomen soft, non-tender, nondistended. Obese MUSCULOSKELETAL: Extremities with wrinkling of skin noted. Still has edema. NEUROLOGICAL: Off sedation and no response. Psych: could not be assessed IV line sites with no e/o infection. Assessment & Plan Remarks Enterobacter cloacae Pneumonia. Possible Cath associated UTI. Possible Central line associated Blood Stream Infection. Acute metabolic encephalopathy Acute resp failure on BiPAP, component of STU Acute kidney injury: prerenal from hemodynamic changes, chronic HTN related. DM2 uncontrolled: stress as additional factor. CAD non ischemic cardiomyopathy Anemia: acute due to Retroperitoneal bleed. Receiving blood transfusions. Recs: Continue IV Azactam. Blood cultures x 1 from HD line negative so far. Follow cultures Follow clinically. d/w Tracy Anderson MD Jun 07, 2016 18:06
[2016-06-08] VITALS (18 sets, daily range): BP systolic 108–169; BP diastolic 53–80; PULSE 74–87; RESP 22–29; TEMP 98.3–99.2; O2SAT 97–100
[2016-06-08] MEDS: INSULIN NovoLIN REGULAR SUPPLEMENTAL SCALE SQ SCH ×4 (03:01→21:01)
[2016-06-08] MEDS: CHLORHEXIDINE GLUCONATE 2 % 1 PACK (2 CLOTHS) TOP SCH (03:02)
[2016-06-08] MEDS: AZTREONAM INJ 1,000 MG in SODIUM CHLORIDE 0.9% INJ 100 ML IV SCH ×4 (03:08→21:02)
[2016-06-08] MEDS: METOCLOPRAMIDE HCL 10 MG/2 ML VIAL IV PUSH SCH ×3 (05:25→21:02)
[2016-06-08] MEDS: hydrALAZINE HCL 25 MG TAB PO SCH ×3 (05:26→21:03)
[2016-06-08] MEDS: LABETALOL HCL 200 MG TAB PO SCH ×3 (05:26→21:03)
[2016-06-08 07:18] LABS: AUTOMATED NEUTROPHIL # 9.8 TH/MM3 (1.8-7.7); BASOPHIL % 0.3 % (0.0-2.0); EOSINOPHIL # 0.1 TH/MM3 (0-0.4); EOSINOPHIL % 1.2 % (0.0-4.0); HEMATOCRIT 31.4 % (39.0-51.0); HEMO FLAGS DIFF FINAL; LYMPH % 8.1 % (9.0-44.0); MEAN CELL VOLUME 89.2 FL (80.0-100.0); MEAN CORPUSCULAR HEMOGLOBIN 28.4 PG (27.0-34.0); MEAN CORPUSCULAR HGB CONC 31.9 % (32.0-36.0); MONO % 8.4 % (0.0-8.0); PLATELET COUNT 218 TH/MM3 (150-450); RED BLOOD COUNT 3.52 MIL/MM3 (4.50-5.90); RED CELL DISTRIBUTION WIDTH 16.9 % (11.6-17.2)
[2016-06-08] MEDS: DILTIAZEM HCL 60 MG TAB PO SCH ×4 (07:34→21:03)
[2016-06-08] MEDS: DOCUSATE SODIUM 100 MG CAP PO SCH ×2 (07:34→21:02)
[2016-06-08] MEDS: CHLORHEXIDINE 0.12% (ORAL KIT) 15 ML CUP MT SCH ×2 (07:34→21:04)
[2016-06-08] MEDS: SODIUM CHLORIDE 0.9% FLUSH 5 ML FLUSH IVF PRN (07:34)
[2016-06-08] MEDS: SODIUM CHLORIDE 0.9% FLUSH 5 ML FLUSH IV FLUSH SCH ×2 (07:34→21:02)
[2016-06-08] MEDS: SODIUM CHLORIDE 0.9% FLUSH 5 ML FLUSH IV FLUSH PRN (07:34)
[2016-06-08] MEDS: HEPARIN SODIUM - SQ 10,000 UNITS/ML VIAL SQ SCH ×2 (07:34→21:03)
[2016-06-08] MEDS: ARTIFICIAL TEARS OPTH SOLN 15 ML BTL EACH EYE SCH ×3 (07:34→17:04)
[2016-06-08 08:06] LABS: ALKALINE PHOSPHATASE 214 U/L (45-117); ALT (GPT) 192 U/L (12-78); ANION GAP 18 MEQ/L (5-15); AST (GOT) 135 U/L (15-37); BLOOD UREA NITROGEN 108 MG/DL (7-18); CHLORIDE 95 MEQ/L (98-107); GLOMERULAR FILTRATION RATE 10 ML/MIN (>89); SODIUM (NA) 137 MEQ/L (136-145); TOTAL BILIRUBIN ADULT 0.7 MG/DL (0.2-1.0)
--- NOTE | 2016-06-08 10:01 | HHI.NPPN ---
Subjective History of Present Illness 61 year old with ARF, CHF, Respiratory failure Additional Remarks Patient s/p Trach and off sedation, remain unresponsive Objective Data Data 06/07/16 06/08/16 19:00 07:00 Intake Total 690 ml 1094 ml Output Total 25 ml 125 ml Balance 665 ml 969 ml Intake Oral 0 ml IV Total 155 ml 362 ml Tube Feeding 475 ml 612 ml Other 60 ml 120 ml Output Urine Total 25 ml 125 ml # Bowel Movements 0 1 Vital Signs Date Time Temp Pulse Resp B/P Pulse Ox O2 Delivery O2 Flow Rate FiO2 06/08/16 08:27 35 06/08/16 08:02 100 35 06/08/16 08:00 79 06/08/16 08:00 99.1 79 22 154/70 100 06/08/16 08:00 35 06/08/16 06:00 77 06/08/16 04:22 99 35 06/08/16 04:00 98.3 77 22 169/80 100 06/08/16 04:00 35 06/08/16 04:00 77 06/08/16 02:00 78 06/08/16 01:10 98 35 06/08/16 00:00 35 06/08/16 00:00 79 06/08/16 00:00 98.8 79 22 148/75 100 06/07/16 22:00 71 06/07/16 20:06 100 35 06/07/16 20:00 71 06/07/16 20:00 35 06/07/16 20:00 98.4 71 22 129/69 100 06/07/16 18:00 71 06/07/16 16:22 100 35 06/07/16 16:00 35 06/07/16 16:00 69 06/07/16 16:00 98.9 69 18 129/61 99 06/07/16 12:00 101 06/07/16 12:00 35 06/07/16 12:00 99.4 101 24 155/72 99 06/07/16 11:46 99 35 -: 06/08/16 0511 06/08/16 0511 Physical Exam General Appearance: Obese Neck Neck Exam: Neck Supple Pulmonary Resp Exam: Rhonchi, Decreased Bases, Diminished Breath Sounds, Poor Inspiratory Effort Cardiology CV Exam: Tachycardia Gastrointestinal/Abdomen GI Exam: Soft, Non-Tender, Distended Extremeties Extremities Exam: Moderate Edema, Pitting Edema, Dependent Edema Neurologic Neuro Exam: Unresponsive Assessment/Plan Problem List: (1) Acute renal failure Plan: Patient has oliguric acute renal failure and remains essentially oliguric. 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 Plan: Cardiology following (4) Acute hypoxemic respiratory failure Plan: On ventilator (5) Hypertensive emergency Plan: BP improved (6) Diabetes mellitus Plan: Continue monitor blood glucose (7) CAD (coronary artery disease) Plan: Presented with STEMI, follow with cardiology (8) Subsequent ST elevation (STEMI) myocardial infarction of anterior wall Plan: Planned transfer to [facility] when stable. No intervention performed here. 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
[2016-06-08] MEDS: SODIUM CHLOR 0.9% 1000 ML INJ 1,000 ML IV PRN (12:21)
[2016-06-08] MEDS: GENTAMICIN SULFATE (DIALYSIS USE ONLY) 20 MG/2 ML VIAL IV PRN (12:22)
[2016-06-08] MEDS: EPOETIN ALFA 10,000 UNITS/ML VIAL IV PRN (12:22)
[2016-06-08] MEDS: HEPARIN SODIUM - IV 10,000 UNITS/10 ML VIAL PRN (12:22)
--- NOTE | 2016-06-08 12:32 | HHI.CCPN ---
Subjective Remarks/Hospital Course 61-year-old AA male. Date of admission 05/05/2016. Date of consultation 2016. Past medical history includes hypertensive heart disease, hypertension, diabetes mellitus type 2 and spinal stenosis. He presented to [facility] today with history of acute onset of diaphoresis, chest pain and syncope. Her documentation, Chest pain was 7 out of 10 without radiation. Later in the hospital physician, patient did have ST elevation anterior septal leads. I he had a cardiac catheterization in 2009 which revealed moderate coronary disease which documented 50-60% stenosis in the LAD diagonals 1 and 2. Recommended medical management at that time. Dr. Marcano was notified and proceed to the cardiac catheter lab. Patient sees heparin and one aspirin prior to cardiac catheterization. During heart catheterization,, patient became hypertensive, tachypneic, hypoxic and agitated including abdominal pain with nausea and vomiting. Patient was intubated by Dr. Simon and dispensed transferred to room 505a. Currently hemodynamic stable on a propofol drip. 05/06: Patient required additional sedation overnight. Was moving all 4 extremity spontaneously and strongly. Potassium is replaced overnight along with magnesium. This afternoon approximate 4 PM, patient went into a sinus bradycardia in the 40s. RN cannot locate pulse and possibly went into a PEA arrest. Patient received CPR for approximately 2 minutes. ROSC return immediately. Received 1 mg of epinephrine IV. Blood pressure was 240 systolic. Saturations were above 90% the entire time. Dr. Marcano was made aware. No new recommendations at this time. Electrolytes currently pending. Patient is currently hemodynamic stable and an arterial line/left radial has been placed 05/07: no improvement in delirium or mental status. spiking low grade fevers. 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 CT surgery consulted and declined to operate here: he will need referral once stabilized. fio2 requirements still high. CT chest also with evidence of bibasilar consolidation which may be aspiration pneumonitis vs. pneumonia now that we are 48h out from initial presentation and now spiking fevers. 05/08: delirium persists. continues to spike fevers. jolly cultured yesterday without results yet. holding sedation today. 05/09: delirium slightly improved. waking up on SAT, weakly following commands. cultures still NGTD. hypoxia slightly improved. 05/10: delirium improving. weakly following commands still. cultures still NGTD. fevers persist, although fever curve appears to be improving. hypoxia continues to improve. still remains very critically ill. 05/11: Tmax 99.9. Currently 99.1. Tolerating tube feeding. One bowel movement. Continues to have difficulty weaning ventilator. 05/12: Currently afebrile. Tolerating tube feeding. Positive BM. Increased FiO2 from 45-60%. +1 L. Arousable on sedation vacation and weakly follows commands. 05/13: Remains intubated, sedated. FiO2 now reduced to 45% (was 55% today am). Start weaning trials after starting Precedex. To control BP May use Cardene, given anomalous RCA 05/14: Extubated yesterday, remained on BiPAP overnight. Intermittently agitated. Following commands to me today, while on BiPAP. Remains on Cardene infusion for uncontrolled hypertension. Urine output 4.7 L in 24 hours 05/15: On 3 L nasal cannula. Fever trending down, breathing more comfortably. Able to communicate. Discussed with Dr. Marcano. Dr. Pendleton will be available tomorrow, will probably need transfer to [facility] for RCA unroofing 05/16: Acutely hypotensive overnight with tachycardia. MAP was 55 with greater than 130s. Received 3.5 L of normal saline bolus with improvement in blood pressure and heart rate. Lethargic on BiPAP. ABG pending, HB dropped from 10.9 to 7.8. No obvious source of bleeding. STAT 2U PRBC. STAT CT head and CT abd pelvis. R/O ICH or RP bleed. Patient received only 5mg Nicci at 2100 yesterday, no other sedation. Last dose of Lovenox was at 211, held now 05/17: Developed Hemorrhagic shock from large retroperitoneal hemorrhage night to 05/15/16. Stabilized after 3 units of PRBC and protamine. Hemoglobin 8.7 today. Remain encephalopathy and unresponsive yesterday. MRI 05/16/16 shows small punctate white matter infarcts, bilateral basal ganglia infarcts. Urology consult pending. Antiplatelet drugs on hold. Now with anuria from ATN secondary to shock. Nephrology consult pending 05/18: Developed sudden onset bradycardia in 40s, with acute hypotension yesterday evening around 5 PM. ACLS protocol initiated (did not arrest or lose pulse). Received multiple epinephrine, bicarbonate calcium and fluid boluses. Patient was placed on dopamine 20 mics per KG per minute, Levophed 20 mics per KG per minute, epinephrine 2.5 mics per minute and eventually stabilized with systolic blood pressure reading 120s. Hemoglobin on ABG was 7 and emergently transfused 3 units PRBC and 2 units FFP. Lab hemoglobin came back at 6.8. Patient also was profoundly acidemic with pH of 7.16. Patient received total 3 A of bicarbonate and bicarbonate infusion was started, minute ventilation was also increased. 2: MAXIMUM TEMPERATURE 100.3. Currently 99.5. No bowel movement. Tube feeds were restarted. FiO2 50%. PEEP at 8. 05/20: MAXIMUM TEMPERATURE 100.9. Positive BM. Tube feeds were restarted today. PT plateau. FiO2 down to 85%. Semiemergent bronchoscopy yesterday for right upper lobe airway obstruction. Resolved 05/21: MAXIMUM TEMPERATURE 100.7. Currently 99.6. Somewhat tachycardic. 2 bowel movements overnight. Tolerating tube feeds at 30 cc an hour. Had episode of emesis overnight. 05/22: Remains sedated, orally intubated on mechanical ventilation. 05/23: Remains sedated, orally intubated on mechanical ventilation. Dialyzed yesterday. 05/24: Remains sedated/encephalopathic, orally intubated on mechanical ventilation. Tolerating tube feeds. Awaiting dialysis 05/25: Remains encephalopathic, orally intubated on mechanical ventilation. Off sedation for 2 days now. PEEP decreased to to +7 10 No acute events overnight. For HD today. Afebrile. On PRVC/AC 20, TV 550, PEEP: 6, IT: 1.2 and FIO2 35%. On no sedation. Tolerating tube feeds. Subjective 05/27: Tmax 99.8. Currently 99.1. FiO2 down to 35%. Tolerating tube feeding. Positive BM. MRI brain reveals bilateral lacunar infarcts. Will likely need trach 05/28: Afebrile. The patient continues on CPAP trials 28/09 FiO2 of 35%, maintaining O2 sat at 97%. 05/29: The patient continues on CPAP trials. The patient underwent hemodialysis today. The patient is noted to be a medium dose sliding scale insulin with persistent hyperglycemia will increase to high-dose insulin sliding scale. Per hematology the patient was placed on heparin infusion initially, then discontinued.. 05/30 Tmax 100.1. S/P initiation of therapeutic anticoagulation ,serial hemoglobin stable, continue to monitor every 12 hours. Patient continues to fail CPAP trials, plan for tracheostomy, Discussed with patient spouse, she desires a trach and PEG, at this time. 05/31 Tmax 100.1. Maintaining CPAP trials occasionally 3-4 hours. Discussed with family risk and benefits of tracheostomy. Discussed with family MRI results, EEG results. Family requests continue aggressive support. Plan for percutaneous tracheostomy . GI consulted for PEG placement. 06/01 Percutaneous tracheostomy performed today. Plan for patient to go to IR for new Vas-Cath placement per nephrology. 06/02 Patient s/p trach yesterday. For PEG tube placement and HD today today. On no sedation. T: 100.2 06/03 Patient s/p PEG tube placement and HD yesterday with removal 5L. Afebrile. Remains off sedation. 06/04 no acute events overnight. Tolerating C Pap. Will place on T piece 2-4 hours. No change in neuro exam 06/05 No acute events overnight. Tolerated CPAP/TP's trials for 4 hrs yesterday. Afebrile. For HD today 06/06 Patient is on ventilator via trach spiked fever with T: 101.0 last night. s /p HD yesterday with removal 3L. 06/07 Patient s/p HD yesterday with removal 3L. T: 100.8 last night. On ventilator via trach remains encephalopathic. 06/08: Currently getting hemodialysis, no fever white count trending down. Slight improvement in neuro exam. Partial eye-opening to central pain. Withdraws bilateral upper extremity slightly to pain Objective Vital Signs Date Time Temp Pulse Resp B/P Pulse Ox O2 Delivery O2 Flow Rate FiO2 06/08/16 10:42 100 T-piece 40 06/08/16 10:00 75 06/08/16 08:00 99.1 22 154/70 Intake and Output 06/07/16 06/07/16 06/08/16 08:00 16:00 00:00 Intake Total 505 ml 690 ml 600 ml Output Total 50 ml 25 ml 75 ml Balance 455 ml 665 ml 525 ml Result Diagram: 06/08/16 0511 06/08/16 0511 Other Results Microbiology Date/Time Procedure Status Source Growth 06/06/16 09:38 Gram Stain - Final Complete Sputum Endotracheal 06/06/16 09:38 Sputum Culture - Final Complete Enterobacter Aerogenes Imaging Last Impressions Liver Ultrasound 06/06/16 0000 Signed Impressions: Service Date/Time: Monday, June 06, 2016 14:18 - CONCLUSION: 1. Liver slightly echogenic which can be seen with fatty infiltration. 2. Spleen not visualized. 3. There may be some minimal gallbladder sludge but no cholelithiasis or wall thickening. Carlitos Aguirre MD Chest X-Ray 06/06/16 0000 Signed Impressions: Service Date/Time: Monday, June 06, 2016 08:23 - CONCLUSION: Improving aeration. Satisfactory dialysis catheter positioning. Low Blood MD Upper Extremity Ultrasound 06/05/16 0000 Signed Impressions: Service Date/Time: Sunday, June 05, 2016 11:01 - CONCLUSION: Occlusive thrombus right cephalic vein and left basilic vein Shahid Sin MD Lower Extremity Ultrasound 06/05/16 0000 Signed Impressions: Service Date/Time: Sunday, June 05, 2016 16:05 - CONCLUSION: Normal examination. No evidence of DVT Shahid Sin MD Gastrostomy Tube Placement 06/02/16 0000 Signed Impressions: Service Date/Time: Thursday, June 02, 2016 12:31 - CONCLUSION: Uncomplicated gastrostomy tube placement as above. Isidro Flor MD Catheter Placement X-Ray 06/02/16 0000 Signed Impressions: Service Date/Time: Thursday, June 02, 2016 12:31 - CONCLUSION: 1. Uncomplicated line placement as above. 2. Patient currently has a modified left subclavian PermCath catheter that is being utilized as a temporary access. Isidro Flor MD Brain MRI 05/27/16 0000 Signed Impressions: Service Date/Time: Friday, May 27, 2016 12:17 - CONCLUSION: Multifocal bilateral T2 signal abnormalities in restricted diffusion concerning for bilateral lacunar infarcts. Carlitos Aguirre MD Head CT 05/16/16 0000 Signed Impressions: Service Date/Time: Monday, May 16, 2016 08:30 - CONCLUSION: Suspected bilateral basal ganglia calcifications are unchanged. No evidence of hemorrhage, edema, mass or mass effect. Stephen Quintanilla MD Abdomen/Pelvis CT 05/16/16 0000 Signed Impressions: Service Date/Time: Monday, May 16, 2016 08:39 - CONCLUSION: There are large areas of hemorrhage including the left retroperitoneum and psoas muscle, within the mesentery and a smaller area in the right psoas muscle. They don't appear to be related to the abdominal aorta or the internal iliac arteries. There is a small focal collection hemorrhage adjacent to the left external iliac artery as it enters the pelvis, but I don't believe that is related to the large amount of hemorrhage seen elsewhere. The areas of hemorrhage are large and multi-focal. Stephen Quintanilla MD CT Angiography 05/06/16 0000 Signed Impressions: Service Date/Time: Saturday, May 07, 2016 00:04 - CONCLUSION: 1. Lobar consolidation bilaterally in the lower lobes. 2. Negative for pulmonary embolism. Michael Colbert MD Objective Remarks GENERAL: 61-year-old AA male, morbidly obese on ventilator via trach SKIN: Warm and dry. No rash HEAD: Atraumatic. Normocephalic. EYES: Pupils equal and round around 2-3 mm bilaterally and slightly reactive. No scleral icterus. No injection or drainage. ENT: No nasal bleeding or discharge. NECK: JVD difficult to assess due to body habitus. s/p Trach, no bleeding from site CARDIOVASCULAR: Tachycardic nl S1, S2. Without murmur RESPIRATORY: Diminished breath sounds bilaterally due to body habitus. Breath sounds equal bilaterally. GASTROINTESTINAL: Abdomen obese, non-tender, protuberant, distended. no guarding. Peg tube in place MUSCULOSKELETAL: Extremities with 1+ edema NEUROLOGICAL: Patient remains unresponsive, off sedation since morning of 05/23. Pupils are sluggishly reactive. Bilateral upper extremity mildly withdrawal to pain. +ve Corneal reflex, gag reflex. Partial eye opening to sternal rub A/P Assessment and Plan Neuro/Psych: Bilateral basal ganglia infarcts, small punctate white matter infarcts on MRI Metabolic encephalopathy Patient remains unresponsive. Has been off sedation > [address] Felix. MRI of the brain done 05/16/16 shows small punctate white matter infarcts, bilateral basal ganglia infarcts Repeat MRI brain 05/27 similar Off Seroquel and Haldol due to nonsustained V. tach Head CT 05/08, 05/16: negative acute. EEG 05/12 revealed generalized slowing right greater than left. No epileptiform activity. EEG 05/16: No seizure, severe encephalopathy. Check EEG today repeat, rule out subclinical seizures CV: Hemorrhagic shock due to left retroperitoneal hemorrhage-shock resolved Severe bradycardia and hypotension 05/17/16 most likely secondary to recurrent bleed Aberrant RCA off LCC Nonsustained V. tach single episode Diastolic heart failure Coronary artery disease Nonischemic cardiomyopathy secondary to hypertensive heart disease Hypertensive emergency On Labetalol 200 every 8, Hydralazine 50mg Q 8hrs, Cardizem 60mg QID Status post cardiac catheterization by Dr. Moy. No intervention performed. Known coronary artery artery disease to the first and second diagonals the LAD. Aberrant RCA off left coronary cups. Transfer to fo RCA for unroofing -on hold due to lack of improvement in neuro status Aspirin 81 mg on hold due to RP hemorrhage. (Plavix DC d 05/15/[address] Marcano at that time in anticipation of probable unroofing surgery) Lipitor 20 mg by mouth daily held in light of elevated liver function tests 05/30 Short run 8-9 beats V-tach last evening with resolution, no intervention Pulm: Acute hypoxemic respiratory failure-extubated 05/13/16, re intubated 05/16/16 for airway protection Likely underlying STU Right upper lobe mucus plugging Continue with vent support keep sat >92%. check CXR S/P percutaneous tracheostomy. 8.0 Shiley 06/01 Ventilator bundle, SBT/TP's daily as tolerated. TP up to 4 hours today Bronchodilator therapy every 4 hours and as needed. Pulm toilet, trach care CXR 06/06: Improved aeration of lungs. GI: S/P large left retroperitoneal hemorrhage 05/15 Hypoalbuminemia Elevated LFT's Monitor LFT's, US liver: Liver slightly echogenic which can be seen with fatty infiltration. There may be some minimal gallbladder sludge but no cholelithiasis or wall thickening. Continue TF via PEG(Nepro at 50 cc an hour) Continue Protonix for GI prophylaxis Colace/Senokot twice a day for bowel regimen /Renal: Acute kidney failure due to ATN Anuria Chaudhry for accurate I's and O's in a critically ill patient HD started 05/17/16 , Sunday. Renal- Dr. Mcintosh. s/p HD 06/06 with removal 3L. Will need permacath placement as patient will likely need HD halfway. Endo: Diabetes mellitus type 2 Hyperglycemia SSI medium scale with accuchecks Q6 Heme: s/p Acute blood loss anemia with shock Large left retroperitoneal hemorrhage Right cephalic superficial thrombus left basilic thrombus/right PT THROMBUS Normocytic anemia Leukocytosis Monitor CBC, Heme is following. On Epogen with HD Hematology on board, Transfused 3 units PRBC stat on 05/16/16 Transfused 3 units PRBC and 2 units FFP Transfuse 1 unit PRBCs 05/19. Therapeutic Lovenox discontinued, aspirin placed on hold 75 mg IV protamine slow infusion (D/W with Dr. mcintosh) on 05/16/16. Was on Lovenox 150 mg subcutaneous twice a day-DCd 05/16/16 ID: Aspiration pneumonia/Enterobacter aerogenes in sputum Leukocytosis --On Aztreonam, ID Dr. Mariee . Monitor for signs of infection( Fever, WBC) -Pancultured 06/06 ( Blood, sputum, urine) -Patient s/p Cefepime and Flagyl course. Pertinent cultures 05/07 - blood cultures 2 - negative 05/08 - sputum - negative 05/08 - urine - negative 05/08 - blood cultures - negative 05/13 - blood cx negative 05/13 - urine cx negative 05/16 - sputum Enterobacter aerogenes 05/16 - urine neg 131 - blood cultures neg 05/18 - blood cultures- negative 05/19 - bronchoscopy - Yeast 05/27 Sputum Enterobacter 06/02 Sputum: Enterobacter Urine cx: C. Glabrata MSK: History of spinal stenosis/laminectomy/left total knee replacement and left ring finger amputation PT evaluate and treat Access - Peripheral IV;'s Prophylaxis - GI - Protonix - DVT -Heparin 5000 SQ BID, SCD on L leg -06/05 Doppler US LE: No DVT -06/05 Doppler US UE: Right cephalic and left basilic occlusive thrombus- on SQ heparin per Heme. -05/25 Doppler US UE: Occlusive thrombus in the right distal cephalic vein. Nonocclusive thrombus in the left mid and distal basilic veins. Level 3 Tahmina Kelsey MD Jun 08, 2016 12:32
--- NOTE | 2016-06-08 15:34 | MG ---
cc: CHARLY VALDES M.D. Lab No: [id number] Date: Age: 61 Sex: M Race: REFERRING PHYSICIAN: Low. ROOM: 504. With photic stimulation. intubated. Deep tactile stimulation given to him on all four extremities; does not follow commands. MRI shows multifocal bilateral abnormalities with restricted diffusion in both consistent with lacunar infarcts. Admitted with chest pain and syncope. He is a 61-year-old man with heart disease, diabetic. On Cardizem, aztreonam, hydralazine, Reglan. DESCRIPTION OF RECORD: There is overall slowing predominately of 2 Hz. Some background artifact as well but overall there is delta slowing. At other times there is some theta frequency seen as well. Photic stimulation may show minimal driving response. Nail bed pressure - No significant change. IMPRESSION: Moderate slowing consistent with encephalopathic process without any epileptic activity. Clinical correlation. MD EDMOND Garcia/LILIANA /3:04 PM /3:25 PM
--- NOTE | 2016-06-08 20:07 | PD.ONC.PN ---
Subjective Subjective Remarks on ventilator, off sedation, unresponsive no overt bleeding Hb stable today-improving Extremity swelling stable remains on Heparin prophylactic dose Objective Data Date Time Temp Pulse Resp B/P Pulse Ox O2 Delivery O2 Flow Rate FiO2 06/08/16 19:50 100 35 06/08/16 18:00 75 06/08/16 16:00 35 06/08/16 16:00 99.2 78 26 108/53 97 06/08/16 16:00 78 06/08/16 15:26 99 35 06/08/16 14:00 80 06/08/16 12:00 81 06/08/16 12:00 35 06/08/16 12:00 98.9 81 29 159/71 100 06/08/16 10:42 100 T-piece 40 06/08/16 10:42 40 06/08/16 10:00 75 06/08/16 08:27 35 06/08/16 08:02 100 35 06/08/16 08:00 79 06/08/16 08:00 99.1 79 22 154/70 100 06/08/16 08:00 35 06/08/16 06:00 77 06/08/16 04:22 99 35 06/08/16 04:00 98.3 77 22 169/80 100 06/08/16 04:00 35 06/08/16 04:00 77 06/08/16 02:00 78 06/08/16 01:10 98 35 06/08/16 00:00 35 06/08/16 00:00 79 06/08/16 00:00 98.8 79 22 148/75 100 06/07/16 22:00 71 06/07/16 20:06 100 35 06/08/16 06/08/16 06/08/16 07:00 15:00 23:00 Intake Total 494 ml 502 ml Output Total 50 ml 4000 ml 175 ml Balance 444 ml -4000 ml 327 ml Result Diagram: 06/08/1651006/08/16510 Laboratory Results Laboratory Tests Test 06/08/16 05:11 White Blood Count 12.0 TH/MM3 Red Blood Count 3.52 MIL/MM3 Hemoglobin 10.0 GM/DL Hematocrit 31.4 % Mean Corpuscular Volume 89.2 FL Mean Corpuscular Hemoglobin 28.4 PG Mean Corpuscular Hemoglobin 31.9 % Concent Red Cell Distribution Width 16.9 % Platelet Count 218 TH/MM3 Mean Platelet Volume 8.6 FL Neutrophils (%) (Auto) 82.0 % Lymphocytes (%) (Auto) 8.1 % Monocytes (%) (Auto) 8.4 % Eosinophils (%) (Auto) 1.2 % Basophils (%) (Auto) 0.3 % Neutrophils # (Auto) 9.8 TH/MM3 Lymphocytes # (Auto) 1.0 TH/MM3 Monocytes # (Auto) 1.0 TH/MM3 Eosinophils # (Auto) 0.1 TH/MM3 Basophils # (Auto) 0.0 TH/MM3 CBC Comment DIFF FINAL Differential Comment Sodium Level 137 MEQ/L Potassium Level 4.0 MEQ/L Chloride Level 95 MEQ/L Carbon Dioxide Level 24.0 MEQ/L Anion Gap 18 MEQ/L Blood Urea Nitrogen 108 MG/DL Creatinine 6.59 MG/DL Estimat Glomerular Filtration 10 ML/MIN Rate Random Glucose 210 MG/DL Calcium Level 8.1 MG/DL Total Bilirubin 0.7 MG/DL Aspartate Amino Transf 135 U/L (AST/SGOT) Alanine Aminotransferase 192 U/L (ALT/SGPT) Alkaline Phosphatase 214 U/L Total Protein 7.2 GM/DL Albumin 2.3 GM/DL Culture Results Microbiology Date/Time Procedure Status Source Growth 06/06/16 09:38 Gram Stain - Final Complete Sputum Endotracheal 06/06/16 09:38 Sputum Culture - Final Complete Enterobacter Aerogenes 06/06/16 09:38 Urine Culture - Preliminary Resulted Urine Catheterized Urine Yeast Species 06/06/16 10:30 Aerobic Blood Culture - Preliminary Resulted Blood Peripheral NO GROWTH IN 2 DAYS 06/06/16 10:30 Anaerobic Blood Culture - Preliminary Resulted Blood Peripheral NO GROWTH IN 2 DAYS Administered Medications Medications (Trade) Dose Ordered Sig/Isabelle Route PRN Reason Start Time Stop Time Status Last Admin Dose Admin IV Flush (NS Flush) 2 ml UNSCH PRN IV FLUSH FLUSH AFTER USING IV ACCESS 05/05/16 17:15 06/08/16 07:34 IV Flush (NS Flush) 2 ml BID IV FLUSH 05/05/16 21:00 06/08/16 07:34 Artificial Tears (Tears Naturale Opth Soln) 1 drop TID EACH EYE 05/05/16 18:00 06/08/16 17:04 Ondansetron HCl (Zofran Inj) 4 mg Q6H PRN IV NAUSEA OR VOMITING 05/05/16 17:15 05/26/16 01:34 Docusate Sodium (Colace) 100 mg BID PO 05/05/16 21:00 06/08/16 07:34 Miscellaneous Information 1 Q361D XX 05/05/16 17:15 05/05/16 17:15 Chlorhexidine Gluconate (Chlorhexidine 2% Cloth) Taper DAILY@04 TOP 05/06/16 04:00 05/02/17 03:59 06/05/16 04:00 Aspirin (Aspirin Chew) 81 mg DAILY CHEW 05/06/16 09:00 Hold 05/15/16 08:30 Atorvastatin Calcium (Lipitor) 20 mg DAILY PO 05/06/16 09:00 Hold 05/15/16 08:32 Sennosides (Senokot) 17.2 mg Q12H PO 05/06/16 18:00 Hold 05/26/16 05:37 Furosemide (Lasix) 20 mg BID@09,18 PO 05/15/16 18:00 Hold 05/15/16 17:22 Chlorhexidine Gluconate 15 ml 15 ml BID@08,20 MT 05/16/16 20:00 06/08/16 07:34 Sodium Chloride 1,000 ml @ 0 mls/hr Q0M PRN IV For Prime & Rinse Back 05/17/16 12:13 06/08/16 12:21 Sodium Chloride 1,000 ml @ 200 mls/hr Q5H PRN IV WITH DIALYSIS 05/17/16 12:13 06/06/16 09:03 Sodium Chloride (NS 1000 ml Inj) 1,000 ml @ 0 mls/hr Q0M PRN IV WITH DIALYSIS 05/17/16 12:13 06/03/16 12:58 IV Flush (NS Flush) 5 ml UNSCH PRN IVF WITH DIALYSIS 05/17/16 12:15 06/06/16 09:03 Heparin Sodium (Porcine) (Heparin Inj) UNSCH PRN .XX WITH DIALYSIS 05/17/16 12:15 06/08/16 12:22 Gentamicin Sulfate (Gentamicin (Dialysis) Inj) 20 mg UNSCH PRN IV WITH DIALYSIS 05/17/16 12:15 06/08/16 12:22 Epoetin Adonay 43593 units 10,000 units UNSCH PRN IV WITH DIALYSIS 05/17/16 12:15 06/08/16 12:22 Midazolam HCl 100 ml @ 0 mls/hr TITRATE IV 05/17/16 21:45 05/23/16 00:27 Fentanyl Citrate (fentaNYL DRIP) 250 ml @ 0 mls/hr TITRATE IV 05/18/16 20:00 05/23/16 00:27 Hydralazine HCl (Apresoline Inj) 10 mg Q1HR PRN IV PUSH SBP>160, DBP>90 05/27/16 18:00 05/29/16 16:18 Labetalol HCl (Trandate Inj) 10 mg Q1HR PRN IV PUSH SBP>160, DBP>90, HR>65 05/27/16 17:30 06/03/16 19:51 Metoclopramide HCl (Reglan Inj) 5 mg Q8HR IV PUSH 05/27/16 22:00 06/08/16 14:01 Labetalol HCl (Trandate) 200 mg Q8HR PO 05/27/16 22:00 06/08/16 14:01 Acetaminophen (Tylenol 650 Mg/ 20 ml Liq) 650 mg Q6H PRN TUBE TEMP > 100.5 05/31/16 13:30 06/05/16 20:30 Glucagon (Glucagon Inj) 1 mg UNSCH PRN OTHER HYPOGLYCEMIA-SEE COMMENTS 06/02/16 07:15 06/02/16 14:00 Insulin Human Regular (NovoLIN R SUPPLEMENTAL SCALE) 1 Q6H SQ 06/02/16 07:30 06/08/16 13:30 Heparin Sodium (Porcine) (Heparin Inj) 5,000 units Q12HR SQ 06/02/16 21:00 06/08/16 07:34 IV Flush (NS Flush) UNSCH PRN IVF SEE PROTOCOL 06/02/16 14:30 06/08/16 07:34 Hydralazine HCl (Apresoline) 50 mg Q8HR PO 06/03/16 14:00 06/08/16 14:01 Diltiazem HCl 60 mg 60 mg QID PO 06/06/16 13:00 06/08/16 17:04 Aztreonam/Sodium Chloride (Azactam Inj/NS Inj) 100 ml @ 200 mls/hr Q6H IV 06/06/16 10:00 06/08/16 16:08 Objective Remarks GENERAL: nad SKIN: Warm and dry. NECK: Supple, trachea midline. No JVD or lymphadenopathy. LYMPHATIC: No adenopathy. CARDIOVASCULAR: Regular rate and rhythm without murmurs. RESPIRATORY: Breath sounds equal bilaterally. GASTROINTESTINAL: Abdomen soft, distended due to obesity, bowel sounds absent EXTREMITIES: No cyanosis, edematous Assessment/Plan Problem List: (1) Occlusive thrombus Status: Acute Plan: -- US on 05/25/16 shows occlusive thrombus to R distal cephalic vein -- US on 05/18 and 05/26 shows clot to R posterior tibial vein. Per Dr. Peters there has been propagation of the clot between 05/18 and 05/26. --US on 06/05 shows no LE DVT (2) Retroperitoneal bleed Status: Acute Plan: -- Lg areas of hemorrhage involving the left peritoneum psoas muscle, the mesentery as well as area adjacent to the left external iliac artery found on CT 05/16 -- Daily CBC -- Repeat CT Abdomen once stable (3) Anemia Status: Acute Plan: -- Transfuse to keep Hgb greater than 8. -- Worsening anemia concerning for recurrent bleed to retroperitoneum. Assessment 62 y/o male who presented to the ED with chest pain and was found to be in acute STEMI. Plan - Continue prophylactic heparin, daily cbc - repeat U/S LE or UE if swelling worsens Problem Qualifiers (1) Anemia: Carmelo Veras MD Jun 08, 2016 20:07
[2016-06-09] VITALS (19 sets, daily range): BP systolic 111–129; BP diastolic 56–60; PULSE 73–89; RESP 22–37; TEMP 98.7–99.5; O2SAT 96–100
[2016-06-09] MEDS: INSULIN NovoLIN REGULAR SUPPLEMENTAL SCALE SQ SCH ×4 (01:21→20:49)
[2016-06-09] MEDS: CHLORHEXIDINE GLUCONATE 2 % 1 PACK (2 CLOTHS) TOP SCH (04:00)
[2016-06-09] MEDS: AZTREONAM INJ 1,000 MG in SODIUM CHLORIDE 0.9% INJ 100 ML IV SCH ×2 (04:36→10:41)
[2016-06-09] MEDS: hydrALAZINE HCL 25 MG TAB PO SCH ×3 (05:53→20:51)
[2016-06-09] MEDS: LABETALOL HCL 200 MG TAB PO SCH ×3 (05:53→20:51)
[2016-06-09] MEDS: METOCLOPRAMIDE HCL 10 MG/2 ML VIAL IV PUSH SCH ×3 (05:53→20:51)
[2016-06-09] MEDS: DOCUSATE SODIUM 100 MG CAP PO SCH ×2 (08:05→20:50)
[2016-06-09] MEDS: HEPARIN SODIUM - SQ 10,000 UNITS/ML VIAL SQ SCH ×2 (08:05→20:50)
[2016-06-09] MEDS: DILTIAZEM HCL 60 MG TAB PO SCH ×4 (08:05→20:50)
[2016-06-09] MEDS: ARTIFICIAL TEARS OPTH SOLN 15 ML BTL EACH EYE SCH ×3 (08:06→17:29)
[2016-06-09] MEDS: CHLORHEXIDINE 0.12% (ORAL KIT) 15 ML CUP MT SCH ×2 (08:06→20:49)
[2016-06-09] MEDS: SODIUM CHLORIDE 0.9% FLUSH 5 ML FLUSH IV FLUSH SCH ×2 (08:06→20:50)
--- NOTE | 2016-06-09 11:06 | HHI.NPPN ---
Subjective History of Present Illness 61 year old with ARF, CHF, Respiratory failure Additional Remarks Patient s/p Trach and off sedation, remain unresponsive Objective Data Data 06/08/16 06/09/16 19:00 07:00 Intake Total 502 ml 1204 ml Output Total 4175 ml 100 ml Balance -3673 ml 1104 ml IV Total 137 ml 380 ml Tube Feeding 305 ml 824 ml Other 60 ml Output Urine Total 175 ml 100 ml Hemodialysis 4000 ml # Bowel Movements 0 1 Vital Signs Date Time Temp Pulse Resp B/P Pulse Ox O2 Delivery O2 Flow Rate FiO2 06/09/16 10:00 80 06/09/16 08:00 35 06/09/16 08:00 99.0 85 24 112/56 99 06/09/16 08:00 85 06/09/16 07:34 96 35 06/09/16 06:00 81 06/09/16 04:13 98 35 06/09/16 04:00 98.7 84 22 129/60 100 06/09/16 04:00 35 06/09/16 04:00 84 06/09/16 02:00 74 06/09/16 01:08 98 35 06/09/16 01:00 35 06/09/16 00:00 73 06/09/16 00:00 99.5 73 22 116/58 99 06/08/16 22:00 75 06/08/16 20:00 35 06/08/16 20:00 74 06/08/16 20:00 99.1 74 22 129/60 100 06/08/16 19:50 100 35 06/08/16 18:00 75 06/08/16 16:00 35 06/08/16 16:00 99.2 78 26 108/53 97 06/08/16 16:00 78 06/08/16 15:26 99 35 06/08/16 14:00 80 06/08/16 12:00 81 06/08/16 12:00 35 06/08/16 12:00 98.9 81 29 159/71 100 -: 06/08/16 0511 06/08/16 0511 Physical Exam General Appearance: Obese Neck Neck Exam: Neck Supple Pulmonary Resp Exam: Rhonchi, Decreased Bases, Diminished Breath Sounds, Poor Inspiratory Effort Cardiology CV Exam: Tachycardia Gastrointestinal/Abdomen GI Exam: Soft, Non-Tender, Distended Extremeties Extremities Exam: Moderate Edema, Pitting Edema, Dependent Edema Neurologic Neuro Exam: Unresponsive Assessment/Plan Problem List: (1) Acute renal failure Plan: Patient has oliguric acute renal failure and remains essentially oliguric. 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 Plan: Cardiology following (4) Acute hypoxemic respiratory failure Plan: On ventilator (5) Hypertensive emergency Plan: BP improved (6) Diabetes mellitus Plan: Continue monitor blood glucose (7) CAD (coronary artery disease) Plan: Presented with STEMI, follow with cardiology (8) Subsequent ST elevation (STEMI) myocardial infarction of anterior wall Plan: Planned transfer to when stable. No intervention performed here. 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
--- NOTE | 2016-06-09 13:21 | HHI.IDPN ---
Subjective Subjective Remarks Mr. Short is a 61-year-old male who was admitted on May 05, 2016. Patient's past medical history significant for hypertensive heart disease, hypertension, type 2 diabetes and spinal stenosis. Patient presented to [facility] on the day of admission with history of acute onset of diaphoresis chest pain and syncope. Patient now has retroperitoneal hematoma, IC bleed. ID following for possible sepsis. Delayed entry patient seen ~ 11 am. Overnight events reviewed. No fever Small scant to moderate secretions. On HD. UO low. Not on pressors. No rash No diarrhea Not waking up. Off sedation many days. Yawns and mouthing noted but no other meaningful response. Antibiotics Azactam IV Lines Line sites with no e/o infection Past Medical History reviewed Allergies: Coded Allergies: Penicillin (Verified Allergy, Mild, "I GO CRAZY", 09/01/15) Objective . Vital Signs Date Time Temp Pulse Resp B/P Pulse Ox O2 Delivery O2 Flow Rate FiO2 06/09/16 12:07 98 35 06/09/16 12:00 35 06/09/16 12:00 81 06/09/16 12:00 99.0 81 22 114/57 99 06/09/16 10:00 80 06/09/16 08:00 35 06/09/16 08:00 99.0 85 24 112/56 99 06/09/16 08:00 85 06/09/16 07:34 96 35 06/09/16 06:00 81 06/09/16 04:13 98 35 06/09/16 04:00 98.7 84 22 129/60 100 06/09/16 04:00 35 06/09/16 04:00 84 06/09/16 02:00 74 06/09/16 01:08 98 35 06/09/16 01:00 35 06/09/16 00:00 73 06/09/16 00:00 99.5 73 22 116/58 99 06/08/16 22:00 75 06/08/16 20:00 35 06/08/16 20:00 74 06/08/16 20:00 99.1 74 22 129/60 100 06/08/16 19:50 100 35 06/08/16 18:00 75 06/08/16 16:00 35 06/08/16 16:00 99.2 78 26 108/53 97 06/08/16 16:00 78 06/08/16 15:26 99 35 06/08/16 14:00 80 06/08/16 06/08/16 06/09/16 15:00 23:00 07:00 Intake Total 1056 ml 650 ml Output Total 4000 ml 225 ml 50 ml Balance -4000 ml 831 ml 600 ml IV Total 294 ml 223 ml Tube Feeding 702 ml 427 ml Other 60 ml Output Urine Total 225 ml 50 ml Hemodialysis 4000 ml # Bowel Movements 1 0 . Laboratory Tests Test 06/08/16 05:11 White Blood Count 12.0 TH/MM3 Red Blood Count 3.52 MIL/MM3 Hemoglobin 10.0 GM/DL Hematocrit 31.4 % Mean Corpuscular Volume 89.2 FL Mean Corpuscular Hemoglobin 28.4 PG Mean Corpuscular Hemoglobin 31.9 % Concent Red Cell Distribution Width 16.9 % Platelet Count 218 TH/MM3 Mean Platelet Volume 8.6 FL Neutrophils (%) (Auto) 82.0 % Lymphocytes (%) (Auto) 8.1 % Monocytes (%) (Auto) 8.4 % Eosinophils (%) (Auto) 1.2 % Basophils (%) (Auto) 0.3 % Neutrophils # (Auto) 9.8 TH/MM3 Lymphocytes # (Auto) 1.0 TH/MM3 Monocytes # (Auto) 1.0 TH/MM3 Eosinophils # (Auto) 0.1 TH/MM3 Basophils # (Auto) 0.0 TH/MM3 CBC Comment DIFF FINAL Differential Comment Laboratory Tests Test 06/08/16 05:11 Sodium Level 137 MEQ/L Potassium Level 4.0 MEQ/L Chloride Level 95 MEQ/L Carbon Dioxide Level 24.0 MEQ/L Anion Gap 18 MEQ/L Blood Urea Nitrogen 108 MG/DL Creatinine 6.59 MG/DL Estimat Glomerular Filtration 10 ML/MIN Rate Random Glucose 210 MG/DL Calcium Level 8.1 MG/DL Total Bilirubin 0.7 MG/DL Aspartate Amino Transf 135 U/L (AST/SGOT) Alanine Aminotransferase 192 U/L (ALT/SGPT) Alkaline Phosphatase 214 U/L Total Protein 7.2 GM/DL Albumin 2.3 GM/DL Imaging Last Impressions Chest X-Ray 05/17/16 0600 Signed Impressions: Service Date/Time: Tuesday, May 17, 2016 04:05 - CONCLUSION: No significant change. Minimal basilar atelectasis. Low Johnson MD Head CT 05/16/16 Signed Impressions: Service Date/Time: Monday, May 16, 2016 08:30 - CONCLUSION: Suspected bilateral basal ganglia calcifications are unchanged. No evidence of hemorrhage, edema, mass or mass effect. Stephen Quintanilla MD Brain MRI 05/16/16 Signed Impressions: Service Date/Time: Monday, May 16, 2016 15:46 - CONCLUSION: 1. Small punctate areas of white matter infarction without cortical extension or hemorrhage. There is no significant mass effect. 2. Bilateral basal ganglia infarcts measuring 1 cm Bobby Lamas MD Abdomen/Pelvis CT 05/16/16 Signed Impressions: Service Date/Time: Monday, May 16, 2016 08:39 - CONCLUSION: There are large areas of hemorrhage including the left retroperitoneum and psoas muscle, within the mesentery and a smaller area in the right psoas muscle. They don't appear to be related to the abdominal aorta or the internal iliac arteries. There is a small focal collection hemorrhage adjacent to the left external iliac artery as it enters the pelvis, but I don't believe that is related to the large amount of hemorrhage seen elsewhere. The areas of hemorrhage are large and multi-focal. Stephen Quintanilla MD Upper Extremity Ultrasound 05/10/16 Signed Impressions: Service Date/Time: Tuesday, May 10, 2016 09:44 - CONCLUSION: Occlusive thrombus in the right cephalic vein. Otherwise negative Shahid Sin MD Lower Extremity Ultrasound 05/10/16 Signed Impressions: Service Date/Time: Tuesday, May 10, 2016 09:20 - CONCLUSION: Occlusive thrombus right posterior tibial vein. Otherwise negative with negative left lower extremity Shahid Sin MD CT Angiography 05/06/16 Signed Impressions: Service Date/Time: Saturday, May 07, 2016 00:04 - CONCLUSION: 1. Lobar consolidation bilaterally in the lower lobes. 2. Negative for pulmonary embolism. Michael Colbert MD Physical Exam GENERAL: Obese AAM patient, in no apparent distress. SKIN: No rashes, ecchymoses or lesions. Cool and dry. HEAD: Atraumatic. Normocephalic. No temporal or scalp tenderness. EYES: Pupils equal round and reactive. Extraocular motions intact. No scleral icterus. No injection or drainage. ENT: Large neck NECK: Trachea midline. Supple, nontender, no meningeal signs. CARDIOVASCULAR: HS audible. RESPIRATORY: Breath sounds equal bilaterally decreased in the bases. GASTROINTESTINAL: Abdomen soft, non-tender, nondistended. Obese MUSCULOSKELETAL: Extremities with wrinkling of skin noted. Still has edema. NEUROLOGICAL: Off sedation and no response. Psych: could not be assessed IV line sites with no e/o infection. Assessment & Plan Remarks Enterobacter cloacae Pneumonia. Possible Cath associated UTI. Possible Central line associated Blood Stream Infection. Acute metabolic encephalopathy Acute resp failure on BiPAP, component of STU Acute kidney injury: prerenal from hemodynamic changes, chronic HTN related. DM2 uncontrolled: stress as additional factor. CAD non ischemic cardiomyopathy Anemia: acute due to Retroperitoneal bleed. Receiving blood transfusions. Recs: Dc Azactam IV (elevated LFTs) Start Levaquin oral HD dose. Follow cultures Follow clinically. Will follow next on Sunday06/12/16. If any change in clinical condition call presentation specialist TANGELA VIGIL. Tracy Mariee MD Jun 09, 2016 13:21
[2016-06-09] MEDS: LEVOFLOXACIN 250 MG TAB PO SCH (13:51)
--- NOTE | 2016-06-09 15:28 | HHI.CCPN ---
Subjective Remarks/Hospital Course 61-year-old AA male. Date of admission 05/05/2016. Date of consultation 2016. Past medical history includes hypertensive heart disease, hypertension, diabetes mellitus type 2 and spinal stenosis. He presented to [facility] today with history of acute onset of diaphoresis, chest pain and syncope. Her documentation, Chest pain was 7 out of 10 without radiation. Later in the hospital physician, patient did have ST elevation anterior septal leads. I he had a cardiac catheterization in 2009 which revealed moderate coronary disease which documented 50-60% stenosis in the LAD diagonals 1 and 2. Recommended medical management at that time. Dr. Marcano was notified and proceed to the cardiac catheter lab. Patient sees heparin and one aspirin prior to cardiac catheterization. During heart catheterization,, patient became hypertensive, tachypneic, hypoxic and agitated including abdominal pain with nausea and vomiting. Patient was intubated by Dr. Simon and dispensed transferred to room 505a. Currently hemodynamic stable on a propofol drip. 05/06: Patient required additional sedation overnight. Was moving all 4 extremity spontaneously and strongly. Potassium is replaced overnight along with magnesium. This afternoon approximate 4 PM, patient went into a sinus bradycardia in the 40s. RN cannot locate pulse and possibly went into a PEA arrest. Patient received CPR for approximately 2 minutes. ROSC return immediately. Received 1 mg of epinephrine IV. Blood pressure was 240 systolic. Saturations were above 90% the entire time. Dr. Marcano was made aware. No new recommendations at this time. Electrolytes currently pending. Patient is currently hemodynamic stable and an arterial line/left radial has been placed 05/07: no improvement in delirium or mental status. spiking low grade fevers. 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 CT surgery consulted and declined to operate here: he will need referral once stabilized. fio2 requirements still high. CT chest also with evidence of bibasilar consolidation which may be aspiration pneumonitis vs. pneumonia now that we are 48h out from initial presentation and now spiking fevers. 05/08: delirium persists. continues to spike fevers. jolly cultured yesterday without results yet. holding sedation today. 05/09: delirium slightly improved. waking up on SAT, weakly following commands. cultures still NGTD. hypoxia slightly improved. 05/10: delirium improving. weakly following commands still. cultures still NGTD. fevers persist, although fever curve appears to be improving. hypoxia continues to improve. still remains very critically ill. 05/11: Tmax 99.9. Currently 99.1. Tolerating tube feeding. One bowel movement. Continues to have difficulty weaning ventilator. 05/12: Currently afebrile. Tolerating tube feeding. Positive BM. Increased FiO2 from 45-60%. +1 L. Arousable on sedation vacation and weakly follows commands. 05/13: Remains intubated, sedated. FiO2 now reduced to 45% (was 55% today am). Start weaning trials after starting Precedex. To control BP May use Cardene, given anomalous RCA 05/14: Extubated yesterday, remained on BiPAP overnight. Intermittently agitated. Following commands to me today, while on BiPAP. Remains on Cardene infusion for uncontrolled hypertension. Urine output 4.7 L in 24 hours 05/15: On 3 L nasal cannula. Fever trending down, breathing more comfortably. Able to communicate. Discussed with Dr. Marcano. Dr. Pendleton will be available tomorrow, will probably need transfer to [facility] for RCA unroofing 05/16: Acutely hypotensive overnight with tachycardia. MAP was 55 with greater than 130s. Received 3.5 L of normal saline bolus with improvement in blood pressure and heart rate. Lethargic on BiPAP. ABG pending, HB dropped from 10.9 to 7.8. No obvious source of bleeding. STAT 2U PRBC. STAT CT head and CT abd pelvis. R/O ICH or RP bleed. Patient received only 5mg Nicci at 2100 yesterday, no other sedation. Last dose of Lovenox was at 211, held now 05/17: Developed Hemorrhagic shock from large retroperitoneal hemorrhage night to 05/15/16. Stabilized after 3 units of PRBC and protamine. Hemoglobin 8.7 today. Remain encephalopathy and unresponsive yesterday. MRI 05/16/16 shows small punctate white matter infarcts, bilateral basal ganglia infarcts. Urology consult pending. Antiplatelet drugs on hold. Now with anuria from ATN secondary to shock. Nephrology consult pending 05/18: Developed sudden onset bradycardia in 40s, with acute hypotension yesterday evening around 5 PM. ACLS protocol initiated (did not arrest or lose pulse). Received multiple epinephrine, bicarbonate calcium and fluid boluses. Patient was placed on dopamine 20 mics per KG per minute, Levophed 20 mics per KG per minute, epinephrine 2.5 mics per minute and eventually stabilized with systolic blood pressure reading 120s. Hemoglobin on ABG was 7 and emergently transfused 3 units PRBC and 2 units FFP. Lab hemoglobin came back at 6.8. Patient also was profoundly acidemic with pH of 7.16. Patient received total 3 A of bicarbonate and bicarbonate infusion was started, minute ventilation was also increased. 2: MAXIMUM TEMPERATURE 100.3. Currently 99.5. No bowel movement. Tube feeds were restarted. FiO2 50%. PEEP at 8. 05/20: MAXIMUM TEMPERATURE 100.9. Positive BM. Tube feeds were restarted today. PT plateau. FiO2 down to 85%. Semiemergent bronchoscopy yesterday for right upper lobe airway obstruction. Resolved 05/21: MAXIMUM TEMPERATURE 100.7. Currently 99.6. Somewhat tachycardic. 2 bowel movements overnight. Tolerating tube feeds at 30 cc an hour. Had episode of emesis overnight. 05/22: Remains sedated, orally intubated on mechanical ventilation. 05/23: Remains sedated, orally intubated on mechanical ventilation. Dialyzed yesterday. 05/24: Remains sedated/encephalopathic, orally intubated on mechanical ventilation. Tolerating tube feeds. Awaiting dialysis 05/25: Remains encephalopathic, orally intubated on mechanical ventilation. Off sedation for 2 days now. PEEP decreased to to +7 10 No acute events overnight. For HD today. Afebrile. On PRVC/AC 20, TV 550, PEEP: 6, IT: 1.2 and FIO2 35%. On no sedation. Tolerating tube feeds. Subjective 05/27: Tmax 99.8. Currently 99.1. FiO2 down to 35%. Tolerating tube feeding. Positive BM. MRI brain reveals bilateral lacunar infarcts. Will likely need trach 05/28: Afebrile. The patient continues on CPAP trials 28/09 FiO2 of 35%, maintaining O2 sat at 97%. 05/29: The patient continues on CPAP trials. The patient underwent hemodialysis today. The patient is noted to be a medium dose sliding scale insulin with persistent hyperglycemia will increase to high-dose insulin sliding scale. Per hematology the patient was placed on heparin infusion initially, then discontinued.. 05/30 Tmax 100.1. S/P initiation of therapeutic anticoagulation ,serial hemoglobin stable, continue to monitor every 12 hours. Patient continues to fail CPAP trials, plan for tracheostomy, Discussed with patient spouse, she desires a trach and PEG, at this time. 05/31 Tmax 100.1. Maintaining CPAP trials occasionally 3-4 hours. Discussed with family risk and benefits of tracheostomy. Discussed with family MRI results, EEG results. Family requests continue aggressive support. Plan for percutaneous tracheostomy . GI consulted for PEG placement. 06/01 Percutaneous tracheostomy performed today. Plan for patient to go to IR for new Vas-Cath placement per nephrology. 06/02 Patient s/p trach yesterday. For PEG tube placement and HD today today. On no sedation. T: 100.2 06/03 Patient s/p PEG tube placement and HD yesterday with removal 5L. Afebrile. Remains off sedation. 06/04 no acute events overnight. Tolerating C Pap. Will place on T piece 2-4 hours. No change in neuro exam 06/05 No acute events overnight. Tolerated CPAP/TP's trials for 4 hrs yesterday. Afebrile. For HD today 06/06 Patient is on ventilator via trach spiked fever with T: 101.0 last night. s /p HD yesterday with removal 3L. 06/07 Patient s/p HD yesterday with removal 3L. T: 100.8 last night. On ventilator via trach remains encephalopathic. 06/08: Currently getting hemodialysis, no fever white count trending down. Slight improvement in neuro exam. Partial eye-opening to central pain. Withdraws bilateral upper extremity slightly to pain 06/09: No acute events overnight. Tolerated tp yesterday, increase TP time to 8- 10 hours today. at bedside Objective Vital Signs Date Time Temp Pulse Resp B/P Pulse Ox O2 Delivery O2 Flow Rate FiO2 06/09/16 14:00 89 06/09/16 13:10 98 T-piece 40 06/09/16 12:00 99.0 22 114/57 Intake and Output 06/08/16 06/08/16 06/09/16 08:00 16:00 00:00 Intake Total 494 ml 502 ml 554 ml Output Total 50 ml 4175 ml 50 ml Balance 444 ml -3673 ml 504 ml Result Diagram: 06/08/16 0511 06/08/16 0511 Imaging Last Impressions Liver Ultrasound 06/06/16 Signed Impressions: Service Date/Time: Monday, June 06, 2016 14:18 - CONCLUSION: 1. Liver slightly echogenic which can be seen with fatty infiltration. 2. Spleen not visualized. 3. There may be some minimal gallbladder sludge but no cholelithiasis or wall thickening. Carlitos Aguirre MD Chest X-Ray 06/06/16 Signed Impressions: Service Date/Time: Monday, June 06, 2016 08:23 - CONCLUSION: Improving aeration. Satisfactory dialysis catheter positioning. Low Blood MD Upper Extremity Ultrasound 06/05/16 Signed Impressions: Service Date/Time: Sunday, June 05, 2016 11:01 - CONCLUSION: Occlusive thrombus right cephalic vein and left basilic vein Shahid Sin MD Lower Extremity Ultrasound 06/05/16 Signed Impressions: Service Date/Time: Sunday, June 05, 2016 16:05 - CONCLUSION: Normal examination. No evidence of DVT Shahid Sin MD Gastrostomy Tube Placement 06/02/16 Signed Impressions: Service Date/Time: Thursday, June 02, 2016 12:31 - CONCLUSION: Uncomplicated gastrostomy tube placement as above. Isidro Flor MD Catheter Placement X-Ray 06/02/16 Signed Impressions: Service Date/Time: Thursday, June 02, 2016 12:31 - CONCLUSION: 1. Uncomplicated line placement as above. 2. Patient currently has a modified left subclavian PermCath catheter that is being utilized as a temporary access. Isidro Flor MD Brain MRI 05/27/16 Signed Impressions: Service Date/Time: Friday, May 27, 2016 12:17 - CONCLUSION: Multifocal bilateral T2 signal abnormalities in restricted diffusion concerning for bilateral lacunar infarcts. Carlitos Aguirre MD Head CT 05/16/16 0000 Signed Impressions: Service Date/Time: Monday, May 16, 2016 08:30 - CONCLUSION: Suspected bilateral basal ganglia calcifications are unchanged. No evidence of hemorrhage, edema, mass or mass effect. Stephen Quintanilla MD Abdomen/Pelvis CT 05/16/16 Signed Impressions: Service Date/Time: Monday, May 16, 2016 08:39 - CONCLUSION: There are large areas of hemorrhage including the left retroperitoneum and psoas muscle, within the mesentery and a smaller area in the right psoas muscle. They don't appear to be related to the abdominal aorta or the internal iliac arteries. There is a small focal collection hemorrhage adjacent to the left external iliac artery as it enters the pelvis, but I don't believe that is related to the large amount of hemorrhage seen elsewhere. The areas of hemorrhage are large and multi-focal. Stephen Quintanilla MD CT Angiography 05/06/16 0000 Signed Impressions: Service Date/Time: Saturday, May 07, 2016 00:04 - CONCLUSION: 1. Lobar consolidation bilaterally in the lower lobes. 2. Negative for pulmonary embolism. Michael Colbert MD Objective Remarks GENERAL: 61-year-old AA male, morbidly obese on TP via trach SKIN: Warm and dry. No rash HEAD: Atraumatic. Normocephalic. EYES: Pupils equal and round around 2-3 mm bilaterally and slightly reactive. No scleral icterus. No injection or drainage. ENT: No nasal bleeding or discharge. NECK: JVD difficult to assess due to body habitus. s/p Trach, no bleeding from site CARDIOVASCULAR: Tachycardic nl S1, S2. Without murmur RESPIRATORY: Diminished breath sounds bilaterally due to body habitus. Breath sounds equal bilaterally. GASTROINTESTINAL: Abdomen obese, non-tender, protuberant, distended. no guarding. Peg tube in place MUSCULOSKELETAL: Extremities with 1+ edema NEUROLOGICAL: Patient remains unresponsive, off sedation since morning of 05/23. Pupils are sluggishly reactive. Bilateral upper extremity mildly withdrawal to pain. +ve Corneal reflex, gag reflex. Partial eye opening to sternal rub A/P Assessment and Plan Neuro/Psych: Bilateral basal ganglia infarcts, small punctate white matter infarcts on MRI Metabolic encephalopathy Patient remains unresponsive. Has been off sedation > [address] Felix. MRI of the brain done 05/16/16 shows small punctate white matter infarcts, bilateral basal ganglia infarcts. Repeat MRI brain 05/27 similar Off Seroquel and Haldol due to nonsustained V. tach Head CT 05/08, 05/16: negative acute. EEG 05/12 revealed generalized slowing right greater than left. No epileptiform activity. EEG 05/16: No seizure, severe encephalopathy. EEG 06/08 moderate encephalopathy, no seizure CV: Hemorrhagic shock due to left retroperitoneal hemorrhage-shock resolved Severe bradycardia and hypotension 05/17/16 most likely secondary to recurrent bleed Aberrant RCA off LCC Nonsustained V. tach single episode Diastolic heart failure Coronary artery disease Nonischemic cardiomyopathy secondary to hypertensive heart disease Hypertensive emergency On Labetalol 200 every 8, Hydralazine 50mg Q 8hrs, Cardizem 60mg QID Status post cardiac catheterization by Dr. Moy. No intervention performed. Known coronary artery artery disease to the first and second diagonals the LAD. Aberrant RCA off left coronary cups. Transfer to fo RCA for unroofing -on hold due to lack of improvement in neuro status Aspirin 81 mg on hold due to RP hemorrhage. (Plavix DC d 05/15/[address] Marcano at that time in anticipation of probable unroofing surgery) Lipitor 20 mg by mouth daily held in light of elevated liver function tests 05/30 Short run 8-9 beats V-tach last evening with resolution, no intervention Pulm: Acute hypoxemic respiratory failure-extubated 05/13/16, re intubated 05/16/16 for airway protection Likely underlying STU Right upper lobe mucus plugging S/P percutaneous tracheostomy. 8.0 Shiley 06/01 Ventilator bundle, SBT/TP's daily as tolerated. TP up to 8-10 hours daily and CPAP/PS at night Bronchodilator therapy every 4 hours and as needed. Pulm toilet, trach care CXR 06/06: Improved aeration of lungs. GI: S/P large left retroperitoneal hemorrhage 05/15 Hypoalbuminemia Elevated LFT's Monitor LFT's, US liver: Liver slightly echogenic which can be seen with fatty infiltration. There may be some minimal gallbladder sludge but no cholelithiasis or wall thickening. Continue TF via PEG(Nepro at 50 cc an hour) Continue Protonix for GI prophylaxis Colace/Senokot twice a day for bowel regimen /Renal: Acute kidney failure due to ATN Anuria Chaudhry for accurate I's and O's in a critically ill patient HD started 05/17/16 , Sunday. Renal- Dr. Mcintosh. HD per him. Will need PermaCath placement as patient will likely need HD detention. Endo: Diabetes mellitus type 2 Hyperglycemia SSI medium scale with accuchecks Q6 Heme: s/p Acute blood loss anemia with shock Large left retroperitoneal hemorrhage Right cephalic superficial thrombus left basilic thrombus/right PT THROMBUS Normocytic anemia Leukocytosis Monitor CBC, Heme is following. On Epogen with HD Hematology on board, Transfused 3 units PRBC stat on 05/16/16 Transfused 3 units PRBC and 2 units FFP Transfuse 1 unit PRBCs 05/19. Therapeutic Lovenox discontinued, aspirin placed on hold 75 mg IV protamine slow infusion (D/W with Dr. mcintosh) on 05/16/16. Was on Lovenox 150 mg subcutaneous twice a day-DCd 05/16/16 ID: Aspiration pneumonia/Enterobacter aerogenes in sputum Leukocytosis -On Aztreonam, ID Dr. Mariee . Monitor for signs of infection( Fever, WBC) -Pancultured 06/06 ( Blood, sputum, urine) -Patient s/p Cefepime and Flagyl course. Pertinent cultures 05/07 - blood cultures 2 - negative 05/08 - sputum - negative 05/08 - urine - negative 05/08 - blood cultures - negative 05/13 - blood cx negative 05/13 - urine cx negative 05/16 - sputum Enterobacter aerogenes 05/16 - urine neg 131 - blood cultures neg 05/18 - blood cultures- negative 05/19 - bronchoscopy - Yeast 05/27 Sputum Enterobacter 06/02 Sputum: Enterobacter Urine cx: C. Glabrata MSK: History of spinal stenosis/laminectomy/left total knee replacement and left ring finger amputation PT evaluate and treat Access - Peripheral IV;'s Prophylaxis -GI - Protonix -DVT -Heparin 5000 SQ BID, SCD on L leg -06/05 Doppler US LE: No DVT -06/05 Doppler US UE: Right cephalic and left basilic occlusive thrombus- on SQ heparin per Heme. -05/25 Doppler US UE: Occlusive thrombus in the right distal cephalic vein. Nonocclusive thrombus in the left mid and distal basilic veins. Level 3 Tahmina Kelsey MD Jun 09, 2016 15:28 Tahmina Kelsey MD Jun 09, 2016 15:28 Tahmina Kelsey MD Jun 09, 2016 15:28
--- NOTE | 2016-06-09 20:49 | RADRPT ---
EXAM DATE/TIME: 06/09/2016 19:58 [facility] COMPARISON: CHEST SINGLE AP, June 06, 2016, 8:23. INDICATIONS : Respiratory failure MEDICAL HISTORY : Myocardial infarction. Congestive heart failure. Hypertension. diabetes SURGICAL HISTORY : None. ENCOUNTER: Subsequent ACUITY: 1 month PAIN SCORE: Non-responsive. LOCATION: Bilateral chest FINDINGS: Patchy consolidation seen in both bases and there is lobar consolidation in the right upper lobe. Sma ll, bilateral pleural effusions are likely. No pneumothorax. Heart size stable, upper limits of normal. Trach collar again noted. There is a left subclavian double lumen catheter with distal tip in the sup erior vena cava. CONCLUSION: Right upper lobe pneumonia and mild bibasilar consolidation with small effusions. Low Johnson MD on June 09, 2016 at 20:46 Board Certified Radiologist. This report was verified electronically.
[2016-06-09] MEDS: RESP: ALBUTEROL 2.5 MG/IPRATROPIUM 0.5 MG NEB (PRN) INH (20:56)
[2016-06-10] VITALS (20 sets, daily range): BP systolic 128–164; BP diastolic 75–92; PULSE 81–112; RESP 20–35; TEMP 97.6–100.8; O2SAT 93–100
[2016-06-10] MEDS: RESP: ALBUTEROL 2.5 MG/IPRATROPIUM 0.5 MG NEB (PRN) INH ×2 (01:04→19:17)
[2016-06-10] MEDS: INSULIN NovoLIN REGULAR SUPPLEMENTAL SCALE SQ SCH ×4 (02:24→17:42)
[2016-06-10] MEDS: CHLORHEXIDINE GLUCONATE 2 % 1 PACK (2 CLOTHS) TOP SCH (04:00)
[2016-06-10 05:25] LABS: ALKALINE PHOSPHATASE 255 U/L (45-117); ALT (GPT) 263 U/L (12-78); ANION GAP 18 MEQ/L (5-15); AST (GOT) 217 U/L (15-37); BICARBONATE 19.1 MEQ/L (21.0-32.0); BLOOD UREA NITROGEN 111 MG/DL (7-18); CHLORIDE 95 MEQ/L (98-107); GLOMERULAR FILTRATION RATE 12 ML/MIN (>89); POTASSIUM 5.1 MEQ/L (3.5-5.1); SODIUM (NA) 132 MEQ/L (136-145); TOTAL BILIRUBIN ADULT 0.5 MG/DL (0.2-1.0)
[2016-06-10] MEDS: METOCLOPRAMIDE HCL 10 MG/2 ML VIAL IV PUSH SCH ×3 (05:35→21:40)
[2016-06-10] MEDS: LABETALOL HCL 200 MG TAB PO SCH ×3 (05:35→21:40)
[2016-06-10] MEDS: hydrALAZINE HCL 25 MG TAB PO SCH ×3 (05:35→21:40)
[2016-06-10 07:21] LABS: AUTOMATED NEUTROPHIL # 8.5 TH/MM3 (1.8-7.7); BASOPHIL # 0.1 TH/MM3 (0-0.2); BASOPHIL % 0.5 % (0.0-2.0); EOSINOPHIL # 0.2 TH/MM3 (0-0.4); EOSINOPHIL % 2.1 % (0.0-4.0); HEMATOCRIT 28.7 % (39.0-51.0); HEMO FLAGS DIFF FINAL; LYMPH % 9.8 % (9.0-44.0); LYMPHOCYTE # 1.1 TH/MM3 (1.0-4.8); MEAN CELL VOLUME 88.2 FL (80.0-100.0); MEAN CORPUSCULAR HEMOGLOBIN 28.5 PG (27.0-34.0); MEAN CORPUSCULAR HGB CONC 32.3 % (32.0-36.0); MONO % 11.6 % (0.0-8.0); PLATELET COUNT 255 TH/MM3 (150-450); RED BLOOD COUNT 3.25 MIL/MM3 (4.50-5.90); RED CELL DISTRIBUTION WIDTH 16.4 % (11.6-17.2); WHITE BLOOD COUNT 11.2 TH/MM3 (4.0-11.0)
[2016-06-10] MEDS: CHLORHEXIDINE 0.12% (ORAL KIT) 15 ML CUP MT SCH ×2 (08:00→20:00)
--- NOTE | 2016-06-10 08:22 | RADRPT ---
EXAM DATE/TIME: 06/10/2016 07:53 [facility] COMPARISON: CHEST SINGLE AP, June 09, 2016, 19:58. INDICATIONS : Evaluate for respiratory disease. MEDICAL HISTORY : Myocardial infarction. Congestive heart failure. Hypertension. Diabetes. SURGICAL HISTORY : None. ENCOUNTER: Subsequent ACUITY: 1 month PAIN SCORE: Non-responsive. LOCATION: chest FINDINGS: Single AP view of the chest. Left subclavian central venous catheter remains in place. Tracheostomy t ube again seen. Mild right upper lung opacity unchanged. Cardiomediastinal silhouette unchanged. No e vidence of pleural effusion or pneumothorax. CONCLUSION: No significant change. Persistent hazy right upper lung opacity. Hal Finn MD on June 10, 2016 at 8:16 Board Certified Radiologist. This report was verified electronically.
[2016-06-10] MEDS: HEPARIN SODIUM - SQ 10,000 UNITS/ML VIAL SQ SCH ×2 (09:00→21:40)
[2016-06-10] MEDS: SODIUM CHLORIDE 0.9% FLUSH 5 ML FLUSH IV FLUSH SCH ×2 (09:00→21:39)
[2016-06-10] MEDS: ARTIFICIAL TEARS OPTH SOLN 15 ML BTL EACH EYE SCH ×3 (09:00→17:36)
[2016-06-10] MEDS: DOCUSATE SODIUM 100 MG CAP PO SCH ×2 (09:00→21:00)
[2016-06-10] MEDS: DILTIAZEM HCL 60 MG TAB PO SCH ×4 (09:00→21:39)
[2016-06-10] MEDS: EPOETIN ALFA 10,000 UNITS/ML VIAL IV PRN (09:35)
[2016-06-10] MEDS: SODIUM CHLOR 0.9% 1000 ML INJ 1,000 ML IV PRN ×2 (09:36→09:37)
[2016-06-10] MEDS: GENTAMICIN SULFATE (DIALYSIS USE ONLY) 20 MG/2 ML VIAL IV PRN (09:36)
[2016-06-10] MEDS: HEPARIN SODIUM - IV 10,000 UNITS/10 ML VIAL PRN (09:36)
[2016-06-10] MEDS: SODIUM CHLORIDE 0.9% FLUSH 5 ML FLUSH IVF PRN (09:37)
--- NOTE | 2016-06-10 10:42 | HHI.IDPN ---
Subjective Subjective Remarks ID COVERAGE Mr. Short is a 61-year-old male who was admitted on May 05, 2016. Patient's past medical history significant for hypertensive heart disease, hypertension, type 2 diabetes and spinal stenosis. Patient presented to [facility] on the day of admission with history of acute onset of diaphoresis chest pain and syncope. Patient now has retroperitoneal hematoma, IC bleed. ID following for possible sepsis. D/W Dr Kelsey On the vent, has trach in place On CPAP Secretions are white in color CXR 06/09 and 06/10 with new infiltrates LFT are rising Azactam changed to Levaquin yesterday WBC is decreasing No fever BP ok Having HD this morning Antibiotics Levaquin Lines Line sites with no e/o infection Past Medical History reviewed Allergies: Coded Allergies: Penicillin (Verified Allergy, Mild, "I GO CRAZY", 09/01/15) Objective . Vital Signs Date Time Temp Pulse Resp B/P Pulse Ox O2 Delivery O2 Flow Rate FiO2 06/10/16 08:25 100 35 06/10/16 06:00 83 06/10/16 04:10 99 35 06/10/16 04:00 81 06/10/16 04:00 35 06/10/16 04:00 98.6 81 28 164/91 97 06/10/16 02:00 95 06/10/16 01:12 99 35 06/10/16 00:00 81 06/10/16 00:00 97.6 81 28 149/84 98 06/10/16 00:00 35 06/09/16 22:10 100 35 06/09/16 22:00 81 06/09/16 20:00 99.5 87 37 116/60 97 06/09/16 20:00 35 06/09/16 20:00 87 06/09/16 19:10 97 Trach Collar 5.00 40 06/09/16 18:00 86 06/09/16 17:14 40 06/09/16 16:00 99.3 81 28 111/56 98 06/09/16 16:00 81 06/09/16 14:00 89 06/09/16 13:10 98 T-piece 40 06/09/16 12:07 98 35 06/09/16 12:00 35 06/09/16 12:00 81 06/09/16 12:00 99.0 81 22 114/57 99 06/09/16 06/09/16 06/10/16 15:00 23:00 07:00 Intake Total 584 ml 405 ml 299 ml Output Total 60 ml 50 ml 75 ml Balance 524 ml 355 ml 224 ml Intake Oral 0 ml 0 ml IV Total 124 ml 0 ml 0 ml Tube Feeding 360 ml 405 ml 299 ml Tube Irrigant 100 ml Output Urine Total 60 ml 50 ml 75 ml # Bowel Movements 1 0 0 . Laboratory Tests Test 06/10/16 06:36 White Blood Count 11.2 TH/MM3 Red Blood Count 3.25 MIL/MM3 Hemoglobin 9.3 GM/DL Hematocrit 28.7 % Mean Corpuscular Volume 88.2 FL Mean Corpuscular Hemoglobin 28.5 PG Mean Corpuscular Hemoglobin 32.3 % Concent Red Cell Distribution Width 16.4 % Platelet Count 255 TH/MM3 Mean Platelet Volume 8.7 FL Neutrophils (%) (Auto) 76.0 % Lymphocytes (%) (Auto) 9.8 % Monocytes (%) (Auto) 11.6 % Eosinophils (%) (Auto) 2.1 % Basophils (%) (Auto) 0.5 % Neutrophils # (Auto) 8.5 TH/MM3 Lymphocytes # (Auto) 1.1 TH/MM3 Monocytes # (Auto) 1.3 TH/MM3 Eosinophils # (Auto) 0.2 TH/MM3 Basophils # (Auto) 0.1 TH/MM3 CBC Comment DIFF FINAL Differential Comment Laboratory Tests Test 06/10/16 03:35 Sodium Level 132 MEQ/L Potassium Level 5.1 MEQ/L Chloride Level 95 MEQ/L Carbon Dioxide Level 19.1 MEQ/L Anion Gap 18 MEQ/L Blood Urea Nitrogen 111 MG/DL Creatinine 6.00 MG/DL Estimat Glomerular Filtration 12 ML/MIN Rate Random Glucose 220 MG/DL Calcium Level 8.2 MG/DL Total Bilirubin 0.5 MG/DL Aspartate Amino Transf 217 U/L (AST/SGOT) Alanine Aminotransferase 263 U/L (ALT/SGPT) Alkaline Phosphatase 255 U/L Total Protein 7.1 GM/DL Albumin 2.0 GM/DL Imaging Chest X-Ray 06/10/16 0000 Signed Impressions: Service Date/Time: Friday, June 10, 2016 07:53 - CONCLUSION: No significant change. Persistent hazy right upper lung opacity. Hal Finn MD Liver Ultrasound 06/06/16 Signed Impressions: Service Date/Time: Monday, June 06, 2016 14:18 - CONCLUSION: 1. Liver slightly echogenic which can be seen with fatty infiltration. 2. Spleen not visualized. 3. There may be some minimal gallbladder sludge but no cholelithiasis or wall thickening. Carlitos Aguirre MD Upper Extremity Ultrasound 06/05/16 Signed Impressions: Service Date/Time: Sunday, June 05, 2016 11:01 - CONCLUSION: Occlusive thrombus right cephalic vein and left basilic vein Shahid Sin MD Lower Extremity Ultrasound 06/05/16 Signed Impressions: Service Date/Time: Sunday, June 05, 2016 16:05 - CONCLUSION: Normal examination. No evidence of DVT Shahid Sin MD Gastrostomy Tube Placement 06/02/16 Signed Impressions: Service Date/Time: Thursday, June 02, 2016 12:31 - CONCLUSION: Uncomplicated gastrostomy tube placement as above. Isidro Flor MD Catheter Placement X-Ray 06/02/16 Signed Impressions: Service Date/Time: Thursday, June 02, 2016 12:31 - CONCLUSION: 1. Uncomplicated line placement as above. 2. Patient currently has a modified left subclavian PermCath catheter that is being utilized as a temporary access. Isidro Flor MD Brain MRI 05/27/16 Signed Impressions: Service Date/Time: Friday, May 27, 2016 12:17 - CONCLUSION: Multifocal bilateral T2 signal abnormalities in restricted diffusion concerning for bilateral lacunar infarcts. Carlitos Aguirre MD Head CT 05/16/16 Signed Impressions: Service Date/Time: Monday, May 16, 2016 08:30 - CONCLUSION: Suspected bilateral basal ganglia calcifications are unchanged. No evidence of hemorrhage, edema, mass or mass effect. Stephen Quintanilla MD Abdomen/Pelvis CT 05/16/16 Signed Impressions: Service Date/Time: Monday, May 16, 2016 08:39 - CONCLUSION: There are large areas of hemorrhage including the left retroperitoneum and psoas muscle, within the mesentery and a smaller area in the right psoas muscle. They don't appear to be related to the abdominal aorta or the internal iliac arteries. There is a small focal collection hemorrhage adjacent to the left external iliac artery as it enters the pelvis, but I don't believe that is related to the large amount of hemorrhage seen elsewhere. The areas of hemorrhage are large and multi-focal. Stephen Quintanilla MD CT Angiography 05/06/16 0000 Signed Impressions: Service Date/Time: Saturday, May 07, 2016 00:04 - CONCLUSION: 1. Lobar consolidation bilaterally in the lower lobes. 2. Negative for pulmonary embolism. Michael Colbert MD Physical Exam GENERAL: On the vent, looks comfortable on CPAP SKIN: No rashes, ecchymoses or lesions. Cool and dry. HEENT: Pupils equal round and reactive. No scleral icterus. No injection or drainage. NECK: Trachea midline. Trach site ok. Supple, no meningeal signs. CARDIOVASCULAR: HS audible. RESPIRATORY: Breath sounds equal bilaterally decreased in the bases. GASTROINTESTINAL: Abdomen soft, non-tender, nondistended. Obese MUSCULOSKELETAL: Extremities with wrinkling of skin noted. Improving edema NEUROLOGICAL: Off sedation and no response. Psych: could not be assessed IV line sites with no e/o infection. Assessment & Plan Remarks Enterobacter cloacae Pneumonia. - has new infiltrates on CXR - though CXR today looks better than yesterday, ?atelectasis, he has been doing T-piece trials Possible Cath associated UTI. Possible Central line associated Blood Stream Infection. Acute metabolic encephalopathy Acute resp failure on BiPAP, component of STU Acute kidney injury: prerenal from hemodynamic changes, chronic HTN related. DM2 uncontrolled: stress as additional factor. CAD non ischemic cardiomyopathy Anemia: acute due to Retroperitoneal bleed. Receiving blood transfusions. Recs: Continue Levaquin D/W Dr Kelsey Cefepime has been added Follow new C/S Follow clinically. Weaning per [facility] D/W Stephanie García MD Jun 10, 2016 10:42
--- NOTE | 2016-06-10 11:04 | HHI.NPPN ---
Subjective History of Present Illness 61 year old with ARF, CHF, Respiratory failure Additional Remarks Patient s/p Trach and off sedation, remain unresponsive, now on HD. Objective Data Data 06/09/16 06/10/16 19:00 07:00 Intake Total 584 ml 704 ml Output Total 60 ml 125 ml Balance 524 ml 579 ml Intake Oral 0 ml IV Total 124 ml 0 ml Tube Feeding 360 ml 704 ml Tube Irrigant 100 ml Output Urine Total 60 ml 125 ml # Bowel Movements 1 0 Vital Signs Date Time Temp Pulse Resp B/P Pulse Ox O2 Delivery O2 Flow Rate FiO2 06/10/16 10:00 91 06/10/16 08:25 100 35 06/10/16 08:00 35 06/10/16 08:00 99.5 89 34 155/79 96 06/10/16 08:00 89 06/10/16 06:00 83 06/10/16 04:10 99 35 06/10/16 04:00 81 06/10/16 04:00 35 06/10/16 04:00 98.6 81 28 164/91 97 06/10/16 02:00 95 06/10/16 01:12 99 35 06/10/16 00:00 81 06/10/16 00:00 97.6 81 28 149/84 98 06/10/16 00:00 35 06/09/16 22:10 100 35 06/09/16 22:00 81 06/09/16 20:00 99.5 87 37 116/60 97 06/09/16 20:00 35 06/09/16 20:00 87 06/09/16 19:10 97 Trach Collar 5.00 40 06/09/16 18:00 86 06/09/16 17:14 40 06/09/16 16:00 99.3 81 28 111/56 98 06/09/16 16:00 81 06/09/16 14:00 89 06/09/16 13:10 98 T-piece 40 06/09/16 12:07 98 35 06/09/16 12:00 35 06/09/16 12:00 81 06/09/16 12:00 99.0 81 22 114/57 99 -: 06/10/16 0636 06/10/16 0335 Physical Exam General Appearance: Obese Appearance Remarks Intubated and off sedation. Neck Neck Exam: Neck Supple Pulmonary Resp Exam: Rhonchi, Decreased Bases, Diminished Breath Sounds, Poor Inspiratory Effort Cardiology CV Exam: Tachycardia Gastrointestinal/Abdomen GI Exam: Soft, Non-Tender, Distended Extremeties Extremities Exam: Moderate Edema, Pitting Edema, Dependent Edema Neurologic Neuro Exam: Unresponsive Assessment/Plan Problem List: (1) Acute renal failure Plan: Patient has oliguric acute renal failure and remains essentially oliguric. Continue with HD BUN and Creatinine higher multiple CVA Anoxic Encephalopathy S/P Trach. HD now, removing more fluid as tolerated. No improvement neurologically. 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 Plan: Cardiology following (4) Acute hypoxemic respiratory failure Plan: On ventilator (5) Hypertensive emergency Plan: BP improved (6) Diabetes mellitus Plan: Continue monitor blood glucose (7) CAD (coronary artery disease) Plan: Presented with STEMI, follow with cardiology (8) Subsequent ST elevation (STEMI) myocardial infarction of anterior wall Plan: Planned transfer to when stable. No intervention performed here. Problem Qualifiers (1) Acute renal failure: Qualified Code: N17.0 - Acute renal failure with tubular necrosis (2) Diabetes mellitus: Qualified Code: E13.8 - Diabetes mellitus of other type with complication, unspecified fci insulin use status (3) CAD (coronary artery disease): Qualified Code: I25.10 - Coronary artery disease, angina presence unspecified, unspecified vessel or lesion type, unspecified whether [place] or transplanted heart Renee Bhat MD Jun 10, 2016 11:04
--- NOTE | 2016-06-10 11:30 | HHI.CCPN ---
Subjective Remarks/Hospital Course 61-year-old AA male. Date of admission 05/05/2016. Date of consultation 2016. Past medical history includes hypertensive heart disease, hypertension, diabetes mellitus type 2 and spinal stenosis. He presented to [facility] today with history of acute onset of diaphoresis, chest pain and syncope. Her documentation, Chest pain was 7 out of 10 without radiation. Later in the hospital physician, patient did have ST elevation anterior septal leads. I he had a cardiac catheterization in 2009 which revealed moderate coronary disease which documented 50-60% stenosis in the LAD diagonals 1 and 2. Recommended medical management at that time. Dr. Marcano was notified and proceed to the cardiac catheter lab. Patient sees heparin and one aspirin prior to cardiac catheterization. During heart catheterization,, patient became hypertensive, tachypneic, hypoxic and agitated including abdominal pain with nausea and vomiting. Patient was intubated by Dr. Simon and dispensed transferred to room 505a. Currently hemodynamic stable on a propofol drip. 05/06: Patient required additional sedation overnight. Was moving all 4 extremity spontaneously and strongly. Potassium is replaced overnight along with magnesium. This afternoon approximate 4 PM, patient went into a sinus bradycardia in the 40s. RN cannot locate pulse and possibly went into a PEA arrest. Patient received CPR for approximately 2 minutes. ROSC return immediately. Received 1 mg of epinephrine IV. Blood pressure was 240 systolic. Saturations were above 90% the entire time. Dr. Marcano was made aware. No new recommendations at this time. Electrolytes currently pending. Patient is currently hemodynamic stable and an arterial line/left radial has been placed 05/07: no improvement in delirium or mental status. spiking low grade fevers. 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 CT surgery consulted and declined to operate here: he will need referral once stabilized. fio2 requirements still high. CT chest also with evidence of bibasilar consolidation which may be aspiration pneumonitis vs. pneumonia now that we are 48h out from initial presentation and now spiking fevers. 05/08: delirium persists. continues to spike fevers. jolly cultured yesterday without results yet. holding sedation today. 05/09: delirium slightly improved. waking up on SAT, weakly following commands. cultures still NGTD. hypoxia slightly improved. 05/10: delirium improving. weakly following commands still. cultures still NGTD. fevers persist, although fever curve appears to be improving. hypoxia continues to improve. still remains very critically ill. 05/11: Tmax 99.9. Currently 99.1. Tolerating tube feeding. One bowel movement. Continues to have difficulty weaning ventilator. 05/12: Currently afebrile. Tolerating tube feeding. Positive BM. Increased FiO2 from 45-60%. +1 L. Arousable on sedation vacation and weakly follows commands. 05/13: Remains intubated, sedated. FiO2 now reduced to 45% (was 55% today am). Start weaning trials after starting Precedex. To control BP May use Cardene, given anomalous RCA 05/14: Extubated yesterday, remained on BiPAP overnight. Intermittently agitated. Following commands to me today, while on BiPAP. Remains on Cardene infusion for uncontrolled hypertension. Urine output 4.7 L in 24 hours 05/15: On 3 L nasal cannula. Fever trending down, breathing more comfortably. Able to communicate. Discussed with Dr. Marcano. Dr. Pendleton will be available tomorrow, will probably need transfer to [facility] for RCA unroofing 05/16: Acutely hypotensive overnight with tachycardia. MAP was 55 with greater than 130s. Received 3.5 L of normal saline bolus with improvement in blood pressure and heart rate. Lethargic on BiPAP. ABG pending, HB dropped from 10.9 to 7.8. No obvious source of bleeding. STAT 2U PRBC. STAT CT head and CT abd pelvis. R/O ICH or RP bleed. Patient received only 5mg Nicci at 2100 yesterday, no other sedation. Last dose of Lovenox was at 211, held now 05/17: Developed Hemorrhagic shock from large retroperitoneal hemorrhage night to 05/15/16. Stabilized after 3 units of PRBC and protamine. Hemoglobin 8.7 today. Remain encephalopathy and unresponsive yesterday. MRI 05/16/16 shows small punctate white matter infarcts, bilateral basal ganglia infarcts. Urology consult pending. Antiplatelet drugs on hold. Now with anuria from ATN secondary to shock. Nephrology consult pending 05/18: Developed sudden onset bradycardia in 40s, with acute hypotension yesterday evening around 5 PM. ACLS protocol initiated (did not arrest or lose pulse). Received multiple epinephrine, bicarbonate calcium and fluid boluses. Patient was placed on dopamine 20 mics per KG per minute, Levophed 20 mics per KG per minute, epinephrine 2.5 mics per minute and eventually stabilized with systolic blood pressure reading 120s. Hemoglobin on ABG was 7 and emergently transfused 3 units PRBC and 2 units FFP. Lab hemoglobin came back at 6.8. Patient also was profoundly acidemic with pH of 7.16. Patient received total 3 A of bicarbonate and bicarbonate infusion was started, minute ventilation was also increased. 2: MAXIMUM TEMPERATURE 100.3. Currently 99.5. No bowel movement. Tube feeds were restarted. FiO2 50%. PEEP at 8. 05/20: MAXIMUM TEMPERATURE 100.9. Positive BM. Tube feeds were restarted today. PT plateau. FiO2 down to 85%. Semiemergent bronchoscopy yesterday for right upper lobe airway obstruction. Resolved 05/21: MAXIMUM TEMPERATURE 100.7. Currently 99.6. Somewhat tachycardic. 2 bowel movements overnight. Tolerating tube feeds at 30 cc an hour. Had episode of emesis overnight. 05/22: Remains sedated, orally intubated on mechanical ventilation. 05/23: Remains sedated, orally intubated on mechanical ventilation. Dialyzed yesterday. 05/24: Remains sedated/encephalopathic, orally intubated on mechanical ventilation. Tolerating tube feeds. Awaiting dialysis 05/25: Remains encephalopathic, orally intubated on mechanical ventilation. Off sedation for 2 days now. PEEP decreased to to +7 10 No acute events overnight. For HD today. Afebrile. On PRVC/AC 20, TV 550, PEEP: 6, IT: 1.2 and FIO2 35%. On no sedation. Tolerating tube feeds. Subjective 05/27: Tmax 99.8. Currently 99.1. FiO2 down to 35%. Tolerating tube feeding. Positive BM. MRI brain reveals bilateral lacunar infarcts. Will likely need trach 05/28: Afebrile. The patient continues on CPAP trials 28/09 FiO2 of 35%, maintaining O2 sat at 97%. 05/29: The patient continues on CPAP trials. The patient underwent hemodialysis today. The patient is noted to be a medium dose sliding scale insulin with persistent hyperglycemia will increase to high-dose insulin sliding scale. Per hematology the patient was placed on heparin infusion initially, then discontinued.. 05/30 Tmax 100.1. S/P initiation of therapeutic anticoagulation ,serial hemoglobin stable, continue to monitor every 12 hours. Patient continues to fail CPAP trials, plan for tracheostomy, Discussed with patient spouse, she desires a trach and PEG, at this time. 05/31 Tmax 100.1. Maintaining CPAP trials occasionally 3-4 hours. Discussed with family risk and benefits of tracheostomy. Discussed with family MRI results, EEG results. Family requests continue aggressive support. Plan for percutaneous tracheostomy . GI consulted for PEG placement. 06/01 Percutaneous tracheostomy performed today. Plan for patient to go to IR for new Vas-Cath placement per nephrology. 06/02 Patient s/p trach yesterday. For PEG tube placement and HD today today. On no sedation. T: 100.2 06/03 Patient s/p PEG tube placement and HD yesterday with removal 5L. Afebrile. Remains off sedation. 06/04 no acute events overnight. Tolerating C Pap. Will place on T piece 2-4 hours. No change in neuro exam 06/05 No acute events overnight. Tolerated CPAP/TP's trials for 4 hrs yesterday. Afebrile. For HD today 06/06 Patient is on ventilator via trach spiked fever with T: 101.0 last night. s /p HD yesterday with removal 3L. 06/07 Patient s/p HD yesterday with removal 3L. T: 100.8 last night. On ventilator via trach remains encephalopathic. 06/08: Currently getting hemodialysis, no fever white count trending down. Slight improvement in neuro exam. Partial eye-opening to central pain. Withdraws bilateral upper extremity slightly to pain 06/09: No acute events overnight. Tolerated TP yesterday, increase TP time to 8- 10 hours today. at bedside 06/10: Tachypneic today, versus support increased to 15 to breathing 30-35 breaths per minute. Chest x-ray from yesterday and today showing the right upper lobe infiltrates. New sputum culture ordered. Levaquin will be continued , I have added cefepime and discussed with ID Objective Vital Signs Date Time Temp Pulse Resp B/P Pulse Ox O2 Delivery O2 Flow Rate FiO2 06/10/16 10:00 91 06/10/16 08:25 100 35 06/10/16 08:00 99.5 34 155/79 06/09/16 19:10 Trach Collar 5.00 Intake and Output 06/09/16 06/09/16 06/10/16 08:00 16:00 00:00 Intake Total 650 ml 584 ml 405 ml Output Total 50 ml 60 ml 50 ml Balance 600 ml 524 ml 355 ml Result Diagram: 06/10/16 0636 06/10/16 0335 Imaging Last Impressions Liver Ultrasound 06/06/16 0000 Signed Impressions: Service Date/Time: Monday, June 06, 2016 14:18 - CONCLUSION: 1. Liver slightly echogenic which can be seen with fatty infiltration. 2. Spleen not visualized. 3. There may be some minimal gallbladder sludge but no cholelithiasis or wall thickening. Carlitos Aguirre MD Chest X-Ray 06/06/16 0000 Signed Impressions: Service Date/Time: Monday, June 06, 2016 08:23 - CONCLUSION: Improving aeration. Satisfactory dialysis catheter positioning. Low Blood MD Upper Extremity Ultrasound 06/05/16 0000 Signed Impressions: Service Date/Time: Sunday, June 05, 2016 11:01 - CONCLUSION: Occlusive thrombus right cephalic vein and left basilic vein Shahid Sin MD Lower Extremity Ultrasound 06/05/16 0000 Signed Impressions: Service Date/Time: Sunday, June 05, 2016 16:05 - CONCLUSION: Normal examination. No evidence of DVT Shahid Sin MD Gastrostomy Tube Placement 06/02/16 0000 Signed Impressions: Service Date/Time: Thursday, June 02, 2016 12:31 - CONCLUSION: Uncomplicated gastrostomy tube placement as above. Isidro Flor MD Catheter Placement X-Ray 06/02/16 0000 Signed Impressions: Service Date/Time: Thursday, June 02, 2016 12:31 - CONCLUSION: 1. Uncomplicated line placement as above. 2. Patient currently has a modified left subclavian PermCath catheter that is being utilized as a temporary access. Isidro Flor MD Brain MRI 05/27/16 0000 Signed Impressions: Service Date/Time: Friday, May 27, 2016 12:17 - CONCLUSION: Multifocal bilateral T2 signal abnormalities in restricted diffusion concerning for bilateral lacunar infarcts. Carlitos Aguirre MD Head CT 05/16/16 0000 Signed Impressions: Service Date/Time: Monday, May 16, 2016 08:30 - CONCLUSION: Suspected bilateral basal ganglia calcifications are unchanged. No evidence of hemorrhage, edema, mass or mass effect. Stephen Quintanilla MD Abdomen/Pelvis CT 05/16/16 0000 Signed Impressions: Service Date/Time: Monday, May 16, 2016 08:39 - CONCLUSION: There are large areas of hemorrhage including the left retroperitoneum and psoas muscle, within the mesentery and a smaller area in the right psoas muscle. They don't appear to be related to the abdominal aorta or the internal iliac arteries. There is a small focal collection hemorrhage adjacent to the left external iliac artery as it enters the pelvis, but I don't believe that is related to the large amount of hemorrhage seen elsewhere. The areas of hemorrhage are large and multi-focal. Stephen Quintanilla MD CT Angiography 05/06/16 0000 Signed Impressions: Service Date/Time: Saturday, May 07, 2016 00:04 - CONCLUSION: 1. Lobar consolidation bilaterally in the lower lobes. 2. Negative for pulmonary embolism. Michael Colbert MD Objective Remarks GENERAL: 61-year-old AA male, morbidly obese on PSV via trach SKIN: Warm and dry. No rash HEAD: Atraumatic. Normocephalic. EYES: Pupils equal and round around 2-3 mm bilaterally and slightly reactive. No scleral icterus. No injection or drainage. ENT: No nasal bleeding or discharge. NECK: JVD difficult to assess due to body habitus. s/p Trach, no bleeding from site CARDIOVASCULAR: Tachycardic nl S1, S2. Without murmur RESPIRATORY: Diminished breath sounds bilaterally due to body habitus. Breath sounds equal bilaterally. Tachypneic on PSV GASTROINTESTINAL: Abdomen obese, non-tender, protuberant, distended. no guarding. Peg tube in place MUSCULOSKELETAL: Extremities with 1+ edema NEUROLOGICAL: Patient remains unresponsive, off sedation since morning of 05/23. Pupils are sluggishly reactive. Bilateral upper extremity mildl withdrawal to pain. +ve Corneal reflex, gag reflex. Partial eye opening to sternal rub A/P Assessment and Plan Neuro/Psych: Bilateral basal ganglia infarcts, small punctate white matter infarcts on MRI Metabolic encephalopathy Patient remains unresponsive. Has been off sedation > [address] Felix. MRI of the brain done 05/16/16 shows small punctate white matter infarcts, bilateral basal ganglia infarcts. Repeat MRI brain 05/[address] 05/08, 05/16: negative acute. EEG 05/12 revealed generalized slowing right greater than left. No epileptiform activity. EEG 05/16: No seizure, severe encephalopathy. EEG 06/08 moderate encephalopathy, no seizure CV: Hemorrhagic shock due to left retroperitoneal hemorrhage-shock resolved Severe bradycardia and hypotension 05/17/16 most likely secondary to recurrent bleed Aberrant RCA off LCC Nonsustained V. tach single episode Diastolic heart failure Coronary artery disease Nonischemic cardiomyopathy secondary to hypertensive heart disease Hypertensive emergency On Labetalol 200 every 8, Hydralazine 50mg Q 8hrs, Cardizem 60mg QID Status post cardiac catheterization by Dr. Moy. No intervention performed. Known coronary artery artery disease to the first and second diagonals the LAD. Aberrant RCA off left coronary cups. Transfer to fo RCA for unroofing -on hold due to lack of improvement in neuro status Aspirin 81 mg on hold due to RP hemorrhage. (Plavix DC d 05/15/[address] Marcano at that time in anticipation of probable unroofing surgery) Lipitor 20 mg by mouth daily held in light of elevated liver function tests 05/30 Short run 8-9 beats V-tach last evening with resolution, no intervention Pulm: Acute hypoxemic respiratory failure-extubated 05/13/16, re intubated 05/16/16 for airway protection New right upper lobe infiltrate Likely underlying STU Previous Right upper lobe mucus plugging Mucus plugging versus new RUL pneumonia-check CT of the chest today to to -May need bronchoscopy Cefepime added, sputum culture sent S/P percutaneous tracheostomy. 8.0 Shiley 06/01 Ventilator bundle, SBT/TP's daily as tolerated. TP up to 8-10 hours daily and CPAP/PS at night Bronchodilator therapy every 4 hours and as needed. Pulm toilet, trach care CXR 06/06: Improved aeration of lungs. GI: S/P large left retroperitoneal hemorrhage 05/15 Hypoalbuminemia Elevated LFT's Monitor LFT's, US liver: Liver slightly echogenic which can be seen with fatty infiltration. Minimal gallbladder sludge but no cholelithiasis or wall thickening. Continue TF via PEG (Nepro at 50 cc an hour) Continue Protonix for GI prophylaxis Colace/Senokot twice a day for bowel regimen /Renal: Acute kidney failure due to ATN Anuria Chaudhry for accurate I's and O's in a critically ill patient HD started 05/17/16 , Sunday. Renal- Dr. Mcintosh. HD per him. Endo: Diabetes mellitus type 2 Hyperglycemia SSI medium scale with accuchecks Q6 Heme: s/p Acute blood loss anemia with shock Large left retroperitoneal hemorrhage Right cephalic superficial thrombus left basilic thrombus/right PT THROMBUS Normocytic anemia Leukocytosis Monitor CBC, Heme is following. On Epogen with HD Hematology on board, Transfused 3 units PRBC stat on 05/16/16 Transfused 3 units PRBC and 2 units FFP Transfuse 1 unit PRBCs 05/19. Therapeutic Lovenox discontinued, aspirin placed on hold 75 mg IV protamine slow infusion (D/W with Dr. mcintosh) on 05/16/16. Was on Lovenox 150 mg subcutaneous twice a day-DCd 05/16/16 ID: Aspiration pneumonia/Enterobacter aerogenes in sputum Leukocytosis -Mucus plugging versus new RUL pneumonia-check CT of the chest today to to -Cefepime added 06/10, sputum culture sent. Discussed with Dr. Vergara -On Aztreonam, ID Dr. Mariee . Monitor for signs of infection( Fever, WBC) -Pancultured 06/06 ( Blood, sputum, urine) -Patient s/p Cefepime and Flagyl course. Pertinent cultures 05/07 - blood cultures 2 - negative 05/08 - sputum - negative 05/08 - urine - negative 05/08 - blood cultures - negative 05/13 - blood cx negative 05/13 - urine cx negative 05/16 - sputum Enterobacter aerogenes 05/16 - urine neg 131 - blood cultures neg 05/18 - blood cultures- negative 05/19 - bronchoscopy - Yeast 05/27 Sputum Enterobacter 06/02 Sputum: Enterobacter Urine cx: C. Glabrata MSK: History of spinal stenosis/laminectomy/left total knee replacement and left ring finger amputation PT evaluate and treat Access - Peripheral IV;'s Prophylaxis -GI - Protonix -DVT -Heparin 5000 SQ BID, SCD on L leg -06/05 Doppler US LE: No DVT -06/05 Doppler US UE: Right cephalic and left basilic occlusive thrombus- on SQ heparin per Heme. -05/25 Doppler US UE: Occlusive thrombus in the right distal cephalic vein. Nonocclusive thrombus in the left mid and distal basilic veins. Critical care 30 minutes Tahmina Kelsey MD Jun 10, 2016 11:30
[2016-06-10] MEDS: CEFEPIME INJ 1,000 MG in SODIUM CHLORIDE 0.9% INJ 100 ML IV SCH (12:38)
--- NOTE | 2016-06-10 16:37 | RADRPT ---
EXAM DATE/TIME: 06/10/2016 16:11 [facility] COMPARISON: CHEST SINGLE AP, June 10, 2016, 7:53. INDICATIONS : Evaluate right upper lobe infiltrate. RADIATION DOSE: 19.79 CTDIvol (mGy) MEDICAL HISTORY : Cardiovascular disease. Hypertension. Diabetes mellitus type 2. SURGICAL HISTORY : None. ENCOUNTER: Initial ACUITY: 1 day PAIN SCALE: Non-responsive LOCATION: chest TECHNIQUE: Volumetric scanning of the chest was performed. Using automated exposure control and adjustment of t he mA and/or kV according to patient size, radiation dose was kept as low as reasonably achievable to obtain optimal diagnostic quality images. FINDINGS: LUNGS: Patchy densities right upper lobe, left upper lobe and superior segment left and right lower lobe. Th ere is thickening of the right major fissure. PLEURAE: There is no pleural thickening or pleural effusion. MEDIASTINUM: The heart and great vessels demonstrate no acute abnormality. There is no mediastinal or hilar lymph adenopathy. AXILLAE: Within normal limits. No lymphadenopathy. Bilateral gynecomastia. MUSCULOSKELETAL: Within normal limits for patient age. MISCELLANEOUS: The visualized upper abdominal organs demonstrate no acute abnormality. Tracheostomy tube in good pos ition. CONCLUSION: 1. Patchy infiltrates right upper lobe, left upper lobe and superior segments of the lower lobes. 2. Thickening of the right major fissure. 3. Bilateral gynecomastia. 4. Coronary artery calcifications. Carlitos Aguirre MD on June 10, 2016 at 16:33 Board Certified Radiologist. This report was verified electronically.
[2016-06-11] VITALS (18 sets, daily range): BP systolic 133–170; BP diastolic 77–95; PULSE 80–105; RESP 21–35; TEMP 98.9–100.5; O2SAT 93–100
[2016-06-11] MEDS: INSULIN NovoLIN REGULAR SUPPLEMENTAL SCALE SQ SCH ×4 (02:37→18:00)
[2016-06-11] MEDS: CHLORHEXIDINE GLUCONATE 2 % 1 PACK (2 CLOTHS) TOP SCH (04:00)
[2016-06-11] MEDS: METOCLOPRAMIDE HCL 10 MG/2 ML VIAL IV PUSH SCH ×3 (04:14→20:49)
[2016-06-11] MEDS: LABETALOL HCL 200 MG TAB PO SCH ×3 (04:15→20:49)
[2016-06-11] MEDS: hydrALAZINE HCL 25 MG TAB PO SCH ×3 (04:15→20:49)
--- NOTE | 2016-06-11 05:04 | RADRPT ---
EXAM DATE/TIME: 06/11/2016 03:12 [facility] COMPARISON: CHEST SINGLE AP, June 10, 2016, 7:53. INDICATIONS : Shortness of breath, possible pulmonary disease. MEDICAL HISTORY : Myocardial infarction. Congestive heart failure. Hypertension. Diabetes SURGICAL HISTORY : None. ENCOUNTER: Subsequent ACUITY: 1 month PAIN SCORE: Non-responsive. LOCATION: Bilateral chest FINDINGS: Tracheostomy tube and left subclavian catheter are again seen. There is patchy left lower lobe consol idation noted. No effusions. CONCLUSION: No significant change has occurred. Ronald Tinsley MD on June 11, 2016 at 5:02 Board Certified Radiologist. This report was verified electronically.
[2016-06-11] MEDS: RESP: ALBUTEROL 2.5 MG/IPRATROPIUM 0.5 MG NEB (PRN) INH ×5 (05:35→19:23)
[2016-06-11] MEDS: DOCUSATE SODIUM 100 MG CAP PO SCH ×2 (07:25→20:48)
[2016-06-11] MEDS: HEPARIN SODIUM - SQ 10,000 UNITS/ML VIAL SQ SCH ×2 (07:26→20:48)
[2016-06-11] MEDS: DILTIAZEM HCL 60 MG TAB PO SCH ×4 (07:26→20:48)
[2016-06-11] MEDS: SODIUM CHLORIDE 0.9% FLUSH 5 ML FLUSH IV FLUSH SCH ×2 (07:27→20:48)
[2016-06-11] MEDS: ARTIFICIAL TEARS OPTH SOLN 15 ML BTL EACH EYE SCH ×3 (07:27→16:37)
[2016-06-11] MEDS: CHLORHEXIDINE 0.12% (ORAL KIT) 15 ML CUP MT SCH ×2 (07:36→20:00)
[2016-06-11 07:47] LABS: AUTOMATED NEUTROPHIL # 10.1 TH/MM3 (1.8-7.7); BASOPHIL # 0.1 TH/MM3 (0-0.2); BASOPHIL % 0.5 % (0.0-2.0); EOSINOPHIL # 0.1 TH/MM3 (0-0.4); EOSINOPHIL % 1.1 % (0.0-4.0); HEMATOCRIT 31.7 % (39.0-51.0); HEMO FLAGS DIFF FINAL; LYMPH % 7.8 % (9.0-44.0); MEAN CELL VOLUME 88.8 FL (80.0-100.0); MEAN CORPUSCULAR HEMOGLOBIN 28.4 PG (27.0-34.0); MONO % 11.3 % (0.0-8.0); NEUT % 79.3 % (16.0-70.0); PLATELET COUNT 284 TH/MM3 (150-450); RED BLOOD COUNT 3.57 MIL/MM3 (4.50-5.90); RED CELL DISTRIBUTION WIDTH 16.4 % (11.6-17.2); WHITE BLOOD COUNT 12.8 TH/MM3 (4.0-11.0)
[2016-06-11 08:08] LABS: ALKALINE PHOSPHATASE 231 U/L (45-117); ALT (GPT) 246 U/L (12-78); ANION GAP 15 MEQ/L (5-15); AST (GOT) 166 U/L (15-37); BICARBONATE 26.6 MEQ/L (21.0-32.0); BLOOD UREA NITROGEN 89 MG/DL (7-18); CHLORIDE 95 MEQ/L (98-107); GLOMERULAR FILTRATION RATE 14 ML/MIN (>89); MAGNESIUM 2.3 MG/DL (1.5-2.5); POTASSIUM 4.1 MEQ/L (3.5-5.1); SODIUM (NA) 137 MEQ/L (136-145); TOTAL BILIRUBIN ADULT 0.6 MG/DL (0.2-1.0)
--- NOTE | 2016-06-11 09:19 | HHI.IDPN ---
Subjective Subjective Remarks ID COVERAGE Mr. Short is a 61-year-old male who was admitted on May 05, 2016. Patient's past medical history significant for hypertensive heart disease, hypertension, type 2 diabetes and spinal stenosis. Patient presented to [facility] on the day of admission with history of acute onset of diaphoresis chest pain and syncope. Patient now has retroperitoneal hematoma, IC bleed. ID following for possible sepsis. 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 Vital Signs Date Time Temp Pulse Resp B/P Pulse Ox O2 Delivery O2 Flow Rate FiO2 06/11/16 08:48 35 06/11/16 08:00 98.9 89 27 165/88 94 06/11/16 08:00 35 06/11/16 08:00 89 06/11/16 06:00 91 06/11/16 04:10 95 35 06/11/16 04:00 35 06/11/16 04:00 97 06/11/16 04:00 100.5 97 32 170/89 95 06/11/16 02:00 105 06/11/16 01:12 98 35 06/11/16 00:00 35 06/11/16 00:00 86 06/11/16 00:00 99.6 80 29 141/82 93 06/10/16 22:09 94 35 06/10/16 22:00 83 06/10/16 20:00 35 06/10/16 20:00 100.8 85 35 143/75 93 06/10/16 19:02 98 35 06/10/16 18:00 86 06/10/16 17:51 94 35 06/10/16 16:00 35 06/10/16 16:00 85 06/10/16 16:00 100.1 85 20 148/88 97 06/10/16 15:45 97 06/10/16 14:00 88 06/10/16 12:36 99 35 06/10/16 12:00 35 06/10/16 12:00 99.9 112 30 128/92 99 06/10/16 12:00 112 06/10/16 10:00 91 06/10/16 06/10/16 06/11/16 14:59 22:59 06:59 Intake Total 736 ml 575 ml 537 ml Output Total 5075 ml 0 ml 75 ml Balance -4339 ml 575 ml 462 ml Intake Oral 0 ml 0 ml IV Total 104 ml 0 ml 0 ml Tube Feeding 452 ml 575 ml 537 ml Tube Irrigant 180 ml Output Urine Total 75 ml 0 ml 75 ml Hemodialysis 5000 ml # Bowel Movements 0 0 1 . Laboratory Tests Test 06/10/16 06/11/16 06:36 06:07 White Blood Count 11.2 TH/MM3 12.8 TH/MM3 Red Blood Count 3.25 MIL/MM3 3.57 MIL/MM3 Hemoglobin 9.3 GM/DL 10.1 GM/DL Hematocrit 28.7 % 31.7 % Mean Corpuscular Volume 88.2 FL 88.8 FL Mean Corpuscular Hemoglobin 28.5 PG 28.4 PG Mean Corpuscular Hemoglobin 32.3 % 32.0 % Concent Red Cell Distribution Width 16.4 % 16.4 % Platelet Count 255 TH/MM3 284 TH/MM3 Mean Platelet Volume 8.7 FL 8.8 FL Neutrophils (%) (Auto) 76.0 % 79.3 % Lymphocytes (%) (Auto) 9.8 % 7.8 % Monocytes (%) (Auto) 11.6 % 11.3 % Eosinophils (%) (Auto) 2.1 % 1.1 % Basophils (%) (Auto) 0.5 % 0.5 % Neutrophils # (Auto) 8.5 TH/MM3 10.1 TH/MM3 Lymphocytes # (Auto) 1.1 TH/MM3 1.0 TH/MM3 Monocytes # (Auto) 1.3 TH/MM3 1.4 TH/MM3 Eosinophils # (Auto) 0.2 TH/MM3 0.1 TH/MM3 Basophils # (Auto) 0.1 TH/MM3 0.1 TH/MM3 CBC Comment DIFF FINAL DIFF FINAL Differential Comment Laboratory Tests Test 06/10/16 06/11/16 03:35 06:07 Sodium Level 132 MEQ/L 137 MEQ/L Potassium Level 5.1 MEQ/L 4.1 MEQ/L Chloride Level 95 MEQ/L 95 MEQ/L Carbon Dioxide Level 19.1 MEQ/L 26.6 MEQ/L Anion Gap 18 MEQ/L 15 MEQ/L Blood Urea Nitrogen 111 MG/DL 89 MG/DL Creatinine 6.00 MG/DL 5.22 MG/DL Estimat Glomerular Filtration 12 ML/MIN 14 ML/MIN Rate Random Glucose 220 MG/DL 221 MG/DL Calcium Level 8.2 MG/DL 9.1 MG/DL Total Bilirubin 0.5 MG/DL 0.6 MG/DL Aspartate Amino Transf 217 U/L 166 U/L (AST/SGOT) Alanine Aminotransferase 263 U/L 246 U/L (ALT/SGPT) Alkaline Phosphatase 255 U/L 231 U/L Total Protein 7.1 GM/DL 7.5 GM/DL Albumin 2.0 GM/DL 2.7 GM/DL Magnesium Level 2.3 MG/DL Microbiology Date/Time Procedure Status Source Growth 06/10/16 14:40 Gram Stain - Final Resulted Sputum Endotracheal 06/10/16 14:40 Sputum Culture Resulted Sputum Endotracheal Pending Imaging Chest X-Ray 06/10/16 0000 Signed Impressions: Service Date/Time: Friday, June 10, 2016 07:53 - CONCLUSION: No significant change. Persistent hazy right upper lung opacity. Hal Finn MD Liver Ultrasound 06/06/16 0000 Signed Impressions: Service Date/Time: Monday, June 06, 2016 14:18 - CONCLUSION: 1. Liver slightly echogenic which can be seen with fatty infiltration. 2. Spleen not visualized. 3. There may be some minimal gallbladder sludge but no cholelithiasis or wall thickening. Carlitos Aguirre MD Upper Extremity Ultrasound 06/05/16 0000 Signed Impressions: Service Date/Time: Sunday, June 05, 2016 11:01 - CONCLUSION: Occlusive thrombus right cephalic vein and left basilic vein Shahid Sin MD Lower Extremity Ultrasound 06/05/16 0000 Signed Impressions: Service Date/Time: Sunday, June 05, 2016 16:05 - CONCLUSION: Normal examination. No evidence of DVT Shahid Sin MD Gastrostomy Tube Placement 06/02/16 0000 Signed Impressions: Service Date/Time: Thursday, June 02, 2016 12:31 - CONCLUSION: Uncomplicated gastrostomy tube placement as above. Isidro Flor MD Catheter Placement X-Ray 06/02/16 0000 Signed Impressions: Service Date/Time: Thursday, June 02, 2016 12:31 - CONCLUSION: 1. Uncomplicated line placement as above. 2. Patient currently has a modified left subclavian PermCath catheter that is being utilized as a temporary access. Isidro Flor MD Brain MRI 05/27/16 0000 Signed Impressions: Service Date/Time: Friday, May 27, 2016 12:17 - CONCLUSION: Multifocal bilateral T2 signal abnormalities in restricted diffusion concerning for bilateral lacunar infarcts. Carlitos Aguirre MD Head CT 05/16/16 0000 Signed Impressions: Service Date/Time: Monday, May 16, 2016 08:30 - CONCLUSION: Suspected bilateral basal ganglia calcifications are unchanged. No evidence of hemorrhage, edema, mass or mass effect. Stephen Quintanilla MD Abdomen/Pelvis CT 05/16/16 0000 Signed Impressions: Service Date/Time: Monday, May 16, 2016 08:39 - CONCLUSION: There are large areas of hemorrhage including the left retroperitoneum and psoas muscle, within the mesentery and a smaller area in the right psoas muscle. They don't appear to be related to the abdominal aorta or the internal iliac arteries. There is a small focal collection hemorrhage adjacent to the left external iliac artery as it enters the pelvis, but I don't believe that is related to the large amount of hemorrhage seen elsewhere. The areas of hemorrhage are large and multi-focal. Stephen Quintanilla MD CT Angiography 05/06/16 0000 Signed Impressions: Service Date/Time: Saturday, May 07, 2016 00:04 - CONCLUSION: 1. Lobar consolidation bilaterally in the lower lobes. 2. Negative for pulmonary embolism. Michael Colbert MD Physical Exam GENERAL: On the vent, looks comfortable on CPAP SKIN: No rashes, ecchymoses or lesions. Cool and dry. HEENT: Pupils equal round and reactive. No scleral icterus. No injection or drainage. NECK: Trachea midline. Trach site ok. Supple, no meningeal signs. CARDIOVASCULAR: HS audible. RESPIRATORY: Coarse [place] GASTROINTESTINAL: Abdomen soft, non-tender, nondistended. Obese MUSCULOSKELETAL: Extremities with wrinkling of skin noted. Improving edema NEUROLOGICAL: Off sedation and no response. Psych: could not be assessed IV line sites with no e/o infection. Assessment & Plan Remarks Enterobacter cloacae Pneumonia. - has new infiltrates on CXR - though CXR today looks better than yesterday, ?atelectasis, he has been doing T-piece trials Possible Cath associated UTI. Possible Central line associated Blood Stream Infection. Acute metabolic encephalopathy Acute resp failure on BiPAP, component of STU Acute kidney injury: prerenal from hemodynamic changes, chronic HTN related. DM2 uncontrolled: stress as additional factor. CAD non ischemic cardiomyopathy Anemia: acute due to Retroperitoneal bleed. Receiving blood transfusions. Recs: Continue Levaquin Continue Cefepime Monitor temps Follow new C/S Monitor progress Weaning per CCM Stephanie Vergara MD Jun 11, 2016 09:19
[2016-06-11] MEDS: CEFEPIME INJ 1,000 MG in SODIUM CHLORIDE 0.9% INJ 100 ML IV SCH (12:35)
--- NOTE | 2016-06-11 13:30 | HHI.NPPN ---
Subjective History of Present Illness 61 year old with ARF, CHF, Respiratory failure Additional Remarks Patient s/p Trach and off sedation, remain unresponsive, clinically same. Objective Data Data 06/10/16 06/11/16 19:00 07:00 Intake Total 736 ml 1112 ml Output Total 5075 ml 75 ml Balance -4339 ml 1037 ml Intake Oral 0 ml IV Total 104 ml 0 ml Tube Feeding 452 ml 1112 ml Tube Irrigant 180 ml Output Urine Total 75 ml 75 ml Hemodialysis 5000 ml # Bowel Movements 0 1 Vital Signs Date Time Temp Pulse Resp B/P Pulse Ox O2 Delivery O2 Flow Rate FiO2 06/11/16 13:04 97 35 06/11/16 12:00 35 06/11/16 12:00 93 06/11/16 12:00 99.0 93 21 161/95 98 06/11/16 10:00 83 06/11/16 09:17 99 35 06/11/16 08:48 35 06/11/16 08:00 83 06/11/16 08:00 98.9 89 27 165/88 94 06/11/16 08:00 35 06/11/16 08:00 89 06/11/16 06:00 91 06/11/16 04:10 95 35 06/11/16 04:00 35 06/11/16 04:00 97 06/11/16 04:00 100.5 97 32 170/89 95 06/11/16 02:00 105 06/11/16 01:12 98 35 06/11/16 00:00 35 06/11/16 00:00 86 06/11/16 00:00 99.6 80 29 141/82 93 06/10/16 22:09 94 35 06/10/16 22:00 83 06/10/16 20:00 35 06/10/16 20:00 100.8 85 35 143/75 93 06/10/16 19:02 98 35 06/10/16 18:00 86 06/10/16 17:51 94 35 06/10/16 16:00 35 06/10/16 16:00 85 06/10/16 16:00 100.1 85 20 148/88 97 06/10/16 15:45 97 06/10/16 14:00 88 -: 06/11/16 0607 06/11/16 0607 Microbiology 06/10/16 Gram Stain - Final, Resulted 06/10/16 Sputum Culture, Resulted Pending Physical Exam General Appearance: Obese Appearance Remarks Intubated and off sedation. Neck Neck Exam: Neck Supple Pulmonary Resp Exam: Rhonchi, Decreased Bases, Diminished Breath Sounds, Poor Inspiratory Effort Cardiology CV Exam: Tachycardia Gastrointestinal/Abdomen GI Exam: Soft, Non-Tender, Distended Extremeties Extremities Exam: Moderate Edema, Pitting Edema, Dependent Edema Neurologic Neuro Exam: Unresponsive Assessment/Plan Problem List: (1) Acute renal failure Plan: Patient has oliguric acute renal failure and remains essentially oliguric. Continue with HD BUN and Creatinine higher multiple CVA Anoxic Encephalopathy S/P Trach. No improvement neurologically. HD done yesterday, continue HD as needed. 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 Plan: Cardiology following (4) Acute hypoxemic respiratory failure Plan: On ventilator (5) Hypertensive emergency Plan: BP improved (6) Diabetes mellitus Plan: Continue monitor blood glucose (7) CAD (coronary artery disease) Plan: Presented with STEMI, follow with cardiology (8) Subsequent ST elevation (STEMI) myocardial infarction of anterior wall Plan: Planned transfer to when stable. No intervention performed here. Problem Qualifiers (1) Acute renal failure: Qualified Code: N17.0 - Acute renal failure with tubular necrosis (2) Diabetes mellitus: Qualified Code: E13.8 - Diabetes mellitus of other type with complication, unspecified group home insulin use status (3) CAD (coronary artery disease): Qualified Code: I25.10 - Coronary artery disease, angina presence unspecified, unspecified vessel or lesion type, unspecified whether [place] or transplanted heart Renee Bhat MD Jun 11, 2016 13:30
--- NOTE | 2016-06-11 14:13 | HHI.CCPN ---
Subjective Remarks/Hospital Course 61-year-old AA male. Date of admission 05/05/2016. Date of consultation 2016. Past medical history includes hypertensive heart disease, hypertension, diabetes mellitus type 2 and spinal stenosis. He presented to [facility] today with history of acute onset of diaphoresis, chest pain and syncope. Her documentation, Chest pain was 7 out of 10 without radiation. Later in the hospital physician, patient did have ST elevation anterior septal leads. I he had a cardiac catheterization in 2009 which revealed moderate coronary disease which documented 50-60% stenosis in the LAD diagonals 1 and 2. Recommended medical management at that time. Dr. Marcano was notified and proceed to the cardiac catheter lab. Patient sees heparin and one aspirin prior to cardiac catheterization. During heart catheterization,, patient became hypertensive, tachypneic, hypoxic and agitated including abdominal pain with nausea and vomiting. Patient was intubated by Dr. Simon and dispensed transferred to room 505a. Currently hemodynamic stable on a propofol drip. 05/06: Patient required additional sedation overnight. Was moving all 4 extremity spontaneously and strongly. Potassium is replaced overnight along with magnesium. This afternoon approximate 4 PM, patient went into a sinus bradycardia in the 40s. RN cannot locate pulse and possibly went into a PEA arrest. Patient received CPR for approximately 2 minutes. ROSC return immediately. Received 1 mg of epinephrine IV. Blood pressure was 240 systolic. Saturations were above 90% the entire time. Dr. Marcano was made aware. No new recommendations at this time. Electrolytes currently pending. Patient is currently hemodynamic stable and an arterial line/left radial has been placed 05/07: no improvement in delirium or mental status. spiking low grade fevers. 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 CT surgery consulted and declined to operate here: he will need referral once stabilized. fio2 requirements still high. CT chest also with evidence of bibasilar consolidation which may be aspiration pneumonitis vs. pneumonia now that we are 48h out from initial presentation and now spiking fevers. 05/08: delirium persists. continues to spike fevers. jolly cultured yesterday without results yet. holding sedation today. 05/09: delirium slightly improved. waking up on SAT, weakly following commands. cultures still NGTD. hypoxia slightly improved. 05/10: delirium improving. weakly following commands still. cultures still NGTD. fevers persist, although fever curve appears to be improving. hypoxia continues to improve. still remains very critically ill. 05/11: Tmax 99.9. Currently 99.1. Tolerating tube feeding. One bowel movement. Continues to have difficulty weaning ventilator. 05/12: Currently afebrile. Tolerating tube feeding. Positive BM. Increased FiO2 from 45-60%. +1 L. Arousable on sedation vacation and weakly follows commands. 05/13: Remains intubated, sedated. FiO2 now reduced to 45% (was 55% today am). Start weaning trials after starting Precedex. To control BP May use Cardene, given anomalous RCA 05/14: Extubated yesterday, remained on BiPAP overnight. Intermittently agitated. Following commands to me today, while on BiPAP. Remains on Cardene infusion for uncontrolled hypertension. Urine output 4.7 L in 24 hours 05/15: On 3 L nasal cannula. Fever trending down, breathing more comfortably. Able to communicate. Discussed with Dr. Marcano. Dr. Pendleton will be available tomorrow, will probably need transfer to [facility] for RCA unroofing 05/16: Acutely hypotensive overnight with tachycardia. MAP was 55 with greater than 130s. Received 3.5 L of normal saline bolus with improvement in blood pressure and heart rate. Lethargic on BiPAP. ABG pending, HB dropped from 10.9 to 7.8. No obvious source of bleeding. STAT 2U PRBC. STAT CT head and CT abd pelvis. R/O ICH or RP bleed. Patient received only 5mg Nicci at 2100 yesterday, no other sedation. Last dose of Lovenox was at 211, held now 05/17: Developed Hemorrhagic shock from large retroperitoneal hemorrhage night to 05/15/16. Stabilized after 3 units of PRBC and protamine. Hemoglobin 8.7 today. Remain encephalopathy and unresponsive yesterday. MRI 05/16/16 shows small punctate white matter infarcts, bilateral basal ganglia infarcts. Urology consult pending. Antiplatelet drugs on hold. Now with anuria from ATN secondary to shock. Nephrology consult pending 05/18: Developed sudden onset bradycardia in 40s, with acute hypotension yesterday evening around 5 PM. ACLS protocol initiated (did not arrest or lose pulse). Received multiple epinephrine, bicarbonate calcium and fluid boluses. Patient was placed on dopamine 20 mics per KG per minute, Levophed 20 mics per KG per minute, epinephrine 2.5 mics per minute and eventually stabilized with systolic blood pressure reading 120s. Hemoglobin on ABG was 7 and emergently transfused 3 units PRBC and 2 units FFP. Lab hemoglobin came back at 6.8. Patient also was profoundly acidemic with pH of 7.16. Patient received total 3 A of bicarbonate and bicarbonate infusion was started, minute ventilation was also increased. 2: MAXIMUM TEMPERATURE 100.3. Currently 99.5. No bowel movement. Tube feeds were restarted. FiO2 50%. PEEP at 8. 05/20: MAXIMUM TEMPERATURE 100.9. Positive BM. Tube feeds were restarted today. PT plateau. FiO2 down to 85%. Semiemergent bronchoscopy yesterday for right upper lobe airway obstruction. Resolved 05/21: MAXIMUM TEMPERATURE 100.7. Currently 99.6. Somewhat tachycardic. 2 bowel movements overnight. Tolerating tube feeds at 30 cc an hour. Had episode of emesis overnight. 05/22: Remains sedated, orally intubated on mechanical ventilation. 05/23: Remains sedated, orally intubated on mechanical ventilation. Dialyzed yesterday. 05/24: Remains sedated/encephalopathic, orally intubated on mechanical ventilation. Tolerating tube feeds. Awaiting dialysis 05/25: Remains encephalopathic, orally intubated on mechanical ventilation. Off sedation for 2 days now. PEEP decreased to to +7 10 No acute events overnight. For HD today. Afebrile. On PRVC/AC 20, TV 550, PEEP: 6, IT: 1.2 and FIO2 35%. On no sedation. Tolerating tube feeds. Subjective 05/27: Tmax 99.8. Currently 99.1. FiO2 down to 35%. Tolerating tube feeding. Positive BM. MRI brain reveals bilateral lacunar infarcts. Will likely need trach 05/28: Afebrile. The patient continues on CPAP trials 28/09 FiO2 of 35%, maintaining O2 sat at 97%. 05/29: The patient continues on CPAP trials. The patient underwent hemodialysis today. The patient is noted to be a medium dose sliding scale insulin with persistent hyperglycemia will increase to high-dose insulin sliding scale. Per hematology the patient was placed on heparin infusion initially, then discontinued.. 05/30 Tmax 100.1. S/P initiation of therapeutic anticoagulation ,serial hemoglobin stable, continue to monitor every 12 hours. Patient continues to fail CPAP trials, plan for tracheostomy, Discussed with patient spouse, she desires a trach and PEG, at this time. 05/31 Tmax 100.1. Maintaining CPAP trials occasionally 3-4 hours. Discussed with family risk and benefits of tracheostomy. Discussed with family MRI results, EEG results. Family requests continue aggressive support. Plan for percutaneous tracheostomy . GI consulted for PEG placement. 06/01 Percutaneous tracheostomy performed today. Plan for patient to go to IR for new Vas-Cath placement per nephrology. 06/02 Patient s/p trach yesterday. For PEG tube placement and HD today today. On no sedation. T: 100.2 06/03 Patient s/p PEG tube placement and HD yesterday with removal 5L. Afebrile. Remains off sedation. 06/04 no acute events overnight. Tolerating C Pap. Will place on T piece 2-4 hours. No change in neuro exam 06/05 No acute events overnight. Tolerated CPAP/TP's trials for 4 hrs yesterday. Afebrile. For HD today 06/06 Patient is on ventilator via trach spiked fever with T: 101.0 last night. s /p HD yesterday with removal 3L. 06/07 Patient s/p HD yesterday with removal 3L. T: 100.8 last night. On ventilator via trach remains encephalopathic. 06/08: Currently getting hemodialysis, no fever white count trending down. Slight improvement in neuro exam. Partial eye-opening to central pain. Withdraws bilateral upper extremity slightly to pain 06/09: No acute events overnight. Tolerated TP yesterday, increase TP time to 8- 10 hours today. at bedside 06/10: Tachypneic today, versus support increased to 15 to breathing 30-35 breaths per minute. Chest x-ray from yesterday and today showing the right upper lobe infiltrates. New sputum culture ordered. Levaquin will be continued , I have added cefepime and discussed with ID 06/11: Chest x-ray shows improving right upper lobe infiltrate. Hemodialysis yesterday with 5 L of fluid removed. Sputum culture pending Objective Vital Signs Date Time Temp Pulse Resp B/P Pulse Ox O2 Delivery O2 Flow Rate FiO2 06/11/16 13:04 97 35 06/11/16 12:00 93 06/11/16 12:00 99.0 21 161/95 06/09/16 19:10 Trach Collar 5.00 Intake and Output 06/10/16 06/10/16 06/11/16 08:00 16:00 00:00 Intake Total 299 ml 736 ml 575 ml Output Total 75 ml 5075 ml 0 ml Balance 224 ml -4339 ml 575 ml Result Diagram: 06/11/16 0607 06/11/16 0607 Imaging Last Impressions Liver Ultrasound 06/06/16 0000 Signed Impressions: Service Date/Time: Monday, June 06, 2016 14:18 - CONCLUSION: 1. Liver slightly echogenic which can be seen with fatty infiltration. 2. Spleen not visualized. 3. There may be some minimal gallbladder sludge but no cholelithiasis or wall thickening. Carlitos Aguirre MD Chest X-Ray 06/06/16 0000 Signed Impressions: Service Date/Time: Monday, June 06, 2016 08:23 - CONCLUSION: Improving aeration. Satisfactory dialysis catheter positioning. Low Blood MD Upper Extremity Ultrasound 06/05/16 0000 Signed Impressions: Service Date/Time: Sunday, June 05, 2016 11:01 - CONCLUSION: Occlusive thrombus right cephalic vein and left basilic vein Shahid Sin MD Lower Extremity Ultrasound 06/05/16 0000 Signed Impressions: Service Date/Time: Sunday, June 05, 2016 16:05 - CONCLUSION: Normal examination. No evidence of DVT Shahid Sin MD Gastrostomy Tube Placement 06/02/16 0000 Signed Impressions: Service Date/Time: Thursday, June 02, 2016 12:31 - CONCLUSION: Uncomplicated gastrostomy tube placement as above. Isidro Flor MD Catheter Placement X-Ray 06/02/16 0000 Signed Impressions: Service Date/Time: Thursday, June 02, 2016 12:31 - CONCLUSION: 1. Uncomplicated line placement as above. 2. Patient currently has a modified left subclavian PermCath catheter that is being utilized as a temporary access. Isidro Flor MD Brain MRI 05/27/16 0000 Signed Impressions: Service Date/Time: Friday, May 27, 2016 12:17 - CONCLUSION: Multifocal bilateral T2 signal abnormalities in restricted diffusion concerning for bilateral lacunar infarcts. Carlitos Aguirre MD Head CT 05/16/16 0000 Signed Impressions: Service Date/Time: Monday, May 16, 2016 08:30 - CONCLUSION: Suspected bilateral basal ganglia calcifications are unchanged. No evidence of hemorrhage, edema, mass or mass effect. Stephen Quintanilla MD Abdomen/Pelvis CT 05/16/16 0000 Signed Impressions: Service Date/Time: Monday, May 16, 2016 08:39 - CONCLUSION: There are large areas of hemorrhage including the left retroperitoneum and psoas muscle, within the mesentery and a smaller area in the right psoas muscle. They don't appear to be related to the abdominal aorta or the internal iliac arteries. There is a small focal collection hemorrhage adjacent to the left external iliac artery as it enters the pelvis, but I don't believe that is related to the large amount of hemorrhage seen elsewhere. The areas of hemorrhage are large and multi-focal. Stephen Quintanilla MD CT Angiography 05/06/16 0000 Signed Impressions: Service Date/Time: Saturday, May 07, 2016 00:04 - CONCLUSION: 1. Lobar consolidation bilaterally in the lower lobes. 2. Negative for pulmonary embolism. Michael Colbert MD Objective Remarks GENERAL: 61-year-old AA male, morbidly obese on PSV via trach SKIN: Warm and dry. No rash HEAD: Atraumatic. Normocephalic. EYES: Pupils equal and round around 2-3 mm bilaterally and slightly reactive. No scleral icterus. No injection or drainage. Horizontal roving movements of the eyes noted ENT: No nasal bleeding or discharge. NECK: JVD difficult to assess due to body habitus. s/p Trach, no bleeding from site CARDIOVASCULAR: Tachycardic nl S1, S2. Without murmur RESPIRATORY: Diminished breath sounds bilaterally due to body habitus. Breath sounds equal bilaterally. Tachypneic on PSV GASTROINTESTINAL: Abdomen obese, non-tender, protuberant, distended. no guarding. Peg tube in place MUSCULOSKELETAL: Extremities with 1+ edema NEUROLOGICAL: Patient remains unresponsive, off sedation since morning of 05/23. Pupils are sluggishly reactive. Bilateral upper extremity mildl withdrawal to pain. +ve Corneal reflex, gag reflex. Partial eye opening to sternal rub. Patient have Horizontal roving movements of the eyes. A/P Assessment and Plan Neuro/Psych: Bilateral basal ganglia infarcts, small punctate white matter infarcts on MRI Metabolic encephalopathy Patient remains unresponsive. Has been off sedation close to two weeks. Neurology Dr. Felix. MRI of the brain done 05/16/16 shows small punctate white matter infarcts, bilateral basal ganglia infarcts. Repeat MRI brain 05/[address] 05/08, 05/16: negative acute. EEG 05/12 revealed generalized slowing right greater than left. No epileptiform activity. EEG 05/16: No seizure, severe encephalopathy. EEG 06/08 moderate encephalopathy, no seizure CV: Hemorrhagic shock due to left retroperitoneal hemorrhage-shock resolved Severe bradycardia and hypotension 05/17/16 most likely secondary to recurrent bleed Aberrant RCA off LCC Nonsustained V. tach single episode Diastolic heart failure Coronary artery disease Nonischemic cardiomyopathy secondary to hypertensive heart disease Hypertensive emergency On Labetalol 200 every 8, Hydralazine 50mg Q 8hrs, Cardizem 60mg QID Status post cardiac catheterization by Dr. Moy. No intervention performed. Known coronary artery artery disease to the first and second diagonals the LAD. Aberrant RCA off left coronary cups. Transfer to fo RCA for unroofing held due to lack of improvement in neuro status Aspirin 81 mg on hold due to RP hemorrhage. (Plavix DC d 05/15/[address] Marcano at that time in anticipation of probable unroofing surgery) Resume ASA 81 mg daily 06/11/16 Lipitor 20 mg by mouth daily held in light of elevated liver function tests 05/30 Short run 8-9 beats V-tach last evening with resolution, no intervention Pulm: Acute hypoxemic respiratory failure-extubated 05/13/16, re intubated 05/16/16 for airway protection New right upper lobe infiltrate Likely underlying STU Previous Right upper lobe mucus plugging Mucus plugging versus new RUL pneumonia-CT of the chest 06/10/16 showed right upper lobe patchy infiltrate Cefepime added 06/10, sputum culture sent S/P percutaneous tracheostomy. 8.0 Shiley 06/01 Ventilator bundle, SBT/TP's daily as tolerated. Currently will not tolerate TPs due to tachypnea Bronchodilator therapy every 4 hours and as needed. Pulm toilet, trach care GI: S/P large left retroperitoneal hemorrhage 05/15 Hypoalbuminemia Elevated LFT's Monitor LFT's, US liver: Liver slightly echogenic which can be seen with fatty infiltration. Minimal gallbladder sludge but no cholelithiasis or wall thickening. Continue TF via PEG (Nepro at 50 cc an hour) Continue Protonix for GI prophylaxis Colace/Senokot twice a day for bowel regimen /Renal: Acute kidney failure due to ATN Anuria Chaudhry for accurate I's and O's in a critically ill patient HD started 05/17/16 , Sunday. Renal- Dr. Mcintosh. HD per him. Endo: Diabetes mellitus type 2 Hyperglycemia -SSI medium scale with accuchecks Q6 Heme: s/p Acute blood loss anemia with shock Large left retroperitoneal hemorrhage Right cephalic superficial thrombus left basilic thrombus/right PT THROMBUS Normocytic anemia Leukocytosis Monitor CBC, Heme is following. On Epogen with HD Hematology on board, Transfused 3 units PRBC stat on 05/16/16 Transfused 3 units PRBC and 2 units FFP Transfuse 1 unit PRBCs 05/19. Therapeutic Lovenox discontinued, aspirin placed on hold, now on DVT prophylactic dose of Heparin. Aspirin resumed 06/11/16 75 mg IV protamine slow infusion (D/W with Dr. mcintosh) on 05/16/16. Was on Lovenox 150 mg subcutaneous twice a day-DCd 05/16/16 ID: Aspiration pneumonia/Enterobacter aerogenes in sputum Leukocytosis -Mucus plugging versus new RUL pneumonia-check CT of the chest today to to -Cefepime added 06/10, sputum culture sent. Discussed with Dr. Vergara -On Aztreonam, ID Dr. Mariee . Monitor for signs of infection( Fever, WBC) -Pancultured 06/06 ( Blood, sputum, urine) -Patient s/p Cefepime and Flagyl course. Pertinent cultures 05/07 - blood cultures 2 - negative 05/08 - sputum - negative 05/08 - urine - negative 05/08 - blood cultures - negative 05/13 - blood cx negative 05/13 - urine cx negative 05/16 - sputum Enterobacter aerogenes 05/16 - urine neg 131 - blood cultures neg 05/18 - blood cultures- negative 05/19 - bronchoscopy - Yeast 05/27 Sputum Enterobacter 06/02 Sputum: Enterobacter Urine cx: C. Glabrata MSK: History of spinal stenosis/laminectomy/left total knee replacement and left ring finger amputation PT evaluate and treat Access - Peripheral IV;'s Prophylaxis -GI - Protonix -DVT -Heparin 5000 SQ BID, SCD on L leg -06/05 Doppler US LE: No DVT -06/05 Doppler US UE: Right cephalic and left basilic occlusive thrombus- on SQ heparin per Heme. -05/25 Doppler US UE: Occlusive thrombus in the right distal cephalic vein. Nonocclusive thrombus in the left mid and distal basilic veins. Level 3 Tahmina Kelsey MD Jun 11, 2016 14:13
[2016-06-11] MEDS: LEVOFLOXACIN 250 MG TAB PO SCH (14:14)
[2016-06-12] VITALS (17 sets, daily range): BP systolic 121–158; BP diastolic 65–89; PULSE 71–94; RESP 18–33; TEMP 98.5–99.9; O2SAT 96–100
[2016-06-12] MEDS: INSULIN NovoLIN REGULAR SUPPLEMENTAL SCALE SQ SCH ×4 (01:11→20:37)
[2016-06-12] MEDS: CHLORHEXIDINE GLUCONATE 2 % 1 PACK (2 CLOTHS) TOP SCH (04:00)
[2016-06-12] MEDS: METOCLOPRAMIDE HCL 10 MG/2 ML VIAL IV PUSH SCH ×3 (04:55→22:52)
[2016-06-12] MEDS: hydrALAZINE HCL 25 MG TAB PO SCH ×3 (04:56→22:52)
[2016-06-12] MEDS: LABETALOL HCL 200 MG TAB PO SCH ×3 (04:56→22:52)
[2016-06-12] MEDS: CHLORHEXIDINE 0.12% (ORAL KIT) 15 ML CUP MT SCH ×2 (07:41→20:36)
[2016-06-12] MEDS: DOCUSATE SODIUM 100 MG CAP PO SCH ×2 (07:42→20:36)
[2016-06-12] MEDS: ARTIFICIAL TEARS OPTH SOLN 15 ML BTL EACH EYE SCH ×3 (09:00→16:06)
--- NOTE | 2016-06-12 09:02 | HHI.IDPN ---
Subjective Subjective Remarks ID COVERAGE Mr. Short is a 61-year-old male who was admitted on May 05, 2016. Patient's past medical history significant for hypertensive heart disease, hypertension, type 2 diabetes and spinal stenosis. Patient presented to [facility] on the day of admission with history of acute onset of diaphoresis chest pain and syncope. Patient now has retroperitoneal hematoma, IC bleed. ID following for possible sepsis. Notes reviewed D/W RN Temps ok 99+ On CPAP overnight, on T-piece currently Sats 100% Has a lot of secretions CT chest report noted Last CXR today looks better C/S sputum with GNR LFT slightly better BP ok Antibiotics Levaquin Cefepime Lines Line sites with no e/o infection Past Medical History reviewed Allergies: Coded Allergies: Penicillin (Verified Allergy, Mild, "I GO CRAZY", 09/01/15) Objective . Vital Signs Date Time Temp Pulse Resp B/P Pulse Ox O2 Delivery O2 Flow Rate FiO2 06/12/16 08:01 96 T-piece 15.00 40 06/12/16 06:00 90 06/12/16 04:12 99 35 06/12/16 04:00 35 06/12/16 04:00 94 06/12/16 04:00 99.5 94 22 158/89 99 06/12/16 02:00 80 06/12/16 01:10 97 35 06/12/16 00:00 99.9 79 33 121/65 96 06/12/16 00:00 79 06/12/16 00:00 35 06/11/16 22:00 84 06/11/16 20:00 87 06/11/16 20:00 35 06/11/16 20:00 99.5 87 35 133/77 96 06/11/16 19:05 100 35 06/11/16 18:28 97 35 06/11/16 18:00 90 06/11/16 16:00 85 06/11/16 16:00 98.9 85 34 135/80 97 06/11/16 16:00 35 06/11/16 14:00 80 06/11/16 13:04 97 35 06/11/16 12:00 35 06/11/16 12:00 93 06/11/16 12:00 99.0 93 21 161/95 98 06/11/16 10:00 83 06/11/16 09:17 99 35 06/11/16 06/11/16 06/12/16 15:00 23:00 07:00 Intake Total 740 ml 403 ml 283 ml Output Total 100 ml 50 ml 75 ml Balance 640 ml 353 ml 208 ml Intake Oral 0 ml 0 ml IV Total 105 ml 0 ml 0 ml Tube Feeding 455 ml 403 ml 283 ml Tube Irrigant 180 ml Output Urine Total 100 ml 50 ml 75 ml # Bowel Movements 0 0 1 . Laboratory Tests Test 06/11/16 06:07 White Blood Count 12.8 TH/MM3 Red Blood Count 3.57 MIL/MM3 Hemoglobin 10.1 GM/DL Hematocrit 31.7 % Mean Corpuscular Volume 88.8 FL Mean Corpuscular Hemoglobin 28.4 PG Mean Corpuscular Hemoglobin 32.0 % Concent Red Cell Distribution Width 16.4 % Platelet Count 284 TH/MM3 Mean Platelet Volume 8.8 FL Neutrophils (%) (Auto) 79.3 % Lymphocytes (%) (Auto) 7.8 % Monocytes (%) (Auto) 11.3 % Eosinophils (%) (Auto) 1.1 % Basophils (%) (Auto) 0.5 % Neutrophils # (Auto) 10.1 TH/MM3 Lymphocytes # (Auto) 1.0 TH/MM3 Monocytes # (Auto) 1.4 TH/MM3 Eosinophils # (Auto) 0.1 TH/MM3 Basophils # (Auto) 0.1 TH/MM3 CBC Comment DIFF FINAL Differential Comment Laboratory Tests Test 06/11/16 06:07 Sodium Level 137 MEQ/L Potassium Level 4.1 MEQ/L Chloride Level 95 MEQ/L Carbon Dioxide Level 26.6 MEQ/L Anion Gap 15 MEQ/L Blood Urea Nitrogen 89 MG/DL Creatinine 5.22 MG/DL Estimat Glomerular Filtration 14 ML/MIN Rate Random Glucose 221 MG/DL Calcium Level 9.1 MG/DL Magnesium Level 2.3 MG/DL Total Bilirubin 0.6 MG/DL Aspartate Amino Transf 166 U/L (AST/SGOT) Alanine Aminotransferase 246 U/L (ALT/SGPT) Alkaline Phosphatase 231 U/L Total Protein 7.5 GM/DL Albumin 2.7 GM/DL Microbiology Date/Time Procedure Status Source Growth 06/10/16 14:40 Gram Stain - Final Resulted Sputum Endotracheal 06/10/16 14:40 Sputum Culture - Preliminary Resulted Gram Negative [facility] Chest X-Ray 06/11/16 0600 Signed Impressions: Service Date/Time: Saturday, June 11, 2016 03:12 - CONCLUSION: No significant change has occurred. Ronald Tinsley MD Chest X-Ray 06/10/16 0000 Signed Impressions: Service Date/Time: Friday, June 10, 2016 07:53 - CONCLUSION: No significant change. Persistent hazy right upper lung opacity. Hal Finn MD Liver Ultrasound 06/06/16 0000 Signed Impressions: Service Date/Time: Monday, June 06, 2016 14:18 - CONCLUSION: 1. Liver slightly echogenic which can be seen with fatty infiltration. 2. Spleen not visualized. 3. There may be some minimal gallbladder sludge but no cholelithiasis or wall thickening. Carlitos Aguirre MD Upper Extremity Ultrasound 06/05/16 0000 Signed Impressions: Service Date/Time: Sunday, June 05, 2016 11:01 - CONCLUSION: Occlusive thrombus right cephalic vein and left basilic vein Shahid Sin MD Lower Extremity Ultrasound 06/05/16 Signed Impressions: Service Date/Time: Sunday, June 05, 2016 16:05 - CONCLUSION: Normal examination. No evidence of DVT Shahid Sin MD Gastrostomy Tube Placement 06/02/16 0000 Signed Impressions: Service Date/Time: Thursday, June 02, 2016 12:31 - CONCLUSION: Uncomplicated gastrostomy tube placement as above. Isidro Flor MD Catheter Placement X-Ray 06/02/16 0000 Signed Impressions: Service Date/Time: Thursday, June 02, 2016 12:31 - CONCLUSION: 1. Uncomplicated line placement as above. 2. Patient currently has a modified left subclavian PermCath catheter that is being utilized as a temporary access. Isidro Flor MD Brain MRI 05/27/16 0000 Signed Impressions: Service Date/Time: Friday, May 27, 2016 12:17 - CONCLUSION: Multifocal bilateral T2 signal abnormalities in restricted diffusion concerning for bilateral lacunar infarcts. Carlitos Aguirre MD Head CT 05/16/16 0000 Signed Impressions: Service Date/Time: Monday, May 16, 2016 08:30 - CONCLUSION: Suspected bilateral basal ganglia calcifications are unchanged. No evidence of hemorrhage, edema, mass or mass effect. Stephen Quintanilla MD Abdomen/Pelvis CT 05/16/16 0000 Signed Impressions: Service Date/Time: Monday, May 16, 2016 08:39 - CONCLUSION: There are large areas of hemorrhage including the left retroperitoneum and psoas muscle, within the mesentery and a smaller area in the right psoas muscle. They don't appear to be related to the abdominal aorta or the internal iliac arteries. There is a small focal collection hemorrhage adjacent to the left external iliac artery as it enters the pelvis, but I don't believe that is related to the large amount of hemorrhage seen elsewhere. The areas of hemorrhage are large and multi-focal. Stephen Quintanilla MD CT Angiography 05/06/16 0000 Signed Impressions: Service Date/Time: Saturday, May 07, 2016 00:04 - CONCLUSION: 1. Lobar consolidation bilaterally in the lower lobes. 2. Negative for pulmonary embolism. Michael Colbert MD Physical Exam GENERAL: On the vent, looks slightly dyspneic, on T-piece SKIN: No rashes, ecchymoses or lesions. Cool and dry. HEENT: Pupils equal round and reactive. No scleral icterus. No injection or drainage. NECK: Trachea midline. Trach site ok. Supple, no meningeal signs. CARDIOVASCULAR: HS audible. RESPIRATORY: Decreased BS both lung ye GASTROINTESTINAL: Abdomen soft, non-tender, nondistended. Obese MUSCULOSKELETAL: Extremities with wrinkling of skin noted. Improving edema NEUROLOGICAL: Off sedation and no response. Psych: could not be assessed IV line sites with no e/o infection. Assessment & Plan Remarks Enterobacter cloacae Pneumonia. - has new infiltrates on CXR - though CXR today looks better than yesterday, ?atelectasis, he has been doing T-piece trials Possible Cath associated UTI. Possible Central line associated Blood Stream Infection. Acute metabolic encephalopathy Acute resp failure, S/P trach, component of STU Acute kidney injury: prerenal from hemodynamic changes, chronic HTN related. DM2 uncontrolled: stress as additional factor. CAD non ischemic cardiomyopathy Anemia: acute due to Retroperitoneal bleed. Receiving blood transfusions. Recs: Continue Levaquin Continue Cefepime Monitor temps Follow new C/S Monitor progress Weaning per [facility] D/W Stephanie García MD Jun 12, 2016 09:02
[2016-06-12] MEDS: CEFEPIME INJ 1,000 MG in SODIUM CHLORIDE 0.9% INJ 100 ML IV SCH (09:52)
[2016-06-12] MEDS: SODIUM CHLORIDE 0.9% FLUSH 5 ML FLUSH IV FLUSH SCH ×2 (09:52→20:37)
[2016-06-12] MEDS: ASPIRIN 81 MG CHEW TAB CHEW SCH (09:52)
[2016-06-12] MEDS: HEPARIN SODIUM - SQ 10,000 UNITS/ML VIAL SQ SCH ×2 (09:52→20:36)
[2016-06-12] MEDS: DILTIAZEM HCL 60 MG TAB PO SCH ×4 (09:52→20:36)
--- NOTE | 2016-06-12 10:24 | HHI.NPPN ---
Subjective History of Present Illness 61 year old with ARF, CHF, Respiratory failure Additional Remarks Patient s/p Trach and off sedation, remain unresponsive, now on HD. Objective Data Data 06/11/16 06/12/16 19:00 07:00 Intake Total 740 ml 686 ml Output Total 100 ml 125 ml Balance 640 ml 561 ml Intake Oral 0 ml IV Total 105 ml 0 ml Tube Feeding 455 ml 686 ml Tube Irrigant 180 ml Output Urine Total 100 ml 125 ml # Bowel Movements 0 1 Vital Signs Date Time Temp Pulse Resp B/P Pulse Ox O2 Delivery O2 Flow Rate FiO2 06/12/16 10:00 87 06/12/16 08:01 96 T-piece 15.00 40 06/12/16 08:00 99.7 88 24 140/75 100 06/12/16 08:00 86 06/12/16 07:00 100 T-Piece 6.00 28 06/12/16 06:00 90 06/12/16 04:12 99 35 06/12/16 04:00 35 06/12/16 04:00 94 06/12/16 04:00 99.5 94 22 158/89 99 06/12/16 02:00 80 06/12/16 01:10 97 35 06/12/16 00:00 99.9 79 33 121/65 96 06/12/16 00:00 79 06/12/16 00:00 35 06/11/16 22:00 84 06/11/16 20:00 87 06/11/16 20:00 35 06/11/16 20:00 99.5 87 35 133/77 96 06/11/16 19:05 100 35 06/11/16 18:28 97 35 06/11/16 18:00 90 06/11/16 16:00 85 06/11/16 16:00 98.9 85 34 135/80 97 06/11/16 16:00 35 06/11/16 14:00 80 06/11/16 13:04 97 35 06/11/16 12:00 35 06/11/16 12:00 93 06/11/16 12:00 99.0 93 21 161/95 98 -: 06/11/16 0607 06/11/16 0607 Physical Exam General Appearance: Obese Neck Neck Exam: Neck Supple Pulmonary Resp Exam: Rhonchi, Decreased Bases, Diminished Breath Sounds, Poor Inspiratory Effort Cardiology CV Exam: Tachycardia Gastrointestinal/Abdomen GI Exam: Soft, Non-Tender, Distended Extremeties Extremities Exam: Moderate Edema, Pitting Edema, Dependent Edema Neurologic Neuro Exam: Unresponsive Assessment/Plan Problem List: (1) Acute renal failure Plan: Patient has oliguric acute renal failure and remains essentially oliguric. Continue with HD BUN and Creatinine higher multiple CVA Anoxic Encephalopathy S/P Trach. HD TTS UF last Sunday 5 L No improvement neurologically. 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 Plan: Cardiology following (4) Acute hypoxemic respiratory failure Plan: On ventilator (5) Hypertensive emergency Plan: BP improved (6) Diabetes mellitus Plan: Continue monitor blood glucose (7) CAD (coronary artery disease) Plan: Presented with STEMI, follow with cardiology (8) Subsequent ST elevation (STEMI) myocardial infarction of anterior wall Plan: Planned transfer to [facility] when stable. No intervention performed here. Problem Qualifiers (1) Acute renal failure: Qualified Code: N17.0 - Acute renal failure with tubular necrosis (2) Diabetes mellitus: Qualified Code: E13.8 - Diabetes mellitus of other type with complication, unspecified senior living insulin use status (3) CAD (coronary artery disease): Qualified Code: I25.10 - Coronary artery disease, angina presence unspecified, unspecified vessel or lesion type, unspecified whether bois forte or transplanted heart Linda Mcintosh MD Jun 12, 2016 10:24
[2016-06-12] MEDS: RESP: ALBUTEROL 2.5 MG/IPRATROPIUM 0.5 MG NEB (PRN) INH (11:53)
--- NOTE | 2016-06-12 12:04 | HHI.CCPN ---
Subjective Remarks/Hospital Course 61-year-old AA male. Date of admission 05/05/2016. Date of consultation 2016. Past medical history includes hypertensive heart disease, hypertension, diabetes mellitus type 2 and spinal stenosis. He presented to [facility] today with history of acute onset of diaphoresis, chest pain and syncope. Her documentation, Chest pain was 7 out of 10 without radiation. Later in the hospital physician, patient did have ST elevation anterior septal leads. I he had a cardiac catheterization in 2009 which revealed moderate coronary disease which documented 50-60% stenosis in the LAD diagonals 1 and 2. Recommended medical management at that time. Dr. Marcano was notified and proceed to the cardiac catheter lab. Patient sees heparin and one aspirin prior to cardiac catheterization. During heart catheterization,, patient became hypertensive, tachypneic, hypoxic and agitated including abdominal pain with nausea and vomiting. Patient was intubated by Dr. Simon and dispensed transferred to room 505a. Currently hemodynamic stable on a propofol drip. 05/06: Patient required additional sedation overnight. Was moving all 4 extremity spontaneously and strongly. Potassium is replaced overnight along with magnesium. This afternoon approximate 4 PM, patient went into a sinus bradycardia in the 40s. RN cannot locate pulse and possibly went into a PEA arrest. Patient received CPR for approximately 2 minutes. ROSC return immediately. Received 1 mg of epinephrine IV. Blood pressure was 240 systolic. Saturations were above 90% the entire time. Dr. Marcano was made aware. No new recommendations at this time. Electrolytes currently pending. Patient is currently hemodynamic stable and an arterial line/left radial has been placed 05/07: no improvement in delirium or mental status. spiking low grade fevers. 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 CT surgery consulted and declined to operate here: he will need referral once stabilized. fio2 requirements still high. CT chest also with evidence of bibasilar consolidation which may be aspiration pneumonitis vs. pneumonia now that we are 48h out from initial presentation and now spiking fevers. 05/08: delirium persists. continues to spike fevers. jolly cultured yesterday without results yet. holding sedation today. 05/09: delirium slightly improved. waking up on SAT, weakly following commands. cultures still NGTD. hypoxia slightly improved. 05/10: delirium improving. weakly following commands still. cultures still NGTD. fevers persist, although fever curve appears to be improving. hypoxia continues to improve. still remains very critically ill. 05/11: Tmax 99.9. Currently 99.1. Tolerating tube feeding. One bowel movement. Continues to have difficulty weaning ventilator. 05/12: Currently afebrile. Tolerating tube feeding. Positive BM. Increased FiO2 from 45-60%. +1 L. Arousable on sedation vacation and weakly follows commands. 05/13: Remains intubated, sedated. FiO2 now reduced to 45% (was 55% today am). Start weaning trials after starting Precedex. To control BP May use Cardene, given anomalous RCA 05/14: Extubated yesterday, remained on BiPAP overnight. Intermittently agitated. Following commands to me today, while on BiPAP. Remains on Cardene infusion for uncontrolled hypertension. Urine output 4.7 L in 24 hours 05/15: On 3 L nasal cannula. Fever trending down, breathing more comfortably. Able to communicate. Discussed with Dr. Marcano. Dr. Pendleton will be available tomorrow, will probably need transfer to [facility] for RCA unroofing 05/16: Acutely hypotensive overnight with tachycardia. MAP was 55 with greater than 130s. Received 3.5 L of normal saline bolus with improvement in blood pressure and heart rate. Lethargic on BiPAP. ABG pending, HB dropped from 10.9 to 7.8. No obvious source of bleeding. STAT 2U PRBC. STAT CT head and CT abd pelvis. R/O ICH or RP bleed. Patient received only 5mg Nicci at 2100 yesterday, no other sedation. Last dose of Lovenox was at 211, held now 05/17: Developed Hemorrhagic shock from large retroperitoneal hemorrhage night to 05/15/16. Stabilized after 3 units of PRBC and protamine. Hemoglobin 8.7 today. Remain encephalopathy and unresponsive yesterday. MRI 05/16/16 shows small punctate white matter infarcts, bilateral basal ganglia infarcts. Urology consult pending. Antiplatelet drugs on hold. Now with anuria from ATN secondary to shock. Nephrology consult pending 05/18: Developed sudden onset bradycardia in 40s, with acute hypotension yesterday evening around 5 PM. ACLS protocol initiated (did not arrest or lose pulse). Received multiple epinephrine, bicarbonate calcium and fluid boluses. Patient was placed on dopamine 20 mics per KG per minute, Levophed 20 mics per KG per minute, epinephrine 2.5 mics per minute and eventually stabilized with systolic blood pressure reading 120s. Hemoglobin on ABG was 7 and emergently transfused 3 units PRBC and 2 units FFP. Lab hemoglobin came back at 6.8. Patient also was profoundly acidemic with pH of 7.16. Patient received total 3 A of bicarbonate and bicarbonate infusion was started, minute ventilation was also increased. 2: MAXIMUM TEMPERATURE 100.3. Currently 99.5. No bowel movement. Tube feeds were restarted. FiO2 50%. PEEP at 8. 05/20: MAXIMUM TEMPERATURE 100.9. Positive BM. Tube feeds were restarted today. PT plateau. FiO2 down to 85%. Semiemergent bronchoscopy yesterday for right upper lobe airway obstruction. Resolved 05/21: MAXIMUM TEMPERATURE 100.7. Currently 99.6. Somewhat tachycardic. 2 bowel movements overnight. Tolerating tube feeds at 30 cc an hour. Had episode of emesis overnight. 05/22: Remains sedated, orally intubated on mechanical ventilation. 05/23: Remains sedated, orally intubated on mechanical ventilation. Dialyzed yesterday. 05/24: Remains sedated/encephalopathic, orally intubated on mechanical ventilation. Tolerating tube feeds. Awaiting dialysis 05/25: Remains encephalopathic, orally intubated on mechanical ventilation. Off sedation for 2 days now. PEEP decreased to to +7 10 No acute events overnight. For HD today. Afebrile. On PRVC/AC 20, TV 550, PEEP: 6, IT: 1.2 and FIO2 35%. On no sedation. Tolerating tube feeds. Subjective 05/27: Tmax 99.8. Currently 99.1. FiO2 down to 35%. Tolerating tube feeding. Positive BM. MRI brain reveals bilateral lacunar infarcts. Will likely need trach 05/28: Afebrile. The patient continues on CPAP trials 28/09 FiO2 of 35%, maintaining O2 sat at 97%. 05/29: The patient continues on CPAP trials. The patient underwent hemodialysis today. The patient is noted to be a medium dose sliding scale insulin with persistent hyperglycemia will increase to high-dose insulin sliding scale. Per hematology the patient was placed on heparin infusion initially, then discontinued.. 05/30 Tmax 100.1. S/P initiation of therapeutic anticoagulation ,serial hemoglobin stable, continue to monitor every 12 hours. Patient continues to fail CPAP trials, plan for tracheostomy, Discussed with patient spouse, she desires a trach and PEG, at this time. 05/31 Tmax 100.1. Maintaining CPAP trials occasionally 3-4 hours. Discussed with family risk and benefits of tracheostomy. Discussed with family MRI results, EEG results. Family requests continue aggressive support. Plan for percutaneous tracheostomy . GI consulted for PEG placement. 06/01 Percutaneous tracheostomy performed today. Plan for patient to go to IR for new Vas-Cath placement per nephrology. 06/02 Patient s/p trach yesterday. For PEG tube placement and HD today today. On no sedation. T: 100.2 06/03 Patient s/p PEG tube placement and HD yesterday with removal 5L. Afebrile. Remains off sedation. 06/04 no acute events overnight. Tolerating C Pap. Will place on T piece 2-4 hours. No change in neuro exam 06/05 No acute events overnight. Tolerated CPAP/TP's trials for 4 hrs yesterday. Afebrile. For HD today 06/06 Patient is on ventilator via trach spiked fever with T: 101.0 last night. s /p HD yesterday with removal 3L. 06/07 Patient s/p HD yesterday with removal 3L. T: 100.8 last night. On ventilator via trach remains encephalopathic. 06/08: Currently getting hemodialysis, no fever white count trending down. Slight improvement in neuro exam. Partial eye-opening to central pain. Withdraws bilateral upper extremity slightly to pain 06/09: No acute events overnight. Tolerated TP yesterday, increase TP time to 8- 10 hours today. at bedside 06/10: Tachypneic today, versus support increased to 15 to breathing 30-35 breaths per minute. Chest x-ray from yesterday and today showing the right upper lobe infiltrates. New sputum culture ordered. Levaquin will be continued , I have added cefepime and discussed with ID 06/11: Chest x-ray shows improving right upper lobe infiltrate. Hemodialysis yesterday with 5 L of fluid removed. Sputum culture pending 06/12: Patient tolerating TP. T max 99.7. Sputum culture with Enterobacter, clear white trach secretions. Neuro remains unchanged Objective Vital Signs Date Time Temp Pulse Resp B/P Pulse Ox O2 Delivery O2 Flow Rate FiO2 06/12/16 10:00 87 06/12/16 08:01 96 T-piece 15.00 40 06/12/16 08:00 99.7 24 140/75 Intake and Output 06/11/16 06/11/16 06/12/16 08:00 16:00 00:00 Intake Total 537 ml 740 ml 403 ml Output Total 75 ml 100 ml 50 ml Balance 462 ml 640 ml 353 ml Result Diagram: 06/11/16 0607 06/11/16 0607 Other Results Microbiology Date/Time Procedure Status Source Growth 06/10/16 14:40 Gram Stain - Final Complete Sputum Endotracheal 06/10/16 14:40 Sputum Culture - Final Complete Enterobacter Aerogenes Imaging Last Impressions Liver Ultrasound 06/06/16 0000 Signed Impressions: Service Date/Time: Monday, June 06, 2016 14:18 - CONCLUSION: 1. Liver slightly echogenic which can be seen with fatty infiltration. 2. Spleen not visualized. 3. There may be some minimal gallbladder sludge but no cholelithiasis or wall thickening. Carlitos Aguirre MD Chest X-Ray 06/06/16 0000 Signed Impressions: Service Date/Time: Monday, June 06, 2016 08:23 - CONCLUSION: Improving aeration. Satisfactory dialysis catheter positioning. Low Blood MD Upper Extremity Ultrasound 06/05/16 0000 Signed Impressions: Service Date/Time: Sunday, June 05, 2016 11:01 - CONCLUSION: Occlusive thrombus right cephalic vein and left basilic vein Shahid Sin MD Lower Extremity Ultrasound 06/05/16 0000 Signed Impressions: Service Date/Time: Sunday, June 05, 2016 16:05 - CONCLUSION: Normal examination. No evidence of DVT Shahid Sin MD Gastrostomy Tube Placement 06/02/16 0000 Signed Impressions: Service Date/Time: Thursday, June 02, 2016 12:31 - CONCLUSION: Uncomplicated gastrostomy tube placement as above. Isidro Flor MD Catheter Placement X-Ray 06/02/16 0000 Signed Impressions: Service Date/Time: Thursday, June 02, 2016 12:31 - CONCLUSION: 1. Uncomplicated line placement as above. 2. Patient currently has a modified left subclavian PermCath catheter that is being utilized as a temporary access. Isidro Flor MD Brain MRI 05/27/16 0000 Signed Impressions: Service Date/Time: Friday, May 27, 2016 12:17 - CONCLUSION: Multifocal bilateral T2 signal abnormalities in restricted diffusion concerning for bilateral lacunar infarcts. Carlitos Aguirre MD Head CT 05/16/16 0000 Signed Impressions: Service Date/Time: Monday, May 16, 2016 08:30 - CONCLUSION: Suspected bilateral basal ganglia calcifications are unchanged. No evidence of hemorrhage, edema, mass or mass effect. Stephen Quintanilla MD Abdomen/Pelvis CT 05/16/16 0000 Signed Impressions: Service Date/Time: Monday, May 16, 2016 08:39 - CONCLUSION: There are large areas of hemorrhage including the left retroperitoneum and psoas muscle, within the mesentery and a smaller area in the right psoas muscle. They don't appear to be related to the abdominal aorta or the internal iliac arteries. There is a small focal collection hemorrhage adjacent to the left external iliac artery as it enters the pelvis, but I don't believe that is related to the large amount of hemorrhage seen elsewhere. The areas of hemorrhage are large and multi-focal. Stephen Quintanilla MD CT Angiography 05/06/16 0000 Signed Impressions: Service Date/Time: Saturday, May 07, 2016 00:04 - CONCLUSION: 1. Lobar consolidation bilaterally in the lower lobes. 2. Negative for pulmonary embolism. Michael Colbert MD Objective Remarks GENERAL: 61-year-old AA male, morbidly obese on PSV via trach SKIN: Warm and dry. No rash HEAD: Atraumatic. Normocephalic. EYES: Pupils equal and round around 2-3 mm bilaterally and slightly reactive. No scleral icterus. Saccadic movements of the eyes noted ENT: No nasal bleeding or discharge. NECK: JVD difficult to assess due to body habitus. s/p Trach, no bleeding from site CARDIOVASCULAR: Normal S1, S2. Without murmur RESPIRATORY: Diminished breath sounds bilaterally due to body habitus. Breath sounds equal bilaterally. On TP GASTROINTESTINAL: Abdomen obese, non-tender, protuberant, distended. No guarding. PEG tube in place MUSCULOSKELETAL: Extremities with 1+ edema NEUROLOGICAL: Patient remains unresponsive, off sedation since morning of 05/23. Pupils are sluggishly reactive. Bilateral upper extremity mild withdrawal to pain. +ve Corneal reflex, gag reflex. Saccadic movements of the eyes intermittently. A/P Assessment and Plan Neuro/Psych: Bilateral basal ganglia infarcts, small punctate white matter infarcts on MRI Metabolic encephalopathy Patient remains unresponsive. Has been off sedation > two weeks. Neurology Dr. Felix. MRI of the brain done 05/16/16 shows small punctate white matter infarcts, bilateral basal ganglia infarcts. Repeat MRI brain 05/[address] 05/08, 05/16: negative acute. EEG 05/12 revealed generalized slowing right greater than left. No epileptiform activity. EEG 05/16: No seizure, severe encephalopathy. EEG 06/08 moderate encephalopathy, no seizure CV: Hemorrhagic shock due to left retroperitoneal hemorrhage-shock resolved Severe bradycardia and hypotension 05/17/16 most likely secondary to recurrent bleed Aberrant RCA off LCC Nonsustained V. tach single episode Diastolic heart failure Coronary artery disease Nonischemic cardiomyopathy secondary to hypertensive heart disease Hypertensive emergency On Labetalol 200 every 8, Hydralazine 50mg Q 8hrs, Cardizem 60mg QID Status post cardiac catheterization by Dr. Moy. No intervention performed. Known coronary artery artery disease to the first and second diagonals the LAD. Aberrant RCA off left coronary cups. No transfer to fo RCA for unroofing due to lack of improvement in neuro status Aspirin 81 mg on hold due to RP hemorrhage. Resumed 06/11/16 (Plavix DC d 05/15/[address] Marcano at that time in anticipation of probable unroofing surgery) Lipitor 20 mg by mouth daily held in light of elevated liver function tests 05/30 Short run 8-9 beats V-tach last evening with resolution, no intervention Pulm: Acute hypoxemic respiratory failure-extubated 05/13/16, re intubated 05/16/16 for airway protection New right upper lobe infiltrate Likely underlying STU Previous Right upper lobe mucus plugging Mucus plugging versus new RUL pneumonia-CT of the chest 06/10/16 showed right upper lobe patchy infiltrate Cefepime added 06/10, sputum culture sent S/P percutaneous tracheostomy. 8.0 Shiley 06/01 Ventilator bundle, SBT/TP's daily as tolerated. Currently will not tolerate TPs due to tachypnea Bronchodilator therapy every 4 hours and as needed. Pulm toilet, trach care GI: S/P large left retroperitoneal hemorrhage 05/15 Hypoalbuminemia Elevated LFT's Monitor LFT's, US liver: Liver slightly echogenic which can be seen with fatty infiltration. Minimal gallbladder sludge] Continue TF via PEG (Nepro at 50 cc an hour) Continue Protonix for GI prophylaxis Colace/Senokot twice a day for bowel regimen /Renal: Acute kidney failure due to ATN Anuria Chaudhry for accurate I's and O's in a critically ill patient HD started 05/17/16] Renal- Dr. Mcintosh Endo: Diabetes mellitus type 2 Hyperglycemia -SSI medium scale with accuchecks Q6 Heme: s/p Acute blood loss anemia with shock Large left retroperitoneal hemorrhage Right cephalic superficial thrombus left basilic thrombus/right PT THROMBUS Normocytic anemia Leukocytosis Monitor CBC, Heme is following. On Epogen with HD Hematology on board, Transfused 3 units PRBC stat on 05/16/16 Transfused 3 units PRBC and 2 units FFP Transfuse 1 unit PRBCs 05/19. Therapeutic Lovenox discontinued, aspirin placed on hold, now on DVT prophylactic dose of Heparin. Aspirin resumed 06/11/16 75 mg IV protamine slow infusion (D/W with Dr. mcintosh) on 05/16/16. Was on Lovenox 150 mg subcutaneous twice a day-DCd 05/16/16 ID: Aspiration pneumonia/Enterobacter aerogenes in sputum Leukocytosis -Mucus plugging versus new RUL pneumonia-check CT of the chest today to to -Cefepime added 06/10, sputum culture sent. Discussed with Dr. Vergara -On Aztreonam, ID Dr. Mariee . Monitor for signs of infection( Fever, WBC) -Pancultured 06/06 ( Blood, sputum, urine) -Patient s/p Cefepime and Flagyl course. Pertinent cultures 05/10 Sputum Enterobacter 05/07 - blood cultures 2 - negative 05/08 - sputum - negative 05/08 - urine - negative 05/08 - blood cultures - negative 05/13 - blood cx negative 05/13 - urine cx negative 05/16 - sputum Enterobacter aerogenes 05/16 - urine neg 131 - blood cultures neg 05/18 - blood cultures- negative 05/19 - bronchoscopy - Yeast 05/27 Sputum Enterobacter 06/02 Sputum: Enterobacter Urine cx: C. Glabrata MSK: History of spinal stenosis/laminectomy/left total knee replacement and left ring finger amputation PT evaluate and treat Access - Peripheral IV;'s Prophylaxis -GI - Protonix -DVT -Heparin 5000 SQ BID, SCD on L leg -06/05 Doppler US LE: No DVT -06/05 Doppler US UE: Right cephalic and left basilic occlusive thrombus- on SQ heparin per Heme. -05/25 Doppler US UE: Occlusive thrombus in the right distal cephalic vein. Nonocclusive thrombus in the left mid and distal basilic veins. Level 3 Tahmina Kelsey MD Jun 12, 2016 12:04
[2016-06-12 14:15] LABS: ALT (GPT) 227 U/L (12-78); ANION GAP 22 MEQ/L (5-15); AST (GOT) 166 U/L (15-37); BICARBONATE 18.6 MEQ/L (21.0-32.0); CHLORIDE 94 MEQ/L (98-107); GLOMERULAR FILTRATION RATE 11 ML/MIN (>89); POTASSIUM 5.8 MEQ/L (3.5-5.1); SODIUM (NA) 135 MEQ/L (136-145)
[2016-06-12 14:16] LABS: BLOOD UREA NITROGEN 130 MG/DL (7-18)
[2016-06-12 14:19] LABS: ALKALINE PHOSPHATASE 222 U/L (45-117); TOTAL BILIRUBIN ADULT 0.6 MG/DL (0.2-1.0)
[2016-06-13] VITALS (19 sets, daily range): BP systolic 128–163; BP diastolic 74–94; PULSE 76–92; RESP 23–30; TEMP 98.4–101.1; O2SAT 96–100
[2016-06-13] MEDS: INSULIN NovoLIN REGULAR SUPPLEMENTAL SCALE SQ SCH ×4 (01:53→18:46)
[2016-06-13] MEDS: CHLORHEXIDINE GLUCONATE 2 % 1 PACK (2 CLOTHS) TOP SCH (04:00)
[2016-06-13] MEDS: hydrALAZINE HCL 25 MG TAB PO SCH ×3 (05:44→21:08)
[2016-06-13] MEDS: LABETALOL HCL 200 MG TAB PO SCH ×3 (05:44→21:08)
[2016-06-13] MEDS: METOCLOPRAMIDE HCL 10 MG/2 ML VIAL IV PUSH SCH ×2 (05:45→06:00)
[2016-06-13 06:10] LABS: AUTOMATED NEUTROPHIL # 8.2 TH/MM3 (1.8-7.7); BASOPHIL # 0.1 TH/MM3 (0-0.2); BASOPHIL % 0.9 % (0.0-2.0); EOSINOPHIL # 0.2 TH/MM3 (0-0.4); EOSINOPHIL % 1.8 % (0.0-4.0); HEMATOCRIT 32.3 % (39.0-51.0); HEMO FLAGS DIFF FINAL; LYMPH % 9.1 % (9.0-44.0); MEAN CELL VOLUME 89.3 FL (80.0-100.0); MEAN CORPUSCULAR HEMOGLOBIN 28.7 PG (27.0-34.0); MEAN CORPUSCULAR HGB CONC 32.2 % (32.0-36.0); MONO % 10.9 % (0.0-8.0); NEUT % 77.3 % (16.0-70.0); PLATELET COUNT 276 TH/MM3 (150-450); RED BLOOD COUNT 3.62 MIL/MM3 (4.50-5.90); RED CELL DISTRIBUTION WIDTH 16.6 % (11.6-17.2); WHITE BLOOD COUNT 10.6 TH/MM3 (4.0-11.0)
[2016-06-13 06:27] LABS: ALKALINE PHOSPHATASE 222 U/L (45-117); ALT (GPT) 228 U/L (12-78); ANION GAP 18 MEQ/L (5-15); AST (GOT) 149 U/L (15-37); BICARBONATE 23.7 MEQ/L (21.0-32.0); BLOOD UREA NITROGEN 141 MG/DL (7-18); CHLORIDE 93 MEQ/L (98-107); GLOMERULAR FILTRATION RATE 10 ML/MIN (>89); POTASSIUM 4.9 MEQ/L (3.5-5.1); SODIUM (NA) 135 MEQ/L (136-145); TOTAL BILIRUBIN ADULT 0.6 MG/DL (0.2-1.0)
--- NOTE | 2016-06-13 06:47 | RADRPT ---
EXAM DATE/TIME: 06/13/2016 05:00 [facility] COMPARISON: CHEST SINGLE AP, June 11, 2016, 3:12. INDICATIONS : Respiratory distress. MEDICAL HISTORY : Myocardial infarction. Congestive heart failure. Hypertension. Diabetes. SURGICAL HISTORY : None. ENCOUNTER: Subsequent ACUITY: 1 month PAIN SCORE: Non-responsive. LOCATION: Bilateral chest FINDINGS: A single view of the chest demonstrates dual lumen left central line in superior vena cava. Tracheost jennifer in satisfactory position. Minimal basilar dependent opacity similar to June 11. CONCLUSION: 1. Support apparatus unchanged. Minimal basilar dependent opacity in the lungs. Marek Bowers MD on June 13, 2016 at 6:45 Board Certified Radiologist. This report was verified electronically.
[2016-06-13] MEDS: CHLORHEXIDINE 0.12% (ORAL KIT) 15 ML CUP MT SCH ×2 (07:15→19:56)
--- NOTE | 2016-06-13 08:06 | HHI.CCPN ---
Subjective Remarks/Hospital Course 61-year-old AA male. Date of admission 05/05/2016. Date of consultation 2016. Past medical history includes hypertensive heart disease, hypertension, diabetes mellitus type 2 and spinal stenosis. He presented to [facility] today with history of acute onset of diaphoresis, chest pain and syncope. Her documentation, Chest pain was 7 out of 10 without radiation. Later in the hospital physician, patient did have ST elevation anterior septal leads. I he had a cardiac catheterization in 2009 which revealed moderate coronary disease which documented 50-60% stenosis in the LAD diagonals 1 and 2. Recommended medical management at that time. Dr. Marcano was notified and proceed to the cardiac catheter lab. Patient sees heparin and one aspirin prior to cardiac catheterization. During heart catheterization,, patient became hypertensive, tachypneic, hypoxic and agitated including abdominal pain with nausea and vomiting. Patient was intubated by Dr. Simon and dispensed transferred to room 505a. Currently hemodynamic stable on a propofol drip. 05/06: Patient required additional sedation overnight. Was moving all 4 extremity spontaneously and strongly. Potassium is replaced overnight along with magnesium. This afternoon approximate 4 PM, patient went into a sinus bradycardia in the 40s. RN cannot locate pulse and possibly went into a PEA arrest. Patient received CPR for approximately 2 minutes. ROSC return immediately. Received 1 mg of epinephrine IV. Blood pressure was 240 systolic. Saturations were above 90% the entire time. Dr. Marcano was made aware. No new recommendations at this time. Electrolytes currently pending. Patient is currently hemodynamic stable and an arterial line/left radial has been placed 05/07: no improvement in delirium or mental status. spiking low grade fevers. 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 CT surgery consulted and declined to operate here: he will need referral once stabilized. fio2 requirements still high. CT chest also with evidence of bibasilar consolidation which may be aspiration pneumonitis vs. pneumonia now that we are 48h out from initial presentation and now spiking fevers. 05/08: delirium persists. continues to spike fevers. jolly cultured yesterday without results yet. holding sedation today. 05/09: delirium slightly improved. waking up on SAT, weakly following commands. cultures still NGTD. hypoxia slightly improved. 05/10: delirium improving. weakly following commands still. cultures still NGTD. fevers persist, although fever curve appears to be improving. hypoxia continues to improve. still remains very critically ill. 05/11: Tmax 99.9. Currently 99.1. Tolerating tube feeding. One bowel movement. Continues to have difficulty weaning ventilator. 05/12: Currently afebrile. Tolerating tube feeding. Positive BM. Increased FiO2 from 45-60%. +1 L. Arousable on sedation vacation and weakly follows commands. 05/13: Remains intubated, sedated. FiO2 now reduced to 45% (was 55% today am). Start weaning trials after starting Precedex. To control BP May use Cardene, given anomalous RCA 05/14: Extubated yesterday, remained on BiPAP overnight. Intermittently agitated. Following commands to me today, while on BiPAP. Remains on Cardene infusion for uncontrolled hypertension. Urine output 4.7 L in 24 hours 05/15: On 3 L nasal cannula. Fever trending down, breathing more comfortably. Able to communicate. Discussed with Dr. Marcano. Dr. Pendleton will be available tomorrow, will probably need transfer to [facility] for RCA unroofing 05/16: Acutely hypotensive overnight with tachycardia. MAP was 55 with greater than 130s. Received 3.5 L of normal saline bolus with improvement in blood pressure and heart rate. Lethargic on BiPAP. ABG pending, HB dropped from 10.9 to 7.8. No obvious source of bleeding. STAT 2U PRBC. STAT CT head and CT abd pelvis. R/O ICH or RP bleed. Patient received only 5mg Nicci at 2100 yesterday, no other sedation. Last dose of Lovenox was at 211, held now 05/17: Developed Hemorrhagic shock from large retroperitoneal hemorrhage night to 05/15/16. Stabilized after 3 units of PRBC and protamine. Hemoglobin 8.7 today. Remain encephalopathy and unresponsive yesterday. MRI 05/16/16 shows small punctate white matter infarcts, bilateral basal ganglia infarcts. Urology consult pending. Antiplatelet drugs on hold. Now with anuria from ATN secondary to shock. Nephrology consult pending 05/18: Developed sudden onset bradycardia in 40s, with acute hypotension yesterday evening around 5 PM. ACLS protocol initiated (did not arrest or lose pulse). Received multiple epinephrine, bicarbonate calcium and fluid boluses. Patient was placed on dopamine 20 mics per KG per minute, Levophed 20 mics per KG per minute, epinephrine 2.5 mics per minute and eventually stabilized with systolic blood pressure reading 120s. Hemoglobin on ABG was 7 and emergently transfused 3 units PRBC and 2 units FFP. Lab hemoglobin came back at 6.8. Patient also was profoundly acidemic with pH of 7.16. Patient received total 3 A of bicarbonate and bicarbonate infusion was started, minute ventilation was also increased. 2: MAXIMUM TEMPERATURE 100.3. Currently 99.5. No bowel movement. Tube feeds were restarted. FiO2 50%. PEEP at 8. 05/20: MAXIMUM TEMPERATURE 100.9. Positive BM. Tube feeds were restarted today. PT plateau. FiO2 down to 85%. Semiemergent bronchoscopy yesterday for right upper lobe airway obstruction. Resolved 05/21: MAXIMUM TEMPERATURE 100.7. Currently 99.6. Somewhat tachycardic. 2 bowel movements overnight. Tolerating tube feeds at 30 cc an hour. Had episode of emesis overnight. 05/22: Remains sedated, orally intubated on mechanical ventilation. 05/23: Remains sedated, orally intubated on mechanical ventilation. Dialyzed yesterday. 05/24: Remains sedated/encephalopathic, orally intubated on mechanical ventilation. Tolerating tube feeds. Awaiting dialysis 05/25: Remains encephalopathic, orally intubated on mechanical ventilation. Off sedation for 2 days now. PEEP decreased to to +7 10 No acute events overnight. For HD today. Afebrile. On PRVC/AC 20, TV 550, PEEP: 6, IT: 1.2 and FIO2 35%. On no sedation. Tolerating tube feeds. Subjective 05/27: Tmax 99.8. Currently 99.1. FiO2 down to 35%. Tolerating tube feeding. Positive BM. MRI brain reveals bilateral lacunar infarcts. Will likely need trach 05/28: Afebrile. The patient continues on CPAP trials 28/09 FiO2 of 35%, maintaining O2 sat at 97%. 05/29: The patient continues on CPAP trials. The patient underwent hemodialysis today. The patient is noted to be a medium dose sliding scale insulin with persistent hyperglycemia will increase to high-dose insulin sliding scale. Per hematology the patient was placed on heparin infusion initially, then discontinued.. 05/30 Tmax 100.1. S/P initiation of therapeutic anticoagulation ,serial hemoglobin stable, continue to monitor every 12 hours. Patient continues to fail CPAP trials, plan for tracheostomy, Discussed with patient spouse, she desires a trach and PEG, at this time. 05/31 Tmax 100.1. Maintaining CPAP trials occasionally 3-4 hours. Discussed with family risk and benefits of tracheostomy. Discussed with family MRI results, EEG results. Family requests continue aggressive support. Plan for percutaneous tracheostomy . GI consulted for PEG placement. 06/01 Percutaneous tracheostomy performed today. Plan for patient to go to IR for new Vas-Cath placement per nephrology. 06/02 Patient s/p trach yesterday. For PEG tube placement and HD today today. On no sedation. T: 100.2 06/03 Patient s/p PEG tube placement and HD yesterday with removal 5L. Afebrile. Remains off sedation. 06/04 no acute events overnight. Tolerating C Pap. Will place on T piece 2-4 hours. No change in neuro exam 06/05 No acute events overnight. Tolerated CPAP/TP's trials for 4 hrs yesterday. Afebrile. For HD today 06/06 Patient is on ventilator via trach spiked fever with T: 101.0 last night. s /p HD yesterday with removal 3L. 06/07 Patient s/p HD yesterday with removal 3L. T: 100.8 last night. On ventilator via trach remains encephalopathic. 06/08: Currently getting hemodialysis, no fever white count trending down. Slight improvement in neuro exam. Partial eye-opening to central pain. Withdraws bilateral upper extremity slightly to pain 06/09: No acute events overnight. Tolerated TP yesterday, increase TP time to 8- 10 hours today. at bedside 06/10: Tachypneic today, versus support increased to 15 to breathing 30-35 breaths per minute. Chest x-ray from yesterday and today showing the right upper lobe infiltrates. New sputum culture ordered. Levaquin will be continued , I have added cefepime and discussed with ID 06/11: Chest x-ray shows improving right upper lobe infiltrate. Hemodialysis yesterday with 5 L of fluid removed. Sputum culture pending 06/12: Patient tolerating TP. T max 99.7. Sputum culture with Enterobacter, clear white trach secretions. Neuro remains unchanged 06/13 No acute events overnight. Afebrile. On CPAP 01/18 with 35% FIO2 overnight. For HD today. Objective Vital Signs Date Time Temp Pulse Resp B/P Pulse Ox O2 Delivery O2 Flow Rate FiO2 06/13/16 07:39 96 T-piece 40 06/13/16 07:00 6.00 06/13/16 06:00 83 06/13/16 04:00 98.9 23 157/89 Intake and Output 06/12/16 06/12/16 06/13/16 08:00 16:00 00:00 Intake Total 283 ml 512 ml 548 ml Output Total 75 ml 100 ml 150.0 ml Balance 208 ml 412 ml 398.0 ml Result Diagram: 06/13/16 0548 06/13/16 0548 Other Results Laboratory Tests Test 06/12/16 06/13/16 13:07 05:48 Sodium Level 135 MEQ/L 135 MEQ/L Potassium Level 5.8 MEQ/L 4.9 MEQ/L Chloride Level 94 MEQ/L 93 MEQ/L Carbon Dioxide Level 18.6 MEQ/L 23.7 MEQ/L Anion Gap 22 MEQ/L 18 MEQ/L Blood Urea Nitrogen 130 MG/DL 141 MG/DL Creatinine 6.46 MG/DL 6.95 MG/DL Estimat Glomerular Filtration 11 ML/MIN 10 ML/MIN Rate Random Glucose 210 MG/DL 227 MG/DL Calcium Level 8.9 MG/DL 8.7 MG/DL Total Bilirubin 0.6 MG/DL 0.6 MG/DL Aspartate Amino Transf 166 U/L 149 U/L (AST/SGOT) Alanine Aminotransferase 227 U/L 228 U/L (ALT/SGPT) Alkaline Phosphatase 222 U/L 222 U/L Total Protein 7.0 GM/DL 7.5 GM/DL Albumin 2.6 GM/DL 2.6 GM/DL White Blood Count 10.6 TH/MM3 Red Blood Count 3.62 MIL/MM3 Hemoglobin 10.4 GM/DL Hematocrit 32.3 % Mean Corpuscular Volume 89.3 FL Mean Corpuscular Hemoglobin 28.7 PG Mean Corpuscular Hemoglobin 32.2 % Concent Red Cell Distribution Width 16.6 % Platelet Count 276 TH/MM3 Mean Platelet Volume 8.3 FL Neutrophils (%) (Auto) 77.3 % Lymphocytes (%) (Auto) 9.1 % Monocytes (%) (Auto) 10.9 % Eosinophils (%) (Auto) 1.8 % Basophils (%) (Auto) 0.9 % Neutrophils # (Auto) 8.2 TH/MM3 Lymphocytes # (Auto) 1.0 TH/MM3 Monocytes # (Auto) 1.2 TH/MM3 Eosinophils # (Auto) 0.2 TH/MM3 Basophils # (Auto) 0.1 TH/MM3 CBC Comment DIFF FINAL Differential Comment Imaging Last Impressions Chest X-Ray 06/13/16 0600 Signed Impressions: Service Date/Time: Monday, June 13, 2016 05:00 - CONCLUSION: 1. Support apparatus unchanged. Minimal basilar dependent opacity in the lungs. Marek Bowers MD Chest CT 06/10/16 0000 Signed Impressions: Service Date/Time: Friday, June 10, 2016 16:11 - CONCLUSION: 1. Patchy infiltrates right upper lobe, left upper lobe and superior segments of the lower lobes. 2. Thickening of the right major fissure. 3. Bilateral gynecomastia. 4. Coronary artery calcifications. Carlitos Aguirre MD Liver Ultrasound 06/06/16 0000 Signed Impressions: Service Date/Time: Monday, June 06, 2016 14:18 - CONCLUSION: 1. Liver slightly echogenic which can be seen with fatty infiltration. 2. Spleen not visualized. 3. There may be some minimal gallbladder sludge but no cholelithiasis or wall thickening. Carlitos Aguirre MD Upper Extremity Ultrasound 06/05/16 0000 Signed Impressions: Service Date/Time: Sunday, June 05, 2016 11:01 - CONCLUSION: Occlusive thrombus right cephalic vein and left basilic vein Shahid Sin MD Lower Extremity Ultrasound 06/05/16 0000 Signed Impressions: Service Date/Time: Sunday, June 05, 2016 16:05 - CONCLUSION: Normal examination. No evidence of DVT Shahid Sin MD Gastrostomy Tube Placement 06/02/16 0000 Signed Impressions: Service Date/Time: Thursday, June 02, 2016 12:31 - CONCLUSION: Uncomplicated gastrostomy tube placement as above. Isidro Flor MD Catheter Placement X-Ray 06/02/16 0000 Signed Impressions: Service Date/Time: Thursday, June 02, 2016 12:31 - CONCLUSION: 1. Uncomplicated line placement as above. 2. Patient currently has a modified left subclavian PermCath catheter that is being utilized as a temporary access. Isidro Flor MD Brain MRI 05/27/16 0000 Signed Impressions: Service Date/Time: Friday, May 27, 2016 12:17 - CONCLUSION: Multifocal bilateral T2 signal abnormalities in restricted diffusion concerning for bilateral lacunar infarcts. Carlitos Aguirre MD Head CT 05/16/16 0000 Signed Impressions: Service Date/Time: Monday, May 16, 2016 08:30 - CONCLUSION: Suspected bilateral basal ganglia calcifications are unchanged. No evidence of hemorrhage, edema, mass or mass effect. Stephen Quintanilla MD Abdomen/Pelvis CT 05/16/16 0000 Signed Impressions: Service Date/Time: Monday, May 16, 2016 08:39 - CONCLUSION: There are large areas of hemorrhage including the left retroperitoneum and psoas muscle, within the mesentery and a smaller area in the right psoas muscle. They don't appear to be related to the abdominal aorta or the internal iliac arteries. There is a small focal collection hemorrhage adjacent to the left external iliac artery as it enters the pelvis, but I don't believe that is related to the large amount of hemorrhage seen elsewhere. The areas of hemorrhage are large and multi-focal. Stephen Quintanilla MD CT Angiography 05/06/16 0000 Signed Impressions: Service Date/Time: Saturday, May 07, 2016 00:04 - CONCLUSION: 1. Lobar consolidation bilaterally in the lower lobes. 2. Negative for pulmonary embolism. Michael Colbert MD Objective Remarks GENERAL: 61-year-old AA male, morbidly obese on PSV via trach SKIN: Warm and dry. No rash HEAD: Atraumatic. Normocephalic. EYES: Pupils equal and round around 2-3 mm bilaterally and slightly reactive. No scleral icterus. Saccadic movements of the eyes noted ENT: No nasal bleeding or discharge. NECK: JVD difficult to assess due to body habitus. s/p Trach, no bleeding from site CARDIOVASCULAR: Normal S1, S2. Without murmur RESPIRATORY: Diminished breath sounds bilaterally due to body habitus. Breath sounds equal bilaterally. On TP GASTROINTESTINAL: Abdomen obese, non-tender, protuberant, distended. No guarding. PEG tube in place MUSCULOSKELETAL: Extremities with 1+ edema NEUROLOGICAL: Patient remains unresponsive, off sedation since morning of 05/23. Pupils are sluggishly reactive. Bilateral upper extremity mild withdrawal to pain. +ve Corneal reflex, gag reflex. Saccadic movements of the eyes intermittently. A/P Assessment and Plan Neuro/Psych: Bilateral basal ganglia infarcts, small punctate white matter infarcts on MRI Metabolic encephalopathy Patient remains unresponsive. Has been off sedation > two weeks. Neurology Dr. Felix. MRI of the brain done 05/16/16 shows small punctate white matter infarcts, bilateral basal ganglia infarcts. Repeat MRI brain 05/[address] 05/08, 05/16: negative acute. EEG 05/12 revealed generalized slowing right greater than left. No epileptiform activity. EEG 05/16: No seizure, severe encephalopathy. EEG 06/08 moderate encephalopathy, no seizure CV: Hemorrhagic shock due to left retroperitoneal hemorrhage-shock resolved Severe bradycardia and hypotension 05/17/16 most likely secondary to recurrent bleed Aberrant RCA off LCC Nonsustained V. tach single episode Diastolic heart failure Coronary artery disease Nonischemic cardiomyopathy secondary to hypertensive heart disease Hypertensive emergency On Labetalol 200 every 8, Hydralazine 50mg Q 8hrs, Cardizem 60mg QID Status post cardiac catheterization by Dr. Moy. No intervention performed. Known coronary artery artery disease to the first and second diagonals the LAD. Aberrant RCA off left coronary cups. No transfer to fo RCA for unroofing due to lack of improvement in neuro status Aspirin 81 mg on hold due to RP hemorrhage. Resumed 06/11/16 (Plavix DC d 05/15/[address] Marcano at that time in anticipation of probable unroofing surgery) Lipitor 20 mg by mouth daily held in light of elevated liver function tests 05/30 Short run 8-9 beats V-tach last evening with resolution, no intervention Pulm: Acute hypoxemic respiratory failure-extubated 05/13/16, re intubated 05/16/16 for airway protection New right upper lobe infiltrate Likely underlying STU Previous Right upper lobe mucus plugging Continue with vent support keep sat >92% S/P percutaneous tracheostomy. 8.0 Yasmine 06/01 Ventilator bundle, SBT/TP's daily as tolerated. Bronchodilator therapy every 4 hours and as needed. Pulm toilet, trach care GI: S/P large left retroperitoneal hemorrhage 05/15 Hypoalbuminemia Elevated LFT's Monitor LFT's, US liver: Liver slightly echogenic which can be seen with fatty infiltration. Minimal gallbladder sludge] Continue TF via PEG (Nepro at 50 cc an hour) Continue Protonix for GI prophylaxis /Renal: Acute kidney failure due to ATN Anuria Chaudhry for accurate I's and O's in a critically ill patient HD started 05/17/16] Renal- Dr. Mcintosh. For HD today Endo: Diabetes mellitus type 2 Hyperglycemia -SSI medium scale with accuchecks Q6 Heme: s/p Acute blood loss anemia with shock Large left retroperitoneal hemorrhage Right cephalic superficial thrombus left basilic thrombus/right PT THROMBUS Normocytic anemia Leukocytosis Monitor CBC, Heme is following. On Epogen with HD Transfused 3 units PRBC stat on 05/16/16 Transfused 3 units PRBC and 2 units FFP Transfuse 1 unit PRBCs 05/19. Therapeutic Lovenox discontinued, aspirin placed on hold, now on DVT prophylactic dose of Heparin. Aspirin resumed 06/11/16 75 mg IV protamine slow infusion (D/W with Dr. mcintosh) on 05/16/16. Was on Lovenox 150 mg subcutaneous twice a day-DCd 05/16/16 ID: Aspiration pneumonia/Enterobacter aerogenes in sputum Leukocytosis -Mucus plugging versus new RUL pneumonia-check CT of the chest today to to -Continue with abx per ID ( Cefepime, Levaquin)monitor for signs of infections ( Fever, WBC) Pertinent cultures 05/10 Sputum Enterobacter 05/07 - blood cultures 2 - negative 05/08 - sputum - negative 05/08 - urine - negative 05/08 - blood cultures - negative 05/13 - blood cx negative 05/13 - urine cx negative 05/16 - sputum Enterobacter aerogenes 05/16 - urine neg 131 - blood cultures neg 05/18 - blood cultures- negative 05/19 - bronchoscopy - Yeast 05/27 Sputum Enterobacter 06/02, 06/06. 06/10 Sputum: Enterobacter 06/06 Urine cx: C. Glabrata MSK: History of spinal stenosis/laminectomy/left total knee replacement and left ring finger amputation PT evaluate and treat Access - Peripheral IV;'s Prophylaxis -GI - Protonix 40mg daily -DVT -Heparin 5000 SQ BID, SCD on L leg -06/05 Doppler US LE: No DVT -06/05 Doppler US UE: Right cephalic and left basilic occlusive thrombus- on SQ heparin per Heme. -05/25 Doppler US UE: Occlusive thrombus in the right distal cephalic vein. Nonocclusive thrombus in the left mid and distal basilic veins. Level 3 Adryan Augustine MD Jun 13, 2016 08:06
[2016-06-13] MEDS: SODIUM CHLOR 0.9% 1000 ML INJ 1,000 ML IV PRN ×2 (08:22)
[2016-06-13] MEDS: HEPARIN SODIUM - IV 10,000 UNITS/10 ML VIAL PRN (08:23)
[2016-06-13] MEDS: GENTAMICIN SULFATE (DIALYSIS USE ONLY) 20 MG/2 ML VIAL IV PRN (08:24)
[2016-06-13] MEDS: EPOETIN ALFA 10,000 UNITS/ML VIAL IV PRN (08:24)
[2016-06-13] MEDS: SODIUM CHLORIDE 0.9% FLUSH 5 ML FLUSH IVF PRN (08:25)
[2016-06-13] MEDS: ARTIFICIAL TEARS OPTH SOLN 15 ML BTL EACH EYE SCH ×3 (09:00→17:43)
--- NOTE | 2016-06-13 10:37 | HHI.NPPN ---
Subjective History of Present Illness 61 year old with ARF, CHF, Respiratory failure Additional Remarks Patient s/p Trach and off sedation, remain unresponsive, now on HD. Objective Data Data 06/12/16 06/13/16 19:00 07:00 Intake Total 512 ml 877 ml Output Total 100 ml 250.0 ml Balance 412 ml 627.0 ml IV Total 108 ml 0 ml Tube Feeding 404 ml 757 ml Other 120 ml Output Urine Total 100 ml 250 ml Tube Feeding Residual Discard 0 ml # Bowel Movements 3 Vital Signs Date Time Temp Pulse Resp B/P Pulse Ox O2 Delivery O2 Flow Rate FiO2 06/13/16 10:00 85 06/13/16 08:00 98.4 83 28 163/94 98 06/13/16 08:00 84 06/13/16 07:39 96 T-piece 40 06/13/16 07:00 T-Piece 6.00 28 06/13/16 06:00 83 06/13/16 04:32 100 40 06/13/16 04:00 98.9 79 23 157/89 100 06/13/16 04:00 79 06/13/16 02:00 76 06/13/16 00:38 100 35 06/13/16 00:00 77 06/13/16 00:00 98.9 77 30 149/89 97 06/12/16 22:00 71 06/12/16 20:00 98 Bi-Pap 35 06/12/16 20:00 78 06/12/16 20:00 98.7 78 18 141/84 97 06/12/16 19:54 98 35 06/12/16 18:00 76 06/12/16 16:27 99 35 06/12/16 16:25 40 06/12/16 16:00 98.5 80 26 150/78 100 06/12/16 16:00 79 06/12/16 14:00 78 06/12/16 12:00 99.6 84 30 151/77 96 06/12/16 12:00 84 -: 06/13/16 0548 06/13/16 0548 Physical Exam General Appearance: Obese Neck Neck Exam: Neck Supple Pulmonary Resp Exam: Rhonchi, Decreased Bases, Diminished Breath Sounds, Poor Inspiratory Effort Cardiology CV Exam: Tachycardia Gastrointestinal/Abdomen GI Exam: Soft, Non-Tender, Distended Extremeties Extremities Exam: Moderate Edema, Pitting Edema, Dependent Edema Neurologic Neuro Exam: Unresponsive Assessment/Plan Problem List: (1) Acute renal failure Plan: Patient has oliguric acute renal failure and remains essentially oliguric. Continue with HD BUN and Creatinine higher multiple CVA Anoxic Encephalopathy S/P Trach. HD TTS seen during hemodialysis 4.5 L off No improvement neurologically. 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 Plan: Cardiology following (4) Acute hypoxemic respiratory failure Plan: On ventilator (5) Hypertensive emergency Plan: BP improved (6) Diabetes mellitus Plan: Continue monitor blood glucose (7) CAD (coronary artery disease) Plan: Presented with STEMI, follow with cardiology (8) Subsequent ST elevation (STEMI) myocardial infarction of anterior wall Plan: Planned transfer to [facility] when stable. No intervention performed here. Problem Qualifiers (1) Acute renal failure: Qualified Code: N17.0 - Acute renal failure with tubular necrosis (2) Diabetes mellitus: Qualified Code: E13.8 - Diabetes mellitus of other type with complication, unspecified correction insulin use status (3) CAD (coronary artery disease): Qualified Code: I25.10 - Coronary artery disease, angina presence unspecified, unspecified vessel or lesion type, unspecified whether [place] or transplanted heart Linda Mcintosh MD Jun 13, 2016 10:37
[2016-06-13] MEDS: CEFEPIME INJ 1,000 MG in SODIUM CHLORIDE 0.9% INJ 100 ML IV SCH (11:30)
[2016-06-13] MEDS: SODIUM CHLORIDE 0.9% FLUSH 5 ML FLUSH IV FLUSH SCH ×2 (11:31→19:56)
[2016-06-13] MEDS: ASPIRIN 81 MG CHEW TAB CHEW SCH (11:31)
[2016-06-13] MEDS: HEPARIN SODIUM - SQ 10,000 UNITS/ML VIAL SQ SCH ×2 (11:31→21:08)
[2016-06-13] MEDS: PANTOPRAZOLE SODIUM 40 MG VIAL IV PUSH SCH (11:31)
[2016-06-13] MEDS: DILTIAZEM HCL 60 MG TAB PO SCH ×4 (11:31→21:08)
[2016-06-13] MEDS: LEVOFLOXACIN 250 MG TAB PO SCH (13:02)
[2016-06-13] MEDS: RESP: ALBUTEROL 2.5 MG/IPRATROPIUM 0.5 MG NEB (PRN) INH (16:10)
[2016-06-13] MEDS: ACETAMINOPHEN 650 MG/20.3 ML UDC TUBE PRN (23:44)
[2016-06-14] VITALS (16 sets, daily range): BP systolic 127–148; BP diastolic 71–83; PULSE 76–95; RESP 21–32; TEMP 97.7–99.8; O2SAT 97–100
[2016-06-14] MEDS: INSULIN NovoLIN REGULAR SUPPLEMENTAL SCALE SQ SCH ×4 (01:42→22:15)
[2016-06-14] MEDS: CHLORHEXIDINE GLUCONATE 2 % 1 PACK (2 CLOTHS) TOP SCH (03:43)
[2016-06-14] MEDS: LABETALOL HCL 200 MG TAB PO SCH ×3 (05:36→22:15)
[2016-06-14] MEDS: hydrALAZINE HCL 25 MG TAB PO SCH ×3 (05:36→22:16)
[2016-06-14 05:58] LABS: AUTOMATED NEUTROPHIL # 6.9 TH/MM3 (1.8-7.7); BASOPHIL # 0.1 TH/MM3 (0-0.2); BASOPHIL % 0.6 % (0.0-2.0); EOSINOPHIL # 0.1 TH/MM3 (0-0.4); HEMATOCRIT 31.9 % (39.0-51.0); HEMO FLAGS DIFF FINAL; LYMPH % 11.9 % (9.0-44.0); LYMPHOCYTE # 1.1 TH/MM3 (1.0-4.8); MEAN CELL VOLUME 88.4 FL (80.0-100.0); MEAN CORPUSCULAR HEMOGLOBIN 29.3 PG (27.0-34.0); MEAN CORPUSCULAR HGB CONC 33.1 % (32.0-36.0); MONO % 13.2 % (0.0-8.0); NEUT % 73.3 % (16.0-70.0); PLATELET COUNT 316 TH/MM3 (150-450); RED BLOOD COUNT 3.61 MIL/MM3 (4.50-5.90); RED CELL DISTRIBUTION WIDTH 16.2 % (11.6-17.2); WHITE BLOOD COUNT 9.5 TH/MM3 (4.0-11.0)
[2016-06-14 06:26] LABS: ALKALINE PHOSPHATASE 219 U/L (45-117); ALT (GPT) 200 U/L (12-78); ANION GAP 14 MEQ/L (5-15); AST (GOT) 118 U/L (15-37); BICARBONATE 26.8 MEQ/L (21.0-32.0); BLOOD UREA NITROGEN 97 MG/DL (7-18); CHLORIDE 95 MEQ/L (98-107); GLOMERULAR FILTRATION RATE 12 ML/MIN (>89); POTASSIUM 4.1 MEQ/L (3.5-5.1); SODIUM (NA) 136 MEQ/L (136-145); TOTAL BILIRUBIN ADULT 0.5 MG/DL (0.2-1.0)
--- NOTE | 2016-06-14 07:53 | HHI.CCPN ---
Subjective Remarks/Hospital Course 61-year-old AA male. Date of admission 05/05/2016. Date of consultation 2016. Past medical history includes hypertensive heart disease, hypertension, diabetes mellitus type 2 and spinal stenosis. He presented to [facility] today with history of acute onset of diaphoresis, chest pain and syncope. Her documentation, Chest pain was 7 out of 10 without radiation. Later in the hospital physician, patient did have ST elevation anterior septal leads. I he had a cardiac catheterization in 2009 which revealed moderate coronary disease which documented 50-60% stenosis in the LAD diagonals 1 and 2. Recommended medical management at that time. Dr. Marcano was notified and proceed to the cardiac catheter lab. Patient sees heparin and one aspirin prior to cardiac catheterization. During heart catheterization,, patient became hypertensive, tachypneic, hypoxic and agitated including abdominal pain with nausea and vomiting. Patient was intubated by Dr. Simon and dispensed transferred to room 505a. Currently hemodynamic stable on a propofol drip. 05/06: Patient required additional sedation overnight. Was moving all 4 extremity spontaneously and strongly. Potassium is replaced overnight along with magnesium. This afternoon approximate 4 PM, patient went into a sinus bradycardia in the 40s. RN cannot locate pulse and possibly went into a PEA arrest. Patient received CPR for approximately 2 minutes. ROSC return immediately. Received 1 mg of epinephrine IV. Blood pressure was 240 systolic. Saturations were above 90% the entire time. Dr. Marcano was made aware. No new recommendations at this time. Electrolytes currently pending. Patient is currently hemodynamic stable and an arterial line/left radial has been placed 05/07: no improvement in delirium or mental status. spiking low grade fevers. 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 CT surgery consulted and declined to operate here: he will need referral once stabilized. fio2 requirements still high. CT chest also with evidence of bibasilar consolidation which may be aspiration pneumonitis vs. pneumonia now that we are 48h out from initial presentation and now spiking fevers. 05/08: delirium persists. continues to spike fevers. jolly cultured yesterday without results yet. holding sedation today. 05/09: delirium slightly improved. waking up on SAT, weakly following commands. cultures still NGTD. hypoxia slightly improved. 05/10: delirium improving. weakly following commands still. cultures still NGTD. fevers persist, although fever curve appears to be improving. hypoxia continues to improve. still remains very critically ill. 05/11: Tmax 99.9. Currently 99.1. Tolerating tube feeding. One bowel movement. Continues to have difficulty weaning ventilator. 05/12: Currently afebrile. Tolerating tube feeding. Positive BM. Increased FiO2 from 45-60%. +1 L. Arousable on sedation vacation and weakly follows commands. 05/13: Remains intubated, sedated. FiO2 now reduced to 45% (was 55% today am). Start weaning trials after starting Precedex. To control BP May use Cardene, given anomalous RCA 05/14: Extubated yesterday, remained on BiPAP overnight. Intermittently agitated. Following commands to me today, while on BiPAP. Remains on Cardene infusion for uncontrolled hypertension. Urine output 4.7 L in 24 hours 05/15: On 3 L nasal cannula. Fever trending down, breathing more comfortably. Able to communicate. Discussed with Dr. Marcano. Dr. Pendleton will be available tomorrow, will probably need transfer to [facility] for RCA unroofing 05/16: Acutely hypotensive overnight with tachycardia. MAP was 55 with greater than 130s. Received 3.5 L of normal saline bolus with improvement in blood pressure and heart rate. Lethargic on BiPAP. ABG pending, HB dropped from 10.9 to 7.8. No obvious source of bleeding. STAT 2U PRBC. STAT CT head and CT abd pelvis. R/O ICH or RP bleed. Patient received only 5mg Nicci at 2100 yesterday, no other sedation. Last dose of Lovenox was at 211, held now 05/17: Developed Hemorrhagic shock from large retroperitoneal hemorrhage night to 05/15/16. Stabilized after 3 units of PRBC and protamine. Hemoglobin 8.7 today. Remain encephalopathy and unresponsive yesterday. MRI 05/16/16 shows small punctate white matter infarcts, bilateral basal ganglia infarcts. Urology consult pending. Antiplatelet drugs on hold. Now with anuria from ATN secondary to shock. Nephrology consult pending 05/18: Developed sudden onset bradycardia in 40s, with acute hypotension yesterday evening around 5 PM. ACLS protocol initiated (did not arrest or lose pulse). Received multiple epinephrine, bicarbonate calcium and fluid boluses. Patient was placed on dopamine 20 mics per KG per minute, Levophed 20 mics per KG per minute, epinephrine 2.5 mics per minute and eventually stabilized with systolic blood pressure reading 120s. Hemoglobin on ABG was 7 and emergently transfused 3 units PRBC and 2 units FFP. Lab hemoglobin came back at 6.8. Patient also was profoundly acidemic with pH of 7.16. Patient received total 3 A of bicarbonate and bicarbonate infusion was started, minute ventilation was also increased. 2: MAXIMUM TEMPERATURE 100.3. Currently 99.5. No bowel movement. Tube feeds were restarted. FiO2 50%. PEEP at 8. 05/20: MAXIMUM TEMPERATURE 100.9. Positive BM. Tube feeds were restarted today. PT plateau. FiO2 down to 85%. Semiemergent bronchoscopy yesterday for right upper lobe airway obstruction. Resolved 05/21: MAXIMUM TEMPERATURE 100.7. Currently 99.6. Somewhat tachycardic. 2 bowel movements overnight. Tolerating tube feeds at 30 cc an hour. Had episode of emesis overnight. 05/22: Remains sedated, orally intubated on mechanical ventilation. 05/23: Remains sedated, orally intubated on mechanical ventilation. Dialyzed yesterday. 05/24: Remains sedated/encephalopathic, orally intubated on mechanical ventilation. Tolerating tube feeds. Awaiting dialysis 05/25: Remains encephalopathic, orally intubated on mechanical ventilation. Off sedation for 2 days now. PEEP decreased to to +7 10 No acute events overnight. For HD today. Afebrile. On PRVC/AC 20, TV 550, PEEP: 6, IT: 1.2 and FIO2 35%. On no sedation. Tolerating tube feeds. Subjective 05/27: Tmax 99.8. Currently 99.1. FiO2 down to 35%. Tolerating tube feeding. Positive BM. MRI brain reveals bilateral lacunar infarcts. Will likely need trach 05/28: Afebrile. The patient continues on CPAP trials 28/09 FiO2 of 35%, maintaining O2 sat at 97%. 05/29: The patient continues on CPAP trials. The patient underwent hemodialysis today. The patient is noted to be a medium dose sliding scale insulin with persistent hyperglycemia will increase to high-dose insulin sliding scale. Per hematology the patient was placed on heparin infusion initially, then discontinued.. 05/30 Tmax 100.1. S/P initiation of therapeutic anticoagulation ,serial hemoglobin stable, continue to monitor every 12 hours. Patient continues to fail CPAP trials, plan for tracheostomy, Discussed with patient spouse, she desires a trach and PEG, at this time. 05/31 Tmax 100.1. Maintaining CPAP trials occasionally 3-4 hours. Discussed with family risk and benefits of tracheostomy. Discussed with family MRI results, EEG results. Family requests continue aggressive support. Plan for percutaneous tracheostomy . GI consulted for PEG placement. 06/01 Percutaneous tracheostomy performed today. Plan for patient to go to IR for new Vas-Cath placement per nephrology. 06/02 Patient s/p trach yesterday. For PEG tube placement and HD today today. On no sedation. T: 100.2 06/03 Patient s/p PEG tube placement and HD yesterday with removal 5L. Afebrile. Remains off sedation. 06/04 no acute events overnight. Tolerating C Pap. Will place on T piece 2-4 hours. No change in neuro exam 06/05 No acute events overnight. Tolerated CPAP/TP's trials for 4 hrs yesterday. Afebrile. For HD today 06/06 Patient is on ventilator via trach spiked fever with T: 101.0 last night. s /p HD yesterday with removal 3L. 06/07 Patient s/p HD yesterday with removal 3L. T: 100.8 last night. On ventilator via trach remains encephalopathic. 06/08: Currently getting hemodialysis, no fever white count trending down. Slight improvement in neuro exam. Partial eye-opening to central pain. Withdraws bilateral upper extremity slightly to pain 06/09: No acute events overnight. Tolerated TP yesterday, increase TP time to 8- 10 hours today. at bedside 06/10: Tachypneic today, versus support increased to 15 to breathing 30-35 breaths per minute. Chest x-ray from yesterday and today showing the right upper lobe infiltrates. New sputum culture ordered. Levaquin will be continued , I have added cefepime and discussed with ID 06/11: Chest x-ray shows improving right upper lobe infiltrate. Hemodialysis yesterday with 5 L of fluid removed. Sputum culture pending 06/12: Patient tolerating TP. T max 99.7. Sputum culture with Enterobacter, clear white trach secretions. Neuro remains unchanged 06/13 No acute events overnight. Afebrile. On CPAP 01/18 with 35% FIO2 overnight. For HD today. 06/14 s/p HD yesterday with removal 4.5L. Now on TP with 35% FIO2.. T: 101.1 at midnight Objective Vital Signs Date Time Temp Pulse Resp B/P Pulse Ox O2 Delivery O2 Flow Rate FiO2 06/14/16 07:21 99 T-piece 35 06/13/16 20:00 89 06/13/16 16:00 99.9 29 128/75 06/13/16 07:00 6.00 Intake and Output 06/13/16 06/13/16 06/14/16 08:00 16:00 00:00 Intake Total 329 ml 1498 ml Output Total 100 ml 4600 ml Balance 229 ml -3102 ml Result Diagram: 06/14/16 0500 06/14/16 0500 Other Results Laboratory Tests Test 06/14/16 05:00 White Blood Count 9.5 TH/MM3 Red Blood Count 3.61 MIL/MM3 Hemoglobin 10.6 GM/DL Hematocrit 31.9 % Mean Corpuscular Volume 88.4 FL Mean Corpuscular Hemoglobin 29.3 PG Mean Corpuscular Hemoglobin 33.1 % Concent Red Cell Distribution Width 16.2 % Platelet Count 316 TH/MM3 Mean Platelet Volume 8.6 FL Neutrophils (%) (Auto) 73.3 % Lymphocytes (%) (Auto) 11.9 % Monocytes (%) (Auto) 13.2 % Eosinophils (%) (Auto) 1.0 % Basophils (%) (Auto) 0.6 % Neutrophils # (Auto) 6.9 TH/MM3 Lymphocytes # (Auto) 1.1 TH/MM3 Monocytes # (Auto) 1.3 TH/MM3 Eosinophils # (Auto) 0.1 TH/MM3 Basophils # (Auto) 0.1 TH/MM3 CBC Comment DIFF FINAL Differential Comment Sodium Level 136 MEQ/L Potassium Level 4.1 MEQ/L Chloride Level 95 MEQ/L Carbon Dioxide Level 26.8 MEQ/L Anion Gap 14 MEQ/L Blood Urea Nitrogen 97 MG/DL Creatinine 5.70 MG/DL Estimat Glomerular Filtration 12 ML/MIN Rate Random Glucose 241 MG/DL Calcium Level 8.6 MG/DL Total Bilirubin 0.5 MG/DL Aspartate Amino Transf 118 U/L (AST/SGOT) Alanine Aminotransferase 200 U/L (ALT/SGPT) Alkaline Phosphatase 219 U/L Total Protein 7.6 GM/DL Albumin 2.5 GM/DL Imaging Last Impressions Chest X-Ray 06/13/16 0600 Signed Impressions: Service Date/Time: Monday, June 13, 2016 05:00 - CONCLUSION: 1. Support apparatus unchanged. Minimal basilar dependent opacity in the lungs. Marek Bowers MD Chest CT 06/10/16 0000 Signed Impressions: Service Date/Time: Friday, June 10, 2016 16:11 - CONCLUSION: 1. Patchy infiltrates right upper lobe, left upper lobe and superior segments of the lower lobes. 2. Thickening of the right major fissure. 3. Bilateral gynecomastia. 4. Coronary artery calcifications. Carlitos Aguirre MD Liver Ultrasound 06/06/16 0000 Signed Impressions: Service Date/Time: Monday, June 06, 2016 14:18 - CONCLUSION: 1. Liver slightly echogenic which can be seen with fatty infiltration. 2. Spleen not visualized. 3. There may be some minimal gallbladder sludge but no cholelithiasis or wall thickening. Carlitos Aguirre MD Upper Extremity Ultrasound 06/05/16 0000 Signed Impressions: Service Date/Time: Sunday, June 05, 2016 11:01 - CONCLUSION: Occlusive thrombus right cephalic vein and left basilic vein Shahid Sin MD Lower Extremity Ultrasound 06/05/16 0000 Signed Impressions: Service Date/Time: Sunday, June 05, 2016 16:05 - CONCLUSION: Normal examination. No evidence of DVT Shahid Sin MD Gastrostomy Tube Placement 06/02/16 0000 Signed Impressions: Service Date/Time: Thursday, June 02, 2016 12:31 - CONCLUSION: Uncomplicated gastrostomy tube placement as above. Isidro Flor MD Catheter Placement X-Ray 06/02/16 0000 Signed Impressions: Service Date/Time: Thursday, June 02, 2016 12:31 - CONCLUSION: 1. Uncomplicated line placement as above. 2. Patient currently has a modified left subclavian PermCath catheter that is being utilized as a temporary access. Isidro Flor MD Brain MRI 05/27/16 0000 Signed Impressions: Service Date/Time: Friday, May 27, 2016 12:17 - CONCLUSION: Multifocal bilateral T2 signal abnormalities in restricted diffusion concerning for bilateral lacunar infarcts. Carlitos Aguirre MD Head CT 05/16/16 0000 Signed Impressions: Service Date/Time: Monday, May 16, 2016 08:30 - CONCLUSION: Suspected bilateral basal ganglia calcifications are unchanged. No evidence of hemorrhage, edema, mass or mass effect. Stephen Quintanilla MD Abdomen/Pelvis CT 05/16/16 0000 Signed Impressions: Service Date/Time: Monday, May 16, 2016 08:39 - CONCLUSION: There are large areas of hemorrhage including the left retroperitoneum and psoas muscle, within the mesentery and a smaller area in the right psoas muscle. They don't appear to be related to the abdominal aorta or the internal iliac arteries. There is a small focal collection hemorrhage adjacent to the left external iliac artery as it enters the pelvis, but I don't believe that is related to the large amount of hemorrhage seen elsewhere. The areas of hemorrhage are large and multi-focal. Stephen Quintanilla MD CT Angiography 05/06/16 0000 Signed Impressions: Service Date/Time: Saturday, May 07, 2016 00:04 - CONCLUSION: 1. Lobar consolidation bilaterally in the lower lobes. 2. Negative for pulmonary embolism. Michael Colbert MD Objective Remarks GENERAL: 61-year-old AA male, morbidly obese remains encephalopathic SKIN: Warm and dry. No rash HEAD: Atraumatic. Normocephalic. EYES: Pupils equal and round around 2-3 mm bilaterally and slightly reactive. No scleral icterus. Saccadic movements of the eyes noted ENT: No nasal bleeding or discharge. NECK: JVD difficult to assess due to body habitus. s/p Trach, CARDIOVASCULAR: Normal S1, S2. Without murmur RESPIRATORY: Diminished breath sounds bilaterally due to body habitus. Breath sounds equal bilaterally. On TP GASTROINTESTINAL: Abdomen obese, non-tender, protuberant, distended. No guarding. PEG tube in place MUSCULOSKELETAL: Extremities with 1+ edema NEUROLOGICAL: Patient remains unresponsive, off sedation since morning of 05/23. Pupils are sluggishly reactive. Bilateral upper extremity mild withdrawal to pain. +ve Corneal reflex, gag reflex. Saccadic movements of the eyes intermittently. A/P Assessment and Plan Neuro/Psych: Bilateral basal ganglia infarcts, small punctate white matter infarcts on MRI Metabolic encephalopathy Patient remains unresponsive. Has been off sedation > two weeks. Neurology Dr. Felix. MRI of the brain done 05/16/16 shows small punctate white matter infarcts, bilateral basal ganglia infarcts. Repeat MRI brain 05/[address] 05/08, 05/16: negative acute. EEG 05/12 revealed generalized slowing right greater than left. No epileptiform activity. EEG 05/16: No seizure, severe encephalopathy. EEG 06/08 moderate encephalopathy, no seizure CV: Hemorrhagic shock due to left retroperitoneal hemorrhage-shock resolved Severe bradycardia and hypotension 05/17/16 most likely secondary to recurrent bleed Aberrant RCA off LCC Nonsustained V. tach single episode Diastolic heart failure Coronary artery disease Nonischemic cardiomyopathy secondary to hypertensive heart disease Hypertensive emergency On Labetalol 200 every 8, increase Hydralazine 75mg Q 8hrs, Cardizem 60mg QID, Status post cardiac catheterization by Dr. Moy. No intervention performed. Known coronary artery artery disease to the first and second diagonals the LAD. Aberrant RCA off left coronary cups. No transfer to fo RCA for unroofing due to lack of improvement in neuro status Aspirin 81 mg on hold due to RP hemorrhage. Resumed 06/11/16 (Plavix DC d 05/15/[address] Marcano at that time in anticipation of probable unroofing surgery) Lipitor 20 mg by mouth daily held in light of elevated liver function tests 05/30 Short run 8-9 beats V-tach last evening with resolution, no intervention Pulm: Acute hypoxemic respiratory failure-extubated 05/13/16, re intubated 05/16/16 for airway protection New right upper lobe infiltrate Likely underlying STU Previous Right upper lobe mucus plugging Continue with oxygen keep sat >92% S/P percutaneous tracheostomy. 8.0 [place] 06/01 SBT/TP's daily as tolerated. Bronchodilator therapy every 4 hours and as needed. Pulm toilet, trach care GI: S/P large left retroperitoneal hemorrhage 05/15 Hypoalbuminemia Elevated LFT's Monitor LFT's, US liver: Liver slightly echogenic which can be seen with fatty infiltration. Minimal gallbladder sludge] Continue TF via PEG (Nepro at 50 cc an hour) Continue Protonix for GI prophylaxis /Renal: Acute kidney failure due to ATN Anuria Chaudhry for accurate I's and O's in a critically ill patient HD started 05/17/16] Renal- Dr. Mcintosh. s/p HD yesterday with removal 4.5L Endo: Diabetes mellitus type 2 Hyperglycemia -SSI medium scale with accuchecks Q6 Heme: s/p Acute blood loss anemia with shock Large left retroperitoneal hemorrhage Right cephalic superficial thrombus left basilic thrombus/right PT THROMBUS Normocytic anemia Leukocytosis...trending down Monitor CBC, Heme is following. On Epogen with HD Transfused 3 units PRBC stat on 05/16/16 Transfused 3 units PRBC and 2 units FFP Transfuse 1 unit PRBCs 05/19. Therapeutic Lovenox discontinued, aspirin placed on hold, now on DVT prophylactic dose of Heparin. Aspirin resumed 06/11/16 75 mg IV protamine slow infusion (D/W with Dr. mcintosh) on 05/16/16. Was on Lovenox 150 mg subcutaneous twice a day-DCd 05/16/16 ID: Aspiration pneumonia/Enterobacter aerogenes in sputum Leukocytosis -Mucus plugging versus new RUL pneumonia-check CT of the chest today to to -Continue with abx per ID ( Cefepime, Levaquin)monitor for signs of infections ( Fever, WBC) Will panculture for new onset fever. Pertinent cultures 05/10 Sputum Enterobacter 05/07 - blood cultures 2 - negative 05/08 - sputum - negative 05/08 - urine - negative 05/08 - blood cultures - negative 05/13 - blood cx negative 05/13 - urine cx negative 05/16 - sputum Enterobacter aerogenes 05/16 - urine neg 131 - blood cultures neg 05/18 - blood cultures- negative 05/19 - bronchoscopy - Yeast 05/27 Sputum Enterobacter 06/02, 06/06. 06/10 Sputum: Enterobacter 06/06 Urine cx: C. Glabrata MSK: History of spinal stenosis/laminectomy/left total knee replacement and left ring finger amputation PT evaluate and treat Access - Peripheral IV;'s Prophylaxis -GI - Protonix 40mg daily -DVT -Heparin 5000 SQ BID, SCD on L leg -06/05 Doppler US LE: No DVT -06/05 Doppler US UE: Right cephalic and left basilic occlusive thrombus- on SQ heparin per Heme. -05/25 Doppler US UE: Occlusive thrombus in the right distal cephalic vein. Nonocclusive thrombus in the left mid and distal basilic veins. Level 3 Adryan Augustine MD Jun 14, 2016 07:53
[2016-06-14] MEDS: DILTIAZEM HCL 60 MG TAB PO SCH ×4 (09:04→22:16)
[2016-06-14] MEDS: HEPARIN SODIUM - SQ 10,000 UNITS/ML VIAL SQ SCH ×2 (09:04→22:15)
[2016-06-14] MEDS: SODIUM CHLORIDE 0.9% FLUSH 5 ML FLUSH IV FLUSH SCH ×2 (09:04→22:18)
[2016-06-14] MEDS: ASPIRIN 81 MG CHEW TAB CHEW SCH (09:04)
[2016-06-14] MEDS: CHLORHEXIDINE 0.12% (ORAL KIT) 15 ML CUP MT SCH ×2 (09:04→22:17)
[2016-06-14] MEDS: PANTOPRAZOLE SODIUM 40 MG VIAL IV PUSH SCH (09:05)
[2016-06-14] MEDS: ARTIFICIAL TEARS OPTH SOLN 15 ML BTL EACH EYE SCH ×3 (09:05→17:13)
--- NOTE | 2016-06-14 09:18 | HHI.NPPN ---
Subjective History of Present Illness 61 year old with ARF, CHF, Respiratory failure Additional Remarks Patient s/p Trach and off sedation, remain unresponsive, now on HD. Objective Data Data 06/13/16 06/14/16 19:00 07:00 Intake Total 1498 ml 888 ml Output Total 4600 ml 125 ml Balance -3102 ml 763 ml IV Total 100 ml 0 ml Tube Feeding 411 ml 768 ml Other 987 ml 120 ml Output Urine Total 100 ml 125 ml Tube Feeding Residual Discard 0 ml Hemodialysis 4500 ml # Bowel Movements 2 Vital Signs Date Time Temp Pulse Resp B/P Pulse Ox O2 Delivery O2 Flow Rate FiO2 06/14/16 07:21 99 T-piece 35 06/14/16 07:12 35 35 06/14/16 04:02 100 35 06/14/16 04:00 99.8 93 28 148/83 100 06/14/16 02:00 80 06/14/16 01:09 98 35 06/14/16 00:00 99.6 83 32 131/72 98 06/14/16 00:00 83 06/13/16 23:30 101.1 06/13/16 22:08 98 35 06/13/16 21:00 99.6 06/13/16 20:00 89 06/13/16 20:00 100.1 89 28 131/74 99 06/13/16 20:00 89 06/13/16 20:00 99 Bi-Pap 35 06/13/16 19:05 98 35 06/13/16 18:00 91 06/13/16 16:10 98 35 06/13/16 16:00 88 06/13/16 16:00 99.9 88 29 128/75 100 06/13/16 14:00 88 06/13/16 13:51 40 06/13/16 12:00 92 06/13/16 12:00 99.2 92 29 140/81 96 06/13/16 10:00 85 -: 06/14/16 0500 06/14/16 0500 Physical Exam General Appearance: Obese Neck Neck Exam: Neck Supple Pulmonary Resp Exam: Rhonchi, Decreased Bases, Diminished Breath Sounds, Poor Inspiratory Effort Cardiology CV Exam: Tachycardia Gastrointestinal/Abdomen GI Exam: Soft, Non-Tender, Distended Extremeties Extremities Exam: Moderate Edema, Pitting Edema, Dependent Edema Neurologic Neuro Exam: Unresponsive Assessment/Plan Problem List: (1) Acute renal failure Plan: Patient has oliguric acute renal failure and remains essentially oliguric. Continue with HD BUN and Creatinine remains high multiple CVA Anoxic Encephalopathy S/P Trach. 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 Plan: Cardiology following (4) Acute hypoxemic respiratory failure Plan: On ventilator (5) Hypertensive emergency Plan: BP improved (6) Diabetes mellitus Plan: Continue monitor blood glucose (7) CAD (coronary artery disease) Plan: Presented with STEMI, follow with cardiology (8) Subsequent ST elevation (STEMI) myocardial infarction of anterior wall Plan: Planned transfer to when stable. No intervention performed here. Problem Qualifiers (1) Acute renal failure: Qualified Code: N17.0 - Acute renal failure with tubular necrosis (2) Diabetes mellitus: Qualified Code: E13.8 - Diabetes mellitus of other type with complication, unspecified halfway insulin use status (3) CAD (coronary artery disease): Qualified Code: I25.10 - Coronary artery disease, angina presence unspecified, unspecified vessel or lesion type, unspecified whether wiyot or transplanted heart Linda Mcintosh MD Jun 14, 2016 09:18
[2016-06-14 09:39] LABS: BACTERIA, URINE MOD /hpf; BLOOD, URINE MOD (NEG); GLUCOSE,URINE NEG (NEG); KETONE, URINE NEG (NEG); MUCUS URINE FEW /lpf (OCC); NITRITE,URINE NEG (NEG); PH, URINE 6.5 (5.0-8.5); SQUAMOUS EPITHELIAL CELL URINE <1 /hpf (0-5); URINE COLOR YELLOW (YELLW/STRAW)
[2016-06-14 09:40] LABS: COMMENT (UR) CATH-CULTURE IND; CULTURE IF INDICATED CATH CULTURE IND
[2016-06-14] MEDS: CEFEPIME INJ 1,000 MG in SODIUM CHLORIDE 0.9% INJ 100 ML IV SCH (11:25)
--- NOTE | 2016-06-14 18:47 | HHI.IDPN ---
Subjective Subjective Remarks Mr. Short is a 61-year-old male who was admitted on May 05, 2016. Patient's past medical history significant for hypertensive heart disease, hypertension, type 2 diabetes and spinal stenosis. Patient presented to [facility] on the day of admission with history of acute onset of diaphoresis chest pain and syncope. Patient now has retroperitoneal hematoma, IC bleed. ID following for possible sepsis. Delayed entry patient seen at 11 am Notes reviewed D/W RN Tmax 101 F On CPAP overnight, on T-piece currently Mucus plug noted by RT. No rash No diarrhea Antibiotics Levaquin Cefepime Lines Line sites with no e/o infection Past Medical History reviewed Allergies: Coded Allergies: Penicillin (Verified Allergy, Mild, "I GO CRAZY", 09/01/15) Objective . Vital Signs Date Time Temp Pulse Resp B/P Pulse Ox O2 Delivery O2 Flow Rate FiO2 06/14/16 18:00 77 06/14/16 16:00 76 06/14/16 16:00 98.8 76 21 127/71 98 06/14/16 14:00 83 06/14/16 12:00 87 06/14/16 12:00 97.7 87 23 142/79 97 06/14/16 10:31 97 T-piece 35 06/14/16 10:00 79 06/14/16 08:00 97.7 85 25 147/82 97 06/14/16 08:00 85 06/14/16 07:21 99 T-piece 35 06/14/16 07:12 35 35 06/14/16 07:00 98 T-Piece 6.00 28 06/14/16 04:02 100 35 06/14/16 04:00 99.8 93 28 148/83 100 06/14/16 02:00 80 06/14/16 01:09 98 35 06/14/16 00:00 99.6 83 32 131/72 98 06/14/16 00:00 83 06/13/16 23:30 101.1 06/13/16 22:08 98 35 06/13/16 21:00 99.6 06/13/16 20:00 89 06/13/16 20:00 100.1 89 28 131/74 99 06/13/16 20:00 89 06/13/16 20:00 99 Bi-Pap 35 06/13/16 19:05 98 35 06/13/16 06/13/16 06/14/16 15:00 23:00 07:00 Intake Total 1498 ml 482 ml 406 ml Output Total 4600 ml 75 ml 50 ml Balance -3102 ml 407 ml 356 ml IV Total 100 ml 0 ml 0 ml Tube Feeding 411 ml 422 ml 346 ml Other 987 ml 60 ml 60 ml Output Urine Total 100 ml 75 ml 50 ml Tube Feeding Residual Discard 0 ml Hemodialysis 4500 ml # Bowel Movements 1 1 . Laboratory Tests Test 06/13/16 06/14/16 05:48 05:00 White Blood Count 10.6 TH/MM3 9.5 TH/MM3 Red Blood Count 3.62 MIL/MM3 3.61 MIL/MM3 Hemoglobin 10.4 GM/DL 10.6 GM/DL Hematocrit 32.3 % 31.9 % Mean Corpuscular Volume 89.3 FL 88.4 FL Mean Corpuscular Hemoglobin 28.7 PG 29.3 PG Mean Corpuscular Hemoglobin 32.2 % 33.1 % Concent Red Cell Distribution Width 16.6 % 16.2 % Platelet Count 276 TH/MM3 316 TH/MM3 Mean Platelet Volume 8.3 FL 8.6 FL Neutrophils (%) (Auto) 77.3 % 73.3 % Lymphocytes (%) (Auto) 9.1 % 11.9 % Monocytes (%) (Auto) 10.9 % 13.2 % Eosinophils (%) (Auto) 1.8 % 1.0 % Basophils (%) (Auto) 0.9 % 0.6 % Neutrophils # (Auto) 8.2 TH/MM3 6.9 TH/MM3 Lymphocytes # (Auto) 1.0 TH/MM3 1.1 TH/MM3 Monocytes # (Auto) 1.2 TH/MM3 1.3 TH/MM3 Eosinophils # (Auto) 0.2 TH/MM3 0.1 TH/MM3 Basophils # (Auto) 0.1 TH/MM3 0.1 TH/MM3 CBC Comment DIFF FINAL DIFF FINAL Differential Comment Laboratory Tests Test 06/13/16 06/14/16 05:48 05:00 Sodium Level 135 MEQ/L 136 MEQ/L Potassium Level 4.9 MEQ/L 4.1 MEQ/L Chloride Level 93 MEQ/L 95 MEQ/L Carbon Dioxide Level 23.7 MEQ/L 26.8 MEQ/L Anion Gap 18 MEQ/L 14 MEQ/L Blood Urea Nitrogen 141 MG/DL 97 MG/DL Creatinine 6.95 MG/DL 5.70 MG/DL Estimat Glomerular Filtration 10 ML/MIN 12 ML/MIN Rate Random Glucose 227 MG/DL 241 MG/DL Calcium Level 8.7 MG/DL 8.6 MG/DL Total Bilirubin 0.6 MG/DL 0.5 MG/DL Aspartate Amino Transf 149 U/L 118 U/L (AST/SGOT) Alanine Aminotransferase 228 U/L 200 U/L (ALT/SGPT) Alkaline Phosphatase 222 U/L 219 U/L Total Protein 7.5 GM/DL 7.6 GM/DL Albumin 2.6 GM/DL 2.5 GM/DL Microbiology Date/Time Procedure Status Source Growth 06/14/16 08:45 Gram Stain - Final Resulted Sputum Endotracheal 06/14/16 08:45 Sputum Culture Resulted Sputum Endotracheal Pending 06/14/16 08:45 Urine Culture Received Urine Catheterized Urine Pending 06/14/16 10:20 Aerobic Blood Culture Received Blood Peripheral Pending 06/14/16 10:20 Anaerobic Blood Culture Received Blood Peripheral Pending 06/14/16 10:25 Aerobic Blood Culture Received Blood Peripheral Pending 06/14/16 10:25 Anaerobic Blood Culture Received Blood Peripheral Pending Imaging Chest X-Ray 06/11/16 0600 Signed Impressions: Service Date/Time: Saturday, June 11, 2016 03:12 - CONCLUSION: No significant change has occurred. Ronald Tinsley MD Chest X-Ray 06/10/16 0000 Signed Impressions: Service Date/Time: Friday, June 10, 2016 07:53 - CONCLUSION: No significant change. Persistent hazy right upper lung opacity. Hal Finn MD Liver Ultrasound 06/06/16 0000 Signed Impressions: Service Date/Time: Monday, June 06, 2016 14:18 - CONCLUSION: 1. Liver slightly echogenic which can be seen with fatty infiltration. 2. Spleen not visualized. 3. There may be some minimal gallbladder sludge but no cholelithiasis or wall thickening. Carlitos Aguirre MD Upper Extremity Ultrasound 06/05/16 0000 Signed Impressions: Service Date/Time: Sunday, June 05, 2016 11:01 - CONCLUSION: Occlusive thrombus right cephalic vein and left basilic vein Shahid Sin MD Lower Extremity Ultrasound 06/05/16 0000 Signed Impressions: Service Date/Time: Sunday, June 05, 2016 16:05 - CONCLUSION: Normal examination. No evidence of DVT Shahid Sin MD Gastrostomy Tube Placement 06/02/16 0000 Signed Impressions: Service Date/Time: Thursday, June 02, 2016 12:31 - CONCLUSION: Uncomplicated gastrostomy tube placement as above. Isidro Flor MD Catheter Placement X-Ray 06/02/16 Signed Impressions: Service Date/Time: Thursday, June 02, 2016 12:31 - CONCLUSION: 1. Uncomplicated line placement as above. 2. Patient currently has a modified left subclavian PermCath catheter that is being utilized as a temporary access. Isidro Flor MD Brain MRI 05/27/16 0000 Signed Impressions: Service Date/Time: Friday, May 27, 2016 12:17 - CONCLUSION: Multifocal bilateral T2 signal abnormalities in restricted diffusion concerning for bilateral lacunar infarcts. Carlitos Aguirre MD Head CT 05/16/16 0000 Signed Impressions: Service Date/Time: Monday, May 16, 2016 08:30 - CONCLUSION: Suspected bilateral basal ganglia calcifications are unchanged. No evidence of hemorrhage, edema, mass or mass effect. Stephen Quintanilla MD Abdomen/Pelvis CT 05/16/16 0000 Signed Impressions: Service Date/Time: Monday, May 16, 2016 08:39 - CONCLUSION: There are large areas of hemorrhage including the left retroperitoneum and psoas muscle, within the mesentery and a smaller area in the right psoas muscle. They don't appear to be related to the abdominal aorta or the internal iliac arteries. There is a small focal collection hemorrhage adjacent to the left external iliac artery as it enters the pelvis, but I don't believe that is related to the large amount of hemorrhage seen elsewhere. The areas of hemorrhage are large and multi-focal. Stephen Quintanilla MD CT Angiography 05/06/16 0000 Signed Impressions: Service Date/Time: Saturday, May 07, 2016 00:04 - CONCLUSION: 1. Lobar consolidation bilaterally in the lower lobes. 2. Negative for pulmonary embolism. Michael Colbert MD Physical Exam GENERAL: On the vent, looks slightly dyspneic, on T-piece SKIN: No rashes, ecchymoses or lesions. Cool and dry. HEENT: Pupils equal round and reactive. No scleral icterus. No injection or drainage. NECK: Trachea midline. Trach site ok. Supple, no meningeal signs. CARDIOVASCULAR: HS audible. RESPIRATORY: Decreased BS both lung ye GASTROINTESTINAL: Abdomen soft, non-tender, nondistended. Obese MUSCULOSKELETAL: Extremities with wrinkling of skin noted. Improving edema NEUROLOGICAL: Off sedation and no response. Psych: could not be assessed IV line sites with no e/o infection. Assessment & Plan Remarks New fever ? drug fever vs Mucus plug related new pneumonia. Enterobacter cloacae Pneumonia. - has new infiltrates on CXR - though CXR today looks better than yesterday, ?atelectasis, he has been doing T-piece trials Possible Cath associated UTI. Possible Central line associated Blood Stream Infection. Acute metabolic encephalopathy Acute resp failure, S/P trach, component of STU Acute kidney injury: prerenal from hemodynamic changes, chronic HTN related. DM2 uncontrolled: stress as additional factor. CAD non ischemic cardiomyopathy Anemia: acute due to Retroperitoneal bleed. Receiving blood transfusions. Recs: Continue Levaquin Continue Cefepime Agree with jolly cultures Monitor temps Follow new C/S Monitor progress Weaning per CCM D/W Tracy Carter MD Jun 14, 2016 18:47
[2016-06-15] VITALS (11 sets, daily range): BP systolic 105–147; BP diastolic 63–87; PULSE 80–103; RESP 18–24; TEMP 98.9–99.8; O2SAT 93–100
[2016-06-15] MEDS: INSULIN NovoLIN REGULAR SUPPLEMENTAL SCALE SQ SCH ×4 (02:34→21:01)
[2016-06-15] MEDS: CHLORHEXIDINE GLUCONATE 2 % 1 PACK (2 CLOTHS) TOP SCH (04:00)
[2016-06-15 04:37] LABS: AUTOMATED NEUTROPHIL # 7.8 TH/MM3 (1.8-7.7); BASOPHIL # 0.1 TH/MM3 (0-0.2); BASOPHIL % 0.6 % (0.0-2.0); EOSINOPHIL # 0.2 TH/MM3 (0-0.4); EOSINOPHIL % 1.6 % (0.0-4.0); HEMATOCRIT 31.1 % (39.0-51.0); HEMO FLAGS DIFF FINAL; LYMPH % 9.9 % (9.0-44.0); MEAN CELL VOLUME 87.8 FL (80.0-100.0); MEAN CORPUSCULAR HGB CONC 33.1 % (32.0-36.0); MONO % 10.4 % (0.0-8.0); NEUT % 77.5 % (16.0-70.0); PLATELET COUNT 333 TH/MM3 (150-450); RED BLOOD COUNT 3.55 MIL/MM3 (4.50-5.90); RED CELL DISTRIBUTION WIDTH 16.2 % (11.6-17.2); WHITE BLOOD COUNT 10.1 TH/MM3 (4.0-11.0)
[2016-06-15 05:05] LABS: POTASSIUM 4.3 MEQ/L (3.5-5.1)
[2016-06-15] MEDS: LABETALOL HCL 200 MG TAB PO SCH ×3 (06:00→22:20)
[2016-06-15] MEDS: hydrALAZINE HCL 25 MG TAB PO SCH ×3 (06:00→22:21)
--- NOTE | 2016-06-15 07:49 | HHI.CCPN ---
Subjective Remarks/Hospital Course 61-year-old AA male. Date of admission 05/05/2016. Date of consultation 2016. Past medical history includes hypertensive heart disease, hypertension, diabetes mellitus type 2 and spinal stenosis. He presented to [facility] today with history of acute onset of diaphoresis, chest pain and syncope. Her documentation, Chest pain was 7 out of 10 without radiation. Later in the hospital physician, patient did have ST elevation anterior septal leads. I he had a cardiac catheterization in 2009 which revealed moderate coronary disease which documented 50-60% stenosis in the LAD diagonals 1 and 2. Recommended medical management at that time. Dr. Marcano was notified and proceed to the cardiac catheter lab. Patient sees heparin and one aspirin prior to cardiac catheterization. During heart catheterization,, patient became hypertensive, tachypneic, hypoxic and agitated including abdominal pain with nausea and vomiting. Patient was intubated by Dr. Simon and dispensed transferred to room 505a. Currently hemodynamic stable on a propofol drip. 05/06: Patient required additional sedation overnight. Was moving all 4 extremity spontaneously and strongly. Potassium is replaced overnight along with magnesium. This afternoon approximate 4 PM, patient went into a sinus bradycardia in the 40s. RN cannot locate pulse and possibly went into a PEA arrest. Patient received CPR for approximately 2 minutes. ROSC return immediately. Received 1 mg of epinephrine IV. Blood pressure was 240 systolic. Saturations were above 90% the entire time. Dr. Marcano was made aware. No new recommendations at this time. Electrolytes currently pending. Patient is currently hemodynamic stable and an arterial line/left radial has been placed 05/07: no improvement in delirium or mental status. spiking low grade fevers. 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 CT surgery consulted and declined to operate here: he will need referral once stabilized. fio2 requirements still high. CT chest also with evidence of bibasilar consolidation which may be aspiration pneumonitis vs. pneumonia now that we are 48h out from initial presentation and now spiking fevers. 05/08: delirium persists. continues to spike fevers. jolly cultured yesterday without results yet. holding sedation today. 05/09: delirium slightly improved. waking up on SAT, weakly following commands. cultures still NGTD. hypoxia slightly improved. 05/10: delirium improving. weakly following commands still. cultures still NGTD. fevers persist, although fever curve appears to be improving. hypoxia continues to improve. still remains very critically ill. 05/11: Tmax 99.9. Currently 99.1. Tolerating tube feeding. One bowel movement. Continues to have difficulty weaning ventilator. 05/12: Currently afebrile. Tolerating tube feeding. Positive BM. Increased FiO2 from 45-60%. +1 L. Arousable on sedation vacation and weakly follows commands. 05/13: Remains intubated, sedated. FiO2 now reduced to 45% (was 55% today am). Start weaning trials after starting Precedex. To control BP May use Cardene, given anomalous RCA 05/14: Extubated yesterday, remained on BiPAP overnight. Intermittently agitated. Following commands to me today, while on BiPAP. Remains on Cardene infusion for uncontrolled hypertension. Urine output 4.7 L in 24 hours 05/15: On 3 L nasal cannula. Fever trending down, breathing more comfortably. Able to communicate. Discussed with Dr. Marcano. Dr. Pendleton will be available tomorrow, will probably need transfer to [facility] for RCA unroofing 05/16: Acutely hypotensive overnight with tachycardia. MAP was 55 with greater than 130s. Received 3.5 L of normal saline bolus with improvement in blood pressure and heart rate. Lethargic on BiPAP. ABG pending, HB dropped from 10.9 to 7.8. No obvious source of bleeding. STAT 2U PRBC. STAT CT head and CT abd pelvis. R/O ICH or RP bleed. Patient received only 5mg Nicci at 2100 yesterday, no other sedation. Last dose of Lovenox was at 211, held now 05/17: Developed Hemorrhagic shock from large retroperitoneal hemorrhage night to 05/15/16. Stabilized after 3 units of PRBC and protamine. Hemoglobin 8.7 today. Remain encephalopathy and unresponsive yesterday. MRI 05/16/16 shows small punctate white matter infarcts, bilateral basal ganglia infarcts. Urology consult pending. Antiplatelet drugs on hold. Now with anuria from ATN secondary to shock. Nephrology consult pending 05/18: Developed sudden onset bradycardia in 40s, with acute hypotension yesterday evening around 5 PM. ACLS protocol initiated (did not arrest or lose pulse). Received multiple epinephrine, bicarbonate calcium and fluid boluses. Patient was placed on dopamine 20 mics per KG per minute, Levophed 20 mics per KG per minute, epinephrine 2.5 mics per minute and eventually stabilized with systolic blood pressure reading 120s. Hemoglobin on ABG was 7 and emergently transfused 3 units PRBC and 2 units FFP. Lab hemoglobin came back at 6.8. Patient also was profoundly acidemic with pH of 7.16. Patient received total 3 A of bicarbonate and bicarbonate infusion was started, minute ventilation was also increased. 2: MAXIMUM TEMPERATURE 100.3. Currently 99.5. No bowel movement. Tube feeds were restarted. FiO2 50%. PEEP at 8. 05/20: MAXIMUM TEMPERATURE 100.9. Positive BM. Tube feeds were restarted today. PT plateau. FiO2 down to 85%. Semiemergent bronchoscopy yesterday for right upper lobe airway obstruction. Resolved 05/21: MAXIMUM TEMPERATURE 100.7. Currently 99.6. Somewhat tachycardic. 2 bowel movements overnight. Tolerating tube feeds at 30 cc an hour. Had episode of emesis overnight. 05/22: Remains sedated, orally intubated on mechanical ventilation. 05/23: Remains sedated, orally intubated on mechanical ventilation. Dialyzed yesterday. 05/24: Remains sedated/encephalopathic, orally intubated on mechanical ventilation. Tolerating tube feeds. Awaiting dialysis 05/25: Remains encephalopathic, orally intubated on mechanical ventilation. Off sedation for 2 days now. PEEP decreased to to +7 10 No acute events overnight. For HD today. Afebrile. On PRVC/AC 20, TV 550, PEEP: 6, IT: 1.2 and FIO2 35%. On no sedation. Tolerating tube feeds. Subjective 05/27: Tmax 99.8. Currently 99.1. FiO2 down to 35%. Tolerating tube feeding. Positive BM. MRI brain reveals bilateral lacunar infarcts. Will likely need trach 05/28: Afebrile. The patient continues on CPAP trials 28/09 FiO2 of 35%, maintaining O2 sat at 97%. 05/29: The patient continues on CPAP trials. The patient underwent hemodialysis today. The patient is noted to be a medium dose sliding scale insulin with persistent hyperglycemia will increase to high-dose insulin sliding scale. Per hematology the patient was placed on heparin infusion initially, then discontinued.. 05/30 Tmax 100.1. S/P initiation of therapeutic anticoagulation ,serial hemoglobin stable, continue to monitor every 12 hours. Patient continues to fail CPAP trials, plan for tracheostomy, Discussed with patient spouse, she desires a trach and PEG, at this time. 05/31 Tmax 100.1. Maintaining CPAP trials occasionally 3-4 hours. Discussed with family risk and benefits of tracheostomy. Discussed with family MRI results, EEG results. Family requests continue aggressive support. Plan for percutaneous tracheostomy . GI consulted for PEG placement. 06/01 Percutaneous tracheostomy performed today. Plan for patient to go to IR for new Vas-Cath placement per nephrology. 06/02 Patient s/p trach yesterday. For PEG tube placement and HD today today. On no sedation. T: 100.2 06/03 Patient s/p PEG tube placement and HD yesterday with removal 5L. Afebrile. Remains off sedation. 06/04 no acute events overnight. Tolerating C Pap. Will place on T piece 2-4 hours. No change in neuro exam 06/05 No acute events overnight. Tolerated CPAP/TP's trials for 4 hrs yesterday. Afebrile. For HD today 06/06 Patient is on ventilator via trach spiked fever with T: 101.0 last night. s /p HD yesterday with removal 3L. 06/07 Patient s/p HD yesterday with removal 3L. T: 100.8 last night. On ventilator via trach remains encephalopathic. 06/08: Currently getting hemodialysis, no fever white count trending down. Slight improvement in neuro exam. Partial eye-opening to central pain. Withdraws bilateral upper extremity slightly to pain 06/09: No acute events overnight. Tolerated TP yesterday, increase TP time to 8- 10 hours today. at bedside 06/10: Tachypneic today, versus support increased to 15 to breathing 30-35 breaths per minute. Chest x-ray from yesterday and today showing the right upper lobe infiltrates. New sputum culture ordered. Levaquin will be continued , I have added cefepime and discussed with ID 06/11: Chest x-ray shows improving right upper lobe infiltrate. Hemodialysis yesterday with 5 L of fluid removed. Sputum culture pending 06/12: Patient tolerating TP. T max 99.7. Sputum culture with Enterobacter, clear white trach secretions. Neuro remains unchanged 06/13 No acute events overnight. Afebrile. On CPAP 01/18 with 35% FIO2 overnight. For HD today. 06/14 s/p HD yesterday with removal 4.5L. Now on TP with 35% FIO2.. T: 101.1 at midnight 06/15 No acute events overnight. Has been on TP with FIO2 35% >24 hrs. Afebrile. Tolerating tube feeds Objective Vital Signs Date Time Temp Pulse Resp B/P Pulse Ox O2 Delivery O2 Flow Rate FiO2 06/15/16 06:00 92 06/15/16 04:00 98.9 20 145/87 93 06/14/16 19:57 T-piece 35 06/14/16 19:00 6.00 Intake and Output 06/14/16 06/14/16 06/15/16 08:00 16:00 00:00 Intake Total 406 ml 575 ml 834 ml Output Total 50.0 ml 100 ml 150.0 ml Balance 356.0 ml 475 ml 684.0 ml Result Diagram: 06/15/16 0330 06/15/16 0330 Other Results Laboratory Tests Test 06/14/16 06/15/16 08:45 03:30 Urine Color YELLOW Urine Turbidity CLOUDY Urine pH 6.5 Urine Specific [place] 1.023 Urine Protein 300 mg/dL Urine Glucose (UA) NEG mg/dL Urine Ketones NEG mg/dL Urine Occult Blood MOD Urine Nitrite NEG Urine Bilirubin NEG Urine Urobilinogen LESS THAN 2.0 MG/DL Urine Leukocyte Esterase LARGE Urine RBC 113 /hpf Urine WBC /hpf Urine WBC Clumps MANY Urine Squamous Epithelial <1 /hpf Cells Urine Bacteria MOD /hpf Urine Mucus FEW /lpf Urine Yeast (Budding) MOD Microscopic Urinalysis Comment CATH-CULTURE IND White Blood Count 10.1 TH/MM3 Red Blood Count 3.55 MIL/MM3 Hemoglobin 10.3 GM/DL Hematocrit 31.1 % Mean Corpuscular Volume 87.8 FL Mean Corpuscular Hemoglobin 29.0 PG Mean Corpuscular Hemoglobin 33.1 % Concent Red Cell Distribution Width 16.2 % Platelet Count 333 TH/MM3 Mean Platelet Volume 8.5 FL Neutrophils (%) (Auto) 77.5 % Lymphocytes (%) (Auto) 9.9 % Monocytes (%) (Auto) 10.4 % Eosinophils (%) (Auto) 1.6 % Basophils (%) (Auto) 0.6 % Neutrophils # (Auto) 7.8 TH/MM3 Lymphocytes # (Auto) 1.0 TH/MM3 Monocytes # (Auto) 1.0 TH/MM3 Eosinophils # (Auto) 0.2 TH/MM3 Basophils # (Auto) 0.1 TH/MM3 CBC Comment DIFF FINAL Differential Comment Sodium Level 136 MEQ/L Potassium Level 4.3 MEQ/L Chloride Level 95 MEQ/L Carbon Dioxide Level 26.0 MEQ/L Anion Gap 15 MEQ/L Blood Urea Nitrogen 122 MG/DL Creatinine 6.17 MG/DL Estimat Glomerular Filtration 11 ML/MIN Rate Random Glucose 240 MG/DL Calcium Level 8.9 MG/DL Imaging Last Impressions Chest X-Ray 06/13/16 0600 Signed Impressions: Service Date/Time: Monday, June 13, 2016 05:00 - CONCLUSION: 1. Support apparatus unchanged. Minimal basilar dependent opacity in the lungs. Marek Bowers MD Chest CT 06/10/16 0000 Signed Impressions: Service Date/Time: Friday, June 10, 2016 16:11 - CONCLUSION: 1. Patchy infiltrates right upper lobe, left upper lobe and superior segments of the lower lobes. 2. Thickening of the right major fissure. 3. Bilateral gynecomastia. 4. Coronary artery calcifications. Carlitos Aguirre MD Liver Ultrasound 06/06/16 0000 Signed Impressions: Service Date/Time: Monday, June 06, 2016 14:18 - CONCLUSION: 1. Liver slightly echogenic which can be seen with fatty infiltration. 2. Spleen not visualized. 3. There may be some minimal gallbladder sludge but no cholelithiasis or wall thickening. Carlitos Aguirre MD Upper Extremity Ultrasound 06/05/16 0000 Signed Impressions: Service Date/Time: Sunday, June 05, 2016 11:01 - CONCLUSION: Occlusive thrombus right cephalic vein and left basilic vein Shahid Sin MD Lower Extremity Ultrasound 06/05/16 0000 Signed Impressions: Service Date/Time: Sunday, June 05, 2016 16:05 - CONCLUSION: Normal examination. No evidence of DVT Shahid Sin MD Gastrostomy Tube Placement 06/02/16 0000 Signed Impressions: Service Date/Time: Thursday, June 02, 2016 12:31 - CONCLUSION: Uncomplicated gastrostomy tube placement as above. Isidro Flor MD Catheter Placement X-Ray 06/02/16 0000 Signed Impressions: Service Date/Time: Thursday, June 02, 2016 12:31 - CONCLUSION: 1. Uncomplicated line placement as above. 2. Patient currently has a modified left subclavian PermCath catheter that is being utilized as a temporary access. Isidro Flor MD Brain MRI 05/27/16 0000 Signed Impressions: Service Date/Time: Friday, May 27, 2016 12:17 - CONCLUSION: Multifocal bilateral T2 signal abnormalities in restricted diffusion concerning for bilateral lacunar infarcts. Carlitos Aguirre MD Head CT 05/16/16 0000 Signed Impressions: Service Date/Time: Monday, May 16, 2016 08:30 - CONCLUSION: Suspected bilateral basal ganglia calcifications are unchanged. No evidence of hemorrhage, edema, mass or mass effect. Stephen Quintanilla MD Abdomen/Pelvis CT 05/16/16 0000 Signed Impressions: Service Date/Time: Monday, May 16, 2016 08:39 - CONCLUSION: There are large areas of hemorrhage including the left retroperitoneum and psoas muscle, within the mesentery and a smaller area in the right psoas muscle. They don't appear to be related to the abdominal aorta or the internal iliac arteries. There is a small focal collection hemorrhage adjacent to the left external iliac artery as it enters the pelvis, but I don't believe that is related to the large amount of hemorrhage seen elsewhere. The areas of hemorrhage are large and multi-focal. Stephen Quintanilla MD CT Angiography 05/06/16 0000 Signed Impressions: Service Date/Time: Saturday, May 07, 2016 00:04 - CONCLUSION: 1. Lobar consolidation bilaterally in the lower lobes. 2. Negative for pulmonary embolism. Michael Colbert MD Objective Remarks GENERAL: 61-year-old AA male, morbidly obese remains encephalopathic SKIN: Warm and dry. No rash HEAD: Atraumatic. Normocephalic. EYES: Pupils equal and round around 2-3 mm bilaterally and slightly reactive. No scleral icterus. Saccadic movements of the eyes noted ENT: No nasal bleeding or discharge. NECK: JVD difficult to assess due to body habitus. s/p Trach, CARDIOVASCULAR: Normal S1, S2. Without murmur RESPIRATORY: Diminished breath sounds bilaterally due to body habitus. Breath sounds equal bilaterally. On TP GASTROINTESTINAL: Abdomen obese, non-tender, protuberant, distended. No guarding. PEG tube in place MUSCULOSKELETAL: Extremities with 1+ edema NEUROLOGICAL: Patient remains unresponsive, off sedation since morning of 05/23. Pupils are sluggishly reactive. Bilateral upper extremity mild withdrawal to pain. +ve Corneal reflex, gag reflex. Saccadic movements of the eyes intermittently. A/P Assessment and Plan Neuro/Psych: Bilateral basal ganglia infarcts, small punctate white matter infarcts on MRI Metabolic encephalopathy Patient remains unresponsive. Has been off sedation > two weeks. Neurology Dr. Felix. MRI of the brain done 05/16/16 shows small punctate white matter infarcts, bilateral basal ganglia infarcts. Repeat MRI brain 05/[address] 05/08, 05/16: negative acute. EEG 05/12 revealed generalized slowing right greater than left. No epileptiform activity. EEG 05/16: No seizure, severe encephalopathy. EEG 06/08 moderate encephalopathy, no seizure CV: Hemorrhagic shock due to left retroperitoneal hemorrhage-shock resolved Severe bradycardia and hypotension 05/17/16 most likely secondary to recurrent bleed Aberrant RCA off LCC Nonsustained V. tach single episode Diastolic heart failure Coronary artery disease Nonischemic cardiomyopathy secondary to hypertensive heart disease Hypertensive emergency On Labetalol 200 every 8, Hydralazine 75mg Q 8hrs, Cardizem 60mg QID, ASA 81mg daily Status post cardiac catheterization by Dr. Moy. No intervention performed. Known coronary artery artery disease to the first and second diagonals the LAD. Aberrant RCA off left coronary cups. No transfer to fo RCA for unroofing due to lack of improvement in neuro status Lipitor 20 mg by mouth daily held in light of elevated liver function tests Pulm: Acute hypoxemic respiratory failure-extubated 05/13/16, re intubated 05/16/16 for airway protection New right upper lobe infiltrate Likely underlying STU Previous Right upper lobe mucus plugging Continue with oxygen keep sat >92% S/P percutaneous tracheostomy. 8.0 Yasmine 06/01 Has been on TP with 35% FIO2 >24hrs Bronchodilator therapy every 4 hours and as needed. Pulm toilet, trach care GI: S/P large left retroperitoneal hemorrhage 05/15 Hypoalbuminemia Elevated LFT's Monitor LFT's, US liver: Liver slightly echogenic which can be seen with fatty infiltration. Minimal gallbladder sludge] Continue TF via PEG (Nepro at 50 cc an hour) Continue Protonix for GI prophylaxis /Renal: Acute kidney failure due to ATN Anuria Chaudhry for accurate I's and O's in a critically ill patient HD started 05/17/16] Renal- Dr. Mcintosh. for HD today Endo: Diabetes mellitus type 2 Hyperglycemia -SSI medium scale with accuchecks Q6, add Levemir 7u Q12 Heme: s/p Acute blood loss anemia with shock Large left retroperitoneal hemorrhage Right cephalic superficial thrombus left basilic thrombus/right PT THROMBUS Normocytic anemia Leukocytosis...trending down Monitor CBC, Heme is following. On Epogen with HD Transfused 3 units PRBC stat on 05/16/16 Transfused 3 units PRBC and 2 units FFP Transfuse 1 unit PRBCs 05/19. Therapeutic Lovenox discontinued, aspirin placed on hold, now on DVT prophylactic dose of Heparin. Aspirin resumed 06/11/16 75 mg IV protamine slow infusion (D/W with Dr. mcintosh) on 05/16/16. Was on Lovenox 150 mg subcutaneous twice a day-DCd 05/16/16 ID: Aspiration pneumonia/Enterobacter aerogenes in sputum Leukocytosis -Mucus plugging versus new RUL pneumonia-check CT of the chest today to to -Continue with abx per ID ( Cefepime, Levaquin)monitor for signs of infections ( Fever, WBC) pancultured 06/14 Pertinent cultures 05/10 Sputum Enterobacter 05/07 - blood cultures 2 - negative 05/08 - sputum - negative 05/08 - urine - negative 05/08 - blood cultures - negative 05/13 - blood cx negative 05/13 - urine cx negative 05/16 - sputum Enterobacter aerogenes 05/16 - urine neg 131 - blood cultures neg 05/18 - blood cultures- negative 05/19 - bronchoscopy - Yeast 05/27 Sputum Enterobacter 06/02, 06/06. 06/10 Sputum: Enterobacter 06/06 Urine cx: C. [place] MSK: History of spinal stenosis/laminectomy/left total knee replacement and left ring finger amputation PT evaluate and treat Access - Peripheral IV;'s Prophylaxis -GI - Protonix 40mg daily -DVT -Heparin 5000 SQ BID, SCD on L leg -06/05 Doppler US LE: No DVT -06/05 Doppler US UE: Right cephalic and left basilic occlusive thrombus- on SQ heparin per Heme. -05/25 Doppler US UE: Occlusive thrombus in the right distal cephalic vein. Nonocclusive thrombus in the left mid and distal basilic veins. Will sign off and transfer care to [facility] Level 2 Adryan Augustine MD Jun 15, 2016 07:49
[2016-06-15] MEDS: GENTAMICIN SULFATE (DIALYSIS USE ONLY) 20 MG/2 ML VIAL IV PRN (08:05)
[2016-06-15] MEDS: EPOETIN ALFA 10,000 UNITS/ML VIAL IV PRN (08:05)
[2016-06-15] MEDS: HEPARIN SODIUM - IV 10,000 UNITS/10 ML VIAL PRN (08:05)
[2016-06-15] MEDS: SODIUM CHLOR 0.9% 1000 ML INJ 1,000 ML IV PRN (08:05)
--- NOTE | 2016-06-15 09:00 | HHI.NPPN ---
Subjective History of Present Illness 61 year old with ARF, CHF, Respiratory failure Additional Remarks Patient s/p Trach and off sedation, remain unresponsive, now on HD. Objective Data Data 06/14/16 06/15/16 19:00 07:00 Intake Total 575 ml 1251 ml Output Total 100 ml 225.0 ml Balance 475 ml 1026.0 ml Intake Oral 0 ml IV Total 114 ml 0 ml Tube Feeding 361 ml 1071 ml Tube Irrigant 100 ml 0 ml Other 180 ml Output Urine Total 100 ml 225 ml Tube Feeding Residual Discard 0 ml 0 ml # Bowel Movements 3 Vital Signs Date Time Temp Pulse Resp B/P Pulse Ox O2 Delivery O2 Flow Rate FiO2 06/15/16 06:00 92 06/15/16 04:00 98.9 81 20 145/87 93 06/15/16 04:00 81 06/15/16 02:00 84 06/15/16 00:00 99.2 80 23 144/75 97 06/15/16 00:00 80 06/14/16 22:00 95 06/14/16 20:00 99.3 78 22 137/72 98 06/14/16 20:00 78 06/14/16 19:57 98 T-piece 35 06/14/16 19:00 98 T-Piece 6.00 29 06/14/16 18:00 77 06/14/16 16:00 76 06/14/16 16:00 98.8 76 21 127/71 98 06/14/16 14:00 83 06/14/16 12:00 87 06/14/16 12:00 97.7 87 23 142/79 97 06/14/16 10:31 97 T-piece 35 06/14/16 10:00 79 -: 06/15/16 0330 06/15/16 0330 Microbiology 06/14/16 Aerobic Blood Culture, Received Pending 06/14/16 Anaerobic Blood Culture, Received Pending 06/14/16 Aerobic Blood Culture, Received Pending 06/14/16 Anaerobic Blood Culture, Received Pending Physical Exam General Appearance: Obese Neck Neck Exam: Neck Supple Pulmonary Resp Exam: Rhonchi, Decreased Bases, Diminished Breath Sounds, Poor Inspiratory Effort Cardiology CV Exam: Tachycardia Gastrointestinal/Abdomen GI Exam: Soft, Non-Tender, Distended Extremeties Extremities Exam: Moderate Edema, Pitting Edema, Dependent Edema Neurologic Neuro Exam: Unresponsive Assessment/Plan Problem List: (1) Acute renal failure Plan: Patient has oliguric acute renal failure and remains essentially oliguric. Continue with HD BUN and Creatinine remains high seen during hemodialysis UF 4.5 L tolerating it multiple CVA Anoxic Encephalopathy S/P Trach. 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 Plan: Cardiology following (4) Acute hypoxemic respiratory failure Plan: On ventilator (5) Hypertensive emergency Plan: BP improved (6) Diabetes mellitus Plan: Continue monitor blood glucose (7) CAD (coronary artery disease) Plan: Presented with STEMI, follow with cardiology (8) Subsequent ST elevation (STEMI) myocardial infarction of anterior wall Plan: Planned transfer to [facility] when stable. No intervention performed here. Problem Qualifiers (1) Acute renal failure: Qualified Code: N17.0 - Acute renal failure with tubular necrosis (2) Diabetes mellitus: Qualified Code: E13.8 - Diabetes mellitus of other type with complication, unspecified superintendent container terminal insulin use status (3) CAD (coronary artery disease): Qualified Code: I25.10 - Coronary artery disease, angina presence unspecified, unspecified vessel or lesion type, unspecified whether [place] or transplanted heart Linda Mcintosh MD Jun 15, 2016 09:00
[2016-06-15] MEDS: CHLORHEXIDINE 0.12% (ORAL KIT) 15 ML CUP MT SCH ×2 (11:28→20:41)
[2016-06-15] MEDS: ARTIFICIAL TEARS OPTH SOLN 15 ML BTL EACH EYE SCH ×3 (11:29→20:41)
[2016-06-15] MEDS: ASPIRIN 81 MG CHEW TAB CHEW SCH (11:29)
[2016-06-15] MEDS: SODIUM CHLORIDE 0.9% FLUSH 5 ML FLUSH IV FLUSH SCH ×2 (11:30→20:38)
[2016-06-15] MEDS: DILTIAZEM HCL 60 MG TAB PO SCH ×3 (11:31→20:40)
[2016-06-15] MEDS: PANTOPRAZOLE SODIUM 40 MG VIAL IV PUSH SCH (11:31)
[2016-06-15] MEDS: INSULIN DETEMIR 100 UNITS/ML VIAL SQ SCH ×2 (11:32→21:01)
[2016-06-15] MEDS: HEPARIN SODIUM - SQ 10,000 UNITS/ML VIAL SQ SCH ×2 (11:32→20:38)
[2016-06-15] MEDS: CEFEPIME INJ 1,000 MG in SODIUM CHLORIDE 0.9% INJ 100 ML IV SCH (11:33)
--- NOTE | 2016-06-15 22:32 | MB ---
cc: KJ UNDERWOOD DATE OF CONSULTATION 06/15/16 REASON FOR CONSULTATION Respiratory failure post tracheostomy. HISTORY OF PRESENT ILLNESS Mr. Short is a 61-year-old -Stateless male who was hospitalized with altered mental status and evidence of cerebrovascular accident. The patient is unresponsive, does not relate any history. He did develop respiratory failure requiring ventilatory support. Subsequently, the patient had a tracheostomy placed, presently off the ventilator. His oxygen saturation is adequate on T tube. PAST MEDICAL HISTORY 1. Cerebrovascular accident as above 2. Unresponsiveness 3. Coronary artery disease 4. Diabetes mellitus 5. Coronary artery disease post myocardial infarction 6. Hypertension 7. Chronic back pain. 8. Morbid obesity. ALLERGIES PENICILLIN MEDICATIONS Current, 1. Hydralazine. 2. Insulin. 3. Protonix 4. Cefepime 5. Diltiazem 6. Labetalol 7. Nitroglycerin 8. Mannitol 9. Albumin 10. Gentamicin 11. Zofran p.r.n. 12. Epogen 13. Peridex 14. Aspirin. 15. Nebulized albuterol ipratropium FAMILY HISTORY Noncontributory. SOCIAL HISTORY Not obtainable. PHYSICAL EXAMINATION VITAL SIGNS: Temperature 98.9, pulse 80, respiration 20, blood pressure 145/70, oxygen saturation 93% 6 liters oxygen by T-piece HEENT: Unremarkable. Tracheostomy in place. CHEST: Few scattered rhonchi bilaterally. CARDIAC: PMI not appreciated. S1-S2 audible. No murmur or rub. ABDOMEN: Lax, audible bowel sounds. EXTREMITIES: Positive edema. IMPRESSION 1. Altered mental status post CVA 2. Respiratory failure post tracheostomy on T tube 3. Diabetes mellitus 4. Hypertension 5. Coronary artery disease 6. Morbid obesity. PLAN The patient will follow will need long-term oxygen therapy which may be tapered as tolerated. Tracheostomy care and pulmonary toilet will be needed. The patient cannot clear his own secretion. Bronchodilator therapy will be given via nebulizations. His chest x-ray was done June 13 and showed minimal atelectatic change at the bases. His prognosis with his multiple medical problems is very poor. I do thank you for asking me to partake in Mr. Short' care. Kj Underwood MD WWW/ /6:58 PM /10:20 PM
[2016-06-16] VITALS (12 sets, daily range): BP systolic 125–161; BP diastolic 69–94; PULSE 77–101; RESP 17–23; TEMP 99.1–99.4; O2SAT 92–100
[2016-06-16] MEDS: INSULIN NovoLIN REGULAR SUPPLEMENTAL SCALE SQ SCH ×4 (02:12→21:43)
[2016-06-16] MEDS: CHLORHEXIDINE GLUCONATE 2 % 1 PACK (2 CLOTHS) TOP SCH (04:00)
[2016-06-16] MEDS: LABETALOL HCL 200 MG TAB PO SCH ×3 (05:45→21:43)
[2016-06-16] MEDS: hydrALAZINE HCL 25 MG TAB PO SCH ×3 (05:45→21:44)
[2016-06-16 06:09] LABS: AUTOMATED NEUTROPHIL # 9.4 TH/MM3 (1.8-7.7); BASOPHIL # 0.1 TH/MM3 (0-0.2); BASOPHIL % 0.6 % (0.0-2.0); EOSINOPHIL # 0.2 TH/MM3 (0-0.4); EOSINOPHIL % 1.8 % (0.0-4.0); HEMATOCRIT 33.7 % (39.0-51.0); LYMPH % 10.5 % (9.0-44.0); LYMPHOCYTE # 1.3 TH/MM3 (1.0-4.8); MEAN CELL VOLUME 88.6 FL (80.0-100.0); MEAN CORPUSCULAR HEMOGLOBIN 28.9 PG (27.0-34.0); MEAN CORPUSCULAR HGB CONC 32.6 % (32.0-36.0); MONO % 10.6 % (0.0-8.0); NEUT % 76.5 % (16.0-70.0); PLATELET COUNT 402 TH/MM3 (150-450); WHITE BLOOD COUNT 12.2 TH/MM3 (4.0-11.0)
[2016-06-16 06:14] LABS: HEMO FLAGS AUTO DIFF
[2016-06-16 06:53] LABS: ALKALINE PHOSPHATASE 203 U/L (45-117); ALT (GPT) 154 U/L (12-78); ANION GAP 15 MEQ/L (5-15); AST (GOT) 77 U/L (15-37); BICARBONATE 26.7 MEQ/L (21.0-32.0); BLOOD UREA NITROGEN 105 MG/DL (7-18); CHLORIDE 93 MEQ/L (98-107); GLOMERULAR FILTRATION RATE 13 ML/MIN (>89); POTASSIUM 4.2 MEQ/L (3.5-5.1); SODIUM (NA) 135 MEQ/L (136-145); TOTAL BILIRUBIN ADULT 0.6 MG/DL (0.2-1.0)
[2016-06-16 06:58] LABS: BANDS 2 % (0-6); EOSINOPHILS 1 % (0-4); MYELOCYTES 2 % (0-0); NEUTROPHIL # MANUAL DIFF 9.2 TH/MM3 (1.8-7.7); PLATELET ESTIMATE SMEAR NORMAL (NORMAL); PLATELET MORPHOLOGY NORMAL (NORMAL); POLYS (SEG NEUTROPHILS) 71 % (16-70); SCAN/DIFF FINAL DIFF MANUAL; WBC DIFF SAMPLE 100
[2016-06-16] MEDS: CHLORHEXIDINE 0.12% (ORAL KIT) 15 ML CUP MT SCH ×2 (07:47→21:44)
[2016-06-16] MEDS: ASPIRIN 81 MG CHEW TAB CHEW SCH (07:48)
[2016-06-16] MEDS: SODIUM CHLORIDE 0.9% FLUSH 5 ML FLUSH IV FLUSH SCH ×2 (07:50→10:44)
[2016-06-16] MEDS: DILTIAZEM HCL 60 MG TAB PO SCH ×4 (07:50→21:42)
[2016-06-16] MEDS: INSULIN DETEMIR 100 UNITS/ML VIAL SQ SCH ×2 (07:51→21:43)
[2016-06-16] MEDS: HEPARIN SODIUM - SQ 10,000 UNITS/ML VIAL SQ SCH ×2 (07:51→21:42)
[2016-06-16] MEDS: PANTOPRAZOLE SODIUM 40 MG VIAL IV PUSH SCH (07:55)
[2016-06-16] MEDS: ARTIFICIAL TEARS OPTH SOLN 15 ML BTL EACH EYE SCH ×3 (09:00→18:00)
--- NOTE | 2016-06-16 10:26 | HHI.NPPN ---
Subjective History of Present Illness 61 year old with ARF, CHF, Respiratory failure Additional Remarks Patient s/p Trach and off sedation, remain unresponsive, now on HD. Objective Data Data 06/15/16 06/16/16 19:00 07:00 Intake Total 1064 ml 854 ml Output Total 4280 ml 75 ml Balance -3216 ml 779 ml Intake Oral 0 ml IV Total 200 ml 0 ml Tube Feeding 734 ml 764 ml Other 130 ml 90 ml Output Urine Total 80 ml 75 ml Hemodialysis 4200 ml # Bowel Movements 1 Vital Signs Date Time Temp Pulse Resp B/P Pulse Ox O2 Delivery O2 Flow Rate FiO2 06/16/16 08:00 99.3 83 22 136/83 100 06/16/16 07:00 T-Piece 6.00 06/16/16 06:00 82 06/16/16 04:00 99.4 84 17 161/94 92 06/16/16 04:00 84 06/16/16 02:00 101 06/16/16 00:00 99.2 83 19 149/79 99 06/16/16 00:00 83 06/15/16 22:00 80 06/15/16 20:00 80 06/15/16 20:00 99.8 80 18 145/72 100 06/15/16 19:05 94 T-piece 4.00 35 06/15/16 19:00 100 T-Piece 6.00 35 06/15/16 18:00 103 06/15/16 16:00 99.1 82 24 105/63 97 06/15/16 16:00 84 06/15/16 12:00 99.4 91 23 112/68 98 06/15/16 12:00 91 06/15/16 12:00 88 06/15/16 12:00 87 -: 06/16/16 0438 06/16/16 0438 Physical Exam General Appearance: Obese Neck Neck Exam: Neck Supple Pulmonary Resp Exam: Rhonchi, Decreased Bases, Diminished Breath Sounds, Poor Inspiratory Effort Cardiology CV Exam: Tachycardia Gastrointestinal/Abdomen GI Exam: Soft, Non-Tender, Distended Extremeties Extremities Exam: Moderate Edema, Pitting Edema, Dependent Edema Neurologic Neuro Exam: Unresponsive Assessment/Plan Problem List: (1) Acute renal failure Plan: Patient has oliguric acute renal failure and remains essentially oliguric. Continue with HD BUN and Creatinine remains high uf 4.2 l yesterday multiple CVA Anoxic Encephalopathy febrile 99.2 procalcitonin high? it a marker for possible infection d/w Dr. Mariee S/P Trach. 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 Plan: Cardiology following (4) Acute hypoxemic respiratory failure Plan: Off ventilator (5) Hypertensive emergency Plan: BP improved (6) Diabetes mellitus Plan: Continue monitor blood glucose (7) CAD (coronary artery disease) Plan: Presented with STEMI, follow with cardiology (8) Subsequent ST elevation (STEMI) myocardial infarction of anterior wall Plan: Planned transfer to when stable. No intervention performed here. Problem Qualifiers (1) Acute renal failure: Qualified Code: N17.0 - Acute renal failure with tubular necrosis (2) Diabetes mellitus: Qualified Code: E13.8 - Diabetes mellitus of other type with complication, unspecified usp insulin use status (3) CAD (coronary artery disease): Qualified Code: I25.10 - Coronary artery disease, angina presence unspecified, unspecified vessel or lesion type, unspecified whether white earth or transplanted heart Linda Mcintosh MD Jun 16, 2016 10:26
[2016-06-16] MEDS: CEFEPIME INJ 1,000 MG in SODIUM CHLORIDE 0.9% INJ 100 ML IV SCH (10:44)
--- NOTE | 2016-06-16 13:51 | HHI.IDPN ---
Subjective Subjective Remarks Mr. Short is a 61-year-old male who was admitted on May 05, 2016. Patient's past medical history significant for hypertensive heart disease, hypertension, type 2 diabetes and spinal stenosis. Patient presented to [facility] on the day of admission with history of acute onset of diaphoresis chest pain and syncope. Patient now has retroperitoneal hematoma, IC bleed. ID following for possible sepsis. Delayed entry patient seen at 11 am Notes reviewed D/W RN Tmax 101 F On CPAP overnight, on T-piece currently Mucus plug noted by RT. No rash No diarrhea Antibiotics Levaquin Cefepime Lines Line sites with no e/o infection Past Medical History reviewed Allergies: Coded Allergies: Penicillin (Verified Allergy, Mild, "I GO CRAZY", 09/01/15) Objective . Vital Signs Date Time Temp Pulse Resp B/P Pulse Ox O2 Delivery O2 Flow Rate FiO2 06/16/16 11:57 100 T-piece 35 06/16/16 08:00 99.3 83 22 136/83 100 06/16/16 07:00 T-Piece 6.00 06/16/16 06:00 82 06/16/16 04:00 99.4 84 17 161/94 92 06/16/16 04:00 84 06/16/16 02:00 101 06/16/16 00:00 99.2 83 19 149/79 99 06/16/16 00:00 83 06/15/16 22:00 80 06/15/16 20:00 80 06/15/16 20:00 99.8 80 18 145/72 100 06/15/16 19:05 94 T-piece 4.00 35 06/15/16 19:00 100 T-Piece 6.00 35 06/15/16 18:00 103 06/15/16 16:00 99.1 82 24 105/63 97 06/15/16 16:00 84 06/15/16 06/15/16 06/16/16 15:00 23:00 07:00 Intake Total 1064 ml 469 ml 385 ml Output Total 4280 ml 50 ml 25 ml Balance -3216 ml 419 ml 360 ml Intake Oral 0 ml 0 ml IV Total 200 ml 0 ml 0 ml Tube Feeding 734 ml 409 ml 355 ml Other 130 ml 60 ml 30 ml Output Urine Total 80 ml 50 ml 25 ml Hemodialysis 4200 ml # Bowel Movements 1 0 . Laboratory Tests Test 06/15/16 06/16/16 03:30 04:38 White Blood Count 10.1 TH/MM3 12.2 TH/MM3 Red Blood Count 3.55 MIL/MM3 3.80 MIL/MM3 Hemoglobin 10.3 GM/DL 11.0 GM/DL Hematocrit 31.1 % 33.7 % Mean Corpuscular Volume 87.8 FL 88.6 FL Mean Corpuscular Hemoglobin 29.0 PG 28.9 PG Mean Corpuscular Hemoglobin 33.1 % 32.6 % Concent Red Cell Distribution Width 16.2 % 16.0 % Platelet Count 333 TH/MM3 402 TH/MM3 Mean Platelet Volume 8.5 FL 8.5 FL Neutrophils (%) (Auto) 77.5 % 76.5 % Lymphocytes (%) (Auto) 9.9 % 10.5 % Monocytes (%) (Auto) 10.4 % 10.6 % Eosinophils (%) (Auto) 1.6 % 1.8 % Basophils (%) (Auto) 0.6 % 0.6 % Neutrophils # (Auto) 7.8 TH/MM3 9.4 TH/MM3 Lymphocytes # (Auto) 1.0 TH/MM3 1.3 TH/MM3 Monocytes # (Auto) 1.0 TH/MM3 1.3 TH/MM3 Eosinophils # (Auto) 0.2 TH/MM3 0.2 TH/MM3 Basophils # (Auto) 0.1 TH/MM3 0.1 TH/MM3 CBC Comment DIFF FINAL AUTO DIFF Differential Comment FINAL DIFF MANUAL Differential Total Cells 100 Counted Neutrophils % (Manual) 71 % Band Neutrophils % 2 % Lymphocytes % 12 % Monocytes % 12 % Eosinophils % 1 % Neutrophils # (Manual) 9.2 TH/MM3 Myelocytes 2 % Platelet Estimate NORMAL Platelet Morphology Comment NORMAL Red Cell Morphology Comment NORMAL Laboratory Tests Test 06/15/16 06/15/16 06/15/16 06/16/16 03:30 12:20 17:51 04:38 Sodium Level 136 MEQ/L 135 MEQ/L Potassium Level 4.3 MEQ/L 4.2 MEQ/L Chloride Level 95 MEQ/L 93 MEQ/L Carbon Dioxide Level 26.0 MEQ/L 26.7 MEQ/L Anion Gap 15 MEQ/L 15 MEQ/L Blood Urea Nitrogen 122 MG/DL 105 MG/DL Creatinine 6.17 MG/DL 5.53 MG/DL Estimat Glomerular Filtration 11 ML/MIN 13 ML/MIN Rate Random Glucose 240 MG/DL 235 MG/DL Calcium Level 8.9 MG/DL 9.2 MG/DL Procalcitonin 6.65 ng/mL 7.77 ng/mL Total Bilirubin 0.6 MG/DL Aspartate Amino Transf 77 U/L (AST/SGOT) Alanine Aminotransferase 154 U/L (ALT/SGPT) Alkaline Phosphatase 203 U/L Total Protein 8.1 GM/DL Albumin 2.8 GM/DL Microbiology Date/Time Procedure Status Source Growth 06/14/16 08:45 Gram Stain - Final Resulted Sputum Endotracheal 06/14/16 08:45 Sputum Culture - Preliminary Resulted Gram Negative Oswaldo 06/14/16 08:45 Urine Culture - Preliminary Resulted Urine Catheterized Urine Yeast-Id To Follow 06/14/16 10:20 Aerobic Blood Culture - Preliminary Resulted Blood Peripheral NO GROWTH IN 2 DAYS 06/14/16 10:20 Anaerobic Blood Culture - Preliminary Resulted Blood Peripheral NO GROWTH IN 2 DAYS 06/14/16 10:25 Aerobic Blood Culture - Preliminary Resulted Blood Peripheral NO GROWTH IN 2 DAYS 06/14/16 10:25 Anaerobic Blood Culture - Preliminary Resulted Blood Peripheral NO GROWTH IN 2 DAYS Imaging Chest X-Ray 06/11/16 0600 Signed Impressions: Service Date/Time: Saturday, June 11, 2016 03:12 - CONCLUSION: No significant change has occurred. Ronald Tinsley MD Chest X-Ray 06/10/16 0000 Signed Impressions: Service Date/Time: Friday, June 10, 2016 07:53 - CONCLUSION: No significant change. Persistent hazy right upper lung opacity. Hal Finn MD Liver Ultrasound 06/06/16 0000 Signed Impressions: Service Date/Time: Monday, June 06, 2016 14:18 - CONCLUSION: 1. Liver slightly echogenic which can be seen with fatty infiltration. 2. Spleen not visualized. 3. There may be some minimal gallbladder sludge but no cholelithiasis or wall thickening. Carlitos Aguirre MD Upper Extremity Ultrasound 06/05/16 0000 Signed Impressions: Service Date/Time: Sunday, June 05, 2016 11:01 - CONCLUSION: Occlusive thrombus right cephalic vein and left basilic vein Shahid Sin MD Lower Extremity Ultrasound 06/05/16 0000 Signed Impressions: Service Date/Time: Sunday, June 05, 2016 16:05 - CONCLUSION: Normal examination. No evidence of DVT Shahid Sin MD Gastrostomy Tube Placement 06/02/16 0000 Signed Impressions: Service Date/Time: Thursday, June 02, 2016 12:31 - CONCLUSION: Uncomplicated gastrostomy tube placement as above. Isidro Flor MD Catheter Placement X-Ray 06/02/16 0000 Signed Impressions: Service Date/Time: Thursday, June 02, 2016 12:31 - CONCLUSION: 1. Uncomplicated line placement as above. 2. Patient currently has a modified left subclavian PermCath catheter that is being utilized as a temporary access. Isidro Flor MD Brain MRI 05/27/16 0000 Signed Impressions: Service Date/Time: Friday, May 27, 2016 12:17 - CONCLUSION: Multifocal bilateral T2 signal abnormalities in restricted diffusion concerning for bilateral lacunar infarcts. Carlitos Aguirre MD Head CT 05/16/16 0000 Signed Impressions: Service Date/Time: Monday, May 16, 2016 08:30 - CONCLUSION: Suspected bilateral basal ganglia calcifications are unchanged. No evidence of hemorrhage, edema, mass or mass effect. Stephen Quintanilla MD Abdomen/Pelvis CT 05/16/16 0000 Signed Impressions: Service Date/Time: Monday, May 16, 2016 08:39 - CONCLUSION: There are large areas of hemorrhage including the left retroperitoneum and psoas muscle, within the mesentery and a smaller area in the right psoas muscle. They don't appear to be related to the abdominal aorta or the internal iliac arteries. There is a small focal collection hemorrhage adjacent to the left external iliac artery as it enters the pelvis, but I don't believe that is related to the large amount of hemorrhage seen elsewhere. The areas of hemorrhage are large and multi-focal. Stephen Quintanilla MD CT Angiography 05/06/16 0000 Signed Impressions: Service Date/Time: Saturday, May 07, 2016 00:04 - CONCLUSION: 1. Lobar consolidation bilaterally in the lower lobes. 2. Negative for pulmonary embolism. Michael Colbert MD Physical Exam GENERAL: On the vent, looks slightly dyspneic, on T-piece SKIN: No rashes, ecchymoses or lesions. Cool and dry. HEENT: Pupils equal round and reactive. No scleral icterus. No injection or drainage. NECK: Trachea midline. Trach site ok. Supple, no meningeal signs. CARDIOVASCULAR: HS audible. RESPIRATORY: Decreased BS both lung ye GASTROINTESTINAL: Abdomen soft, non-tender, nondistended. Obese MUSCULOSKELETAL: Extremities with wrinkling of skin noted. Improving edema NEUROLOGICAL: Off sedation and no response. Psych: could not be assessed IV line sites with no e/o infection. Assessment & Plan Remarks New fever ? drug fever, funguria. Enterobacter cloacae Pneumonia. - has new infiltrates on CXR - though CXR today looks better than yesterday, ?atelectasis, he has been doing T-piece trials Possible Cath associated UTI. Possible Central line associated Blood Stream Infection. Acute metabolic encephalopathy Acute resp failure, S/P trach, component of STU Acute kidney injury: prerenal from hemodynamic changes, chronic HTN related. DM2 uncontrolled: stress as additional factor. CAD non ischemic cardiomyopathy Anemia: acute due to Retroperitoneal bleed. Receiving blood transfusions. Recs: DC Levaquin DC Cefepime Start diflucan oral for 5 days. Agree with jolly cultures Monitor temps Follow new C/S Monitor progress Weaning per CCM D/W RN Will sign off please call back if any change in clinical condition. Tracy Mariee MD Jun 16, 2016 13:51
--- NOTE | 2016-06-16 15:49 | HHI.PR ---
Subjective Remarks family at bedside patient with tracheostomy/PEG no purposeful movements Objective Vitals Vital Signs Date Time Temp Pulse Resp B/P Pulse Ox O2 Delivery O2 Flow Rate FiO2 06/16/16 11:57 100 T-piece 35 06/16/16 08:00 99.3 83 22 136/83 100 06/16/16 07:00 T-Piece 6.00 06/16/16 06:00 82 06/16/16 04:00 99.4 84 17 161/94 92 06/16/16 04:00 84 06/16/16 02:00 101 06/16/16 00:00 99.2 83 19 149/79 99 06/16/16 00:00 83 06/15/16 22:00 80 06/15/16 20:00 80 06/15/16 20:00 99.8 80 18 145/72 100 06/15/16 19:05 94 T-piece 4.00 35 06/15/16 19:00 100 T-Piece 6.00 35 06/15/16 18:00 103 06/15/16 16:00 99.1 82 24 105/63 97 06/15/16 16:00 84 I/O 06/15/16 06/15/16 06/15/16 06/16/16 06/16/16 06/16/16 06:59 14:59 22:59 06:59 14:59 22:59 Intake Total 417 ml 1064 ml 469 ml 385 ml Output Total 75 ml 4280 ml 50 ml 25 ml Balance 342 ml -3216 ml 419 ml 360 ml Intake Oral 0 ml 0 ml 0 ml IV Total 0 ml 200 ml 0 ml 0 ml Tube Feeding 357 ml 734 ml 409 ml 355 ml Other 60 ml 130 ml 60 ml 30 ml Output Urine Total 75 ml 80 ml 50 ml 25 ml Hemodialysis 4200 ml # Bowel Movements 1 1 0 Result Diagram: 06/16/16 0438 06/16/16 0438 Imaging Last Impressions Chest X-Ray 06/13/16 0600 Signed Impressions: Service Date/Time: Monday, June 13, 2016 05:00 - CONCLUSION: 1. Support apparatus unchanged. Minimal basilar dependent opacity in the lungs. Marek Bowers MD Chest CT 06/10/16 0000 Signed Impressions: Service Date/Time: Friday, June 10, 2016 16:11 - CONCLUSION: 1. Patchy infiltrates right upper lobe, left upper lobe and superior segments of the lower lobes. 2. Thickening of the right major fissure. 3. Bilateral gynecomastia. 4. Coronary artery calcifications. Carlitos Aguirre MD Liver Ultrasound 06/06/16 Signed Impressions: Service Date/Time: Monday, June 06, 2016 14:18 - CONCLUSION: 1. Liver slightly echogenic which can be seen with fatty infiltration. 2. Spleen not visualized. 3. There may be some minimal gallbladder sludge but no cholelithiasis or wall thickening. Carlitos Aguirre MD Upper Extremity Ultrasound 06/05/16 Signed Impressions: Service Date/Time: Sunday, June 05, 2016 11:01 - CONCLUSION: Occlusive thrombus right cephalic vein and left basilic vein Shahid Sin MD Lower Extremity Ultrasound 06/05/16 Signed Impressions: Service Date/Time: Sunday, June 05, 2016 16:05 - CONCLUSION: Normal examination. No evidence of DVT Shahid Sin MD Gastrostomy Tube Placement 06/02/16 Signed Impressions: Service Date/Time: Thursday, June 02, 2016 12:31 - CONCLUSION: Uncomplicated gastrostomy tube placement as above. Isidro Flor MD Catheter Placement X-Ray 06/02/16 Signed Impressions: Service Date/Time: Thursday, June 02, 2016 12:31 - CONCLUSION: 1. Uncomplicated line placement as above. 2. Patient currently has a modified left subclavian PermCath catheter that is being utilized as a temporary access. Isidro Flor MD Brain MRI 05/27/16 Signed Impressions: Service Date/Time: Friday, May 27, 2016 12:17 - CONCLUSION: Multifocal bilateral T2 signal abnormalities in restricted diffusion concerning for bilateral lacunar infarcts. Carlitos Aguirre MD Head CT 05/16/16 0000 Signed Impressions: Service Date/Time: Monday, May 16, 2016 08:30 - CONCLUSION: Suspected bilateral basal ganglia calcifications are unchanged. No evidence of hemorrhage, edema, mass or mass effect. Stephen Quintanilla MD Abdomen/Pelvis CT 05/16/16 0000 Signed Impressions: Service Date/Time: Monday, May 16, 2016 08:39 - CONCLUSION: There are large areas of hemorrhage including the left retroperitoneum and psoas muscle, within the mesentery and a smaller area in the right psoas muscle. They don't appear to be related to the abdominal aorta or the internal iliac arteries. There is a small focal collection hemorrhage adjacent to the left external iliac artery as it enters the pelvis, but I don't believe that is related to the large amount of hemorrhage seen elsewhere. The areas of hemorrhage are large and multi-focal. Stephen Quintanilla MD CT Angiography 05/06/16 0000 Signed Impressions: Service Date/Time: Saturday, May 07, 2016 00:04 - CONCLUSION: 1. Lobar consolidation bilaterally in the lower lobes. 2. Negative for pulmonary embolism. Michael Colbert MD Objective Remarks comatose, no purposeful movements anicteric tracheostomy tube PEG in place lungs- decrease breath sounds regular rhythm abdomen- globularly soft extremities- + edema A/P Assessment and Plan Bilateral basal ganglia infarcts, small punctate white matter infarcts on MRI Metabolic encephalopathy- Vegetative state Neurology Dr. Felix. MRI of the brain done 05/16/16 shows small punctate white matter infarcts, bilateral basal ganglia infarcts. Repeat MRI brain 05/[address] 05/08, 05/16: negative acute. EEG 05/12 revealed generalized slowing right greater than left. No epileptiform activity. EEG 05/16: No seizure, severe encephalopathy. EEG 06/08 moderate encephalopathy, no seizure CV: Hemorrhagic shock due to left retroperitoneal hemorrhage-shock resolved Severe bradycardia and hypotension 05/17/16 most likely secondary to recurrent bleed Aberrant RCA off LCC Nonsustained V. tach single episode Diastolic heart failure Coronary artery disease Nonischemic cardiomyopathy secondary to hypertensive heart disease Hypertensive emergency On Labetalol 200 every 8, Hydralazine 75mg Q 8hrs, Cardizem 60mg QID, ASA 81mg daily Status post cardiac catheterization by Dr. Moy. No intervention performed. Known coronary artery artery disease to the first and second diagonals the LAD. Aberrant RCA off left coronary cups. No transfer to fo RCA for unroofing due to lack of improvement in neuro status Lipitor 20 mg by mouth daily held in light of elevated liver function tests Pulm: Acute hypoxemic respiratory failure-extubated 05/13/16, re intubated 05/16/16 for airway protection New right upper lobe infiltrate Likely underlying STU Previous Right upper lobe mucus plugging Continue with oxygen keep sat >92% S/P percutaneous tracheostomy. 8.0 Yasmine 06/01 Has been on TP with 35% FIO2 >24hrs Bronchodilator therapy every 4 hours and as needed. Pulm toilet, trach care GI: S/P large left retroperitoneal hemorrhage 05/15 Hypoalbuminemia Elevated LFT's Monitor LFT's, US liver: Liver slightly echogenic which can be seen with fatty infiltration. Minimal gallbladder sludge] Continue TF via PEG (Nepro at 50 cc an hour) Continue Protonix for GI prophylaxis /Renal: Acute kidney failure due to ATN Anuria Chaudhry for accurate I's and O's in a critically ill patient HD started 05/17/16 Dr. Mcintosh. - // Endo: Diabetes mellitus type 2 Hyperglycemia -SSI medium scale with accuchecks Q6, add Levemir 7u Q12 Heme: s/p Acute blood loss anemia with shock Large left retroperitoneal hemorrhage Right cephalic superficial thrombus left basilic thrombus/right PT THROMBUS Normocytic anemia Leukocytosis...trending down Monitor CBC, Heme is following. On Epogen with HD Transfused 3 units PRBC stat on 05/16/16 Transfused 3 units PRBC and 2 units FFP Transfuse 1 unit PRBCs 05/19. Therapeutic Lovenox discontinued, aspirin placed on hold, now on DVT prophylactic dose of Heparin. Aspirin resumed 06/11/16 75 mg IV protamine slow infusion (D/W with Dr. mcintosh) on 05/16/16. Was on Lovenox 150 mg subcutaneous twice a day-DCd 05/16/16 ID: Aspiration pneumonia/Enterobacter aerogenes in sputum Leukocytosis -Mucus plugging versus new RUL pneumonia-check CT of the chest today to to -abx - Cefepime, Levaquin - discontinued 06/16 - Diflucan po x 5 days Pertinent cultures 05/10 Sputum Enterobacter 05/07 - blood cultures 2 - negative 05/08 - sputum - negative 05/08 - urine - negative 05/08 - blood cultures - negative 05/13 - blood cx negative 05/13 - urine cx negative 05/16 - sputum Enterobacter aerogenes 05/16 - urine neg 131 - blood cultures neg 05/18 - blood cultures- negative 05/19 - bronchoscopy - Yeast 05/27 Sputum Enterobacter 06/02, 06/06. 06/10 Sputum: Enterobacter 06/06 Urine cx: C. Glabrata MSK: History of spinal stenosis/laminectomy/left total knee replacement and left ring finger amputation PT evaluate and treat Access - Peripheral IV;'s Prophylaxis -GI - Protonix 40mg daily -DVT -Heparin 5000 SQ BID, SCD on L leg -06/05 Doppler US LE: No DVT -06/05 Doppler US UE: Right cephalic and left basilic occlusive thrombus- on SQ heparin per Heme. -05/25 Doppler US UE: Occlusive thrombus in the right distal cephalic vein. Nonocclusive thrombus in the left mid and distal basilic veins. Kyree Thomas MD Jun 16, 2016 15:49 Kyree Thomas MD Jun 16, 2016 15:49
--- NOTE | 2016-06-16 16:48 | HHI.PR ---
Subjective Remarks no change vegitative state Objective Vital Signs Date Time Temp Pulse Resp B/P Pulse Ox O2 Delivery O2 Flow Rate FiO2 06/16/16 16:00 99.1 79 23 141/81 100 06/16/16 12:00 99.2 100 22 155/89 100 06/16/16 11:57 100 T-piece 35 06/16/16 08:00 99.3 83 22 136/83 100 06/16/16 07:00 T-Piece 6.00 06/16/16 06:00 82 06/16/16 04:00 99.4 84 17 161/94 92 06/16/16 04:00 84 06/16/16 02:00 101 06/16/16 00:00 99.2 83 19 149/79 99 06/16/16 00:00 83 06/15/16 22:00 80 06/15/16 20:00 80 06/15/16 20:00 99.8 80 18 145/72 100 06/15/16 19:05 94 T-piece 4.00 35 06/15/16 19:00 100 T-Piece 6.00 35 06/15/16 18:00 103 I/O 06/15/16 06/15/16 06/15/16 06/16/16 06/16/16 06/16/16 07:00 15:00 23:00 07:00 15:00 23:00 Intake Total 417 ml 1064 ml 469 ml 385 ml 640 ml Output Total 75 ml 4280 ml 50 ml 25 ml 100 ml Balance 342 ml -3216 ml 419 ml 360 ml 540 ml Intake Oral 0 ml 0 ml 0 ml 0 ml IV Total 0 ml 200 ml 0 ml 0 ml 100 ml Tube Feeding 357 ml 734 ml 409 ml 355 ml 420 ml Other 60 ml 130 ml 60 ml 30 ml 120 ml Output Urine Total 75 ml 80 ml 50 ml 25 ml 100 ml Hemodialysis 4200 ml # Bowel Movements 1 1 0 0 Result Diagram: 06/16/16 0438 06/16/16 0438 Objective Remarks GENERAL: SKIN: Warm and dry. HEAD: Atraumatic. Normocephalic. EYES: Pupils equal and round. No scleral icterus. No injection or drainage. ENT: No nasal bleeding or discharge. Mucous membranes pink and moist. NECK: Trachea midline. No JVD. tracheostomy in place CARDIOVASCULAR: Regular rate and rhythm. RESPIRATORY: No accessory muscle use. Clear to auscultation. Breath sounds equal bilaterally. GASTROINTESTINAL: Abdomen soft, non-tender, nondistended. Hepatic and splenic margins not palpable. MUSCULOSKELETAL: Extremities without clubbing, cyanosis, or edema. No obvious deformities. NEUROLOGICAL: Awake and alert. No obvious cranial nerve deficits. Motor grossly within normal limits. Five out of 5 muscle strength in the arms and legs. Normal speech. PSYCHIATRIC: Appropriate mood and affect; insight and judgment normal. Assessment and Plan Assessment and Plan respiratory failure s/p Tracheostomy vegetative state PLAN 02 as needed pulmonary toilet outlook poor Kj Underwood MD Jun 16, 2016 16:48
[2016-06-16] MEDS: RESP: ALBUTEROL 2.5 MG/IPRATROPIUM 0.5 MG NEB (PRN) INH (21:03)
[2016-06-17] VITALS (12 sets, daily range): BP systolic 111–162; BP diastolic 67–92; PULSE 71–111; RESP 20–29; TEMP 98–100.6; O2SAT 89–98
[2016-06-17] MEDS: INSULIN NovoLIN REGULAR SUPPLEMENTAL SCALE SQ SCH ×4 (01:23→20:30)
[2016-06-17] MEDS: CHLORHEXIDINE GLUCONATE 2 % 1 PACK (2 CLOTHS) TOP SCH (02:33)
[2016-06-17] MEDS: RESP: ALBUTEROL 2.5 MG/IPRATROPIUM 0.5 MG NEB (PRN) INH ×3 (04:02→20:39)
[2016-06-17] MEDS: LABETALOL HCL 200 MG TAB PO SCH ×3 (05:29→23:03)
[2016-06-17] MEDS: hydrALAZINE HCL 25 MG TAB PO SCH ×3 (05:29→23:03)
[2016-06-17] MEDS: SODIUM CHLOR 0.9% 1000 ML INJ 1,000 ML IV PRN ×2 (06:43→06:44)
[2016-06-17] MEDS: GENTAMICIN SULFATE (DIALYSIS USE ONLY) 20 MG/2 ML VIAL IV PRN (06:44)
[2016-06-17] MEDS: HEPARIN SODIUM - IV 10,000 UNITS/10 ML VIAL PRN (06:44)
[2016-06-17] MEDS: SODIUM CHLORIDE 0.9% FLUSH 5 ML FLUSH IVF PRN (06:45)
[2016-06-17] MEDS: EPOETIN ALFA 10,000 UNITS/ML VIAL IV PRN (06:45)
[2016-06-17] MEDS: CHLORHEXIDINE 0.12% (ORAL KIT) 15 ML CUP MT SCH ×2 (08:44→21:04)
[2016-06-17] MEDS: DILTIAZEM HCL 60 MG TAB PO SCH ×4 (08:44→21:04)
[2016-06-17] MEDS: ASPIRIN 81 MG CHEW TAB CHEW SCH (08:44)
[2016-06-17] MEDS: SODIUM CHLORIDE 0.9% FLUSH 5 ML FLUSH IV FLUSH SCH ×2 (08:45→21:04)
[2016-06-17] MEDS: HEPARIN SODIUM - SQ 10,000 UNITS/ML VIAL SQ SCH ×2 (08:45→21:32)
[2016-06-17] MEDS: PANTOPRAZOLE SODIUM 40 MG VIAL IV PUSH SCH (08:45)
[2016-06-17] MEDS: FLUCONAZOLE 100 MG TAB PO SCH (08:45)
[2016-06-17] MEDS: INSULIN DETEMIR 100 UNITS/ML VIAL SQ SCH ×2 (08:45→21:05)
[2016-06-17] MEDS: ARTIFICIAL TEARS OPTH SOLN 15 ML BTL EACH EYE SCH ×3 (08:46→21:03)
--- NOTE | 2016-06-17 12:02 | HHI.NPPN ---
Subjective History of Present Illness 61 year old with ARF, CHF, Respiratory failure Additional Remarks Patient s/p Trach and off sedation, remain unresponsive, now on HD. Objective Data Data 06/16/16 06/17/16 19:00 07:00 Intake Total 640 ml 640 ml Output Total 100 ml 100 ml Balance 540 ml 540 ml Intake Oral 0 ml IV Total 100 ml 25 ml Tube Feeding 420 ml 615 ml Other 120 ml Output Urine Total 100 ml 100 ml # Bowel Movements 0 Vital Signs Date Time Temp Pulse Resp B/P Pulse Ox O2 Delivery O2 Flow Rate FiO2 06/17/16 10:00 111 06/17/16 08:00 91 06/17/16 08:00 98.2 91 22 111/67 95 06/17/16 07:37 97 T-piece 28 06/17/16 07:00 98 T-Piece 5.00 28 06/17/16 04:00 98.1 99 20 158/92 96 06/17/16 00:00 98.0 92 20 134/83 98 06/16/16 21:00 98 T-piece 5.00 35 06/16/16 20:00 99.1 77 18 125/69 98 06/16/16 19:00 T-Piece 6.00 06/16/16 16:00 99.1 79 23 141/81 100 06/16/16 16:00 79 06/16/16 14:00 100 -: 06/16/16 0438 06/16/16 0438 Physical Exam General Appearance: Obese Neck Neck Exam: Neck Supple Pulmonary Resp Exam: Rhonchi, Decreased Bases, Diminished Breath Sounds, Poor Inspiratory Effort Cardiology CV Exam: Tachycardia Gastrointestinal/Abdomen GI Exam: Soft, Non-Tender, Distended Extremeties Extremities Exam: Moderate Edema, Pitting Edema, Dependent Edema Neurologic Neuro Exam: Unresponsive Assessment/Plan Problem List: (1) Acute renal failure Plan: Patient has oliguric acute renal failure and remains essentially oliguric. Continue with HD BUN and Creatinine remains high uf 4 L today multiple CVA Anoxic Encephalopathy febrile 99.2 procalcitonin high fluconazole added S/P Trach. 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 Plan: Cardiology following (4) Acute hypoxemic respiratory failure Plan: Off ventilator (5) Hypertensive emergency Plan: BP improved (6) Diabetes mellitus Plan: Continue monitor blood glucose (7) CAD (coronary artery disease) Plan: Presented with STEMI, follow with cardiology (8) Subsequent ST elevation (STEMI) myocardial infarction of anterior wall Plan: Planned transfer to [facility] when stable. No intervention performed here. 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
--- NOTE | 2016-06-17 16:35 | HHI.PR ---
Subjective Remarks tolerating tube feedings had hemodialysis today seen with at bedside hay[facility] since 05/13- change today Objective Vitals Vital Signs Date Time Temp Pulse Resp B/P Pulse Ox O2 Delivery O2 Flow Rate FiO2 06/17/16 14:00 94 06/17/16 12:00 99.4 106 27 132/81 96 06/17/16 10:00 111 06/17/16 08:00 91 06/17/16 08:00 98.2 91 22 111/67 95 06/17/16 07:37 97 T-piece 28 06/17/16 07:00 98 T-Piece 5.00 28 06/17/16 04:00 98.1 99 20 158/92 96 06/17/16 00:00 98.0 92 20 134/83 98 06/16/16 21:00 98 T-piece 5.00 35 06/16/16 20:00 99.1 77 18 125/69 98 06/16/16 19:00 T-Piece 6.00 I/O 06/16/16 06/16/16 06/16/16 06/17/16 06/17/16 06/17/16 07:00 15:00 23:00 07:00 15:00 23:00 Intake Total 385 ml 640 ml 336 ml 304 ml 476 ml Output Total 25 ml 100 ml 50 ml 50 ml 4100 ml Balance 360 ml 540 ml 286 ml 254 ml -3624 ml Intake Oral 0 ml 0 ml 0 ml IV Total 0 ml 100 ml 25 ml 47 ml Tube Feeding 355 ml 420 ml 336 ml 279 ml 429 ml Other 30 ml 120 ml Output Urine Total 25 ml 100 ml 50 ml 50 ml 100 ml Hemodialysis 4000 ml # Bowel Movements 0 0 0 Result Diagram: 06/16/16 0438 06/16/16 0438 Imaging Last Impressions Chest X-Ray 06/13/16 0600 Signed Impressions: Service Date/Time: Monday, June 13, 2016 05:00 - CONCLUSION: 1. Support apparatus unchanged. Minimal basilar dependent opacity in the lungs. Marek Bowers MD Chest CT 06/10/16 0000 Signed Impressions: Service Date/Time: Friday, June 10, 2016 16:11 - CONCLUSION: 1. Patchy infiltrates right upper lobe, left upper lobe and superior segments of the lower lobes. 2. Thickening of the right major fissure. 3. Bilateral gynecomastia. 4. Coronary artery calcifications. Carlitos Aguirre MD Liver Ultrasound 06/06/16 Signed Impressions: Service Date/Time: Monday, June 06, 2016 14:18 - CONCLUSION: 1. Liver slightly echogenic which can be seen with fatty infiltration. 2. Spleen not visualized. 3. There may be some minimal gallbladder sludge but no cholelithiasis or wall thickening. Carlitos Aguirre MD Upper Extremity Ultrasound 06/05/16 Signed Impressions: Service Date/Time: Sunday, June 05, 2016 11:01 - CONCLUSION: Occlusive thrombus right cephalic vein and left basilic vein Shahid Sin MD Lower Extremity Ultrasound 06/05/16 Signed Impressions: Service Date/Time: Sunday, June 05, 2016 16:05 - CONCLUSION: Normal examination. No evidence of DVT Shahid Sin MD Gastrostomy Tube Placement 06/02/16 Signed Impressions: Service Date/Time: Thursday, June 02, 2016 12:31 - CONCLUSION: Uncomplicated gastrostomy tube placement as above. Isidro Flor MD Catheter Placement X-Ray 06/02/16 Signed Impressions: Service Date/Time: Thursday, June 02, 2016 12:31 - CONCLUSION: 1. Uncomplicated line placement as above. 2. Patient currently has a modified left subclavian PermCath catheter that is being utilized as a temporary access. Isidro Flor MD Brain MRI 05/27/16 Signed Impressions: Service Date/Time: Friday, May 27, 2016 12:17 - CONCLUSION: Multifocal bilateral T2 signal abnormalities in restricted diffusion concerning for bilateral lacunar infarcts. Carlitos Aguirre MD Head CT 05/16/16 Signed Impressions: Service Date/Time: Monday, May 16, 2016 08:30 - CONCLUSION: Suspected bilateral basal ganglia calcifications are unchanged. No evidence of hemorrhage, edema, mass or mass effect. Stephen Quintanilla MD Abdomen/Pelvis CT 05/16/16 Signed Impressions: Service Date/Time: Monday, May 16, 2016 08:39 - CONCLUSION: There are large areas of hemorrhage including the left retroperitoneum and psoas muscle, within the mesentery and a smaller area in the right psoas muscle. They don't appear to be related to the abdominal aorta or the internal iliac arteries. There is a small focal collection hemorrhage adjacent to the left external iliac artery as it enters the pelvis, but I don't believe that is related to the large amount of hemorrhage seen elsewhere. The areas of hemorrhage are large and multi-focal. Stephen Quintanilla MD CT Angiography 05/06/16 0000 Signed Impressions: Service Date/Time: Saturday, May 07, 2016 00:04 - CONCLUSION: 1. Lobar consolidation bilaterally in the lower lobes. 2. Negative for pulmonary embolism. Michael Colbert MD Objective Remarks comatose, no purposeful movements anicteric, pupils equal tracheostomy tube PEG in place lungs- decrease breath sounds regular rhythm abdomen- globularly soft extremities- + edema Urinary Catheter: Yes Assessment to: Continue Blake insert reason: Prolonged Immobilization Date of Insertion: Jun 17, 2016 Date of Removal: Jun 17, 2016 A/P Assessment and Plan Bilateral basal ganglia infarcts, small punctate white matter infarcts on MRI - Vegetative state Neurology Dr. Felix. MRI of the brain done 05/16/16 shows small punctate white matter infarcts, bilateral basal ganglia infarcts. Repeat MRI brain 05/[address] 05/08, 05/16: negative acute. EEG 05/12 revealed generalized slowing right greater than left. No epileptiform activity. EEG 05/16: No seizure, severe encephalopathy. EEG 06/08 moderate encephalopathy, no seizure CV: Hemorrhagic shock due to left retroperitoneal hemorrhage-shock resolved Severe bradycardia and hypotension 05/17/16 most likely secondary to recurrent bleed Aberrant RCA off LCC Nonsustained V. tach single episode Diastolic heart failure Coronary artery disease Nonischemic cardiomyopathy secondary to hypertensive heart disease Hypertensive emergency On Labetalol 200 every 8, Hydralazine 75mg Q 8hrs, Cardizem 60mg QID, ASA 81mg daily Status post cardiac catheterization by Dr. Moy. No intervention performed. Known coronary artery artery disease to the first and second diagonals the LAD. Aberrant RCA off left coronary cups. No transfer to fo RCA for unroofing due to lack of improvement in neuro status Lipitor 20 mg by mouth daily held in light of elevated liver function tests Pulm: Acute hypoxemic respiratory failure-extubated 05/13/16, re intubated 05/16/16 for airway protection New right upper lobe infiltrate Likely underlying STU Previous Right upper lobe mucus plugging Continue with oxygen keep sat >92% S/P percutaneous tracheostomy. 8.0 Yasmine 06/01 Has been on TP with 35% FIO2 >24hrs Bronchodilator therapy every 4 hours and as needed. Pulm toilet, trach care GI: S/P large left retroperitoneal hemorrhage 05/15 Hypoalbuminemia Elevated LFT's Monitor LFT's, US liver: Liver slightly echogenic which can be seen with fatty infiltration. Minimal gallbladder sludge] Continue TF via PEG (Nepro at 50 cc an hour) Continue Protonix for GI prophylaxis /Renal: Acute kidney failure due to ATN Anuria blake in place- change today 06/17 HD started 05/17/16 Dr. Mcintosh. -- // Endo: Diabetes mellitus type 2 Hyperglycemia -SSI medium scale with accuchecks Q6 on Levemir 7u Q12 Heme: s/p Acute blood loss anemia with shock Large left retroperitoneal hemorrhage Right cephalic superficial thrombus left basilic thrombus/right PT THROMBUS Normocytic anemia Leukocytosis...trending down Monitor CBC, Heme is following. On Epogen with HD Transfused 3 units PRBC stat on 05/16/16 Transfused 3 units PRBC and 2 units FFP Transfuse 1 unit PRBCs 05/19. Therapeutic Lovenox discontinued, aspirin placed on hold, now on DVT prophylactic dose of Heparin. Aspirin resumed 06/11/16 75 mg IV protamine slow infusion (D/W with Dr. mcintosh) on 05/16/16. Was on Lovenox 150 mg subcutaneous twice a day-DCd 05/16/16 ID: Aspiration pneumonia/Enterobacter aerogenes in sputum Leukocytosis -Mucus plugging versus new RUL pneumonia-check CT of the chest today to to -abx - Cefepime, Levaquin - discontinued 06/16 - Diflucan po x 5 days Pertinent cultures 05/10 Sputum Enterobacter 05/07 - blood cultures 2 - negative 05/08 - sputum - negative 05/08 - urine - negative 05/08 - blood cultures - negative 05/13 - blood cx negative 05/13 - urine cx negative 05/16 - sputum Enterobacter aerogenes 05/16 - urine neg 131 - blood cultures neg 05/18 - blood cultures- negative 05/19 - bronchoscopy - Yeast 05/27 Sputum Enterobacter 06/02, 06/06. 06/10 Sputum: Enterobacter 06/06 Urine cx: C. Glabr[place] MSK: History of spinal stenosis/laminectomy/left total knee replacement and left ring finger amputation PT evaluate and treat Access - Peripheral IV;'s Prophylaxis -GI - Protonix 40mg daily -DVT -Heparin 5000 SQ BID, SCD on L leg -06/05 Doppler US LE: No DVT -06/05 Doppler US UE: Right cephalic and left basilic occlusive thrombus- on SQ heparin per Heme. -05/25 Doppler US UE: Occlusive thrombus in the right distal cephalic vein. Nonocclusive thrombus in the left mid and distal basilic veins. Kyree Thomas MD Jun 17, 2016 16:35
[2016-06-17] MEDS: ACETAMINOPHEN 650 MG/20.3 ML UDC TUBE PRN (16:49)
[2016-06-18] VITALS (14 sets, daily range): BP systolic 128–149; BP diastolic 70–87; PULSE 72–100; RESP 14–22; TEMP 97–98.9; O2SAT 95–99
[2016-06-18] MEDS: INSULIN NovoLIN REGULAR SUPPLEMENTAL SCALE SQ SCH ×3 (01:30→14:18)
[2016-06-18] MEDS: CHLORHEXIDINE GLUCONATE 2 % 1 PACK (2 CLOTHS) TOP SCH (01:45)
[2016-06-18] MEDS: hydrALAZINE HCL 25 MG TAB PO SCH ×2 (05:44→14:03)
[2016-06-18] MEDS: LABETALOL HCL 200 MG TAB PO SCH ×2 (05:44→14:03)
--- NOTE | 2016-06-18 08:49 | HHI.PR ---
Subjective Remarks Follow up anemia, respiratory failure. Per nursing, the patient was hyperthermic yesterday due to malfunction of his bed. The mattress was producing heat and the patient's temperature increased to 100.6 axillary. He was cooled using ice packs and the bed was changed. Temp has remained normal. No other events reported. Objective Vitals Vital Signs Date Time Temp Pulse Resp B/P Pulse Ox O2 Delivery O2 Flow Rate FiO2 06/18/16 06:00 100 06/18/16 04:00 98.8 96 16 143/75 99 06/18/16 04:00 96 06/18/16 02:00 93 06/18/16 00:00 79 06/18/16 00:00 98.9 79 22 129/70 95 06/17/16 22:00 80 06/17/16 20:39 98 T-piece 5.00 28 06/17/16 20:00 99.2 87 27 128/74 96 06/17/16 20:00 87 06/17/16 19:00 96 T-Piece 28 06/17/16 18:00 101 06/17/16 17:49 24 06/17/16 16:00 106 06/17/16 16:00 100.6 86 29 128/79 94 06/17/16 14:00 94 06/17/16 12:00 99.4 106 27 132/81 96 06/17/16 10:00 111 I/O 06/17/16 06/17/16 06/17/16 06/18/16 06/18/16 06/18/16 07:00 15:00 23:00 07:00 15:00 23:00 Intake Total 304 ml 476 ml 416 ml 468 ml Output Total 50 ml 4100 ml 30 ml 75 ml Balance 254 ml -3624 ml 386 ml 393 ml Intake Oral 0 ml IV Total 25 ml 47 ml 29 ml 34 ml Tube Feeding 279 ml 429 ml 327 ml 374 ml Other 60 ml 60 ml Output Urine Total 50 ml 100 ml 30 ml 75 ml Hemodialysis 4000 ml # Bowel Movements 0 2 0 Result Diagram: 06/16/168 06/16/16437 Imaging Last Impressions Chest X-Ray 06/13/16 0600 Signed Impressions: Service Date/Time: Monday, June 13, 2016 05:00 - CONCLUSION: 1. Support apparatus unchanged. Minimal basilar dependent opacity in the lungs. Marek Bowers MD Chest CT 06/10/16 Signed Impressions: Service Date/Time: Friday, June 10, 2016 16:11 - CONCLUSION: 1. Patchy infiltrates right upper lobe, left upper lobe and superior segments of the lower lobes. 2. Thickening of the right major fissure. 3. Bilateral gynecomastia. 4. Coronary artery calcifications. Carlitos Aguirre MD Liver Ultrasound 06/06/16 Signed Impressions: Service Date/Time: Monday, June 06, 2016 14:18 - CONCLUSION: 1. Liver slightly echogenic which can be seen with fatty infiltration. 2. Spleen not visualized. 3. There may be some minimal gallbladder sludge but no cholelithiasis or wall thickening. Carlitos Aguirre MD Upper Extremity Ultrasound 06/05/16 Signed Impressions: Service Date/Time: Sunday, June 05, 2016 11:01 - CONCLUSION: Occlusive thrombus right cephalic vein and left basilic vein Shahid Sin MD Lower Extremity Ultrasound 06/05/16 Signed Impressions: Service Date/Time: Sunday, June 05, 2016 16:05 - CONCLUSION: Normal examination. No evidence of DVT Shahid Sin MD Gastrostomy Tube Placement 06/02/16 Signed Impressions: Service Date/Time: Thursday, June 02, 2016 12:31 - CONCLUSION: Uncomplicated gastrostomy tube placement as above. Isidro Flor MD Catheter Placement X-Ray 06/02/16 Signed Impressions: Service Date/Time: Thursday, June 02, 2016 12:31 - CONCLUSION: 1. Uncomplicated line placement as above. 2. Patient currently has a modified left subclavian PermCath catheter that is being utilized as a temporary access. Isidro Flor MD Brain MRI 05/27/16 0000 Signed Impressions: Service Date/Time: Friday, May 27, 2016 12:17 - CONCLUSION: Multifocal bilateral T2 signal abnormalities in restricted diffusion concerning for bilateral lacunar infarcts. Carlitos Aguirre MD Head CT 05/16/16 0000 Signed Impressions: Service Date/Time: Monday, May 16, 2016 08:30 - CONCLUSION: Suspected bilateral basal ganglia calcifications are unchanged. No evidence of hemorrhage, edema, mass or mass effect. Stephen Quintanilla MD Abdomen/Pelvis CT 05/16/16 0000 Signed Impressions: Service Date/Time: Monday, May 16, 2016 08:39 - CONCLUSION: There are large areas of hemorrhage including the left retroperitoneum and psoas muscle, within the mesentery and a smaller area in the right psoas muscle. They don't appear to be related to the abdominal aorta or the internal iliac arteries. There is a small focal collection hemorrhage adjacent to the left external iliac artery as it enters the pelvis, but I don't believe that is related to the large amount of hemorrhage seen elsewhere. The areas of hemorrhage are large and multi-focal. Stephne Quintanilla MD CT Angiography 05/06/16 0000 Signed Impressions: Service Date/Time: Saturday, May 07, 2016 00:04 - CONCLUSION: 1. Lobar consolidation bilaterally in the lower lobes. 2. Negative for pulmonary embolism. Michael Colbert MD Objective Remarks General: No acute distress. Trach, T-piece. Heart: Regular rate and rhythm. No murmur. Lungs: Coarse breath sounds. Breathing is nonlabored. Abdomen: Soft, nontender, nondistended. Extremities: No lower extremity edema. SCDs. Psych: Encephalopathic. Does not respond to verbal stimuli. 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 Status: Chronic (4) Retroperitoneal bleed ICD Code: R58 Status: Resolved (5) Acute renal failure ICD Code: N17.9 Status: Acute (6) Chronic diastolic congestive heart failure ICD Code: I50.32 Status: Chronic (7) Elevated LFTs ICD Code: R94.5 Status: Acute (8) Basal ganglia infarction ICD Code: I63.9 Status: Acute (9) Nonischemic cardiomyopathy ICD Code: I42.8 Status: Chronic (10) Hypertension ICD Code: I10 Status: Chronic (11) Aspiration pneumonia ICD Code: J69.0 Status: Acute (12) Acute blood loss anemia ICD Code: D62 Status: Acute (13) Acute thrombosis of left basilic vein ICD Code: I82.612 Status: Acute (14) Acute thrombosis of right cephalic vein ICD Code: I82.611 Status: Acute Assessment and Plan 1. Hemorrhagic shock status post large retroperitoneal bleed, acute blood loss anemia: Bleeding and shock have resolved. Monitor H&H. 2. Bilateral basal ganglia infarcts, encephalopathy: Appreciate neurology recommendations. 3. Aberrant RCA: Appreciate cardiology and cardiothoracic surgery recommendations. 4. Chronic diastolic congestive heart failure, coronary artery disease, nonischemic cardiomyopathy: Continue beta daniel, aspirin. Statin on hold. 5. Hypertension: Continue labetalol, hydralazine, Cardizem. 6. Acute hypoxemic respiratory failure: Patient was extubated on 05/13/16 and reintubated 05/16/16. Tracheostomy placed 06/01/16. Now off ventilator, tolerating T-piece. Trach management per pulmonology. 7. Aspiration pneumonia: Completed cefepime, Levaquin on 06/16/16. Appreciate infectious disease recommendations. 8. Acute renal failure secondary to ATN: Patient is oliguric. Continue hemodialysis per nephrology. 9. Diabetes mellitus type 2: Monitor Accu-Cheks and cover with sliding scale insulin. Continue Levemir. 10. Right cephalic vein superficial thrombus, left basilic vein thrombus, posterior tibial thrombus: Appreciate hematology recommendations. Continue aspirin. On prophylactic dose heparin, 5000 units subcutaneous twice a day. 11. GI prophylaxis: Protonix. 12. FEN: Continue tube feeds, Nepro at 50 mL per hour. Problem Qualifiers (1) Diabetes mellitus: Qualified Code: E13.8 - Diabetes mellitus of other type with complication, unspecified alf insulin use status (2) CAD (coronary artery disease): Qualified Code: I25.10 - Coronary artery disease, angina presence unspecified, unspecified vessel or lesion type, unspecified whether [place] or transplanted heart (3) Acute renal failure: Qualified Code: N17.0 - Acute renal failure with tubular necrosis Gilmar Alejandre MD Jun 18, 2016 08:49
[2016-06-18] MEDS: ASPIRIN 81 MG CHEW TAB CHEW SCH (09:15)
[2016-06-18] MEDS: FLUCONAZOLE 100 MG TAB PO SCH (09:15)
[2016-06-18] MEDS: DILTIAZEM HCL 60 MG TAB PO SCH ×3 (09:15→17:42)
[2016-06-18] MEDS: HEPARIN SODIUM - SQ 10,000 UNITS/ML VIAL SQ SCH (09:16)
[2016-06-18] MEDS: INSULIN DETEMIR 100 UNITS/ML VIAL SQ SCH (09:16)
[2016-06-18] MEDS: PANTOPRAZOLE SODIUM 40 MG VIAL IV PUSH SCH (09:16)
[2016-06-18] MEDS: SODIUM CHLORIDE 0.9% FLUSH 5 ML FLUSH IV FLUSH SCH (09:16)
[2016-06-18] MEDS: ARTIFICIAL TEARS OPTH SOLN 15 ML BTL EACH EYE SCH ×3 (09:17→17:43)
[2016-06-18] MEDS: CHLORHEXIDINE 0.12% (ORAL KIT) 15 ML CUP MT SCH (09:17)
--- NOTE | 2016-06-18 13:44 | HHI.NPPN ---
Subjective History of Present Illness 61 year old with ARF, CHF, Respiratory failure Additional Remarks Patient s/p Trach and off sedation, remain unresponsive, now on HD. Objective Data Data 06/17/16 06/18/16 19:00 07:00 Intake Total 476 ml 884 ml Output Total 4100 ml 105 ml Balance -3624 ml 779 ml Intake Oral 0 ml IV Total 47 ml 63 ml Tube Feeding 429 ml 701 ml Other 120 ml Output Urine Total 100 ml 105 ml Hemodialysis 4000 ml # Bowel Movements 0 2 Vital Signs Date Time Temp Pulse Resp B/P Pulse Ox O2 Delivery O2 Flow Rate FiO2 06/18/16 10:00 83 06/18/16 08:29 97 T-piece 28 06/18/16 08:00 97.5 97 19 141/87 99 06/18/16 08:00 97 06/18/16 07:00 99 T-Piece 28 06/18/16 06:00 100 06/18/16 04:00 98.8 96 16 143/75 99 06/18/16 04:00 96 06/18/16 02:00 93 06/18/16 00:00 79 06/18/16 00:00 98.9 79 22 129/70 95 06/17/16 22:00 80 06/17/16 20:39 98 T-piece 5.00 28 06/17/16 20:00 99.2 87 27 128/74 96 06/17/16 20:00 87 06/17/16 19:00 96 T-Piece 28 06/17/16 18:00 101 06/17/16 17:49 24 06/17/16 16:00 106 06/17/16 16:00 100.6 86 29 128/79 94 06/17/16 14:00 94 -: 06/16/16 0438 06/16/16 0438 Physical Exam General Appearance: Obese Neck Neck Exam: Neck Supple Pulmonary Resp Exam: Rhonchi, Decreased Bases, Diminished Breath Sounds, Poor Inspiratory Effort Cardiology CV Exam: Tachycardia Gastrointestinal/Abdomen GI Exam: Soft, Non-Tender, Distended Extremeties Extremities Exam: Moderate Edema, Pitting Edema, Dependent Edema Neurologic Neuro Exam: Unresponsive Assessment/Plan Problem List: (1) Acute renal failure Plan: Patient has oliguric acute renal failure and remains essentially oliguric. Continue with HD BUN and Creatinine remains high uf 4 L yesterday multiple CVA Anoxic Encephalopathy febrile 100.6 procalcitonin high fluconazole added S/P Trach. 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 Plan: Cardiology following (4) Acute hypoxemic respiratory failure Plan: Off ventilator (5) Hypertensive emergency Plan: BP improved (6) Diabetes mellitus Plan: Continue monitor blood glucose (7) CAD (coronary artery disease) Plan: Presented with STEMI, follow with cardiology (8) Subsequent ST elevation (STEMI) myocardial infarction of anterior wall Plan: Planned transfer to when stable. No intervention performed here. 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
[2016-06-18] MEDS: RESP: ALBUTEROL 2.5 MG/IPRATROPIUM 0.5 MG NEB (PRN) INH (20:54)
[2016-06-19] VITALS (14 sets, daily range): BP systolic 106–140; BP diastolic 56–81; PULSE 73–80; RESP 16–46; TEMP 97.8–99; O2SAT 95–100
[2016-06-19] MEDS: DILTIAZEM HCL 60 MG TAB PO SCH ×5 (00:12→22:00)
[2016-06-19] MEDS: HEPARIN SODIUM - SQ 10,000 UNITS/ML VIAL SQ SCH ×3 (00:12→22:00)
[2016-06-19] MEDS: LABETALOL HCL 200 MG TAB PO SCH ×4 (00:12→22:00)
[2016-06-19] MEDS: INSULIN DETEMIR 100 UNITS/ML VIAL SQ SCH ×3 (00:12→22:00)
[2016-06-19] MEDS: CHLORHEXIDINE 0.12% (ORAL KIT) 15 ML CUP MT SCH ×3 (00:13→22:01)
[2016-06-19] MEDS: SODIUM CHLORIDE 0.9% FLUSH 5 ML FLUSH IV FLUSH SCH ×3 (00:13→22:00)
[2016-06-19] MEDS: hydrALAZINE HCL 25 MG TAB PO SCH ×4 (00:13→22:00)
[2016-06-19] MEDS: INSULIN NovoLIN REGULAR SUPPLEMENTAL SCALE SQ SCH ×4 (00:16→19:30)
[2016-06-19] MEDS: RESP: ALBUTEROL 2.5 MG/IPRATROPIUM 0.5 MG NEB (PRN) INH ×2 (03:12→07:52)
[2016-06-19] MEDS: CHLORHEXIDINE GLUCONATE 2 % 1 PACK (2 CLOTHS) TOP SCH (04:00)
[2016-06-19 06:42] LABS: HEMATOCRIT 33.6 % (39.0-51.0); MEAN CELL VOLUME 88.6 FL (80.0-100.0); MEAN CORPUSCULAR HEMOGLOBIN 28.7 PG (27.0-34.0); MEAN CORPUSCULAR HGB CONC 32.4 % (32.0-36.0); PLATELET COUNT 454 TH/MM3 (150-450); RED BLOOD COUNT 3.79 MIL/MM3 (4.50-5.90); RED CELL DISTRIBUTION WIDTH 16.3 % (11.6-17.2); REVIEW FLAG FINAL
[2016-06-19] MEDS: FLUCONAZOLE 100 MG TAB PO SCH (08:28)
[2016-06-19] MEDS: ASPIRIN 81 MG CHEW TAB CHEW SCH (08:28)
[2016-06-19] MEDS: ARTIFICIAL TEARS OPTH SOLN 15 ML BTL EACH EYE SCH ×3 (08:29→17:37)
[2016-06-19] MEDS: PANTOPRAZOLE SODIUM 40 MG VIAL IV PUSH SCH (08:30)
--- NOTE | 2016-06-19 09:04 | HHI.PR ---
Subjective Remarks Follow up encephalopathy, anemia, respiratory. Patient does occasionally open his eyes, but does not follow commands and does not track. No events reported overnight. Objective Vitals Vital Signs Date Time Temp Pulse Resp B/P Pulse Ox O2 Delivery O2 Flow Rate FiO2 06/19/16 07:54 98 T-piece 5.00 28 06/19/16 06:00 77 06/19/16 04:00 98.6 75 16 106/68 98 06/19/16 04:00 75 06/19/16 02:00 73 06/19/16 00:00 98.6 80 17 136/56 99 06/19/16 00:00 80 06/18/16 22:00 75 06/18/16 20:51 98 T-piece 4.00 28 06/18/16 20:00 80 06/18/16 20:00 98.4 80 15 140/82 97 06/18/16 19:00 97 T-Piece 28 06/18/16 18:00 75 06/18/16 16:00 84 06/18/16 16:00 97.0 84 14 149/85 98 06/18/16 14:00 91 06/18/16 12:00 72 06/18/16 12:00 97.2 72 15 128/76 98 06/18/16 10:00 83 I/O 06/18/16 06/18/16 06/18/16 06/19/16 06/19/16 06/19/16 07:00 15:00 23:00 07:00 15:00 23:00 Intake Total 468 ml 690 ml 692 ml Output Total 75 ml 50 ml 150 ml Balance 393 ml 640 ml 542 ml IV Total 34 ml 57 ml 65 ml Tube Feeding 374 ml 513 ml 627 ml Other 60 ml 120 ml Output Urine Total 75 ml 50 ml 150 ml # Bowel Movements 0 1 0 Result Diagram: 06/19/16 0519 06/16/16 0438 Imaging Last Impressions Chest X-Ray 06/13/16 0600 Signed Impressions: Service Date/Time: Monday, June 13, 2016 05:00 - CONCLUSION: 1. Support apparatus unchanged. Minimal basilar dependent opacity in the lungs. Marek Bowers MD Chest CT 06/10/16 0000 Signed Impressions: Service Date/Time: Friday, June 10, 2016 16:11 - CONCLUSION: 1. Patchy infiltrates right upper lobe, left upper lobe and superior segments of the lower lobes. 2. Thickening of the right major fissure. 3. Bilateral gynecomastia. 4. Coronary artery calcifications. Carlitos Aguirre MD Liver Ultrasound 06/06/16 Signed Impressions: Service Date/Time: Monday, June 06, 2016 14:18 - CONCLUSION: 1. Liver slightly echogenic which can be seen with fatty infiltration. 2. Spleen not visualized. 3. There may be some minimal gallbladder sludge but no cholelithiasis or wall thickening. Carlitos Aguirre MD Upper Extremity Ultrasound 06/05/16 Signed Impressions: Service Date/Time: Sunday, June 05, 2016 11:01 - CONCLUSION: Occlusive thrombus right cephalic vein and left basilic vein Shahid Sin MD Lower Extremity Ultrasound 06/05/16 Signed Impressions: Service Date/Time: Sunday, June 05, 2016 16:05 - CONCLUSION: Normal examination. No evidence of DVT Shahid Sin MD Gastrostomy Tube Placement 06/02/16 Signed Impressions: Service Date/Time: Thursday, June 02, 2016 12:31 - CONCLUSION: Uncomplicated gastrostomy tube placement as above. Isidro Flor MD Catheter Placement X-Ray 06/02/16 Signed Impressions: Service Date/Time: Thursday, June 02, 2016 12:31 - CONCLUSION: 1. Uncomplicated line placement as above. 2. Patient currently has a modified left subclavian PermCath catheter that is being utilized as a temporary access. Isidro Flor MD Brain MRI 05/27/16 Signed Impressions: Service Date/Time: Friday, May 27, 2016 12:17 - CONCLUSION: Multifocal bilateral T2 signal abnormalities in restricted diffusion concerning for bilateral lacunar infarcts. Carlitos Aguirre MD Head CT 05/16/16 0000 Signed Impressions: Service Date/Time: Monday, May 16, 2016 08:30 - CONCLUSION: Suspected bilateral basal ganglia calcifications are unchanged. No evidence of hemorrhage, edema, mass or mass effect. Stephen Quintanilla MD Abdomen/Pelvis CT 05/16/16 0000 Signed Impressions: Service Date/Time: Monday, May 16, 2016 08:39 - CONCLUSION: There are large areas of hemorrhage including the left retroperitoneum and psoas muscle, within the mesentery and a smaller area in the right psoas muscle. They don't appear to be related to the abdominal aorta or the internal iliac arteries. There is a small focal collection hemorrhage adjacent to the left external iliac artery as it enters the pelvis, but I don't believe that is related to the large amount of hemorrhage seen elsewhere. The areas of hemorrhage are large and multi-focal. Stephen Quintanilla MD CT Angiography 05/06/16 0000 Signed Impressions: Service Date/Time: Saturday, May 07, 2016 00:04 - CONCLUSION: 1. Lobar consolidation bilaterally in the lower lobes. 2. Negative for pulmonary embolism. Michael Colbert MD Objective Remarks General: No acute distress. Trach, T-piece. Heart: Regular rate and rhythm. No murmur. Lungs: Coarse breath sounds. Breathing is nonlabored. Abdomen: Soft, nontender, nondistended. Extremities: No lower extremity edema. SCDs. Psych: Encephalopathic. Occasionally opens eyes, but does not track or follow commands. 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 Status: Chronic (4) Retroperitoneal bleed ICD Code: R58 Status: Resolved (5) Acute renal failure ICD Code: N17.9 Status: Acute (6) Chronic diastolic congestive heart failure ICD Code: I50.32 Status: Chronic (7) Elevated LFTs ICD Code: R94.5 Status: Acute (8) Basal ganglia infarction ICD Code: I63.9 Status: Acute (9) Nonischemic cardiomyopathy ICD Code: I42.8 Status: Chronic (10) Hypertension ICD Code: I10 Status: Chronic (11) Aspiration pneumonia ICD Code: J69.0 Status: Acute (12) Acute blood loss anemia ICD Code: D62 Status: Acute (13) Acute thrombosis of left basilic vein ICD Code: I82.612 Status: Acute (14) Acute thrombosis of right cephalic vein ICD Code: I82.611 Status: Acute Assessment and Plan 1. Hemorrhagic shock status post large retroperitoneal bleed, acute blood loss anemia: Bleeding and shock have resolved. Monitor H&H. 2. Bilateral basal ganglia infarcts, encephalopathy: Appreciate neurology recommendations. Patient is does not follow commands or track. Neurologic status is unchanged. Consult Palliative care for assistance with clarification of goals of care. 3. Aberrant RCA: Appreciate cardiology and cardiothoracic surgery recommendations. 4. Chronic diastolic congestive heart failure, coronary artery disease, nonischemic cardiomyopathy: Continue beta daniel, aspirin. Statin on hold. 5. Hypertension: Continue labetalol, hydralazine, Cardizem. 6. Acute hypoxemic respiratory failure: Patient was extubated on 05/13/16 and reintubated 05/16/16. Tracheostomy placed 06/01/16. Now off ventilator, tolerating T-piece. Trach management per pulmonology. 7. Aspiration pneumonia: Completed cefepime, Levaquin on 06/16/16. Appreciate infectious disease recommendations. 8. Acute renal failure secondary to ATN: Patient is oliguric. Continue hemodialysis per nephrology. 9. Diabetes mellitus type 2: Monitor Accu-Cheks and cover with sliding scale insulin. Continue Levemir. 10. Right cephalic vein superficial thrombus, left basilic vein thrombus, posterior tibial thrombus: Appreciate hematology recommendations. Continue aspirin. On prophylactic dose heparin, 5000 units subcutaneous twice a day. 11. GI prophylaxis: Protonix. 12. FEN: Continue tube feeds, Nepro at 50 mL per hour. Problem Qualifiers (1) Diabetes mellitus: Qualified Code: E13.8 - Diabetes mellitus of other type with complication, unspecified snf insulin use status (2) CAD (coronary artery disease): Qualified Code: I25.10 - Coronary artery disease, angina presence unspecified, unspecified vessel or lesion type, unspecified whether [place] or transplanted heart (3) Acute renal failure: Qualified Code: N17.0 - Acute renal failure with tubular necrosis Gilmar Alejandre MD Jun 19, 2016 09:04
--- NOTE | 2016-06-19 13:03 | HHI.NPPN ---
Subjective History of Present Illness 61 year old with ARF, CHF, Respiratory failure Additional Remarks Patient s/p Trach and off sedation, remain unresponsive, now on HD. Objective Data Data 06/18/16 06/19/16 19:00 07:00 Intake Total 690 ml 692 ml Output Total 50 ml 150 ml Balance 640 ml 542 ml IV Total 57 ml 65 ml Tube Feeding 513 ml 627 ml Other 120 ml Output Urine Total 50 ml 150 ml # Bowel Movements 1 0 Vital Signs Date Time Temp Pulse Resp B/P Pulse Ox O2 Delivery O2 Flow Rate FiO2 06/19/16 12:03 40 06/19/16 12:00 77 06/19/16 12:00 98.2 77 42 139/81 96 06/19/16 10:00 76 06/19/16 08:00 78 06/19/16 08:00 98.2 78 37 140/80 100 06/19/16 07:54 98 T-piece 5.00 28 06/19/16 07:00 87 T-Piece 28 06/19/16 06:00 77 06/19/16 04:00 98.6 75 16 106/68 98 06/19/16 04:00 75 06/19/16 02:00 73 06/19/16 00:00 98.6 80 17 136/56 99 06/19/16 00:00 80 06/18/16 22:00 75 06/18/16 20:51 98 T-piece 4.00 28 06/18/16 20:00 80 06/18/16 20:00 98.4 80 15 140/82 97 06/18/16 19:00 97 T-Piece 28 06/18/16 18:00 75 06/18/16 16:00 84 06/18/16 16:00 97.0 84 14 149/85 98 06/18/16 14:00 91 -: 06/19/16 0519 06/16/16 0438 Physical Exam General Appearance: Obese Neck Neck Exam: Neck Supple Pulmonary Resp Exam: Rhonchi, Decreased Bases, Diminished Breath Sounds, Poor Inspiratory Effort Cardiology CV Exam: Tachycardia Gastrointestinal/Abdomen GI Exam: Soft, Non-Tender, Distended Extremeties Extremities Exam: Moderate Edema, Pitting Edema, Dependent Edema Neurologic Neuro Exam: Unresponsive Assessment/Plan Problem List: (1) Acute renal failure Plan: Patient has oliguric acute renal failure and remains essentially oliguric. Continue with HD BUN and Creatinine remains high uf 4 L Sunday multiple CVA Anoxic Encephalopathy afebrile fluconazole added S/P Trach. 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 Plan: Cardiology following (4) Acute hypoxemic respiratory failure Plan: Off ventilator (5) Hypertensive emergency Plan: BP improved (6) Diabetes mellitus Plan: Continue monitor blood glucose (7) CAD (coronary artery disease) Plan: Presented with STEMI, follow with cardiology (8) Subsequent ST elevation (STEMI) myocardial infarction of anterior wall Plan: Planned transfer to [facility] when stable. No intervention performed here. Problem Qualifiers (1) Acute renal failure: Qualified Code: N17.0 - Acute renal failure with tubular necrosis (2) Diabetes mellitus: Qualified Code: E13.8 - Diabetes mellitus of other type with complication, unspecified fpc insulin use status (3) CAD (coronary artery disease): Qualified Code: I25.10 - Coronary artery disease, angina presence unspecified, unspecified vessel or lesion type, unspecified whether [place] or transplanted heart Linda Mcintosh MD Jun 19, 2016 13:03
--- NOTE | 2016-06-19 16:40 | HHI.PR ---
Subjective Remarks no change OPENS EYES NODS YES , NO Objective GENERAL: SKIN: Warm and dry. HEAD: Atraumatic. Normocephalic. EYES: Pupils equal and round. No scleral icterus. No injection or drainage. ENT: No nasal bleeding or discharge. Mucous membranes pink and moist. NECK: Trachea midline. No JVD. CARDIOVASCULAR: Regular rate and rhythm. RESPIRATORY: No accessory muscle use. Clear to auscultation. Breath sounds equal bilaterally. GASTROINTESTINAL: Abdomen soft, non-tender, nondistended. Hepatic and splenic margins not palpable. MUSCULOSKELETAL: Extremities without clubbing, cyanosis, or edema. No obvious deformities. NEUROLOGICAL: Awake and alert. No obvious cranial nerve deficits. Motor grossly within normal limits. Five out of 5 muscle strength in the arms and legs. Normal speech. PSYCHIATRIC: Appropriate mood and affect; insight and judgment normal. Vital Signs Date Time Temp Pulse Resp B/P Pulse Ox O2 Delivery O2 Flow Rate FiO2 06/19/16 14:00 75 06/19/16 12:03 40 06/19/16 12:00 77 06/19/16 12:00 98.2 77 42 139/81 96 06/19/16 10:00 76 06/19/16 08:00 78 06/19/16 08:00 98.2 78 37 140/80 100 06/19/16 07:54 98 T-piece 5.00 06/19/16 07:00 87 T-Piece 28 06/19/16 06:00 77 06/19/16 04:00 98.6 75 16 106/68 98 06/19/16 04:00 75 06/19/16 02:00 73 06/19/16 00:00 98.6 80 17 136/56 99 06/19/16 00:00 80 06/18/16 22:00 75 06/18/16 20:51 98 T-piece 4.00 28 06/18/16 20:00 80 06/18/16 20:00 98.4 80 15 140/82 97 06/18/16 19:00 97 T-Piece 06/18/16 18:00 75 I/O 06/18/16 06/18/16 06/18/16 06/19/16 06/19/16 06/19/16 07:00 15:00 23:00 07:00 15:00 23:00 Intake Total 468 ml 690 ml 692 ml 568 ml Output Total 75 ml 50 ml 150 ml 100 ml Balance 393 ml 640 ml 542 ml 468 ml IV Total 34 ml 57 ml 65 ml 44 ml Tube Feeding 374 ml 513 ml 627 ml 424 ml Tube Irrigant 100 ml Other 60 ml 120 ml Output Urine Total 75 ml 50 ml 150 ml 100 ml Tube Feeding Residual Discard 0 ml # Bowel Movements 0 1 0 1 Result Diagram: 06/19/16 0519 06/16/16 0438 Objective Remarks GENERAL: SKIN: Warm and dry. HEAD: Atraumatic. Normocephalic. EYES: Pupils equal and round. No scleral icterus. No injection or drainage. ENT: No nasal bleeding or discharge. Mucous membranes pink and moist. NECK: Trachea midline. No JVD. tracheostomy in place CARDIOVASCULAR: Regular rate and rhythm. RESPIRATORY: No accessory muscle use. Clear to auscultation. Breath sounds equal bilaterally. GASTROINTESTINAL: Abdomen soft, non-tender, nondistended. Hepatic and splenic margins not palpable. MUSCULOSKELETAL: Extremities without clubbing, cyanosis, or edema. No obvious deformities. NEUROLOGICAL: Awake and alert. No obvious cranial nerve deficits. Motor grossly within normal limits. Five out of 5 muscle strength in the arms and legs. Normal speech. PSYCHIATRIC: Appropriate mood and affect; insight and judgment normal. Assessment and Plan Assessment and Plan respiratory failure s/p Tracheostomy PLAN 02 as needed pulmonary toilet outlook Kj Escobar MD Jun 19, 2016 16:40
[2016-06-20] VITALS (14 sets, daily range): BP systolic 97–148; BP diastolic 63–78; PULSE 72–100; RESP 18–26; TEMP 97.9–98.9; O2SAT 95–99
[2016-06-20] MEDS: INSULIN NovoLIN REGULAR SUPPLEMENTAL SCALE SQ SCH ×4 (01:30→18:49)
[2016-06-20] MEDS: CHLORHEXIDINE GLUCONATE 2 % 1 PACK (2 CLOTHS) TOP SCH (04:00)
[2016-06-20] MEDS: hydrALAZINE HCL 25 MG TAB PO SCH ×3 (06:19→21:19)
[2016-06-20] MEDS: LABETALOL HCL 200 MG TAB PO SCH ×3 (06:19→21:19)
[2016-06-20 07:05] LABS: AUTOMATED NEUTROPHIL # 8.5 TH/MM3 (1.8-7.7); BASOPHIL # 0.1 TH/MM3 (0-0.2); BASOPHIL % 0.6 % (0.0-2.0); EOSINOPHIL # 0.2 TH/MM3 (0-0.4); EOSINOPHIL % 1.6 % (0.0-4.0); HEMATOCRIT 35.2 % (39.0-51.0); HEMO FLAGS DIFF FINAL; LYMPH % 10.2 % (9.0-44.0); LYMPHOCYTE # 1.1 TH/MM3 (1.0-4.8); MEAN CELL VOLUME 89.9 FL (80.0-100.0); MEAN CORPUSCULAR HEMOGLOBIN 29.2 PG (27.0-34.0); MEAN CORPUSCULAR HGB CONC 32.5 % (32.0-36.0); MONO % 6.5 % (0.0-8.0); NEUT % 81.1 % (16.0-70.0); PLATELET COUNT 380 TH/MM3 (150-450); RED BLOOD COUNT 3.91 MIL/MM3 (4.50-5.90); RED CELL DISTRIBUTION WIDTH 16.2 % (11.6-17.2); WHITE BLOOD COUNT 10.4 TH/MM3 (4.0-11.0)
[2016-06-20 07:20] LABS: PROTHROMBIN TIME - PATIENT 11.3 SEC (9.8-11.6)
[2016-06-20 07:38] LABS: ALT (GPT) 73 U/L (12-78); ANION GAP 13 MEQ/L (5-15); AST (GOT) 39 U/L (15-37); BICARBONATE 29.8 MEQ/L (21.0-32.0); BLOOD UREA NITROGEN 109 MG/DL (7-18); CHLORIDE 93 MEQ/L (98-107); GLOMERULAR FILTRATION RATE 13 ML/MIN (>89); MAGNESIUM 2.6 MG/DL (1.5-2.5); POTASSIUM 4.1 MEQ/L (3.5-5.1); SODIUM (NA) 136 MEQ/L (136-145)
[2016-06-20 07:40] LABS: ALKALINE PHOSPHATASE 185 U/L (45-117); TOTAL BILIRUBIN ADULT 0.6 MG/DL (0.2-1.0)
[2016-06-20] MEDS: SODIUM CHLOR 0.9% 1000 ML INJ 1,000 ML IV PRN (07:44)
[2016-06-20] MEDS: GENTAMICIN SULFATE (DIALYSIS USE ONLY) 20 MG/2 ML VIAL IV PRN (07:45)
[2016-06-20] MEDS: EPOETIN ALFA 10,000 UNITS/ML VIAL IV PRN (07:45)
[2016-06-20] MEDS: HEPARIN SODIUM - IV 10,000 UNITS/10 ML VIAL PRN (07:45)
--- NOTE | 2016-06-20 09:05 | HHI.NPPN ---
Subjective History of Present Illness 61 year old with ARF, CHF, Respiratory failure Additional Remarks Patient s/p Trach and off sedation, remain unresponsive, now on HD. Objective Data Data 06/19/16 06/20/16 19:00 07:00 Intake Total 568 ml 1114 ml Output Total 100 ml 175 ml Balance 468 ml 939 ml IV Total 44 ml 80 ml Tube Feeding 424 ml 794 ml Tube Irrigant 100 ml 240 ml Output Urine Total 100 ml 175 ml Tube Feeding Residual Discard 0 ml # Bowel Movements 1 1 Vital Signs Date Time Temp Pulse Resp B/P Pulse Ox O2 Delivery O2 Flow Rate FiO2 06/20/16 08:07 98 T-piece 28.00 06/20/16 07:15 96 T-Piece 28 06/20/16 06:00 79 06/20/16 04:00 76 06/20/16 04:00 98.1 76 20 148/76 96 06/20/16 02:00 72 06/20/16 00:00 73 06/20/16 00:00 98.3 73 18 122/68 95 06/19/16 22:00 79 06/19/16 20:39 98 T-piece 28 06/19/16 20:00 99.0 75 20 124/70 95 06/19/16 20:00 75 06/19/16 19:00 95 T-Piece 28 06/19/16 18:00 78 06/19/16 16:00 97.8 75 46 120/68 96 06/19/16 16:00 75 06/19/16 14:00 75 06/19/16 12:03 40 06/19/16 12:00 77 06/19/16 12:00 98.2 77 42 139/81 96 06/19/16 10:00 76 -: 06/20/16 0621 06/20/16 0621 Physical Exam General Appearance: Obese Neck Neck Exam: Neck Supple Pulmonary Resp Exam: Rhonchi, Decreased Bases, Diminished Breath Sounds, Poor Inspiratory Effort Cardiology CV Exam: Tachycardia Gastrointestinal/Abdomen GI Exam: Soft, Non-Tender, Distended Extremeties Extremities Exam: Moderate Edema, Pitting Edema, Dependent Edema Neurologic Neuro Exam: Unresponsive Assessment/Plan Problem List: (1) Acute renal failure Plan: Patient has oliguric acute renal failure and remains essentially oliguric. Continue with HD BUN and Creatinine remains high uf 4.2 l yesterday multiple CVA Anoxic Encephalopathy S/P Trach. 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 Plan: Cardiology following (4) Acute hypoxemic respiratory failure Plan: Off ventilator (5) Hypertensive emergency Plan: BP improved (6) Diabetes mellitus Plan: Continue monitor blood glucose (7) CAD (coronary artery disease) Plan: Presented with STEMI, follow with cardiology (8) Subsequent ST elevation (STEMI) myocardial infarction of anterior wall Plan: Planned transfer to when stable. No intervention performed here. Problem Qualifiers (1) Acute renal failure: Qualified Code: N17.0 - Acute renal failure with tubular necrosis (2) Diabetes mellitus: Qualified Code: E13.8 - Diabetes mellitus of other type with complication, unspecified halfway insulin use status (3) CAD (coronary artery disease): Qualified Code: I25.10 - Coronary artery disease, angina presence unspecified, unspecified vessel or lesion type, unspecified whether [place] or transplanted heart Linda Mcintosh MD Jun 20, 2016 09:04
[2016-06-20] MEDS: FLUCONAZOLE 100 MG TAB PO SCH (10:26)
[2016-06-20] MEDS: PANTOPRAZOLE SODIUM 40 MG VIAL IV PUSH SCH (10:26)
[2016-06-20] MEDS: HEPARIN SODIUM - SQ 10,000 UNITS/ML VIAL SQ SCH ×2 (10:26→19:59)
[2016-06-20] MEDS: DILTIAZEM HCL 60 MG TAB PO SCH ×4 (10:26→19:59)
[2016-06-20] MEDS: ASPIRIN 81 MG CHEW TAB CHEW SCH (10:26)
[2016-06-20] MEDS: ARTIFICIAL TEARS OPTH SOLN 15 ML BTL EACH EYE SCH ×3 (10:26→18:00)
[2016-06-20] MEDS: INSULIN DETEMIR 100 UNITS/ML VIAL SQ SCH ×2 (10:27→20:00)
[2016-06-20] MEDS: SODIUM CHLORIDE 0.9% FLUSH 5 ML FLUSH IV FLUSH SCH ×2 (10:27→20:00)
[2016-06-20] MEDS: CHLORHEXIDINE 0.12% (ORAL KIT) 15 ML CUP MT SCH ×2 (10:28→20:00)
--- NOTE | 2016-06-20 10:37 | HHI.PR ---
Subjective Remarks Follow up encephalopathy, anemia, respiratory failure. Per nursing, the patient' s G-tube does not flush, but the tube feeds are going in normally. Unable to give meds through tube. No other events reported. Objective Vitals Vital Signs Date Time Temp Pulse Resp B/P Pulse Ox O2 Delivery O2 Flow Rate FiO2 06/20/16 08:07 98 T-piece 28.00 06/20/16 07:15 96 T-Piece 28 06/20/16 06:00 79 06/20/16 04:00 76 06/20/16 04:00 98.1 76 20 148/76 96 06/20/16 02:00 72 06/20/16 00:00 73 06/20/16 00:00 98.3 73 18 122/68 95 06/19/16 22:00 79 06/19/16 20:39 98 T-piece 28 06/19/16 20:00 99.0 75 20 124/70 95 06/19/16 20:00 75 06/19/16 19:00 95 T-Piece 06/19/16 18:00 78 06/19/16 16:00 97.8 75 46 120/68 96 06/19/16 16:00 75 06/19/16 14:00 75 06/19/16 12:03 40 06/19/16 12:00 77 06/19/16 12:00 98.2 77 42 139/81 96 I/O 06/19/16 06/19/16 06/19/16 06/20/16 06/20/16 06/20/16 07:00 15:00 23:00 07:00 15:00 23:00 Intake Total 692 ml 568 ml 624 ml 490 ml Output Total 150 ml 100 ml 75 ml 100 ml 4000 ml Balance 542 ml 468 ml 549 ml 390 ml -4000 ml IV Total 65 ml 44 ml 44 ml 36 ml Tube Feeding 627 ml 424 ml 460 ml 334 ml Tube Irrigant 100 ml 120 ml 120 ml Output Urine Total 150 ml 100 ml 75 ml 100 ml Tube Feeding Residual Discard 0 ml Hemodialysis 4000 ml # Bowel Movements 0 1 0 1 Result Diagram: 06/20/1662006/20/16620 Imaging Last Impressions Chest X-Ray 06/13/16 06 Signed Impressions: Service Date/Time: Monday, June 13, 2016 05:00 - CONCLUSION: 1. Support apparatus unchanged. Minimal basilar dependent opacity in the lungs. Marek Bowers MD Chest CT 06/10/16 Signed Impressions: Service Date/Time: Friday, June 10, 2016 16:11 - CONCLUSION: 1. Patchy infiltrates right upper lobe, left upper lobe and superior segments of the lower lobes. 2. Thickening of the right major fissure. 3. Bilateral gynecomastia. 4. Coronary artery calcifications. Carlitos Aguirre MD Liver Ultrasound 06/06/16 Signed Impressions: Service Date/Time: Monday, June 06, 2016 14:18 - CONCLUSION: 1. Liver slightly echogenic which can be seen with fatty infiltration. 2. Spleen not visualized. 3. There may be some minimal gallbladder sludge but no cholelithiasis or wall thickening. Carlitos Aguirre MD Upper Extremity Ultrasound 06/05/16 Signed Impressions: Service Date/Time: Sunday, June 05, 2016 11:01 - CONCLUSION: Occlusive thrombus right cephalic vein and left basilic vein Shahid Sin MD Lower Extremity Ultrasound 06/05/16 Signed Impressions: Service Date/Time: Sunday, June 05, 2016 16:05 - CONCLUSION: Normal examination. No evidence of DVT Shahid Sin MD Gastrostomy Tube Placement 06/02/16 Signed Impressions: Service Date/Time: Thursday, June 02, 2016 12:31 - CONCLUSION: Uncomplicated gastrostomy tube placement as above. Isidro Flor MD Catheter Placement X-Ray 06/02/16 Signed Impressions: Service Date/Time: Thursday, June 02, 2016 12:31 - CONCLUSION: 1. Uncomplicated line placement as above. 2. Patient currently has a modified left subclavian PermCath catheter that is being utilized as a temporary access. Isidro Flor MD Brain MRI 05/27/16 Signed Impressions: Service Date/Time: Friday, May 27, 2016 12:17 - CONCLUSION: Multifocal bilateral T2 signal abnormalities in restricted diffusion concerning for bilateral lacunar infarcts. Carlitos Aguirre MD Head CT 05/16/16 Signed Impressions: Service Date/Time: Monday, May 16, 2016 08:30 - CONCLUSION: Suspected bilateral basal ganglia calcifications are unchanged. No evidence of hemorrhage, edema, mass or mass effect. Stephen Quintanilla MD Abdomen/Pelvis CT 05/16/16 0000 Signed Impressions: Service Date/Time: Monday, May 16, 2016 08:39 - CONCLUSION: There are large areas of hemorrhage including the left retroperitoneum and psoas muscle, within the mesentery and a smaller area in the right psoas muscle. They don't appear to be related to the abdominal aorta or the internal iliac arteries. There is a small focal collection hemorrhage adjacent to the left external iliac artery as it enters the pelvis, but I don't believe that is related to the large amount of hemorrhage seen elsewhere. The areas of hemorrhage are large and multi-focal. Stephen Quintanilla MD CT Angiography 05/06/16 0000 Signed Impressions: Service Date/Time: Saturday, May 07, 2016 00:04 - CONCLUSION: 1. Lobar consolidation bilaterally in the lower lobes. 2. Negative for pulmonary embolism. Michael Colbert MD Objective Remarks General: No acute distress. Trach, T-piece. Heart: Regular rate and rhythm. No murmur. Lungs: Coarse breath sounds. Breathing is nonlabored. Abdomen: Soft, nontender, nondistended. Extremities: No lower extremity edema. SCDs. Psych: Encephalopathic. Does not track or follow commands. 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 Status: Chronic (4) Retroperitoneal bleed ICD Code: R58 Status: Resolved (5) Acute renal failure ICD Code: N17.9 Status: Acute (6) Chronic diastolic congestive heart failure ICD Code: I50.32 Status: Chronic (7) Elevated LFTs ICD Code: R94.5 Status: Acute (8) Basal ganglia infarction ICD Code: I63.9 Status: Acute (9) Nonischemic cardiomyopathy ICD Code: I42.8 Status: Chronic (10) Hypertension ICD Code: I10 Status: Chronic (11) Aspiration pneumonia ICD Code: J69.0 Status: Acute (12) Acute blood loss anemia ICD Code: D62 Status: Acute (13) Acute thrombosis of left basilic vein ICD Code: I82.612 Status: Acute (14) Acute thrombosis of right cephalic vein ICD Code: I82.611 Status: Acute Assessment and Plan Reviewed/updated 06/20/16. Continue aggressive care per family. HD per nephrology. Labs are stable. Pulmonology managing trach/respiratory failure. Increase Levemir due to hyperglycemia. Consult interventional radiology to evaluate malfunctioning G-tube. 1. Hemorrhagic shock status post large retroperitoneal bleed, acute blood loss anemia: Bleeding and shock have resolved. Monitor H&H. 2. Bilateral basal ganglia infarcts, encephalopathy: Appreciate neurology recommendations. Patient does not follow commands or track. Neurologic status is unchanged. 3. Aberrant RCA: Appreciate cardiology and cardiothoracic surgery recommendations. 4. Chronic diastolic congestive heart failure, coronary artery disease, nonischemic cardiomyopathy: Continue beta daniel, aspirin. Statin on hold. 5. Hypertension: Continue labetalol, hydralazine, Cardizem. 6. Acute hypoxemic respiratory failure: Patient was extubated on 05/13/16 and reintubated 05/16/16. Tracheostomy placed 06/01/16. Now off ventilator, tolerating T-piece. Trach management per pulmonology. 7. Aspiration pneumonia: Completed cefepime, Levaquin on 06/16/16. Appreciate infectious disease recommendations. 8. Acute renal failure secondary to ATN: Patient is oliguric. Continue hemodialysis per nephrology. 9. Diabetes mellitus type 2: Monitor Accu-Cheks and cover with sliding scale insulin. Continue Levemir. 10. Right cephalic vein superficial thrombus, left basilic vein thrombus, posterior tibial thrombus: Appreciate hematology recommendations. Continue aspirin. On prophylactic dose heparin, 5000 units subcutaneous twice a day. 11. GI prophylaxis: Protonix. 12. FEN: Continue tube feeds, Nepro at 50 mL per hour. 13. Poor prognosis: Patient's family does not want Palliative Care consult at this time. Continue aggressive care. Problem Qualifiers (1) Diabetes mellitus: Qualified Code: E13.8 - Diabetes mellitus of other type with complication, unspecified manager terminal insulin use status (2) CAD (coronary artery disease): Qualified Code: I25.10 - Coronary artery disease, angina presence unspecified, unspecified vessel or lesion type, unspecified whether [place] or transplanted heart (3) Acute renal failure: Qualified Code: N17.0 - Acute renal failure with tubular necrosis Gilmar Alejandre MD Jun 20, 2016 10:37
--- NOTE | 2016-06-20 15:57 | HHI.PR ---
Subjective Remarks no change OPENS EYES , but no focus track ok Objective Vital Signs Date Time Temp Pulse Resp B/P Pulse Ox O2 Delivery O2 Flow Rate FiO2 06/20/16 14:00 100 06/20/16 12:00 100 06/20/16 12:00 98.8 100 22 137/73 97 06/20/16 10:00 88 06/20/16 08:07 98 T-piece 28.00 06/20/16 08:00 99 06/20/16 08:00 97.9 99 24 97/63 96 06/20/16 07:15 96 T-Piece 28 06/20/16 06:00 79 06/20/16 04:00 76 06/20/16 04:00 98.1 76 20 148/76 96 06/20/16 02:00 72 06/20/16 00:00 73 06/20/16 00:00 98.3 73 18 122/68 95 06/19/16 22:00 79 06/19/16 20:39 98 T-piece 28 06/19/16 20:00 99.0 75 20 124/70 95 06/19/16 20:00 75 06/19/16 19:00 95 T-Piece 28 06/19/16 18:00 78 06/19/16 16:00 97.8 75 46 120/68 96 06/19/16 16:00 75 I/O 06/19/16 06/19/16 06/19/16 06/20/16 06/20/16 06/20/16 07:00 15:00 23:00 07:00 15:00 23:00 Intake Total 692 ml 568 ml 624 ml 490 ml 383 ml Output Total 150 ml 100 ml 75 ml 100 ml 4025 ml Balance 542 ml 468 ml 549 ml 390 ml -3642 ml IV Total 65 ml 44 ml 44 ml 36 ml Tube Feeding 627 ml 424 ml 460 ml 334 ml 283 ml Tube Irrigant 100 ml 120 ml 120 ml 100 ml Output Urine Total 150 ml 100 ml 75 ml 100 ml 25 ml Tube Feeding Residual Discard 0 ml Hemodialysis 4000 ml # Bowel Movements 0 1 0 1 1 Result Diagram: 06/20/1662006/20/1621 Objective Remarks GENERAL: SKIN: Warm and dry. HEAD: Atraumatic. Normocephalic. EYES: Pupils equal and round. No scleral icterus. No injection or drainage. ENT: No nasal bleeding or discharge. Mucous membranes pink and moist. NECK: Trachea midline. No JVD. tracheostomy in place CARDIOVASCULAR: Regular rate and rhythm. RESPIRATORY: No accessory muscle use. Clear to auscultation. Breath sounds equal bilaterally. GASTROINTESTINAL: Abdomen soft, non-tender, nondistended. Hepatic and splenic margins not palpable. MUSCULOSKELETAL: Extremities without clubbing, cyanosis, or edema. No obvious deformities. NEUROLOGICAL: Awake and alert. No obvious cranial nerve deficits. Motor grossly within normal limits. Five out of 5 muscle strength in the arms and legs. Normal speech. PSYCHIATRIC: Appropriate mood and affect; insight and judgment normal. Assessment and Plan Assessment and Plan respiratory failure s/p Tracheostomy PLAN 02 as needed pulmonary toilet outlook Kj Escobar MD Jun 20, 2016 15:57
[2016-06-21] VITALS (14 sets, daily range): BP systolic 107–126; BP diastolic 56–73; PULSE 73–89; RESP 18–28; TEMP 98.1–99.2; O2SAT 96–99
[2016-06-21] MEDS: INSULIN NovoLIN REGULAR SUPPLEMENTAL SCALE SQ SCH ×3 (01:30→13:20)
[2016-06-21] MEDS: CHLORHEXIDINE GLUCONATE 2 % 1 PACK (2 CLOTHS) TOP SCH (04:00)
[2016-06-21] MEDS: hydrALAZINE HCL 25 MG TAB PO SCH ×3 (05:31→20:10)
[2016-06-21] MEDS: LABETALOL HCL 200 MG TAB PO SCH ×3 (05:31→20:10)
[2016-06-21] MEDS: CHLORHEXIDINE 0.12% (ORAL KIT) 15 ML CUP MT SCH ×2 (08:25→20:09)
[2016-06-21] MEDS: FLUCONAZOLE 100 MG TAB PO SCH (08:25)
[2016-06-21] MEDS: PANTOPRAZOLE SODIUM 40 MG VIAL IV PUSH SCH (08:26)
[2016-06-21] MEDS: HEPARIN SODIUM - SQ 10,000 UNITS/ML VIAL SQ SCH ×2 (08:26→20:10)
[2016-06-21] MEDS: DILTIAZEM HCL 60 MG TAB PO SCH ×4 (08:26→20:10)
[2016-06-21] MEDS: ASPIRIN 81 MG CHEW TAB CHEW SCH (08:26)
[2016-06-21] MEDS: ARTIFICIAL TEARS OPTH SOLN 15 ML BTL EACH EYE SCH ×3 (08:26→17:30)
[2016-06-21] MEDS: SODIUM CHLORIDE 0.9% FLUSH 5 ML FLUSH IV FLUSH SCH ×2 (08:26→20:11)
[2016-06-21] MEDS: INSULIN DETEMIR 100 UNITS/ML VIAL SQ SCH (08:27)
--- NOTE | 2016-06-21 13:55 | HHI.NPPN ---
Subjective History of Present Illness 61 year old with ARF, CHF, Respiratory failure Additional Remarks Patient s/p Trach and off sedation, remain unresponsive, now on HD. Objective Data Data 06/20/16 06/21/16 19:00 07:00 Intake Total 383 ml 1036 ml Output Total 4025 ml 50 ml Balance -3642 ml 986 ml Tube Feeding 283 ml 796 ml Tube Irrigant 100 ml 240 ml Output Urine Total 25 ml 50 ml Hemodialysis 4000 ml # Bowel Movements 1 0 Vital Signs Date Time Temp Pulse Resp B/P Pulse Ox O2 Delivery O2 Flow Rate FiO2 06/21/16 12:00 98.7 79 26 117/67 97 06/21/16 12:00 79 06/21/16 10:00 79 06/21/16 09:59 98 T-piece 28 06/21/16 08:00 82 06/21/16 08:00 99.2 82 24 121/67 99 06/21/16 07:28 98 T-Piece 28 06/21/16 06:00 83 06/21/16 04:00 84 06/21/16 04:00 98.9 84 18 111/66 96 06/21/16 02:00 81 06/21/16 00:00 98.6 76 26 116/66 98 06/21/16 00:00 76 06/20/16 22:00 76 06/20/16 20:00 81 06/20/16 20:00 98.4 81 26 125/78 97 06/20/16 19:45 99 T-piece 6.00 28 06/20/16 19:00 95 T-Piece 28 06/20/16 18:00 78 06/20/16 16:00 98.9 76 26 103/66 97 06/20/16 16:00 76 06/20/16 14:00 100 -: 06/20/16 0621 06/20/16 0621 Physical Exam General Appearance: Obese Neck Neck Exam: Neck Supple Pulmonary Resp Exam: Rhonchi, Decreased Bases, Diminished Breath Sounds, Poor Inspiratory Effort Cardiology CV Exam: Tachycardia Gastrointestinal/Abdomen GI Exam: Soft, Non-Tender, Distended Extremeties Extremities Exam: Moderate Edema, Pitting Edema, Dependent Edema Neurologic Neuro Exam: Unresponsive Assessment/Plan Problem List: (1) Acute renal failure Plan: Patient has oliguric acute renal failure and remains essentially oliguric. Continue with HD BUN and Creatinine remains high uf 4 yesterday multiple CVA Anoxic Encephalopathy S/P Trach. 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 Plan: Cardiology following (4) Acute hypoxemic respiratory failure Plan: Off ventilator (5) Hypertensive emergency Plan: BP improved (6) Diabetes mellitus Plan: Continue monitor blood glucose (7) CAD (coronary artery disease) Plan: Presented with STEMI, follow with cardiology (8) Subsequent ST elevation (STEMI) myocardial infarction of anterior wall Plan: Planned transfer to [facility] when stable. No intervention performed here. Problem Qualifiers (1) Acute renal failure: Qualified Code: N17.0 - Acute renal failure with tubular necrosis (2) Diabetes mellitus: Qualified Code: E13.8 - Diabetes mellitus of other type with complication, unspecified alf insulin use status (3) CAD (coronary artery disease): Qualified Code: I25.10 - Coronary artery disease, angina presence unspecified, unspecified vessel or lesion type, unspecified whether [place] or transplanted heart Linda Mcintosh MD Jun 21, 2016 13:55
--- NOTE | 2016-06-21 15:12 | HHI.PR ---
Subjective Remarks Follow up encephalopathy, anemia, respiratory failure. Mr. Short remains unresponsive. Per RN, patient has been afebrile. Objective Vitals Vital Signs Date Time Temp Pulse Resp B/P Pulse Ox O2 Delivery O2 Flow Rate FiO2 06/21/16 14:00 76 06/21/16 12:00 98.7 79 26 117/67 97 06/21/16 12:00 79 06/21/16 10:00 79 06/21/16 09:59 98 T-piece 28 06/21/16 08:00 82 06/21/16 08:00 99.2 82 24 121/67 99 06/21/16 07:28 98 T-Piece 28 06/21/16 06:00 83 06/21/16 04:00 84 06/21/16 04:00 98.9 84 18 111/66 96 06/21/16 02:00 81 06/21/16 00:00 98.6 76 26 116/66 98 06/21/16 00:00 76 06/20/16 22:00 76 06/20/16 20:00 81 06/20/16 20:00 98.4 81 26 125/78 97 06/20/16 19:45 99 T-piece 6.00 28 06/20/16 19:00 95 T-Piece 28 06/20/16 18:00 78 06/20/16 16:00 98.9 76 26 103/66 97 06/20/16 16:00 76 I/O 06/20/16 06/20/16 06/20/16 06/21/16 06/21/16 06/21/16 07:00 15:00 23:00 07:00 15:00 23:00 Intake Total 490 ml 383 ml 535 ml 501 ml 460 ml Output Total 100 ml 4025 ml 25 ml 25 ml 50 ml Balance 390 ml -3642 ml 510 ml 476 ml 410 ml IV Total 36 ml Tube Feeding 334 ml 283 ml 415 ml 381 ml 360 ml Tube Irrigant 120 ml 100 ml 120 ml 120 ml 100 ml Output Urine Total 100 ml 25 ml 25 ml 25 ml 50 ml Hemodialysis 4000 ml # Bowel Movements 1 1 0 0 1 Result Diagram: 06/20/1662006/20/16620 Imaging Last Impressions Chest X-Ray 06/13/16 06 Signed Impressions: Service Date/Time: Monday, June 13, 2016 05:00 - CONCLUSION: 1. Support apparatus unchanged. Minimal basilar dependent opacity in the lungs. Marek Bowers MD Chest CT 06/10/16 0000 Signed Impressions: Service Date/Time: Friday, June 10, 2016 16:11 - CONCLUSION: 1. Patchy infiltrates right upper lobe, left upper lobe and superior segments of the lower lobes. 2. Thickening of the right major fissure. 3. Bilateral gynecomastia. 4. Coronary artery calcifications. Carlitos Aguirre MD Liver Ultrasound 06/06/16 0000 Signed Impressions: Service Date/Time: Monday, June 06, 2016 14:18 - CONCLUSION: 1. Liver slightly echogenic which can be seen with fatty infiltration. 2. Spleen not visualized. 3. There may be some minimal gallbladder sludge but no cholelithiasis or wall thickening. Carlitos Aguirre MD Upper Extremity Ultrasound 06/05/16 0000 Signed Impressions: Service Date/Time: Sunday, June 05, 2016 11:01 - CONCLUSION: Occlusive thrombus right cephalic vein and left basilic vein Shahid Sin MD Lower Extremity Ultrasound 06/05/16 0000 Signed Impressions: Service Date/Time: Sunday, June 05, 2016 16:05 - CONCLUSION: Normal examination. No evidence of DVT Shahid Sin MD Gastrostomy Tube Placement 06/02/16 Signed Impressions: Service Date/Time: Thursday, June 02, 2016 12:31 - CONCLUSION: Uncomplicated gastrostomy tube placement as above. Isidro Flor MD Catheter Placement X-Ray 06/02/16 Signed Impressions: Service Date/Time: Thursday, June 02, 2016 12:31 - CONCLUSION: 1. Uncomplicated line placement as above. 2. Patient currently has a modified left subclavian PermCath catheter that is being utilized as a temporary access. Isidro Flor MD Brain MRI 05/27/16 0000 Signed Impressions: Service Date/Time: Friday, May 27, 2016 12:17 - CONCLUSION: Multifocal bilateral T2 signal abnormalities in restricted diffusion concerning for bilateral lacunar infarcts. Carlitos Aguirre MD Head CT 05/16/16 0000 Signed Impressions: Service Date/Time: Monday, May 16, 2016 08:30 - CONCLUSION: Suspected bilateral basal ganglia calcifications are unchanged. No evidence of hemorrhage, edema, mass or mass effect. Stephen Quintanilla MD Abdomen/Pelvis CT 05/16/16 0000 Signed Impressions: Service Date/Time: Monday, May 16, 2016 08:39 - CONCLUSION: There are large areas of hemorrhage including the left retroperitoneum and psoas muscle, within the mesentery and a smaller area in the right psoas muscle. They don't appear to be related to the abdominal aorta or the internal iliac arteries. There is a small focal collection hemorrhage adjacent to the left external iliac artery as it enters the pelvis, but I don't believe that is related to the large amount of hemorrhage seen elsewhere. The areas of hemorrhage are large and multi-focal. Stephen Quintanilla MD CT Angiography 05/06/16 0000 Signed Impressions: Service Date/Time: Saturday, May 07, 2016 00:04 - CONCLUSION: 1. Lobar consolidation bilaterally in the lower lobes. 2. Negative for pulmonary embolism. Michael Colbert MD Objective Remarks GENERAL: Unresponsive. SKIN: Warm and dry. HEAD: Normocephalic. EYES: No scleral icterus. No injection or drainage. NECK: Supple, trachea midline. No JVD or lymphadenopathy. CARDIOVASCULAR: Regular rate and rhythm without murmurs, gallops, or rubs. RESPIRATORY: Breath sounds equal bilaterally. No accessory muscle use. GASTROINTESTINAL: Abdomen soft, non-tender, nondistended. MUSCULOSKELETAL: No cyanosis, or edema. SCDs. 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 Status: Chronic (4) Retroperitoneal bleed ICD Code: R58 Status: Resolved (5) Acute renal failure ICD Code: N17.9 Status: Acute (6) Chronic diastolic congestive heart failure ICD Code: I50.32 Status: Chronic (7) Elevated LFTs ICD Code: R94.5 Status: Acute (8) Basal ganglia infarction ICD Code: I63.9 Status: Acute (9) Nonischemic cardiomyopathy ICD Code: I42.8 Status: Chronic (10) Hypertension ICD Code: I10 Status: Chronic (11) Aspiration pneumonia ICD Code: J69.0 Status: Acute (12) Acute blood loss anemia ICD Code: D62 Status: Acute (13) Acute thrombosis of left basilic vein ICD Code: I82.612 Status: Acute (14) Acute thrombosis of right cephalic vein ICD Code: I82.611 Status: Acute Assessment and Plan 1. Hemorrhagic shock status post large retroperitoneal bleed, acute blood loss anemia: Bleeding and shock have resolved. Monitor H&H. 2. Bilateral basal ganglia infarcts, encephalopathy: Appreciate neurology recommendations. Patient does not follow commands or track. Neurologic status is unchanged. 3. Aberrant RCA: Appreciate cardiology and cardiothoracic surgery recommendations. 4. Chronic diastolic congestive heart failure, coronary artery disease, nonischemic cardiomyopathy: Continue beta daniel, aspirin. Statin on hold. 5. Hypertension: Continue labetalol, hydralazine, Cardizem. 6. Acute hypoxemic respiratory failure: Patient was extubated on 05/13/16 and reintubated 05/16/16. Tracheostomy placed 06/01/16. Now off ventilator, tolerating T-piece. Trach management per pulmonology. 7. Aspiration pneumonia: Completed cefepime, Levaquin on 06/16/16. Appreciate infectious disease recommendations. 8. Acute renal failure secondary to ATN: Patient is oliguric. Continue hemodialysis per nephrology. 9. Diabetes mellitus type 2: Monitor Accu-Cheks and cover with sliding scale insulin. Increase Levemir from 8 units BID to 10 units QHS. May need to titrate up. Sliding scale insulin with Aspart. 10. Right cephalic vein superficial thrombus, left basilic vein thrombus, posterior tibial thrombus: Appreciate hematology recommendations. Continue aspirin. On prophylactic dose heparin, 5000 units subcutaneous twice a day. 11. GI prophylaxis: Protonix. 12. FEN: Continue tube feeds, Nepro at 50 mL per hour. 13. Poor prognosis: Patient's family does not want Palliative Care consult at this time. Continue aggressive care. Problem Qualifiers (1) Diabetes mellitus: Qualified Code: E13.8 - Diabetes mellitus of other type with complication, unspecified detention insulin use status (2) CAD (coronary artery disease): Qualified Code: I25.10 - Coronary artery disease, angina presence unspecified, unspecified vessel or lesion type, unspecified whether [place] or transplanted heart (3) Acute renal failure: Qualified Code: N17.0 - Acute renal failure with tubular necrosis Gerson Bustos DO Jun 21, 2016 3:12 pm
[2016-06-21] MEDS ORDERED: GLUCAGON 1 MG/ML VIAL OTHER PRN (15:15)
[2016-06-21] MEDS ORDERED: DEXTROSE 50% IN WATER 50 ML VIAL(D50) IV PUSH PRN (15:15)
[2016-06-21] MEDS: INSULIN ASPART SUPPLEMENTAL SCALE SQ SCH ×3 (15:58→20:13)
--- NOTE | 2016-06-21 18:21 | HHI.PR ---
Subjective Remarks no change OPENS EYES , but no focus track ok Objective Vital Signs Date Time Temp Pulse Resp B/P Pulse Ox O2 Delivery O2 Flow Rate FiO2 06/21/16 18:00 89 06/21/16 16:00 98.1 77 28 107/56 98 06/21/16 16:00 77 06/21/16 14:00 76 06/21/16 12:00 98.7 79 26 117/67 97 06/21/16 12:00 79 06/21/16 10:00 79 06/21/16 09:59 98 T-piece 28 06/21/16 08:00 82 06/21/16 08:00 99.2 82 24 121/67 99 06/21/16 07:28 98 T-Piece 28 06/21/16 06:00 83 06/21/16 04:00 84 06/21/16 04:00 98.9 84 18 111/66 96 06/21/16 02:00 81 06/21/16 00:00 98.6 76 26 116/66 98 06/21/16 00:00 76 06/20/16 22:00 76 06/20/16 20:00 81 06/20/16 20:00 98.4 81 26 125/78 97 06/20/16 19:45 99 T-piece 6.00 28 06/20/16 19:00 95 T-Piece 28 I/O 06/20/16 06/20/16 06/20/16 06/21/16 06/21/16 06/21/16 07:00 15:00 23:00 07:00 15:00 23:00 Intake Total 490 ml 383 ml 535 ml 501 ml 460 ml Output Total 100 ml 4025 ml 25 ml 25 ml 50 ml Balance 390 ml -3642 ml 510 ml 476 ml 410 ml IV Total 36 ml Tube Feeding 334 ml 283 ml 415 ml 381 ml 360 ml Tube Irrigant 120 ml 100 ml 120 ml 120 ml 100 ml Output Urine Total 100 ml 25 ml 25 ml 25 ml 50 ml Hemodialysis 4000 ml # Bowel Movements 1 1 0 0 1 Result Diagram: 06/20/1662006/20/16620 Objective Remarks GENERAL: SKIN: Warm and dry. HEAD: Atraumatic. Normocephalic. EYES: Pupils equal and round. No scleral icterus. No injection or drainage. ENT: No nasal bleeding or discharge. Mucous membranes pink and moist. NECK: Trachea midline. No JVD. tracheostomy in place CARDIOVASCULAR: Regular rate and rhythm. RESPIRATORY: No accessory muscle use. Clear to auscultation. Breath sounds equal bilaterally. GASTROINTESTINAL: Abdomen soft, non-tender, nondistended. Hepatic and splenic margins not palpable. MUSCULOSKELETAL: Extremities without clubbing, cyanosis, or edema. No obvious deformities. NEUROLOGICAL: Awake and alert. No obvious cranial nerve deficits. Motor grossly within normal limits. Five out of 5 muscle strength in the arms and legs. Normal speech. PSYCHIATRIC: Appropriate mood and affect; insight and judgment normal. Assessment and Plan Assessment and Plan respiratory failure s/p Tracheostomy PLAN 02 as needed pulmonary toilet outlook poor Kj Underwood MD Jun 21, 2016 18:21
[2016-06-21] MEDS ORDERED: INSULIN DETEMIR 100 UNITS/ML VIAL SQ SCH (21:00)
[2016-06-22] VITALS (14 sets, daily range): BP systolic 100–139; BP diastolic 59–75; PULSE 74–90; RESP 17–35; TEMP 97.4–99; O2SAT 95–100
[2016-06-22] MEDS: CHLORHEXIDINE GLUCONATE 2 % 1 PACK (2 CLOTHS) TOP SCH (04:00)
[2016-06-22] MEDS: hydrALAZINE HCL 25 MG TAB PO SCH ×3 (05:19→21:07)
[2016-06-22] MEDS: LABETALOL HCL 200 MG TAB PO SCH ×3 (05:19→21:07)
[2016-06-22] MEDS: INSULIN ASPART SUPPLEMENTAL SCALE SQ SCH ×4 (05:20→21:08)
[2016-06-22 06:21] LABS: MEAN CELL VOLUME 89.9 FL (80.0-100.0); MEAN CORPUSCULAR HEMOGLOBIN 28.5 PG (27.0-34.0); MEAN CORPUSCULAR HGB CONC 31.7 % (32.0-36.0); PLATELET COUNT 342 TH/MM3 (150-450); RED CELL DISTRIBUTION WIDTH 17.4 % (11.6-17.2); REVIEW FLAG FINAL; WHITE BLOOD COUNT 11.2 TH/MM3 (4.0-11.0)
[2016-06-22] MEDS: EPOETIN ALFA 10,000 UNITS/ML VIAL IV PRN (06:26)
[2016-06-22] MEDS: HEPARIN SODIUM - IV 10,000 UNITS/10 ML VIAL PRN (06:27)
[2016-06-22] MEDS: GENTAMICIN SULFATE (DIALYSIS USE ONLY) 20 MG/2 ML VIAL IV PRN (06:27)
[2016-06-22] MEDS: SODIUM CHLORIDE 0.9% FLUSH 5 ML FLUSH IVF PRN (06:27)
[2016-06-22] MEDS: SODIUM CHLOR 0.9% 1000 ML INJ 1,000 ML IV PRN ×2 (06:28→06:29)
[2016-06-22] MEDS: ALBUMIN HUMAN 25% 25 GM/100 ML BAGP IV PRN ×2 (07:17→07:18)
[2016-06-22] MEDS: MANNITOL 12.5 GM/50 ML VIAL IV PRN ×2 (07:17→07:18)
[2016-06-22] MEDS: CHLORHEXIDINE 0.12% (ORAL KIT) 15 ML CUP MT SCH ×2 (09:23→21:06)
[2016-06-22] MEDS: SODIUM CHLORIDE 0.9% FLUSH 5 ML FLUSH IV FLUSH SCH ×2 (09:23→21:26)
[2016-06-22] MEDS: ARTIFICIAL TEARS OPTH SOLN 15 ML BTL EACH EYE SCH ×3 (09:23→17:36)
[2016-06-22] MEDS: ASPIRIN 81 MG CHEW TAB CHEW SCH (09:23)
[2016-06-22] MEDS: PANTOPRAZOLE SODIUM 40 MG VIAL IV PUSH SCH (09:23)
[2016-06-22] MEDS: HEPARIN SODIUM - SQ 10,000 UNITS/ML VIAL SQ SCH ×2 (09:24→21:07)
[2016-06-22] MEDS: DILTIAZEM HCL 60 MG TAB PO SCH ×4 (09:24→21:07)
--- NOTE | 2016-06-22 14:26 | HHI.PR ---
Subjective Remarks Overnight events discussed with RN Patient had 1 episode of bradycardia with a short pause which has not repeated itself since yesterday patient had HD this am is at bedside - as per her report he is able to understand some commands - like when she asks him to blow out his arway. no fevers reported patient is tolerating tube feedings no vomiting reported Objective Vitals Vital Signs Date Time Temp Pulse Resp B/P Pulse Ox O2 Delivery O2 Flow Rate FiO2 06/22/16 12:00 90 06/22/16 12:00 98.7 90 19 134/72 95 06/22/16 10:00 87 06/22/16 09:31 99 T-piece 28 06/22/16 08:00 78 06/22/16 08:00 97.4 83 24 100/61 98 06/22/16 07:00 99 T-Piece 28 06/22/16 06:00 77 06/22/16 04:00 98.2 79 35 139/75 98 06/22/16 04:00 79 06/22/16 02:00 76 06/22/16 00:00 98.0 75 17 128/70 96 06/22/16 00:00 75 06/21/16 22:00 73 06/21/16 20:00 98.2 76 21 126/73 97 06/21/16 20:00 76 06/21/16 19:43 97 T-piece 4.00 28 06/21/16 19:00 95 T-Piece 28 06/21/16 18:00 89 06/21/16 16:00 98.1 77 28 107/56 98 06/21/16 16:00 77 I/O 06/21/16 06/21/16 06/21/16 06/22/16 06/22/16 06/22/16 07:00 15:00 23:00 07:00 15:00 23:00 Intake Total 501 ml 460 ml 829 ml Output Total 25 ml 50 ml 125 ml 3000 ml Balance 476 ml 410 ml 704 ml -3000 ml Tube Feeding 381 ml 360 ml 709 ml Tube Irrigant 120 ml 100 ml 120 ml Output Urine Total 25 ml 50 ml 125 ml Hemodialysis 3000 ml # Bowel Movements 0 1 Result Diagram: 06/22/16 0534 06/20/16620 Imaging Last Impressions Chest X-Ray 06/13/16 0600 Signed Impressions: Service Date/Time: Monday, June 13, 2016 05:00 - CONCLUSION: 1. Support apparatus unchanged. Minimal basilar dependent opacity in the lungs. Marek Bowers MD Chest CT 06/10/16 Signed Impressions: Service Date/Time: Friday, June 10, 2016 16:11 - CONCLUSION: 1. Patchy infiltrates right upper lobe, left upper lobe and superior segments of the lower lobes. 2. Thickening of the right major fissure. 3. Bilateral gynecomastia. 4. Coronary artery calcifications. Carlitos Aguirre MD Liver Ultrasound 06/06/16 Signed Impressions: Service Date/Time: Monday, June 06, 2016 14:18 - CONCLUSION: 1. Liver slightly echogenic which can be seen with fatty infiltration. 2. Spleen not visualized. 3. There may be some minimal gallbladder sludge but no cholelithiasis or wall thickening. Carlitos Aguirre MD Upper Extremity Ultrasound 06/05/16 Signed Impressions: Service Date/Time: Sunday, June 05, 2016 11:01 - CONCLUSION: Occlusive thrombus right cephalic vein and left basilic vein Shahid Sin MD Lower Extremity Ultrasound 06/05/16 Signed Impressions: Service Date/Time: Sunday, June 05, 2016 16:05 - CONCLUSION: Normal examination. No evidence of DVT Shahid Sin MD Gastrostomy Tube Placement 06/02/16 Signed Impressions: Service Date/Time: Thursday, June 02, 2016 12:31 - CONCLUSION: Uncomplicated gastrostomy tube placement as above. Isidro Flor MD Catheter Placement X-Ray 06/02/16 Signed Impressions: Service Date/Time: Thursday, June 02, 2016 12:31 - CONCLUSION: 1. Uncomplicated line placement as above. 2. Patient currently has a modified left subclavian PermCath catheter that is being utilized as a temporary access. Isidro Flor MD Brain MRI 05/27/16 Signed Impressions: Service Date/Time: Friday, May 27, 2016 12:17 - CONCLUSION: Multifocal bilateral T2 signal abnormalities in restricted diffusion concerning for bilateral lacunar infarcts. Carlitos Aguirre MD Head CT 05/16/16 Signed Impressions: Service Date/Time: Monday, May 16, 2016 08:30 - CONCLUSION: Suspected bilateral basal ganglia calcifications are unchanged. No evidence of hemorrhage, edema, mass or mass effect. Stephen Quintanilla MD Abdomen/Pelvis CT 05/16/16 0000 Signed Impressions: Service Date/Time: Monday, May 16, 2016 08:39 - CONCLUSION: There are large areas of hemorrhage including the left retroperitoneum and psoas muscle, within the mesentery and a smaller area in the right psoas muscle. They don't appear to be related to the abdominal aorta or the internal iliac arteries. There is a small focal collection hemorrhage adjacent to the left external iliac artery as it enters the pelvis, but I don't believe that is related to the large amount of hemorrhage seen elsewhere. The areas of hemorrhage are large and multi-focal. Stephen Quintanilla MD CT Angiography 05/06/16 0000 Signed Impressions: Service Date/Time: Saturday, May 07, 2016 00:04 - CONCLUSION: 1. Lobar consolidation bilaterally in the lower lobes. 2. Negative for pulmonary embolism. Michael Colbert MD Objective Remarks GENERAL: Non verbal, opens eyes to stimuli. SKIN: Warm and dry. HEAD: Normocephalic. EYES: No scleral icterus. No injection or drainage. NECK: Supple, trachea midline. No JVD or lymphadenopathy. CARDIOVASCULAR: Regular rate and rhythm without murmurs, gallops, or rubs. RESPIRATORY: Breath sounds equal bilaterally. No accessory muscle use. GASTROINTESTINAL: Abdomen soft, non-tender, nondistended. MUSCULOSKELETAL: No cyanosis, or edema. SCDs. Procedures 05/16/16 intubation 05/17/16 left internal jugular central line placement 05/17/16 right internal jugular Vas-Cath placement 05/17/16 right femoral arterial line placement 05/19/16 fiberoptic bronchoscopy 06/01/16 fiberoptic bronchoscopy 06/01/16 tracheostomy Medications and IVs Current Medications Medications (Trade) Dose Ordered Sig/Isabelle Route Start Time Stop Time Status Last Admin (NS Flush) 2 ml UNSCH PRN IV FLUSH 05/05/16 17:15 06/08/16 07:34 (NS Flush) 2 ml BID IV FLUSH 05/05/16 21:00 06/22/16 09:23 (Tears Naturale Opth Soln) 1 drop TID EACH EYE 05/05/16 18:00 06/22/16 12:59 (Zofran Inj) 4 mg Q6H PRN IV 05/05/16 17:15 05/26/16 01:34 Miscellaneous Information 1 Q361D XX 05/05/16 17:15 05/05/16 17:15 (Chlorhexidine 2% Cloth) Taper DAILY@04 TOP 05/06/16 04:00 05/02/17 03:59 06/22/16 04:00 (Chlorhexidine 2% Cloth) 3 pack UNSCH PRN TOP 05/05/16 17:15 (Aspirin Chew) 81 mg DAILY CHEW 05/06/16 09:00 06/22/16 09:23 (Lipitor) 20 mg DAILY PO 05/06/16 09:00 Hold 05/15/16 08:32 (Pill Splitter) 1 ea UNSCH PRN OTHER 05/11/16 15:15 Chlorhexidine Gluconate 15 ml 15 ml BID@08,20 MT 05/16/16 20:00 06/22/16 09:23 (NS 1000 ml Inj) 1,000 ml @ 0 mls/hr Q0M PRN IV 05/17/16 12:13 06/22/16 06:28 Heparin Sodium (Porcine) 8000 units 8,000 units UNSCH PRN IVF 05/17/16 12:15 Sodium Chloride 1,000 ml @ 200 mls/hr Q5H PRN IV 05/17/16 12:13 06/22/16 06:29 (NS 1000 ml Inj) 1,000 ml @ 0 mls/hr Q0M PRN IV 05/17/16 12:13 06/03/16 12:58 (Mannitol Inj) 12.5 gm UNSCH PRN IV 05/17/16 12:15 06/22/16 07:18 (Albumin 25% Inj) 25 gm UNSCH PRN IV 05/17/16 12:15 06/22/16 07:18 (NS Flush) 5 ml UNSCH PRN IVF 05/17/16 12:15 06/22/16 06:27 (Heparin Inj) UNSCH PRN .XX 05/17/16 12:15 06/22/16 06:27 (Gentamicin (Dialysis) Inj) 20 mg UNSCH PRN IV 05/17/16 12:15 06/22/16 06:27 (Zofran Inj) 4 mg UNSCH PRN IV 05/17/16 12:15 (Benadryl) 25 mg UNSCH PRN PO 05/17/16 12:15 (Gelfoam 12 Mm/7 Mm Top) 1 foam UNSCH PRN TOP 05/17/16 12:15 (Epogen Inj) 10,000 units UNSCH PRN IV 05/17/16 12:15 06/22/16 06:26 (Nitroglycerin 2% Oint) 2 inch Q6HR PRN TOPICAL 05/23/16 22:00 (Apresoline Inj) 10 mg Q1HR PRN IV PUSH 05/27/16 18:00 05/29/16 16:18 (Trandate Inj) 10 mg Q1HR PRN IV PUSH 05/27/16 17:30 06/03/16 19:51 (Trandate) 200 mg Q8HR PO 05/27/16 22:00 06/22/16 05:19 (Tylenol 650 Mg/ 20 ml Liq) 650 mg Q6H PRN TUBE 05/31/16 13:30 06/17/16 16:49 (Heparin Inj) 5,000 units Q12HR SQ 06/02/16 21:00 06/22/16 09:24 (NS Flush) UNSCH PRN IVF 06/02/16 14:30 06/08/16 07:34 (Heparin Inj) UNSCH PRN IVF 06/02/16 14:30 (Cardizem) 60 mg QID PO 06/06/16 13:00 06/22/16 12:59 (Protonix Inj) 40 mg Q24H IV PUSH 06/13/16 09:00 06/22/16 09:23 (Apresoline) 75 mg Q8HR PO 06/15/16 14:00 06/22/16 05:19 (Levemir Inj) 10 units HS SQ 06/21/16 21:00 06/21/16 20:10 (D50w (Vial) Inj) 25 ml UNSCH PRN IV PUSH 06/21/16 15:15 (Glucagon Inj) 1 mg UNSCH PRN OTHER 06/21/16 15:15 Urinary Catheter: Yes Assessment to: Continue Chaudhry insert reason: Prolonged Immobilization Date of Insertion: Jun 17, 2016 Vascular Central Line Catheter: No A/P Problem List: (1) Anoxic-ischemic encephalopathy ICD Code: G93.1 Status: Acute Plan: Patient status post bilateral basal ganglia infarcts with resultant Neurology following. Patient lethargic and hard to arouse. Neurologic status is unchanged. Patient's tolerating tube feedingson Nepro at 50 an months per hour. Test post PEG tube placement. (2) CAD (coronary artery disease) ICD Code: I25.10 Status: Chronic Plan: She presented with EKG consistent with STEMI. The patient underwent emergent cardiac catheterization which showed mild to moderate CAD similar to cardiac catheterization observed in 2010. EKG changes likely consistent with hypertensive emergency. Not a candidate for decannulation due to retroperitoneal bleed. 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 Status: Chronic Plan: As above. CT surgery consulted and cardiology following. (4) Retroperitoneal bleed ICD Code: R58 Status: Resolved Plan: Patient status post hemorrhagic shock after a large retroperitoneal bleed , acute blood loss anemia. Bleeding and shock have resolved. Continue to monitor H&H. (5) Acute renal failure ICD Code: N17.9 Status: Acute Plan: Oliguric renal failure. Patient on hemodialysis. Continue with hemodyalisis. BUN and creatinine still remain elevated and patient remains oliguric. Continue to monitor BUN and creatinine, strict input and output. (6) Chronic diastolic congestive heart failure ICD Code: I50.32 Status: Chronic Plan: Continue beta daniel, aspirin, statin on hold. Stable. Echocardiogram performed on 2016 showed a normal systolic function with ejection fraction of 55-60%. (7) Elevated LFTs ICD Code: R94.5 Status: Acute Plan: Liver function tests continued to trend down. Continue to monitor their function test. Last AST elevated at 39 and MALT normal at 73. (8) Basal ganglia infarction ICD Code: I63.9 Status: Acute Plan: Follow up neurology recommendations. Continue aspirin 81 mg. The patient is not a candidate for anticoagulation due to recent retroperitoneal bleed. (9) Hypertension ICD Code: I10 Status: Chronic Plan: Seems stable with appropriate control. Continue antihypertensive medications including hydralazine 75 mg by mouth every 8 hours, diltiazem 60 mg by mouth 4 times a day, Trileptal 1200 mg by mouth every 8 hours, hydralazine when necessary (10) Aspiration pneumonia ICD Code: J69.0 Status: Resolved Plan: Recent status post treatment with IV cefepime and Levaquin, antibiotics is continued on 06/16/16. Infectious disease consulted, appreciate recommendations. (11) Acute blood loss anemia ICD Code: D62 Status: Resolved Plan: Secondary to retroperitoneal bleed. Now resolved. Continue to monitor H &H. (12) Acute thrombosis of left basilic vein ICD Code: I82.612 Status: Acute Plan: Right cephalic vein superficial thrombosis, left basilic vein thrombus, posterior tibial thrombus. Hematology consulted, appreciate recommendations. Continue aspirin. The patient is on prophylactic dose heparin 5000 units subcutaneous twice a day. Monitor for any potential bleed. (13) Acute thrombosis of right cephalic vein ICD Code: I82.611 Status: Acute Plan: As above. (14) Diabetes mellitus ICD Code: E11.9 Status: Chronic Plan: Hemoglobin A1c 7.1. Diabetes mellitus controlled but with uncontrolled blood sugars above 200. I will increase the Levemir dose to 10 units subcutaneous twice a day and continue SSI with insulin NovoLog. (15) Sinus pause ICD Code: I45.5 Status: Acute Plan: Patient had one episode of 2 very short left sinus pauses. Telemetry reviewed by me. Sinus pause has not repeated itself. Continue to monitor on telemetry. If sinus cough continues then we will continue beta daniel. Assessment and Plan GI prophylaxis: Continue PPI. DVT prophylaxis: SCDs, no chemoprophylaxis given retroperitoneal bleed with hemorrhagic shock. Discharge Planning Okay to transfer the patient to the medical floor with telemetry. Problem Qualifiers (1) CAD (coronary artery disease): Qualified Code: I25.10 - Coronary artery disease, angina presence unspecified, unspecified vessel or lesion type, unspecified whether [place] or transplanted heart (2) Acute renal failure: Qualified Code: N17.0 - Acute renal failure with tubular necrosis (3) Hypertension: Qualified Code: I10 - Essential hypertension (4) Diabetes mellitus: Qualified Code: E13.8 - Diabetes mellitus of other type with complication, unspecified long term acute care registered nurse insulin use status Idris Morales MD Jun 22, 2016 14:26
--- NOTE | 2016-06-22 16:55 | HHI.PR ---
Subjective Remarks no change OPENS EYES , but no focus track ok Objective Vital Signs Date Time Temp Pulse Resp B/P Pulse Ox O2 Delivery O2 Flow Rate FiO2 06/22/16 16:00 98.8 74 22 107/59 95 06/22/16 16:00 74 06/22/16 14:00 81 06/22/16 12:00 90 06/22/16 12:00 98.7 90 19 134/72 95 06/22/16 10:00 87 06/22/16 09:31 99 T-piece 28 06/22/16 08:00 78 06/22/16 08:00 97.4 83 24 100/61 98 06/22/16 07:00 99 T-Piece 28 06/22/16 06:00 77 06/22/16 04:00 98.2 79 35 139/75 98 06/22/16 04:00 79 06/22/16 02:00 76 06/22/16 00:00 98.0 75 17 128/70 96 06/22/16 00:00 75 06/21/16 22:00 73 06/21/16 20:00 98.2 76 21 126/73 97 06/21/16 20:00 76 06/21/16 19:43 97 T-piece 4.00 28 06/21/16 19:00 95 T-Piece 28 06/21/16 18:00 89 I/O 06/21/16 06/21/16 06/21/16 06/22/16 06/22/16 06/22/16 07:00 15:00 23:00 07:00 15:00 23:00 Intake Total 501 ml 460 ml 829 ml 495 ml Output Total 25 ml 50 ml 125 ml 3060 ml Balance 476 ml 410 ml 704 ml -2565 ml Tube Feeding 381 ml 360 ml 709 ml 415 ml Tube Irrigant 120 ml 100 ml 120 ml Other 80 ml Output Urine Total 25 ml 50 ml 125 ml 60 ml Hemodialysis 3000 ml # Bowel Movements 0 1 1 Result Diagram: 06/22/16 0534 06/20/16 0621 Objective Remarks GENERAL: SKIN: Warm and dry. HEAD: Atraumatic. Normocephalic. EYES: Pupils equal and round. No scleral icterus. No injection or drainage. ENT: No nasal bleeding or discharge. Mucous membranes pink and moist. NECK: Trachea midline. No JVD. tracheostomy in place CARDIOVASCULAR: Regular rate and rhythm. RESPIRATORY: No accessory muscle use. Clear to auscultation. Breath sounds equal bilaterally. GASTROINTESTINAL: Abdomen soft, non-tender, nondistended. Hepatic and splenic margins not palpable. MUSCULOSKELETAL: Extremities without clubbing, cyanosis, or edema. No obvious deformities. NEUROLOGICAL: Awake and alert. No obvious cranial nerve deficits. Motor grossly within normal limits. Five out of 5 muscle strength in the arms and legs. Normal speech. PSYCHIATRIC: Appropriate mood and affect; insight and judgment normal. Assessment and Plan Assessment and Plan respiratory failure s/p Tracheostomy PLAN 02 as needed pulmonary toilet outlook poor Kj Underwood MD Jun 22, 2016 16:54
--- NOTE | 2016-06-22 17:47 | HHI.NPPN ---
Subjective History of Present Illness 61 year old with ARF, CHF, Respiratory failure Additional Remarks Patient s/p Trach and off sedation, remain unresponsive, now on HD. Objective Data Data 06/21/16 06/22/16 19:00 07:00 Intake Total 460 ml 829 ml Output Total 50 ml 125 ml Balance 410 ml 704 ml Tube Feeding 360 ml 709 ml Tube Irrigant 100 ml 120 ml Output Urine Total 50 ml 125 ml # Bowel Movements 1 Vital Signs Date Time Temp Pulse Resp B/P Pulse Ox O2 Delivery O2 Flow Rate FiO2 06/22/16 16:00 98.8 74 22 107/59 95 06/22/16 16:00 74 06/22/16 14:00 81 06/22/16 12:00 90 06/22/16 12:00 98.7 90 19 134/72 95 06/22/16 10:00 87 06/22/16 09:31 99 T-piece 28 06/22/16 08:00 78 06/22/16 08:00 97.4 83 24 100/61 98 06/22/16 07:00 99 T-Piece 28 06/22/16 06:00 77 06/22/16 04:00 98.2 79 35 139/75 98 06/22/16 04:00 79 06/22/16 02:00 76 06/22/16 00:00 98.0 75 17 128/70 96 06/22/16 00:00 75 06/21/16 22:00 73 06/21/16 20:00 98.2 76 21 126/73 97 06/21/16 20:00 76 06/21/16 19:43 97 T-piece 4.00 28 06/21/16 19:00 95 T-Piece 28 06/21/16 18:00 89 -: 06/22/16 0534 06/20/16 0621 Physical Exam General Appearance: Obese Neck Neck Exam: Neck Supple Pulmonary Resp Exam: Rhonchi, Decreased Bases, Diminished Breath Sounds, Poor Inspiratory Effort Cardiology CV Exam: Tachycardia Gastrointestinal/Abdomen GI Exam: Soft, Non-Tender, Distended Extremeties Extremities Exam: Moderate Edema, Pitting Edema, Dependent Edema Neurologic Neuro Exam: Unresponsive Assessment/Plan Problem List: (1) Acute renal failure Plan: Patient has oliguric acute renal failure and remains essentially oliguric. Continue with HD BUN and Creatinine remains high uf 3L Today multiple CVA Anoxic Encephalopathy S/P Trach. 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 Plan: Cardiology following (4) Acute hypoxemic respiratory failure Plan: Off ventilator (5) Hypertensive emergency Plan: BP improved (6) Diabetes mellitus Plan: Continue monitor blood glucose (7) CAD (coronary artery disease) Plan: Presented with STEMI, follow with cardiology (8) Subsequent ST elevation (STEMI) myocardial infarction of anterior wall Plan: Planned transfer to when stable. No intervention performed here. Problem Qualifiers (1) Acute renal failure: Qualified Code: N17.0 - Acute renal failure with tubular necrosis (2) Diabetes mellitus: Qualified Code: E13.8 - Diabetes mellitus of other type with complication, unspecified senior care insulin use status (3) CAD (coronary artery disease): Qualified Code: I25.10 - Coronary artery disease, angina presence unspecified, unspecified vessel or lesion type, unspecified whether [place] or transplanted heart Linda Mcintosh MD Jun 22, 2016 17:47
[2016-06-22] MEDS: INSULIN DETEMIR 100 UNITS/ML VIAL SQ SCH (21:08)
[2016-06-23] VITALS (9 sets, daily range): BP systolic 119–143; BP diastolic 63–76; PULSE 74–86; RESP 18–40; TEMP 97–99.5; O2SAT 95–100
[2016-06-23] MEDS: CHLORHEXIDINE GLUCONATE 2 % 1 PACK (2 CLOTHS) TOP SCH (04:00)
[2016-06-23] MEDS: LABETALOL HCL 200 MG TAB PO SCH ×3 (05:03→22:42)
[2016-06-23] MEDS: hydrALAZINE HCL 25 MG TAB PO SCH ×3 (05:04→22:42)
[2016-06-23] MEDS: INSULIN ASPART SUPPLEMENTAL SCALE SQ SCH ×4 (05:04→21:00)
[2016-06-23 07:23] LABS: AUTOMATED NEUTROPHIL # 8.3 TH/MM3 (1.8-7.7); BASOPHIL # 0.1 TH/MM3 (0-0.2); BASOPHIL % 0.8 % (0.0-2.0); EOSINOPHIL # 0.2 TH/MM3 (0-0.4); EOSINOPHIL % 1.7 % (0.0-4.0); HEMATOCRIT 33.5 % (39.0-51.0); LYMPH % 14.1 % (9.0-44.0); LYMPHOCYTE # 1.6 TH/MM3 (1.0-4.8); MEAN CELL VOLUME 90.4 FL (80.0-100.0); MEAN CORPUSCULAR HEMOGLOBIN 28.6 PG (27.0-34.0); MEAN CORPUSCULAR HGB CONC 31.6 % (32.0-36.0); MONO % 11.8 % (0.0-8.0); NEUT % 71.6 % (16.0-70.0); PLATELET COUNT 327 TH/MM3 (150-450); RED CELL DISTRIBUTION WIDTH 17.6 % (11.6-17.2); WHITE BLOOD COUNT 11.6 TH/MM3 (4.0-11.0)
[2016-06-23 07:34] LABS: HEMO FLAGS AUTO DIFF
[2016-06-23 07:42] LABS: ALT (GPT) 43 U/L (12-78); ANION GAP 14 MEQ/L (5-15); AST (GOT) 34 U/L (15-37); BICARBONATE 26.4 MEQ/L (21.0-32.0); BLOOD UREA NITROGEN 96 MG/DL (7-18); CHLORIDE 95 MEQ/L (98-107); GLOMERULAR FILTRATION RATE 14 ML/MIN (>89); MAGNESIUM 2.4 MG/DL (1.5-2.5); POTASSIUM 4.5 MEQ/L (3.5-5.1); SODIUM (NA) 135 MEQ/L (136-145)
[2016-06-23 07:44] LABS: ALKALINE PHOSPHATASE 152 U/L (45-117); TOTAL BILIRUBIN ADULT 0.5 MG/DL (0.2-1.0)
[2016-06-23] MEDS: CHLORHEXIDINE 0.12% (ORAL KIT) 15 ML CUP MT SCH ×2 (08:26→20:00)
[2016-06-23] MEDS: HEPARIN SODIUM - SQ 10,000 UNITS/ML VIAL SQ SCH ×2 (08:26→21:30)
[2016-06-23] MEDS: ASPIRIN 81 MG CHEW TAB CHEW SCH (08:27)
[2016-06-23] MEDS: DILTIAZEM HCL 60 MG TAB PO SCH ×4 (08:27→21:31)
[2016-06-23] MEDS: PANTOPRAZOLE SODIUM 40 MG VIAL IV PUSH SCH (08:27)
[2016-06-23] MEDS: SODIUM CHLORIDE 0.9% FLUSH 5 ML FLUSH IV FLUSH SCH ×2 (08:27→21:30)
[2016-06-23] MEDS: INSULIN DETEMIR 100 UNITS/ML VIAL SQ SCH ×2 (08:27→21:28)
[2016-06-23] MEDS: ARTIFICIAL TEARS OPTH SOLN 15 ML BTL EACH EYE SCH ×3 (08:28→17:32)
[2016-06-23 09:17] LABS: PLATELET ESTIMATE SMEAR NORMAL (NORMAL); PLATELET MORPHOLOGY NORMAL (NORMAL)
[2016-06-23 09:18] LABS: SCAN/DIFF AUTO DIFF CONFIRMED
[2016-06-23] MEDS: NYSTATIN 100,000 U/GM PWD 15 GM BTL TOPICAL SCH ×2 (13:36→21:00)
--- NOTE | 2016-06-23 14:31 | HHI.PR ---
Subjective Remarks Overnight events reviewed with RN - no major overnight events RN reports developing wound uder trach no reports of diarrhea, fever Vital signs stable Objective Vitals Vital Signs Date Time Temp Pulse Resp B/P Pulse Ox O2 Delivery O2 Flow Rate FiO2 06/23/16 09:00 96 T-piece 28 06/23/16 08:00 80 06/23/16 07:00 100 T-Piece 4.00 28 06/23/16 06:00 82 06/23/16 04:00 99.5 86 40 132/72 95 06/23/16 04:00 86 06/23/16 02:00 80 06/23/16 00:00 99.4 76 18 119/63 100 06/23/16 00:00 76 06/22/16 22:00 75 06/22/16 20:00 79 06/22/16 20:00 99.0 79 17 125/69 100 06/22/16 19:37 99 T-piece 28 06/22/16 19:00 100 T-Piece 28 06/22/16 18:00 80 06/22/16 16:00 98.8 74 22 107/59 95 06/22/16 16:00 74 I/O 06/22/16 06/22/16 06/22/16 06/23/16 06/23/16 06/23/16 07:00 15:00 23:00 07:00 15:00 23:00 Intake Total 829 ml 495 ml 155 ml 371 ml Output Total 125 ml 3060 ml 10 ml 25 ml Balance 704 ml -2565 ml 145 ml 346 ml Tube Feeding 709 ml 415 ml 35 ml 371 ml Tube Irrigant 120 ml 120 ml Other 80 ml Output Urine Total 125 ml 60 ml 10 ml 25 ml Hemodialysis 3000 ml # Bowel Movements 1 Result Diagram: 06/23/16 0606 06/23/16 0606 Imaging Last Impressions Chest X-Ray 06/13/16 0600 Signed Impressions: Service Date/Time: Monday, June 13, 2016 05:00 - CONCLUSION: 1. Support apparatus unchanged. Minimal basilar dependent opacity in the lungs. Marek Bowers MD Chest CT 06/10/16 0000 Signed Impressions: Service Date/Time: Friday, June 10, 2016 16:11 - CONCLUSION: 1. Patchy infiltrates right upper lobe, left upper lobe and superior segments of the lower lobes. 2. Thickening of the right major fissure. 3. Bilateral gynecomastia. 4. Coronary artery calcifications. Carlitos Aguirre MD Liver Ultrasound 06/06/16 Signed Impressions: Service Date/Time: Monday, June 06, 2016 14:18 - CONCLUSION: 1. Liver slightly echogenic which can be seen with fatty infiltration. 2. Spleen not visualized. 3. There may be some minimal gallbladder sludge but no cholelithiasis or wall thickening. Carlitos Aguirre MD Upper Extremity Ultrasound 06/05/16 Signed Impressions: Service Date/Time: Sunday, June 05, 2016 11:01 - CONCLUSION: Occlusive thrombus right cephalic vein and left basilic vein Shahid Sin MD Lower Extremity Ultrasound 06/05/16 Signed Impressions: Service Date/Time: Sunday, June 05, 2016 16:05 - CONCLUSION: Normal examination. No evidence of DVT Shahid Sin MD Gastrostomy Tube Placement 06/02/16 Signed Impressions: Service Date/Time: Thursday, June 02, 2016 12:31 - CONCLUSION: Uncomplicated gastrostomy tube placement as above. Isidro Flor MD Catheter Placement X-Ray 06/02/16 Signed Impressions: Service Date/Time: Thursday, June 02, 2016 12:31 - CONCLUSION: 1. Uncomplicated line placement as above. 2. Patient currently has a modified left subclavian PermCath catheter that is being utilized as a temporary access. Isidro Flor MD Brain MRI 05/27/16 Signed Impressions: Service Date/Time: Friday, May 27, 2016 12:17 - CONCLUSION: Multifocal bilateral T2 signal abnormalities in restricted diffusion concerning for bilateral lacunar infarcts. Carlitos Aguirre MD Head CT 05/16/16 Signed Impressions: Service Date/Time: Monday, May 16, 2016 08:30 - CONCLUSION: Suspected bilateral basal ganglia calcifications are unchanged. No evidence of hemorrhage, edema, mass or mass effect. Stephen Quintanilla MD Abdomen/Pelvis CT 05/16/16 Signed Impressions: Service Date/Time: Monday, May 16, 2016 08:39 - CONCLUSION: There are large areas of hemorrhage including the left retroperitoneum and psoas muscle, within the mesentery and a smaller area in the right psoas muscle. They don't appear to be related to the abdominal aorta or the internal iliac arteries. There is a small focal collection hemorrhage adjacent to the left external iliac artery as it enters the pelvis, but I don't believe that is related to the large amount of hemorrhage seen elsewhere. The areas of hemorrhage are large and multi-focal. Stephen Quintanilla MD CT Angiography 05/06/16 0000 Signed Impressions: Service Date/Time: Saturday, May 07, 2016 00:04 - CONCLUSION: 1. Lobar consolidation bilaterally in the lower lobes. 2. Negative for pulmonary embolism. Michael Colbert MD Objective Remarks GENERAL: Non verbal, tracks down with eyes. SKIN: Warm and dry. HEAD: Normocephalic. EYES: No scleral icterus. No injection or drainage. NECK: Supple, trachea midline. No JVD or lymphadenopathy. CARDIOVASCULAR: Regular rate and rhythm without murmurs, gallops, or rubs. RESPIRATORY: Breath sounds equal bilaterally. No accessory muscle use. GASTROINTESTINAL: Abdomen soft, non-tender, nondistended. MUSCULOSKELETAL: No cyanosis, or edema. SCDs. NEURO: Patient awake with eyes opened, tracks with sight, paraplegic. Procedures 05/16/16 intubation 05/17/16 left internal jugular central line placement 05/17/16 right internal jugular Vas-Cath placement 05/17/16 right femoral arterial line placement 05/19/16 fiberoptic bronchoscopy 06/01/16 fiberoptic bronchoscopy 06/01/16 tracheostomy Medications and IVs Current Medications Medications (Trade) Dose Ordered Sig/Isabelle Route Start Time Stop Time Status Last Admin (NS Flush) 2 ml UNSCH PRN IV FLUSH 05/05/16 17:15 06/08/16 07:34 (NS Flush) 2 ml BID IV FLUSH 05/05/16 21:00 06/23/16 08:27 (Tears Naturale Opth Soln) 1 drop TID EACH EYE 05/05/16 18:00 06/23/16 13:37 (Zofran Inj) 4 mg Q6H PRN IV 05/05/16 17:15 05/26/16 01:34 Miscellaneous Information 1 Q361D XX 05/05/16 17:15 05/05/16 17:15 (Chlorhexidine 2% Cloth) Taper DAILY@04 TOP 05/06/16 04:00 05/02/17 03:59 06/23/16 04:00 (Chlorhexidine 2% Cloth) 3 pack UNSCH PRN TOP 05/05/16 17:15 (Aspirin Chew) 81 mg DAILY CHEW 05/06/16 09:00 06/23/16 08:27 (Lipitor) 20 mg DAILY PO 05/06/16 09:00 Hold 05/15/16 08:32 (Pill Splitter) 1 ea UNSCH PRN OTHER 05/11/16 15:15 Chlorhexidine Gluconate 15 ml 15 ml BID@08,20 MT 05/16/16 20:00 06/23/16 08:26 (NS 1000 ml Inj) 1,000 ml @ 0 mls/hr Q0M PRN IV 05/17/16 12:13 06/22/16 06:28 Heparin Sodium (Porcine) 8000 units 8,000 units UNSCH PRN IVF 05/17/16 12:15 Sodium Chloride 1,000 ml @ 200 mls/hr Q5H PRN IV 05/17/16 12:13 06/22/16 06:29 (NS 1000 ml Inj) 1,000 ml @ 0 mls/hr Q0M PRN IV 05/17/16 12:13 06/03/16 12:58 (Mannitol Inj) 12.5 gm UNSCH PRN IV 05/17/16 12:15 06/22/16 07:18 (Albumin 25% Inj) 25 gm UNSCH PRN IV 05/17/16 12:15 06/22/16 07:18 (NS Flush) 5 ml UNSCH PRN IVF 05/17/16 12:15 06/22/16 06:27 (Heparin Inj) UNSCH PRN .XX 05/17/16 12:15 06/22/16 06:27 (Gentamicin (Dialysis) Inj) 20 mg UNSCH PRN IV 05/17/16 12:15 06/22/16 06:27 (Zofran Inj) 4 mg UNSCH PRN IV 05/17/16 12:15 (Benadryl) 25 mg UNSCH PRN PO 05/17/16 12:15 (Gelfoam 12 Mm/7 Mm Top) 1 foam UNSCH PRN TOP 05/17/16 12:15 (Epogen Inj) 10,000 units UNSCH PRN IV 05/17/16 12:15 06/22/16 06:26 (Nitroglycerin 2% Oint) 2 inch Q6HR PRN TOPICAL 05/23/16 22:00 (Apresoline Inj) 10 mg Q1HR PRN IV PUSH 05/27/16 18:00 05/29/16 16:18 (Trandate Inj) 10 mg Q1HR PRN IV PUSH 05/27/16 17:30 06/03/16 19:51 (Trandate) 200 mg Q8HR PO 05/27/16 22:00 06/23/16 13:36 (Tylenol 650 Mg/ 20 ml Liq) 650 mg Q6H PRN TUBE 05/31/16 13:30 06/17/16 16:49 (Heparin Inj) 5,000 units Q12HR SQ 06/02/16 21:00 06/23/16 08:26 (NS Flush) UNSCH PRN IVF 06/02/16 14:30 06/08/16 07:34 (Heparin Inj) UNSCH PRN IVF 06/02/16 14:30 (Cardizem) 60 mg QID PO 06/06/16 13:00 06/23/16 13:36 (Protonix Inj) 40 mg Q24H IV PUSH 06/13/16 09:00 06/23/16 08:27 (Apresoline) 75 mg Q8HR PO 06/15/16 14:00 06/23/16 13:36 (D50w (Vial) Inj) 25 ml UNSCH PRN IV PUSH 06/21/16 15:15 (Glucagon Inj) 1 mg UNSCH PRN OTHER 06/21/16 15:15 (Levemir Inj) 10 units BID SQ 06/22/16 21:00 06/23/16 08:27 (Mycostatin Powder) 1 applic Q12HR TOPICAL 06/23/16 11:15 06/23/16 13:36 Urinary Catheter: No Date of Insertion: Jun 17, 2016 Vascular Central Line Catheter: No A/P Problem List: (1) Anoxic-ischemic encephalopathy ICD Code: G93.1 Status: Acute Plan: Patient status post bilateral basal ganglia infarcts with resultant Neurology following. Patient lethargic and hard to arouse. Neurologic status is unchanged. Patient's tolerating tube feedingson Nepro at 50 an ml's per hour. status post PEG tube placement. (2) CAD (coronary artery disease) ICD Code: I25.10 Status: Chronic Plan: She presented with EKG consistent with STEMI. The patient underwent emergent cardiac catheterization which showed mild to moderate CAD similar to cardiac catheterization observed in 2010. EKG changes likely consistent with hypertensive emergency. Not a candidate for anticoagulation due to retroperitoneal bleed. Continue aspirin 81 mg. 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 Status: Chronic Plan: As above. CT surgery consulted and cardiology following. (4) Retroperitoneal bleed ICD Code: R58 Status: Resolved Plan: Patient status post hemorrhagic shock after a large retroperitoneal bleed , acute blood loss anemia. Bleeding and shock have resolved. Continue to monitor H&H - stable. (5) Acute renal failure ICD Code: N17.9 Status: Acute Plan: Oliguric renal failure. Patient on hemodialysis. Continue with hemodialysis. BUN and creatinine still remain elevated and patient remains oliguric. Continue to monitor BUN and creatinine, strict input and output. (6) Chronic diastolic congestive heart failure ICD Code: I50.32 Status: Chronic Plan: Continue beta daniel, aspirin, statin on hold. Stable. Echocardiogram performed on 2016 showed a normal systolic function with ejection fraction of 55-60%. (7) Elevated LFTs ICD Code: R94.5 Status: Acute Plan: Liver function tests continued to trend down. Continue to monitor their function test. AST and ALT normal today. (8) Basal ganglia infarction ICD Code: I63.9 Status: Acute Plan: Follow up neurology recommendations. Continue aspirin 81 mg. The patient is not a candidate for anticoagulation due to recent retroperitoneal bleed. (9) Hypertension ICD Code: I10 Status: Chronic Plan: Seems stable with appropriate control. Continue antihypertensive medications including hydralazine 75 mg by mouth every 8 hours, diltiazem 60 mg by mouth 4 times a day, Trileptal 1200 mg by mouth every 8 hours, hydralazine when necessary (10) Aspiration pneumonia ICD Code: J69.0 Status: Resolved Plan: Recent status post treatment with IV cefepime and Levaquin, antibiotics is continued on 06/16/16. Infectious disease consulted, appreciate recommendations. (11) Acute blood loss anemia ICD Code: D62 Status: Resolved Plan: Secondary to retroperitoneal bleed. Now resolved. Continue to monitor H &H. (12) Acute thrombosis of left basilic vein ICD Code: I82.612 Status: Acute Plan: Right cephalic vein superficial thrombosis, left basilic vein thrombus, posterior tibial thrombus. Hematology consulted, appreciate recommendations. Continue aspirin. The patient is on prophylactic dose heparin 5000 units subcutaneous twice a day. Monitor for any potential bleed. (13) Acute thrombosis of right cephalic vein ICD Code: I82.611 Status: Acute Plan: As above. (14) Diabetes mellitus ICD Code: E11.9 Status: Chronic Plan: Hemoglobin A1c 7.1. Diabetes mellitus controlled but with uncontrolled blood sugars above 200. I will increase the Levemir dose to 10 units subcutaneous twice a day and continue SSI with insulin NovoLog. (15) Sinus pause ICD Code: I45.5 Status: Acute Plan: Patient had one episode of 2 very short left sinus pauses. Telemetry reviewed by me. Sinus pause has not repeated itself. Continue to monitor on telemetry. If sinus pause continues then we will continue beta daniel. 06/23/16 No further pauses on telemetry. (16) Wound of skin ICD Code: R23.8 Status: Acute Plan: Patient has a small open area under trach collar. Will clean with Betadine and leave to open area - case discussed with RN. Assessment and Plan GI prophylaxis: Continue PPI. DVT prophylaxis: SCDs, no chemoprophylaxis given retroperitoneal bleed with hemorrhagic shock. Discharge Planning Okay to transfer the patient to the medical floor with telemetry. Problem Qualifiers (1) CAD (coronary artery disease): Qualified Code: I25.10 - Coronary artery disease, angina presence unspecified, unspecified vessel or lesion type, unspecified whether [place] or transplanted heart (2) Acute renal failure: Qualified Code: N17.0 - Acute renal failure with tubular necrosis (3) Hypertension: Qualified Code: I10 - Essential hypertension (4) Diabetes mellitus: Qualified Code: E13.8 - Diabetes mellitus of other type with complication, unspecified director long term care insulin use status Idris Morales MD Jun 23, 2016 14:31
--- NOTE | 2016-06-23 15:50 | HHI.PR ---
Subjective Remarks no change OPENS EYES , but no focus track ok Objective Vital Signs Date Time Temp Pulse Resp B/P Pulse Ox O2 Delivery O2 Flow Rate FiO2 06/23/16 12:00 82 06/23/16 12:00 98.6 82 22 142/76 100 06/23/16 09:00 96 T-piece 28 06/23/16 08:00 99.3 83 18 127/69 95 06/23/16 08:00 80 06/23/16 07:00 100 T-Piece 4.00 28 06/23/16 06:00 82 06/23/16 04:00 99.5 86 40 132/72 95 06/23/16 04:00 86 06/23/16 02:00 80 06/23/16 00:00 99.4 76 18 119/63 100 06/23/16 00:00 76 06/22/16 22:00 75 06/22/16 20:00 79 06/22/16 20:00 99.0 79 17 125/69 100 06/22/16 19:37 99 T-piece 28 06/22/16 19:00 100 T-Piece 28 06/22/16 18:00 80 06/22/16 16:00 98.8 74 22 107/59 95 06/22/16 16:00 74 I/O 06/22/16 06/22/16 06/22/16 06/23/16 06/23/16 06/23/16 07:00 15:00 23:00 07:00 15:00 23:00 Intake Total 829 ml 495 ml 155 ml 371 ml 730 ml Output Total 125 ml 3060 ml 10 ml 25 ml 100 ml Balance 704 ml -2565 ml 145 ml 346 ml 630 ml Tube Feeding 709 ml 415 ml 35 ml 371 ml 490 ml Tube Irrigant 120 ml 120 ml Other 80 ml 240 ml Output Urine Total 125 ml 60 ml 10 ml 25 ml 100 ml Hemodialysis 3000 ml # Bowel Movements 1 2 Result Diagram: 06/23/1660506/23/16605 Objective Remarks GENERAL: SKIN: Warm and dry. HEAD: Atraumatic. Normocephalic. EYES: Pupils equal and round. No scleral icterus. No injection or drainage. ENT: No nasal bleeding or discharge. Mucous membranes pink and moist. NECK: Trachea midline. No JVD. tracheostomy in place CARDIOVASCULAR: Regular rate and rhythm. RESPIRATORY: No accessory muscle use. Clear to auscultation. Breath sounds equal bilaterally. GASTROINTESTINAL: Abdomen soft, non-tender, nondistended. Hepatic and splenic margins not palpable. MUSCULOSKELETAL: Extremities without clubbing, cyanosis, or edema. No obvious deformities. NEUROLOGICAL: Awake and alert. No obvious cranial nerve deficits. Motor grossly within normal limits. Five out of 5 muscle strength in the arms and legs. Normal speech. PSYCHIATRIC: Appropriate mood and affect; insight and judgment normal. Assessment and Plan Assessment and Plan respiratory failure s/p Tracheostomy PLAN 02 as needed pulmonary toilet outlook poor Kj Underwood MD Jun 23, 2016 15:50
--- NOTE | 2016-06-23 17:32 | HHI.NPPN ---
Subjective History of Present Illness 61 year old with ARF, CHF, Respiratory failure Additional Remarks Patient s/p Trach and off sedation, remain unresponsive, now on HD. Objective Data Data 06/22/16 06/23/16 19:00 07:00 Intake Total 495 ml 526 ml Output Total 3060 ml 35 ml Balance -2565 ml 491 ml Tube Feeding 415 ml 406 ml Tube Irrigant 120 ml Other 80 ml Output Urine Total 60 ml 35 ml Hemodialysis 3000 ml # Bowel Movements 1 Vital Signs Date Time Temp Pulse Resp B/P Pulse Ox O2 Delivery O2 Flow Rate FiO2 06/23/16 12:00 82 06/23/16 12:00 98.6 82 22 142/76 100 06/23/16 09:00 96 T-piece 28 06/23/16 08:00 99.3 83 18 127/69 95 06/23/16 08:00 80 06/23/16 07:00 100 T-Piece 4.00 28 06/23/16 06:00 82 06/23/16 04:00 99.5 86 40 132/72 95 06/23/16 04:00 86 06/23/16 02:00 80 06/23/16 00:00 99.4 76 18 119/63 100 06/23/16 00:00 76 06/22/16 22:00 75 06/22/16 20:00 79 06/22/16 20:00 99.0 79 17 125/69 100 06/22/16 19:37 99 T-piece 28 06/22/16 19:00 100 T-Piece 28 06/22/16 18:00 80 -: 06/23/16 0606 06/23/16 0606 Physical Exam General Appearance: Obese Neck Neck Exam: Neck Supple Pulmonary Resp Exam: Rhonchi, Decreased Bases, Diminished Breath Sounds, Poor Inspiratory Effort Cardiology CV Exam: Tachycardia Gastrointestinal/Abdomen GI Exam: Soft, Non-Tender, Distended Extremeties Extremities Exam: Moderate Edema, Pitting Edema, Dependent Edema Neurologic Neuro Exam: Unresponsive Assessment/Plan Problem List: (1) Acute renal failure Plan: Patient has oliguric acute renal failure and remains essentially oliguric. Continue with HD BUN and Creatinine remains high Hemodialysis due Sunday multiple CVA Anoxic Encephalopathy S/P Trach. 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 Plan: Cardiology following (4) Acute hypoxemic respiratory failure Plan: Off ventilator (5) Hypertensive emergency Plan: BP improved (6) Diabetes mellitus Plan: Continue monitor blood glucose (7) CAD (coronary artery disease) Plan: Presented with STEMI, follow with cardiology (8) Subsequent ST elevation (STEMI) myocardial infarction of anterior wall Plan: Planned transfer to when stable. No intervention performed here. Problem Qualifiers (1) Acute renal failure: Qualified Code: N17.0 - Acute renal failure with tubular necrosis (2) Diabetes mellitus: Qualified Code: E13.8 - Diabetes mellitus of other type with complication, unspecified retirement insulin use status (3) CAD (coronary artery disease): Qualified Code: I25.10 - Coronary artery disease, angina presence unspecified, unspecified vessel or lesion type, unspecified whether [place] or transplanted heart Linda Mcintosh MD Jun 23, 2016 17:32
[2016-06-24] VITALS (7 sets, daily range): BP systolic 115–144; BP diastolic 65–83; PULSE 56–99; RESP 18–22; TEMP 98–99.4; O2SAT 96–99
[2016-06-24] MEDS: CHLORHEXIDINE GLUCONATE 2 % 1 PACK (2 CLOTHS) TOP SCH (03:59)
[2016-06-24] MEDS: INSULIN ASPART SUPPLEMENTAL SCALE SQ SCH ×4 (05:50→21:00)
[2016-06-24] MEDS: hydrALAZINE HCL 25 MG TAB PO SCH ×3 (05:50→21:09)
[2016-06-24] MEDS: LABETALOL HCL 200 MG TAB PO SCH ×3 (05:50→21:09)
[2016-06-24 06:57] LABS: BASOPHIL # 0.1 TH/MM3 (0-0.2); BASOPHIL % 0.7 % (0.0-2.0); EOSINOPHIL # 0.1 TH/MM3 (0-0.4); EOSINOPHIL % 1.1 % (0.0-4.0); HEMATOCRIT 33.9 % (39.0-51.0); LYMPH % 13.8 % (9.0-44.0); LYMPHOCYTE # 1.6 TH/MM3 (1.0-4.8); MEAN CELL VOLUME 89.8 FL (80.0-100.0); MEAN CORPUSCULAR HEMOGLOBIN 29.1 PG (27.0-34.0); MEAN CORPUSCULAR HGB CONC 32.4 % (32.0-36.0); NEUT % 76.4 % (16.0-70.0); PLATELET COUNT 310 TH/MM3 (150-450); RED BLOOD COUNT 3.78 MIL/MM3 (4.50-5.90); RED CELL DISTRIBUTION WIDTH 17.4 % (11.6-17.2); WHITE BLOOD COUNT 11.8 TH/MM3 (4.0-11.0)
[2016-06-24 06:59] LABS: HEMO FLAGS AUTO DIFF
[2016-06-24 07:29] LABS: ALKALINE PHOSPHATASE 162 U/L (45-117); ALT (GPT) 37 U/L (12-78); ANION GAP 15 MEQ/L (5-15); AST (GOT) 30 U/L (15-37); BICARBONATE 27.7 MEQ/L (21.0-32.0); BLOOD UREA NITROGEN 116 MG/DL (7-18); CHLORIDE 91 MEQ/L (98-107); GLOMERULAR FILTRATION RATE 12 ML/MIN (>89); POTASSIUM 4.5 MEQ/L (3.5-5.1); SODIUM (NA) 134 MEQ/L (136-145); TOTAL BILIRUBIN ADULT 0.5 MG/DL (0.2-1.0)
[2016-06-24 07:31] LABS: EOSINOPHILS 2 % (0-4); POLYS (SEG NEUTROPHILS) 68 % (16-70); WBC DIFF SAMPLE 100
[2016-06-24 07:32] LABS: PLATELET ESTIMATE SMEAR NORMAL (NORMAL); PLATELET MORPHOLOGY NORMAL (NORMAL)
[2016-06-24 07:33] LABS: SCAN/DIFF FINAL DIFF MANUAL
[2016-06-24] MEDS: CHLORHEXIDINE 0.12% (ORAL KIT) 15 ML CUP MT SCH ×2 (08:00→20:00)
[2016-06-24] MEDS: HEPARIN SODIUM - SQ 10,000 UNITS/ML VIAL SQ SCH ×2 (08:37→21:09)
[2016-06-24] MEDS: DILTIAZEM HCL 60 MG TAB PO SCH ×4 (08:37→21:09)
[2016-06-24] MEDS: INSULIN DETEMIR 100 UNITS/ML VIAL SQ SCH ×2 (08:37→21:08)
[2016-06-24] MEDS: ASPIRIN 81 MG CHEW TAB CHEW SCH (08:37)
[2016-06-24] MEDS: PANTOPRAZOLE SODIUM 40 MG VIAL IV PUSH SCH (08:37)
[2016-06-24] MEDS: ARTIFICIAL TEARS OPTH SOLN 15 ML BTL EACH EYE SCH ×3 (08:38→18:00)
[2016-06-24] MEDS: SODIUM CHLORIDE 0.9% FLUSH 5 ML FLUSH IV FLUSH SCH ×2 (08:39→21:10)
[2016-06-24] MEDS: NYSTATIN 100,000 U/GM PWD 15 GM BTL TOPICAL SCH ×2 (08:39→21:00)
[2016-06-24] MEDS: EPOETIN ALFA 10,000 UNITS/ML VIAL IV PRN (11:43)
[2016-06-24] MEDS: SODIUM CHLOR 0.9% 1000 ML INJ 1,000 ML IV PRN ×2 (11:44→11:45)
[2016-06-24] MEDS: HEPARIN SODIUM - IV 10,000 UNITS/10 ML VIAL PRN (11:44)
[2016-06-24] MEDS: SODIUM CHLORIDE 0.9% FLUSH 5 ML FLUSH IVF PRN (11:45)
[2016-06-24] MEDS: GENTAMICIN SULFATE (DIALYSIS USE ONLY) 20 MG/2 ML VIAL IV PRN (11:45)
--- NOTE | 2016-06-24 14:27 | HHI.NPPN ---
Subjective History of Present Illness 61 year old with ARF, CHF, Respiratory failure Additional Remarks Patient seen on HD, with trach. Non-communicative. Objective Data Data 06/23/16 06/24/16 19:00 07:00 Intake Total 730 ml 678 ml Output Total 100 ml Balance 630 ml 678 ml Tube Feeding 490 ml 678 ml Other 240 ml Output Urine Total 100 ml # Bowel Movements 2 Vital Signs Date Time Temp Pulse Resp B/P Pulse Ox O2 Delivery O2 Flow Rate FiO2 06/24/16 10:01 97 T-piece 6.00 28 06/24/16 08:00 99.4 56 20 138/83 97 06/24/16 04:00 98.0 86 20 144/65 96 06/24/16 00:00 98.5 76 22 140/75 99 06/23/16 20:00 97.0 74 20 127/75 99 06/23/16 20:00 T-Piece 4.00 28 06/23/16 20:00 74 06/23/16 18:27 T-Piece 4.00 28 06/23/16 16:00 98.3 80 20 143/74 97 -: 06/24/16 0636 06/24/16 0636 Physical Exam General Appearance: No Acute Distress, Comfortable, Obese Neck Neck Exam: Neck Supple Pulmonary Resp Exam: Rhonchi, Decreased Bases, Diminished Breath Sounds, Poor Inspiratory Effort Cardiology CV Exam: Tachycardia Gastrointestinal/Abdomen GI Exam: Soft, Non-Tender, Distended Extremeties Extremities Exam: Moderate Edema, Pitting Edema, Dependent Edema Neurologic Neuro Exam: Unresponsive Assessment/Plan Problem List: (1) Acute renal failure Plan: Patient has oliguric acute renal failure BUN and Creatinine remain high Continue with HD Tolerating HD today, continue TTS HD. Multiple CVA Anoxic Encephalopathy S/P Trach. 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 Plan: Cardiology following (4) Acute hypoxemic respiratory failure Plan: Off ventilator (5) Hypertensive emergency Plan: BP improved (6) Diabetes mellitus Plan: Continue monitor blood glucose (7) CAD (coronary artery disease) Plan: Presented with STEMI, follow with cardiology (8) Subsequent ST elevation (STEMI) myocardial infarction of anterior wall Plan: Planned transfer to when stable. No intervention performed here. Problem Qualifiers (1) Acute renal failure: Qualified Code: N17.0 - Acute renal failure with tubular necrosis (2) Diabetes mellitus: Qualified Code: E13.8 - Diabetes mellitus of other type with complication, unspecified [employer] intermediary insulin use status (3) CAD (coronary artery disease): Qualified Code: I25.10 - Coronary artery disease, angina presence unspecified, unspecified vessel or lesion type, unspecified whether [place] or transplanted heart Mahin Kim MD Jun 24, 2016 14:26
--- NOTE | 2016-06-24 17:06 | HHI.PR ---
Subjective Remarks Follow up encephalopathy, anemia, respiratory failure. Patient seen in room remains unresponsive. Patient s/p HD today. Multiple family members at bedside. Objective Vitals Vital Signs Date Time Temp Pulse Resp B/P Pulse Ox O2 Delivery O2 Flow Rate FiO2 06/24/16 10:01 97 T-piece 6.00 28 06/24/16 08:00 99.4 56 20 138/83 97 06/24/16 04:00 98.0 86 20 144/65 96 06/24/16 00:00 98.5 76 22 140/75 99 06/23/16 20:00 97.0 74 20 127/75 99 06/23/16 20:00 T-Piece 4.00 28 06/23/16 20:00 74 06/23/16 18:27 T-Piece 4.00 28 I/O 06/23/16 06/23/16 06/23/16 06/24/16 06/24/16 06/24/16 07:00 15:00 23:00 07:00 15:00 23:00 Intake Total 371 ml 730 ml 678 ml Output Total 25 ml 100 ml 4000 ml Balance 346 ml 630 ml 678 ml -4000 ml Tube Feeding 371 ml 490 ml 678 ml Other 240 ml Output Urine Total 25 ml 100 ml Hemodialysis 4000 ml # Bowel Movements 2 Result Diagram: 06/24/16 0636 06/24/16 0636 Imaging Last Impressions Chest X-Ray 06/13/16 0600 Signed Impressions: Service Date/Time: Monday, June 13, 2016 05:00 - CONCLUSION: 1. Support apparatus unchanged. Minimal basilar dependent opacity in the lungs. Marek Bowers MD Chest CT 06/10/16 0000 Signed Impressions: Service Date/Time: Friday, June 10, 2016 16:11 - CONCLUSION: 1. Patchy infiltrates right upper lobe, left upper lobe and superior segments of the lower lobes. 2. Thickening of the right major fissure. 3. Bilateral gynecomastia. 4. Coronary artery calcifications. Carlitos Aguirre MD Liver Ultrasound 06/06/16 0000 Signed Impressions: Service Date/Time: Monday, June 06, 2016 14:18 - CONCLUSION: 1. Liver slightly echogenic which can be seen with fatty infiltration. 2. Spleen not visualized. 3. There may be some minimal gallbladder sludge but no cholelithiasis or wall thickening. Carlitos Aguirre MD Upper Extremity Ultrasound 06/05/16 Signed Impressions: Service Date/Time: Sunday, June 05, 2016 11:01 - CONCLUSION: Occlusive thrombus right cephalic vein and left basilic vein Shahid Sin MD Lower Extremity Ultrasound 06/05/16 Signed Impressions: Service Date/Time: Sunday, June 05, 2016 16:05 - CONCLUSION: Normal examination. No evidence of DVT Shahid Sin MD Gastrostomy Tube Placement 06/02/16 Signed Impressions: Service Date/Time: Thursday, June 02, 2016 12:31 - CONCLUSION: Uncomplicated gastrostomy tube placement as above. Isidro Flor MD Catheter Placement X-Ray 06/02/16 Signed Impressions: Service Date/Time: Thursday, June 02, 2016 12:31 - CONCLUSION: 1. Uncomplicated line placement as above. 2. Patient currently has a modified left subclavian PermCath catheter that is being utilized as a temporary access. Isidro Flor MD Brain MRI 05/27/16 Signed Impressions: Service Date/Time: Friday, May 27, 2016 12:17 - CONCLUSION: Multifocal bilateral T2 signal abnormalities in restricted diffusion concerning for bilateral lacunar infarcts. Carlitos Aguirre MD Head CT 05/16/16 Signed Impressions: Service Date/Time: Monday, May 16, 2016 08:30 - CONCLUSION: Suspected bilateral basal ganglia calcifications are unchanged. No evidence of hemorrhage, edema, mass or mass effect. Stephen Quintanilla MD Abdomen/Pelvis CT 05/16/16 Signed Impressions: Service Date/Time: Monday, May 16, 2016 08:39 - CONCLUSION: There are large areas of hemorrhage including the left retroperitoneum and psoas muscle, within the mesentery and a smaller area in the right psoas muscle. They don't appear to be related to the abdominal aorta or the internal iliac arteries. There is a small focal collection hemorrhage adjacent to the left external iliac artery as it enters the pelvis, but I don't believe that is related to the large amount of hemorrhage seen elsewhere. The areas of hemorrhage are large and multi-focal. Stephen Quintanilla MD CT Angiography 05/06/16 0000 Signed Impressions: Service Date/Time: Saturday, May 07, 2016 00:04 - CONCLUSION: 1. Lobar consolidation bilaterally in the lower lobes. 2. Negative for pulmonary embolism. Michael Colbert MD Objective Remarks GENERAL: Unresponsive. SKIN: Warm and dry. HEAD: Normocephalic. EYES: No scleral icterus. No injection or drainage. NECK: Supple, trachea midline. No JVD or lymphadenopathy. CARDIOVASCULAR: Regular rate and rhythm without murmurs, gallops, or rubs. RESPIRATORY: Breath sounds equal bilaterally. No accessory muscle use. GASTROINTESTINAL: Abdomen soft, non-tender, nondistended. MUSCULOSKELETAL: No cyanosis, or edema. SCDs. 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 Status: Chronic (4) Retroperitoneal bleed ICD Code: R58 Status: Resolved (5) Acute renal failure ICD Code: N17.9 Status: Acute (6) Chronic diastolic congestive heart failure ICD Code: I50.32 Status: Chronic (7) Elevated LFTs ICD Code: R94.5 Status: Acute (8) Basal ganglia infarction ICD Code: I63.9 Status: Acute (9) Hypertension ICD Code: I10 Status: Chronic (10) Aspiration pneumonia ICD Code: J69.0 Status: Resolved (11) Acute blood loss anemia ICD Code: D62 Status: Resolved (12) Acute thrombosis of left basilic vein ICD Code: I82.612 Status: Acute (13) Acute thrombosis of right cephalic vein ICD Code: I82.611 Status: Acute (14) Diabetes mellitus ICD Code: E11.9 Status: Chronic (15) Sinus pause ICD Code: I45.5 Status: Acute (16) Wound of skin ICD Code: R23.8 Status: Acute Assessment and Plan 1. Hemorrhagic shock status post large retroperitoneal bleed 05/15/16, acute blood loss anemia: Bleeding and shock have resolved. Monitor H&H. 2. Bilateral basal ganglia infarcts, encephalopathy: Appreciate neurology recommendations. Patient does not follow commands or track. Neurologic status is unchanged. 3. Aberrant RCA: Appreciate cardiology and cardiothoracic surgery recommendations. 4. Chronic diastolic congestive heart failure, coronary artery disease, nonischemic cardiomyopathy: Continue beta daniel, aspirin. Statin on hold. 5. Hypertension: Continue labetalol, hydralazine, Cardizem. 6. Acute hypoxemic respiratory failure: Patient was extubated on 05/13/16 and reintubated 05/16/16. Tracheostomy placed 06/01/16. Now off ventilator, tolerating T-piece. Trach management per pulmonology. 7. Aspiration pneumonia: Completed cefepime, Levaquin on 06/16/16. Appreciate infectious disease recommendations. 8. Acute renal failure secondary to ATN: Patient is oliguric. Continue hemodialysis per nephrology. 9. Diabetes mellitus type 2: Monitor Accu-Cheks and cover with sliding scale insulin. Increase Levemir to 15 units BID. Continue sliding scale insulin with Aspart. 10. Right cephalic vein superficial thrombus, left basilic vein thrombus, posterior tibial thrombus: Appreciate hematology recommendations. Continue aspirin. On prophylactic dose heparin, 5000 units subcutaneous twice a day. 11. GI prophylaxis: Protonix. 12. FEN: Continue tube feeds, Nepro at 50 mL per hour. 13. Poor prognosis: Patient's family does not want Palliative Care consult at this time. Continue aggressive care. 14. UTI with Bridget Glabrata s/p Diflucan PO x 5days per ID recommendations Discussed with family at bedside, RN and Dr. 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
[2016-06-24] MEDS: RESP: ALBUTEROL 2.5 MG/IPRATROPIUM 0.5 MG NEB (PRN) INH (18:16)
[2016-06-25] VITALS (8 sets, daily range): BP systolic 110–140; BP diastolic 55–88; PULSE 76–103; RESP 16–22; TEMP 97.6–99.3; O2SAT 94–99
[2016-06-25] MEDS: CHLORHEXIDINE GLUCONATE 2 % 1 PACK (2 CLOTHS) TOP SCH (04:00)
[2016-06-25] MEDS: LABETALOL HCL 200 MG TAB PO SCH ×3 (05:54→20:58)
[2016-06-25] MEDS: hydrALAZINE HCL 25 MG TAB PO SCH ×3 (05:54→20:58)
[2016-06-25] MEDS: INSULIN ASPART SUPPLEMENTAL SCALE SQ SCH ×4 (05:54→21:00)
[2016-06-25 08:22] LABS: HEMATOCRIT 35.9 % (39.0-51.0); MEAN CELL VOLUME 90.6 FL (80.0-100.0); PLATELET COUNT 338 TH/MM3 (150-450); RED BLOOD COUNT 3.96 MIL/MM3 (4.50-5.90); REVIEW FLAG FINAL; WHITE BLOOD COUNT 12.6 TH/MM3 (4.0-11.0)
[2016-06-25] MEDS: ARTIFICIAL TEARS OPTH SOLN 15 ML BTL EACH EYE SCH ×3 (09:00→18:00)
[2016-06-25] MEDS: PANTOPRAZOLE SODIUM 40 MG VIAL IV PUSH SCH (09:00)
[2016-06-25] MEDS: HEPARIN SODIUM - SQ 10,000 UNITS/ML VIAL SQ SCH ×2 (09:00→20:59)
[2016-06-25] MEDS: DILTIAZEM HCL 60 MG TAB PO SCH ×4 (09:00→20:59)
[2016-06-25] MEDS: ASPIRIN 81 MG CHEW TAB CHEW SCH (09:00)
[2016-06-25] MEDS: NYSTATIN 100,000 U/GM PWD 15 GM BTL TOPICAL SCH ×2 (09:00→21:00)
[2016-06-25] MEDS: INSULIN DETEMIR 100 UNITS/ML VIAL SQ SCH ×2 (09:00→20:59)
--- NOTE | 2016-06-25 11:49 | HHI.PR ---
Subjective Remarks No major overnight events at bedside patient is non verbal afebrile vital signs stable tolerating tube feeds no reported diarrhea Objective Vitals Vital Signs Date Time Temp Pulse Resp B/P Pulse Ox O2 Delivery O2 Flow Rate FiO2 06/25/16 09:15 94 T-piece 28 06/25/16 08:00 99.3 89 18 140/72 99 06/25/16 04:00 98.1 95 22 132/73 95 06/25/16 04:00 T-Piece 28 06/25/16 00:00 98.7 86 20 110/55 95 06/24/16 20:00 98.9 97 18 115/74 97 06/24/16 20:00 T-Piece 6.00 28 06/24/16 20:00 99 06/24/16 19:37 89 06/24/16 16:00 98.6 99 20 118/67 97 I/O 06/24/16 06/24/16 06/24/16 06/25/16 06/25/16 06/25/16 07:00 15:00 23:00 07:00 15:00 23:00 Intake Total 678 ml 553 ml 0 ml Output Total 4000 ml 50 ml Balance 678 ml -4000 ml 503 ml 0 ml Intake Oral 0 ml 0 ml Tube Feeding 678 ml 553 ml Output Urine Total 50 ml Hemodialysis 4000 ml # Voids 0 # Bowel Movements 1 0 Result Diagram: 06/25/16 0622 06/24/16 0636 Imaging Last Impressions Chest X-Ray 06/13/16 0600 Signed Impressions: Service Date/Time: Monday, June 13, 2016 05:00 - CONCLUSION: 1. Support apparatus unchanged. Minimal basilar dependent opacity in the lungs. Marek Bowers MD Chest CT 06/10/16 0000 Signed Impressions: Service Date/Time: Friday, June 10, 2016 16:11 - CONCLUSION: 1. Patchy infiltrates right upper lobe, left upper lobe and superior segments of the lower lobes. 2. Thickening of the right major fissure. 3. Bilateral gynecomastia. 4. Coronary artery calcifications. Carlitos Aguirre MD Liver Ultrasound 06/06/16 0000 Signed Impressions: Service Date/Time: Monday, June 06, 2016 14:18 - CONCLUSION: 1. Liver slightly echogenic which can be seen with fatty infiltration. 2. Spleen not visualized. 3. There may be some minimal gallbladder sludge but no cholelithiasis or wall thickening. Carlitos Aguirre MD Upper Extremity Ultrasound 06/05/16 Signed Impressions: Service Date/Time: Sunday, June 05, 2016 11:01 - CONCLUSION: Occlusive thrombus right cephalic vein and left basilic vein Shahid Sin MD Lower Extremity Ultrasound 06/05/16 Signed Impressions: Service Date/Time: Sunday, June 05, 2016 16:05 - CONCLUSION: Normal examination. No evidence of DVT Shahid Sin MD Gastrostomy Tube Placement 06/02/16 Signed Impressions: Service Date/Time: Thursday, June 02, 2016 12:31 - CONCLUSION: Uncomplicated gastrostomy tube placement as above. Isidro Flor MD Catheter Placement X-Ray 06/02/16 Signed Impressions: Service Date/Time: Thursday, June 02, 2016 12:31 - CONCLUSION: 1. Uncomplicated line placement as above. 2. Patient currently has a modified left subclavian PermCath catheter that is being utilized as a temporary access. Isidro Flor MD Brain MRI 05/27/16 Signed Impressions: Service Date/Time: Friday, May 27, 2016 12:17 - CONCLUSION: Multifocal bilateral T2 signal abnormalities in restricted diffusion concerning for bilateral lacunar infarcts. Carlitos Aguirre MD Head CT 05/16/16 Signed Impressions: Service Date/Time: Monday, May 16, 2016 08:30 - CONCLUSION: Suspected bilateral basal ganglia calcifications are unchanged. No evidence of hemorrhage, edema, mass or mass effect. Stephen Quintanilla MD Abdomen/Pelvis CT 05/16/16 Signed Impressions: Service Date/Time: Monday, May 16, 2016 08:39 - CONCLUSION: There are large areas of hemorrhage including the left retroperitoneum and psoas muscle, within the mesentery and a smaller area in the right psoas muscle. They don't appear to be related to the abdominal aorta or the internal iliac arteries. There is a small focal collection hemorrhage adjacent to the left external iliac artery as it enters the pelvis, but I don't believe that is related to the large amount of hemorrhage seen elsewhere. The areas of hemorrhage are large and multi-focal. Stephen Quintanilla MD CT Angiography 05/06/16 0000 Signed Impressions: Service Date/Time: Saturday, May 07, 2016 00:04 - CONCLUSION: 1. Lobar consolidation bilaterally in the lower lobes. 2. Negative for pulmonary embolism. Michael Colbert MD Objective Remarks GENERAL: Non verbal, tracks down with eyes. SKIN: Warm and dry. HEAD: Normocephalic. EYES: No scleral icterus. No injection or drainage. NECK: Supple, trachea midline. No JVD or lymphadenopathy. CARDIOVASCULAR: Regular rate and rhythm without murmurs, gallops, or rubs. RESPIRATORY: Breath sounds equal bilaterally. No accessory muscle use. GASTROINTESTINAL: Abdomen soft, non-tender, nondistended. MUSCULOSKELETAL: No cyanosis, or edema. SCDs. NEURO: Patient awake with eyes opened, tracks with sight, paraplegic. Procedures 05/16/16 intubation 05/17/16 left internal jugular central line placement 05/17/16 right internal jugular Vas-Cath placement 05/17/16 right femoral arterial line placement 05/19/16 fiberoptic bronchoscopy 06/01/16 fiberoptic bronchoscopy 06/01/16 tracheostomy Medications and IVs Last Impressions Chest X-Ray 06/13/16 0600 Signed Impressions: Service Date/Time: Monday, June 13, 2016 05:00 - CONCLUSION: 1. Support apparatus unchanged. Minimal basilar dependent opacity in the lungs. Marek Bowers MD Chest CT 06/10/16 0000 Signed Impressions: Service Date/Time: Friday, June 10, 2016 16:11 - CONCLUSION: 1. Patchy infiltrates right upper lobe, left upper lobe and superior segments of the lower lobes. 2. Thickening of the right major fissure. 3. Bilateral gynecomastia. 4. Coronary artery calcifications. Carlitos Aguirre MD Liver Ultrasound 06/06/16 0000 Signed Impressions: Service Date/Time: Monday, June 06, 2016 14:18 - CONCLUSION: 1. Liver slightly echogenic which can be seen with fatty infiltration. 2. Spleen not visualized. 3. There may be some minimal gallbladder sludge but no cholelithiasis or wall thickening. Carlitos Aguirre MD Upper Extremity Ultrasound 06/05/16 0000 Signed Impressions: Service Date/Time: Sunday, June 05, 2016 11:01 - CONCLUSION: Occlusive thrombus right cephalic vein and left basilic vein Shahid Stone, MD Lower Extremity Ultrasound 06/05/16 0000 Signed Impressions: Service Date/Time: Sunday, June 05, 2016 16:05 - CONCLUSION: Normal examination. No evidence of DVT Shahid Sin MD Gastrostomy Tube Placement 06/02/16 0000 Signed Impressions: Service Date/Time: Thursday, June 02, 2016 12:31 - CONCLUSION: Uncomplicated gastrostomy tube placement as above. Isidro Flor MD Catheter Placement X-Ray 06/02/16 Signed Impressions: Service Date/Time: Thursday, June 02, 2016 12:31 - CONCLUSION: 1. Uncomplicated line placement as above. 2. Patient currently has a modified left subclavian PermCath catheter that is being utilized as a temporary access. Isidro Flor MD Brain MRI 05/27/16 0000 Signed Impressions: Service Date/Time: Friday, May 27, 2016 12:17 - CONCLUSION: Multifocal bilateral T2 signal abnormalities in restricted diffusion concerning for bilateral lacunar infarcts. Carlitos Aguirre MD Head CT 05/16/16 0000 Signed Impressions: Service Date/Time: Monday, May 16, 2016 08:30 - CONCLUSION: Suspected bilateral basal ganglia calcifications are unchanged. No evidence of hemorrhage, edema, mass or mass effect. Stephen Quintanilla MD Abdomen/Pelvis CT 05/16/16 0000 Signed Impressions: Service Date/Time: Monday, May 16, 2016 08:39 - CONCLUSION: There are large areas of hemorrhage including the left retroperitoneum and psoas muscle, within the mesentery and a smaller area in the right psoas muscle. They don't appear to be related to the abdominal aorta or the internal iliac arteries. There is a small focal collection hemorrhage adjacent to the left external iliac artery as it enters the pelvis, but I don't believe that is related to the large amount of hemorrhage seen elsewhere. The areas of hemorrhage are large and multi-focal. Stephen Quintanilla MD CT Angiography 05/06/16 0000 Signed Impressions: Service Date/Time: Saturday, May 07, 2016 00:04 - CONCLUSION: 1. Lobar consolidation bilaterally in the lower lobes. 2. Negative for pulmonary embolism. Michael Colbert MD Urinary Catheter: No Date of Insertion: Jun 17, 2016 Vascular Central Line Catheter: No A/P Problem List: (1) Anoxic-ischemic encephalopathy ICD Code: G93.1 Status: Acute Plan: Patient status post bilateral basal ganglia infarcts. Neurology following. Patient lethargic and hard to arouse. Neurologic status is unchanged. Patient's tolerating tube feedingson Nepro at 50 an ml's per hour. status post PEG tube placement. (2) CAD (coronary artery disease) ICD Code: I25.10 Status: Chronic Plan: She presented with EKG consistent with STEMI. The patient underwent emergent cardiac catheterization which showed mild to moderate CAD similar to cardiac catheterization observed in 2009. EKG changes likely consistent with hypertensive emergency. Not a candidate for anticoagulation due to retroperitoneal bleed. Continue aspirin 81 mg. 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 Status: Chronic Plan: As above. CT surgery consulted and cardiology following. (4) Retroperitoneal bleed ICD Code: R58 Status: Resolved Plan: Patient status post hemorrhagic shock after a large retroperitoneal bleed , acute blood loss anemia. Bleeding and shock have resolved. Continue to monitor H&H - stable. (5) Acute renal failure ICD Code: N17.9 Status: Acute Plan: Oliguric renal failure. Patient on hemodialysis. Continue with hemodialysis. BUN and creatinine still remain elevated and patient remains oliguric. Continue to monitor BUN and creatinine, strict input and output. (6) Chronic diastolic congestive heart failure ICD Code: I50.32 Status: Chronic Plan: Continue beta daniel, aspirin, statin on hold. Stable. Echocardiogram performed on 2016 showed a normal systolic function with ejection fraction of 55-60%. (7) Elevated LFTs ICD Code: R94.5 Status: Acute Plan: Liver function tests continued to trend down. Continue to monitor their function test. AST and ALT normal today. (8) Basal ganglia infarction ICD Code: I63.9 Status: Acute Plan: Follow up neurology recommendations. Continue aspirin 81 mg. The patient is not a candidate for anticoagulation due to recent retroperitoneal bleed. (9) Hypertension ICD Code: I10 Status: Chronic Plan: Seems stable with appropriate control. Continue antihypertensive medications including hydralazine 75 mg by mouth every 8 hours, diltiazem 60 mg by mouth 4 times a day, Trileptal 1200 mg by mouth every 8 hours, hydralazine when necessary (10) Aspiration pneumonia ICD Code: J69.0 Status: Resolved Plan: Recent status post treatment with IV cefepime and Levaquin, antibiotics discontinued on 06/16/16. Infectious disease consulted, appreciate recommendations. (11) Acute blood loss anemia ICD Code: D62 Status: Resolved Plan: Secondary to retroperitoneal bleed. Now resolved. Continue to monitor H &H. (12) Acute thrombosis of left basilic vein ICD Code: I82.612 Status: Acute Plan: Right cephalic vein superficial thrombosis, left basilic vein thrombus, posterior tibial thrombus. Hematology consulted, appreciate recommendations. Continue aspirin. The patient is on prophylactic dose heparin 5000 units subcutaneous twice a day. Monitor for any potential bleed. (13) Acute thrombosis of right cephalic vein ICD Code: I82.611 Status: Acute Plan: As above. (14) Diabetes mellitus ICD Code: E11.9 Status: Chronic Plan: Hemoglobin A1c 7.1. Diabetes mellitus controlled but with uncontrolled blood sugars above 200. I will increase the Levemir dose to 10 units subcutaneous twice a day and continue SSI with insulin NovoLog. (15) Sinus pause ICD Code: I45.5 Status: Acute Plan: Patient had one episode of 2 very short left sinus pauses. Telemetry reviewed by me. Sinus pause has not repeated itself. Continue to monitor on telemetry. If sinus pause continues then we will continue beta daniel. 06/23/16 No further pauses on telemetry. (16) Wound of skin ICD Code: R23.8 Status: Acute Plan: Patient has a small open area under trach collar. Will clean with Betadine and leave to open area - case discussed with RN. (17) Leukocytosis ICD Code: D72.829 Status: Acute Plan: WBC trending up from 11.8-2.6. Patient has been afebrile, perhaps some more rhonchi and sputum production noticed. Will continue to monitor CBC with differential. If continues to trend up then will obtain further studies. Assessment and Plan GI prophylaxis: Continue PPI. DVT prophylaxis: SCDs, no chemoprophylaxis given retroperitoneal bleed with hemorrhagic shock. Discharge Planning continue to monitor in the medical floor. 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
[2016-06-25] MEDS: SODIUM CHLORIDE 0.9% FLUSH 5 ML FLUSH IV FLUSH SCH ×2 (15:05→20:57)
--- NOTE | 2016-06-25 16:08 | HHI.NPPN ---
Subjective History of Present Illness 61 year old with ARF, CHF, Respiratory failure Additional Remarks Tolerated HD yesterday. With trach, non-communicative. Objective Data Data 06/24/16 06/25/16 19:00 07:00 Intake Total 553 ml Output Total 4000 ml 50 ml Balance -4000 ml 503 ml Intake Oral 0 ml Tube Feeding 553 ml Output Urine Total 50 ml Hemodialysis 4000 ml # Voids 0 # Bowel Movements 1 Vital Signs Date Time Temp Pulse Resp B/P Pulse Ox O2 Delivery O2 Flow Rate FiO2 06/25/16 12:00 97.6 86 18 121/69 95 06/25/16 09:15 94 T-piece 28 06/25/16 08:00 99.3 89 18 140/72 99 06/25/16 04:00 98.1 95 22 132/73 95 06/25/16 04:00 T-Piece 28 06/25/16 00:00 98.7 86 20 110/55 95 06/24/16 20:00 98.9 97 18 115/74 97 06/24/16 20:00 T-Piece 6.00 28 06/24/16 20:00 99 06/24/16 19:37 89 -: 06/25/16 0622 06/24/16 0636 Physical Exam General Appearance: No Acute Distress, Comfortable, Obese Neck Neck Exam: Neck Supple Pulmonary Resp Exam: Rhonchi, Decreased Bases, Diminished Breath Sounds, Poor Inspiratory Effort Cardiology CV Exam: Tachycardia Gastrointestinal/Abdomen GI Exam: Soft, Non-Tender, Distended Extremeties Extremities Exam: Moderate Edema, Pitting Edema, Dependent Edema Neurologic Neuro Exam: Unresponsive Assessment/Plan Problem List: (1) Acute renal failure Plan: Patient has oliguric acute renal failure BUN and Creatinine remain high Continue with HD Tolerating HD yesterday, continue TTS HD. Multiple CVA Anoxic Encephalopathy S/P Trach. 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 Plan: Cardiology following (4) Acute hypoxemic respiratory failure Plan: Off ventilator (5) Hypertensive emergency Plan: BP improved (6) Diabetes mellitus Plan: Continue monitor blood glucose (7) CAD (coronary artery disease) Plan: Presented with STEMI, follow with cardiology (8) Subsequent ST elevation (STEMI) myocardial infarction of anterior wall Plan: Planned transfer to when stable. No intervention performed here. Problem Qualifiers (1) Acute renal failure: Qualified Code: N17.0 - Acute renal failure with tubular necrosis (2) Diabetes mellitus: Qualified Code: E13.8 - Diabetes mellitus of other type with complication, unspecified nursing home insulin use status (3) CAD (coronary artery disease): Qualified Code: I25.10 - Coronary artery disease, angina presence unspecified, unspecified vessel or lesion type, unspecified whether [place] or transplanted heart Mahin Kim MD Jun 25, 2016 16:08
[2016-06-25] MEDS: CHLORHEXIDINE 0.12% (ORAL KIT) 15 ML CUP MT SCH (20:00)
[2016-06-26] VITALS (9 sets, daily range): BP systolic 114–149; BP diastolic 63–83; PULSE 77–87; RESP 16–28; TEMP 97.3–98.9; O2SAT 93–97
[2016-06-26] MEDS: SODIUM CHLORIDE 0.9% FLUSH 5 ML FLUSH IV FLUSH PRN (03:16)
[2016-06-26] MEDS: ONDANSETRON HCL 4 MG/2 ML VIAL IV PRN (03:16)
[2016-06-26] MEDS: RESP: ALBUTEROL 2.5 MG/IPRATROPIUM 0.5 MG NEB (PRN) INH (03:27)
[2016-06-26] MEDS: hydrALAZINE HCL 25 MG TAB PO SCH ×3 (05:06→21:29)
[2016-06-26] MEDS: INSULIN ASPART SUPPLEMENTAL SCALE SQ SCH ×4 (05:07→21:00)
[2016-06-26] MEDS: LABETALOL HCL 200 MG TAB PO SCH ×3 (05:07→21:29)
[2016-06-26 07:42] LABS: HEMATOCRIT 35.3 % (39.0-51.0); HEMO FLAGS AUTO DIFF; MEAN CELL VOLUME 89.2 FL (80.0-100.0); MEAN CORPUSCULAR HEMOGLOBIN 28.6 PG (27.0-34.0); MEAN CORPUSCULAR HGB CONC 32.1 % (32.0-36.0); PLATELET COUNT 301 TH/MM3 (150-450); RED BLOOD COUNT 3.96 MIL/MM3 (4.50-5.90); RED CELL DISTRIBUTION WIDTH 17.3 % (11.6-17.2); WHITE BLOOD COUNT 13.9 TH/MM3 (4.0-11.0)
[2016-06-26 07:44] LABS: ALKALINE PHOSPHATASE 126 U/L (45-117); ALT (GPT) 28 U/L (12-78); ANION GAP 14 MEQ/L (5-15); AST (GOT) 27 U/L (15-37); BICARBONATE 25.7 MEQ/L (21.0-32.0); BLOOD UREA NITROGEN 113 MG/DL (7-18); CHLORIDE 94 MEQ/L (98-107); GLOMERULAR FILTRATION RATE 12 ML/MIN (>89); MAGNESIUM 2.6 MG/DL (1.5-2.5); POTASSIUM 4.8 MEQ/L (3.5-5.1); SODIUM (NA) 134 MEQ/L (136-145); TOTAL BILIRUBIN ADULT 0.6 MG/DL (0.2-1.0)
[2016-06-26] MEDS: CHLORHEXIDINE 0.12% (ORAL KIT) 15 ML CUP MT SCH ×2 (08:00→20:00)
[2016-06-26 08:17] LABS: BASOPHILS 2 % (0-2); EOSINOPHILS 1 % (0-4); NEUTROPHIL # MANUAL DIFF 11.4 TH/MM3 (1.8-7.7); POLYS (SEG NEUTROPHILS) 82 % (16-70); WBC DIFF SAMPLE 100
[2016-06-26 08:18] LABS: PLATELET ESTIMATE SMEAR NORMAL (NORMAL); PLATELET MORPHOLOGY NORMAL (NORMAL); SCAN/DIFF FINAL DIFF MANUAL
[2016-06-26] MEDS: DILTIAZEM HCL 60 MG TAB PO SCH ×4 (09:00→21:00)
[2016-06-26] MEDS: ASPIRIN 81 MG CHEW TAB CHEW SCH (09:14)
[2016-06-26] MEDS: PANTOPRAZOLE SODIUM 40 MG VIAL IV PUSH SCH (09:14)
[2016-06-26] MEDS: HEPARIN SODIUM - SQ 10,000 UNITS/ML VIAL SQ SCH ×2 (09:15→21:29)
[2016-06-26] MEDS: SODIUM CHLORIDE 0.9% FLUSH 5 ML FLUSH IV FLUSH SCH ×2 (09:15→21:30)
[2016-06-26] MEDS: INSULIN DETEMIR 100 UNITS/ML VIAL SQ SCH ×2 (09:15→21:28)
[2016-06-26] MEDS: NYSTATIN 100,000 U/GM PWD 15 GM BTL TOPICAL SCH ×2 (09:16→21:00)
[2016-06-26] MEDS: ARTIFICIAL TEARS OPTH SOLN 15 ML BTL EACH EYE SCH ×3 (09:16→17:20)
--- NOTE | 2016-06-26 09:35 | RADRPT ---
EXAM DATE/TIME: 06/26/2016 08:39 [place] COMPARISON: CHEST SINGLE AP, June 13, 2016, 5:00. INDICATIONS : Shortness of breath. MEDICAL HISTORY : Myocardial infarction. SURGICAL HISTORY : None. ENCOUNTER: Initial ACUITY: 1 day PAIN SCORE: Non-responsive. LOCATION: FINDINGS: A single view of the chest demonstrates the lungs to be symmetrically aerated without evidence of mas s, infiltrate or effusion. Trach tube and dialysis catheter are in good position. The cardiomediasti nal contours are unremarkable. Osseous structures are intact. CONCLUSION: No acute disease. Jonathon Peters MD FACR on June 26, 2016 at 9:33 Board Certified Radiologist. This report was verified electronically.
[2016-06-26 10:42] LABS: BACTERIA, URINE FEW /hpf; BLOOD, URINE MOD (NEG); COMMENT (UR) CULTURE INDICATED; CULTURE IF INDICATED CULTURE INDICATED; GLUCOSE,URINE NEG (NEG); HYALINE CAST, URINE 3 /lpf (RARE); KETONE, URINE NEG (NEG); NITRITE,URINE NEG (NEG); SQUAMOUS EPITHELIAL CELL URINE <1 /hpf (0-5); URINE COLOR YELLOW (YELLW/STRAW)
--- NOTE | 2016-06-26 12:21 | HHI.PR ---
Subjective Remarks Per RN report the patient vomited 1. at bedside, states that patient was awake for approximately 6 hours and able to track with eyes yesterday afternoon. As per the patient is also able to answer yes or now blinking his eyes. Patient has good O2 saturations, blood sugars in the 200s. Blood sugar still elevated in the 200s. Increased sputum production Objective Vitals Vital Signs Date Time Temp Pulse Resp B/P Pulse Ox O2 Delivery O2 Flow Rate FiO2 06/26/16 08:40 Trach Collar 6.00 28 T-Piece Humidified 06/26/16 08:00 85 06/26/16 08:00 98.2 87 20 129/63 97 06/26/16 04:00 97.6 84 20 142/83 97 06/26/16 04:00 T-Piece 28 06/26/16 00:00 97.3 87 22 134/70 94 06/26/16 00:00 T-Piece 28 06/25/16 22:36 97 T-piece 6.00 28 06/25/16 20:00 97.9 103 16 140/88 97 06/25/16 20:00 T-Piece 28 06/25/16 19:37 89 06/25/16 12:00 97.6 86 18 121/69 95 I/O 06/25/16 06/25/16 06/25/16 06/26/16 06/26/16 06/26/16 07:00 15:00 23:00 07:00 15:00 23:00 Intake Total 0 ml 520 ml Output Total 0 ml Balance 0 ml 520 ml Intake Oral 0 ml Tube Feeding 400 ml Tube Irrigant 120 ml Output Urine Total 0 ml # Voids 0 # Bowel Movements 0 3 Result Diagram: 06/26/16 0708 06/26/16 0708 Imaging Last Impressions Chest X-Ray 06/13/16 0600 Signed Impressions: Service Date/Time: Monday, June 13, 2016 05:00 - CONCLUSION: 1. Support apparatus unchanged. Minimal basilar dependent opacity in the lungs. Marek Bowers MD Chest CT 06/10/16 0000 Signed Impressions: Service Date/Time: Friday, June 10, 2016 16:11 - CONCLUSION: 1. Patchy infiltrates right upper lobe, left upper lobe and superior segments of the lower lobes. 2. Thickening of the right major fissure. 3. Bilateral gynecomastia. 4. Coronary artery calcifications. Carlitos Aguirre MD Liver Ultrasound 06/06/16 Signed Impressions: Service Date/Time: Monday, June 06, 2016 14:18 - CONCLUSION: 1. Liver slightly echogenic which can be seen with fatty infiltration. 2. Spleen not visualized. 3. There may be some minimal gallbladder sludge but no cholelithiasis or wall thickening. Carlitos Aguirre MD Upper Extremity Ultrasound 06/05/16 Signed Impressions: Service Date/Time: Sunday, June 05, 2016 11:01 - CONCLUSION: Occlusive thrombus right cephalic vein and left basilic vein Shahid Sin MD Lower Extremity Ultrasound 06/05/16 Signed Impressions: Service Date/Time: Sunday, June 05, 2016 16:05 - CONCLUSION: Normal examination. No evidence of DVT Shahid Sin MD Gastrostomy Tube Placement 06/02/16 Signed Impressions: Service Date/Time: Thursday, June 02, 2016 12:31 - CONCLUSION: Uncomplicated gastrostomy tube placement as above. Isidro Flor MD Catheter Placement X-Ray 06/02/16 Signed Impressions: Service Date/Time: Thursday, June 02, 2016 12:31 - CONCLUSION: 1. Uncomplicated line placement as above. 2. Patient currently has a modified left subclavian PermCath catheter that is being utilized as a temporary access. Isidro Flor MD Brain MRI 05/27/16 Signed Impressions: Service Date/Time: Friday, May 27, 2016 12:17 - CONCLUSION: Multifocal bilateral T2 signal abnormalities in restricted diffusion concerning for bilateral lacunar infarcts. Carlitos Aguirre MD Head CT 05/16/16 0000 Signed Impressions: Service Date/Time: Monday, May 16, 2016 08:30 - CONCLUSION: Suspected bilateral basal ganglia calcifications are unchanged. No evidence of hemorrhage, edema, mass or mass effect. Stephen Quintanilla MD Abdomen/Pelvis CT 05/16/16 0000 Signed Impressions: Service Date/Time: Monday, May 16, 2016 08:39 - CONCLUSION: There are large areas of hemorrhage including the left retroperitoneum and psoas muscle, within the mesentery and a smaller area in the right psoas muscle. They don't appear to be related to the abdominal aorta or the internal iliac arteries. There is a small focal collection hemorrhage adjacent to the left external iliac artery as it enters the pelvis, but I don't believe that is related to the large amount of hemorrhage seen elsewhere. The areas of hemorrhage are large and multi-focal. Stephen Quintanilla MD CT Angiography 05/06/16 0000 Signed Impressions: Service Date/Time: Saturday, May 07, 2016 00:04 - CONCLUSION: 1. Lobar consolidation bilaterally in the lower lobes. 2. Negative for pulmonary embolism. Michael Colbert MD Objective Remarks GENERAL: Non verbal, tracks down with eyes. SKIN: Warm and dry. HEAD: Normocephalic. EYES: No scleral icterus. No injection or drainage. NECK: Supple, trachea midline. No JVD or lymphadenopathy. CARDIOVASCULAR: Regular rate and rhythm without murmurs, gallops, or rubs. RESPIRATORY: Breath sounds equal bilaterally. No accessory muscle use. GASTROINTESTINAL: Abdomen soft, non-tender, nondistended. MUSCULOSKELETAL: No cyanosis, or edema. SCDs. NEURO: Patient awake with eyes opened, tracks with sight, paraplegic. Procedures 05/16/16 intubation 05/17/16 left internal jugular central line placement 05/17/16 right internal jugular Vas-Cath placement 05/17/16 right femoral arterial line placement 05/19/16 fiberoptic bronchoscopy 06/01/16 fiberoptic bronchoscopy 06/01/16 tracheostomy Medications and IVs Current Medications Medications (Trade) Dose Ordered Sig/Isabelle Route Start Time Stop Time Status Last Admin (NS Flush) 2 ml UNSCH PRN IV FLUSH 05/05/16 17:15 06/26/16 03:16 (NS Flush) 2 ml BID IV FLUSH 05/05/16 21:00 06/26/16 09:15 (Tears Naturale Opth Soln) 1 drop TID EACH EYE 05/05/16 18:00 06/26/16 09:16 (Zofran Inj) 4 mg Q6H PRN IV 05/05/16 17:15 06/26/16 03:16 (Aspirin Chew) 81 mg DAILY CHEW 05/06/16 09:00 06/26/16 09:14 (Lipitor) 20 mg DAILY PO 05/06/16 09:00 Hold 05/15/16 08:32 Miscellaneous 1 ea 1 ea UNSCH PRN OTHER 05/11/16 15:15 (NS 1000 ml Inj) 1,000 ml @ 0 mls/hr Q0M PRN IV 05/17/16 12:13 06/24/16 11:44 Heparin Sodium (Porcine) 8000 units 8,000 units UNSCH PRN IVF 05/17/16 12:15 Sodium Chloride 1,000 ml @ 200 mls/hr Q5H PRN IV 05/17/16 12:13 06/24/16 11:45 (NS 1000 ml Inj) 1,000 ml @ 0 mls/hr Q0M PRN IV 05/17/16 12:13 06/03/16 12:58 (Mannitol Inj) 12.5 gm UNSCH PRN IV 05/17/16 12:15 06/22/16 07:18 (Albumin 25% Inj) 25 gm UNSCH PRN IV 05/17/16 12:15 06/22/16 07:18 (NS Flush) 5 ml UNSCH PRN IVF 05/17/16 12:15 06/24/16 11:45 (Heparin Inj) UNSCH PRN .XX 05/17/16 12:15 06/24/16 11:44 (Gentamicin (Dialysis) Inj) 20 mg UNSCH PRN IV 05/17/16 12:15 06/24/16 11:45 (Zofran Inj) 4 mg UNSCH PRN IV 05/17/16 12:15 (Benadryl) 25 mg UNSCH PRN PO 05/17/16 12:15 (Gelfoam 12 Mm/7 Mm Top) 1 foam UNSCH PRN TOP 05/17/16 12:15 (Epogen Inj) 10,000 units UNSCH PRN IV 05/17/16 12:15 06/24/16 11:43 (Nitroglycerin 2% Oint) 2 inch Q6HR PRN TOPICAL 05/23/16 22:00 (Apresoline Inj) 10 mg Q1HR PRN IV PUSH 05/27/16 18:00 05/29/16 16:18 (Trandate Inj) 10 mg Q1HR PRN IV PUSH 05/27/16 17:30 06/03/16 19:51 (Trandate) 200 mg Q8HR PO 05/27/16 22:00 06/26/16 05:07 (Tylenol 650 Mg/ 20 ml Liq) 650 mg Q6H PRN TUBE 05/31/16 13:30 06/17/16 16:49 (Heparin Inj) 5,000 units Q12HR SQ 06/02/16 21:00 06/26/16 09:15 (NS Flush) UNSCH PRN IVF 06/02/16 14:30 06/08/16 07:34 (Heparin Inj) UNSCH PRN IVF 06/02/16 14:30 (Cardizem) 60 mg QID PO 06/06/16 13:00 06/26/16 09:00 (Protonix Inj) 40 mg Q24H IV PUSH 06/13/16 09:00 06/26/16 09:14 (Apresoline) 75 mg Q8HR PO 06/15/16 14:00 06/26/16 05:06 (D50w (Vial) Inj) 25 ml UNSCH PRN IV PUSH 06/21/16 15:15 (Glucagon Inj) 1 mg UNSCH PRN OTHER 06/21/16 15:15 (Mycostatin Powder) 1 applic Q12HR TOPICAL 06/23/16 11:15 06/26/16 09:16 (Peridex 0.12% Liq) 15 ml BID@08,20 MT 06/26/16 08:00 06/26/16 08:00 (Levemir Inj) 20 units BID SQ 06/26/16 09:00 06/26/16 09:15 Urinary Catheter: No Date of Insertion: Jun 17, 2016 Vascular Central Line Catheter: No A/P Problem List: (1) Anoxic-ischemic encephalopathy ICD Code: G93.1 Status: Acute Plan: Patient status post bilateral basal ganglia infarcts. Neurology following. Patient lethargic and hard to arouse. Neurologic status is unchanged. Patient's tolerating tube feedingson Nepro at 50 an ml's per hour. status post PEG tube placement. (2) CAD (coronary artery disease) ICD Code: I25.10 Status: Chronic Plan: She presented with EKG consistent with STEMI. The patient underwent emergent cardiac catheterization which showed mild to moderate CAD similar to cardiac catheterization observed in 2009. EKG changes likely consistent with hypertensive emergency. Not a candidate for anticoagulation due to retroperitoneal bleed. Continue aspirin 81 mg. 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 Status: Chronic Plan: As above. CT surgery consulted and cardiology following. (4) Retroperitoneal bleed ICD Code: R58 Status: Resolved Plan: Patient status post hemorrhagic shock after a large retroperitoneal bleed , acute blood loss anemia. Bleeding and shock have resolved. Continue to monitor H&H - stable. (5) Acute renal failure ICD Code: N17.9 Status: Acute Plan: Oliguric renal failure. Patient on hemodialysis. Continue with hemodialysis. BUN and creatinine still remain elevated and patient remains oliguric. Continue to monitor BUN and creatinine, strict input and output. Fu nephrology recommendations. Will need HD upon dialysis (6) Chronic diastolic congestive heart failure ICD Code: I50.32 Status: Chronic Plan: Continue beta daniel, aspirin, statin on hold. Stable. Echocardiogram performed on 05/06/16 showed a normal systolic function with ejection fraction of 55-60%. (7) Elevated LFTs ICD Code: R94.5 Status: Resolved Plan: Transaminitis resolved. continue to monitor LFT's. Hepatitis panel negative. Liver ultrasound obtained on 06/06/16 showed a slightly echogenic liver which can be seen with fatty infiltration. Spleen not visualized. Minimal gallbladder sludge but no cholelithiasis or wall thickening. (8) Basal ganglia infarction ICD Code: I63.9 Status: Acute Plan: Follow up neurology recommendations. Continue aspirin 81 mg. The patient is not a candidate for anticoagulation due to recent retroperitoneal bleed. (9) Hypertension ICD Code: I10 Status: Chronic Plan: Seems stable with appropriate control. Continue antihypertensive medications including hydralazine 75 mg by mouth every 8 hours, diltiazem 60 mg by mouth 4 times a day, Trileptal 1200 mg by mouth every 8 hours, hydralazine when necessary (10) Aspiration pneumonia ICD Code: J69.0 Status: Resolved Plan: Recent status post treatment with IV cefepime and Levaquin, antibiotics discontinued on 06/16/16. Infectious disease consulted, appreciate recommendations. (11) Acute blood loss anemia ICD Code: D62 Status: Resolved Plan: Secondary to retroperitoneal bleed. Now resolved. Continue to monitor H &H. Hemoglobin stable at 11.3 on 06/26 (12) Acute thrombosis of left basilic vein ICD Code: I82.612 Status: Acute Plan: Right cephalic vein superficial thrombosis, left basilic vein thrombus, posterior tibial thrombus. Hematology consulted, appreciate recommendations. Continue aspirin. The patient is on prophylactic dose heparin 5000 units subcutaneous twice a day. Monitor for any potential bleed. (13) Acute thrombosis of right cephalic vein ICD Code: I82.611 Status: Acute Plan: As above. (14) Diabetes mellitus ICD Code: E11.9 Status: Chronic Plan: Hemoglobin A1c 7.1. Diabetes still with uncontrolled hyperglycemia. Hemoglobin A1c 7.1 on 06/26/16 (15) Sinus pause ICD Code: I45.5 Status: Acute Plan: Patient had one episode of 2 very short left sinus pauses. Telemetry reviewed by me. Sinus pause has not repeated itself. Continue to monitor on telemetry. If sinus pause continues then we will continue beta daniel. 06/23/16 No further pauses on telemetry. (16) Wound of skin ICD Code: R23.8 Status: Acute Plan: Patient has a small open area under trach collar. Continue to clean with Betadine and leave to open area. Wound seems to be better and healing. (17) Leukocytosis ICD Code: D72.829 Status: Acute Plan: WBC trending up from 11.8-2.6. Patient has been afebrile, perhaps some more rhonchi and sputum production noticed. Will continue to monitor CBC with differential. If continues to trend up then will obtain further studies. 06/26 WBC continues to trend up from 12.6 to 13.9 and patient has increased sputum production. No fevers. I check a chest x ray to r/o asp/HCAP PNA, check sputum culture and also check a urinalysis. Assessment and Plan GI prophylaxis: Continue PPI. DVT prophylaxis: SCDs, no chemoprophylaxis given retroperitoneal bleed with hemorrhagic shock. Discharge Planning continue to monitor in the medical floor. 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
--- NOTE | 2016-06-26 15:34 | HHI.PR ---
Subjective Remarks no change OPENS EYES , but no focus track ok Objective Vital Signs Date Time Temp Pulse Resp B/P Pulse Ox O2 Delivery O2 Flow Rate FiO2 06/26/16 12:00 98.9 86 16 149/75 97 06/26/16 08:40 Trach Collar 6.00 28 T-Piece Humidified 06/26/16 08:00 85 06/26/16 08:00 98.2 87 20 129/63 97 06/26/16 04:00 97.6 84 20 142/83 97 06/26/16 04:00 T-Piece 28 06/26/16 00:00 97.3 87 22 134/70 94 06/26/16 00:00 T-Piece 28 06/25/16 22:36 97 T-piece 6.00 28 06/25/16 20:00 97.9 103 16 140/88 97 06/25/16 20:00 T-Piece 28 06/25/16 19:37 89 I/O 06/25/16 06/25/16 06/25/16 06/26/16 06/26/16 06/26/16 07:00 15:00 23:00 07:00 15:00 23:00 Intake Total 0 ml 520 ml Output Total 0 ml Balance 0 ml 520 ml Intake Oral 0 ml Tube Feeding 400 ml Tube Irrigant 120 ml Output Urine Total 0 ml # Voids 0 # Bowel Movements 0 3 Result Diagram: 06/26/16 0708 06/26/16 0708 Objective Remarks GENERAL: SKIN: Warm and dry. HEAD: Atraumatic. Normocephalic. EYES: Pupils equal and round. No scleral icterus. No injection or drainage. ENT: No nasal bleeding or discharge. Mucous membranes pink and moist. NECK: Trachea midline. No JVD. tracheostomy in place CARDIOVASCULAR: Regular rate and rhythm. RESPIRATORY: No accessory muscle use. Clear to auscultation. Breath sounds equal bilaterally. GASTROINTESTINAL: Abdomen soft, non-tender, nondistended. Hepatic and splenic margins not palpable. MUSCULOSKELETAL: Extremities without clubbing, cyanosis, or edema. No obvious deformities. NEUROLOGICAL: Awake and alert. No obvious cranial nerve deficits. Motor grossly within normal limits. Five out of 5 muscle strength in the arms and legs. Normal speech. PSYCHIATRIC: Appropriate mood and affect; insight and judgment normal. Assessment and Plan Assessment and Plan respiratory failure s/p Tracheostomy PLAN 02 as needed pulmonary toilet outlook poor Kj Underwood MD Jun 26, 2016 15:34
--- NOTE | 2016-06-26 17:47 | HHI.NPPN ---
Subjective History of Present Illness 61 year old with ARF, CHF, Respiratory failure Additional Remarks on O2 With trach, non-communicative. Objective Data Data 06/25/16 06/26/16 19:00 07:00 Intake Total 520 ml Output Total 0 ml Balance 520 ml Tube Feeding 400 ml Tube Irrigant 120 ml Output Urine Total 0 ml # Bowel Movements 3 Vital Signs Date Time Temp Pulse Resp B/P Pulse Ox O2 Delivery O2 Flow Rate FiO2 06/26/16 14:15 95 T-piece 28 06/26/16 12:00 98.9 86 16 149/75 97 06/26/16 08:40 Trach Collar 6.00 28 T-Piece Humidified 06/26/16 08:00 85 06/26/16 08:00 98.2 87 20 129/63 97 06/26/16 04:00 97.6 84 20 142/83 97 06/26/16 04:00 T-Piece 28 06/26/16 00:00 97.3 87 22 134/70 94 06/26/16 00:00 T-Piece 28 06/25/16 22:36 97 T-piece 6.00 28 06/25/16 20:00 97.9 103 16 140/88 97 06/25/16 20:00 T-Piece 28 06/25/16 19:37 89 -: 06/26/16 0708 06/26/16 0708 Microbiology 06/26/16 Urine Culture, Received Pending Physical Exam General Appearance: No Acute Distress, Comfortable, Obese Neck Neck Exam: Neck Supple Pulmonary Resp Exam: Rhonchi, Decreased Bases, Diminished Breath Sounds, Poor Inspiratory Effort Cardiology CV Exam: Tachycardia Gastrointestinal/Abdomen GI Exam: Soft, Non-Tender, Distended Extremeties Extremities Exam: Moderate Edema, Pitting Edema, Dependent Edema Neurologic Neuro Exam: Unresponsive Assessment/Plan Problem List: (1) Acute renal failure Plan: Patient has oliguric acute renal failure BUN and Creatinine remain high Continue with HD Tolerating HD Sunday, continue TTS HD. Multiple CVA Anoxic Encephalopathy S/P Trach. 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 Plan: Cardiology following (4) Acute hypoxemic respiratory failure Plan: Off ventilator (5) Hypertensive emergency Plan: BP improved (6) Diabetes mellitus Plan: Continue monitor blood glucose (7) CAD (coronary artery disease) Plan: Presented with STEMI, follow with cardiology (8) Subsequent ST elevation (STEMI) myocardial infarction of anterior wall Problem Qualifiers (1) Acute renal failure: Qualified Code: N17.0 - Acute renal failure with tubular necrosis (2) Diabetes mellitus: Qualified Code: E13.8 - Diabetes mellitus of other type with complication, unspecified long-term insulin use status (3) CAD (coronary artery disease): Qualified Code: I25.10 - Coronary artery disease, angina presence unspecified, unspecified vessel or lesion type, unspecified whether [place] or transplanted heart Linda Mcintosh MD Jun 26, 2016 17:47
[2016-06-27] VITALS (8 sets, daily range): BP systolic 106–141; BP diastolic 59–78; PULSE 81–92; RESP 17–24; TEMP 97.8–99.3; O2SAT 96–99
[2016-06-27] MEDS: hydrALAZINE HCL 25 MG TAB PO SCH ×3 (06:34→22:02)
[2016-06-27] MEDS: LABETALOL HCL 200 MG TAB PO SCH ×3 (06:34→22:02)
[2016-06-27] MEDS: INSULIN ASPART SUPPLEMENTAL SCALE SQ SCH ×4 (06:35→20:18)
[2016-06-27] MEDS: CHLORHEXIDINE 0.12% (ORAL KIT) 15 ML CUP MT SCH ×2 (08:00→20:00)
[2016-06-27 08:13] LABS: AUTOMATED NEUTROPHIL # 8.3 TH/MM3 (1.8-7.7); BASOPHIL # 0.1 TH/MM3 (0-0.2); BASOPHIL % 0.7 % (0.0-2.0); EOSINOPHIL # 0.2 TH/MM3 (0-0.4); EOSINOPHIL % 1.9 % (0.0-4.0); HEMATOCRIT 35.4 % (39.0-51.0); HEMO FLAGS DIFF FINAL; LYMPH % 15.3 % (9.0-44.0); LYMPHOCYTE # 1.7 TH/MM3 (1.0-4.8); MEAN CELL VOLUME 91.8 FL (80.0-100.0); MEAN CORPUSCULAR HEMOGLOBIN 29.4 PG (27.0-34.0); MONO % 8.4 % (0.0-8.0); NEUT % 73.7 % (16.0-70.0); PLATELET COUNT 329 TH/MM3 (150-450); RED BLOOD COUNT 3.86 MIL/MM3 (4.50-5.90); RED CELL DISTRIBUTION WIDTH 18.2 % (11.6-17.2); WHITE BLOOD COUNT 11.3 TH/MM3 (4.0-11.0)
[2016-06-27 08:17] LABS: ALT (GPT) 30 U/L (12-78); ANION GAP 19 MEQ/L (5-15); AST (GOT) 28 U/L (15-37); BICARBONATE 24.9 MEQ/L (21.0-32.0); BLOOD UREA NITROGEN 136 MG/DL (7-18); CHLORIDE 91 MEQ/L (98-107); GLOMERULAR FILTRATION RATE 11 ML/MIN (>89); MAGNESIUM 2.8 MG/DL (1.5-2.5); POTASSIUM 5.2 MEQ/L (3.5-5.1); SODIUM (NA) 135 MEQ/L (136-145)
[2016-06-27 08:18] LABS: ALKALINE PHOSPHATASE 129 U/L (45-117); TOTAL BILIRUBIN ADULT 0.5 MG/DL (0.2-1.0)
[2016-06-27] MEDS: DILTIAZEM HCL 60 MG TAB PO SCH ×4 (09:00→20:19)
[2016-06-27] MEDS: ARTIFICIAL TEARS OPTH SOLN 15 ML BTL EACH EYE SCH ×3 (09:00→17:19)
[2016-06-27] MEDS ORDERED: CEFEPIME INJ 1,000 MG in SODIUM CHLORIDE 0.9% INJ 100 ML IV SCH (09:45)
--- NOTE | 2016-06-27 10:05 | HHI.PR ---
Subjective Remarks fu cva, respiratory failure, leukocytosis, ischemic - anoxic encephalopathy no major overnight events afebrile WBC still elevated but lower UA (+) Objective Vitals Vital Signs Date Time Temp Pulse Resp B/P Pulse Ox O2 Delivery O2 Flow Rate FiO2 06/27/16 04:20 98.6 84 24 122/73 98 06/27/16 00:18 98.3 81 20 141/78 98 06/26/16 20:39 98.3 77 24 114/63 93 06/26/16 20:00 80 06/26/16 20:00 Trach Collar 6.00 28 06/26/16 17:50 95 T-piece 6.00 28 06/26/16 16:00 97.8 78 28 125/77 95 06/26/16 14:15 95 T-piece 28 06/26/16 12:00 98.9 86 16 149/75 97 I/O 06/26/16 06/26/16 06/26/16 06/27/16 06/27/16 06/27/16 07:00 15:00 23:00 07:00 15:00 23:00 Intake Total 0 ml Output Total 100 ml 50 ml 60 ml Balance -100 ml -50 ml -60 ml Intake Oral 0 ml Output Urine Total 100 ml 50 ml 60 ml # Bowel Movements 1 1 Result Diagram: 06/27/16 0655 06/27/16 0655 Imaging Chest x-ray obtained on 06/26/16 and reviewed by me shows no evidence of mass, infiltrate or effusion. Objective Remarks GENERAL: Non verbal, tracks down with eyes. SKIN: Warm and dry. HEAD: Normocephalic. EYES: No scleral icterus. No injection or drainage. NECK: Supple, trachea midline. No JVD or lymphadenopathy. CARDIOVASCULAR: Regular rate and rhythm without murmurs, gallops, or rubs. RESPIRATORY: Breath sounds equal bilaterally. No accessory muscle use. GASTROINTESTINAL: Abdomen soft, non-tender, nondistended. MUSCULOSKELETAL: No cyanosis, or edema. SCDs. NEURO: Patient awake with eyes opened, tracks with sight, paraplegic. Procedures 05/16/16 intubation 05/17/16 left internal jugular central line placement 05/17/16 right internal jugular Vas-Cath placement 05/17/16 right femoral arterial line placement 05/19/16 fiberoptic bronchoscopy 06/01/16 fiberoptic bronchoscopy 06/01/16 tracheostomy Medications and IVs Current Medications Medications (Trade) Dose Ordered Sig/Isabelle Route Start Time Stop Time Status Last Admin (NS Flush) 2 ml UNSCH PRN IV FLUSH 05/05/16 17:15 06/26/16 03:16 (NS Flush) 2 ml BID IV FLUSH 05/05/16 21:00 06/26/16 21:30 (Tears Naturale Opth Soln) 1 drop TID EACH EYE 05/05/16 18:00 06/26/16 17:20 (Zofran Inj) 4 mg Q6H PRN IV 05/05/16 17:15 06/26/16 03:16 (Aspirin Chew) 81 mg DAILY CHEW 05/06/16 09:00 06/26/16 09:14 (Lipitor) 20 mg DAILY PO 05/06/16 09:00 Hold 05/15/16 08:32 Miscellaneous 1 ea 1 ea UNSCH PRN OTHER 05/11/16 15:15 (NS 1000 ml Inj) 1,000 ml @ 0 mls/hr Q0M PRN IV 05/17/16 12:13 06/24/16 11:44 Heparin Sodium (Porcine) 8000 units 8,000 units UNSCH PRN IVF 05/17/16 12:15 Sodium Chloride 1,000 ml @ 200 mls/hr Q5H PRN IV 05/17/16 12:13 06/24/16 11:45 (NS 1000 ml Inj) 1,000 ml @ 0 mls/hr Q0M PRN IV 05/17/16 12:13 06/03/16 12:58 (Mannitol Inj) 12.5 gm UNSCH PRN IV 05/17/16 12:15 06/22/16 07:18 (Albumin 25% Inj) 25 gm UNSCH PRN IV 05/17/16 12:15 06/22/16 07:18 (NS Flush) 5 ml UNSCH PRN IVF 05/17/16 12:15 06/24/16 11:45 (Heparin Inj) UNSCH PRN .XX 05/17/16 12:15 06/24/16 11:44 (Gentamicin (Dialysis) Inj) 20 mg UNSCH PRN IV 05/17/16 12:15 06/24/16 11:45 (Zofran Inj) 4 mg UNSCH PRN IV 05/17/16 12:15 (Benadryl) 25 mg UNSCH PRN PO 05/17/16 12:15 (Gelfoam 12 Mm/7 Mm Top) 1 foam UNSCH PRN TOP 05/17/16 12:15 (Epogen Inj) 10,000 units UNSCH PRN IV 05/17/16 12:15 06/24/16 11:43 (Nitroglycerin 2% Oint) 2 inch Q6HR PRN TOPICAL 05/23/16 22:00 (Apresoline Inj) 10 mg Q1HR PRN IV PUSH 05/27/16 18:00 05/29/16 16:18 (Trandate Inj) 10 mg Q1HR PRN IV PUSH 05/27/16 17:30 06/03/16 19:51 (Trandate) 200 mg Q8HR PO 05/27/16 22:00 06/27/16 06:34 (Tylenol 650 Mg/ 20 ml Liq) 650 mg Q6H PRN TUBE 05/31/16 13:30 06/17/16 16:49 (Heparin Inj) 5,000 units Q12HR SQ 06/02/16 21:00 06/26/16 21:29 (NS Flush) UNSCH PRN IVF 06/02/16 14:30 06/08/16 07:34 (Heparin Inj) UNSCH PRN IVF 06/02/16 14:30 (Cardizem) 60 mg QID PO 06/06/16 13:00 06/26/16 21:00 (Protonix Inj) 40 mg Q24H IV PUSH 06/13/16 09:00 06/26/16 09:14 (Apresoline) 75 mg Q8HR PO 06/15/16 14:00 06/27/16 06:34 (D50w (Vial) Inj) 25 ml UNSCH PRN IV PUSH 06/21/16 15:15 (Glucagon Inj) 1 mg UNSCH PRN OTHER 06/21/16 15:15 (Mycostatin Powder) 1 applic Q12HR TOPICAL 06/23/16 11:15 06/26/16 21:00 (Peridex 0.12% Liq) 15 ml BID@08,20 MT 06/26/16 08:00 06/26/16 20:00 (Levemir Inj) 20 units BID SQ 06/26/16 09:00 06/26/16 21:28 Urinary Catheter: Yes Assessment to: Continue Blake insert reason: Prolonged Immobilization Date of Insertion: Jun 17, 2016 Vascular Central Line Catheter: No A/P Problem List: (1) Anoxic-ischemic encephalopathy ICD Code: G93.1 Status: Acute (2) CAD (coronary artery disease) ICD Code: I25.10 Status: Chronic (3) 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 Status: Chronic (4) Retroperitoneal bleed ICD Code: R58 Status: Resolved (5) Acute renal failure ICD Code: N17.9 Status: Acute (6) Chronic diastolic congestive heart failure ICD Code: I50.32 Status: Chronic (7) Elevated LFTs ICD Code: R94.5 Status: Resolved (8) Basal ganglia infarction ICD Code: I63.9 Status: Acute (9) Hypertension ICD Code: I10 Status: Chronic (10) Aspiration pneumonia ICD Code: J69.0 Status: Resolved (11) Acute blood loss anemia ICD Code: D62 Status: Resolved (12) Acute thrombosis of left basilic vein ICD Code: I82.612 Status: Acute (13) Acute thrombosis of right cephalic vein ICD Code: I82.611 Status: Acute (14) Diabetes mellitus ICD Code: E11.9 Status: Chronic (15) Sinus pause ICD Code: I45.5 Status: Resolved (16) Wound of skin ICD Code: R23.8 Status: Acute (17) Leukocytosis ICD Code: D72.829 Status: Acute (18) Catheter-associated urinary tract infection ICD Code: T83.511A Status: Acute Plan: Urinalysis shows hazy urine with large leukocyte esterase, 145 white blood cells and moderate urine budding yeast. I will start the patient IV cefepime, IV fluconazole adjusted for intermittent hemodialysis, reconsult infectious disease, replace Blake catheter. Follow-up urine culture which is pending. (19) Hyperkalemia ICD Code: E87.5 Status: Acute Plan: Potassium level is 5.2, mildly elevated. The patient is on hemodialysis. Continue to monitor BMP. (20) Hyperphosphatemia ICD Code: E83.39 Status: Acute Plan: Due to acute kidney injury and decreased elimination. Phosphorus trending up. Defer management to nephrology. The patient most likely needs to be started on phosphate binder. (21) Hypermagnesemia ICD Code: E83.41 Status: Acute Plan: Magnesium level elevated at 2.8. Levels trending up. Highly fair management to nephrology. The patient currently on hemodialysis. Assessment and Plan (1) Anoxic-ischemic encephalopathy Plan: Patient status post bilateral basal ganglia infarcts. Neurology following. Patient lethargic and hard to arouse. Neurologic status is unchanged. Patient's tolerating tube feedingson Nepro at 50 an ml's per hour. status post PEG tube placement. (2) CAD (coronary artery disease) Plan: Patient presented with EKG consistent with STEMI. The patient underwent emergent cardiac catheterization which showed mild to moderate CAD similar to cardiac catheterization observed in 2010. EKG changes likely consistent with hypertensive emergency. Not a candidate for anticoagulation due to retroperitoneal bleed. Continue aspirin 81 mg. Cardiology following. 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 CT surgery consulted and cardiology following. (4) Retroperitoneal bleed Plan: Patient status post hemorrhagic shock after a large retroperitoneal bleed , acute blood loss anemia. Sp transfusion of 8 units of PRBC. Bleeding and shock have resolved. Continue to monitor H&H - stable. (5) Acute renal failure Plan: Oliguric renal failure. Patient on hemodialysis. Continue with hemodialysis. BUN and creatinine still remain elevated and patient remains oliguric. Continue to monitor BUN and creatinine, strict input and output. Fu nephrology recommendations. Will need HD upon dialysis (6) Chronic diastolic congestive heart failure Plan: Continue beta daniel, aspirin, statin on hold. Stable. Echocardiogram performed on 05/06/16 showed a normal systolic function with ejection fraction of 55-60%. (7) Elevated LFTs Plan: Transaminitis resolved. continue to monitor LFT's. Hepatitis panel negative. Liver ultrasound obtained on 06/06/16 showed a slightly echogenic liver which can be seen with fatty infiltration. Spleen not visualized. Minimal gallbladder sludge but no cholelithiasis or wall thickening. (8) Basal ganglia infarction Plan: Follow up neurology recommendations. Continue aspirin 81 mg. The patient is not a candidate for anticoagulation due to recent retroperitoneal bleed. (9) Hypertension Plan: Seems stable with appropriate control. Continue antihypertensive medications including hydralazine 75 mg by mouth every 8 hours, diltiazem 60 mg by mouth 4 times a day, Trileptal 1200 mg by mouth every 8 hours, hydralazine when necessary (10) Aspiration pneumonia Plan: Recent status post treatment with IV cefepime and Levaquin, antibiotics discontinued on 06/16/16. Infectious disease consulted, signed off. (11) Acute blood loss anemia Plan: Secondary to retroperitoneal bleed. Now resolved. Continue to monitor H &H. Hemoglobin stable at 11.3 on 06/26 (12) Acute thrombosis of left basilic vein Plan: Right cephalic vein superficial thrombosis, left basilic vein thrombus, posterior tibial thrombus. Hematology consulted, appreciate recommendations. Continue aspirin. The patient is on prophylactic dose heparin 5000 units subcutaneous twice a day. Monitor for any potential bleed. (13) Acute thrombosis of right cephalic vein Plan: As above. (14) Diabetes mellitus Plan: Hemoglobin A1c 7.1. Diabetes still with uncontrolled hyperglycemia. Hemoglobin A1c 7.1 on 06/26/16 (15) Sinus pause Plan: Patient had one episode of 2 very short left sinus pauses. Telemetry reviewed by me. Sinus pause has not repeated itself. Continue to monitor on telemetry. If sinus pause continues then we will continue beta daniel. 06/23/16 No further pauses on telemetry. (16) Wound of skin Plan: Patient has a small open area under trach collar. Continue to clean with Betadine and leave to open area. Wound seems to be better and healing. (17) Leukocytosis Plan: WBC trending up from 11.8-2.6. Patient has been afebrile, perhaps some more rhonchi and sputum production noticed. Will continue to monitor CBC with differential. If continues to trend up then will obtain further studies. 06/26 WBC continues to trend up from 12.6 to 13.9 and patient has increased sputum production. No fevers. I check a chest x ray to r/o asp/HCAP PNA, check sputum culture and also check a urinalysis. 06/27 WBC now down to 11.3. No fevers. UA (+) with budding yeasts. Start the patient on IV Cefepime, IV Fluconazole, Consult infectious disease and replace blake catheter. Continue to monitor CBC with differential. GI prophylaxis: Continue PPI. DVT prophylaxis: SCDs, no chemoprophylaxis given retroperitoneal bleed with hemorrhagic shock. Discharge Planning continue to monitor in the medical floor. 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
[2016-06-27] MEDS ORDERED: FLUCONAZOLE 100 MG PREMIX BAG 50 ML IV SCH (11:00)
[2016-06-27] MEDS: HEPARIN SODIUM - IV 10,000 UNITS/10 ML VIAL PRN (12:46)
[2016-06-27] MEDS: GENTAMICIN SULFATE (DIALYSIS USE ONLY) 20 MG/2 ML VIAL IV PRN (12:46)
[2016-06-27] MEDS: EPOETIN ALFA 10,000 UNITS/ML VIAL IV PRN (12:46)
[2016-06-27] MEDS: PANTOPRAZOLE SODIUM 40 MG VIAL IV PUSH SCH (13:27)
[2016-06-27] MEDS: HEPARIN SODIUM - SQ 10,000 UNITS/ML VIAL SQ SCH ×2 (13:28→20:17)
[2016-06-27] MEDS: NYSTATIN 100,000 U/GM PWD 15 GM BTL TOPICAL SCH ×2 (13:29→20:19)
[2016-06-27] MEDS: INSULIN DETEMIR 100 UNITS/ML VIAL SQ SCH ×2 (13:29→20:17)
[2016-06-27] MEDS: ASPIRIN 81 MG CHEW TAB CHEW SCH (13:30)
[2016-06-27] MEDS: SODIUM CHLORIDE 0.9% FLUSH 5 ML FLUSH IV FLUSH SCH ×2 (13:30→20:17)
[2016-06-27] MEDS ORDERED: CIPROFLOXACIN 200 MG PREMIX 100 ML IV SCH (16:00)
[2016-06-27] MEDS: FLUCONAZOLE 200 MG TAB PO SCH (17:19)
--- NOTE | 2016-06-27 17:44 | HHI.IDPN ---
Subjective Subjective Remarks Mr. Short is a 61-year-old male who was admitted on May 05, 2016. Patient's past medical history significant for hypertensive heart disease, hypertension, type 2 diabetes and spinal stenosis. Patient presented to [facility] on the day of admission with history of acute onset of diaphoresis chest pain and syncope. Patient now has retroperitoneal hematoma, IC bleed. ID following for possible sepsis. Reconsulted for leucocytosis and cloudy urine concern for UTI. Notes reviewed D/W RN. Reconsulted by as above. Dw RN and family in room. Clinically appears stable. Secretions small, thick, light yellow not frequent suctioning. On T-piece. No fevers WBC trending downwards. No rash No diarrhea Antibiotics Levaquin Cefepime Lines Line sites with no e/o infection Past Medical History reviewed Allergies: Coded Allergies: Penicillin (Verified Allergy, Mild, "I GO CRAZY", 09/01/15) Objective . Vital Signs Date Time Temp Pulse Resp B/P Pulse Ox O2 Delivery O2 Flow Rate FiO2 06/27/16 16:00 98.3 92 18 116/75 98 06/27/16 13:17 99.3 90 17 106/59 96 06/27/16 09:47 96 T-piece 6.00 28 06/27/16 09:41 83 06/27/16 08:00 T-Piece 6.00 26 06/27/16 04:20 98.6 84 24 122/73 98 06/27/16 00:18 98.3 81 20 141/78 98 06/26/16 20:39 98.3 77 24 114/63 93 06/26/16 20:00 80 06/26/16 20:00 Trach Collar 6.00 28 06/26/16 17:50 95 T-piece 6.00 28 06/26/16 06/26/16 06/27/16 15:00 23:00 07:00 Intake Total 0 ml Output Total 100 ml 50 ml 60 ml Balance -100 ml -50 ml -60 ml Intake Oral 0 ml Output Urine Total 100 ml 50 ml 60 ml # Bowel Movements 1 1 . Laboratory Tests Test 06/26/16 06/27/16 07:08 06:55 White Blood Count 13.9 TH/MM3 11.3 TH/MM3 Red Blood Count 3.96 MIL/MM3 3.86 MIL/MM3 Hemoglobin 11.3 GM/DL 11.3 GM/DL Hematocrit 35.3 % 35.4 % Mean Corpuscular Volume 89.2 FL 91.8 FL Mean Corpuscular Hemoglobin 28.6 PG 29.4 PG Mean Corpuscular Hemoglobin 32.1 % 32.0 % Concent Red Cell Distribution Width 17.3 % 18.2 % Platelet Count 301 TH/MM3 329 TH/MM3 Mean Platelet Volume 8.1 FL 8.0 FL Neutrophils (%) (Auto) % 73.7 % Lymphocytes (%) (Auto) % 15.3 % Monocytes (%) (Auto) % 8.4 % Eosinophils (%) (Auto) % 1.9 % Basophils (%) (Auto) % 0.7 % Neutrophils # (Auto) TH/MM3 8.3 TH/MM3 Lymphocytes # (Auto) TH/MM3 1.7 TH/MM3 Monocytes # (Auto) TH/MM3 0.9 TH/MM3 Eosinophils # (Auto) TH/MM3 0.2 TH/MM3 Basophils # (Auto) TH/MM3 0.1 TH/MM3 CBC Comment AUTO DIFF DIFF FINAL Differential Total Cells 100 Counted Neutrophils % (Manual) 82 % Lymphocytes % 9 % Monocytes % 6 % Eosinophils % 1 % Basophils % 2 % Neutrophils # (Manual) 11.4 TH/MM3 Differential Comment FINAL DIFF MANUAL Platelet Estimate NORMAL Platelet Morphology Comment NORMAL Red Cell Morphology Comment NORMAL Hematology Comments Laboratory Tests Test 06/26/16 06/27/16 07:08 06:55 Sodium Level 134 MEQ/L 135 MEQ/L Potassium Level 4.8 MEQ/L 5.2 MEQ/L Chloride Level 94 MEQ/L 91 MEQ/L Carbon Dioxide Level 25.7 MEQ/L 24.9 MEQ/L Anion Gap 14 MEQ/L 19 MEQ/L Blood Urea Nitrogen 113 MG/DL 136 MG/DL Creatinine 5.78 MG/DL 6.26 MG/DL Estimat Glomerular Filtration 12 ML/MIN 11 ML/MIN Rate Random Glucose 212 MG/DL 205 MG/DL Calcium Level 9.5 MG/DL 9.7 MG/DL Phosphorus Level 6.9 MG/DL 8.0 MG/DL Magnesium Level 2.6 MG/DL 2.8 MG/DL Total Bilirubin 0.6 MG/DL 0.5 MG/DL Aspartate Amino Transf 27 U/L 28 U/L (AST/SGOT) Alanine Aminotransferase 28 U/L 30 U/L (ALT/SGPT) Alkaline Phosphatase 126 U/L 129 U/L Total Protein 7.7 GM/DL 7.6 GM/DL Albumin 3.2 GM/DL 3.2 GM/DL Microbiology Date/Time Procedure Status Source Growth 06/26/16 09:10 Urine Culture - Preliminary Resulted Urine Clean Catch Yeast Species Imaging Chest X-Ray 06/11/16 0600 Signed Impressions: Service Date/Time: Saturday, June 11, 2016 03:12 - CONCLUSION: No significant change has occurred. Ronald Tinsley MD Chest X-Ray 06/10/16 0000 Signed Impressions: Service Date/Time: Friday, June 10, 2016 07:53 - CONCLUSION: No significant change. Persistent hazy right upper lung opacity. Hal Finn MD Liver Ultrasound 06/06/16 0000 Signed Impressions: Service Date/Time: Monday, June 06, 2016 14:18 - CONCLUSION: 1. Liver slightly echogenic which can be seen with fatty infiltration. 2. Spleen not visualized. 3. There may be some minimal gallbladder sludge but no cholelithiasis or wall thickening. Carlitos Aguirre MD Upper Extremity Ultrasound 06/05/16 0000 Signed Impressions: Service Date/Time: Sunday, June 05, 2016 11:01 - CONCLUSION: Occlusive thrombus right cephalic vein and left basilic vein Shahid Sin MD Lower Extremity Ultrasound 06/05/16 0000 Signed Impressions: Service Date/Time: Sunday, June 05, 2016 16:05 - CONCLUSION: Normal examination. No evidence of DVT Shahid Sin MD Gastrostomy Tube Placement 06/02/16 0000 Signed Impressions: Service Date/Time: Thursday, June 02, 2016 12:31 - CONCLUSION: Uncomplicated gastrostomy tube placement as above. Isidro Flor MD Catheter Placement X-Ray 06/02/16 0000 Signed Impressions: Service Date/Time: Thursday, June 02, 2016 12:31 - CONCLUSION: 1. Uncomplicated line placement as above. 2. Patient currently has a modified left subclavian PermCath catheter that is being utilized as a temporary access. Isidro Flor MD Brain MRI 05/27/16 0000 Signed Impressions: Service Date/Time: Friday, May 27, 2016 12:17 - CONCLUSION: Multifocal bilateral T2 signal abnormalities in restricted diffusion concerning for bilateral lacunar infarcts. Carlitos Aguirre MD Head CT 05/16/16 0000 Signed Impressions: Service Date/Time: Monday, May 16, 2016 08:30 - CONCLUSION: Suspected bilateral basal ganglia calcifications are unchanged. No evidence of hemorrhage, edema, mass or mass effect. Stephen Quintanilla MD Abdomen/Pelvis CT 05/16/16 0000 Signed Impressions: Service Date/Time: Monday, May 16, 2016 08:39 - CONCLUSION: There are large areas of hemorrhage including the left retroperitoneum and psoas muscle, within the mesentery and a smaller area in the right psoas muscle. They don't appear to be related to the abdominal aorta or the internal iliac arteries. There is a small focal collection hemorrhage adjacent to the left external iliac artery as it enters the pelvis, but I don't believe that is related to the large amount of hemorrhage seen elsewhere. The areas of hemorrhage are large and multi-focal. Stephen Quintanilla MD CT Angiography 05/06/16 0000 Signed Impressions: Service Date/Time: Saturday, May 07, 2016 00:04 - CONCLUSION: 1. Lobar consolidation bilaterally in the lower lobes. 2. Negative for pulmonary embolism. Michael Colbert MD Physical Exam GENERAL: Laying in bed, spontaneously opens eyes. SKIN: No rashes, ecchymoses or lesions. Cool and dry. HEENT: Pupils equal round and reactive. No scleral icterus. No injection or drainage. NECK: Trachea midline. Trach site ok. Supple, no meningeal signs. CARDIOVASCULAR: HS audible. RESPIRATORY: Decreased BS both lung ye GASTROINTESTINAL: Abdomen soft, non-tender, nondistended. Obese MUSCULOSKELETAL: Extremities with wrinkling of skin noted. NEUROLOGICAL: Opens eyes spontaneously, tracks per family. Psych: could not be assessed IV line sites with no e/o infection. Assessment & Plan Remarks New fever ? drug fever, funguria. Enterobacter cloacae Pneumonia in past. Possible Cath associated UTI: telma glabrata Possible Central line associated Blood Stream Infection. Acute metabolic encephalopathy Acute resp failure, S/P trach, component of STU Acute kidney injury: prerenal from hemodynamic changes, chronic HTN related. DM2 uncontrolled: stress as additional factor. CAD non ischemic cardiomyopathy Anemia: acute due to Retroperitoneal bleed. Receiving blood transfusions. Recs: Continue Diflucan (need higher dose for C.glabrata in urine) DC Cipro. Change blake catheter. Recommend monthly and prn blake catheter change as for [facility] patients. D/W RN Will sign off please call back if any change in clinical condition. Tracy Mariee MD Jun 27, 2016 17:44
--- NOTE | 2016-06-27 18:40 | HHI.NPPN ---
Subjective History of Present Illness 61 year old with ARF, CHF, Respiratory failure Additional Remarks on O2 With trach, non-communicative. Objective Data Data 06/26/16 06/27/16 19:00 07:00 Intake Total 0 ml Output Total 100 ml 110 ml Balance -100 ml -110 ml Intake Oral 0 ml Output Urine Total 100 ml 110 ml # Bowel Movements 1 1 Vital Signs Date Time Temp Pulse Resp B/P Pulse Ox O2 Delivery O2 Flow Rate FiO2 06/27/16 18:06 98 T-piece 6.00 28 06/27/16 16:00 98.3 92 18 116/75 98 06/27/16 13:17 99.3 90 17 106/59 96 06/27/16 09:47 96 T-piece 6.00 28 06/27/16 09:41 83 06/27/16 08:00 T-Piece 6.00 26 06/27/16 04:20 98.6 84 24 122/73 98 06/27/16 00:18 98.3 81 20 141/78 98 06/26/16 20:39 98.3 77 24 114/63 93 06/26/16 20:00 80 06/26/16 20:00 Trach Collar 6.00 28 -: 06/27/16 0655 06/27/16 0655 Physical Exam General Appearance: No Acute Distress, Comfortable, Obese Neck Neck Exam: Neck Supple Pulmonary Resp Exam: Rhonchi, Decreased Bases, Diminished Breath Sounds, Poor Inspiratory Effort Cardiology CV Exam: Tachycardia Gastrointestinal/Abdomen GI Exam: Soft, Non-Tender, Distended Extremeties Extremities Exam: Moderate Edema, Pitting Edema, Dependent Edema Neurologic Neuro Exam: Unresponsive Assessment/Plan Problem List: (1) Acute renal failure Plan: Patient has oliguric acute renal failure BUN and Creatinine remain high Continue with HD Tolerating HD Today 3 L UF, continue TTS HD. Multiple CVA Anoxic Encephalopathy S/P Trach. 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
--- NOTE | 2016-06-27 19:28 | HHI.PR ---
Subjective Remarks no change OPENS EYES , but no focus track ok Objective Vital Signs Date Time Temp Pulse Resp B/P Pulse Ox O2 Delivery O2 Flow Rate FiO2 06/27/16 18:06 98 T-piece 6.00 28 06/27/16 16:00 98.3 92 18 116/75 98 06/27/16 13:17 99.3 90 17 106/59 96 06/27/16 09:47 96 T-piece 6.00 28 06/27/16 09:41 83 06/27/16 08:00 T-Piece 6.00 26 06/27/16 04:20 98.6 84 24 122/73 98 06/27/16 00:18 98.3 81 20 141/78 98 06/26/16 20:39 98.3 77 24 114/63 93 06/26/16 20:00 80 06/26/16 20:00 Trach Collar 6.00 28 I/O 06/26/16 06/26/16 06/26/16 06/27/16 06/27/16 06/27/16 07:00 15:00 23:00 07:00 15:00 23:00 Intake Total 0 ml 0 ml Output Total 100 ml 50 ml 60 ml 3000 ml Balance -100 ml -50 ml -60 ml -3000 ml Intake Oral 0 ml 0 ml Output Urine Total 100 ml 50 ml 60 ml Hemodialysis 3000 ml # Bowel Movements 1 1 Result Diagram: 06/27/1655 06/27/1655 Objective Remarks GENERAL: SKIN: Warm and dry. HEAD: Atraumatic. Normocephalic. EYES: Pupils equal and round. No scleral icterus. No injection or drainage. ENT: No nasal bleeding or discharge. Mucous membranes pink and moist. NECK: Trachea midline. No JVD. tracheostomy in place CARDIOVASCULAR: Regular rate and rhythm. RESPIRATORY: No accessory muscle use. Clear to auscultation. Breath sounds equal bilaterally. GASTROINTESTINAL: Abdomen soft, non-tender, nondistended. Hepatic and splenic margins not palpable. MUSCULOSKELETAL: Extremities without clubbing, cyanosis, or edema. No obvious deformities. NEUROLOGICAL: Awake and alert. No obvious cranial nerve deficits. Motor grossly within normal limits. Five out of 5 muscle strength in the arms and legs. Normal speech. PSYCHIATRIC: Appropriate mood and affect; insight and judgment normal. Assessment and Plan Assessment and Plan respiratory failure s/p Tracheostomy PLAN 02 as needed pulmonary toilet outlook poor Kj Underwood MD Jun 27, 2016 19:28
[2016-06-28] VITALS (8 sets, daily range): BP systolic 106–122; BP diastolic 52–68; PULSE 76–90; RESP 18–20; TEMP 98.1–99.4; O2SAT 93–99
[2016-06-28] MEDS: LABETALOL HCL 200 MG TAB PO SCH ×3 (06:19→22:00)
[2016-06-28] MEDS: hydrALAZINE HCL 25 MG TAB PO SCH ×3 (06:19→22:00)
[2016-06-28] MEDS: INSULIN ASPART SUPPLEMENTAL SCALE SQ SCH ×4 (06:20→22:01)
[2016-06-28 07:07] LABS: BASOPHIL # 0.1 TH/MM3 (0-0.2); BASOPHIL % 0.5 % (0.0-2.0); EOSINOPHIL # 0.1 TH/MM3 (0-0.4); EOSINOPHIL % 1.1 % (0.0-4.0); HEMATOCRIT 35.1 % (39.0-51.0); HEMO FLAGS DIFF FINAL; LYMPH % 18.6 % (9.0-44.0); LYMPHOCYTE # 2.1 TH/MM3 (1.0-4.8); MEAN CELL VOLUME 89.6 FL (80.0-100.0); MEAN CORPUSCULAR HEMOGLOBIN 29.1 PG (27.0-34.0); MEAN CORPUSCULAR HGB CONC 32.5 % (32.0-36.0); MONO % 10.1 % (0.0-8.0); NEUT % 69.7 % (16.0-70.0); PLATELET COUNT 315 TH/MM3 (150-450); RED BLOOD COUNT 3.91 MIL/MM3 (4.50-5.90); RED CELL DISTRIBUTION WIDTH 18.2 % (11.6-17.2); WHITE BLOOD COUNT 11.5 TH/MM3 (4.0-11.0)
[2016-06-28 07:40] LABS: ALT (GPT) 28 U/L (12-78); CHLORIDE 92 MEQ/L (98-107); MAGNESIUM 2.4 MG/DL (1.5-2.5); POTASSIUM 4.8 MEQ/L (3.5-5.1); SODIUM (NA) 136 MEQ/L (136-145)
[2016-06-28 07:43] LABS: ALKALINE PHOSPHATASE 126 U/L (45-117); ANION GAP 16 MEQ/L (5-15); AST (GOT) 33 U/L (15-37); BICARBONATE 27.7 MEQ/L (21.0-32.0); BLOOD UREA NITROGEN 96 MG/DL (7-18); GLOMERULAR FILTRATION RATE 14 ML/MIN (>89); TOTAL BILIRUBIN ADULT 0.5 MG/DL (0.2-1.0)
[2016-06-28] MEDS: CHLORHEXIDINE 0.12% (ORAL KIT) 15 ML CUP MT SCH ×2 (08:00→22:02)
[2016-06-28] MEDS: HEPARIN SODIUM - SQ 10,000 UNITS/ML VIAL SQ SCH ×2 (09:16→22:00)
[2016-06-28] MEDS: PANTOPRAZOLE SODIUM 40 MG VIAL IV PUSH SCH (09:16)
[2016-06-28] MEDS: DILTIAZEM HCL 60 MG TAB PO SCH ×4 (09:16→22:00)
[2016-06-28] MEDS: INSULIN DETEMIR 100 UNITS/ML VIAL SQ SCH ×2 (09:17→22:00)
[2016-06-28] MEDS: SODIUM CHLORIDE 0.9% FLUSH 5 ML FLUSH IV FLUSH SCH ×2 (09:21→22:01)
[2016-06-28] MEDS: ARTIFICIAL TEARS OPTH SOLN 15 ML BTL EACH EYE SCH ×3 (09:21→18:32)
[2016-06-28] MEDS: ASPIRIN 81 MG CHEW TAB CHEW SCH (09:32)
[2016-06-28] MEDS: NYSTATIN 100,000 U/GM PWD 15 GM BTL TOPICAL SCH ×2 (09:33→22:04)
--- NOTE | 2016-06-28 13:21 | HHI.PR ---
Subjective Remarks Deferred entry - patient seen earlier at 9:00 am No major overnight events patient is non verbal no fevers, diarrhea reported who is at bedside states that the patient had some vomiting when moved. Patient otherwise is tolerating tube feedings, on trach collar and TPs at a flow rate of 6 L and an FiO2 of 28 Objective Vitals Vital Signs Date Time Temp Pulse Resp B/P Pulse Ox O2 Delivery O2 Flow Rate FiO2 06/28/16 12:10 99.3 89 20 122/68 93 06/28/16 09:30 Trach Collar 6.00 28 T-Piece 06/28/16 09:09 90 06/28/16 08:09 98.7 90 20 114/67 94 06/28/16 04:00 99.4 89 20 113/66 97 06/28/16 00:32 98.7 83 20 120/67 96 06/27/16 20:00 97.8 81 20 118/67 99 06/27/16 20:00 Trach Collar 6.00 28 06/27/16 20:00 81 06/27/16 18:06 98 T-piece 6.00 28 06/27/16 16:00 98.3 92 18 116/75 98 06/27/16 13:17 99.3 90 17 106/59 96 I/O 06/27/16 06/27/16 06/27/16 06/28/16 06/28/16 06/28/16 07:00 15:00 23:00 07:00 15:00 23:00 Intake Total 0 ml 1089 ml Output Total 60 ml 3000 ml 0 ml 0 ml Balance -60 ml -3000 ml 0 ml 1089 ml Intake Oral 0 ml 0 ml Tube Feeding 1089 ml Output Urine Total 60 ml 0 ml 0 ml Hemodialysis 3000 ml # Voids 0 0 # Bowel Movements 1 1 Result Diagram: 06/28/16 0515 06/28/16 0515 Imaging Last Impressions Chest X-Ray 06/26/16 0000 Signed Impressions: Service Date/Time: Sunday, June 26, 2016 08:39 - CONCLUSION: No acute disease. Jonathon Peters MD FACR Chest CT 06/10/16 0000 Signed Impressions: Service Date/Time: Friday, June 10, 2016 16:11 - CONCLUSION: 1. Patchy infiltrates right upper lobe, left upper lobe and superior segments of the lower lobes. 2. Thickening of the right major fissure. 3. Bilateral gynecomastia. 4. Coronary artery calcifications. Carlitos Aguirre MD Liver Ultrasound 06/06/16 Signed Impressions: Service Date/Time: Monday, June 06, 2016 14:18 - CONCLUSION: 1. Liver slightly echogenic which can be seen with fatty infiltration. 2. Spleen not visualized. 3. There may be some minimal gallbladder sludge but no cholelithiasis or wall thickening. Carlitos Aguirre MD Upper Extremity Ultrasound 06/05/16 Signed Impressions: Service Date/Time: Sunday, June 05, 2016 11:01 - CONCLUSION: Occlusive thrombus right cephalic vein and left basilic vein Shahid Sin MD Lower Extremity Ultrasound 06/05/16 Signed Impressions: Service Date/Time: Sunday, June 05, 2016 16:05 - CONCLUSION: Normal examination. No evidence of DVT Shahid Sin MD Gastrostomy Tube Placement 06/02/16 Signed Impressions: Service Date/Time: Thursday, June 02, 2016 12:31 - CONCLUSION: Uncomplicated gastrostomy tube placement as above. Isidro Flor MD Catheter Placement X-Ray 06/02/16 Signed Impressions: Service Date/Time: Thursday, June 02, 2016 12:31 - CONCLUSION: 1. Uncomplicated line placement as above. 2. Patient currently has a modified left subclavian PermCath catheter that is being utilized as a temporary access. Isidro Flor MD Brain MRI 05/27/16 Signed Impressions: Service Date/Time: Friday, May 27, 2016 12:17 - CONCLUSION: Multifocal bilateral T2 signal abnormalities in restricted diffusion concerning for bilateral lacunar infarcts. Carlitos Aguirre MD Head CT 05/16/16 Signed Impressions: Service Date/Time: Monday, May 16, 2016 08:30 - CONCLUSION: Suspected bilateral basal ganglia calcifications are unchanged. No evidence of hemorrhage, edema, mass or mass effect. Stephen Quintanilla MD Abdomen/Pelvis CT 05/16/16 Signed Impressions: Service Date/Time: Monday, May 16, 2016 08:39 - CONCLUSION: There are large areas of hemorrhage including the left retroperitoneum and psoas muscle, within the mesentery and a smaller area in the right psoas muscle. They don't appear to be related to the abdominal aorta or the internal iliac arteries. There is a small focal collection hemorrhage adjacent to the left external iliac artery as it enters the pelvis, but I don't believe that is related to the large amount of hemorrhage seen elsewhere. The areas of hemorrhage are large and multi-focal. Stephen Quintanilla MD CT Angiography 05/06/16 0000 Signed Impressions: Service Date/Time: Saturday, May 07, 2016 00:04 - CONCLUSION: 1. Lobar consolidation bilaterally in the lower lobes. 2. Negative for pulmonary embolism. Michael Colbert MD Objective Remarks GENERAL: Non verbal, tracks down with eyes. SKIN: Warm and dry. HEAD: Normocephalic. EYES: No scleral icterus. No injection or drainage. NECK: Supple, trachea midline. No JVD or lymphadenopathy. CARDIOVASCULAR: Regular rate and rhythm without murmurs, gallops, or rubs. RESPIRATORY: Breath sounds equal bilaterally. No accessory muscle use. GASTROINTESTINAL: Abdomen soft, non-tender, nondistended. MUSCULOSKELETAL: No cyanosis, or edema. SCDs. NEURO: Patient awake with eyes opened, tracks with sight, paraplegic. Procedures 05/16/16 intubation 05/17/16 left internal jugular central line placement 05/17/16 right internal jugular Vas-Cath placement 05/17/16 right femoral arterial line placement 05/19/16 fiberoptic bronchoscopy 06/01/16 fiberoptic bronchoscopy 06/01/16 tracheostomy Medications and IVs Current Medications Medications (Trade) Dose Ordered Sig/Isabelle Route Start Time Stop Time Status Last Admin (NS Flush) 2 ml UNSCH PRN IV FLUSH 05/05/16 17:15 06/26/16 03:16 (NS Flush) 2 ml BID IV FLUSH 05/05/16 21:00 06/28/16 09:21 (Tears Naturale Opth Soln) 1 drop TID EACH EYE 05/05/16 18:00 06/28/16 11:12 (Zofran Inj) 4 mg Q6H PRN IV 05/05/16 17:15 06/26/16 03:16 (Aspirin Chew) 81 mg DAILY CHEW 05/06/16 09:00 06/28/16 09:32 (Lipitor) 20 mg DAILY PO 05/06/16 09:00 Hold 05/15/16 08:32 Miscellaneous 1 ea 1 ea UNSCH PRN OTHER 05/11/16 15:15 (NS 1000 ml Inj) 1,000 ml @ 0 mls/hr Q0M PRN IV 05/17/16 12:13 06/24/16 11:44 Heparin Sodium (Porcine) 8000 units 8,000 units UNSCH PRN IVF 05/17/16 12:15 Sodium Chloride 1,000 ml @ 200 mls/hr Q5H PRN IV 05/17/16 12:13 06/24/16 11:45 (NS 1000 ml Inj) 1,000 ml @ 0 mls/hr Q0M PRN IV 05/17/16 12:13 06/03/16 12:58 (Mannitol Inj) 12.5 gm UNSCH PRN IV 05/17/16 12:15 06/22/16 07:18 (Albumin 25% Inj) 25 gm UNSCH PRN IV 05/17/16 12:15 06/22/16 07:18 (NS Flush) 5 ml UNSCH PRN IVF 05/17/16 12:15 06/24/16 11:45 (Heparin Inj) UNSCH PRN .XX 05/17/16 12:15 06/27/16 12:46 (Gentamicin (Dialysis) Inj) 20 mg UNSCH PRN IV 05/17/16 12:15 06/27/16 12:46 (Zofran Inj) 4 mg UNSCH PRN IV 05/17/16 12:15 (Benadryl) 25 mg UNSCH PRN PO 05/17/16 12:15 (Gelfoam 12 Mm/7 Mm Top) 1 foam UNSCH PRN TOP 05/17/16 12:15 (Epogen Inj) 10,000 units UNSCH PRN IV 05/17/16 12:15 06/27/16 12:46 (Nitroglycerin 2% Oint) 2 inch Q6HR PRN TOPICAL 05/23/16 22:00 (Apresoline Inj) 10 mg Q1HR PRN IV PUSH 05/27/16 18:00 05/29/16 16:18 (Trandate Inj) 10 mg Q1HR PRN IV PUSH 05/27/16 17:30 06/03/16 19:51 (Trandate) 200 mg Q8HR PO 05/27/16 22:00 06/28/16 06:19 (Tylenol 650 Mg/ 20 ml Liq) 650 mg Q6H PRN TUBE 05/31/16 13:30 06/17/16 16:49 (Heparin Inj) 5,000 units Q12HR SQ 06/02/16 21:00 06/28/16 09:16 (NS Flush) UNSCH PRN IVF 06/02/16 14:30 06/08/16 07:34 (Heparin Inj) UNSCH PRN IVF 06/02/16 14:30 (Cardizem) 60 mg QID PO 06/06/16 13:00 06/28/16 09:16 (Protonix Inj) 40 mg Q24H IV PUSH 06/13/16 09:00 06/28/16 09:16 (Apresoline) 75 mg Q8HR PO 06/15/16 14:00 06/28/16 06:19 (D50w (Vial) Inj) 25 ml UNSCH PRN IV PUSH 06/21/16 15:15 (Glucagon Inj) 1 mg UNSCH PRN OTHER 06/21/16 15:15 (Mycostatin Powder) 1 applic Q12HR TOPICAL 06/23/16 11:15 06/28/16 09:33 (Peridex 0.12% Liq) 15 ml BID@08,20 MT 06/26/16 08:00 06/28/16 08:00 (Levemir Inj) 20 units BID SQ 06/26/16 09:00 06/28/16 09:17 (Diflucan) 400 mg Q48H PO 06/27/16 17:00 07/07/16 16:59 06/27/16 17:19 Urinary Catheter: Yes Assessment to: Continue Blake insert reason: Prolonged Immobilization Date of Insertion: Jun 17, 2016 Vascular Central Line Catheter: No A/P Problem List: (1) Anoxic-ischemic encephalopathy ICD Code: G93.1 Status: Acute (2) CAD (coronary artery disease) ICD Code: I25.10 Status: Chronic (3) 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 Status: Chronic (4) Retroperitoneal bleed ICD Code: R58 Status: Resolved (5) Acute renal failure ICD Code: N17.9 Status: Acute (6) Chronic diastolic congestive heart failure ICD Code: I50.32 Status: Chronic (7) Elevated LFTs ICD Code: R94.5 Status: Resolved (8) Basal ganglia infarction ICD Code: I63.9 Status: Acute (9) Hypertension ICD Code: I10 Status: Chronic (10) Aspiration pneumonia ICD Code: J69.0 Status: Resolved (11) Acute blood loss anemia ICD Code: D62 Status: Resolved (12) Acute thrombosis of left basilic vein ICD Code: I82.612 Status: Acute (13) Acute thrombosis of right cephalic vein ICD Code: I82.611 Status: Acute (14) Diabetes mellitus ICD Code: E11.9 Status: Chronic (15) Sinus pause ICD Code: I45.5 Status: Resolved (16) Wound of skin ICD Code: R23.8 Status: Acute (17) Leukocytosis ICD Code: D72.829 Status: Acute (18) Catheter-associated urinary tract infection ICD Code: T83.511A Status: Acute (19) Hyperkalemia ICD Code: E87.5 Status: Acute (20) Hyperphosphatemia ICD Code: E83.39 Status: Acute (21) Hypermagnesemia ICD Code: E83.41 Status: Acute Assessment and Plan (1) Anoxic-ischemic encephalopathy Plan: Patient status post bilateral basal ganglia infarcts. Neurology following. Patient lethargic and hard to arouse. Neurologic status is unchanged. Patient's tolerating tube feedingson Nepro at 50 an ml's per hour. status post PEG tube placement. (2) CAD (coronary artery disease) Plan: Patient presented with EKG consistent with STEMI. The patient underwent emergent cardiac catheterization which showed mild to moderate CAD similar to cardiac catheterization observed in 2010. EKG changes likely consistent with hypertensive emergency. Not a candidate for anticoagulation due to retroperitoneal bleed. Continue aspirin 81 mg. Cardiology following. 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 CT surgery consulted and cardiology following. (4) Retroperitoneal bleed Plan: Patient status post hemorrhagic shock after a large retroperitoneal bleed , acute blood loss anemia. Sp transfusion of 8 units of PRBC. Bleeding and shock have resolved. Continue to monitor H&H - stable. (5) Acute renal failure Plan: Oliguric renal failure. Patient on hemodialysis. Continue with hemodialysis. BUN and creatinine still remain elevated and patient remains oliguric. Continue to monitor BUN and creatinine, strict input and output. Fu nephrology recommendations. Will need HD upon dialysis. (6) Chronic diastolic congestive heart failure Plan: Continue beta daniel, aspirin, statin on hold. Stable. Echocardiogram performed on 05/06/16 showed a normal systolic function with ejection fraction of 55-60%. (7) Elevated LFTs Plan: Transaminitis resolved. continue to monitor LFT's. Hepatitis panel negative. Liver ultrasound obtained on 06/06/16 showed a slightly echogenic liver which can be seen with fatty infiltration. Spleen not visualized. Minimal gallbladder sludge but no cholelithiasis or wall thickening. (8) Basal ganglia infarction Plan: Follow up neurology recommendations. Continue aspirin 81 mg. The patient is not a candidate for anticoagulation due to recent retroperitoneal bleed. (9) Hypertension Plan: Seems stable with appropriate control. Continue antihypertensive medications including hydralazine 75 mg by mouth every 8 hours, diltiazem 60 mg by mouth 4 times a day, Trileptal 1200 mg by mouth every 8 hours, hydralazine when necessary (10) Aspiration pneumonia Plan: Recent status post treatment with IV cefepime and Levaquin, antibiotics discontinued on 06/16/16. Infectious disease consulted, signed off. (11) Acute blood loss anemia Plan: Secondary to retroperitoneal bleed. Now resolved. Continue to monitor H &H. Hemoglobin stable. (12) Acute thrombosis of left basilic vein Plan: Right cephalic vein superficial thrombosis, left basilic vein thrombus, posterior tibial thrombus. Hematology consulted, appreciate recommendations. Continue aspirin. The patient is on prophylactic dose heparin 5000 units subcutaneous twice a day. Monitor for any potential bleed. (13) Acute thrombosis of right cephalic vein Plan: As above. (14) Diabetes mellitus Plan: Hemoglobin A1c 7.1. Diabetes still with uncontrolled hyperglycemia. Hemoglobin A1c 7.1 on 06/26/16 (15) Sinus pause Plan: Patient had one episode of 2 very short left sinus pauses. Telemetry reviewed by me. Sinus pause has not repeated itself. Continue to monitor on telemetry. If sinus pause continues then we will continue beta daniel. 06/23/16 No further pauses on telemetry. (16) Wound of skin Plan: Patient has a small open area under trach collar. Continue to clean with Betadine and leave to open area. Wound seems to be better and healing. (17) Leukocytosis Plan: WBC trending up from 11.8-2.6. Patient has been afebrile, perhaps some more rhonchi and sputum production noticed. Will continue to monitor CBC with differential. If continues to trend up then will obtain further studies. 06/26 WBC continues to trend up from 12.6 to 13.9 and patient has increased sputum production. No fevers. I check a chest x ray to r/o asp/HCAP PNA, check sputum culture and also check a urinalysis. 06/27 WBC now down to 11.3. No fevers. UA (+) with budding yeasts. Start the patient on IV Cefepime, IV Fluconazole, Consult infectious disease and replace blake catheter. Continue to monitor CBC with differential. 06/28 appreciate ID consultation recommendations. IV cefepime discontinued as per ID. Fluconazole IV discontinued, switched to oral at 400 mg by mouth every 48 hours. GI prophylaxis: Continue PPI. DVT prophylaxis: SCDs, no chemoprophylaxis given retroperitoneal bleed with hemorrhagic shock. Discharge Planning Patient is stable for discharge. The patient will need to be placed on a long- term care facility. Discussed the case with embedded case manager that states that the only place available is at [facility] where they can also take care of the patient's trach and they have hemodialysis in-house. This was discussed with the however as per the embedded case manager, the states that [facility] would be too far for them. I discussed with embedded case manager to be addressed with patient's . I also had a discussion with the patient's about the patient's current medical status. She states that she has hope that her 's condition is temporary, I explained to the patient that the patient's neurological deficit is most likely permanent. Problem Qualifiers (1) CAD (coronary artery disease): Qualified Code: I25.10 - Coronary artery disease, angina presence unspecified, unspecified vessel or lesion type, unspecified whether [place] or transplanted heart (2) Acute renal failure: Qualified Code: N17.0 - Acute renal failure with tubular necrosis (3) Hypertension: Qualified Code: I10 - Essential hypertension (4) Diabetes mellitus: Qualified Code: E13.8 - Diabetes mellitus of other type with complication, unspecified shelter insulin use status (5) Leukocytosis: Qualified Code: D72.829 - Leukocytosis, unspecified type (6) Catheter-associated urinary tract infection: Qualified Code: T83.511A - Urinary tract infection associated with indwelling urethral catheter, initial encounter Idris Morales MD Jun 28, 2016 13:21
--- NOTE | 2016-06-28 13:56 | HHI.NPPN ---
Subjective History of Present Illness 61 year old with ARF, CHF, Respiratory failure Additional Remarks on O2 With trach, non-communicative. Objective Data Data 06/27/16 06/28/16 19:00 07:00 Intake Total 0 ml 1089 ml Output Total 3000 ml 0 ml Balance -3000 ml 1089 ml Intake Oral 0 ml 0 ml Tube Feeding 1089 ml Output Urine Total 0 ml Hemodialysis 3000 ml # Voids 0 # Bowel Movements 1 Vital Signs Date Time Temp Pulse Resp B/P Pulse Ox O2 Delivery O2 Flow Rate FiO2 06/28/16 12:10 99.3 89 20 122/68 93 06/28/16 09:30 Trach Collar 6.00 28 T-Piece 06/28/16 09:09 90 06/28/16 08:09 98.7 90 20 114/67 94 06/28/16 04:00 99.4 89 20 113/66 97 06/28/16 00:32 98.7 83 20 120/67 96 06/27/16 20:00 97.8 81 20 118/67 99 06/27/16 20:00 Trach Collar 6.00 28 06/27/16 20:00 81 06/27/16 18:06 98 T-piece 6.00 28 06/27/16 16:00 98.3 92 18 116/75 98 -: 06/28/16 0515 06/28/16 0515 Physical Exam General Appearance: No Acute Distress, Comfortable, Obese Neck Neck Exam: Neck Supple Pulmonary Resp Exam: Rhonchi, Decreased Bases, Diminished Breath Sounds, Poor Inspiratory Effort Cardiology CV Exam: Tachycardia Gastrointestinal/Abdomen GI Exam: Soft, Non-Tender, Distended Extremeties Extremities Exam: Moderate Edema, Pitting Edema, Dependent Edema Neurologic Neuro Exam: Unresponsive Assessment/Plan Problem List: (1) Acute renal failure Plan: Patient has oliguric acute renal failure BUN and Creatinine remain high Continue with HD HD, continue TTS HD. Multiple CVA Anoxic Encephalopathy S/P Trach. 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
[2016-06-29] VITALS (12 sets, daily range): BP systolic 109–139; BP diastolic 59–82; PULSE 77–89; RESP 18–24; TEMP 98.1–99.4; O2SAT 93–97
[2016-06-29] MEDS: hydrALAZINE HCL 25 MG TAB PO SCH ×3 (06:06→21:59)
[2016-06-29] MEDS: LABETALOL HCL 200 MG TAB PO SCH ×3 (06:06→21:58)
[2016-06-29] MEDS: INSULIN ASPART SUPPLEMENTAL SCALE SQ SCH ×4 (06:07→21:00)
[2016-06-29] MEDS: CHLORHEXIDINE 0.12% (ORAL KIT) 15 ML CUP MT SCH ×2 (08:00→20:00)
[2016-06-29] MEDS: HEPARIN SODIUM - SQ 10,000 UNITS/ML VIAL SQ SCH ×2 (08:16→21:58)
[2016-06-29] MEDS: INSULIN DETEMIR 100 UNITS/ML VIAL SQ SCH ×2 (08:16→21:58)
[2016-06-29] MEDS: PANTOPRAZOLE SODIUM 40 MG VIAL IV PUSH SCH (08:16)
[2016-06-29] MEDS: ARTIFICIAL TEARS OPTH SOLN 15 ML BTL EACH EYE SCH ×3 (08:17→17:15)
[2016-06-29] MEDS: NYSTATIN 100,000 U/GM PWD 15 GM BTL TOPICAL SCH ×2 (08:17→21:00)
[2016-06-29] MEDS: SODIUM CHLORIDE 0.9% FLUSH 5 ML FLUSH IV FLUSH SCH ×2 (08:17→21:59)
[2016-06-29] MEDS: DILTIAZEM HCL 60 MG TAB PO SCH ×4 (09:00→21:58)
--- NOTE | 2016-06-29 09:01 | HHI.PR ---
Subjective Remarks no change OPENS EYES , but no focus track ok dialysis today Objective Vital Signs Date Time Temp Pulse Resp B/P Pulse Ox O2 Delivery O2 Flow Rate FiO2 06/29/16 06:00 Trach Collar 6.00 28 T-Piece 06/29/16 04:00 98.2 80 18 120/62 94 06/29/16 04:00 Trach Collar 6.00 28 T-Piece 06/29/16 00:00 98.1 77 18 109/59 96 06/28/16 20:00 98.1 78 18 116/59 99 06/28/16 20:00 76 06/28/16 16:33 99.4 81 20 106/52 94 06/28/16 13:50 97 T-piece 28 06/28/16 12:10 99.3 89 20 122/68 93 06/28/16 09:30 Trach Collar 6.00 28 T-Piece 06/28/16 09:09 90 I/O 06/28/16 06/28/16 06/28/16 06/29/16 06/29/16 06/29/16 07:00 15:00 23:00 07:00 15:00 23:00 Intake Total 1089 ml 337 ml 0 ml 0 ml Output Total 0 ml 25 ml 0 ml 0 ml Balance 1089 ml 312 ml 0 ml 0 ml Intake Oral 0 ml 0 ml 0 ml Tube Feeding 1089 ml 337 ml Output Urine Total 0 ml 25 ml 0 ml 0 ml # Voids 0 0 # Bowel Movements 0 0 1 Result Diagram: 06/28/16 0515 06/28/16 0515 Objective Remarks GENERAL: SKIN: Warm and dry. HEAD: Atraumatic. Normocephalic. EYES: Pupils equal and round. No scleral icterus. No injection or drainage. ENT: No nasal bleeding or discharge. Mucous membranes pink and moist. NECK: Trachea midline. No JVD. tracheostomy in place CARDIOVASCULAR: Regular rate and rhythm. RESPIRATORY: No accessory muscle use. Clear to auscultation. Breath sounds equal bilaterally. GASTROINTESTINAL: Abdomen soft, non-tender, nondistended. Hepatic and splenic margins not palpable. MUSCULOSKELETAL: Extremities without clubbing, cyanosis, or edema. No obvious deformities. NEUROLOGICAL: Awake and alert. No obvious cranial nerve deficits. Motor grossly within normal limits. Five out of 5 muscle strength in the arms and legs. Normal speech. PSYCHIATRIC: Appropriate mood and affect; insight and judgment normal. Assessment and Plan Assessment and Plan respiratory failure s/p Tracheostomy PLAN 02 as needed pulmonary toilet outlook poor Kj Underwood MD Jun 29, 2016 09:01
--- NOTE | 2016-06-29 10:44 | HHI.NPPN ---
Subjective History of Present Illness 61 year old with ARF, CHF, Respiratory failure Additional Remarks on O2 With trach, non-communicative. Objective Data Data 06/28/16 06/29/16 19:00 07:00 Intake Total 337 ml 0 ml Output Total 25 ml 0 ml Balance 312 ml 0 ml Intake Oral 0 ml Tube Feeding 337 ml Output Urine Total 25 ml 0 ml # Voids 0 # Bowel Movements 0 1 Vital Signs Date Time Temp Pulse Resp B/P Pulse Ox O2 Delivery O2 Flow Rate FiO2 06/29/16 09:52 79 06/29/16 08:00 Trach Collar 6.00 28 T-Piece 06/29/16 06:00 Trach Collar 6.00 28 T-Piece 06/29/16 04:00 98.2 80 18 120/62 94 06/29/16 04:00 Trach Collar 6.00 28 T-Piece 06/29/16 00:00 98.1 77 18 109/59 96 06/28/16 20:00 98.1 78 18 116/59 99 06/28/16 20:00 76 06/28/16 16:33 99.4 81 20 106/52 94 06/28/16 13:50 97 T-piece 28 06/28/16 12:10 99.3 89 20 122/68 93 -: 06/28/16 0515 06/28/16 0515 Physical Exam General Appearance: No Acute Distress, Comfortable, Obese Neck Neck Exam: Neck Supple Pulmonary Resp Exam: Rhonchi, Decreased Bases, Diminished Breath Sounds, Poor Inspiratory Effort Cardiology CV Exam: Tachycardia Gastrointestinal/Abdomen GI Exam: Soft, Non-Tender, Distended Extremeties Extremities Exam: Moderate Edema, Pitting Edema, Dependent Edema Neurologic Neuro Exam: Unresponsive Assessment/Plan Problem List: (1) Acute renal failure Plan: Patient has oliguric acute renal failure BUN and Creatinine remain high Continue with HD TTS Seen during HD hemodialysis proceedings noted on 2K/HCO3, UF 2.5 L Multiple CVA Anoxic Encephalopathy S/P Trach. 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
[2016-06-29] MEDS: ASPIRIN 81 MG CHEW TAB CHEW SCH (12:33)
--- NOTE | 2016-06-29 15:23 | HHI.PR ---
Subjective Remarks Pt has eyes closed. trach in place. at bedside, states that he usually opens his eyes for her but he doesn't when she called his name. OT at bedside tells me that he hasn't opened his eyes for her whenever she works with him Objective Vitals Vital Signs Date Time Temp Pulse Resp B/P Pulse Ox O2 Delivery O2 Flow Rate FiO2 06/29/16 14:33 86 137/76 06/29/16 12:07 99.1 89 24 139/82 97 06/29/16 09:52 79 06/29/16 08:25 97 T-piece 5.00 28 06/29/16 08:06 99.4 80 24 117/63 96 06/29/16 08:00 Trach Collar 6.00 28 T-Piece 06/29/16 06:00 Trach Collar 6.00 28 T-Piece 06/29/16 04:00 98.2 80 18 120/62 94 06/29/16 04:00 Trach Collar 6.00 28 T-Piece 06/29/16 00:00 98.1 77 18 109/59 96 06/28/16 20:00 98.1 78 18 116/59 99 06/28/16 20:00 76 06/28/16 16:33 99.4 81 20 106/52 94 I/O 06/28/16 06/28/16 06/28/16 06/29/16 06/29/16 06/29/16 07:00 15:00 23:00 07:00 15:00 23:00 Intake Total 1089 ml 337 ml 0 ml 0 ml Output Total 0 ml 25 ml 0 ml 0 ml 2000 ml Balance 1089 ml 312 ml 0 ml 0 ml -2000 ml Intake Oral 0 ml 0 ml 0 ml Tube Feeding 1089 ml 337 ml Output Urine Total 0 ml 25 ml 0 ml 0 ml Hemodialysis 2000 ml # Voids 0 0 # Bowel Movements 0 0 1 Result Diagram: 06/28/16 0515 06/28/16 0515 Imaging Last Impressions Chest X-Ray 06/26/16 0000 Signed Impressions: Service Date/Time: Sunday, June 26, 2016 08:39 - CONCLUSION: No acute disease. Jonathon Peters MD FACR Chest CT 06/10/16 0000 Signed Impressions: Service Date/Time: Friday, June 10, 2016 16:11 - CONCLUSION: 1. Patchy infiltrates right upper lobe, left upper lobe and superior segments of the lower lobes. 2. Thickening of the right major fissure. 3. Bilateral gynecomastia. 4. Coronary artery calcifications. Carlitos Aguirre MD Liver Ultrasound 06/06/16 Signed Impressions: Service Date/Time: Monday, June 06, 2016 14:18 - CONCLUSION: 1. Liver slightly echogenic which can be seen with fatty infiltration. 2. Spleen not visualized. 3. There may be some minimal gallbladder sludge but no cholelithiasis or wall thickening. Carlitos Aguirre MD Upper Extremity Ultrasound 06/05/16 Signed Impressions: Service Date/Time: Sunday, June 05, 2016 11:01 - CONCLUSION: Occlusive thrombus right cephalic vein and left basilic vein Shahid Sin MD Lower Extremity Ultrasound 06/05/16 Signed Impressions: Service Date/Time: Sunday, June 05, 2016 16:05 - CONCLUSION: Normal examination. No evidence of DVT Shahid Sin MD Gastrostomy Tube Placement 06/02/16 Signed Impressions: Service Date/Time: Thursday, June 02, 2016 12:31 - CONCLUSION: Uncomplicated gastrostomy tube placement as above. Isidro Flor MD Catheter Placement X-Ray 06/02/16 Signed Impressions: Service Date/Time: Thursday, June 02, 2016 12:31 - CONCLUSION: 1. Uncomplicated line placement as above. 2. Patient currently has a modified left subclavian PermCath catheter that is being utilized as a temporary access. Isidro Flor MD Brain MRI 05/27/16 Signed Impressions: Service Date/Time: Friday, May 27, 2016 12:17 - CONCLUSION: Multifocal bilateral T2 signal abnormalities in restricted diffusion concerning for bilateral lacunar infarcts. Carlitos Aguirre MD Head CT 05/16/16 0000 Signed Impressions: Service Date/Time: Monday, May 16, 2016 08:30 - CONCLUSION: Suspected bilateral basal ganglia calcifications are unchanged. No evidence of hemorrhage, edema, mass or mass effect. Stephen Quintanilla MD Abdomen/Pelvis CT 05/16/16 0000 Signed Impressions: Service Date/Time: Monday, May 16, 2016 08:39 - CONCLUSION: There are large areas of hemorrhage including the left retroperitoneum and psoas muscle, within the mesentery and a smaller area in the right psoas muscle. They don't appear to be related to the abdominal aorta or the internal iliac arteries. There is a small focal collection hemorrhage adjacent to the left external iliac artery as it enters the pelvis, but I don't believe that is related to the large amount of hemorrhage seen elsewhere. The areas of hemorrhage are large and multi-focal. Stephen Quintanilla MD CT Angiography 05/06/16 0000 Signed Impressions: Service Date/Time: Saturday, May 07, 2016 00:04 - CONCLUSION: 1. Lobar consolidation bilaterally in the lower lobes. 2. Negative for pulmonary embolism. Michael Colbert MD Objective Remarks GENERAL: Non verbal, tracks down with eyes. SKIN: Warm and dry. HEAD: Normocephalic. EYES: No scleral icterus. No injection or drainage. doesn't open them for me when I call his name NECK: Supple, trachea midline. No JVD or lymphadenopathy. CARDIOVASCULAR: Regular rate and rhythm without murmurs, gallops, or rubs. RESPIRATORY: Breath sounds equal bilaterally. No accessory muscle use. GASTROINTESTINAL: Abdomen soft, non-tender, nondistended. MUSCULOSKELETAL: No cyanosis, or edema. SCDs. 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 Status: Chronic (4) Retroperitoneal bleed ICD Code: R58 Status: Resolved (5) Acute renal failure ICD Code: N17.9 Status: Acute (6) Chronic diastolic congestive heart failure ICD Code: I50.32 Status: Chronic (7) Elevated LFTs ICD Code: R94.5 Status: Resolved (8) Basal ganglia infarction ICD Code: I63.9 Status: Acute (9) Hypertension ICD Code: I10 Status: Chronic (10) Aspiration pneumonia ICD Code: J69.0 Status: Resolved (11) Acute blood loss anemia ICD Code: D62 Status: Resolved (12) Acute thrombosis of left basilic vein ICD Code: I82.612 Status: Acute (13) Acute thrombosis of right cephalic vein ICD Code: I82.611 Status: Acute (14) Diabetes mellitus ICD Code: E11.9 Status: Chronic (15) Sinus pause ICD Code: I45.5 Status: Resolved (16) Wound of skin ICD Code: R23.8 Status: Acute (17) Leukocytosis ICD Code: D72.829 Status: Acute (18) Catheter-associated urinary tract infection ICD Code: T83.511A Status: Acute (19) Hyperkalemia ICD Code: E87.5 Status: Acute (20) Hyperphosphatemia ICD Code: E83.39 Status: Acute (21) Hypermagnesemia ICD Code: E83.41 Status: Acute Assessment and Plan 06/29/16 updated plan: no new changes to management. I discussed w CM and placement is difficult as pt's doesn't want him to go to [facility]. Facilities in the area are limited and those providing HD are not available. (1) Anoxic-ischemic encephalopathy Plan: Patient status post bilateral basal ganglia infarcts. Neurology following. Patient lethargic and hard to arouse. Neurologic status is unchanged. Patient's tolerating tube feedingson Nepro at 50 an ml's per hour. status post PEG tube placement. (2) CAD (coronary artery disease) Plan: Patient presented with EKG consistent with STEMI. The patient underwent emergent cardiac catheterization which showed mild to moderate CAD similar to cardiac catheterization observed in 2010. EKG changes likely consistent with hypertensive emergency. Not a candidate for anticoagulation due to retroperitoneal bleed. Continue aspirin 81 mg. Cardiology following. 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 CT surgery consulted and cardiology following. (4) Retroperitoneal bleed Plan: Patient status post hemorrhagic shock after a large retroperitoneal bleed , acute blood loss anemia. Sp transfusion of 8 units of PRBC. Bleeding and shock have resolved. Continue to monitor H&H - stable. (5) Acute renal failure Plan: Oliguric renal failure. Patient on hemodialysis. Continue with hemodialysis. BUN and creatinine still remain elevated and patient remains oliguric. Continue to monitor BUN and creatinine, strict input and output. Fu nephrology recommendations. Will need HD upon dialysis. (6) Chronic diastolic congestive heart failure Plan: Continue beta daniel, aspirin, statin on hold. Stable. Echocardiogram performed on 05/06/16 showed a normal systolic function with ejection fraction of 55-60%. (7) Elevated LFTs Plan: Transaminitis resolved. continue to monitor LFT's. Hepatitis panel negative. Liver ultrasound obtained on 06/06/16 showed a slightly echogenic liver which can be seen with fatty infiltration. Spleen not visualized. Minimal gallbladder sludge but no cholelithiasis or wall thickening. (8) Basal ganglia infarction Plan: Follow up neurology recommendations. Continue aspirin 81 mg. The patient is not a candidate for anticoagulation due to recent retroperitoneal bleed. (9) Hypertension Plan: Seems stable with appropriate control. Continue antihypertensive medications including hydralazine 75 mg by mouth every 8 hours, diltiazem 60 mg by mouth 4 times a day, Trileptal 1200 mg by mouth every 8 hours, hydralazine when necessary (10) Aspiration pneumonia Plan: Recent status post treatment with IV cefepime and Levaquin, antibiotics discontinued on 06/16/16. Infectious disease consulted, signed off. (11) Acute blood loss anemia Plan: Secondary to retroperitoneal bleed. Now resolved. Continue to monitor H &H. Hemoglobin stable. (12) Acute thrombosis of left basilic vein Plan: Right cephalic vein superficial thrombosis, left basilic vein thrombus, posterior tibial thrombus. Hematology consulted, appreciate recommendations. Continue aspirin. The patient is on prophylactic dose heparin 5000 units subcutaneous twice a day. Monitor for any potential bleed. (13) Acute thrombosis of right cephalic vein Plan: As above. (14) Diabetes mellitus Plan: Hemoglobin A1c 7.1. Diabetes still with uncontrolled hyperglycemia. Hemoglobin A1c 7.1 on 06/26/16 (15) Sinus pause Plan: Patient had one episode of 2 very short left sinus pauses. Telemetry reviewed by me. Sinus pause has not repeated itself. Continue to monitor on telemetry. If sinus pause continues then we will continue beta daniel. 06/23/16 No further pauses on telemetry. (16) Wound of skin Plan: Patient has a small open area under trach collar. Continue to clean with Betadine and leave to open area. Wound seems to be better and healing. (17) Leukocytosis Plan: WBC trending up from 11.8-2.6. Patient has been afebrile, perhaps some more rhonchi and sputum production noticed. Will continue to monitor CBC with differential. If continues to trend up then will obtain further studies. 06/26 WBC continues to trend up from 12.6 to 13.9 and patient has increased sputum production. No fevers. I check a chest x ray to r/o asp/HCAP PNA, check sputum culture and also check a urinalysis. 06/27 WBC now down to 11.3. No fevers. UA (+) with budding yeasts. Start the patient on IV Cefepime, IV Fluconazole, Consult infectious disease and replace blake catheter. Continue to monitor CBC with differential. 06/28 appreciate ID consultation recommendations. IV cefepime discontinued as per ID. Fluconazole IV discontinued, switched to oral at 400 mg by mouth every 48 hours. GI prophylaxis: Continue PPI. DVT prophylaxis: SCDs, no chemoprophylaxis given retroperitoneal bleed with hemorrhagic shock. Discharge Planning Patient is stable for discharge. The patient will need to be placed on a long- term care facility. Discussed the case with case sealer that states that the only place available is at [facility] where they can also take care of the patient's trach and they have hemodialysis in-house. This was discussed with the however as per the case sealer, the states that [facility] would be too far for them. CM will again speak to today regarding d/c planning. Per Dr. Walters's note, he has already explained to the patient that the patient's neurological deficit is most likely permanent. 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 Problem Qualifiers (1) CAD (coronary artery disease): Qualified Code: I25.10 - Coronary artery disease, angina presence unspecified, unspecified vessel or lesion type, unspecified whether [place] or transplanted heart (2) Acute renal failure: Qualified Code: N17.0 - Acute renal failure with tubular necrosis (3) Hypertension: Qualified Code: I10 - Essential hypertension (4) Diabetes mellitus: Qualified Code: E13.8 - Diabetes mellitus of other type with complication, unspecified long term care pharmacist insulin use status (5) Leukocytosis: Qualified Code: D72.829 - Leukocytosis, unspecified type (6) Catheter-associated urinary tract infection: Qualified Code: T83.511A - Urinary tract infection associated with indwelling urethral catheter, initial encounter Johanna Lemus MD Jun 29, 2016 15:23
[2016-06-29] MEDS: FLUCONAZOLE 200 MG TAB PO SCH (17:15)
[2016-06-30] VITALS (10 sets, daily range): BP systolic 112–138; BP diastolic 57–74; PULSE 74–92; RESP 18–22; TEMP 96.9–100.3; O2SAT 95–99
[2016-06-30] MEDS: LABETALOL HCL 200 MG TAB PO SCH ×3 (06:35→21:20)
[2016-06-30] MEDS: INSULIN ASPART SUPPLEMENTAL SCALE SQ SCH ×4 (06:35→21:19)
[2016-06-30] MEDS: hydrALAZINE HCL 25 MG TAB PO SCH ×3 (06:35→21:20)
[2016-06-30] MEDS: CHLORHEXIDINE 0.12% (ORAL KIT) 15 ML CUP MT SCH ×2 (08:00→20:00)
--- NOTE | 2016-06-30 08:28 | HHI.PR ---
Subjective Remarks no change OPENS EYES , but no focus track ok dialysis today Objective Vital Signs Date Time Temp Pulse Resp B/P Pulse Ox O2 Delivery O2 Flow Rate FiO2 06/30/16 07:17 96 T-piece 28 06/30/16 04:00 98.9 89 18 138/71 95 06/30/16 00:00 99.0 77 18 112/57 96 06/29/16 22:15 93 T-piece 6.00 28 06/29/16 20:19 78 06/29/16 20:00 98.2 78 18 122/61 93 06/29/16 19:32 T-Piece 5.00 28 06/29/16 17:08 81 20 118/67 06/29/16 16:06 99.0 82 22 128/76 97 06/29/16 14:33 86 137/76 06/29/16 12:07 99.1 89 24 139/82 97 06/29/16 09:52 79 I/O 06/29/16 06/29/16 06/29/16 06/30/16 06/30/16 06/30/16 07:00 15:00 23:00 07:00 15:00 23:00 Intake Total 0 ml 0 ml 1940 ml 400 ml Output Total 0 ml 3500 ml 0 ml 0 ml Balance 0 ml -3500 ml 1940 ml 400 ml Intake Oral 0 ml 0 ml 0 ml 0 ml Tube Feeding 1700 ml 400 ml Other 240 ml Output Urine Total 0 ml 1500 ml 0 ml 0 ml Hemodialysis 2000 ml # Voids 0 # Bowel Movements 1 2 0 0 Result Diagram: 06/28/1615 06/28/16514 Objective Remarks GENERAL: SKIN: Warm and dry. HEAD: Atraumatic. Normocephalic. EYES: Pupils equal and round. No scleral icterus. No injection or drainage. ENT: No nasal bleeding or discharge. Mucous membranes pink and moist. NECK: Trachea midline. No JVD. tracheostomy in place CARDIOVASCULAR: Regular rate and rhythm. RESPIRATORY: No accessory muscle use. Clear to auscultation. Breath sounds equal bilaterally. GASTROINTESTINAL: Abdomen soft, non-tender, nondistended. Hepatic and splenic margins not palpable. MUSCULOSKELETAL: Extremities without clubbing, cyanosis, or edema. No obvious deformities. NEUROLOGICAL: Awake and alert. No obvious cranial nerve deficits. Motor grossly within normal limits. Five out of 5 muscle strength in the arms and legs. Normal speech. PSYCHIATRIC: Appropriate mood and affect; insight and judgment normal. Assessment and Plan Assessment and Plan respiratory failure s/p Tracheostomy PLAN 02 as needed pulmonary toilet outlook poor Kj Underwood MD Jun 30, 2016 08:28
[2016-06-30] MEDS: DILTIAZEM HCL 60 MG TAB PO SCH ×4 (09:15→21:20)
[2016-06-30] MEDS: INSULIN DETEMIR 100 UNITS/ML VIAL SQ SCH ×2 (09:15→21:20)
[2016-06-30] MEDS: HEPARIN SODIUM - SQ 10,000 UNITS/ML VIAL SQ SCH ×2 (09:15→21:20)
[2016-06-30] MEDS: PANTOPRAZOLE SODIUM 40 MG VIAL IV PUSH SCH (09:15)
[2016-06-30] MEDS: ASPIRIN 81 MG CHEW TAB CHEW SCH (09:15)
[2016-06-30] MEDS: ARTIFICIAL TEARS OPTH SOLN 15 ML BTL EACH EYE SCH ×3 (09:18→17:46)
[2016-06-30] MEDS: NYSTATIN 100,000 U/GM PWD 15 GM BTL TOPICAL SCH ×2 (09:19→21:00)
[2016-06-30] MEDS: SODIUM CHLORIDE 0.9% FLUSH 5 ML FLUSH IV FLUSH SCH ×2 (09:19→21:20)
--- NOTE | 2016-06-30 12:40 | HHI.NPPN ---
Subjective History of Present Illness 61 year old with ARF, CHF, Respiratory failure Additional Remarks on O2 With trach, non-communicative. Objective Data Data 06/29/16 06/30/16 19:00 07:00 Intake Total 1540 ml 800 ml Output Total 3500 ml 0 ml Balance -1960 ml 800 ml Intake Oral 0 ml 0 ml Tube Feeding 1300 ml 800 ml Other 240 ml Output Urine Total 1500 ml 0 ml Hemodialysis 2000 ml # Bowel Movements 2 0 Vital Signs Date Time Temp Pulse Resp B/P Pulse Ox O2 Delivery O2 Flow Rate FiO2 06/30/16 08:06 100.3 92 22 122/72 97 06/30/16 07:30 T-Piece 5.00 28 06/30/16 07:30 82 06/30/16 07:17 96 T-piece 28 06/30/16 04:00 98.9 89 18 138/71 95 06/30/16 00:00 99.0 77 18 112/57 96 06/29/16 22:15 93 T-piece 6.00 28 06/29/16 20:19 78 06/29/16 20:00 98.2 78 18 122/61 93 06/29/16 19:32 T-Piece 5.00 28 06/29/16 17:08 81 20 118/67 06/29/16 16:06 99.0 82 22 128/76 97 06/29/16 14:33 86 137/76 -: 06/28/16 0515 06/28/16 0515 Physical Exam General Appearance: No Acute Distress, Comfortable, Obese Neck Neck Exam: Neck Supple Pulmonary Resp Exam: Rhonchi, Decreased Bases, Diminished Breath Sounds, Poor Inspiratory Effort Cardiology CV Exam: Tachycardia Gastrointestinal/Abdomen GI Exam: Soft, Non-Tender, Distended Extremeties Extremities Exam: Moderate Edema, Pitting Edema, Dependent Edema Neurologic Neuro Exam: Unresponsive Assessment/Plan Problem List: (1) Acute renal failure Plan: Patient has acute renal failure BUN and Creatinine remain high Continue with HD TTS Seen during HD UF 2 L yesterday hemodialysis next tomorrow UOP improved Multiple CVA Anoxic Encephalopathy S/P Trach. 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
--- NOTE | 2016-06-30 14:49 | HHI.PR ---
Subjective Remarks non verbal, no changes at bedside and has no concerns Objective Vitals Vital Signs Date Time Temp Pulse Resp B/P Pulse Ox O2 Delivery O2 Flow Rate FiO2 06/30/16 12:06 99.5 78 22 122/74 99 06/30/16 08:06 100.3 92 22 122/72 97 06/30/16 07:30 T-Piece 5.00 28 06/30/16 07:30 82 06/30/16 07:17 96 T-piece 28 06/30/16 04:00 98.9 89 18 138/71 95 06/30/16 00:00 99.0 77 18 112/57 96 06/29/16 22:15 93 T-piece 6.00 28 06/29/16 20:19 78 06/29/16 20:00 98.2 78 18 122/61 93 06/29/16 19:32 T-Piece 5.00 28 06/29/16 17:08 81 20 118/67 06/29/16 16:06 99.0 82 22 128/76 97 I/O 06/29/16 06/29/16 06/29/16 06/30/16 06/30/16 06/30/16 07:00 15:00 23:00 07:00 15:00 23:00 Intake Total 0 ml 0 ml 1940 ml 400 ml Output Total 0 ml 3500 ml 0 ml 0 ml Balance 0 ml -3500 ml 1940 ml 400 ml Intake Oral 0 ml 0 ml 0 ml 0 ml Tube Feeding 1700 ml 400 ml Other 240 ml Output Urine Total 0 ml 1500 ml 0 ml 0 ml Hemodialysis 2000 ml # Voids 0 # Bowel Movements 1 2 0 0 Result Diagram: 06/28/16 0515 06/28/16 0515 Imaging Last Impressions Chest X-Ray 06/26/16 0000 Signed Impressions: Service Date/Time: Sunday, June 26, 2016 08:39 - CONCLUSION: No acute disease. Jonathon Peters MD FACR Chest CT 06/10/16 0000 Signed Impressions: Service Date/Time: Friday, June 10, 2016 16:11 - CONCLUSION: 1. Patchy infiltrates right upper lobe, left upper lobe and superior segments of the lower lobes. 2. Thickening of the right major fissure. 3. Bilateral gynecomastia. 4. Coronary artery calcifications. Cralitos Aguirre MD Liver Ultrasound 06/06/16 Signed Impressions: Service Date/Time: Monday, June 06, 2016 14:18 - CONCLUSION: 1. Liver slightly echogenic which can be seen with fatty infiltration. 2. Spleen not visualized. 3. There may be some minimal gallbladder sludge but no cholelithiasis or wall thickening. Carlitos Aguirre MD Upper Extremity Ultrasound 06/05/16 Signed Impressions: Service Date/Time: Sunday, June 05, 2016 11:01 - CONCLUSION: Occlusive thrombus right cephalic vein and left basilic vein Shahid Sin MD Lower Extremity Ultrasound 06/05/16 Signed Impressions: Service Date/Time: Sunday, June 05, 2016 16:05 - CONCLUSION: Normal examination. No evidence of DVT Shahid Sin MD Gastrostomy Tube Placement 06/02/16 Signed Impressions: Service Date/Time: Thursday, June 02, 2016 12:31 - CONCLUSION: Uncomplicated gastrostomy tube placement as above. Isidro Flor MD Catheter Placement X-Ray 06/02/16 Signed Impressions: Service Date/Time: Thursday, June 02, 2016 12:31 - CONCLUSION: 1. Uncomplicated line placement as above. 2. Patient currently has a modified left subclavian PermCath catheter that is being utilized as a temporary access. Isidro Flor MD Brain MRI 05/27/16 Signed Impressions: Service Date/Time: Friday, May 27, 2016 12:17 - CONCLUSION: Multifocal bilateral T2 signal abnormalities in restricted diffusion concerning for bilateral lacunar infarcts. Carlitos Aguirre MD Head CT 05/16/16 Signed Impressions: Service Date/Time: Monday, May 16, 2016 08:30 - CONCLUSION: Suspected bilateral basal ganglia calcifications are unchanged. No evidence of hemorrhage, edema, mass or mass effect. Stephen Quintanilla MD Abdomen/Pelvis CT 05/16/16 Signed Impressions: Service Date/Time: Monday, May 16, 2016 08:39 - CONCLUSION: There are large areas of hemorrhage including the left retroperitoneum and psoas muscle, within the mesentery and a smaller area in the right psoas muscle. They don't appear to be related to the abdominal aorta or the internal iliac arteries. There is a small focal collection hemorrhage adjacent to the left external iliac artery as it enters the pelvis, but I don't believe that is related to the large amount of hemorrhage seen elsewhere. The areas of hemorrhage are large and multi-focal. Stephen Quintanilla MD CT Angiography 05/06/16 0000 Signed Impressions: Service Date/Time: Saturday, May 07, 2016 00:04 - CONCLUSION: 1. Lobar consolidation bilaterally in the lower lobes. 2. Negative for pulmonary embolism. Michael Colbert MD Objective Remarks GENERAL: Non verbal, keeps eyes closed SKIN: Warm and dry. HEAD: Normocephalic. EYES: No scleral icterus. No injection or drainage. doesn't open them for me when I call his name NECK: Supple, trachea midline. No JVD or lymphadenopathy. CARDIOVASCULAR: Regular rate and rhythm without murmurs. RESPIRATORY: Breath sounds equal bilaterally. No accessory muscle use. GASTROINTESTINAL: Abdomen soft, non-tender, nondistended. MUSCULOSKELETAL: No cyanosis, or edema. SCDs. 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 Status: Chronic (4) Retroperitoneal bleed ICD Code: R58 Status: Resolved (5) Acute renal failure ICD Code: N17.9 Status: Acute (6) Chronic diastolic congestive heart failure ICD Code: I50.32 Status: Chronic (7) Elevated LFTs ICD Code: R94.5 Status: Resolved (8) Basal ganglia infarction ICD Code: I63.9 Status: Acute (9) Hypertension ICD Code: I10 Status: Chronic (10) Aspiration pneumonia ICD Code: J69.0 Status: Resolved (11) Acute blood loss anemia ICD Code: D62 Status: Resolved (12) Acute thrombosis of left basilic vein ICD Code: I82.612 Status: Acute (13) Acute thrombosis of right cephalic vein ICD Code: I82.611 Status: Acute (14) Diabetes mellitus ICD Code: E11.9 Status: Chronic (15) Sinus pause ICD Code: I45.5 Status: Resolved (16) Wound of skin ICD Code: R23.8 Status: Acute (17) Leukocytosis ICD Code: D72.829 Status: Acute (18) Catheter-associated urinary tract infection ICD Code: T83.511A Status: Acute (19) Hyperkalemia ICD Code: E87.5 Status: Acute (20) Hyperphosphatemia ICD Code: E83.39 Status: Acute (21) Hypermagnesemia ICD Code: E83.41 Status: Acute Assessment and Plan 06/29/16 updated plan: no new changes to management. I discussed w CM and placement is difficult as pt's doesn't want him to go to [facility]. Facilities in the area are limited and those providing HD are not available. 06/1716: no new changes in management. Still waiting on placement. (1) Anoxic-ischemic encephalopathy Plan: Patient status post bilateral basal ganglia infarcts. Neurology following. Patient lethargic and hard to arouse. Neurologic status is unchanged. Patient's tolerating tube feedingson Nepro at 50 an ml's per hour. status post PEG tube placement. (2) CAD (coronary artery disease) Plan: Patient presented with EKG consistent with STEMI. The patient underwent emergent cardiac catheterization which showed mild to moderate CAD similar to cardiac catheterization observed in 2009. EKG changes likely consistent with hypertensive emergency. Not a candidate for anticoagulation due to retroperitoneal bleed. Continue aspirin 81 mg. Cardiology following. 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 CT surgery consulted and cardiology following. (4) Retroperitoneal bleed Plan: Patient status post hemorrhagic shock after a large retroperitoneal bleed , acute blood loss anemia. Sp transfusion of 8 units of PRBC. Bleeding and shock have resolved. Continue to monitor H&H - stable. (5) Acute renal failure Plan: Oliguric renal failure. Patient on hemodialysis. Continue with hemodialysis. BUN and creatinine still remain elevated and patient remains oliguric. Continue to monitor BUN and creatinine, strict input and output. Fu nephrology recommendations. Will need HD upon dialysis. (6) Chronic diastolic congestive heart failure Plan: Continue beta daniel, aspirin, statin on hold. Stable. Echocardiogram performed on 05/06/16 showed a normal systolic function with ejection fraction of 55-60%. (7) Elevated LFTs Plan: Transaminitis resolved. continue to monitor LFT's. Hepatitis panel negative. Liver ultrasound obtained on 06/06/16 showed a slightly echogenic liver which can be seen with fatty infiltration. Spleen not visualized. Minimal gallbladder sludge but no cholelithiasis or wall thickening. (8) Basal ganglia infarction Plan: Follow up neurology recommendations. Continue aspirin 81 mg. The patient is not a candidate for anticoagulation due to recent retroperitoneal bleed. (9) Hypertension Plan: Seems stable with appropriate control. Continue antihypertensive medications including hydralazine 75 mg by mouth every 8 hours, diltiazem 60 mg by mouth 4 times a day, Trileptal 1200 mg by mouth every 8 hours, hydralazine when necessary (10) Aspiration pneumonia Plan: Recent status post treatment with IV cefepime and Levaquin, antibiotics discontinued on 06/16/16. Infectious disease consulted, signed off. (11) Acute blood loss anemia Plan: Secondary to retroperitoneal bleed. Now resolved. Continue to monitor H &H. Hemoglobin stable. (12) Acute thrombosis of left basilic vein Plan: Right cephalic vein superficial thrombosis, left basilic vein thrombus, posterior tibial thrombus. Hematology consulted, appreciate recommendations. Continue aspirin. The patient is on prophylactic dose heparin 5000 units subcutaneous twice a day. Monitor for any potential bleed. (13) Acute thrombosis of right cephalic vein Plan: As above. (14) Diabetes mellitus Plan: Hemoglobin A1c 7.1. Diabetes still with uncontrolled hyperglycemia. Hemoglobin A1c 7.1 on 06/26/16 (15) Sinus pause Plan: Patient had one episode of 2 very short left sinus pauses. Telemetry reviewed by me. Sinus pause has not repeated itself. Continue to monitor on telemetry. If sinus pause continues then we will continue beta daniel. 06/23/16 No further pauses on telemetry. (16) Wound of skin Plan: Patient has a small open area under trach collar. Continue to clean with Betadine and leave to open area. Wound seems to be better and healing. (17) Leukocytosis Plan: WBC trending up from 11.8-2.6. Patient has been afebrile, perhaps some more rhonchi and sputum production noticed. Will continue to monitor CBC with differential. If continues to trend up then will obtain further studies. 06/26 WBC continues to trend up from 12.6 to 13.9 and patient has increased sputum production. No fevers. I check a chest x ray to r/o asp/HCAP PNA, check sputum culture and also check a urinalysis. 06/27 WBC now down to 11.3. No fevers. UA (+) with budding yeasts. Start the patient on IV Cefepime, IV Fluconazole, Consult infectious disease and replace blake catheter. Continue to monitor CBC with differential. 06/28 appreciate ID consultation recommendations. IV cefepime discontinued as per ID. Fluconazole IV discontinued, switched to oral at 400 mg by mouth every 48 hours. GI prophylaxis: Continue PPI. DVT prophylaxis: SCDs, no chemoprophylaxis given retroperitoneal bleed with hemorrhagic shock. Discharge Planning Patient is stable for discharge. The patient will need to be placed on a long- term care facility. Discussed the case with disability case manager that states that the only place available is at [facility] where they can also take care of the patient's trach and they have hemodialysis in-house. This was discussed with the however as per the disability case manager, the states that [facility] would be too far for them. CM will again speak to today regarding d/c planning. Per Dr. Walters's note, he has already explained to the patient that the patient's neurological deficit is most likely permanent. 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 Problem Qualifiers (1) CAD (coronary artery disease): Qualified Code: I25.10 - Coronary artery disease, angina presence unspecified, unspecified vessel or lesion type, unspecified whether [place] or transplanted heart (2) Acute renal failure: Qualified Code: N17.0 - Acute renal failure with tubular necrosis (3) Hypertension: Qualified Code: I10 - Essential hypertension (4) Diabetes mellitus: Qualified Code: E13.8 - Diabetes mellitus of other type with complication, unspecified long term acute care registered nurse insulin use status (5) Leukocytosis: Qualified Code: D72.829 - Leukocytosis, unspecified type (6) Catheter-associated urinary tract infection: Qualified Code: T83.511A - Urinary tract infection associated with indwelling urethral catheter, initial encounter Johanna Lemus MD Jun 30, 2016 14:49
[2016-07-01] VITALS (13 sets, daily range): BP systolic 107–121; BP diastolic 59–66; PULSE 70–89; RESP 16–21; TEMP 98.2–98.8; O2SAT 96–100
[2016-07-01] MEDS: LABETALOL HCL 200 MG TAB PO SCH ×3 (05:55→21:09)
[2016-07-01] MEDS: hydrALAZINE HCL 25 MG TAB PO SCH ×3 (05:55→21:10)
[2016-07-01] MEDS: INSULIN ASPART SUPPLEMENTAL SCALE SQ SCH ×4 (05:55→21:12)
[2016-07-01 07:04] LABS: HEMATOCRIT 35.1 % (39.0-51.0); MEAN CELL VOLUME 90.3 FL (80.0-100.0); MEAN CORPUSCULAR HEMOGLOBIN 28.8 PG (27.0-34.0); MEAN CORPUSCULAR HGB CONC 31.8 % (32.0-36.0); PLATELET COUNT 276 TH/MM3 (150-450); RED BLOOD COUNT 3.89 MIL/MM3 (4.50-5.90); RED CELL DISTRIBUTION WIDTH 17.8 % (11.6-17.2); REVIEW FLAG FINAL; WHITE BLOOD COUNT 11.2 TH/MM3 (4.0-11.0)
[2016-07-01] MEDS: CHLORHEXIDINE 0.12% (ORAL KIT) 15 ML CUP MT SCH ×2 (08:00→20:00)
[2016-07-01] MEDS: PANTOPRAZOLE SODIUM 40 MG VIAL IV PUSH SCH (08:31)
[2016-07-01] MEDS: INSULIN DETEMIR 100 UNITS/ML VIAL SQ SCH ×2 (08:31→21:12)
[2016-07-01] MEDS: ASPIRIN 81 MG CHEW TAB CHEW SCH (08:32)
[2016-07-01] MEDS: HEPARIN SODIUM - SQ 10,000 UNITS/ML VIAL SQ SCH ×2 (08:32→21:10)
[2016-07-01] MEDS: NYSTATIN 100,000 U/GM PWD 15 GM BTL TOPICAL SCH ×2 (08:33→21:13)
[2016-07-01] MEDS: ARTIFICIAL TEARS OPTH SOLN 15 ML BTL EACH EYE SCH ×3 (08:33→18:00)
[2016-07-01] MEDS: SODIUM CHLORIDE 0.9% FLUSH 5 ML FLUSH IV FLUSH SCH ×2 (08:33→21:13)
[2016-07-01] MEDS: DILTIAZEM HCL 60 MG TAB PO SCH ×4 (08:33→21:09)
--- NOTE | 2016-07-01 09:35 | HHI.NPPN ---
Subjective History of Present Illness 61 year old with ARF, CHF, Respiratory failure Additional Remarks Patient seen on HD, remain non verbal, has secretions via Trach. Objective Data Data 06/30/16 07/01/16 19:00 07:00 Intake Total 398 ml 417 ml Output Total 260 ml Balance 138 ml 417 ml Intake Oral 0 ml Tube Feeding 398 ml 417 ml Output Urine Total 260 ml # Bowel Movements 2 Vital Signs Date Time Temp Pulse Resp B/P Pulse Ox O2 Delivery O2 Flow Rate FiO2 07/01/16 08:20 98.5 76 21 114/64 100 07/01/16 08:00 75 07/01/16 08:00 T-Piece 5.00 28 07/01/16 04:00 98.4 76 16 118/66 98 07/01/16 00:00 98.5 74 20 107/59 97 06/30/16 20:00 97.6 74 18 125/68 97 06/30/16 19:34 T-Piece 5.00 28 06/30/16 17:50 99 T-piece 6.00 28 06/30/16 17:44 75 20 118/70 06/30/16 16:07 96.9 74 22 115/66 95 06/30/16 12:06 99.5 78 22 122/74 99 -: 07/01/16 0625 06/28/16 0515 Physical Exam General Appearance: No Acute Distress, Comfortable, Obese Appearance Remarks Intubated and off sedation. Neck Neck Exam: Neck Supple Pulmonary Resp Exam: Rhonchi, Decreased Bases, Diminished Breath Sounds, Poor Inspiratory Effort Cardiology CV Exam: Tachycardia Gastrointestinal/Abdomen GI Exam: Soft, Non-Tender, Distended Extremeties Extremities Exam: Moderate Edema, Pitting Edema, Dependent Edema Neurologic Neuro Exam: Unresponsive Assessment/Plan Problem List: (1) Acute renal failure Plan: Patient has acute renal failure BUN and Creatinine remain high Continue HD, watch for any renal recovery. 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 Plan: Cardiology following (4) Acute hypoxemic respiratory failure Plan: Off ventilator (5) Hypertensive emergency Plan: BP improved (6) Diabetes mellitus Plan: Continue monitor blood glucose (7) CAD (coronary artery disease) Plan: Presented with STEMI, follow with cardiology (8) Subsequent ST elevation (STEMI) myocardial infarction of anterior wall Problem Qualifiers (1) Acute renal failure: Qualified Code: N17.0 - Acute renal failure with tubular necrosis (2) Diabetes mellitus: Qualified Code: E13.8 - Diabetes mellitus of other type with complication, unspecified prison insulin use status (3) CAD (coronary artery disease): Qualified Code: I25.10 - Coronary artery disease, angina presence unspecified, unspecified vessel or lesion type, unspecified whether [place] or transplanted heart Renee Bhat MD Jul 01, 2016 09:34
[2016-07-01] MEDS: GENTAMICIN SULFATE (DIALYSIS USE ONLY) 20 MG/2 ML VIAL IV PRN (10:34)
[2016-07-01] MEDS: HEPARIN SODIUM - IV 10,000 UNITS/10 ML VIAL PRN (10:34)
[2016-07-01] MEDS: EPOETIN ALFA 10,000 UNITS/ML VIAL IV PRN (10:34)
--- NOTE | 2016-07-01 16:20 | HHI.PR ---
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 Eyes open today Objective Vitals Vital Signs Date Time Temp Pulse Resp B/P Pulse Ox O2 Delivery O2 Flow Rate FiO2 07/01/16 12:19 07/01/16 12:00 72 07/01/16 08:20 98.5 76 21 114/64 100 07/01/16 08:03 97 T-piece 28 07/01/16 08:00 75 07/01/16 08:00 T-Piece 5.00 28 07/01/16 04:00 98.4 76 16 118/66 98 07/01/16 00:00 98.5 74 20 107/59 97 06/30/16 20:00 97.6 74 18 125/68 97 06/30/16 19:34 T-Piece 5.00 28 06/30/16 17:50 99 T-piece 6.00 28 06/30/16 17:44 75 20 118/70 I/O 06/30/16 06/30/16 06/30/16 07/01/16 07/01/16 07/01/16 07:00 15:00 23:00 07:00 15:00 23:00 Intake Total 400 ml 398 ml 417 ml Output Total 0 ml 260 ml Balance 400 ml 138 ml 417 ml Intake Oral 0 ml 0 ml Tube Feeding 400 ml 398 ml 417 ml Output Urine Total 0 ml 260 ml # Bowel Movements 0 2 Result Diagram: 07/01/16 0625 06/28/16 0515 Imaging Last Impressions Chest X-Ray 06/26/16 0000 Signed Impressions: Service Date/Time: Sunday, June 26, 2016 08:39 - CONCLUSION: No acute disease. Jonathon Peters MD FACR Chest CT 06/10/16 0000 Signed Impressions: Service Date/Time: Friday, June 10, 2016 16:11 - CONCLUSION: 1. Patchy infiltrates right upper lobe, left upper lobe and superior segments of the lower lobes. 2. Thickening of the right major fissure. 3. Bilateral gynecomastia. 4. Coronary artery calcifications. Carlitos Aguirre MD Liver Ultrasound 06/06/16 0000 Signed Impressions: Service Date/Time: Monday, June 06, 2016 14:18 - CONCLUSION: 1. Liver slightly echogenic which can be seen with fatty infiltration. 2. Spleen not visualized. 3. There may be some minimal gallbladder sludge but no cholelithiasis or wall thickening. Carlitos Aguirre MD Upper Extremity Ultrasound 06/05/16 Signed Impressions: Service Date/Time: Sunday, June 05, 2016 11:01 - CONCLUSION: Occlusive thrombus right cephalic vein and left basilic vein Shahid Sin MD Lower Extremity Ultrasound 06/05/16 Signed Impressions: Service Date/Time: Sunday, June 05, 2016 16:05 - CONCLUSION: Normal examination. No evidence of DVT Shahid Sin MD Gastrostomy Tube Placement 06/02/16 Signed Impressions: Service Date/Time: Thursday, June 02, 2016 12:31 - CONCLUSION: Uncomplicated gastrostomy tube placement as above. Isidro Flor MD Catheter Placement X-Ray 06/02/16 Signed Impressions: Service Date/Time: Thursday, June 02, 2016 12:31 - CONCLUSION: 1. Uncomplicated line placement as above. 2. Patient currently has a modified left subclavian PermCath catheter that is being utilized as a temporary access. Isidro Flor MD Brain MRI 05/27/16 Signed Impressions: Service Date/Time: Friday, May 27, 2016 12:17 - CONCLUSION: Multifocal bilateral T2 signal abnormalities in restricted diffusion concerning for bilateral lacunar infarcts. Carlitos Aguirre MD Head CT 05/16/16 Signed Impressions: Service Date/Time: Monday, May 16, 2016 08:30 - CONCLUSION: Suspected bilateral basal ganglia calcifications are unchanged. No evidence of hemorrhage, edema, mass or mass effect. Stephen Quinatnilla MD Abdomen/Pelvis CT 05/16/16 0000 Signed Impressions: Service Date/Time: Monday, May 16, 2016 08:39 - CONCLUSION: There are large areas of hemorrhage including the left retroperitoneum and psoas muscle, within the mesentery and a smaller area in the right psoas muscle. They don't appear to be related to the abdominal aorta or the internal iliac arteries. There is a small focal collection hemorrhage adjacent to the left external iliac artery as it enters the pelvis, but I don't believe that is related to the large amount of hemorrhage seen elsewhere. The areas of hemorrhage are large and multi-focal. Stephen Quintanilla MD CT Angiography 05/06/16 0000 Signed Impressions: Service Date/Time: Saturday, May 07, 2016 00:04 - CONCLUSION: 1. Lobar consolidation bilaterally in the lower lobes. 2. Negative for pulmonary embolism. Michael Colbert MD Objective Remarks GENERAL: Non verbal, eyes are open today NECK: Trach in place. CARDIOVASCULAR: Regular rate and rhythm without murmurs. RESPIRATORY: Breath sounds equal bilaterally. No accessory muscle use. GASTROINTESTINAL: Abdomen soft, non-tender, nondistended. MUSCULOSKELETAL: No cyanosis, or edema. SCDs. 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 Status: Chronic (4) Retroperitoneal bleed ICD Code: R58 Status: Resolved (5) Acute renal failure ICD Code: N17.9 Status: Acute (6) Chronic diastolic congestive heart failure ICD Code: I50.32 Status: Chronic (7) Elevated LFTs ICD Code: R94.5 Status: Resolved (8) Basal ganglia infarction ICD Code: I63.9 Status: Acute (9) Hypertension ICD Code: I10 Status: Chronic (10) Aspiration pneumonia ICD Code: J69.0 Status: Resolved (11) Acute blood loss anemia ICD Code: D62 Status: Resolved (12) Acute thrombosis of left basilic vein ICD Code: I82.612 Status: Acute (13) Acute thrombosis of right cephalic vein ICD Code: I82.611 Status: Acute (14) Diabetes mellitus ICD Code: E11.9 Status: Chronic (15) Sinus pause ICD Code: I45.5 Status: Resolved (16) Wound of skin ICD Code: R23.8 Status: Acute (17) Leukocytosis ICD Code: D72.829 Status: Acute (18) Catheter-associated urinary tract infection ICD Code: T83.511A Status: Acute (19) Hyperkalemia ICD Code: E87.5 Status: Acute (20) Hyperphosphatemia ICD Code: E83.39 Status: Acute (21) Hypermagnesemia ICD Code: E83.41 Status: Acute Assessment and Plan 06/29/16 updated plan: no new changes to management. I discussed w CM and placement is difficult as pt's doesn't want him to go to [place]. Facilities in the area are limited and those providing HD are not available. 06/1716: no new changes in management. Still waiting on placement. 07/01/16: no new changes in management. states that CM will be bringing her paperwork for the facilities at [place]. She is not too happy about this (1) Anoxic-ischemic encephalopathy Plan: Patient status post bilateral basal ganglia infarcts. Neurology following. Patient lethargic and hard to arouse. Neurologic status is unchanged. Patient's tolerating tube feedingson Nepro at 50 an ml's per hour. status post PEG tube placement. (2) CAD (coronary artery disease) Plan: Patient presented with EKG consistent with STEMI. The patient underwent emergent cardiac catheterization which showed mild to moderate CAD similar to cardiac catheterization observed in 2009. EKG changes likely consistent with hypertensive emergency. Not a candidate for anticoagulation due to retroperitoneal bleed. Continue aspirin 81 mg. Cardiology following. 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 CT surgery consulted and cardiology following. (4) Retroperitoneal bleed Plan: Patient status post hemorrhagic shock after a large retroperitoneal bleed , acute blood loss anemia. Sp transfusion of 8 units of PRBC. Bleeding and shock have resolved. Continue to monitor H&H - stable. (5) Acute renal failure Plan: Oliguric renal failure. Patient on hemodialysis. Continue with hemodialysis. BUN and creatinine still remain elevated and patient remains oliguric. Continue to monitor BUN and creatinine, strict input and output. Fu nephrology recommendations. Will need HD upon dialysis. (6) Chronic diastolic congestive heart failure Plan: Continue beta daniel, aspirin, statin on hold. Stable. Echocardiogram performed on 05/06/16 showed a normal systolic function with ejection fraction of 55-60%. (7) Elevated LFTs Plan: Transaminitis resolved. continue to monitor LFT's. Hepatitis panel negative. Liver ultrasound obtained on 06/06/16 showed a slightly echogenic liver which can be seen with fatty infiltration. Spleen not visualized. Minimal gallbladder sludge but no cholelithiasis or wall thickening. (8) Basal ganglia infarction Plan: Follow up neurology recommendations. Continue aspirin 81 mg. The patient is not a candidate for anticoagulation due to recent retroperitoneal bleed. (9) Hypertension Plan: Seems stable with appropriate control. Continue antihypertensive medications including hydralazine 75 mg by mouth every 8 hours, diltiazem 60 mg by mouth 4 times a day, Trileptal 1200 mg by mouth every 8 hours, hydralazine when necessary (10) Aspiration pneumonia Plan: Recent status post treatment with IV cefepime and Levaquin, antibiotics discontinued on 06/16/16. Infectious disease consulted, signed off. (11) Acute blood loss anemia Plan: Secondary to retroperitoneal bleed. Now resolved. Continue to monitor H &H. Hemoglobin stable. (12) Acute thrombosis of left basilic vein Plan: Right cephalic vein superficial thrombosis, left basilic vein thrombus, posterior tibial thrombus. Hematology consulted, appreciate recommendations. Continue aspirin. The patient is on prophylactic dose heparin 5000 units subcutaneous twice a day. Monitor for any potential bleed. (13) Acute thrombosis of right cephalic vein Plan: As above. (14) Diabetes mellitus Plan: Hemoglobin A1c 7.1. Diabetes still with uncontrolled hyperglycemia. Hemoglobin A1c 7.1 on 06/26/16 (15) Sinus pause Plan: Patient had one episode of 2 very short left sinus pauses. Telemetry reviewed by me. Sinus pause has not repeated itself. Continue to monitor on telemetry. If sinus pause continues then we will continue beta daniel. 06/23/16 No further pauses on telemetry. (16) Wound of skin Plan: Patient has a small open area under trach collar. Continue to clean with Betadine and leave to open area. Wound seems to be better and healing. (17) Leukocytosis Plan: WBC trending up from 11.8-2.6. Patient has been afebrile, perhaps some more rhonchi and sputum production noticed. Will continue to monitor CBC with differential. If continues to trend up then will obtain further studies. 06/26 WBC continues to trend up from 12.6 to 13.9 and patient has increased sputum production. No fevers. I check a chest x ray to r/o asp/HCAP PNA, check sputum culture and also check a urinalysis. 3/14 WBC now down to 11.3. No fevers. UA (+) with budding yeasts. Start the patient on IV Cefepime, IV Fluconazole, Consult infectious disease and replace blake catheter. Continue to monitor CBC with differential. 06/28 appreciate ID consultation recommendations. IV cefepime discontinued as per ID. Fluconazole IV discontinued, switched to oral at 400 mg by mouth every 48 hours. GI prophylaxis: Continue PPI. DVT prophylaxis: SCDs, no chemoprophylaxis given retroperitoneal bleed with hemorrhagic shock. Discharge Planning Patient is stable for discharge. The patient will need to be placed on a long- term care facility. Discussed the case with case picker that states that the only place available is at [place] where they can also take care of the patient's trach and they have hemodialysis in-house. This was discussed with the however as per the case picker, the states that [place] would be too far for them. CM will again speak to today regarding d/c planning. Per Dr. Walters's note, he has already explained to the patient that the patient's neurological deficit is most likely permanent. 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 Problem Qualifiers (1) CAD (coronary artery disease): Qualified Code: I25.10 - Coronary artery disease, angina presence unspecified, unspecified vessel or lesion type, unspecified whether [place] or transplanted heart (2) Acute renal failure: Qualified Code: N17.0 - Acute renal failure with tubular necrosis (3) Hypertension: Qualified Code: I10 - Essential hypertension (4) Diabetes mellitus: Qualified Code: E13.8 - Diabetes mellitus of other type with complication, unspecified alf insulin use status (5) Leukocytosis: Qualified Code: D72.829 - Leukocytosis, unspecified type (6) Catheter-associated urinary tract infection: Qualified Code: T83.511A - Urinary tract infection associated with indwelling urethral catheter, initial encounter Johanna Lemus MD Jul 01, 2016 16:20
[2016-07-01] MEDS: FLUCONAZOLE 200 MG TAB PO SCH (16:32)
[2016-07-02] VITALS (7 sets, daily range): BP systolic 112–153; BP diastolic 62–83; PULSE 78–85; RESP 18–20; TEMP 98.2–99; O2SAT 96–100
[2016-07-02] MEDS: LABETALOL HCL 200 MG TAB PO SCH ×3 (05:54→21:49)
[2016-07-02] MEDS: hydrALAZINE HCL 25 MG TAB PO SCH ×3 (05:54→21:48)
[2016-07-02] MEDS: INSULIN ASPART SUPPLEMENTAL SCALE SQ SCH ×4 (06:05→21:50)
[2016-07-02] MEDS: CHLORHEXIDINE 0.12% (ORAL KIT) 15 ML CUP MT SCH ×2 (08:00→20:00)
[2016-07-02] MEDS: ASPIRIN 81 MG CHEW TAB CHEW SCH (11:37)
[2016-07-02] MEDS: DILTIAZEM HCL 60 MG TAB PO SCH ×4 (11:37→21:49)
[2016-07-02] MEDS: HEPARIN SODIUM - SQ 10,000 UNITS/ML VIAL SQ SCH ×2 (11:38→21:49)
[2016-07-02] MEDS: PANTOPRAZOLE SODIUM 40 MG VIAL IV PUSH SCH (11:38)
[2016-07-02] MEDS: INSULIN DETEMIR 100 UNITS/ML VIAL SQ SCH ×2 (11:39→21:50)
[2016-07-02] MEDS: SODIUM CHLORIDE 0.9% FLUSH 5 ML FLUSH IV FLUSH SCH ×2 (11:39→20:53)
[2016-07-02] MEDS: NYSTATIN 100,000 U/GM PWD 15 GM BTL TOPICAL SCH ×2 (11:40→21:00)
[2016-07-02] MEDS: ARTIFICIAL TEARS OPTH SOLN 15 ML BTL EACH EYE SCH ×3 (11:40→17:02)
--- NOTE | 2016-07-02 13:26 | HHI.NPPN ---
Subjective History of Present Illness 61 year old with ARF, CHF, Respiratory failure Additional Remarks Patient remain non verbal, has secretions via Trach., with T-Piece. Objective Data Data 07/01/16 07/02/16 19:00 07:00 Output Total 50 ml 50 ml Balance -50 ml -50 ml Output Urine Total 50 ml 50 ml # Bowel Movements 1 1 Vital Signs Date Time Temp Pulse Resp B/P Pulse Ox O2 Delivery O2 Flow Rate FiO2 07/02/16 12:21 98.8 85 20 129/79 100 07/02/16 08:19 98.6 82 20 125/67 97 07/02/16 04:00 98.2 83 20 124/70 96 07/02/16 00:00 98.6 78 20 112/62 96 07/01/16 20:20 86 07/01/16 20:00 98.2 88 20 121/64 96 07/01/16 20:00 Trach Collar 5.50 28 07/01/16 18:00 70 07/01/16 16:24 98.8 89 21 119/66 98 07/01/16 16:00 72 07/01/16 14:00 72 -: 07/01/16 0625 06/28/16 0515 Physical Exam General Appearance: No Acute Distress, Comfortable, Obese Appearance Remarks Intubated and off sedation. Neck Neck Exam: Neck Supple Pulmonary Resp Exam: Rhonchi, Decreased Bases, Diminished Breath Sounds, Poor Inspiratory Effort Cardiology CV Exam: Tachycardia Gastrointestinal/Abdomen GI Exam: Soft, Non-Tender, Distended Extremeties Extremities Exam: Moderate Edema, Pitting Edema, Dependent Edema Neurologic Neuro Exam: Unresponsive Assessment/Plan Problem List: (1) Acute renal failure Plan: Patient has acute renal failure BUN and Creatinine remain high Continue HD TTS. watch for any renal recovery. Urine out put is low. 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 Plan: Cardiology following (4) Acute hypoxemic respiratory failure Plan: Off ventilator (5) Hypertensive emergency Plan: BP improved (6) Diabetes mellitus Plan: Continue monitor blood glucose (7) CAD (coronary artery disease) Plan: Presented with STEMI, follow with cardiology (8) Subsequent ST elevation (STEMI) myocardial infarction of anterior wall Problem Qualifiers (1) Acute renal failure: Qualified Code: N17.0 - Acute renal failure with tubular necrosis (2) Diabetes mellitus: Qualified Code: E13.8 - Diabetes mellitus of other type with complication, unspecified terminal carman insulin use status (3) CAD (coronary artery disease): Qualified Code: I25.10 - Coronary artery disease, angina presence unspecified, unspecified vessel or lesion type, unspecified whether [place] or transplanted heart Renee Bhat MD Jul 02, 2016 13:25
--- NOTE | 2016-07-02 13:47 | HHI.PR ---
Subjective Remarks non verbal at bedside. No concerns at this time. Objective Vitals Vital Signs Date Time Temp Pulse Resp B/P Pulse Ox O2 Delivery O2 Flow Rate FiO2 07/02/16 12:21 98.8 85 20 129/79 100 07/02/16 08:19 98.6 82 20 125/67 97 07/02/16 04:00 98.2 83 20 124/70 96 07/02/16 00:00 98.6 78 20 112/62 96 07/01/16 20:20 86 07/01/16 20:00 98.2 88 20 121/64 96 07/01/16 20:00 Trach Collar 5.50 28 07/01/16 18:00 70 07/01/16 16:24 98.8 89 21 119/66 98 07/01/16 16:00 72 07/01/16 14:00 72 I/O 07/01/16 07/01/16 07/01/16 07/02/16 07/02/16 07/02/16 07:00 15:00 23:00 07:00 15:00 23:00 Intake Total 417 ml Output Total 50 ml 25 ml 25 ml Balance 417 ml -50 ml -25 ml -25 ml Tube Feeding 417 ml Output Urine Total 50 ml 25 ml 25 ml # Bowel Movements 1 1 Result Diagram: 07/01/16 0625 06/28/16 0515 Imaging Last Impressions Chest X-Ray 06/26/16 0000 Signed Impressions: Service Date/Time: Sunday, June 26, 2016 08:39 - CONCLUSION: No acute disease. Jonathon Peters MD FACR Chest CT 06/10/16 0000 Signed Impressions: Service Date/Time: Friday, June 10, 2016 16:11 - CONCLUSION: 1. Patchy infiltrates right upper lobe, left upper lobe and superior segments of the lower lobes. 2. Thickening of the right major fissure. 3. Bilateral gynecomastia. 4. Coronary artery calcifications. Carlitos Aguirre MD Liver Ultrasound 06/06/16 0000 Signed Impressions: Service Date/Time: Monday, June 06, 2016 14:18 - CONCLUSION: 1. Liver slightly echogenic which can be seen with fatty infiltration. 2. Spleen not visualized. 3. There may be some minimal gallbladder sludge but no cholelithiasis or wall thickening. Carlitos Aguirre MD Upper Extremity Ultrasound 06/05/16 0000 Signed Impressions: Service Date/Time: Sunday, June 05, 2016 11:01 - CONCLUSION: Occlusive thrombus right cephalic vein and left basilic vein Shahid Sin MD Lower Extremity Ultrasound 06/05/16 0000 Signed Impressions: Service Date/Time: Sunday, June 05, 2016 16:05 - CONCLUSION: Normal examination. No evidence of DVT Shahid Sin MD Gastrostomy Tube Placement 06/02/16 Signed Impressions: Service Date/Time: Thursday, June 02, 2016 12:31 - CONCLUSION: Uncomplicated gastrostomy tube placement as above. Isidro Flor MD Catheter Placement X-Ray 06/02/16 Signed Impressions: Service Date/Time: Thursday, June 02, 2016 12:31 - CONCLUSION: 1. Uncomplicated line placement as above. 2. Patient currently has a modified left subclavian PermCath catheter that is being utilized as a temporary access. Isidro Flor MD Brain MRI 05/27/16 Signed Impressions: Service Date/Time: Friday, May 27, 2016 12:17 - CONCLUSION: Multifocal bilateral T2 signal abnormalities in restricted diffusion concerning for bilateral lacunar infarcts. Carlitos Aguirre MD Head CT 05/16/16 Signed Impressions: Service Date/Time: Monday, May 16, 2016 08:30 - CONCLUSION: Suspected bilateral basal ganglia calcifications are unchanged. No evidence of hemorrhage, edema, mass or mass effect. Stephen Quintanilla MD Abdomen/Pelvis CT 05/16/16 0000 Signed Impressions: Service Date/Time: Monday, May 16, 2016 08:39 - CONCLUSION: There are large areas of hemorrhage including the left retroperitoneum and psoas muscle, within the mesentery and a smaller area in the right psoas muscle. They don't appear to be related to the abdominal aorta or the internal iliac arteries. There is a small focal collection hemorrhage adjacent to the left external iliac artery as it enters the pelvis, but I don't believe that is related to the large amount of hemorrhage seen elsewhere. The areas of hemorrhage are large and multi-focal. Stephen Quintanilla MD CT Angiography 05/06/16 0000 Signed Impressions: Service Date/Time: Saturday, May 07, 2016 00:04 - CONCLUSION: 1. Lobar consolidation bilaterally in the lower lobes. 2. Negative for pulmonary embolism. Michael Colbert MD Objective Remarks GENERAL: Non verbal, keeps eyes closed NECK: Trach in place. CARDIOVASCULAR: Regular rate and rhythm without murmurs. RESPIRATORY: Breath sounds equal bilaterally. No accessory muscle use. GASTROINTESTINAL: Abdomen soft, non-tender, nondistended. MUSCULOSKELETAL: No cyanosis, or edema. SCDs. 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 Status: Chronic (4) Retroperitoneal bleed ICD Code: R58 Status: Resolved (5) Acute renal failure ICD Code: N17.9 Status: Acute (6) Chronic diastolic congestive heart failure ICD Code: I50.32 Status: Chronic (7) Elevated LFTs ICD Code: R94.5 Status: Resolved (8) Basal ganglia infarction ICD Code: I63.9 Status: Acute (9) Hypertension ICD Code: I10 Status: Chronic (10) Aspiration pneumonia ICD Code: J69.0 Status: Resolved (11) Acute blood loss anemia ICD Code: D62 Status: Resolved (12) Acute thrombosis of left basilic vein ICD Code: I82.612 Status: Acute (13) Acute thrombosis of right cephalic vein ICD Code: I82.611 Status: Acute (14) Diabetes mellitus ICD Code: E11.9 Status: Chronic (15) Sinus pause ICD Code: I45.5 Status: Resolved (16) Wound of skin ICD Code: R23.8 Status: Acute (17) Leukocytosis ICD Code: D72.829 Status: Acute (18) Catheter-associated urinary tract infection ICD Code: T83.511A Status: Acute (19) Hyperkalemia ICD Code: E87.5 Status: Acute (20) Hyperphosphatemia ICD Code: E83.39 Status: Acute () Hypermagnesemia ICD Code: E83.41 Status: Acute Assessment and Plan 06/29/16 updated plan: no new changes to management. I discussed w CM and placement is difficult as pt's doesn't want him to go to [place]. Facilities in the area are limited and those providing HD are not available. 06/1716: no new changes in management. Still waiting on placement. 07/01/16: no new changes in management. states that CM will be bringing her paperwork for the facilities at [place]. She is not too happy about this 07/02/16: no new changes. has no concerns at this time. 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 (1) Anoxic-ischemic encephalopathy Plan: Patient status post bilateral basal ganglia infarcts. Neurologic status is unchanged. Patient's tolerating tube feedingson Nepro at 50 an ml's per hour. status post PEG tube placement. (2) CAD (coronary artery disease) Plan: Patient presented with EKG consistent with STEMI. The patient underwent emergent cardiac catheterization which showed mild to moderate CAD similar to cardiac catheterization observed in 2009. EKG changes likely consistent with hypertensive emergency. Not a candidate for anticoagulation due to retroperitoneal bleed. Continue aspirin 81 mg. Cardiology following. 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 CT surgery consulted and cardiology following. (4) Retroperitoneal bleed Plan: Patient status post hemorrhagic shock after a large retroperitoneal bleed , acute blood loss anemia. Sp transfusion of 8 units of PRBC. Bleeding and shock have resolved. Continue to monitor H&H - stable. (5) Acute renal failure Plan: Oliguric renal failure. Patient on hemodialysis. Continue with hemodialysis. BUN and creatinine still remain elevated and patient remains oliguric. Continue to monitor BUN and creatinine, strict input and output. Fu nephrology recommendations. on HD (6) Chronic diastolic congestive heart failure Plan: Continue beta daniel, aspirin, statin on hold. Stable. Echocardiogram performed on 05/06/16 showed a normal systolic function with ejection fraction of 55-60%. (7) Elevated LFTs Plan: Transaminitis resolved. continue to monitor LFT's. Hepatitis panel negative. Liver ultrasound obtained on 06/06/16 showed a slightly echogenic liver which can be seen with fatty infiltration. Spleen not visualized. Minimal gallbladder sludge but no cholelithiasis or wall thickening. (8) Basal ganglia infarction Plan: Follow up neurology recommendations. Continue aspirin 81 mg. The patient is not a candidate for anticoagulation due to recent retroperitoneal bleed. (9) Hypertension Plan: Seems stable with appropriate control. Continue antihypertensive medications including hydralazine 75 mg by mouth every 8 hours, diltiazem 60 mg by mouth 4 times a day, Trileptal 1200 mg by mouth every 8 hours, hydralazine when necessary (10) Aspiration pneumonia Plan: Recent status post treatment with IV cefepime and Levaquin, antibiotics discontinued on 06/16/16. Infectious disease consulted, signed off. (11) Acute blood loss anemia Plan: Secondary to retroperitoneal bleed. Now resolved. Continue to monitor H &H. Hemoglobin stable. (12) Acute thrombosis of left basilic vein Plan: Right cephalic vein superficial thrombosis, left basilic vein thrombus, posterior tibial thrombus. Hematology consulted, appreciate recommendations. Continue aspirin. The patient is on prophylactic dose heparin 5000 units subcutaneous twice a day. Monitor for any potential bleed. (13) Acute thrombosis of right cephalic vein Plan: As above. (14) Diabetes mellitus Plan: Hemoglobin A1c 7.1. Diabetes still with uncontrolled hyperglycemia. Hemoglobin A1c 7.1 on 06/26/16 (15) Sinus pause Plan: Patient had one episode of 2 very short left sinus pauses. Telemetry reviewed by me. Sinus pause has not repeated itself. Continue to monitor on telemetry. If sinus pause continues then we will continue beta daniel. 06/23/16 No further pauses on telemetry. (16) Wound of skin Plan: Patient has a small open area under trach collar. Continue to clean with Betadine and leave to open area. Wound seems to be better and healing. (17) Leukocytosis Plan: stable GI prophylaxis: Continue PPI. DVT prophylaxis: SCDs, no chemoprophylaxis given retroperitoneal bleed with hemorrhagic shock. Discharge Planning Patient is stable for discharge. The patient will need to be placed on a long- term care facility. Discussed the case with continuous pillowcase cutter that states that the only place available is at [place] where they can also take care of the patient's trach and they have hemodialysis in-house. This was discussed with the however as per the continuous pillowcase cutter, the states that [place] would be too far for them, however it appears now that she may be agreeable to going to [place]. CM assisting w placement. Problem Qualifiers (1) CAD (coronary artery disease): Qualified Code: I25.10 - Coronary artery disease, angina presence unspecified, unspecified vessel or lesion type, unspecified whether [place] or transplanted heart (2) Acute renal failure: Qualified Code: N17.0 - Acute renal failure with tubular necrosis (3) Hypertension: Qualified Code: I10 - Essential hypertension (4) Diabetes mellitus: Qualified Code: E13.8 - Diabetes mellitus of other type with complication, unspecified senior care insulin use status (5) Leukocytosis: Qualified Code: D72.829 - Leukocytosis, unspecified type (6) Catheter-associated urinary tract infection: Qualified Code: T83.511A - Urinary tract infection associated with indwelling urethral catheter, initial encounter Johanna Lemus MD Jul 02, 2016 13:47
[2016-07-03] VITALS (9 sets, daily range): BP systolic 105–143; BP diastolic 56–74; PULSE 73–85; RESP 16–20; TEMP 97.6–98.8; O2SAT 92–99
[2016-07-03] MEDS: hydrALAZINE HCL 25 MG TAB PO SCH ×3 (05:40→21:58)
[2016-07-03] MEDS: LABETALOL HCL 200 MG TAB PO SCH ×3 (05:40→21:57)
[2016-07-03 06:10] LABS: AUTOMATED NEUTROPHIL # 7.5 TH/MM3 (1.8-7.7); BASOPHIL # 0.1 TH/MM3 (0-0.2); BASOPHIL % 1.1 % (0.0-2.0); EOSINOPHIL # 0.2 TH/MM3 (0-0.4); EOSINOPHIL % 2.1 % (0.0-4.0); HEMATOCRIT 35.4 % (39.0-51.0); HEMO FLAGS DIFF FINAL; LYMPH % 15.8 % (9.0-44.0); LYMPHOCYTE # 1.6 TH/MM3 (1.0-4.8); MEAN CELL VOLUME 89.7 FL (80.0-100.0); MEAN CORPUSCULAR HEMOGLOBIN 29.3 PG (27.0-34.0); MEAN CORPUSCULAR HGB CONC 32.7 % (32.0-36.0); MONO % 8.3 % (0.0-8.0); NEUT % 72.7 % (16.0-70.0); PLATELET COUNT 285 TH/MM3 (150-450); RED BLOOD COUNT 3.95 MIL/MM3 (4.50-5.90); RED CELL DISTRIBUTION WIDTH 17.9 % (11.6-17.2); WHITE BLOOD COUNT 10.3 TH/MM3 (4.0-11.0)
[2016-07-03] MEDS: INSULIN ASPART SUPPLEMENTAL SCALE SQ SCH ×4 (06:15→21:00)
[2016-07-03 06:31] LABS: BICARBONATE 26.4 MEQ/L (21.0-32.0); POTASSIUM 4.4 MEQ/L (3.5-5.1)
[2016-07-03] MEDS: CHLORHEXIDINE 0.12% (ORAL KIT) 15 ML CUP MT SCH ×2 (08:00→20:00)
[2016-07-03] MEDS: PANTOPRAZOLE SODIUM 40 MG VIAL IV PUSH SCH (08:34)
[2016-07-03] MEDS: INSULIN DETEMIR 100 UNITS/ML VIAL SQ SCH ×2 (08:36→21:57)
[2016-07-03] MEDS: HEPARIN SODIUM - SQ 10,000 UNITS/ML VIAL SQ SCH ×2 (08:37→21:56)
[2016-07-03] MEDS: ASPIRIN 81 MG CHEW TAB CHEW SCH (08:38)
[2016-07-03] MEDS: DILTIAZEM HCL 60 MG TAB PO SCH ×4 (08:38→21:56)
[2016-07-03] MEDS: SODIUM CHLORIDE 0.9% FLUSH 5 ML FLUSH IV FLUSH SCH ×2 (08:38→21:00)
[2016-07-03] MEDS: NYSTATIN 100,000 U/GM PWD 15 GM BTL TOPICAL SCH ×2 (08:40→21:00)
[2016-07-03] MEDS: ARTIFICIAL TEARS OPTH SOLN 15 ML BTL EACH EYE SCH ×3 (08:43→18:00)
--- NOTE | 2016-07-03 14:50 | HHI.PR ---
Subjective Remarks Follow up encephalopathy, anemia, respiratory failure. Mr. Short remains non- verbal. at bedside states patient is more responsive today. She was able to obtain meaningful blinking on command. Objective Vitals Vital Signs Date Time Temp Pulse Resp B/P Pulse Ox O2 Delivery O2 Flow Rate FiO2 07/03/16 12:00 98.4 79 16 143/74 96 07/03/16 09:00 Trach Collar 5.50 28 07/03/16 08:00 98.8 82 20 128/74 99 07/03/16 04:00 97.7 85 18 105/56 96 07/03/16 00:00 98.6 82 18 123/61 93 07/02/16 21:00 Trach Collar 5.50 28 07/02/16 20:00 82 07/02/16 20:00 T-piece 28 07/02/16 20:00 99.0 85 18 129/68 96 07/02/16 16:32 98.9 85 20 153/83 99 I/O 07/02/16 07/02/16 07/02/16 07/03/16 07/03/16 07/03/16 07:00 15:00 23:00 07:00 15:00 23:00 Intake Total 500 ml 484 ml 0 ml Output Total 25 ml 100 ml 300 ml Balance -25 ml 400 ml 484 ml -300 ml Intake Oral 0 ml Tube Feeding 350 ml 484 ml Tube Irrigant 150 ml Output Urine Total 25 ml 100 ml 300 ml # Bowel Movements 1 1 1 Result Diagram: 07/03/16 0545 07/03/16 0545 Imaging Last Impressions Chest X-Ray 06/26/16 0000 Signed Impressions: Service Date/Time: Sunday, June 26, 2016 08:39 - CONCLUSION: No acute disease. Jonathon Peters MD FACR Chest CT 06/10/16 0000 Signed Impressions: Service Date/Time: Friday, June 10, 2016 16:11 - CONCLUSION: 1. Patchy infiltrates right upper lobe, left upper lobe and superior segments of the lower lobes. 2. Thickening of the right major fissure. 3. Bilateral gynecomastia. 4. Coronary artery calcifications. Carlitos Aguirre MD Liver Ultrasound 06/06/16 0000 Signed Impressions: Service Date/Time: Monday, June 06, 2016 14:18 - CONCLUSION: 1. Liver slightly echogenic which can be seen with fatty infiltration. 2. Spleen not visualized. 3. There may be some minimal gallbladder sludge but no cholelithiasis or wall thickening. Carlitos Aguirre MD Upper Extremity Ultrasound 06/05/16 Signed Impressions: Service Date/Time: Sunday, June 05, 2016 11:01 - CONCLUSION: Occlusive thrombus right cephalic vein and left basilic vein Shahid Sin MD Lower Extremity Ultrasound 06/05/16 Signed Impressions: Service Date/Time: Sunday, June 05, 2016 16:05 - CONCLUSION: Normal examination. No evidence of DVT Shahid iSn MD Gastrostomy Tube Placement 06/02/16 Signed Impressions: Service Date/Time: Thursday, June 02, 2016 12:31 - CONCLUSION: Uncomplicated gastrostomy tube placement as above. Isidro Flor MD Catheter Placement X-Ray 06/02/16 Signed Impressions: Service Date/Time: Thursday, June 02, 2016 12:31 - CONCLUSION: 1. Uncomplicated line placement as above. 2. Patient currently has a modified left subclavian PermCath catheter that is being utilized as a temporary access. Isidro Flor MD Brain MRI 05/27/16 Signed Impressions: Service Date/Time: Friday, May 27, 2016 12:17 - CONCLUSION: Multifocal bilateral T2 signal abnormalities in restricted diffusion concerning for bilateral lacunar infarcts. Carlitos Aguirre MD Head CT 05/16/16 Signed Impressions: Service Date/Time: Monday, May 16, 2016 08:30 - CONCLUSION: Suspected bilateral basal ganglia calcifications are unchanged. No evidence of hemorrhage, edema, mass or mass effect. Stephen Quintanilla MD Abdomen/Pelvis CT 05/16/16 Signed Impressions: Service Date/Time: Monday, May 16, 2016 08:39 - CONCLUSION: There are large areas of hemorrhage including the left retroperitoneum and psoas muscle, within the mesentery and a smaller area in the right psoas muscle. They don't appear to be related to the abdominal aorta or the internal iliac arteries. There is a small focal collection hemorrhage adjacent to the left external iliac artery as it enters the pelvis, but I don't believe that is related to the large amount of hemorrhage seen elsewhere. The areas of hemorrhage are large and multi-focal. Stephen Quintanilla MD CT Angiography 05/06/16 0000 Signed Impressions: Service Date/Time: Saturday, May 07, 2016 00:04 - CONCLUSION: 1. Lobar consolidation bilaterally in the lower lobes. 2. Negative for pulmonary embolism. Michael Colbert MD Objective Remarks GENERAL: Unresponsive. SKIN: Warm and dry. HEAD: Normocephalic. EYES: No scleral icterus. No injection or drainage. NECK: Supple, trachea midline. No JVD or lymphadenopathy. CARDIOVASCULAR: Regular rate and rhythm without murmurs, gallops, or rubs. RESPIRATORY: Breath sounds equal bilaterally. No accessory muscle use. GASTROINTESTINAL: Abdomen soft, non-tender, nondistended. MUSCULOSKELETAL: No cyanosis, or edema. SCDs. 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 Status: Chronic (4) Retroperitoneal bleed ICD Code: R58 Status: Resolved (5) Acute renal failure ICD Code: N17.9 Status: Acute (6) Chronic diastolic congestive heart failure ICD Code: I50.32 Status: Chronic (7) Elevated LFTs ICD Code: R94.5 Status: Resolved (8) Basal ganglia infarction ICD Code: I63.9 Status: Acute (9) Hypertension ICD Code: I10 Status: Chronic (10) Aspiration pneumonia ICD Code: J69.0 Status: Resolved (11) Acute blood loss anemia ICD Code: D62 Status: Resolved (12) Acute thrombosis of left basilic vein ICD Code: I82.612 Status: Acute (13) Acute thrombosis of right cephalic vein ICD Code: I82.611 Status: Acute (14) Diabetes mellitus ICD Code: E11.9 Status: Chronic (15) Sinus pause ICD Code: I45.5 Status: Resolved (16) Wound of skin ICD Code: R23.8 Status: Acute (17) Leukocytosis ICD Code: D72.829 Status: Acute (18) Catheter-associated urinary tract infection ICD Code: T83.511A Status: Acute (19) Hyperkalemia ICD Code: E87.5 Status: Acute (20) Hyperphosphatemia ICD Code: E83.39 Status: Acute (21) Hypermagnesemia ICD Code: E83.41 Status: Acute Assessment and Plan - Hemorrhagic shock status post large retroperitoneal bleed, acute blood loss anemia: Bleeding and shock have resolved. Hemoglobin stable - around 11.2-11.6. - Bilateral basal ganglia infarcts, encephalopathy: Patient appears to move his head somewhat on command although no clear evidence of command following. - Aberrant RCA: Appreciate cardiology and cardiothoracic surgery recommendations. - Chronic diastolic congestive heart failure, coronary artery disease, nonischemic cardiomyopathy: Continue beta daniel, aspirin. Statin on hold. - Hypertension: Continue labetalol, hydralazine, Cardizem. - CAD - Patient presented with EKG consistent with STEMI. The patient underwent emergent cardiac catheterization which showed mild to moderate CAD similar to cardiac catheterization observed in 2009. EKG changes likely consistent with hypertensive emergency. Not a candidate for anticoagulation due to retroperitoneal bleed. Continue aspirin 81 mg. - Acute hypoxemic respiratory failure: Patient was extubated on 05/13/16 and reintubated 05/16/16. Tracheostomy placed 06/01/16. Now off ventilator, tolerating T-piece. Trach management per pulmonology. - Aspiration pneumonia: Completed cefepime, Levaquin on 06/16/16. Appreciate infectious disease recommendations. - Acute renal failure secondary to ATN: Patient is oliguric. Continue hemodialysis per nephrology. - Diabetes mellitus type 2: Monitor Accu-Cheks and cover with sliding scale insulin. Increase Levemir from 20 units BID. Sliding scale insulin with Aspart. - Right cephalic vein superficial thrombus, left basilic vein thrombus, posterior tibial thrombus - Continue aspirin. Nutrition: Continue Nepro at 50 mL/hour. Full code. Heparin SQ. Discharge plan: Patient can be discharged if a facility accepts him. JOYCE is working with [facility] for placement. Problem Qualifiers (1) CAD (coronary artery disease): Qualified Code: I25.10 - Coronary artery disease, angina presence unspecified, unspecified vessel or lesion type, unspecified whether [place] or transplanted heart (2) Acute renal failure: Qualified Code: N17.0 - Acute renal failure with tubular necrosis (3) Hypertension: Qualified Code: I10 - Essential hypertension (4) Diabetes mellitus: Qualified Code: E13.8 - Diabetes mellitus of other type with complication, unspecified group home insulin use status (5) Leukocytosis: Qualified Code: D72.829 - Leukocytosis, unspecified type (6) Catheter-associated urinary tract infection: Qualified Code: T83.511A - Urinary tract infection associated with indwelling urethral catheter, initial encounter Gerson Bustos DO Jul 03, 2016 2:50 pm
--- NOTE | 2016-07-03 16:11 | HHI.PR ---
Subjective Remarks no change OPENS EYES , but no focus track ok dialysis today Objective Vital Signs Date Time Temp Pulse Resp B/P Pulse Ox O2 Delivery O2 Flow Rate FiO2 07/03/16 12:00 98.4 79 16 143/74 96 07/03/16 10:14 95 T-piece 28 07/03/16 09:00 Trach Collar 5.50 28 07/03/16 08:00 98.8 82 20 128/74 99 07/03/16 04:00 97.7 85 18 105/56 96 07/03/16 00:00 98.6 82 18 123/61 93 07/02/16 21:00 Trach Collar 5.50 28 07/02/16 20:00 82 07/02/16 20:00 T-piece 28 07/02/16 20:00 99.0 85 18 129/68 96 07/02/16 16:32 98.9 85 20 153/83 99 I/O 07/02/16 07/02/16 07/02/16 07/03/16 07/03/16 07/03/16 07:00 15:00 23:00 07:00 15:00 23:00 Intake Total 500 ml 484 ml 0 ml Output Total 25 ml 100 ml 300 ml Balance -25 ml 400 ml 484 ml -300 ml Intake Oral 0 ml Tube Feeding 350 ml 484 ml Tube Irrigant 150 ml Output Urine Total 25 ml 100 ml 300 ml # Bowel Movements 1 1 1 Result Diagram: 07/03/16 0545 07/03/16 0545 Objective Remarks GENERAL: SKIN: Warm and dry. HEAD: Atraumatic. Normocephalic. EYES: Pupils equal and round. No scleral icterus. No injection or drainage. ENT: No nasal bleeding or discharge. Mucous membranes pink and moist. NECK: Trachea midline. No JVD. tracheostomy in place CARDIOVASCULAR: Regular rate and rhythm. RESPIRATORY: No accessory muscle use. Clear to auscultation. Breath sounds equal bilaterally. GASTROINTESTINAL: Abdomen soft, non-tender, nondistended. Hepatic and splenic margins not palpable. MUSCULOSKELETAL: Extremities without clubbing, cyanosis, or edema. No obvious deformities. NEUROLOGICAL: Awake and alert. No obvious cranial nerve deficits. Motor grossly within normal limits. Five out of 5 muscle strength in the arms and legs. Normal speech. PSYCHIATRIC: Appropriate mood and affect; insight and judgment normal. Assessment and Plan Assessment and Plan respiratory failure s/p Tracheostomy PLAN 02 as needed pulmonary toilet outlook poor Kj Underwood MD Jul 03, 2016 16:11
--- NOTE | 2016-07-03 17:40 | HHI.NPPN ---
Subjective History of Present Illness 61 year old with ARF, CHF, Respiratory failure Additional Remarks Patient remain non verbal, and via Trach. with T-Piece. Objective Data Data 07/02/16 07/03/16 19:00 07:00 Intake Total 500 ml 484 ml Output Total 100 ml 300 ml Balance 400 ml 184 ml Intake Oral 0 ml Tube Feeding 350 ml 484 ml Tube Irrigant 150 ml Output Urine Total 100 ml 300 ml # Bowel Movements 1 1 Vital Signs Date Time Temp Pulse Resp B/P Pulse Ox O2 Delivery O2 Flow Rate FiO2 07/03/16 16:00 97.6 77 20 116/62 92 07/03/16 12:00 98.4 79 16 143/74 96 07/03/16 10:14 95 T-piece 28 07/03/16 09:00 Trach Collar 5.50 28 07/03/16 08:00 98.8 82 20 128/74 99 07/03/16 04:00 97.7 85 18 105/56 96 07/03/16 00:00 98.6 82 18 123/61 93 07/02/16 21:00 Trach Collar 5.50 28 07/02/16 20:00 82 07/02/16 20:00 T-piece 28 07/02/16 20:00 99.0 85 18 129/68 96 -: 07/03/16 0545 07/03/16 0545 Physical Exam General Appearance: No Acute Distress, Comfortable, Obese Appearance Remarks Intubated and off sedation. Neck Neck Exam: Neck Supple Pulmonary Resp Exam: Rhonchi, Decreased Bases, Diminished Breath Sounds, Poor Inspiratory Effort Cardiology CV Exam: Tachycardia Gastrointestinal/Abdomen GI Exam: Soft, Non-Tender, Distended Extremeties Extremities Exam: Moderate Edema, Pitting Edema, Dependent Edema Neurologic Neuro Exam: Unresponsive Assessment/Plan Problem List: (1) Acute renal failure Plan: Patient has acute renal failure BUN and Creatinine remain high Continue HD TTS. watch for any renal recovery. Urine out put is low. Avoid Nephrotoxins. 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 HD will be in AM. 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 Plan: Cardiology following (4) Acute hypoxemic respiratory failure Plan: Off ventilator (5) Hypertensive emergency Plan: BP improved (6) Diabetes mellitus Plan: Continue monitor blood glucose (7) CAD (coronary artery disease) Plan: Presented with STEMI, follow with cardiology (8) Subsequent ST elevation (STEMI) myocardial infarction of anterior wall Problem Qualifiers (1) Acute renal failure: Qualified Code: N17.0 - Acute renal failure with tubular necrosis (2) Diabetes mellitus: Qualified Code: E13.8 - Diabetes mellitus of other type with complication, unspecified shelter insulin use status (3) CAD (coronary artery disease): Qualified Code: I25.10 - Coronary artery disease, angina presence unspecified, unspecified vessel or lesion type, unspecified whether [place] or transplanted heart Renee Bhat MD Jul 03, 2016 17:40
[2016-07-03] MEDS: FLUCONAZOLE 200 MG TAB PO SCH (18:42)
[2016-07-04] VITALS (9 sets, daily range): BP systolic 117–140; BP diastolic 58–79; PULSE 75–88; RESP 18–22; TEMP 97–99.3; O2SAT 93–99
[2016-07-04] MEDS: INSULIN ASPART SUPPLEMENTAL SCALE SQ SCH ×4 (06:24→21:00)
[2016-07-04] MEDS: LABETALOL HCL 200 MG TAB PO SCH ×3 (06:24→21:06)
[2016-07-04] MEDS: hydrALAZINE HCL 25 MG TAB PO SCH ×3 (06:24→21:06)
[2016-07-04 06:42] LABS: HEMATOCRIT 34.4 % (39.0-51.0); MEAN CELL VOLUME 89.6 FL (80.0-100.0); MEAN CORPUSCULAR HEMOGLOBIN 29.4 PG (27.0-34.0); MEAN CORPUSCULAR HGB CONC 32.8 % (32.0-36.0); PLATELET COUNT 286 TH/MM3 (150-450); RED BLOOD COUNT 3.84 MIL/MM3 (4.50-5.90); RED CELL DISTRIBUTION WIDTH 17.9 % (11.6-17.2); REVIEW FLAG FINAL; WHITE BLOOD COUNT 10.8 TH/MM3 (4.0-11.0)
[2016-07-04] MEDS: CHLORHEXIDINE 0.12% (ORAL KIT) 15 ML CUP MT SCH ×2 (08:00→20:00)
--- NOTE | 2016-07-04 08:49 | HHI.PR ---
Subjective Remarks no change OPENS EYES , but no focus track ok ON dialysis , THIS AM Objective Vital Signs Date Time Temp Pulse Resp B/P Pulse Ox O2 Delivery O2 Flow Rate FiO2 07/04/16 04:00 98.9 87 22 129/62 93 07/04/16 00:34 98.6 75 22 122/70 99 07/03/16 22:09 Trach Collar 5.00 Humidified 07/03/16 21:01 98.4 73 20 124/64 96 07/03/16 20:00 73 07/03/16 16:00 97.6 77 20 116/62 92 07/03/16 12:00 98.4 79 16 143/74 96 07/03/16 10:14 95 T-piece 28 07/03/16 09:00 Trach Collar 5.50 28 I/O 07/03/16 07/03/16 07/03/16 07/04/16 07/04/16 07/04/16 07:00 15:00 23:00 07:00 15:00 23:00 Intake Total 0 ml 0 ml 382 ml 405 ml Output Total 300 ml 200 ml 50 ml 400 ml Balance -300 ml -200 ml 332 ml 5 ml Intake Oral 0 ml 0 ml Tube Feeding 382 ml 405 ml Output Urine Total 300 ml 200 ml 50 ml 400 ml # Bowel Movements 1 0 2 Result Diagram: 07/04/16 0600 07/03/16 0545 Objective Remarks GENERAL: SKIN: Warm and dry. HEAD: Atraumatic. Normocephalic. EYES: Pupils equal and round. No scleral icterus. No injection or drainage. ENT: No nasal bleeding or discharge. Mucous membranes pink and moist. NECK: Trachea midline. No JVD. tracheostomy in place CARDIOVASCULAR: Regular rate and rhythm. RESPIRATORY: No accessory muscle use. Clear to auscultation. Breath sounds equal bilaterally. GASTROINTESTINAL: Abdomen soft, non-tender, nondistended. Hepatic and splenic margins not palpable. MUSCULOSKELETAL: Extremities without clubbing, cyanosis, or edema. No obvious deformities. NEUROLOGICAL: Awake and alert. No obvious cranial nerve deficits. Motor grossly within normal limits. Five out of 5 muscle strength in the arms and legs. Normal speech. PSYCHIATRIC: Appropriate mood and affect; insight and judgment normal. Assessment and Plan Assessment and Plan respiratory failure s/p Tracheostomy RENAL FAILURE ON DIALYSIS PLAN 02 as needed pulmonary toilet outlook poor Kj,Kj Wadie MD Jul 04, 2016 08:49
[2016-07-04] MEDS: DILTIAZEM HCL 60 MG TAB PO SCH ×4 (09:00→21:06)
--- NOTE | 2016-07-04 10:26 | HHI.NPPN ---
Subjective History of Present Illness 61 year old with ARF, CHF, Respiratory failure Additional Remarks Patient remain non verbal, now on HD. Objective Data Data 07/03/16 07/04/16 19:00 07:00 Intake Total 0 ml 787 ml Output Total 200 ml 450 ml Balance -200 ml 337 ml Intake Oral 0 ml Tube Feeding 787 ml Output Urine Total 200 ml 450 ml # Bowel Movements 0 2 Vital Signs Date Time Temp Pulse Resp B/P Pulse Ox O2 Delivery O2 Flow Rate FiO2 07/04/16 09:25 98.7 81 22 117/58 96 07/04/16 04:00 98.9 87 22 129/62 93 07/04/16 00:34 98.6 75 22 122/70 99 07/03/16 22:09 Trach Collar 5.00 Humidified 07/03/16 21:01 98.4 73 20 124/64 96 07/03/16 20:00 73 07/03/16 16:00 97.6 77 20 116/62 92 07/03/16 12:00 98.4 79 16 143/74 96 -: 07/04/16 0600 07/03/16 0545 Physical Exam General Appearance: No Acute Distress, Comfortable, Obese Appearance Remarks Intubated and off sedation. Neck Neck Exam: Neck Supple Pulmonary Resp Exam: Rhonchi, Decreased Bases, Diminished Breath Sounds, Poor Inspiratory Effort Cardiology CV Exam: Tachycardia Gastrointestinal/Abdomen GI Exam: Soft, Non-Tender, Distended Extremeties Extremities Exam: Moderate Edema, Pitting Edema, Dependent Edema Neurologic Neuro Exam: Unresponsive Assessment/Plan Problem List: (1) Acute renal failure Plan: Patient has acute renal failure BUN and Creatinine remain high Continue HD TTS. watch for any renal recovery. Urine out put is low. Avoid Nephrotoxins. Cake [employer] DC planning noted. HD now and remove fluid as tolerated. 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
[2016-07-04] MEDS: HEPARIN SODIUM - IV 10,000 UNITS/10 ML VIAL PRN (11:21)
[2016-07-04] MEDS: GENTAMICIN SULFATE (DIALYSIS USE ONLY) 20 MG/2 ML VIAL IV PRN (11:21)
[2016-07-04] MEDS: SODIUM CHLOR 0.9% 1000 ML INJ 1,000 ML IV PRN (11:23)
--- NOTE | 2016-07-04 12:47 | HHI.PR ---
Subjective Remarks Follow up for encephalopathy, anemia, respiratory failure, renal failure. Mr. Short got back from dialysis today. Opened his eyes. Does not follow command in any meaningful way. Non-verbal. Objective Vitals Vital Signs Date Time Temp Pulse Resp B/P Pulse Ox O2 Delivery O2 Flow Rate FiO2 07/04/16 11:19 Trach Collar 6.00 28 Humidified 07/04/16 09:25 98.7 81 22 117/58 96 07/04/16 08:40 94 T-piece 6.00 28 07/04/16 04:00 98.9 87 22 129/62 93 07/04/16 00:34 98.6 75 22 122/70 99 07/03/16 22:09 Trach Collar 5.00 Humidified 07/03/16 21:01 98.4 73 20 124/64 96 07/03/16 20:00 73 07/03/16 16:00 97.6 77 20 116/62 92 I/O 07/03/16 07/03/16 07/03/16 07/04/16 07/04/16 07/04/16 07:00 15:00 23:00 07:00 15:00 23:00 Intake Total 0 ml 0 ml 382 ml 405 ml Output Total 300 ml 200 ml 50 ml 400 ml 2800 ml Balance -300 ml -200 ml 332 ml 5 ml -2800 ml Intake Oral 0 ml 0 ml Tube Feeding 382 ml 405 ml Output Urine Total 300 ml 200 ml 50 ml 400 ml Hemodialysis 2800 ml # Bowel Movements 1 0 2 Result Diagram: 07/04/16 0600 07/03/16 0545 Imaging Last Impressions Chest X-Ray 06/26/16 0000 Signed Impressions: Service Date/Time: Sunday, June 26, 2016 08:39 - CONCLUSION: No acute disease. Jonathon Peters MD FACR Chest CT 06/10/16 0000 Signed Impressions: Service Date/Time: Friday, June 10, 2016 16:11 - CONCLUSION: 1. Patchy infiltrates right upper lobe, left upper lobe and superior segments of the lower lobes. 2. Thickening of the right major fissure. 3. Bilateral gynecomastia. 4. Coronary artery calcifications. Carlitos Aguirre MD Liver Ultrasound 06/06/16 0000 Signed Impressions: Service Date/Time: Monday, June 06, 2016 14:18 - CONCLUSION: 1. Liver slightly echogenic which can be seen with fatty infiltration. 2. Spleen not visualized. 3. There may be some minimal gallbladder sludge but no cholelithiasis or wall thickening. Carlitos Aguirre MD Upper Extremity Ultrasound 06/05/16 Signed Impressions: Service Date/Time: Sunday, June 05, 2016 11:01 - CONCLUSION: Occlusive thrombus right cephalic vein and left basilic vein Shahid Sin MD Lower Extremity Ultrasound 06/05/16 Signed Impressions: Service Date/Time: Sunday, June 05, 2016 16:05 - CONCLUSION: Normal examination. No evidence of DVT Shahid Sin MD Gastrostomy Tube Placement 06/02/16 Signed Impressions: Service Date/Time: Thursday, June 02, 2016 12:31 - CONCLUSION: Uncomplicated gastrostomy tube placement as above. Isidro Flor MD Catheter Placement X-Ray 06/02/16 Signed Impressions: Service Date/Time: Thursday, June 02, 2016 12:31 - CONCLUSION: 1. Uncomplicated line placement as above. 2. Patient currently has a modified left subclavian PermCath catheter that is being utilized as a temporary access. Isidro Flor MD Brain MRI 05/27/16 Signed Impressions: Service Date/Time: Friday, May 27, 2016 12:17 - CONCLUSION: Multifocal bilateral T2 signal abnormalities in restricted diffusion concerning for bilateral lacunar infarcts. Carlitos Aguirre MD Head CT 05/16/16 Signed Impressions: Service Date/Time: Monday, May 16, 2016 08:30 - CONCLUSION: Suspected bilateral basal ganglia calcifications are unchanged. No evidence of hemorrhage, edema, mass or mass effect. Stephen Quintanilla MD Abdomen/Pelvis CT 05/16/16 Signed Impressions: Service Date/Time: Monday, May 16, 2016 08:39 - CONCLUSION: There are large areas of hemorrhage including the left retroperitoneum and psoas muscle, within the mesentery and a smaller area in the right psoas muscle. They don't appear to be related to the abdominal aorta or the internal iliac arteries. There is a small focal collection hemorrhage adjacent to the left external iliac artery as it enters the pelvis, but I don't believe that is related to the large amount of hemorrhage seen elsewhere. The areas of hemorrhage are large and multi-focal. Stephen Quintanilla MD CT Angiography 05/06/16 0000 Signed Impressions: Service Date/Time: Saturday, May 07, 2016 00:04 - CONCLUSION: 1. Lobar consolidation bilaterally in the lower lobes. 2. Negative for pulmonary embolism. Michael Colbert MD Objective Remarks GENERAL: Unresponsive. SKIN: Warm and dry. HEAD: Normocephalic. EYES: No scleral icterus. No injection or drainage. NECK: Supple, trachea midline. No JVD or lymphadenopathy. CARDIOVASCULAR: Regular rate and rhythm without murmurs, gallops, or rubs. RESPIRATORY: Breath sounds equal bilaterally. No accessory muscle use. GASTROINTESTINAL: Abdomen soft, non-tender, nondistended. MUSCULOSKELETAL: No cyanosis, or edema. SCDs. 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 Status: Chronic (4) Retroperitoneal bleed ICD Code: R58 Status: Resolved (5) Acute renal failure ICD Code: N17.9 Status: Acute (6) Chronic diastolic congestive heart failure ICD Code: I50.32 Status: Chronic (7) Elevated LFTs ICD Code: R94.5 Status: Resolved (8) Basal ganglia infarction ICD Code: I63.9 Status: Acute (9) Hypertension ICD Code: I10 Status: Chronic (10) Aspiration pneumonia ICD Code: J69.0 Status: Resolved (11) Acute blood loss anemia ICD Code: D62 Status: Resolved (12) Acute thrombosis of left basilic vein ICD Code: I82.612 Status: Acute (13) Acute thrombosis of right cephalic vein ICD Code: I82.611 Status: Acute (14) Diabetes mellitus ICD Code: E11.9 Status: Chronic (15) Sinus pause ICD Code: I45.5 Status: Resolved (16) Wound of skin ICD Code: R23.8 Status: Acute (17) Leukocytosis ICD Code: D72.829 Status: Acute (18) Catheter-associated urinary tract infection ICD Code: T83.511A Status: Acute (19) Hyperkalemia ICD Code: E87.5 Status: Acute (20) Hyperphosphatemia ICD Code: E83.39 Status: Acute (21) Hypermagnesemia ICD Code: E83.41 Status: Acute Assessment and Plan - Hemorrhagic shock status post large retroperitoneal bleed, acute blood loss anemia: Bleeding and shock have resolved. Hemoglobin stable - around 11.2-11.6. - Bilateral basal ganglia infarcts, encephalopathy: Patient appears to move his head somewhat on command although no clear evidence of command following. - Aberrant RCA: Appreciate cardiology and cardiothoracic surgery recommendations. - Chronic diastolic congestive heart failure, coronary artery disease, nonischemic cardiomyopathy: Continue beta daniel, aspirin. Statin on hold. - Hypertension: Continue labetalol, hydralazine, Cardizem. - CAD - Patient presented with EKG consistent with STEMI. The patient underwent emergent cardiac catheterization which showed mild to moderate CAD similar to cardiac catheterization observed in 2009. EKG changes likely consistent with hypertensive emergency. Not a candidate for anticoagulation due to retroperitoneal bleed. Continue aspirin 81 mg. - Acute hypoxemic respiratory failure: Patient was extubated on 05/13/16 and reintubated 05/16/16. Tracheostomy placed 06/01/16. Now off ventilator, tolerating T-piece. Trach management per pulmonology. - Aspiration pneumonia: Completed cefepime, Levaquin on 06/16/16. Appreciate infectious disease recommendations. - Acute renal failure secondary to ATN: Patient is oliguric. Continue hemodialysis per nephrology. - Diabetes mellitus type 2: Monitor Accu-Cheks and cover with sliding scale insulin. Increase Levemir from 20 units BID. Sliding scale insulin with Aspart. - Right cephalic vein superficial thrombus, left basilic vein thrombus, posterior tibial thrombus - Continue aspirin. Nutrition: Continue Nepro at 50 mL/hour. Full code. Heparin SQ. Discharge plan 07/04/2016: Patient can be discharged if a facility accepts him. JOYCE is working with [facility] for placement. Problem Qualifiers (1) CAD (coronary artery disease): Qualified Code: I25.10 - Coronary artery disease, angina presence unspecified, unspecified vessel or lesion type, unspecified whether [place] or transplanted heart (2) Acute renal failure: Qualified Code: N17.0 - Acute renal failure with tubular necrosis (3) Hypertension: Qualified Code: I10 - Essential hypertension (4) Diabetes mellitus: Qualified Code: E13.8 - Diabetes mellitus of other type with complication, unspecified half-way insulin use status (5) Leukocytosis: Qualified Code: D72.829 - Leukocytosis, unspecified type (6) Catheter-associated urinary tract infection: Qualified Code: T83.511A - Urinary tract infection associated with indwelling urethral catheter, initial encounter Gerson Bustos DO Jul 04, 2016 12:47 pm
[2016-07-04] MEDS: HEPARIN SODIUM - SQ 10,000 UNITS/ML VIAL SQ SCH ×2 (12:52→21:06)
[2016-07-04] MEDS: PANTOPRAZOLE SODIUM 40 MG VIAL IV PUSH SCH (12:52)
[2016-07-04] MEDS: SODIUM CHLORIDE 0.9% FLUSH 5 ML FLUSH IV FLUSH SCH ×2 (12:53→21:06)
[2016-07-04] MEDS: ASPIRIN 81 MG CHEW TAB CHEW SCH (12:53)
[2016-07-04] MEDS: INSULIN DETEMIR 100 UNITS/ML VIAL SQ SCH ×2 (12:54→21:06)
[2016-07-04] MEDS: NYSTATIN 100,000 U/GM PWD 15 GM BTL TOPICAL SCH ×2 (12:54→21:00)
[2016-07-04] MEDS: ARTIFICIAL TEARS OPTH SOLN 15 ML BTL EACH EYE SCH ×3 (12:55→17:12)
[2016-07-05] VITALS (8 sets, daily range): BP systolic 104–130; BP diastolic 57–80; PULSE 74–89; RESP 16–18; TEMP 97.8–99.5; O2SAT 95–99
[2016-07-05] MEDS: LABETALOL HCL 200 MG TAB PO SCH ×3 (04:46→22:33)
[2016-07-05] MEDS: hydrALAZINE HCL 25 MG TAB PO SCH ×3 (04:46→22:33)
[2016-07-05] MEDS: INSULIN ASPART SUPPLEMENTAL SCALE SQ SCH ×4 (05:33→22:33)
[2016-07-05] MEDS: CHLORHEXIDINE 0.12% (ORAL KIT) 15 ML CUP MT SCH ×2 (08:00→22:34)
[2016-07-05] MEDS: DILTIAZEM HCL 60 MG TAB PO SCH ×4 (08:19→22:32)
[2016-07-05] MEDS: HEPARIN SODIUM - SQ 10,000 UNITS/ML VIAL SQ SCH ×2 (08:19→22:33)
[2016-07-05] MEDS: ASPIRIN 81 MG CHEW TAB CHEW SCH (08:19)
[2016-07-05] MEDS: PANTOPRAZOLE SODIUM 40 MG VIAL IV PUSH SCH (08:19)
[2016-07-05] MEDS: SODIUM CHLORIDE 0.9% FLUSH 5 ML FLUSH IV FLUSH SCH ×2 (08:19→22:34)
[2016-07-05] MEDS: INSULIN DETEMIR 100 UNITS/ML VIAL SQ SCH ×2 (08:20→22:33)
[2016-07-05] MEDS: ARTIFICIAL TEARS OPTH SOLN 15 ML BTL EACH EYE SCH ×3 (08:20→16:53)
[2016-07-05] MEDS: NYSTATIN 100,000 U/GM PWD 15 GM BTL TOPICAL SCH ×2 (08:21→22:34)
--- NOTE | 2016-07-05 13:29 | HHI.PR ---
Subjective Remarks Follow up encephalopathy, respiratory failure. Mr. Short remains nonverbal. He opens his eyes but does not follow any other commands. is at bedside. Patient is waiting for placement. Objective Vitals Vital Signs Date Time Temp Pulse Resp B/P Pulse Ox O2 Delivery O2 Flow Rate FiO2 07/05/16 12:00 98.1 82 16 126/72 96 07/05/16 10:40 Trach Collar 5.00 28 Humidified 07/05/16 10:30 95 T-piece 28 07/05/16 08:00 99.0 89 18 117/68 97 07/05/16 04:00 99.3 88 18 116/63 95 07/05/16 03:58 Trach Collar 5.00 Humidified 07/05/16 00:00 99.5 76 18 104/57 95 07/04/16 20:00 98.4 84 18 123/62 96 07/04/16 20:00 83 07/04/16 17:12 84 120/67 07/04/16 16:30 99.3 81 20 97 I/O 07/04/16 07/04/16 07/04/16 07/05/16 07/05/16 07/05/16 07:00 15:00 23:00 07:00 15:00 23:00 Intake Total 405 ml 2 ml 2 ml Output Total 400 ml 2800 ml 125 ml 0 ml Balance 5 ml -2800 ml -123 ml 2 ml Intake Oral 0 ml 0 ml IV Total 2 ml 2 ml Tube Feeding 405 ml Output Urine Total 400 ml 125 ml 0 ml Hemodialysis 2800 ml # Bowel Movements 2 0 0 Result Diagram: 07/04/16 0600 07/03/16 0545 Imaging Last Impressions Chest X-Ray 06/26/16 0000 Signed Impressions: Service Date/Time: Sunday, June 26, 2016 08:39 - CONCLUSION: No acute disease. Jonathon Peters MD FACR Chest CT 06/10/16 0000 Signed Impressions: Service Date/Time: Friday, June 10, 2016 16:11 - CONCLUSION: 1. Patchy infiltrates right upper lobe, left upper lobe and superior segments of the lower lobes. 2. Thickening of the right major fissure. 3. Bilateral gynecomastia. 4. Coronary artery calcifications. Carlitos Aguirre MD Liver Ultrasound 06/06/16 0000 Signed Impressions: Service Date/Time: Monday, June 06, 2016 14:18 - CONCLUSION: 1. Liver slightly echogenic which can be seen with fatty infiltration. 2. Spleen not visualized. 3. There may be some minimal gallbladder sludge but no cholelithiasis or wall thickening. Carlitos Aguirre MD Upper Extremity Ultrasound 06/05/16 Signed Impressions: Service Date/Time: Sunday, June 05, 2016 11:01 - CONCLUSION: Occlusive thrombus right cephalic vein and left basilic vein Shahid Sin MD Lower Extremity Ultrasound 06/05/16 Signed Impressions: Service Date/Time: Sunday, June 05, 2016 16:05 - CONCLUSION: Normal examination. No evidence of DVT Shahid Sin MD Gastrostomy Tube Placement 06/02/16 Signed Impressions: Service Date/Time: Thursday, June 02, 2016 12:31 - CONCLUSION: Uncomplicated gastrostomy tube placement as above. Isidro Flor MD Catheter Placement X-Ray 06/02/16 Signed Impressions: Service Date/Time: Thursday, June 02, 2016 12:31 - CONCLUSION: 1. Uncomplicated line placement as above. 2. Patient currently has a modified left subclavian PermCath catheter that is being utilized as a temporary access. Isidro Flor MD Brain MRI 05/27/16 Signed Impressions: Service Date/Time: Friday, May 27, 2016 12:17 - CONCLUSION: Multifocal bilateral T2 signal abnormalities in restricted diffusion concerning for bilateral lacunar infarcts. Carlitos Aguirre MD Head CT 05/16/16 Signed Impressions: Service Date/Time: Monday, May 16, 2016 08:30 - CONCLUSION: Suspected bilateral basal ganglia calcifications are unchanged. No evidence of hemorrhage, edema, mass or mass effect. Stephen Quintanilla MD Abdomen/Pelvis CT 05/16/16 Signed Impressions: Service Date/Time: Monday, May 16, 2016 08:39 - CONCLUSION: There are large areas of hemorrhage including the left retroperitoneum and psoas muscle, within the mesentery and a smaller area in the right psoas muscle. They don't appear to be related to the abdominal aorta or the internal iliac arteries. There is a small focal collection hemorrhage adjacent to the left external iliac artery as it enters the pelvis, but I don't believe that is related to the large amount of hemorrhage seen elsewhere. The areas of hemorrhage are large and multi-focal. Stephen Quintanilla MD CT Angiography 05/06/16 0000 Signed Impressions: Service Date/Time: Saturday, May 07, 2016 00:04 - CONCLUSION: 1. Lobar consolidation bilaterally in the lower lobes. 2. Negative for pulmonary embolism. Michael Colbert MD Objective Remarks GENERAL: Unresponsive. SKIN: Warm and dry. HEAD: Normocephalic. EYES: No scleral icterus. No injection or drainage. NECK: Supple, trachea midline. No JVD or lymphadenopathy. CARDIOVASCULAR: Regular rate and rhythm without murmurs, gallops, or rubs. RESPIRATORY: Breath sounds equal bilaterally. No accessory muscle use. GASTROINTESTINAL: Abdomen soft, non-tender, nondistended. MUSCULOSKELETAL: No cyanosis, or edema. SCDs. 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 Status: Chronic (4) Retroperitoneal bleed ICD Code: R58 Status: Resolved (5) Acute renal failure ICD Code: N17.9 Status: Acute (6) Chronic diastolic congestive heart failure ICD Code: I50.32 Status: Chronic (7) Elevated LFTs ICD Code: R94.5 Status: Resolved (8) Basal ganglia infarction ICD Code: I63.9 Status: Acute (9) Hypertension ICD Code: I10 Status: Chronic (10) Aspiration pneumonia ICD Code: J69.0 Status: Resolved (11) Acute blood loss anemia ICD Code: D62 Status: Resolved (12) Acute thrombosis of left basilic vein ICD Code: I82.612 Status: Acute (13) Acute thrombosis of right cephalic vein ICD Code: I82.611 Status: Acute (14) Diabetes mellitus ICD Code: E11.9 Status: Chronic (15) Sinus pause ICD Code: I45.5 Status: Resolved (16) Wound of skin ICD Code: R23.8 Status: Acute (17) Leukocytosis ICD Code: D72.829 Status: Acute (18) Catheter-associated urinary tract infection ICD Code: T83.511A Status: Acute (19) Hyperkalemia ICD Code: E87.5 Status: Acute (20) Hyperphosphatemia ICD Code: E83.39 Status: Acute (21) Hypermagnesemia ICD Code: E83.41 Status: Acute Assessment and Plan - Hemorrhagic shock status post large retroperitoneal bleed, acute blood loss anemia: Bleeding and shock have resolved. Hemoglobin stable - around 11.2-11.6. - Bilateral basal ganglia infarcts, encephalopathy: Patient appears to move his head somewhat on command although no clear evidence of command following. - Aberrant RCA: Appreciate cardiology and cardiothoracic surgery recommendations. - Chronic diastolic congestive heart failure, coronary artery disease, nonischemic cardiomyopathy: Continue beta daniel, aspirin. Statin on hold. - Hypertension: Continue labetalol, hydralazine, Cardizem. - CAD - Patient presented with EKG consistent with STEMI. The patient underwent emergent cardiac catheterization which showed mild to moderate CAD similar to cardiac catheterization observed in 2009. EKG changes likely consistent with hypertensive emergency. Not a candidate for anticoagulation due to retroperitoneal bleed. Continue aspirin 81 mg. - Acute hypoxemic respiratory failure: Patient was extubated on 05/13/16 and reintubated 05/16/16. Tracheostomy placed 06/01/16. Now off ventilator, tolerating T-piece. Trach management per pulmonology. - Aspiration pneumonia: Completed cefepime, Levaquin on 06/16/16. Appreciate infectious disease recommendations. - Acute renal failure secondary to ATN: Patient is oliguric. Continue hemodialysis per nephrology. - Diabetes mellitus type 2: Monitor Accu-Cheks and cover with sliding scale insulin. Increase Levemir from 20 units BID. Sliding scale insulin with Aspart. - Right cephalic vein superficial thrombus, left basilic vein thrombus, posterior tibial thrombus - Continue aspirin. Nutrition: Continue Nepro at 50 mL/hour. Full code. Heparin SQ. Discharge plan 07/05/2016: Patient can be discharged if a facility accepts him. JOYCE is working with [facility] for placement. 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
--- NOTE | 2016-07-05 16:47 | HHI.PR ---
Subjective Remarks no change OPENS EYES , but no focus track ok Objective Vital Signs Date Time Temp Pulse Resp B/P Pulse Ox O2 Delivery O2 Flow Rate FiO2 07/05/16 12:00 98.1 82 16 126/72 96 07/05/16 10:40 Trach Collar 5.00 28 Humidified 07/05/16 10:30 95 T-piece 28 07/05/16 08:00 99.0 89 18 117/68 97 07/05/16 04:00 99.3 88 18 116/63 95 07/05/16 03:58 Trach Collar 5.00 Humidified 07/05/16 00:00 99.5 76 18 104/57 95 07/04/16 20:00 98.4 84 18 123/62 96 07/04/16 20:00 83 07/04/16 17:12 84 120/67 I/O 07/04/16 07/04/16 07/04/16 07/05/16 07/05/16 07/05/16 07:00 15:00 23:00 07:00 15:00 23:00 Intake Total 405 ml 2 ml 2 ml Output Total 400 ml 2800 ml 125 ml 0 ml Balance 5 ml -2800 ml -123 ml 2 ml Intake Oral 0 ml 0 ml IV Total 2 ml 2 ml Tube Feeding 405 ml Output Urine Total 400 ml 125 ml 0 ml Hemodialysis 2800 ml # Bowel Movements 2 0 0 Result Diagram: 07/04/16 0600 07/03/16 0545 Objective Remarks GENERAL: SKIN: Warm and dry. HEAD: Atraumatic. Normocephalic. EYES: Pupils equal and round. No scleral icterus. No injection or drainage. ENT: No nasal bleeding or discharge. Mucous membranes pink and moist. NECK: Trachea midline. No JVD. tracheostomy in place CARDIOVASCULAR: Regular rate and rhythm. RESPIRATORY: No accessory muscle use. Clear to auscultation. Breath sounds equal bilaterally. GASTROINTESTINAL: Abdomen soft, non-tender, nondistended. Hepatic and splenic margins not palpable. MUSCULOSKELETAL: Extremities without clubbing, cyanosis, or edema. No obvious deformities. NEUROLOGICAL: Awake and alert. No obvious cranial nerve deficits. Motor grossly within normal limits. Five out of 5 muscle strength in the arms and legs. Normal speech. PSYCHIATRIC: Appropriate mood and affect; insight and judgment normal. Assessment and Plan Assessment and Plan respiratory failure s/p Tracheostomy RENAL FAILURE ON DIALYSIS PLAN 02 as needed pulmonary toilet outlook poor Kj Underwood MD Jul 05, 2016 16:47
[2016-07-05] MEDS: FLUCONAZOLE 200 MG TAB PO SCH (16:53)
--- NOTE | 2016-07-05 22:22 | HHI.NPPN ---
Subjective History of Present Illness 61 year old with ARF, CHF, Respiratory failure Additional Remarks Patient remain non verbal and unresponsive. Objective Data Data 07/04/16 07/05/16 19:00 07:00 Intake Total 4 ml Output Total 2800 ml 125 ml Balance -2800 ml -121 ml Intake Oral 0 ml IV Total 4 ml Output Urine Total 125 ml Hemodialysis 2800 ml # Bowel Movements 0 Vital Signs Date Time Temp Pulse Resp B/P Pulse Ox O2 Delivery O2 Flow Rate FiO2 07/05/16 20:00 97.8 74 18 130/80 95 07/05/16 16:00 98.0 79 16 121/78 98 07/05/16 12:00 98.1 82 16 126/72 96 07/05/16 10:40 Trach Collar 5.00 28 Humidified 07/05/16 10:30 95 T-piece 28 07/05/16 08:00 99.0 89 18 117/68 97 07/05/16 04:00 99.3 88 18 116/63 95 07/05/16 03:58 Trach Collar 5.00 Humidified 07/05/16 00:00 99.5 76 18 104/57 95 -: 07/04/16 0600 07/03/16 0545 Physical Exam General Appearance: No Acute Distress, Comfortable, Obese Appearance Remarks Intubated and off sedation. Neck Neck Exam: Neck Supple Pulmonary Resp Exam: Rhonchi, Decreased Bases, Diminished Breath Sounds, Poor Inspiratory Effort Cardiology CV Exam: Tachycardia Gastrointestinal/Abdomen GI Exam: Soft, Non-Tender, Distended Extremeties Extremities Exam: Moderate Edema, Pitting Edema, Dependent Edema Neurologic Neuro Exam: Unresponsive Assessment/Plan Problem List: (1) Acute renal failure Plan: Patient has acute renal failure BUN and Creatinine remain high Continue HD TTS. watch for any renal recovery. Urine out put is low. Avoid Nephrotoxins. HD will be again in AM. 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
[2016-07-06] VITALS (8 sets, daily range): BP systolic 102–130; BP diastolic 58–73; PULSE 74–95; RESP 16–22; TEMP 97.8–98.6; O2SAT 92–97
[2016-07-06] MEDS: hydrALAZINE HCL 25 MG TAB PO SCH ×3 (06:30→21:57)
[2016-07-06] MEDS: INSULIN ASPART SUPPLEMENTAL SCALE SQ SCH ×4 (06:30→21:59)
[2016-07-06] MEDS: LABETALOL HCL 200 MG TAB PO SCH ×3 (06:31→21:58)
[2016-07-06] MEDS: ASPIRIN 81 MG CHEW TAB CHEW SCH (08:22)
[2016-07-06] MEDS: PANTOPRAZOLE SODIUM 40 MG VIAL IV PUSH SCH (08:22)
[2016-07-06] MEDS: HEPARIN SODIUM - SQ 10,000 UNITS/ML VIAL SQ SCH ×2 (08:22→21:58)
[2016-07-06] MEDS: DILTIAZEM HCL 60 MG TAB PO SCH ×4 (08:22→21:58)
[2016-07-06] MEDS: SODIUM CHLORIDE 0.9% FLUSH 5 ML FLUSH IV FLUSH SCH ×2 (08:23→21:59)
[2016-07-06] MEDS: INSULIN DETEMIR 100 UNITS/ML VIAL SQ SCH ×2 (08:23→21:58)
[2016-07-06] MEDS: ARTIFICIAL TEARS OPTH SOLN 15 ML BTL EACH EYE SCH ×3 (08:25→18:00)
[2016-07-06] MEDS: NYSTATIN 100,000 U/GM PWD 15 GM BTL TOPICAL SCH ×2 (09:00→21:59)
[2016-07-06] MEDS: EPOETIN ALFA 10,000 UNITS/ML VIAL IV PRN (16:00)
[2016-07-06] MEDS: GENTAMICIN SULFATE (DIALYSIS USE ONLY) 20 MG/2 ML VIAL IV PRN (16:00)
[2016-07-06] MEDS: HEPARIN SODIUM - IV 10,000 UNITS/10 ML VIAL PRN (16:00)
[2016-07-06] MEDS: CHLORHEXIDINE 0.12% (ORAL KIT) 15 ML CUP MT SCH (21:59)
--- NOTE | 2016-07-06 22:02 | HHI.NPPN ---
Subjective History of Present Illness 61 year old with ARF, CHF, Respiratory failure Additional Remarks Patient is clinically same, non verbal and unresponsive. Objective Data Data 07/05/16 07/06/16 19:00 07:00 Intake Total 0 ml 0 ml Output Total 100 ml 200 ml Balance -100 ml -200 ml Intake Oral 0 ml 0 ml Output Urine Total 100 ml 200 ml # Bowel Movements 1 1 Vital Signs Date Time Temp Pulse Resp B/P Pulse Ox O2 Delivery O2 Flow Rate FiO2 07/06/16 20:08 98.6 94 22 117/69 94 07/06/16 16:00 98.2 81 18 129/73 97 07/06/16 12:00 98.5 87 16 130/73 97 07/06/16 08:20 97 T-piece 28 07/06/16 08:00 74 07/06/16 08:00 96 Trach Collar 5.00 28 Humidified 07/06/16 08:00 98.4 76 18 115/65 97 07/06/16 04:58 97.8 82 18 118/64 92 07/06/16 02:24 Trach Collar 5.00 28 Humidified 07/06/16 00:00 98.2 75 18 102/58 96 07/05/16 22:35 99 T-piece 6.00 28 -: 07/04/16 0600 07/03/16 0545 Physical Exam General Appearance: No Acute Distress, Comfortable, Obese Appearance Remarks Intubated and off sedation. Neck Neck Exam: Neck Supple Pulmonary Resp Exam: Rhonchi, Decreased Bases, Diminished Breath Sounds, Poor Inspiratory Effort Cardiology CV Exam: Tachycardia Gastrointestinal/Abdomen GI Exam: Soft, Non-Tender, Distended Extremeties Extremities Exam: Moderate Edema, Pitting Edema, Dependent Edema Neurologic Neuro Exam: Unresponsive Assessment/Plan Problem List: (1) Acute renal failure Plan: Patient has acute renal failure BUN and Creatinine remain high Continue HD TTS. watch for any renal recovery. Urine out put is low. Avoid Nephrotoxins. HD done and 2.7 liters removed. 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
--- NOTE | 2016-07-06 23:39 | HHI.PR ---
Subjective Remarks Follow up encephalopathy, respiratory failure. Mr. Short returned from dialysis. Doing well. is at bedside. Patient remains non-verbal. Opens his eyes but does not follow any commands. Objective Vitals Vital Signs Date Time Temp Pulse Resp B/P Pulse Ox O2 Delivery O2 Flow Rate FiO2 07/06/16 20:08 98.6 94 22 117/69 94 07/06/16 16:00 98.2 81 18 129/73 97 07/06/16 12:00 98.5 87 16 130/73 97 07/06/16 08:20 97 T-piece 28 07/06/16 08:00 74 07/06/16 08:00 96 Trach Collar 5.00 28 Humidified 07/06/16 08:00 98.4 76 18 115/65 97 07/06/16 04:58 97.8 82 18 118/64 92 07/06/16 02:24 Trach Collar 5.00 28 Humidified 07/06/16 00:00 98.2 75 18 102/58 96 I/O 07/05/16 07/05/16 07/05/16 07/06/16 07/06/16 07/06/16 07:00 15:00 23:00 07:00 15:00 23:00 Intake Total 2 ml 0 ml 0 ml 0 ml 1792 ml Output Total 0 ml 100 ml 150 ml 50 ml 2700 ml Balance 2 ml -100 ml -150 ml -50 ml 0 ml -908 ml Intake Oral 0 ml 0 ml 0 ml 0 ml IV Total 2 ml 2 ml Tube Feeding 1790 ml Output Urine Total 0 ml 100 ml 150 ml 50 ml Hemodialysis 2700 ml # Voids 0 # Bowel Movements 0 1 0 1 3 Result Diagram: 07/04/16 0600 07/03/16 0545 Imaging Last Impressions Chest X-Ray 06/26/16 0000 Signed Impressions: Service Date/Time: Sunday, June 26, 2016 08:39 - CONCLUSION: No acute disease. Jonathon Peters MD FACR Chest CT 06/10/16 0000 Signed Impressions: Service Date/Time: Friday, June 10, 2016 16:11 - CONCLUSION: 1. Patchy infiltrates right upper lobe, left upper lobe and superior segments of the lower lobes. 2. Thickening of the right major fissure. 3. Bilateral gynecomastia. 4. Coronary artery calcifications. Carlitos Aguirre MD Liver Ultrasound 06/06/16 Signed Impressions: Service Date/Time: Monday, June 06, 2016 14:18 - CONCLUSION: 1. Liver slightly echogenic which can be seen with fatty infiltration. 2. Spleen not visualized. 3. There may be some minimal gallbladder sludge but no cholelithiasis or wall thickening. Carlitos Aguirre MD Upper Extremity Ultrasound 06/05/16 Signed Impressions: Service Date/Time: Sunday, June 05, 2016 11:01 - CONCLUSION: Occlusive thrombus right cephalic vein and left basilic vein Shahid Sin MD Lower Extremity Ultrasound 06/05/16 Signed Impressions: Service Date/Time: Sunday, June 05, 2016 16:05 - CONCLUSION: Normal examination. No evidence of DVT Shahid Sin MD Gastrostomy Tube Placement 06/02/16 Signed Impressions: Service Date/Time: Thursday, June 02, 2016 12:31 - CONCLUSION: Uncomplicated gastrostomy tube placement as above. Isidro Flor MD Catheter Placement X-Ray 06/02/16 Signed Impressions: Service Date/Time: Thursday, June 02, 2016 12:31 - CONCLUSION: 1. Uncomplicated line placement as above. 2. Patient currently has a modified left subclavian PermCath catheter that is being utilized as a temporary access. Isidro Flor MD Brain MRI 05/27/16 Signed Impressions: Service Date/Time: Friday, May 27, 2016 12:17 - CONCLUSION: Multifocal bilateral T2 signal abnormalities in restricted diffusion concerning for bilateral lacunar infarcts. Carlitos Aguirre MD Head CT 05/16/16 Signed Impressions: Service Date/Time: Monday, May 16, 2016 08:30 - CONCLUSION: Suspected bilateral basal ganglia calcifications are unchanged. No evidence of hemorrhage, edema, mass or mass effect. Stephen Quintanilla MD Abdomen/Pelvis CT 05/16/16 Signed Impressions: Service Date/Time: Monday, May 16, 2016 08:39 - CONCLUSION: There are large areas of hemorrhage including the left retroperitoneum and psoas muscle, within the mesentery and a smaller area in the right psoas muscle. They don't appear to be related to the abdominal aorta or the internal iliac arteries. There is a small focal collection hemorrhage adjacent to the left external iliac artery as it enters the pelvis, but I don't believe that is related to the large amount of hemorrhage seen elsewhere. The areas of hemorrhage are large and multi-focal. Stephen Quintanilla MD CT Angiography 05/06/16 0000 Signed Impressions: Service Date/Time: Saturday, May 07, 2016 00:04 - CONCLUSION: 1. Lobar consolidation bilaterally in the lower lobes. 2. Negative for pulmonary embolism. Michael Colbert MD Objective Remarks GENERAL: Unresponsive. SKIN: Warm and dry. HEAD: Normocephalic. EYES: No scleral icterus. No injection or drainage. NECK: Supple, trachea midline. No JVD or lymphadenopathy. CARDIOVASCULAR: Regular rate and rhythm without murmurs, gallops, or rubs. RESPIRATORY: Breath sounds equal bilaterally. No accessory muscle use. GASTROINTESTINAL: Abdomen soft, non-tender, nondistended. MUSCULOSKELETAL: No cyanosis, or edema. SCDs. 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 Status: Chronic (4) Retroperitoneal bleed ICD Code: R58 Status: Resolved (5) Acute renal failure ICD Code: N17.9 Status: Acute (6) Chronic diastolic congestive heart failure ICD Code: I50.32 Status: Chronic (7) Elevated LFTs ICD Code: R94.5 Status: Resolved (8) Basal ganglia infarction ICD Code: I63.9 Status: Acute (9) Hypertension ICD Code: I10 Status: Chronic (10) Aspiration pneumonia ICD Code: J69.0 Status: Resolved (11) Acute blood loss anemia ICD Code: D62 Status: Resolved (12) Acute thrombosis of left basilic vein ICD Code: I82.612 Status: Acute (13) Acute thrombosis of right cephalic vein ICD Code: I82.611 Status: Acute (14) Diabetes mellitus ICD Code: E11.9 Status: Chronic (15) Sinus pause ICD Code: I45.5 Status: Resolved (16) Wound of skin ICD Code: R23.8 Status: Acute (17) Leukocytosis ICD Code: D72.829 Status: Acute (18) Catheter-associated urinary tract infection ICD Code: T83.511A Status: Acute (19) Hyperkalemia ICD Code: E87.5 Status: Acute (20) Hyperphosphatemia ICD Code: E83.39 Status: Acute (21) Hypermagnesemia ICD Code: E83.41 Status: Acute Assessment and Plan Mr. Short is a 61 year old male who was admitted to the hospital on 05/05/2016 - Hemorrhagic shock status post large retroperitoneal bleed, acute blood loss anemia - Bleeding and shock have resolved. Hemoglobin stable - around 11.2-11.6. - Bilateral basal ganglia infarcts, encephalopathy - Patient appears to move his head somewhat on command although no clear evidence of command following. - Aberrant RCA - Appreciate cardiology and cardiothoracic surgery recommendations. - Chronic diastolic congestive heart failure, coronary artery disease, nonischemic cardiomyopathy - Continue beta daniel, aspirin. Statin on hold. - Hypertension: Continue labetalol, hydralazine, Cardizem. - CAD - Patient presented with EKG consistent with STEMI. The patient underwent emergent cardiac catheterization which showed mild to moderate CAD similar to cardiac catheterization observed in 2009. EKG changes likely consistent with hypertensive emergency. Not a candidate for anticoagulation due to retroperitoneal bleed. Continue aspirin 81 mg. - Acute hypoxemic respiratory failure: Patient was extubated on 05/13/16 and reintubated 05/16/16. Tracheostomy placed 06/01/16. Now off ventilator, tolerating T-piece. Trach management per pulmonology. - Aspiration pneumonia: Completed cefepime, Levaquin on 06/16/16. Appreciate infectious disease recommendations. - Acute renal failure secondary to ATN: Patient is oliguric. Continue hemodialysis per nephrology. - Diabetes mellitus type 2: Monitor Accu-Cheks and cover with sliding scale insulin. Increase Levemir from 20 units BID. Sliding scale insulin with Aspart. - Right cephalic vein superficial thrombus, left basilic vein thrombus, posterior tibial thrombus - Continue aspirin. Nutrition: Continue Nepro at 50 mL/hour. Full code. Heparin SQ. Discharge plan 07/06/2016: No change in management. Patient can be discharged if a facility accepts him. CM is working with [place] for placement. Problem Qualifiers (1) CAD (coronary artery disease): Qualified Code: I25.10 - Coronary artery disease, angina presence unspecified, unspecified vessel or lesion type, unspecified whether [place] or transplanted heart (2) Acute renal failure: Qualified Code: N17.0 - Acute renal failure with tubular necrosis (3) Hypertension: Qualified Code: I10 - Essential hypertension (4) Diabetes mellitus: Qualified Code: E13.8 - Diabetes mellitus of other type with complication, unspecified usp insulin use status (5) Leukocytosis: Qualified Code: D72.829 - Leukocytosis, unspecified type (6) Catheter-associated urinary tract infection: Qualified Code: T83.511A - Urinary tract infection associated with indwelling urethral catheter, initial encounter Gerson Bustos DO Jul 06, 2016 23:39
[2016-07-07] VITALS (8 sets, daily range): BP systolic 99–129; BP diastolic 57–73; PULSE 76–94; RESP 18–22; TEMP 97.9–98.9; O2SAT 95–98
--- NOTE | 2016-07-07 00:13 | HHI.PR ---
Subjective Remarks Patient seen around 12:30PM. Follow up encephalopathy, respiratory failure, renal failure. Patient opens his eyes and tracks but no verbal communications. No movement of his hands or feet. No fever, chills. Objective Vitals Vital Signs Date Time Temp Pulse Resp B/P Pulse Ox O2 Delivery O2 Flow Rate FiO2 07/06/16 21:00 Trach Collar 5.00 28 Humidified 07/06/16 20:08 98.6 94 22 117/69 94 07/06/16 16:00 98.2 81 18 129/73 97 07/06/16 12:00 98.5 87 16 130/73 97 07/06/16 08:20 97 T-piece 28 07/06/16 08:00 74 07/06/16 08:00 96 Trach Collar 5.00 28 Humidified 07/06/16 08:00 98.4 76 18 115/65 97 07/06/16 04:58 97.8 82 18 118/64 92 07/06/16 02:24 Trach Collar 5.00 28 Humidified I/O 07/06/16 07/06/16 07/06/16 07/07/16 07/07/16 07/07/16 07:00 15:00 23:00 07:00 15:00 23:00 Intake Total 0 ml 1792 ml Output Total 50 ml 3100 ml Balance -50 ml 0 ml -1308 ml Intake Oral 0 ml 0 ml IV Total 2 ml Tube Feeding 1790 ml Output Urine Total 50 ml 400 ml Hemodialysis 2700 ml # Voids 0 # Bowel Movements 1 3 0 Result Diagram: 07/04/16 0600 07/03/16 0545 Imaging Last Impressions Chest X-Ray 06/26/16 0000 Signed Impressions: Service Date/Time: Sunday, June 26, 2016 08:39 - CONCLUSION: No acute disease. Jonathon Peters MD FACR Chest CT 06/10/16 0000 Signed Impressions: Service Date/Time: Friday, June 10, 2016 16:11 - CONCLUSION: 1. Patchy infiltrates right upper lobe, left upper lobe and superior segments of the lower lobes. 2. Thickening of the right major fissure. 3. Bilateral gynecomastia. 4. Coronary artery calcifications. Carlitos Aguirre MD Liver Ultrasound 06/06/16 0000 Signed Impressions: Service Date/Time: Monday, June 06, 2016 14:18 - CONCLUSION: 1. Liver slightly echogenic which can be seen with fatty infiltration. 2. Spleen not visualized. 3. There may be some minimal gallbladder sludge but no cholelithiasis or wall thickening. Carlitos Aguirre MD Upper Extremity Ultrasound 06/05/16 Signed Impressions: Service Date/Time: Sunday, June 05, 2016 11:01 - CONCLUSION: Occlusive thrombus right cephalic vein and left basilic vein Shahid Sin MD Lower Extremity Ultrasound 06/05/16 Signed Impressions: Service Date/Time: Sunday, June 05, 2016 16:05 - CONCLUSION: Normal examination. No evidence of DVT Shahid Sin MD Gastrostomy Tube Placement 06/02/16 Signed Impressions: Service Date/Time: Thursday, June 02, 2016 12:31 - CONCLUSION: Uncomplicated gastrostomy tube placement as above. Isidro Flor MD Catheter Placement X-Ray 06/02/16 Signed Impressions: Service Date/Time: Thursday, June 02, 2016 12:31 - CONCLUSION: 1. Uncomplicated line placement as above. 2. Patient currently has a modified left subclavian PermCath catheter that is being utilized as a temporary access. Isidro Flor MD Brain MRI 05/27/16 Signed Impressions: Service Date/Time: Friday, May 27, 2016 12:17 - CONCLUSION: Multifocal bilateral T2 signal abnormalities in restricted diffusion concerning for bilateral lacunar infarcts. Carlitos Aguirre MD Head CT 05/16/16 Signed Impressions: Service Date/Time: Monday, May 16, 2016 08:30 - CONCLUSION: Suspected bilateral basal ganglia calcifications are unchanged. No evidence of hemorrhage, edema, mass or mass effect. Stephen Quintanilla MD Abdomen/Pelvis CT 05/16/16 Signed Impressions: Service Date/Time: Monday, May 16, 2016 08:39 - CONCLUSION: There are large areas of hemorrhage including the left retroperitoneum and psoas muscle, within the mesentery and a smaller area in the right psoas muscle. They don't appear to be related to the abdominal aorta or the internal iliac arteries. There is a small focal collection hemorrhage adjacent to the left external iliac artery as it enters the pelvis, but I don't believe that is related to the large amount of hemorrhage seen elsewhere. The areas of hemorrhage are large and multi-focal. Stephen Quintanilla MD CT Angiography 05/06/16 0000 Signed Impressions: Service Date/Time: Saturday, May 07, 2016 00:04 - CONCLUSION: 1. Lobar consolidation bilaterally in the lower lobes. 2. Negative for pulmonary embolism. Michael Colbert MD Objective Remarks GENERAL: Unresponsive. SKIN: Warm and dry. HEAD: Normocephalic. EYES: No scleral icterus. No injection or drainage. NECK: Supple, trachea midline. No JVD or lymphadenopathy. CARDIOVASCULAR: Regular rate and rhythm without murmurs, gallops, or rubs. RESPIRATORY: Breath sounds equal bilaterally. No accessory muscle use. GASTROINTESTINAL: Abdomen soft, non-tender, nondistended. MUSCULOSKELETAL: No cyanosis, or edema. SCDs. 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 Status: Chronic (4) Retroperitoneal bleed ICD Code: R58 Status: Resolved (5) Acute renal failure ICD Code: N17.9 Status: Acute (6) Chronic diastolic congestive heart failure ICD Code: I50.32 Status: Chronic (7) Elevated LFTs ICD Code: R94.5 Status: Resolved (8) Basal ganglia infarction ICD Code: I63.9 Status: Acute (9) Hypertension ICD Code: I10 Status: Chronic (10) Aspiration pneumonia ICD Code: J69.0 Status: Resolved (11) Acute blood loss anemia ICD Code: D62 Status: Resolved (12) Acute thrombosis of left basilic vein ICD Code: I82.612 Status: Acute (13) Acute thrombosis of right cephalic vein ICD Code: I82.611 Status: Acute (14) Diabetes mellitus ICD Code: E11.9 Status: Chronic (15) Sinus pause ICD Code: I45.5 Status: Resolved (16) Wound of skin ICD Code: R23.8 Status: Acute (17) Leukocytosis ICD Code: D72.829 Status: Acute (18) Catheter-associated urinary tract infection ICD Code: T83.511A Status: Acute (19) Hyperkalemia ICD Code: E87.5 Status: Acute (20) Hyperphosphatemia ICD Code: E83.39 Status: Acute (21) Hypermagnesemia ICD Code: E83.41 Status: Acute Assessment and Plan Mr. Short is a 61 year old male who was admitted to the hospital on 05/05/2016 - Hemorrhagic shock status post large retroperitoneal bleed, acute blood loss anemia - Bleeding and shock have resolved. Hemoglobin stable - around 11.2-11.6. - Bilateral basal ganglia infarcts, encephalopathy - Patient appears to move his head somewhat on command although no clear evidence of command following. - Aberrant RCA - Appreciate cardiology and cardiothoracic surgery recommendations. - Will need a referral to [facility] in future. - Chronic diastolic congestive heart failure, coronary artery disease, nonischemic cardiomyopathy - Continue beta daniel, aspirin. Statin on hold. - Hypertension: Continue labetalol, hydralazine, Cardizem. - CAD - Patient presented with EKG consistent with STEMI. The patient underwent emergent cardiac catheterization which showed mild to moderate CAD similar to cardiac catheterization observed in 2009. EKG changes likely consistent with hypertensive emergency. Not a candidate for anticoagulation due to retroperitoneal bleed. Continue aspirin 81 mg. - Acute hypoxemic respiratory failure: Patient was extubated on 05/13/16 and reintubated 05/16/16. Tracheostomy placed 06/01/16. Now off ventilator, tolerating T-piece. Trach management per pulmonology. - Aspiration pneumonia: Completed cefepime, Levaquin on 06/16/16. Appreciate infectious disease recommendations. - Acute renal failure secondary to ATN: Patient is oliguric. Continue hemodialysis per nephrology. - Diabetes mellitus type 2: Monitor Accu-Cheks and cover with sliding scale insulin. Increase Levemir from 20 units BID. Sliding scale insulin with Aspart. - Right cephalic vein superficial thrombus, left basilic vein thrombus, posterior tibial thrombus - Continue aspirin. Nutrition: Continue Nepro at 50 mL/hour. Full code. Heparin SQ. Discharge plan 07/07/2016: No change in management. Patient can be discharged if a facility accepts him. CM is working with [facility] for placement. Problem Qualifiers (1) CAD (coronary artery disease): Qualified Code: I25.10 - Coronary artery disease, angina presence unspecified, unspecified vessel or lesion type, unspecified whether [place] or transplanted heart (2) Acute renal failure: Qualified Code: N17.0 - Acute renal failure with tubular necrosis (3) Hypertension: Qualified Code: I10 - Essential hypertension (4) Diabetes mellitus: Qualified Code: E13.8 - Diabetes mellitus of other type with complication, unspecified long winder tender insulin use status (5) Leukocytosis: Qualified Code: D72.829 - Leukocytosis, unspecified type (6) Catheter-associated urinary tract infection: Qualified Code: T83.511A - Urinary tract infection associated with indwelling urethral catheter, initial encounter Gerson Bustos DO Jul 07, 2016 12:13 am
[2016-07-07] MEDS: hydrALAZINE HCL 25 MG TAB PO SCH ×3 (05:46→22:00)
[2016-07-07] MEDS: LABETALOL HCL 200 MG TAB PO SCH ×3 (05:46→22:00)
[2016-07-07] MEDS: INSULIN ASPART SUPPLEMENTAL SCALE SQ SCH ×4 (05:57→21:00)
[2016-07-07 07:24] LABS: HEMATOCRIT 37.4 % (39.0-51.0); MEAN CELL VOLUME 90.6 FL (80.0-100.0); MEAN CORPUSCULAR HEMOGLOBIN 28.7 PG (27.0-34.0); MEAN CORPUSCULAR HGB CONC 31.7 % (32.0-36.0); PLATELET COUNT 164 TH/MM3 (150-450); RED BLOOD COUNT 4.13 MIL/MM3 (4.50-5.90); RED CELL DISTRIBUTION WIDTH 17.6 % (11.6-17.2); REVIEW FLAG FINAL; WHITE BLOOD COUNT 11.1 TH/MM3 (4.0-11.0)
[2016-07-07] MEDS: DILTIAZEM HCL 60 MG TAB PO SCH ×4 (07:39→21:00)
[2016-07-07] MEDS: ASPIRIN 81 MG CHEW TAB CHEW SCH (07:39)
[2016-07-07] MEDS: PANTOPRAZOLE SODIUM 40 MG VIAL IV PUSH SCH (07:40)
[2016-07-07] MEDS: INSULIN DETEMIR 100 UNITS/ML VIAL SQ SCH ×2 (07:40→21:00)
[2016-07-07] MEDS: HEPARIN SODIUM - SQ 10,000 UNITS/ML VIAL SQ SCH ×2 (07:40→21:00)
[2016-07-07] MEDS: NYSTATIN 100,000 U/GM PWD 15 GM BTL TOPICAL SCH ×2 (09:00→21:00)
[2016-07-07] MEDS: ARTIFICIAL TEARS OPTH SOLN 15 ML BTL EACH EYE SCH ×3 (09:00→18:00)
[2016-07-07] MEDS: SODIUM CHLORIDE 0.9% FLUSH 5 ML FLUSH IV FLUSH SCH ×2 (13:22→21:00)
[2016-07-07] MEDS: CHLORHEXIDINE 0.12% (ORAL KIT) 15 ML CUP MT SCH (20:00)
--- NOTE | 2016-07-07 20:08 | HHI.NPPN ---
Subjective History of Present Illness 61 year old with ARF, CHF, Respiratory failure Additional Remarks Patient remain non verbal and unresponsive. Objective Data Data 07/06/16 07/07/16 19:00 07:00 Intake Total 0 ml 1792 ml Output Total 2700 ml 550 ml Balance -2700 ml 1242 ml Intake Oral 0 ml 0 ml IV Total 2 ml Tube Feeding 1790 ml Output Urine Total 550 ml Hemodialysis 2700 ml # Voids 0 # Bowel Movements 3 0 Vital Signs Date Time Temp Pulse Resp B/P Pulse Ox O2 Delivery O2 Flow Rate FiO2 07/07/16 16:00 98.2 82 18 113/66 97 07/07/16 12:00 98.9 82 18 99/63 97 07/07/16 10:50 95 T-piece 28 07/07/16 08:00 96 Trach Collar 5.00 28 Humidified 07/07/16 08:00 76 07/07/16 08:00 98.4 94 18 127/73 96 07/07/16 04:00 97.9 85 20 129/73 96 07/07/16 00:00 98.7 83 22 106/57 96 07/06/16 23:00 95 07/06/16 21:00 Trach Collar 5.00 28 Humidified 07/06/16 20:08 98.6 94 22 117/69 94 -: 07/07/16 0603 07/03/16 0545 Physical Exam General Appearance: No Acute Distress, Comfortable, Obese Appearance Remarks Intubated and off sedation. Neck Neck Exam: Neck Supple Pulmonary Resp Exam: Rhonchi, Decreased Bases, Diminished Breath Sounds, Poor Inspiratory Effort Cardiology CV Exam: Tachycardia Gastrointestinal/Abdomen GI Exam: Soft, Non-Tender, Distended Extremeties Extremities Exam: Moderate Edema, Pitting Edema, Dependent Edema Neurologic Neuro Exam: Unresponsive Assessment/Plan Problem List: (1) Acute renal failure Plan: Patient has acute renal failure BUN and Creatinine remain high Continue HD TTS. watch for any renal recovery. Urine out put is low. Avoid Nephrotoxins. Follow urine out put and BMP. Continue HD as needed. 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
[2016-07-08] VITALS (11 sets, daily range): BP systolic 91–125; BP diastolic 56–76; PULSE 79–102; RESP 16–36; TEMP 97.3–99.6; O2SAT 28–99
[2016-07-08] MEDS: hydrALAZINE HCL 25 MG TAB PO SCH ×3 (05:01→20:31)
[2016-07-08] MEDS: LABETALOL HCL 200 MG TAB PO SCH ×3 (05:01→20:30)
[2016-07-08] MEDS: INSULIN ASPART SUPPLEMENTAL SCALE SQ SCH ×4 (05:45→22:18)
[2016-07-08] MEDS: CHLORHEXIDINE 0.12% (ORAL KIT) 15 ML CUP MT SCH ×2 (08:00→20:30)
[2016-07-08] MEDS: ARTIFICIAL TEARS OPTH SOLN 15 ML BTL EACH EYE SCH ×3 (09:00→18:00)
[2016-07-08] MEDS: NYSTATIN 100,000 U/GM PWD 15 GM BTL TOPICAL SCH ×2 (09:00→20:43)
[2016-07-08] MEDS: SODIUM CHLORIDE 0.9% FLUSH 5 ML FLUSH IV FLUSH SCH ×2 (09:00→20:32)
[2016-07-08] MEDS: INSULIN DETEMIR 100 UNITS/ML VIAL SQ SCH ×2 (09:02→20:31)
[2016-07-08] MEDS: PANTOPRAZOLE SODIUM 40 MG VIAL IV PUSH SCH (09:02)
--- NOTE | 2016-07-08 11:00 | HHI.NPPN ---
Subjective History of Present Illness 61 year old with ARF, CHF, Respiratory failure Additional Remarks Patient is clinically same, non verbal and unresponsive. Objective Data Data 07/07/16 07/08/16 19:00 07:00 Intake Total 0 ml Output Total 100 ml Balance -100 ml Intake Oral 0 ml Output Urine Total 100 ml # Bowel Movements 2 1 Vital Signs Date Time Temp Pulse Resp B/P Pulse Ox O2 Delivery O2 Flow Rate FiO2 07/08/16 08:00 98.9 102 36 109/63 94 07/08/16 07:15 Trach Collar 5.00 28 Humidified 07/08/16 04:00 98.8 94 18 121/58 95 07/08/16 00:45 97.3 79 18 116/56 96 07/07/16 21:59 96 T-piece 6.00 28 07/07/16 21:45 Trach Collar 5.00 28 Humidified 07/07/16 20:56 98.4 86 18 128/67 98 07/07/16 16:00 98.2 82 18 113/66 97 07/07/16 12:00 98.9 82 18 99/63 97 -: 07/07/16 0603 Physical Exam General Appearance: No Acute Distress, Comfortable, Obese Neck Neck Exam: Neck Supple Pulmonary Resp Exam: Rhonchi, Decreased Bases, Diminished Breath Sounds, Poor Inspiratory Effort Cardiology CV Exam: Tachycardia Gastrointestinal/Abdomen GI Exam: Soft, Non-Tender, Distended Extremeties Extremities Exam: Moderate Edema, Pitting Edema, Dependent Edema Neurologic Neuro Exam: Unresponsive Assessment/Plan Problem List: (1) Acute renal failure Plan: Patient has acute renal failure BUN and Creatinine remain high Continue HD TTS. watch for any renal recovery. Urine out put is low. Avoid Nephrotoxins. 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 Plan: Cardiology following (4) Acute hypoxemic respiratory failure Plan: Off ventilator (5) Hypertensive emergency Plan: BP improved (6) Diabetes mellitus Plan: Continue monitor blood glucose (7) CAD (coronary artery disease) Plan: Presented with STEMI, follow with cardiology (8) Subsequent ST elevation (STEMI) myocardial infarction of anterior wall Problem Qualifiers (1) Acute renal failure: Qualified Code: N17.0 - Acute renal failure with tubular necrosis (2) Diabetes mellitus: Qualified Code: E13.8 - Diabetes mellitus of other type with complication, unspecified retirement insulin use status (3) CAD (coronary artery disease): Qualified Code: I25.10 - Coronary artery disease, angina presence unspecified, unspecified vessel or lesion type, unspecified whether [place] or transplanted heart Linda Mcintosh MD Jul 08, 2016 11:00
[2016-07-08] MEDS: GENTAMICIN SULFATE (DIALYSIS USE ONLY) 20 MG/2 ML VIAL IV PRN (11:19)
[2016-07-08] MEDS: EPOETIN ALFA 10,000 UNITS/ML VIAL IV PRN (11:19)
[2016-07-08] MEDS: HEPARIN SODIUM - IV 10,000 UNITS/10 ML VIAL PRN (11:19)
[2016-07-08] MEDS: DILTIAZEM HCL 60 MG TAB PO SCH ×4 (13:00→20:31)
[2016-07-08] MEDS: ASPIRIN 81 MG CHEW TAB CHEW SCH (13:04)
[2016-07-08] MEDS: HEPARIN SODIUM - SQ 10,000 UNITS/ML VIAL SQ SCH ×2 (13:06→20:31)
--- NOTE | 2016-07-08 15:50 | HHI.PR ---
Subjective Remarks Follow up encephalopathy, respiratory failure, renal failure. Opens his eyes slightly. Does not follow commands. Non-verbal. Objective Vitals Vital Signs Date Time Temp Pulse Resp B/P Pulse Ox O2 Delivery O2 Flow Rate FiO2 07/08/16 08:00 98.9 102 36 109/63 94 07/08/16 07:15 Trach Collar 5.00 28 Humidified 07/08/16 04:00 98.8 94 18 121/58 95 07/08/16 00:45 97.3 79 18 116/56 96 07/07/16 21:59 96 T-piece 6.00 28 07/07/16 21:45 Trach Collar 5.00 28 Humidified 07/07/16 20:56 98.4 86 18 128/67 98 07/07/16 16:00 98.2 82 18 113/66 97 I/O 07/07/16 07/07/16 07/07/16 07/08/16 07/08/16 07/08/16 07:00 15:00 23:00 07:00 15:00 23:00 Intake Total 0 ml 0 ml Output Total 150 ml 100 ml Balance -150 ml -100 ml Intake Oral 0 ml 0 ml Output Urine Total 150 ml 100 ml # Bowel Movements 0 2 1 Result Diagram: 07/07/16 0603 Objective Remarks GENERAL: Unresponsive. SKIN: Warm and dry. HEAD: Normocephalic. EYES: No scleral icterus. No injection or drainage. NECK: Supple, trachea midline. No JVD or lymphadenopathy. CARDIOVASCULAR: Regular rate and rhythm without murmurs, gallops, or rubs. RESPIRATORY: Breath sounds equal bilaterally. No accessory muscle use. GASTROINTESTINAL: Abdomen soft, non-tender, nondistended. MUSCULOSKELETAL: No cyanosis, or edema. SCDs. 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 Status: Chronic (4) Retroperitoneal bleed ICD Code: R58 Status: Resolved (5) Acute renal failure ICD Code: N17.9 Status: Acute (6) Chronic diastolic congestive heart failure ICD Code: I50.32 Status: Chronic (7) Elevated LFTs ICD Code: R94.5 Status: Resolved (8) Basal ganglia infarction ICD Code: I63.9 Status: Acute (9) Hypertension ICD Code: I10 Status: Chronic (10) Aspiration pneumonia ICD Code: J69.0 Status: Resolved (11) Acute blood loss anemia ICD Code: D62 Status: Resolved (12) Acute thrombosis of left basilic vein ICD Code: I82.612 Status: Acute (13) Acute thrombosis of right cephalic vein ICD Code: I82.611 Status: Acute (14) Diabetes mellitus ICD Code: E11.9 Status: Chronic (15) Sinus pause ICD Code: I45.5 Status: Resolved (16) Wound of skin ICD Code: R23.8 Status: Acute (17) Leukocytosis ICD Code: D72.829 Status: Acute (18) Catheter-associated urinary tract infection ICD Code: T83.511A Status: Acute (19) Hyperkalemia ICD Code: E87.5 Status: Acute (20) Hyperphosphatemia ICD Code: E83.39 Status: Acute (21) Hypermagnesemia ICD Code: E83.41 Status: Acute Assessment and Plan Mr. Short is a 61 year old male who was admitted to the hospital on 05/05/2016 - Hemorrhagic shock status post large retroperitoneal bleed, acute blood loss anemia - Bleeding and shock have resolved. Hemoglobin stable - around 11.2-11.6. - Bilateral basal ganglia infarcts, encephalopathy - Patient appears to move his head somewhat on command although no clear evidence of command following. - Aberrant RCA - Appreciate cardiology and cardiothoracic surgery recommendations. - Will need a referral to [facility] in future. - Chronic diastolic congestive heart failure, coronary artery disease, nonischemic cardiomyopathy - Continue beta daniel, aspirin. Statin on hold. - Hypertension: Continue labetalol, hydralazine, Cardizem. - CAD - Patient presented with EKG consistent with STEMI. The patient underwent emergent cardiac catheterization which showed mild to moderate CAD similar to cardiac catheterization observed in 2009. EKG changes likely consistent with hypertensive emergency. Not a candidate for anticoagulation due to retroperitoneal bleed. Continue aspirin 81 mg. - Acute hypoxemic respiratory failure: Patient was extubated on 05/13/16 and reintubated 05/16/16. Tracheostomy placed 06/01/16. Now off ventilator, tolerating T-piece. Trach management per pulmonology. - Aspiration pneumonia: Completed cefepime, Levaquin on 06/16/16. Appreciate infectious disease recommendations. - Acute renal failure secondary to ATN: Patient is oliguric. Continue hemodialysis per nephrology. - Diabetes mellitus type 2: Monitor Accu-Cheks and cover with sliding scale insulin. Increase Levemir from 20 units BID. Sliding scale insulin with Aspart. - Right cephalic vein superficial thrombus, left basilic vein thrombus, posterior tibial thrombus - Continue aspirin. Nutrition: Continue Nepro at 50 mL/hour. Full code. Heparin SQ. Discharge plan 07/08/2016: No change in management. Patient can be discharged if a facility accepts him. CM is working with [facility] for placement. 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
[2016-07-09] VITALS (9 sets, daily range): BP systolic 100–127; BP diastolic 56–71; PULSE 66–86; RESP 16–24; TEMP 97.9–98.8; O2SAT 94–99
[2016-07-09] MEDS: hydrALAZINE HCL 25 MG TAB PO SCH ×3 (06:07→21:27)
[2016-07-09] MEDS: LABETALOL HCL 200 MG TAB PO SCH ×3 (06:07→21:27)
[2016-07-09] MEDS: INSULIN ASPART SUPPLEMENTAL SCALE SQ SCH ×4 (06:07→21:25)
[2016-07-09] MEDS: CHLORHEXIDINE 0.12% (ORAL KIT) 15 ML CUP MT SCH ×2 (08:00→21:24)
[2016-07-09] MEDS: SODIUM CHLORIDE 0.9% FLUSH 5 ML FLUSH IV FLUSH SCH ×2 (09:00→21:24)
[2016-07-09] MEDS: NYSTATIN 100,000 U/GM PWD 15 GM BTL TOPICAL SCH ×2 (09:00→21:24)
[2016-07-09] MEDS: HEPARIN SODIUM - SQ 10,000 UNITS/ML VIAL SQ SCH ×2 (09:00→21:24)
[2016-07-09] MEDS: ARTIFICIAL TEARS OPTH SOLN 15 ML BTL EACH EYE SCH ×3 (09:00→17:42)
--- NOTE | 2016-07-09 09:37 | HHI.PR ---
Subjective Remarks Follow up encephalopathy, respiratory failure, renal failure. Mr. Short remains non-verbal. Opens his eyes but does not follow any commands. Objective Vitals Vital Signs Date Time Temp Pulse Resp B/P Pulse Ox O2 Delivery O2 Flow Rate FiO2 07/09/16 04:00 98.8 86 16 115/61 95 07/09/16 00:00 98.2 82 18 100/57 94 07/08/16 21:16 28 T-piece 6.00 07/08/16 20:04 86 07/08/16 20:00 99.6 86 16 103/61 93 07/08/16 16:51 94 T-piece 5.00 28 07/08/16 16:00 98.9 81 30 125/76 94 07/08/16 13:25 98.8 98 30 91/58 93 I/O 07/08/16 07/08/16 07/08/16 07/09/16 07/09/16 07/09/16 07:00 15:00 23:00 07:00 15:00 23:00 Intake Total 350 ml 528 ml 442 ml Balance 350 ml 528 ml 442 ml Intake Oral 0 ml 0 ml Tube Feeding 250 ml 408 ml 382 ml Tube Irrigant 120 ml 60 ml Other 100 ml # Voids 0 0 0 # Bowel Movements 1 0 0 0 Result Diagram: 07/07/16 0603 Imaging Last Impressions Chest X-Ray 06/26/16 0000 Signed Impressions: Service Date/Time: Sunday, June 26, 2016 08:39 - CONCLUSION: No acute disease. Jonathon Peters MD FACR Chest CT 06/10/16 0000 Signed Impressions: Service Date/Time: Friday, June 10, 2016 16:11 - CONCLUSION: 1. Patchy infiltrates right upper lobe, left upper lobe and superior segments of the lower lobes. 2. Thickening of the right major fissure. 3. Bilateral gynecomastia. 4. Coronary artery calcifications. Carlitos Aguirre MD Liver Ultrasound 06/06/16 0000 Signed Impressions: Service Date/Time: Monday, June 06, 2016 14:18 - CONCLUSION: 1. Liver slightly echogenic which can be seen with fatty infiltration. 2. Spleen not visualized. 3. There may be some minimal gallbladder sludge but no cholelithiasis or wall thickening. Carlitos Aguirre MD Upper Extremity Ultrasound 06/05/16 Signed Impressions: Service Date/Time: Sunday, June 05, 2016 11:01 - CONCLUSION: Occlusive thrombus right cephalic vein and left basilic vein Shahid Sin MD Lower Extremity Ultrasound 06/05/16 Signed Impressions: Service Date/Time: Sunday, June 05, 2016 16:05 - CONCLUSION: Normal examination. No evidence of DVT Shahid Sin MD Gastrostomy Tube Placement 06/02/16 Signed Impressions: Service Date/Time: Thursday, June 02, 2016 12:31 - CONCLUSION: Uncomplicated gastrostomy tube placement as above. Isidro Flor MD Catheter Placement X-Ray 06/02/16 Signed Impressions: Service Date/Time: Thursday, June 02, 2016 12:31 - CONCLUSION: 1. Uncomplicated line placement as above. 2. Patient currently has a modified left subclavian PermCath catheter that is being utilized as a temporary access. Isidro Flor MD Brain MRI 05/27/16 Signed Impressions: Service Date/Time: Friday, May 27, 2016 12:17 - CONCLUSION: Multifocal bilateral T2 signal abnormalities in restricted diffusion concerning for bilateral lacunar infarcts. Carlitos Aguirre MD Head CT 05/16/16 Signed Impressions: Service Date/Time: Monday, May 16, 2016 08:30 - CONCLUSION: Suspected bilateral basal ganglia calcifications are unchanged. No evidence of hemorrhage, edema, mass or mass effect. Stephen Quintanilla MD Abdomen/Pelvis CT 05/16/16 Signed Impressions: Service Date/Time: Monday, May 16, 2016 08:39 - CONCLUSION: There are large areas of hemorrhage including the left retroperitoneum and psoas muscle, within the mesentery and a smaller area in the right psoas muscle. They don't appear to be related to the abdominal aorta or the internal iliac arteries. There is a small focal collection hemorrhage adjacent to the left external iliac artery as it enters the pelvis, but I don't believe that is related to the large amount of hemorrhage seen elsewhere. The areas of hemorrhage are large and multi-focal. Stephen Quintanilla MD CT Angiography 05/06/16 0000 Signed Impressions: Service Date/Time: Saturday, May 07, 2016 00:04 - CONCLUSION: 1. Lobar consolidation bilaterally in the lower lobes. 2. Negative for pulmonary embolism. Michael Colbert MD Objective Remarks GENERAL: Unresponsive. SKIN: Warm and dry. HEAD: Normocephalic. EYES: No scleral icterus. No injection or drainage. NECK: Supple, trachea midline. No JVD or lymphadenopathy. CARDIOVASCULAR: Regular rate and rhythm without murmurs, gallops, or rubs. RESPIRATORY: Breath sounds equal bilaterally. No accessory muscle use. GASTROINTESTINAL: Abdomen soft, non-tender, nondistended. MUSCULOSKELETAL: No cyanosis, or edema. SCDs. 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 Status: Chronic (4) Retroperitoneal bleed ICD Code: R58 Status: Resolved (5) Acute renal failure ICD Code: N17.9 Status: Acute (6) Chronic diastolic congestive heart failure ICD Code: I50.32 Status: Chronic (7) Elevated LFTs ICD Code: R94.5 Status: Resolved (8) Basal ganglia infarction ICD Code: I63.9 Status: Acute (9) Hypertension ICD Code: I10 Status: Chronic (10) Aspiration pneumonia ICD Code: J69.0 Status: Resolved (11) Acute blood loss anemia ICD Code: D62 Status: Resolved (12) Acute thrombosis of left basilic vein ICD Code: I82.612 Status: Acute (13) Acute thrombosis of right cephalic vein ICD Code: I82.611 Status: Acute (14) Diabetes mellitus ICD Code: E11.9 Status: Chronic (15) Sinus pause ICD Code: I45.5 Status: Resolved (16) Wound of skin ICD Code: R23.8 Status: Acute (17) Leukocytosis ICD Code: D72.829 Status: Acute (18) Catheter-associated urinary tract infection ICD Code: T83.511A Status: Acute (19) Hyperkalemia ICD Code: E87.5 Status: Acute (20) Hyperphosphatemia ICD Code: E83.39 Status: Acute (21) Hypermagnesemia ICD Code: E83.41 Status: Acute Assessment and Plan Mr. Short is a 61 year old male who was admitted to the hospital on 05/05/2016 - Hemorrhagic shock status post large retroperitoneal bleed, acute blood loss anemia - Bleeding and shock have resolved. Hemoglobin stable - around 11.2-11.6. - Bilateral basal ganglia infarcts, encephalopathy - Patient appears to move his head somewhat on command although no clear evidence of command following. - Aberrant RCA - Appreciate cardiology and cardiothoracic surgery recommendations. - Will need a referral to [facility] in future. - Chronic diastolic congestive heart failure, coronary artery disease, nonischemic cardiomyopathy - Continue beta daniel, aspirin. Statin on hold. - Hypertension: Continue labetalol, hydralazine, Cardizem. - CAD - Patient presented with EKG consistent with STEMI. The patient underwent emergent cardiac catheterization which showed mild to moderate CAD similar to cardiac catheterization observed in 2009. EKG changes likely consistent with hypertensive emergency. Not a candidate for anticoagulation due to retroperitoneal bleed. Continue aspirin 81 mg. - Acute hypoxemic respiratory failure: Patient was extubated on 05/13/16 and reintubated 05/16/16. Tracheostomy placed 06/01/16. Now off ventilator, tolerating T-piece. Trach management per pulmonology. - Aspiration pneumonia: Completed cefepime, Levaquin on 06/16/16. Appreciate infectious disease recommendations. - Acute renal failure secondary to ATN: Patient is oliguric. Continue hemodialysis per nephrology. - Diabetes mellitus type 2: Monitor Accu-Cheks and cover with sliding scale insulin. Increase Levemir from 20 units BID. Sliding scale insulin with Aspart. - Right cephalic vein superficial thrombus, left basilic vein thrombus, posterior tibial thrombus - Continue aspirin. Nutrition: Continue Nepro at 50 mL/hour. Full code. Heparin SQ. Discharge plan 07/09/2016: No change in management. Patient can be discharged if a facility accepts him. JOYCE is working with [facility] for placement. Problem Qualifiers (1) CAD (coronary artery disease): Qualified Code: I25.10 - Coronary artery disease, angina presence unspecified, unspecified vessel or lesion type, unspecified whether [place] or transplanted heart (2) Acute renal failure: Qualified Code: N17.0 - Acute renal failure with tubular necrosis (3) Hypertension: Qualified Code: I10 - Essential hypertension (4) Diabetes mellitus: Qualified Code: E13.8 - Diabetes mellitus of other type with complication, unspecified shelter insulin use status (5) Leukocytosis: Qualified Code: D72.829 - Leukocytosis, unspecified type (6) Catheter-associated urinary tract infection: Qualified Code: T83.511A - Urinary tract infection associated with indwelling urethral catheter, initial encounter Gerson Bustos DO Jul 09, 2016 9:37 am
[2016-07-09] MEDS: PANTOPRAZOLE SODIUM 40 MG VIAL IV PUSH SCH (10:17)
[2016-07-09] MEDS: INSULIN DETEMIR 100 UNITS/ML VIAL SQ SCH ×2 (10:18→21:25)
[2016-07-09] MEDS: ASPIRIN 81 MG CHEW TAB CHEW SCH (10:19)
[2016-07-09] MEDS: DILTIAZEM HCL 60 MG TAB PO SCH ×4 (10:19→21:24)
--- NOTE | 2016-07-09 17:10 | HHI.NPPN ---
Subjective History of Present Illness 61 year old with ARF, CHF, Respiratory failure Additional Remarks Patient is clinically same, non verbal and unresponsive. Objective Data Data 07/08/16 07/09/16 19:00 07:00 Intake Total 350 ml 970 ml Balance 350 ml 970 ml Intake Oral 0 ml Tube Feeding 250 ml 790 ml Tube Irrigant 180 ml Other 100 ml # Voids 0 0 # Bowel Movements 0 0 Vital Signs Date Time Temp Pulse Resp B/P Pulse Ox O2 Delivery O2 Flow Rate FiO2 07/09/16 14:10 99 T-piece 28 07/09/16 12:00 98 Trach Collar 5.00 Humidified 07/09/16 12:00 98.7 80 24 127/71 98 07/09/16 08:00 98.2 86 24 125/71 94 07/09/16 08:00 94 Trach Collar 5.00 Humidified 07/09/16 04:00 98.8 86 16 115/61 95 07/09/16 00:00 98.2 82 18 100/57 94 07/08/16 21:16 28 T-piece 6.00 07/08/16 20:04 86 07/08/16 20:00 99.6 86 16 103/61 93 -: 07/07/16 0603 Physical Exam General Appearance: No Acute Distress, Comfortable, Obese Neck Neck Exam: Neck Supple Pulmonary Resp Exam: Rhonchi, Decreased Bases, Diminished Breath Sounds, Poor Inspiratory Effort Cardiology CV Exam: Tachycardia Gastrointestinal/Abdomen GI Exam: Soft, Non-Tender, Distended Extremeties Extremities Exam: Moderate Edema, Pitting Edema, Dependent Edema Neurologic Neuro Exam: Unresponsive Assessment/Plan Problem List: (1) Acute renal failure Plan: Patient has acute renal failure BUN and Creatinine remain high Continue HD TTS. watch for any renal recovery. Urine out put is low. Avoid Nephrotoxins. 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
[2016-07-10] VITALS (10 sets, daily range): BP systolic 94–139; BP diastolic 54–68; PULSE 75–82; RESP 16–20; TEMP 97.7–98.5; O2SAT 90–100
[2016-07-10] MEDS: hydrALAZINE HCL 25 MG TAB PO SCH ×3 (06:00→20:31)
[2016-07-10] MEDS: LABETALOL HCL 200 MG TAB PO SCH ×3 (06:02→20:31)
[2016-07-10] MEDS: INSULIN ASPART SUPPLEMENTAL SCALE SQ SCH ×4 (06:03→20:46)
[2016-07-10 07:22] LABS: HEMATOCRIT 37.3 % (39.0-51.0); MEAN CELL VOLUME 91.6 FL (80.0-100.0); MEAN CORPUSCULAR HEMOGLOBIN 28.7 PG (27.0-34.0); MEAN CORPUSCULAR HGB CONC 31.4 % (32.0-36.0); PLATELET COUNT 236 TH/MM3 (150-450); RED BLOOD COUNT 4.07 MIL/MM3 (4.50-5.90); RED CELL DISTRIBUTION WIDTH 17.7 % (11.6-17.2); REVIEW FLAG FINAL; WHITE BLOOD COUNT 12.6 TH/MM3 (4.0-11.0)
[2016-07-10] MEDS: INSULIN DETEMIR 100 UNITS/ML VIAL SQ SCH ×2 (08:41→20:30)
[2016-07-10] MEDS: PANTOPRAZOLE SODIUM 40 MG VIAL IV PUSH SCH (08:41)
[2016-07-10] MEDS: ASPIRIN 81 MG CHEW TAB CHEW SCH (08:41)
[2016-07-10] MEDS: HEPARIN SODIUM - SQ 10,000 UNITS/ML VIAL SQ SCH ×2 (08:42→20:30)
[2016-07-10] MEDS: NYSTATIN 100,000 U/GM PWD 15 GM BTL TOPICAL SCH ×2 (08:42→20:32)
[2016-07-10] MEDS: DILTIAZEM HCL 60 MG TAB PO SCH ×4 (08:43→20:31)
[2016-07-10] MEDS: SODIUM CHLORIDE 0.9% FLUSH 5 ML FLUSH IV FLUSH SCH ×2 (08:44→20:31)
[2016-07-10] MEDS: ARTIFICIAL TEARS OPTH SOLN 15 ML BTL EACH EYE SCH ×3 (09:03→17:57)
[2016-07-10] MEDS: CHLORHEXIDINE 0.12% (ORAL KIT) 15 ML CUP MT SCH ×2 (11:51→20:31)
--- NOTE | 2016-07-10 15:42 | HHI.PR ---
Subjective Remarks no change OPENS EYES , but no focus track ok Objective Vital Signs Date Time Temp Pulse Resp B/P Pulse Ox O2 Delivery O2 Flow Rate FiO2 07/10/16 15:14 76 94/55 07/10/16 12:00 98.0 82 18 139/62 97 07/10/16 08:14 81 07/10/16 08:14 Trach Collar 5.00 28 07/10/16 08:00 98.4 82 18 96/55 96 07/10/16 04:00 98.2 81 20 107/62 90 07/10/16 00:00 98.5 75 16 94/54 95 07/09/16 21:27 Trach Collar 5.00 28 07/09/16 21:26 96 T-piece 6.00 28 07/09/16 20:00 97.9 79 16 121/66 98 07/09/16 20:00 78 07/09/16 17:17 96 T-piece 6.00 28 07/09/16 16:00 98.4 66 24 108/56 97 07/09/16 16:00 97 Trach Collar 5.00 Humidified I/O 07/09/16 07/09/16 07/09/16 07/10/16 07/10/16 07/10/16 07:00 15:00 23:00 07:00 15:00 23:00 Intake Total 442 ml 580 ml 827 ml 438 ml 563 ml Output Total 0 ml 0 ml Balance 442 ml 580 ml 827 ml 438 ml 563 ml Intake Oral 0 ml 0 ml 0 ml Tube Feeding 382 ml 400 ml 707 ml 378 ml 363 ml Tube Irrigant 60 ml 120 ml 60 ml Other 180 ml 200 ml Output Urine Total 0 ml 0 ml # Voids 0 1 # Bowel Movements 0 1 0 1 Result Diagram: 07/10/16 0650 Objective Remarks GENERAL: SKIN: Warm and dry. HEAD: Atraumatic. Normocephalic. EYES: Pupils equal and round. No scleral icterus. No injection or drainage. ENT: No nasal bleeding or discharge. Mucous membranes pink and moist. NECK: Trachea midline. No JVD. tracheostomy in place CARDIOVASCULAR: Regular rate and rhythm. RESPIRATORY: No accessory muscle use. Clear to auscultation. Breath sounds equal bilaterally. GASTROINTESTINAL: Abdomen soft, non-tender, nondistended. Hepatic and splenic margins not palpable. MUSCULOSKELETAL: Extremities without clubbing, cyanosis, or edema. No obvious deformities. NEUROLOGICAL: Awake and alert. No obvious cranial nerve deficits. Motor grossly within normal limits. Five out of 5 muscle strength in the arms and legs. Normal speech. PSYCHIATRIC: Appropriate mood and affect; insight and judgment normal. Assessment and Plan Assessment and Plan respiratory failure s/p Tracheostomy RENAL FAILURE ON DIALYSIS PLAN 02 as needed pulmonary toilet outlook poor Kj Underwood MD Jul 10, 2016 15:42
--- NOTE | 2016-07-10 15:54 | HHI.PR ---
Subjective Remarks Follow up encephalopathy, respiratory failure, renal failure. Mr. Short is resting in bed. Per , he opens his eyes and tracks. No limb movements. Non- verbal. Objective Vitals Vital Signs Date Time Temp Pulse Resp B/P Pulse Ox O2 Delivery O2 Flow Rate FiO2 07/10/16 15:14 76 94/55 07/10/16 12:00 98.0 82 18 139/62 97 07/10/16 08:14 81 07/10/16 08:14 Trach Collar 5.00 28 07/10/16 08:00 98.4 82 18 96/55 96 07/10/16 04:00 98.2 81 20 107/62 90 07/10/16 00:00 98.5 75 16 94/54 95 07/09/16 21:27 Trach Collar 5.00 28 07/09/16 21:26 96 T-piece 6.00 28 07/09/16 20:00 97.9 79 16 121/66 98 07/09/16 20:00 78 07/09/16 17:17 96 T-piece 6.00 28 07/09/16 16:00 98.4 66 24 108/56 97 07/09/16 16:00 97 Trach Collar 5.00 Humidified I/O 07/09/16 07/09/16 07/09/16 07/10/16 07/10/16 07/10/16 07:00 15:00 23:00 07:00 15:00 23:00 Intake Total 442 ml 580 ml 827 ml 438 ml 563 ml Output Total 0 ml 0 ml Balance 442 ml 580 ml 827 ml 438 ml 563 ml Intake Oral 0 ml 0 ml 0 ml Tube Feeding 382 ml 400 ml 707 ml 378 ml 363 ml Tube Irrigant 60 ml 120 ml 60 ml Other 180 ml 200 ml Output Urine Total 0 ml 0 ml # Voids 0 1 # Bowel Movements 0 1 0 1 Result Diagram: 07/10/16 0650 Imaging Last Impressions Chest X-Ray 06/26/16 0000 Signed Impressions: Service Date/Time: Sunday, June 26, 2016 08:39 - CONCLUSION: No acute disease. Jonathon Peters MD FACR Chest CT 06/10/16 0000 Signed Impressions: Service Date/Time: Friday, June 10, 2016 16:11 - CONCLUSION: 1. Patchy infiltrates right upper lobe, left upper lobe and superior segments of the lower lobes. 2. Thickening of the right major fissure. 3. Bilateral gynecomastia. 4. Coronary artery calcifications. Carlitos Aguirre MD Liver Ultrasound 06/06/16 Signed Impressions: Service Date/Time: Monday, June 06, 2016 14:18 - CONCLUSION: 1. Liver slightly echogenic which can be seen with fatty infiltration. 2. Spleen not visualized. 3. There may be some minimal gallbladder sludge but no cholelithiasis or wall thickening. Carlitos Aguirre MD Upper Extremity Ultrasound 06/05/16 Signed Impressions: Service Date/Time: Sunday, June 05, 2016 11:01 - CONCLUSION: Occlusive thrombus right cephalic vein and left basilic vein Shahid Sin MD Lower Extremity Ultrasound 06/05/16 Signed Impressions: Service Date/Time: Sunday, June 05, 2016 16:05 - CONCLUSION: Normal examination. No evidence of DVT Shahid Sin MD Gastrostomy Tube Placement 06/02/16 Signed Impressions: Service Date/Time: Thursday, June 02, 2016 12:31 - CONCLUSION: Uncomplicated gastrostomy tube placement as above. Isidro Flor MD Catheter Placement X-Ray 06/02/16 Signed Impressions: Service Date/Time: Thursday, June 02, 2016 12:31 - CONCLUSION: 1. Uncomplicated line placement as above. 2. Patient currently has a modified left subclavian PermCath catheter that is being utilized as a temporary access. Isidro Flor MD Brain MRI 05/27/16 Signed Impressions: Service Date/Time: Friday, May 27, 2016 12:17 - CONCLUSION: Multifocal bilateral T2 signal abnormalities in restricted diffusion concerning for bilateral lacunar infarcts. Carlitos Aguirre MD Head CT 05/16/16 Signed Impressions: Service Date/Time: Monday, May 16, 2016 08:30 - CONCLUSION: Suspected bilateral basal ganglia calcifications are unchanged. No evidence of hemorrhage, edema, mass or mass effect. Stephen Quintanilla MD Abdomen/Pelvis CT 05/16/16 Signed Impressions: Service Date/Time: Monday, May 16, 2016 08:39 - CONCLUSION: There are large areas of hemorrhage including the left retroperitoneum and psoas muscle, within the mesentery and a smaller area in the right psoas muscle. They don't appear to be related to the abdominal aorta or the internal iliac arteries. There is a small focal collection hemorrhage adjacent to the left external iliac artery as it enters the pelvis, but I don't believe that is related to the large amount of hemorrhage seen elsewhere. The areas of hemorrhage are large and multi-focal. Stephen Quintanilla MD CT Angiography 05/06/16 0000 Signed Impressions: Service Date/Time: Saturday, May 07, 2016 00:04 - CONCLUSION: 1. Lobar consolidation bilaterally in the lower lobes. 2. Negative for pulmonary embolism. Michael Colbert MD Objective Remarks GENERAL: Unresponsive. SKIN: Warm and dry. HEAD: Normocephalic. EYES: No scleral icterus. No injection or drainage. NECK: Supple, trachea midline. No JVD or lymphadenopathy. CARDIOVASCULAR: Regular rate and rhythm without murmurs, gallops, or rubs. RESPIRATORY: Breath sounds equal bilaterally. No accessory muscle use. GASTROINTESTINAL: Abdomen soft, non-tender, nondistended. MUSCULOSKELETAL: No cyanosis, or edema. SCDs. 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 Status: Chronic (4) Retroperitoneal bleed ICD Code: R58 Status: Resolved (5) Acute renal failure ICD Code: N17.9 Status: Acute (6) Chronic diastolic congestive heart failure ICD Code: I50.32 Status: Chronic (7) Elevated LFTs ICD Code: R94.5 Status: Resolved (8) Basal ganglia infarction ICD Code: I63.9 Status: Acute (9) Hypertension ICD Code: I10 Status: Chronic (10) Aspiration pneumonia ICD Code: J69.0 Status: Resolved (11) Acute blood loss anemia ICD Code: D62 Status: Resolved (12) Acute thrombosis of left basilic vein ICD Code: I82.612 Status: Acute (13) Acute thrombosis of right cephalic vein ICD Code: I82.611 Status: Acute (14) Diabetes mellitus ICD Code: E11.9 Status: Chronic (15) Sinus pause ICD Code: I45.5 Status: Resolved (16) Wound of skin ICD Code: R23.8 Status: Acute (17) Leukocytosis ICD Code: D72.829 Status: Acute (18) Catheter-associated urinary tract infection ICD Code: T83.511A Status: Acute (19) Hyperkalemia ICD Code: E87.5 Status: Acute (20) Hyperphosphatemia ICD Code: E83.39 Status: Acute (21) Hypermagnesemia ICD Code: E83.41 Status: Acute Assessment and Plan Mr. Short is a 61 year old male who was admitted to the hospital on 05/05/2016 - Hemorrhagic shock status post large retroperitoneal bleed, acute blood loss anemia - Bleeding and shock have resolved. Hemoglobin stable - around 11.2-11.6. - Bilateral basal ganglia infarcts, encephalopathy - Patient appears to move his head somewhat on command although no clear evidence of command following. - Aberrant RCA - Appreciate cardiology and cardiothoracic surgery recommendations. - Will need a referral to [facility] in future. - Chronic diastolic congestive heart failure, coronary artery disease, nonischemic cardiomyopathy - Continue beta daniel, aspirin. Statin on hold. - Hypertension: Continue labetalol, hydralazine, Cardizem. - CAD - Patient presented with EKG consistent with STEMI. The patient underwent emergent cardiac catheterization which showed mild to moderate CAD similar to cardiac catheterization observed in 2009. EKG changes likely consistent with hypertensive emergency. Not a candidate for anticoagulation due to retroperitoneal bleed. Continue aspirin 81 mg. - Acute hypoxemic respiratory failure: Patient was extubated on 05/13/16 and reintubated 05/16/16. Tracheostomy placed 06/01/16. Now off ventilator, tolerating T-piece. Trach management per pulmonology. - Aspiration pneumonia: Completed cefepime, Levaquin on 06/16/16. Appreciate infectious disease recommendations. - Acute renal failure secondary to ATN: Patient is oliguric. Continue hemodialysis per nephrology. - Diabetes mellitus type 2: Monitor Accu-Cheks and cover with sliding scale insulin. Increase Levemir from 20 units BID. Sliding scale insulin with Aspart. - Right cephalic vein superficial thrombus, left basilic vein thrombus, posterior tibial thrombus - Continue aspirin. Nutrition: Continue Nepro at 50 mL/hour. Full code. Heparin SQ. Discharge plan 07/10/2016: No change in management. Patient can be discharged if a facility accepts him. CM is working with [facility] for placement. 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
--- NOTE | 2016-07-10 17:59 | HHI.NPPN ---
Subjective History of Present Illness 61 year old with ARF, CHF, Respiratory failure Additional Remarks Patient is clinically same, non verbal and unresponsive. Objective Data Data 07/09/16 07/10/16 19:00 07:00 Intake Total 580 ml 1265 ml Output Total 0 ml Balance 580 ml 1265 ml Intake Oral 0 ml Tube Feeding 400 ml 1085 ml Tube Irrigant 180 ml Other 180 ml Output Urine Total 0 ml # Voids 1 # Bowel Movements 1 1 Vital Signs Date Time Temp Pulse Resp B/P Pulse Ox O2 Delivery O2 Flow Rate FiO2 07/10/16 17:52 77 118/63 07/10/16 15:14 76 94/55 07/10/16 12:00 98.0 82 18 139/62 97 07/10/16 08:14 81 07/10/16 08:14 Trach Collar 5.00 28 07/10/16 08:00 98.4 82 18 96/55 96 07/10/16 04:00 98.2 81 20 107/62 90 07/10/16 00:00 98.5 75 16 94/54 95 07/09/16 21:27 Trach Collar 5.00 28 07/09/16 21:26 96 T-piece 6.00 28 07/09/16 20:00 97.9 79 16 121/66 98 07/09/16 20:00 78 -: 07/10/16 0650 Physical Exam General Appearance: No Acute Distress, Comfortable, Obese Neck Neck Exam: Neck Supple Pulmonary Resp Exam: Rhonchi, Decreased Bases, Diminished Breath Sounds, Poor Inspiratory Effort Cardiology CV Exam: Tachycardia Gastrointestinal/Abdomen GI Exam: Soft, Non-Tender, Distended Extremeties Extremities Exam: Moderate Edema, Pitting Edema, Dependent Edema Neurologic Neuro Exam: Unresponsive Assessment/Plan Problem List: (1) Acute renal failure Plan: Patient has acute renal failure BUN and Creatinine remain high Continue HD TTS. watch for any renal recovery. 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
[2016-07-11] VITALS (9 sets, daily range): BP systolic 105–122; BP diastolic 59–70; PULSE 73–101; RESP 18–22; TEMP 96.2–100.4; O2SAT 95–100
[2016-07-11] MEDS: hydrALAZINE HCL 25 MG TAB PO SCH ×3 (05:51→21:30)
[2016-07-11] MEDS: LABETALOL HCL 200 MG TAB PO SCH ×3 (05:51→21:30)
[2016-07-11] MEDS: INSULIN ASPART SUPPLEMENTAL SCALE SQ SCH ×4 (05:51→21:00)
[2016-07-11] MEDS: CHLORHEXIDINE 0.12% (ORAL KIT) 15 ML CUP MT SCH ×2 (08:00→21:31)
[2016-07-11 08:21] LABS: BICARBONATE 22.9 MEQ/L (21.0-32.0)
[2016-07-11 08:28] LABS: POTASSIUM 5.2 MEQ/L (3.5-5.1)
[2016-07-11] MEDS: ARTIFICIAL TEARS OPTH SOLN 15 ML BTL EACH EYE SCH ×3 (08:33→17:38)
[2016-07-11] MEDS: NYSTATIN 100,000 U/GM PWD 15 GM BTL TOPICAL SCH ×2 (08:33→21:31)
[2016-07-11] MEDS: SODIUM CHLORIDE 0.9% FLUSH 5 ML FLUSH IV FLUSH SCH ×2 (08:34→21:31)
[2016-07-11] MEDS: INSULIN DETEMIR 100 UNITS/ML VIAL SQ SCH ×2 (08:34→21:31)
[2016-07-11] MEDS: HEPARIN SODIUM - SQ 10,000 UNITS/ML VIAL SQ SCH ×2 (08:35→21:30)
[2016-07-11] MEDS: PANTOPRAZOLE SODIUM 40 MG VIAL IV PUSH SCH (08:37)
[2016-07-11] MEDS: DILTIAZEM HCL 60 MG TAB PO SCH ×4 (09:00→21:30)
--- NOTE | 2016-07-11 10:51 | HHI.NPPN ---
Subjective History of Present Illness 61 year old with ARF, CHF, Respiratory failure Additional Remarks Patient is clinically same, non verbal and unresponsive. Objective Data Data 07/10/16 07/11/16 18:59 06:59 Intake Total 563 ml 895 ml Balance 563 ml 895 ml Tube Feeding 363 ml 715 ml Tube Irrigant 180 ml Other 200 ml # Voids 1 1 # Bowel Movements 2 1 Vital Signs Date Time Temp Pulse Resp B/P Pulse Ox O2 Delivery O2 Flow Rate FiO2 07/11/16 08:20 77 07/11/16 08:20 Trach Collar 5.00 28 07/11/16 08:00 98.0 78 18 122/63 95 07/11/16 07:48 97 T-piece 6.00 28 07/11/16 04:00 96.2 79 20 111/62 97 07/11/16 00:10 97.1 73 22 107/60 100 07/10/16 22:01 Trach Collar 5.00 28 07/10/16 21:43 100 T-piece 6.00 28 07/10/16 20:15 76 07/10/16 20:00 97.7 76 20 122/68 96 07/10/16 17:52 77 118/63 07/10/16 15:14 76 94/55 07/10/16 12:00 98.0 82 18 139/62 97 -: 07/10/16 0650 07/11/16 0705 Physical Exam General Appearance: No Acute Distress, Comfortable, Obese Neck Neck Exam: Neck Supple Pulmonary Resp Exam: Rhonchi, Decreased Bases, Diminished Breath Sounds, Poor Inspiratory Effort Cardiology CV Exam: Tachycardia Gastrointestinal/Abdomen GI Exam: Soft, Non-Tender, Distended Extremeties Extremities Exam: Moderate Edema, Pitting Edema, Dependent Edema Neurologic Neuro Exam: Unresponsive Assessment/Plan Problem List: (1) Acute renal failure Plan: Patient has acute renal failure BUN and Creatinine remain high Continue HD TTS. watch for any renal recovery. 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
[2016-07-11] MEDS: GENTAMICIN SULFATE (DIALYSIS USE ONLY) 20 MG/2 ML VIAL IV PRN (13:01)
[2016-07-11] MEDS: HEPARIN SODIUM - IV 10,000 UNITS/10 ML VIAL PRN (13:02)
[2016-07-11] MEDS: EPOETIN ALFA 10,000 UNITS/ML VIAL IV PRN (13:03)
[2016-07-11] MEDS: ASPIRIN 81 MG CHEW TAB CHEW SCH (13:55)
[2016-07-11] MEDS ORDERED: LEVEMIR SQ (15:36)
[2016-07-11] MEDS ORDERED: NEXI20CA PO (15:36)
[2016-07-11] MEDS ORDERED: IPRASOL INH (15:36)
[2016-07-11] MEDS ORDERED: LABE200T2 PO (15:36)
[2016-07-11] MEDS ORDERED: HYDR25TA35 PO (15:36)
[2016-07-11] MEDS ORDERED: NYST10007 TOPICAL (15:36)
[2016-07-11] MEDS ORDERED: DILT60TA33 PO (15:36)
[2016-07-11] MEDS ORDERED: Aspirin Chew CHEW (15:36)
[2016-07-11] MEDS ORDERED: NOVOLOGP2 SQ (15:36)
--- NOTE | 2016-07-11 15:36 | HHI.DS ---
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 (4) Retroperitoneal bleed ICD Code: R58 (5) Acute renal failure ICD Code: N17.9 (6) Chronic diastolic congestive heart failure ICD Code: I50.32 (7) Elevated LFTs ICD Code: R94.5 (8) Basal ganglia infarction ICD Code: I63.9 (9) Hypertension ICD Code: I10 (10) Aspiration pneumonia ICD Code: J69.0 Diagnosis: Principal (11) Acute blood loss anemia ICD Code: D62 (12) Acute thrombosis of left basilic vein ICD Code: I82.612 Diagnosis: Principal (13) Acute thrombosis of right cephalic vein ICD Code: I82.611 (14) Diabetes mellitus ICD Code: E11.9 (15) Sinus pause ICD Code: I45.5 (16) Wound of skin ICD Code: R23.8 (17) Leukocytosis ICD Code: D72.829 (18) Catheter-associated urinary tract infection ICD Code: T83.511A (19) Hyperkalemia ICD Code: E87.5 (20) Hyperphosphatemia ICD Code: E83.39 (21) Hypermagnesemia ICD Code: E83.41 Procedures 05/16/16 intubation 05/17/16 left internal jugular central line placement 05/17/16 right internal jugular Vas-Cath placement 05/17/16 right femoral arterial line placement 05/19/16 fiberoptic bronchoscopy 06/01/16 fiberoptic bronchoscopy 06/01/16 tracheostomy Brief History - From Admission 61-year-old AA male. Date of admission 05/05/2016. Date of consultation 2016. Past medical history includes hypertensive heart disease, hypertension, diabetes mellitus type 2 and spinal stenosis. He presented to [facility] today with history of acute onset of diaphoresis, chest pain and syncope. Her documentation, Chest pain was 7 out of 10 without radiation. Later in the hospital physician, patient did have ST elevation anterior septal leads. I he had a cardiac catheterization in 2009 which revealed moderate coronary disease which documented 50-60% stenosis in the LAD diagonals 1 and 2. Recommended medical management at that time. Dr. Marcano was notified and proceed to the cardiac catheter lab. Patient sees heparin and one aspirin prior to cardiac catheterization. During heart catheterization,, patient became hypertensive, tachypneic, hypoxic and agitated including abdominal pain with nausea and vomiting. Patient was intubated by Dr. Simon and dispensed transferred to room 505a. Currently hemodynamic stable on a propofol drip. CBC/BMP: 07/10/16 0650 07/11/16 0705 Significant Findings Laboratory Tests Test 07/10/16 07/11/16 06:50 07:05 White Blood Count 12.6 TH/MM3 (4.0-11.0) Red Blood Count 4.07 MIL/MM3 (4.50-5.90) Hemoglobin 11.7 GM/DL (13.0-17.0) Hematocrit 37.3 % (39.0-51.0) Mean Corpuscular Hemoglobin 31.4 % Concent (32.0-36.0) Red Cell Distribution Width 17.7 % (11.6-17.2) Sodium Level 129 MEQ/L (136-145) Potassium Level 5.2 MEQ/L (3.5-5.1) Chloride Level 88 MEQ/L (98-107) Anion Gap 18 MEQ/L (5-15) Blood Urea Nitrogen 150 MG/DL (7-18) Creatinine 7.30 MG/DL (0.60-1.30) Estimat Glomerular Filtration 9 ML/MIN (>89) Rate Random Glucose 205 MG/DL (74-106) Phosphorus Level 8.3 MG/DL (2.5-4.9) Albumin 2.9 GM/DL (3.4-5.0) Imaging Last Impressions Chest X-Ray 06/26/16 0000 Signed Impressions: Service Date/Time: Sunday, June 26, 2016 08:39 - CONCLUSION: No acute disease. Jonathon Peters MD FACR Chest CT 06/10/16 0000 Signed Impressions: Service Date/Time: Friday, June 10, 2016 16:11 - CONCLUSION: 1. Patchy infiltrates right upper lobe, left upper lobe and superior segments of the lower lobes. 2. Thickening of the right major fissure. 3. Bilateral gynecomastia. 4. Coronary artery calcifications. Carlitos Aguirre MD Liver Ultrasound 06/06/16 Signed Impressions: Service Date/Time: Monday, June 06, 2016 14:18 - CONCLUSION: 1. Liver slightly echogenic which can be seen with fatty infiltration. 2. Spleen not visualized. 3. There may be some minimal gallbladder sludge but no cholelithiasis or wall thickening. Carlitos Aguirre MD Upper Extremity Ultrasound 06/05/16 Signed Impressions: Service Date/Time: Sunday, June 05, 2016 11:01 - CONCLUSION: Occlusive thrombus right cephalic vein and left basilic vein Shahid Sin MD Lower Extremity Ultrasound 06/05/16 Signed Impressions: Service Date/Time: Sunday, June 05, 2016 16:05 - CONCLUSION: Normal examination. No evidence of DVT Shahid Sin MD Gastrostomy Tube Placement 06/02/16 Signed Impressions: Service Date/Time: Thursday, June 02, 2016 12:31 - CONCLUSION: Uncomplicated gastrostomy tube placement as above. Isidro Flor MD Catheter Placement X-Ray 06/02/16 Signed Impressions: Service Date/Time: Thursday, June 02, 2016 12:31 - CONCLUSION: 1. Uncomplicated line placement as above. 2. Patient currently has a modified left subclavian PermCath catheter that is being utilized as a temporary access. Isidro Flor MD Brain MRI 05/27/16 Signed Impressions: Service Date/Time: Friday, May 27, 2016 12:17 - CONCLUSION: Multifocal bilateral T2 signal abnormalities in restricted diffusion concerning for bilateral lacunar infarcts. Carlitos Aguirre MD Head CT 05/16/16 Signed Impressions: Service Date/Time: Monday, May 16, 2016 08:30 - CONCLUSION: Suspected bilateral basal ganglia calcifications are unchanged. No evidence of hemorrhage, edema, mass or mass effect. Stephen Quintanilla MD Abdomen/Pelvis CT 05/16/16 Signed Impressions: Service Date/Time: Monday, May 16, 2016 08:39 - CONCLUSION: There are large areas of hemorrhage including the left retroperitoneum and psoas muscle, within the mesentery and a smaller area in the right psoas muscle. They don't appear to be related to the abdominal aorta or the internal iliac arteries. There is a small focal collection hemorrhage adjacent to the left external iliac artery as it enters the pelvis, but I don't believe that is related to the large amount of hemorrhage seen elsewhere. The areas of hemorrhage are large and multi-focal. Stephen Quintanilla MD CT Angiography 05/06/16 0000 Signed Impressions: Service Date/Time: Saturday, May 07, 2016 00:04 - CONCLUSION: 1. Lobar consolidation bilaterally in the lower lobes. 2. Negative for pulmonary embolism. Michael Colbert MD PE at Discharge GENERAL: Non verbal, keeps eyes closed NECK: Trach in place. CARDIOVASCULAR: Regular rate and rhythm without murmurs. RESPIRATORY: Breath sounds equal bilaterally. No accessory muscle use. GASTROINTESTINAL: Abdomen soft, non-tender, nondistended. MUSCULOSKELETAL: No cyanosis, or edema. SCDs. NEURO: asleep Pt update on day of discharge Patient remains aphasic. Opens his eyes but no other meaningful communications. Hospital Course The following section describes patient's stay in the ICU: 61-year-old AA male. Date of admission 05/05/2016. Date of consultation 2016. Past medical history includes hypertensive heart disease, hypertension, diabetes mellitus type 2 and spinal stenosis. He presented to [facility] today with history of acute onset of diaphoresis, chest pain and syncope. Her documentation, Chest pain was 7 out of 10 without radiation. Later in the hospital physician, patient did have ST elevation anterior septal leads. I he had a cardiac catheterization in 2009 which revealed moderate coronary disease which documented 50-60% stenosis in the LAD diagonals 1 and 2. Recommended medical management at that time. Dr. Marcano was notified and proceed to the cardiac catheter lab. Patient sees heparin and one aspirin prior to cardiac catheterization. During heart catheterization,, patient became hypertensive, tachypneic, hypoxic and agitated including abdominal pain with nausea and vomiting. Patient was intubated by Dr. Simon and dispensed transferred to room 505a. Currently hemodynamic stable on a propofol drip. 05/06: Patient required additional sedation overnight. Was moving all 4 extremity spontaneously and strongly. Potassium is replaced overnight along with magnesium. This afternoon approximate 4 PM, patient went into a sinus bradycardia in the 40s. RN cannot locate pulse and possibly went into a PEA arrest. Patient received CPR for approximately 2 minutes. ROSC return immediately. Received 1 mg of epinephrine IV. Blood pressure was 240 systolic. Saturations were above 90% the entire time. Dr. Marcano was made aware. No new recommendations at this time. Electrolytes currently pending. Patient is currently hemodynamic stable and an arterial line/left radial has been placed 05/07: no improvement in delirium or mental status. spiking low grade fevers. 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 CT surgery consulted and declined to operate here: he will need referral once stabilized. fio2 requirements still high. CT chest also with evidence of bibasilar consolidation which may be aspiration pneumonitis vs. pneumonia now that we are 48h out from initial presentation and now spiking fevers. 05/08: delirium persists. continues to spike fevers. jolly cultured yesterday without results yet. holding sedation today. 05/09: delirium slightly improved. waking up on SAT, weakly following commands. cultures still NGTD. hypoxia slightly improved. 05/10: delirium improving. weakly following commands still. cultures still NGTD. fevers persist, although fever curve appears to be improving. hypoxia continues to improve. still remains very critically ill. 05/11: Tmax 99.9. Currently 99.1. Tolerating tube feeding. One bowel movement. Continues to have difficulty weaning ventilator. 05/12: Currently afebrile. Tolerating tube feeding. Positive BM. Increased FiO2 from 45-60%. +1 L. Arousable on sedation vacation and weakly follows commands. 05/13: Remains intubated, sedated. FiO2 now reduced to 45% (was 55% today am). Start weaning trials after starting Precedex. To control BP May use Cardene, given anomalous RCA 05/14: Extubated yesterday, remained on BiPAP overnight. Intermittently agitated. Following commands to me today, while on BiPAP. Remains on Cardene infusion for uncontrolled hypertension. Urine output 4.7 L in 24 hours 05/15: On 3 L nasal cannula. Fever trending down, breathing more comfortably. Able to communicate. Discussed with Dr. Marcano. Dr. Pendleton will be available tomorrow, will probably need transfer to [facility] for RCA unroofing 05/16: Acutely hypotensive overnight with tachycardia. MAP was 55 with greater than 130s. Received 3.5 L of normal saline bolus with improvement in blood pressure and heart rate. Lethargic on BiPAP. ABG pending, HB dropped from 10.9 to 7.8. No obvious source of bleeding. STAT 2U PRBC. STAT CT head and CT abd pelvis. R/O ICH or RP bleed. Patient received only 5mg Nicci at 2100 yesterday, no other sedation. Last dose of Lovenox was at 211, held now 05/17: Developed Hemorrhagic shock from large retroperitoneal hemorrhage night to 05/15/16. Stabilized after 3 units of PRBC and protamine. Hemoglobin 8.7 today. Remain encephalopathy and unresponsive yesterday. MRI 05/16/16 shows small punctate white matter infarcts, bilateral basal ganglia infarcts. Urology consult pending. Antiplatelet drugs on hold. Now with anuria from ATN secondary to shock. Nephrology consult pending 05/18: Developed sudden onset bradycardia in 40s, with acute hypotension yesterday evening around 5 PM. ACLS protocol initiated (did not arrest or lose pulse). Received multiple epinephrine, bicarbonate calcium and fluid boluses. Patient was placed on dopamine 20 mics per KG per minute, Levophed 20 mics per KG per minute, epinephrine 2.5 mics per minute and eventually stabilized with systolic blood pressure reading 120s. Hemoglobin on ABG was 7 and emergently transfused 3 units PRBC and 2 units FFP. Lab hemoglobin came back at 6.8. Patient also was profoundly acidemic with pH of 7.16. Patient received total 3 A of bicarbonate and bicarbonate infusion was started, minute ventilation was also increased. 2: MAXIMUM TEMPERATURE 100.3. Currently 99.5. No bowel movement. Tube feeds were restarted. FiO2 50%. PEEP at 8. 05/20: MAXIMUM TEMPERATURE 100.9. Positive BM. Tube feeds were restarted today. PT plateau. FiO2 down to 85%. Semiemergent bronchoscopy yesterday for right upper lobe airway obstruction. Resolved 05/21: MAXIMUM TEMPERATURE 100.7. Currently 99.6. Somewhat tachycardic. 2 bowel movements overnight. Tolerating tube feeds at 30 cc an hour. Had episode of emesis overnight. 05/22: Remains sedated, orally intubated on mechanical ventilation. 2/7: Remains sedated, orally intubated on mechanical ventilation. Dialyzed yesterday. 05/24: Remains sedated/encephalopathic, orally intubated on mechanical ventilation. Tolerating tube feeds. Awaiting dialysis 05/25: Remains encephalopathic, orally intubated on mechanical ventilation. Off sedation for 2 days now. PEEP decreased to to +7 05/26 No acute events overnight. For HD today. Afebrile. On PRVC/AC 20, TV 550, PEEP: 6, IT: 1.2 and FIO2 35%. On no sedation. Tolerating tube feeds. 05/27: Tmax 99.8. Currently 99.1. FiO2 down to 35%. Tolerating tube feeding. Positive BM. MRI brain reveals bilateral lacunar infarcts. Will likely need trach 05/28: Afebrile. The patient continues on CPAP trials 28/09 FiO2 of 35%, maintaining O2 sat at 97%. 05/29: The patient continues on CPAP trials. The patient underwent hemodialysis today. The patient is noted to be a medium dose sliding scale insulin with persistent hyperglycemia will increase to high-dose insulin sliding scale. Per hematology the patient was placed on heparin infusion initially, then discontinued.. 05/30 Tmax 100.1. S/P initiation of therapeutic anticoagulation ,serial hemoglobin stable, continue to monitor every 12 hours. Patient continues to fail CPAP trials, plan for tracheostomy, Discussed with patient spouse, she desires a trach and PEG, at this time. 05/31 Tmax 100.1. Maintaining CPAP trials occasionally 3-4 hours. Discussed with family risk and benefits of tracheostomy. Discussed with family MRI results, EEG results. Family requests continue aggressive support. Plan for percutaneous tracheostomy . GI consulted for PEG placement. 06/01 Percutaneous tracheostomy performed today. Plan for patient to go to IR for new Vas-Cath placement per nephrology. 06/02 Patient s/p trach yesterday. For PEG tube placement and HD today today. On no sedation. T: 100.2 06/03 Patient s/p PEG tube placement and HD yesterday with removal 5L. Afebrile. Remains off sedation. 06/04 no acute events overnight. Tolerating C Pap. Will place on T piece 2-4 hours. No change in neuro exam 06/05 No acute events overnight. Tolerated CPAP/TP's trials for 4 hrs yesterday. Afebrile. For HD today 06/06 Patient is on ventilator via trach spiked fever with T: 101.0 last night. s /p HD yesterday with removal 3L. 06/07 Patient s/p HD yesterday with removal 3L. T: 100.8 last night. On ventilator via trach remains encephalopathic. 06/08: Currently getting hemodialysis, no fever white count trending down. Slight improvement in neuro exam. Partial eye-opening to central pain. Withdraws bilateral upper extremity slightly to pain 06/09: No acute events overnight. Tolerated TP yesterday, increase TP time to 8- 10 hours today. at bedside 06/10: Tachypneic today, versus support increased to 15 to breathing 30-35 breaths per minute. Chest x-ray from yesterday and today showing the right upper lobe infiltrates. New sputum culture ordered. Levaquin will be continued , I have added cefepime and discussed with ID 06/11: Chest x-ray shows improving right upper lobe infiltrate. Hemodialysis yesterday with 5 L of fluid removed. Sputum culture pending 06/12: Patient tolerating TP. T max 99.7. Sputum culture with Enterobacter, clear white trach secretions. Neuro remains unchanged 06/13 No acute events overnight. Afebrile. On CPAP 01/18 with 35% FIO2 overnight. For HD today. 06/14 s/p HD yesterday with removal 4.5L. Now on TP with 35% FIO2.. T: 101.1 at midnight 06/15 No acute events overnight. Has been on TP with FIO2 35% >24 hrs. Afebrile. Tolerating tube feeds Mr. Short was subsequently transferred to the hospitalist service. - Hemorrhagic shock status post large retroperitoneal bleed, acute blood loss anemia - Bleeding and shock have resolved. Hemoglobin stable - around 11.2-11.6. - Bilateral basal ganglia infarcts, encephalopathy - Patient appears to move his head somewhat on command although no clear evidence of command following. - Aberrant RCA - Appreciate cardiology and cardiothoracic surgery recommendations. - Will need a referral to [facility] in future. - Chronic diastolic congestive heart failure, coronary artery disease, nonischemic cardiomyopathy - Continue beta daniel, aspirin. Statin on hold. - Hypertension: Continue labetalol, hydralazine, Cardizem. - CAD - Patient presented with EKG consistent with STEMI. The patient underwent emergent cardiac catheterization which showed mild to moderate CAD similar to cardiac catheterization observed in 2010. EKG changes likely consistent with hypertensive emergency. Not a candidate for anticoagulation due to retroperitoneal bleed. Continue aspirin 81 mg. - Acute hypoxemic respiratory failure: Patient was extubated on 05/13/16 and reintubated 05/16/16. Tracheostomy placed 06/01/16. Now off ventilator, tolerating T-piece. Trach management per pulmonology. - Aspiration pneumonia: Completed cefepime, Levaquin on 06/16/16. Appreciate infectious disease recommendations. - Acute renal failure secondary to ATN: Patient is oliguric. Continue hemodialysis per nephrology. - Diabetes mellitus type 2: Monitor Accu-Cheks and cover with sliding scale insulin. Increase Levemir from 20 units BID. Sliding scale insulin with Aspart. - Right cephalic vein superficial thrombus, left basilic vein thrombus, posterior tibial thrombus - Continue aspirin. Nutrition: Continue Nepro at 50 mL/hour. Full code. Heparin SQ. Patient was evaluated by Alessandro and accepted. Patient was subsequently discharged to [facility]. Pt Condition on Discharge: Stable Discharge Disposition: Trnsfr to Other Facility Discharge Time: > 30 minutes Discharge Instructions DIET: Follow Instructions for: On Tube Feeding Speech Therapy-Diet Recommends: Other Activities you can perform: Regular-No Restrictions New Medications: Esomeprazole DR (Nexium) 20 Mg Capdr 20 MG PO DAILY Reflux #30 Ref 0 CAP Insulin Aspart Inj (Novolog Inj) 1,000 Unit/10 Ml Vial 1-9 UNITS SQ ACHS Max dose at bedtime:( )units; sugars less than 70,(0)units; sugars 150-199,(1) unit; sugars 200-249,(3) units; sugars 250-299,(5) units; sugars 300-349,(7) units; sugars greater than 349,(9) units Blood Sugar Management #10 Ref 0 ML Diltiazem (Cardizem) 60 Mg Tab 60 MG PO QID Heart rhythm Days 30 TAB Hydralazine (Hydralazine) 25 Mg Tab 75 MG PO Q8HR Blood Pressure Management #90 TAB Insulin Detemir Inj (Levemir Inj) 1,000 unit/ 10 ML Vial 20 UNITS SQ BID Blood Sugar Management #30 INJECTION Ipratropium-Albuterol Neb (Duoneb) 0.5-2.5 Mg/3 Ml Neb 1 AMPULE INH Q2HR NEB PRN WHEEZING #60 ML Labetalol (Labetalol) 200 Mg Tab 200 MG PO Q8HR Blood Pressure Management #90 TAB Nystatin Topical (Nystop Topical) 100,000 Unit/Gm Powd 1 APPLIC TOPICAL Q12HR Infection #30 BOTTLE ([Aspirin Chew]) 81 MG CHEW 81 MG CHEW DAILY Blood Clot Prevention #30 TAB.CHEW Discontinued Medications: Amlodipine (Norvasc) 5 Mg Tab Unknown Dose PO DAILY Blood Pressure Management #30 Ref 0 TAB Clopidogrel (Plavix) 75 Mg Tab 75 MG PO DAILY Blood Clot Prevention #30 Ref 0 TAB Hydrochlorothiazide (Hydrochlorothiazide) 25 Mg Tab 25 MG PO DAILY #30 Ref 0 TAB Metformin (Metformin) 500 Mg Tab 500 MG PO TIDPC With meals Blood Sugar Management #90 Ref 0 TAB Spironolactone (Spironolactone) 50 Mg Tab Unknown Dose PO BIDPC #60 Ref 0 TAB Gerson Bustos DO Jul 11, 2016 15:36
--- NOTE | 2016-07-11 16:15 | HHI.PR ---
Subjective Remarks no change OPENS EYES , but no focus track ok Objective Vital Signs Date Time Temp Pulse Resp B/P Pulse Ox O2 Delivery O2 Flow Rate FiO2 07/11/16 15:27 98.9 97 20 105/64 07/11/16 08:20 77 07/11/16 08:20 Trach Collar 5.00 28 07/11/16 08:00 98.0 78 18 122/63 95 07/11/16 07:48 97 T-piece 6.00 28 07/11/16 04:00 96.2 79 20 111/62 97 07/11/16 00:10 97.1 73 22 107/60 100 07/10/16 22:01 Trach Collar 5.00 28 07/10/16 21:43 100 T-piece 6.00 28 07/10/16 20:15 76 07/10/16 20:00 97.7 76 20 122/68 96 07/10/16 17:52 77 118/63 I/O 07/10/16 07/10/16 07/10/16 07/11/16 07/11/16 07/11/16 07:00 15:00 23:00 07:00 15:00 23:00 Intake Total 438 ml 563 ml 519 ml 376 ml 464 ml Output Total 0 ml 3000 ml Balance 438 ml 563 ml 519 ml 376 ml -2536 ml Intake Oral 0 ml Tube Feeding 378 ml 363 ml 399 ml 316 ml 364 ml Tube Irrigant 60 ml 120 ml 60 ml Other 200 ml 100 ml Output Urine Total 0 ml Hemodialysis 3000 ml # Voids 1 0 1 # Bowel Movements 1 2 0 1 Result Diagram: 07/10/16 0650 07/11/16 0705 Objective Remarks GENERAL: SKIN: Warm and dry. HEAD: Atraumatic. Normocephalic. EYES: Pupils equal and round. No scleral icterus. No injection or drainage. ENT: No nasal bleeding or discharge. Mucous membranes pink and moist. NECK: Trachea midline. No JVD. tracheostomy in place CARDIOVASCULAR: Regular rate and rhythm. RESPIRATORY: No accessory muscle use. Clear to auscultation. Breath sounds equal bilaterally. GASTROINTESTINAL: Abdomen soft, non-tender, nondistended. Hepatic and splenic margins not palpable. MUSCULOSKELETAL: Extremities without clubbing, cyanosis, or edema. No obvious deformities. NEUROLOGICAL: Awake and alert. No obvious cranial nerve deficits. Motor grossly within normal limits. Five out of 5 muscle strength in the arms and legs. Normal speech. PSYCHIATRIC: Appropriate mood and affect; insight and judgment normal. Assessment and Plan Assessment and Plan respiratory failure s/p Tracheostomy RENAL FAILURE ON DIALYSIS PLAN 02 as needed pulmonary toilet outlook poor Kj Underwood MD Jul 11, 2016 16:15
== END 2016-07-11 22:02 | DRG 4 ==
LOC: NEPC 13:28 → NEDA 14:10 → HIMW 16:50 → N04A 06-23 15:22
PROVIDERS: ADMIT Nuclear Medicine Nuclear Cardiology; ATTEND Hospitalist
PROC: 4A023N7 Measurement of Cardiac Sampling and Pressure, Left Heart, Percutaneous Approach (ICD-10-PCS; principal; 2016-05-05)
PROC: 5A1955Z Respiratory Ventilation, Greater than 96 Consecutive Hours (ICD-10-PCS; 2016-05-05)
PROC: B2111ZZ Fluoroscopy of Multiple Coronary Arteries using Low Osmolar Contrast (ICD-10-PCS; 2016-05-05)
PROC: B2151ZZ Fluoroscopy of Left Heart using Low Osmolar Contrast (ICD-10-PCS; 2016-05-05)
PROC: 4A033BC Measurement of Arterial Pressure, Coronary, Percutaneous Approach (ICD-10-PCS; 2016-05-05)
PROC: 0BH17EZ Insertion of Endotracheal Airway into Trachea, Via Natural or Artificial Opening (ICD-10-PCS; 2016-05-05)
PROC: 0BH17EZ Insertion of Endotracheal Airway into Trachea, Via Natural or Artificial Opening (ICD-10-PCS; 2016-05-16)
PROC: 5A1955Z Respiratory Ventilation, Greater than 96 Consecutive Hours (ICD-10-PCS; 2016-05-16)
PROC: 30233N1 Transfusion of Nonautologous Red Blood Cells into Peripheral Vein, Percutaneous Approach (ICD-10-PCS; 2016-05-16)
PROC: 04HY32Z Insertion of Monitoring Device into Lower Artery, Percutaneous Approach (ICD-10-PCS; 2016-05-17)
PROC: 02HV33Z Insertion of Infusion Device into Superior Vena Cava, Percutaneous Approach (ICD-10-PCS; 2016-05-17)
PROC: 30233K1 Transfusion of Nonautologous Frozen Plasma into Peripheral Vein, Percutaneous Approach (ICD-10-PCS; 2016-05-17)
PROC: 05HN33Z Insertion of Infusion Device into Left Internal Jugular Vein, Percutaneous Approach (ICD-10-PCS; 2016-05-17)
PROC: 5A1D60Z (ICD-10-PCS; 2016-05-18)
PROC: 0BC48ZZ Extirpation of Matter from Right Upper Lobe Bronchus, Via Natural or Artificial Opening Endoscopic (ICD-10-PCS; 2016-05-19)
PROC: 0B948ZX Drainage of Right Upper Lobe Bronchus, Via Natural or Artificial Opening Endoscopic, Diagnostic (ICD-10-PCS; 2016-05-19)
PROC: 0B113F4 Bypass Trachea to Cutaneous with Tracheostomy Device, Percutaneous Approach (ICD-10-PCS; 2016-06-01)
PROC: 5A1955Z Respiratory Ventilation, Greater than 96 Consecutive Hours (ICD-10-PCS; 2016-06-01)
PROC: 0BJ08ZZ Inspection of Tracheobronchial Tree, Via Natural or Artificial Opening Endoscopic (ICD-10-PCS; 2016-06-01)
PROC: 0DH63UZ Insertion of Feeding Device into Stomach, Percutaneous Approach (ICD-10-PCS; 2016-06-02)
PROC: 05H633Z Insertion of Infusion Device into Left Subclavian Vein, Percutaneous Approach (ICD-10-PCS; 2016-06-02)
DX: I16.1 Hypertensive emergency (principal); N17.0 Acute kidney failure with tubular necrosis; I63.9 Cerebral infarction, unspecified; J69.0 Pneumonitis due to inhalation of food and vomit; A41.9 Sepsis, unspecified organism; G92 Toxic encephalopathy; R57.8 Other shock; R65.21 Severe sepsis with septic shock; J15.6 Pneumonia due to other Gram-negative bacteria; J96.01 Acute respiratory failure with hypoxia; G93.1 Anoxic brain damage, not elsewhere classified; Q24.5 Malformation of coronary vessels; Z68.41 Body mass index [BMI] 40.0-44.9, adult; I50.32 Chronic diastolic (congestive) heart failure; D62 Acute posthemorrhagic anemia; I47.2 Ventricular tachycardia; I82.441 Acute embolism and thrombosis of right tibial vein; E87.0 Hyperosmolality and hypernatremia; I82.613 Acute embolism and thrombosis of superficial veins of upper extremity, bilateral; B37.49 Other urogenital candidiasis; T83.511A Infection and inflammatory reaction due to indwelling urethral catheter, initial encounter; E88.09 Other disorders of plasma-protein metabolism, not elsewhere classified; E83.42 Hypomagnesemia; I11.0 Hypertensive heart disease with heart failure; E87.6 Hypokalemia; E66.01 Morbid (severe) obesity due to excess calories; R58 Hemorrhage, not elsewhere classified; G47.33 Obstructive sleep apnea (adult) (pediatric); E11.65 Type 2 diabetes mellitus with hyperglycemia; E87.5 Hyperkalemia; N14.1 Nephropathy induced by other drugs, medicaments and biological substances; Y84.6 Urinary catheterization as the cause of abnormal reaction of the patient, or of later complication, without mention of misadventure at the time of the procedure; K59.00 Constipation, unspecified; T50.8X5A Adverse effect of diagnostic agents, initial encounter; E83.39 Other disorders of phosphorus metabolism; E83.41 Hypermagnesemia; I49.5 Sick sinus syndrome; I25.10 Atherosclerotic heart disease of native coronary artery without angina pectoris; M62.89 Other specified disorders of muscle; M79.81 Nontraumatic hematoma of soft tissue; K72.90 Hepatic failure, unspecified without coma; Z75.1 Person awaiting admission to adequate facility elsewhere; R23.8 Other skin changes
CPT/HCPCS: 31500; 31600; 31624; 36430; 36556; 36600; 36620; 70450; 70551; 71010; 71250; 71275; 74176; 76705; 76937; 76942; 77001; 80048; 80053; 80061; 80069; 80074; 81001; 82140; 82435; 82550; 82552; 82565; 82805; 82947; 82948; 83036; 83605; 83735; 83880; 84100; 84132; 84145; 84155; 84295; 84443; 84484; 84520; 85002; 85007; 85014; 85018; 85025; 85027; 85379; 85384; 85610; 85730; 86850; 86900; 86901; 86920; 86927; 87015; 87040; 87070; 87071; 87077; 87086; 87102; 87116; 87186; 87205; 87206; 87641; 89051; 90935; 93005; 93306; 93454; 93571; 93970; 93971; 94002; 94003; 94150; 94640; 94664; 94667; 95819; 96374; 96375; 99152; 99153; A7520; A7521; C1750; C1769; C1887; C1893; C9113; C9399; J0131; J0153; J0171; J0282; J0360; J0461; J0692; J1265; J1450; J1580; J1610; J1630; J1644; J1650; J1815; J1940; J2060; J2150; J2185; J2248; J2250; J2270; J2310; J2405; J2543; J2720; J2765; J2997; J3010; J3370; J3475; J3480; J7030; J7040; J7050; J7060; J7070; P9016; P9017; P9045; P9047; Q4081; Q9967

== ENCOUNTER 2016-10-07 10:55 | Emergency (ER) | payer OTHER ==
[~2016-10-07] VITALS: Ht 182.9 cm; Wt 125.0 kg
[~2016-10-07 10:55] MED LIST changes: -1-ME1LIQ PO; -ALDA100T PO; +Aspirin Chew CHEW; -CEPH500T PO; -CLOP75 PO; -COZA100T PO; +DILT60TA33 PO; -GLUCTAB PO; -HYDR10SO PO; -HYDR50TA15 PO; +IPRASOL INH; +LABE200T2 PO; +LEVEMIR SQ; -NAPR220T95 PO; +NEXI20CA PO; +NOVOLOGP2 SQ; +NYST10007 TOPICAL; -OMEP20TA PO
[2016-10-07 11:10] VITALS: BP 114/71; PULSE 82; RESP 20; O2SAT 99
--- NOTE | 2016-10-07 11:35 | PD ---
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 The patient is nonverbal and is unable to contribute to history. According to paperwork, the patient does receive dialysis on Sunday, Sunday, Sunday. According to chart , patient has a PMH of STEMI, hypertensive heart disease, hypertension, diabetes mellitus type 2 and spinal stenosis, encephalopathy. Patient last received dialysis on 10/07/16, but only received half a treatment. His hose inspector is Audra. I spoke to the [facility] dialysis [facility] who states the patient's hose inspector Dr. Zhu. They state that he received half a treatment yesterday before his PermCath clotted. PFSH Past Medical History Blood Disorders: No Cancer: No Cardiovascular Problems: Yes Congestive Heart Failure: Yes Diabetes: Yes Endocrine: Yes Genitourinary: No Hypertension: Yes Immune Disorder: No Musculoskeletal: No Neurologic: No Psychiatric: No Reproductive: No Respiratory: No Myocardial Infarction: Yes Past Surgical History Other Surgery: Yes (meniscus fix, back surgery) Social History Alcohol Use: No Tobacco Use: No Substance Use: No Allergies-Medications (Allergen,Severity, Reaction): Coded Allergies: Penicillin (Verified Allergy, Mild, "I GO CRAZY", 09/01/15) Reported Meds & Prescriptions Reported Meds & Active Scripts Active Nexium (Esomeprazole DR) 20 Mg Capdr 20 Mg PO DAILY Novolog Inj (Insulin Aspart) 1,000 Unit/10 Ml Vial 1-9 Units SQ ACHS Max dose at bedtime:( )units; sugars less than 70,(0)units; sugars 150-199,(1) unit; sugars 200-249,(3) units; sugars 250-299,(5) units; sugars 300-349,(7) units; sugars greater than 349,(9) units Nystop Topical (Nystatin Topical) 100,000 Unit/Gm Powd 1 Applic TOPICAL Q12HR Labetalol (Labetalol HCl) 200 Mg Tab 200 Mg PO Q8HR Duoneb (Ipratropium-Albuterol Neb) 0.5-2.5 Mg/3 Ml Neb 1 Ampule INH Q2HR NEB PRN Levemir Inj (Insulin Detemir) 1,000 unit/ 10 ML Vial 20 Units SQ BID Hydralazine (Hydralazine HCl) 25 Mg Tab 75 Mg PO Q8HR Cardizem (Diltiazem HCl) 60 Mg Tab 60 Mg PO QID 30 Days [Aspirin Chew] 81 MG Chew 81 Mg CHEW DAILY Review of Systems Except as stated in HPI: all other systems reviewed are Neg Physical Exam Narrative GENERAL: Well-nourished, well-developed male patient, afebrile patient is nonverbal. He does not follow commands. SKIN: Focused skin assessment warm/dry. Permcath is noted to left chest. HEAD: Normocephalic. Atraumatic EYES: No scleral icterus. No injection or drainage. NECK: Supple, trachea midline. No JVD or lymphadenopathy. CARDIOVASCULAR: Regular rate and rhythm without murmurs, gallops, or rubs. RESPIRATORY: Breath sounds equal bilaterally. No accessory muscle use. GASTROINTESTINAL: Abdomen soft, non-tender, nondistended. Patient has a G-tube noted to upper abdomen. MUSCULOSKELETAL: No cyanosis, or edema. Left arm is rigid. BACK: Nontender without obvious deformity. No CVA tenderness. Data Data Last Documented VS Vital Signs Date Time Temp Pulse Resp B/P Pulse Ox O2 Delivery O2 Flow Rate FiO2 10/07/16 12:19 98.0 10/07/16 11:10 82 20 114/71 99 Orders Iv Access Insert/Monitor (10/07/16 11:30) Complete Blood Count With Diff (10/07/16 11:30) Comprehensive Metabolic Panel (10/07/16 11:30) Act Partial Throm Time (Ptt) (10/07/16 11:30) Prothrombin Time / Inr (Pt) (10/07/16 11:30) Labs Laboratory Tests Test 10/07/16 11:30 Sodium Level 135 MEQ/L Potassium Level 4.3 MEQ/L Chloride Level 96 MEQ/L Carbon Dioxide Level 27.8 MEQ/L Anion Gap 11 MEQ/L Blood Urea Nitrogen 40 MG/DL Creatinine 5.06 MG/DL Estimat Glomerular Filtration 14 ML/MIN Rate Random Glucose 118 MG/DL Calcium Level 9.5 MG/DL Total Bilirubin 0.3 MG/DL Aspartate Amino Transf 23 U/L (AST/SGOT) Alanine Aminotransferase 17 U/L (ALT/SGPT) Alkaline Phosphatase 79 U/L Total Protein 7.2 GM/DL Albumin 3.2 GM/DL MDM Medical Decision Making Medical Screen Exam Complete: Yes Emergency Medical Condition: Yes Medical Record Reviewed: Yes Differential Diagnosis Fluid overload versus flash abnormality versus PermCath replacement Narrative Course 61-year-old male presents here from nursing facility for PermCath replacement and dialysis. I spoke to the dialysis center states the patient only received half a treatment yesterday before the PermCath clotted. His hose inspector is Dr. Zhu. CBC, CMP, PTT, PTT/INR ordered and pending. CMP shows normal potassium 4.3, BUN 40, cutting 5.06. I have paged the patient' s hose inspector. Patient's hose inspector has not yet returned call. 1250 - I spoke to our interventional radiologist, Dr. Peters, who states that he hose inspector needs to see the patient states this is needs to be done emergently. He states that with the electrolytes being normal, this most likely could be scheduled on Sunday and does not need to be done emergently on the weekend. Patient's hose inspector is paged again. 1259 - I spoke to Dr. James, who is cosmetic consultant for patient's hose inspector, Dr. Zhu. He states he agrees that this does not need to be done on an emergent basis. However, he is concerned that the patient will not make it to dialysis on Sunday. He is unsure what time the patient gets dialysis on Sunday. 1315 - I spoke to the [facility] dialysis center and spoke to Janis there. She states he is scheduled for 12:30 at their center. She states is the latest that they have. I then spoke to Dr. Peters, interventional radiologist on-call. He states that he is able to get his PermCath replaced and get him to his dialysis by 12:30. He scheduled him for 7:30 on Sunday morning. He is to be nothing by mouth after midnight on Sunday night. I discussed this with the patient's who is in agreement with this. The patient will be discharged back to nursing facility and is to return on Sunday morning for PermCath replacement. An order is placed for this. According to documentation, the patient is not on any anticoagulants. I discussed the case my attending physician, Dr. Marcano, who agrees with plan and disposition. Diagnosis Primary Impression: Chronic renal failure Qualified Code: N18.9 - Chronic renal failure, unspecified stage Patient Instructions: General Instructions, Perma-cath Placement (GEN) Additional Instructions: I have scheduled a PermCath replacement at 7:30 on Sunday morning. The patient needs to be nothing by mouth after midnight on Sunday night. Return to the emergency department for any acute worsening of symptoms. Med/Other Pt SpecificInfo: No Change to Meds Disposition: 03 DISCHARGE TO SNF Condition: Stable Bree dEdy Oct 07, 2016 11:35
[2016-10-07 12:19] VITALS: TEMP 98
[2016-10-07 12:20] LABS: ALKALINE PHOSPHATASE 79 U/L (45-117); TOTAL BILIRUBIN ADULT 0.3 MG/DL (0.2-1.0)
[2016-10-07 12:26] LABS: ALT (GPT) 17 U/L (12-78); ANION GAP 11 MEQ/L (5-15); AST (GOT) 23 U/L (15-37); BICARBONATE 27.8 MEQ/L (21.0-32.0); BLOOD UREA NITROGEN 40 MG/DL (7-18); CHLORIDE 96 MEQ/L (98-107); GLOMERULAR FILTRATION RATE 14 ML/MIN (>89); POTASSIUM 4.3 MEQ/L (3.5-5.1); SODIUM (NA) 135 MEQ/L (136-145)
[2016-10-07 14:19] VITALS: BP 138/87; PULSE 78
== END 2016-10-07 16:48 ==
LOC: NEPE 10:55
DX: T85.898A Other specified complication of other internal prosthetic devices, implants and grafts, initial encounter (principal); E11.22 Type 2 diabetes mellitus with diabetic chronic kidney disease; I12.9 Hypertensive chronic kidney disease with stage 1 through stage 4 chronic kidney disease, or unspecified chronic kidney disease; N18.9 Chronic kidney disease, unspecified; I50.9 Heart failure, unspecified; I25.2 Old myocardial infarction; Z99.2 Dependence on renal dialysis; Z79.899 Other long term (current) drug therapy; Z79.82 Long term (current) use of aspirin
CPT/HCPCS: 80053; 99283

== ENCOUNTER 2016-10-09 07:56 | Day surgery (SDC) | payer OTHER ==
[~2016-10-09] VITALS: Ht 180.3 cm; Wt 120.5 kg
[2016-10-09 08:54] VITALS: BP 118/73; PULSE 81; RESP 16; TEMP 98.4; O2SAT 100
[2016-10-09] MEDS ORDERED: METO50TA PO (09:05)
[2016-10-09] MEDS ORDERED: FAMO20TA2 PO (09:05)
[2016-10-09] MEDS ORDERED: VANCOMYCIN HCL 1000 MG ON-CALL/NS 250 ML IV SCH ×2 (09:30)
[2016-10-09] MEDS ORDERED: fentaNYL CITRATE 250 MCG/5 ML AMP ONE (09:38)
[2016-10-09] MEDS ORDERED: LORazepam 2 MG/ML VIAL ONE (09:38)
[2016-10-09] MEDS ORDERED: LIDOCAINE 1%/EPINEPHrine 1:100,000 SOLN 20 ML VIAL ONE (09:56)
--- NOTE | 2016-10-09 10:35 | PD.RAD ---
Post Procedure Progress Note Pre Procedure Diagnosis: (1) Chronic renal failure Post Procedure Diagnosis: (1) Chronic renal failure Procedure Date: Oct 09, 2016 Supervising Radiologist: Mj Martínez Proceduralist/Assist: Alberta Bustos, RT(R), Allegra Danielson RT(R)() Anesthesia: Local Plan of Activity Patient to Unit: ROPU Patient Condition: Good Additional Comments: Placed right IJ cath. See PACS Report for procedural detail/treatment Mj Martínez MD Oct 09, 2016 10:35
[2016-10-09 10:45] VITALS: BP 141/75; PULSE 96; TEMP 98.1; O2SAT 97
[2016-10-09] MEDS ORDERED: SODIUM CHLORIDE 0.9% FLUSH 10 ML FLUSH IVF PRN (10:45)
[2016-10-09] MEDS ORDERED: HEPARIN SODIUM - IV 2,000 UNITS/2 ML VIAL IV FLUSH PRN (10:45)
[2016-10-09 11:00] VITALS: BP 141/81; PULSE 92; TEMP 98.1; O2SAT 99
--- NOTE | 2016-10-09 13:50 | RADRPT ---
EXAM DATE/TIME: 10/09/2016 10:07 [facility] COMPARISON: No previous studies available for comparison. INDICATIONS : Patient is in need of placement of a right sided dialysis catheter due to ESRD. Existing left subclav amber dialysis catheter is malfunctioning. Therefore, plan is to remove subclavian catheter in place a new right IJ catheter. MEDICAL HISTORY : History of anoxic brain injury, STEMI, HTN, DM, spinal stenosis, encephalopathy, CHF, SURGICAL HISTORY : History of permcath placement, back surgery, meniscus repair. ENCOUNTER: Subsequent ACUITY: 2 days PAIN SCORE: 0/10 LOCATION: Patient is non verbal. FLUORO TIME: 0.6 minutes IMAGE SERIES: 0 ACCESS: Right internal jugular vein Prophylactic antibiotics were administered with appropriate pre-procedure timing. Vancomycin within 2 hours of procedure, Ancef (or alternative) within 1 hour of procedure. DEVICE: 1. 15 Ecuadorean dual lumen 23 cm Groves II Plus catheter PROCEDURE : 1. Ultrasound-guided venipuncture. 2. PermaCath placement. The risks, benefits and alternatives to the procedure were explained and verbal and written consent w as obtained. The site was prepped in sterile fashion. Full sterile technique was used, including ca p, mask, sterile gloves and gown and a large sterile sheet. Hand hygiene and 2% chlorhexidine and/or betadine/alcohol prep was utilized per protocol for cutaneous antisepsis. The skin and subcutaneous tissues were infiltrated with local anesthetic solution. With ultrasound and fluoroscopic guidance a dermatotomy was created over the prescribed vein. A micr opuncture set was used to access the targeted vein and serial dilatation was performed to accept the prescribed length catheter. A subcutaneous tunnel was created in a retrograde fashion the catheter w as pulled through the tunnel. The catheter was flushed and assembled and locked with heparin. The c atheter was sutured in place. Next, patient's subclavian catheter was removed and hemostasis obtained at the puncture site with manual compression. Patient did not require conscious sedation for the procedure although vital sign monitoring was perfo rmed throughout the procedure. EKG and oximetry remained stable throughout the procedure. The patien t tolerated the procedure well and there were no complications. The patient was sent to post anest hesia recovery in stable condition. CONCLUSION: Uncomplicated PermaCath placement as above. Mj Martínez MD on October 09, 2016 at 13:45 Board Certified Radiologist. This report was verified electronically.
--- NOTE | 2016-10-09 13:52 | RADRPT ---
EXAM DATE/TIME: 10/09/2016 00:00 [facility] COMPARISON: No previous studies available for comparison. INDICATIONS : Patient is in need of removal of left sided dialysis catheter due to non functionality. MEDICAL HISTORY : History of ESRD, anoxic brain injury, STEMI, HTN, DM, spinal stenosis, encephalopathy, CHF. SURGICAL HISTORY : History of permcath placement, back surgery, meniscus repair. ENCOUNTER: Subsequent ACUITY: 2 days PAIN SCORE: 0/10 IMAGE SERIES: 0 ACCESS: Left subclavian vein PROCEDURE : 1. Temporary central venous catheter removal. The prescribed catheter was removed intact and hemostasis was achieved with direct pressure. The sit e was dressed appropriately. The patient tolerated the procedure well. CONCLUSION: Uncomplicated catheter removal. Mj Martínez MD on October 09, 2016 at 13:50 Board Certified Radiologist. This report was verified electronically.
== END 2016-10-09 11:30 | disposition home or self-care (01) ==
LOC: HRAD 07:56 → HRIP 08:09 → HRAD 11:30
PROVIDERS: ATTEND Radiology Diagnostic Radiology
DX: I12.0 Hypertensive chronic kidney disease with stage 5 chronic kidney disease or end stage renal disease (principal); N18.6 End stage renal disease; E11.9 Type 2 diabetes mellitus without complications; I25.2 Old myocardial infarction; G93.40 Encephalopathy, unspecified; Z99.2 Dependence on renal dialysis
CPT/HCPCS: 36558; 36589; 76937; 77001; C1750; C1769; J1644; J2060; J3010; J3370; J7050

== ENCOUNTER 2016-12-04 16:53 | Emergency (ER) | payer OTHER ==
[~2016-12-04] VITALS: Ht 182.9 cm; Wt 125.0 kg
[~2016-12-04 16:53] MED LIST changes: -DILT60TA33 PO; +FAMO20TA2 PO; -HYDR25TA35 PO; -LABE200T2 PO; +METO50TA PO
[2016-12-04 16:55] VITALS: BP 132/88; PULSE 92; RESP 28; O2SAT 98
--- NOTE | 2016-12-04 18:36 | PD ---
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 Patient is accompanied by his . She states that they were unable to access his dialysis catheter today and were sent here to the emergency department for dialysis. She states the patient's job developer for deaf adults is Dr. Zhu in [place]. He has otherwise been acting his normal self. No recent illnesses, fever, or chills. No other symptoms to report. PFSH Past Medical History Hx Anticoagulant Therapy: Yes Blood Disorders: No Cancer: No Cardiovascular Problems: Yes Congestive Heart Failure: Yes Cerebrovascular Accident: Yes Diabetes: Yes Endocrine: Yes Gastrointestinal Disorders: Yes (PEG tube) Genitourinary: No Hiatal Hernia: No Hypertension: Yes Immune Disorder: No Implanted Vascular Access Dvce: No Musculoskeletal: No Neurologic: No Psychiatric: No Reproductive: No Respiratory: Yes (Trach reversal) Integumentary: Yes (several ulcers on bottocks) Myocardial Infarction: Yes Thyroid Disease: No Past Surgical History AICD: No Joint Replacement: No Neurologic Surgery: Yes (brain injury) Pacemaker: No Other Surgery: Yes (meniscus fix, back surgery) Social History Alcohol Use: No Tobacco Use: No Substance Use: No Allergies-Medications (Allergen,Severity, Reaction): Coded Allergies: penicillin G (Unverified Allergy, Mild, "I GO CRAZY", 11/28/16) Reported Meds & Prescriptions Reported Meds & Active Scripts Active Nexium (Esomeprazole DR) 20 Mg Capdr 20 Mg PO DAILY Novolog Inj (Insulin Aspart) 1,000 Unit/10 Ml Vial 1-9 Units SQ ACHS Max dose at bedtime:( )units; sugars less than 70,(0)units; sugars 150-199,(1) unit; sugars 200-249,(3) units; sugars 250-299,(5) units; sugars 300-349,(7) units; sugars greater than 349,(9) units Nystop Topical (Nystatin Topical) 100,000 Unit/Gm Powd 1 Applic TOPICAL Q12HR Duoneb (Ipratropium-Albuterol Neb) 0.5-2.5 Mg/3 Ml Neb 1 Ampule INH Q2HR NEB PRN Levemir Inj (Insulin Detemir) 1,000 unit/ 10 ML Vial 20 Units SQ BID [Aspirin Chew] 81 MG Chew 81 Mg CHEW DAILY Reported Metoprolol Tartrate 50 Mg Tab 50 Mg PO DAILY Famotidine 20 Mg Tab 20 Mg PO BID Review of Systems ROS Limitations: Altered Mental Status Except as stated in HPI: all other systems reviewed are Neg Physical Exam Exam Limitations: Altered Mental Status Narrative GENERAL: Well-nourished, male patient, lying in bed appears in no acute distress. Patient is unable to verbally communicate. He does not follow some commands. SKIN: Focused skin assessment warm/dry. HEAD: Atraumatic. Normocephalic. EYES: Pupils equal and round. No scleral icterus. No injection or drainage. ENT: No nasal bleeding or discharge. Mucous membranes pink and moist. NECK: Trachea midline. No JVD. CARDIOVASCULAR: Regular rate and rhythm. 2/6 systolic murmur appreciated. RESPIRATORY: No accessory muscle use. Clear to auscultation. Breath sounds equal bilaterally. GASTROINTESTINAL: Abdomen soft, non-tender, nondistended. Hepatic and splenic margins not palpable. PEG tube in place. MUSCULOSKELETAL: No obvious deformities. No clubbing. No cyanosis. No edema. Fractures of the upper extremities. NEUROLOGICAL: Eyes open spontaneously. Patient is nonverbal. Data Data Last Documented VS Vital Signs Date Time Temp Pulse Resp B/P (MAP) Pulse Ox O2 Delivery O2 Flow Rate FiO2 12/04/16 20:08 83 16 122/65 (84) 100 Nasal Cannula 2.00 12/04/16 18:57 98.9 Orders Orders Iv Access Insert/Monitor (12/04/16 18:43) Complete Blood Count With Diff (12/04/16 18:43) Basic Metabolic Panel (Bmp) (12/04/16 18:43) Chest, Single Ap (12/04/16 ) B-Type Natriuretic Peptide (12/04/16 18:43) Heparin Central Flush (Heparin Central F (12/04/16 20:30) Diet Tube Feed Only (12/05/16 Breakfast) Tube Feeding (12/04/16 22:13) Tubing, Kangaroo 706-204 Ea (12/04/16 22:13) ^ Kangaroo Pump (12/04/16 22:13) Labs Laboratory Tests Test 12/04/16 19:30 White Blood Count 11.9 TH/MM3 Red Blood Count 4.33 MIL/MM3 Hemoglobin 11.5 GM/DL Hematocrit 37.7 % Mean Corpuscular Volume 87.2 FL Mean Corpuscular Hemoglobin 26.7 PG Mean Corpuscular Hemoglobin Concent 30.6 % Red Cell Distribution Width 17.1 % Platelet Count 337 TH/MM3 Mean Platelet Volume 7.2 FL Neutrophils (%) (Auto) 80.9 % Lymphocytes (%) (Auto) 11.1 % Monocytes (%) (Auto) 5.9 % Eosinophils (%) (Auto) 1.6 % Basophils (%) (Auto) 0.5 % Neutrophils # (Auto) 9.7 TH/MM3 Lymphocytes # (Auto) 1.3 TH/MM3 Monocytes # (Auto) 0.7 TH/MM3 Eosinophils # (Auto) 0.2 TH/MM3 Basophils # (Auto) 0.1 TH/MM3 CBC Comment DIFF FINAL Differential Comment Blood Urea Nitrogen 60 MG/DL Creatinine 5.26 MG/DL Random Glucose 109 MG/DL Calcium Level 9.3 MG/DL Sodium Level 134 MEQ/L Potassium Level 3.9 MEQ/L Chloride Level 97 MEQ/L Carbon Dioxide Level 27.7 MEQ/L Anion Gap 9 MEQ/L Estimat Glomerular Filtration Rate 14 ML/MIN B-Type Natriuretic Peptide 34 PG/ML MDM Medical Decision Making Medical Screen Exam Complete: Yes Emergency Medical Condition: Yes Medical Record Reviewed: Yes Differential Diagnosis Baseline examination versus electrolyte abnormality versus malfunction of dialysis catheter versus clot versus obstruction Narrative Course 61-year-old male presents to emergency department with his who states that the patient's job developer for deaf adults, Dr. Zhu, the patient's job developer for deaf adults, sent them to the emergency department for dialysis due to his dialysis catheter not being able to be accessed today. She reports the patient is otherwise at his baseline. Nursing staff is able to irrigate and flush the catheter the right subclavian. CBC is a mild leukocytosis 11.9, hemoglobin is 11.5, BMP is with sodium 134, potassium 3.9, BUN is 60, creatinine 5.26, GFR 14. BNP is 34. 2106 We have placed multiple calls to the patient's job developer for deaf adults and were informed from the call center that her patients typically do not come [place] and the on-call job developer for deaf adults would be contacting us back. This is not yet happened. I have placed a call to our job developer for deaf adults button reclaimer to injure the patient can be safely discharged to follow-up with his job developer for deaf adults outpatient. Wang discussed with the patient's and she is in agreement with the splenic care, only after I speak to job developer for deaf adults. 2199 we are still waiting on return call from nephrology. I discussed the patient my attending physician. He appears in no acute distress. His catheter use for dialysis is flushing and withdrawing. Lab work is really not concerning for end-stage renal disease. Potassium is 3.9. Sodium is 134. BUN is 60, creatinine 5.26, GFR 14. BNP is 34. Chest x-ray is without acute cardiopulmonary disease. Permacath is noted. [address] Bhat, job developer for deaf adults button reclaimer for hospital. I have reviewed the findings with him. He agrees that at this point there is no need for emergent dialysis and the patient can be discharged to follow-up with his job developer for deaf adults tomorrow. Wang discussed with the family. Patient will be discharged at this time. 2234 Dr. James has now returned my call. I have discussed the patient, lab findings, and radiology report with him. I have informed him that the permacath is aspirating and flushing here in the emergency department. He states that the patient should be hooked up to a dialysis machine to ensure that his permacath is working. I suggested the patient followup in clinic tomorrow and if permacath is not working that it be scheduled for outpatient replacement. He then advises me to do what I need to do. I have discussed further with my attending who agrees the patient does not meet admission need nor does he need emergent dialysis at this time. I have discussed all this with the . She is aware and agrees to contact the dialysis center tomorrow. She is aware that the permacath may not work at dialysis tomorrow and replacement may need to be scheduled. Diagnosis Primary Impression: Chronic renal failure Qualified Codes: N18.4 - Chronic kidney disease, stage 4 (severe) Referrals: [facility] Line Operator Primary Care Physician Patient Instructions: End Stage Kidney Disease (ED), General Instructions Additional Instructions: Follow-up with your primary care provider Follow-up with your job developer for deaf adults. Contact the office tomorrow to resume dialysis Return immediately to the emergency department with any acute worsening symptoms. Med/Other Pt SpecificInfo: No Change to Meds Disposition: 01 DISCHARGE HOME Condition: Stable Catherine East Dec 04, 2016 18:36
[2016-12-04 18:57] VITALS: TEMP 98.9
--- NOTE | 2016-12-04 19:12 | RADRPT ---
EXAM DATE/TIME: 12/04/2016 18:58 [facility] COMPARISON: CHEST SINGLE AP, June 26, 2016, 8:39. INDICATIONS : Short of breath MEDICAL HISTORY : History of anoxic brain injury, STEMI, HTN, DM, spinal stenosis, encephalopathy, SURGICAL HISTORY : permcath placement, back surgery, meniscus repair. ENCOUNTER: Initial ACUITY: 1 day PAIN SCORE: Non-responsive. LOCATION: chest FINDINGS: The lungs are hypoaerated. There some mild vascular engorgement. There is no evidence of pulmonary ed lainey, pleural effusions or consolidating airspace disease. A right internal jugular tunneled permacath is noted. Heart is mildly enlarged. CONCLUSION: No evidence of significant congestion or consolidating airspace disease. Right-sided tunneled permacath Oliver Feldman MD on December 04, 2016 at 19:07 Board Certified Radiologist. This report was verified electronically.
[2016-12-04 19:28] VITALS: BP 151/79; PULSE 88; RESP 12; O2SAT 99
[2016-12-04 19:51] LABS: AUTOMATED NEUTROPHIL # 9.7 TH/MM3 (1.8-7.7); BASOPHIL # 0.1 TH/MM3 (0-0.2); BASOPHIL % 0.5 % (0.0-2.0); EOSINOPHIL # 0.2 TH/MM3 (0-0.4); EOSINOPHIL % 1.6 % (0.0-4.0); HEMATOCRIT 37.7 % (39.0-51.0); HEMO FLAGS DIFF FINAL; LYMPH % 11.1 % (9.0-44.0); LYMPHOCYTE # 1.3 TH/MM3 (1.0-4.8); MEAN CELL VOLUME 87.2 FL (80.0-100.0); MEAN CORPUSCULAR HEMOGLOBIN 26.7 PG (27.0-34.0); MEAN CORPUSCULAR HGB CONC 30.6 % (32.0-36.0); MONO % 5.9 % (0.0-8.0); NEUT % 80.9 % (16.0-70.0); PLATELET COUNT 337 TH/MM3 (150-450); RED BLOOD COUNT 4.33 MIL/MM3 (4.50-5.90); RED CELL DISTRIBUTION WIDTH 17.1 % (11.6-17.2); WHITE BLOOD COUNT 11.9 TH/MM3 (4.0-11.0)
[2016-12-04 20:07] LABS: BICARBONATE 27.7 MEQ/L (21.0-32.0); POTASSIUM 3.9 MEQ/L (3.5-5.1)
[2016-12-04 20:08] VITALS: BP 122/65; PULSE 83; RESP 16; O2SAT 100
[2016-12-04 22:49] VITALS: BP 115/71; PULSE 80; RESP 16; O2SAT 100
== END 2016-12-04 23:40 | disposition home or self-care (01) ==
LOC: NEPC 16:53
DX: T82.49XA Other complication of vascular dialysis catheter, initial encounter (principal); E11.22 Type 2 diabetes mellitus with diabetic chronic kidney disease; I13.2 Hypertensive heart and chronic kidney disease with heart failure and with stage 5 chronic kidney disease, or end stage renal disease; N18.6 End stage renal disease; I50.9 Heart failure, unspecified; Z99.2 Dependence on renal dialysis; Z79.4 Long term (current) use of insulin
CPT/HCPCS: 71010; 80048; 83880; 85025; 99284; J1642

== ENCOUNTER → 2017-03-20 | Day surgery (SDC) | payer MEDICAID ==
[~2017-03-20] MED LIST changes: +*LABETALOL HCL 100 MG/20 ML VIAL PERIprocedural Use ONLY ONE; +AMINLIQ7 G-TUBE; +ASCO500C PO; +BUPIVACAINE HCL PF 0.5% 30 ML VIAL ONE; +CHLORHEXIDINE GLUCONATE 2 % 1 PACK (2 CLOTHS) TOPICAL PRN; +DIGO0.12 PO; +DO NOT ADM ANY ANTICOAGULANT DRUGS PRN; +HEPA100I8 IV; +HEPARIN SODIUM - IV 10,000 UNITS/10 ML VIAL ONE; +HEPARIN-NS/PF INJ 500 ML ONE; +HUMALOG SQ; +Hemodialysis Vas Acc Cath PRN Heparin 1000 unit/ml Flush IV FLUSH; +Hemodialysis Vas Access Cath PRN NS Lock Flush IV FLUSH; +LACTATED RINGER'S 1000 ML IV PRN; +METO50TA G-TUBE; +METOPROLOL TARTRATE 25 MG TAB PO PRN; +NYST100084 TOPICAL; +POVIDONE IODINE 5% (ANTISEPSIS KIT) 4 APPLICATIONS EACH NARE PRN; +PROTAMINE SULFATE 50 MG/5 ML VIAL ONE; +RENATAB6 PO; +SODIUM CHLORID 0.9% 500 ML IV PRN; +THROMBIN (TOPICAL) 20,000 UNIT SPRAY KIT ONE; +VANCOMYCIN HCL 1000 MG VIAL ONE; +ZINC220T PO
[2017-03-20 11:19] LABS: AUTOMATED NEUTROPHIL # 11.4 TH/MM3 (1.8-7.7); BASOPHIL # 0.1 TH/MM3 (0-0.2); BASOPHIL % 0.7 % (0.0-2.0); EOSINOPHIL # 0.1 TH/MM3 (0-0.4); HEMATOCRIT 21.1 % (39.0-51.0); LYMPH % 10.6 % (9.0-44.0); LYMPHOCYTE # 1.5 TH/MM3 (1.0-4.8); MEAN CELL VOLUME 84.2 FL (80.0-100.0); MEAN CORPUSCULAR HEMOGLOBIN 25.7 PG (27.0-34.0); MEAN CORPUSCULAR HGB CONC 30.6 % (32.0-36.0); MONO % 6.7 % (0.0-8.0); PLATELET COUNT 569 TH/MM3 (150-450); RED BLOOD COUNT 2.51 MIL/MM3 (4.50-5.90); RED CELL DISTRIBUTION WIDTH 15.7 % (11.6-17.2)
[2017-03-20 11:22] LABS: HEMO FLAGS DIFF FINAL
[2017-03-20 11:29] LABS: INTERNATIONAL NORMALIZED RATIO 1.1 RATIO; PROTHROMBIN TIME - PATIENT 11.4 SEC (9.8-11.6)
[2017-03-20 11:39] LABS: BICARBONATE 31.3 MEQ/L (21.0-32.0); POTASSIUM 3.8 MEQ/L (3.5-5.1)
--- NOTE | 2017-03-20 12:24 | PD.VS.PN ---
Pre-operative Note Pre-operative diagnosis: ESRD, need for HD access Planned procedure: R UE AVF (likely brachiocephalic) Interval History: Pt has no F/C according to the . Ready for surgery. Labs: Laboratory Results Test 03/20/17 10:50 Anion Gap 7 MEQ/L (5-15) Blood Urea Nitrogen 38 MG/DL (7-18) Creatinine 3.23 MG/DL (0.60-1.30) Random Glucose 168 MG/DL (74-106) Calcium Level 8.9 MG/DL (8.5-10.1) Sodium Level 136 MEQ/L (136-145) Potassium Level 3.8 MEQ/L (3.5-5.1) Chloride Level 98 MEQ/L (98-107) Carbon Dioxide Level 31.3 MEQ/L (21.0-32.0) Hematocrit 21.1 % (39.0-51.0) Hemoglobin 6.4 GM/DL (13.0-17.0) Mean Corpuscular Hemoglobin 25.7 PG (27.0-34.0) Mean Corpuscular Hemoglobin Concent 30.6 % (32.0-36.0) Mean Corpuscular Volume 84.2 FL (80.0-100.0) Mean Platelet Volume 7.0 FL (7.0-11.0) Platelet Count 569 TH/MM3 (150-450) Prothromb Time International Ratio 1.1 RATIO Red Blood Count 2.51 MIL/MM3 (4.50-5.90) Red Cell Distribution Width 15.7 % (11.6-17.2) White Blood Count 14.0 TH/MM3 (4.0-11.0) Blood: none needed Imaging: duplex reviewed Orders: NPO VANC 1g IV OCTOR Post-operative destination: PACU; Operative site marked: Yes Consent: Informed consent has been obtained from Low Short Jr. I have explained the procedure in detail and discussed the risks, benefits, and potential complications. All questions have been answered. Patient contact information: [phone] Yifan Porter MD Mar 20, 2017 12:24
--- NOTE | 2017-03-20 14:35 | HHI.PR ---
Immediate Post Op Note Procedure Date: Mar 20, 2017 Pre Op Diagnosis: ESRD, need for HD access Post Op Diagnosis: ESRD, need for HD access Surgeon: Yifan Porter Manager Labor Relations(s): Radha Mccormick Procedure: R brachiobasilic AVF (1st stage) Findings: 4mm artery and vein Additional Information: + thrill and + Doppler signal in wrist Complications: none Specimen(s) removed: none Estimated blood loss: 15mL Anesthesia: LMA Drains: None Fluids: 150mL IVF Patient to: PACU Patient Condition: Good Date/Time of Procedure: SEE SURGICAL CARE RECORD Yifan Porter MD Mar 20, 2017 14:35
[2017-03-20 16:20] VITALS: BP 184/84; PULSE 94; RESP 20; TEMP 97.8; O2SAT 100
--- NOTE | 2017-03-20 21:03 | MP ---
cc: KELSEY PORTER MD DATE OF SURGERY: 03/20/2017. PREOPERATIVE DIAGNOSIS: End-stage renal disease needs dialysis access. POSTOPERATIVE DIAGNOSIS: End-stage renal disease needs dialysis access. OPERATIVE PROCEDURE PERFORMED: Right brachiobasilic arteriovenous fistula (first stage). ATTENDING SURGEON: Kelsey Porter MD. COMMERCIAL CREDIT PORTFOLIO MANAGER SURGEON: Radha Mccormick MD. ANESTHESIA: General. INDICATIONS FOR THE PROCEDURE: Mr. Short is a middle-aged gentleman with end-stage renal disease. He needs dialysis access. He has dilated into the catheter but has had multiple catheter-related infections and thrombotic events. DESCRIPTION OF THE PROCEDURE IN DETAIL: Informed consent was obtained from the patient. He was taken to the operating room and placed supine on the operating room table. An appropriate time out was taken to ensure the patient's family as the patient was not capable of providing informed consent. He was taken to the operating room and placed supine on the operating room table. An appropriate time out was taken to ensure the patient's identity, operative site and planned procedure. The administration of 1 gram of Vancomycin was initiated prior to the skin incision and will be discontinued after a single preoperative dose. Vancomycin was chosen because of the patient's PENICILLIN ALLERGY as well as end-stage renal disease. His right arm was prepped and draped. An incision was made on the medial aspect of the distal upper arm and carried down through subcutaneous tissue with electrocautery. The basilic vein was identified and dissected free for several centimeters. The side branches were ligated with 3-0 silk. The brachial artery was identified on the medial aspect of the incision and dissected free for several centimeters as well. The patient was then systemically heparinized and the distal aspect of the basilic vein was clamped with a right-angle clamp. The vein was transected and marked for orientation. The distal end was oversewn with 3-0 silk suture. Once the patient was systemically heparinized, proximal and distal control of the brachial artery was obtained with profunda clamps and a longitudinal arteriotomy was made with a #11 blade and extended with Eric scissors. The vein was mobilized to the artery and sewn end-to-side with running 6-0 Prolene suture. At the completion, it was flushed and was hemostatic. There was a nice thrill in the fistula and a Doppler signal in the wrist. The heparin was reversed with protamine. The wound was infiltrated with Marcaine and closed with 2-0 Polysorb, 3-0 Polysorb and 4-0 Monocryl. The sponge and needle counts were correct at the end of the case. I was present and scrubbed for the entire procedure. MD ESTEBAN Lim/LILIANA /8:10 PM /8:41 PM ADRIEL
--- NOTE | 2017-03-20 22:22 | EKG ---
Date Performed: 03/20/2017 Time Performed: 10:44:11 PTAGE: 62 years EKG: SINUS TACHYCARDIA MARKED LEFT AXIS DEVIATION NONSPECIFIC ST & T-WAVE ABNORMALITY ABNORMAL E CG PREVIOUS TRACING : 05/17/2016 17.03 Compared to the previous tracing rate fater DOCTOR: Manoj Odell Interpretating Date/Time 03/20/2017 22:21:28
== END | disposition home or self-care (01) ==
LOC: HSDC 09:55
PROVIDERS: ATTEND Surgery
DX: I12.0 Hypertensive chronic kidney disease with stage 5 chronic kidney disease or end stage renal disease (principal); N18.6 End stage renal disease; E11.22 Type 2 diabetes mellitus with diabetic chronic kidney disease; I25.2 Old myocardial infarction; E78.5 Hyperlipidemia, unspecified; I63.50 Cerebral infarction due to unspecified occlusion or stenosis of unspecified cerebral artery; Z88.0 Allergy status to penicillin
CPT/HCPCS: 01844; 36821; 80048; 85025; 85610; 86850; 86900; 86901; 93005; J1644; J2720; J3370

== ENCOUNTER 2017-08-06 07:04 | Observation (INO) | payer MEDICAID, OTHER ==
[~2017-08-06] VITALS: Ht 180.3 cm; Wt 97.1 kg
[~2017-08-06 07:04] MED LIST changes: -*LABETALOL HCL 100 MG/20 ML VIAL PERIprocedural Use ONLY ONE; +ASCO500C PEG; -ASCO500C PO; -Aspirin Chew CHEW; -BUPIVACAINE HCL PF 0.5% 30 ML VIAL ONE; -CHLORHEXIDINE GLUCONATE 2 % 1 PACK (2 CLOTHS) TOPICAL PRN; -DIGO0.12 PO; -DO NOT ADM ANY ANTICOAGULANT DRUGS PRN; +FAMO20TA2 PEG; -FAMO20TA2 PO; +FOLI1TAB6 PEG; -HEPA100I8 IV; -HEPARIN SODIUM - IV 10,000 UNITS/10 ML VIAL ONE; -HEPARIN-NS/PF INJ 500 ML ONE; -Hemodialysis Vas Acc Cath PRN Heparin 1000 unit/ml Flush IV FLUSH; -Hemodialysis Vas Access Cath PRN NS Lock Flush IV FLUSH; -IPRASOL INH; -LACTATED RINGER'S 1000 ML IV PRN; -METO50TA G-TUBE; +METO50TA PEG; -METO50TA PO; -METOPROLOL TARTRATE 25 MG TAB PO PRN; +MILKSUS PEG; -NEXI20CA PO; -NOVOLOGP2 SQ; +NU-I150C PEG; -NYST10007 TOPICAL; -NYST100084 TOPICAL; -POVIDONE IODINE 5% (ANTISEPSIS KIT) 4 APPLICATIONS EACH NARE PRN; -PROTAMINE SULFATE 50 MG/5 ML VIAL ONE; +RENATAB6 PEG; -RENATAB6 PO; -SODIUM CHLORID 0.9% 500 ML IV PRN; -THROMBIN (TOPICAL) 20,000 UNIT SPRAY KIT ONE; +TYLE325T PEG; +VANC1000P IV; -VANCOMYCIN HCL 1000 MG VIAL ONE; +ZINC220T PEG; -ZINC220T PO; +ZOFR4TAB PEG
[2017-08-06] MEDS ORDERED: HEPARIN-NS/PF INJ 500 ML ONE (07:30)
[2017-08-06] MEDS ORDERED: PROTAMINE SULFATE 50 MG/5 ML VIAL ONE (07:30)
[2017-08-06] MEDS ORDERED: THROMBIN (TOPICAL) 20,000 UNIT SPRAY KIT ONE (07:30)
[2017-08-06] MEDS ORDERED: VANCOMYCIN HCL 1000 MG VIAL ONE (07:30)
[2017-08-06] MEDS ORDERED: BUPIVACAINE HCL PF 0.5% 30 ML VIAL ONE (07:30)
[2017-08-06] MEDS ORDERED: HEPARIN SODIUM - IV 10,000 UNITS/10 ML VIAL ONE (07:30)
[2017-08-06] MEDS ORDERED: SODIUM CHLORID 0.9% 500 ML IV PRN (07:45)
[2017-08-06] MEDS ORDERED: POVIDONE IODINE 5% (ANTISEPSIS KIT) 4 APPLICATIONS EACH NARE PRN (07:45)
[2017-08-06] MEDS ORDERED: METOPROLOL TARTRATE 25 MG TAB PO PRN (07:45)
[2017-08-06] MEDS ORDERED: CHLORHEXIDINE GLUCONATE 2 % 1 PACK (2 CLOTHS) TOPICAL PRN (07:45)
[2017-08-06] MEDS ORDERED: LACTATED RINGER'S 1000 ML IV PRN (07:45)
[2017-08-06] MEDS ORDERED: Hemodialysis Vas Acc Cath PRN Heparin 1000 unit/ml Flush IV FLUSH (08:30)
[2017-08-06] MEDS ORDERED: Hemodialysis Vas Access Cath PRN NS Lock Flush IV FLUSH (08:30)
[2017-08-06 08:35] LABS: AUTOMATED NEUTROPHIL # 11.2 TH/MM3 (1.8-7.7); BASOPHIL # 0.1 TH/MM3 (0-0.2); BASOPHIL % 0.5 % (0.0-2.0); EOSINOPHIL % 0.1 % (0.0-4.0); HEMATOCRIT 24.1 % (39.0-51.0); HEMOGLOBIN 7.4 GM/DL (13.0-17.0); LYMPH % 10.8 % (9.0-44.0); LYMPHOCYTE # 1.5 TH/MM3 (1.0-4.8); MEAN CORPUSCULAR HEMOGLOBIN 23.8 PG (27.0-34.0); MEAN CORPUSCULAR HGB CONC 30.9 % (32.0-36.0); MEAN PLATELET VOLUME 7.1 FL (7.0-11.0); MONO % 6.1 % (0.0-8.0); MONOCYTE # 0.8 TH/MM3 (0-0.9); NEUT % 82.5 % (16.0-70.0); PLATELET COUNT 631 TH/MM3 (150-450); RED BLOOD COUNT 3.13 MIL/MM3 (4.50-5.90); WHITE BLOOD COUNT 13.6 TH/MM3 (4.0-11.0)
[2017-08-06 08:41] LABS: INTERNATIONAL NORMALIZED RATIO 1.2 RATIO; PROTHROMBIN TIME - PATIENT 12.3 SEC (9.8-11.6)
--- NOTE | 2017-08-06 08:54 | HHI.HP ---
History of Present Illness Chief Complaint: ESRD, need for HD access History of Present Illness 62 yo male with ESRD on HD. Has massive CVA history and history and update obtained from . Pt went home from assisted last week,. Past/Family/Social History Past Medical History CVA ESRD DM CAD with [place] HTN XOL Past Surgical History R UE AVF Social History N/A Family History N/A Home Medications Reported Medications Ondansetron (Zofran) 4 Mg Tab, 4 MG PEG Q4HR Y for NAUSEA OR VOMITING, TAB 0 Refills 08/03/17 Vancomycin Inj (Vancomycin Inj) 1 Gram Inj, 1000 MG IV MO,WE,FR for Infection, BAG 0 Refills BY DIALYSIS NURSE 08/03/17 Acetaminophen (Tylenol) 325 Mg Tab, 325 MG PEG Q6H Y for PAIN, TAB 0 Refills 08/03/17 Polysaccharide Iron Complex (Nu-Iron 150) 150 Mg Iron Cap, 150 MG PEG Q12HR for Nutritional Supplement, #60 CAP 0 Refills 08/03/17 Magnesium Hydroxide Liq (Milk of Magnesia Liq) 400 Mg/5 Ml Susp, 30 ML PEG DAILY Y for INDIGESTION OR UPSET STOMACH, #1 BOTTLE 0 Refills 08/03/17 Metoprolol Tartrate (Metoprolol Tartrate) 50 Mg Tab, 50 MG PEG BID for Blood Pressure Management, #60 TAB 0 Refills ONLY SUN, TU, [place]OR[place], AND SAT 08/03/17 Folic Acid (Folic Acid) 1 Mg Tablet, 1 TAB PEG DAILY 08/03/17 Famotidine (Famotidine) 20 Mg Tab, 20 MG PEG DAILY, #60 TAB 0 Refills 08/03/17 Insulin Lispro (Human) Inj (Humalog Inj) 1,000 Unit/10 Ml Vial, 2-12 UNITS SQ ACHS for Blood Sugar Management, #1 VIAL 0 Refills Max dose at bedtime:( )units; sugars < 70,(0)units; sugars 150-199,(2)units; sugars 200-249,(4)units; sugars 250-299,(7)units; sugars 300-349,(10)units; sugars more than 349,(12)units. 03/20/17 Amino Acids-Protein Hydrolysat (Pro-Stat) 15 Gram-100 Kcal/30 Ml Liq, 60 ML G- TUBE BID 03/20/17 Insulin Detemir Inj (Levemir Inj) 1,000 unit/ 10 ML Vial, 10 UNITS SQ Q12HR for Blood Sugar Management, VIAL 0 Refills Do not mix with any other Insulin. 03/20/17 Zinc Sulfate (Zinc Sulfate) 220 Mg Tab, 220 MG PEG DAILY for Nutritional Supplement, TAB 0 Refills 03/20/17 Ascorbic Acid (Vitamin C) 500 Mg Capsule, 500 MG PEG DAILY 03/20/17 B-Complex W/ C & Folic Acid (Era-Boni Rx) 1 Tab, 1 TAB PEG DAILY for Nutritional Supplement, #30 TAB 0 Refills 03/20/17 Discontinued Reported Medications Nystatin Topical (Nystatin Topical) 100,000 unit/gm Oint, 1 APPLIC TOPICAL Q12HR for Infection, #15 GM 0 Refills 03/20/17 Metoprolol Tartrate (Metoprolol Tartrate) 50 Mg Tab, 50 MG G-TUBE BID, #60 TAB 0 Refills 03/20/17 Heparin Sodium (Porcine) Lock Flush (Heparin Lock Flush For Flush) 500 Unit/5 Ml (100 Unit/Ml) Inj, 5000 UNITS IV BID for Line Flush, INJECTION 0 Refills 03/20/17 Digoxin (Digoxin) 0.125 Mg Tab, 0.125 MG PO DAILY for Regulate Heart Beat, #30 TAB 0 Refills 03/20/17 Famotidine (Famotidine) 20 Mg Tab, 20 MG PO BID, #60 TAB 0 Refills 10/09/16 Coded Allergies: penicillin G (Unverified Allergy, Mild, "I GO CRAZY", 11/28/16) Review of Systems ROS Limitations: Altered Mental Status Physical Exam Vitals/I&O Date Time Temp Pulse Resp B/P (MAP) Pulse Ox O2 Delivery O2 Flow Rate FiO2 08/06/17 08:02 99.5 116 20 143/94 (110) 99 Neuro: somnolent, no apparent distress HEENT: anicteric Neck: no JVD Heart: reg rate, no M Lungs: clear B Vascular: R UE AVF with + thrill Extremities: R UE contracted but no rashes Laboratory Tests Test 08/06/17 08:15 White Blood Count 13.6 Red Blood Count 3.13 Hemoglobin 7.4 Hematocrit 24.1 Mean Corpuscular Volume 77.0 Mean Corpuscular Hemoglobin 23.8 Mean Corpuscular Hemoglobin Concent 30.9 Red Cell Distribution Width 19.0 Platelet Count 631 Mean Platelet Volume 7.1 Neutrophils (%) (Auto) 82.5 Lymphocytes (%) (Auto) 10.8 Monocytes (%) (Auto) 6.1 Eosinophils (%) (Auto) 0.1 Basophils (%) (Auto) 0.5 Neutrophils # (Auto) 11.2 Lymphocytes # (Auto) 1.5 Monocytes # (Auto) 0.8 Eosinophils # (Auto) 0.0 Basophils # (Auto) 0.1 CBC Comment DIFF FINAL Differential Comment Prothrombin Time 12.3 Prothromb Time International Ratio 1.2 duplex reviewed - no stenosis Caprini VTE Risk Assessment Caprini VTE Risk Assessment: No/Low Risk (score <= 1) Caprini Risk Assessment Model Point Value = 1 Point Value = 2 Point Value = 3 Point Value = 5 Age 41-60 Minor surgery BMI > 25 kg/m2 Swollen legs Varicose veins or History of unexplained or recurrent spontaneous Oral contraceptives or hormone replacement Sepsis (< 1 month) Serious lung disease, including pneumonia (< 1 month) Abnormal pulmonary function Acute myocardial infarction Congestive heart failure (< 1 month) History of inflammatory bowel disease Medical patient at bed rest Age 61-74 Arthroscopic surgery Major open surgery (> 45 min) Laparoscopic surgery (> 45 min) Malignancy Confined to bed (> 72 hours) Immobilizing plaster cast Central venous access Age >= 75 History of VTE Family history of VTE Factor V Leiden Prothrombin [id number] Lupus anticoagulant Anticardiolipin antibodies Elevated serum homocysteine Heparin-induced thrombocytopenia Other congenital or acquired thrombophilia Stroke (< 1 month) Elective arthroplasty Hip, pelvis, or leg fracture Acute spinal cord injury (< 1 month) Prophylaxis Regimen Total Risk Factor Score Risk Level Prophylaxis Regimen 0-1 Low Early ambulation 2 Moderate Order ONE of the following: *Sequential Compression Device (SCD) *Heparin 5000 units SQ BID 3-4 Higher Order ONE of the following medications: *Heparin 5000 units SQ TID *Enoxaparin/Lovenox 40 mg SQ daily (WT < 150 kg, CrCl > 30 mL/min) *Enoxaparin/Lovenox 30 mg SQ daily (WT < 150 kg, CrCl > 10-29 mL/min) *Enoxaparin/Lovenox 30 mg SQ BID (WT < 150 kg, CrCl > 30 mL/min) AND/OR *Sequential Compression Device (SCD) 5 or more Highest Order ONE of the following medications: *Heparin 5000 units SQ TID (Preferred with Epidurals) *Enoxaparin/Lovenox 40 mg SQ daily (WT < 150 kg, CrCl > 30 mL/min) *Enoxaparin/Lovenox 30 mg SQ daily (WT < 150 kg, CrCl > 10-29 mL/min) *Enoxaparin/Lovenox 30 mg SQ BID (WT < 150 kg, CrCl > 30 mL/min) AND *Sequential Compression Device (SCD) Assessment and Plan Plan R UE Access revision discussed with who agrees to plan Discharge Planning POA for observation [phone] Yifan Porter MD Aug 06, 2017 08:54
[2017-08-06 08:58] LABS: BICARBONATE 30.1 MEQ/L (21.0-32.0); CALCIUM 8.8 MG/DL (8.5-10.1); CREATININE 3.75 MG/DL (0.60-1.30)
[2017-08-06] MEDS ORDERED: POTASSIUM CHLOR 20 MEQ PREMIX 100 ML ONE (09:26)
--- NOTE | 2017-08-06 10:59 | HHI.PR ---
cc: Yifan Porter MD Immediate Post Op Note Procedure Date: Aug 06, 2017 Pre Op Diagnosis: ESRD, need for HD access; s/p 1st stage RUE brachiobasilic AVF Post Op Diagnosis: ESRD, need for HD access; s/p 1st stage RUE brachiobasilic AVF Surgeon: Yifan Porter Hydrogen Treater(s): Yifan Mercado Procedure: R UE access revision (transposition and interposition with 6mm PTFE) Findings: 9-10mm basilic vein transposed to anterior upper arm with PTFE Complications: none Specimen(s) removed: none Estimated blood loss: 50mL Anesthesia: General Drains: None Fluids: 750mL IVF Patient to: PACU Patient Condition: Good Implant/Devices: SEE IMPLANT LOG (if applicable) Date/Time of Procedure: SEE SURGICAL CARE RECORD Yifan Porter MD Aug 06, 2017 10:59
[2017-08-06] MEDS ORDERED: MAGNESIUM HYDROXIDE SUSP 30 ML CUP PO PRN (11:00)
[2017-08-06] MEDS ORDERED: ONDANSETRON ODT 4 MG TAB PRN (11:00)
[2017-08-06] MEDS ORDERED: SENNOSIDES 8.6 MG TAB PO PRN (11:00)
[2017-08-06] MEDS ORDERED: BISACODYL 10 MG SUPP RECTAL PRN (11:00)
[2017-08-06] MEDS ORDERED: LACTULOSE SYRUP 20 GM/30 ML CUP PO PRN (11:00)
[2017-08-06] MEDS ORDERED: MAGNESIUM HYDROXIDE SUSP 30 ML CUP PEG PRN (11:00)
[2017-08-06] MEDS ORDERED: MORPHINE SULFATE 4 MG/ML INJ IV PUSH PRN (11:00)
[2017-08-06] MEDS ORDERED: ACETAMINOPHEN 325 MG TAB PEG PRN (11:00)
[2017-08-06] MEDS ORDERED: DEXTROSE 50% IN WATER 50 ML VIAL(D50) IV PUSH PRN (11:15)
[2017-08-06] MEDS ORDERED: GLUCAGON 1 MG/ML VIAL OTHER PRN (11:15)
[2017-08-06] MEDS ORDERED: DO NOT ADM ANY ANTICOAGULANT DRUGS PRN (11:51)
[2017-08-06] MEDS ORDERED: *RESP: ALBUTEROL 2.5 MG/3 ML NEB (PRN) PERIprocedural Use ONLY NEB ONE (11:55)
[2017-08-06] MEDS ORDERED: LIDOCAINE HCL 1% PF 5 ML SYRINGE OTHER ONE (12:00)
[2017-08-06] MEDS ORDERED: GLYCOPYRROLATE 1 MG/5 ML SYRINGE IV PUSH ONE (12:00)
[2017-08-06] MEDS ORDERED: PROPOFOL 200 MG/20 ML AMP IV ONE (12:00)
[2017-08-06] MEDS ORDERED: SODIUM CHLORID 0.9% 500 ML INJ 500 ML IV ONE (12:00)
[2017-08-06] MEDS ORDERED: SODIUM CHLOR 0.9% 250 ML INJ 250 ML IV ONE ×2 (12:00→14:00)
[2017-08-06] MEDS ORDERED: SODIUM CHLORIDE 0.9% 10 ML VIAL IV FLUSH ONE (12:00)
[2017-08-06] MEDS ORDERED: PHENYLEPH/NS 1000 MCG/10 ML SYR IV ONE (12:00)
[2017-08-06] MEDS ORDERED: STERILE WATER FOR INJECTION 20 ML VIAL IV ONE (12:00)
[2017-08-06] MEDS ORDERED: PHENYLEPHRINE HCL 10 MG/ML VIAL IV ONE (12:00)
[2017-08-06] MEDS ORDERED: ONDANSETRON HCL 4 MG/2 ML VIAL IV ONE (12:00)
[2017-08-06] MEDS ORDERED: ROCURONIUM INJ 50 MG/5 ML SYRINGE IV PUSH ONE (12:00)
[2017-08-06] MEDS ORDERED: NEOSTIGMINE 5 MG/5 ML SYRINGE IV PUSH ONE (12:00)
[2017-08-06] MEDS: INSULIN ASPART SUPPLEMENTAL SCALE SQ SCH ×3 (12:05→21:00)
--- NOTE | 2017-08-06 12:19 | MP ---
cc: Yifan Porter MD DATE OF OPERATION: 08/06/2017 PREOPERATIVE DIAGNOSIS: End-stage renal disease, needs dialysis access. POSTOPERATIVE DIAGNOSIS: End-stage renal disease, needs dialysis access. PROCEDURE PERFORMED: Right upper extremity arteriovenous access revision (transposition and interposition). ATTENDING SURGEON: Yifan Porter MD SENIOR SUPPLIER QUALITY ENGINEER SURGEON: Dr. Yifan Mercado. ANESTHESIA: General. INDICATIONS FOR PROCEDURE: Mr. Short is a 62-year-old gentleman with end-stage renal disease who underwent a right brachiobasilic first stage fistula several months ago. This has matured ultrasonographically and he is brought to the operating room for a transposition. Because of his contracted arm from a previous stroke an interposition was also performed. DESCRIPTION OF PROCEDURE: Informed consent was obtained from the patient's as the patient is noncommunicative. He was taken to the operating room and placed supine on the operating table. An appropriate timeout was taken to ensure the patient's identity, operative site and planned procedure. The administration 1 gram of vancomycin was initiated prior to the skin incision and will be discontinued after a single preoperative dose. Vancomycin was chosen because of the patient's end-stage renal disease. Everyone in the room agreed upon the timeout and we proceeded. His right arm was prepped and draped and a medial incision was made in the patient's upper arm, carried down through subcutaneous tissue with electrocautery. The basilic vein was identified and dissected free for its entirety. Side branches were ligated with 3-0 silk. The vein was noted to be approximately 9-10 mm in diameter and had an excellent thrill. The vein was transected distally after being clamped with a right angle and the vein was oversewn with 5-0 Prolene suture and two large Hemoclips. The proximal limb was clamped with a King Bulldog and a 6 mm PTFE was brought up on the field, spatulated and sewn end-to-end to the basilic vein with running 5-0 Prolene suture. This was then tunneled in the anterior portion of the upper arm and looped back to the brachial artery. The brachial artery had been dissected free for several centimeters. The patient was systemically heparinized with 3000 units of IV heparin. Proximal and distal control of the brachial artery was obtained with profunda clamps and a longitudinal arteriotomy was made with an 11 blade, extended with Austin scissors. The PTFE was cut to the appropriate length, spatulated and sewn end-to-side to the brachial artery with running 5-0 Prolene suture. At the completion, it was flushed and noted to be hemostatic. There was a Doppler signal in the wrist. The heparin was reversed with protamine. There was a great thrill in the fistula. The wound was irrigated, infiltrated with Marcaine and closed with 2-0 Polysorb, 3-0 Polysorb and 4-0 Monocryl. The sponge and needle counts were correct at the end of the case. I was present and scrubbed and performed the entire procedure. Yifan Porter MD RJF/NIRAJ , 11:49 AM , 12:18 PM
[2017-08-06 13:30] VITALS: BP 120/57; PULSE 97; RESP 18; TEMP 98; O2SAT 100
[2017-08-06 14:02] LABS: BICARBONATE 28.3 MEQ/L (21.0-32.0); CALCIUM 8.6 MG/DL (8.5-10.1); CREATININE 3.8 MG/DL (0.60-1.30)
[2017-08-06] MEDS ORDERED: SODIUM CHLOR 0.9% 1000 ML INJ 1,000 ML IV PRN (18:31)
[2017-08-06] MEDS ORDERED: SODIUM CHLOR 0.9% 1000 ML INJ 1,000 ML OTHER PRN ×2 (18:31)
[2017-08-06] MEDS ORDERED: EPOETIN ALFA 10,000 UNITS/ML VIAL IV PUSH PRN (18:45)
[2017-08-06] MEDS ORDERED: GENTAMICIN SULFATE 20 MG/2 ML VIAL OTHER PRN (18:45)
[2017-08-06] MEDS ORDERED: MANNITOL 12.5 GM/50 ML VIAL IV PRN (18:45)
[2017-08-06] MEDS ORDERED: GELATIN 12 MM/7 MM FOAM TOP PRN (18:45)
[2017-08-06] MEDS ORDERED: ONDANSETRON HCL 4 MG/2 ML VIAL IV PUSH PRN (18:45)
[2017-08-06] MEDS ORDERED: cloNIDine HCL 0.1 MG TAB PO PRN (18:45)
[2017-08-06] MEDS ORDERED: ACETAMINOPHEN 325 MG TAB PO PRN (18:45)
[2017-08-06] MEDS ORDERED: NITROGLYCERIN 0.4 MG SL 25 TABS/BTL SL PRN (18:45)
[2017-08-06] MEDS ORDERED: HEPARIN SODIUM - IV 10,000 UNITS/10 ML VIAL IV FLUSH PRN (18:45)
[2017-08-06] MEDS ORDERED: ALBUMIN 25% INJ 100 ML IV PRN (18:45)
[2017-08-06] MEDS ORDERED: SODIUM CHLORIDE 0.9% FLUSH 10 ML FLUSH IV FLUSH PRN (18:45)
[2017-08-06] MEDS ORDERED: HEPARIN SODIUM - IV 10,000 UNITS/10 ML VIAL PRN (18:45)
[2017-08-06] MEDS ORDERED: diphenhydrAMINE HCL 25 MG CAP PO PRN (18:45)
[2017-08-06 20:00] VITALS: BP 108/58; PULSE 97; RESP 19; TEMP 97.9; O2SAT 100
--- NOTE | 2017-08-06 20:17 | MB ---
cc: Darrel Bhat MD DATE: 08/06/2017 REASON FOR CONSULTATION: End-stage renal disease, on hemodialysis for management. HISTORY OF PRESENT ILLNESS: This is a 62-year-old male with a past medical history of hypertension, cerebrovascular accident, diabetes mellitus, ischemic heart disease, chronic anemia, end-stage renal disease, on hemodialysis, who was admitted for AV fistula creation. I was called to see the patient for the management of dialysis. The patient has been on hemodialysis Sunday, Sunday, Sunday, but he was [facility] from the [facility] last week and was sent home. He did not have any hemodialysis units here set up close by, so he was taken back to his own dialysis unit on Sunday instead of Sunday. The patient is not able to give any history. Most of the history was taken from the patient's . The patient was seen by me in the recovery room. According to the , the patient was in a fci in [place] for 8-9 months, since September of last year, and recently was discharged home, and she is in the process of getting the outpatient dialysis set up here locally. The patient has been following with Dr. Porter and was admitted for right arm AV fistula creation. Patient is mainly nonverbal. He is bedridden and not able to communicate much. He had an AV fistula done before and now just has the transposition done by Dr. Porter. PAST MEDICAL HISTORY: Hypertension, cerebrovascular accident, ischemic heart disease, chronic anemia, end-stage renal disease, on hemodialysis 3 times per week. PAST SURGICAL HISTORY: AV fistula surgery done. REVIEW OF SYSTEMS: Cannot be taken since the patient is mainly nonverbal. SOCIAL HISTORY: The patient is . Mainly bedridden now. No smoking or alcoholism. FAMILY HISTORY: Noncontributory. ALLERGIES: HE IS ALLERGIC TO PENICILLIN. MEDICATIONS: Currently, he is on following medications: Gianna-Colace 1 tablet b.i.d., metoprolol 50 mg b.i.d. through the PEG, famotidine 20 mg daily, folic acid 1 mg daily, zinc sulfate 220 mg daily, ascorbic acid 500 mg daily, insulin detemir 10 units q. 12 hours, Nu-Iron 150 mg q. 12 hours, heparin 5000 units q. 8 hours. insulin as per sliding scale. PHYSICAL EXAMINATION: GENERAL: The patient is nonverbal, has his eyes closed, not in acute distress, responding minimally to some extent. VITAL SIGNS: His last blood pressure recorded is 116/58. He had some hypotensive episode earlier, but slightly better now. Temperature is 97.6, oxygen saturation on 4 liter nasal cannula is 100%. HEENT: Pupils are mid constricted. Nonicteric sclerae. Conjunctivae pale. NECK: Supple. JVD is not elevated. LUNGS: The patient has bilateral decreased air entry with occasional wheezing. HEART: S1, S2. Regular rhythm. ABDOMEN: Soft. PEG in place. EXTREMITIES: He has a contracted upper extremities and mild edema in the lower extremities. The right upper arm, on the medial side, has a slight edema and a positive bruit. INVESTIGATIONS: WBC count is 13.6, hemoglobin 7.4, platelet count of 631. Sodium 139, potassium 3.3, chloride 99, bicarbonate 28.3, BUN 40 and creatinine 3.8. INR 1.2. There is no recent imaging study done. ASSESSMENT AND PLAN: 1. End-stage renal disease, on hemodialysis. 2. Post superficial addition of arteriovenous fistula surgery. 3. Chronic anemia. 4. Hypertension. 5. Cerebrovascular accident and bedridden status. The patient is on hemodialysis Sunday, Sunday and Sunday, but he had his last hemodialysis treatment on Sunday. There is no acute urgent need for dialysis today. We will dialyze him tomorrow. Epogen with dialysis. Possibly, he will be discharged tomorrow. According to the , outpatient hemodialysis has to be set up still. Otherwise, he can go back to his previous center in [place] where he was dialyzed last week. Thank you for the consultation, and I will follow the patient while he is in the hospital. MD SUJATA Jon/NIRAJ , 06:31 PM , 08:16 PM
[2017-08-06 20:26] VITALS: O2SAT 99
[2017-08-06] MEDS ORDERED: AMINO ACIDS PROTEIN HYDROLYSAT G-TUBE SCH (21:00)
[2017-08-06] MEDS: DOCUSATE SODIUM 50 MG/SENNA 8.6 MG TAB PO SCH (21:00)
[2017-08-06] MEDS: INSULIN DETEMIR 100 UNITS/ML VIAL SQ SCH (21:00)
[2017-08-06] MEDS: POLYSACCHARIDE IRON COMPLEX 150 MG CAP PEG SCH (22:26)
[2017-08-06] MEDS: METOPROLOL TARTRATE 50 MG TAB PEG SCH (22:27)
[2017-08-06] MEDS: HEPARIN SODIUM - SQ 10,000 UNITS/ML VIAL SQ SCH (22:29)
[2017-08-07] VITALS: BP 110/53; PULSE 93; RESP 19; TEMP 97.5; O2SAT 100
[2017-08-07 01:23] VITALS: PULSE 100
[2017-08-07] MEDS: HEPARIN SODIUM - SQ 10,000 UNITS/ML VIAL SQ SCH ×2 (03:00→11:00)
[2017-08-07 04:00] VITALS: BP 105/56; PULSE 94; RESP 19; TEMP 97.1; O2SAT 100
[2017-08-07 04:58] LABS: HEMATOCRIT 22.7 % (39.0-51.0); HEMOGLOBIN 7.1 GM/DL (13.0-17.0); MEAN CELL VOLUME 78.1 FL (80.0-100.0); MEAN CORPUSCULAR HEMOGLOBIN 24.6 PG (27.0-34.0); MEAN CORPUSCULAR HGB CONC 31.5 % (32.0-36.0); MEAN PLATELET VOLUME 7.1 FL (7.0-11.0); PLATELET COUNT 562 TH/MM3 (150-450); RED CELL DISTRIBUTION WIDTH 18.5 % (11.6-17.2); WHITE BLOOD COUNT 10.4 TH/MM3 (4.0-11.0)
[2017-08-07 05:13] LABS: CALCIUM 8.8 MG/DL (8.5-10.1); CREATININE 4.42 MG/DL (0.60-1.30)
[2017-08-07 08:00] VITALS: BP 137/67; PULSE 103; RESP 19; TEMP 98.7; O2SAT 98
[2017-08-07] MEDS: INSULIN ASPART SUPPLEMENTAL SCALE SQ SCH ×2 (08:00→12:00)
[2017-08-07] MEDS: INSULIN DETEMIR 100 UNITS/ML VIAL SQ SCH (08:11)
--- NOTE | 2017-08-07 08:37 | PD.VS.PN ---
Subjective POD #: 1 Procedure(s): R UE access revision (transposition and interposition with 6mm PTFE) Subjective/Hospital Course Afebrile 62/M with a PMH of ESRD on HD Pt S/P R UE access revision POD 1 Pt does not appear in pain UE warm R UE incision intact w/ palpable thrill near AVF Objective Vitals/I&O Date Time Temp Pulse Resp B/P (MAP) Pulse Ox O2 Delivery O2 Flow Rate FiO2 08/07/17 04:00 97.1 94 19 105/56 (72) 100 08/07/17 01:23 100 08/07/17 00:00 97.5 93 19 110/53 (72) 100 08/06/17 20:26 99 21 08/06/17 20:00 97.9 97 19 108/58 (75) 100 08/06/17 14:30 92 18 116/58 (77) 100 Nasal Cannula 2 08/06/17 14:15 97.6 98 16 112/62 (79) 100 Nasal Cannula 2 08/06/17 14:00 97 16 94/58 (70) 100 Nasal Cannula 2 08/06/17 13:45 96 16 82/52 (62) 100 Nasal Cannula 2 08/06/17 13:30 98.0 97 18 120/57 (78) 100 08/06/17 13:30 98 15 80/45 (57) 100 Nasal Cannula 2 08/06/17 13:15 99 14 83/47 (59) 100 Nasal Cannula 2 08/06/17 13:00 102 14 113/59 (77) 100 Nasal Cannula 2 08/06/17 12:50 101 18 94/43 (60) 100 Nasal Cannula 2 08/06/17 12:45 102 16 80/41 (54) 100 Nasal Cannula 2 08/06/17 12:30 110 20 140/79 (99) 97 Nasal Cannula 2 08/06/17 12:15 105 24 106/72 (83) 100 Aerosol Mask 8 08/06/17 12:00 97 20 100/60 (73) 99 Aerosol Mask 8 08/06/17 11:45 97.8 97 14 126/68 (87) 92 Simple Mask 6 08/07/17 08/07/17 08/07/17 07:00 15:00 23:00 Intake Total 0 ml Balance 0 ml Exam: GENERAL: Pt alert non verbal with UE contracted/ Does not appear in any distress SKIN: Warm and dry Incision to R UE intact with surgical glue closure/ No R/D/S/O CARDIOVASCULAR: + S1,S2 RESPIRATORY: BS CTA GASTROINTESTINAL: Abdomen soft, non-tender, nondistended. peg tube in place + thrill palpated near R UE AVF Laboratory Laboratory Tests Test 08/06/17 13:15 08/07/17 03:26 Blood Urea Nitrogen 49 55 Creatinine 3.80 4.42 Random Glucose 138 109 Calcium Level 8.6 8.8 Sodium Level 139 137 Potassium Level 3.3 3.5 Chloride Level 99 98 Carbon Dioxide Level 28.3 30.0 Anion Gap 12 9 Estimat Glomerular Filtration Rate 20 17 White Blood Count 10.4 Red Blood Count 2.90 Hemoglobin 7.1 Hematocrit 22.7 Mean Corpuscular Volume 78.1 Mean Corpuscular Hemoglobin 24.6 Mean Corpuscular Hemoglobin Concent 31.5 Red Cell Distribution Width 18.5 Platelet Count 562 Mean Platelet Volume 7.1 Hepatitis A IgM Antibody NONREACTIVE Hepatitis B Surface Antigen NONREACTIVE Hepatitis B Core IgM Antibody NONREACTIVE Hepatitis C IgG Antibody NONREACTIVE Assessment and Plan Assessment: (1) AVF (arteriovenous fistula) (2) ESRD (end stage renal disease) on dialysis Plan 62/M S/P R UE Access revision Pt doing well Does not appear in any discomfort or distress UE warm and dry + thrill palpated Plan Pt clear for d/c from a vascular standpoint after HD Arranged out pt f/u Lianna Marks [facility]/Tomo Clases [phone] Discharge Planning POA for observation [phone] Lianna Marks [facility] Aug 07, 2017 08:37
[2017-08-07] MEDS: POLYSACCHARIDE IRON COMPLEX 150 MG CAP PEG SCH (08:43)
[2017-08-07] MEDS: METOPROLOL TARTRATE 50 MG TAB PEG SCH (08:43)
[2017-08-07] MEDS: DOCUSATE SODIUM 50 MG/SENNA 8.6 MG TAB PO SCH (08:43)
--- NOTE | 2017-08-07 08:50 | PD.VS.DC ---
Discharge Summary Admission Date: Aug 06, 2017 at 11:02 Discharge Date: Aug 07, 2017 Admission Diagnosis: (1) AVF (arteriovenous fistula) (2) ESRD (end stage renal disease) on dialysis Discharge Diagnosis: (1) AVF (arteriovenous fistula) ICD Codes: I77.0 - Arteriovenous fistula, acquired (2) ESRD (end stage renal disease) on dialysis ICD Codes: N18.6 - End stage renal disease; Z99.2 - Dependence on renal dialysis Brief History from admission 62 yo male with ESRD on HD. Has massive CVA history and history and update obtained from . Pt went home from group home last week,. Procedure(s): R UE access revision (transposition and interposition with 6mm PTFE) Significant Findings GENERAL: Pt alert non verbal with UE contracted/ Does not appear in any distress SKIN: Warm and dry Incision to R UE intact with surgical glue closure/ No R/D/S/O CARDIOVASCULAR: + S1,S2 RESPIRATORY: BS CTA GASTROINTESTINAL: Abdomen soft, non-tender, nondistended. peg tube in place + thrill palpated near R UE AVF Laboratory Tests Test 08/06/17 08:15 08/06/17 13:15 08/07/17 03:26 White Blood Count 13.6 TH/MM3 (4.0-11.0) Red Blood Count 3.13 MIL/MM3 (4.50-5.90) 2.90 MIL/MM3 (4.50-5.90) Hemoglobin 7.4 GM/DL (13.0-17.0) 7.1 GM/DL (13.0-17.0) Hematocrit 24.1 % (39.0-51.0) 22.7 % (39.0-51.0) Mean Corpuscular Volume 77.0 FL (80.0-100.0) 78.1 FL (80.0-100.0) Mean Corpuscular Hemoglobin 23.8 PG (27.0-34.0) 24.6 PG (27.0-34.0) Mean Corpuscular Hemoglobin Concent 30.9 % (32.0-36.0) 31.5 % (32.0-36.0) Red Cell Distribution Width 19.0 % (11.6-17.2) 18.5 % (11.6-17.2) Platelet Count 631 TH/MM3 (150-450) 562 TH/MM3 (150-450) Neutrophils (%) (Auto) 82.5 % (16.0-70.0) Neutrophils # (Auto) 11.2 TH/MM3 (1.8-7.7) Prothrombin Time 12.3 SEC (9.8-11.6) Blood Urea Nitrogen 48 MG/DL (7-18) 49 MG/DL (7-18) 55 MG/DL (7-18) Creatinine 3.75 MG/DL (0.60-1.30) 3.80 MG/DL (0.60-1.30) 4.42 MG/DL (0.60-1.30) Random Glucose 137 MG/DL (74-106) 138 MG/DL (74-106) 109 MG/DL (74-106) Potassium Level 2.9 MEQ/L (3.5-5.1) 3.3 MEQ/L (3.5-5.1) Chloride Level 96 MEQ/L (98-107) Estimat Glomerular Filtration Rate 20 ML/MIN (>89) 20 ML/MIN (>89) 17 ML/MIN (>89) Hospital Course: 62 yo male with ESRD on HD. Pt with a PMH of a CVA and ESRD on HD Pt in need for HD access; s/p 1st stage RUE brachiobasilic AVF POD 1 S/P R UE access revision (transposition and interposition with 6mm PTFE) Afebrile 62/M with a PMH of ESRD on HD Pt does not appear in pain UE warm R UE incision intact w/ palpable thrill near AVF Pt clear for D/C post HD Arrange out pt f/u in 2W Called spouse to discuss post operative care and management (LVM) Allergies Coded Allergies Type Severity Reaction Last Updated Verified penicillin G Allergy Mild "I GO CRAZY" 11/28/16 No 08/05/17 08/05/17 08/06/17 08/06/17 08/07/17 08/07/17 06:00 18:00 06:00 18:00 06:00 18:00 Intake Total 750 ml 0 ml Output Total 50 ml Balance 700 ml 0 ml Intake Oral 0 ml Other 750 ml Estimated Blood Loss 50 ml # Voids 0 # Bowel Movements 0 0 Laboratory Tests Test 08/06/17 08:15 08/06/17 13:15 08/07/17 03:26 White Blood Count 13.6 TH/MM3 10.4 TH/MM3 Red Blood Count 3.13 MIL/MM3 2.90 MIL/MM3 Hemoglobin 7.4 GM/DL 7.1 GM/DL Hematocrit 24.1 % 22.7 % Mean Corpuscular Volume 77.0 FL 78.1 FL Mean Corpuscular Hemoglobin 23.8 PG 24.6 PG Mean Corpuscular Hemoglobin Concent 30.9 % 31.5 % Red Cell Distribution Width 19.0 % 18.5 % Platelet Count 631 TH/MM3 562 TH/MM3 Mean Platelet Volume 7.1 FL 7.1 FL Neutrophils (%) (Auto) 82.5 % Lymphocytes (%) (Auto) 10.8 % Monocytes (%) (Auto) 6.1 % Eosinophils (%) (Auto) 0.1 % Basophils (%) (Auto) 0.5 % Neutrophils # (Auto) 11.2 TH/MM3 Lymphocytes # (Auto) 1.5 TH/MM3 Monocytes # (Auto) 0.8 TH/MM3 Eosinophils # (Auto) 0.0 TH/MM3 Basophils # (Auto) 0.1 TH/MM3 CBC Comment DIFF FINAL Differential Comment Prothrombin Time 12.3 SEC Prothromb Time International Ratio 1.2 RATIO Blood Urea Nitrogen 48 MG/DL 49 MG/DL 55 MG/DL Creatinine 3.75 MG/DL 3.80 MG/DL 4.42 MG/DL Random Glucose 137 MG/DL 138 MG/DL 109 MG/DL Calcium Level 8.8 MG/DL 8.6 MG/DL 8.8 MG/DL Sodium Level 138 MEQ/L 139 MEQ/L 137 MEQ/L Potassium Level 2.9 MEQ/L 3.3 MEQ/L 3.5 MEQ/L Chloride Level 96 MEQ/L 99 MEQ/L 98 MEQ/L Carbon Dioxide Level 30.1 MEQ/L 28.3 MEQ/L 30.0 MEQ/L Anion Gap 12 MEQ/L 12 MEQ/L 9 MEQ/L Estimat Glomerular Filtration Rate 20 ML/MIN 20 ML/MIN 17 ML/MIN Hepatitis A IgM Antibody NONREACTIVE Hepatitis B Surface Antigen NONREACTIVE Hepatitis B Core IgM Antibody NONREACTIVE Hepatitis C IgG Antibody NONREACTIVE Orders Procedure Category Date Status Time Basic Metabolic Panel LAB 08/06/17 Complete (Bmp) 07:16 Complete Blood Count LAB 08/06/17 Complete With Diff 07:16 Prothrombin Time / LAB 08/06/17 Complete Inr (Pt) 07:16 Type And Screen BBK 08/06/17 Complete 07:16 Protamine Sulfate Inj MED 08/06/17 Complete (Protamine Sulfate 07:30 Heparin Inj (Heparin MED 08/06/17 Complete Inj) 07:30 Vancomycin Inj MED 08/06/17 Complete (Vancomycin Inj) 07:30 Thrombin Top [place] MED 08/06/17 Complete (Thrombin Top [place]) 07:30 Heparin-Ns/Pf Inj MED 08/06/17 Complete (Heparin-Ns/Pf Inj) 07:30 Bupivacaine Pf 0.5% MED 08/06/17 Complete Inj (Marcaine Pf 0.5 07:30 Lactated Ringer's MED 08/06/17 In Process 1000 Ml Inj (Lr 1000 M 07:45 Sodium Chlorid 0.9% MED 08/06/17 In Process 500 Ml Inj (Ns 500 M 07:45 Metoprolol Tartrate MED 08/06/17 In Process (Lopressor) 07:45 Povidone Iod 5% MED 08/06/17 In Process Antisepsis Kit 07:45 Chlorhexidine 2% MED 08/06/17 In Process Cloth (Chlorhexidine 07:45 Sodium Chloride 0.9% MED 08/06/17 In Process Flush (Ns Flush) 08:30 Heparin Inj (Heparin MED 08/06/17 In Process Inj) 08:30 Potassium Chlor 20 MED 08/06/17 Complete Meq Premix (Kcl 20 Me 09:26 Place In Observation ADMITTING 08/06/17 Transmitted Code Status CODE 08/06/17 Transmitted 10:59 Vital Signs (Adult) ALPESH 08/06/17 Complete 10:59 [employer] / ALPES[facility] 08/06/17 In Process Telemetry 10:59 Activity Bed Rest ALPES[facility] 08/06/17 In Process 10:59 Notify Parameters ALPES[facility] 08/06/17 In Process 10:59 Precautions ALPESH 08/06/17 In Process 10:59 Diet Heart Healthy DIET 08/06/17 Transmitted Lunch Basic Metabolic Panel LAB 08/06/17 Complete (Bmp) 10:59 Basic Metabolic Panel LAB 08/07/17 Complete (Bmp) 06:00 Cbc No Diff, Includes LAB 08/07/17 Complete Plts 06:00 Consult Nephrology CONS 08/06/17 Transmitted Oxycodone (Roxicodone) MED 08/06/17 In Process 11:00 Morphine Inj MED 08/06/17 In Process (Morphine Inj) 11:00 Heparin Inj (Heparin MED 08/06/17 In Process Inj) 11:00 Scd Bilateral/Knee ALPESH 08/06/17 Complete High 10:59 Docusate Sodium-Senna MED 08/06/17 In Process (Gianna-Colace) 21:00 Magnesium Hydroxide MED 08/06/17 In Process Liq (Milk Of Magnesi 11:00 Sennosides (Senokot) MED 08/06/17 In Process 11:00 Bisacodyl Supp MED 08/06/17 In Process (Dulcolax Supp) 11:00 Lactulose Liq MED 08/06/17 In Process (Lactulose Liq) 11:00 Acetaminophen MED 08/06/17 In Process (Tylenol) 11:00 Famotidine (Pepcid) MED 08/07/17 In Process 09:00 Folic Acid (Folate) MED 08/07/17 In Process 09:00 Insulin Detemir Inj MED 08/06/17 In Process (Levemir Inj) 21:00 Magnesium Hydroxide MED 08/06/17 In Process Liq (Milk Of Magnesi 11:00 Metoprolol Tartrate MED 08/06/17 In Process (Lopressor) 21:00 Polysaccharide Iron MED 08/06/17 In Process Complex (Nu-Iron) 21:00 Zinc Sulfate (Zinc MED 08/07/17 In Process Sulfate) 09:00 Ascorbic Acid MED 08/07/17 In Process (Vitamin C) 09:00 Ondansetron Odt MED 08/06/17 In Process (Zofran Odt) 11:00 Blood Glucose Goal ALPES[facility] 08/06/17 In Process (Criteria) 11:02 Hypoglycemia 70 Mg/Dl ALPES[facility] 08/06/17 In Process Or < 11:[address]: Prasanna ALPES[facility] 08/06/17 In Process 11:02 Dextrose 50% In Edis MED 08/06/17 In Process (Vial) Inj (D50w (Vi 11:15 Glucagon Inj MED 08/06/17 In Process (Glucagon Inj) 11:15 Insulin Aspart MED 08/06/17 In Process Supplemtl Scale 12:00 (Hub Use Only)Inp Phy CONS 08/06/17 Transmitted Cons/Ref *Albuterol Neb MED 08/06/17 Complete (*Albuterol Neb 11:55 Fentanyl Inj MED 08/06/17 Complete (Fentanyl Inj) 12:00 Misc Nursing MED 08/06/17 In Process Information 11:51 Heparin Central Flush MED 08/06/17 Complete (Heparin Central F 13:06 [facility] [place] [facility]/06/17 Complete Sodium Chlor 0.9% 250 MED 08/06/17 Complete Ml Inj (Ns 250 Ml 14:00 Anticoagulant Alert ALPES[facility] 08/06/17 In Process ^ Sling AL[facility] 08/06/17 In Process Resp Oxygen Chad C RSP 08/06/17 Logged Titrat 1-4 L Class Iv Pacu Ea 30 [facility] 08/06/17 Complete MIN General/Pacu [facility] 08/06/17 Complete Post Anesthesia Oxygen [facility] 08/06/17 Complete Post Anesthesia [facility]. [facility] 08/06/17 Complete Aerosol Bedside Glucose [facility] 08/06/17 Complete Blood Flow Rate [facility] 08/06/17 In Process 18:31 Dialysate Flow Rate [facility] 08/06/17 In Process 18:31 Dialyzer [facility] 08/06/17 In Process 18:31 Concentrate [facility] 08/06/17 In Process 18:31 Acid Concentrate [facility] 08/06/17 In Process 18:31 Length Of Dialysis AL[facility] 08/06/17 In Process 18:31 Frequency Of Dialysis [facility] 08/06/17 In Process 18:31 Dialysis Obtain ALPES[facility] 08/06/17 In Process 18:31 Hepatitis Profile LAB 08/06/17 Complete 18:31 Needle Size ALPES[facility] 08/06/17 In Process 18:31 Dialysis Schedule [facility] 08/06/17 In Process 18:31 Resp Oxygen Chad C RSP 08/06/17 Complete Titrat 1-4 L Dialysis Weight [facility] 08/06/17 In Process 18:31 ^ Obtain As Needed [facility] 08/06/17 In Process 18:31 Sodium Chlor 0.9% MED 08/06/17 In Process 1000 Ml Inj (Ns 1000 M 18:31 Heparin Inj (Heparin MED 08/06/17 In Process Inj) 18:45 Sodium Chlor 0.9% MED 08/06/17 In Process 1000 Ml Inj (Ns 1000 M 18:31 Sodium Chlor 0.9% MED 08/06/17 In Process 1000 Ml Inj (Ns 1000 M 18:31 Mannitol Inj MED 08/06/17 In Process (Mannitol Inj) 18:45 Albumin 25% Inj MED 08/06/17 In Process (Albumin 25% Inj) 18:45 Sodium Chloride 0.9% MED 08/06/17 In Process Flush (Ns Flush) 18:45 Heparin Inj (Heparin MED 08/06/17 In Process Inj) 18:45 Gentamicin Inj MED 08/06/17 In Process (Gentamicin Inj) 18:45 Ondansetron Inj MED 08/06/17 In Process (Zofran Inj) 18:45 Acetaminophen MED 08/06/17 In Process (Tylenol) 18:45 Diphenhydramine MED 08/06/17 In Process (Benadryl) 18:45 Nitroglycerin Sl MED 08/06/17 In Process (Nitrostat Sl) 18:45 Clonidine (Catapres) MED 08/06/17 In Process 18:45 Epoetin Adonay Inj MED 08/06/17 In Process (Epogen Inj) 18:45 Gelatin 12 Mm/7 Mm MED 08/06/17 In Process Top (Gelfoam 12 Mm/7 18:45 Attending Discharge DISCHARGE 08/07/17 Transmitted Order 08:39 Vital Signs Date Time Temp Pulse Resp B/P (MAP) Pulse Ox O2 Delivery O2 Flow Rate FiO2 08/07/17 04:00 97.1 94 19 105/56 (72) 100 08/07/17 01:23 100 08/07/17 00:00 97.5 93 19 110/53 (72) 100 08/06/17 20:26 99 21 08/06/17 20:00 97.9 97 19 108/58 (75) 100 08/06/17 14:30 92 18 116/58 (77) 100 Nasal Cannula 2 08/06/17 14:15 97.6 98 16 112/62 (79) 100 Nasal Cannula 2 08/06/17 14:00 97 16 94/58 (70) 100 Nasal Cannula 2 08/06/17 13:45 96 16 82/52 (62) 100 Nasal Cannula 2 08/06/17 13:30 98.0 97 18 120/57 (78) 100 08/06/17 13:30 98 15 80/45 (57) 100 Nasal Cannula 2 08/06/17 13:15 99 14 83/47 (59) 100 Nasal Cannula 2 08/06/17 13:00 102 14 113/59 (77) 100 Nasal Cannula 2 08/06/17 12:50 101 18 94/43 (60) 100 Nasal Cannula 2 08/06/17 12:45 102 16 80/41 (54) 100 Nasal Cannula 2 08/06/17 12:30 110 20 140/79 (99) 97 Nasal Cannula 2 08/06/17 12:15 105 24 106/72 (83) 100 Aerosol Mask 8 08/06/17 12:00 97 20 100/60 (73) 99 Aerosol Mask 8 08/06/17 11:45 97.8 97 14 126/68 (87) 92 Simple Mask 6 08/06/17 08:02 99.5 116 20 143/94 (110) 99 Discharge Condition: Good Discharge Disposition: Discharge Home Discharge Instructions: DIET You may resume your previous diet ACTIVITY Activity as tolerated (RIGHT Upper Extremity) NO heavy lifting over a gallon of milk for 1W - RIGHT upper extremity NO blood pressure readings or lab draws to your RIGHT upper extremity WOUND CARE Leave your incision open to air Do not apply any creams or ointments to your incision as it may loosen the surgical glue Call the office to report any increased redness, drainage or painful swelling You may shower then pat dry the incision site MEDICATIONS You may resume your home medications Any questions or concerns: Call [facility] at [facility] [phone] Lianna Marks Aug 07, 2017 08:49
[2017-08-07] MEDS ORDERED: ZINC SULFATE 220 MG CAP PEG SCH (09:00)
[2017-08-07] MEDS ORDERED: FAMOTIDINE 20 MG TAB PEG SCH (09:00)
[2017-08-07] MEDS ORDERED: FOLIC ACID 1 MG TAB PEG SCH (09:00)
[2017-08-07] MEDS ORDERED: ASCORBIC ACID 500 MG TAB PEG SCH (09:00)
--- NOTE | 2017-08-07 10:37 | HHI.NPPN ---
Subjective History of Present Illness This is a 62-year-old male with a past medical history of hypertension, cerebrovascular accident, diabetes mellitus, ischemic heart disease, chronic anemia, end-stage renal disease, on hemodialysis, who was admitted for AV fistula creation. Nephrology was called to see the patient for the management of dialysis. The patient has been on hemodialysis Sunday, Sunday, Sunday, but he was discharged from the [facility] last week and was sent home. He did not have any hemodialysis units here set up close by, so he was taken back to his own dialysis unit on Sunday instead of Sunday. The patient is not able to give any history. Most of the history was taken from the patient's . The patient was seen by me in the recovery room. According to the , the patient was in a [facility] in [place] for 8-9 months, since September of last year, and recently was discharged home, and she is in the process of getting the outpatient dialysis set up here locally. The patient has been following with Dr. Porter and was admitted for right arm AV fistula creation. Patient is mainly nonverbal. He is bedridden and not able to communicate much. He had an AV fistula done before and now just has the transposition done by Dr. Porter. Additional Remarks Patient is resting comfortably. Plans for dialysis today. (Nargis Fraga) Review of Systems General General Remarks Patient is non verbal unable to do ROS (Nargis Fraga) Objective Data Data Vital Signs Date Time Temp Pulse Resp B/P (MAP) Pulse Ox O2 Delivery O2 Flow Rate FiO2 08/07/17 08:00 98.7 103 19 137/67 (90) 98 08/07/17 04:00 97.1 94 19 105/56 (72) 100 08/07/17 01:23 100 08/07/17 00:00 97.5 93 19 110/53 (72) 100 08/06/17 20:26 99 21 08/06/17 20:00 97.9 97 19 108/58 (75) 100 08/06/17 14:30 92 18 116/58 (77) 100 Nasal Cannula 2 08/06/17 14:15 97.6 98 16 112/62 (79) 100 Nasal Cannula 2 08/06/17 14:00 97 16 94/58 (70) 100 Nasal Cannula 2 08/06/17 13:45 96 16 82/52 (62) 100 Nasal Cannula 2 08/06/17 13:30 98.0 97 18 120/57 (78) 100 08/06/17 13:30 98 15 80/45 (57) 100 Nasal Cannula 2 08/06/17 13:15 99 14 83/47 (59) 100 Nasal Cannula 2 08/06/17 13:00 102 14 113/59 (77) 100 Nasal Cannula 2 08/06/17 12:50 101 18 94/43 (60) 100 Nasal Cannula 2 08/06/17 12:45 102 16 80/41 (54) 100 Nasal Cannula 2 08/06/17 12:30 110 20 140/79 (99) 97 Nasal Cannula 2 08/06/17 12:15 105 24 106/72 (83) 100 Aerosol Mask 8 08/06/17 12:00 97 20 100/60 (73) 99 Aerosol Mask 8 08/06/17 11:45 97.8 97 14 126/68 (87) 92 Simple Mask 6 (Nargis Fraga) -: 08/07/17 0326 08/07/17 0326 Physical Exam General Appearance: No Acute Distress (Nargis Fraga) Pulmonary Resp Exam: Breath Sounds Equal, No Distress, Rhonchi (Nargis Fraga) Gastrointestinal/Abdomen GI Exam: Soft, Non-Tender (Nargis Fraga) Musculoskeletal MS Exam: Rigidity (Nargis Fraga) Integumentary Skin Exam: Clear, Warm (Nargis Fraga) Extremeties Extremities Exam: Trace Edema (Nargis Fraga) Neurologic Neuro Remarks non verbal (Nargis Fraga) Assessment/Plan Assessment Summary: Anemia of CKD, End Stage Renal Disease Problem List: (1) ESRD (end stage renal disease) on dialysis ICD Codes: N18.6 - End stage renal disease; Z99.2 - Dependence on renal dialysis Plan: The patient is on hemodialysis Sunday, Sunday and Sunday however last hemodialysis treatment on Sunday. Plan Dialysis today remove fluid as tolerated via HD catheter Epogen with dialysis Outpatient hemodialysis has to be set up still. Otherwise, he can go back to his previous center in [place] where he was dialyzed last week. (2) AVF (arteriovenous fistula) ICD Codes: I77.0 - Arteriovenous fistula, acquired Plan: POD #1 (3) Diabetes mellitus ICD Codes: E11.9 - Type 2 diabetes mellitus without complications Status: Chronic Plan: Maintain BS 140 to 180 mg/dl (Nargis Fraga) Problem List: (1) ESRD (end stage renal disease) on dialysis ICD Codes: N18.6 - End stage renal disease; Z99.2 - Dependence on renal dialysis Plan: The patient is on hemodialysis Sunday, Sunday and Sunday however last hemodialysis treatment on Sunday. Plan Dialysis today remove fluid as tolerated via HD catheter Epogen with dialysis Outpatient hemodialysis has to be set up still. Otherwise, he can go back to his previous center in [place] where he was dialyzed last week. Patient seen and examined, agree with above. Patient to continue HD at his center at [place]. (2) AVF (arteriovenous fistula) ICD Codes: I77.0 - Arteriovenous fistula, acquired Plan: POD #1 (3) Diabetes mellitus ICD Codes: E11.9 - Type 2 diabetes mellitus without complications Status: Chronic Plan: Maintain BS 140 to 180 mg/dl (Renee Bhat MD) Nargis Fraga Aug 07, 2017 10:37 Renee Bhat MD Aug 08, 2017 19:07
[2017-08-07 16:00] VITALS: BP 102/62; PULSE 92; RESP 16; TEMP 98.8; O2SAT 98
== END 2017-08-07 17:38 ==
LOC: HSDC 07:04 → HSDI 11:02 → N07A 15:16
PROVIDERS: ADMIT Surgery; ATTEND Surgery
DX: I77.0 Arteriovenous fistula, acquired (principal); N18.6 End stage renal disease; I12.0 Hypertensive chronic kidney disease with stage 5 chronic kidney disease or end stage renal disease; I25.10 Atherosclerotic heart disease of native coronary artery without angina pectoris; E11.22 Type 2 diabetes mellitus with diabetic chronic kidney disease; D63.1 Anemia in chronic kidney disease; Z74.01 Bed confinement status; Z86.73 Personal history of transient ischemic attack (TIA), and cerebral infarction without residual deficits; Z79.4 Long term (current) use of insulin
CPT/HCPCS: 01844; 36825; 80048; 80074; 82948; 85025; 85027; 85610; 86850; 86900; 86901; 90935; 94664; 96372; 96374; 96375; C1768; G0378; J1642; J1644; J2370; J2405; J2710; J2720; J3010; J3370; J3480; J7040; J7050; J7613

== ENCOUNTER 2017-08-29 09:19 | Emergency (ER) | payer OTHER ==
[2017-08-29] VITALS (7 sets, daily range): BP systolic 122–159; BP diastolic 73–111; PULSE 105–141; RESP 17–20; TEMP 99–99.3; O2SAT 96–100
[~2017-08-29] VITALS: Ht 182.9 cm; Wt 95.0 kg
[2017-08-29] MEDS ORDERED: SODIUM CHLOR 0.9% 250 ML INJ 250 ML IV ONE ×2 (10:00→10:30)
[2017-08-29] MEDS ORDERED: SODIUM CHLOR 0.9% 1000 ML INJ 1,000 ML IV PRN (10:58)
[2017-08-29] MEDS ORDERED: SODIUM CHLOR 0.9% 1000 ML INJ 1,000 ML OTHER PRN ×2 (10:58)
[2017-08-29] MEDS ORDERED: cloNIDine HCL 0.1 MG TAB PO PRN (11:00)
[2017-08-29] MEDS ORDERED: MANNITOL 12.5 GM/50 ML VIAL IV PRN (11:00)
[2017-08-29] MEDS ORDERED: NITROGLYCERIN 0.4 MG SL 25 TABS/BTL SL PRN (11:00)
[2017-08-29] MEDS ORDERED: GELATIN 12 MM/7 MM FOAM TOP PRN (11:00)
[2017-08-29] MEDS ORDERED: ALBUMIN 25% INJ 100 ML IV PRN (11:00)
[2017-08-29] MEDS ORDERED: HEPARIN SODIUM - IV 10,000 UNITS/10 ML VIAL PRN (11:00)
[2017-08-29] MEDS ORDERED: ACETAMINOPHEN 325 MG TAB PO PRN (11:00)
[2017-08-29] MEDS ORDERED: GENTAMICIN SULFATE 20 MG/2 ML VIAL OTHER PRN (11:00)
[2017-08-29] MEDS ORDERED: ONDANSETRON ODT 4 MG TAB PO PRN (11:00)
[2017-08-29] MEDS ORDERED: diphenhydrAMINE HCL 25 MG CAP PO PRN (11:00)
[2017-08-29] MEDS ORDERED: EPOETIN ALFA 10,000 UNITS/ML VIAL IV PUSH PRN (11:00)
[2017-08-29] MEDS ORDERED: HEPARIN SODIUM - IV 10,000 UNITS/10 ML VIAL IV FLUSH PRN (11:00)
[2017-08-29] MEDS ORDERED: SODIUM CHLORIDE 0.9% FLUSH 10 ML FLUSH IV FLUSH PRN (11:00)
--- NOTE | 2017-08-29 11:23 | PD ---
HPI Chief Complaint: Abnormal Results Time Seen by Provider: 10:19 Travel History International Travel<30 days: No Contact w/Intl Traveler<30days: No Traveled to known affect area: No History of Present Illness HPI This 62-year-old man presents to the emergency department brought in by family for anemia. Patient has a history of CVA, end-stage renal disease, CAD, diabetes, hypertension, and is nonverbal. He gets dialysis regularly with Dr. Tej Little, Sunday. He has a port in his right chest. He had blood work done on Sunday, showed hemoglobin of 6.6. He has had frequent anemia recently attributed to his chronic disease, with transfusions every other month or so. No history of GI bleed. No other complaints at this time. No aggravating or alleviating factors. No pain. Constant since onset. History Past Medical History Narrative Medical CVA End-stage renal disease, on HD Sunday, followed by Dr. Jesse DAVIS, with [place] Diabetes Hypertension Tetanus Vaccination: Unknown Influenza Vaccination: Yes Social History Alcohol Use: No Tobacco Use: No Allergies-Medications (Allergen,Severity, Reaction): Coded Allergies: acetaminophen (Verified Allergy, Intermediate, itch, 08/29/17) hydrocodone (Verified Allergy, Intermediate, itch, 08/29/17) penicillin G (Unverified Allergy, Mild, "I GO CRAZY", 08/29/17) Reported Meds & Prescriptions Reported Meds & Active Scripts Active Reported Zofran (Ondansetron HCl) 4 Mg Tab 4 Mg PEG Q4HR PRN Vancomycin Inj (Vancomycin HCl) 1 Gram Inj 1,000 Mg IV MO,WE,FR BY DIALYSIS NURSE Tylenol (Acetaminophen) 325 Mg Tab 325 Mg PEG Q6H PRN Nu-Iron 150 (Polysaccharide Iron Complex) 150 Mg Iron Cap 150 Mg PEG Q12HR Metoprolol Tartrate 50 Mg Tab 50 Mg PEG BID ONLY SUN, TU, [place], AND SAT Folic Acid 1 Mg Tablet 1 Tab PEG DAILY Famotidine 20 Mg Tab 20 Mg PEG DAILY Humalog Inj (Insulin Human Lispro) 1,000 Unit/10 Ml Vial 2-12 Units SQ ACHS Max dose at bedtime:( )units; sugars < 70,(0)units; sugars 150-199,(2)units; sugars 200-249,(4)units; sugars 250-299,(7)units; sugars 300-349,(10)units; sugars more than 349,(12)units. Pro-Stat (Amino Acids-Protein Hydrolysat) 15 Gram-100 Kcal/30 Ml Liq 60 Ml G- TUBE BID Levemir Inj (Insulin Detemir) 1,000 unit/ 10 ML Vial 10 Units SQ Q12HR Do not mix with any other Insulin. Zinc Sulfate 220 Mg Tab 220 Mg PEG DAILY Era-Boni Rx (B-Complex W/ C & Folic Acid) 1 Tab 1 Tab PEG DAILY Review of Systems Except as stated in HPI: all other systems reviewed are Neg Physical Exam Narrative GENERAL: 62-year-old man, contraction deformities, nonverbal, wheelchair bound. SKIN: Focused skin assessment warm/dry. HEAD: Atraumatic. Normocephalic. EYES: Pupils equal and round. No scleral icterus. No injection or drainage. ENT: No nasal bleeding or discharge. Mucous membranes pink and moist. NECK: Trachea midline. No JVD. CARDIOVASCULAR: Warm and well-perfused. RESPIRATORY: Normal rate and effort. GASTROINTESTINAL: Abdomen soft, non-tender, nondistended. Hepatic and splenic margins not palpable. MUSCULOSKELETAL: No obvious deformities. No edema. NEUROLOGICAL: Awake and alert, but nonverbal. Minimal purposeful movement. Wheelchair-bound. Data Data Last Documented VS Vital Signs Date Time Temp Pulse Resp B/P (MAP) Pulse Ox O2 Delivery O2 Flow Rate FiO2 08/29/17 16:10 99.0 139 17 141/111 08/29/17 14:35 96 Room Air Orders Orders Complete Blood Count With Diff (08/29/17 09:55) Basic Metabolic Panel (Bmp) (08/29/17 09:55) Iv Access Insert/Monitor (08/29/17 09:55) Type And Screen (08/29/17 09:55) Sodium Chlor 0.9% 250 Ml Inj (Ns 250 Ml (08/29/17 10:00) Sodium Chlor 0.9% 250 Ml Inj (Ns 250 Ml (08/29/17 10:30) Red Blood Cells (Rbc) (08/29/17 10:22) Blood Flow Rate (08/29/17 10:58) Dialysate Flow Rate (08/29/17 10:58) Dialyzer (08/29/17 10:58) Concentrate (08/29/17 10:58) Acid Concentrate (08/29/17 10:58) Length Of Dialysis (08/29/17 10:58) Frequency Of Dialysis (08/29/17 10:58) Dialysis Obtain (08/29/17 10:58) Needle Size (08/29/17 10:58) Dialysis Schedule (08/29/17 10:58) Resp Oxygen Chad C Titrat 1-4 L (08/29/17 ) Dialysis Weight (08/29/17 10:58) ^ Obtain As Needed (08/29/17 10:58) Sodium Chlor 0.9% 1000 Ml Inj (Ns 1000 M (08/29/17 10:58) Heparin Inj (Heparin Inj) (08/29/17 11:00) Sodium Chlor 0.9% 1000 Ml Inj (Ns 1000 M (08/29/17 10:58) Sodium Chlor 0.9% 1000 Ml Inj (Ns 1000 M (08/29/17 10:58) Mannitol Inj (Mannitol Inj) (08/29/17 11:00) Albumin 25% Inj (Albumin 25% Inj) (08/29/17 11:00) Sodium Chloride 0.9% Flush (Ns Flush) (08/29/17 11:00) Heparin Inj (Heparin Inj) (08/29/17 11:00) Gentamicin Inj (Gentamicin Inj) (08/29/17 11:00) Acetaminophen (Tylenol) (08/29/17 11:00) Diphenhydramine (Benadryl) (08/29/17 11:00) Nitroglycerin Sl (Nitrostat Sl) (08/29/17 11:00) Clonidine (Catapres) (08/29/17 11:00) Epoetin Adonay Inj (Epogen Inj) (08/29/17 11:00) Gelatin 12 Mm/7 Mm Top (Gelfoam 12 Mm/7 (08/29/17 11:00) Ondansetron Odt (Zofran Odt) (08/29/17 11:00) Ed Discharge Order (08/29/17 18:10) Labs Laboratory Tests Test 08/29/17 11:55 White Blood Count 20.1 TH/MM3 Red Blood Count 2.90 MIL/MM3 Hemoglobin 6.5 GM/DL Hematocrit 22.6 % Mean Corpuscular Volume 78.0 FL Mean Corpuscular Hemoglobin 22.5 PG Mean Corpuscular Hemoglobin Concent 28.9 % Red Cell Distribution Width 18.0 % Platelet Count 448 TH/MM3 Mean Platelet Volume 7.1 FL Neutrophils (%) (Auto) 87.2 % Lymphocytes (%) (Auto) 7.2 % Monocytes (%) (Auto) 4.6 % Eosinophils (%) (Auto) 0.2 % Basophils (%) (Auto) 0.8 % Neutrophils # (Auto) 17.5 TH/MM3 Lymphocytes # (Auto) 1.4 TH/MM3 Monocytes # (Auto) 0.9 TH/MM3 Eosinophils # (Auto) 0.0 TH/MM3 Basophils # (Auto) 0.2 TH/MM3 CBC Comment DIFF FINAL Differential Comment Blood Urea Nitrogen 38 MG/DL Creatinine 4.12 MG/DL Random Glucose 144 MG/DL Calcium Level 8.9 MG/DL Sodium Level 139 MEQ/L Potassium Level 3.2 MEQ/L Chloride Level 100 MEQ/L Carbon Dioxide Level 27.1 MEQ/L Anion Gap 12 MEQ/L Estimat Glomerular Filtration Rate 18 ML/MIN MDM Medical Decision Making Medical Screen Exam Complete: Yes Emergency Medical Condition: Yes Interpretation(s) Labs: CBC remarkable for white count 20,000, hemoglobin 6.5 BMP is unremarkable, elevated BUN and creatinine. Differential Diagnosis Anemia, bleed, end-stage renal disease, dialysis, other Narrative Course Medical decision making 62-year-old male presents to the emergency department with hemoglobin 6.6, needs dialysis today. Very difficult IV access. I spoke with Dr. Bhat. Will obtain type and cross here, patient be taken to dialysis, will transfuse with dialysis, discharge after. FINAL: Now successful. Given blood. White counseled bit elevated. Possibly related to anemia. No other history of infectious symptoms. Recommend outpatient follow-up. Diagnosis Primary Impression: Anemia Patient Instructions: General Instructions Additional Instructions: Continue current medications. Follow-up with her primary doctor as planned. Return to the emergency department for any new or worsening symptoms. Med/Other Pt SpecificInfo: No Change to Meds Disposition: 01 DISCHARGE HOME Condition: Stable Stephen So MD August 29, 2017 11:23
[2017-08-29 12:12] LABS: AUTOMATED NEUTROPHIL # 17.5 TH/MM3 (1.8-7.7); BASOPHIL # 0.2 TH/MM3 (0-0.2); BASOPHIL % 0.8 % (0.0-2.0); EOSINOPHIL % 0.2 % (0.0-4.0); HEMATOCRIT 22.6 % (39.0-51.0); LYMPH % 7.2 % (9.0-44.0); LYMPHOCYTE # 1.4 TH/MM3 (1.0-4.8); MEAN CORPUSCULAR HEMOGLOBIN 22.5 PG (27.0-34.0); MEAN PLATELET VOLUME 7.1 FL (7.0-11.0); MONO % 4.6 % (0.0-8.0); MONOCYTE # 0.9 TH/MM3 (0-0.9); NEUT % 87.2 % (16.0-70.0); PLATELET COUNT 448 TH/MM3 (150-450); WHITE BLOOD COUNT 20.1 TH/MM3 (4.0-11.0)
[2017-08-29 12:15] LABS: MEAN CORPUSCULAR HGB CONC 28.9 % (32.0-36.0)
[2017-08-29 12:19] LABS: HEMOGLOBIN 6.5 GM/DL (13.0-17.0)
[2017-08-29 12:39] LABS: BICARBONATE 27.1 MEQ/L (21.0-32.0); CALCIUM 8.9 MG/DL (8.5-10.1); CREATININE 4.12 MG/DL (0.60-1.30)
--- NOTE | 2017-08-29 16:41 | PD.CONS ---
HPI Service Nephrology Consult Requested By Reason for Consult End stage renal disease on hemodialysis Primary Care Physician Unknown History of Present Illness Patient is a 62-year-old man presents to the emergency department brought in by family for anemia. Blood work per [facility] showed a hemoglobin of 6.6. Patient has a history of CVA, end-stage renal disease, CAD, diabetes, hypertension, and is nonverbal. He gets dialysis regularly on Sunday, Sunday, Sunday. He has a port in his right chest. Per records he has had frequent anemia. No history of GI bleed. No other complaints at this time. Nephrology was consulted for the management of End stage renal disease on hemodialysis. Patient seen during dialysis. (Nargis Fraga) Review of Systems ROS Limitations: Unresponsive (Nargis Fraga) Past Family Social History Allergies: Coded Allergies: acetaminophen (Verified Allergy, Intermediate, itch, 08/29/17) hydrocodone (Verified Allergy, Intermediate, itch, 08/29/17) penicillin G (Unverified Allergy, Mild, "I GO CRAZY", 08/29/17) Past Medical History CVA End-stage renal disease, on HD Sunday, followed by Dr. Jesse DAVIS, with [place] Diabetes Hypertension Past Surgical History AVF right arm Perma cath left chest wall Active Ordered Medications Current Medications Medications (Trade) Dose Ordered Sig/Isabelle Route Start Time Stop Time Status Last Admin Sodium Chloride 250 ml @ 15 mls/hr ONCE ONCE IV 08/29/17 10:00 08/30/17 02:39 Sodium Chloride 250 ml @ 15 mls/hr ONCE ONCE IV 08/29/17 10:30 08/30/17 03:09 Sodium Chloride 1,000 ml @ 0 mls/hr Q0M PRN OTHER 08/29/17 10:58 (Heparin Inj) 8,000 units UNSCH PRN IV FLUSH 08/29/17 11:00 Sodium Chloride 1,000 ml @ 200 mls/hr Q5H PRN IV 08/29/17 10:58 Sodium Chloride 1,000 ml @ 0 mls/hr Q0M PRN OTHER 08/29/17 10:58 (Mannitol Inj) 12.5 gm UNSCH PRN IV 08/29/17 11:00 Albumin Human 100 ml @ 60 mls/hr UNSCH PRN IV 08/29/17 11:00 (NS Flush) 5 ml UNSCH PRN IV FLUSH 08/29/17 11:00 (Heparin Inj) UNSCH PRN .XX 08/29/17 11:00 (Gentamicin Inj) 20 mg UNSCH PRN OTHER 08/29/17 11:00 (Zofran Odt) 4 mg UNSCH PRN PO 08/29/17 11:00 (Tylenol) 650 mg UNSCH PRN PO 08/29/17 11:00 (Benadryl) 25 mg UNSCH PRN PO 08/29/17 11:00 (Nitrostat Sl) 0.4 mg UNSCH PRN SL 08/29/17 11:00 (Catapres) 0.1 mg UNSCH PRN PO 08/29/17 11:00 (Epogen Inj) 10,000 units UNSCH PRN IV PUSH 08/29/17 11:00 (Gelfoam 12 Mm/7 Mm Top) 1 foam UNSCH PRN TOP 08/29/17 11:00 Family History unable to obtain Social History Unable to obtain (Nargis Fraga) Physical Exam Vital Signs Vital Signs Date Time Temp Pulse Resp B/P (MAP) Pulse Ox O2 Delivery O2 Flow Rate FiO2 08/29/17 16:10 99.0 139 17 141/111 08/29/17 15:38 99.0 138 18 130/89 08/29/17 15:33 99.0 141 20 134/76 08/29/17 15:20 99.3 134 20 134/100 08/29/17 14:35 105 18 159/96 (117) 96 Room Air 08/29/17 09:53 99.3 129 18 147/96 (113) 100 Room Air 08/29/17 09:38 18 Room Air 08/29/17 09:22 99.3 127 19 122/73 (89) 98 Physical Exam GENERAL: Unresponsive SKIN: Warm and dry. HEAD: Normocephalic. EYES: No scleral icterus. No injection or drainage. NECK: Supple, trachea midline. No JVD or lymphadenopathy. CARDIOVASCULAR: Regular rate and rhythm without murmurs, gallops, or rubs. RESPIRATORY: Breath sounds diminished equal bilaterally. No accessory muscle use. GASTROINTESTINAL: Abdomen soft, non-tender, nondistended. MUSCULOSKELETAL: No cyanosis, contractured BACK: Nontender without obvious deformity. No CVA tenderness. Laboratory Laboratory Tests Test 08/29/17 11:55 White Blood Count 20.1 Red Blood Count 2.90 Hemoglobin 6.5 Hematocrit 22.6 Mean Corpuscular Volume 78.0 Mean Corpuscular Hemoglobin 22.5 Mean Corpuscular Hemoglobin Concent 28.9 Red Cell Distribution Width 18.0 Platelet Count 448 Mean Platelet Volume 7.1 Neutrophils (%) (Auto) 87.2 Lymphocytes (%) (Auto) 7.2 Monocytes (%) (Auto) 4.6 Eosinophils (%) (Auto) 0.2 Basophils (%) (Auto) 0.8 Neutrophils # (Auto) 17.5 Lymphocytes # (Auto) 1.4 Monocytes # (Auto) 0.9 Eosinophils # (Auto) 0.0 Basophils # (Auto) 0.2 CBC Comment DIFF FINAL Differential Comment Blood Urea Nitrogen 38 Creatinine 4.12 Random Glucose 144 Calcium Level 8.9 Sodium Level 139 Potassium Level 3.2 Chloride Level 100 Carbon Dioxide Level 27.1 Anion Gap 12 Estimat Glomerular Filtration Rate 18 (Nargis Fraga) Result Diagram: 08/29/17 1155 08/29/17 1155 Assessment and Plan Problem List: (1) ESRD (end stage renal disease) on dialysis ICD Codes: N18.6 - End stage renal disease; Z99.2 - Dependence on renal dialysis Plan: Seen during hemodialysis tolerating well Plan for UF of 3 liters. Epogen with dialysis (2) Anemia ICD Codes: D64.9 - Anemia, unspecified Plan: Transfused 2 units of PRBC (Nargis Fraga) Problem List: (1) ESRD (end stage renal disease) on dialysis ICD Codes: N18.6 - End stage renal disease; Z99.2 - Dependence on renal dialysis Plan: Seen during hemodialysis tolerating well Plan for UF of 3 liters. Epogen with dialysis. Patient seen and examined, agree with above. Patient seen during HD, tolerating well, transfusion with HD. (2) Anemia ICD Codes: D64.9 - Anemia, unspecified Plan: Transfused 2 units of PRBC (Renee Bhat MD) Nargis Fraga August 29, 2017 16:41 Renee Bhat MD August 29, 2017 20:36
== END 2017-08-29 18:52 | disposition home or self-care (01) ==
LOC: NEPE 09:19
DX: N18.6 End stage renal disease (principal); D63.8 Anemia in other chronic diseases classified elsewhere; I12.0 Hypertensive chronic kidney disease with stage 5 chronic kidney disease or end stage renal disease; I25.10 Atherosclerotic heart disease of native coronary artery without angina pectoris; E11.22 Type 2 diabetes mellitus with diabetic chronic kidney disease; Z99.2 Dependence on renal dialysis; Z86.73 Personal history of transient ischemic attack (TIA), and cerebral infarction without residual deficits; Z88.0 Allergy status to penicillin; Z88.5 Allergy status to narcotic agent; Z79.4 Long term (current) use of insulin; Z79.899 Other long term (current) drug therapy
CPT/HCPCS: 36430; 80048; 85025; 86850; 86900; 86901; 86920; 90935; 96374; 99284; J1580; J1644; J7030; P9016; G0257